=== PATIENT | female | born 1985 | race Caucasian/White ===

== ENCOUNTER 2017-05-29 02:26 | Emergency (ER) | payer SELFPAY ==
[~2017-05-29] VITALS: Ht 157.5 cm; Wt 56.7 kg
--- OUTSIDE RECORDS SUMMARY | 2017-05-29 02:34 | XMS REPORT | Continuity of Care Document ---
Author Author [facility] Organization [facility] Address Unknown Phone Unavailable Allergies Active Description Code Type Severity Reaction Onset Reported/Identified Relationship to Patient Clinical Status Yes ciprofloxacin ciprofloxacin Drug Allergy Unknown unknown 07/31/2016 Medications There is no data. Problems There is no data. Procedures There is no data. <section xmlns="urn:hl7-org:v3" xmlns:xsi="http:// www.[email or web address]/2001/XMLSchema-instance"> <templateId root= "[id number]" /> <templateId root= "[id number]" /> <code codeSystemName="LOINC" codeSystem= "[id number]" code="32369-0" displayName="Results" /> <title>Results< /title> <text> <table> <thead> <tr> <th>Test</th> <th>Result</th> <th>Range</th> </tr> </thead> < tbody> <tr> <th colspan="10">URINALYSIS, ROUTINE - 12/27/14 21: 55</th> </tr> <tr> <td>UA LEUKOCYTE ESTERASE DIPSTICK</td > <td>2+ </td> <td>NEGATIVE</td> </tr> <tr> <td>UA NITRITE DIPSTICK</td> <td>POSITIVE </td> <td> NEGATIVE</td> </tr> <tr> <td>UA PROTEIN DIPSTICK</td> <td>1+ </td> <td>NEGATIVE</td> </tr> <tr> <td>UA GLUCOSE DIPSTICK</td> <td>NEGATIVE </td> <td>NEGATIVE </td> </tr> <tr> <td>UA KETONE DIPSTICK</td> <td >NEGATIVE </td> <td>NEGATIVE</td> </tr> <tr> <td >UA UROBILINOGEN DIPSTICK</td> <td>NORMAL </td> <td>NORMAL</td > </tr> <tr> <td>UA BILIRUBIN DIPSTICK</td> <td> NEGATIVE </td> <td>NEGATIVE</td> </tr> <tr> <td> UA BLOOD DIPSTICK</td> <td>TRACE </td> <td>NEGATIVE</td> </tr> <tr> <td>UA SPECIFIC GRAVITY</td> <td>1.015 </ td> <td>1.015-1.025</td> </tr> <tr> <td>UR PH</ td> <td>6.0 </td> <td>5.0-7.0</td> </tr> <tr> <td>Microbiology</td> <td> </td> <td /> </tr> <tr> < colspan="10">UA MICROSCOPIC - 12/27/14 21:55</th> </tr> <tr> <td>UA EPITHELIAL CELLS</td> <td>2+ epi/ hpf</td> <td>0 - 1+</td> </tr> <tr> <td>UA RBC</ td> <td>0 rbc/hpf</td> <td>0 - 3</td> </tr> <tr > <td>UA VOLUME FOR EXAM</td> <td>12.0 mL</td> <td>( 12mL STD)</td> </tr> <tr> <td>UA WBC</td> <td>20 -50 wbc/hpf</td> <td>0 - 5</td> </tr> <tr> <td> WBC CLUMPS</td> <td>PRESENT </td> <td>NEGATIVE</td> </ tr> <tr> <th colspan="10">UR TEST - 12/27/14 21:55</th > </tr> <tr> <td>UR TEST</td> <td> NEGATIVE </td> <td>NEGATIVE</td> </tr> <tr> <td> Microbiology</td> <td> </td> <td /> </tr> <tr> <th colspan="10">UR TEST - 01/01/15 09:40</th> </tr> <tr> <td>UR TEST</td> <td>NEGATIVE </td> <td>NEGATIVE</td> </tr> <tr> <td>Microbiology</td> <td> </td> <td /> </tr> <tr> <th colspan="10">URINALYSIS, ROUTINE - 01/01/15 09:40</th> </tr> <tr> <td>UA LEUKOCYTE ESTERASE DIPSTICK</td> <td>TRACE </td> <td>NEGATIVE</td> </tr> <tr> <td>UA NITRITE DIPSTICK </td> <td>NEGATIVE </td> <td>NEGATIVE</td> </tr> <tr> <td>UA PROTEIN DIPSTICK</td> <td>2+ </td> <td> NEGATIVE</td> </tr> <tr> <td>UA GLUCOSE DIPSTICK</td> <td>NEGATIVE </td> <td>NEGATIVE</td> </tr> <tr> <td>UA KETONE DIPSTICK</td> <td>2+ </td> <td>NEGATIVE< /td> </tr> <tr> <td>UA UROBILINOGEN DIPSTICK</td> <td>2+ </td> <td>NORMAL</td> </tr> <tr> <td> UA BILIRUBIN DIPSTICK</td> <td>1+ </td> <td>NEGATIVE</td> </tr> <tr> <td>UA BLOOD DIPSTICK</td> <td>TRACE </ td> <td>NEGATIVE</td> </tr> <tr> <td>UA SPECIFIC GRAVITY</td> <td>1.015 </td> <td>1.015-1.025</td> </tr> <tr> <td>UR PH</td> <td>6.0 </td> < td>5.0-7.0</td> </tr> <tr> <td>Microbiology</td> <td> </td> <td /> </tr> <tr> <th colspan="10"> UA MICROSCOPIC - 01/01/15 09:40</th> </tr> <tr> <td>UA BACTERIA</td> <td>2+ </td> <td>NEGATIVE</td> </tr> <tr> <td>UA EPITHELIAL CELLS</td> <td>1+ epi/hpf</td> <td>0 - 1+</td> </tr> <tr> <td>UA MUCUS</td> <td>1+ </td> <td>NEG TO 1+</td> </tr> <tr> < td>UA RBC</td> <td>0-3 rbc/hpf</td> <td>0 - 3</td> </tr > <tr> <td>UA VOLUME FOR EXAM</td> <td>12.0 mL</td> <td>(12mL STD)</td> </tr> <tr> <td>UA WBC</td> <td>10-20 wbc/hpf</td> <td>0 - 5</td> </tr> <tr> <th colspan="10">CBC W/DIFF - 01/01/15 10:50</th> </tr> < tr> <td>COMMENT</td> <td>REVIEWED </td> <td /> </tr> <tr> <td>GRANULOCYTE #</td> <td>5.3 k/cumm</td > <td>2.0-9.0</td> </tr> <tr> <td>GRANULOCYTE &# 37;</td> <td>80 %</td> <td>50-75</td> </tr> <tr> <td>LYMPHOCYTE #</td> <td>0.9 k/cumm</td> <td> 1.0-4.0</td> </tr> <tr> <td>LYMPHOCYTE %</td> <td>14 %</td> <td>20-30</td> </tr> <tr> < td>MEAN CELL HGB</td> <td>21.0 pg</td> <td>27.0-33.0</td> </tr> <tr> <td>MEAN CELL HGB CONCENTRATION</td> <td >30.9 g/dL</td> <td>32.0-37.0</td> </tr> <tr> < td>MEAN CELL VOLUME</td> <td>67.8 fl</td> <td>80.0-100.0</td> </tr> <tr> <td>MONOCYTE #</td> <td>0.4 k/cumm</ td> <td>0.1-1.0</td> </tr> <tr> <td>MONOCYTE &# 37;</td> <td>6 %</td> <td>4-6</td> </tr> <tr > <td>OVALOCYTES</td> <td>NOTED </td> <td /> < /tr> <tr> <td>RED BLOOD CELL</td> <td>4.72 m/cumm</td> <td>4.00-6.00</td> </tr> <tr> <td>RED CELL DISTRIBUTION WIDTH</td> <td>22.4 %</td> <td>11.0-15.6</td > </tr> <tr> <td>WHITE BLOOD CELL</td> <td>6.6 k /cumm</td> <td>5.0-10.0</td> </tr> <tr> <td> HEMOGLOBIN</td> <td>9.9 gm/dL</td> <td>12.0-16.0</td> < /tr> <tr> <td>HEMATOCRIT</td> <td>32.0 %</td> <td>37.0-47.0</td> </tr> <tr> <td>PLATELET COUNT</td > <td>183 k/cumm</td> <td>150-450</td> </tr> <tr > <td>Microbiology</td> <td> </td> <td /> </tr > <tr> <th colspan="10">METABOLIC PANEL, BASIC - 01/01/15 10:50< /th> </tr> <tr> <td>POTASSIUM</td> <td>2.7 mmol/ L</td> <td>3.5-5.3</td> </tr> <tr> <td>EST GFR ( MDRD)</td> <td>> 60 mL/min</td> <td>> 59</td> </ tr> <tr> <td>ANION GAP</td> <td>12 mmol/L</td> <td>5-15</td> </tr> <tr> <td>EST CrCl (CG)</td> <td>> 60 mL/min</td> <td>> 59</td> </tr> <tr> <td>GLUCOSE</td> <td>78 mg/dL</td> <td>70-99</td> </tr> <tr> <td>CALCIUM</td> <td>9.5 mg/dL</td> <td>8.5-10.1</td> </tr> <tr> <td>BLOOD UREA NITROGEN</td> <td>14 mg/dL</td> <td>7-20</td> </tr> <tr> <td>CREATININE</td> <td>0.8 mg/dL</td> <td> 0.6-1.0</td> </tr> <tr> <td>SODIUM</td> <td>136 mmol/L</td> <td>135-148</td> </tr> <tr> <td> CHLORIDE</td> <td>97 mmol/L</td> <td>98-110</td> </tr> <tr> <td>CARBON DIOXIDE</td> <td>27 mmol/L</td> <td>21-32</td> </tr> <tr> <td>Microbiology</td> <td> </td> <td /> </tr> <tr> < colspan= "10">URINALYSIS, ROUTINE - 01/04/15 10:10</th> </tr> <tr> <td>UA LEUKOCYTE ESTERASE DIPSTICK</td> <td>NEGATIVE </td> < td>NEGATIVE</td> </tr> <tr> <td>UA NITRITE DIPSTICK</td> <td>NEGATIVE </td> <td>NEGATIVE</td> </tr> <tr > <td>UA PROTEIN DIPSTICK</td> <td>NEGATIVE </td> <td >NEGATIVE</td> </tr> <tr> <td>UA GLUCOSE DIPSTICK</td> <td>NEGATIVE </td> <td>NEGATIVE</td> </tr> <tr> <td>UA KETONE DIPSTICK</td> <td>2+ </td> <td>NEGATIVE </td> </tr> <tr> <td>UA UROBILINOGEN DIPSTICK</td> <td>NORMAL </td> <td>NORMAL</td> </tr> <tr> <td>UA BILIRUBIN DIPSTICK</td> <td>1+ </td> <td>NEGATIVE</td> </tr> <tr> <td>UA BLOOD DIPSTICK</td> <td> TRACE </td> <td>NEGATIVE</td> </tr> <tr> <td>UA SPECIFIC GRAVITY</td> <td>1.015 </td> <td>1.015-1.025</td> </tr> <tr> <td>UR PH</td> <td>6.0 </td> < td>5.0-7.0</td> </tr> <tr> <td>Microbiology</td> <td> </td> <td /> </tr> <tr> < colspan="10"> UA MICROSCOPIC - 01/04/15 10:10</th> </tr> <tr> <td>UA BACTERIA</td> <td>2+ </td> <td>NEGATIVE</td> </tr> <tr> <td>UA EPITHELIAL CELLS</td> <td>2+ epi/hpf</td> <td>0 - 1+</td> </tr> <tr> <td>UA MUCUS</td> <td>3+ </td> <td>NEG TO 1+</td> </tr> <tr> < td>UA RBC</td> <td>0-3 rbc/hpf</td> <td>0 - 3</td> </tr > <tr> <td>UA VOLUME FOR EXAM</td> <td>12.0 mL</td> <td>(12mL STD)</td> </tr> <tr> <td>UA WBC</td> <td>0-1 wbc/hpf</td> <td>0 - 5</td> </tr> <tr> < colspan="10">UR TEST - 01/04/15 10:11</th> </tr> <tr> <td>UR TEST</td> <td>NEGATIVE </td> <td>NEGATIVE</td> </tr> <tr> <td>Microbiology</td> <td> </td> <td /> </tr> <tr> < colspan ="10">CBC W/DIFF - 01/04/15 11:32</th> </tr> <tr> <td> BASOPHIL #</td> <td>0.0 k/cumm</td> <td>0.0-0.2</td> </ tr> <tr> <td>BASOPHIL %</td> <td>1 %</td> <td>0-1</td> </tr> <tr> <td>EOSINOPHIL #</td> <td>0.1 k/cumm</td> <td>0.1-0.5</td> </tr> <tr> <td>EOSINOPHIL %</td> <td>1 %</td> <td>2-4</td> </tr> <tr> <td>GRANULOCYTE #</td> <td>3.0 k/cumm </td> <td>2.0-9.0</td> </tr> <tr> <td> GRANULOCYTE %</td> <td>57 %</td> <td>50-75</td> </tr> <tr> <td>LYMPHOCYTE #</td> <td>1.8 k/cumm</td> <td>1.0-4.0</td> </tr> <tr> <td>LYMPHOCYTE &#37 ;</td> <td>34 %</td> <td>20-30</td> </tr> < tr> <td>MEAN CELL HGB</td> <td>20.4 pg</td> <td>27.0- 33.0</td> </tr> <tr> <td>MEAN CELL HGB CONCENTRATION</td > <td>30.3 g/dL</td> <td>32.0-37.0</td> </tr> < tr> <td>MEAN CELL VOLUME</td> <td>67.4 fl</td> <td> 80.0-100.0</td> </tr> <tr> <td>MONOCYTE #</td> < td>0.4 k/cumm</td> <td>0.1-1.0</td> </tr> <tr> < td>MONOCYTE %</td> <td>7 %</td> <td>4-6</td> </ tr> <tr> <td>OVALOCYTES</td> <td>NOTED </td> < td /> </tr> <tr> <td>RED BLOOD CELL</td> <td> 3.77 m/cumm</td> <td>4.00-6.00</td> </tr> <tr> < td>RED CELL DISTRIBUTION WIDTH</td> <td>22.0 %</td> <td> 11.0-15.6</td> </tr> <tr> <td>WHITE BLOOD CELL</td> <td>5.3 k/cumm</td> <td>5.0-10.0</td> </tr> <tr> <td>HEMOGLOBIN</td> <td>7.7 gm/dL</td> <td>12.0-16.0</ td> </tr> <tr> <td>HEMATOCRIT</td> <td>25.4 &#37 ;</td> <td>37.0-47.0</td> </tr> <tr> <td> PLATELET COUNT</td> <td>284 k/cumm</td> <td>150-400</td> </tr> <tr> <td>Microbiology</td> <td> </td> <td /> </tr> <tr> <th colspan="10"> TEST, SERUM - 01/04/15 11:32</th> </tr> <tr> <td> TEST , SERUM</td> <td>NEGATIVE </td> <td>NEGATIVE</td> </tr > <tr> <td>Microbiology</td> <td> </td> <td / > </tr> <tr> <th colspan="10">METABOLIC PANEL, COMPREHN - 01/04/15 11:32</th> </tr> <tr> <td>POTASSIUM</td> <td>3.5 mmol/L</td> <td>3.5-5.3</td> </tr> <tr> <td>EST GFR (MDRD)</td> <td>> 60 mL/min</td> <td>&gt ; 59</td> </tr> <tr> <td>ANION GAP</td> <td>8 mmol/L</td> <td>5-15</td> </tr> <tr> <td>EST CrCl (CG)</td> <td>> 60 mL/min</td> <td>> 59</td> </tr> <tr> <td>GLUCOSE</td> <td>79 mg/dL</td> <td>70-99</td> </tr> <tr> <td>CALCIUM</td> < td>8.6 mg/dL</td> <td>8.5-10.1</td> </tr> <tr> < td>BLOOD UREA NITROGEN</td> <td>9 mg/dL</td> <td>7-20</td> </tr> <tr> <td>CREATININE</td> <td>0.6 mg/dL</td> <td>0.6-1.0</td> </tr> <tr> <td>SODIUM</td> <td>139 mmol/L</td> <td>135-148</td> </tr> <tr> <td>CHLORIDE</td> <td>101 mmol/L</td> <td>98-110</td> </tr> <tr> <td>AST/SGOT</td> <td>38 Units/L</td > <td>10-37</td> </tr> <tr> <td>ALT/SGPT</td> <td>67 Units/L</td> <td>< 66</td> </tr> <tr> <td>CARBON DIOXIDE</td> <td>30 mmol/L</td> <td>21-32< /td> </tr> <tr> <td>TOTAL PROTEIN</td> <td>6.7 gm/dL</td> <td>6.4-8.2</td> </tr> <tr> <td> ALBUMIN</td> <td>2.9 gm/dL</td> <td>3.4-5.0</td> </tr> <tr> <td>BILI TOTAL</td> <td>0.3 mg/dL</td> < td>0.0-1.0</td> </tr> <tr> <td>ALKALINE PHOSPHATASE TOTAL </td> <td>149 IU/L</td> <td>45-117</td> </tr> < tr> <td>Microbiology</td> <td> </td> <td /> </ tr> <tr> < colspan="10">MAGNESIUM - 01/04/15 11:32</th> </tr> <tr> <td>MAGNESIUM</td> <td>1.8 mg/dL</td> <td>1.8-2.4</td> </tr> <tr> < colspan="10"> LIPASE - 01/04/15 11:32</th> </tr> <tr> <td>LIPASE</td> <td>123 Units/L</td> <td>73-393</td> </tr> <tr> < colspan="10">CHEM/HEM PROFILE-BEDSIDE - 01/04/15 12:02</th> </tr> <tr> <td>POTASSIUM</td> <td>3.4 mmol/L</td> <td>3.5-5.3</td> </tr> <tr> <td>METHOD</td> <td>Bedside </td> <td /> </tr> <tr> <td> ANION GAP</td> <td>17 mmol/L</td> <td>10-20</td> </tr> <tr> <td>METHOD</td> <td>Bedside </td> <td / > </tr> <tr> <td>GLUCOSE</td> <td>77 mg/dL</td> <td>70-99</td> </tr> <tr> <td>BLOOD UREA NITROGEN</td> <td>5 mg/dL</td> <td>7-20</td> </tr> <tr> <td>CREATININE</td> <td>0.6 mg/dL</td> <td> 0.6-1.0</td> </tr> <tr> <td>HEMOGLOBIN</td> <td> 8.5 gm/dL</td> <td>12.0-16.0</td> </tr> <tr> <td >HEMATOCRIT</td> <td>25.0 %</td> <td>37.0-47.0</td> </tr> <tr> <td>SODIUM</td> <td>138 mmol/L</td> <td>135-148</td> </tr> <tr> <td>CHLORIDE</td> <td>100 mmol/L</td> <td>98-110</td> </tr> <tr> <td>CARBON DIOXIDE</td> <td>25 mmol/L</td> <td>21-32</td> </tr> <tr> <td>CALCIUM IONIZED</td> <td>4.7 mg/ dL</td> <td>4.5-5.3</td> </tr> <tr> <td> Microbiology</td> <td> </td> <td /> </tr> <tr> <th colspan="10">URINALYSIS, NO REFLEX CULTURE - 12/28/15 19:43</th> </tr> <tr> <td>UA LEUKOCYTE ESTERASE DIPSTICK</td> <td>2+ </td> <td>NEGATIVE</td> </tr> <tr> <td >UA NITRITE DIPSTICK</td> <td>NEGATIVE </td> <td>NEGATIVE</td > </tr> <tr> <td>UA PROTEIN DIPSTICK</td> <td>1 + </td> <td>NEGATIVE</td> </tr> <tr> <td>UA GLUCOSE DIPSTICK</td> <td>NEGATIVE </td> <td>NEGATIVE</td> </tr> <tr> <td>UA KETONE DIPSTICK</td> <td> NEGATIVE </td> <td>NEGATIVE</td> </tr> <tr> <td> UA UROBILINOGEN DIPSTICK</td> <td>NORMAL </td> <td>NORMAL</td > </tr> <tr> <td>UA BILIRUBIN DIPSTICK</td> <td> NEGATIVE </td> <td>NEGATIVE</td> </tr> <tr> <td> UA BLOOD DIPSTICK</td> <td>1+ </td> <td>NEGATIVE</td> < /tr> <tr> <td>UA SPECIFIC GRAVITY</td> <td>1.010 </td> <td>1.015-1.025</td> </tr> <tr> <td>UR PH</td> <td>8.0 </td> <td>5.0-7.0</td> </tr> <tr> <th colspan="10">UA MICROSCOPIC - 12/28/15 19:43</th> </tr> < tr> <td>UA BACTERIA</td> <td>2+ </td> <td>NEGATIVE</ td> </tr> <tr> <td>UA EPITHELIAL CELLS</td> <td> 1+ epi/hpf</td> <td>0 - 1+</td> </tr> <tr> <td> UA MUCUS</td> <td>2+ </td> <td>NEG TO 1+</td> </tr> <tr> <td>UA RBC</td> <td>0-3 rbc/hpf</td> <td>0 - 3</td> </tr> <tr> <td>UA VOLUME FOR EXAM</td> <td>12.0 mL</td> <td>(12mL STD)</td> </tr> <tr> <td>UA WBC</td> <td>5-10 wbc/hpf</td> <td>0 - 5</td> </ tr> <tr> < colspan="10">CBC W/DIFF - 09/06/16 13:55</th> </tr> <tr> <td>BASOPHIL #</td> <td>0.0 k/cumm</td> <td>0.0-0.2</td> </tr> <tr> <td>BASOPHIL %</ td> <td>1 %</td> <td>0-1</td> </tr> <tr> <td>EOSINOPHIL #</td> <td>0.2 k/cumm</td> <td>0.1-0.5</ td> </tr> <tr> <td>EOSINOPHIL %</td> <td>4 & #37;</td> <td>2-4</td> </tr> <tr> <td> GRANULOCYTE #</td> <td>4.1 k/cumm</td> <td>2.0-9.0</td> </tr> <tr> <td>GRANULOCYTE %</td> <td>60 %</ td> <td>50-75</td> </tr> <tr> <td>LYMPHOCYTE #</ td> <td>1.9 k/cumm</td> <td>1.0-4.0</td> </tr> < tr> <td>LYMPHOCYTE %</td> <td>27 %</td> <td> 20-30</td> </tr> <tr> <td>MEAN CELL HGB</td> <td >30.0 pg</td> <td>27.0-33.0</td> </tr> <tr> <td> MEAN CELL HGB CONCENTRATION</td> <td>33.8 g/dL</td> <td>32.0- 37.0</td> </tr> <tr> <td>MEAN CELL VOLUME</td> < td>88.8 fl</td> <td>80.0-100.0</td> </tr> <tr> < td>MONOCYTE #</td> <td>0.6 k/cumm</td> <td>0.1-1.0</td> </tr> <tr> <td>MONOCYTE %</td> <td>9 %</td> <td>4-6</td> </tr> <tr> <td>RED BLOOD CELL</td> <td>3.57 m/cumm</td> <td>4.00-6.00</td> </tr> < tr> <td>RED CELL DISTRIBUTION WIDTH</td> <td>13.5 %</td> <td>11.0-15.6</td> </tr> <tr> <td>WHITE BLOOD CELL</td> <td>6.9 k/cumm</td> <td>5.0-10.0</td> </tr> <tr> <td>HEMOGLOBIN</td> <td>10.7 gm/dL</td> < td>12.0-16.0</td> </tr> <tr> <td>HEMATOCRIT</td> <td>31.7 %</td> <td>37.0-47.0</td> </tr> <tr> <td>PLATELET COUNT</td> <td>275 k/cumm</td> <td>150-450</ td> </tr> <tr> <th colspan="10"> TEST, SERUM - 09/06/16 13:55</th> </tr> <tr> <td> TEST, SERUM< /td> <td>NEGATIVE </td> <td>NEGATIVE</td> </tr> <tr> <th colspan="10">PROTHROMBIN TIME WITH INR - 09/06/16 13:55</th> </tr> <tr> <td>INTERNATIONAL NORMAL RATIO</td> < td>1.1 </td> <td>0.9-1.1</td> </tr> <tr> <td> PROTHROMBIN TIME</td> <td>12.3 sec</td> <td>10.0-12.9</td> </tr> <tr> <th colspan="10">PARTIAL THROMBOPLASTIN TIME - 09/06/16 13:55</th> </tr> <tr> <td>PARTIAL THROMBOPLASTIN TIME</td> <td>33 sec</td> <td>25-37</td> </tr> <tr> <th colspan="10">METABOLIC PANEL, COMPREHN - 13:55</th> </tr> <tr> <td>POTASSIUM</td> <td> 3.1 mmol/L</td> <td>3.5-5.3</td> </tr> <tr> <td> EST GFR (MDRD)</td> <td>> 60 mL/min</td> <td>> 59</td> </tr> <tr> <td>ANION GAP</td> <td>11 mmol/L</td > <td>5-15</td> </tr> <tr> <td>EST CrCl (CG)</td > <td>> 60 mL/min</td> <td>> 59</td> </tr> <tr> <td>GLUCOSE</td> <td>82 mg/dL</td> <td>70-99</ td> </tr> <tr> <td>CALCIUM</td> <td>9.0 mg/dL</ td> <td>8.5-10.1</td> </tr> <tr> <td>BLOOD UREA NITROGEN</td> <td>16 mg/dL</td> <td>7-20</td> </tr> <tr> <td>CREATININE</td> <td>0.9 mg/dL</td> <td> 0.6-1.0</td> </tr> <tr> <td>SODIUM</td> <td>144 mmol/L</td> <td>135-148</td> </tr> <tr> <td> CHLORIDE</td> <td>103 mmol/L</td> <td>98-110</td> </tr > <tr> <td>AST/SGOT</td> <td>14 Units/L</td> < td>10-37</td> </tr> <tr> <td>ALT/SGPT</td> <td> 9 Units/L</td> <td>< 66</td> </tr> <tr> <td> CARBON DIOXIDE</td> <td>30 mmol/L</td> <td>21-32</td> < /tr> <tr> <td>TOTAL PROTEIN</td> <td>6.8 gm/dL</td> <td>6.4-8.2</td> </tr> <tr> <td>ALBUMIN</td> <td>3.6 gm/dL</td> <td>3.4-5.0</td> </tr> <tr> <td>BILI TOTAL</td> <td>0.3 mg/dL</td> <td>0.0-1.0</td> </tr> <tr> <td>ALKALINE PHOSPHATASE TOTAL</td> < td>66 IU/L</td> <td>45-117</td> </tr> <tr> <th colspan="10">THYROID STIM HORMONE (TSH) - 09/06/16 13:55</th> </tr> <tr> <td>THYROID STIM HORMONE (TSH)</td> <td>2.48 uIU/mL</ td> <td>0.34-4.82</td> </tr> </tbody> </table> </text> <entry> <organizer moodCode="EVN" classCode="BATTERY"> <templateId root="[id number]" /> <id nullFlavor="NA" /> <code codeSystem="local" code="UA" displayName="URINALYSIS, ROUTINE" /> < statusCode code="completed" /> <component> <observation moodCode= "EVN" classCode="OBS"> <templateId root="06.27.840.1.567117.10..4.2 " /> <id nullFlavor="NA" /> <code codeSystem="local" code= "LEUESU" displayName="UA LEUKOCYTE ESTERASE DIPSTICK" /> <statusCode code="completed" /> <effectiveTime value="" /> < value unit="" xsi:type="PQ" value="2+" /> <interpretationCode codeSystem="local" code="*" /> <referenceRange> < observationRange> <text>NEGATIVE</text> </ observationRange> </referenceRange> </observation> </ component> <component> <observation moodCode="EVN" classCode="OBS"> <templateId root="[id number]" /> <id nullFlavor="NA" /> <code codeSystem="local" code="NITRIU" displayName= "UA NITRITE DIPSTICK" /> <statusCode code="completed" /> < effectiveTime value="" /> <value unit="" xsi:type="PQ" value="POSITIVE" /> <interpretationCode codeSystem="local" code="*" /> <referenceRange> <observationRange> <text> NEGATIVE</text> </observationRange> </referenceRange> </observation> </component> <component> <observation moodCode ="EVN" classCode="OBS"> <templateId root= "[id number]2.4.2" /> <id nullFlavor="NA" /> < code codeSystem="local" code="PROTEIU" displayName="UA PROTEIN DIPSTICK" /> <statusCode code="completed" /> <effectiveTime value= "[id number]" /> <value unit="" xsi:type="PQ" value="1+" /> < interpretationCode codeSystem="local" code="*" /> <referenceRange> <observationRange> <text>NEGATIVE</text> </ observationRange> </referenceRange> </observation> </ component> <component> <observation moodCode="EVN" classCode="OBS"> <templateId root="06.27.840.1.040808.02.28.22.4.2" /> <id nullFlavor="NA" /> <code codeSystem="local" code="DGLUU" displayName= "UA GLUCOSE DIPSTICK" /> <statusCode code="completed" /> < effectiveTime value="069980932293" /> <value unit="" xsi:type="PQ" value="NEGATIVE" /> <referenceRange> <observationRange> <text>NEGATIVE</text> </observationRange> </ referenceRange> </observation> </component> <component> <observation moodCode="EVN" classCode="OBS"> <templateId root= "06.27.840.1.069357.02.28.22.4.2" /> <id nullFlavor="NA" /> < code codeSystem="local" code="KETONU" displayName="UA KETONE DIPSTICK" /> <statusCode code="completed" /> <effectiveTime value="[id number] " /> <value unit="" xsi:type="PQ" value="NEGATIVE" /> < referenceRange> <observationRange> <text>NEGATIVE</text > </observationRange> </referenceRange> </observation > </component> <component> <observation moodCode="EVN" classCode="OBS"> <templateId root="06.27.840.1.104508.22.4.2" /> <id nullFlavor="NA" /> <code codeSystem="local" code="UROBILU " displayName="UA UROBILINOGEN DIPSTICK" /> <statusCode code="completed " /> <effectiveTime value="" /> <value unit="" xsi :type="PQ" value="NORMAL" /> <referenceRange> < observationRange> <text>NORMAL</text> </observationRange > </referenceRange> </observation> </component> < component> <observation moodCode="EVN" classCode="OBS"> < templateId root="2.16.840.1.620561.10..22.4.2" /> <id nullFlavor="NA " /> <code codeSystem="local" code="BILU" displayName="UA BILIRUBIN DIPSTICK" /> <statusCode code="completed" /> <effectiveTime value="" /> <value unit="" xsi:type="PQ" value="NEGATIVE" / > <referenceRange> <observationRange> <text> NEGATIVE</text> </observationRange> </referenceRange> </observation> </component> <component> <observation moodCode ="EVN" classCode="OBS"> <templateId root= "2.16.840.1.924323.10..22.4.2" /> <id nullFlavor="NA" /> < code codeSystem="local" code="NOLVIA" displayName="UA BLOOD DIPSTICK" /> < statusCode code="completed" /> <effectiveTime value="" /> <value unit="" xsi:type="PQ" value="TRACE" /> < interpretationCode codeSystem="local" code="*" /> <referenceRange> <observationRange> <text>NEGATIVE</text> </ observationRange> </referenceRange> </observation> </ component> <component> <observation moodCode="EVN" classCode="OBS"> <templateId root="16.840.1.146059.10.20.22.4.2" /> <id nullFlavor="NA" /> <code codeSystem="local" code="SPGRU" displayName= "UA SPECIFIC GRAVITY" /> <statusCode code="completed" /> < effectiveTime value="[id number]" /> <value unit="" xsi:type="PQ" value="1.015" /> <referenceRange> <observationRange> <text>1.015-1.025</text> </observationRange> </ referenceRange> </observation> </component> <component> <observation moodCode="EVN" classCode="OBS"> <templateId root= "06.27.840.1.286272.10.22.4.2" /> <id nullFlavor="NA" /> < code codeSystem="local" code="DIETER" displayName="UR PH" /> <statusCode code="completed" /> <effectiveTime value="136306586119" /> < value unit="" xsi:type="PQ" value="6.0" /> <referenceRange> <observationRange> <text>5.0-7.0</text> </ observationRange> </referenceRange> </observation> </ component> <component> <observation moodCode="EVN" classCode="OBS"> <templateId root="06.27.840.1.269482.10.20.22.4.2" /> <id nullFlavor="NA" /> <code codeSystem="local" code="MB" displayName= "Microbiology" /> <statusCode code="completed" /> < effectiveTime value="025964688014" /> <value unit="" xsi:type="PQ" value="" /> <referenceRange> <observationRange> <text /> </observationRange> </referenceRange> </ observation> </component> </organizer> </entry> <entry> <organizer moodCode="EVN" classCode="BATTERY"> <templateId root= "216.840.1.268363.10..22.4.1" /> <id nullFlavor="NA" /> <code codeSystem="local" code="UAMICRO" displayName="UA MICROSCOPIC" /> < statusCode code="completed" /> <component> <observation moodCode= "EVN" classCode="OBS"> <templateId root="216.840.1.423417.10..22.4.2 " /> <id nullFlavor="NA" /> <code codeSystem="local" code= "EPIU" displayName="UA EPITHELIAL CELLS" /> <statusCode code="completed " /> <effectiveTime value="[id number]" /> <value unit="epi/ hpf" xsi:type="PQ" value="2+" /> <interpretationCode codeSystem="local " code="*" /> <referenceRange> <observationRange> <text>0 - 1+</text> </observationRange> </referenceRange > </observation> </component> <component> <observation moodCode="EVN" classCode="OBS"> <templateId root= "216.840.1.342424.10...4.2" /> <id nullFlavor="NA" /> < code codeSystem="local" code="RBCU" displayName="UA RBC" /> < statusCode code="completed" /> <effectiveTime value="[id number]" /> <value unit="rbc/hpf" xsi:type="PQ" value="0" /> < referenceRange> <observationRange> <text>0 - 3</text> </observationRange> </referenceRange> </observation> </component> <component> <observation moodCode="EVN" classCode= "OBS"> <templateId root="16.840.1.644811.10..22.4.2" /> < id nullFlavor="NA" /> <code codeSystem="local" code="UAVOL" displayName ="UA VOLUME FOR EXAM" /> <statusCode code="completed" /> < effectiveTime value="" /> <value unit="mL" xsi:type="PQ" value="12.0" /> <referenceRange> <observationRange> <text>(12mL STD)</text> </observationRange> </ referenceRange> </observation> </component> <component> <observation moodCode="EVN" classCode="OBS"> <templateId root= "06.27.840.1.485280.10..4.2" /> <id nullFlavor="NA" /> < code codeSystem="local" code="WBCU" displayName="UA WBC" /> < statusCode code="completed" /> <effectiveTime value="" /> <value unit="wbc/hpf" xsi:type="PQ" value="20-50" /> < interpretationCode codeSystem="local" code="*" /> <referenceRange> <observationRange> <text>0 - 5</text> </ observationRange> </referenceRange> </observation> </ component> <component> <observation moodCode="EVN" classCode="OBS"> <templateId root="06.27.840.1.727341.10..22.4.2" /> <id nullFlavor="NA" /> <code codeSystem="local" code="WBCCLUMPS" displayName="WBC CLUMPS" /> <statusCode code="completed" /> < effectiveTime value="" /> <value unit="" xsi:type="PQ" value="PRESENT" /> <interpretationCode codeSystem="local" code="*" /> <referenceRange> <observationRange> <text> NEGATIVE</text> </observationRange> </referenceRange> </observation> </component> </organizer> </entry> <entry> < organizer moodCode="EVN" classCode="BATTERY"> <templateId root= "216.840.1.537050.10..22.4.1" /> <id nullFlavor="NA" /> <code codeSystem="local" code="PREGU" displayName="UR TEST" /> < statusCode code="completed" /> <component> <observation moodCode= "EVN" classCode="OBS"> <templateId root="216.840.1.658929.10..22.4.2 " /> <id nullFlavor="NA" /> <code codeSystem="local" code= "PREGU" displayName="UR TEST" /> <statusCode code="completed " /> <effectiveTime value="311980884393" /> <value unit="" xsi :type="PQ" value="NEGATIVE" /> <referenceRange> < observationRange> <text>NEGATIVE</text> </ observationRange> </referenceRange> </observation> </ component> <component> <observation moodCode="EVN" classCode="OBS"> <templateId root="216.840.1.785216.10..22.4.2" /> <id nullFlavor="NA" /> <code codeSystem="local" code="MB" displayName= "Microbiology" /> <statusCode code="completed" /> < effectiveTime value="136461592565" /> <value unit="" xsi:type="PQ" value="" /> <referenceRange> <observationRange> <text /> </observationRange> </referenceRange> </ observation> </component> </organizer> </entry> <entry> <organizer moodCode="EVN" classCode="BATTERY"> <templateId root= "216.840.1.922756.10.20.22.4.1" /> <id nullFlavor="NA" /> <code codeSystem="local" code="PREGU" displayName="UR TEST" /> < statusCode code="completed" /> <component> <observation moodCode= "EVN" classCode="OBS"> <templateId root="216.840.1.988916.10.20.22.4.2 " /> <id nullFlavor="NA" /> <code codeSystem="local" code= "PREGU" displayName="UR TEST" /> <statusCode code="completed " /> <effectiveTime value="196827216843" /> <value xsi:type= "ST" value="<pre><b>UR TEST</b> NEGATIVE</pre>" /> < referenceRange> <observationRange> <text>NEGATIVE</text > </observationRange> </referenceRange> </observation > </component> <component> <observation moodCode="EVN" classCode="OBS"> <templateId root="216.840.1.979320.10.20.22.4.2" /> <id nullFlavor="NA" /> <code codeSystem="local" code="MB" displayName="Microbiology" /> <statusCode code="completed" /> <effectiveTime value="933987523004" /> <value xsi:type="ST" value="<pre ><b>UR TEST</b> NEGATIVE</pre>" /> <referenceRange> <observationRange> <text /> </observationRange> </referenceRange> </observation> </component> </organizer> </entry> <entry> <organizer moodCode="EVN" classCode="BATTERY"> < templateId root="840.1.390350.10..22.4.1" /> <id nullFlavor="NA" /> <code codeSystem="local" code="UA" displayName="URINALYSIS, ROUTINE" /> <statusCode code="completed" /> <component> <observation moodCode="EVN" classCode="OBS"> <templateId root= "840.1.749524.02.28.22.4.2" /> <id nullFlavor="NA" /> < code codeSystem="local" code="LEUESU" displayName="UA LEUKOCYTE ESTERASE DIPSTICK" /> <statusCode code="completed" /> <effectiveTime value="473389045167" /> <value unit="" xsi:type="PQ" value="TRACE" /> <referenceRange> <observationRange> <text> NEGATIVE</text> </observationRange> </referenceRange> </observation> </component> <component> <observation moodCode ="EVN" classCode="OBS"> <templateId root= "840.1.120955.02.28.22.4.2" /> <id nullFlavor="NA" /> < code codeSystem="local" code="NITRIU" displayName="UA NITRITE DIPSTICK" /> <statusCode code="completed" /> <effectiveTime value="527423283075 " /> <value unit="" xsi:type="PQ" value="NEGATIVE" /> < referenceRange> <observationRange> <text>NEGATIVE</text > </observationRange> </referenceRange> </observation > </component> <component> <observation moodCode="EVN" classCode="OBS"> <templateId root="06.27.840.1.533080...4.2" /> <id nullFlavor="NA" /> <code codeSystem="local" code="PROTEIU " displayName="UA PROTEIN DIPSTICK" /> <statusCode code="completed" /> <effectiveTime value="732044508977" /> <value unit="" xsi: type="PQ" value="2+" /> <interpretationCode codeSystem="local" code="* " /> <referenceRange> <observationRange> <text> NEGATIVE</text> </observationRange> </referenceRange> </observation> </component> <component> <observation moodCode ="EVN" classCode="OBS"> <templateId root= "216.840.1.395314.10..22.4.2" /> <id nullFlavor="NA" /> < code codeSystem="local" code="DGLUU" displayName="UA GLUCOSE DIPSTICK" /> <statusCode code="completed" /> <effectiveTime value="160748789694 " /> <value unit="" xsi:type="PQ" value="NEGATIVE" /> < referenceRange> <observationRange> <text>NEGATIVE</text > </observationRange> </referenceRange> </observation > </component> <component> <observation moodCode="EVN" classCode="OBS"> <templateId root="216.840.1.863732.10..22.4.2" /> <id nullFlavor="NA" /> <code codeSystem="local" code="KETONU" displayName="UA KETONE DIPSTICK" /> <statusCode code="completed" /> <effectiveTime value="613055974357" /> <value unit="" xsi:type= "PQ" value="2+" /> <interpretationCode codeSystem="local" code="*" /> <referenceRange> <observationRange> <text> NEGATIVE</text> </observationRange> </referenceRange> </observation> </component> <component> <observation moodCode ="EVN" classCode="OBS"> <templateId root= "06.27.840.1.446083.10..22.4.2" /> <id nullFlavor="NA" /> < code codeSystem="local" code="UROBILU" displayName="UA UROBILINOGEN DIPSTICK" / > <statusCode code="completed" /> <effectiveTime value= "281591509408" /> <value unit="" xsi:type="PQ" value="2+" /> < referenceRange> <observationRange> <text>NORMAL</text> </observationRange> </referenceRange> </observation> </component> <component> <observation moodCode="EVN" classCode ="OBS"> <templateId root="06.27.840.1.557839...4.2" /> < id nullFlavor="NA" /> <code codeSystem="local" code="BILU" displayName= "UA BILIRUBIN DIPSTICK" /> <statusCode code="completed" /> < effectiveTime value="843078447653" /> <value unit="" xsi:type="PQ" value="1+" /> <interpretationCode codeSystem="local" code="*" /> <referenceRange> <observationRange> <text>NEGATIVE</ text> </observationRange> </referenceRange> </ observation> </component> <component> <observation moodCode= "EVN" classCode="OBS"> <templateId root="06.27.840.1.286133.10...4.2 " /> <id nullFlavor="NA" /> <code codeSystem="local" code="NOLVIA " displayName="UA BLOOD DIPSTICK" /> <statusCode code="completed" /> <effectiveTime value="289963366852" /> <value unit="" xsi:type= "PQ" value="TRACE" /> <interpretationCode codeSystem="local" code="*" / > <referenceRange> <observationRange> <text> NEGATIVE</text> </observationRange> </referenceRange> </observation> </component> <component> <observation moodCode ="EVN" classCode="OBS"> <templateId root= "06.27.840.1.357401.10..4.2" /> <id nullFlavor="NA" /> < code codeSystem="local" code="SPGRU" displayName="UA SPECIFIC GRAVITY" /> <statusCode code="completed" /> <effectiveTime value="719111302983 " /> <value unit="" xsi:type="PQ" value="1.015" /> < referenceRange> <observationRange> <text>1.015-1.025</ text> </observationRange> </referenceRange> </ observation> </component> <component> <observation moodCode= "EVN" classCode="OBS"> <templateId root="06.27.840.1.441332.02.28.22.4.2 " /> <id nullFlavor="NA" /> <code codeSystem="local" code="DIETER " displayName="UR PH" /> <statusCode code="completed" /> < effectiveTime value="816275885888" /> <value unit="" xsi:type="PQ" value="6.0" /> <referenceRange> <observationRange> <text>5.0-7.0</text> </observationRange> </ referenceRange> </observation> </component> <component> <observation moodCode="EVN" classCode="OBS"> <templateId root= "06.27.840.1.988509.10.4.2" /> <id nullFlavor="NA" /> < code codeSystem="local" code="MB" displayName="Microbiology" /> < statusCode code="completed" /> <effectiveTime value="763656363456" /> <value unit="" xsi:type="PQ" value="" /> <referenceRange> <observationRange> <text /> </observationRange> </referenceRange> </observation> </component> </ organizer> </entry> <entry> <organizer moodCode="EVN" classCode="BATTERY"> <templateId root="06.27.840.1.427761.10.4.1" /> <id nullFlavor= "NA" /> <code codeSystem="local" code="UAMICRO" displayName="UA MICROSCOPIC " /> <statusCode code="completed" /> <component> <observation moodCode="EVN" classCode="OBS"> <templateId root= "16.840.1.231294...4.2" /> <id nullFlavor="NA" /> < code codeSystem="local" code="BACU" displayName="UA BACTERIA" /> < statusCode code="completed" /> <effectiveTime value="126337472457" /> <value unit="" xsi:type="PQ" value="2+" /> < interpretationCode codeSystem="local" code="*" /> <referenceRange> <observationRange> <text>NEGATIVE</text> </ observationRange> </referenceRange> </observation> </ component> <component> <observation moodCode="EVN" classCode="OBS"> <templateId root="06.27.840.1.452867.02.28.22.4.2" /> <id nullFlavor="NA" /> <code codeSystem="local" code="EPIU" displayName=" UA EPITHELIAL CELLS" /> <statusCode code="completed" /> < effectiveTime value="341462198956" /> <value unit="epi/hpf" xsi:type= "PQ" value="1+" /> <referenceRange> <observationRange> <text>0 - 1+</text> </observationRange> </ referenceRange> </observation> </component> <component> <observation moodCode="EVN" classCode="OBS"> <templateId root= "216.840.1.697528.10..4.2" /> <id nullFlavor="NA" /> < code codeSystem="local" code="MUCUSU" displayName="UA MUCUS" /> < statusCode code="completed" /> <effectiveTime value="942382203831" /> <value unit="" xsi:type="PQ" value="1+" /> <referenceRange> <observationRange> <text>NEG TO 1+</text> </ observationRange> </referenceRange> </observation> </ component> <component> <observation moodCode="EVN" classCode="OBS"> <templateId root="06.27.840.1.514745.02.28.22.4.2" /> <id nullFlavor="NA" /> <code codeSystem="local" code="RBCU" displayName=" UA RBC" /> <statusCode code="completed" /> <effectiveTime value="101348056068" /> <value unit="rbc/hpf" xsi:type="PQ" value="0-3 " /> <referenceRange> <observationRange> <text> 0 - 3</text> </observationRange> </referenceRange> </ observation> </component> <component> <observation moodCode= "EVN" classCode="OBS"> <templateId root="06.27.840.1.917828.10.4.2 " /> <id nullFlavor="NA" /> <code codeSystem="local" code= "UAVOL" displayName="UA VOLUME FOR EXAM" /> <statusCode code="completed " /> <effectiveTime value="612058146996" /> <value unit="mL" xsi:type="PQ" value="12.0" /> <referenceRange> < observationRange> <text>(12mL STD)</text> </ observationRange> </referenceRange> </observation> </ component> <component> <observation moodCode="EVN" classCode="OBS"> <templateId root="06.27.840.1.315619.02.28.22.4.2" /> <id nullFlavor="NA" /> <code codeSystem="local" code="WBCU" displayName=" UA WBC" /> <statusCode code="completed" /> <effectiveTime value="517865370224" /> <value unit="wbc/hpf" xsi:type="PQ" value="10- 20" /> <interpretationCode codeSystem="local" code="*" /> < referenceRange> <observationRange> <text>0 - 5</text> </observationRange> </referenceRange> </observation> </component> </organizer> </entry> <entry> <organizer moodCode="EVN " classCode="BATTERY"> <templateId root="16.840.1.928401.02.28.22.4.1" / > <id nullFlavor="NA" /> <code codeSystem="local" code="CBCD" displayName="CBC W/DIFF" /> <statusCode code="completed" /> <component > <observation moodCode="EVN" classCode="OBS"> <templateId root= "06.27.840.1.505814.02.28.22.4.2" /> <id nullFlavor="NA" /> < code codeSystem="local" code="CBCCOM" displayName="COMMENT" /> < statusCode code="completed" /> <effectiveTime value="755235882069" /> <value xsi:type="ST" value="<pre><b>CBC W/DIFF</b> 6.72.932.067.821.030.922.1300153326..4NOTEDREVIEWED</pre>" /> <referenceRange> <observationRange> <text /> </observationRange> </referenceRange> </observation> </ component> <component> <observation moodCode="EVN" classCode="OBS"> <templateId root="2.16.840.1.534784.10..4.2" /> <id nullFlavor="NA" /> <code codeSystem="local" code="GR#" displayName= "GRANULOCYTE #" /> <statusCode code="completed" /> < effectiveTime value="524565736612" /> <value xsi:type="ST" value="<pre> <b>CBC W/DIFF</b> 72.932.067.821.030.922.2808334887.4NOTEDREVIEWED</ pre>" /> <referenceRange> <observationRange> < text>2.0-9.0</text> </observationRange> </referenceRange> </observation> </component> <component> <observation moodCode="EVN" classCode="OBS"> <templateId root= "2.16.840.1.880919...4.2" /> <id nullFlavor="NA" /> < code codeSystem="local" code="GR%" displayName="GRANULOCYTE %" /> <statusCode code="completed" /> <effectiveTime value="023366791954 " /> <value xsi:type="ST" value="<pre><b>CBC W/DIFF</b> 6.729.932.067.821.030.922.4287696515..4NOTEDREVIEWED</pre>" /> <interpretationCode codeSystem="local" code="*" /> <referenceRange> <observationRange> <text>50-75</text> </ observationRange> </referenceRange> </observation> </ component> <component> <observation moodCode="EVN" classCode="OBS"> <templateId root="2.16.840.1.556931.10...4.2" /> <id nullFlavor="NA" /> <code codeSystem="local" code="LY#" displayName= "LYMPHOCYTE #" /> <statusCode code="completed" /> < effectiveTime value="764978146257" /> <value xsi:type="ST" value="<pre> <b>CBC W/DIFF</b> 6729.932.067.821.030.922.7795747108.4NOTEDREVIEWED</ pre>" /> <interpretationCode codeSystem="local" code="*" /> < referenceRange> <observationRange> <text>1.0-4.0</text> </observationRange> </referenceRange> </observation > </component> <component> <observation moodCode="EVN" classCode="OBS"> <templateId root="2.16.840.1.547787.10...4.2" /> <id nullFlavor="NA" /> <code codeSystem="local" code="LY% " displayName="LYMPHOCYTE %" /> <statusCode code="completed" /> <effectiveTime value="135705791182" /> <value xsi:type="ST" value="<pre><b>CBC W/DIFF</b> 6729.932.067.821.030.922.7586727670.4NOTEDREVIEWED</pre>" /> <interpretationCode codeSystem="local" code="*" /> <referenceRange> <observationRange> <text>20-30</text> </ observationRange> </referenceRange> </observation> </ component> <component> <observation moodCode="EVN" classCode="OBS"> <templateId root="2.16.840.1.536832.10...4.2" /> <id nullFlavor="NA" /> <code codeSystem="local" code="MCH" displayName= "MEAN CELL HGB" /> <statusCode code="completed" /> < effectiveTime value="421229596444" /> <value xsi:type="ST" value="<pre> <b>CBC W/DIFF</b> 6.64729.932.067.821.030.922.8349071835..4NOTEDREVIEWED</ pre>" /> <interpretationCode codeSystem="local" code="*" /> < referenceRange> <observationRange> <text>27.0-33.0</text > </observationRange> </referenceRange> </observation > </component> <component> <observation moodCode="EVN" classCode="OBS"> <templateId root="2.16.840.1.798175.10...4.2" /> <id nullFlavor="NA" /> <code codeSystem="local" code="MCHC" displayName="MEAN CELL HGB CONCENTRATION" /> <statusCode code= "completed" /> <effectiveTime value="786002476164" /> <value xsi:type="ST" value="<pre><b>CBC W/DIFF</b> 6.64.729.932.067.821.030.922.8311379666.90.4NOTEDREVIEWED</pre>" /> <interpretationCode codeSystem="local" code="*" /> <referenceRange> <observationRange> <text>32.0-37.0</text> </ observationRange> </referenceRange> </observation> </ component> <component> <observation moodCode="EVN" classCode="OBS"> <templateId root="2.16.840.1.508438.10.20.22.4.2" /> <id nullFlavor="NA" /> <code codeSystem="local" code="MCV" displayName= "MEAN CELL VOLUME" /> <statusCode code="completed" /> < effectiveTime value="344771963567" /> <value xsi:type="ST" value="<pre> <b>CBC W/DIFF</b> 6729.932.067.821.030.922.7742129764..4NOTEDREVIEWED</ pre>" /> <interpretationCode codeSystem="local" code="*" /> < referenceRange> <observationRange> <text>80.0-100.0</ text> </observationRange> </referenceRange> </ observation> </component> <component> <observation moodCode= "EVN" classCode="OBS"> <templateId root="2.16.840.1.975355.10..22.4.2 " /> <id nullFlavor="NA" /> <code codeSystem="local" code="MO# " displayName="MONOCYTE #" /> <statusCode code="completed" /> <effectiveTime value="574669600324" /> <value xsi:type="ST" value="<pre ><b>CBC W/DIFF</b> 6.64.729.932.067.821.030.922.0003688041.90.4NOTEDREVIEWED< /pre>" /> <referenceRange> <observationRange> < text>0.1-1.0</text> </observationRange> </referenceRange> </observation> </component> <component> <observation moodCode="EVN" classCode="OBS"> <templateId root= "2.16.840.1.311209.10..22.4.2" /> <id nullFlavor="NA" /> < code codeSystem="local" code="MO%" displayName="MONOCYTE %" /> <statusCode code="completed" /> <effectiveTime value="431652377531" /> <value xsi:type="ST" value="<pre><b>CBC W/DIFF</b> 6.64.729.932.067.821.030.922.4650952304..4NOTEDREVIEWED</pre>" /> <referenceRange> <observationRange> <text>4-6</text> </observationRange> </referenceRange> </observation> </component> <component> <observation moodCode="EVN" classCode= "OBS"> <templateId root="2.16.840.1.150997.10..22.4.2" /> < id nullFlavor="NA" /> <code codeSystem="local" code="OVAL" displayName= "OVALOCYTES" /> <statusCode code="completed" /> < effectiveTime value="065097500578" /> <value xsi:type="ST" value="<pre> <b>CBC W/DIFF</b> 6.64.729.932.067.821.030.922.7593548377..4NOTEDREVIEWED</ pre>" /> <referenceRange> <observationRange> < text /> </observationRange> </referenceRange> </ observation> </component> <component> <observation moodCode= "EVN" classCode="OBS"> <templateId root="2.840.1.549965.10.20.22.4.2 " /> <id nullFlavor="NA" /> <code codeSystem="local" code="RBC " displayName="RED BLOOD CELL" /> <statusCode code="completed" /> <effectiveTime value="917502653071" /> <value xsi:type="ST" value= "<pre><b>CBC W/DIFF</b> 6.64.729.932.067.821.030.922.1960652593..4NOTEDREVIEWED</pre>" /> <referenceRange> <observationRange> <text>4.00-6.00</ text> </observationRange> </referenceRange> </ observation> </component> <component> <observation moodCode= "EVN" classCode="OBS"> <templateId root="2.16.840.1.130958.10..22.4.2 " /> <id nullFlavor="NA" /> <code codeSystem="local" code="RDW " displayName="RED CELL DISTRIBUTION WIDTH" /> <statusCode code= "completed" /> <effectiveTime value="628031368199" /> <value xsi:type="ST" value="<pre><b>CBC W/DIFF</b> 6.64.729.932.067.821.030.922.9985042989.4NOTEDREVIEWED</pre>" /> <interpretationCode codeSystem="local" code="*" /> <referenceRange> <observationRange> <text>11.0-15.6</text> </ observationRange> </referenceRange> </observation> </ component> <component> <observation moodCode="EVN" classCode="OBS"> <templateId root="2.16.840.1.564491.10.20.22.4.2" /> <id nullFlavor="NA" /> <code codeSystem="local" code="WBC" displayName= "WHITE BLOOD CELL" /> <statusCode code="completed" /> < effectiveTime value="579753473305" /> <value xsi:type="ST" value="<pre> <b>CBC W/DIFF</b> 6.64.729.932.067.821.030.922.8594873426..4NOTEDREVIEWED</ pre>" /> <referenceRange> <observationRange> < text>5.0-10.0</text> </observationRange> </referenceRange> </observation> </component> <component> <observation moodCode="EVN" classCode="OBS"> <templateId root= "216.840.1.887792.10.20.22.4.2" /> <id nullFlavor="NA" /> < code codeSystem="local" code="HGBT" displayName="HEMOGLOBIN" /> < statusCode code="completed" /> <effectiveTime value="574083286803" /> <value xsi:type="ST" value="<pre><b>CBC W/DIFF</b> 6.64.729.932.067.821.030.922.8402103165..4NOTEDREVIEWED</pre>" /> <interpretationCode codeSystem="local" code="*" /> <referenceRange> <observationRange> <text>12.0-16.0</text> </ observationRange> </referenceRange> </observation> </ component> <component> <observation moodCode="EVN" classCode="OBS"> <templateId root="16.840.1.578472.10.20.22.4.2" /> <id nullFlavor="NA" /> <code codeSystem="local" code="HCTT" displayName= "HEMATOCRIT" /> <statusCode code="completed" /> < effectiveTime value="850480248854" /> <value xsi:type="ST" value="<pre> <b>CBC W/DIFF</b> 6.64.729.932.067.821.030.922.4758050650...4NOTEDREVIEWED</ pre>" /> <interpretationCode codeSystem="local" code="*" /> < referenceRange> <observationRange> <text>37.0-47.0</text > </observationRange> </referenceRange> </observation > </component> <component> <observation moodCode="EVN" classCode="OBS"> <templateId root="2.16.840.1.857467.10..22.4.2" /> <id nullFlavor="NA" /> <code codeSystem="local" code="PLT" displayName="PLATELET COUNT" /> <statusCode code="completed" /> <effectiveTime value="456118215122" /> <value xsi:type="ST" value="< pre><b>CBC W/DIFF</b> 6.64729.932.067.821.030.922.2890213566..90.4NOTEDREVIEWED</pre>" /> <referenceRange> <observationRange> <text>150-450</text > </observationRange> </referenceRange> </observation > </component> <component> <observation moodCode="EVN" classCode="OBS"> <templateId root="216.840.1.088830.10..22.4.2" /> <id nullFlavor="NA" /> <code codeSystem="local" code="MB" displayName="Microbiology" /> <statusCode code="completed" /> <effectiveTime value="733266877556" /> <value xsi:type="ST" value="<pre ><b>CBC W/DIFF</b> 6.64.729.932.067.821.030.922.0069702908.30.90.4NOTEDREVIEWED< /pre>" /> <referenceRange> <observationRange> < text /> </observationRange> </referenceRange> </ observation> </component> </organizer> </entry> <entry> <organizer moodCode="EVN" classCode="BATTERY"> <templateId root= "16.840.1.062075.10.20.22.4.1" /> <id nullFlavor="NA" /> <code codeSystem="local" code="METAB" displayName="METABOLIC PANEL, BASIC" /> < statusCode code="completed" /> <component> <observation moodCode= "EVN" classCode="OBS"> <templateId root="06.27.840.1.999448.10..22.4.2 " /> <id nullFlavor="NA" /> <code codeSystem="local" code="K" displayName="POTASSIUM" /> <statusCode code="completed" /> < effectiveTime value="081811609069" /> <value xsi:type="ST" value="<pre> <b>METABOLIC PANEL, BASIC</b> 1362.235271417133.8> 60> 609.5</pre>" /> <interpretationCode codeSystem="local" code="*" /> <referenceRange> <observationRange> <text>3.5-5.3</text> </ observationRange> </referenceRange> </observation> </ component> <component> <observation moodCode="EVN" classCode="OBS"> <templateId root="06.27.840.1.352246.10.20.22.4.2" /> <id nullFlavor="NA" /> <code codeSystem="local" code="eGFR" displayName= "EST GFR (MDRD)" /> <statusCode code="completed" /> < effectiveTime value="310290866233" /> <value xsi:type="ST" value="<pre> <b>METABOLIC PANEL, BASIC</b> 1362.409143740666.8> 60> 609.5</pre>" /> <referenceRange> <observationRange> <text>> 59</text > </observationRange> </referenceRange> </observation > </component> <component> <observation moodCode="EVN" classCode="OBS"> <templateId root="2.16.840.1.012384.10..22.4.2" /> <id nullFlavor="NA" /> <code codeSystem="local" code="GAP" displayName="ANION GAP" /> <statusCode code="completed" /> < effectiveTime value="235717647826" /> <value xsi:type="ST" value="<pre> <b>METABOLIC PANEL, BASIC</b> 1362.249535496919.8> 60> 609.5</pre>" /> <referenceRange> <observationRange> <text>5-15</text> </observationRange> </referenceRange> </observation> </component> <component> <observation moodCode="EVN" classCode= "OBS"> <templateId root="216.840.1.176408.10..22.4.2" /> < id nullFlavor="NA" /> <code codeSystem="local" code="eCrCl" displayName ="EST CrCl (CG)" /> <statusCode code="completed" /> < effectiveTime value="398657166003" /> <value xsi:type="ST" value="<pre> <b>METABOLIC PANEL, BASIC</b> 1362.433946140852.8> 60> 609.5</pre>" /> <referenceRange> <observationRange> <text>> 59</text > </observationRange> </referenceRange> </observation > </component> <component> <observation moodCode="EVN" classCode="OBS"> <templateId root="[id number]..22.4.2" /> <id nullFlavor="NA" /> <code codeSystem="local" code="GLU" displayName="GLUCOSE" /> <statusCode code="completed" /> < effectiveTime value="[id number]" /> <value xsi:type="ST" value="<pre> <b>METABOLIC PANEL, BASIC</b> 1362.052874291484.8> 60> 609.5</pre>" /> <referenceRange> <observationRange> <text>70-99</text> </observationRange> </referenceRange> </observation> </component> <component> <observation moodCode="EVN" classCode ="OBS"> <templateId root="[id number]...4.2" /> < id nullFlavor="NA" /> <code codeSystem="local" code="CA" displayName= "CALCIUM" /> <statusCode code="completed" /> <effectiveTime value="[id number]" /> <value xsi:type="ST" value="<pre><b>METABOLIC PANEL, BASIC</b> 1362.301025391433.8> 60> 609.5</pre>" /> < referenceRange> <observationRange> <text>8.5-10.1</text > </observationRange> </referenceRange> </observation > </component> <component> <observation moodCode="EVN" classCode="OBS"> <templateId root="216.840.1.446659.10...4.2" /> <id nullFlavor="NA" /> <code codeSystem="local" code="BUN" displayName="BLOOD UREA NITROGEN" /> <statusCode code="completed" /> <effectiveTime value="743049771177" /> <value xsi:type="ST" value="<pre><b>METABOLIC PANEL, BASIC</b> 1362.742776420502.8> 60> 609.5</pre>" /> <referenceRange> <observationRange> <text>7- 20</text> </observationRange> </referenceRange> </ observation> </component> <component> <observation moodCode= "EVN" classCode="OBS"> <templateId root="216.840.1.120231.02.28.22.4.2 " /> <id nullFlavor="NA" /> <code codeSystem="local" code= "CREAT" displayName="CREATININE" /> <statusCode code="completed" /> <effectiveTime value="717214701156" /> <value xsi:type="ST" value="<pre><b>METABOLIC PANEL, BASIC</b> 1362.484239731863.8> 60> 609.5</pre>" /> <referenceRange> <observationRange> <text> 0.6-1.0</text> </observationRange> </referenceRange> </observation> </component> <component> <observation moodCode= "EVN" classCode="OBS"> <templateId root="16.840.1.671335.10..4.2 " /> <id nullFlavor="NA" /> <code codeSystem="local" code="NA " displayName="SODIUM" /> <statusCode code="completed" /> < effectiveTime value="199147486624" /> <value xsi:type="ST" value="<pre> <b>METABOLIC PANEL, BASIC</b> 1362.917781286772.8> 60> 609.5</pre>" /> <referenceRange> <observationRange> <text>135-148</text > </observationRange> </referenceRange> </observation > </component> <component> <observation moodCode="EVN" classCode="OBS"> <templateId root="2.16.840.1.202165.10.20.22.4.2" /> <id nullFlavor="NA" /> <code codeSystem="local" code="CL" displayName="CHLORIDE" /> <statusCode code="completed" /> < effectiveTime value="925055059343" /> <value xsi:type="ST" value="<pre> <b>METABOLIC PANEL, BASIC</b> 1362.774638970346.8> 60> 609.5</pre>" /> <interpretationCode codeSystem="local" code="*" /> <referenceRange> <observationRange> <text>98-110</text> </ observationRange> </referenceRange> </observation> </ component> <component> <observation moodCode="EVN" classCode="OBS"> <templateId root="2.16.840.1.310478.10.20.22.4.2" /> <id nullFlavor="NA" /> <code codeSystem="local" code="CO2" displayName= "CARBON DIOXIDE" /> <statusCode code="completed" /> < effectiveTime value="580431551096" /> <value xsi:type="ST" value="<pre> <b>METABOLIC PANEL, BASIC</b> 1362.689236048480.8> 60> 609.5</pre>" /> <referenceRange> <observationRange> <text>21-32</text> </observationRange> </referenceRange> </observation> </component> <component> <observation moodCode="EVN" classCode ="OBS"> <templateId root="06.27.840.1.196667.10..22.4.2" /> < id nullFlavor="NA" /> <code codeSystem="local" code="MB" displayName= "Microbiology" /> <statusCode code="completed" /> < effectiveTime value="333556477108" /> <value xsi:type="ST" value="<pre> <b>METABOLIC PANEL, BASIC</b> 1362.019576846999.8> 60> 609.5</pre>" /> <referenceRange> <observationRange> <text /> </observationRange> </referenceRange> </observation> </ component> </organizer> </entry> <entry> <organizer moodCode="EVN" classCode="BATTERY"> <templateId root="06.27.840.1.539921.10..22.4.1" /> <id nullFlavor="NA" /> <code codeSystem="local" code="UA" displayName= "URINALYSIS, ROUTINE" /> <statusCode code="completed" /> <component> <observation moodCode="EVN" classCode="OBS"> <templateId root= "16.840.1.903290.10..22.4.2" /> <id nullFlavor="NA" /> < code codeSystem="local" code="LEUESU" displayName="UA LEUKOCYTE ESTERASE DIPSTICK" /> <statusCode code="completed" /> <effectiveTime value="062810141144" /> <value unit="" xsi:type="PQ" value="NEGATIVE" / > <referenceRange> <observationRange> <text> NEGATIVE</text> </observationRange> </referenceRange> </observation> </component> <component> <observation moodCode ="EVN" classCode="OBS"> <templateId root= "06.27.840.1.109511.02.28.22.4.2" /> <id nullFlavor="NA" /> < code codeSystem="local" code="NITRIU" displayName="UA NITRITE DIPSTICK" /> <statusCode code="completed" /> <effectiveTime value="068453969683 " /> <value unit="" xsi:type="PQ" value="NEGATIVE" /> < referenceRange> <observationRange> <text>NEGATIVE</text > </observationRange> </referenceRange> </observation > </component> <component> <observation moodCode="EVN" classCode="OBS"> <templateId root="216.840.1.055889.02.28.22.4.2" /> <id nullFlavor="NA" /> <code codeSystem="local" code="PROTEIU " displayName="UA PROTEIN DIPSTICK" /> <statusCode code="completed" /> <effectiveTime value="329815937044" /> <value unit="" xsi: type="PQ" value="NEGATIVE" /> <referenceRange> < observationRange> <text>NEGATIVE</text> </ observationRange> </referenceRange> </observation> </ component> <component> <observation moodCode="EVN" classCode="OBS"> <templateId root="216.840.1.789422.02.28.22.4.2" /> <id nullFlavor="NA" /> <code codeSystem="local" code="DGLUU" displayName= "UA GLUCOSE DIPSTICK" /> <statusCode code="completed" /> < effectiveTime value="164802900442" /> <value unit="" xsi:type="PQ" value="NEGATIVE" /> <referenceRange> <observationRange> <text>NEGATIVE</text> </observationRange> </ referenceRange> </observation> </component> <component> <observation moodCode="EVN" classCode="OBS"> <templateId root= "16.840.1.105270.10..22.4.2" /> <id nullFlavor="NA" /> < code codeSystem="local" code="KETONU" displayName="UA KETONE DIPSTICK" /> <statusCode code="completed" /> <effectiveTime value="129522331198 " /> <value unit="" xsi:type="PQ" value="2+" /> < interpretationCode codeSystem="local" code="*" /> <referenceRange> <observationRange> <text>NEGATIVE</text> </ observationRange> </referenceRange> </observation> </ component> <component> <observation moodCode="EVN" classCode="OBS"> <templateId root="06.27.840.1.180063.02.28.22.4.2" /> <id nullFlavor="NA" /> <code codeSystem="local" code="UROBILU" displayName= "UA UROBILINOGEN DIPSTICK" /> <statusCode code="completed" /> <effectiveTime value="538761662763" /> <value unit="" xsi:type="PQ" value="NORMAL" /> <referenceRange> <observationRange> <text>NORMAL</text> </observationRange> </ referenceRange> </observation> </component> <component> <observation moodCode="EVN" classCode="OBS"> <templateId root= "06.27.840.1.105176.10.2022.4.2" /> <id nullFlavor="NA" /> < code codeSystem="local" code="BILU" displayName="UA BILIRUBIN DIPSTICK" /> <statusCode code="completed" /> <effectiveTime value="773038763624 " /> <value unit="" xsi:type="PQ" value="1+" /> < interpretationCode codeSystem="local" code="*" /> <referenceRange> <observationRange> <text>NEGATIVE</text> </ observationRange> </referenceRange> </observation> </ component> <component> <observation moodCode="EVN" classCode="OBS"> <templateId root="16.840.1.150284.10.20.22.4.2" /> <id nullFlavor="NA" /> <code codeSystem="local" code="NOLVIA" displayName="UA BLOOD DIPSTICK" /> <statusCode code="completed" /> < effectiveTime value="881765761817" /> <value unit="" xsi:type="PQ" value="TRACE" /> <interpretationCode codeSystem="local" code="*" /> <referenceRange> <observationRange> <text> NEGATIVE</text> </observationRange> </referenceRange> </observation> </component> <component> <observation moodCode ="EVN" classCode="OBS"> <templateId root= "06.27.840.1.101430.10.4.2" /> <id nullFlavor="NA" /> < code codeSystem="local" code="SPGRU" displayName="UA SPECIFIC GRAVITY" /> <statusCode code="completed" /> <effectiveTime value="603663485612 " /> <value unit="" xsi:type="PQ" value="1.015" /> < referenceRange> <observationRange> <text>1.015-1.025</ text> </observationRange> </referenceRange> </ observation> </component> <component> <observation moodCode= "EVN" classCode="OBS"> <templateId root="16.840.1.600783.10.20.22.4.2 " /> <id nullFlavor="NA" /> <code codeSystem="local" code="DIETER " displayName="UR PH" /> <statusCode code="completed" /> < effectiveTime value="571832517637" /> <value unit="" xsi:type="PQ" value="6.0" /> <referenceRange> <observationRange> <text>5.0-7.0</text> </observationRange> </ referenceRange> </observation> </component> <component> <observation moodCode="EVN" classCode="OBS"> <templateId root= "06.27.840.1.705164.02.28.22.4.2" /> <id nullFlavor="NA" /> < code codeSystem="local" code="MB" displayName="Microbiology" /> < statusCode code="completed" /> <effectiveTime value="462973339954" /> <value unit="" xsi:type="PQ" value="" /> <referenceRange> <observationRange> <text /> </observationRange> </referenceRange> </observation> </component> </ organizer> </entry> <entry> <organizer moodCode="EVN" classCode="BATTERY"> <templateId root="840.1.680838.02.28.22.4.1" /> <id nullFlavor= "NA" /> <code codeSystem="local" code="UAMICRO" displayName="UA MICROSCOPIC " /> <statusCode code="completed" /> <component> <observation moodCode="EVN" classCode="OBS"> <templateId root= "840.1.977665.22.4.2" /> <id nullFlavor="NA" /> < code codeSystem="local" code="BACU" displayName="UA BACTERIA" /> < statusCode code="completed" /> <effectiveTime value="703453919363" /> <value unit="" xsi:type="PQ" value="2+" /> < interpretationCode codeSystem="local" code="*" /> <referenceRange> <observationRange> <text>NEGATIVE</text> </ observationRange> </referenceRange> </observation> </ component> <component> <observation moodCode="EVN" classCode="OBS"> <templateId root="16.840.1.780687.10.22.4.2" /> <id nullFlavor="NA" /> <code codeSystem="local" code="EPIU" displayName=" UA EPITHELIAL CELLS" /> <statusCode code="completed" /> < effectiveTime value="369058812666" /> <value unit="epi/hpf" xsi:type= "PQ" value="2+" /> <interpretationCode codeSystem="local" code="*" /> <referenceRange> <observationRange> <text>0 - 1 +</text> </observationRange> </referenceRange> </ observation> </component> <component> <observation moodCode= "EVN" classCode="OBS"> <templateId root="06.27.840.1.164540.02.28.22.4.2 " /> <id nullFlavor="NA" /> <code codeSystem="local" code= "MUCUSU" displayName="UA MUCUS" /> <statusCode code="completed" /> <effectiveTime value="523279175325" /> <value unit="" xsi:type= "PQ" value="3+" /> <interpretationCode codeSystem="local" code="*" /> <referenceRange> <observationRange> <text>NEG TO 1+</text> </observationRange> </referenceRange> </ observation> </component> <component> <observation moodCode= "EVN" classCode="OBS"> <templateId root="06.27.840.1.851259.02.28.22.4.2 " /> <id nullFlavor="NA" /> <code codeSystem="local" code= "RBCU" displayName="UA RBC" /> <statusCode code="completed" /> <effectiveTime value="319438993111" /> <value unit="rbc/hpf" xsi:type ="PQ" value="0-3" /> <referenceRange> <observationRange> <text>0 - 3</text> </observationRange> </ referenceRange> </observation> </component> <component> <observation moodCode="EVN" classCode="OBS"> <templateId root= "2.16.840.1.345250.10...4.2" /> <id nullFlavor="NA" /> < code codeSystem="local" code="UAVOL" displayName="UA VOLUME FOR EXAM" /> <statusCode code="completed" /> <effectiveTime value="860117803289" /> <value unit="mL" xsi:type="PQ" value="12.0" /> < referenceRange> <observationRange> <text>(12mL STD)</ text> </observationRange> </referenceRange> </ observation> </component> <component> <observation moodCode= "EVN" classCode="OBS"> <templateId root="2.16.840.1.475766.10..22.4.2 " /> <id nullFlavor="NA" /> <code codeSystem="local" code= "WBCU" displayName="UA WBC" /> <statusCode code="completed" /> <effectiveTime value="539478012584" /> <value unit="wbc/hpf" xsi:type ="PQ" value="0-1" /> <referenceRange> <observationRange> <text>0 - 5</text> </observationRange> </ referenceRange> </observation> </component> </organizer> </entry > <entry> <organizer moodCode="EVN" classCode="BATTERY"> <templateId root="2.16.840.1.171362.10.20.22.4.1" /> <id nullFlavor="NA" /> <code codeSystem="local" code="PREGU" displayName="UR TEST" /> < statusCode code="completed" /> <component> <observation moodCode= "EVN" classCode="OBS"> <templateId root="216.840.1.390057.10.20.22.4.2 " /> <id nullFlavor="NA" /> <code codeSystem="local" code= "PREGU" displayName="UR TEST" /> <statusCode code="completed " /> <effectiveTime value="264865796786" /> <value xsi:type= "ST" value="<pre><b>UR TEST</b> NEGATIVE</pre>" /> < referenceRange> <observationRange> <text>NEGATIVE</text > </observationRange> </referenceRange> </observation > </component> <component> <observation moodCode="EVN" classCode="OBS"> <templateId root="216.840.1.194117.10.20.22.4.2" /> <id nullFlavor="NA" /> <code codeSystem="local" code="MB" displayName="Microbiology" /> <statusCode code="completed" /> <effectiveTime value="155074576576" /> <value xsi:type="ST" value="<pre ><b>UR TEST</b> NEGATIVE</pre>" /> <referenceRange> <observationRange> <text /> </observationRange> </referenceRange> </observation> </component> </organizer> </entry> <entry> <organizer moodCode="EVN" classCode="BATTERY"> < templateId root="06.27.840.1.085535.10...4.1" /> <id nullFlavor="NA" /> <code codeSystem="local" code="CBCD" displayName="CBC W/DIFF" /> < statusCode code="completed" /> <component> <observation moodCode= "EVN" classCode="OBS"> <templateId root="840.1.601569.02.28.22.4.2 " /> <id nullFlavor="NA" /> <code codeSystem="local" code="BA# " displayName="BASOPHIL #" /> <statusCode code="completed" /> <effectiveTime value="068220836122" /> <value unit="k/cumm" xsi:type= "PQ" value="0.0" /> <referenceRange> <observationRange> <text>0.0-0.2</text> </observationRange> </ referenceRange> </observation> </component> <component> <observation moodCode="EVN" classCode="OBS"> <templateId root= "840.1.498071.02.28.224.2" /> <id nullFlavor="NA" /> < code codeSystem="local" code="BA%" displayName="BASOPHIL %" /> <statusCode code="completed" /> <effectiveTime value="341576295367" /> <value unit="%" xsi:type="PQ" value="1" /> < referenceRange> <observationRange> <text>0-1</text> </observationRange> </referenceRange> </observation> </component> <component> <observation moodCode="EVN" classCode= "OBS"> <templateId root="06.27.840.1.744914.02.28.22.4.2" /> < id nullFlavor="NA" /> <code codeSystem="local" code="EO#" displayName= "EOSINOPHIL #" /> <statusCode code="completed" /> < effectiveTime value="909520003389" /> <value unit="k/cumm" xsi:type="PQ " value="0.1" /> <referenceRange> <observationRange> <text>0.1-0.5</text> </observationRange> </ referenceRange> </observation> </component> <component> <observation moodCode="EVN" classCode="OBS"> <templateId root= "216.840.1.567796.10..22.4.2" /> <id nullFlavor="NA" /> < code codeSystem="local" code="EO%" displayName="EOSINOPHIL %" /> <statusCode code="completed" /> <effectiveTime value="416630021320" /> <value unit="%" xsi:type="PQ" value="1" /> < interpretationCode codeSystem="local" code="*" /> <referenceRange> <observationRange> <text>2-4</text> </ observationRange> </referenceRange> </observation> </ component> <component> <observation moodCode="EVN" classCode="OBS"> <templateId root="216.840.1.367289.10..22.4.2" /> <id nullFlavor="NA" /> <code codeSystem="local" code="GR#" displayName= "GRANULOCYTE #" /> <statusCode code="completed" /> < effectiveTime value="227204280683" /> <value unit="k/cumm" xsi:type="PQ " value="3.0" /> <referenceRange> <observationRange> <text>2.0-9.0</text> </observationRange> </ referenceRange> </observation> </component> <component> <observation moodCode="EVN" classCode="OBS"> <templateId root= "216.840.1.148784.10..4.2" /> <id nullFlavor="NA" /> < code codeSystem="local" code="GR%" displayName="GRANULOCYTE %" /> <statusCode code="completed" /> <effectiveTime value="826070668692 " /> <value unit="%" xsi:type="PQ" value="57" /> < referenceRange> <observationRange> <text>50-75</text> </observationRange> </referenceRange> </observation> </component> <component> <observation moodCode="EVN" classCode= "OBS"> <templateId root="16.840.1.743441.02.28.22.4.2" /> < id nullFlavor="NA" /> <code codeSystem="local" code="LY#" displayName= "LYMPHOCYTE #" /> <statusCode code="completed" /> < effectiveTime value="920004746957" /> <value unit="k/cumm" xsi:type="PQ " value="1.8" /> <referenceRange> <observationRange> <text>1.0-4.0</text> </observationRange> </ referenceRange> </observation> </component> <component> <observation moodCode="EVN" classCode="OBS"> <templateId root= "06.27.840.1.981234.10.2022.4.2" /> <id nullFlavor="NA" /> < code codeSystem="local" code="LY%" displayName="LYMPHOCYTE %" /> <statusCode code="completed" /> <effectiveTime value="365359299854" /> <value unit="%" xsi:type="PQ" value="34" /> < interpretationCode codeSystem="local" code="*" /> <referenceRange> <observationRange> <text>20-30</text> </ observationRange> </referenceRange> </observation> </ component> <component> <observation moodCode="EVN" classCode="OBS"> <templateId root="216.840.1.962032.02.28.22.4.2" /> <id nullFlavor="NA" /> <code codeSystem="local" code="MCH" displayName= "MEAN CELL HGB" /> <statusCode code="completed" /> < effectiveTime value="045552358347" /> <value unit="pg" xsi:type="PQ" value="20.4" /> <interpretationCode codeSystem="local" code="*" /> <referenceRange> <observationRange> <text>27.0- 33.0</text> </observationRange> </referenceRange> </ observation> </component> <component> <observation moodCode= "EVN" classCode="OBS"> <templateId root="216.840.1.473641.02.28.22.4.2 " /> <id nullFlavor="NA" /> <code codeSystem="local" code= "MCHC" displayName="MEAN CELL HGB CONCENTRATION" /> <statusCode code= "completed" /> <effectiveTime value="689987140709" /> <value unit="g/dL" xsi:type="PQ" value="30.3" /> <interpretationCode codeSystem="local" code="*" /> <referenceRange> < observationRange> <text>32.0-37.0</text> </ observationRange> </referenceRange> </observation> </ component> <component> <observation moodCode="EVN" classCode="OBS"> <templateId root="216840.1.142461.22.4.2" /> <id nullFlavor="NA" /> <code codeSystem="local" code="MCV" displayName= "MEAN CELL VOLUME" /> <statusCode code="completed" /> < effectiveTime value="029548708477" /> <value unit="fl" xsi:type="PQ" value="67.4" /> <interpretationCode codeSystem="local" code="*" /> <referenceRange> <observationRange> <text>80.0- 100.0</text> </observationRange> </referenceRange> </ observation> </component> <component> <observation moodCode= "EVN" classCode="OBS"> <templateId root="840.1.912571.22.4.2 " /> <id nullFlavor="NA" /> <code codeSystem="local" code="MO# " displayName="MONOCYTE #" /> <statusCode code="completed" /> <effectiveTime value="" /> <value unit="k/cumm" xsi:type= "PQ" value="0.4" /> <referenceRange> <observationRange> <text>0.1-1.0</text> </observationRange> </ referenceRange> </observation> </component> <component> <observation moodCode="EVN" classCode="OBS"> <templateId root= "06.27.840.1.994735.10.22.4.2" /> <id nullFlavor="NA" /> < code codeSystem="local" code="MO%" displayName="MONOCYTE %" /> <statusCode code="completed" /> <effectiveTime value="" /> <value unit="%" xsi:type="PQ" value="7" /> < interpretationCode codeSystem="local" code="*" /> <referenceRange> <observationRange> <text>4-6</text> </ observationRange> </referenceRange> </observation> </ component> <component> <observation moodCode="EVN" classCode="OBS"> <templateId root="06.27.840.1.339921.10.20.22.4.2" /> <id nullFlavor="NA" /> <code codeSystem="local" code="OVAL" displayName= "OVALOCYTES" /> <statusCode code="completed" /> < effectiveTime value="055331160436" /> <value unit="" xsi:type="PQ" value="NOTED" /> <referenceRange> <observationRange> <text /> </observationRange> </referenceRange> </observation> </component> <component> <observation moodCode ="EVN" classCode="OBS"> <templateId root= "840.1.447741...4.2" /> <id nullFlavor="NA" /> < code codeSystem="local" code="RBC" displayName="RED BLOOD CELL" /> < statusCode code="completed" /> <effectiveTime value="843474777600" /> <value unit="m/cumm" xsi:type="PQ" value="3.77" /> < interpretationCode codeSystem="local" code="*" /> <referenceRange> <observationRange> <text>4.00-6.00</text> </ observationRange> </referenceRange> </observation> </ component> <component> <observation moodCode="EVN" classCode="OBS"> <templateId root="840.1.298738..2022.4.2" /> <id nullFlavor="NA" /> <code codeSystem="local" code="RDW" displayName=" RED CELL DISTRIBUTION WIDTH" /> <statusCode code="completed" /> <effectiveTime value="969335899372" /> <value unit="%" xsi:type= "PQ" value="22.0" /> <interpretationCode codeSystem="local" code="*" / > <referenceRange> <observationRange> <text> 11.0-15.6</text> </observationRange> </referenceRange> </observation> </component> <component> <observation moodCode="EVN" classCode="OBS"> <templateId root= "216.840.1.401053.10..22.4.2" /> <id nullFlavor="NA" /> < code codeSystem="local" code="WBC" displayName="WHITE BLOOD CELL" /> < statusCode code="completed" /> <effectiveTime value="186654627805" /> <value unit="k/cumm" xsi:type="PQ" value="5.3" /> < referenceRange> <observationRange> <text>5.0-10.0</text > </observationRange> </referenceRange> </observation > </component> <component> <observation moodCode="EVN" classCode="OBS"> <templateId root="2.16.840.1.528657.10.20.22.4.2" /> <id nullFlavor="NA" /> <code codeSystem="local" code="HGBT" displayName="HEMOGLOBIN" /> <statusCode code="completed" /> < effectiveTime value="447518065891" /> <value unit="gm/dL" xsi:type="PQ " value="7.7" /> <interpretationCode codeSystem="local" code="*" /> <referenceRange> <observationRange> <text>12.0- 16.0</text> </observationRange> </referenceRange> </ observation> </component> <component> <observation moodCode= "EVN" classCode="OBS"> <templateId root="216.840.1.501558.10...4.2 " /> <id nullFlavor="NA" /> <code codeSystem="local" code= "HCTT" displayName="HEMATOCRIT" /> <statusCode code="completed" /> <effectiveTime value="762916782988" /> <value unit="%" xsi: type="PQ" value="25.4" /> <interpretationCode codeSystem="local" code= "*" /> <referenceRange> <observationRange> < text>37.0-47.0</text> </observationRange> </referenceRange> </observation> </component> <component> <observation moodCode="EVN" classCode="OBS"> <templateId root= "16.840.1.176043.02.28.22.4.2" /> <id nullFlavor="NA" /> < code codeSystem="local" code="PLT" displayName="PLATELET COUNT" /> < statusCode code="completed" /> <effectiveTime value="705851559906" /> <value unit="k/cumm" xsi:type="PQ" value="284" /> < referenceRange> <observationRange> <text>150-400</text> </observationRange> </referenceRange> </observation > </component> <component> <observation moodCode="EVN" classCode="OBS"> <templateId root="216.840.1.045419.10.2022.4.2" /> <id nullFlavor="NA" /> <code codeSystem="local" code="MB" displayName="Microbiology" /> <statusCode code="completed" /> <effectiveTime value="147176121639" /> <value unit="" xsi:type="PQ" value="" /> <referenceRange> <observationRange> <text /> </observationRange> </referenceRange> </ observation> </component> </organizer> </entry> <entry> <organizer moodCode="EVN" classCode="BATTERY"> <templateId root= "2.16.840.1.354353.10..22.4.1" /> <id nullFlavor="NA" /> <code codeSystem="local" code="PREG" displayName=" TEST, SERUM" /> < statusCode code="completed" /> <component> <observation moodCode= "EVN" classCode="OBS"> <templateId root="2.16.840.1.901811.10..4.2 " /> <id nullFlavor="NA" /> <code codeSystem="local" code= "PREG" displayName=" TEST, SERUM" /> <statusCode code= "completed" /> <effectiveTime value="208917283646" /> <value xsi:type="ST" value="<pre><b> TEST, SERUM</b> NEGATIVE</pre>" /> <referenceRange> <observationRange> <text>NEGATIVE</ text> </observationRange> </referenceRange> </ observation> </component> <component> <observation moodCode= "EVN" classCode="OBS"> <templateId root="2.16.840.1.280082...4.2 " /> <id nullFlavor="NA" /> <code codeSystem="local" code="MB " displayName="Microbiology" /> <statusCode code="completed" /> <effectiveTime value="380058768903" /> <value xsi:type="ST" value="< pre><b> TEST, SERUM</b> NEGATIVE</pre>" /> <referenceRange> <observationRange> <text /> </observationRange > </referenceRange> </observation> </component> </ organizer> </entry> <entry> <organizer moodCode="EVN" classCode="BATTERY"> <templateId root="216.840.1.641543.10..22.4.1" /> <id nullFlavor= "NA" /> <code codeSystem="local" code="METABC" displayName="METABOLIC PANEL , COMPREHN" /> <statusCode code="completed" /> <component> < observation moodCode="EVN" classCode="OBS"> <templateId root= "2.16.840.1.366321.10...4.2" /> <id nullFlavor="NA" /> < code codeSystem="local" code="K" displayName="POTASSIUM" /> < statusCode code="completed" /> <effectiveTime value="803205077695" /> <value unit="mmol/L" xsi:type="PQ" value="3.5" /> < referenceRange> <observationRange> <text>3.5-5.3</text> </observationRange> </referenceRange> </observation > </component> <component> <observation moodCode="EVN" classCode="OBS"> <templateId root="2.16.840.1.111756.10..22.4.2" /> <id nullFlavor="NA" /> <code codeSystem="local" code="eGFR" displayName="EST GFR (MDRD)" /> <statusCode code="completed" /> <effectiveTime value="552932405633" /> <value unit="mL/min" xsi:type ="PQ" value="> 60" /> <referenceRange> <observationRange > <text>> 59</text> </observationRange> </ referenceRange> </observation> </component> <component> <observation moodCode="EVN" classCode="OBS"> <templateId root= "216.840.1.551447.10.20.22.4.2" /> <id nullFlavor="NA" /> < code codeSystem="local" code="GAP" displayName="ANION GAP" /> < statusCode code="completed" /> <effectiveTime value="030119271755" /> <value unit="mmol/L" xsi:type="PQ" value="8" /> < referenceRange> <observationRange> <text>5-15</text> </observationRange> </referenceRange> </observation> </component> <component> <observation moodCode="EVN" classCode= "OBS"> <templateId root="06.27.840.1.440297.10..22.4.2" /> < id nullFlavor="NA" /> <code codeSystem="local" code="eCrCl" displayName ="EST CrCl (CG)" /> <statusCode code="completed" /> < effectiveTime value="511985634083" /> <value unit="mL/min" xsi:type="PQ " value="> 60" /> <referenceRange> <observationRange> <text>> 59</text> </observationRange> </ referenceRange> </observation> </component> <component> <observation moodCode="EVN" classCode="OBS"> <templateId root= "06.27.840.1.783731.10..22.4.2" /> <id nullFlavor="NA" /> < code codeSystem="local" code="GLU" displayName="GLUCOSE" /> < statusCode code="completed" /> <effectiveTime value="490629849813" /> <value unit="mg/dL" xsi:type="PQ" value="79" /> < referenceRange> <observationRange> <text>70-99</text> </observationRange> </referenceRange> </observation> </component> <component> <observation moodCode="EVN" classCode= "OBS"> <templateId root="216.840.1.874758.02.28.22.4.2" /> < id nullFlavor="NA" /> <code codeSystem="local" code="CA" displayName= "CALCIUM" /> <statusCode code="completed" /> <effectiveTime value="258100357854" /> <value unit="mg/dL" xsi:type="PQ" value="8.6" / > <referenceRange> <observationRange> <text>8.5 -10.1</text> </observationRange> </referenceRange> </ observation> </component> <component> <observation moodCode= "EVN" classCode="OBS"> <templateId root="06.27.840.1.318075.02.28.22.4.2 " /> <id nullFlavor="NA" /> <code codeSystem="local" code="BUN " displayName="BLOOD UREA NITROGEN" /> <statusCode code="completed" /> <effectiveTime value="986382026923" /> <value unit="mg/dL" xsi:type="PQ" value="9" /> <referenceRange> < observationRange> <text>7-20</text> </observationRange> </referenceRange> </observation> </component> < component> <observation moodCode="EVN" classCode="OBS"> < templateId root="16.840.1.597344.1022.4.2" /> <id nullFlavor="NA " /> <code codeSystem="local" code="CREAT" displayName="CREATININE" /> <statusCode code="completed" /> <effectiveTime value= "833203001937" /> <value unit="mg/dL" xsi:type="PQ" value="0.6" /> <referenceRange> <observationRange> <text>0.6-1.0< /text> </observationRange> </referenceRange> </ observation> </component> <component> <observation moodCode= "EVN" classCode="OBS"> <templateId root="216.840.1.016242.10..22.4.2 " /> <id nullFlavor="NA" /> <code codeSystem="local" code="NA " displayName="SODIUM" /> <statusCode code="completed" /> < effectiveTime value="102863056189" /> <value unit="mmol/L" xsi:type="PQ " value="139" /> <referenceRange> <observationRange> <text>135-148</text> </observationRange> </ referenceRange> </observation> </component> <component> <observation moodCode="EVN" classCode="OBS"> <templateId root= "06.27.840.1.262371.10.22.4.2" /> <id nullFlavor="NA" /> < code codeSystem="local" code="CL" displayName="CHLORIDE" /> < statusCode code="completed" /> <effectiveTime value="697181546452" /> <value unit="mmol/L" xsi:type="PQ" value="101" /> < referenceRange> <observationRange> <text>98-110</text> </observationRange> </referenceRange> </observation> </component> <component> <observation moodCode="EVN" classCode ="OBS"> <templateId root="06.27.840.1.589840.10.2022.4.2" /> < id nullFlavor="NA" /> <code codeSystem="local" code="AST" displayName= "AST/SGOT" /> <statusCode code="completed" /> <effectiveTime value="410207582127" /> <value unit="Units/L" xsi:type="PQ" value="38" /> <interpretationCode codeSystem="local" code="*" /> < referenceRange> <observationRange> <text>10-37</text> </observationRange> </referenceRange> </observation> </component> <component> <observation moodCode="EVN" classCode= "OBS"> <templateId root="216.840.1.103739.10...4.2" /> < id nullFlavor="NA" /> <code codeSystem="local" code="ALT" displayName= "ALT/SGPT" /> <statusCode code="completed" /> <effectiveTime value="667425607495" /> <value unit="Units/L" xsi:type="PQ" value="67" /> <interpretationCode codeSystem="local" code="*" /> < referenceRange> <observationRange> <text>< 66</text> </observationRange> </referenceRange> </observation > </component> <component> <observation moodCode="EVN" classCode="OBS"> <templateId root="216.840.1.452900.10...4.2" /> <id nullFlavor="NA" /> <code codeSystem="local" code="CO2" displayName="CARBON DIOXIDE" /> <statusCode code="completed" /> <effectiveTime value="923912121720" /> <value unit="mmol/L" xsi:type ="PQ" value="30" /> <referenceRange> <observationRange> <text>21-32</text> </observationRange> </ referenceRange> </observation> </component> <component> <observation moodCode="EVN" classCode="OBS"> <templateId root= "216.840.1.699212.22.4.2" /> <id nullFlavor="NA" /> < code codeSystem="local" code="TP" displayName="TOTAL PROTEIN" /> < statusCode code="completed" /> <effectiveTime value="525543391933" /> <value unit="gm/dL" xsi:type="PQ" value="6.7" /> < referenceRange> <observationRange> <text>6.4-8.2</text> </observationRange> </referenceRange> </observation > </component> <component> <observation moodCode="EVN" classCode="OBS"> <templateId root="06.27.840.1.414568.02.28.22.4.2" /> <id nullFlavor="NA" /> <code codeSystem="local" code="ALB" displayName="ALBUMIN" /> <statusCode code="completed" /> < effectiveTime value="111510233951" /> <value unit="gm/dL" xsi:type="PQ " value="2.9" /> <interpretationCode codeSystem="local" code="*" /> <referenceRange> <observationRange> <text>3.4-5.0 </text> </observationRange> </referenceRange> </ observation> </component> <component> <observation moodCode= "EVN" classCode="OBS"> <templateId root="06.27.840.1.038290.22.4.2 " /> <id nullFlavor="NA" /> <code codeSystem="local" code= "BILTOT" displayName="BILI TOTAL" /> <statusCode code="completed" /> <effectiveTime value="966792321873" /> <value unit="mg/dL" xsi: type="PQ" value="0.3" /> <referenceRange> <observationRange > <text>0.0-1.0</text> </observationRange> </ referenceRange> </observation> </component> <component> <observation moodCode="EVN" classCode="OBS"> <templateId root= "216.840.1.056448.10..4.2" /> <id nullFlavor="NA" /> < code codeSystem="local" code="ALKP" displayName="ALKALINE PHOSPHATASE TOTAL" /> <statusCode code="completed" /> <effectiveTime value= "405595135978" /> <value unit="IU/L" xsi:type="PQ" value="149" /> <interpretationCode codeSystem="local" code="*" /> <referenceRange > <observationRange> <text>45-117</text> </ observationRange> </referenceRange> </observation> </ component> <component> <observation moodCode="EVN" classCode="OBS"> <templateId root="16.840.1.680470.02.28.22.4.2" /> <id nullFlavor="NA" /> <code codeSystem="local" code="MB" displayName= "Microbiology" /> <statusCode code="completed" /> < effectiveTime value="568805379889" /> <value unit="" xsi:type="PQ" value="" /> <referenceRange> <observationRange> <text /> </observationRange> </referenceRange> </ observation> </component> </organizer> </entry> <entry> <organizer moodCode="EVN" classCode="BATTERY"> <templateId root= "216.840.1.462790.02.28.22.4.1" /> <id nullFlavor="NA" /> <code codeSystem="local" code="MAG" displayName="MAGNESIUM" /> <statusCode code= "completed" /> <component> <observation moodCode="EVN" classCode= "OBS"> <templateId root="16.840.1.042322.10..22.4.2" /> < id nullFlavor="NA" /> <code codeSystem="local" code="MAG" displayName= "MAGNESIUM" /> <statusCode code="completed" /> <effectiveTime value="220858419817" /> <value unit="mg/dL" xsi:type="PQ" value="1.8" / > <referenceRange> <observationRange> <text>1.8 -2.4</text> </observationRange> </referenceRange> </ observation> </component> </organizer> </entry> <entry> <organizer moodCode="EVN" classCode="BATTERY"> <templateId root= "16.840.1.187780.10..22.4.1" /> <id nullFlavor="NA" /> <code codeSystem="local" code="LIP" displayName="LIPASE" /> <statusCode code= "completed" /> <component> <observation moodCode="EVN" classCode= "OBS"> <templateId root="216.840.1.586360.10..22.4.2" /> < id nullFlavor="NA" /> <code codeSystem="local" code="LIP" displayName= "LIPASE" /> <statusCode code="completed" /> <effectiveTime value="858385200401" /> <value unit="Units/L" xsi:type="PQ" value="123 " /> <referenceRange> <observationRange> <text> 73-393</text> </observationRange> </referenceRange> < /observation> </component> </organizer> </entry> <entry> < organizer moodCode="EVN" classCode="BATTERY"> <templateId root= "16.840.1.024877.20.22.4.1" /> <id nullFlavor="NA" /> <code codeSystem="local" code="iCHEM8" displayName="CHEM/HEM PROFILE-BEDSIDE" /> <statusCode code="completed" /> <component> <observation moodCode= "EVN" classCode="OBS"> <templateId root="216.840.1.069603...4.2 " /> <id nullFlavor="NA" /> <code codeSystem="local" code="K" displayName="POTASSIUM" /> <statusCode code="completed" /> < effectiveTime value="600402331454" /> <value unit="mmol/L" xsi:type="PQ " value="3.4" /> <interpretationCode codeSystem="local" code="*" /> <referenceRange> <observationRange> <text>3.5-5.3 </text> </observationRange> </referenceRange> </ observation> </component> <component> <observation moodCode= "EVN" classCode="OBS"> <templateId root="840.1.830192.02.28.22.4.2 " /> <id nullFlavor="NA" /> <code codeSystem="local" code= "CMETHOD" displayName="METHOD" /> <statusCode code="completed" /> <effectiveTime value="004635850832" /> <value unit="" xsi:type="PQ " value="Bedside" /> <referenceRange> <observationRange> <text /> </observationRange> </referenceRange> </observation> </component> <component> <observation moodCode="EVN" classCode="OBS"> <templateId root= "06.27.840.1.069638.02.28.22.4.2" /> <id nullFlavor="NA" /> < code codeSystem="local" code="GAP" displayName="ANION GAP" /> < statusCode code="completed" /> <effectiveTime value="354033583957" /> <value unit="mmol/L" xsi:type="PQ" value="17" /> < referenceRange> <observationRange> <text>10-20</text> </observationRange> </referenceRange> </observation> </component> <component> <observation moodCode="EVN" classCode= "OBS"> <templateId root="16.840.1.893171.10.22.4.2" /> < id nullFlavor="NA" /> <code codeSystem="local" code="HMETHOD" displayName="METHOD" /> <statusCode code="completed" /> < effectiveTime value="383099408345" /> <value unit="" xsi:type="PQ" value="Bedside" /> <referenceRange> <observationRange> <text /> </observationRange> </referenceRange> </observation> </component> <component> <observation moodCode="EVN" classCode="OBS"> <templateId root= "06.27.840.1.531500.02.28.22.4.2" /> <id nullFlavor="NA" /> < code codeSystem="local" code="GLU" displayName="GLUCOSE" /> < statusCode code="completed" /> <effectiveTime value="414029122069" /> <value unit="mg/dL" xsi:type="PQ" value="77" /> < referenceRange> <observationRange> <text>70-99</text> </observationRange> </referenceRange> </observation> </component> <component> <observation moodCode="EVN" classCode= "OBS"> <templateId root="06.27.840.1.062799.10.22.4.2" /> < id nullFlavor="NA" /> <code codeSystem="local" code="BUN" displayName= "BLOOD UREA NITROGEN" /> <statusCode code="completed" /> < effectiveTime value="750322562736" /> <value unit="mg/dL" xsi:type="PQ " value="5" /> <interpretationCode codeSystem="local" code="*" /> <referenceRange> <observationRange> <text>7-20</ text> </observationRange> </referenceRange> </ observation> </component> <component> <observation moodCode= "EVN" classCode="OBS"> <templateId root="2.16.840.1.402805.10..22.4.2 " /> <id nullFlavor="NA" /> <code codeSystem="local" code= "CREAT" displayName="CREATININE" /> <statusCode code="completed" /> <effectiveTime value="397493613959" /> <value unit="mg/dL" xsi: type="PQ" value="0.6" /> <referenceRange> <observationRange > <text>0.6-1.0</text> </observationRange> </ referenceRange> </observation> </component> <component> <observation moodCode="EVN" classCode="OBS"> <templateId root= "2.16.840.1.762004.10..22.4.2" /> <id nullFlavor="NA" /> < code codeSystem="local" code="HGBT" displayName="HEMOGLOBIN" /> < statusCode code="completed" /> <effectiveTime value="570615622883" /> <value unit="gm/dL" xsi:type="PQ" value="8.5" /> < interpretationCode codeSystem="local" code="*" /> <referenceRange> <observationRange> <text>12.0-16.0</text> </ observationRange> </referenceRange> </observation> </ component> <component> <observation moodCode="EVN" classCode="OBS"> <templateId root="2.16.840.1.562349.10..22.4.2" /> <id nullFlavor="NA" /> <code codeSystem="local" code="HCTT" displayName= "HEMATOCRIT" /> <statusCode code="completed" /> < effectiveTime value="751024887004" /> <value unit="%" xsi:type="PQ " value="25.0" /> <interpretationCode codeSystem="local" code="*" /> <referenceRange> <observationRange> <text>37.0- 47.0</text> </observationRange> </referenceRange> </ observation> </component> <component> <observation moodCode= "EVN" classCode="OBS"> <templateId root="216.840.1.137364.02.28.22.4.2 " /> <id nullFlavor="NA" /> <code codeSystem="local" code="NA " displayName="SODIUM" /> <statusCode code="completed" /> < effectiveTime value="788752877083" /> <value unit="mmol/L" xsi:type="PQ " value="138" /> <referenceRange> <observationRange> <text>135-148</text> </observationRange> </ referenceRange> </observation> </component> <component> <observation moodCode="EVN" classCode="OBS"> <templateId root= "2.16.840.1.391147.10.22.4.2" /> <id nullFlavor="NA" /> < code codeSystem="local" code="CL" displayName="CHLORIDE" /> < statusCode code="completed" /> <effectiveTime value="621927278253" /> <value unit="mmol/L" xsi:type="PQ" value="100" /> < referenceRange> <observationRange> <text>98-110</text> </observationRange> </referenceRange> </observation> </component> <component> <observation moodCode="EVN" classCode ="OBS"> <templateId root="16.840.1.388831.10.20.22.4.2" /> < id nullFlavor="NA" /> <code codeSystem="local" code="CO2" displayName= "CARBON DIOXIDE" /> <statusCode code="completed" /> < effectiveTime value="075213679174" /> <value unit="mmol/L" xsi:type="PQ " value="25" /> <referenceRange> <observationRange> <text>21-32</text> </observationRange> </ referenceRange> </observation> </component> <component> <observation moodCode="EVN" classCode="OBS"> <templateId root= "06.27.840.1.793930.1022.4.2" /> <id nullFlavor="NA" /> < code codeSystem="local" code="CAION" displayName="CALCIUM IONIZED" /> < statusCode code="completed" /> <effectiveTime value="669197157820" /> <value unit="mg/dL" xsi:type="PQ" value="4.7" /> < referenceRange> <observationRange> <text>4.5-5.3</text> </observationRange> </referenceRange> </observation > </component> <component> <observation moodCode="EVN" classCode="OBS"> <templateId root="06.27.840.1.363590.10.20.22.4.2" /> <id nullFlavor="NA" /> <code codeSystem="local" code="MB" displayName="Microbiology" /> <statusCode code="completed" /> <effectiveTime value="980867972449" /> <value unit="" xsi:type="PQ" value="" /> <referenceRange> <observationRange> <text /> </observationRange> </referenceRange> </ observation> </component> </organizer> </entry> <entry> <organizer moodCode="EVN" classCode="BATTERY"> <templateId root= "216.840.1.979666.10..4.1" /> <id nullFlavor="NA" /> <code codeSystem="local" code="UANRC" displayName="URINALYSIS, NO REFLEX CULTURE" /> <statusCode code="completed" /> <component> <observation moodCode="EVN" classCode="OBS"> <templateId root= "216.840.1.268949.10...4.2" /> <id nullFlavor="NA" /> < code codeSystem="local" code="LEUESU" displayName="UA LEUKOCYTE ESTERASE DIPSTICK" /> <statusCode code="completed" /> <effectiveTime value="005745479358" /> <value unit="" xsi:type="PQ" value="2+" /> <interpretationCode codeSystem="local" code="*" /> < referenceRange> <observationRange> <text>NEGATIVE</text > </observationRange> </referenceRange> </observation > </component> <component> <observation moodCode="EVN" classCode="OBS"> <templateId root="216.840.1.395696.10..4.2" /> <id nullFlavor="NA" /> <code codeSystem="local" code="NITRIU" displayName="UA NITRITE DIPSTICK" /> <statusCode code="completed" /> <effectiveTime value="855148404422" /> <value unit="" xsi:type= "PQ" value="NEGATIVE" /> <referenceRange> <observationRange > <text>NEGATIVE</text> </observationRange> </ referenceRange> </observation> </component> <component> <observation moodCode="EVN" classCode="OBS"> <templateId root= "06.27.840.1.350977.10..22.4.2" /> <id nullFlavor="NA" /> < code codeSystem="local" code="PROTEIU" displayName="UA PROTEIN DIPSTICK" /> <statusCode code="completed" /> <effectiveTime value= "254237079330" /> <value unit="" xsi:type="PQ" value="1+" /> < interpretationCode codeSystem="local" code="*" /> <referenceRange> <observationRange> <text>NEGATIVE</text> </ observationRange> </referenceRange> </observation> </ component> <component> <observation moodCode="EVN" classCode="OBS"> <templateId root="840.1.701862.02.28.224.2" /> <id nullFlavor="NA" /> <code codeSystem="local" code="DGLUU" displayName= "UA GLUCOSE DIPSTICK" /> <statusCode code="completed" /> < effectiveTime value="270602408456" /> <value unit="" xsi:type="PQ" value="NEGATIVE" /> <referenceRange> <observationRange> <text>NEGATIVE</text> </observationRange> </ referenceRange> </observation> </component> <component> <observation moodCode="EVN" classCode="OBS"> <templateId root= "06.27.840.1.757398.102022.4.2" /> <id nullFlavor="NA" /> < code codeSystem="local" code="KETONU" displayName="UA KETONE DIPSTICK" /> <statusCode code="completed" /> <effectiveTime value=" " /> <value unit="" xsi:type="PQ" value="NEGATIVE" /> < referenceRange> <observationRange> <text>NEGATIVE</text > </observationRange> </referenceRange> </observation > </component> <component> <observation moodCode="EVN" classCode="OBS"> <templateId root="06.27.840.1.405459.02.28.22.4.2" /> <id nullFlavor="NA" /> <code codeSystem="local" code="UROBILU " displayName="UA UROBILINOGEN DIPSTICK" /> <statusCode code="completed " /> <effectiveTime value="" /> <value unit="" xsi :type="PQ" value="NORMAL" /> <referenceRange> < observationRange> <text>NORMAL</text> </observationRange > </referenceRange> </observation> </component> < component> <observation moodCode="EVN" classCode="OBS"> < templateId root="06.27.840.1.042661.02.28.22.4.2" /> <id nullFlavor="NA " /> <code codeSystem="local" code="BILU" displayName="UA BILIRUBIN DIPSTICK" /> <statusCode code="completed" /> <effectiveTime value="" /> <value unit="" xsi:type="PQ" value="NEGATIVE" / > <referenceRange> <observationRange> <text> NEGATIVE</text> </observationRange> </referenceRange> </observation> </component> <component> <observation moodCode ="EVN" classCode="OBS"> <templateId root= "06.27.840.1.960388.02.28.22.4.2" /> <id nullFlavor="NA" /> < code codeSystem="local" code="NOLVIA" displayName="UA BLOOD DIPSTICK" /> < statusCode code="completed" /> <effectiveTime value="" /> <value unit="" xsi:type="PQ" value="1+" /> < interpretationCode codeSystem="local" code="*" /> <referenceRange> <observationRange> <text>NEGATIVE</text> </ observationRange> </referenceRange> </observation> </ component> <component> <observation moodCode="EVN" classCode="OBS"> <templateId root="216.840.1.743369.02.28.22.4.2" /> <id nullFlavor="NA" /> <code codeSystem="local" code="SPGRU" displayName= "UA SPECIFIC GRAVITY" /> <statusCode code="completed" /> < effectiveTime value="" /> <value unit="" xsi:type="PQ" value="1.010" /> <interpretationCode codeSystem="local" code="*" /> <referenceRange> <observationRange> <text>1.015- 1.025</text> </observationRange> </referenceRange> </ observation> </component> <component> <observation moodCode= "EVN" classCode="OBS"> <templateId root="216.840.1.214806.10.4.2 " /> <id nullFlavor="NA" /> <code codeSystem="local" code="DIETER " displayName="UR PH" /> <statusCode code="completed" /> < effectiveTime value="389841680701" /> <value unit="" xsi:type="PQ" value="8.0" /> <interpretationCode codeSystem="local" code="*" /> <referenceRange> <observationRange> <text>5.0-7.0</ text> </observationRange> </referenceRange> </ observation> </component> </organizer> </entry> <entry> <organizer moodCode="EVN" classCode="BATTERY"> <templateId root= "216.840.1.647858.10..4.1" /> <id nullFlavor="NA" /> <code codeSystem="local" code="UAMICRO" displayName="UA MICROSCOPIC" /> < statusCode code="completed" /> <component> <observation moodCode= "EVN" classCode="OBS"> <templateId root="216.840.1.543071.10..4.2 " /> <id nullFlavor="NA" /> <code codeSystem="local" code= "BACU" displayName="UA BACTERIA" /> <statusCode code="completed" /> <effectiveTime value="139481849909" /> <value unit="" xsi:type= "PQ" value="2+" /> <interpretationCode codeSystem="local" code="*" /> <referenceRange> <observationRange> <text> NEGATIVE</text> </observationRange> </referenceRange> </observation> </component> <component> <observation moodCode ="EVN" classCode="OBS"> <templateId root= "16.840.1.909312.02.28.22.4.2" /> <id nullFlavor="NA" /> < code codeSystem="local" code="EPIU" displayName="UA EPITHELIAL CELLS" /> <statusCode code="completed" /> <effectiveTime value="029999787161" /> <value unit="epi/hpf" xsi:type="PQ" value="1+" /> < referenceRange> <observationRange> <text>0 - 1+</text> </observationRange> </referenceRange> </observation> </component> <component> <observation moodCode="EVN" classCode ="OBS"> <templateId root="216.840.1.065746.10.4.2" /> < id nullFlavor="NA" /> <code codeSystem="local" code="MUCUSU" displayName="UA MUCUS" /> <statusCode code="completed" /> < effectiveTime value="" /> <value unit="" xsi:type="PQ" value="2+" /> <interpretationCode codeSystem="local" code="*" /> <referenceRange> <observationRange> <text>NEG TO 1+< /text> </observationRange> </referenceRange> </ observation> </component> <component> <observation moodCode= "EVN" classCode="OBS"> <templateId root="216.840.1.027186.02.28.22.4.2 " /> <id nullFlavor="NA" /> <code codeSystem="local" code= "RBCU" displayName="UA RBC" /> <statusCode code="completed" /> <effectiveTime value="" /> <value unit="rbc/hpf" xsi:type ="PQ" value="0-3" /> <referenceRange> <observationRange> <text>0 - 3</text> </observationRange> </ referenceRange> </observation> </component> <component> <observation moodCode="EVN" classCode="OBS"> <templateId root= "216.840.1.655685.02.28.22.4.2" /> <id nullFlavor="NA" /> < code codeSystem="local" code="UAVOL" displayName="UA VOLUME FOR EXAM" /> <statusCode code="completed" /> <effectiveTime value="" /> <value unit="mL" xsi:type="PQ" value="12.0" /> < referenceRange> <observationRange> <text>(12mL STD)</ text> </observationRange> </referenceRange> </ observation> </component> <component> <observation moodCode= "EVN" classCode="OBS"> <templateId root="16.840.1.785467.10.4.2 " /> <id nullFlavor="NA" /> <code codeSystem="local" code= "WBCU" displayName="UA WBC" /> <statusCode code="completed" /> <effectiveTime value="617731342752" /> <value unit="wbc/hpf" xsi:type ="PQ" value="5-10" /> <interpretationCode codeSystem="local" code="*" / > <referenceRange> <observationRange> <text>0 - 5</text> </observationRange> </referenceRange> </ observation> </component> </organizer> </entry> <entry> <organizer moodCode="EVN" classCode="BATTERY"> <templateId root= "840.1.415752.02.28.22.4.1" /> <id nullFlavor="NA" /> <code codeSystem="local" code="CBCD" displayName="CBC W/DIFF" /> <statusCode code ="completed" /> <component> <observation moodCode="EVN" classCode= "OBS"> <templateId root="840.1.417843.10.4.2" /> < id nullFlavor="NA" /> <code codeSystem="local" code="BA#" displayName= "BASOPHIL #" /> <statusCode code="completed" /> < effectiveTime value="968058699882" /> <value unit="k/cumm" xsi:type="PQ " value="0.0" /> <referenceRange> <observationRange> <text>0.0-0.2</text> </observationRange> </ referenceRange> </observation> </component> <component> <observation moodCode="EVN" classCode="OBS"> <templateId root= "06.27.840.1.442879.10...4.2" /> <id nullFlavor="NA" /> < code codeSystem="local" code="BA%" displayName="BASOPHIL %" /> <statusCode code="completed" /> <effectiveTime value="460392972952" /> <value unit="%" xsi:type="PQ" value="1" /> < referenceRange> <observationRange> <text>0-1</text> </observationRange> </referenceRange> </observation> </component> <component> <observation moodCode="EVN" classCode= "OBS"> <templateId root="840.1.974618.10.4.2" /> < id nullFlavor="NA" /> <code codeSystem="local" code="EO#" displayName= "EOSINOPHIL #" /> <statusCode code="completed" /> < effectiveTime value="281603326573" /> <value unit="k/cumm" xsi:type="PQ " value="0.2" /> <referenceRange> <observationRange> <text>0.1-0.5</text> </observationRange> </ referenceRange> </observation> </component> <component> <observation moodCode="EVN" classCode="OBS"> <templateId root= "06.27.840.1.847348.10.2022.4.2" /> <id nullFlavor="NA" /> < code codeSystem="local" code="EO%" displayName="EOSINOPHIL %" /> <statusCode code="completed" /> <effectiveTime value="813010496898" /> <value unit="%" xsi:type="PQ" value="4" /> < referenceRange> <observationRange> <text>2-4</text> </observationRange> </referenceRange> </observation> </component> <component> <observation moodCode="EVN" classCode= "OBS"> <templateId root="16.840.1.771211.10...4.2" /> < id nullFlavor="NA" /> <code codeSystem="local" code="GR#" displayName= "GRANULOCYTE #" /> <statusCode code="completed" /> < effectiveTime value="840415835483" /> <value unit="k/cumm" xsi:type="PQ " value="4.1" /> <referenceRange> <observationRange> <text>2.0-9.0</text> </observationRange> </ referenceRange> </observation> </component> <component> <observation moodCode="EVN" classCode="OBS"> <templateId root= "216.840.1.288280.10...4.2" /> <id nullFlavor="NA" /> < code codeSystem="local" code="GR%" displayName="GRANULOCYTE %" /> <statusCode code="completed" /> <effectiveTime value="970444664189 " /> <value unit="%" xsi:type="PQ" value="60" /> < referenceRange> <observationRange> <text>50-75</text> </observationRange> </referenceRange> </observation> </component> <component> <observation moodCode="EVN" classCode= "OBS"> <templateId root="216.840.1.026461.02.28.22.4.2" /> < id nullFlavor="NA" /> <code codeSystem="local" code="LY#" displayName= "LYMPHOCYTE #" /> <statusCode code="completed" /> < effectiveTime value="063909129035" /> <value unit="k/cumm" xsi:type="PQ " value="1.9" /> <referenceRange> <observationRange> <text>1.0-4.0</text> </observationRange> </ referenceRange> </observation> </component> <component> <observation moodCode="EVN" classCode="OBS"> <templateId root= "216.840.1.811992.02.28.224.2" /> <id nullFlavor="NA" /> < code codeSystem="local" code="LY%" displayName="LYMPHOCYTE %" /> <statusCode code="completed" /> <effectiveTime value="371337585499" /> <value unit="%" xsi:type="PQ" value="27" /> < referenceRange> <observationRange> <text>20-30</text> </observationRange> </referenceRange> </observation> </component> <component> <observation moodCode="EVN" classCode= "OBS"> <templateId root="16.840.1.058893.10.4.2" /> < id nullFlavor="NA" /> <code codeSystem="local" code="MCH" displayName= "MEAN CELL HGB" /> <statusCode code="completed" /> < effectiveTime value="524171247418" /> <value unit="pg" xsi:type="PQ" value="30.0" /> <referenceRange> <observationRange> <text>27.0-33.0</text> </observationRange> </ referenceRange> </observation> </component> <component> <observation moodCode="EVN" classCode="OBS"> <templateId root= "16.840.1.242199.10.22.4.2" /> <id nullFlavor="NA" /> < code codeSystem="local" code="MCHC" displayName="MEAN CELL HGB CONCENTRATION" / > <statusCode code="completed" /> <effectiveTime value= "" /> <value unit="g/dL" xsi:type="PQ" value="33.8" /> <referenceRange> <observationRange> <text>32.0- 37.0</text> </observationRange> </referenceRange> </ observation> </component> <component> <observation moodCode= "EVN" classCode="OBS"> <templateId root="06.27.840.1.838235.02.28.22.4.2 " /> <id nullFlavor="NA" /> <code codeSystem="local" code="MCV " displayName="MEAN CELL VOLUME" /> <statusCode code="completed" /> <effectiveTime value="" /> <value unit="fl" xsi:type ="PQ" value="88.8" /> <referenceRange> <observationRange> <text>80.0-100.0</text> </observationRange> </ referenceRange> </observation> </component> <component> <observation moodCode="EVN" classCode="OBS"> <templateId root= "06.27.840.1.903483.10.22.4.2" /> <id nullFlavor="NA" /> < code codeSystem="local" code="MO#" displayName="MONOCYTE #" /> < statusCode code="completed" /> <effectiveTime value="172523318861" /> <value unit="k/cumm" xsi:type="PQ" value="0.6" /> < referenceRange> <observationRange> <text>0.1-1.0</text> </observationRange> </referenceRange> </observation > </component> <component> <observation moodCode="EVN" classCode="OBS"> <templateId root="216.840.1.591723.02.28.22.4.2" /> <id nullFlavor="NA" /> <code codeSystem="local" code="MO% " displayName="MONOCYTE %" /> <statusCode code="completed" /> <effectiveTime value="569882807878" /> <value unit="%" xsi: type="PQ" value="9" /> <interpretationCode codeSystem="local" code="*" /> <referenceRange> <observationRange> <text>4- 6</text> </observationRange> </referenceRange> </ observation> </component> <component> <observation moodCode= "EVN" classCode="OBS"> <templateId root="216.840.1.279069.02.28.22.4.2 " /> <id nullFlavor="NA" /> <code codeSystem="local" code="RBC " displayName="RED BLOOD CELL" /> <statusCode code="completed" /> <effectiveTime value="372516148632" /> <value unit="m/cumm" xsi: type="PQ" value="3.57" /> <interpretationCode codeSystem="local" code= "*" /> <referenceRange> <observationRange> < text>4.00-6.00</text> </observationRange> </referenceRange> </observation> </component> <component> <observation moodCode="EVN" classCode="OBS"> <templateId root= "216.840.1.729552.02.28.22.4.2" /> <id nullFlavor="NA" /> < code codeSystem="local" code="RDW" displayName="RED CELL DISTRIBUTION WIDTH" /> <statusCode code="completed" /> <effectiveTime value= "279740753375" /> <value unit="%" xsi:type="PQ" value="13.5" /> <referenceRange> <observationRange> <text>11.0- 15.6</text> </observationRange> </referenceRange> </ observation> </component> <component> <observation moodCode= "EVN" classCode="OBS"> <templateId root="2.16.840.1.613618.02.28.224.2 " /> <id nullFlavor="NA" /> <code codeSystem="local" code="WBC " displayName="WHITE BLOOD CELL" /> <statusCode code="completed" /> <effectiveTime value="532163839016" /> <value unit="k/cumm" xsi: type="PQ" value="6.9" /> <referenceRange> <observationRange > <text>5.0-10.0</text> </observationRange> </ referenceRange> </observation> </component> <component> <observation moodCode="EVN" classCode="OBS"> <templateId root= "2.16.840.1.232282.02.28.22.4.2" /> <id nullFlavor="NA" /> < code codeSystem="local" code="HGBT" displayName="HEMOGLOBIN" /> < statusCode code="completed" /> <effectiveTime value="445792262700" /> <value unit="gm/dL" xsi:type="PQ" value="10.7" /> < interpretationCode codeSystem="local" code="*" /> <referenceRange> <observationRange> <text>12.0-16.0</text> </ observationRange> </referenceRange> </observation> </ component> <component> <observation moodCode="EVN" classCode="OBS"> <templateId root="216.840.1.833610.10..22.4.2" /> <id nullFlavor="NA" /> <code codeSystem="local" code="HCTT" displayName= "HEMATOCRIT" /> <statusCode code="completed" /> < effectiveTime value="409258443295" /> <value unit="%" xsi:type="PQ " value="31.7" /> <interpretationCode codeSystem="local" code="*" /> <referenceRange> <observationRange> <text>37.0- 47.0</text> </observationRange> </referenceRange> </ observation> </component> <component> <observation moodCode= "EVN" classCode="OBS"> <templateId root="16.840.1.434254.10..4.2 " /> <id nullFlavor="NA" /> <code codeSystem="local" code="PLT " displayName="PLATELET COUNT" /> <statusCode code="completed" /> <effectiveTime value="973537678382" /> <value unit="k/cumm" xsi: type="PQ" value="275" /> <referenceRange> <observationRange > <text>150-450</text> </observationRange> </ referenceRange> </observation> </component> </organizer> </entry > <entry> <organizer moodCode="EVN" classCode="BATTERY"> <templateId root="216.840.1.720268.10..22.4.1" /> <id nullFlavor="NA" /> <code codeSystem="local" code="PREG" displayName=" TEST, SERUM" /> < statusCode code="completed" /> <component> <observation moodCode= "EVN" classCode="OBS"> <templateId root="216.840.1.931309.10..22.4.2 " /> <id nullFlavor="NA" /> <code codeSystem="local" code= "PREG" displayName=" TEST, SERUM" /> <statusCode code= "completed" /> <effectiveTime value="743323745540" /> <value unit="" xsi:type="PQ" value="NEGATIVE" /> <referenceRange> < observationRange> <text>NEGATIVE</text> </ observationRange> </referenceRange> </observation> </ component> </organizer> </entry> <entry> <organizer moodCode="EVN" classCode="BATTERY"> <templateId root="216.840.1.568415.10..22.4.1" /> <id nullFlavor="NA" /> <code codeSystem="local" code="PT" displayName= "PROTHROMBIN TIME WITH INR" /> <statusCode code="completed" /> < component> <observation moodCode="EVN" classCode="OBS"> < templateId root="216.840.1.385640.10..22.4.2" /> <id nullFlavor="NA " /> <code codeSystem="local" code="INRX" displayName="INTERNATIONAL NORMAL RATIO" /> <statusCode code="completed" /> < effectiveTime value="464552213273" /> <value unit="" xsi:type="PQ" value="1.1" /> <referenceRange> <observationRange> <text>0.9-1.1</text> </observationRange> </ referenceRange> </observation> </component> <component> <observation moodCode="EVN" classCode="OBS"> <templateId root= "840.1.812642.10..22.4.2" /> <id nullFlavor="NA" /> < code codeSystem="local" code="PTPAT" displayName="PROTHROMBIN TIME" /> <statusCode code="completed" /> <effectiveTime value="623325387774" /> <value unit="sec" xsi:type="PQ" value="12.3" /> < referenceRange> <observationRange> <text>10.0-12.9</text > </observationRange> </referenceRange> </observation > </component> </organizer> </entry> <entry> <organizer moodCode= "EVN" classCode="BATTERY"> <templateId root="216.840.1.319227.10..22.4.1 " /> <id nullFlavor="NA" /> <code codeSystem="local" code="PTT" displayName="PARTIAL THROMBOPLASTIN TIME" /> <statusCode code="completed" / > <component> <observation moodCode="EVN" classCode="OBS"> <templateId root="216.840.1.730660.10..22.4.2" /> <id nullFlavor="NA " /> <code codeSystem="local" code="PTT" displayName="PARTIAL THROMBOPLASTIN TIME" /> <statusCode code="completed" /> < effectiveTime value="321255431668" /> <value unit="sec" xsi:type="PQ" value="33" /> <referenceRange> <observationRange> <text>25-37</text> </observationRange> </referenceRange > </observation> </component> </organizer> </entry> <entry> <organizer moodCode="EVN" classCode="BATTERY"> <templateId root= "216.840.1.451655.10..22.4.1" /> <id nullFlavor="NA" /> <code codeSystem="local" code="METABC" displayName="METABOLIC PANEL, COMPREHN" /> <statusCode code="completed" /> <component> <observation moodCode= "EVN" classCode="OBS"> <templateId root="06.27.840.1.311144.10..22.4.2 " /> <id nullFlavor="NA" /> <code codeSystem="local" code="K" displayName="POTASSIUM" /> <statusCode code="completed" /> < effectiveTime value="882779441092" /> <value unit="mmol/L" xsi:type="PQ " value="3.1" /> <interpretationCode codeSystem="local" code="*" /> <referenceRange> <observationRange> <text>3.5-5.3 </text> </observationRange> </referenceRange> </ observation> </component> <component> <observation moodCode= "EVN" classCode="OBS"> <templateId root="840.1.375837.02.28.22.4.2 " /> <id nullFlavor="NA" /> <code codeSystem="local" code= "eGFR" displayName="EST GFR (MDRD)" /> <statusCode code="completed" /> <effectiveTime value="905207270171" /> <value unit="mL/min" xsi:type="PQ" value="> 60" /> <referenceRange> < observationRange> <text>> 59</text> </ observationRange> </referenceRange> </observation> </ component> <component> <observation moodCode="EVN" classCode="OBS"> <templateId root="06.27.840.1.144045.10...4.2" /> <id nullFlavor="NA" /> <code codeSystem="local" code="GAP" displayName= "ANION GAP" /> <statusCode code="completed" /> <effectiveTime value="618130438715" /> <value unit="mmol/L" xsi:type="PQ" value="11" / > <referenceRange> <observationRange> <text>5- 15</text> </observationRange> </referenceRange> </ observation> </component> <component> <observation moodCode= "EVN" classCode="OBS"> <templateId root="2.16.840.1.942924.10..22.4.2 " /> <id nullFlavor="NA" /> <code codeSystem="local" code= "eCrCl" displayName="EST CrCl (CG)" /> <statusCode code="completed" /> <effectiveTime value="346494478565" /> <value unit="mL/min" xsi:type="PQ" value="> 60" /> <referenceRange> < observationRange> <text>> 59</text> </ observationRange> </referenceRange> </observation> </ component> <component> <observation moodCode="EVN" classCode="OBS"> <templateId root="216.840.1.151170.10..22.4.2" /> <id nullFlavor="NA" /> <code codeSystem="local" code="GLU" displayName= "GLUCOSE" /> <statusCode code="completed" /> <effectiveTime value="652779575344" /> <value unit="mg/dL" xsi:type="PQ" value="82" / > <referenceRange> <observationRange> <text>70- 99</text> </observationRange> </referenceRange> </ observation> </component> <component> <observation moodCode= "EVN" classCode="OBS"> <templateId root="216.840.1.783203...22.4.2 " /> <id nullFlavor="NA" /> <code codeSystem="local" code="CA " displayName="CALCIUM" /> <statusCode code="completed" /> < effectiveTime value="372811701052" /> <value unit="mg/dL" xsi:type="PQ " value="9.0" /> <referenceRange> <observationRange> <text>8.5-10.1</text> </observationRange> </ referenceRange> </observation> </component> <component> <observation moodCode="EVN" classCode="OBS"> <templateId root= "2.16.840.1.565883.10..22.4.2" /> <id nullFlavor="NA" /> < code codeSystem="local" code="BUN" displayName="BLOOD UREA NITROGEN" /> <statusCode code="completed" /> <effectiveTime value="441616799280" / > <value unit="mg/dL" xsi:type="PQ" value="16" /> < referenceRange> <observationRange> <text>7-20</text> </observationRange> </referenceRange> </observation> </component> <component> <observation moodCode="EVN" classCode= "OBS"> <templateId root="2.16.840.1.376042.10..22.4.2" /> < id nullFlavor="NA" /> <code codeSystem="local" code="CREAT" displayName ="CREATININE" /> <statusCode code="completed" /> < effectiveTime value="182756624154" /> <value unit="mg/dL" xsi:type="PQ " value="0.9" /> <referenceRange> <observationRange> <text>0.6-1.0</text> </observationRange> </ referenceRange> </observation> </component> <component> <observation moodCode="EVN" classCode="OBS"> <templateId root= "216.840.1.211725.10..22.4.2" /> <id nullFlavor="NA" /> < code codeSystem="local" code="NA" displayName="SODIUM" /> <statusCode code="completed" /> <effectiveTime value="257003835062" /> < value unit="mmol/L" xsi:type="PQ" value="144" /> <referenceRange> <observationRange> <text>135-148</text> </ observationRange> </referenceRange> </observation> </ component> <component> <observation moodCode="EVN" classCode="OBS"> <templateId root="216.840.1.251412.10..22.4.2" /> <id nullFlavor="NA" /> <code codeSystem="local" code="CL" displayName= "CHLORIDE" /> <statusCode code="completed" /> <effectiveTime value="072039558579" /> <value unit="mmol/L" xsi:type="PQ" value="103" /> <referenceRange> <observationRange> <text>98 -110</text> </observationRange> </referenceRange> </ observation> </component> <component> <observation moodCode= "EVN" classCode="OBS"> <templateId root="16.840.1.758616.10..22.4.2 " /> <id nullFlavor="NA" /> <code codeSystem="local" code="AST " displayName="AST/SGOT" /> <statusCode code="completed" /> < effectiveTime value="518203047813" /> <value unit="Units/L" xsi:type= "PQ" value="14" /> <referenceRange> <observationRange> <text>10-37</text> </observationRange> </ referenceRange> </observation> </component> <component> <observation moodCode="EVN" classCode="OBS"> <templateId root= "2.16.840.1.886637.10.4.2" /> <id nullFlavor="NA" /> < code codeSystem="local" code="ALT" displayName="ALT/SGPT" /> < statusCode code="completed" /> <effectiveTime value="945464002453" /> <value unit="Units/L" xsi:type="PQ" value="9" /> < referenceRange> <observationRange> <text>< 66</text> </observationRange> </referenceRange> </observation > </component> <component> <observation moodCode="EVN" classCode="OBS"> <templateId root="216.840.1.557379.02.28.22.4.2" /> <id nullFlavor="NA" /> <code codeSystem="local" code="CO2" displayName="CARBON DIOXIDE" /> <statusCode code="completed" /> <effectiveTime value="236529631541" /> <value unit="mmol/L" xsi:type ="PQ" value="30" /> <referenceRange> <observationRange> <text>21-32</text> </observationRange> </ referenceRange> </observation> </component> <component> <observation moodCode="EVN" classCode="OBS"> <templateId root= "216.840.1.331832.10..4.2" /> <id nullFlavor="NA" /> < code codeSystem="local" code="TP" displayName="TOTAL PROTEIN" /> < statusCode code="completed" /> <effectiveTime value="841703238060" /> <value unit="gm/dL" xsi:type="PQ" value="6.8" /> < referenceRange> <observationRange> <text>6.4-8.2</text> </observationRange> </referenceRange> </observation > </component> <component> <observation moodCode="EVN" classCode="OBS"> <templateId root="16.840.1.866073.10.20.22.4.2" /> <id nullFlavor="NA" /> <code codeSystem="local" code="ALB" displayName="ALBUMIN" /> <statusCode code="completed" /> < effectiveTime value="545692969475" /> <value unit="gm/dL" xsi:type="PQ " value="3.6" /> <referenceRange> <observationRange> <text>3.4-5.0</text> </observationRange> </ referenceRange> </observation> </component> <component> <observation moodCode="EVN" classCode="OBS"> <templateId root= "06.27.840.1.963317.10...4.2" /> <id nullFlavor="NA" /> < code codeSystem="local" code="BILTOT" displayName="BILI TOTAL" /> < statusCode code="completed" /> <effectiveTime value="724472563888" /> <value unit="mg/dL" xsi:type="PQ" value="0.3" /> < referenceRange> <observationRange> <text>0.0-1.0</text> </observationRange> </referenceRange> </observation > </component> <component> <observation moodCode="EVN" classCode="OBS"> <templateId root="16.840.1.649733.10.20.22.4.2" /> <id nullFlavor="NA" /> <code codeSystem="local" code="ALKP" displayName="ALKALINE PHOSPHATASE TOTAL" /> <statusCode code="completed " /> <effectiveTime value="679100171858" /> <value unit="IU/L " xsi:type="PQ" value="66" /> <referenceRange> < observationRange> <text>45-117</text> </observationRange > </referenceRange> </observation> </component> </ organizer> </entry> <entry> <organizer moodCode="EVN" classCode="BATTERY"> <templateId root="2.16.840.1.534940.10.20.22.4.1" /> <id nullFlavor= "NA" /> <code codeSystem="local" code="TSH" displayName="THYROID STIM HORMONE (TSH)" /> <statusCode code="completed" /> <component> < observation moodCode="EVN" classCode="OBS"> <templateId root= "2.16.840.1.840914.10.20.22.4.2" /> <id nullFlavor="NA" /> < code codeSystem="local" code="TSH" displayName="THYROID STIM HORMONE (TSH)" /> <statusCode code="completed" /> <effectiveTime value= "798116082536" /> <value unit="uIU/mL" xsi:type="PQ" value="2.48" /> <referenceRange> <observationRange> <text>0.34- 4.82</text> </observationRange> </referenceRange> </ observation> </component> </organizer> </entry></section> Encounters ACCT No. Visit Date/Time Discharge Status Pt. Type Provider Facility Loc./Unit Complaint [id number] 11/09/2016 16:32:00 11/09/2016 16:58:00 [id number] 09/06/2016 12:52:00 09/06/2016 16:30:00 DIS Emergency Secrist DO, [facility] W.EDW [id number] 07/31/2016 16:36:00 07/31/2016 16:56:00 DIS Emergency Stiven Moralez DO [facility] W.EDW [id number] 01/11/2016 08:16:00 01/11/2016 08:47:00 DIS Emergency Marc TA, [facility] W.EDW [id number] 12/28/2015 19:32:00 12/28/2015 20:25:00 DIS Emergency Marc TA, [facility] W.EDW [id number] 11/28/2015 08:04:00 11/28/2015 08:30:00 DIS Emergency Jesica TA, [facility].EDW [id number] 01/04/2015 09:52:00 01/04/2015 13:04:00 DIS Emergency [place] , [facility] W.[facility] [id number] 01/01/2015 09:22:00 01/01/2015 12:40:00 DIS Emergency Secrist , [facility].EDW [id number] 12/27/2014 21:37:00 12/27/2014 23:13:00 DIS Emergency Marc TA, [facility] W.EDW [id number] 09/17/2014 10:42:00 09/17/2014 11:10[facility]
[2017-05-29] MEDS ORDERED: NS IV 1000 ML 1,000 ML IV ONE (02:43)
[2017-05-29] MEDS ORDERED: fentaNYL INJECTION 100 MCG/2 ML AMP IVP ONE (02:45)
[2017-05-29 02:47] LABS: BILIRUBIN,URINE NEGATIVE (NEGATIVE); CLARITY,URINE SLIGHTLY CLOUDY; COLOR,URINE YELLOW; GLUCOSE, URINE (UA) NEGATIVE (NEGATIVE); KETONES,URINE NEGATIVE (NEGATIVE); LEUKOCYTE ESTERASE ,URINE NEGATIVE (NEGATIVE); NITRITE,URINE NEGATIVE (NEGATIVE); PH,URINE 6.5 (5-9); PROTEIN,URINE NEGATIVE (NEGATIVE); UROBILINOGEN,URINE NORMAL (NORMAL)
[2017-05-29 02:54] LABS: BACTERIA,URINE TRACE /HPF; RBC,URINE 0-2 /HPF
[2017-05-29 02:55] LABS: BASOPHILS % (AUTO) 1 % (0-10); EOSINOPHILS # (AUTO) 0.3 10^3/uL (0.0-0.3); EOSINOPHILS % (AUTO) 6 % (0-10); HEMATOCRIT 31 % (35-52); HEMOGLOBIN 9.7 G/DL (11.5-16.0); LYMPHOCYTES # (AUTO) 1.7 X 10^3 (1.0-4.0); LYMPHOCYTES % (AUTO) 31 % (12-44); MEAN CORPUSCULAR HEMOGLOBIN 23 PG (25-34); MEAN CORPUSCULAR HGB CONC 31 G/DL (32-36); MEAN CORPUSCULAR VOLUME 74 FL (80-99); MEAN PLATELET VOLUME 11.2 FL (7.4-10.4); MONOCYTES # (AUTO) 0.6 X 10^3 (0.0-1.0); MONOCYTES % (AUTO) 11 % (0-12); NEUTROPHILS # (AUTO) 2.8 X 10^3 (1.8-7.8); NEUTROPHILS % (AUTO) 51 % (42-75); PLATELET COUNT 181 10^3/uL (130-400); RED CELL DISTRIBUTION WIDTH 21.6 % (10.0-14.5); WHITE BLOOD COUNT 5.5 10^3/uL (4.3-11.0)
[2017-05-29 02:55] LABS: AMORPHOUS SEDIMENT,UR FEW AMOR URATES /LPF
[2017-05-29 03:15] LABS: AMPHETAMINE SCREEN, URINE NEGATIVE (NEGATIVE); BARBITURATE SCREEN URINE NEGATIVE (NEGATIVE); BENZODIAZEPINES SCREEN URINE NEGATIVE (NEGATIVE); CANNABINOID SCREEN, URINE NEGATIVE (NEGATIVE); COCAINE SCREEN URINE NEGATIVE (NEGATIVE); METHADONE STAT NEGATIVE (NEGATIVE); METHAMPHETAMINE SCREEN URINE S NEGATIVE (NEGATIVE); OPIATE SCREEN URINE NEGATIVE (NEGATIVE); OXYCODONE STAT NEGATIVE (NEGATIVE); PROPOXYPHENE STAT NEGATIVE (NEGATIVE); TRICYCLIC ANTIDEPRESSANTS SCRE NEGATIVE (NEGATIVE)
[2017-05-29 03:19] LABS: ALANINE AMINOTRANSFERASE 22 U/L (0-55); ALBUMIN 4.2 GM/DL (3.2-4.5); ALKALINE PHOSPHATASE 67 U/L (40-136); BILIRUBIN,TOTAL 0.3 MG/DL (0.1-1.0); BUN/CREATININE RATIO 24; CARBON DIOXIDE 23 MMOL/L (21-32); CHLORIDE 106 MMOL/L (98-107); CREATININE SERUM 0.75 MG/DL (0.60-1.30); GFR ESTIMATED > 60; GLUCOSE 90 MG/DL (70-105); LIPASE 42 U/L (8-78); POTASSIUM 3.5 MMOL/L (3.6-5.0); SODIUM 139 MMOL/L (135-145); TOTAL PROTEIN 7.2 GM/DL (6.4-8.2)
--- NOTE | 2017-05-29 03:33 | ED Abdominal Pain ---
General Chief Complaint: Abdominal/GI Problems Stated Complaint: LEFT SIDE ABD PAIN Nursing Triage Note: PT PRESENTS TO ED WITH COMPLAINT OF LEFT SIDED ABD PAIN. STATES IT STARTED AN HOUR AGO. Sepsis Screen: No Definite Risk Source of Information: Patient Exam Limitations: No Limitations History of Present Illness Time Seen By Provider: 02:31 Initial Comments This 31-year-old young lady presents to the emergency room with complaints of epigastric and left-sided abdominal pain that started roughly 1 hour prior to arrival. It woke her from sleep. She rates it as a 10. She is also had some nasal congestion without any significant cough or fever. She denies any diarrhea, nausea, vomiting, or constipation. Her last bowel movement was yesterday and she believes she has been regular. Last menstrual period started yesterday. She denies any drug or alcohol use. 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 She states a history of collagenous colitis. She has also had recurrent problems with anemia of unknown cause and has required transfusions. She has had remote problems with constipation as well and has required enemas in the past. She denies any vaginal symptoms. Allergies and Home Medications Allergies Coded Allergies: ciprofloxacin (Unverified Allergy, Unknown, 05/29/17) Home Medications Tramadol HCl 50 Mg Tablet, 50 MG PO Q6H PRN for PAIN-MODERATE TO SEVERE, #10 Prescribed by: SHIRLENE JUAN on 05/29/17 0553 Review of Systems Constitutional: no symptoms reported EENTM: No Symptoms Reported Respiratory: No Symptoms Reported Cardiovascular: No Symptoms Reported Gastrointestinal: See HPI Genitourinary: No Symptoms Reported Musculoskeletal: no symptoms reported Skin: no symptoms reported Psychiatric/Neurological: No Symptoms Reported Endocrine: No Symptoms Reported Hematologic/Lymphatic: See HPI Past Ceqowcb-Hccedb-Mggbss Hx Patient Social History Alcohol Use: Denies Use Smoking Status: Never a Smoker Recent Foreign Travel: No Contact w/Someone Who Travel: No Recent Infectious Disease Expo: No Recent Hopitalizations: No Physical Abuse: No Sexual Abuse: No Seasonal Allergies Seasonal Allergies: No Surgeries History of Surgeries: Yes Surgeries: Section, Tonsillectomy Respiratory History of Respiratory Disorde: No Cardiovascular History of Cardiac Disorders: No Neurological History of Neurological Disord: No Reproductive System : No Last Menstrual Period: May 28, 2017 Genitourinary History of Genitourinary Disor: No Gastrointestinal History of Gastrointestinal Di: Yes (COLLAGENOUS COLITIS) Gastrointestinal Disorders: Colitis Musculoskeletal History of Musculoskeletal Dis: Yes Musculoskeletal Disorders: Scoliosis Endocrine History of Endocrine Disorders: No HEENT History of HEENT Disorders: No Cancer History of Cancer: No Psychosocial History of Psychiatric Problem: No Suicide Risk Score: 0 Integumentary History of Skin or Integumenta: No Blood Transfusions History of Blood Disorders: No Physical Exam Vital Signs VS - Last 72 Hours, by Label 05/29/17 05/29/17 02:40 06:20 Temp 98.9 98.0 Pulse 97 91 Resp 20 16 B/P (MAP) 132/72 (92) Pulse Ox 98 98 O2 Delivery Room Air Room Air Capillary Refill : Less Than 3 Seconds General Appearance: WD/WN, no apparent distress HEENT: PERRL/EOMI, normal ENT inspection, pharynx normal Neck: normal inspection Respiratory: lungs clear, normal breath sounds, no respiratory distress, no accessory muscle use Cardiovascular: regular rate, rhythm, no edema, no murmur Gastrointestinal: normal bowel sounds, guarding (left side of the abdomen), tenderness (epigastrium and left abdomen) Extremities: normal inspection, no pedal edema Back: normal inspection Neurologic/Psychiatric: crew lead II-XII nml as tested, no motor/sensory deficits, alert, normal mood/affect, oriented x 3 Skin: normal color, warm/dry Progress/Results/Core Measures Results/Orders Lab Results Laboratory Tests Test 05/29/17 02:40 05/29/17 02:49 Range/Units Urine Color YELLOW Urine Clarity SLIGHTLY CLOUDY Urine pH 6.5 5-9 Urine Specific Brave 1.020 1.016-1.022 Urine Protein NEGATIVE NEGATIVE Urine Glucose (UA) NEGATIVE NEGATIVE Urine Ketones NEGATIVE NEGATIVE Urine Nitrite NEGATIVE NEGATIVE Urine Bilirubin NEGATIVE NEGATIVE Urine Urobilinogen NORMAL NORMAL MG/DL Urine Leukocyte Esterase NEGATIVE NEGATIVE Urine RBC (Auto) 1+ H NEGATIVE Urine RBC 0-2 /HPF Urine WBC NONE /HPF Urine Squamous Epithelial Cells 5-10 /HPF Urine Crystals PRESENT H /LPF Urine Amorphous Sediment FEW RAMIRO URATES H /LPF Urine Bacteria TRACE /HPF Urine Casts NONE /LPF Urine Mucus SMALL H /LPF Urine Culture Indicated NO Urine Opiates Screen NEGATIVE NEGATIVE Urine Oxycodone Screen NEGATIVE NEGATIVE Urine Methadone Screen NEGATIVE NEGATIVE Urine Propoxyphene Screen NEGATIVE NEGATIVE Urine Barbiturates Screen NEGATIVE NEGATIVE Ur Tricyclic Antidepressants Screen NEGATIVE NEGATIVE Urine Phencyclidine Screen NEGATIVE NEGATIVE Urine Amphetamines Screen NEGATIVE NEGATIVE Urine Methamphetamines Screen NEGATIVE NEGATIVE Urine Benzodiazepines Screen NEGATIVE NEGATIVE Urine Cocaine Screen NEGATIVE NEGATIVE Urine Cannabinoids Screen NEGATIVE NEGATIVE White Blood Count 5.5 4.3-11.0 10^3/uL Red Blood Count 4.20 L 4.35-5.85 10^6/uL Hemoglobin 9.7 L 11.5-16.0 G/DL Hematocrit 31 L 35-52 % Mean Corpuscular Volume 74 L 80-99 FL Mean Corpuscular Hemoglobin 23 L 25-34 PG Mean Corpuscular Hemoglobin Concent 31 L 32-36 G/DL Red Cell Distribution Width 21.6 H 10.0-14.5 % Platelet Count 181 130-400 10^3/uL Mean Platelet Volume 11.2 H 7.4-10.4 FL Neutrophils (%) (Auto) 51 42-75 % Lymphocytes (%) (Auto) 31 12-44 % Monocytes (%) (Auto) 11 0-12 % Eosinophils (%) (Auto) 6 0-10 % Basophils (%) (Auto) 1 0-10 % Neutrophils # (Auto) 2.8 1.8-7.8 X 10^3 Lymphocytes # (Auto) 1.7 1.0-4.0 X 10^3 Monocytes # (Auto) 0.6 0.0-1.0 X 10^3 Eosinophils # (Auto) 0.3 0.0-0.3 10^3/uL Basophils # (Auto) 0.0 0.0-0.1 10^3/uL Sodium Level 139 135-145 MMOL/L Potassium Level 3.5 L 3.6-5.0 MMOL/L Chloride Level 106 98-107 MMOL/L Carbon Dioxide Level 23 21-32 MMOL/L Anion Gap 10 5-14 MMOL/L Blood Urea Nitrogen 18 7-18 MG/DL Creatinine 0.75 0.60-1.30 MG/DL Estimat Glomerular Filtration Rate > 60 BUN/Creatinine Ratio 24 Glucose Level 90 70-105 MG/DL Calcium Level 9.0 8.5-10.1 MG/DL Total Bilirubin 0.3 0.1-1.0 MG/DL Aspartate Amino Transf (AST/SGOT) 22 5-34 U/L Alanine Aminotransferase (ALT/SGPT) 22 0-55 U/L Alkaline Phosphatase 67 40-136 U/L Total Protein 7.2 6.4-8.2 GM/DL Albumin 4.2 3.2-4.5 GM/DL Lipase 42 8-78 U/L Serum Test, Qualitative NEGATIVE NEGATIVE Serum Alcohol < 10 <10 MG/DL My Orders Orders - SHIRLENE GARDNER MD Ua Culture If Indicated (05/29/17 02:31) Cbc With Automated Diff (05/29/17 02:43) Comprehensive Metabolic Panel (05/29/17 02:43) Hcg,Qualitative Serum (05/29/17 02:43) Lipase (05/29/17 02:43) Saline Lock/Iv-Start (05/29/17 02:43) Ns Iv 1000 Ml (Sodium Chloride 0.9%) (05/29/17 02:43) Fentanyl Injection (Sublimaze Injection (05/29/17 02:45) Alcohol (05/29/17 03:00) Drug Screen Stat (Urine) (05/29/17 03:00) Abdomen, Flat & Upright/Decub (05/29/17 03:25) Ct Abdomen/Pelvis W (05/29/17 04:10) Ketorolac Injection (Toradol Injection) (05/29/17 05:15) Iv Push Middle Stitcher Ed (05/29/17 ) Medications Given in ED Vital Signs/I&O Vital Sign - Last 12Hours 05/29/17 05/29/17 02:40 06:20 Temp 98.9 98.0 Pulse 97 91 Resp 20 16 B/P (MAP) 132/72 (92) Pulse Ox 98 98 O2 Delivery Room Air Room Air Blood Pressure Mean: 92 Progress Note #1: Time: 04:14 Progress Note Patient's pain was initially treated with fentanyl. Labs revealed no significant abnormalities. Workup continued with abdominal x-rays. A significant amount of air was noted in the distal colon and in the small bowel. Given the amount of pain the patient has had, bowel obstruction is a consideration. X-rays being followed with CT scan. Progress Note #2: Progress Note Imaging didn't suggest some degree of constipation in the proximal colon. Patient received a liter of IV fluids and was further treated for pain with Toradol. Pelvic exam was not felt necessary at this time due to no vaginal symptoms. Patient was dismissed in improved condition. See discharge instructions. Patient does not yet have a primary care provider and was encouraged to establish with one as soon as possible. Diagnostic Imaging Diagonstic Imaging: Xray Plain Films/CT/US/NM/MRI: abdomen, pelvis Comments KUB and upright abdominal films viewed by me. Report not yet available. There is a large amount of stool in the proximal colon. Small bowel and transverse and distal colon are largely void of stool. However, there is gaseous distention of both the colon and small bowel. There is little gas noted in the pelvis or rectum. Diagonstic Imaging: CT Plain Films/CT/US/NM/MRI: abdomen, pelvis Comments CT abdomen and pelvis was viewed by me. [employer] report reviewed. There is some evidence of increased stool burden in the proximal colon. Otherwise there are no acute abnormalities to account for her pain. Departure Impression Impression: Primary Impression: Left sided abdominal pain of unknown cause Disposition: 01 HOME, SELF-CARE Condition: Improved Departure-Patient Inst. Decision time for Depature: 05:51 Referrals: NO,LOCAL PHYSICIAN (PCP/Family) Primary Care Physician Patient Instructions: Acute Abdomen (Belly Pain), Adult (DC) Add. Discharge Instructions: Consume primarily a clear liquid diet today. Gradually advance your diet with small quantities of bland food as tolerated. Use Tylenol (acetaminophen) and/ or tramadol (Ultram) for pain. If constipation is a concern, consider using stool softeners and laxatives such as MiraLAX (polyethylene glycol). Establish with a primary care provider soon as possible. Return to care if symptoms worsen. All discharge instructions reviewed with patient and/or family. Voiced understanding. Scripts Tramadol HCl (Ultram) 50 Mg Tablet 50 MG PO Q6H Y for PAIN-MODERATE TO SEVERE, #10 TAB Prov: SHIRLENE GARDNER MD 05/29/17 SHIRLENE GARDNER MD May 29, 2017 03:33
[2017-05-29] MEDS ORDERED: KETOROLAC 30 MG/ML VIAL IVP ONE (05:15)
[2017-05-29] MEDS ORDERED: TRAM-42 PO (05:53)
[2017-05-29 06:20] VITALS: BP 118/73
--- NOTE | 2017-05-29 07:12 | Diagnostic Imaging Report ---
PROCEDURE: CT abdomen and pelvis with contrast. TECHNIQUE: Multiple contiguous axial images were obtained through the abdomen and pelvis after administration of intravenous contrast. INDICATION: Left-sided pain. Exam compared 12/09/2013. The gallbladder contracted. The liver, bile ducts, spleen, adrenals and pancreas normal. The unobstructed kidneys appear nonacute with multiple bilateral cortical cysts best seen on the delayed images. The appendix is visualized posterior laterally and oriented cephalad and appeared unremarkable. The colonic fecal load is elevated, consistent with constipation. The uterus is heterogeneous and enlarged. No acute adnexal lesion is identified. No pneumatosis or free air. No ascites. The urinary bladder unremarkable. IMPRESSION: Normal appendix, unobstructed kidneys with bilateral cortical cyst. Uterine enlargement with no acute adnexal abnormality. No obstructive constipation without obstruction or perforation. Dictated by: Dictated on workstation # [id number]
--- NOTE | 2017-05-29 07:36 | Diagnostic Imaging Report ---
INDICATION: Left-sided abdominal pain, history of colitis. FINDINGS: AP view of the abdomen demonstrates increased fluid and gas seen throughout the colon. Small bowel gas pattern appears normal. The lung bases are clear. The osseous structures appear normal. There are no abnormal calcifications. IMPRESSION: There is gaseous colon. Dictated by: Dictated on workstation # [id number]
== END 2017-05-29 06:20 | disposition home or self-care (01) ==
LOC: EDUNIT# 02:26 → ER 02:30
DX: R10.13 Epigastric pain (principal); Z87.19 Personal history of other diseases of the digestive system; Z87.59 Personal history of other complications of pregnancy, childbirth and the puerperium; Z90.89 Acquired absence of other organs
CPT/HCPCS: 36415; 74019; 74177; 80053; 80306; 80320; 81000; 83690; 84703; 85025; 96361; 96374; 96375

== ENCOUNTER 2017-12-01 17:12 | Emergency (ER) | payer MEDICAID ==
[~2017-12-01] VITALS: Ht 160 cm; Wt 58.1 kg
[~2017-12-01 17:12] MED LIST: TRAM-42 PO
--- OUTSIDE RECORDS SUMMARY | 2017-12-01 17:41 | XMS REPORT ---
Author Author SHENA MARIE Organization [facility] Address [address] [place] [address] Care Team Providers Care Emergency Room Registered Nurse Name Role Phone SHENA MARIE Unavailable PROBLEMS Unknown Problems ALLERGIES No Information ENCOUNTERS Encounter Location Date Diagnosis [facility] [address] [address] September, Cellulitis of left knee L03.116 [facility] [address] [place] [id number] Jul, Dental examination Z01.20 and Dental caries K02.9 [facility] [address] [address] Jun, [facility] [address] [place] [phone] Jun, Dental examination Z01.20 and Dental abscess K04.7 [facility] [address] [address] May, IMMUNIZATIONS No Known Immunizations SOCIAL HISTORY Never Assessed REASON FOR VISIT medication RX PLAN OF CARE VITAL SIGNS MEDICATIONS Medication Instructions Dosage Frequency Start Date End Date Duration Status Amoxicillin 500 mg Orally 3 times a day 1 capsule 8h Jun, Jul, 10 day(s) Active RESULTS No Results PROCEDURES No Known procedures INSTRUCTIONS MEDICATIONS ADMINISTERED No Known Medications MEDICAL (GENERAL) HISTORY Type Description Date Medical History Narcotic Addiction Surgical History c section 2014 Surgical History wisdom teeth 2002 Surgical History tonsilectomy 1995 Hospitalization History Blood Transfusion 2016
--- OUTSIDE RECORDS SUMMARY | 2017-12-01 17:41 | XMS REPORT ---
Author Author QUIN MOSS Organization [facility] Address [address] [place] [address] Care Team Providers Care Dressing Room Porter Name Role Phone QUIN MOSS Unavailable PROBLEMS Unknown Problems ALLERGIES Substance Reaction Event Type Date Status Cipro Unknown Drug Allergy Jun, Active ENCOUNTERS Encounter Location Date Diagnosis [facility] [id number] [place] [phone] September, Cellulitis of left knee L03.116 [facility] [address] [place] [phone] Jul, Dental examination Z01.20 and Dental caries K02.9 [facility] [id number] [place] [phone] Jun, [facility] [id number] [place] [phone] Jun, Dental examination Z01.20 and Dental abscess K04.7 [facility] [address] [place] [phone] May, IMMUNIZATIONS No Known Immunizations SOCIAL HISTORY Never Assessed REASON FOR VISIT Tooth pain/swelling UL/LL PLAN OF CARE Activity Details Follow Up prn Reason:dental exam VITAL SIGNS MEDICATIONS Medication Instructions Dosage Frequency Start Date End Date Duration Status Ibuprofen 200 MG Orally Three times a day 1 tablet with food or milk as needed 8h Active RESULTS No Results PROCEDURES Procedure Date Ordered Result Body Site PANORAMIC FILM SEE ALSO CODE 80995 Jul 07, 2017 SCREENING OF A PATIENT Jul 07, 2017 Billing Notes on claim Jul 07, 2017 INSTRUCTIONS MEDICATIONS ADMINISTERED No Known Medications MEDICAL (GENERAL) HISTORY Type Description Date Medical History Narcotic Addiction Surgical History c section 2014 Surgical History wisdom teeth 2001 Surgical History tonsilectomy 1995 Hospitalization History Blood Transfusion 2016
--- OUTSIDE RECORDS SUMMARY | 2017-12-01 17:41 | XMS REPORT ---
Author Author RAYMON SHER Organization [facility] Address [address] [place] [address] Care Team Providers Care Partner Name Role Phone RAYMON SHER Unavailable PROBLEMS Unknown Problems ALLERGIES No Information ENCOUNTERS Encounter Location Date Diagnosis [facility] [address] [place] [phone] September, Cellulitis of left knee L03.116 [facility] [address], [place] [phone] Jul, Dental examination Z01.20 and Dental caries K02.9 [facility] [facility] [address] [place] [phone] Jun, [facility] [address] [address] Jun, Dental examination Z01.20 and Dental abscess K04.7 [facility] [address], [place] [address] May, IMMUNIZATIONS No Known Immunizations SOCIAL HISTORY Never Assessed REASON FOR VISIT appt today PLAN OF CARE VITAL SIGNS MEDICATIONS No Known Medications RESULTS No Results PROCEDURES No Known procedures INSTRUCTIONS MEDICATIONS ADMINISTERED No Known Medications MEDICAL (GENERAL) HISTORY Type Description Date Medical History Narcotic Addiction Surgical History c section 2014 Surgical History wisdom teeth 2002 Surgical History tonsilectomy 1995 Hospitalization History Blood Transfusion 2016
--- NOTE | 2017-12-01 17:50 | Diagnostic Imaging Report ---
INDICATION: Punched the door. Left hand pain. FINDINGS: Three views of the left hand show no fracture, dislocation, or other abnormality. IMPRESSION: Normal left hand. Dictated by: Dictated on workstation # [id number]
--- NOTE | 2017-12-01 17:52 | ED Upper Extremity ---
General Chief Complaint: Upper Extremity Stated Complaint: L HAND INJ Nursing Triage Note: PT CO OF L HAND HURTING FROM PUNCHING CABINET AND WALL, BRUISING NOTED ON 4TH KNUCKLE AND SL SWELLING NOTED Nursing Sepsis Screen: No Definite Risk Source: patient Exam Limitations: no limitations History of Present Illness Date Seen by Provider: Dec 01, 2017 Time Seen by Provider: 17:30 Initial Comments Patient is a 32-year-old female who presents to the emergency room with complaints of punching a cabinet with her left hand twice. She reports that she was angry at her current situation yesterday and she took her anger out on the cabinet and punched it twice. Onset: yesterday Pain/Injury Location: left hand Method of Injury: other (punched a cabinet) Modifying Factors: Improves With Movement Allergies and Home Medications Allergies Coded Allergies: ciprofloxacin (Unverified Allergy, Unknown, 05/29/17) Patient Home Medication List Home Medication List Reviewed: Yes Constitutional: see HPI; No chills, No diaphoresis, No dizziness EENTM: see HPI; No no symptoms reported, No ear discharge, No hearing loss Respiratory: see HPI; No cough, No dyspnea on exertion, No hemoptysis Cardiovascular: see HPI; No chest pain, No edema Gastrointestinal: see HPI; No abdominal pain, No constipation Genitourinary: see HPI; No decreased output, No discharge Musculoskeletal: see HPI; No back pain, No gout; other (ecchymosis and swelling to the left third and fourth knuckle.) Skin: see HPI; No change in color, No change in hair/nails Psychiatric/Neurological: See HPI; Denies Anxiety, Denies Depressed Past Epedheq-Qbokpi-Penuet Hx Past Med/Social Hx: Reviewed Nursing Past Med/Soc Hx Patient Social History Alcohol Use: Occasionally Uses Recreational Drug Use: Yes (15 DAYS SOBER) Drug of Choice: METH AND POT Smoking Status: Current Everyday Smoker Type Used: Cigarettes Recent Foreign Travel: No Contact w/Someone Who Travel: No Recent Infectious Disease Expo: No Recent Hopitalizations: No Physical Abuse: No Sexual Abuse: No Seasonal Allergies Seasonal Allergies: No Past Medical History Surgeries: Yes Section, Tonsillectomy Respiratory: No Cardiac: No Neurological: No Genitourinary: No Gastrointestinal: Yes (COLLAGENOUS COLITIS) Colitis Musculoskeletal: Yes Scoliosis Endocrine: No HEENT: No Cancer: No Psychosocial: No Nursing Suicide Risk Score: 0 Integumentary: No Blood Disorders: No Family Medical History Reviewed Nursing Family Hx Physical Exam Vital Signs Vital Signs - First Documented 12/01/17 17:25 Temp 97.1 Pulse 127 Resp 18 B/P (MAP) 128/99 (109) Pulse Ox 96 Capillary Refill : Less Than 3 Seconds Height, Weight, BMI Height: 5'3.00" Weight: 128lbs. oz. 58.725316ty; BMI Method:Stated General Appearance: WD/WN, no apparent distress HEENT: PERRL/EOMI, normal ENT inspection, TMs normal, pharynx normal Neck: non-tender, full range of motion, supple, normal inspection Cardiovascular: regular rate, rhythm, no edema, no gallop, no JVD, no murmur Respiratory: chest non-tender, lungs clear, normal breath sounds, no respiratory distress, no accessory muscle use Gastrointestinal: normal bowel sounds, non tender, soft, no organomegaly, no pulsatile mass Back: normal inspection, no CVA tenderness, no vertebral tenderness Shoulder: normal inspection, non-tender, no evidence of injury, normal ROM Elbow/Forearm: normal inspection, non-tender, no evidence of injury, normal ROM , Bilateral Wrist: Yes normal inspection, Yes non-tender, Yes no evidence of injury, Yes normal ROM Hand: Left, ecchymosis, swelling (to the third and fourth knuckle on the left hand.) Neurologic/Tendon: normal sensation, normal motor functions, normal tendon functions, responds to pain Neurologic/Psychiatric: alert, normal mood/affect, oriented x 3 Skin: normal color, warm/dry Lymphatic: no adenopathy Progress/Results/Core Measures Results/Orders My Orders Orders - IRISH ECKERT Hand, Left, 3 Views (12/01/17 17:34) Vital Signs/I&O 12/01/17 17:25 Temp 97.1 Pulse 127 Resp 18 B/P (MAP) 128/99 (109) Pulse Ox 96 Blood Pressure Mean: 109 Diagnostic Imaging Diagonstic Imaging: Xray Plain Films/CT/US/NM/MRI: hand Comments NAME: [facility] REC#: [id number] PT STATUS: REG ER : 1985 PHYSICIAN: IRISH ECKERT ADMIT DATE: 12/01/17/ER Draft Date of Exam:12/01/17 HAND, LEFT, 3 VIEWS INDICATION: Punched the door. Left hand pain. FINDINGS: Three views of the left hand show no fracture, dislocation, or other abnormality. IMPRESSION: Normal left hand. Dictated on workstation # [id number] Dict: 12/01/17 1747 Trans: 12/01/17 1749 [id number] Interpreted by: STACEY RED MD Electronically signed by: Reviewed: Reviewed by Me Departure Impression Primary Impression: Contusion of left hand Disposition: HOME, SELF-CARE Condition: Stable/Unchanged Departure-Patient Inst. Decision time for Depature: 17:52 Referrals: NO,LOCAL PHYSICIAN (PCP) Primary Care Physician Patient Instructions: Contusion (DC) Add. Discharge Instructions: You may use ice to the sore areas at 20 minute intervals. You may take ibuprofen and Tylenol as directed by the bottle. Return back to the emergency room for any worsening symptoms or concerns as needed. Follow-up with your doctor within 1 week for recheck. All discharge instructions reviewed with patient and/or family. Voiced understanding. IRISH ECKERT Dec 01, 2017 17:51
[2017-12-01 18:01] VITALS: BP 128/99
== END 2017-12-01 18:01 | disposition home or self-care (01) ==
LOC: EDUNIT# 17:12 → ER 17:13
DX: S60.222A Contusion of left hand, initial encounter (principal); F12.10 Cannabis abuse, uncomplicated; F15.10 Other stimulant abuse, uncomplicated; F17.210 Nicotine dependence, cigarettes, uncomplicated; Z87.59 Personal history of other complications of pregnancy, childbirth and the puerperium; Z90.89 Acquired absence of other organs; Z87.19 Personal history of other diseases of the digestive system; Z88.1 Allergy status to other antibiotic agents; W22.03XA Walked into furniture, initial encounter
CPT/HCPCS: 73130

== ENCOUNTER 2018-01-29 11:59 | Day surgery (SDC) | payer MEDICAID ==
[~2018-01-29] VITALS: Ht 160 cm; Wt 52.2 kg
--- OUTSIDE RECORDS SUMMARY | 2018-01-29 12:05 | XMS REPORT ---
Author Author RODERICK HEATH [facility] Address [address] [place] [address] Care Team Providers Care Tearer Name Role Phone IVANA RODERICK Unavailable PROBLEMS Unknown Problems ALLERGIES Substance Reaction Event Type Date Status Cipro Unknown Drug Allergy September, Active ENCOUNTERS Encounter Location Date Diagnosis [facility] [address] [address] Dec, Abscess of left buttock L02.31 [facility] [address] [id number] Nov, Dental examination Z01.20 and Dental caries K02.9 [facility] [address] [address] September, Cellulitis of left knee L03.116 [facility] [address] [place] [id number] Jul, Dental examination Z01.20 and Dental caries K02.9 [facility] [address] [address] Jun, [facility] [address] [address] Jun, Dental examination Z01.20 and Dental abscess K04.7 [place] [address] [address] May, IMMUNIZATIONS No Known Immunizations SOCIAL HISTORY Never Assessed REASON FOR VISIT sore that is below left patella for the past 2 days. area is red et hot to the touch. denies hx of staff infection. reports its painful. [email or web address] PLAN OF CARE Activity Details Follow Up prn Reason: VITAL SIGNS Height 62 in 2017-09-26 Weight 117.4 lbs 2017-09-26 Temperature 97.8 degrees Fahrenheit 2017-09-26 Heart Rate 76 bpm 2017-09-26 Respiratory Rate 20 2017-09-26 BMI 21.47 kg/m2 2017-09-26 Blood pressure systolic 118 mmHg 2017-09-26 Blood pressure diastolic 74 mmHg 2017-09-26 MEDICATIONS Medication Instructions Dosage Frequency Start Date End Date Duration Status Prazosin HCl Not-Taking Viibryd Not-Taking Ibuprofen 200 MG Orally Three times a day 1 tablet with food or milk as needed 8h Not-Taking Bactrim DS 800-160 MG Orally twice daily 1 tablet September, September, 10 day(s) Active RESULTS No Results PROCEDURES No Known procedures INSTRUCTIONS MEDICATIONS ADMINISTERED No Known Medications MEDICAL (GENERAL) HISTORY Type Description Date Medical History Narcotic Addiction Medical History Collagenous Colitis Medical History Anemia Surgical History c section 2014 Surgical History wisdom teeth 2001 Surgical History tonsilectomy 1995 Hospitalization History Blood Transfusion 2016 Hospitalization History Blood Transfusion 11/19/17
--- OUTSIDE RECORDS SUMMARY | 2018-01-29 12:05 | XMS REPORT ---
Author Author GO ISBELL Organization [facility] Address [address] [place] [address] Care Team Providers Care Grease Refiner Operator Name Role Phone GO ISBELL Unavailable PROBLEMS Unknown Problems ALLERGIES Substance Reaction Event Type Date Status Cipro Unknown Drug Allergy Jul, Active ENCOUNTERS Encounter Location Date Diagnosis [facility] [address] [phone] Nov, Dental examination Z01.20 and Dental caries K02.9 [facility] [address] [address] September, Cellulitis of left knee L03.116 [facility] [address] [id number] Jul, Dental examination Z01.20 and Dental caries K02.9 [facility] [address] [address] Jun, [facility] [address] [place] [id number] [place] [phone] Jun, Dental examination Z01.20 and Dental abscess K04.7 [facility] [address] [place] [id number] [place] [phone] May, IMMUNIZATIONS No Known Immunizations SOCIAL HISTORY Never Assessed REASON FOR VISIT starla PLAN OF CARE Activity Details Follow Up prn Reason:TE #14 VITAL SIGNS Blood pressure systolic 120 mmHg 2017-07-14 Blood pressure diastolic 77 mmHg 2017-07-14 MEDICATIONS Medication Instructions Dosage Frequency Start Date End Date Duration Status Ibuprofen 200 MG Orally Three times a day 1 tablet with food or milk as needed 8h Not-Taking Viibryd Active Prazosin HCl Active Amoxicillin 500 mg Orally 3 times a day 1 capsule 8h Jun, Jul, 10 day(s) Active RESULTS No Results PROCEDURES Procedure Date Ordered Result Body Site LTD ORAL EVALUATION - PROBLEM FOCUS July 14, 2017 EXTRAC ERUPTED TOOTH/EXPOSED ROOT July 14, 2017 INSTRUCTIONS MEDICATIONS ADMINISTERED No Known Medications MEDICAL (GENERAL) HISTORY Type Description Date Medical History Narcotic Addiction Medical History Collagenous Colitis Medical History Anemia Surgical History c section 2013 Surgical History wisdom teeth 2001 Surgical History tonsilectomy 1995 Hospitalization History Blood Transfusion 2017 Hospitalization History Blood Transfusion 11/19/17
--- OUTSIDE RECORDS SUMMARY | 2018-01-29 12:05 | XMS REPORT ---
Author Author SUSANA BARDALES [facility] Address Unknown Care Team Providers Care Press Shop Supervisor Name Role Phone SUSANA BARDALES Unavailable PROBLEMS Unknown Problems ALLERGIES Substance Reaction Event Type Date Status Cipro Unknown Drug Allergy Nov, Active ENCOUNTERS Encounter Location Date Diagnosis [facility] [address] [address] Dec, Abscess of left buttock L02.31 [facility] [address] [phone] Nov, Dental examination Z01.20 and Dental caries K02.9 [facility] [address] [address] September, Cellulitis of left knee L03.116 [facility] [address] [id number] Jul, Dental examination Z01.20 and Dental caries K02.9 [facility] [address] [id number] [place] [phone] Jun, [facility] [address] [place] [id number] [place] [phone] Jun, Dental examination Z01.20 and Dental abscess K04.7 [facility] [address] [place] [id number] [place] [phone] May, IMMUNIZATIONS No Known Immunizations SOCIAL HISTORY Never Assessed REASON FOR VISIT JUAQUIN PLAN OF CARE Activity Details Follow Up prn Reason: VITAL SIGNS Height 62 in 2017-11-26 Blood pressure systolic 118 mmHg 2017-11-26 Blood pressure diastolic 72 mmHg 2017-11-26 MEDICATIONS Medication Instructions Dosage Frequency Start Date End Date Duration Status Ibuprofen 200 MG Orally Three times a day 1 tablet with food or milk as needed 8h Active Tylenol Active Amoxicillin Active RESULTS No Results PROCEDURES Procedure Date Ordered Result Body Site LTD ORAL EVALUATION - PROBLEM FOCUS November 26, 2017 INTRAORL-PERIAPICAL 1 FILM [id number] November 26, 2017 SURG REMOVAL ERUPTED TOOTH November 26, 2017 INSTRUCTIONS MEDICATIONS ADMINISTERED No Known Medications MEDICAL (GENERAL) HISTORY Type Description Date Medical History Narcotic Addiction Medical History Collagenous Colitis Medical History Anemia Surgical History c section 2014 Surgical History wisdom teeth 2001 Surgical History tonsilectomy 1995 Hospitalization History Blood Transfusion 2017 Hospitalization History Blood Transfusion 11/19/17
--- OUTSIDE RECORDS SUMMARY | 2018-01-29 12:05 | XMS REPORT ---
Author Author RODERICK Potts Organization [facility] Address [address] [place] [address] Care Team Providers Care Human Resources Associate Name Role Phone RODERICK Potts Unavailable PROBLEMS Unknown Problems ALLERGIES Substance Reaction Event Type Date Status Cipro Unknown Drug Allergy Dec, Active ENCOUNTERS Encounter Location Date Diagnosis [facility] [address] [address] Dec, Abscess of left buttock L02.31 [facility] [address] [phone] Nov, Dental examination Z01.20 and Dental caries K02.9 [facility] [address] [address] September, Cellulitis of left knee L03.116 [facility] [address] [phone] Jul, Dental examination Z01.20 and Dental caries K02.9 [place] [address] [address] Jun, [facility] [address] [address] Jun, Dental examination Z01.20 and Dental abscess K04.7 [place] [address] [address] May, IMMUNIZATIONS No Known Immunizations SOCIAL HISTORY Never Assessed REASON FOR VISIT possible staph-The patient has a place on her buttocs/leg that she thinks is staph. It is warm to the touch and had drainage out of it this morning. She has had staph before.--WINNIE Suggs PLAN OF CARE Activity Details Follow Up prn Reason: VITAL SIGNS Height 62 in 2017-12-19 Weight 124.2 lbs 2017-12-19 Temperature 97.8 degrees Fahrenheit 2017-12-19 Heart Rate 88 bpm 2017-12-19 Respiratory Rate 20 2017-12-19 BMI 22.71 kg/m2 2017-12-19 Blood pressure systolic 118 mmHg 2017-12-19 Blood pressure diastolic 80 mmHg 2017-12-19 MEDICATIONS Medication Instructions Dosage Frequency Start Date End Date Duration Status Tylenol Active Ibuprofen 200 MG Orally Three times a day 1 tablet with food or milk as needed 8h Active Mupirocin 2 % Externally Three times a day 1 application to affected area 8h Dec, Dec, 7 days Active Bactrim DS 800-160 MG Orally twice daily 1 tablet Dec, Dec, 10 day(s) Active RESULTS No Results PROCEDURES [...]
[2018-01-29] MEDS ORDERED: HYDROcodone/APAP 5 MG/325 MG (LORTAB) TAB PO ONE (12:15)
--- NOTE | 2018-01-29 12:19 | ED Integumentary General ---
General Chief Complaint: Skin/Wound Problems Stated Complaint: LUMP ON LEFT BREAST Source: patient Exam Limitations: no limitations History of Present Illness Date Seen by Provider: Jan 29, 2018 Time Seen by Provider: 12:15 Initial Comments To ER with reports of a lump that is tender to the anterior aspect of the left breast present for about one week. The discomfort associated with this is what atul her attention to it. No history of this, no history of injury or known insect bite. No fevers or chills. No right breast tenderness. No discharge from the nipple. Timing/Duration: just prior to arrival Severity: moderate Possible Cause: no cause identified Allergies and Home Medications Allergies Coded Allergies: ciprofloxacin (Unverified Allergy, Unknown, 05/29/17) Home Medications No Active Prescriptions or Reported Meds Patient Home Medication List Home Medication List Reviewed: Yes Review of Systems Review of Systems Constitutional: see HPI; No chills, No fever EENTM: see HPI Respiratory: no symptoms reported Cardiovascular: no symptoms reported Genitourinary: no symptoms reported Musculoskeletal: no symptoms reported Skin: see HPI Psychiatric/Neurological: No Symptoms Reported Endocrine: No Symptoms Reported Hematologic/Lymphatic: No Symptoms Reported Past Ncubaxo-Gddtzt-Vssoaq Hx Patient Social History Alcohol Use: Denies Use Recreational Drug Use: Yes Drug of Choice: METH AND POT Smoking Status: Current Everyday Smoker Type Used: Cigarettes Recent Foreign Travel: No Contact w/Someone Who Travel: No Recent Hopitalizations: No Physical Abuse: No Sexual Abuse: No Seasonal Allergies Seasonal Allergies: No Past Medical History Surgeries: Yes Section, Tonsillectomy Respiratory: No Cardiac: No Neurological: No Genitourinary: No Gastrointestinal: Yes (COLLAGENOUS COLITIS) Colitis Musculoskeletal: Yes Scoliosis Endocrine: No HEENT: No Cancer: No Psychosocial: No Integumentary: No Blood Disorders: No Physical Exam Vital Signs Vital Signs - First Documented 01/29/18 12:05 Temp 97.3 Pulse 103 Resp 18 B/P (MAP) 119/84 (96) Pulse Ox 100 Capillary Refill : General Appearance: WD/WN, no apparent distress HEENT: PERRL/EOMI, normal ENT inspection Neck: non-tender, full range of motion Cardiovascular: regular rate, rhythm, no murmur Respiratory: no respiratory distress, no accessory muscle use Gastrointestinal: normal bowel sounds, non tender, soft Neurologic/Psychiatric: alert, normal mood/affect, oriented x 3 Skin: normal color, warm/dry Skin Problem Location: other (breast exam was done with Radha RN at the bedside. The left breast has some induration and erythema inferior to the nipple from about the 5:00 to 7:00 position. There is a punctum in the center of this without drainage.) Progress/Results/Core Measures Results/Orders My Orders Orders - LILLIAN DEVI APRN Hydrocodone/Apap 5/325 Tablet (Lortab 5 (01/29/18 12:15) Us Breast Complete Left (01/29/18 12:14) Iv Heplock-Insert (Order) (01/29/18 12:39) Blood Culture (01/29/18 12:39) Cbc With Automated Diff (01/29/18 12:39) Hcg,Qualitative Serum (01/29/18 12:39) Basic Metabolic Panel (01/29/18 12:39) Clindamycin 900 Mg/50 Ml Ivpb (Cleocin P (01/29/18 12:45) Lorazepam Injection (Ativan Injection) (01/29/18 12:45) Lactated Ringers (Lr 1000 Ml Iv Solution (01/29/18 12:45) Medications Given in ED Current Medications Medications Dose Ordered Sig/Nicole Route Start Time Stop Time Status Last Admin Dose Admin Acetaminophen/ Hydrocodone Bitart 1 tab ONCE ONCE PO 01/29/18 12:15 01/29/18 12:16 DC 01/29/18 12:27 1 TAB Vital Signs/I&O 01/29/18 01/29/18 12:05 12:18 Temp 97.3 97.3 Pulse 103 103 Resp 18 18 B/P (MAP) 119/84 (96) 119/84 (96) Pulse Ox 100 100 Departure Communication (Admissions) hydrological technical officer reports a 4 x 4 by 2 cm complex fluid collection in the area of concern to the left breast. I spoke with surgeon Dr. Pittman. Due to her pain I don't feel that local anesthesia with lidocaine would be sufficient for tolerated very well. She has been nothing by mouth since last night except for the hydrocodone with sip of of water that we just gave her here. We will send her to day surgery where she will have this done in the operating room. Patient is very anxious about this so we will start an IV, give her 0.5 mg of IV lorazepam Impression Primary Impression: Left breast abscess Disposition: HOME, SELF-CARE Condition: Stable Admissions Decision to Admit Reason: Admit from ER (General) Decision to Admit/Date: Jan 29, 2018 Time/Decision to Admit Time: 12:48 Departure-Patient Inst. Referrals: NO,LOCAL PHYSICIAN (PCP/Family) Primary Care Physician Scripts No Active Prescriptions or Reported Meds LILLIAN DEVI APRN Jan 29, 2018 12:19
[2018-01-29] MEDS ORDERED: LORazepam INJ 2 MG/ML (ATIVAN) VIAL IVP PRN (12:45)
[2018-01-29] MEDS ORDERED: CLINDAMYCIN 900 MG/50 ML IVPB 50 ML IV ONE (12:45)
[2018-01-29] MEDS ORDERED: LACTATED RINGERS 1,000 ML IV SCH (12:45)
[2018-01-29 13:30] VITALS: BP 111/78
[2018-01-29 13:30] LABS: BASOPHILS % (AUTO) 0 % (0-10); EOSINOPHILS # (AUTO) 0.1 10^3/uL (0.0-0.3); EOSINOPHILS % (AUTO) 1 % (0-10); HEMATOCRIT 32 % (35-52); HEMOGLOBIN 10.6 G/DL (11.5-16.0); LYMPHOCYTES # (AUTO) 1.6 X 10^3 (1.0-4.0); LYMPHOCYTES % (AUTO) 16 % (12-44); MEAN CORPUSCULAR HEMOGLOBIN 27 PG (25-34); MEAN CORPUSCULAR HGB CONC 33 G/DL (32-36); MEAN CORPUSCULAR VOLUME 80 FL (80-99); MEAN PLATELET VOLUME 10.7 FL (7.4-10.4); MONOCYTES # (AUTO) 0.6 X 10^3 (0.0-1.0); MONOCYTES % (AUTO) 6 % (0-12); NEUTROPHILS # (AUTO) 7.7 X 10^3 (1.8-7.8); NEUTROPHILS % (AUTO) 76 % (42-75); PLATELET COUNT 313 10^3/uL (130-400); RED BLOOD COUNT 3.96 10^6/uL (4.35-5.85); WHITE BLOOD COUNT 10.1 10^3/uL (4.3-11.0)
[2018-01-29 13:47] LABS: BUN/CREATININE RATIO 21; CALCIUM 9.6 MG/DL (8.5-10.1); CARBON DIOXIDE 25 MMOL/L (21-32); CHLORIDE 107 MMOL/L (98-107); CREATININE SERUM 0.72 MG/DL (0.60-1.30); GFR ESTIMATED > 60; GLUCOSE 82 MG/DL (70-105); POTASSIUM 3.8 MMOL/L (3.6-5.0); SODIUM 140 MMOL/L (135-145)
[2018-01-29] MEDS ORDERED: NS (IVPB) 50 ML ONE (14:12)
[2018-01-29] MEDS ORDERED: ceFAZolin 1,000 MG/10 ML (ANCEF) VIAL ONE (14:12)
--- NOTE | 2018-01-29 14:28 | Diagnostic Imaging Report ---
Indication: Left breast pain and swelling. Comparison: None available. Technique: Multi-projectional grayscale imaging of the left breast was performed. Findings: In the inferior and lateral left breast from the 3 to 6 o'clock position, there is a superficial heterogeneously hypoechoic fluid collection that measures approximately 4.1 x 2.0 x 4.2 cm. This is located just beneath the dermis and there is no internal vascularity present. The remainder of the breast demonstrates no focal abnormality. Impression: Heterogeneous fluid collection in the inferior lateral left breast concerning for abscess. Consider followup breast ultrasound in 6 weeks after appropriate management to ensure resolution. BI-RADS 3 ACR BI-RADS Category 3: Probably benign findings. Result letter will be mailed to the patient. Note: At least 10% of breast cancer is not imaged by mammography. Dictated by: Dictated on workstation # [id number]
[2018-01-29 14:35] LABS: AMPHETAMINE SCREEN, URINE POSITIVE (NEGATIVE); BARBITURATE SCREEN URINE NEGATIVE (NEGATIVE); BENZODIAZEPINES SCREEN URINE NEGATIVE (NEGATIVE); CANNABINOID SCREEN, URINE POSITIVE (NEGATIVE); COCAINE SCREEN URINE NEGATIVE (NEGATIVE); METHADONE STAT NEGATIVE (NEGATIVE); METHAMPHETAMINE SCREEN URINE S NEGATIVE (NEGATIVE); OPIATE SCREEN URINE NEGATIVE (NEGATIVE); OXYCODONE STAT NEGATIVE (NEGATIVE); PROPOXYPHENE STAT NEGATIVE (NEGATIVE); TRICYCLIC ANTIDEPRESSANTS SCRE NEGATIVE (NEGATIVE)
[2018-01-29] MEDS ORDERED: ceFAZolin 1 GM/NS 50 ML IVPB IV ONE ×2 (14:45)
[2018-01-29] MEDS ORDERED: fentaNYL INJECTION 100 MCG/2 ML AMP ONE (16:01)
[2018-01-29] MEDS ORDERED: LIDOCAINE PF 2% 2 ML (XYLOCAINE) VIAL ONE (16:01)
[2018-01-29] MEDS ORDERED: MIDAZOLAM 2 MG/2 ML (VERSED) VIAL ONE (16:01)
[2018-01-29] MEDS ORDERED: ONDANSETRON 4 MG/2 ML (SDV) Z0FRAN ONE (16:01)
[2018-01-29] MEDS ORDERED: DEXAMETHASONE 10 MG/ML (DECADRON) 1 ML VIAL ONE (16:01)
[2018-01-29] MEDS ORDERED: proPOfol 200 MG/20 ML (DIPRIVAN) VIAL IV ONE (16:01)
[2018-01-29] MEDS ORDERED: HYDROmorphone 2 MG/ML VIAL (DILAUDID) ONE (16:23)
[2018-01-29] MEDS ORDERED: SEVOFLURANE (ULTANE) 15 ML INHAL SOLN ONE (16:36)
--- NOTE | 2018-01-29 16:45 | Progress Note-Post Operative ---
Post-Operative Progess Note Surgeon (s)/Flexo Press Operator (s) Surgeon JAYY POPE DO Flexo Press Operator: NA Pre-Operative Diagnosis ABSCESS LEFT BREAST Post-Operative Diagnosis SAME Procedure & Operative Findings Date of Procedure 01/29/18 Procedure Performed/Findings INCISION AND DRAINAGE LEFT BREAST ABSCESS Anesthesia Type GEN Estimated Blood Loss Estimated blood loss (mL): MIN Specimens/Packing Specimens Removed CULTURE ABSCESS JAYY POPE DO Jan 29, 2018 16:45
[2018-01-29] MEDS ORDERED: ACHD5005 PO (16:46)
[2018-01-29] MEDS ORDERED: SULF1TAB35 PO (16:46)
--- NOTE | 2018-01-29 16:52 | Discharge Inst-Simple/Standard ---
Discharge Inst-Standard Discharge Medications New, Converted or Re-Newed RX: RX on Chart Patient Instructions/Follow Up Plan of Care/Instructions/FU: DR. POPE OFFICE TOMORROW AT 8 AM TO HAVE NURSE HELP WITH CHANGING DRESSING. DR. POPE WILL SEE YOU FRIDAY () CALL TO MAKE THIS APPOINTMENT OR MAKE WHEN YOU ARE THERE TOMORROW. WOUND NEEDS IRRIGATED WITH SALINE AND PACKED WITH IODOFORM PACKING 1 TIME A DAY AND MORE FREQUENTLY IF NEEDED. Activity as Tolerated: Yes Discharge Diet: Regular Diet Other Inst to Patient Instructions: May shower in 24 hours, no tub bath or soaking. Use incentive spirometer at home as directed. No Smoking Skin/Wound Care: REMOVE PACKING, IRRIGATE WITH SALINE AND PACK WITH IODOFORM PACKING DAILY AND MORE FREQUENTLY IF NEEDED. IF ANY WORSENING CONDITION BE SEEN AT THAT TIME. Symptoms to Report: Appetite Changes, Extremity Discoloration, Numbness/Tingling, Swelling Increased , Bleeding Excessive, Eyesight Changes, Pain Increased, Urine Color Change, Constipation(Persistent), Fever over 101 degree F, Pain/Pressure in chest, Urinating Difficulty, Cough Up/Vomit Blood, Heart Beat Irreg/Pounding, Pain/ Pressure in jaw, Vaginal Bleeding Increase, Cramps in feet or legs, Lightheadedness, Pain/Pressure in shoulder, Diarrhea(Persistent), Memory Changes Suddenly, Questions/Concerns, Weight gain consecutive days, Dizziness/ Fainting, Nausea/Vomiting, Shortness of Breath, Weight gain over 2 pounds If questions or concerns contact your physician Or seek help at emergency department. JAYY POPE DO Jan 29, 2018 16:52
[2018-01-29] MEDS ORDERED: HYDROmorphone 2 MG/ML VIAL (DILAUDID) IV ONE (17:00)
[2018-01-29] MEDS ORDERED: ONDANSETRON 4 MG/2 ML (SDV) Z0FRAN IVP PRN (17:00)
[2018-01-29] MEDS ORDERED: fentaNYL INJECTION 100 MCG/2 ML AMP IVP ONE (17:00)
[2018-01-29] MEDS ORDERED: MEPERIDINE (DEMEROL) INJ 50 MG/ML IVP ONE (17:00)
--- NOTE | 2018-01-29 22:10 | OPERATIVE REPORT ---
DATE OF SERVICE: 01/29/2018 PREOPERATIVE DIAGNOSIS: Left breast abscess. POSTOPERATIVE DIAGNOSIS: Left breast abscess. PROCEDURE: Incision and drainage of left breast abscess, 2.5 cm. SURGEON: Jayy Pittman DO ANESTHESIA: General. ESTIMATED BLOOD LOSS: Minimal. COMPLICATIONS: None. INDICATIONS: The patient is a 32-year-old female with left breast abscess that she has had for about a week that continue to increase in size and cause more pain and have erythema. Ultrasound was performed demonstrating abscess of the left breast. She understands risks and benefits of procedure and wished to proceed with procedure. Consent was signed in the chart. DESCRIPTION OF PROCEDURE: The patient was taken to the operating suite. She was prepped and draped in sterile fashion. Surgical pause was performed. Incision was made over the palpable fluctuant area of the left breast just inferior to the areola. Purulent material erupted. Culture was obtained. All loculations were broken up and the wound was then irrigated with copious amounts of irrigation. Total length of the incision was 2.5 cm. Hemostasis was achieved with cautery. Once irrigated with copious amounts of irrigation. The wound was then packed with quarter inch iodoform gauze. The area was washed and dried and sterile bandage was applied. The patient tolerated procedure well without complications. She was taken to recovery room in stable condition. RECOMMENDATIONS: The patient will need to irrigate and change the packing on a daily basis. The patient placed on Bactrim DS. The patient will have close followup. Job ID: [id number] DocumentID: [id number] Dictated Date: 01/29/2018 18:34:49 Cold Mill Supervisor Date: 01/29/2018 22:09:31 Dictated By: JAYY PITTMAN DO
== END 2018-01-29 19:55 | disposition home or self-care (01) ==
LOC: EDUNIT# 11:59 → ER 12:02 → SDC 12:54 → 4TH 18:01 → SDC 19:55
PROVIDERS: ATTEND Surgery
DX: N61.1 Abscess of the breast and nipple (principal); F17.210 Nicotine dependence, cigarettes, uncomplicated
CPT/HCPCS: 36415; 76641; 80048; 80306; 84703; 85025; 87040; 87070; 87075; 87077; 87081; 87186; 87205; 96374; 96375

== ENCOUNTER 2018-03-19 15:49 | Inpatient (IN) | payer MEDICAID ==
[~2018-03-19] VITALS: Ht 160 cm; Wt 51.3 kg
[~2018-03-19 15:49] MED LIST changes: +ACHD5005 PO; +SULF1TAB35 PO
--- OUTSIDE RECORDS SUMMARY | 2018-03-19 15:55 | XMS REPORT | Continuity of Care Document ---
Author Author [facility] Organization [facility] Address Unknown Phone Unavailable Allergies Active Description Code Type Severity Reaction Onset Reported/Identified Relationship to Patient Clinical Status Yes CIPRO MODERATE DERMATOLOGICAL - HIV Yes No Known Drug Allergies [id number] Drug Allergy Unknown N/A 09/22/2007 Yes ciprofloxacin ciprofloxacin Drug Allergy Unknown unknown 07/31/2016 Yes ciprofloxacin [id number] Drug Allergy Unknown N/A 05/29/2017 Medications Medication Packaging Start Date Stop Date Route Dosage Sig NORMAL SALINE 1000CC IV BAG INJ 0.9 % (NS 1000CC IV BAG) ml 03/27/2017 04/11/2017 CONTINUOUSEVERY 0 Hour POLYETHYLENE GLYCOL POWDER UD PWD (MIRALAX 17GM UNIT DOSE PAKS) gm 03/27/2017 03/27/2017 ONCE&2335 CITRATE OF MAGNESIA LIQ OUNCE 03/2703/27/2017 ONCE&2335 ENEMA (FLEET'S) PhosPho ADULT ml 03/27/2017 ONCE&2335 ONDANSETRON VIAL INJ 4 MG/2CC (ZOFRAN 2CC VIAL) MG 03/27/2017 04/03/2017 PRN Q6H ACETAMINOPHEN ORAL TABLET 325mg(Tylenol) MG 03/28/2017 04/04/2017 PRN Q4H LACTATED RINGERS 1000CC IV BAG INJ ml 03/28/2017 04/04/2017 CONTINUOUSEVERY 0 Hour POLYETHYLENE GLYCOL POWDER UD PWD (MIRALAX 17GM UNIT DOSE PAKS) gm 03/28/2017 04/03/2017 BID&0800,2000 ACETAMINOPHEN ORAL TABLET 325mg(Tylenol) MG 11/19/2017 12/19/2017 PRN EVERY 6 Hour NORMAL SALINE 1000CC IV BAG INJ 0.9 % (NS 1000CC IV BAG) ml 11/19/2017 12/04/2017 CONTINUOUSEVERY 0 Hour AMOXICILLIN CAP 500 MG (AMOXIL) MG 11/19/2017 11/19/2017 ONCE&2350 ONDANSETRON VIAL INJ 4 MG/2CC (ZOFRAN 2CC VIAL) MG 11/20/2017 11/27/2017 PRN Q4H AMOXICILLIN CAP 500 MG (AMOXIL) MG 11/20/2017 11/29/2017 TID&0800,1400,2000 PANTOPRAZOLE VIAL INJ 40 MG (PROTONIX IV) MG 11/20/2017 11/29/2017 Daily&0900 NICOTINE PATCH PAT 21 MG (NICODERM) MG 11/20/2017 11/26/2017 Daily&0900 Problems Date Dx Coded Attending Type Code Diagnosis Diagnosed By 03/28/2017 Daniel Joseph 285.9 ANEMIA, UNSPECIFIED 03/28/2017 Daniel Joseph 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, UNSPECIFIED USE 03/28/2017 Daniel Joseph 564.00 CONSTIPATION, UNSPECIFIED 03/28/2017 Daniel Joseph D64.9 ANEMIA, UNSPECIFIED 03/28/2017 Daniel Joseph 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 STIMULANT ABUSE, UNCOMPLICATED 03/28/2017 Daniel Joseph K59.00 CONSTIPATION, UNSPECIFIED 03/28/2017 Daniel Joseph 285.9 ANEMIA, UNSPECIFIED 03/28/2017 Daniel Joseph 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, UNSPECIFIED USE 03/28/2017 Daniel Joseph 564.00 CONSTIPATION, UNSPECIFIED 03/28/2017 Daniel Joseph D64.9 ANEMIA, UNSPECIFIED 03/28/2017 Daniel Joseph 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 STIMULANT ABUSE, UNCOMPLICATED 03/28/2017 Daniel Joseph K59.00 CONSTIPATION, UNSPECIFIED 03/28/2017 Daniel Joseph 280.9 03/28/2017 Daniel Joseph 285.9 ANEMIA, UNSPECIFIED 03/28/2017 Daniel Joseph 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, UNSPECIFIED USE 03/28/2017 Daniel Joseph 530.10 ESOPHAGITIS, UNSPECIFIED 03/28/2017 Daniel Joseph 564.00 CONSTIPATION, UNSPECIFIED 03/28/2017 Daniel Joseph 784.0 03/28/2017 Daniel Joseph 787.02 03/28/2017 Daniel Joseph 789.07 03/28/2017 Daniel Joseph D50.9 IRON DEFICIENCY ANEMIA, UNSPECIFIED 03/28/2017 JakeDaniel Erica D64.9 ANEMIA, UNSPECIFIED 03/28/2017 Daniel Joseph 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 STIMULANT ABUSE, UNCOMPLICATED 03/28/2017 Jake Daniel Erica K20.9 ESOPHAGITIS, UNSPECIFIED 03/28/2017 JakeDaniel Erica K59.00 CONSTIPATION, UNSPECIFIED 03/28/2017 JakeDaniel Erica R10.84 GENERALIZED ABDOMINAL PAIN 03/28/2017 Daniel Joseph R11.0 NAUSEA 03/28/2017 Daniel Joseph R51 HEADACHE 05/29/2017 KENDRA TA, SIHRLENE Jackson Ot R10.13 EPIGASTRIC PAIN 05/29/2017 SHIRLENE GARDNER MD Ot Z87.19 PERSONAL HISTORY OF OTHER DISEASES OF 05/29/2017 SHIRLENE GARDNER MD Ot Z87.59 PERSONAL HISTORY OF COMP OF PREG, CHLDBR 05/29/2017 SHIRLENE GARDNER MD Ot Z90.89 ACQUIRED ABSENCE OF OTHER ORGANS 06/02/2017 SHIRLENE GARDNER MD Ot R10.13 EPIGASTRIC PAIN 06/02/2017 SHIRLENE GARDNER MD Ot Z87.19 PERSONAL HISTORY OF OTHER DISEASES OF 06/02/2017 SHIRLENE GARDNER MD Ot Z87.59 PERSONAL HISTORY OF COMP OF PREG, CHLDBR 06/02/2017 SHIRLENE GARDNER MD T Ot Z90.89 ACQUIRED ABSENCE OF OTHER ORGANS 11/19/2017 BrownLeon W 285.9 ANEMIA, UNSPECIFIED 11/19/2017 BrownAmrikLeon W 382.4 UNSPECIFIED SUPPURATIVE OTITIS MEDIA 11/19/2017 Brown, Leon W D64.9 ANEMIA, UNSPECIFIED 11/19/2017 Brown, Leon W H66.42 SUPPURATIVE OTITIS MEDIA, UNSPECIFIED, LEFT EAR 11/20/2017 BrownLeon A 280.9 IRON DEFICIENCY ANEMIA, UNSPECIFIED 11/20/2017 Brown, Leon W 285.9 ANEMIA, UNSPECIFIED 11/20/2017 BrownAmrikLeon W 381.01 ACUTE SEROUS OTITIS MEDIA 11/20/2017 Brown, Leon W 382.4 UNSPECIFIED SUPPURATIVE OTITIS MEDIA 11/20/2017 Brown, Leon W 780.4 DIZZINESS AND GIDDINESS 11/20/2017 Leon Naik A D50.9 IRON DEFICIENCY ANEMIA, UNSPECIFIED 11/20/2017 Leon Naik W D64.9 ANEMIA, UNSPECIFIED 11/20/2017 Leon Naik W H65.02 ACUTE SEROUS OTITIS MEDIA, LEFT EAR 11/20/2017 Leon Naik W H66.42 SUPPURATIVE OTITIS MEDIA, UNSPECIFIED, LEFT EAR 11/20/2017 Leon Naik W R42 DIZZINESS AND GIDDINESS 12/03/2017 IRISH ECKERT Ot F12.10 CANNABIS ABUSE, UNCOMPLICATED 12/03/2017 IRISH ECKERT Ot 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 STIMULANT ABUSE, UNCOMPLICATED 12/03/2017 IRISH ECKERT Ot F17.210 NICOTINE DEPENDENCE, CIGARETTES, UNCOMPL 12/03/2017 IRISH ECKERT Ot S60.222A CONTUSION OF LEFT HAND, INITIAL ENCOUNTE 12/03/2017 IRISH ECKERT Ot S69.92XA UNSP INJURY OF LEFT WRIST, HAND AND FING 12/03/2017 IRISH ECKERT Ot W22.03XA WALKED INTO FURNITURE, INITIAL ENCOUNTER 12/03/2017 IRISH ECKERT Ot Z87.19 PERSONAL HISTORY OF OTHER DISEASES OF TH 12/03/2017 IRISH ECKERT Ot Z87.59 PERSONAL HISTORY OF COMP OF PREG, CHLDBR 12/03/2017 IRISH ECKERT Ot Z88.1 ALLERGY STATUS TO OTHER ANTIBIOTIC AGENT 12/03/2017 IRISH ECKERT Ot Z90.89 ACQUIRED ABSENCE OF OTHER ORGANS 01/29/2018 JAYY POPE DO Ot F17.210 NICOTINE DEPENDENCE, CIGARETTES, UNCOMPL 01/29/2018 JAYY POPE DO Ot N61.1 ABSCESS OF THE BREAST AND NIPPLE 02/02/2018 JAYY POPE DO Ot F17.210 NICOTINE DEPENDENCE, CIGARETTES, UNCOMPL 02/02/2018 JAYY POPE DO Ot N61.1 ABSCESS OF THE BREAST AND NIPPLE Procedures There is no data. <section xmlns="urn:hl7-org:v3" xmlns:xsi="http:// www.w3.org/2001/XMLSchema-instance"> <templateId root= "[email or web address]" /> <templateId root= "[email or web address]" /> <code codeSystemName="EVERT" codeSystem= "[id number]" code="45673-0" displayName="Results" /> <title>Results< /title> <text> <table> <thead> <tr> <th>Test</th> <th>Result</th> <th>Range</th> </tr> </thead> < tbody> <tr> < colspan="10">URINALYSIS, ROUTINE - 12/27/14 21: 55</th> </tr> [...] <td> </td> <td /> </tr> <tr> <th colspan="10">UA MICROSCOPIC - 12/27/14 21:55</th> </tr> <tr> <td>UA EPITHELIAL CELLS</td> <td>2+ epi/ hpf</td> <td>0 - 1+</td> </tr> <tr> <td>UA RBC</ td> <td>0 rbc/hpf</td> <td>0 - 3</td> </tr> <tr > <td>UA VOLUME FOR EXAM</td> <td>12.0 mL</td> <td>( 12mL STD)</td> </tr> <tr> <td>UA WBC</td> <td>20 -50 wbc/hpf</td> <td>0 - 5</td> </tr> <tr> <td> WBC CLUMPS</td> <td>PRESENT </td> <td>NEGATIVE</td> </ tr> <tr> < colspan="10">UR TEST - 12/27/14 21:55</th > </tr> <tr> <td>UR TEST</td> <td> NEGATIVE </td> <td>NEGATIVE</td> </tr> <tr> <td> Microbiology</td> <td> </td> <td /> </tr> <tr> <th colspan="10">UR TEST - 01/01/15 09:40</th> </tr> <tr> <td>UR TEST</td> <td>NEGATIVE </td> <td>NEGATIVE</td> </tr> <tr> <td>Microbiology</td> <td> </td> <td /> </tr> <tr> < colspan="10">URINALYSIS, ROUTINE - 01/01/15 09:40</th> </tr> <tr> [...] <td>10-20 wbc/hpf</td> <td>0 - 5</td> </tr> <tr> < colspan="10">CBC W/DIFF - 01/01/15 10:50</th> </tr> < [...] <td> </td> <td /> </tr> <tr> <th colspan= "10">URINALYSIS, ROUTINE - 01/04/15 10:10</th> </tr> [...] <td>0-1 wbc/hpf</td> <td>0 - 5</td> </tr> <tr> <th colspan="10">UR TEST - 01/04/15 10:11</th> </tr> <tr> <td>UR TEST</td> <td>NEGATIVE </td> <td>NEGATIVE</td> </tr> <tr> <td>Microbiology</td> <td> </td> <td /> </tr> <tr> <th colspan ="10">CBC W/DIFF - 01/04/15 11:32</th> </tr> [...] <td> </td> <td /> </ tr> <tr> <th colspan="10">MAGNESIUM - 01/04/15 11:32</th> </tr> <tr> <td>MAGNESIUM</td> <td>1.8 mg/dL</td> <td>1.8-2.4</td> </tr> <tr> <th colspan="10"> LIPASE - 01/04/15 11:32</th> </tr> <tr> <td>LIPASE</td> <td>123 Units/L</td> <td>73-393</td> </tr> <tr> <th colspan="10">CHEM/HEM PROFILE-BEDSIDE - 01/04/15 12:02</th> </tr> <tr> [...] Microbiology</td> <td> </td> <td /> </tr> <tr> < colspan="10">URINALYSIS, NO REFLEX CULTURE - 12/28/15 19:43</th> [...] <td>UR PH</td> <td>8.0 </td> <td>5.0-7.0</td> </tr> <tr> < colspan="10">UA MICROSCOPIC - 12/28/15 19:43</th> </tr> < [...] HORMONE (TSH)</td> <td>2.48 uIU/mL</ td> <td>0.34-4.82</td> </tr> <tr> <th colspan= "10">Urinalysis - 03/27/17 21:48</th> </tr> <tr> <td> Icotest</td> <td>N/A </td> <td>Negative</td> </tr> <tr> <td>Urine Crystals</td> <td>Amorphous material: abundant/HPF </td> <td /> </tr> <tr> <td>Urine Volume</td> <td>Urine Volume Sufficient (10mL) </td> <td /> </tr> <tr> <td>Urine-Appearance</td> <td>Cloudy < /td> <td>Clear</td> </tr> <tr> <td>Urine- Bacteria</td> <td>Trace </td> <td> </td> </tr> < tr> <td>Urine-Bilirubin</td> <td>Negative </td> <td> Negative</td> </tr> <tr> <td>Urine-Blood</td> < td>Negative </td> <td>Negative</td> </tr> <tr> < td>Urine-Color</td> <td>Yellow </td> <td>Colorless-Lt. Yellow< /td> </tr> <tr> <td>Urine-Epithelial Cells</td> <td>5-10/HPF </td> <td> </td> </tr> <tr> <td> Urine-Glucose</td> <td>Negative </td> <td>Negative</td> </tr> <tr> <td>Urine-Ketones</td> <td>Negative </td> <td>Negative</td> </tr> <tr> <td>Urine- Leukocytes</td> <td>1+ </td> <td>Negative</td> </tr> <tr> <td>Urine-Nitrite</td> <td>Negative </td> <td>Negative</td> </tr> <tr> <td>Urine-Other</td> <td> Urine Saved if Culture Needed (48hrs from time of collection) </td> <td> </td> </tr> <tr> <td>Urine-pH</td> < td>7.5 </td> <td>5-8.5</td> </tr> <tr> <td>Urine -Protein</td> <td>Negative </td> <td>Negative</td> </tr > <tr> <td>Urine-RBC</td> <td>0-2/HPF </td> < td> </td> </tr> <tr> <td>Urine-Specific [place]</td> <td>1.020 </td> <td>1.000-1.030</td> </tr> <tr> <td>Urine-WBC</td> <td>2-5/HPF </td> <td> </td> </tr> <tr> <td>Urobilinogen</td> <td>0.2 </td> <td>0.2-1.0</td> </tr> <tr> < colspan="10">XM (2) [facility] - 03/27/17 22:55</th> </tr> <tr> <td>CROSSMATCH</td > <td>COMPATIBLE X 2 </td> <td /> </tr> <tr> <td>Hct</td> <td>26.9 %</td> <td>36.0-46.0</td> </tr> <tr> <td>Hgb</td> <td>7.6 g/dL</td> <td>13.0-15.0</td> </tr> <tr> <th colspan="10"> Leukoreduced Packed RBC Unit Checkout - 03/28/17 01:25</th> </tr> <tr> <td>LRPRBC Checkout</td> <td>Checked Out. </td> <td /> </tr> <tr> <th colspan="10">Ferritin - 03/28/17 05 :20</th> </tr> <tr> <td>Ferritin</td> <td>3.90 ng/mL</td> <td>4.63-204.00</td> </tr> <tr> <th colspan="10">VIT B-12 - 03/28/17 05:20</th> </tr> <tr> < td>Vitamin B12</td> <td>221.00 pg/mL</td> <td>213.00-816.00</ td> </tr> <tr> <th colspan="10">Folate - 03/28/17 05:20</ th> </tr> <tr> <td>Folate</td> <td>15.40 ng/mL</ td> <td>7.00-31.40</td> </tr> <tr> <th colspan= "10">Leukoreduced Packed RBC Unit Checkout - 03/28/17 07:28</th> </tr> <tr> <td>LRPRBC Checkout</td> <td>Checked Out. </td> <td /> </tr> <tr> <th colspan="10">Rapid Drug Screen,Medical - 03/28/17 09:29</th> </tr> <tr> <td> Amphetamine</td> <td>NEGATIVE </td> <td>NEGATIVE</td> < /tr> <tr> <td>Barbiturates</td> <td>NEGATIVE </td> <td>NEGATIVE</td> </tr> <tr> <td>Benzodiazepines</ td> <td>NEGATIVE </td> <td>NEGATIVE</td> </tr> < tr> <td>Cocaine</td> <td>NEGATIVE </td> <td>NEGATIVE< /td> </tr> <tr> <td>Marijuana</td> <td>NEGATIVE </td> <td>NEGATIVE</td> </tr> <tr> <td> Methylenedioxymethamphetamine</td> <td>NEGATIVE </td> <td> NEGATIVE</td> </tr> <tr> <td>Opiates</td> <td> NEGATIVE </td> <td>NEGATIVE</td> </tr> <tr> <td> Oxycodone</td> <td>NEGATIVE </td> <td>NEGATIVE</td> </ tr> <tr> <td>Phencyclidine</td> <td>NEGATIVE </td> <td>NEGATIVE</td> </tr> <tr> <td>Propoxyphene</td> <td>NEGATIVE </td> <td>NEGATIVE</td> </tr> <tr > <td>Tricyclic Antidepressant</td> <td>NEGATIVE </td> <td>NEGATIVE</td> </tr> <tr> < colspan="10"> Surgical Pathology - 03/28/17 12:00</th> </tr> <tr> <td> Surg Path</td> <td>Sent to [facility] </td> <td /> </tr> <tr> < colspan="10">IFOBT Occult Blood - 03/28/17 13 :25</th> </tr> <tr> <td>IFOBT Occult Blood</td> <td>NEGATIVE </td> <td>Negative</td> </tr> <tr> < colspan="10">HH - 03/28/17 16:00</th> </tr> <tr> <td> Hct</td> <td>31.7 %</td> <td>36.0-46.0</td> </tr> <tr> <td>Hgb</td> <td>9.4 g/dL</td> <td>13.0- 15.0</td> </tr> <tr> <th colspan="10">IFOBT Occult Blood - 03/28/17 16:11</th> </tr> <tr> <td>IFOBT Occult Blood</ td> <td>NEGATIVE </td> <td>Negative</td> </tr> < tr> <th colspan="10">CBC with Auto Diff - 03/31/17 13:13</th> </ tr> <tr> <td>Baso%</td> <td>1.10 %</td> <td>0.00-2.50</td> </tr> <tr> <td>Eos</td> < td>0.3 K/uL</td> <td>0.0-0.7</td> </tr> <tr> <td >Eos%</td> <td>4.2 %</td> <td>0.0-7.0</td> </tr > <tr> <td>Hct</td> <td>34.3 %</td> <td> 36.0-46.0</td> </tr> <tr> <td>Hgb</td> <td>10.5 g/dL</td> <td>13.0-15.0</td> </tr> <tr> <td>Lym< /td> <td>1.98 K/uL</td> <td>0.60-3.40</td> </tr> <tr> <td>Lym%</td> <td>26.9 %</td> <td>10.0 -50.0</td> </tr> <tr> <td>MCH</td> <td>22.5 pg</ td> <td>27.0-31.0</td> </tr> <tr> <td>MCHC</td> <td>30.6 g/dL</td> <td>32.0-36.0</td> </tr> <tr > <td>MCV</td> <td>73.4 fL</td> <td>80.0-97.0</td> </tr> <tr> <td>[place]%</td> <td>7.6 %</td> <td>0.0-12.0</td> </tr> <tr> <td>MPV</td> <td>11.1 fL</td> <td>7.4-10.0</td> </tr> <tr> <td>Julianne%</td> <td>60.2 %</td> <td>37.0-80.0</td> </tr> <tr> <td>Plt</td> <td>222 K/uL</td> <td>150-400</td> </tr> <tr> <td>RBC</td> <td >4.67 M/uL</td> <td>3.60-5.00</td> </tr> <tr> < td>RDW</td> <td>22.7 %</td> <td>11.6-14.8</td> </tr > <tr> <td>WBC</td> <td>7.36 K/uL</td> <td> 5.00-10.00</td> </tr> <tr> <td>Julianne</td> <td> 4.43 K/uL</td> <td>2.00-6.90</td> </tr> <tr> <td >[place]</td> <td>0.6 K/uL</td> <td>0.0-0.9</td> </tr> <tr> <td>Baso</td> <td>0.1 K/uL</td> <td>0.0-0.2 </td> </tr> <tr> < colspan="10">Complete urinalysis with reflex to culture - 05/29/17 02:40</th> </tr> <tr> < td>Urine color determination</td> <td>YELLOW </td> <td>NRG</td > </tr> <tr> <td>Urine clarity determination</td> <td>SLIGHTLY CLOUDY </td> <td>NRG</td> </tr> <tr> <td>Urine pH measurement by test strip</td> <td>6.5 </td> <td>5-9</td> </tr> <tr> <td>Specific gravity of urine by test strip</td> <td>1.020 </td> <td>1.016-1.022</td> </tr> <tr> <td>Urine protein assay by test strip, semi- quantitative</td> <td>NEGATIVE </td> <td>NEGATIVE</td> </tr> <tr> <td>Urine glucose detection by automated test strip</ td> <td>NEGATIVE </td> <td>NEGATIVE</td> </tr> < tr> <td>Erythrocytes detection in urine sediment by light microscopy</ td> <td>1+ </td> <td>NEGATIVE</td> </tr> <tr> <td>Urine ketones detection by automated test strip</td> <td> NEGATIVE </td> <td>NEGATIVE</td> </tr> <tr> <td> Urine nitrite detection by test strip</td> <td>NEGATIVE </td> <td>NEGATIVE</td> </tr> <tr> <td>Urine total bilirubin detection by test strip</td> <td>NEGATIVE </td> <td>NEGATIVE</ td> </tr> <tr> <td>Urine urobilinogen measurement by automated test strip (mass/volume)</td> <td>NORMAL </td> <td> NORMAL</td> </tr> <tr> <td>Urine leukocyte esterase detection by dipstick</td> <td>NEGATIVE </td> <td>NEGATIVE</td > </tr> <tr> <td>Automated urine sediment erythrocyte count by microscopy (number/high power field)</td> <td> [HPF]</td> <td>NRG</td> </tr> <tr> <td>Automated urine sediment leukocyte count by microscopy (number/high power field)</td> < td>NONE </td> <td>NRG</td> </tr> <tr> <td> Bacteria detection in urine sediment by light microscopy</td> <td> TRACE </td> <td>NRG</td> </tr> <tr> <td> Squamous epithelial cells detection in urine sediment by light microscopy</td> <td>5-10 </td> <td>NRG</td> </tr> <tr> <td>Crystals detection in urine sediment by light microscopy</td> <td> PRESENT </td> <td>NRG</td> </tr> <tr> <td>Casts detection in urine sediment by light microscopy</td> <td>NONE </td> <td>NRG</td> </tr> <tr> <td>Mucus detection in urine sediment by light microscopy</td> <td>SMALL </td> <td> NRG</td> </tr> <tr> <td>Complete urinalysis with reflex to culture</td> <td>NO </td> <td>NRG</td> </tr> <tr> <td>Amorphous sediment detection in urine sediment by light microscopy</td> <td>FEW RAMIRO URATES </td> <td>NRG</td> </tr> <tr> <th colspan="10">Urine drug screening test - 02:40</th> </tr> <tr> <td>Urine phencyclidine detection by screening method</td> <td>NEGATIVE </td> <td> NEGATIVE</td> </tr> <tr> <td>Urine benzodiazepines detection by screening method</td> <td>NEGATIVE </td> <td> NEGATIVE</td> </tr> <tr> <td>Urine cocaine detection</td > <td>NEGATIVE </td> <td>NEGATIVE</td> </tr> <tr > <td>Urine amphetamines detection by screening method</td> < td>NEGATIVE </td> <td>NEGATIVE</td> </tr> <tr> < td>Urine methamphetamine detection by screening method</td> <td> NEGATIVE </td> <td>NEGATIVE</td> </tr> <tr> <td> Urine cannabinoids detection by screening method</td> <td>NEGATIVE </td > <td>NEGATIVE</td> </tr> <tr> <td>Urine opiates detection by screening method</td> <td>NEGATIVE </td> <td>NEGATIVE</td> </tr> <tr> <td>Urine barbiturates detection</td> <td>NEGATIVE </td> <td>NEGATIVE</td> </ tr> <tr> <td>Screening urine tricyclic antidepressants detection </td> <td>NEGATIVE </td> <td>NEGATIVE</td> </tr> <tr> <td>Urine methadone detection by screening method</td> <td>NEGATIVE </td> <td>NEGATIVE</td> </tr> <tr> <td>Urine oxycodone detection</td> <td>NEGATIVE </td> <td> NEGATIVE</td> </tr> <tr> <td>Urine propoxyphene detection </td> <td>NEGATIVE </td> <td>NEGATIVE</td> </tr> <tr> < colspan="10">Complete blood count (CBC) with automated white blood cell (WBC) differential - 05/29/17 02:49</th> </tr> < tr> <td>Blood leukocytes automated count (number/volume)</td> <td>5.5 10*3/uL</td> <td>4.3-11.0</td> </tr> <tr> <td>Blood erythrocytes automated count (number/volume)</td> <td> 4.20 10*6/uL</td> <td>4.35-5.85</td> </tr> <tr> <td>Venous blood hemoglobin measurement (mass/volume)</td> <td>9.7 g/dL </td> <td>11.5-16.0</td> </tr> <tr> <td>Blood hematocrit (volume fraction)</td> <td>31 %</td> <td>35-52< /td> </tr> <tr> <td>Automated erythrocyte mean corpuscular volume</td> <td>74 [foz_us]</td> <td>80-99</td> </tr> <tr> <td>Automated erythrocyte mean corpuscular hemoglobin (mass per erythrocyte)</td> <td>23 pg</td> <td>25- 34</td> </tr> <tr> <td>Automated erythrocyte mean corpuscular hemoglobin concentration measurement (mass/volume)</td> <td >31 g/dL</td> <td>32-36</td> </tr> <tr> <td> Automated erythrocyte distribution width ratio</td> <td>21.6 %</td > <td>10.0-14.5</td> </tr> <tr> <td>Automated blood platelet count (count/volume)</td> <td>181 10*3/uL</td> <td>130-400</td> </tr> <tr> <td>Automated blood platelet mean volume measurement</td> <td>11.2 [foz_us]</td> <td>7.4- 10.4</td> </tr> <tr> <td>Automated blood neutrophils/100 leukocytes</td> <td>51 %</td> <td>42-75</td> </tr> <tr> <td>Automated blood lymphocytes/100 leukocytes</td> <td>31 %</td> <td>12-44</td> </tr> <tr> <td>Blood monocytes/100 leukocytes</td> <td>11 %</td> <td> 0-12</td> </tr> <tr> <td>Automated blood eosinophils/100 leukocytes</td> <td>6 %</td> <td>0-10</td> </tr> <tr> <td>Automated blood basophils/100 leukocytes</td> < td>1 %</td> <td>0-10</td> </tr> <tr> <td> Blood neutrophils automated count (number/volume)</td> <td>2.8 10*3</td > <td>1.8-7.8</td> </tr> <tr> <td>Blood lymphocytes automated count (number/volume)</td> <td>1.7 10*3</td> <td>1.0-4.0</td> </tr> <tr> <td>Blood monocytes automated count (number/volume)</td> <td>0.6 10*3</td> <td>0.0 -1.0</td> </tr> <tr> <td>Automated eosinophil count</td> <td>0.3 10*3/uL</td> <td>0.0-0.3</td> </tr> <tr > <td>Automated blood basophil count (count/volume)</td> <td> 0.0 10*3/uL</td> <td>0.0-0.1</td> </tr> <tr> < th colspan="10">Serum or plasma choriogonadotropin ( test) detection - 05/29/17 02:49</th> </tr> <tr> <td>Serum or plasma choriogonadotropin ( test) detection</td> <td>NEGATIVE </td> <td>NEGATIVE</td> </tr> <tr> <th colspan="10"> Comprehensive metabolic panel - 05/29/17 02:49</th> </tr> <tr> <td>Serum or plasma sodium measurement (moles/volume)</td> <td> 139 mmol/L</td> <td>135-145</td> </tr> <tr> <td> Serum or plasma potassium measurement (moles/volume)</td> <td>3.5 mmol/ L</td> <td>3.6-5.0</td> </tr> <tr> <td>Serum or plasma chloride measurement (moles/volume)</td> <td>106 mmol/L</td> <td>98-107</td> </tr> <tr> <td>Carbon dioxide</td > <td>23 mmol/L</td> <td>21-32</td> </tr> <tr> <td>Serum or plasma anion gap determination (moles/volume)</td> <td>10 mmol/L</td> <td>5-14</td> </tr> <tr> < td>Serum or plasma urea nitrogen measurement (mass/volume)</td> <td>18 mg/dL</td> <td>7-18</td> </tr> <tr> <td>Serum or plasma creatinine measurement (mass/volume)</td> <td>0.75 mg/dL</td > <td>0.60-1.30</td> </tr> <tr> <td>Serum or plasma urea nitrogen/creatinine mass ratio</td> <td>24 </td> < td>NRG</td> </tr> <tr> <td>Serum or plasma creatinine measurement with calculation of estimated glomerular filtration rate</td> <td>> </td> <td>NRG</td> </tr> <tr> <td> Serum or plasma glucose measurement (mass/volume)</td> <td>90 mg/dL</td > <td>70-105</td> </tr> <tr> <td>Serum or plasma calcium measurement (mass/volume)</td> <td>9.0 mg/dL</td> <td>8.5-10.1</td> </tr> <tr> <td>Serum or plasma total bilirubin measurement (mass/volume)</td> <td>0.3 mg/dL</td> <td>0.1-1.0</td> </tr> <tr> <td>Serum or plasma alkaline phosphatase measurement (enzymatic activity/volume)</td> <td> 67 U/L</td> <td>40-136</td> </tr> <tr> <td> Serum or plasma aspartate aminotransferase measurement (enzymatic activity/ volume)</td> <td>22 U/L</td> <td>5-34</td> </tr> <tr> <td>Serum or plasma alanine aminotransferase measurement ( enzymatic activity/volume)</td> <td>22 U/L</td> <td>0-55</td> </tr> <tr> <td>Serum or plasma protein measurement (mass /volume)</td> <td>7.2 g/dL</td> <td>6.4-8.2</td> </tr> <tr> <td>Serum or plasma albumin measurement (mass/volume)</td > <td>4.2 g/dL</td> <td>3.2-4.5</td> </tr> <tr> <th colspan="10">Lipase - 05/29/17 02:49</th> </tr> <tr > <td>Lipase</td> <td>42 U/L</td> <td>8-78</td> </tr> <tr> <th colspan="10">Serum or plasma ethanol measurement (mass/volume) - 05/29/17 02:49</th> </tr> <tr> <td>Serum or plasma ethanol measurement (mass/volume)</td> <td>< mg/dL</td> <td><10</td> </tr> <tr> <th colspan="10">Comprehensive Metabolic Panel - 11/19/17 20:35</th> </tr> <tr> <td>Albumin</td> <td>3.7 g/dL</td> <td>3.6 -5.1</td> </tr> <tr> <td>ALP</td> <td>60 U/L</td > <td>35-130</td> </tr> <tr> <td>ALT</td> <td>11 U/L</td> <td>6-45</td> </tr> <tr> <td >Anion Gap</td> <td>15 </td> <td>6-14</td> </tr> <tr> <td>AST</td> <td>15 U/L</td> <td>2-40</td> </tr> <tr> <td>BUN</td> <td>22 mg/dL</td> <td>5-25</td> </tr> <tr> <td>Calcium</td> <td> 8.8 mg/dL</td> <td>8.3-10.4</td> </tr> <tr> <td> Chloride</td> <td>109 mmol/L</td> <td>95-114</td> </tr > <tr> <td>CO2</td> <td>20 mEq/L</td> <td>22- 33</td> </tr> <tr> <td>Creat</td> <td>0.74 mg/dL </td> <td>0.50-1.50</td> </tr> <tr> <td>eGFR</td > <td>90 mL/min/1.73m2</td> <td>>59</td> </tr> <tr> <td>Globulin</td> <td>2.1 g/dL</td> <td>2.3- 3.5</td> </tr> <tr> <td>Glucose</td> <td>101 mg/ dL</td> <td>70-110</td> </tr> <tr> <td>Osmo</td > <td>294 </td> <td>280-295</td> </tr> <tr> <td>Potassium</td> <td>3.4 mmol/L</td> <td>3.5-5.3</td> </tr> <tr> <td>Sodium</td> <td>141 mmol/L</td> <td>134-148</td> </tr> <tr> <td>TBil</td> <td>< 0.2 mg/dL</td> <td /> </tr> <tr> < td>TP</td> <td>5.8 g/dL</td> <td>6.0-8.3</td> </tr> <tr> <th colspan="10">Folate - 11/19/17 20:35</th> </tr> <tr> <td>Folate</td> <td>9.20 ng/mL</td> <td> 7.00-31.40</td> </tr> <tr> <th colspan="10">XM (2) [facility] - 11/19/17 21:50</th> </tr> <tr> <td>CROSSMATCH</td> <td>COMPATIBLE X 2 </td> <td /> </tr> <tr> <td>Hct</td> <td>25.8 %</td> <td>36.0-46.0</td> < /tr> <tr> <td>Hgb</td> <td>7.9 g/dL</td> <td> 13.0-15.0</td> </tr> <tr> <th colspan="10"> Test -Serum - 11/19/17 23:35</th> </tr> <tr> <td>Preg Test-S</ td> <td>Negative </td> <td>Negative</td> </tr> < tr> <th colspan="10">Leukoreduced Packed RBC Unit Checkout - 11/20/17 00:36</th> </tr> <tr> <td>LRPRBC Checkout</td> < td>Checked Out. </td> <td /> </tr> <tr> <th colspan="10">Leukoreduced Packed RBC Unit Checkout - 11/20/17 03:59</th> </tr> <tr> <td>LRPRBC Checkout</td> <td>Checked Out. </ td> <td /> </tr> <tr> <th colspan="10">BMP - 04/28 08:38</th> </tr> <tr> <td>Anion Gap</td> < td>15 </td> <td>6-14</td> </tr> <tr> <td>BUN</td > <td>18 mg/dL</td> <td>5-25</td> </tr> <tr> <td>Calcium</td> <td>8.8 mg/dL</td> <td>8.3-10.4</td> </tr> <tr> <td>Chloride</td> <td>110 mmol/L</td > <td>95-114</td> </tr> <tr> <td>CO2</td> <td>22 mEq/L</td> <td>22-33</td> </tr> <tr> <td>Creat</td> <td>0.74 mg/dL</td> <td>0.50-1.50</td> < /tr> <tr> <td>eGFR</td> <td>90 mL/min/1.73m2</td> <td>>59</td> </tr> <tr> <td>Glucose</td> <td>70 mg/dL</td> <td>70-110</td> </tr> <tr> < td>Osmo</td> <td>296 </td> <td>280-295</td> </tr> <tr> <td>Potassium</td> <td>3.6 mmol/L</td> <td> 3.5-5.3</td> </tr> <tr> <td>Sodium</td> <td>143 mmol/L</td> <td>134-148</td> </tr> <tr> <th colspan="10">Complete blood count (CBC) with automated white blood cell (WBC) differential - 01/29/18 12:49</th> </tr> <tr> <td>Blood leukocytes automated count (number/volume)</td> <td>10.1 10*3/uL</td> <td>4.3-11.0</td> </tr> <tr> <td>Blood erythrocytes automated count (number/volume)</td> <td>3.96 10*6/uL</td > <td>4.35-5.85</td> </tr> <tr> <td>Venous blood hemoglobin measurement (mass/volume)</td> <td>10.6 g/dL</td> <td>11.5-16.0</td> </tr> <tr> <td>Blood hematocrit (volume fraction)</td> <td>32 %</td> <td>35-52</td> </tr> <tr> <td>Automated erythrocyte mean corpuscular volume</ td> <td>80 [foz_us]</td> <td>80-99</td> </tr> < tr> <td>Automated erythrocyte mean corpuscular hemoglobin (mass per erythrocyte)</td> <td>27 pg</td> <td>25-34</td> </tr> <tr> <td>Automated erythrocyte mean corpuscular hemoglobin concentration measurement (mass/volume)</td> <td>33 g/dL</td> <td>32-36</td> </tr> <tr> <td>Automated erythrocyte distribution width ratio</td> <td>22.0 %</td> <td>10.0- 14.5</td> </tr> <tr> <td>Automated blood platelet count ( count/volume)</td> <td>313 10*3/uL</td> <td>130-400</td> </tr> <tr> <td>Automated blood platelet mean volume measurement</td> <td>10.7 [foz_us]</td> <td>7.4-10.4</td> </tr> <tr> <td>Automated blood neutrophils/100 leukocytes</ td> <td>76 %</td> <td>42-75</td> </tr> <tr> <td>Automated blood lymphocytes/100 leukocytes</td> <td>16 &# 37;</td> <td>12-44</td> </tr> <tr> <td>Blood monocytes/100 leukocytes</td> <td>6 %</td> <td>0-12</td> </tr> <tr> <td>Automated blood eosinophils/100 leukocytes </td> <td>1 %</td> <td>0-10</td> </tr> <tr> <td>Automated blood basophils/100 leukocytes</td> <td>0 % </td> <td>0-10</td> </tr> <tr> <td>Blood neutrophils automated count (number/volume)</td> <td>7.7 10*3</td> <td>1.8-7.8</td> </tr> <tr> <td>Blood lymphocytes automated count (number/volume)</td> <td>1.6 10*3</td> <td>1.0 -4.0</td> </tr> <tr> <td>Blood monocytes automated count (number/volume)</td> <td>0.6 10*3</td> <td>0.0-1.0</td> </tr> <tr> <td>Automated eosinophil count</td> <td> 0.1 10*3/uL</td> <td>0.0-0.3</td> </tr> <tr> <td >Automated blood basophil count (count/volume)</td> <td>0.0 10*3/uL</td > <td>0.0-0.1</td> </tr> <tr> < colspan="10"> Whole blood basic metabolic panel - 01/29/18 12:49</th> </tr> <tr > <td>Serum or plasma sodium measurement (moles/volume)</td> < td>140 mmol/L</td> <td>135-145</td> </tr> <tr> < td>Serum or plasma potassium measurement (moles/volume)</td> <td>3.8 mmol/L</td> <td>3.6-5.0</td> </tr> <tr> <td> Serum or plasma chloride measurement (moles/volume)</td> <td>107 mmol/L </td> <td>98-107</td> </tr> <tr> <td>Carbon dioxide</td> <td>25 mmol/L</td> <td>21-32</td> </tr> <tr> <td>Serum or plasma anion gap determination (moles/volume)</ td> <td>8 mmol/L</td> <td>5-14</td> </tr> <tr> <td>Serum or plasma urea nitrogen measurement (mass/volume)</td> <td>15 mg/dL</td> <td>7-18</td> </tr> <tr> < td>Serum or plasma creatinine measurement (mass/volume)</td> <td>0.72 mg/dL</td> <td>0.60-1.30</td> </tr> <tr> <td> Serum or plasma urea nitrogen/creatinine mass ratio</td> <td>21 </td> <td>NRG</td> </tr> <tr> <td>Serum or plasma creatinine measurement with calculation of estimated glomerular filtration rate< /td> <td>> </td> <td>NRG</td> </tr> <tr> <td>Serum or plasma glucose measurement (mass/volume)</td> <td> 82 mg/dL</td> <td>70-105</td> </tr> <tr> <td> Serum or plasma calcium measurement (mass/volume)</td> <td>9.6 mg/dL</ td> <td>8.5-10.1</td> </tr> <tr> <th colspan="10 ">Serum or plasma choriogonadotropin ( test) detection - 01/29/18 12:49 </th> </tr> <tr> <td>Serum or plasma choriogonadotropin ( test) detection</td> <td>NEGATIVE </td> <td>NEGATIVE </td> </tr> <tr> <th colspan="10">Bacterial blood culture - 01/29/18 12:49</th> </tr> <tr> <td>Bacterial blood culture</td> <td>NG </td> <td>NRG</td> </tr> <tr> <th colspan="10">Methicillin resistant Staphylococcus aureus ( MRSA) screening culture - 01/29/18 13:25</th> </tr> <tr> <td>MRSA SCREEN RESULT</td> <td>MRSA ISOLATED </td> <td>NRG</ td> </tr> <tr> <th colspan="10">Bacterial blood culture - 01/29/18 13:48</th> </tr> <tr> <td>Bacterial blood culture</td> <td>NG </td> <td>NRG</td> </tr> <tr > <th colspan="10">Urine drug screening test - 01/29/18 14:20</th> </tr> <tr> <td>Urine phencyclidine detection by screening method</td> <td>NEGATIVE </td> <td>NEGATIVE</td> </tr> <tr> <td>Urine benzodiazepines detection by screening method</ td> <td>NEGATIVE </td> <td>NEGATIVE</td> </tr> < tr> <td>Urine cocaine detection</td> <td>NEGATIVE </td> <td>NEGATIVE</td> </tr> <tr> <td>Urine amphetamines detection by screening method</td> <td>POSITIVE </td> <td> NEGATIVE</td> </tr> <tr> <td>Urine methamphetamine detection by screening method</td> <td>NEGATIVE </td> <td> NEGATIVE</td> </tr> <tr> <td>Urine cannabinoids detection by screening method</td> <td>POSITIVE </td> <td> NEGATIVE</td> </tr> <tr> <td>Urine opiates detection by screening method</td> <td>NEGATIVE </td> <td>NEGATIVE</td> </tr> <tr> <td>Urine barbiturates detection</td> < td>NEGATIVE </td> <td>NEGATIVE</td> </tr> <tr> < td>Screening urine tricyclic antidepressants detection</td> <td> NEGATIVE </td> <td>NEGATIVE</td> </tr> <tr> <td> Urine methadone detection by screening method</td> <td>NEGATIVE </td> <td>NEGATIVE</td> </tr> <tr> <td>Urine oxycodone detection</td> <td>NEGATIVE </td> <td>NEGATIVE</td> </tr> <tr> <td>Urine propoxyphene detection</td> <td>NEGATIVE </td> <td>NEGATIVE</td> </tr> <tr> <th colspan="10">Bacteria identification in isolate by anaerobe culture - 16:37</th> </tr> <tr> <td>Bacteria identification in isolate by anaerobe culture</td> <td>NOANA </td> <td>NRG</ td> </tr> <tr> <th colspan="10">Gram stain microscopy - 01/29/18 16:37</th> </tr> <tr> <td>Gram stain microscopy< /td> <td>REPORTED 01-30-2018,0605. </td> <td>NRG</td> </ tr> <tr> <th colspan="10">Bacteria identification in wound by culture - 01/29/18 16:37</th> </tr> <tr> <td>Bacteria identification in wound by culture</td> <td>SEE REPORT </td> < td>NRG</td> </tr> <tr> <td>FREE TEXT EXTERNAL</td> <td>METHICILLIN-RESISTANT STAPH AUREUS </td> <td>NRG</td> </ tr> <tr> <td>QUANTITY OF GROWTH</td> <td>. </td> <td>NRG</td> </tr> <tr> <th colspan="10">[facility] Sensitivity Panel - 01/29/18 16:37</th> </tr> <tr> <td> Oxacillin susceptibility test by minimum inhibitory concentration</td> <td>R </td> <td>NRG</td> </tr> <tr> <td> Clindamycin susceptibility test by minimum inhibitory concentration</td> <td><=</td> <td>NRG</td> </tr> <tr> <td> Erythromycin susceptibility test by minimum inhibitory concentration</td> <td>> </td> <td>NRG</td> </tr> <tr> <td> Trimethoprim/sulfamethoxazole susceptibility test by minimum inhibitoryconcentration</td> <td>S </td> <td>NRG</td> < /tr> <tr> <td>Vancomycin susceptibility test by minimum inhibitory concentration</td> <td>1 </td> <td>NRG</td> </tr> <tr> <td>Levofloxacin susceptibility test by minimum inhibitory concentration</td> <td>4 </td> <td>NRG</td> </tr> <tr> <td>Rifampin susceptibility test by minimum inhibitory concentration</td> <td><=</td> <td>NRG</td> </tr> <tr> <td>Cefazolin susceptibility test by minimum inhibitory concentration</td> <td>> </td> <td>NRG</td> </tr> <tr> <td>Linezolid susceptibility test by minimum inhibitory concentration</td> <td>2 </td> <td>NRG</td> </tr> <tr> <td>Penicillin G susceptibility test by minimum inhibitory concentration</td> <td>> </td> <td>NRG</td> </tr> <tr> <td>Moxifloxacin susceptibility test by minimum inhibitory concentration</td> <td>S </td> <td>NRG</td> </tr> <tr> <td>Minocycline susc SHAYNA</td> <td><=</td > <td>NRG</td> </tr> </tbody> </table> </text> <entry > <organizer moodCode="EVN" classCode="BATTERY"> <templateId root= "[id number]..22.4.1" /> <id nullFlavor="NA" /> <code codeSystem="local" code="UA" displayName="URINALYSIS, ROUTINE" /> < statusCode code="completed" /> <component> <observation moodCode= "EVN" classCode="OBS"> <templateId root="2.16.840.1.796835.10.20.22.4.2 " /> <id nullFlavor="NA" /> <code codeSystem="local" code= "LEUESU" displayName="UA LEUKOCYTE ESTERASE DIPSTICK" /> <statusCode code="completed" /> <effectiveTime value="896315186611" /> < value unit="" xsi:type="PQ" value="2+" /> <interpretationCode codeSystem="local" code="*" /> <referenceRange> < observationRange> <text>NEGATIVE</text> </ observationRange> </referenceRange> </observation> </ component> <component> <observation moodCode="EVN" classCode="OBS"> <templateId root="16.840.1.107808.10..22.4.2" /> <id nullFlavor="NA" /> <code codeSystem="local" code="NITRIU" displayName= "UA NITRITE DIPSTICK" /> <statusCode code="completed" /> < effectiveTime value="" /> <value unit="" xsi:type="PQ" value="POSITIVE" /> <interpretationCode codeSystem="local" code="*" /> <referenceRange> <observationRange> <text> NEGATIVE</text> </observationRange> </referenceRange> </observation> </component> <component> <observation moodCode ="EVN" classCode="OBS"> <templateId root= "[id number].2" /> <id nullFlavor="NA" /> < code codeSystem="local" code="PROTEIU" displayName="UA PROTEIN DIPSTICK" /> <statusCode code="completed" /> <effectiveTime value= "" /> <value unit="" xsi:type="PQ" value="1+" /> < interpretationCode codeSystem="local" code="*" /> <referenceRange> <observationRange> <text>NEGATIVE</text> </ observationRange> </referenceRange> </observation> </ component> <component> <observation moodCode="EVN" classCode="OBS"> <templateId root="16.840.1.490619...4.2" /> <id nullFlavor="NA" /> <code codeSystem="local" code="DGLUU" displayName= "UA GLUCOSE DIPSTICK" /> <statusCode code="completed" /> < effectiveTime value="" /> <value unit="" xsi:type="PQ" value="NEGATIVE" /> <referenceRange> <observationRange> <text>NEGATIVE</text> </observationRange> </ referenceRange> </observation> </component> <component> <observation moodCode="EVN" classCode="OBS"> <templateId root= "16.840.1.326698.10.22.4.2" /> <id nullFlavor="NA" /> < code codeSystem="local" code="KETONU" displayName="UA KETONE DIPSTICK" /> <statusCode code="completed" /> <effectiveTime value="825157785431 " /> <value unit="" xsi:type="PQ" value="NEGATIVE" /> < referenceRange> <observationRange> <text>NEGATIVE</text > </observationRange> </referenceRange> </observation > </component> <component> <observation moodCode="EVN" classCode="OBS"> <templateId root="06.27.840.1.454087.1022.4.2" /> <id nullFlavor="NA" /> <code codeSystem="local" code="UROBILU " displayName="UA UROBILINOGEN DIPSTICK" /> <statusCode code="completed " /> <effectiveTime value="496493054019" /> <value unit="" xsi :type="PQ" value="NORMAL" /> <referenceRange> < observationRange> <text>NORMAL</text> </observationRange > </referenceRange> </observation> </component> < component> <observation moodCode="EVN" classCode="OBS"> < templateId root="06.27.840.1.816972.102022.4.2" /> <id nullFlavor="NA " /> <code codeSystem="local" code="BILU" displayName="UA BILIRUBIN DIPSTICK" /> <statusCode code="completed" /> <effectiveTime value="919059398752" /> <value unit="" xsi:type="PQ" value="NEGATIVE" / > <referenceRange> <observationRange> <text> NEGATIVE</text> </observationRange> </referenceRange> </observation> </component> <component> <observation moodCode ="EVN" classCode="OBS"> <templateId root= "216.840.1.931550.02.28.22.4.2" /> <id nullFlavor="NA" /> < code codeSystem="local" code="NOLVIA" displayName="UA BLOOD DIPSTICK" /> < statusCode code="completed" /> <effectiveTime value="" /> <value unit="" xsi:type="PQ" value="TRACE" /> < interpretationCode codeSystem="local" code="*" /> <referenceRange> <observationRange> <text>NEGATIVE</text> </ observationRange> </referenceRange> </observation> </ component> <component> <observation moodCode="EVN" classCode="OBS"> <templateId root="216.840.1.234107.02.28.22.4.2" /> <id nullFlavor="NA" /> <code codeSystem="local" code="SPGRU" displayName= "UA SPECIFIC GRAVITY" /> <statusCode code="completed" /> < effectiveTime value="251369874498" /> <value unit="" xsi:type="PQ" value="1.015" /> <referenceRange> <observationRange> <text>1.015-1.025</text> </observationRange> </ referenceRange> </observation> </component> <component> <observation moodCode="EVN" classCode="OBS"> <templateId root= "216.840.1.638033...4.2" /> <id nullFlavor="NA" /> < code codeSystem="local" code="DIETER" displayName="UR PH" /> <statusCode code="completed" /> <effectiveTime value="517088390489" /> < value unit="" xsi:type="PQ" value="6.0" /> <referenceRange> <observationRange> <text>5.0-7.0</text> </ observationRange> </referenceRange> </observation> </ component> <component> <observation moodCode="EVN" classCode="OBS"> <templateId root="840.1.667100.02.28.22.4.2" /> <id nullFlavor="NA" /> <code codeSystem="local" code="MB" displayName= "Microbiology" /> <statusCode code="completed" /> < effectiveTime value="913623049780" /> <value unit="" xsi:type="PQ" value="" /> <referenceRange> <observationRange> <text /> </observationRange> </referenceRange> </ observation> </component> </organizer> </entry> <entry> <organizer moodCode="EVN" classCode="BATTERY"> <templateId root= "06.27.840.1.946100.02.28.22.4.1" /> <id nullFlavor="NA" /> <code codeSystem="local" code="UAMICRO" displayName="UA MICROSCOPIC" /> < statusCode code="completed" /> <component> <observation moodCode= "EVN" classCode="OBS"> <templateId root="06.27.840.1.247272.22.4.2 " /> <id nullFlavor="NA" /> <code codeSystem="local" code= "EPIU" displayName="UA EPITHELIAL CELLS" /> <statusCode code="completed " /> <effectiveTime value="" /> <value unit="epi/ hpf" xsi:type="PQ" value="2+" /> <interpretationCode codeSystem="local " code="*" /> <referenceRange> <observationRange> <text>0 - 1+</text> </observationRange> </referenceRange > </observation> </component> <component> <observation moodCode="EVN" classCode="OBS"> <templateId root= "16.840.1.822918.02.28.22.4.2" /> <id nullFlavor="NA" /> < code codeSystem="local" code="RBCU" displayName="UA RBC" /> < statusCode code="completed" /> <effectiveTime value="" /> <value unit="rbc/hpf" xsi:type="PQ" value="0" /> < referenceRange> <observationRange> <text>0 - 3</text> </observationRange> </referenceRange> </observation> </component> <component> <observation moodCode="EVN" classCode= "OBS"> <templateId root="06.27.840.1.970673.02.28.22.4.2" /> < id nullFlavor="NA" /> <code codeSystem="local" code="UAVOL" displayName ="UA VOLUME FOR EXAM" /> <statusCode code="completed" /> < effectiveTime value="" /> <value unit="mL" xsi:type="PQ" value="12.0" /> <referenceRange> <observationRange> <text>(12mL STD)</text> </observationRange> </ referenceRange> </observation> </component> <component> <observation moodCode="EVN" classCode="OBS"> <templateId root= "216.840.1.031398.22.4.2" /> <id nullFlavor="NA" /> < code codeSystem="local" code="WBCU" displayName="UA WBC" /> < statusCode code="completed" /> <effectiveTime value="734193022568" /> <value unit="wbc/hpf" xsi:type="PQ" value="20-50" /> < interpretationCode codeSystem="local" code="*" /> <referenceRange> <observationRange> <text>0 - 5</text> </ observationRange> </referenceRange> </observation> </ component> <component> <observation moodCode="EVN" classCode="OBS"> <templateId root="840.1.299124.02.28.22.4.2" /> <id nullFlavor="NA" /> <code codeSystem="local" code="WBCCLUMPS" displayName="WBC CLUMPS" /> <statusCode code="completed" /> < effectiveTime value="269670855234" /> <value unit="" xsi:type="PQ" value="PRESENT" /> <interpretationCode codeSystem="local" code="*" /> <referenceRange> <observationRange> <text> NEGATIVE</text> </observationRange> </referenceRange> </observation> </component> </organizer> </entry> <entry> < organizer moodCode="EVN" classCode="BATTERY"> <templateId root= "840.1.237441.22.4.1" /> <id nullFlavor="NA" /> <code codeSystem="local" code="PREGU" displayName="UR TEST" /> < statusCode code="completed" /> <component> <observation moodCode= "EVN" classCode="OBS"> <templateId root="840.1.999362.22.4.2 " /> <id nullFlavor="NA" /> <code codeSystem="local" code= "PREGU" displayName="UR TEST" /> <statusCode code="completed " /> <effectiveTime value="873329171988" /> <value unit="" xsi :type="PQ" value="NEGATIVE" /> <referenceRange> < observationRange> <text>NEGATIVE</text> </ observationRange> </referenceRange> </observation> </ component> <component> <observation moodCode="EVN" classCode="OBS"> <templateId root="06.27.840.1.167825.10..4.2" /> <id nullFlavor="NA" /> <code codeSystem="local" code="MB" displayName= "Microbiology" /> <statusCode code="completed" /> < effectiveTime value="791522990434" /> <value unit="" xsi:type="PQ" value="" /> <referenceRange> <observationRange> <text /> </observationRange> </referenceRange> </ observation> </component> </organizer> </entry> <entry> <organizer moodCode="EVN" classCode="BATTERY"> <templateId root= "06.27.840.1.880964.10.4.1" /> <id nullFlavor="NA" /> <code codeSystem="local" code="PREGU" displayName="UR TEST" /> < statusCode code="completed" /> <component> <observation moodCode= "EVN" classCode="OBS"> <templateId root="06.27.840.1.602592.02.28.22.4.2 " /> <id nullFlavor="NA" /> <code codeSystem="local" code= "PREGU" displayName="UR TEST" /> <statusCode code="completed " /> <effectiveTime value="224165387208" /> <value xsi:type= "ST" value="<pre><b>UR TEST</b> NEGATIVE</pre>" /> < referenceRange> <observationRange> <text>NEGATIVE</text > </observationRange> </referenceRange> </observation > </component> <component> <observation moodCode="EVN" classCode="OBS"> <templateId root="216.840.1.719892.02.28.22.4.2" /> <id nullFlavor="NA" /> <code codeSystem="local" code="MB" displayName="Microbiology" /> <statusCode code="completed" /> <effectiveTime value="461350432797" /> <value xsi:type="ST" value="<pre ><b>UR TEST</b> NEGATIVE</pre>" /> <referenceRange> <observationRange> <text /> </observationRange> </referenceRange> </observation> </component> </organizer> </entry> <entry> <organizer moodCode="EVN" classCode="BATTERY"> < templateId root="16.840.1.329173.02.28.22.4.1" /> <id nullFlavor="NA" /> <code codeSystem="local" code="UA" displayName="URINALYSIS, ROUTINE" /> <statusCode code="completed" /> <component> <observation moodCode="EVN" classCode="OBS"> <templateId root= "16.840.1.566258.10..4.2" /> <id nullFlavor="NA" /> < code codeSystem="local" code="LEUESU" displayName="UA LEUKOCYTE ESTERASE DIPSTICK" /> <statusCode code="completed" /> <effectiveTime value="399883689891" /> <value unit="" xsi:type="PQ" value="TRACE" /> <referenceRange> <observationRange> <text> NEGATIVE</text> </observationRange> </referenceRange> </observation> </component> <component> <observation moodCode ="EVN" classCode="OBS"> <templateId root= "216.840.1.125397.10.4.2" /> <id nullFlavor="NA" /> < code codeSystem="local" code="NITRIU" displayName="UA NITRITE DIPSTICK" /> <statusCode code="completed" /> <effectiveTime value="310184306656 " /> <value unit="" xsi:type="PQ" value="NEGATIVE" /> < referenceRange> <observationRange> <text>NEGATIVE</text > </observationRange> </referenceRange> </observation > </component> <component> <observation moodCode="EVN" classCode="OBS"> <templateId root="06.27.840.1.240162.02.28.22.4.2" /> <id nullFlavor="NA" /> <code codeSystem="local" code="PROTEIU " displayName="UA PROTEIN DIPSTICK" /> <statusCode code="completed" /> <effectiveTime value="690365221008" /> <value unit="" xsi: type="PQ" value="2+" /> <interpretationCode codeSystem="local" code="* " /> <referenceRange> <observationRange> <text> NEGATIVE</text> </observationRange> </referenceRange> </observation> </component> <component> <observation moodCode ="EVN" classCode="OBS"> <templateId root= "16.840.1.723675...4.2" /> <id nullFlavor="NA" /> < code codeSystem="local" code="DGLUU" displayName="UA GLUCOSE DIPSTICK" /> <statusCode code="completed" /> <effectiveTime value="897717137639 " /> <value unit="" xsi:type="PQ" value="NEGATIVE" /> < referenceRange> <observationRange> <text>NEGATIVE</text > </observationRange> </referenceRange> </observation > </component> <component> <observation moodCode="EVN" classCode="OBS"> <templateId root="216.840.1.473963.10.4.2" /> <id nullFlavor="NA" /> <code codeSystem="local" code="KETONU" displayName="UA KETONE DIPSTICK" /> <statusCode code="completed" /> <effectiveTime value="648089802300" /> <value unit="" xsi:type= "PQ" value="2+" /> <interpretationCode codeSystem="local" code="*" /> <referenceRange> <observationRange> <text> NEGATIVE</text> </observationRange> </referenceRange> </observation> </component> <component> <observation moodCode ="EVN" classCode="OBS"> <templateId root= "16.840.1.204213.02.28.22.4.2" /> <id nullFlavor="NA" /> < code codeSystem="local" code="UROBILU" displayName="UA UROBILINOGEN DIPSTICK" / > <statusCode code="completed" /> <effectiveTime value= "647702682229" /> <value unit="" xsi:type="PQ" value="2+" /> < referenceRange> <observationRange> <text>NORMAL</text> </observationRange> </referenceRange> </observation> </component> <component> <observation moodCode="EVN" classCode ="OBS"> <templateId root="216.840.1.509525...4.2" /> < id nullFlavor="NA" /> <code codeSystem="local" code="BILU" displayName= "UA BILIRUBIN DIPSTICK" /> <statusCode code="completed" /> < effectiveTime value="134281448597" /> <value unit="" xsi:type="PQ" value="1+" /> <interpretationCode codeSystem="local" code="*" /> <referenceRange> <observationRange> <text>NEGATIVE</ text> </observationRange> </referenceRange> </ observation> </component> <component> <observation moodCode= "EVN" classCode="OBS"> <templateId root="2.16.840.1.407039.10..4.2 " /> <id nullFlavor="NA" /> <code codeSystem="local" code="NOLVIA " displayName="UA BLOOD DIPSTICK" /> <statusCode code="completed" /> <effectiveTime value="886835301060" /> <value unit="" xsi:type= "PQ" value="TRACE" /> <interpretationCode codeSystem="local" code="*" / > <referenceRange> <observationRange> <text> NEGATIVE</text> </observationRange> </referenceRange> </observation> </component> <component> <observation moodCode ="EVN" classCode="OBS"> <templateId root= "[id number]..4.2" /> <id nullFlavor="NA" /> < code codeSystem="local" code="SPGRU" displayName="UA SPECIFIC GRAVITY" /> <statusCode code="completed" /> <effectiveTime value="[id number] " /> <value unit="" xsi:type="PQ" value="1.015" /> < referenceRange> <observationRange> <text>1.015-1.025</ text> </observationRange> </referenceRange> </ observation> </component> <component> <observation moodCode= "EVN" classCode="OBS"> <templateId root="[id number] " /> <id nullFlavor="NA" /> <code codeSystem="local" code="DIETER " displayName="UR PH" /> <statusCode code="completed" /> < effectiveTime value="[id number]" /> <value unit="" xsi:type="PQ" value="6.0" /> <referenceRange> <observationRange> <text>5.0-7.0</text> </observationRange> </ referenceRange> </observation> </component> <component> <observation moodCode="EVN" classCode="OBS"> <templateId root= "[id number]" /> <id nullFlavor="NA" /> < code codeSystem="local" code="MB" displayName="Microbiology" /> < statusCode code="completed" /> <effectiveTime value="[id number]" /> <value unit="" xsi:type="PQ" value="" /> <referenceRange> <observationRange> <text /> </observationRange> </referenceRange> </observation> </component> </ organizer> </entry> <entry> <organizer moodCode="EVN" classCode="BATTERY"> <templateId root="06.27.840.1.385547.02.28.22.4.1" /> <id nullFlavor= "NA" /> <code codeSystem="local" code="UAMICRO" displayName="UA MICROSCOPIC " /> <statusCode code="completed" /> <component> <observation moodCode="EVN" classCode="OBS"> <templateId root= "06.27.840.1.760148.02.28.22.4.2" /> <id nullFlavor="NA" /> < code codeSystem="local" code="BACU" displayName="UA BACTERIA" /> < statusCode code="completed" /> <effectiveTime value="195242945852" /> <value unit="" xsi:type="PQ" value="2+" /> < interpretationCode codeSystem="local" code="*" /> <referenceRange> <observationRange> <text>NEGATIVE</text> </ observationRange> </referenceRange> </observation> </ component> <component> <observation moodCode="EVN" classCode="OBS"> <templateId root="216.840.1.058749.02.28.22.4.2" /> <id nullFlavor="NA" /> <code codeSystem="local" code="EPIU" displayName=" UA EPITHELIAL CELLS" /> <statusCode code="completed" /> < effectiveTime value="028053110428" /> <value unit="epi/hpf" xsi:type= "PQ" value="1+" /> <referenceRange> <observationRange> <text>0 - 1+</text> </observationRange> </ referenceRange> </observation> </component> <component> <observation moodCode="EVN" classCode="OBS"> <templateId root= "216.840.1.047387.02.28.22.4.2" /> <id nullFlavor="NA" /> < code codeSystem="local" code="MUCUSU" displayName="UA MUCUS" /> < statusCode code="completed" /> <effectiveTime value="423435855110" /> <value unit="" xsi:type="PQ" value="1+" /> <referenceRange> <observationRange> <text>NEG TO 1+</text> </ observationRange> </referenceRange> </observation> </ component> <component> <observation moodCode="EVN" classCode="OBS"> <templateId root="216.840.1.926280.10..22.4.2" /> <id nullFlavor="NA" /> <code codeSystem="local" code="RBCU" displayName=" UA RBC" /> <statusCode code="completed" /> <effectiveTime value="480648381428" /> <value unit="rbc/hpf" xsi:type="PQ" value="0-3 " /> <referenceRange> <observationRange> <text> 0 - 3</text> </observationRange> </referenceRange> </ observation> </component> <component> <observation moodCode= "EVN" classCode="OBS"> <templateId root="216.840.1.792718.10..4.2 " /> <id nullFlavor="NA" /> <code codeSystem="local" code= "UAVOL" displayName="UA VOLUME FOR EXAM" /> <statusCode code="completed " /> <effectiveTime value="043273297537" /> <value unit="mL" xsi:type="PQ" value="12.0" /> <referenceRange> < observationRange> <text>(12mL STD)</text> </ observationRange> </referenceRange> </observation> </ component> <component> <observation moodCode="EVN" classCode="OBS"> <templateId root="16.840.1.554375.10..22.4.2" /> <id nullFlavor="NA" /> <code codeSystem="local" code="WBCU" displayName=" UA WBC" /> <statusCode code="completed" /> <effectiveTime value="047498278559" /> <value unit="wbc/hpf" xsi:type="PQ" value="10- 20" /> <interpretationCode codeSystem="local" code="*" /> < referenceRange> <observationRange> <text>0 - 5</text> </observationRange> </referenceRange> </observation> </component> </organizer> </entry> <entry> <organizer moodCode="EVN " classCode="BATTERY"> <templateId root="16.840.1.070156.10..22.4.1" / > <id nullFlavor="NA" /> <code codeSystem="local" code="CBCD" displayName="CBC W/DIFF" /> <statusCode code="completed" /> <component > <observation moodCode="EVN" classCode="OBS"> <templateId root= "06.27.840.1.152317.10...4.2" /> <id nullFlavor="NA" /> < code codeSystem="local" code="CBCCOM" displayName="COMMENT" /> < statusCode code="completed" /> <effectiveTime value="489794160726" /> <value xsi:type="ST" value="<pre><b>CBC W/DIFF</b> 6.64.729.932.067.821.030.922.8154373482.30.90.4NOTEDREVIEWED</pre>" /> <referenceRange> <observationRange> <text /> </observationRange> </referenceRange> </observation> </ component> <component> <observation moodCode="EVN" classCode="OBS"> <templateId root="06.27.840.1.922137.10...4.2" /> <id nullFlavor="NA" /> <code codeSystem="local" code="GR#" displayName= "GRANULOCYTE #" /> <statusCode code="completed" /> < effectiveTime value="120113773676" /> <value xsi:type="ST" value="<pre> <b>CBC W/DIFF</b> 6.64.729.932.067.821.030.922.9211201921.3090.4NOTEDREVIEWED</ pre>" /> <referenceRange> <observationRange> < text>2.0-9.0</text> </observationRange> </referenceRange> </observation> </component> <component> <observation moodCode="EVN" classCode="OBS"> <templateId root= "2.16.840.1.416524.10.20.22.4.2" /> <id nullFlavor="NA" /> < code codeSystem="local" code="GR%" displayName="GRANULOCYTE %" /> <statusCode code="completed" /> <effectiveTime value="888736316592 " /> <value xsi:type="ST" value="<pre><b>CBC W/DIFF</b> 6.729.932.067.821.030.922.7187044070.30.90.4NOTEDREVIEWED</pre>" /> <interpretationCode codeSystem="local" code="*" /> <referenceRange> <observationRange> <text>50-75</text> </ observationRange> </referenceRange> </observation> </ component> <component> <observation moodCode="EVN" classCode="OBS"> <templateId root="2.16.840.1.199716.10.20.22.4.2" /> <id nullFlavor="NA" /> <code codeSystem="local" code="LY#" displayName= "LYMPHOCYTE #" /> <statusCode code="completed" /> < effectiveTime value="900426927990" /> <value xsi:type="ST" value="<pre> <b>CBC W/DIFF</b> 6.64.729.932.067.821.030.922.4571839682.30.90.4NOTEDREVIEWED</ pre>" /> <interpretationCode codeSystem="local" code="*" /> < referenceRange> <observationRange> <text>1.0-4.0</text> </observationRange> </referenceRange> </observation > </component> <component> <observation moodCode="EVN" classCode="OBS"> <templateId root="2.16.840.1.367847.10.20.22.4.2" /> <id nullFlavor="NA" /> <code codeSystem="local" code="LY% " displayName="LYMPHOCYTE %" /> <statusCode code="completed" /> <effectiveTime value="495339479019" /> <value xsi:type="ST" value="<pre><b>CBC W/DIFF</b> 6.729.932.067.821.030.922.0860100102..4NOTEDREVIEWED</pre>" /> <interpretationCode codeSystem="local" code="*" /> <referenceRange> <observationRange> <text>20-30</text> </ observationRange> </referenceRange> </observation> </ component> <component> <observation moodCode="EVN" classCode="OBS"> <templateId root="2.16.840.1.210367.10.20.22.4.2" /> <id nullFlavor="NA" /> <code codeSystem="local" code="MCH" displayName= "MEAN CELL HGB" /> <statusCode code="completed" /> < effectiveTime value="901338120090" /> <value xsi:type="ST" value="<pre> <b>CBC W/DIFF</b> 6729.932.067.821.030.922.7653268462.90.4NOTEDREVIEWED</ pre>" /> <interpretationCode codeSystem="local" code="*" /> < referenceRange> <observationRange> <text>27.0-33.0</text > </observationRange> </referenceRange> </observation > </component> <component> <observation moodCode="EVN" classCode="OBS"> <templateId root="2.16.840.1.145678.10...4.2" /> <id nullFlavor="NA" /> <code codeSystem="local" code="MCHC" displayName="MEAN CELL HGB CONCENTRATION" /> <statusCode code= "completed" /> <effectiveTime value="172591072134" /> <value xsi:type="ST" value="<pre><b>CBC W/DIFF</b> 6.729.932.067.821.030.922.4287658016.90.4NOTEDREVIEWED</pre>" /> <interpretationCode codeSystem="local" code="*" /> <referenceRange> <observationRange> <text>32.0-37.0</text> </ observationRange> </referenceRange> </observation> </ component> <component> <observation moodCode="EVN" classCode="OBS"> <templateId root="2.16.840.1.993741.10..22.4.2" /> <id nullFlavor="NA" /> <code codeSystem="local" code="MCV" displayName= "MEAN CELL VOLUME" /> <statusCode code="completed" /> < effectiveTime value="814057860108" /> <value xsi:type="ST" value="<pre> <b>CBC W/DIFF</b> 6.729.932.067.821.030.922.7104405787..4NOTEDREVIEWED</ pre>" /> <interpretationCode codeSystem="local" code="*" /> < referenceRange> <observationRange> <text>80.0-100.0</ text> </observationRange> </referenceRange> </ observation> </component> <component> <observation moodCode= "EVN" classCode="OBS"> <templateId root="2.16.840.1.111242.10..4.2 " /> <id nullFlavor="NA" /> <code codeSystem="local" code="MO# " displayName="MONOCYTE #" /> <statusCode code="completed" /> <effectiveTime value="468905675340" /> <value xsi:type="ST" value="<pre ><b>CBC W/DIFF</b> 729.932.067.821.030.922.6258707777.4NOTEDREVIEWED< /pre>" /> <referenceRange> <observationRange> < text>0.1-1.0</text> </observationRange> </referenceRange> </observation> </component> <component> <observation moodCode="EVN" classCode="OBS"> <templateId root= "2.16.840.1.129661.10...4.2" /> <id nullFlavor="NA" /> < code codeSystem="local" code="MO%" displayName="MONOCYTE %" /> <statusCode code="completed" /> <effectiveTime value="582635630588" /> <value xsi:type="ST" value="<pre><b>CBC W/DIFF</b> 6729.932.067.821.030.922.1182920455.4NOTEDREVIEWED</pre>" /> <referenceRange> <observationRange> <text>4-6</text> </observationRange> </referenceRange> </observation> </component> <component> <observation moodCode="EVN" classCode= "OBS"> <templateId root="2.16.840.1.340634.10.20.22.4.2" /> < id nullFlavor="NA" /> <code codeSystem="local" code="OVAL" displayName= "OVALOCYTES" /> <statusCode code="completed" /> < effectiveTime value="961700225668" /> <value xsi:type="ST" value="<pre> <b>CBC W/DIFF</b> 6.64.729.932.067.821.030.922.4993847016...4NOTEDREVIEWED</ pre>" /> <referenceRange> <observationRange> < text /> </observationRange> </referenceRange> </ observation> </component> <component> <observation moodCode= "EVN" classCode="OBS"> <templateId root="2.16.840.1.234049.10.20.22.4.2 " /> <id nullFlavor="NA" /> <code codeSystem="local" code="RBC " displayName="RED BLOOD CELL" /> <statusCode code="completed" /> <effectiveTime value="425093056809" /> <value xsi:type="ST" value= "<pre><b>CBC W/DIFF</b> 6.64.729.932.067.821.030.922.1774110463..4NOTEDREVIEWED</pre>" /> <referenceRange> <observationRange> <text>4.00-6.00</ text> </observationRange> </referenceRange> </ observation> </component> <component> <observation moodCode= "EVN" classCode="OBS"> <templateId root="2.16.840.1.464943.10..22.4.2 " /> <id nullFlavor="NA" /> <code codeSystem="local" code="RDW " displayName="RED CELL DISTRIBUTION WIDTH" /> <statusCode code= "completed" /> <effectiveTime value="002644892710" /> <value xsi:type="ST" value="<pre><b>CBC W/DIFF</b> 6.64.729.932.067.821.030.922.1830160829..4NOTEDREVIEWED</pre>" /> <interpretationCode codeSystem="local" code="*" /> <referenceRange> <observationRange> <text>11.0-15.6</text> </ observationRange> </referenceRange> </observation> </ component> <component> <observation moodCode="EVN" classCode="OBS"> <templateId root="16.840.1.630633.10..22.4.2" /> <id nullFlavor="NA" /> <code codeSystem="local" code="WBC" displayName= "WHITE BLOOD CELL" /> <statusCode code="completed" /> < effectiveTime value="877661859009" /> <value xsi:type="ST" value="<pre> <b>CBC W/DIFF</b> 6.64729.932.067.821.030.922.2026555699..4NOTEDREVIEWED</ pre>" /> <referenceRange> <observationRange> < text>5.0-10.0</text> </observationRange> </referenceRange> </observation> </component> <component> <observation moodCode="EVN" classCode="OBS"> <templateId root= "216.840.1.242313.10..22.4.2" /> <id nullFlavor="NA" /> < code codeSystem="local" code="HGBT" displayName="HEMOGLOBIN" /> < statusCode code="completed" /> <effectiveTime value="349030331228" /> <value xsi:type="ST" value="<pre><b>CBC W/DIFF</b> 6.64.729.932.067.821.030.922.1775959338.90.4NOTEDREVIEWED</pre>" /> <interpretationCode codeSystem="local" code="*" /> <referenceRange> <observationRange> <text>12.0-16.0</text> </ observationRange> </referenceRange> </observation> </ component> <component> <observation moodCode="EVN" classCode="OBS"> <templateId root="216.840.1.166409.10...4.2" /> <id nullFlavor="NA" /> <code codeSystem="local" code="HCTT" displayName= "HEMATOCRIT" /> <statusCode code="completed" /> < effectiveTime value="130816759329" /> <value xsi:type="ST" value="<pre> <b>CBC W/DIFF</b> 6.64.729.932.067.821.030.922.3980997378..4NOTEDREVIEWED</ pre>" /> <interpretationCode codeSystem="local" code="*" /> < referenceRange> <observationRange> <text>37.0-47.0</text > </observationRange> </referenceRange> </observation > </component> <component> <observation moodCode="EVN" classCode="OBS"> <templateId root="216.840.1.513393.10..22.4.2" /> <id nullFlavor="NA" /> <code codeSystem="local" code="PLT" displayName="PLATELET COUNT" /> <statusCode code="completed" /> <effectiveTime value="195709726938" /> <value xsi:type="ST" value="< pre><b>CBC W/DIFF</b> 6.64.729.932.067.821.030.922.2487976852..4NOTEDREVIEWED</pre>" /> <referenceRange> <observationRange> <text>150-450</text > </observationRange> </referenceRange> </observation > </component> <component> <observation moodCode="EVN" classCode="OBS"> <templateId root="2.16.840.1.093909.10..22.4.2" /> <id nullFlavor="NA" /> <code codeSystem="local" code="MB" displayName="Microbiology" /> <statusCode code="completed" /> <effectiveTime value="020175151276" /> <value xsi:type="ST" value="<pre ><b>CBC W/DIFF</b> 6.64.729.932.067.821.030.922.9618186827...4NOTEDREVIEWED< /pre>" /> <referenceRange> <observationRange> < text /> </observationRange> </referenceRange> </ observation> </component> </organizer> </entry> <entry> <organizer moodCode="EVN" classCode="BATTERY"> <templateId root= "2.16.840.1.225981.10..22.4.1" /> <id nullFlavor="NA" /> <code codeSystem="local" code="METAB" displayName="METABOLIC PANEL, BASIC" /> < statusCode code="completed" /> <component> <observation moodCode= "EVN" classCode="OBS"> <templateId root="06.27.840.1.799258.10..22.4.2 " /> <id nullFlavor="NA" /> <code codeSystem="local" code="K" displayName="POTASSIUM" /> <statusCode code="completed" /> < effectiveTime value="918892280933" /> <value xsi:type="ST" value="<pre> <b>METABOLIC PANEL, BASIC</b> 1362.011386913157.8> 60> 609.5</pre>" /> <interpretationCode codeSystem="local" code="*" /> <referenceRange> <observationRange> <text>3.5-5.3</text> </ observationRange> </referenceRange> </observation> </ component> <component> <observation moodCode="EVN" classCode="OBS"> <templateId root="840.1.517939.02.28.22.4.2" /> <id nullFlavor="NA" /> <code codeSystem="local" code="eGFR" displayName= "EST GFR (MDRD)" /> <statusCode code="completed" /> < effectiveTime value="886233666064" /> <value xsi:type="ST" value="<pre> <b>METABOLIC PANEL, BASIC</b> 1362.707256752162.8> 60> 609.5</pre>" /> <referenceRange> <observationRange> <text>> 59</text > </observationRange> </referenceRange> </observation > </component> <component> <observation moodCode="EVN" classCode="OBS"> <templateId root="06.27.840.1.798790.10.20.22.4.2" /> <id nullFlavor="NA" /> <code codeSystem="local" code="GAP" displayName="ANION GAP" /> <statusCode code="completed" /> < effectiveTime value="885619478435" /> <value xsi:type="ST" value="<pre> <b>METABOLIC PANEL, BASIC</b> 1362.849982828992.8> 60> 609.5</pre>" /> <referenceRange> <observationRange> <text>5-15</text> </observationRange> </referenceRange> </observation> </component> <component> <observation moodCode="EVN" classCode= "OBS"> <templateId root="2.16.840.1.351976.10.20.22.4.2" /> < id nullFlavor="NA" /> <code codeSystem="local" code="eCrCl" displayName ="EST CrCl (CG)" /> <statusCode code="completed" /> < effectiveTime value="185004213869" /> <value xsi:type="ST" value="<pre> <b>METABOLIC PANEL, BASIC</b> 1362.359826074654.8> 60> 609.5</pre>" /> <referenceRange> <observationRange> <text>> 59</text > </observationRange> </referenceRange> </observation > </component> <component> <observation moodCode="EVN" classCode="OBS"> <templateId root="2.16.840.1.869322.10..22.4.2" /> <id nullFlavor="NA" /> <code codeSystem="local" code="GLU" displayName="GLUCOSE" /> <statusCode code="completed" /> < effectiveTime value="019252675352" /> <value xsi:type="ST" value="<pre> <b>METABOLIC PANEL, BASIC</b> 1362.521573493458.8> 60> 609.5</pre>" /> <referenceRange> <observationRange> <text>70-99</text> </observationRange> </referenceRange> </observation> </component> <component> <observation moodCode="EVN" classCode ="OBS"> <templateId root="16.840.1.666800.10..22.4.2" /> < id nullFlavor="NA" /> <code codeSystem="local" code="CA" displayName= "CALCIUM" /> <statusCode code="completed" /> <effectiveTime value="111074550472" /> <value xsi:type="ST" value="<pre><b>METABOLIC PANEL, BASIC</b> 1362.437228458011.8> 60> 609.5</pre>" /> < referenceRange> <observationRange> <text>8.5-10.1</text > </observationRange> </referenceRange> </observation > </component> <component> <observation moodCode="EVN" classCode="OBS"> <templateId root="06.27.840.1.710221.10..22.4.2" /> <id nullFlavor="NA" /> <code codeSystem="local" code="BUN" displayName="BLOOD UREA NITROGEN" /> <statusCode code="completed" /> <effectiveTime value="487022288370" /> <value xsi:type="ST" value="<pre><b>METABOLIC PANEL, BASIC</b> 1362.730914926191.8> 60> 609.5</pre>" /> <referenceRange> <observationRange> <text>7- 20</text> </observationRange> </referenceRange> </ observation> </component> <component> <observation moodCode= "EVN" classCode="OBS"> <templateId root="16.840.1.527292.10.20.22.4.2 " /> <id nullFlavor="NA" /> <code codeSystem="local" code= "CREAT" displayName="CREATININE" /> <statusCode code="completed" /> <effectiveTime value="834469733703" /> <value xsi:type="ST" value="<pre><b>METABOLIC PANEL, BASIC</b> 1362.233017174868.8> 60> 609.5</pre>" /> <referenceRange> <observationRange> <text> 0.6-1.0</text> </observationRange> </referenceRange> </observation> </component> <component> <observation moodCode= "EVN" classCode="OBS"> <templateId root="2.16.840.1.386783.10..22.4.2 " /> <id nullFlavor="NA" /> <code codeSystem="local" code="NA " displayName="SODIUM" /> <statusCode code="completed" /> < effectiveTime value="709490066308" /> <value xsi:type="ST" value="<pre> <b>METABOLIC PANEL, BASIC</b> 1362.227095627226.8> 60> 609.5</pre>" /> <referenceRange> <observationRange> <text>135-148</text > </observationRange> </referenceRange> </observation > </component> <component> <observation moodCode="EVN" classCode="OBS"> <templateId root="216.840.1.432383.10..22.4.2" /> <id nullFlavor="NA" /> <code codeSystem="local" code="CL" displayName="CHLORIDE" /> <statusCode code="completed" /> < effectiveTime value="415460673410" /> <value xsi:type="ST" value="<pre> <b>METABOLIC PANEL, BASIC</b> 1362.578030111548.8> 60> 609.5</pre>" /> <interpretationCode codeSystem="local" code="*" /> <referenceRange> <observationRange> <text>98-110</text> </ observationRange> </referenceRange> </observation> </ component> <component> <observation moodCode="EVN" classCode="OBS"> <templateId root="2.16.840.1.792712.10...4.2" /> <id nullFlavor="NA" /> <code codeSystem="local" code="CO2" displayName= "CARBON DIOXIDE" /> <statusCode code="completed" /> < effectiveTime value="159314770226" /> <value xsi:type="ST" value="<pre> <b>METABOLIC PANEL, BASIC</b> 1362.317061340825.8> 60> 609.5</pre>" /> <referenceRange> <observationRange> <text>21-32</text> </observationRange> </referenceRange> </observation> </component> <component> <observation moodCode="EVN" classCode ="OBS"> <templateId root="216.840.1.778077.10...4.2" /> < id nullFlavor="NA" /> <code codeSystem="local" code="MB" displayName= "Microbiology" /> <statusCode code="completed" /> < effectiveTime value="314207416546" /> <value xsi:type="ST" value="<pre> <b>METABOLIC PANEL, BASIC</b> 1362.575635729612.8> 60> 609.5</pre>" /> <referenceRange> <observationRange> <text /> </observationRange> </referenceRange> </observation> </ component> </organizer> </entry> <entry> <organizer moodCode="EVN" classCode="BATTERY"> <templateId root="216.840.1.904796..22.4.1" /> <id nullFlavor="NA" /> <code codeSystem="local" code="UA" displayName= "URINALYSIS, ROUTINE" /> <statusCode code="completed" /> <component> <observation moodCode="EVN" classCode="OBS"> <templateId root= "06.27.840.1.619333.02.28.22.4.2" /> <id nullFlavor="NA" /> < code codeSystem="local" code="LEUESU" displayName="UA LEUKOCYTE ESTERASE DIPSTICK" /> <statusCode code="completed" /> <effectiveTime value="952203475994" /> <value unit="" xsi:type="PQ" value="NEGATIVE" / > <referenceRange> <observationRange> <text> NEGATIVE</text> </observationRange> </referenceRange> </observation> </component> <component> <observation moodCode ="EVN" classCode="OBS"> <templateId root= "840.1.702581.02.28.224.2" /> <id nullFlavor="NA" /> < code codeSystem="local" code="NITRIU" displayName="UA NITRITE DIPSTICK" /> <statusCode code="completed" /> <effectiveTime value="740568829646 " /> <value unit="" xsi:type="PQ" value="NEGATIVE" /> < referenceRange> <observationRange> <text>NEGATIVE</text > </observationRange> </referenceRange> </observation > </component> <component> <observation moodCode="EVN" classCode="OBS"> <templateId root="06.27.840.1.977627.02.28.22.4.2" /> <id nullFlavor="NA" /> <code codeSystem="local" code="PROTEIU " displayName="UA PROTEIN DIPSTICK" /> <statusCode code="completed" /> <effectiveTime value="912460993873" /> <value unit="" xsi: type="PQ" value="NEGATIVE" /> <referenceRange> < observationRange> <text>NEGATIVE</text> </ observationRange> </referenceRange> </observation> </ component> <component> <observation moodCode="EVN" classCode="OBS"> <templateId root="216.840.1.495777.02.28.22.4.2" /> <id nullFlavor="NA" /> <code codeSystem="local" code="DGLUU" displayName= "UA GLUCOSE DIPSTICK" /> <statusCode code="completed" /> < effectiveTime value="076109034864" /> <value unit="" xsi:type="PQ" value="NEGATIVE" /> <referenceRange> <observationRange> <text>NEGATIVE</text> </observationRange> </ referenceRange> </observation> </component> <component> <observation moodCode="EVN" classCode="OBS"> <templateId root= "216.840.1.415004.02.28.22.4.2" /> <id nullFlavor="NA" /> < code codeSystem="local" code="KETONU" displayName="UA KETONE DIPSTICK" /> <statusCode code="completed" /> <effectiveTime value="153766945848 " /> <value unit="" xsi:type="PQ" value="2+" /> < interpretationCode codeSystem="local" code="*" /> <referenceRange> <observationRange> <text>NEGATIVE</text> </ observationRange> </referenceRange> </observation> </ component> <component> <observation moodCode="EVN" classCode="OBS"> <templateId root="216.840.1.893925.02.28.22.4.2" /> <id nullFlavor="NA" /> <code codeSystem="local" code="UROBILU" displayName= "UA UROBILINOGEN DIPSTICK" /> <statusCode code="completed" /> <effectiveTime value="003607545391" /> <value unit="" xsi:type="PQ" value="NORMAL" /> <referenceRange> <observationRange> <text>NORMAL</text> </observationRange> </ referenceRange> </observation> </component> <component> <observation moodCode="EVN" classCode="OBS"> <templateId root= "216.840.1.581081.10.4.2" /> <id nullFlavor="NA" /> < code codeSystem="local" code="BILU" displayName="UA BILIRUBIN DIPSTICK" /> <statusCode code="completed" /> <effectiveTime value="039080130612 " /> <value unit="" xsi:type="PQ" value="1+" /> < interpretationCode codeSystem="local" code="*" /> <referenceRange> <observationRange> <text>NEGATIVE</text> </ observationRange> </referenceRange> </observation> </ component> <component> <observation moodCode="EVN" classCode="OBS"> <templateId root="[id number]..4.2" /> <id nullFlavor="NA" /> <code codeSystem="local" code="NOLVIA" displayName="UA BLOOD DIPSTICK" /> <statusCode code="completed" /> < effectiveTime value="[id number]" /> <value unit="" xsi:type="PQ" value="TRACE" /> <interpretationCode codeSystem="local" code="*" /> <referenceRange> <observationRange> <text> NEGATIVE</text> </observationRange> </referenceRange> </observation> </component> <component> <observation moodCode ="EVN" classCode="OBS"> <templateId root= "[id number]" /> <id nullFlavor="NA" /> < code codeSystem="local" code="SPGRU" displayName="UA SPECIFIC GRAVITY" /> <statusCode code="completed" /> <effectiveTime value="[id number] " /> <value unit="" xsi:type="PQ" value="1.015" /> < referenceRange> <observationRange> <text>1.015-1.025</ text> </observationRange> </referenceRange> </ observation> </component> <component> <observation moodCode= "EVN" classCode="OBS"> <templateId root="[id number] " /> <id nullFlavor="NA" /> <code codeSystem="local" code="DIETER " displayName="UR PH" /> <statusCode code="completed" /> < effectiveTime value="982349843123" /> <value unit="" xsi:type="PQ" value="6.0" /> <referenceRange> <observationRange> <text>5.0-7.0</text> </observationRange> </ referenceRange> </observation> </component> <component> <observation moodCode="EVN" classCode="OBS"> <templateId root= "216.840.1.005381.02.28.22.4.2" /> <id nullFlavor="NA" /> < code codeSystem="local" code="MB" displayName="Microbiology" /> < statusCode code="completed" /> <effectiveTime value="584766601210" /> <value unit="" xsi:type="PQ" value="" /> <referenceRange> <observationRange> <text /> </observationRange> </referenceRange> </observation> </component> </ organizer> </entry> <entry> <organizer moodCode="EVN" classCode="BATTERY"> <templateId root="16.840.1.206194.10..22.4.1" /> <id nullFlavor= "NA" /> <code codeSystem="local" code="UAMICRO" displayName="UA MICROSCOPIC " /> <statusCode code="completed" /> <component> <observation moodCode="EVN" classCode="OBS"> <templateId root= "06.27.840.1.770222....4.2" /> <id nullFlavor="NA" /> < code codeSystem="local" code="BACU" displayName="UA BACTERIA" /> < statusCode code="completed" /> <effectiveTime value="096156351395" /> <value unit="" xsi:type="PQ" value="2+" /> < interpretationCode codeSystem="local" code="*" /> <referenceRange> <observationRange> <text>NEGATIVE</text> </ observationRange> </referenceRange> </observation> </ component> <component> <observation moodCode="EVN" classCode="OBS"> <templateId root="06.27.840.1.607381.02.28.22.4.2" /> <id nullFlavor="NA" /> <code codeSystem="local" code="EPIU" displayName=" UA EPITHELIAL CELLS" /> <statusCode code="completed" /> < effectiveTime value="038967311440" /> <value unit="epi/hpf" xsi:type= "PQ" value="2+" /> <interpretationCode codeSystem="local" code="*" /> <referenceRange> <observationRange> <text>0 - 1 +</text> </observationRange> </referenceRange> </ observation> </component> <component> <observation moodCode= "EVN" classCode="OBS"> <templateId root="06.27.840.1.158136.10.20.22.4.2 " /> <id nullFlavor="NA" /> <code codeSystem="local" code= "MUCUSU" displayName="UA MUCUS" /> <statusCode code="completed" /> <effectiveTime value="618045743380" /> <value unit="" xsi:type= "PQ" value="3+" /> <interpretationCode codeSystem="local" code="*" /> <referenceRange> <observationRange> <text>NEG TO 1+</text> </observationRange> </referenceRange> </ observation> </component> <component> <observation moodCode= "EVN" classCode="OBS"> <templateId root="840.1.801558...4.2 " /> <id nullFlavor="NA" /> <code codeSystem="local" code= "RBCU" displayName="UA RBC" /> <statusCode code="completed" /> <effectiveTime value="686085098454" /> <value unit="rbc/hpf" xsi:type ="PQ" value="0-3" /> <referenceRange> <observationRange> <text>0 - 3</text> </observationRange> </ referenceRange> </observation> </component> <component> <observation moodCode="EVN" classCode="OBS"> <templateId root= "06.27.840.1.247182.10.20.22.4.2" /> <id nullFlavor="NA" /> < code codeSystem="local" code="UAVOL" displayName="UA VOLUME FOR EXAM" /> <statusCode code="completed" /> <effectiveTime value="339725383490" /> <value unit="mL" xsi:type="PQ" value="12.0" /> < referenceRange> <observationRange> <text>(12mL STD)</ text> </observationRange> </referenceRange> </ observation> </component> <component> <observation moodCode= "EVN" classCode="OBS"> <templateId root="06.27.840.1.134810.02.28.22.4.2 " /> <id nullFlavor="NA" /> <code codeSystem="local" code= "WBCU" displayName="UA WBC" /> <statusCode code="completed" /> <effectiveTime value="762664927067" /> <value unit="wbc/hpf" xsi:type ="PQ" value="0-1" /> <referenceRange> <observationRange> <text>0 - 5</text> </observationRange> </ referenceRange> </observation> </component> </organizer> </entry > <entry> <organizer moodCode="EVN" classCode="BATTERY"> <templateId root="06.27.840.1.652889.02.28.22.4.1" /> <id nullFlavor="NA" /> <code codeSystem="local" code="PREGU" displayName="UR TEST" /> < statusCode code="completed" /> <component> <observation moodCode= "EVN" classCode="OBS"> <templateId root="06.27.840.1.812900.02.28.22.4.2 " /> <id nullFlavor="NA" /> <code codeSystem="local" code= "PREGU" displayName="UR TEST" /> <statusCode code="completed " /> <effectiveTime value="610213251301" /> <value xsi:type= "ST" value="<pre><b>UR TEST</b> NEGATIVE</pre>" /> < referenceRange> <observationRange> <text>NEGATIVE</text > </observationRange> </referenceRange> </observation > </component> <component> <observation moodCode="EVN" classCode="OBS"> <templateId root="16.840.1.486866.10..4.2" /> <id nullFlavor="NA" /> <code codeSystem="local" code="MB" displayName="Microbiology" /> <statusCode code="completed" /> <effectiveTime value="301649716532" /> <value xsi:type="ST" value="<pre ><b>UR TEST</b> NEGATIVE</pre>" /> <referenceRange> <observationRange> <text /> </observationRange> </referenceRange> </observation> </component> </organizer> </entry> <entry> <organizer moodCode="EVN" classCode="BATTERY"> < templateId root="06.27.840.1.393190...4.1" /> <id nullFlavor="NA" /> <code codeSystem="local" code="CBCD" displayName="CBC W/DIFF" /> < statusCode code="completed" /> <component> <observation moodCode= "EVN" classCode="OBS"> <templateId root="06.27.840.1.542928.10...4.2 " /> <id nullFlavor="NA" /> <code codeSystem="local" code="BA# " displayName="BASOPHIL #" /> <statusCode code="completed" /> <effectiveTime value="531301978598" /> <value unit="k/cumm" xsi:type= "PQ" value="0.0" /> <referenceRange> <observationRange> <text>0.0-0.2</text> </observationRange> </ referenceRange> </observation> </component> <component> <observation moodCode="EVN" classCode="OBS"> <templateId root= "216.840.1.451502.10..4.2" /> <id nullFlavor="NA" /> < code codeSystem="local" code="BA%" displayName="BASOPHIL %" /> <statusCode code="completed" /> <effectiveTime value="734549728418" /> <value unit="%" xsi:type="PQ" value="1" /> < referenceRange> <observationRange> <text>0-1</text> </observationRange> </referenceRange> </observation> </component> <component> <observation moodCode="EVN" classCode= "OBS"> <templateId root="06.27.840.1.995506.02.28.224.2" /> < id nullFlavor="NA" /> <code codeSystem="local" code="EO#" displayName= "EOSINOPHIL #" /> <statusCode code="completed" /> < effectiveTime value="873956391387" /> <value unit="k/cumm" xsi:type="PQ " value="0.1" /> <referenceRange> <observationRange> <text>0.1-0.5</text> </observationRange> </ referenceRange> </observation> </component> <component> <observation moodCode="EVN" classCode="OBS"> <templateId root= "16.840.1.306427.02.28.22.4.2" /> <id nullFlavor="NA" /> < code codeSystem="local" code="EO%" displayName="EOSINOPHIL %" /> <statusCode code="completed" /> <effectiveTime value="152408062969" /> <value unit="%" xsi:type="PQ" value="1" /> < interpretationCode codeSystem="local" code="*" /> <referenceRange> <observationRange> <text>2-4</text> </ observationRange> </referenceRange> </observation> </ component> <component> <observation moodCode="EVN" classCode="OBS"> <templateId root="16.840.1.019487.10..4.2" /> <id nullFlavor="NA" /> <code codeSystem="local" code="GR#" displayName= "GRANULOCYTE #" /> <statusCode code="completed" /> < effectiveTime value="757750109614" /> <value unit="k/cumm" xsi:type="PQ " value="3.0" /> <referenceRange> <observationRange> <text>2.0-9.0</text> </observationRange> </ referenceRange> </observation> </component> <component> <observation moodCode="EVN" classCode="OBS"> <templateId root= "16.840.1.576673.10...4.2" /> <id nullFlavor="NA" /> < code codeSystem="local" code="GR%" displayName="GRANULOCYTE %" /> <statusCode code="completed" /> <effectiveTime value="201498005358 " /> <value unit="%" xsi:type="PQ" value="57" /> < referenceRange> <observationRange> <text>50-75</text> </observationRange> </referenceRange> </observation> </component> <component> <observation moodCode="EVN" classCode= "OBS"> <templateId root="16.840.1.564178.10.4.2" /> < id nullFlavor="NA" /> <code codeSystem="local" code="LY#" displayName= "LYMPHOCYTE #" /> <statusCode code="completed" /> < effectiveTime value="564751126126" /> <value unit="k/cumm" xsi:type="PQ " value="1.8" /> <referenceRange> <observationRange> <text>1.0-4.0</text> </observationRange> </ referenceRange> </observation> </component> <component> <observation moodCode="EVN" classCode="OBS"> <templateId root= "06.27.840.1.624993.02.28.224.2" /> <id nullFlavor="NA" /> < code codeSystem="local" code="LY%" displayName="LYMPHOCYTE %" /> <statusCode code="completed" /> <effectiveTime value="549255317544" /> <value unit="%" xsi:type="PQ" value="34" /> < interpretationCode codeSystem="local" code="*" /> <referenceRange> <observationRange> <text>20-30</text> </ observationRange> </referenceRange> </observation> </ component> <component> <observation moodCode="EVN" classCode="OBS"> <templateId root="06.27.840.1.520000.10..4.2" /> <id nullFlavor="NA" /> <code codeSystem="local" code="MCH" displayName= "MEAN CELL HGB" /> <statusCode code="completed" /> < effectiveTime value="972825697344" /> <value unit="pg" xsi:type="PQ" value="20.4" /> <interpretationCode codeSystem="local" code="*" /> <referenceRange> <observationRange> <text>27.0- 33.0</text> </observationRange> </referenceRange> </ observation> </component> <component> <observation moodCode= "EVN" classCode="OBS"> <templateId root="06.27.840.1.779274.10.20.22.4.2 " /> <id nullFlavor="NA" /> <code codeSystem="local" code= "MCHC" displayName="MEAN CELL HGB CONCENTRATION" /> <statusCode code= "completed" /> <effectiveTime value="168192657776" /> <value unit="g/dL" xsi:type="PQ" value="30.3" /> <interpretationCode codeSystem="local" code="*" /> <referenceRange> < observationRange> <text>32.0-37.0</text> </ observationRange> </referenceRange> </observation> </ component> <component> <observation moodCode="EVN" classCode="OBS"> <templateId root="06.27.840.1.182299.10.4.2" /> <id nullFlavor="NA" /> <code codeSystem="local" code="MCV" displayName= "MEAN CELL VOLUME" /> <statusCode code="completed" /> < effectiveTime value="082229613160" /> <value unit="fl" xsi:type="PQ" value="67.4" /> <interpretationCode codeSystem="local" code="*" /> <referenceRange> <observationRange> <text>80.0- 100.0</text> </observationRange> </referenceRange> </ observation> </component> <component> <observation moodCode= "EVN" classCode="OBS"> <templateId root="06.27.840.1.053004.10.2022.4.2 " /> <id nullFlavor="NA" /> <code codeSystem="local" code="MO# " displayName="MONOCYTE #" /> <statusCode code="completed" /> <effectiveTime value="615745211099" /> <value unit="k/cumm" xsi:type= "PQ" value="0.4" /> <referenceRange> <observationRange> <text>0.1-1.0</text> </observationRange> </ referenceRange> </observation> </component> <component> <observation moodCode="EVN" classCode="OBS"> <templateId root= "2.16.840.1.809263.10..4.2" /> <id nullFlavor="NA" /> < code codeSystem="local" code="MO%" displayName="MONOCYTE %" /> <statusCode code="completed" /> <effectiveTime value="041757233693" /> <value unit="%" xsi:type="PQ" value="7" /> < interpretationCode codeSystem="local" code="*" /> <referenceRange> <observationRange> <text>4-6</text> </ observationRange> </referenceRange> </observation> </ component> <component> <observation moodCode="EVN" classCode="OBS"> <templateId root="216.840.1.605393.10..4.2" /> <id nullFlavor="NA" /> <code codeSystem="local" code="OVAL" displayName= "OVALOCYTES" /> <statusCode code="completed" /> < effectiveTime value="794299776337" /> <value unit="" xsi:type="PQ" value="NOTED" /> <referenceRange> <observationRange> <text /> </observationRange> </referenceRange> </observation> </component> <component> <observation moodCode ="EVN" classCode="OBS"> <templateId root= "216.840.1.451003.10...4.2" /> <id nullFlavor="NA" /> < code codeSystem="local" code="RBC" displayName="RED BLOOD CELL" /> < statusCode code="completed" /> <effectiveTime value="212285857778" /> <value unit="m/cumm" xsi:type="PQ" value="3.77" /> < interpretationCode codeSystem="local" code="*" /> <referenceRange> <observationRange> <text>4.00-6.00</text> </ observationRange> </referenceRange> </observation> </ component> <component> <observation moodCode="EVN" classCode="OBS"> <templateId root="16.840.1.073243.02.28.22.4.2" /> <id nullFlavor="NA" /> <code codeSystem="local" code="RDW" displayName=" RED CELL DISTRIBUTION WIDTH" /> <statusCode code="completed" /> <effectiveTime value="654480202540" /> <value unit="%" xsi:type= "PQ" value="22.0" /> <interpretationCode codeSystem="local" code="*" / > <referenceRange> <observationRange> <text> 11.0-15.6</text> </observationRange> </referenceRange> </observation> </component> <component> <observation moodCode="EVN" classCode="OBS"> <templateId root= "16.840.1.538598.10.4.2" /> <id nullFlavor="NA" /> < code codeSystem="local" code="WBC" displayName="WHITE BLOOD CELL" /> < statusCode code="completed" /> <effectiveTime value="722607992692" /> <value unit="k/cumm" xsi:type="PQ" value="5.3" /> < referenceRange> <observationRange> <text>5.0-10.0</text > </observationRange> </referenceRange> </observation > </component> <component> <observation moodCode="EVN" classCode="OBS"> <templateId root="216.840.1.301397.22.4.2" /> <id nullFlavor="NA" /> <code codeSystem="local" code="HGBT" displayName="HEMOGLOBIN" /> <statusCode code="completed" /> < effectiveTime value="668306941984" /> <value unit="gm/dL" xsi:type="PQ " value="7.7" /> <interpretationCode codeSystem="local" code="*" /> <referenceRange> <observationRange> <text>12.0- 16.0</text> </observationRange> </referenceRange> </ observation> </component> <component> <observation moodCode= "EVN" classCode="OBS"> <templateId root="16.840.1.862812.02.28.22.4.2 " /> <id nullFlavor="NA" /> <code codeSystem="local" code= "HCTT" displayName="HEMATOCRIT" /> <statusCode code="completed" /> <effectiveTime value="690655745605" /> <value unit="%" xsi: type="PQ" value="25.4" /> <interpretationCode codeSystem="local" code= "*" /> <referenceRange> <observationRange> < text>37.0-47.0</text> </observationRange> </referenceRange> </observation> </component> <component> <observation moodCode="EVN" classCode="OBS"> <templateId root= "06.27.840.1.954558.1022.4.2" /> <id nullFlavor="NA" /> < code codeSystem="local" code="PLT" displayName="PLATELET COUNT" /> < statusCode code="completed" /> <effectiveTime value="699879406443" /> <value unit="k/cumm" xsi:type="PQ" value="284" /> < referenceRange> <observationRange> <text>150-400</text> </observationRange> </referenceRange> </observation > </component> <component> <observation moodCode="EVN" classCode="OBS"> <templateId root="840.1.179907.02.28.22.4.2" /> <id nullFlavor="NA" /> <code codeSystem="local" code="MB" displayName="Microbiology" /> <statusCode code="completed" /> <effectiveTime value="378185603884" /> <value unit="" xsi:type="PQ" value="" /> <referenceRange> <observationRange> <text /> </observationRange> </referenceRange> </ observation> </component> </organizer> </entry> <entry> <organizer moodCode="EVN" classCode="BATTERY"> <templateId root= "840.1.567314.02.28.22.4.1" /> <id nullFlavor="NA" /> <code codeSystem="local" code="PREG" displayName=" TEST, SERUM" /> < statusCode code="completed" /> <component> <observation moodCode= "EVN" classCode="OBS"> <templateId root="06.27.840.1.629861.22.4.2 " /> <id nullFlavor="NA" /> <code codeSystem="local" code= "PREG" displayName=" TEST, SERUM" /> <statusCode code= "completed" /> <effectiveTime value="283438813805" /> <value xsi:type="ST" value="<pre><b> TEST, SERUM</b> NEGATIVE</pre>" /> <referenceRange> <observationRange> <text>NEGATIVE</ text> </observationRange> </referenceRange> </ observation> </component> <component> <observation moodCode= "EVN" classCode="OBS"> <templateId root="840.1.522208.10.4.2 " /> <id nullFlavor="NA" /> <code codeSystem="local" code="MB " displayName="Microbiology" /> <statusCode code="completed" /> <effectiveTime value="472984801459" /> <value xsi:type="ST" value="< pre><b> TEST, SERUM</b> NEGATIVE</pre>" /> <referenceRange> <observationRange> <text /> </observationRange > </referenceRange> </observation> </component> </ organizer> </entry> <entry> <organizer moodCode="EVN" classCode="BATTERY"> <templateId root="840.1.319797.02.28.22.4.1" /> <id nullFlavor= "NA" /> <code codeSystem="local" code="METABC" displayName="METABOLIC PANEL , COMPREHN" /> <statusCode code="completed" /> <component> < observation moodCode="EVN" classCode="OBS"> <templateId root= "840.1.011798.02.28.22.4.2" /> <id nullFlavor="NA" /> < code codeSystem="local" code="K" displayName="POTASSIUM" /> < statusCode code="completed" /> <effectiveTime value="285042141695" /> <value unit="mmol/L" xsi:type="PQ" value="3.5" /> < referenceRange> <observationRange> <text>3.5-5.3</text> </observationRange> </referenceRange> </observation > </component> <component> <observation moodCode="EVN" classCode="OBS"> <templateId root="16.840.1.487551.10.22.4.2" /> <id nullFlavor="NA" /> <code codeSystem="local" code="eGFR" displayName="EST GFR (MDRD)" /> <statusCode code="completed" /> <effectiveTime value="682687554384" /> <value unit="mL/min" xsi:type ="PQ" value="> 60" /> <referenceRange> <observationRange > <text>> 59</text> </observationRange> </ referenceRange> </observation> </component> <component> <observation moodCode="EVN" classCode="OBS"> <templateId root= "06.27.840.1.782296.10..4.2" /> <id nullFlavor="NA" /> < code codeSystem="local" code="GAP" displayName="ANION GAP" /> < statusCode code="completed" /> <effectiveTime value="502253042526" /> <value unit="mmol/L" xsi:type="PQ" value="8" /> < referenceRange> <observationRange> <text>5-15</text> </observationRange> </referenceRange> </observation> </component> <component> <observation moodCode="EVN" classCode= "OBS"> <templateId root="16.840.1.281835.10.20.22.4.2" /> < id nullFlavor="NA" /> <code codeSystem="local" code="eCrCl" displayName ="EST CrCl (CG)" /> <statusCode code="completed" /> < effectiveTime value="534643789329" /> <value unit="mL/min" xsi:type="PQ " value="> 60" /> <referenceRange> <observationRange> <text>> 59</text> </observationRange> </ referenceRange> </observation> </component> <component> <observation moodCode="EVN" classCode="OBS"> <templateId root= "216.840.1.245198.10.20.22.4.2" /> <id nullFlavor="NA" /> < code codeSystem="local" code="GLU" displayName="GLUCOSE" /> < statusCode code="completed" /> <effectiveTime value="314508637019" /> <value unit="mg/dL" xsi:type="PQ" value="79" /> < referenceRange> <observationRange> <text>70-99</text> </observationRange> </referenceRange> </observation> </component> <component> <observation moodCode="EVN" classCode= "OBS"> <templateId root="16.840.1.012106.10.20.22.4.2" /> < id nullFlavor="NA" /> <code codeSystem="local" code="CA" displayName= "CALCIUM" /> <statusCode code="completed" /> <effectiveTime value="411237928037" /> <value unit="mg/dL" xsi:type="PQ" value="8.6" / > <referenceRange> <observationRange> <text>8.5 -10.1</text> </observationRange> </referenceRange> </ observation> </component> <component> <observation moodCode= "EVN" classCode="OBS"> <templateId root="2.16.840.1.166247.10..22.4.2 " /> <id nullFlavor="NA" /> <code codeSystem="local" code="BUN " displayName="BLOOD UREA NITROGEN" /> <statusCode code="completed" /> <effectiveTime value="240858998245" /> <value unit="mg/dL" xsi:type="PQ" value="9" /> <referenceRange> < observationRange> <text>7-20</text> </observationRange> </referenceRange> </observation> </component> < component> <observation moodCode="EVN" classCode="OBS"> < templateId root="216.840.1.261232.10..22.4.2" /> <id nullFlavor="NA " /> <code codeSystem="local" code="CREAT" displayName="CREATININE" /> <statusCode code="completed" /> <effectiveTime value= "778977529322" /> <value unit="mg/dL" xsi:type="PQ" value="0.6" /> <referenceRange> <observationRange> <text>0.6-1.0< /text> </observationRange> </referenceRange> </ observation> </component> <component> <observation moodCode= "EVN" classCode="OBS"> <templateId root="216.840.1.427421.10..22.4.2 " /> <id nullFlavor="NA" /> <code codeSystem="local" code="NA " displayName="SODIUM" /> <statusCode code="completed" /> < effectiveTime value="530523944175" /> <value unit="mmol/L" xsi:type="PQ " value="139" /> <referenceRange> <observationRange> <text>135-148</text> </observationRange> </ referenceRange> </observation> </component> <component> <observation moodCode="EVN" classCode="OBS"> <templateId root= "216.840.1.687670.10..22.4.2" /> <id nullFlavor="NA" /> < code codeSystem="local" code="CL" displayName="CHLORIDE" /> < statusCode code="completed" /> <effectiveTime value="695765721565" /> <value unit="mmol/L" xsi:type="PQ" value="101" /> < referenceRange> <observationRange> <text>98-110</text> </observationRange> </referenceRange> </observation> </component> <component> <observation moodCode="EVN" classCode ="OBS"> <templateId root="216.840.1.109631.10...4.2" /> < id nullFlavor="NA" /> <code codeSystem="local" code="AST" displayName= "AST/SGOT" /> <statusCode code="completed" /> <effectiveTime value="029976067560" /> <value unit="Units/L" xsi:type="PQ" value="38" /> <interpretationCode codeSystem="local" code="*" /> < referenceRange> <observationRange> <text>10-37</text> </observationRange> </referenceRange> </observation> </component> <component> <observation moodCode="EVN" classCode= "OBS"> <templateId root="216.840.1.394524.10...4.2" /> < id nullFlavor="NA" /> <code codeSystem="local" code="ALT" displayName= "ALT/SGPT" /> <statusCode code="completed" /> <effectiveTime value="164480574563" /> <value unit="Units/L" xsi:type="PQ" value="67" /> <interpretationCode codeSystem="local" code="*" /> < referenceRange> <observationRange> <text>< 66</text> </observationRange> </referenceRange> </observation > </component> <component> <observation moodCode="EVN" classCode="OBS"> <templateId root="06.27.840.1.410264.10.22.4.2" /> <id nullFlavor="NA" /> <code codeSystem="local" code="CO2" displayName="CARBON DIOXIDE" /> <statusCode code="completed" /> <effectiveTime value="148652339921" /> <value unit="mmol/L" xsi:type ="PQ" value="30" /> <referenceRange> <observationRange> <text>21-32</text> </observationRange> </ referenceRange> </observation> </component> <component> <observation moodCode="EVN" classCode="OBS"> <templateId root= "840.1.451564.02.28.22.4.2" /> <id nullFlavor="NA" /> < code codeSystem="local" code="TP" displayName="TOTAL PROTEIN" /> < statusCode code="completed" /> <effectiveTime value="957381089586" /> <value unit="gm/dL" xsi:type="PQ" value="6.7" /> < referenceRange> <observationRange> <text>6.4-8.2</text> </observationRange> </referenceRange> </observation > </component> <component> <observation moodCode="EVN" classCode="OBS"> <templateId root="06.27.840.1.406330.10.2022.4.2" /> <id nullFlavor="NA" /> <code codeSystem="local" code="ALB" displayName="ALBUMIN" /> <statusCode code="completed" /> < effectiveTime value="487643060489" /> <value unit="gm/dL" xsi:type="PQ " value="2.9" /> <interpretationCode codeSystem="local" code="*" /> <referenceRange> <observationRange> <text>3.4-5.0 </text> </observationRange> </referenceRange> </ observation> </component> <component> <observation moodCode= "EVN" classCode="OBS"> <templateId root="2.16.840.1.799705.10..22.4.2 " /> <id nullFlavor="NA" /> <code codeSystem="local" code= "BILTOT" displayName="BILI TOTAL" /> <statusCode code="completed" /> <effectiveTime value="298994979971" /> <value unit="mg/dL" xsi: type="PQ" value="0.3" /> <referenceRange> <observationRange > <text>0.0-1.0</text> </observationRange> </ referenceRange> </observation> </component> <component> <observation moodCode="EVN" classCode="OBS"> <templateId root= "2.16.840.1.527777.10..22.4.2" /> <id nullFlavor="NA" /> < code codeSystem="local" code="ALKP" displayName="ALKALINE PHOSPHATASE TOTAL" /> <statusCode code="completed" /> <effectiveTime value= "757861754393" /> <value unit="IU/L" xsi:type="PQ" value="149" /> <interpretationCode codeSystem="local" code="*" /> <referenceRange > <observationRange> <text>45-117</text> </ observationRange> </referenceRange> </observation> </ component> <component> <observation moodCode="EVN" classCode="OBS"> <templateId root="16.840.1.249290.02.28..4.2" /> <id nullFlavor="NA" /> <code codeSystem="local" code="MB" displayName= "Microbiology" /> <statusCode code="completed" /> < effectiveTime value="960892588698" /> <value unit="" xsi:type="PQ" value="" /> <referenceRange> <observationRange> <text /> </observationRange> </referenceRange> </ observation> </component> </organizer> </entry> <entry> <organizer moodCode="EVN" classCode="BATTERY"> <templateId root= "216.840.1.929420...22.4.1" /> <id nullFlavor="NA" /> <code codeSystem="local" code="MAG" displayName="MAGNESIUM" /> <statusCode code= "completed" /> <component> <observation moodCode="EVN" classCode= "OBS"> <templateId root="216.840.1.728307.02.28.22.4.2" /> < id nullFlavor="NA" /> <code codeSystem="local" code="MAG" displayName= "MAGNESIUM" /> <statusCode code="completed" /> <effectiveTime value="322991094713" /> <value unit="mg/dL" xsi:type="PQ" value="1.8" / > <referenceRange> <observationRange> <text>1.8 -2.4</text> </observationRange> </referenceRange> </ observation> </component> </organizer> </entry> <entry> <organizer moodCode="EVN" classCode="BATTERY"> <templateId root= "16.840.1.253889.22.4.1" /> <id nullFlavor="NA" /> <code codeSystem="local" code="LIP" displayName="LIPASE" /> <statusCode code= "completed" /> <component> <observation moodCode="EVN" classCode= "OBS"> <templateId root="16.840.1.410411.10...4.2" /> < id nullFlavor="NA" /> <code codeSystem="local" code="LIP" displayName= "LIPASE" /> <statusCode code="completed" /> <effectiveTime value="613837712981" /> <value unit="Units/L" xsi:type="PQ" value="123 " /> <referenceRange> <observationRange> <text> 73-393</text> </observationRange> </referenceRange> < /observation> </component> </organizer> </entry> <entry> < organizer moodCode="EVN" classCode="BATTERY"> <templateId root= "06.27.840.1.929745.10...4.1" /> <id nullFlavor="NA" /> <code codeSystem="local" code="iCHEM8" displayName="CHEM/HEM PROFILE-BEDSIDE" /> <statusCode code="completed" /> <component> <observation moodCode= "EVN" classCode="OBS"> <templateId root="06.27.840.1.107927.10..22.4.2 " /> <id nullFlavor="NA" /> <code codeSystem="local" code="K" displayName="POTASSIUM" /> <statusCode code="completed" /> < effectiveTime value="387267393282" /> <value unit="mmol/L" xsi:type="PQ " value="3.4" /> <interpretationCode codeSystem="local" code="*" /> <referenceRange> <observationRange> <text>3.5-5.3 </text> </observationRange> </referenceRange> </ observation> </component> <component> <observation moodCode= "EVN" classCode="OBS"> <templateId root="16.840.1.892918.10.2022.4.2 " /> <id nullFlavor="NA" /> <code codeSystem="local" code= "CMETHOD" displayName="METHOD" /> <statusCode code="completed" /> <effectiveTime value="548128418595" /> <value unit="" xsi:type="PQ " value="Bedside" /> <referenceRange> <observationRange> <text /> </observationRange> </referenceRange> </observation> </component> <component> <observation moodCode="EVN" classCode="OBS"> <templateId root= "06.27.840.1.092068.22.4.2" /> <id nullFlavor="NA" /> < code codeSystem="local" code="GAP" displayName="ANION GAP" /> < statusCode code="completed" /> <effectiveTime value="792838323711" /> <value unit="mmol/L" xsi:type="PQ" value="17" /> < referenceRange> <observationRange> <text>10-20</text> </observationRange> </referenceRange> </observation> </component> <component> <observation moodCode="EVN" classCode= "OBS"> <templateId root="06.27.840.1.420934.1022.4.2" /> < id nullFlavor="NA" /> <code codeSystem="local" code="HMETHOD" displayName="METHOD" /> <statusCode code="completed" /> < effectiveTime value="378809666079" /> <value unit="" xsi:type="PQ" value="Bedside" /> <referenceRange> <observationRange> <text /> </observationRange> </referenceRange> </observation> </component> <component> <observation moodCode="EVN" classCode="OBS"> <templateId root= "16.840.1.790983.10.20.22.4.2" /> <id nullFlavor="NA" /> < code codeSystem="local" code="GLU" displayName="GLUCOSE" /> < statusCode code="completed" /> <effectiveTime value="337651901270" /> <value unit="mg/dL" xsi:type="PQ" value="77" /> < referenceRange> <observationRange> <text>70-99</text> </observationRange> </referenceRange> </observation> </component> <component> <observation moodCode="EVN" classCode= "OBS"> <templateId root="06.27.840.1.939874.10..22.4.2" /> < id nullFlavor="NA" /> <code codeSystem="local" code="BUN" displayName= "BLOOD UREA NITROGEN" /> <statusCode code="completed" /> < effectiveTime value="479797110484" /> <value unit="mg/dL" xsi:type="PQ " value="5" /> <interpretationCode codeSystem="local" code="*" /> <referenceRange> <observationRange> <text>7-20</ text> </observationRange> </referenceRange> </ observation> </component> <component> <observation moodCode= "EVN" classCode="OBS"> <templateId root="06.27.840.1.310208.10.20.22.4.2 " /> <id nullFlavor="NA" /> <code codeSystem="local" code= "CREAT" displayName="CREATININE" /> <statusCode code="completed" /> <effectiveTime value="783719573850" /> <value unit="mg/dL" xsi: type="PQ" value="0.6" /> <referenceRange> <observationRange > <text>0.6-1.0</text> </observationRange> </ referenceRange> </observation> </component> <component> <observation moodCode="EVN" classCode="OBS"> <templateId root= "216.840.1.268021.10.20.22.4.2" /> <id nullFlavor="NA" /> < code codeSystem="local" code="HGBT" displayName="HEMOGLOBIN" /> < statusCode code="completed" /> <effectiveTime value="528066510165" /> <value unit="gm/dL" xsi:type="PQ" value="8.5" /> < interpretationCode codeSystem="local" code="*" /> <referenceRange> <observationRange> <text>12.0-16.0</text> </ observationRange> </referenceRange> </observation> </ component> <component> <observation moodCode="EVN" classCode="OBS"> <templateId root="216.840.1.638952.10.20.22.4.2" /> <id nullFlavor="NA" /> <code codeSystem="local" code="HCTT" displayName= "HEMATOCRIT" /> <statusCode code="completed" /> < effectiveTime value="929052242785" /> <value unit="%" xsi:type="PQ " value="25.0" /> <interpretationCode codeSystem="local" code="*" /> <referenceRange> <observationRange> <text>37.0- 47.0</text> </observationRange> </referenceRange> </ observation> </component> <component> <observation moodCode= "EVN" classCode="OBS"> <templateId root="216.840.1.036057.10.20.22.4.2 " /> <id nullFlavor="NA" /> <code codeSystem="local" code="NA " displayName="SODIUM" /> <statusCode code="completed" /> < effectiveTime value="972801161968" /> <value unit="mmol/L" xsi:type="PQ " value="138" /> <referenceRange> <observationRange> <text>135-148</text> </observationRange> </ referenceRange> </observation> </component> <component> <observation moodCode="EVN" classCode="OBS"> <templateId root= "216.840.1.143408.10..22.4.2" /> <id nullFlavor="NA" /> < code codeSystem="local" code="CL" displayName="CHLORIDE" /> < statusCode code="completed" /> <effectiveTime value="316537950891" /> <value unit="mmol/L" xsi:type="PQ" value="100" /> < referenceRange> <observationRange> <text>98-110</text> </observationRange> </referenceRange> </observation> </component> <component> <observation moodCode="EVN" classCode ="OBS"> <templateId root="216.840.1.479253.10.20.22.4.2" /> < id nullFlavor="NA" /> <code codeSystem="local" code="CO2" displayName= "CARBON DIOXIDE" /> <statusCode code="completed" /> < effectiveTime value="817589544789" /> <value unit="mmol/L" xsi:type="PQ " value="25" /> <referenceRange> <observationRange> <text>21-32</text> </observationRange> </ referenceRange> </observation> </component> <component> <observation moodCode="EVN" classCode="OBS"> <templateId root= "16.840.1.863296.02.28.22.4.2" /> <id nullFlavor="NA" /> < code codeSystem="local" code="CAION" displayName="CALCIUM IONIZED" /> < statusCode code="completed" /> <effectiveTime value="372993883721" /> <value unit="mg/dL" xsi:type="PQ" value="4.7" /> < referenceRange> <observationRange> <text>4.5-5.3</text> </observationRange> </referenceRange> </observation > </component> <component> <observation moodCode="EVN" classCode="OBS"> <templateId root="06.27.840.1.132369.02.28.22.4.2" /> <id nullFlavor="NA" /> <code codeSystem="local" code="MB" displayName="Microbiology" /> <statusCode code="completed" /> <effectiveTime value="704109687732" /> <value unit="" xsi:type="PQ" value="" /> <referenceRange> <observationRange> <text /> </observationRange> </referenceRange> </ observation> </component> </organizer> </entry> <entry> <organizer moodCode="EVN" classCode="BATTERY"> <templateId root= "06.27.840.1.926646.02.28.22.4.1" /> <id nullFlavor="NA" /> <code codeSystem="local" code="UANRC" displayName="URINALYSIS, NO REFLEX CULTURE" /> <statusCode code="completed" /> <component> <observation moodCode="EVN" classCode="OBS"> <templateId root= "06.27.840.1.893647.02.28.22.4.2" /> <id nullFlavor="NA" /> < code codeSystem="local" code="LEUESU" displayName="UA LEUKOCYTE ESTERASE DIPSTICK" /> <statusCode code="completed" /> <effectiveTime value="" /> <value unit="" xsi:type="PQ" value="2+" /> <interpretationCode codeSystem="local" code="*" /> < referenceRange> <observationRange> <text>NEGATIVE</text > </observationRange> </referenceRange> </observation > </component> <component> <observation moodCode="EVN" classCode="OBS"> <templateId root="06.27.840.1.650060.02.28.22.4.2" /> <id nullFlavor="NA" /> <code codeSystem="local" code="NITRIU" displayName="UA NITRITE DIPSTICK" /> <statusCode code="completed" /> <effectiveTime value="" /> <value unit="" xsi:type= "PQ" value="NEGATIVE" /> <referenceRange> <observationRange > <text>NEGATIVE</text> </observationRange> </ referenceRange> </observation> </component> <component> <observation moodCode="EVN" classCode="OBS"> <templateId root= "06.27.840.1.843993.10.4.2" /> <id nullFlavor="NA" /> < code codeSystem="local" code="PROTEIU" displayName="UA PROTEIN DIPSTICK" /> <statusCode code="completed" /> <effectiveTime value= "" /> <value unit="" xsi:type="PQ" value="1+" /> < interpretationCode codeSystem="local" code="*" /> <referenceRange> <observationRange> <text>NEGATIVE</text> </ observationRange> </referenceRange> </observation> </ component> <component> <observation moodCode="EVN" classCode="OBS"> <templateId root="216.840.1.743285.02.28.22.4.2" /> <id nullFlavor="NA" /> <code codeSystem="local" code="DGLUU" displayName= "UA GLUCOSE DIPSTICK" /> <statusCode code="completed" /> < effectiveTime value="" /> <value unit="" xsi:type="PQ" value="NEGATIVE" /> <referenceRange> <observationRange> <text>NEGATIVE</text> </observationRange> </ referenceRange> </observation> </component> <component> <observation moodCode="EVN" classCode="OBS"> <templateId root= "06.27.840.1.705233.02.28.22.4.2" /> <id nullFlavor="NA" /> < code codeSystem="local" code="KETONU" displayName="UA KETONE DIPSTICK" /> <statusCode code="completed" /> <effectiveTime value=" " /> <value unit="" xsi:type="PQ" value="NEGATIVE" /> < referenceRange> <observationRange> <text>NEGATIVE</text > </observationRange> </referenceRange> </observation > </component> <component> <observation moodCode="EVN" classCode="OBS"> <templateId root="06.27.840.1.205356.02.28.22.4.2" /> <id nullFlavor="NA" /> <code codeSystem="local" code="UROBILU " displayName="UA UROBILINOGEN DIPSTICK" /> <statusCode code="completed " /> <effectiveTime value="" /> <value unit="" xsi :type="PQ" value="NORMAL" /> <referenceRange> < observationRange> <text>NORMAL</text> </observationRange > </referenceRange> </observation> </component> < component> <observation moodCode="EVN" classCode="OBS"> < templateId root="16.840.1.622504.10..22.4.2" /> <id nullFlavor="NA " /> <code codeSystem="local" code="BILU" displayName="UA BILIRUBIN DIPSTICK" /> <statusCode code="completed" /> <effectiveTime value="184698319190" /> <value unit="" xsi:type="PQ" value="NEGATIVE" / > <referenceRange> <observationRange> <text> NEGATIVE</text> </observationRange> </referenceRange> </observation> </component> <component> <observation moodCode ="EVN" classCode="OBS"> <templateId root= "06.27.840.1.174519.10...4.2" /> <id nullFlavor="NA" /> < code codeSystem="local" code="NOLVIA" displayName="UA BLOOD DIPSTICK" /> < statusCode code="completed" /> <effectiveTime value="679692532282" /> <value unit="" xsi:type="PQ" value="1+" /> < interpretationCode codeSystem="local" code="*" /> <referenceRange> <observationRange> <text>NEGATIVE</text> </ observationRange> </referenceRange> </observation> </ component> <component> <observation moodCode="EVN" classCode="OBS"> <templateId root="06.27.840.1.496976.10.20.22.4.2" /> <id nullFlavor="NA" /> <code codeSystem="local" code="SPGRU" displayName= "UA SPECIFIC GRAVITY" /> <statusCode code="completed" /> < effectiveTime value="148640555888" /> <value unit="" xsi:type="PQ" value="1.010" /> <interpretationCode codeSystem="local" code="*" /> <referenceRange> <observationRange> <text>1.015- 1.025</text> </observationRange> </referenceRange> </ observation> </component> <component> <observation moodCode= "EVN" classCode="OBS"> <templateId root="16.840.1.184614...4.2 " /> <id nullFlavor="NA" /> <code codeSystem="local" code="DIETER " displayName="UR PH" /> <statusCode code="completed" /> < effectiveTime value="823855374863" /> <value unit="" xsi:type="PQ" value="8.0" /> <interpretationCode codeSystem="local" code="*" /> <referenceRange> <observationRange> <text>5.0-7.0</ text> </observationRange> </referenceRange> </ observation> </component> </organizer> </entry> <entry> <organizer moodCode="EVN" classCode="BATTERY"> <templateId root= "840.1.633892.22.4.1" /> <id nullFlavor="NA" /> <code codeSystem="local" code="UAMICRO" displayName="UA MICROSCOPIC" /> < statusCode code="completed" /> <component> <observation moodCode= "EVN" classCode="OBS"> <templateId root="06.27.840.1.091026.102022.4.2 " /> <id nullFlavor="NA" /> <code codeSystem="local" code= "BACU" displayName="UA BACTERIA" /> <statusCode code="completed" /> <effectiveTime value="159206501317" /> <value unit="" xsi:type= "PQ" value="2+" /> <interpretationCode codeSystem="local" code="*" /> <referenceRange> <observationRange> <text> NEGATIVE</text> </observationRange> </referenceRange> </observation> </component> <component> <observation moodCode ="EVN" classCode="OBS"> <templateId root= "216.840.1.094903.10..22.4.2" /> <id nullFlavor="NA" /> < code codeSystem="local" code="EPIU" displayName="UA EPITHELIAL CELLS" /> <statusCode code="completed" /> <effectiveTime value="307596708703" /> <value unit="epi/hpf" xsi:type="PQ" value="1+" /> < referenceRange> <observationRange> <text>0 - 1+</text> </observationRange> </referenceRange> </observation> </component> <component> <observation moodCode="EVN" classCode ="OBS"> <templateId root="16.840.1.085908.10..22.4.2" /> < id nullFlavor="NA" /> <code codeSystem="local" code="MUCUSU" displayName="UA MUCUS" /> <statusCode code="completed" /> < effectiveTime value="768543831113" /> <value unit="" xsi:type="PQ" value="2+" /> <interpretationCode codeSystem="local" code="*" /> <referenceRange> <observationRange> <text>NEG TO 1+< /text> </observationRange> </referenceRange> </ observation> </component> <component> <observation moodCode= "EVN" classCode="OBS"> <templateId root="216.840.1.804462.10..22.4.2 " /> <id nullFlavor="NA" /> <code codeSystem="local" code= "RBCU" displayName="UA RBC" /> <statusCode code="completed" /> <effectiveTime value="" /> <value unit="rbc/hpf" xsi:type ="PQ" value="0-3" /> <referenceRange> <observationRange> <text>0 - 3</text> </observationRange> </ referenceRange> </observation> </component> <component> <observation moodCode="EVN" classCode="OBS"> <templateId root= "16.840.1.137867...4.2" /> <id nullFlavor="NA" /> < code codeSystem="local" code="UAVOL" displayName="UA VOLUME FOR EXAM" /> <statusCode code="completed" /> <effectiveTime value="" /> <value unit="mL" xsi:type="PQ" value="12.0" /> < referenceRange> <observationRange> <text>(12mL STD)</ text> </observationRange> </referenceRange> </ observation> </component> <component> <observation moodCode= "EVN" classCode="OBS"> <templateId root="16.840.1.869739.10..22.4.2 " /> <id nullFlavor="NA" /> <code codeSystem="local" code= "WBCU" displayName="UA WBC" /> <statusCode code="completed" /> <effectiveTime value="895675712673" /> <value unit="wbc/hpf" xsi:type ="PQ" value="5-10" /> <interpretationCode codeSystem="local" code="*" / > <referenceRange> <observationRange> <text>0 - 5</text> </observationRange> </referenceRange> </ observation> </component> </organizer> </entry> <entry> <organizer moodCode="EVN" classCode="BATTERY"> <templateId root= "216.840.1.503442.10..4.1" /> <id nullFlavor="NA" /> <code codeSystem="local" code="CBCD" displayName="CBC W/DIFF" /> <statusCode code ="completed" /> <component> <observation moodCode="EVN" classCode= "OBS"> <templateId root="216.840.1.118262.02.28.22.4.2" /> < id nullFlavor="NA" /> <code codeSystem="local" code="BA#" displayName= "BASOPHIL #" /> <statusCode code="completed" /> < effectiveTime value="408469067516" /> <value unit="k/cumm" xsi:type="PQ " value="0.0" /> <referenceRange> <observationRange> <text>0.0-0.2</text> </observationRange> </ referenceRange> </observation> </component> <component> <observation moodCode="EVN" classCode="OBS"> <templateId root= "216.840.1.485447.02.28.22.4.2" /> <id nullFlavor="NA" /> < code codeSystem="local" code="BA%" displayName="BASOPHIL %" /> <statusCode code="completed" /> <effectiveTime value="055754946129" /> <value unit="%" xsi:type="PQ" value="1" /> < referenceRange> <observationRange> <text>0-1</text> </observationRange> </referenceRange> </observation> </component> <component> <observation moodCode="EVN" classCode= "OBS"> <templateId root="06.27.840.1.409129.02.28.22.4.2" /> < id nullFlavor="NA" /> <code codeSystem="local" code="EO#" displayName= "EOSINOPHIL #" /> <statusCode code="completed" /> < effectiveTime value="" /> <value unit="k/cumm" xsi:type="PQ " value="0.2" /> <referenceRange> <observationRange> <text>0.1-0.5</text> </observationRange> </ referenceRange> </observation> </component> <component> <observation moodCode="EVN" classCode="OBS"> <templateId root= "06.27.840.1.606438.02.28.22.4.2" /> <id nullFlavor="NA" /> < code codeSystem="local" code="EO%" displayName="EOSINOPHIL %" /> <statusCode code="completed" /> <effectiveTime value="" /> <value unit="%" xsi:type="PQ" value="4" /> < referenceRange> <observationRange> <text>2-4</text> </observationRange> </referenceRange> </observation> </component> <component> <observation moodCode="EVN" classCode= "OBS"> <templateId root="06.27.840.1.779307.22.4.2" /> < id nullFlavor="NA" /> <code codeSystem="local" code="GR#" displayName= "GRANULOCYTE #" /> <statusCode code="completed" /> < effectiveTime value="138068423487" /> <value unit="k/cumm" xsi:type="PQ " value="4.1" /> <referenceRange> <observationRange> <text>2.0-9.0</text> </observationRange> </ referenceRange> </observation> </component> <component> <observation moodCode="EVN" classCode="OBS"> <templateId root= "216.840.1.527784.10...4.2" /> <id nullFlavor="NA" /> < code codeSystem="local" code="GR%" displayName="GRANULOCYTE %" /> <statusCode code="completed" /> <effectiveTime value="685696059787 " /> <value unit="%" xsi:type="PQ" value="60" /> < referenceRange> <observationRange> <text>50-75</text> </observationRange> </referenceRange> </observation> </component> <component> <observation moodCode="EVN" classCode= "OBS"> <templateId root="06.27.840.1.117919.10..4.2" /> < id nullFlavor="NA" /> <code codeSystem="local" code="LY#" displayName= "LYMPHOCYTE #" /> <statusCode code="completed" /> < effectiveTime value="933943775203" /> <value unit="k/cumm" xsi:type="PQ " value="1.9" /> <referenceRange> <observationRange> <text>1.0-4.0</text> </observationRange> </ referenceRange> </observation> </component> <component> <observation moodCode="EVN" classCode="OBS"> <templateId root= "16.840.1.884669.10.20.22.4.2" /> <id nullFlavor="NA" /> < code codeSystem="local" code="LY%" displayName="LYMPHOCYTE %" /> <statusCode code="completed" /> <effectiveTime value="951338840746" /> <value unit="%" xsi:type="PQ" value="27" /> < referenceRange> <observationRange> <text>20-30</text> </observationRange> </referenceRange> </observation> </component> <component> <observation moodCode="EVN" classCode= "OBS"> <templateId root="216.840.1.459353.10.20.22.4.2" /> < id nullFlavor="NA" /> <code codeSystem="local" code="MCH" displayName= "MEAN CELL HGB" /> <statusCode code="completed" /> < effectiveTime value="788025509656" /> <value unit="pg" xsi:type="PQ" value="30.0" /> <referenceRange> <observationRange> <text>27.0-33.0</text> </observationRange> </ referenceRange> </observation> </component> <component> <observation moodCode="EVN" classCode="OBS"> <templateId root= "16.840.1.000063.10.20.22.4.2" /> <id nullFlavor="NA" /> < code codeSystem="local" code="MCHC" displayName="MEAN CELL HGB CONCENTRATION" / > <statusCode code="completed" /> <effectiveTime value= "613826368654" /> <value unit="g/dL" xsi:type="PQ" value="33.8" /> <referenceRange> <observationRange> <text>32.0- 37.0</text> </observationRange> </referenceRange> </ observation> </component> <component> <observation moodCode= "EVN" classCode="OBS"> <templateId root="2.16.840.1.498308.10..4.2 " /> <id nullFlavor="NA" /> <code codeSystem="local" code="MCV " displayName="MEAN CELL VOLUME" /> <statusCode code="completed" /> <effectiveTime value="597584482440" /> <value unit="fl" xsi:type ="PQ" value="88.8" /> <referenceRange> <observationRange> <text>80.0-100.0</text> </observationRange> </ referenceRange> </observation> </component> <component> <observation moodCode="EVN" classCode="OBS"> <templateId root= "06.27.840.1.212898.02.28.22.4.2" /> <id nullFlavor="NA" /> < code codeSystem="local" code="MO#" displayName="MONOCYTE #" /> < statusCode code="completed" /> <effectiveTime value="" /> <value unit="k/cumm" xsi:type="PQ" value="0.6" /> < referenceRange> <observationRange> <text>0.1-1.0</text> </observationRange> </referenceRange> </observation > </component> <component> <observation moodCode="EVN" classCode="OBS"> <templateId root="06.27.840.1.460983...4.2" /> <id nullFlavor="NA" /> <code codeSystem="local" code="MO% " displayName="MONOCYTE %" /> <statusCode code="completed" /> <effectiveTime value="" /> <value unit="%" xsi: type="PQ" value="9" /> <interpretationCode codeSystem="local" code="*" /> <referenceRange> <observationRange> <text>4- 6</text> </observationRange> </referenceRange> </ observation> </component> <component> <observation moodCode= "EVN" classCode="OBS"> <templateId root="16.840.1.186513.10.20.22.4.2 " /> <id nullFlavor="NA" /> <code codeSystem="local" code="RBC " displayName="RED BLOOD CELL" /> <statusCode code="completed" /> <effectiveTime value="599230242928" /> <value unit="m/cumm" xsi: type="PQ" value="3.57" /> <interpretationCode codeSystem="local" code= "*" /> <referenceRange> <observationRange> < text>4.00-6.00</text> </observationRange> </referenceRange> </observation> </component> <component> <observation moodCode="EVN" classCode="OBS"> <templateId root= "840.1.801393.10..4.2" /> <id nullFlavor="NA" /> < code codeSystem="local" code="RDW" displayName="RED CELL DISTRIBUTION WIDTH" /> <statusCode code="completed" /> <effectiveTime value= "549606134951" /> <value unit="%" xsi:type="PQ" value="13.5" /> <referenceRange> <observationRange> <text>11.0- 15.6</text> </observationRange> </referenceRange> </ observation> </component> <component> <observation moodCode= "EVN" classCode="OBS"> <templateId root="16.840.1.533457.10.20.22.4.2 " /> <id nullFlavor="NA" /> <code codeSystem="local" code="WBC " displayName="WHITE BLOOD CELL" /> <statusCode code="completed" /> <effectiveTime value="626334363426" /> <value unit="k/cumm" xsi: type="PQ" value="6.9" /> <referenceRange> <observationRange > <text>5.0-10.0</text> </observationRange> </ referenceRange> </observation> </component> <component> <observation moodCode="EVN" classCode="OBS"> <templateId root= "216.840.1.907065.10.20.22.4.2" /> <id nullFlavor="NA" /> < code codeSystem="local" code="HGBT" displayName="HEMOGLOBIN" /> < statusCode code="completed" /> <effectiveTime value="069385460801" /> <value unit="gm/dL" xsi:type="PQ" value="10.7" /> < interpretationCode codeSystem="local" code="*" /> <referenceRange> <observationRange> <text>12.0-16.0</text> </ observationRange> </referenceRange> </observation> </ component> <component> <observation moodCode="EVN" classCode="OBS"> <templateId root="216.840.1.847273.10.20.22.4.2" /> <id nullFlavor="NA" /> <code codeSystem="local" code="HCTT" displayName= "HEMATOCRIT" /> <statusCode code="completed" /> < effectiveTime value="903922571449" /> <value unit="%" xsi:type="PQ " value="31.7" /> <interpretationCode codeSystem="local" code="*" /> <referenceRange> <observationRange> <text>37.0- 47.0</text> </observationRange> </referenceRange> </ observation> </component> <component> <observation moodCode= "EVN" classCode="OBS"> <templateId root="06.27.840.1.138041.10..22.4.2 " /> <id nullFlavor="NA" /> <code codeSystem="local" code="PLT " displayName="PLATELET COUNT" /> <statusCode code="completed" /> <effectiveTime value="565408910408" /> <value unit="k/cumm" xsi: type="PQ" value="275" /> <referenceRange> <observationRange > <text>150-450</text> </observationRange> </ referenceRange> </observation> </component> </organizer> </entry > <entry> <organizer moodCode="EVN" classCode="BATTERY"> <templateId root="06.27.840.1.169523.10..22.4.1" /> <id nullFlavor="NA" /> <code codeSystem="local" code="PREG" displayName=" TEST, SERUM" /> < statusCode code="completed" /> <component> <observation moodCode= "EVN" classCode="OBS"> <templateId root="06.27.840.1.872026.10..22.4.2 " /> <id nullFlavor="NA" /> <code codeSystem="local" code= "PREG" displayName=" TEST, SERUM" /> <statusCode code= "completed" /> <effectiveTime value="474923412199" /> <value unit="" xsi:type="PQ" value="NEGATIVE" /> <referenceRange> < observationRange> <text>NEGATIVE</text> </ observationRange> </referenceRange> </observation> </ component> </organizer> </entry> <entry> <organizer moodCode="EVN" classCode="BATTERY"> <templateId root="06.27.830.1.636501.10..22.4.1" /> <id nullFlavor="NA" /> <code codeSystem="local" code="PT" displayName= "PROTHROMBIN TIME WITH INR" /> <statusCode code="completed" /> < component> <observation moodCode="EVN" classCode="OBS"> < templateId root="06.27.840.1.455895...4.2" /> <id nullFlavor="NA " /> <code codeSystem="local" code="INRX" displayName="INTERNATIONAL NORMAL RATIO" /> <statusCode code="completed" /> < effectiveTime value="583259583337" /> <value unit="" xsi:type="PQ" value="1.1" /> <referenceRange> <observationRange> <text>0.9-1.1</text> </observationRange> </ referenceRange> </observation> </component> <component> <observation moodCode="EVN" classCode="OBS"> <templateId root= "06.27.840.1.244293.02.28.22.4.2" /> <id nullFlavor="NA" /> < code codeSystem="local" code="PTPAT" displayName="PROTHROMBIN TIME" /> <statusCode code="completed" /> <effectiveTime value="321889097066" /> <value unit="sec" xsi:type="PQ" value="12.3" /> < referenceRange> <observationRange> <text>10.0-12.9</text > </observationRange> </referenceRange> </observation > </component> </organizer> </entry> <entry> <organizer moodCode= "EVN" classCode="BATTERY"> <templateId root="16.840.1.755891....4.1 " /> <id nullFlavor="NA" /> <code codeSystem="local" code="PTT" displayName="PARTIAL THROMBOPLASTIN TIME" /> <statusCode code="completed" / > <component> <observation moodCode="EVN" classCode="OBS"> <templateId root="16.840.1.788605.10.22.4.2" /> <id nullFlavor="NA " /> <code codeSystem="local" code="PTT" displayName="PARTIAL THROMBOPLASTIN TIME" /> <statusCode code="completed" /> < effectiveTime value="490593634146" /> <value unit="sec" xsi:type="PQ" value="33" /> <referenceRange> <observationRange> <text>25-37</text> </observationRange> </referenceRange > </observation> </component> </organizer> </entry> <entry> <organizer moodCode="EVN" classCode="BATTERY"> <templateId root= "06.27.840.1.035668.10.22.4.1" /> <id nullFlavor="NA" /> <code codeSystem="local" code="METABC" displayName="METABOLIC PANEL, COMPREHN" /> <statusCode code="completed" /> <component> <observation moodCode= "EVN" classCode="OBS"> <templateId root="06.27.840.1.368520.10.22.4.2 " /> <id nullFlavor="NA" /> <code codeSystem="local" code="K" displayName="POTASSIUM" /> <statusCode code="completed" /> < effectiveTime value="715404443593" /> <value unit="mmol/L" xsi:type="PQ " value="3.1" /> <interpretationCode codeSystem="local" code="*" /> <referenceRange> <observationRange> <text>3.5-5.3 </text> </observationRange> </referenceRange> </ observation> </component> <component> <observation moodCode= "EVN" classCode="OBS"> <templateId root="216.840.1.639224.10.4.2 " /> <id nullFlavor="NA" /> <code codeSystem="local" code= "eGFR" displayName="EST GFR (MDRD)" /> <statusCode code="completed" /> <effectiveTime value="376429189367" /> <value unit="mL/min" xsi:type="PQ" value="> 60" /> <referenceRange> < observationRange> <text>> 59</text> </ observationRange> </referenceRange> </observation> </ component> <component> <observation moodCode="EVN" classCode="OBS"> <templateId root="06.27.840.1.871825.02.28.22.4.2" /> <id nullFlavor="NA" /> <code codeSystem="local" code="GAP" displayName= "ANION GAP" /> <statusCode code="completed" /> <effectiveTime value="097103608493" /> <value unit="mmol/L" xsi:type="PQ" value="11" / > <referenceRange> <observationRange> <text>5- 15</text> </observationRange> </referenceRange> </ observation> </component> <component> <observation moodCode= "EVN" classCode="OBS"> <templateId root="06.27.840.1.019625...4.2 " /> <id nullFlavor="NA" /> <code codeSystem="local" code= "eCrCl" displayName="EST CrCl (CG)" /> <statusCode code="completed" /> <effectiveTime value="631994539790" /> <value unit="mL/min" xsi:type="PQ" value="> 60" /> <referenceRange> < observationRange> <text>> 59</text> </ observationRange> </referenceRange> </observation> </ component> <component> <observation moodCode="EVN" classCode="OBS"> <templateId root="16.840.1.836448.10..22.4.2" /> <id nullFlavor="NA" /> <code codeSystem="local" code="GLU" displayName= "GLUCOSE" /> <statusCode code="completed" /> <effectiveTime value="832031351917" /> <value unit="mg/dL" xsi:type="PQ" value="82" / > <referenceRange> <observationRange> <text>70- 99</text> </observationRange> </referenceRange> </ observation> </component> <component> <observation moodCode= "EVN" classCode="OBS"> <templateId root="06.27.840.1.957812.10..4.2 " /> <id nullFlavor="NA" /> <code codeSystem="local" code="CA " displayName="CALCIUM" /> <statusCode code="completed" /> < effectiveTime value="213761953131" /> <value unit="mg/dL" xsi:type="PQ " value="9.0" /> <referenceRange> <observationRange> <text>8.5-10.1</text> </observationRange> </ referenceRange> </observation> </component> <component> <observation moodCode="EVN" classCode="OBS"> <templateId root= "06.27.840.1.994568.10.20.22.4.2" /> <id nullFlavor="NA" /> < code codeSystem="local" code="BUN" displayName="BLOOD UREA NITROGEN" /> <statusCode code="completed" /> <effectiveTime value="739076984884" / > <value unit="mg/dL" xsi:type="PQ" value="16" /> < referenceRange> <observationRange> <text>7-20</text> </observationRange> </referenceRange> </observation> </component> <component> <observation moodCode="EVN" classCode= "OBS"> <templateId root="216.840.1.492899.10..22.4.2" /> < id nullFlavor="NA" /> <code codeSystem="local" code="CREAT" displayName ="CREATININE" /> <statusCode code="completed" /> < effectiveTime value="418735422372" /> <value unit="mg/dL" xsi:type="PQ " value="0.9" /> <referenceRange> <observationRange> <text>0.6-1.0</text> </observationRange> </ referenceRange> </observation> </component> <component> <observation moodCode="EVN" classCode="OBS"> <templateId root= "16.840.1.692964.10..22.4.2" /> <id nullFlavor="NA" /> < code codeSystem="local" code="NA" displayName="SODIUM" /> <statusCode code="completed" /> <effectiveTime value="850493537630" /> < value unit="mmol/L" xsi:type="PQ" value="144" /> <referenceRange> <observationRange> <text>135-148</text> </ observationRange> </referenceRange> </observation> </ component> <component> <observation moodCode="EVN" classCode="OBS"> <templateId root="216.840.1.581128.10..22.4.2" /> <id nullFlavor="NA" /> <code codeSystem="local" code="CL" displayName= "CHLORIDE" /> <statusCode code="completed" /> <effectiveTime value="647285210499" /> <value unit="mmol/L" xsi:type="PQ" value="103" /> <referenceRange> <observationRange> <text>98 -110</text> </observationRange> </referenceRange> </ observation> </component> <component> <observation moodCode= "EVN" classCode="OBS"> <templateId root="2.16.840.1.712725.10..22.4.2 " /> <id nullFlavor="NA" /> <code codeSystem="local" code="AST " displayName="AST/SGOT" /> <statusCode code="completed" /> < effectiveTime value="979981042069" /> <value unit="Units/L" xsi:type= "PQ" value="14" /> <referenceRange> <observationRange> <text>10-37</text> </observationRange> </ referenceRange> </observation> </component> <component> <observation moodCode="EVN" classCode="OBS"> <templateId root= "2.16.840.1.015266.10..22.4.2" /> <id nullFlavor="NA" /> < code codeSystem="local" code="ALT" displayName="ALT/SGPT" /> < statusCode code="completed" /> <effectiveTime value="041862193103" /> <value unit="Units/L" xsi:type="PQ" value="9" /> < referenceRange> <observationRange> <text>< 66</text> </observationRange> </referenceRange> </observation > </component> <component> <observation moodCode="EVN" classCode="OBS"> <templateId root="16.840.1.835404.10..22.4.2" /> <id nullFlavor="NA" /> <code codeSystem="local" code="CO2" displayName="CARBON DIOXIDE" /> <statusCode code="completed" /> <effectiveTime value="680006946084" /> <value unit="mmol/L" xsi:type ="PQ" value="30" /> <referenceRange> <observationRange> <text>21-32</text> </observationRange> </ referenceRange> </observation> </component> <component> <observation moodCode="EVN" classCode="OBS"> <templateId root= "16.840.1.186315.10...4.2" /> <id nullFlavor="NA" /> < code codeSystem="local" code="TP" displayName="TOTAL PROTEIN" /> < statusCode code="completed" /> <effectiveTime value="311188796410" /> <value unit="gm/dL" xsi:type="PQ" value="6.8" /> < referenceRange> <observationRange> <text>6.4-8.2</text> </observationRange> </referenceRange> </observation > </component> <component> <observation moodCode="EVN" classCode="OBS"> <templateId root="06.27.840.1.413557.10..22.4.2" /> <id nullFlavor="NA" /> <code codeSystem="local" code="ALB" displayName="ALBUMIN" /> <statusCode code="completed" /> < effectiveTime value="161494875683" /> <value unit="gm/dL" xsi:type="PQ " value="3.6" /> <referenceRange> <observationRange> <text>3.4-5.0</text> </observationRange> </ referenceRange> </observation> </component> <component> <observation moodCode="EVN" classCode="OBS"> <templateId root= "2.16.840.1.684160.10..22.4.2" /> <id nullFlavor="NA" /> < code codeSystem="local" code="BILTOT" displayName="BILI TOTAL" /> < statusCode code="completed" /> <effectiveTime value="950065824633" /> <value unit="mg/dL" xsi:type="PQ" value="0.3" /> < referenceRange> <observationRange> <text>0.0-1.0</text> </observationRange> </referenceRange> </observation > </component> <component> <observation moodCode="EVN" classCode="OBS"> <templateId root="2.16.840.1.275913.10..4.2" /> <id nullFlavor="NA" /> <code codeSystem="local" code="ALKP" displayName="ALKALINE PHOSPHATASE TOTAL" /> <statusCode code="completed " /> <effectiveTime value="902542855457" /> <value unit="IU/L " xsi:type="PQ" value="66" /> <referenceRange> < observationRange> <text>45-117</text> </observationRange > </referenceRange> </observation> </component> </ organizer> </entry> <entry> <organizer moodCode="EVN" classCode="BATTERY"> <templateId root="2.16.840.1.842878.10..22.4.1" /> <id nullFlavor= "NA" /> <code codeSystem="local" code="TSH" displayName="THYROID STIM HORMONE (TSH)" /> <statusCode code="completed" /> <component> < observation moodCode="EVN" classCode="OBS"> <templateId root= "216.840.1.903256.10.20.22.4.2" /> <id nullFlavor="NA" /> < code codeSystem="local" code="TSH" displayName="THYROID STIM HORMONE (TSH)" /> <statusCode code="completed" /> <effectiveTime value= "372400824556" /> <value unit="uIU/mL" xsi:type="PQ" value="2.48" /> <referenceRange> <observationRange> <text>0.34- 4.82</text> </observationRange> </referenceRange> </ observation> </component> </organizer> </entry> <entry> <organizer moodCode="EVN" classCode="BATTERY"> <templateId root= "216.840.1.073450.10.20.22.4.1" /> <id nullFlavor="NA" /> <code codeSystem="local" code="ORD68" displayName="Urinalysis" /> <statusCode code="completed" /> <component> <observation moodCode="EVN" classCode="OBS"> <templateId root="216.840.1.768340.10.20.22.4.2" /> <id nullFlavor="NA" /> <code codeSystem="local" code="Pot8264 " displayName="Icotest" /> <statusCode code="completed" /> < effectiveTime value="093742886763" /> <value unit="" xsi:type="PQ" value="N/A" /> <interpretationCode codeSystem="local" code="A" /> <referenceRange> <observationRange> <text>Negative< /text> </observationRange> </referenceRange> </ observation> </component> <component> <observation moodCode= "EVN" classCode="OBS"> <templateId root="2.16.840.1.478974.10.22.4.2 " /> <id nullFlavor="NA" /> <code codeSystem="local" code= "Qqo662" displayName="Urine Crystals" /> <statusCode code="completed" / > <effectiveTime value="022407269956" /> <value unit="" xsi: type="PQ" value="Amorphous material: abundant/HPF" /> <referenceRange> <observationRange> <text /> </ observationRange> </referenceRange> </observation> </ component> <component> <observation moodCode="EVN" classCode="OBS"> <templateId root="216.840.1.949404.02.28.22.4.2" /> <id nullFlavor="NA" /> <code codeSystem="local" code="Jlk928" displayName= "Urine Volume" /> <statusCode code="completed" /> < effectiveTime value="153373413910" /> <value unit="" xsi:type="PQ" value="Urine Volume Sufficient (10mL)" /> <referenceRange> < observationRange> <text /> </observationRange> </referenceRange> </observation> </component> <component> <observation moodCode="EVN" classCode="OBS"> <templateId root= "216.840.1.226915.02.28.22.4.2" /> <id nullFlavor="NA" /> < code codeSystem="local" code="Fln752" displayName="Urine-Appearance" /> <statusCode code="completed" /> <effectiveTime value="749162583624" / > <value unit="" xsi:type="PQ" value="Cloudy" /> < interpretationCode codeSystem="local" code="A" /> <referenceRange> <observationRange> <text>Clear</text> </ observationRange> </referenceRange> </observation> </ component> <component> <observation moodCode="EVN" classCode="OBS"> <templateId root="216.840.1.058101.10..4.2" /> <id nullFlavor="NA" /> <code codeSystem="local" code="Wcm587" displayName= "Urine-Bacteria" /> <statusCode code="completed" /> < effectiveTime value="877370504599" /> <value unit="" xsi:type="PQ" value="Trace" /> <interpretationCode codeSystem="local" code="A" /> <referenceRange> <observationRange> <text> </text > </observationRange> </referenceRange> </observation > </component> <component> <observation moodCode="EVN" classCode="OBS"> <templateId root="216.840.1.565270.02.28.22.4.2" /> <id nullFlavor="NA" /> <code codeSystem="local" code="Les014" displayName="Urine-Bilirubin" /> <statusCode code="completed" /> <effectiveTime value="095524133159" /> <value unit="" xsi:type="PQ " value="Negative" /> <referenceRange> <observationRange> <text>Negative</text> </observationRange> </ referenceRange> </observation> </component> <component> <observation moodCode="EVN" classCode="OBS"> <templateId root= "216.840.1.033451.10.22.4.2" /> <id nullFlavor="NA" /> < code codeSystem="local" code="Rvt699" displayName="Urine-Blood" /> < statusCode code="completed" /> <effectiveTime value="455454191163" /> <value unit="" xsi:type="PQ" value="Negative" /> < referenceRange> <observationRange> <text>Negative</text > </observationRange> </referenceRange> </observation > </component> <component> <observation moodCode="EVN" classCode="OBS"> <templateId root="16.840.1.120753.10.20.22.4.2" /> <id nullFlavor="NA" /> <code codeSystem="local" code="Rjy200" displayName="Urine-Color" /> <statusCode code="completed" /> < effectiveTime value="676132147083" /> <value unit="" xsi:type="PQ" value="Yellow" /> <referenceRange> <observationRange> <text>Colorless-Lt. Yellow</text> </observationRange> </referenceRange> </observation> </component> <component> <observation moodCode="EVN" classCode="OBS"> <templateId root= "06.27.840.1.965139.10.22.4.2" /> <id nullFlavor="NA" /> < code codeSystem="local" code="Llp737" displayName="Urine-Epithelial Cells" /> <statusCode code="completed" /> <effectiveTime value= "435854877246" /> <value unit="" xsi:type="PQ" value="5-10/HPF" /> <interpretationCode codeSystem="local" code="A" /> < referenceRange> <observationRange> <text> </text> </observationRange> </referenceRange> </observation> </component> <component> <observation moodCode="EVN" classCode="OBS "> <templateId root="06.27.840.1.296114.10.20.22.4.2" /> <id nullFlavor="NA" /> <code codeSystem="local" code="Ggq069" displayName= "Urine-Glucose" /> <statusCode code="completed" /> < effectiveTime value="467082084626" /> <value unit="" xsi:type="PQ" value="Negative" /> <referenceRange> <observationRange> <text>Negative</text> </observationRange> </ referenceRange> </observation> </component> <component> <observation moodCode="EVN" classCode="OBS"> <templateId root= "216.840.1.794081.02.28.22.4.2" /> <id nullFlavor="NA" /> < code codeSystem="local" code="Ebg219" displayName="Urine-Ketones" /> < statusCode code="completed" /> <effectiveTime value="649261245089" /> <value unit="" xsi:type="PQ" value="Negative" /> < referenceRange> <observationRange> <text>Negative</text > </observationRange> </referenceRange> </observation > </component> <component> <observation moodCode="EVN" classCode="OBS"> <templateId root="06.27.840.1.263968.02.28.22.4.2" /> <id nullFlavor="NA" /> <code codeSystem="local" code="Vvm334" displayName="Urine-Leukocytes" /> <statusCode code="completed" /> <effectiveTime value="764245788029" /> <value unit="" xsi:type="PQ " value="1+" /> <interpretationCode codeSystem="local" code="A" /> <referenceRange> <observationRange> <text>Negative </text> </observationRange> </referenceRange> </ observation> </component> <component> <observation moodCode= "EVN" classCode="OBS"> <templateId root="216.840.1.113388...4.2 " /> <id nullFlavor="NA" /> <code codeSystem="local" code= "Bww919" displayName="Urine-Nitrite" /> <statusCode code="completed" / > <effectiveTime value="114074944755" /> <value unit="" xsi: type="PQ" value="Negative" /> <referenceRange> < observationRange> <text>Negative</text> </ observationRange> </referenceRange> </observation> </ component> <component> <observation moodCode="EVN" classCode="OBS"> <templateId root="2.16.840.1.580026.10.20.22.4.2" /> <id nullFlavor="NA" /> <code codeSystem="local" code="Jlx261" displayName= "Urine-Other" /> <statusCode code="completed" /> < effectiveTime value="857375682962" /> <value unit="" xsi:type="PQ" value=" Urine Saved if Culture Needed (48hrs from time of collection)" /> <interpretationCode codeSystem="local" code="A" /> <referenceRange > <observationRange> <text> </text> </ observationRange> </referenceRange> </observation> </ component> <component> <observation moodCode="EVN" classCode="OBS"> <templateId root="2.16.840.1.207320.10..22.4.2" /> <id nullFlavor="NA" /> <code codeSystem="local" code="Tsu303" displayName= "Urine-pH" /> <statusCode code="completed" /> <effectiveTime value="740398700024" /> <value unit="" xsi:type="PQ" value="7.5" /> <referenceRange> <observationRange> <text>5-8.5</ text> </observationRange> </referenceRange> </ observation> </component> <component> <observation moodCode= "EVN" classCode="OBS"> <templateId root="16.840.1.641647.10..22.4.2 " /> <id nullFlavor="NA" /> <code codeSystem="local" code= "Gil224" displayName="Urine-Protein" /> <statusCode code="completed" / > <effectiveTime value="475174688172" /> <value unit="" xsi: type="PQ" value="Negative" /> <referenceRange> < observationRange> <text>Negative</text> </ observationRange> </referenceRange> </observation> </ component> <component> <observation moodCode="EVN" classCode="OBS"> <templateId root="16.840.1.920828.10.22.4.2" /> <id nullFlavor="NA" /> <code codeSystem="local" code="Znw939" displayName= "Urine-RBC" /> <statusCode code="completed" /> <effectiveTime value="554762327441" /> <value unit="" xsi:type="PQ" value="0-2/HPF" / > <interpretationCode codeSystem="local" code="A" /> < referenceRange> <observationRange> <text> </text> </observationRange> </referenceRange> </observation> </component> <component> <observation moodCode="EVN" classCode="OBS "> <templateId root="06.27.840.1.061367.10.22.4.2" /> <id nullFlavor="NA" /> <code codeSystem="local" code="Kgb067" displayName= "Urine-Specific Melrose" /> <statusCode code="completed" /> < effectiveTime value="567091952223" /> <value unit="" xsi:type="PQ" value="1.020" /> <referenceRange> <observationRange> <text>1.000-1.030</text> </observationRange> </ referenceRange> </observation> </component> <component> <observation moodCode="EVN" classCode="OBS"> <templateId root= "216.840.1.748440.10.20.22.4.2" /> <id nullFlavor="NA" /> < code codeSystem="local" code="Gfz281" displayName="Urine-WBC" /> < statusCode code="completed" /> <effectiveTime value="853441760609" /> <value unit="" xsi:type="PQ" value="2-5/HPF" /> < interpretationCode codeSystem="local" code="A" /> <referenceRange> <observationRange> <text> </text> </ observationRange> </referenceRange> </observation> </ component> <component> <observation moodCode="EVN" classCode="OBS"> <templateId root="06.27.840.1.578163.22.4.2" /> <id nullFlavor="NA" /> <code codeSystem="local" code="Qch887" displayName= "Urobilinogen" /> <statusCode code="completed" /> < effectiveTime value="545151670599" /> <value unit="" xsi:type="PQ" value="0.2" /> <referenceRange> <observationRange> <text>0.2-1.0</text> </observationRange> </ referenceRange> </observation> </component> </organizer> </entry > <entry> <organizer moodCode="EVN" classCode="BATTERY"> <templateId root="216.840.1.875269.10.20.22.4.1" /> <id nullFlavor="NA" /> <code codeSystem="local" code="TTD722" displayName="XM 2) LRPC" /> <statusCode code="completed" /> <component> <observation moodCode="EVN" classCode="OBS"> <templateId root="216.840.1.845674.10.4.2" /> <id nullFlavor="NA" /> <code codeSystem="local" code="Kki559" displayName="CROSSMATCH" /> <statusCode code="completed" /> < effectiveTime value="119095768362" /> <value unit="" xsi:type="PQ" value="COMPATIBLE X 2" /> <referenceRange> <observationRange > <text /> </observationRange> </referenceRange > </observation> </component> <component> <observation moodCode="EVN" classCode="OBS"> <templateId root= "06.27.840.1.826459.02.28.224.2" /> <id nullFlavor="NA" /> < code codeSystem="local" code="Res87" displayName="Hct" /> <statusCode code="completed" /> <effectiveTime value="234000165607" /> < value unit="%" xsi:type="PQ" value="26.9" /> <interpretationCode codeSystem="local" code="L" /> <referenceRange> < observationRange> <text>36.0-46.0</text> </ observationRange> </referenceRange> </observation> </ component> <component> <observation moodCode="EVN" classCode="OBS"> <templateId root="06.27.840.1.900586.1022.4.2" /> <id nullFlavor="NA" /> <code codeSystem="local" code="Ocu915" displayName= "Hgb" /> <statusCode code="completed" /> <effectiveTime value= "795035884860" /> <value unit="g/dL" xsi:type="PQ" value="7.6" /> <interpretationCode codeSystem="local" code="L" /> <referenceRange > <observationRange> <text>13.0-15.0</text> < /observationRange> </referenceRange> </observation> </ component> </organizer> </entry> <entry> <organizer moodCode="EVN" classCode="BATTERY"> <templateId root="216.840.1.257725.10..22.4.1" /> <id nullFlavor="NA" /> <code codeSystem="local" code="YMD8921" displayName="Leukoreduced Packed RBC Unit Checkout" /> <statusCode code= "completed" /> <component> <observation moodCode="EVN" classCode= "OBS"> <templateId root="216.840.1.093479.10..22.4.2" /> < id nullFlavor="NA" /> <code codeSystem="local" code="Adk780" displayName="LRPRBC Checkout" /> <statusCode code="completed" /> <effectiveTime value="884233211579" /> <value unit="" xsi:type="PQ " value="Checked Out." /> <referenceRange> <observationRange > <text /> </observationRange> </referenceRange > </observation> </component> </organizer> </entry> <entry> <organizer moodCode="EVN" classCode="BATTERY"> <templateId root= "216.840.1.625319.10..22.4.1" /> <id nullFlavor="NA" /> <code codeSystem="local" code="FMX769" displayName="Ferritin" /> <statusCode code ="completed" /> <component> <observation moodCode="EVN" classCode= "OBS"> <templateId root="2.16.840.1.515324.10..22.4.2" /> < id nullFlavor="NA" /> <code codeSystem="local" code="Nka410" displayName="Ferritin" /> <statusCode code="completed" /> < effectiveTime value="403124087287" /> <value unit="ng/mL" xsi:type="PQ " value="3.90" /> <interpretationCode codeSystem="local" code="L" /> <referenceRange> <observationRange> <text>4.63- 204.00</text> </observationRange> </referenceRange> < /observation> </component> </organizer> </entry> <entry> < organizer moodCode="EVN" classCode="BATTERY"> <templateId root= "2.16.840.1.368304.10..22.4.1" /> <id nullFlavor="NA" /> <code codeSystem="local" code="IES088" displayName="VIT B-12" /> <statusCode code ="completed" /> <component> <observation moodCode="EVN" classCode= "OBS"> <templateId root="2.16.840.1.185958.10.20.22.4.2" /> < id nullFlavor="NA" /> <code codeSystem="local" code="Hdy943" displayName="Vitamin B12" /> <statusCode code="completed" /> < effectiveTime value="422629065707" /> <value unit="pg/mL" xsi:type="PQ " value="221.00" /> <referenceRange> <observationRange> <text>213.00-816.00</text> </observationRange> </ referenceRange> </observation> </component> </organizer> </entry > <entry> <organizer moodCode="EVN" classCode="BATTERY"> <templateId root="840.1.777410.10..4.1" /> <id nullFlavor="NA" /> <code codeSystem="local" code="YUF389" displayName="Folate" /> <statusCode code= "completed" /> <component> <observation moodCode="EVN" classCode= "OBS"> <templateId root="840.1.792268.02.28.22.4.2" /> < id nullFlavor="NA" /> <code codeSystem="local" code="Oup845" displayName="Folate" /> <statusCode code="completed" /> < effectiveTime value="346379516016" /> <value unit="ng/mL" xsi:type="PQ " value="15.40" /> <referenceRange> <observationRange> <text>7.00-31.40</text> </observationRange> </ referenceRange> </observation> </component> </organizer> </entry > <entry> <organizer moodCode="EVN" classCode="BATTERY"> <templateId root="840.1.022551.02.28.22.4.1" /> <id nullFlavor="NA" /> <code codeSystem="local" code="KSY1703" displayName="Leukoreduced Packed RBC Unit Checkout" /> <statusCode code="completed" /> <component> < observation moodCode="EVN" classCode="OBS"> <templateId root= "06.27.840.1.628322.02.28.22.4.2" /> <id nullFlavor="NA" /> < code codeSystem="local" code="Yxy979" displayName="LRPRBC Checkout" /> <statusCode code="completed" /> <effectiveTime value="946753239755" /> <value unit="" xsi:type="PQ" value="Checked Out." /> < referenceRange> <observationRange> <text /> < /observationRange> </referenceRange> </observation> </ component> </organizer> </entry> <entry> <organizer moodCode="EVN" classCode="BATTERY"> <templateId root="216.840.1.592195.10..22.4.1" /> <id nullFlavor="NA" /> <code codeSystem="local" code="KYY006" displayName="Rapid Drug Screen,Medical" /> <statusCode code="completed" /> <component> <observation moodCode="EVN" classCode="OBS"> < templateId root="216.840.1.411328.10..22.4.2" /> <id nullFlavor="NA " /> <code codeSystem="local" code="Squ631" displayName="Amphetamine" / > <statusCode code="completed" /> <effectiveTime value= "610465156401" /> <value unit="" xsi:type="PQ" value="NEGATIVE" /> <referenceRange> <observationRange> <text>NEGATIVE </text> </observationRange> </referenceRange> </ observation> </component> <component> <observation moodCode= "EVN" classCode="OBS"> <templateId root="216.840.1.872870.10..22.4.2 " /> <id nullFlavor="NA" /> <code codeSystem="local" code= "Uae015" displayName="Barbiturates" /> <statusCode code="completed" /> <effectiveTime value="855738985968" /> <value unit="" xsi: type="PQ" value="NEGATIVE" /> <referenceRange> < observationRange> <text>NEGATIVE</text> </ observationRange> </referenceRange> </observation> </ component> <component> <observation moodCode="EVN" classCode="OBS"> <templateId root="16.840.1.944607.10.4.2" /> <id nullFlavor="NA" /> <code codeSystem="local" code="Ltn229" displayName= "Benzodiazepines" /> <statusCode code="completed" /> < effectiveTime value="669605234482" /> <value unit="" xsi:type="PQ" value="NEGATIVE" /> <referenceRange> <observationRange> <text>NEGATIVE</text> </observationRange> </ referenceRange> </observation> </component> <component> <observation moodCode="EVN" classCode="OBS"> <templateId root= "216.840.1.928534.02.28.22.4.2" /> <id nullFlavor="NA" /> < code codeSystem="local" code="Guj540" displayName="Cocaine" /> < statusCode code="completed" /> <effectiveTime value="708098162634" /> <value unit="" xsi:type="PQ" value="NEGATIVE" /> < referenceRange> <observationRange> <text>NEGATIVE</text > </observationRange> </referenceRange> </observation > </component> <component> <observation moodCode="EVN" classCode="OBS"> <templateId root="16.840.1.114314.10.22.4.2" /> <id nullFlavor="NA" /> <code codeSystem="local" code="Ptt330" displayName="Marijuana" /> <statusCode code="completed" /> < effectiveTime value="084389711779" /> <value unit="" xsi:type="PQ" value="NEGATIVE" /> <referenceRange> <observationRange> <text>NEGATIVE</text> </observationRange> </ referenceRange> </observation> </component> <component> <observation moodCode="EVN" classCode="OBS"> <templateId root= "216.840.1.956173.10.4.2" /> <id nullFlavor="NA" /> < code codeSystem="local" code="Rdf810" displayName="Methylenedioxymethamphetamine " /> <statusCode code="completed" /> <effectiveTime value= "174231800537" /> <value unit="" xsi:type="PQ" value="NEGATIVE" /> <referenceRange> <observationRange> <text>NEGATIVE </text> </observationRange> </referenceRange> </ observation> </component> <component> <observation moodCode= "EVN" classCode="OBS"> <templateId root="216.840.1.060823.02.28.22.4.2 " /> <id nullFlavor="NA" /> <code codeSystem="local" code= "Eov878" displayName="Opiates" /> <statusCode code="completed" /> <effectiveTime value="058433837066" /> <value unit="" xsi:type="PQ " value="NEGATIVE" /> <referenceRange> <observationRange> <text>NEGATIVE</text> </observationRange> </ referenceRange> </observation> </component> <component> <observation moodCode="EVN" classCode="OBS"> <templateId root= "216.840.1.594629.10.4.2" /> <id nullFlavor="NA" /> < code codeSystem="local" code="Ivh438" displayName="Oxycodone" /> < statusCode code="completed" /> <effectiveTime value="019531405124" /> <value unit="" xsi:type="PQ" value="NEGATIVE" /> < referenceRange> <observationRange> <text>NEGATIVE</text > </observationRange> </referenceRange> </observation > </component> <component> <observation moodCode="EVN" classCode="OBS"> <templateId root="216.840.1.508803.10.22.4.2" /> <id nullFlavor="NA" /> <code codeSystem="local" code="Kdf965" displayName="Phencyclidine" /> <statusCode code="completed" /> <effectiveTime value="319339115239" /> <value unit="" xsi:type="PQ" value="NEGATIVE" /> <referenceRange> <observationRange> <text>NEGATIVE</text> </observationRange> </ referenceRange> </observation> </component> <component> <observation moodCode="EVN" classCode="OBS"> <templateId root= "06.27.840.1.824423.10.4.2" /> <id nullFlavor="NA" /> < code codeSystem="local" code="Vjq702" displayName="Propoxyphene" /> < statusCode code="completed" /> <effectiveTime value="249296690859" /> <value unit="" xsi:type="PQ" value="NEGATIVE" /> < referenceRange> <observationRange> <text>NEGATIVE</text > </observationRange> </referenceRange> </observation > </component> <component> <observation moodCode="EVN" classCode="OBS"> <templateId root="06.27.840.1.337586.102022.4.2" /> <id nullFlavor="NA" /> <code codeSystem="local" code="Jqa981" displayName="Tricyclic Antidepressant" /> <statusCode code="completed" /> <effectiveTime value="552129762484" /> <value unit="" xsi: type="PQ" value="NEGATIVE" /> <referenceRange> < observationRange> <text>NEGATIVE</text> </ observationRange> </referenceRange> </observation> </ component> </organizer> </entry> <entry> <organizer moodCode="EVN" classCode="BATTERY"> <templateId root="06.27.840.1.694610.10..4.1" /> <id nullFlavor="NA" /> <code codeSystem="local" code="ORD92" displayName="Surgical Pathology" /> <statusCode code="completed" /> < component> <observation moodCode="EVN" classCode="OBS"> < templateId root="06.27.840.1.354551.10..4.2" /> <id nullFlavor="NA " /> <code codeSystem="local" code="Jpi1242" displayName="Surg Path" / > <statusCode code="completed" /> <effectiveTime value= "734681219790" /> <value unit="" xsi:type="PQ" value="Sent to [facility]" /> <referenceRange> <observationRange> <text /> </observationRange> </referenceRange> </ observation> </component> </organizer> </entry> <entry> <organizer moodCode="EVN" classCode="BATTERY"> <templateId root= "216.840.1.454779.10..4.1" /> <id nullFlavor="NA" /> <code codeSystem="local" code="GGL676" displayName="IFOBT Occult Blood" /> < statusCode code="completed" /> <component> <observation moodCode= "EVN" classCode="OBS"> <templateId root="216.840.1.682665.4.2 " /> <id nullFlavor="NA" /> <code codeSystem="local" code= "Vpo253" displayName="IFOBT Occult Blood" /> <statusCode code= "completed" /> <effectiveTime value="288056134243" /> <value unit="" xsi:type="PQ" value="NEGATIVE" /> <referenceRange> < observationRange> <text>Negative</text> </ observationRange> </referenceRange> </observation> </ component> </organizer> </entry> <entry> <organizer moodCode="EVN" classCode="BATTERY"> <templateId root="16.840.1.435814.02.28.22.4.1" /> <id nullFlavor="NA" /> <code codeSystem="local" code="TNT056" displayName="HH" /> <statusCode code="completed" /> <component> <observation moodCode="EVN" classCode="OBS"> <templateId root= "216.840.1.023001.02.28.22.4.2" /> <id nullFlavor="NA" /> < code codeSystem="local" code="Res87" displayName="Hct" /> <statusCode code="completed" /> <effectiveTime value="565038388769" /> < value unit="%" xsi:type="PQ" value="31.7" /> <interpretationCode codeSystem="local" code="L" /> <referenceRange> < observationRange> <text>36.0-46.0</text> </ observationRange> </referenceRange> </observation> </ component> <component> <observation moodCode="EVN" classCode="OBS"> <templateId root="216.840.1.731874.02.28.22.4.2" /> <id nullFlavor="NA" /> <code codeSystem="local" code="Fbh472" displayName= "Hgb" /> <statusCode code="completed" /> <effectiveTime value= "599661659017" /> <value unit="g/dL" xsi:type="PQ" value="9.4" /> <interpretationCode codeSystem="local" code="L" /> <referenceRange > <observationRange> <text>13.0-15.0</text> < /observationRange> </referenceRange> </observation> </ component> </organizer> </entry> <entry> <organizer moodCode="EVN" classCode="BATTERY"> <templateId root="216.840.1.723878.10...4.1" /> <id nullFlavor="NA" /> <code codeSystem="local" code="BED109" displayName="IFOBT Occult Blood" /> <statusCode code="completed" /> < component> <observation moodCode="EVN" classCode="OBS"> < templateId root="2.16.840.1.544082.10...4.2" /> <id nullFlavor="NA " /> <code codeSystem="local" code="Sgm878" displayName="IFOBT Occult Blood" /> <statusCode code="completed" /> <effectiveTime value ="706354109056" /> <value unit="" xsi:type="PQ" value="NEGATIVE" /> <referenceRange> <observationRange> <text> Negative</text> </observationRange> </referenceRange> </observation> </component> </organizer> </entry> <entry> < organizer moodCode="EVN" classCode="BATTERY"> <templateId root= "216.840.1.749551.10..22.4.1" /> <id nullFlavor="NA" /> <code codeSystem="local" code="ORD2" displayName="CBC with Auto Diff" /> < statusCode code="completed" /> <component> <observation moodCode= "EVN" classCode="OBS"> <templateId root="216.840.1.013773.10.4.2 " /> <id nullFlavor="NA" /> <code codeSystem="local" code= "Jpe842" displayName="Baso%" /> <statusCode code="completed" /> <effectiveTime value="138320338461" /> <value unit="%" xsi: type="PQ" value="1.10" /> <referenceRange> <observationRange > <text>0.00-2.50</text> </observationRange> </ referenceRange> </observation> </component> <component> <observation moodCode="EVN" classCode="OBS"> <templateId root= "06.27.840.1.266179.02.28.22.4.2" /> <id nullFlavor="NA" /> < code codeSystem="local" code="Ldb125" displayName="Eos" /> <statusCode code="completed" /> <effectiveTime value="837593608478" /> < value unit="K/uL" xsi:type="PQ" value="0.3" /> <referenceRange> <observationRange> <text>0.0-0.7</text> </ observationRange> </referenceRange> </observation> </ component> <component> <observation moodCode="EVN" classCode="OBS"> <templateId root="16.840.1.751799.10.22.4.2" /> <id nullFlavor="NA" /> <code codeSystem="local" code="Xwj374" displayName= "Eos%" /> <statusCode code="completed" /> <effectiveTime value="367318594207" /> <value unit="%" xsi:type="PQ" value="4.2" / > <referenceRange> <observationRange> <text>0.0 -7.0</text> </observationRange> </referenceRange> </ observation> </component> <component> <observation moodCode= "EVN" classCode="OBS"> <templateId root="2.16.840.1.326045.10.2022.4.2 " /> <id nullFlavor="NA" /> <code codeSystem="local" code= "Res87" displayName="Hct" /> <statusCode code="completed" /> < effectiveTime value="768889364704" /> <value unit="%" xsi:type="PQ " value="34.3" /> <interpretationCode codeSystem="local" code="L" /> <referenceRange> <observationRange> <text>36.0- 46.0</text> </observationRange> </referenceRange> </ observation> </component> <component> <observation moodCode= "EVN" classCode="OBS"> <templateId root="2.16.840.1.042426.10..22.4.2 " /> <id nullFlavor="NA" /> <code codeSystem="local" code= "Zjq402" displayName="Hgb" /> <statusCode code="completed" /> <effectiveTime value="882790995311" /> <value unit="g/dL" xsi:type="PQ " value="10.5" /> <interpretationCode codeSystem="local" code="L" /> <referenceRange> <observationRange> <text>13.0- 15.0</text> </observationRange> </referenceRange> </ observation> </component> <component> <observation moodCode= "EVN" classCode="OBS"> <templateId root="216.840.1.676862.10.20.22.4.2 " /> <id nullFlavor="NA" /> <code codeSystem="local" code= "Yym039" displayName="Lym" /> <statusCode code="completed" /> <effectiveTime value="" /> <value unit="K/uL" xsi:type="PQ " value="1.98" /> <referenceRange> <observationRange> <text>0.60-3.40</text> </observationRange> </ referenceRange> </observation> </component> <component> <observation moodCode="EVN" classCode="OBS"> <templateId root= "16.840.1.002121.10.22.4.2" /> <id nullFlavor="NA" /> < code codeSystem="local" code="Ttq351" displayName="Lym%" /> < statusCode code="completed" /> <effectiveTime value="" /> <value unit="%" xsi:type="PQ" value="26.9" /> < referenceRange> <observationRange> <text>10.0-50.0</text > </observationRange> </referenceRange> </observation > </component> <component> <observation moodCode="EVN" classCode="OBS"> <templateId root="16.840.1.282162.10.20.22.4.2" /> <id nullFlavor="NA" /> <code codeSystem="local" code="Res89" displayName="MCH" /> <statusCode code="completed" /> < effectiveTime value="" /> <value unit="pg" xsi:type="PQ" value="22.5" /> <interpretationCode codeSystem="local" code="L" /> <referenceRange> <observationRange> <text>27.0- 31.0</text> </observationRange> </referenceRange> </ observation> </component> <component> <observation moodCode= "EVN" classCode="OBS"> <templateId root="216.840.1.916819.10.20.22.4.2 " /> <id nullFlavor="NA" /> <code codeSystem="local" code= "Res90" displayName="MCHC" /> <statusCode code="completed" /> <effectiveTime value="799790418229" /> <value unit="g/dL" xsi:type="PQ " value="30.6" /> <interpretationCode codeSystem="local" code="L" /> <referenceRange> <observationRange> <text>32.0- 36.0</text> </observationRange> </referenceRange> </ observation> </component> <component> <observation moodCode= "EVN" classCode="OBS"> <templateId root="06.27.840.1.119069.10...4.2 " /> <id nullFlavor="NA" /> <code codeSystem="local" code= "Res88" displayName="MCV" /> <statusCode code="completed" /> < effectiveTime value="195969382874" /> <value unit="fL" xsi:type="PQ" value="73.4" /> <interpretationCode codeSystem="local" code="L" /> <referenceRange> <observationRange> <text>80.0- 97.0</text> </observationRange> </referenceRange> </ observation> </component> <component> <observation moodCode= "EVN" classCode="OBS"> <templateId root="216.840.1.265509.10.20.22.4.2 " /> <id nullFlavor="NA" /> <code codeSystem="local" code= "Rhx491" displayName="[place]%" /> <statusCode code="completed" /> <effectiveTime value="800992519170" /> <value unit="%" xsi: type="PQ" value="7.6" /> <referenceRange> <observationRange > <text>0.0-12.0</text> </observationRange> </ referenceRange> </observation> </component> <component> <observation moodCode="EVN" classCode="OBS"> <templateId root= "2.16.840.1.325482.10.20.22.4.2" /> <id nullFlavor="NA" /> < code codeSystem="local" code="Rwf864" displayName="MPV" /> <statusCode code="completed" /> <effectiveTime value="136518843097" /> < value unit="fL" xsi:type="PQ" value="11.1" /> <interpretationCode codeSystem="local" code="H" /> <referenceRange> < observationRange> <text>7.4-10.0</text> </ observationRange> </referenceRange> </observation> </ component> <component> <observation moodCode="EVN" classCode="OBS"> <templateId root="2.16.840.1.986128.10.20.22.4.2" /> <id nullFlavor="NA" /> <code codeSystem="local" code="Uzn620" displayName= "Julianne%" /> <statusCode code="completed" /> <effectiveTime value="170452006978" /> <value unit="%" xsi:type="PQ" value="60.2" /> <referenceRange> <observationRange> <text> 37.0-80.0</text> </observationRange> </referenceRange> </observation> </component> <component> <observation moodCode="EVN" classCode="OBS"> <templateId root= "216.840.1.111469.10..22.4.2" /> <id nullFlavor="NA" /> < code codeSystem="local" code="Res97" displayName="Plt" /> <statusCode code="completed" /> <effectiveTime value="" /> < value unit="K/uL" xsi:type="PQ" value="222" /> <referenceRange> <observationRange> <text>150-400</text> </ observationRange> </referenceRange> </observation> </ component> <component> <observation moodCode="EVN" classCode="OBS"> <templateId root="216.840.1.002670.02.28.22.4.2" /> <id nullFlavor="NA" /> <code codeSystem="local" code="Wwu085" displayName= "RBC" /> <statusCode code="completed" /> <effectiveTime value= "" /> <value unit="M/uL" xsi:type="PQ" value="4.67" /> <referenceRange> <observationRange> <text>3.60- 5.00</text> </observationRange> </referenceRange> </ observation> </component> <component> <observation moodCode= "EVN" classCode="OBS"> <templateId root="06.27.840.1.315518.10.20.22.4.2 " /> <id nullFlavor="NA" /> <code codeSystem="local" code= "Res91" displayName="RDW" /> <statusCode code="completed" /> < effectiveTime value="" /> <value unit="%" xsi:type="PQ " value="22.7" /> <interpretationCode codeSystem="local" code="H" /> <referenceRange> <observationRange> <text>11.6- 14.8</text> </observationRange> </referenceRange> </ observation> </component> <component> <observation moodCode= "EVN" classCode="OBS"> <templateId root="216.840.1.541225.10.22.4.2 " /> <id nullFlavor="NA" /> <code codeSystem="local" code= "Res98" displayName="WBC" /> <statusCode code="completed" /> < effectiveTime value="" /> <value unit="K/uL" xsi:type="PQ" value="7.36" /> <referenceRange> <observationRange> <text>5.00-10.00</text> </observationRange> </ referenceRange> </observation> </component> <component> <observation moodCode="EVN" classCode="OBS"> <templateId root= "06.27.840.1.449293.02.28.22.4.2" /> <id nullFlavor="NA" /> < code codeSystem="local" code="Res99" displayName="Julianne" /> <statusCode code="completed" /> <effectiveTime value="410178225594" /> < value unit="K/uL" xsi:type="PQ" value="4.43" /> <referenceRange> <observationRange> <text>2.00-6.90</text> </ observationRange> </referenceRange> </observation> </ component> <component> <observation moodCode="EVN" classCode="OBS"> <templateId root="06.27.840.1.105348.10.2022.4.2" /> <id nullFlavor="NA" /> <code codeSystem="local" code="Lin555" displayName= "[place]" /> <statusCode code="completed" /> <effectiveTime value ="579436320537" /> <value unit="K/uL" xsi:type="PQ" value="0.6" /> <referenceRange> <observationRange> <text>0.0-0.9< /text> </observationRange> </referenceRange> </ observation> </component> <component> <observation moodCode= "EVN" classCode="OBS"> <templateId root="840.1.671587.10.22.4.2 " /> <id nullFlavor="NA" /> <code codeSystem="local" code= "Vrk485" displayName="Baso" /> <statusCode code="completed" /> <effectiveTime value="832432015977" /> <value unit="K/uL" xsi:type= "PQ" value="0.1" /> <referenceRange> <observationRange> <text>0.0-0.2</text> </observationRange> </ referenceRange> </observation> </component> </organizer> </entry > <entry> <organizer moodCode="EVN" classCode="BATTERY"> <templateId root="840.1.004733.10..22.4.1" /> <id nullFlavor="NA" /> <code codeSystem="local" code="09687-3" displayName="Complete urinalysis with reflex to culture" /> <statusCode code="completed" /> <component> < observation moodCode="EVN" classCode="OBS"> <templateId root= "840.1.255848.102022.4.2" /> <id nullFlavor="NA" /> < code codeSystem="local" code="5778-6" displayName="Urine color determination" / > <statusCode code="completed" /> <effectiveTime value= "440999852820" /> <value unit="" xsi:type="PQ" value="YELLOW" /> <referenceRange> <observationRange> <text>NRG</text > </observationRange> </referenceRange> </observation > </component> <component> <observation moodCode="EVN" classCode="OBS"> <templateId root="2.16.840.1.568982.10..22.4.2" /> <id nullFlavor="NA" /> <code codeSystem="local" code="03834-8 " displayName="Urine clarity determination" /> <statusCode code= "completed" /> <effectiveTime value="469810901905" /> <value unit="" xsi:type="PQ" value="SLIGHTLY CLOUDY" /> <referenceRange> <observationRange> <text>NRG</text> </ observationRange> </referenceRange> </observation> </ component> <component> <observation moodCode="EVN" classCode="OBS"> <templateId root="216.840.1.233144.10..22.4.2" /> <id nullFlavor="NA" /> <code codeSystem="local" code="5803-2" displayName= "Urine pH measurement by test strip" /> <statusCode code="completed" / > <effectiveTime value="645873563789" /> <value unit="" xsi: type="PQ" value="6.5" /> <referenceRange> <observationRange > <text>5-9</text> </observationRange> </ referenceRange> </observation> </component> <component> <observation moodCode="EVN" classCode="OBS"> <templateId root= "2.16.840.1.594133.10.20.22.4.2" /> <id nullFlavor="NA" /> < code codeSystem="local" code="5811-5" displayName="Specific gravity of urine by test strip" /> <statusCode code="completed" /> <effectiveTime value="284486249593" /> <value unit="" xsi:type="PQ" value="1.020" /> <referenceRange> <observationRange> <text>1.016 -1.022</text> </observationRange> </referenceRange> < /observation> </component> <component> <observation moodCode= "EVN" classCode="OBS"> <templateId root="2.16.840.1.877275.10..22.4.2 " /> <id nullFlavor="NA" /> <code codeSystem="local" code= "23437-5" displayName="Urine protein assay by test strip, semi-quantitative" /> <statusCode code="completed" /> <effectiveTime value= "459325393674" /> <value unit="" xsi:type="PQ" value="NEGATIVE" /> <referenceRange> <observationRange> <text>NEGATIVE </text> </observationRange> </referenceRange> </ observation> </component> <component> <observation moodCode= "EVN" classCode="OBS"> <templateId root="2.16.840.1.035527.10.20.22.4.2 " /> <id nullFlavor="NA" /> <code codeSystem="local" code= "18822-0" displayName="Urine glucose detection by automated test strip" /> <statusCode code="completed" /> <effectiveTime value="642163275809 " /> <value unit="" xsi:type="PQ" value="NEGATIVE" /> < referenceRange> <observationRange> <text>NEGATIVE</text > </observationRange> </referenceRange> </observation > </component> <component> <observation moodCode="EVN" classCode="OBS"> <templateId root="16.840.1.658460.10..22.4.2" /> <id nullFlavor="NA" /> <code codeSystem="local" code="81922-9 " displayName="Erythrocytes detection in urine sediment by light microscopy" /> <statusCode code="completed" /> <effectiveTime value= "397127311198" /> <value unit="" xsi:type="PQ" value="1+" /> < interpretationCode codeSystem="local" code="*" /> <referenceRange> <observationRange> <text>NEGATIVE</text> </ observationRange> </referenceRange> </observation> </ component> <component> <observation moodCode="EVN" classCode="OBS"> <templateId root="06.27.840.1.569333.02.28.22.4.2" /> <id nullFlavor="NA" /> <code codeSystem="local" code="21954-7" displayName= "Urine ketones detection by automated test strip" /> <statusCode code= "completed" /> <effectiveTime value="139591906297" /> <value unit="" xsi:type="PQ" value="NEGATIVE" /> <referenceRange> < observationRange> <text>NEGATIVE</text> </ observationRange> </referenceRange> </observation> </ component> <component> <observation moodCode="EVN" classCode="OBS"> <templateId root="06.27.840.1.885201.10.22.4.2" /> <id nullFlavor="NA" /> <code codeSystem="local" code="5802-4" displayName= "Urine nitrite detection by test strip" /> <statusCode code="completed " /> <effectiveTime value="077445052279" /> <value unit="" xsi :type="PQ" value="NEGATIVE" /> <referenceRange> < observationRange> <text>NEGATIVE</text> </ observationRange> </referenceRange> </observation> </ component> <component> <observation moodCode="EVN" classCode="OBS"> <templateId root="216.840.1.829802.10.20.22.4.2" /> <id nullFlavor="NA" /> <code codeSystem="local" code="5770-3" displayName= "Urine total bilirubin detection by test strip" /> <statusCode code= "completed" /> <effectiveTime value="936498302797" /> <value unit="" xsi:type="PQ" value="NEGATIVE" /> <referenceRange> < observationRange> <text>NEGATIVE</text> </ observationRange> </referenceRange> </observation> </ component> <component> <observation moodCode="EVN" classCode="OBS"> <templateId root="06.27.840.1.344537.10.22.4.2" /> <id nullFlavor="NA" /> <code codeSystem="local" code="93505-6" displayName= "Urine urobilinogen measurement by automated test strip (mass/volume)" /> <statusCode code="completed" /> <effectiveTime value="182189709494 " /> <value unit="" xsi:type="PQ" value="NORMAL" /> < referenceRange> <observationRange> <text>NORMAL</text> </observationRange> </referenceRange> </observation> </component> <component> <observation moodCode="EVN" classCode ="OBS"> <templateId root="16.840.1.993882.10.20.22.4.2" /> < id nullFlavor="NA" /> <code codeSystem="local" code="5799-2" displayName="Urine leukocyte esterase detection by dipstick" /> < statusCode code="completed" /> <effectiveTime value="402890363127" /> <value unit="" xsi:type="PQ" value="NEGATIVE" /> < referenceRange> <observationRange> <text>NEGATIVE</text > </observationRange> </referenceRange> </observation > </component> <component> <observation moodCode="EVN" classCode="OBS"> <templateId root="216.840.1.476036.10..4.2" /> <id nullFlavor="NA" /> <code codeSystem="local" code="22012-7 " displayName="Automated urine sediment erythrocyte count by microscopy (number/ high power field)" /> <statusCode code="completed" /> < effectiveTime value="307317403171" /> <value unit="[HPF]" xsi:type="PQ " value="" /> <referenceRange> <observationRange> <text>NRG</text> </observationRange> </referenceRange> </observation> </component> <component> <observation moodCode="EVN" classCode="OBS"> <templateId root= "16.840.1.004640.10..4.2" /> <id nullFlavor="NA" /> < code codeSystem="local" code="5821-4" displayName="Automated urine sediment leukocyte count by microscopy (number/high power field)" /> < statusCode code="completed" /> <effectiveTime value="645371355955" /> <value unit="" xsi:type="PQ" value="NONE" /> <referenceRange> <observationRange> <text>NRG</text> </ observationRange> </referenceRange> </observation> </ component> <component> <observation moodCode="EVN" classCode="OBS"> <templateId root="216.840.1.660066.02.28.22.4.2" /> <id nullFlavor="NA" /> <code codeSystem="local" code="65420-6" displayName= "Bacteria detection in urine sediment by light microscopy" /> < statusCode code="completed" /> <effectiveTime value="353016749307" /> <value unit="" xsi:type="PQ" value="TRACE" /> <referenceRange > <observationRange> <text>NRG</text> </ observationRange> </referenceRange> </observation> </ component> <component> <observation moodCode="EVN" classCode="OBS"> <templateId root="2.16.840.1.661148.02.28.22.4.2" /> <id nullFlavor="NA" /> <code codeSystem="local" code="72294-5" displayName= "Squamous epithelial cells detection in urine sediment by light microscopy" /> <statusCode code="completed" /> <effectiveTime value= "061401861887" /> <value unit="" xsi:type="PQ" value="5-10" /> <referenceRange> <observationRange> <text>NRG</text> </observationRange> </referenceRange> </observation> </component> <component> <observation moodCode="EVN" classCode ="OBS"> <templateId root="2.16.840.1.065937.02.28.22.4.2" /> < id nullFlavor="NA" /> <code codeSystem="local" code="68266-0" displayName="Crystals detection in urine sediment by light microscopy" /> <statusCode code="completed" /> <effectiveTime value="236737589916 " /> <value unit="" xsi:type="PQ" value="PRESENT" /> < interpretationCode codeSystem="local" code="*" /> <referenceRange> <observationRange> <text>NRG</text> </ observationRange> </referenceRange> </observation> </ component> <component> <observation moodCode="EVN" classCode="OBS"> <templateId root="216.840.1.053519.10.22.4.2" /> <id nullFlavor="NA" /> <code codeSystem="local" code="59085-2" displayName= "Casts detection in urine sediment by light microscopy" /> <statusCode code="completed" /> <effectiveTime value="739379562634" /> < value unit="" xsi:type="PQ" value="NONE" /> <referenceRange> <observationRange> <text>NRG</text> </observationRange > </referenceRange> </observation> </component> < component> <observation moodCode="EVN" classCode="OBS"> < templateId root="2.840.1.734899.10.4.2" /> <id nullFlavor="NA " /> <code codeSystem="local" code="8247-9" displayName="Mucus detection in urine sediment by light microscopy" /> <statusCode code= "completed" /> <effectiveTime value="611421748918" /> <value unit="" xsi:type="PQ" value="SMALL" /> <interpretationCode codeSystem= "local" code="*" /> <referenceRange> <observationRange> <text>NRG</text> </observationRange> </ referenceRange> </observation> </component> <component> <observation moodCode="EVN" classCode="OBS"> <templateId root= "216.840.1.590260.10..4.2" /> <id nullFlavor="NA" /> < code codeSystem="local" code="77153-3" displayName="Complete urinalysis with reflex to culture" /> <statusCode code="completed" /> < effectiveTime value="280273849073" /> <value unit="" xsi:type="PQ" value="NO" /> <referenceRange> <observationRange> <text>NRG</text> </observationRange> </referenceRange> </observation> </component> <component> <observation moodCode="EVN" classCode="OBS"> <templateId root= "06.27.840.1.772960.02.28.22.4.2" /> <id nullFlavor="NA" /> < code codeSystem="local" code="8246-1" displayName="Amorphous sediment detection in urine sediment by light microscopy" /> <statusCode code="completed" /> <effectiveTime value="623054155230" /> <value unit="" xsi: type="PQ" value="FEW RAMIRO URATES" /> <interpretationCode codeSystem= "local" code="*" /> <referenceRange> <observationRange> <text>NRG</text> </observationRange> </ referenceRange> </observation> </component> </organizer> </entry > <entry> <organizer moodCode="EVN" classCode="BATTERY"> <templateId root="16.840.1.993993.10..4.1" /> <id nullFlavor="NA" /> <code codeSystem="local" code="20641-2" displayName="Urine drug screening test" /> <statusCode code="completed" /> <component> <observation moodCode ="EVN" classCode="OBS"> <templateId root= "06.27.840.1.308461.10.4.2" /> <id nullFlavor="NA" /> < code codeSystem="local" code="04737-3" displayName="Urine phencyclidine detection by screening method" /> <statusCode code="completed" /> <effectiveTime value="682568289517" /> <value unit="" xsi:type="PQ " value="NEGATIVE" /> <referenceRange> <observationRange> <text>NEGATIVE</text> </observationRange> </ referenceRange> </observation> </component> <component> <observation moodCode="EVN" classCode="OBS"> <templateId root= "216.840.1.918723.10.22.4.2" /> <id nullFlavor="NA" /> < code codeSystem="local" code="44016-8" displayName="Urine benzodiazepines detection by screening method" /> <statusCode code="completed" /> <effectiveTime value="802323276645" /> <value unit="" xsi:type="PQ " value="NEGATIVE" /> <referenceRange> <observationRange> <text>NEGATIVE</text> </observationRange> </ referenceRange> </observation> </component> <component> <observation moodCode="EVN" classCode="OBS"> <templateId root= "16.840.1.601605.10..4.2" /> <id nullFlavor="NA" /> < code codeSystem="local" code="3397-7" displayName="Urine cocaine detection" /> <statusCode code="completed" /> <effectiveTime value= "983114151554" /> <value unit="" xsi:type="PQ" value="NEGATIVE" /> <referenceRange> <observationRange> <text>NEGATIVE </text> </observationRange> </referenceRange> </ observation> </component> <component> <observation moodCode= "EVN" classCode="OBS"> <templateId root="16.840.1.277556.10.20.22.4.2 " /> <id nullFlavor="NA" /> <code codeSystem="local" code= "52391-8" displayName="Urine amphetamines detection by screening method" /> <statusCode code="completed" /> <effectiveTime value= "068097483784" /> <value unit="" xsi:type="PQ" value="NEGATIVE" /> <referenceRange> <observationRange> <text>NEGATIVE </text> </observationRange> </referenceRange> </ observation> </component> <component> <observation moodCode= "EVN" classCode="OBS"> <templateId root="216.840.1.150004.10..22.4.2 " /> <id nullFlavor="NA" /> <code codeSystem="local" code= "59147-2" displayName="Urine methamphetamine detection by screening method" /> <statusCode code="completed" /> <effectiveTime value= "871764280907" /> <value unit="" xsi:type="PQ" value="NEGATIVE" /> <referenceRange> <observationRange> <text>NEGATIVE </text> </observationRange> </referenceRange> </ observation> </component> <component> <observation moodCode= "EVN" classCode="OBS"> <templateId root="16.840.1.831844.10..22.4.2 " /> <id nullFlavor="NA" /> <code codeSystem="local" code= "59974-4" displayName="Urine cannabinoids detection by screening method" /> <statusCode code="completed" /> <effectiveTime value= "232223128554" /> <value unit="" xsi:type="PQ" value="NEGATIVE" /> <referenceRange> <observationRange> <text>NEGATIVE </text> </observationRange> </referenceRange> </ observation> </component> <component> <observation moodCode= "EVN" classCode="OBS"> <templateId root="216.840.1.905500.10..22.4.2 " /> <id nullFlavor="NA" /> <code codeSystem="local" code= "10513-4" displayName="Urine opiates detection by screening method" /> <statusCode code="completed" /> <effectiveTime value="358811172101" /> <value unit="" xsi:type="PQ" value="NEGATIVE" /> < referenceRange> <observationRange> <text>NEGATIVE</text > </observationRange> </referenceRange> </observation > </component> <component> <observation moodCode="EVN" classCode="OBS"> <templateId root="2.16.840.1.517952.10..22.4.2" /> <id nullFlavor="NA" /> <code codeSystem="local" code="3377-9" displayName="Urine barbiturates detection" /> <statusCode code= "completed" /> <effectiveTime value="181865847852" /> <value unit="" xsi:type="PQ" value="NEGATIVE" /> <referenceRange> < observationRange> <text>NEGATIVE</text> </ observationRange> </referenceRange> </observation> </ component> <component> <observation moodCode="EVN" classCode="OBS"> <templateId root="2.16.840.1.043806.10..22.4.2" /> <id nullFlavor="NA" /> <code codeSystem="local" code="08638-4" displayName= "Screening urine tricyclic antidepressants detection" /> <statusCode code="completed" /> <effectiveTime value="494554989513" /> < value unit="" xsi:type="PQ" value="NEGATIVE" /> <referenceRange> <observationRange> <text>NEGATIVE</text> </ observationRange> </referenceRange> </observation> </ component> <component> <observation moodCode="EVN" classCode="OBS"> <templateId root="216.840.1.111140.10..22.4.2" /> <id nullFlavor="NA" /> <code codeSystem="local" code="01562-9" displayName= "Urine methadone detection by screening method" /> <statusCode code= "completed" /> <effectiveTime value="846373766069" /> <value unit="" xsi:type="PQ" value="NEGATIVE" /> <referenceRange> < observationRange> <text>NEGATIVE</text> </ observationRange> </referenceRange> </observation> </ component> <component> <observation moodCode="EVN" classCode="OBS"> <templateId root="16.840.1.531844.10..4.2" /> <id nullFlavor="NA" /> <code codeSystem="local" code="21819-9" displayName= "Urine oxycodone detection" /> <statusCode code="completed" /> <effectiveTime value="586148660068" /> <value unit="" xsi:type="PQ" value="NEGATIVE" /> <referenceRange> <observationRange> <text>NEGATIVE</text> </observationRange> </ referenceRange> </observation> </component> <component> <observation moodCode="EVN" classCode="OBS"> <templateId root= "06.27.840.1.094061.10.22.4.2" /> <id nullFlavor="NA" /> < code codeSystem="local" code="73112-0" displayName="Urine propoxyphene detection " /> <statusCode code="completed" /> <effectiveTime value= "105759726865" /> <value unit="" xsi:type="PQ" value="NEGATIVE" /> <referenceRange> <observationRange> <text>NEGATIVE </text> </observationRange> </referenceRange> </ observation> </component> </organizer> </entry> <entry> <organizer moodCode="EVN" classCode="BATTERY"> <templateId root= "2.16.840.1.807229.10..22.4.1" /> <id nullFlavor="NA" /> <code codeSystem="local" code="49769-8" displayName="Complete blood count (CBC) with automated white blood cell (WBC) differential" /> <statusCode code= "completed" /> <component> <observation moodCode="EVN" classCode= "OBS"> <templateId root="2.16.840.1.372056.10...4.2" /> < id nullFlavor="NA" /> <code codeSystem="local" code="6690-2" displayName="Blood leukocytes automated count (number/volume)" /> < statusCode code="completed" /> <effectiveTime value="620356344896" /> <value unit="10*3/uL" xsi:type="PQ" value="5.5" /> < referenceRange> <observationRange> <text>4.3-11.0</text > </observationRange> </referenceRange> </observation > </component> <component> <observation moodCode="EVN" classCode="OBS"> <templateId root="2.16.840.1.984472.10..4.2" /> <id nullFlavor="NA" /> <code codeSystem="local" code="789-8" displayName="Blood erythrocytes automated count (number/volume)" /> < statusCode code="completed" /> <effectiveTime value="657073514468" /> <value unit="10*6/uL" xsi:type="PQ" value="4.20" /> < interpretationCode codeSystem="local" code="" /> <referenceRange> <observationRange> <text>4.35-5.85</text> </ observationRange> </referenceRange> </observation> </ component> <component> <observation moodCode="EVN" classCode="OBS"> <templateId root="2.16.840.1.457955.10..22.4.2" /> <id nullFlavor="NA" /> <code codeSystem="local" code="36823-9" displayName= "Venous blood hemoglobin measurement (mass/volume)" /> <statusCode code ="completed" /> <effectiveTime value="978418422361" /> <value unit="g/dL" xsi:type="PQ" value="9.7" /> <interpretationCode codeSystem ="local" code="" /> <referenceRange> <observationRange> <text>11.5-16.0</text> </observationRange> </ referenceRange> </observation> </component> <component> <observation moodCode="EVN" classCode="OBS"> <templateId root= "2.16.840.1.545203.10...4.2" /> <id nullFlavor="NA" /> < code codeSystem="local" code="45390-2" displayName="Blood hematocrit (volume fraction)" /> <statusCode code="completed" /> <effectiveTime value="119933189376" /> <value unit="%" xsi:type="PQ" value="31" / > <interpretationCode codeSystem="local" code="" /> < referenceRange> <observationRange> <text>35-52</text> </observationRange> </referenceRange> </observation> </component> <component> <observation moodCode="EVN" classCode= "OBS"> <templateId root="2.16.840.1.600546.10.20..4.2" /> < id nullFlavor="NA" /> <code codeSystem="local" code="787-2" displayName ="Automated erythrocyte mean corpuscular volume" /> <statusCode code= "completed" /> <effectiveTime value="625012379171" /> <value unit="[foz_us]" xsi:type="PQ" value="74" /> <interpretationCode codeSystem="local" code="" /> <referenceRange> < observationRange> <text>80-99</text> </observationRange > </referenceRange> </observation> </component> < component> <observation moodCode="EVN" classCode="OBS"> < templateId root="2.16.840.1.217054.10...4.2" /> <id nullFlavor="NA " /> <code codeSystem="local" code="785-6" displayName="Automated erythrocyte mean corpuscular hemoglobin (mass per erythrocyte)" /> < statusCode code="completed" /> <effectiveTime value="994023387101" /> <value unit="pg" xsi:type="PQ" value="23" /> < interpretationCode codeSystem="local" code="" /> <referenceRange> <observationRange> <text>25-34</text> </ observationRange> </referenceRange> </observation> </ component> <component> <observation moodCode="EVN" classCode="OBS"> <templateId root="2.16.840.1.959814.10...4.2" /> <id nullFlavor="NA" /> <code codeSystem="local" code="786-4" displayName= "Automated erythrocyte mean corpuscular hemoglobin concentration measurement ( mass/volume)" /> <statusCode code="completed" /> < effectiveTime value="708547040762" /> <value unit="g/dL" xsi:type="PQ" value="31" /> <interpretationCode codeSystem="local" code="" /> <referenceRange> <observationRange> <text>32-36</ text> </observationRange> </referenceRange> </ observation> </component> <component> <observation moodCode= "EVN" classCode="OBS"> <templateId root="2.16.840.1.033213.10...4.2 " /> <id nullFlavor="NA" /> <code codeSystem="local" code="788 -0" displayName="Automated erythrocyte distribution width ratio" /> < statusCode code="completed" /> <effectiveTime value="408106744159" /> <value unit="%" xsi:type="PQ" value="21.6" /> < interpretationCode codeSystem="local" code="" /> <referenceRange> <observationRange> <text>10.0-14.5</text> </ observationRange> </referenceRange> </observation> </ component> <component> <observation moodCode="EVN" classCode="OBS"> <templateId root="216.840.1.391784.10...4.2" /> <id nullFlavor="NA" /> <code codeSystem="local" code="777-3" displayName= "Automated blood platelet count (count/volume)" /> <statusCode code= "completed" /> <effectiveTime value="812006165222" /> <value unit="10*3/uL" xsi:type="PQ" value="181" /> <referenceRange> <observationRange> <text>130-400</text> </ observationRange> </referenceRange> </observation> </ component> <component> <observation moodCode="EVN" classCode="OBS"> <templateId root="216.840.1.214280.20.22.4.2" /> <id nullFlavor="NA" /> <code codeSystem="local" code="67481-2" displayName= "Automated blood platelet mean volume measurement" /> <statusCode code= "completed" /> <effectiveTime value="271686641182" /> <value unit="[[facility]]" xsi:type="PQ" value="11.2" /> <interpretationCode codeSystem="local" code="" /> <referenceRange> < observationRange> <text>7.4-10.4</text> </ observationRange> </referenceRange> </observation> </ component> <component> <observation moodCode="EVN" classCode="OBS"> <templateId root="2.16.840.1.038668.10.20.22.4.2" /> <id nullFlavor="NA" /> <code codeSystem="local" code="770-8" displayName= "Automated blood neutrophils/100 leukocytes" /> <statusCode code= "completed" /> <effectiveTime value="460475803354" /> <value unit="%" xsi:type="PQ" value="51" /> <referenceRange> < observationRange> <text>42-75</text> </observationRange > </referenceRange> </observation> </component> < component> <observation moodCode="EVN" classCode="OBS"> < templateId root="2.16.840.1.597115.10.20.22.4.2" /> <id nullFlavor="NA " /> <code codeSystem="local" code="736-9" displayName="Automated blood lymphocytes/100 leukocytes" /> <statusCode code="completed" /> <effectiveTime value="762801099129" /> <value unit="%" xsi: type="PQ" value="31" /> <referenceRange> <observationRange> <text>12-44</text> </observationRange> </ referenceRange> </observation> </component> <component> <observation moodCode="EVN" classCode="OBS"> <templateId root= "2.16.840.1.867463.10.20.22.4.2" /> <id nullFlavor="NA" /> < code codeSystem="local" code="90802-2" displayName="Blood monocytes/100 leukocytes" /> <statusCode code="completed" /> <effectiveTime value="480627705085" /> <value unit="%" xsi:type="PQ" value="11" / > <referenceRange> <observationRange> <text>0- 12</text> </observationRange> </referenceRange> </ observation> </component> <component> <observation moodCode= "EVN" classCode="OBS"> <templateId root="216.840.1.099991.10..22.4.2 " /> <id nullFlavor="NA" /> <code codeSystem="local" code="713 -8" displayName="Automated blood eosinophils/100 leukocytes" /> < statusCode code="completed" /> <effectiveTime value="363088979622" /> <value unit="%" xsi:type="PQ" value="6" /> <referenceRange > <observationRange> <text>0-10</text> </ observationRange> </referenceRange> </observation> </ component> <component> <observation moodCode="EVN" classCode="OBS"> <templateId root="2.16.840.1.731617.10.20.22.4.2" /> <id nullFlavor="NA" /> <code codeSystem="local" code="706-2" displayName= "Automated blood basophils/100 leukocytes" /> <statusCode code= "completed" /> <effectiveTime value="892892792498" /> <value unit="%" xsi:type="PQ" value="1" /> <referenceRange> < observationRange> <text>0-10</text> </observationRange> </referenceRange> </observation> </component> < component> <observation moodCode="EVN" classCode="OBS"> < templateId root="2.16.840.1.023518.10.2022.4.2" /> <id nullFlavor="NA " /> <code codeSystem="local" code="751-8" displayName="Blood neutrophils automated count (number/volume)" /> <statusCode code= "completed" /> <effectiveTime value="950701049615" /> <value unit="10*3" xsi:type="PQ" value="2.8" /> <referenceRange> < observationRange> <text>1.8-7.8</text> </ observationRange> </referenceRange> </observation> </ component> <component> <observation moodCode="EVN" classCode="OBS"> <templateId root="2.16.840.1.952456.102022.4.2" /> <id nullFlavor="NA" /> <code codeSystem="local" code="731-0" displayName= "Blood lymphocytes automated count (number/volume)" /> <statusCode code ="completed" /> <effectiveTime value="499722988632" /> <value unit="10*3" xsi:type="PQ" value="1.7" /> <referenceRange> < observationRange> <text>1.0-4.0</text> </ observationRange> </referenceRange> </observation> </ component> <component> <observation moodCode="EVN" classCode="OBS"> <templateId root="2.16.840.1.259351..22.4.2" /> <id nullFlavor="NA" /> <code codeSystem="local" code="742-7" displayName= "Blood monocytes automated count (number/volume)" /> <statusCode code= "completed" /> <effectiveTime value="474546855344" /> <value unit="10*3" xsi:type="PQ" value="0.6" /> <referenceRange> < observationRange> <text>0.0-1.0</text> </ observationRange> </referenceRange> </observation> </ component> <component> <observation moodCode="EVN" classCode="OBS"> <templateId root="06.27.840.1.514717.22.4.2" /> <id nullFlavor="NA" /> <code codeSystem="local" code="711-2" displayName= "Automated eosinophil count" /> <statusCode code="completed" /> <effectiveTime value="993474565349" /> <value unit="10*3/uL" xsi: type="PQ" value="0.3" /> <referenceRange> <observationRange > <text>0.0-0.3</text> </observationRange> </ referenceRange> </observation> </component> <component> <observation moodCode="EVN" classCode="OBS"> <templateId root= "06.27.840.1.456610.2022.4.2" /> <id nullFlavor="NA" /> < code codeSystem="local" code="704-7" displayName="Automated blood basophil count (count/volume)" /> <statusCode code="completed" /> < effectiveTime value="154881883337" /> <value unit="10*3/uL" xsi:type= "PQ" value="0.0" /> <referenceRange> <observationRange> <text>0.0-0.1</text> </observationRange> </ referenceRange> </observation> </component> </organizer> </entry > <entry> <organizer moodCode="EVN" classCode="BATTERY"> <templateId root="216.840.1.855460.10.20.22.4.1" /> <id nullFlavor="NA" /> <code codeSystem="local" code="2117-12" displayName="Serum or plasma choriogonadotropin ( test) detection" /> <statusCode code= "completed" /> <component> <observation moodCode="EVN" classCode= "OBS"> <templateId root="06.27.840.1.779249.10..22.4.2" /> < id nullFlavor="NA" /> <code codeSystem="local" code="2117-12" displayName="Serum or plasma choriogonadotropin ( test) detection" /> <statusCode code="completed" /> <effectiveTime value= "200148931456" /> <value unit="" xsi:type="PQ" value="NEGATIVE" /> <referenceRange> <observationRange> <text>NEGATIVE </text> </observationRange> </referenceRange> </ observation> </component> </organizer> </entry> <entry> <organizer moodCode="EVN" classCode="BATTERY"> <templateId root= "06.27.840.1.390083.10..22.4.1" /> <id nullFlavor="NA" /> <code codeSystem="local" code="90195-2" displayName="Comprehensive metabolic panel" / > <statusCode code="completed" /> <component> <observation moodCode="EVN" classCode="OBS"> <templateId root= "06.27.840.1.047413.10..22.4.2" /> <id nullFlavor="NA" /> < code codeSystem="local" code="2951-2" displayName="Serum or plasma sodium measurement (moles/volume)" /> <statusCode code="completed" /> <effectiveTime value="143453445288" /> <value unit="mmol/L" xsi:type= "PQ" value="139" /> <referenceRange> <observationRange> <text>135-145</text> </observationRange> </ referenceRange> </observation> </component> <component> <observation moodCode="EVN" classCode="OBS"> <templateId root= "2.16.840.1.495887.10..22.4.2" /> <id nullFlavor="NA" /> < code codeSystem="local" code="2823-3" displayName="Serum or plasma potassium measurement (moles/volume)" /> <statusCode code="completed" /> <effectiveTime value="635642240668" /> <value unit="mmol/L" xsi:type= "PQ" value="3.5" /> <interpretationCode codeSystem="local" code="" / > <referenceRange> <observationRange> <text>3.6 -5.0</text> </observationRange> </referenceRange> </ observation> </component> <component> <observation moodCode= "EVN" classCode="OBS"> <templateId root="2.16.840.1.899683.10.20.22.4.2 " /> <id nullFlavor="NA" /> <code codeSystem="local" code= "2075-0" displayName="Serum or plasma chloride measurement (moles/volume)" /> <statusCode code="completed" /> <effectiveTime value= "461646942670" /> <value unit="mmol/L" xsi:type="PQ" value="106" /> <referenceRange> <observationRange> <text>98-107< /text> </observationRange> </referenceRange> </ observation> </component> <component> <observation moodCode= "EVN" classCode="OBS"> <templateId root="216.840.1.089036.10.20.22.4.2 " /> <id nullFlavor="NA" /> <code codeSystem="local" code= "2028-01" displayName="Carbon dioxide" /> <statusCode code="completed" / > <effectiveTime value="683210363497" /> <value unit="mmol/L" xsi:type="PQ" value="23" /> <referenceRange> < observationRange> <text>21-32</text> </observationRange > </referenceRange> </observation> </component> < component> <observation moodCode="EVN" classCode="OBS"> < templateId root="06.27.840.1.360396.10...4.2" /> <id nullFlavor="NA " /> <code codeSystem="local" code="23088-0" displayName="Serum or plasma anion gap determination (moles/volume)" /> <statusCode code= "completed" /> <effectiveTime value="803335112171" /> <value unit="mmol/L" xsi:type="PQ" value="10" /> <referenceRange> < observationRange> <text>5-14</text> </observationRange> </referenceRange> </observation> </component> < component> <observation moodCode="EVN" classCode="OBS"> < templateId root="16.840.1.793046.10..22.4.2" /> <id nullFlavor="NA " /> <code codeSystem="local" code="3094-0" displayName="Serum or plasma urea nitrogen measurement (mass/volume)" /> <statusCode code= "completed" /> <effectiveTime value="575364612389" /> <value unit="mg/dL" xsi:type="PQ" value="18" /> <referenceRange> < observationRange> <text>7-18</text> </observationRange> </referenceRange> </observation> </component> < component> <observation moodCode="EVN" classCode="OBS"> < templateId root="2.16.840.1.655860.10...4.2" /> <id nullFlavor="NA " /> <code codeSystem="local" code="2160-0" displayName="Serum or plasma creatinine measurement (mass/volume)" /> <statusCode code= "completed" /> <effectiveTime value="336418464402" /> <value unit="mg/dL" xsi:type="PQ" value="0.75" /> <referenceRange> <observationRange> <text>0.60-1.30</text> </ observationRange> </referenceRange> </observation> </ component> <component> <observation moodCode="EVN" classCode="OBS"> <templateId root="216.840.1.930206.10...4.2" /> <id nullFlavor="NA" /> <code codeSystem="local" code="3097-3" displayName= "Serum or plasma urea nitrogen/creatinine mass ratio" /> <statusCode code="completed" /> <effectiveTime value="156037688323" /> < value unit="" xsi:type="PQ" value="24" /> <referenceRange> < observationRange> <text>NRG</text> </observationRange> </referenceRange> </observation> </component> < component> <observation moodCode="EVN" classCode="OBS"> < templateId root="216.840.1.530511.10..4.2" /> <id nullFlavor="NA " /> <code codeSystem="local" code="22260-4" displayName="Serum or plasma creatinine measurement with calculation of estimated glomerular filtration rate" /> <statusCode code="completed" /> < effectiveTime value="658054179647" /> <value unit="" xsi:type="PQ" value=">" /> <referenceRange> <observationRange> <text>NRG</text> </observationRange> </referenceRange > </observation> </component> <component> <observation moodCode="EVN" classCode="OBS"> <templateId root= "2.16.840.1.033212.10...4.2" /> <id nullFlavor="NA" /> < code codeSystem="local" code="2345-7" displayName="Serum or plasma glucose measurement (mass/volume)" /> <statusCode code="completed" /> <effectiveTime value="251992198787" /> <value unit="mg/dL" xsi:type="PQ " value="90" /> <referenceRange> <observationRange> <text>70-105</text> </observationRange> </ referenceRange> </observation> </component> <component> <observation moodCode="EVN" classCode="OBS"> <templateId root= "2.16.840.1.852437.10..22.4.2" /> <id nullFlavor="NA" /> < code codeSystem="local" code="95896-4" displayName="Serum or plasma calcium measurement (mass/volume)" /> <statusCode code="completed" /> <effectiveTime value="550846353022" /> <value unit="mg/dL" xsi:type="PQ " value="9.0" /> <referenceRange> <observationRange> <text>8.5-10.1</text> </observationRange> </ referenceRange> </observation> </component> <component> <observation moodCode="EVN" classCode="OBS"> <templateId root= "2.16.840.1.315769.10.20.22.4.2" /> <id nullFlavor="NA" /> < code codeSystem="local" code="1974-06" displayName="Serum or plasma total bilirubin measurement (mass/volume)" /> <statusCode code="completed" / > <effectiveTime value="737300822399" /> <value unit="mg/dL" xsi:type="PQ" value="0.3" /> <referenceRange> < observationRange> <text>0.1-1.0</text> </ observationRange> </referenceRange> </observation> </ component> <component> <observation moodCode="EVN" classCode="OBS"> <templateId root="16.840.1.338342.10...4.2" /> <id nullFlavor="NA" /> <code codeSystem="local" code="6768-6" displayName= "Serum or plasma alkaline phosphatase measurement (enzymatic activity/volume)" / > <statusCode code="completed" /> <effectiveTime value= "113356993087" /> <value unit="U/L" xsi:type="PQ" value="67" /> <referenceRange> <observationRange> <text>40-136</ text> </observationRange> </referenceRange> </ observation> </component> <component> <observation moodCode= "EVN" classCode="OBS"> <templateId root="2.16.840.1.019052.10.20.22.4.2 " /> <id nullFlavor="NA" /> <code codeSystem="local" code= "192" displayName="Serum or plasma aspartate aminotransferase measurement ( enzymatic activity/volume)" /> <statusCode code="completed" /> <effectiveTime value="964360991342" /> <value unit="U/L" xsi:type="PQ " value="22" /> <referenceRange> <observationRange> <text>5-34</text> </observationRange> </referenceRange > </observation> </component> <component> <observation moodCode="EVN" classCode="OBS"> <templateId root= "216.840.1.973028.10..22.4.2" /> <id nullFlavor="NA" /> < code codeSystem="local" code="1742-6" displayName="Serum or plasma alanine aminotransferase measurement (enzymatic activity/volume)" /> < statusCode code="completed" /> <effectiveTime value="579267774307" /> <value unit="U/L" xsi:type="PQ" value="22" /> <referenceRange > <observationRange> <text>0-55</text> </ observationRange> </referenceRange> </observation> </ component> <component> <observation moodCode="EVN" classCode="OBS"> <templateId root="16.840.1.478493.10..22.4.2" /> <id nullFlavor="NA" /> <code codeSystem="local" code="2885-2" displayName= "Serum or plasma protein measurement (mass/volume)" /> <statusCode code ="completed" /> <effectiveTime value="183292761222" /> <value unit="g/dL" xsi:type="PQ" value="7.2" /> <referenceRange> < observationRange> <text>6.4-8.2</text> </ observationRange> </referenceRange> </observation> </ component> <component> <observation moodCode="EVN" classCode="OBS"> <templateId root="840.1.558295.10...4.2" /> <id nullFlavor="NA" /> <code codeSystem="local" code="1751-7" displayName= "Serum or plasma albumin measurement (mass/volume)" /> <statusCode code ="completed" /> <effectiveTime value="221223652504" /> <value unit="g/dL" xsi:type="PQ" value="4.2" /> <referenceRange> < observationRange> <text>3.2-4.5</text> </ observationRange> </referenceRange> </observation> </ component> </organizer> </entry> <entry> <organizer moodCode="EVN" classCode="BATTERY"> <templateId root="216.840.1.343249.10..22.4.1" /> <id nullFlavor="NA" /> <code codeSystem="local" code="3040-3" displayName="Lipase" /> <statusCode code="completed" /> <component> <observation moodCode="EVN" classCode="OBS"> <templateId root= "216.840.1.276549.10..22.4.2" /> <id nullFlavor="NA" /> < code codeSystem="local" code="3040-3" displayName="Lipase" /> < statusCode code="completed" /> <effectiveTime value="132265334768" /> <value unit="U/L" xsi:type="PQ" value="42" /> <referenceRange > <observationRange> <text>8-78</text> </ observationRange> </referenceRange> </observation> </ component> </organizer> </entry> <entry> <organizer moodCode="EVN" classCode="BATTERY"> <templateId root="216.840.1.526525.02.28.22.4.1" /> <id nullFlavor="NA" /> <code codeSystem="local" code="5643-2" displayName="Serum or plasma ethanol measurement (mass/volume)" /> < statusCode code="completed" /> <component> <observation moodCode= "EVN" classCode="OBS"> <templateId root="840.1.583335.02.28.22.4.2 " /> <id nullFlavor="NA" /> <code codeSystem="local" code= "5643-2" displayName="Serum or plasma ethanol measurement (mass/volume)" /> <statusCode code="completed" /> <effectiveTime value= "469408636699" /> <value unit="mg/dL" xsi:type="PQ" value="<" /> <referenceRange> <observationRange> <text><10< /text> </observationRange> </referenceRange> </ observation> </component> </organizer> </entry> <entry> <organizer moodCode="EVN" classCode="BATTERY"> <templateId root= "840.1.414680.02.28.22.4.1" /> <id nullFlavor="NA" /> <code codeSystem="local" code="ORD3" displayName="Comprehensive Metabolic Panel" /> <statusCode code="completed" /> <component> <observation moodCode="EVN" classCode="OBS"> <templateId root= "06.27.840.1.111092.10.4.2" /> <id nullFlavor="NA" /> < code codeSystem="local" code="Res44" displayName="Albumin" /> < statusCode code="completed" /> <effectiveTime value="457818694289" /> <value unit="g/dL" xsi:type="PQ" value="3.7" /> < referenceRange> <observationRange> <text>3.6-5.1</text> </observationRange> </referenceRange> </observation > </component> <component> <observation moodCode="EVN" classCode="OBS"> <templateId root="216.840.1.955285.10..22.4.2" /> <id nullFlavor="NA" /> <code codeSystem="local" code="Res45" displayName="ALP" /> <statusCode code="completed" /> < effectiveTime value="" /> <value unit="U/L" xsi:type="PQ" value="60" /> <referenceRange> <observationRange> <text>35-130</text> </observationRange> </referenceRange > </observation> </component> <component> <observation moodCode="EVN" classCode="OBS"> <templateId root= "16.840.1.413139.10.22.4.2" /> <id nullFlavor="NA" /> < code codeSystem="local" code="Res46" displayName="ALT" /> <statusCode code="completed" /> <effectiveTime value="" /> < value unit="U/L" xsi:type="PQ" value="11" /> <referenceRange> <observationRange> <text>6-45</text> </ observationRange> </referenceRange> </observation> </ component> <component> <observation moodCode="EVN" classCode="OBS"> <templateId root="16.840.1.438408.10.22.4.2" /> <id nullFlavor="NA" /> <code codeSystem="local" code="Res61" displayName= "Anion Gap" /> <statusCode code="completed" /> <effectiveTime value="" /> <value unit="" xsi:type="PQ" value="15" /> <interpretationCode codeSystem="local" code="H" /> < referenceRange> <observationRange> <text>6-14</text> </observationRange> </referenceRange> </observation> </component> <component> <observation moodCode="EVN" classCode= "OBS"> <templateId root="16.840.1.605811.1022.4.2" /> < id nullFlavor="NA" /> <code codeSystem="local" code="Res48" displayName ="AST" /> <statusCode code="completed" /> <effectiveTime value ="" /> <value unit="U/L" xsi:type="PQ" value="15" /> <referenceRange> <observationRange> <text>2-40</text > </observationRange> </referenceRange> </observation > </component> <component> <observation moodCode="EVN" classCode="OBS"> <templateId root="06.27.840.1.665075.02.28.22.4.2" /> <id nullFlavor="NA" /> <code codeSystem="local" code="Res26" displayName="BUN" /> <statusCode code="completed" /> < effectiveTime value="" /> <value unit="mg/dL" xsi:type="PQ " value="22" /> <referenceRange> <observationRange> <text>5-25</text> </observationRange> </referenceRange > </observation> </component> <component> <observation moodCode="EVN" classCode="OBS"> <templateId root= "06.27.840.1.257330.10.2022.4.2" /> <id nullFlavor="NA" /> < code codeSystem="local" code="Res5" displayName="Calcium" /> < statusCode code="completed" /> <effectiveTime value="590002273047" /> <value unit="mg/dL" xsi:type="PQ" value="8.8" /> < referenceRange> <observationRange> <text>8.3-10.4</text > </observationRange> </referenceRange> </observation > </component> <component> <observation moodCode="EVN" classCode="OBS"> <templateId root="216.840.1.696963.10.20.22.4.2" /> <id nullFlavor="NA" /> <code codeSystem="local" code="Res21" displayName="Chloride" /> <statusCode code="completed" /> < effectiveTime value="526630624759" /> <value unit="mmol/L" xsi:type="PQ " value="109" /> <referenceRange> <observationRange> <text>95-114</text> </observationRange> </ referenceRange> </observation> </component> <component> <observation moodCode="EVN" classCode="OBS"> <templateId root= "16.840.1.940133.10.20.22.4.2" /> <id nullFlavor="NA" /> < code codeSystem="local" code="Res49" displayName="CO2" /> <statusCode code="completed" /> <effectiveTime value="222710782495" /> < value unit="mEq/L" xsi:type="PQ" value="20" /> <interpretationCode codeSystem="local" code="L" /> <referenceRange> < observationRange> <text>22-33</text> </observationRange > </referenceRange> </observation> </component> < component> <observation moodCode="EVN" classCode="OBS"> < templateId root="2.16.840.1.467901.10.20.22.4.2" /> <id nullFlavor="NA " /> <code codeSystem="local" code="Kqx673" displayName="Creat" /> <statusCode code="completed" /> <effectiveTime value= "996393475482" /> <value unit="mg/dL" xsi:type="PQ" value="0.74" /> <referenceRange> <observationRange> <text>0.50- 1.50</text> </observationRange> </referenceRange> </ observation> </component> <component> <observation moodCode= "EVN" classCode="OBS"> <templateId root="06.27.840.1.880932.10..4.2 " /> <id nullFlavor="NA" /> <code codeSystem="local" code= "Kkm274" displayName="eGFR" /> <statusCode code="completed" /> <effectiveTime value="800204610747" /> <value unit="mL/min/1.73m2" xsi:type="PQ" value="90" /> <referenceRange> < observationRange> <text>>59</text> </observationRange > </referenceRange> </observation> </component> < component> <observation moodCode="EVN" classCode="OBS"> < templateId root="06.27.840.1.261690.1022.4.2" /> <id nullFlavor="NA " /> <code codeSystem="local" code="Res7" displayName="Globulin" /> <statusCode code="completed" /> <effectiveTime value= "479498715143" /> <value unit="g/dL" xsi:type="PQ" value="2.1" /> <interpretationCode codeSystem="local" code="L" /> <referenceRange > <observationRange> <text>2.3-3.5</text> </ observationRange> </referenceRange> </observation> </ component> <component> <observation moodCode="EVN" classCode="OBS"> <templateId root="06.27.840.1.721223.10.22.4.2" /> <id nullFlavor="NA" /> <code codeSystem="local" code="Res60" displayName= "Glucose" /> <statusCode code="completed" /> <effectiveTime value="255793190256" /> <value unit="mg/dL" xsi:type="PQ" value="101" / > <referenceRange> <observationRange> <text>70- 110</text> </observationRange> </referenceRange> </ observation> </component> <component> <observation moodCode= "EVN" classCode="OBS"> <templateId root="840.1.073204.02.28.22.4.2 " /> <id nullFlavor="NA" /> <code codeSystem="local" code= "Res52" displayName="Osmo" /> <statusCode code="completed" /> <effectiveTime value="633806144904" /> <value unit="" xsi:type="PQ" value="294" /> <referenceRange> <observationRange> <text>280-295</text> </observationRange> </ referenceRange> </observation> </component> <component> <observation moodCode="EVN" classCode="OBS"> <templateId root= "06.27.840.1.793066.10.22.4.2" /> <id nullFlavor="NA" /> < code codeSystem="local" code="Res20" displayName="Potassium" /> < statusCode code="completed" /> <effectiveTime value="436795004318" /> <value unit="mmol/L" xsi:type="PQ" value="3.4" /> < interpretationCode codeSystem="local" code="L" /> <referenceRange> <observationRange> <text>3.5-5.3</text> </ observationRange> </referenceRange> </observation> </ component> <component> <observation moodCode="EVN" classCode="OBS"> <templateId root="06.27.840.1.551447.1022.4.2" /> <id nullFlavor="NA" /> <code codeSystem="local" code="Res19" displayName= "Sodium" /> <statusCode code="completed" /> <effectiveTime value="" /> <value unit="mmol/L" xsi:type="PQ" value="141" /> <referenceRange> <observationRange> <text> 134-148</text> </observationRange> </referenceRange> </observation> </component> <component> <observation moodCode= "EVN" classCode="OBS"> <templateId root="06.27.840.1.195153.02.28.22.4.2 " /> <id nullFlavor="NA" /> <code codeSystem="local" code= "Res51" displayName="TBil" /> <statusCode code="completed" /> <effectiveTime value="" /> <value unit="mg/dL" xsi:type="PQ " value="< 0.2" /> <referenceRange> <observationRange> <text /> </observationRange> </referenceRange> </observation> </component> <component> <observation moodCode="EVN" classCode="OBS"> <templateId root= "06.27.840.1.991726.10.2022.4.2" /> <id nullFlavor="NA" /> < code codeSystem="local" code="Res24" displayName="TP" /> <statusCode code="completed" /> <effectiveTime value="636832862642" /> < value unit="g/dL" xsi:type="PQ" value="5.8" /> <interpretationCode codeSystem="local" code="L" /> <referenceRange> < observationRange> <text>6.0-8.3</text> </ observationRange> </referenceRange> </observation> </ component> </organizer> </entry> <entry> <organizer moodCode="EVN" classCode="BATTERY"> <templateId root="216.840.1.564018.10.20.22.4.1" /> <id nullFlavor="NA" /> <code codeSystem="local" code="EHF163" displayName="Folate" /> <statusCode code="completed" /> <component> <observation moodCode="EVN" classCode="OBS"> <templateId root= "216.840.1.185090.10.20.22.4.2" /> <id nullFlavor="NA" /> < code codeSystem="local" code="Jbo279" displayName="Folate" /> < statusCode code="completed" /> <effectiveTime value="379934203975" /> <value unit="ng/mL" xsi:type="PQ" value="9.20" /> < referenceRange> <observationRange> <text>7.00-31.40</ text> </observationRange> </referenceRange> </ observation> </component> </organizer> </entry> <entry> <organizer moodCode="EVN" classCode="BATTERY"> <templateId root= "216.840.1.209365.10.20.22.4.1" /> <id nullFlavor="NA" /> <code codeSystem="local" code="VMP343" displayName="XM 2 LRPC" /> <statusCode code="completed" /> <component> <observation moodCode="EVN" classCode="OBS"> <templateId root="216.840.1.164612.10..4.2" /> <id nullFlavor="NA" /> <code codeSystem="local" code="Qqj479" displayName="CROSSMATCH" /> <statusCode code="completed" /> < effectiveTime value="920682458220" /> <value unit="" xsi:type="PQ" value="COMPATIBLE X 2" /> <referenceRange> <observationRange > <text /> </observationRange> </referenceRange > </observation> </component> <component> <observation moodCode="EVN" classCode="OBS"> <templateId root= "2.840.1.984312.104.2" /> <id nullFlavor="NA" /> < code codeSystem="local" code="Res87" displayName="Hct" /> <statusCode code="completed" /> <effectiveTime value="485191351629" /> < value unit="%" xsi:type="PQ" value="25.8" /> <interpretationCode codeSystem="local" code="L" /> <referenceRange> < observationRange> <text>36.0-46.0</text> </ observationRange> </referenceRange> </observation> </ component> <component> <observation moodCode="EVN" classCode="OBS"> <templateId root="2.840.1.193555.10.22.4.2" /> <id nullFlavor="NA" /> <code codeSystem="local" code="Sav387" displayName= "Hgb" /> <statusCode code="completed" /> <effectiveTime value= "799280897060" /> <value unit="g/dL" xsi:type="PQ" value="7.9" /> <interpretationCode codeSystem="local" code="L" /> <referenceRange > <observationRange> <text>13.0-15.0</text> < /observationRange> </referenceRange> </observation> </ component> </organizer> </entry> <entry> <organizer moodCode="EVN" classCode="BATTERY"> <templateId root="2.16.840.1.909447.10.20.22.4.1" /> <id nullFlavor="NA" /> <code codeSystem="local" code="ORD80" displayName=" Test-Serum" /> <statusCode code="completed" /> <component> <observation moodCode="EVN" classCode="OBS"> < templateId root="2.16.840.1.625609.10..22.4.2" /> <id nullFlavor="NA " /> <code codeSystem="local" code="Res82" displayName="Preg Test-S" / > <statusCode code="completed" /> <effectiveTime value= "288416918205" /> <value unit="" xsi:type="PQ" value="Negative" /> <referenceRange> <observationRange> <text>Negative </text> </observationRange> </referenceRange> </ observation> </component> </organizer> </entry> <entry> <organizer moodCode="EVN" classCode="BATTERY"> <templateId root= "2.16.840.1.915900.10.20.22.4.1" /> <id nullFlavor="NA" /> <code codeSystem="local" code="[id number]" displayName="Leukoreduced Packed RBC Unit Checkout" /> <statusCode code="completed" /> <component> < observation moodCode="EVN" classCode="OBS"> <templateId root= "216.840.1.846263.10...4.2" /> <id nullFlavor="NA" /> < code codeSystem="local" code="Rvk331" displayName="LRPRBC Checkout" /> <statusCode code="completed" /> <effectiveTime value="523024055795" /> <value unit="" xsi:type="PQ" value="Checked Out." /> < referenceRange> <observationRange> <text /> < /observationRange> </referenceRange> </observation> </ component> </organizer> </entry> <entry> <organizer moodCode="EVN" classCode="BATTERY"> <templateId root="216.840.1.434829.10..4.1" /> <id nullFlavor="NA" /> <code codeSystem="local" code="[id number]" displayName="Leukoreduced Packed RBC Unit Checkout" /> <statusCode code= "completed" /> <component> <observation moodCode="EVN" classCode= "OBS"> <templateId root="216.840.1.067095.10..22.4.2" /> < id nullFlavor="NA" /> <code codeSystem="local" code="Wbo225" displayName="LRPRBC Checkout" /> <statusCode code="completed" /> <effectiveTime value="427463832613" /> <value unit="" xsi:type="PQ " value="Checked Out." /> <referenceRange> <observationRange > <text /> </observationRange> </referenceRange > </observation> </component> </organizer> </entry> <entry> <organizer moodCode="EVN" classCode="BATTERY"> <templateId root= "216.840.1.415979.02.28.22.4.1" /> <id nullFlavor="NA" /> <code codeSystem="local" code="ORD4" displayName="BMP" /> <statusCode code= "completed" /> <component> <observation moodCode="EVN" classCode= "OBS"> <templateId root="06.27.840.1.262199.10...4.2" /> < id nullFlavor="NA" /> <code codeSystem="local" code="Res61" displayName ="Anion Gap" /> <statusCode code="completed" /> < effectiveTime value="" /> <value unit="" xsi:type="PQ" value="15" /> <interpretationCode codeSystem="local" code="H" /> <referenceRange> <observationRange> <text>6-14</text > </observationRange> </referenceRange> </observation > </component> <component> <observation moodCode="EVN" classCode="OBS"> <templateId root="840.1.779332.02.28.22.4.2" /> <id nullFlavor="NA" /> <code codeSystem="local" code="Res26" displayName="BUN" /> <statusCode code="completed" /> < effectiveTime value="" /> <value unit="mg/dL" xsi:type="PQ " value="18" /> <referenceRange> <observationRange> <text>5-25</text> </observationRange> </referenceRange > </observation> </component> <component> <observation moodCode="EVN" classCode="OBS"> <templateId root= "06.27.840.1.158221.10..4.2" /> <id nullFlavor="NA" /> < code codeSystem="local" code="Res5" displayName="Calcium" /> < statusCode code="completed" /> <effectiveTime value="" /> <value unit="mg/dL" xsi:type="PQ" value="8.8" /> < referenceRange> <observationRange> <text>8.3-10.4</text > </observationRange> </referenceRange> </observation > </component> <component> <observation moodCode="EVN" classCode="OBS"> <templateId root="06.27.840.1.822407.02.28.22.4.2" /> <id nullFlavor="NA" /> <code codeSystem="local" code="Res21" displayName="Chloride" /> <statusCode code="completed" /> < effectiveTime value="" /> <value unit="mmol/L" xsi:type="PQ " value="110" /> <referenceRange> <observationRange> <text>95-114</text> </observationRange> </ referenceRange> </observation> </component> <component> <observation moodCode="EVN" classCode="OBS"> <templateId root= "840.1.883895.02.28.22.4.2" /> <id nullFlavor="NA" /> < code codeSystem="local" code="Res49" displayName="CO2" /> <statusCode code="completed" /> <effectiveTime value="" /> < value unit="mEq/L" xsi:type="PQ" value="22" /> <referenceRange> <observationRange> <text>22-33</text> </ observationRange> </referenceRange> </observation> </ component> <component> <observation moodCode="EVN" classCode="OBS"> <templateId root="06.27.840.1.519543.1022.4.2" /> <id nullFlavor="NA" /> <code codeSystem="local" code="Ndo876" displayName= "Creat" /> <statusCode code="completed" /> <effectiveTime value="" /> <value unit="mg/dL" xsi:type="PQ" value="0.74" /> <referenceRange> <observationRange> <text> 0.50-1.50</text> </observationRange> </referenceRange> </observation> </component> <component> <observation moodCode="EVN" classCode="OBS"> <templateId root= "2.16.840.1.550911.10..22.4.2" /> <id nullFlavor="NA" /> < code codeSystem="local" code="Kgu997" displayName="eGFR" /> < statusCode code="completed" /> <effectiveTime value="" /> <value unit="mL/min/1.73m2" xsi:type="PQ" value="90" /> < referenceRange> <observationRange> <text>>59</text> </observationRange> </referenceRange> </observation> </component> <component> <observation moodCode="EVN" classCode ="OBS"> <templateId root="2.16.840.1.327974.10..22.4.2" /> < id nullFlavor="NA" /> <code codeSystem="local" code="Res60" displayName ="Glucose" /> <statusCode code="completed" /> <effectiveTime value="" /> <value unit="mg/dL" xsi:type="PQ" value="70" / > <referenceRange> <observationRange> <text>70- 110</text> </observationRange> </referenceRange> </ observation> </component> <component> <observation moodCode= "EVN" classCode="OBS"> <templateId root="16.840.1.100242.10.20.22.4.2 " /> <id nullFlavor="NA" /> <code codeSystem="local" code= "Res52" displayName="Osmo" /> <statusCode code="completed" /> <effectiveTime value="466767300042" /> <value unit="" xsi:type="PQ" value="296" /> <interpretationCode codeSystem="local" code="H" /> <referenceRange> <observationRange> <text>280-295</ text> </observationRange> </referenceRange> </ observation> </component> <component> <observation moodCode= "EVN" classCode="OBS"> <templateId root="06.27.840.1.169294.10..22.4.2 " /> <id nullFlavor="NA" /> <code codeSystem="local" code= "Res20" displayName="Potassium" /> <statusCode code="completed" /> <effectiveTime value="092945202390" /> <value unit="mmol/L" xsi: type="PQ" value="3.6" /> <referenceRange> <observationRange > <text>3.5-5.3</text> </observationRange> </ referenceRange> </observation> </component> <component> <observation moodCode="EVN" classCode="OBS"> <templateId root= "16.840.1.088455.10.20.22.4.2" /> <id nullFlavor="NA" /> < code codeSystem="local" code="Res19" displayName="Sodium" /> < statusCode code="completed" /> <effectiveTime value="936232879137" /> <value unit="mmol/L" xsi:type="PQ" value="143" /> < referenceRange> <observationRange> <text>134-148</text> </observationRange> </referenceRange> </observation > </component> </organizer> </entry> <entry> <organizer moodCode= "EVN" classCode="BATTERY"> <templateId root="216.840.1.381921.10..22.4.1 " /> <id nullFlavor="NA" /> <code codeSystem="local" code="39788-9" displayName="Complete blood count (CBC) with automated white blood cell (WBC) differential" /> <statusCode code="completed" /> <component> < observation moodCode="EVN" classCode="OBS"> <templateId root= "2.16.840.1.954073.10..22.4.2" /> <id nullFlavor="NA" /> < code codeSystem="local" code="6690-2" displayName="Blood leukocytes automated count (number/volume)" /> <statusCode code="completed" /> < effectiveTime value="469426533336" /> <value unit="10*3/uL" xsi:type= "PQ" value="10.1" /> <referenceRange> <observationRange> <text>4.3-11.0</text> </observationRange> </ referenceRange> </observation> </component> <component> <observation moodCode="EVN" classCode="OBS"> <templateId root= "216.840.1.406151.10..22.4.2" /> <id nullFlavor="NA" /> < code codeSystem="local" code="789-8" displayName="Blood erythrocytes automated count (number/volume)" /> <statusCode code="completed" /> < effectiveTime value="507514872439" /> <value unit="10*6/uL" xsi:type= "PQ" value="3.96" /> <interpretationCode codeSystem="local" code="" / > <referenceRange> <observationRange> <text> 4.35-5.85</text> </observationRange> </referenceRange> </observation> </component> <component> <observation moodCode="EVN" classCode="OBS"> <templateId root= "2.16.840.1.194212.10.20.22.4.2" /> <id nullFlavor="NA" /> < code codeSystem="local" code="73484-5" displayName="Venous blood hemoglobin measurement (mass/volume)" /> <statusCode code="completed" /> <effectiveTime value="332030294598" /> <value unit="g/dL" xsi:type="PQ " value="10.6" /> <interpretationCode codeSystem="local" code="" /> <referenceRange> <observationRange> <text>11.5- 16.0</text> </observationRange> </referenceRange> </ observation> </component> <component> <observation moodCode= "EVN" classCode="OBS"> <templateId root="216.840.1.857399..20.22.4.2 " /> <id nullFlavor="NA" /> <code codeSystem="local" code= "62470-9" displayName="Blood hematocrit (volume fraction)" /> < statusCode code="completed" /> <effectiveTime value="862028791849" /> <value unit="%" xsi:type="PQ" value="32" /> < interpretationCode codeSystem="local" code="" /> <referenceRange> <observationRange> <text>35-52</text> </ observationRange> </referenceRange> </observation> </ component> <component> <observation moodCode="EVN" classCode="OBS"> <templateId root="216.840.1.435860.20.22.4.2" /> <id nullFlavor="NA" /> <code codeSystem="local" code="787-2" displayName= "Automated erythrocyte mean corpuscular volume" /> <statusCode code= "completed" /> <effectiveTime value="" /> <value unit="[foz_us]" xsi:type="PQ" value="80" /> <referenceRange> <observationRange> <text>80-99</text> </ observationRange> </referenceRange> </observation> </ component> <component> <observation moodCode="EVN" classCode="OBS"> <templateId root="2.16.840.1.702448.10...4.2" /> <id nullFlavor="NA" /> <code codeSystem="local" code="785-6" displayName= "Automated erythrocyte mean corpuscular hemoglobin (mass per erythrocyte)" /> <statusCode code="completed" /> <effectiveTime value= "888836354499" /> <value unit="pg" xsi:type="PQ" value="27" /> <referenceRange> <observationRange> <text>25-34</text > </observationRange> </referenceRange> </observation > </component> <component> <observation moodCode="EVN" classCode="OBS"> <templateId root="2.16.840.1.230415.10..22.4.2" /> <id nullFlavor="NA" /> <code codeSystem="local" code="786-4" displayName="Automated erythrocyte mean corpuscular hemoglobin concentration measurement (mass/volume)" /> <statusCode code="completed" /> <effectiveTime value="" /> <value unit="g/dL" xsi:type="PQ " value="33" /> <referenceRange> <observationRange> <text>32-36</text> </observationRange> </ referenceRange> </observation> </component> <component> <observation moodCode="EVN" classCode="OBS"> <templateId root= "16.840.1.878366.10.20.22.4.2" /> <id nullFlavor="NA" /> < code codeSystem="local" code="788-0" displayName="Automated erythrocyte distribution width ratio" /> <statusCode code="completed" /> < effectiveTime value="875168096007" /> <value unit="%" xsi:type="PQ " value="22.0" /> <interpretationCode codeSystem="local" code="" /> <referenceRange> <observationRange> <text>10.0- 14.5</text> </observationRange> </referenceRange> </ observation> </component> <component> <observation moodCode= "EVN" classCode="OBS"> <templateId root="06.27.840.1.014423.10.20.22.4.2 " /> <id nullFlavor="NA" /> <code codeSystem="local" code="777 -3" displayName="Automated blood platelet count (count/volume)" /> < statusCode code="completed" /> <effectiveTime value="236654963017" /> <value unit="10*3/uL" xsi:type="PQ" value="313" /> < referenceRange> <observationRange> <text>130-400</text> </observationRange> </referenceRange> </observation > </component> <component> <observation moodCode="EVN" classCode="OBS"> <templateId root="16.840.1.863687.10.20.22.4.2" /> <id nullFlavor="NA" /> <code codeSystem="local" code="36913-1 " displayName="Automated blood platelet mean volume measurement" /> < statusCode code="completed" /> <effectiveTime value="902427577433" /> <value unit="[[facility]]" xsi:type="PQ" value="10.7" /> < interpretationCode codeSystem="local" code="" /> <referenceRange> <observationRange> <text>7.4-10.4</text> </ observationRange> </referenceRange> </observation> </ component> <component> <observation moodCode="EVN" classCode="OBS"> <templateId root="2.16.840.1.864954.10.20.22.4.2" /> <id nullFlavor="NA" /> <code codeSystem="local" code="770-8" displayName= "Automated blood neutrophils/100 leukocytes" /> <statusCode code= "completed" /> <effectiveTime value="156411158454" /> <value unit="%" xsi:type="PQ" value="76" /> <interpretationCode codeSystem ="local" code="" /> <referenceRange> <observationRange> <text>42-75</text> </observationRange> </ referenceRange> </observation> </component> <component> <observation moodCode="EVN" classCode="OBS"> <templateId root= "2.16.840.1.180495.10.20.22.4.2" /> <id nullFlavor="NA" /> < code codeSystem="local" code="736-9" displayName="Automated blood lymphocytes/ 100 leukocytes" /> <statusCode code="completed" /> < effectiveTime value="898638360204" /> <value unit="%" xsi:type="PQ " value="16" /> <referenceRange> <observationRange> <text>12-44</text> </observationRange> </ referenceRange> </observation> </component> <component> <observation moodCode="EVN" classCode="OBS"> <templateId root= "2.16.840.1.982115.10..22.4.2" /> <id nullFlavor="NA" /> < code codeSystem="local" code="81788-8" displayName="Blood monocytes/100 leukocytes" /> <statusCode code="completed" /> <effectiveTime value="204479716870" /> <value unit="%" xsi:type="PQ" value="6" /> <referenceRange> <observationRange> <text>0-12 </text> </observationRange> </referenceRange> </ observation> </component> <component> <observation moodCode= "EVN" classCode="OBS"> <templateId root="2.16.840.1.981359.10..22.4.2 " /> <id nullFlavor="NA" /> <code codeSystem="local" code="713 -8" displayName="Automated blood eosinophils/100 leukocytes" /> < statusCode code="completed" /> <effectiveTime value="242594890195" /> <value unit="%" xsi:type="PQ" value="1" /> <referenceRange > <observationRange> <text>0-10</text> </ observationRange> </referenceRange> </observation> </ component> <component> <observation moodCode="EVN" classCode="OBS"> <templateId root="2.16.840.1.121740.10.20.22.4.2" /> <id nullFlavor="NA" /> <code codeSystem="local" code="706-2" displayName= "Automated blood basophils/100 leukocytes" /> <statusCode code= "completed" /> <effectiveTime value="074002428037" /> <value unit="%" xsi:type="PQ" value="0" /> <referenceRange> < observationRange> <text>0-10</text> </observationRange> </referenceRange> </observation> </component> < component> <observation moodCode="EVN" classCode="OBS"> < templateId root="2.16.840.1.806837.10.20.22.4.2" /> <id nullFlavor="NA " /> <code codeSystem="local" code="751-8" displayName="Blood neutrophils automated count (number/volume)" /> <statusCode code= "completed" /> <effectiveTime value="205240837156" /> <value unit="10*3" xsi:type="PQ" value="7.7" /> <referenceRange> < observationRange> <text>1.8-7.8</text> </ observationRange> </referenceRange> </observation> </ component> <component> <observation moodCode="EVN" classCode="OBS"> <templateId root="16.840.1.728507.10..4.2" /> <id nullFlavor="NA" /> <code codeSystem="local" code="731-0" displayName= "Blood lymphocytes automated count (number/volume)" /> <statusCode code ="completed" /> <effectiveTime value="467942983460" /> <value unit="10*3" xsi:type="PQ" value="1.6" /> <referenceRange> < observationRange> <text>1.0-4.0</text> </ observationRange> </referenceRange> </observation> </ component> <component> <observation moodCode="EVN" classCode="OBS"> <templateId root="216.840.1.930252.10.20.22.4.2" /> <id nullFlavor="NA" /> <code codeSystem="local" code="742-7" displayName= "Blood monocytes automated count (number/volume)" /> <statusCode code= "completed" /> <effectiveTime value="" /> <value unit="10*3" xsi:type="PQ" value="0.6" /> <referenceRange> < observationRange> <text>0.0-1.0</text> </ observationRange> </referenceRange> </observation> </ component> <component> <observation moodCode="EVN" classCode="OBS"> <templateId root="2.16.840.1.420741.10...4.2" /> <id nullFlavor="NA" /> <code codeSystem="local" code="711-2" displayName= "Automated eosinophil count" /> <statusCode code="completed" /> <effectiveTime value="" /> <value unit="10*3/uL" xsi: type="PQ" value="0.1" /> <referenceRange> <observationRange > <text>0.0-0.3</text> </observationRange> </ referenceRange> </observation> </component> <component> <observation moodCode="EVN" classCode="OBS"> <templateId root= "2.16.840.1.638403.10..22.4.2" /> <id nullFlavor="NA" /> < code codeSystem="local" code="704-7" displayName="Automated blood basophil count (count/volume)" /> <statusCode code="completed" /> < effectiveTime value="" /> <value unit="10*3/uL" xsi:type= "PQ" value="0.0" /> <referenceRange> <observationRange> <text>0.0-0.1</text> </observationRange> </ referenceRange> </observation> </component> </organizer> </entry > <entry> <organizer moodCode="EVN" classCode="BATTERY"> <templateId root="2.16.840.1.729494.10.20.22.4.1" /> <id nullFlavor="NA" /> <code codeSystem="local" code="96360-6" displayName="Whole blood basic metabolic panel " /> <statusCode code="completed" /> <component> <observation moodCode="EVN" classCode="OBS"> <templateId root= "2.16.840.1.763393.10.20.22.4.2" /> <id nullFlavor="NA" /> < code codeSystem="local" code="2951-2" displayName="Serum or plasma sodium measurement (moles/volume)" /> <statusCode code="completed" /> <effectiveTime value="292930240208" /> <value unit="mmol/L" xsi:type= "PQ" value="140" /> <referenceRange> <observationRange> <text>135-145</text> </observationRange> </ referenceRange> </observation> </component> <component> <observation moodCode="EVN" classCode="OBS"> <templateId root= "2.16.840.1.308409.10..22.4.2" /> <id nullFlavor="NA" /> < code codeSystem="local" code="2823-3" displayName="Serum or plasma potassium measurement (moles/volume)" /> <statusCode code="completed" /> <effectiveTime value="206886390231" /> <value unit="mmol/L" xsi:type= "PQ" value="3.8" /> <referenceRange> <observationRange> <text>3.6-5.0</text> </observationRange> </ referenceRange> </observation> </component> <component> <observation moodCode="EVN" classCode="OBS"> <templateId root= "2.16.840.1.942851.10..22.4.2" /> <id nullFlavor="NA" /> < code codeSystem="local" code="" displayName="Serum or plasma chloride measurement (moles/volume)" /> <statusCode code="completed" /> <effectiveTime value="029246365189" /> <value unit="mmol/L" xsi:type= "PQ" value="107" /> <referenceRange> <observationRange> <text>98-107</text> </observationRange> </ referenceRange> </observation> </component> <component> <observation moodCode="EVN" classCode="OBS"> <templateId root= "216.840.1.865786.10..22.4.2" /> <id nullFlavor="NA" /> < code codeSystem="local" code="2028-01" displayName="Carbon dioxide" /> < statusCode code="completed" /> <effectiveTime value="772104960630" /> <value unit="mmol/L" xsi:type="PQ" value="25" /> < referenceRange> <observationRange> <text>21-32</text> </observationRange> </referenceRange> </observation> </component> <component> <observation moodCode="EVN" classCode= "OBS"> <templateId root="2.16.840.1.230325.10..22.4.2" /> < id nullFlavor="NA" /> <code codeSystem="local" code="37015-6" displayName="Serum or plasma anion gap determination (moles/volume)" /> <statusCode code="completed" /> <effectiveTime value="472459976948" / > <value unit="mmol/L" xsi:type="PQ" value="8" /> < referenceRange> <observationRange> <text>5-14</text> </observationRange> </referenceRange> </observation> </component> <component> <observation moodCode="EVN" classCode= "OBS"> <templateId root="2.16.840.1.542587.10.20.22.4.2" /> < id nullFlavor="NA" /> <code codeSystem="local" code="3094-0" displayName="Serum or plasma urea nitrogen measurement (mass/volume)" /> <statusCode code="completed" /> <effectiveTime value="226962822569" /> <value unit="mg/dL" xsi:type="PQ" value="15" /> < referenceRange> <observationRange> <text>7-18</text> </observationRange> </referenceRange> </observation> </component> <component> <observation moodCode="EVN" classCode= "OBS"> <templateId root="2.16.840.1.344866.10..22.4.2" /> < id nullFlavor="NA" /> <code codeSystem="local" code="2160-0" displayName="Serum or plasma creatinine measurement (mass/volume)" /> < statusCode code="completed" /> <effectiveTime value="463532881845" /> <value unit="mg/dL" xsi:type="PQ" value="0.72" /> < referenceRange> <observationRange> <text>0.60-1.30</text > </observationRange> </referenceRange> </observation > </component> <component> <observation moodCode="EVN" classCode="OBS"> <templateId root="2.16.840.1.937181.10.20.22.4.2" /> <id nullFlavor="NA" /> <code codeSystem="local" code="3097-3" displayName="Serum or plasma urea nitrogen/creatinine mass ratio" /> < statusCode code="completed" /> <effectiveTime value="541537417937" /> <value unit="" xsi:type="PQ" value="21" /> <referenceRange> <observationRange> <text>NRG</text> </ observationRange> </referenceRange> </observation> </ component> <component> <observation moodCode="EVN" classCode="OBS"> <templateId root="2.16.840.1.029524.10.20.22.4.2" /> <id nullFlavor="NA" /> <code codeSystem="local" code="14574-1" displayName= "Serum or plasma creatinine measurement with calculation of estimated glomerular filtration rate" /> <statusCode code="completed" /> <effectiveTime value="243909890250" /> <value unit="" xsi:type="PQ" value=">" /> <referenceRange> <observationRange> <text>NRG</text> </observationRange> </referenceRange > </observation> </component> <component> <observation moodCode="EVN" classCode="OBS"> <templateId root= "2.16.840.1.460283.10.20.22.4.2" /> <id nullFlavor="NA" /> < code codeSystem="local" code="2345-7" displayName="Serum or plasma glucose measurement (mass/volume)" /> <statusCode code="completed" /> <effectiveTime value="553362639825" /> <value unit="mg/dL" xsi:type="PQ " value="82" /> <referenceRange> <observationRange> <text>70-105</text> </observationRange> </ referenceRange> </observation> </component> <component> <observation moodCode="EVN" classCode="OBS"> <templateId root= "2.16.840.1.534774.10.20.22.4.2" /> <id nullFlavor="NA" /> < code codeSystem="local" code="66389-0" displayName="Serum or plasma calcium measurement (mass/volume)" /> <statusCode code="completed" /> <effectiveTime value="105292624029" /> <value unit="mg/dL" xsi:type="PQ " value="9.6" /> <referenceRange> <observationRange> <text>8.5-10.1</text> </observationRange> </ referenceRange> </observation> </component> </organizer> </entry > <entry> <organizer moodCode="EVN" classCode="BATTERY"> <templateId root="2.16.840.1.695171.10.20.22.4.1" /> <id nullFlavor="NA" /> <code codeSystem="local" code="2117-12" displayName="Serum or plasma choriogonadotropin ( test) detection" /> <statusCode code= "completed" /> <component> <observation moodCode="EVN" classCode= "OBS"> <templateId root="2.16.840.1.014274.10.20.22.4.2" /> < id nullFlavor="NA" /> <code codeSystem="local" code="2117-12" displayName="Serum or plasma choriogonadotropin ( test) detection" /> <statusCode code="completed" /> <effectiveTime value= "731112740392" /> <value unit="" xsi:type="PQ" value="NEGATIVE" /> <referenceRange> <observationRange> <text>NEGATIVE </text> </observationRange> </referenceRange> </ observation> </component> </organizer> </entry> <entry> <organizer moodCode="EVN" classCode="BATTERY"> <templateId root= "16.840.1.014786.10..22.4.1" /> <id nullFlavor="NA" /> <code codeSystem="local" code="600-7" displayName="Bacterial blood culture" /> < statusCode code="completed" /> <component> <observation moodCode= "EVN" classCode="OBS"> <templateId root="840.1.942596.02.28.22.4.2 " /> <id nullFlavor="NA" /> <code codeSystem="local" code="600 -7" displayName="Bacterial blood culture" /> <statusCode code= "completed" /> <effectiveTime value="330859898081" /> <value unit="" xsi:type="PQ" value="NG" /> <referenceRange> < observationRange> <text>NRG</text> </observationRange> </referenceRange> </observation> </component> </ organizer> </entry> <entry> <organizer moodCode="EVN" classCode="BATTERY"> <templateId root="840.1.243339.02.28.22.4.1" /> <id nullFlavor= "NA" /> <code codeSystem="local" code="49004-5" displayName="Methicillin resistant Staphylococcus aureus (MRSA) screening culture" /> <statusCode code="completed" /> <component> <observation moodCode="EVN" classCode="OBS"> <templateId root="06.27.840.1.558754.10...4.2" /> <id nullFlavor="NA" /> <code codeSystem="local" code="MRSARES " displayName="MRSA SCREEN RESULT" /> <statusCode code="completed" /> <effectiveTime value="299862058477" /> <value unit="" xsi:type ="PQ" value="MRSA ISOLATED" /> <interpretationCode codeSystem="local" code="*" /> <referenceRange> <observationRange> <text>NRG</text> </observationRange> </referenceRange> </observation> </component> </organizer> </entry> <entry> < organizer moodCode="EVN" classCode="BATTERY"> <templateId root= "16.840.1.826253.10..22.4.1" /> <id nullFlavor="NA" /> <code codeSystem="local" code="600-7" displayName="Bacterial blood culture" /> < statusCode code="completed" /> <component> <observation moodCode= "EVN" classCode="OBS"> <templateId root="216.840.1.641833.10..22.4.2 " /> <id nullFlavor="NA" /> <code codeSystem="local" code="600 -7" displayName="Bacterial blood culture" /> <statusCode code= "completed" /> <effectiveTime value="198795838700" /> <value unit="" xsi:type="PQ" value="NG" /> <referenceRange> < observationRange> <text>NRG</text> </observationRange> </referenceRange> </observation> </component> </ organizer> </entry> <entry> <organizer moodCode="EVN" classCode="BATTERY"> <templateId root="16.840.1.017705.10..22.4.1" /> <id nullFlavor= "NA" /> <code codeSystem="local" code="03797-5" displayName="Urine drug screening test" /> <statusCode code="completed" /> <component> <observation moodCode="EVN" classCode="OBS"> <templateId root= "06.27.840.1.211954.10..22.4.2" /> <id nullFlavor="NA" /> < code codeSystem="local" code="66018-2" displayName="Urine phencyclidine detection by screening method" /> <statusCode code="completed" /> <effectiveTime value="" /> <value unit="" xsi:type="PQ " value="NEGATIVE" /> <referenceRange> <observationRange> <text>NEGATIVE</text> </observationRange> </ referenceRange> </observation> </component> <component> <observation moodCode="EVN" classCode="OBS"> <templateId root= "216.840.1.816539.10..22.4.2" /> <id nullFlavor="NA" /> < code codeSystem="local" code="72285-5" displayName="Urine benzodiazepines detection by screening method" /> <statusCode code="completed" /> <effectiveTime value="" /> <value unit="" xsi:type="PQ " value="NEGATIVE" /> <referenceRange> <observationRange> <text>NEGATIVE</text> </observationRange> </ referenceRange> </observation> </component> <component> <observation moodCode="EVN" classCode="OBS"> <templateId root= "216.840.1.265756.10..22.4.2" /> <id nullFlavor="NA" /> < code codeSystem="local" code="3397-7" displayName="Urine cocaine detection" /> <statusCode code="completed" /> <effectiveTime value= "" /> <value unit="" xsi:type="PQ" value="NEGATIVE" /> <referenceRange> <observationRange> <text>NEGATIVE </text> </observationRange> </referenceRange> </ observation> </component> <component> <observation moodCode= "EVN" classCode="OBS"> <templateId root="2.16.840.1.089112.10..22.4.2 " /> <id nullFlavor="NA" /> <code codeSystem="local" code= "88166-2" displayName="Urine amphetamines detection by screening method" /> <statusCode code="completed" /> <effectiveTime value= "" /> <value unit="" xsi:type="PQ" value="POSITIVE" /> <interpretationCode codeSystem="local" code="*" /> < referenceRange> <observationRange> <text>NEGATIVE</text > </observationRange> </referenceRange> </observation > </component> <component> <observation moodCode="EVN" classCode="OBS"> <templateId root="216.840.1.142486.10..4.2" /> <id nullFlavor="NA" /> <code codeSystem="local" code="83739-3 " displayName="Urine methamphetamine detection by screening method" /> <statusCode code="completed" /> <effectiveTime value="" /> <value unit="" xsi:type="PQ" value="NEGATIVE" /> < referenceRange> <observationRange> <text>NEGATIVE</text > </observationRange> </referenceRange> </observation > </component> <component> <observation moodCode="EVN" classCode="OBS"> <templateId root="2.16.840.1.234818.10..22.4.2" /> <id nullFlavor="NA" /> <code codeSystem="local" code="37098-0 " displayName="Urine cannabinoids detection by screening method" /> < statusCode code="completed" /> <effectiveTime value="" /> <value unit="" xsi:type="PQ" value="POSITIVE" /> < interpretationCode codeSystem="local" code="*" /> <referenceRange> <observationRange> <text>NEGATIVE</text> </ observationRange> </referenceRange> </observation> </ component> <component> <observation moodCode="EVN" classCode="OBS"> <templateId root="216.840.1.629816.10..22.4.2" /> <id nullFlavor="NA" /> <code codeSystem="local" code="66706-6" displayName= "Urine opiates detection by screening method" /> <statusCode code= "completed" /> <effectiveTime value="" /> <value unit="" xsi:type="PQ" value="NEGATIVE" /> <referenceRange> < observationRange> <text>NEGATIVE</text> </ observationRange> </referenceRange> </observation> </ component> <component> <observation moodCode="EVN" classCode="OBS"> <templateId root="06.27.840.1.415449.10.22.4.2" /> <id nullFlavor="NA" /> <code codeSystem="local" code="3377-9" displayName= "Urine barbiturates detection" /> <statusCode code="completed" /> <effectiveTime value="" /> <value unit="" xsi:type="PQ " value="NEGATIVE" /> <referenceRange> <observationRange> <text>NEGATIVE</text> </observationRange> </ referenceRange> </observation> </component> <component> <observation moodCode="EVN" classCode="OBS"> <templateId root= "216.840.1.750752.10.20.22.4.2" /> <id nullFlavor="NA" /> < code codeSystem="local" code="" displayName="Screening urine tricyclic antidepressants detection" /> <statusCode code="completed" /> <effectiveTime value="" /> <value unit="" xsi:type="PQ" value="NEGATIVE" /> <referenceRange> <observationRange> <text>NEGATIVE</text> </observationRange> </ referenceRange> </observation> </component> <component> <observation moodCode="EVN" classCode="OBS"> <templateId root= "216.840.1.006434.10..22.4.2" /> <id nullFlavor="NA" /> < code codeSystem="local" code="99157-0" displayName="Urine methadone detection by screening method" /> <statusCode code="completed" /> < effectiveTime value="" /> <value unit="" xsi:type="PQ" value="NEGATIVE" /> <referenceRange> <observationRange> <text>NEGATIVE</text> </observationRange> </ referenceRange> </observation> </component> <component> <observation moodCode="EVN" classCode="OBS"> <templateId root= "16.840.1.202963.10..22.4.2" /> <id nullFlavor="NA" /> < code codeSystem="local" code="52410-2" displayName="Urine oxycodone detection" / > <statusCode code="completed" /> <effectiveTime value= "" /> <value unit="" xsi:type="PQ" value="NEGATIVE" /> <referenceRange> <observationRange> <text>NEGATIVE </text> </observationRange> </referenceRange> </ observation> </component> <component> <observation moodCode= "EVN" classCode="OBS"> <templateId root="216.840.1.545033.10.4.2 " /> <id nullFlavor="NA" /> <code codeSystem="local" code= "89405-3" displayName="Urine propoxyphene detection" /> <statusCode code="completed" /> <effectiveTime value="912661492113" /> < value unit="" xsi:type="PQ" value="NEGATIVE" /> <referenceRange> <observationRange> <text>NEGATIVE</text> </ observationRange> </referenceRange> </observation> </ component> </organizer> </entry> <entry> <organizer moodCode="EVN" classCode="BATTERY"> <templateId root="2.16.840.1.069034.10..4.1" /> <id nullFlavor="NA" /> <code codeSystem="local" code="30505-5" displayName="Bacteria identification in isolate by anaerobe culture" /> < statusCode code="completed" /> <component> <observation moodCode= "EVN" classCode="OBS"> <templateId root="2.16.840.1.145338.10...4.2 " /> <id nullFlavor="NA" /> <code codeSystem="local" code= "87501-5" displayName="Bacteria identification in isolate by anaerobe culture" / > <statusCode code="completed" /> <effectiveTime value= "334127492976" /> <value unit="" xsi:type="PQ" value="NOANA" /> <referenceRange> <observationRange> <text>NRG</text> </observationRange> </referenceRange> </observation > </component> </organizer> </entry> <entry> <organizer moodCode= "EVN" classCode="BATTERY"> <templateId root="216.840.1.413650.10..22.4.1 " /> <id nullFlavor="NA" /> <code codeSystem="local" code="664-3" displayName="Gram stain microscopy" /> <statusCode code="completed" /> <component> <observation moodCode="EVN" classCode="OBS"> < templateId root="16.840.1.498949.10.20.22.4.2" /> <id nullFlavor="NA " /> <code codeSystem="local" code="664-3" displayName="Gram stain microscopy" /> <statusCode code="completed" /> <effectiveTime value="120837732789" /> <value unit="" xsi:type="PQ" value="REPORTED ,604." /> <referenceRange> <observationRange> <text>NRG</text> </observationRange> </ referenceRange> </observation> </component> </organizer> </entry > <entry> <organizer moodCode="EVN" classCode="BATTERY"> <templateId root="16.840.1.779665.10.20.22.4.1" /> <id nullFlavor="NA" /> <code codeSystem="local" code="6462-6" displayName="Bacteria identification in wound by culture" /> <statusCode code="completed" /> <component> < observation moodCode="EVN" classCode="OBS"> <templateId root= "16.840.1.866133.10..22.4.2" /> <id nullFlavor="NA" /> < code codeSystem="local" code="6462-6" displayName="Bacteria identification in wound by culture" /> <statusCode code="completed" /> < effectiveTime value="418938997245" /> <value unit="" xsi:type="PQ" value="SEE REPORT" /> <referenceRange> <observationRange> <text>NRG</text> </observationRange> </ referenceRange> </observation> </component> <component> <observation moodCode="EVN" classCode="OBS"> <templateId root= "06.27.840.1.802409.10.22.4.2" /> <id nullFlavor="NA" /> < code codeSystem="local" code="FTEXTERNAL" displayName="FREE TEXT EXTERNAL" /> <statusCode code="completed" /> <effectiveTime value= "071312234279" /> <value unit="" xsi:type="PQ" value="METHICILLIN- RESISTANT STAPH AUREUS" /> <referenceRange> < observationRange> <text>NRG</text> </observationRange> </referenceRange> </observation> </component> < component> <observation moodCode="EVN" classCode="OBS"> < templateId root="06.27.840.1.482040.02.28.22.4.2" /> <id nullFlavor="NA " /> <code codeSystem="local" code="G" displayName="QUANTITY OF GROWTH " /> <statusCode code="completed" /> <effectiveTime value= "269205013159" /> <value unit="" xsi:type="PQ" value="." /> < referenceRange> <observationRange> <text>NRG</text> </observationRange> </referenceRange> </observation> </component> </organizer> </entry> <entry> <organizer moodCode="EVN" classCode="BATTERY"> <templateId root="16.840.1.609361.10..22.4.1" /> <id nullFlavor="NA" /> <code codeSystem="local" code="RML-SENS" displayName="RML Sensitivity Panel" /> <statusCode code="completed" /> <component> <observation moodCode="EVN" classCode="OBS"> < templateId root="840.1.736470.10.20.22.4.2" /> <id nullFlavor="NA " /> <code codeSystem="local" code="383-0" displayName="Oxacillin susceptibility test by minimum inhibitory concentration" /> < statusCode code="completed" /> <effectiveTime value="360322253687" /> <value unit="" xsi:type="PQ" value="R" /> <interpretationCode codeSystem="local" code="*" /> <referenceRange> < observationRange> <text>NRG</text> </observationRange> </referenceRange> </observation> </component> < component> <observation moodCode="EVN" classCode="OBS"> < templateId root="840.1.261432.10.22.4.2" /> <id nullFlavor="NA " /> <code codeSystem="local" code="193-3" displayName="Clindamycin susceptibility test by minimum inhibitory concentration" /> < statusCode code="completed" /> <effectiveTime value="302749590420" /> <value unit="" xsi:type="PQ" value="<=" /> < interpretationCode codeSystem="local" code="*" /> <referenceRange> <observationRange> <text>NRG</text> </ observationRange> </referenceRange> </observation> </ component> <component> <observation moodCode="EVN" classCode="OBS"> <templateId root="06.27.840.1.165940.10.20.22.4.2" /> <id nullFlavor="NA" /> <code codeSystem="local" code="233-7" displayName= "Erythromycin susceptibility test by minimum inhibitory concentration" /> <statusCode code="completed" /> <effectiveTime value="005689210632 " /> <value unit="" xsi:type="PQ" value=">" /> < interpretationCode codeSystem="local" code="*" /> <referenceRange> <observationRange> <text>NRG</text> </ observationRange> </referenceRange> </observation> </ component> <component> <observation moodCode="EVN" classCode="OBS"> <templateId root="216.840.1.831217....4.2" /> <id nullFlavor="NA" /> <code codeSystem="local" code="516-5" displayName= "Trimethoprim/sulfamethoxazole susceptibility test by minimum inhibitoryconcentration" /> <statusCode code="completed" /> < effectiveTime value="794964217993" /> <value unit="" xsi:type="PQ" value="S" /> <interpretationCode codeSystem="local" code="*" /> <referenceRange> <observationRange> <text>NRG</text> </observationRange> </referenceRange> </observation > </component> <component> <observation moodCode="EVN" classCode="OBS"> <templateId root="16.840.1.099935.02.28.22.4.2" /> <id nullFlavor="NA" /> <code codeSystem="local" code="524-9" displayName="Vancomycin susceptibility test by minimum inhibitory concentration " /> <statusCode code="completed" /> <effectiveTime value= "409281653534" /> <value unit="" xsi:type="PQ" value="1" /> < interpretationCode codeSystem="local" code="*" /> <referenceRange> <observationRange> <text>NRG</text> </ observationRange> </referenceRange> </observation> </ component> <component> <observation moodCode="EVN" classCode="OBS"> <templateId root="16.840.1.401774.10.2022.4.2" /> <id nullFlavor="NA" /> <code codeSystem="local" code="65024-4" displayName= "Levofloxacin susceptibility test by minimum inhibitory concentration" /> <statusCode code="completed" /> <effectiveTime value="102355969490 " /> <value unit="" xsi:type="PQ" value="4" /> < interpretationCode codeSystem="local" code="*" /> <referenceRange> <observationRange> <text>NRG</text> </ observationRange> </referenceRange> </observation> </ component> <component> <observation moodCode="EVN" classCode="OBS"> <templateId root="06.27.840.1.377008.1022.4.2" /> <id nullFlavor="NA" /> <code codeSystem="local" code="428-3" displayName= "Rifampin susceptibility test by minimum inhibitory concentration" /> < statusCode code="completed" /> <effectiveTime value="352377642537" /> <value unit="" xsi:type="PQ" value="<=" /> < interpretationCode codeSystem="local" code="*" /> <referenceRange> <observationRange> <text>NRG</text> </ observationRange> </referenceRange> </observation> </ component> <component> <observation moodCode="EVN" classCode="OBS"> <templateId root="06.27.840.1.568282.10.2022.4.2" /> <id nullFlavor="NA" /> <code codeSystem="local" code="76-0" displayName= "Cefazolin susceptibility test by minimum inhibitory concentration" /> <statusCode code="completed" /> <effectiveTime value="306493112997" /> <value unit="" xsi:type="PQ" value=">" /> < interpretationCode codeSystem="local" code="*" /> <referenceRange> <observationRange> <text>NRG</text> </ observationRange> </referenceRange> </observation> </ component> <component> <observation moodCode="EVN" classCode="OBS"> <templateId root="06.27.840.1.316757.10.20.22.4.2" /> <id nullFlavor="NA" /> <code codeSystem="local" code="12439-0" displayName= "Linezolid susceptibility test by minimum inhibitory concentration" /> <statusCode code="completed" /> <effectiveTime value="781236809604" /> <value unit="" xsi:type="PQ" value="2" /> < interpretationCode codeSystem="local" code="*" /> <referenceRange> <observationRange> <text>NRG</text> </ observationRange> </referenceRange> </observation> </ component> <component> <observation moodCode="EVN" classCode="OBS"> <templateId root="06.27.840.1.122773.02.28.22.4.2" /> <id nullFlavor="NA" /> <code codeSystem="local" code="392-1" displayName= "Penicillin G susceptibility test by minimum inhibitory concentration" /> <statusCode code="completed" /> <effectiveTime value="866654403636 " /> <value unit="" xsi:type="PQ" value=">" /> < interpretationCode codeSystem="local" code="*" /> <referenceRange> <observationRange> <text>NRG</text> </ observationRange> </referenceRange> </observation> </ component> <component> <observation moodCode="EVN" classCode="OBS"> <templateId root="06.27.840.1.242161.10.22.4.2" /> <id nullFlavor="NA" /> <code codeSystem="local" code="37861-5" displayName= "Moxifloxacin susceptibility test by minimum inhibitory concentration" /> <statusCode code="completed" /> <effectiveTime value="051259317750 " /> <value unit="" xsi:type="PQ" value="S" /> < interpretationCode codeSystem="local" code="*" /> <referenceRange> <observationRange> <text>NRG</text> </ observationRange> </referenceRange> </observation> </ component> <component> <observation moodCode="EVN" classCode="OBS"> <templateId root="2.16.840.1.250912.10.20.22.4.2" /> <id nullFlavor="NA" /> <code codeSystem="local" code="335-0" displayName= "Minocycline susc SHAYNA" /> <statusCode code="completed" /> < effectiveTime value="791064044704" /> <value unit="" xsi:type="PQ" value="<=" /> <interpretationCode codeSystem="local" code="*" /> <referenceRange> <observationRange> <text>NRG</ text> </observationRange> </referenceRange> </ observation> </component> </organizer> </entry></section> Encounters ACCT No. Visit Date/Time Discharge Status Pt. Type Provider Facility Loc./Unit Complaint [id number] 11/09/2016 16:32:00 11/09/2016 16:58:00 DIS Emergency Secrist DO [facility] WRolandoED [id number] 09/06/2016 12:52:00 09/06/2016 16:30:00 DIS Emergency Secrist [facility] WFLOR [id number] 07/31/2016 16:36:00 07/31/2016 16:56:00 DIS Emergency Kirt DO, [facility] [id number] 01/11/2016 08:16:00 01/11/2016 08:47:00 DIS Emergency Marc TA, [facility].EDW [id number] 12/28/2015 19:32:00 12/28/2015 20:25:00 [id number] 11/28/2015 08:04:00 11/28/2015 08:30:00 DIS Emergency Jesica TA, Leon Shelley [facility].EDW [id number] 01/04/2015 09:52:00 01/04/2015 13:04:00 DIS Emergency Natanael SANTACRUZ [facility] W.HANNAH [id number] 01/01/2015 09:22:00 01/01/2015 12:40:00 DIS Emergency SecrisColt jackson DO [facility].EDW [id number] 12/27/2014 21:37:00 12/27/2014 23:13:00 DIS Emergency Marc TA, [facility] W.EDW [id number] 09/17/2014 10:42:00 09/17/2014 11:10:00 [id number]2017 08:00:00 11/26/2017 23:59:59 CLS Outpatient ISHA JAMES [facility] [id number] 11/19/2017 20:04:00 11/20/2017 13:40:00 DIS Outpatient Leon Naik [facility] MED-SURG [id number] 03/31/2017 12:56:00 03/31/2017 23:59:00 DIS Outpatient Roxy Moon [id number] 03/27/2017 21:26:00 03/28/2017 18:20:00 DIS Outpatient Daniel Joseph [facility] MED-SURG [id number] 03/27/2017 23:46:04 Document Registration [id number] 01/29/2018 12:54:00 01/29/2018 19:55:00 DIS [facility] [id number] 12/01/2017 17:13:00 12/01/2017 18:01:00 DIS Outpatient IRISH ECKERT [facility] L HAND INJ [id number] 05/29/2017 02:30:00 05/29/2017 06:20:00 DIS Emergency KENDRA TA, SHIRLENE Jackson [facility] ER LEFT SIDE ABD PAIN [id number] 11/19/2017 20:04:00 Document Registration
[2018-03-19] MEDS ORDERED: ACETAMINOPHEN 500 MG TAB (TYLENOL) PO PRN ×2 (16:15→18:00)
[2018-03-19] MEDS: NS IV 1000 ML 1,000 ML IV SCH ×3 (16:25→18:19)
--- NOTE | 2018-03-19 16:25 | ED General ---
General Stated Complaint: POSS KIDNEY AND EAR INFECTION/SOB Source of Information: Patient Exam Limitations: No Limitations History of Present Illness Date Seen by Provider: Mar 19, 2018 Time Seen by Provider: 15:59 Initial Comments Here with report of 3 days of feeling like she has a bladder infection in her kidney infection. Pain is moved from dysuria to left flank and to some extent on the right flank. Also feels short of breath and tight and had an earache on the left. Denies diarrhea and has had some nausea. Has had anything for fever or pain today. Reports that she has no primary care doctor. Timing/Duration: 2-3 Days Severity: Moderate Modifying Factors: improves with Rest Associated Systoms: No Chest Pain, No Cough; Fever/Chills, Loss of Appetite, Nausea/Vomiting; No Rash; Shortness of Air, Weakness Allergies and Home Medications Allergies Coded Allergies: ciprofloxacin (Unverified Allergy, Unknown, 05/29/17) Home Medications No Active Prescriptions or Reported Meds Patient Home Medication List Home Medication List Reviewed: Yes Review of Systems Review of Systems Constitutional: see HPI, chills, fever EENTM: ear pain; No ear discharge Respiratory: see HPI; No cough; short of breath Cardiovascular: No chest pain, No palpitations Gastrointestinal: abdominal pain, nausea; No vomiting Genitourinary: dysuria, pain : No LMP: Mar 19, 2018 Musculoskeletal: back pain, muscle pain Skin: no symptoms reported Psychiatric/Neurological: No Symptoms Reported All Other Systems Reviewed Negative Unless Noted: Yes Past Oqhsxsa-Byvkml-Tqtdwh Hx Past Med/Social Hx: Reviewed Nursing Past Med/Soc Hx Patient Social History Alcohol Use: Denies Use Recreational Drug Use: No Drug of Choice: METH AND POT Smoking Status: Current Everyday Smoker Type Used: Cigarettes Recent Foreign Travel: No Contact w/Someone Who Travel: No Recent Hopitalizations: No Seasonal Allergies Seasonal Allergies: No Past Medical History Surgeries: Yes Section, Tonsillectomy Respiratory: No Cardiac: No Neurological: No 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: No Genitourinary: No Gastrointestinal: Yes (COLLAGENOUS COLITIS) Colitis Musculoskeletal: Yes Scoliosis Endocrine: No HEENT: No Cancer: No Psychosocial: No Integumentary: No Blood Disorders: No Family Medical History Reviewed Nursing Family Hx Physical Exam-Suspected Sepsis Physical Exam Vital Signs Vital Signs - First Documented 03/19/18 15:50 Temp 100.1 Pulse 137 Resp 18 B/P (MAP) 114/81 (92) Pulse Ox 99 Capillary Refill : Height, Weight, BMI Height: 5'3.00" Weight: 115lbs. 0.0oz. 52.777524ao; 20.4 BMI Method:Stated General Appearance: Anxious, Thin HEENT: PERRL/EOMI, TMs Normal, Pharynx Normal Neck: Non Tender, Supple Respiratory: Lungs Clear, No Accessory Muscle Use, Other (take) Cardiovascular: No Murmur, Tachycardia Gastrointestinal: Soft, Tenderness (mild suprapubic) Back: No Vertebral Tenderness, CVA Tenderness (L) Extremity: Normal Capillary Refill, Normal Range of Motion, Non Tender Neurologic/Psychiatric: Alert, Oriented x3 Skin: normal color, warm/dry Focused Exam Lactate Level 03/19/18 16:10: Lactic Acid Level 2.13*H Lactic Acid Level Laboratory Tests Test 03/19/18 16:10 Lactic Acid Level 2.13 MMOL/L (0.50-2.00) *H Progress/Results/Core Measures Suspected Sepsis SIRS Temperature: Pulse: Respiratory Rate: Laboratory Tests 03/19/18 16:10: White Blood Count 18.7H Blood Pressure / Mean: 03/19/18 16:10: Lactic Acid Level 2.13*H Laboratory Tests 03/19/18 16:10: Platelet Count 348 Results/Orders Lab Results Laboratory Tests Test 03/19/18 15:50 03/19/18 16:10 Range/Units Urine Color YELLOW Urine Clarity VERY CLOUDY H Urine pH 6.5 5-9 Urine Specific Heidrick 1.010 L 1.016-1.022 Urine Protein 4+ NEGATIVE Urine Glucose (UA) NEGATIVE NEGATIVE Urine Ketones 1+ H NEGATIVE Urine Nitrite POSITIVE H NEGATIVE Urine Bilirubin NEGATIVE NEGATIVE Urine Urobilinogen 4 H NORMAL MG/DL Urine Leukocyte Esterase 3+ H NEGATIVE Urine RBC (Auto) 4+ H NEGATIVE Urine RBC 5-10 H /HPF Urine WBC TNTC H /HPF Urine Squamous Epithelial Cells 10-25 H /HPF Urine Crystals NONE /LPF Urine Bacteria LARGE H /HPF Urine Casts NONE /LPF Urine Mucus NEGATIVE /LPF Urine Culture Indicated YES White Blood Count 18.7 H 4.3-11.0 10^3/uL Red Blood Count 4.35 4.35-5.85 10^6/uL Hemoglobin 10.7 L 11.5-16.0 G/DL Hematocrit 33 L 35-52 % Mean Corpuscular Volume 75 L 80-99 FL Mean Corpuscular Hemoglobin 25 25-34 PG Mean Corpuscular Hemoglobin Concent 33 32-36 G/DL Red Cell Distribution Width 21.0 H 10.0-14.5 % Platelet Count 348 130-400 10^3/uL Mean Platelet Volume 11.0 H 7.4-10.4 FL Neutrophils (%) (Auto) 86 H 42-75 % Lymphocytes (%) (Auto) 6 L 12-44 % Monocytes (%) (Auto) 8 0-12 % Eosinophils (%) (Auto) 0 0-10 % Basophils (%) (Auto) 0 0-10 % Neutrophils # (Auto) 16.0 H 1.8-7.8 X 10^3 Lymphocytes # (Auto) 1.2 1.0-4.0 X 10^3 Monocytes # (Auto) 1.5 H 0.0-1.0 X 10^3 Eosinophils # (Auto) 0.0 0.0-0.3 10^3/uL Basophils # (Auto) 0.0 0.0-0.1 10^3/uL Neutrophils % (Manual) 93 % Lymphocytes % (Manual) 6 % Monocytes % (Manual) 0 % Eosinophils % (Manual) 0 % Basophils % (Manual) 0 % Band Neutrophils 1 % Hypochromasia MODERATE Poikilocytosis MODERATE Anisocytosis SLIGHT Microcytosis SLIGHT Spherocytes SLIGHT Elliptocytes SLIGHT Schistocytes SLIGHT Lactic Acid Level 2.13 *H 0.50-2.00 MMOL/L My Orders Orders - KIAN BORRERO MD Cbc With Automated Diff (03/19/18 16:03) Comprehensive Metabolic Panel (03/19/18 16:03) Blood Culture (03/19/18 16:03) Sputum Culture (03/19/18 16:03) Urinalysis (03/19/18 16:03) Protime With Inr (03/19/18 16:03) Partial Thromboplastin Time (03/19/18 16:03) Chest 1 View, Ap/Pa Only (03/19/18 16:03) Acetaminophen Tablet (Tylenol Tablet) (03/19/18 16:15) Saline Lock/Iv-Start (03/19/18 16:03) Vital Signs Adult Sepsis Patie Q15M (03/19/18 16:03) O2 (03/19/18 16:03) Remove Rings In Anticipation O (03/19/18 16:03) Lactic Acid Analyzer (03/19/18 16:03) Influenza A And B Antigens (03/19/18 16:03) Ns Iv 1000 Ml (Sodium Chloride 0.9%) (03/19/18 16:03) Manual Differential (03/19/18 16:10) Urine Culture (03/19/18 15:50) Medications Given in ED Current Medications Medications Dose Ordered Sig/Nicole Route Start Time Stop Time Status Last Admin Dose Admin Acetaminophen 1,000 mg ONCE PRN PO 03/19/18 16:15 03/19/18 16:35 DC 03/19/18 16:25 1,000 MG Vital Signs/I&O 03/19/18 15:50 Temp 100.1 Pulse 137 Resp 18 B/P (MAP) 114/81 (92) Pulse Ox 99 Capillary Refill : Progress Note : Progress Note Seen and evaluated. IV, labs, UA, chest x-ray, blood cultures and lactic acid ordered. Normal saline 2 L bolus. Acetaminophen 1 g by mouth. Monitor patient. 1700: Lactic acid 2.13. Heart rate improving with IV fluid and is currently 112. Blood pressure 111/72. Rocephin 1 g IV ordered. Patient has findings of sepsis but not septic shock. Admit, inpatient status. I did discuss the case with Dr. ruiz and she accepts patient for admission. Patient agrees with plan. Diagnostic Imaging Diagonstic Imaging: Xray Plain Films/CT/US/NM/MRI: chest Comments NAME: PRAVEENA PARK Severino [facility] REC#: [id number] PT STATUS: REG ER : 1985 PHYSICIAN: KIAN BORRERO MD ADMIT DATE: 03/19/18/ER Signed Date of Exam: 03/19/18 CHEST 1 VIEW, AP/PA ONLY INDICATION: Fever. Chest pain. COMPARISON: None FINDINGS: Single frontal view of the chest demonstrates normal heart size and pulmonary vascularity. The lungs are well aerated and clear. No large pleural effusion or pneumothorax is seen. The visualized osseous structures show no acute abnormalities. IMPRESSION: 1. No acute cardiopulmonary process. Dictated by: Dictated on workstation # [id number] Dict: 03/19/18 165 Trans: 03/19/181701 Interpreted by: BELINDA MASON MD Electronically signed by: BELINDA MASON MD 03/19/181701 Reviewed: Reviewed by Me Departure Communication (Admissions) Time/Spoke to Admitting Phy: 17:00 Impression Primary Impression: Urinary tract infection Qualified Codes: N30.00 - Acute cystitis without hematuria Additional Impression: Sepsis Qualified Codes: A41.9 - Sepsis, unspecified organism Disposition: ADMITTED INPATIENT Condition: Stable Admissions Decision to Admit Reason: Admit from ER (General) Decision to Admit/Date: Mar 19, 2018 Time/Decision to Admit Time: 17:00 Departure-Patient Inst. Referrals: NO,LOCAL PHYSICIAN (PCP/Family) Primary Care Physician Scripts No Active Prescriptions or Reported Meds KIAN BORRERO MD Mar 19, 2018 16:25
[2018-03-19 16:35] LABS: BASOPHILS % (AUTO) 0 % (0-10); EOSINOPHILS % (AUTO) 0 % (0-10); HEMATOCRIT 33 % (35-52); HEMOGLOBIN 10.7 G/DL (11.5-16.0); LYMPHOCYTES # (AUTO) 1.2 X 10^3 (1.0-4.0); LYMPHOCYTES % (AUTO) 6 % (12-44); MEAN CORPUSCULAR HEMOGLOBIN 25 PG (25-34); MEAN CORPUSCULAR HGB CONC 33 G/DL (32-36); MEAN CORPUSCULAR VOLUME 75 FL (80-99); MONOCYTES # (AUTO) 1.5 X 10^3 (0.0-1.0); MONOCYTES % (AUTO) 8 % (0-12); NEUTROPHILS % (AUTO) 86 % (42-75); PLATELET COUNT 348 10^3/uL (130-400); RED BLOOD COUNT 4.35 10^6/uL (4.35-5.85); WHITE BLOOD COUNT 18.7 10^3/uL (4.3-11.0)
[2018-03-19 16:35] LABS: BILIRUBIN,URINE NEGATIVE (NEGATIVE); CLARITY,URINE VERY CLOUDY; COLOR,URINE YELLOW; GLUCOSE, URINE (UA) NEGATIVE (NEGATIVE); KETONES,URINE 1+ (NEGATIVE); LEUKOCYTE ESTERASE ,URINE 3+ (NEGATIVE); NITRITE,URINE POSITIVE (NEGATIVE); PH,URINE 6.5 (5-9); PROTEIN,URINE 4+ (NEGATIVE); UROBILINOGEN,URINE 4 MG/DL (NORMAL)
[2018-03-19 16:50] LABS: BACTERIA,URINE LARGE /HPF; WBC,URINE TNTC /HPF
--- NOTE | 2018-03-19 16:56 | Diagnostic Imaging Report ---
INDICATION: Fever. Chest pain. COMPARISON: None FINDINGS: Single frontal view of the chest demonstrates normal heart size and pulmonary vascularity. The lungs are well aerated and clear. No large pleural effusion or pneumothorax is seen. The visualized osseous structures show no acute abnormalities. IMPRESSION: 1. No acute cardiopulmonary process. Dictated by: Dictated on workstation # [id number]
[2018-03-19 17:05] LABS: ANISOCYTOSIS SLIGHT; BAND NEUTROPHILS 1 %; BASOPHILS % (MANUAL) 0 %; ELLIPT/OVALOCYTES SLIGHT; EOSINOPHILS % (MANUAL) 0 %; HYPOCHROMASIA MODERATE; LYMPHOCYTES % (MANUAL) 6 %; MICROCYTOSIS SLIGHT; MONOCYTES % (MANUAL) 0 %; NEUTROPHILS % (MANUAL) 93 %; POIKILOCYTOSIS MODERATE; SCHISTOCYTES SLIGHT; SPHEROCYTES SLIGHT
[2018-03-19 17:06] LABS: INR 1.3 (0.8-1.4); PROTHROMBIN TIME PATIENT 15.8 SEC (12.2-14.7)
[2018-03-19 17:09] LABS: ALANINE AMINOTRANSFERASE 16 U/L (0-55); ALBUMIN 3.9 GM/DL (3.2-4.5); ALKALINE PHOSPHATASE 72 U/L (40-136); BILIRUBIN,TOTAL 1.1 MG/DL (0.1-1.0); BUN/CREATININE RATIO 15; CARBON DIOXIDE 19 MMOL/L (21-32); CHLORIDE 100 MMOL/L (98-107); CREATININE SERUM 0.96 MG/DL (0.60-1.30); GFR ESTIMATED > 60; GLUCOSE 88 MG/DL (70-105); POTASSIUM 3.1 MMOL/L (3.6-5.0); SODIUM 133 MMOL/L (135-145); TOTAL PROTEIN 6.8 GM/DL (6.4-8.2)
[2018-03-19] MEDS ORDERED: KETOROLAC 30 MG/ML VIAL IVP STA (17:13)
[2018-03-19] MEDS ORDERED: cefTRIAXone FOR IV USE 1,000 MG in NS (IVPB) 50 ML IV ONE (17:15)
--- OUTSIDE RECORDS SUMMARY | 2018-03-19 17:29 | XMS REPORT | Continuity of Care Document ---
Author Author [facility] Organization 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 <section xmlns="urn:hl7-org:v3" xmlns:xsi="http:// www.w3.org/2001/XMLSchema-instance"> <templateId root= "2.16.840.1.727344.10.20.22.2.3" /> <templateId root= "2.16.840.1.388315.10.20.22.2.3.1" /> <code codeSystemName="EVERT" codeSystem= "2.16.840.1.719591.6.1" code="44367-6" displayName="Results" /> <title>Results< /title> <text> <table> <thead> [...] </td> < td> </td> </tr> <tr> <td>Urine-Specific [place]</td> <td>1.020 </td> <td>1.000-1.030</td> </tr> <tr> <td>Urine-WBC</td> <td>2-5/HPF </td> <td> </td> </tr> <tr> <td>Urobilinogen</td> <td>0.2 </td> <td>0.2-1.0</td> </tr> <tr> < colspan="10">XM (2) [facility] - 03/27/17 22:55</th> </tr> <tr> <td>CROSSMATCH</td [...] </tr> <tr> <td> Surg Path</td> <td>Sent to [facility] </td> <td /> </tr> <tr> < [...] > <td>MCV</td> <td>73.4 fL</td> <td>80.0-97.0</td> </tr> <tr> <td>[place]%</td> <td>7.6 %</td> <td>0.0-12.0</td> </tr> <tr> <td>MPV</td> <td>11.1 fL</td> <td>7.4-10.0</td> </tr> <tr> <td>Julianne%</td> <td>60.2 %</td> <td>37.0-80.0</td> </tr> <tr> <td>Plt</td> <td>222 K/uL</td> <td>150-400</td> </tr> <tr> <td>RBC</td> <td >4.67 M/uL</td> <td>3.60-5.00</td> </tr> <tr> < td>RDW</td> <td>22.7 %</td> <td>11.6-14.8</td> </tr > <tr> <td>WBC</td> <td>7.36 K/uL</td> <td> 5.00-10.00</td> </tr> <tr> <td>Julianne</td> <td> 4.43 K/uL</td> <td>2.00-6.90</td> </tr> <tr> <td >[place]</td> <td>0.6 K/uL</td> <td>0.0-0.9</td> </tr> <tr> <td>Baso</td> <td>0.1 [...] <td> 7.00-31.40</td> </tr> <tr> <th colspan="10">XM (2) [facility] - 11/19/17 21:50</th> </tr> <tr> <td>CROSSMATCH</td> [...] <td>. </td> <td>NRG</td> </tr> <tr> <th colspan="10">[facility] Sensitivity Panel - 01/29/18 16:37</th> </tr> <tr> [...] <td>Minocycline susc SHAYNA</td> <td><=</td > <td>NRG</td> </tr> <tr> < colspan="10"> Complete urinalysis with reflex to culture - 03/19/18 15:50</th> </tr> <tr> <td>Urine color determination</td> <td>YELLOW </td > <td>NRG</td> </tr> <tr> <td>Urine clarity determination</td> <td>VERY CLOUDY </td> <td>NRG</td> < /tr> <tr> <td>Urine pH measurement by test strip</td> < td>6.5 </td> <td>5-9</td> </tr> <tr> <td> Specific gravity of urine by test strip</td> <td>1.010 </td> < td>1.016-1.022</td> </tr> <tr> <td>Urine protein assay by test strip, semi-quantitative</td> <td>4+ </td> <td> NEGATIVE</td> </tr> <tr> <td>Urine glucose detection by automated test strip</td> <td>NEGATIVE </td> <td>NEGATIVE</td > </tr> <tr> <td>Erythrocytes detection in urine sediment by light microscopy</td> <td>4+ </td> <td>NEGATIVE</ td> </tr> <tr> <td>Urine ketones detection by automated test strip</td> <td>1+ </td> <td>NEGATIVE</td> </tr> <tr> <td>Urine nitrite detection by test strip</td> <td> POSITIVE </td> <td>NEGATIVE</td> </tr> <tr> <td> Urine total bilirubin detection by test strip</td> <td>NEGATIVE </td> <td>NEGATIVE</td> </tr> <tr> <td>Urine urobilinogen measurement by automated test strip (mass/volume)</td> <td >4 mg/dL</td> <td>NORMAL</td> </tr> <tr> <td> Urine leukocyte esterase detection by dipstick</td> <td>3+ </td> <td>NEGATIVE</td> </tr> <tr> <td>Automated urine sediment erythrocyte count by microscopy (number/high power field)</td> <td> [HPF]</td> <td>NRG</td> </tr> <tr> <td> Automated urine sediment leukocyte count by microscopy (number/high power field) </td> <td>TNTC </td> <td>NRG</td> </tr> <tr> <td>Bacteria detection in urine sediment by light microscopy</td> <td>LARGE </td> <td>NRG</td> </tr> <tr> <td> Squamous epithelial cells detection in urine sediment by light microscopy</td> <td>10-25 </td> <td>NRG</td> </tr> <tr> <td>Crystals detection in urine sediment by light microscopy</td> <td >NONE </td> <td>NRG</td> </tr> <tr> <td>Casts detection in urine sediment by light microscopy</td> <td>NONE </td> <td>NRG</td> </tr> <tr> <td>Mucus detection in urine sediment by light microscopy</td> <td>NEGATIVE </td> <td >NRG</td> </tr> <tr> <td>Complete urinalysis with reflex to culture</td> <td>YES </td> <td>NRG</td> </tr> <tr> < colspan="10">Complete blood count (CBC) with automated white blood cell (WBC) differential - 03/19/18 16:10</th> </tr> < tr> <td>Blood leukocytes automated count (number/volume)</td> <td>18.7 10*3/uL</td> <td>4.3-11.0</td> </tr> <tr> <td>Blood erythrocytes automated count (number/volume)</td> <td> 4.35 10*6/uL</td> <td>4.35-5.85</td> </tr> <tr> <td>Venous blood hemoglobin measurement (mass/volume)</td> <td>10.7 g/ dL</td> <td>11.5-16.0</td> </tr> <tr> <td>Blood hematocrit (volume fraction)</td> <td>33 %</td> <td>35-52< /td> </tr> <tr> <td>Automated erythrocyte mean corpuscular volume</td> <td>75 [foz_us]</td> <td>80-99</td> </tr> <tr> <td>Automated erythrocyte mean corpuscular hemoglobin (mass per erythrocyte)</td> <td>25 pg</td> <td>25- 34</td> </tr> <tr> <td>Automated erythrocyte mean corpuscular hemoglobin concentration measurement (mass/volume)</td> <td >33 g/dL</td> <td>32-36</td> </tr> <tr> <td> Automated erythrocyte distribution width ratio</td> <td>21.0 %</td > <td>10.0-14.5</td> </tr> <tr> <td>Automated blood platelet count (count/volume)</td> <td>348 10*3/uL</td> <td>130-400</td> </tr> <tr> <td>Automated blood platelet mean volume measurement</td> <td>11.0 [foz_us]</td> <td>7.4- 10.4</td> </tr> <tr> <td>Automated blood neutrophils/100 leukocytes</td> <td>86 %</td> <td>42-75</td> </tr> <tr> <td>Automated blood lymphocytes/100 leukocytes</td> <td>6 %</td> <td>12-44</td> </tr> <tr> < td>Blood monocytes/100 leukocytes</td> <td>8 %</td> <td>0- 12</td> </tr> <tr> <td>Automated blood eosinophils/100 leukocytes</td> <td>0 %</td> <td>0-10</td> </tr> <tr> <td>Automated blood basophils/100 leukocytes</td> < td>0 %</td> <td>0-10</td> </tr> <tr> <td> Blood neutrophils automated count (number/volume)</td> <td>16.0 10*3</ td> <td>1.8-7.8</td> </tr> <tr> <td>Blood lymphocytes automated count (number/volume)</td> <td>1.2 10*3</td> <td>1.0-4.0</td> </tr> <tr> <td>Blood monocytes automated count (number/volume)</td> <td>1.5 10*3</td> <td>0.0 -1.0</td> </tr> <tr> <td>Automated eosinophil count</td> <td>0.0 10*3/uL</td> <td>0.0-0.3</td> </tr> <tr > <td>Automated blood basophil count (count/volume)</td> <td> 0.0 10*3/uL</td> <td>0.0-0.1</td> </tr> <tr> < th colspan="10">Blood lactic acid measurement (moles/volume) - 03/19/18 16:10</ th> </tr> <tr> <td>Blood lactic acid measurement (moles/ volume)</td> <td>2.13 mmol/L</td> <td>0.50-2.00</td> </ tr> </tbody> </table> </text> <entry> <organizer moodCode="EVN" classCode="BATTERY"> <templateId root="216.840.1.064465.10.20.22.4.1" /> <id nullFlavor="NA" /> <code codeSystem="local" code="UA" displayName= "URINALYSIS, ROUTINE" /> <statusCode code="completed" /> <component> <observation moodCode="EVN" classCode="OBS"> <templateId root= "16.840.1.582282.10.20.22.4.2" /> <id nullFlavor="NA" /> < code codeSystem="local" code="LEUESU" displayName="UA LEUKOCYTE ESTERASE DIPSTICK" /> <statusCode code="completed" /> <effectiveTime value="107164484365" /> <value unit="" xsi:type="PQ" value="2+" /> <interpretationCode codeSystem="local" code="*" /> < referenceRange> <observationRange> <text>NEGATIVE</text > </observationRange> </referenceRange> </observation > </component> <component> <observation moodCode="EVN" classCode="OBS"> <templateId root="16.840.1.160005.10.20.22.4.2" /> <id nullFlavor="NA" /> <code codeSystem="local" code="NITRIU" displayName="UA NITRITE DIPSTICK" /> <statusCode code="completed" /> <effectiveTime value="619428901930" /> <value unit="" xsi:type= "PQ" value="POSITIVE" /> <interpretationCode codeSystem="local" code="* " /> <referenceRange> <observationRange> <text> NEGATIVE</text> </observationRange> </referenceRange> </observation> </component> <component> <observation moodCode ="EVN" classCode="OBS"> <templateId root= "16.840.1.778376.10.20.22.4.2" /> <id nullFlavor="NA" /> < code codeSystem="local" code="PROTEIU" displayName="UA PROTEIN DIPSTICK" /> <statusCode code="completed" /> <effectiveTime value= "508364993016" /> <value unit="" xsi:type="PQ" value="1+" /> < interpretationCode codeSystem="local" code="*" /> <referenceRange> <observationRange> <text>NEGATIVE</text> </ observationRange> </referenceRange> </observation> </ component> <component> <observation moodCode="EVN" classCode="OBS"> <templateId root="16.840.1.219113.10.20.22.4.2" /> <id nullFlavor="NA" /> <code codeSystem="local" code="DGLUU" displayName= "UA GLUCOSE DIPSTICK" /> <statusCode code="completed" /> < effectiveTime value="739707293033" /> <value unit="" xsi:type="PQ" value="NEGATIVE" /> <referenceRange> <observationRange> <text>NEGATIVE</text> </observationRange> </ referenceRange> </observation> </component> <component> <observation moodCode="EVN" classCode="OBS"> <templateId root= "06.27.840.1.040667.02.28.22.4.2" /> <id nullFlavor="NA" /> < code codeSystem="local" code="KETONU" displayName="UA KETONE DIPSTICK" /> <statusCode code="completed" /> <effectiveTime value=" " /> <value unit="" xsi:type="PQ" value="NEGATIVE" /> < referenceRange> <observationRange> <text>NEGATIVE</text > </observationRange> </referenceRange> </observation > </component> <component> <observation moodCode="EVN" classCode="OBS"> <templateId root="216.840.1.666511.02.28.22.4.2" /> <id nullFlavor="NA" /> <code codeSystem="local" code="UROBILU " displayName="UA UROBILINOGEN DIPSTICK" /> <statusCode code="completed " /> <effectiveTime value="" /> <value unit="" xsi :type="PQ" value="NORMAL" /> <referenceRange> < observationRange> <text>NORMAL</text> </observationRange > </referenceRange> </observation> </component> < component> <observation moodCode="EVN" classCode="OBS"> < templateId root="216.840.1.488455.02.28.22.4.2" /> <id nullFlavor="NA " /> <code codeSystem="local" code="BILU" displayName="UA BILIRUBIN DIPSTICK" /> <statusCode code="completed" /> <effectiveTime value="" /> <value unit="" xsi:type="PQ" value="NEGATIVE" / > <referenceRange> <observationRange> <text> NEGATIVE</text> </observationRange> </referenceRange> </observation> </component> <component> <observation moodCode ="EVN" classCode="OBS"> <templateId root= "16.840.1.274688.10..22.4.2" /> <id nullFlavor="NA" /> < code codeSystem="local" code="NOLVIA" displayName="UA BLOOD DIPSTICK" /> < statusCode code="completed" /> <effectiveTime value="" /> <value unit="" xsi:type="PQ" value="TRACE" /> < interpretationCode codeSystem="local" code="*" /> <referenceRange> <observationRange> <text>NEGATIVE</text> </ observationRange> </referenceRange> </observation> </ component> <component> <observation moodCode="EVN" classCode="OBS"> <templateId root="16.840.1.079766.02.28.22.4.2" /> <id nullFlavor="NA" /> <code codeSystem="local" code="SPGRU" displayName= "UA SPECIFIC GRAVITY" /> <statusCode code="completed" /> < effectiveTime value="" /> <value unit="" xsi:type="PQ" value="1.015" /> <referenceRange> <observationRange> <text>1.015-1.025</text> </observationRange> </ referenceRange> </observation> </component> <component> <observation moodCode="EVN" classCode="OBS"> <templateId root= "16.840.1.111373.10.2022.4.2" /> <id nullFlavor="NA" /> < code codeSystem="local" code="DIETER" displayName="UR PH" /> <statusCode code="completed" /> <effectiveTime value="" /> < value unit="" xsi:type="PQ" value="6.0" /> <referenceRange> <observationRange> <text>5.0-7.0</text> </ observationRange> </referenceRange> </observation> </ component> <component> <observation moodCode="EVN" classCode="OBS"> <templateId root="16.840.1.107250.10..22.4.2" /> <id nullFlavor="NA" /> <code codeSystem="local" code="MB" displayName= "Microbiology" /> <statusCode code="completed" /> < effectiveTime value="077187348369" /> <value unit="" xsi:type="PQ" value="" /> <referenceRange> <observationRange> <text /> </observationRange> </referenceRange> </ observation> </component> </organizer> </entry> <entry> <organizer moodCode="EVN" classCode="BATTERY"> <templateId root= "06.27.840.1.317837.10..22.4.1" /> <id nullFlavor="NA" /> <code codeSystem="local" code="UAMICRO" displayName="UA MICROSCOPIC" /> < statusCode code="completed" /> <component> <observation moodCode= "EVN" classCode="OBS"> <templateId root="16.840.1.699484.10..22.4.2 " /> <id nullFlavor="NA" /> <code codeSystem="local" code= "EPIU" displayName="UA EPITHELIAL CELLS" /> <statusCode code="completed " /> <effectiveTime value="235202249951" /> <value unit="epi/ hpf" xsi:type="PQ" value="2+" /> <interpretationCode codeSystem="local " code="*" /> <referenceRange> <observationRange> <text>0 - 1+</text> </observationRange> </referenceRange > </observation> </component> <component> <observation moodCode="EVN" classCode="OBS"> <templateId root= "216.840.1.137484.10..22.4.2" /> <id nullFlavor="NA" /> < code codeSystem="local" code="RBCU" displayName="UA RBC" /> < statusCode code="completed" /> <effectiveTime value="" /> <value unit="rbc/hpf" xsi:type="PQ" value="0" /> < referenceRange> <observationRange> <text>0 - 3</text> </observationRange> </referenceRange> </observation> </component> <component> <observation moodCode="EVN" classCode= "OBS"> <templateId root="216.840.1.829244.10..4.2" /> < id nullFlavor="NA" /> <code codeSystem="local" code="UAVOL" displayName ="UA VOLUME FOR EXAM" /> <statusCode code="completed" /> < effectiveTime value="" /> <value unit="mL" xsi:type="PQ" value="12.0" /> <referenceRange> <observationRange> <text>(12mL STD)</text> </observationRange> </ referenceRange> </observation> </component> <component> <observation moodCode="EVN" classCode="OBS"> <templateId root= "16.840.1.143980.10..22.4.2" /> <id nullFlavor="NA" /> < code codeSystem="local" code="WBCU" displayName="UA WBC" /> < statusCode code="completed" /> <effectiveTime value="" /> <value unit="wbc/hpf" xsi:type="PQ" value="20-50" /> < interpretationCode codeSystem="local" code="*" /> <referenceRange> <observationRange> <text>0 - 5</text> </ observationRange> </referenceRange> </observation> </ component> <component> <observation moodCode="EVN" classCode="OBS"> <templateId root="216.840.1.237757.10...4.2" /> <id nullFlavor="NA" /> <code codeSystem="local" code="WBCCLUMPS" displayName="WBC CLUMPS" /> <statusCode code="completed" /> < effectiveTime value="540829750179" /> <value unit="" xsi:type="PQ" value="PRESENT" /> <interpretationCode codeSystem="local" code="*" /> <referenceRange> <observationRange> <text> NEGATIVE</text> </observationRange> </referenceRange> </observation> </component> </organizer> </entry> <entry> < organizer moodCode="EVN" classCode="BATTERY"> <templateId root= "16.840.1.223745.10..4.1" /> <id nullFlavor="NA" /> <code codeSystem="local" code="PREGU" displayName="UR TEST" /> < statusCode code="completed" /> <component> <observation moodCode= "EVN" classCode="OBS"> <templateId root="16.840.1.484058.10.22.4.2 " /> <id nullFlavor="NA" /> <code codeSystem="local" code= "PREGU" displayName="UR TEST" /> <statusCode code="completed " /> <effectiveTime value="312246716852" /> <value unit="" xsi :type="PQ" value="NEGATIVE" /> <referenceRange> < observationRange> <text>NEGATIVE</text> </ observationRange> </referenceRange> </observation> </ component> <component> <observation moodCode="EVN" classCode="OBS"> <templateId root="2.16.840.1.600185.10..22.4.2" /> <id nullFlavor="NA" /> <code codeSystem="local" code="MB" displayName= "Microbiology" /> <statusCode code="completed" /> < effectiveTime value="126367022139" /> <value unit="" xsi:type="PQ" value="" /> <referenceRange> <observationRange> <text /> </observationRange> </referenceRange> </ observation> </component> </organizer> </entry> <entry> <organizer moodCode="EVN" classCode="BATTERY"> <templateId root= "2.16.840.1.799365.10..22.4.1" /> <id nullFlavor="NA" /> <code codeSystem="local" code="PREGU" displayName="UR TEST" /> < statusCode code="completed" /> <component> <observation moodCode= "EVN" classCode="OBS"> <templateId root="2.16.840.1.302701.10..22.4.2 " /> <id nullFlavor="NA" /> <code codeSystem="local" code= "PREGU" displayName="UR TEST" /> <statusCode code="completed " /> <effectiveTime value="834391846540" /> <value xsi:type= "ST" value="<pre><b>UR TEST</b> NEGATIVE</pre>" /> < referenceRange> <observationRange> <text>NEGATIVE</text > </observationRange> </referenceRange> </observation > </component> <component> <observation moodCode="EVN" classCode="OBS"> <templateId root="16.840.1.530040.10..22.4.2" /> <id nullFlavor="NA" /> <code codeSystem="local" code="MB" displayName="Microbiology" /> <statusCode code="completed" /> <effectiveTime value="801770017573" /> <value xsi:type="ST" value="<pre ><b>UR TEST</b> NEGATIVE</pre>" /> <referenceRange> <observationRange> <text /> </observationRange> </referenceRange> </observation> </component> </organizer> </entry> <entry> <organizer moodCode="EVN" classCode="BATTERY"> < templateId root="06.27.840.1.493304.02.28.22.4.1" /> <id nullFlavor="NA" /> <code codeSystem="local" code="UA" displayName="URINALYSIS, ROUTINE" /> <statusCode code="completed" /> <component> <observation moodCode="EVN" classCode="OBS"> <templateId root= "16.840.1.495630.02.28.22.4.2" /> <id nullFlavor="NA" /> < code codeSystem="local" code="LEUESU" displayName="UA LEUKOCYTE ESTERASE DIPSTICK" /> <statusCode code="completed" /> <effectiveTime value="410449542510" /> <value unit="" xsi:type="PQ" value="TRACE" /> <referenceRange> <observationRange> <text> NEGATIVE</text> </observationRange> </referenceRange> </observation> </component> <component> <observation moodCode ="EVN" classCode="OBS"> <templateId root= "16.840.1.001899...4.2" /> <id nullFlavor="NA" /> < code codeSystem="local" code="NITRIU" displayName="UA NITRITE DIPSTICK" /> <statusCode code="completed" /> <effectiveTime value="772982581114 " /> <value unit="" xsi:type="PQ" value="NEGATIVE" /> < referenceRange> <observationRange> <text>NEGATIVE</text > </observationRange> </referenceRange> </observation > </component> <component> <observation moodCode="EVN" classCode="OBS"> <templateId root="2.16.840.1.593033.10.20.22.4.2" /> <id nullFlavor="NA" /> <code codeSystem="local" code="PROTEIU " displayName="UA PROTEIN DIPSTICK" /> <statusCode code="completed" /> <effectiveTime value="697632890706" /> <value unit="" xsi: type="PQ" value="2+" /> <interpretationCode codeSystem="local" code="* " /> <referenceRange> <observationRange> <text> NEGATIVE</text> </observationRange> </referenceRange> </observation> </component> <component> <observation moodCode ="EVN" classCode="OBS"> <templateId root= "2.16.840.1.660393.10..22.4.2" /> <id nullFlavor="NA" /> < code codeSystem="local" code="DGLUU" displayName="UA GLUCOSE DIPSTICK" /> <statusCode code="completed" /> <effectiveTime value="382200678454 " /> <value unit="" xsi:type="PQ" value="NEGATIVE" /> < referenceRange> <observationRange> <text>NEGATIVE</text > </observationRange> </referenceRange> </observation > </component> <component> <observation moodCode="EVN" classCode="OBS"> <templateId root="16.840.1.215007.10..22.4.2" /> <id nullFlavor="NA" /> <code codeSystem="local" code="KETONU" displayName="UA KETONE DIPSTICK" /> <statusCode code="completed" /> <effectiveTime value="267503371549" /> <value unit="" xsi:type= "PQ" value="2+" /> <interpretationCode codeSystem="local" code="*" /> <referenceRange> <observationRange> <text> NEGATIVE</text> </observationRange> </referenceRange> </observation> </component> <component> <observation moodCode ="EVN" classCode="OBS"> <templateId root= "06.27.840.1.568491.02.28.22.4.2" /> <id nullFlavor="NA" /> < code codeSystem="local" code="UROBILU" displayName="UA UROBILINOGEN DIPSTICK" / > <statusCode code="completed" /> <effectiveTime value= "789393552866" /> <value unit="" xsi:type="PQ" value="2+" /> < referenceRange> <observationRange> <text>NORMAL</text> </observationRange> </referenceRange> </observation> </component> <component> <observation moodCode="EVN" classCode ="OBS"> <templateId root="06.27.840.1.321589.10..4.2" /> < id nullFlavor="NA" /> <code codeSystem="local" code="BILU" displayName= "UA BILIRUBIN DIPSTICK" /> <statusCode code="completed" /> < effectiveTime value="213834958463" /> <value unit="" xsi:type="PQ" value="1+" /> <interpretationCode codeSystem="local" code="*" /> <referenceRange> <observationRange> <text>NEGATIVE</ text> </observationRange> </referenceRange> </ observation> </component> <component> <observation moodCode= "EVN" classCode="OBS"> <templateId root="216.840.1.968792.10.20.22.4.2 " /> <id nullFlavor="NA" /> <code codeSystem="local" code="NOLVIA " displayName="UA BLOOD DIPSTICK" /> <statusCode code="completed" /> <effectiveTime value="363121218570" /> <value unit="" xsi:type= "PQ" value="TRACE" /> <interpretationCode codeSystem="local" code="*" / > <referenceRange> <observationRange> <text> NEGATIVE</text> </observationRange> </referenceRange> </observation> </component> <component> <observation moodCode ="EVN" classCode="OBS"> <templateId root= "06.27.840.1.299565.10..4.2" /> <id nullFlavor="NA" /> < code codeSystem="local" code="SPGRU" displayName="UA SPECIFIC GRAVITY" /> <statusCode code="completed" /> <effectiveTime value="293043380495 " /> <value unit="" xsi:type="PQ" value="1.015" /> < referenceRange> <observationRange> <text>1.015-1.025</ text> </observationRange> </referenceRange> </ observation> </component> <component> <observation moodCode= "EVN" classCode="OBS"> <templateId root="16.840.1.674302.10.20.22.4.2 " /> <id nullFlavor="NA" /> <code codeSystem="local" code="DIETER " displayName="UR PH" /> <statusCode code="completed" /> < effectiveTime value="672416409568" /> <value unit="" xsi:type="PQ" value="6.0" /> <referenceRange> <observationRange> <text>5.0-7.0</text> </observationRange> </ referenceRange> </observation> </component> <component> <observation moodCode="EVN" classCode="OBS"> <templateId root= "06.27.840.1.023953.10..4.2" /> <id nullFlavor="NA" /> < code codeSystem="local" code="MB" displayName="Microbiology" /> < statusCode code="completed" /> <effectiveTime value="[id number]" /> <value unit="" xsi:type="PQ" value="" /> <referenceRange> <observationRange> <text /> </observationRange> </referenceRange> </observation> </component> </ organizer> </entry> <entry> <organizer moodCode="EVN" classCode="BATTERY"> <templateId root="[id number]" /> <id nullFlavor= "NA" /> <code codeSystem="local" code="UAMICRO" displayName="UA MICROSCOPIC " /> <statusCode code="completed" /> <component> <observation moodCode="EVN" classCode="OBS"> <templateId root= "[id number]" /> <id nullFlavor="NA" /> < code codeSystem="local" code="BACU" displayName="UA BACTERIA" /> < statusCode code="completed" /> <effectiveTime value="[id number]" /> <value unit="" xsi:type="PQ" value="2+" /> < interpretationCode codeSystem="local" code="*" /> <referenceRange> <observationRange> <text>NEGATIVE</text> </ observationRange> </referenceRange> </observation> </ component> <component> <observation moodCode="EVN" classCode="OBS"> <templateId root="[id number]" /> <id nullFlavor="NA" /> <code codeSystem="local" code="EPIU" displayName=" UA EPITHELIAL CELLS" /> <statusCode code="completed" /> < effectiveTime value="[id number]" /> <value unit="epi/hpf" xsi:type= "PQ" value="1+" /> <referenceRange> <observationRange> <text>0 - 1+</text> </observationRange> </ referenceRange> </observation> </component> <component> <observation moodCode="EVN" classCode="OBS"> <templateId root= "840.1.877772.02.28.224.2" /> <id nullFlavor="NA" /> < code codeSystem="local" code="MUCUSU" displayName="UA MUCUS" /> < statusCode code="completed" /> <effectiveTime value="828983195758" /> <value unit="" xsi:type="PQ" value="1+" /> <referenceRange> <observationRange> <text>NEG TO 1+</text> </ observationRange> </referenceRange> </observation> </ component> <component> <observation moodCode="EVN" classCode="OBS"> <templateId root="06.27.840.1.972959.22.4.2" /> <id nullFlavor="NA" /> <code codeSystem="local" code="RBCU" displayName=" UA RBC" /> <statusCode code="completed" /> <effectiveTime value="575031250479" /> <value unit="rbc/hpf" xsi:type="PQ" value="0-3 " /> <referenceRange> <observationRange> <text> 0 - 3</text> </observationRange> </referenceRange> </ observation> </component> <component> <observation moodCode= "EVN" classCode="OBS"> <templateId root="2.16.840.1.686541.10..22.4.2 " /> <id nullFlavor="NA" /> <code codeSystem="local" code= "UAVOL" displayName="UA VOLUME FOR EXAM" /> <statusCode code="completed " /> <effectiveTime value="667458240776" /> <value unit="mL" xsi:type="PQ" value="12.0" /> <referenceRange> < observationRange> <text>(12mL STD)</text> </ observationRange> </referenceRange> </observation> </ component> <component> <observation moodCode="EVN" classCode="OBS"> <templateId root="2.16.840.1.200324.10..22.4.2" /> <id nullFlavor="NA" /> <code codeSystem="local" code="WBCU" displayName=" UA WBC" /> <statusCode code="completed" /> <effectiveTime value="368653921504" /> <value unit="wbc/hpf" xsi:type="PQ" value="10- 20" /> <interpretationCode codeSystem="local" code="*" /> < referenceRange> <observationRange> <text>0 - 5</text> </observationRange> </referenceRange> </observation> </component> </organizer> </entry> <entry> <organizer moodCode="EVN " classCode="BATTERY"> <templateId root="216.840.1.509654.10..22.4.1" / > <id nullFlavor="NA" /> <code codeSystem="local" code="CBCD" displayName="CBC W/DIFF" /> <statusCode code="completed" /> <component > <observation moodCode="EVN" classCode="OBS"> <templateId root= "216.840.1.540029.10..4.2" /> <id nullFlavor="NA" /> < code codeSystem="local" code="CBCCOM" displayName="COMMENT" /> < statusCode code="completed" /> <effectiveTime value="477697484981" /> <value xsi:type="ST" value="<pre><b>CBC W/DIFF</b> 729.932.067.821.030.922.1363359751.90.4NOTEDREVIEWED</pre>" /> <referenceRange> <observationRange> <text /> </observationRange> </referenceRange> </observation> </ component> <component> <observation moodCode="EVN" classCode="OBS"> <templateId root="216.840.1.326867.10..22.4.2" /> <id nullFlavor="NA" /> <code codeSystem="local" code="GR#" displayName= "GRANULOCYTE #" /> <statusCode code="completed" /> < effectiveTime value="678331095553" /> <value xsi:type="ST" value="<pre> <b>CBC W/DIFF</b> 6729.932.067.821.030.922.1149018921.90.4NOTEDREVIEWED</ pre>" /> <referenceRange> <observationRange> < text>2.0-9.0</text> </observationRange> </referenceRange> </observation> </component> <component> <observation moodCode="EVN" classCode="OBS"> <templateId root= "2.16.840.1.292078.10...4.2" /> <id nullFlavor="NA" /> < code codeSystem="local" code="GR%" displayName="GRANULOCYTE %" /> <statusCode code="completed" /> <effectiveTime value="558267068103 " /> <value xsi:type="ST" value="<pre><b>CBC W/DIFF</b> 6.64.729.932.067.821.030.922.9042304462..4NOTEDREVIEWED</pre>" /> <interpretationCode codeSystem="local" code="*" /> <referenceRange> <observationRange> <text>50-75</text> </ observationRange> </referenceRange> </observation> </ component> <component> <observation moodCode="EVN" classCode="OBS"> <templateId root="2.16.840.1.314441.10...4.2" /> <id nullFlavor="NA" /> <code codeSystem="local" code="LY#" displayName= "LYMPHOCYTE #" /> <statusCode code="completed" /> < effectiveTime value="627400542441" /> <value xsi:type="ST" value="<pre> <b>CBC W/DIFF</b> 6.64.729.932.067.821.030.922.6264519919..4NOTEDREVIEWED</ pre>" /> <interpretationCode codeSystem="local" code="*" /> < referenceRange> <observationRange> <text>1.0-4.0</text> </observationRange> </referenceRange> </observation > </component> <component> <observation moodCode="EVN" classCode="OBS"> <templateId root="2.16.840.1.391420.10.20.22.4.2" /> <id nullFlavor="NA" /> <code codeSystem="local" code="LY% " displayName="LYMPHOCYTE %" /> <statusCode code="completed" /> <effectiveTime value="923610887722" /> <value xsi:type="ST" value="<pre><b>CBC W/DIFF</b> 6.64.729.932.067.821.030.922.0530947540..4NOTEDREVIEWED</pre>" /> <interpretationCode codeSystem="local" code="*" /> <referenceRange> <observationRange> <text>20-30</text> </ observationRange> </referenceRange> </observation> </ component> <component> <observation moodCode="EVN" classCode="OBS"> <templateId root="2.16.840.1.169997.10.20.22.4.2" /> <id nullFlavor="NA" /> <code codeSystem="local" code="MCH" displayName= "MEAN CELL HGB" /> <statusCode code="completed" /> < effectiveTime value="787155324229" /> <value xsi:type="ST" value="<pre> <b>CBC W/DIFF</b> 6.64.729.932.067.821.030.922.3284520845..4NOTEDREVIEWED</ pre>" /> <interpretationCode codeSystem="local" code="*" /> < referenceRange> <observationRange> <text>27.0-33.0</text > </observationRange> </referenceRange> </observation > </component> <component> <observation moodCode="EVN" classCode="OBS"> <templateId root="2.16.840.1.267948.10.20.22.4.2" /> <id nullFlavor="NA" /> <code codeSystem="local" code="MCHC" displayName="MEAN CELL HGB CONCENTRATION" /> <statusCode code= "completed" /> <effectiveTime value="110718028952" /> <value xsi:type="ST" value="<pre><b>CBC W/DIFF</b> 6.64.729.932.067.821.030.922.1125958806..4NOTEDREVIEWED</pre>" /> <interpretationCode codeSystem="local" code="*" /> <referenceRange> <observationRange> <text>32.0-37.0</text> </ observationRange> </referenceRange> </observation> </ component> <component> <observation moodCode="EVN" classCode="OBS"> <templateId root="2.16.840.1.993621.10.20.22.4.2" /> <id nullFlavor="NA" /> <code codeSystem="local" code="MCV" displayName= "MEAN CELL VOLUME" /> <statusCode code="completed" /> < effectiveTime value="233501499142" /> <value xsi:type="ST" value="<pre> <b>CBC W/DIFF</b> 6.64.729.932.067.821.030.922.6200864067..4NOTEDREVIEWED</ pre>" /> <interpretationCode codeSystem="local" code="*" /> < referenceRange> <observationRange> <text>80.0-100.0</ text> </observationRange> </referenceRange> </ observation> </component> <component> <observation moodCode= "EVN" classCode="OBS"> <templateId root="216.840.1.678786.10..22.4.2 " /> <id nullFlavor="NA" /> <code codeSystem="local" code="MO# " displayName="MONOCYTE #" /> <statusCode code="completed" /> <effectiveTime value="585305065944" /> <value xsi:type="ST" value="<pre ><b>CBC W/DIFF</b> 6.64.729.932.067.821.030.922.9438506658..4NOTEDREVIEWED< /pre>" /> <referenceRange> <observationRange> < text>0.1-1.0</text> </observationRange> </referenceRange> </observation> </component> <component> <observation moodCode="EVN" classCode="OBS"> <templateId root= "216.840.1.656411.10...4.2" /> <id nullFlavor="NA" /> < code codeSystem="local" code="MO%" displayName="MONOCYTE %" /> <statusCode code="completed" /> <effectiveTime value="021893782372" /> <value xsi:type="ST" value="<pre><b>CBC W/DIFF</b> 6.64.72.932.067.821.030.922.2679272415..4NOTEDREVIEWED</pre>" /> <referenceRange> <observationRange> <text>4-6</text> </observationRange> </referenceRange> </observation> </component> <component> <observation moodCode="EVN" classCode= "OBS"> <templateId root="216.840.1.621418.10..4.2" /> < id nullFlavor="NA" /> <code codeSystem="local" code="OVAL" displayName= "OVALOCYTES" /> <statusCode code="completed" /> < effectiveTime value="617449741629" /> <value xsi:type="ST" value="<pre> <b>CBC W/DIFF</b> 6.64.729.932.067.821.030.922.0556428676..4NOTEDREVIEWED</ pre>" /> <referenceRange> <observationRange> < text /> </observationRange> </referenceRange> </ observation> </component> <component> <observation moodCode= "EVN" classCode="OBS"> <templateId root="216.840.1.830997.10.4.2 " /> <id nullFlavor="NA" /> <code codeSystem="local" code="RBC " displayName="RED BLOOD CELL" /> <statusCode code="completed" /> <effectiveTime value="837499980282" /> <value xsi:type="ST" value= "<pre><b>CBC W/DIFF</b> 6.64.729.932.067.821.030.922.8650687894..4NOTEDREVIEWED</pre>" /> <referenceRange> <observationRange> <text>4.00-6.00</ text> </observationRange> </referenceRange> </ observation> </component> <component> <observation moodCode= "EVN" classCode="OBS"> <templateId root="16.840.1.524546.02.28.22.4.2 " /> <id nullFlavor="NA" /> <code codeSystem="local" code="RDW " displayName="RED CELL DISTRIBUTION WIDTH" /> <statusCode code= "completed" /> <effectiveTime value="280635015900" /> <value xsi:type="ST" value="<pre><b>CBC W/DIFF</b> 6.64.729.932.067.821.030.922.9261424864..4NOTEDREVIEWED</pre>" /> <interpretationCode codeSystem="local" code="*" /> <referenceRange> <observationRange> <text>11.0-15.6</text> </ observationRange> </referenceRange> </observation> </ component> <component> <observation moodCode="EVN" classCode="OBS"> <templateId root="2.16.840.1.961119.10...4.2" /> <id nullFlavor="NA" /> <code codeSystem="local" code="WBC" displayName= "WHITE BLOOD CELL" /> <statusCode code="completed" /> < effectiveTime value="066404779206" /> <value xsi:type="ST" value="<pre> <b>CBC W/DIFF</b> 6.64.729.932.067.821.030.922.7099180162.4NOTEDREVIEWED</ pre>" /> <referenceRange> <observationRange> < text>5.0-10.0</text> </observationRange> </referenceRange> </observation> </component> <component> <observation moodCode="EVN" classCode="OBS"> <templateId root= "2.16.840.1.489737.10...4.2" /> <id nullFlavor="NA" /> < code codeSystem="local" code="HGBT" displayName="HEMOGLOBIN" /> < statusCode code="completed" /> <effectiveTime value="712291236156" /> <value xsi:type="ST" value="<pre><b>CBC W/DIFF</b> 6.64.729.932.067.821.030.922.0061534959..90.4NOTEDREVIEWED</pre>" /> <interpretationCode codeSystem="local" code="*" /> <referenceRange> <observationRange> <text>12.0-16.0</text> </ observationRange> </referenceRange> </observation> </ component> <component> <observation moodCode="EVN" classCode="OBS"> <templateId root="2.16.840.1.326781.10.20.22.4.2" /> <id nullFlavor="NA" /> <code codeSystem="local" code="HCTT" displayName= "HEMATOCRIT" /> <statusCode code="completed" /> < effectiveTime value="033168833416" /> <value xsi:type="ST" value="<pre> <b>CBC W/DIFF</b> 6.729.932.067.821.030.922.7414730600..90.4NOTEDREVIEWED</ pre>" /> <interpretationCode codeSystem="local" code="*" /> < referenceRange> <observationRange> <text>37.0-47.0</text > </observationRange> </referenceRange> </observation > </component> <component> <observation moodCode="EVN" classCode="OBS"> <templateId root="2.16.840.1.368276.10.20.22.4.2" /> <id nullFlavor="NA" /> <code codeSystem="local" code="PLT" displayName="PLATELET COUNT" /> <statusCode code="completed" /> <effectiveTime value="212241090311" /> <value xsi:type="ST" value="< pre><b>CBC W/DIFF</b> 6.64.729.932.067.821.030.922.8017782357.30.90.4NOTEDREVIEWED</pre>" /> <referenceRange> <observationRange> <text>150-450</text > </observationRange> </referenceRange> </observation > </component> <component> <observation moodCode="EVN" classCode="OBS"> <templateId root="216.840.1.044600.10.4.2" /> <id nullFlavor="NA" /> <code codeSystem="local" code="MB" displayName="Microbiology" /> <statusCode code="completed" /> <effectiveTime value="808455969927" /> <value xsi:type="ST" value="<pre ><b>CBC W/DIFF</b> 6.64.729.932.067.821.030.922.2300781952.30.90.4NOTEDREVIEWED< /pre>" /> <referenceRange> <observationRange> < text /> </observationRange> </referenceRange> </ observation> </component> </organizer> </entry> <entry> <organizer moodCode="EVN" classCode="BATTERY"> <templateId root= "16.840.1.343794.10...4.1" /> <id nullFlavor="NA" /> <code codeSystem="local" code="METAB" displayName="METABOLIC PANEL, BASIC" /> < statusCode code="completed" /> <component> <observation moodCode= "EVN" classCode="OBS"> <templateId root="16.840.1.299256.10.4.2 " /> <id nullFlavor="NA" /> <code codeSystem="local" code="K" displayName="POTASSIUM" /> <statusCode code="completed" /> < effectiveTime value="143495450056" /> <value xsi:type="ST" value="<pre> <b>METABOLIC PANEL, BASIC</b> 1362.445189442668.8> 60> 609.5</pre>" /> <interpretationCode codeSystem="local" code="*" /> <referenceRange> <observationRange> <text>3.5-5.3</text> </ observationRange> </referenceRange> </observation> </ component> <component> <observation moodCode="EVN" classCode="OBS"> <templateId root="2.16.840.1.867929.10..22.4.2" /> <id nullFlavor="NA" /> <code codeSystem="local" code="eGFR" displayName= "EST GFR (MDRD)" /> <statusCode code="completed" /> < effectiveTime value="125931898940" /> <value xsi:type="ST" value="<pre> <b>METABOLIC PANEL, BASIC</b> 1362.011718161406.8> 60> 609.5</pre>" /> <referenceRange> <observationRange> <text>> 59</text > </observationRange> </referenceRange> </observation > </component> <component> <observation moodCode="EVN" classCode="OBS"> <templateId root="2.16.840.1.098995.10..22.4.2" /> <id nullFlavor="NA" /> <code codeSystem="local" code="GAP" displayName="ANION GAP" /> <statusCode code="completed" /> < effectiveTime value="936960768593" /> <value xsi:type="ST" value="<pre> <b>METABOLIC PANEL, BASIC</b> 1362.625680183028.8> 60> 609.5</pre>" /> <referenceRange> <observationRange> <text>5-15</text> </observationRange> </referenceRange> </observation> </component> <component> <observation moodCode="EVN" classCode= "OBS"> <templateId root="216.840.1.021393.10.20.22.4.2" /> < id nullFlavor="NA" /> <code codeSystem="local" code="eCrCl" displayName ="EST CrCl (CG)" /> <statusCode code="completed" /> < effectiveTime value="701396755456" /> <value xsi:type="ST" value="<pre> <b>METABOLIC PANEL, BASIC</b> 1362.791748240966.8> 60> 609.5</pre>" /> <referenceRange> <observationRange> <text>> 59</text > </observationRange> </referenceRange> </observation > </component> <component> <observation moodCode="EVN" classCode="OBS"> <templateId root="216.840.1.520613.10..22.4.2" /> <id nullFlavor="NA" /> <code codeSystem="local" code="GLU" displayName="GLUCOSE" /> <statusCode code="completed" /> < effectiveTime value="418671769198" /> <value xsi:type="ST" value="<pre> <b>METABOLIC PANEL, BASIC</b> 1362.999904618384.8> 60> 609.5</pre>" /> <referenceRange> <observationRange> <text>70-99</text> </observationRange> </referenceRange> </observation> </component> <component> <observation moodCode="EVN" classCode ="OBS"> <templateId root="2.16.840.1.075816.10.20.22.4.2" /> < id nullFlavor="NA" /> <code codeSystem="local" code="CA" displayName= "CALCIUM" /> <statusCode code="completed" /> <effectiveTime value="459982292098" /> <value xsi:type="ST" value="<pre><b>METABOLIC PANEL, BASIC</b> 1362.126905268336.8> 60> 609.5</pre>" /> < referenceRange> <observationRange> <text>8.5-10.1</text > </observationRange> </referenceRange> </observation > </component> <component> <observation moodCode="EVN" classCode="OBS"> <templateId root="2.16.840.1.227481.10..22.4.2" /> <id nullFlavor="NA" /> <code codeSystem="local" code="BUN" displayName="BLOOD UREA NITROGEN" /> <statusCode code="completed" /> <effectiveTime value="634366992767" /> <value xsi:type="ST" value="<pre><b>METABOLIC PANEL, BASIC</b> 1362.239717424018.8> 60> 609.5</pre>" /> <referenceRange> <observationRange> <text>7- 20</text> </observationRange> </referenceRange> </ observation> </component> <component> <observation moodCode= "EVN" classCode="OBS"> <templateId root="2.16.840.1.644387.10..22.4.2 " /> <id nullFlavor="NA" /> <code codeSystem="local" code= "CREAT" displayName="CREATININE" /> <statusCode code="completed" /> <effectiveTime value="456364277542" /> <value xsi:type="ST" value="<pre><b>METABOLIC PANEL, BASIC</b> 1362.074242483581.8> 60> 609.5</pre>" /> <referenceRange> <observationRange> <text> 0.6-1.0</text> </observationRange> </referenceRange> </observation> </component> <component> <observation moodCode= "EVN" classCode="OBS"> <templateId root="216.840.1.463882.10.20.22.4.2 " /> <id nullFlavor="NA" /> <code codeSystem="local" code="NA " displayName="SODIUM" /> <statusCode code="completed" /> < effectiveTime value="731535593568" /> <value xsi:type="ST" value="<pre> <b>METABOLIC PANEL, BASIC</b> 1362.195101770850.8> 60> 609.5</pre>" /> <referenceRange> <observationRange> <text>135-148</text > </observationRange> </referenceRange> </observation > </component> <component> <observation moodCode="EVN" classCode="OBS"> <templateId root="2.840.1.977576.10.20.22.4.2" /> <id nullFlavor="NA" /> <code codeSystem="local" code="CL" displayName="CHLORIDE" /> <statusCode code="completed" /> < effectiveTime value="651704521536" /> <value xsi:type="ST" value="<pre> <b>METABOLIC PANEL, BASIC</b> 1362.700781095433.8> 60> 609.5</pre>" /> <interpretationCode codeSystem="local" code="*" /> <referenceRange> <observationRange> <text>98-110</text> </ observationRange> </referenceRange> </observation> </ component> <component> <observation moodCode="EVN" classCode="OBS"> <templateId root="840.1.308484.10.20.22.4.2" /> <id nullFlavor="NA" /> <code codeSystem="local" code="CO2" displayName= "CARBON DIOXIDE" /> <statusCode code="completed" /> < effectiveTime value="340372231197" /> <value xsi:type="ST" value="<pre> <b>METABOLIC PANEL, BASIC</b> 1362.120511894708.8> 60> 609.5</pre>" /> <referenceRange> <observationRange> <text>21-32</text> </observationRange> </referenceRange> </observation> </component> <component> <observation moodCode="EVN" classCode ="OBS"> <templateId root="06.27.840.1.981343.10..22.4.2" /> < id nullFlavor="NA" /> <code codeSystem="local" code="MB" displayName= "Microbiology" /> <statusCode code="completed" /> < effectiveTime value="710185050517" /> <value xsi:type="ST" value="<pre> <b>METABOLIC PANEL, BASIC</b> 1362.821940553662.8> 60> 609.5</pre>" /> <referenceRange> <observationRange> <text /> </observationRange> </referenceRange> </observation> </ component> </organizer> </entry> <entry> <organizer moodCode="EVN" classCode="BATTERY"> <templateId root="216.840.1.730625.10.20.22.4.1" /> <id nullFlavor="NA" /> <code codeSystem="local" code="UA" displayName= "URINALYSIS, ROUTINE" /> <statusCode code="completed" /> <component> <observation moodCode="EVN" classCode="OBS"> <templateId root= "216.840.1.595985.10.22.4.2" /> <id nullFlavor="NA" /> < code codeSystem="local" code="LEUESU" displayName="UA LEUKOCYTE ESTERASE DIPSTICK" /> <statusCode code="completed" /> <effectiveTime value="403319957931" /> <value unit="" xsi:type="PQ" value="NEGATIVE" / > <referenceRange> <observationRange> <text> NEGATIVE</text> </observationRange> </referenceRange> </observation> </component> <component> <observation moodCode ="EVN" classCode="OBS"> <templateId root= "06.27.840.1.426748.02.28.22.4.2" /> <id nullFlavor="NA" /> < code codeSystem="local" code="NITRIU" displayName="UA NITRITE DIPSTICK" /> <statusCode code="completed" /> <effectiveTime value="319455150143 " /> <value unit="" xsi:type="PQ" value="NEGATIVE" /> < referenceRange> <observationRange> <text>NEGATIVE</text > </observationRange> </referenceRange> </observation > </component> <component> <observation moodCode="EVN" classCode="OBS"> <templateId root="06.27.840.1.018705.10.4.2" /> <id nullFlavor="NA" /> <code codeSystem="local" code="PROTEIU " displayName="UA PROTEIN DIPSTICK" /> <statusCode code="completed" /> <effectiveTime value="849317663177" /> <value unit="" xsi: type="PQ" value="NEGATIVE" /> <referenceRange> < observationRange> <text>NEGATIVE</text> </ observationRange> </referenceRange> </observation> </ component> <component> <observation moodCode="EVN" classCode="OBS"> <templateId root="216.840.1.221609.10...4.2" /> <id nullFlavor="NA" /> <code codeSystem="local" code="DGLUU" displayName= "UA GLUCOSE DIPSTICK" /> <statusCode code="completed" /> < effectiveTime value="012221752025" /> <value unit="" xsi:type="PQ" value="NEGATIVE" /> <referenceRange> <observationRange> <text>NEGATIVE</text> </observationRange> </ referenceRange> </observation> </component> <component> <observation moodCode="EVN" classCode="OBS"> <templateId root= "216.840.1.738320.10..4.2" /> <id nullFlavor="NA" /> < code codeSystem="local" code="KETONU" displayName="UA KETONE DIPSTICK" /> <statusCode code="completed" /> <effectiveTime value="993872724462 " /> <value unit="" xsi:type="PQ" value="2+" /> < interpretationCode codeSystem="local" code="*" /> <referenceRange> <observationRange> <text>NEGATIVE</text> </ observationRange> </referenceRange> </observation> </ component> <component> <observation moodCode="EVN" classCode="OBS"> <templateId root="216.840.1.087212.10...4.2" /> <id nullFlavor="NA" /> <code codeSystem="local" code="UROBILU" displayName= "UA UROBILINOGEN DIPSTICK" /> <statusCode code="completed" /> <effectiveTime value="032591424239" /> <value unit="" xsi:type="PQ" value="NORMAL" /> <referenceRange> <observationRange> <text>NORMAL</text> </observationRange> </ referenceRange> </observation> </component> <component> <observation moodCode="EVN" classCode="OBS"> <templateId root= "16.840.1.090481.10.20.22.4.2" /> <id nullFlavor="NA" /> < code codeSystem="local" code="BILU" displayName="UA BILIRUBIN DIPSTICK" /> <statusCode code="completed" /> <effectiveTime value="812317599586 " /> <value unit="" xsi:type="PQ" value="1+" /> < interpretationCode codeSystem="local" code="*" /> <referenceRange> <observationRange> <text>NEGATIVE</text> </ observationRange> </referenceRange> </observation> </ component> <component> <observation moodCode="EVN" classCode="OBS"> <templateId root="16.840.1.257813.10..4.2" /> <id nullFlavor="NA" /> <code codeSystem="local" code="NOLVIA" displayName="UA BLOOD DIPSTICK" /> <statusCode code="completed" /> < effectiveTime value="739230463916" /> <value unit="" xsi:type="PQ" value="TRACE" /> <interpretationCode codeSystem="local" code="*" /> <referenceRange> <observationRange> <text> NEGATIVE</text> </observationRange> </referenceRange> </observation> </component> <component> <observation moodCode ="EVN" classCode="OBS"> <templateId root= "16.840.1.915413.10.20.22.4.2" /> <id nullFlavor="NA" /> < code codeSystem="local" code="SPGRU" displayName="UA SPECIFIC GRAVITY" /> <statusCode code="completed" /> <effectiveTime value="642426798716 " /> <value unit="" xsi:type="PQ" value="1.015" /> < referenceRange> <observationRange> <text>1.015-1.025</ text> </observationRange> </referenceRange> </ observation> </component> <component> <observation moodCode= "EVN" classCode="OBS"> <templateId root="16.840.1.207111.10..22.4.2 " /> <id nullFlavor="NA" /> <code codeSystem="local" code="DIETER " displayName="UR PH" /> <statusCode code="completed" /> < effectiveTime value="[id number]" /> <value unit="" xsi:type="PQ" value="6.0" /> <referenceRange> <observationRange> <text>5.0-7.0</text> </observationRange> </ referenceRange> </observation> </component> <component> <observation moodCode="EVN" classCode="OBS"> <templateId root= "[id number]" /> <id nullFlavor="NA" /> < code codeSystem="local" code="MB" displayName="Microbiology" /> < statusCode code="completed" /> <effectiveTime value="[id number]" /> <value unit="" xsi:type="PQ" value="" /> <referenceRange> <observationRange> <text /> </observationRange> </referenceRange> </observation> </component> </ organizer> </entry> <entry> <organizer moodCode="EVN" classCode="BATTERY"> <templateId root="[id number]..22.4.1" /> <id nullFlavor= "NA" /> <code codeSystem="local" code="UAMICRO" displayName="UA MICROSCOPIC " /> <statusCode code="completed" /> <component> <observation moodCode="EVN" classCode="OBS"> <templateId root= "[id number]" /> <id nullFlavor="NA" /> < code codeSystem="local" code="BACU" displayName="UA BACTERIA" /> < statusCode code="completed" /> <effectiveTime value="698257355525" /> <value unit="" xsi:type="PQ" value="2+" /> < interpretationCode codeSystem="local" code="*" /> <referenceRange> <observationRange> <text>NEGATIVE</text> </ observationRange> </referenceRange> </observation> </ component> <component> <observation moodCode="EVN" classCode="OBS"> <templateId root="840.1.119625.02.28.22.4.2" /> <id nullFlavor="NA" /> <code codeSystem="local" code="EPIU" displayName=" UA EPITHELIAL CELLS" /> <statusCode code="completed" /> < effectiveTime value="885333025841" /> <value unit="epi/hpf" xsi:type= "PQ" value="2+" /> <interpretationCode codeSystem="local" code="*" /> <referenceRange> <observationRange> <text>0 - 1 +</text> </observationRange> </referenceRange> </ observation> </component> <component> <observation moodCode= "EVN" classCode="OBS"> <templateId root="06.27.840.1.680814.02.28.22.4.2 " /> <id nullFlavor="NA" /> <code codeSystem="local" code= "MUCUSU" displayName="UA MUCUS" /> <statusCode code="completed" /> <effectiveTime value="426414379799" /> <value unit="" xsi:type= "PQ" value="3+" /> <interpretationCode codeSystem="local" code="*" /> <referenceRange> <observationRange> <text>NEG TO 1+</text> </observationRange> </referenceRange> </ observation> </component> <component> <observation moodCode= "EVN" classCode="OBS"> <templateId root="2.16.840.1.148560.02.28.224.2 " /> <id nullFlavor="NA" /> <code codeSystem="local" code= "RBCU" displayName="UA RBC" /> <statusCode code="completed" /> <effectiveTime value="095923777546" /> <value unit="rbc/hpf" xsi:type ="PQ" value="0-3" /> <referenceRange> <observationRange> <text>0 - 3</text> </observationRange> </ referenceRange> </observation> </component> <component> <observation moodCode="EVN" classCode="OBS"> <templateId root= "2.16.840.1.356603.02.28.22.4.2" /> <id nullFlavor="NA" /> < code codeSystem="local" code="UAVOL" displayName="UA VOLUME FOR EXAM" /> <statusCode code="completed" /> <effectiveTime value="982324770551" /> <value unit="mL" xsi:type="PQ" value="12.0" /> < referenceRange> <observationRange> <text>(12mL STD)</ text> </observationRange> </referenceRange> </ observation> </component> <component> <observation moodCode= "EVN" classCode="OBS"> <templateId root="216.840.1.048334.10..22.4.2 " /> <id nullFlavor="NA" /> <code codeSystem="local" code= "WBCU" displayName="UA WBC" /> <statusCode code="completed" /> <effectiveTime value="114915226229" /> <value unit="wbc/hpf" xsi:type ="PQ" value="0-1" /> <referenceRange> <observationRange> <text>0 - 5</text> </observationRange> </ referenceRange> </observation> </component> </organizer> </entry > <entry> <organizer moodCode="EVN" classCode="BATTERY"> <templateId root="216.840.1.381588.10..22.4.1" /> <id nullFlavor="NA" /> <code codeSystem="local" code="PREGU" displayName="UR TEST" /> < statusCode code="completed" /> <component> <observation moodCode= "EVN" classCode="OBS"> <templateId root="216.840.1.595506.10..22.4.2 " /> <id nullFlavor="NA" /> <code codeSystem="local" code= "PREGU" displayName="UR TEST" /> <statusCode code="completed " /> <effectiveTime value="470945905308" /> <value xsi:type= "ST" value="<pre><b>UR TEST</b> NEGATIVE</pre>" /> < referenceRange> <observationRange> <text>NEGATIVE</text > </observationRange> </referenceRange> </observation > </component> <component> <observation moodCode="EVN" classCode="OBS"> <templateId root="2.16.840.1.666258.10..4.2" /> <id nullFlavor="NA" /> <code codeSystem="local" code="MB" displayName="Microbiology" /> <statusCode code="completed" /> <effectiveTime value="205722392721" /> <value xsi:type="ST" value="<pre ><b>UR TEST</b> NEGATIVE</pre>" /> <referenceRange> <observationRange> <text /> </observationRange> </referenceRange> </observation> </component> </organizer> </entry> <entry> <organizer moodCode="EVN" classCode="BATTERY"> < templateId root="06.27.840.1.469727.10..4.1" /> <id nullFlavor="NA" /> <code codeSystem="local" code="CBCD" displayName="CBC W/DIFF" /> < statusCode code="completed" /> <component> <observation moodCode= "EVN" classCode="OBS"> <templateId root="06.27.840.1.160634...4.2 " /> <id nullFlavor="NA" /> <code codeSystem="local" code="BA# " displayName="BASOPHIL #" /> <statusCode code="completed" /> <effectiveTime value="678503376939" /> <value unit="k/cumm" xsi:type= "PQ" value="0.0" /> <referenceRange> <observationRange> <text>0.0-0.2</text> </observationRange> </ referenceRange> </observation> </component> <component> <observation moodCode="EVN" classCode="OBS"> <templateId root= "06.27.840.1.686175.02.28.22.4.2" /> <id nullFlavor="NA" /> < code codeSystem="local" code="BA%" displayName="BASOPHIL %" /> <statusCode code="completed" /> <effectiveTime value="085934329909" /> <value unit="%" xsi:type="PQ" value="1" /> < referenceRange> <observationRange> <text>0-1</text> </observationRange> </referenceRange> </observation> </component> <component> <observation moodCode="EVN" classCode= "OBS"> <templateId root="2.16.840.1.663918.02.28.22.4.2" /> < id nullFlavor="NA" /> <code codeSystem="local" code="EO#" displayName= "EOSINOPHIL #" /> <statusCode code="completed" /> < effectiveTime value="676410653813" /> <value unit="k/cumm" xsi:type="PQ " value="0.1" /> <referenceRange> <observationRange> <text>0.1-0.5</text> </observationRange> </ referenceRange> </observation> </component> <component> <observation moodCode="EVN" classCode="OBS"> <templateId root= "2.16.840.1.761500.02.28.22.4.2" /> <id nullFlavor="NA" /> < code codeSystem="local" code="EO%" displayName="EOSINOPHIL %" /> <statusCode code="completed" /> <effectiveTime value="565004022021" /> <value unit="%" xsi:type="PQ" value="1" /> < interpretationCode codeSystem="local" code="*" /> <referenceRange> <observationRange> <text>2-4</text> </ observationRange> </referenceRange> </observation> </ component> <component> <observation moodCode="EVN" classCode="OBS"> <templateId root="06.27.840.1.776614.1022.4.2" /> <id nullFlavor="NA" /> <code codeSystem="local" code="GR#" displayName= "GRANULOCYTE #" /> <statusCode code="completed" /> < effectiveTime value="150778219406" /> <value unit="k/cumm" xsi:type="PQ " value="3.0" /> <referenceRange> <observationRange> <text>2.0-9.0</text> </observationRange> </ referenceRange> </observation> </component> <component> <observation moodCode="EVN" classCode="OBS"> <templateId root= "06.27.840.1.245453.02.28.22.4.2" /> <id nullFlavor="NA" /> < code codeSystem="local" code="GR%" displayName="GRANULOCYTE %" /> <statusCode code="completed" /> <effectiveTime value="424358222580 " /> <value unit="%" xsi:type="PQ" value="57" /> < referenceRange> <observationRange> <text>50-75</text> </observationRange> </referenceRange> </observation> </component> <component> <observation moodCode="EVN" classCode= "OBS"> <templateId root="16.840.1.018474.1022.4.2" /> < id nullFlavor="NA" /> <code codeSystem="local" code="LY#" displayName= "LYMPHOCYTE #" /> <statusCode code="completed" /> < effectiveTime value="273590507444" /> <value unit="k/cumm" xsi:type="PQ " value="1.8" /> <referenceRange> <observationRange> <text>1.0-4.0</text> </observationRange> </ referenceRange> </observation> </component> <component> <observation moodCode="EVN" classCode="OBS"> <templateId root= "216.840.1.694467.10.4.2" /> <id nullFlavor="NA" /> < code codeSystem="local" code="LY%" displayName="LYMPHOCYTE %" /> <statusCode code="completed" /> <effectiveTime value="412973289380" /> <value unit="%" xsi:type="PQ" value="34" /> < interpretationCode codeSystem="local" code="*" /> <referenceRange> <observationRange> <text>20-30</text> </ observationRange> </referenceRange> </observation> </ component> <component> <observation moodCode="EVN" classCode="OBS"> <templateId root="06.27.840.1.260469.02.28.22.4.2" /> <id nullFlavor="NA" /> <code codeSystem="local" code="MCH" displayName= "MEAN CELL HGB" /> <statusCode code="completed" /> < effectiveTime value="533468839202" /> <value unit="pg" xsi:type="PQ" value="20.4" /> <interpretationCode codeSystem="local" code="*" /> <referenceRange> <observationRange> <text>27.0- 33.0</text> </observationRange> </referenceRange> </ observation> </component> <component> <observation moodCode= "EVN" classCode="OBS"> <templateId root="06.27.840.1.406932.02.28.22.4.2 " /> <id nullFlavor="NA" /> <code codeSystem="local" code= "MCHC" displayName="MEAN CELL HGB CONCENTRATION" /> <statusCode code= "completed" /> <effectiveTime value="475457277961" /> <value unit="g/dL" xsi:type="PQ" value="30.3" /> <interpretationCode codeSystem="local" code="*" /> <referenceRange> < observationRange> <text>32.0-37.0</text> </ observationRange> </referenceRange> </observation> </ component> <component> <observation moodCode="EVN" classCode="OBS"> <templateId root="06.27.840.1.518864.22.4.2" /> <id nullFlavor="NA" /> <code codeSystem="local" code="MCV" displayName= "MEAN CELL VOLUME" /> <statusCode code="completed" /> < effectiveTime value="725222851550" /> <value unit="fl" xsi:type="PQ" value="67.4" /> <interpretationCode codeSystem="local" code="*" /> <referenceRange> <observationRange> <text>80.0- 100.0</text> </observationRange> </referenceRange> </ observation> </component> <component> <observation moodCode= "EVN" classCode="OBS"> <templateId root="06.27.840.1.292878.10.2022.4.2 " /> <id nullFlavor="NA" /> <code codeSystem="local" code="MO# " displayName="MONOCYTE #" /> <statusCode code="completed" /> <effectiveTime value="443691837865" /> <value unit="k/cumm" xsi:type= "PQ" value="0.4" /> <referenceRange> <observationRange> <text>0.1-1.0</text> </observationRange> </ referenceRange> </observation> </component> <component> <observation moodCode="EVN" classCode="OBS"> <templateId root= "216.840.1.056175.10..4.2" /> <id nullFlavor="NA" /> < code codeSystem="local" code="MO%" displayName="MONOCYTE %" /> <statusCode code="completed" /> <effectiveTime value="868220842322" /> <value unit="%" xsi:type="PQ" value="7" /> < interpretationCode codeSystem="local" code="*" /> <referenceRange> <observationRange> <text>4-6</text> </ observationRange> </referenceRange> </observation> </ component> <component> <observation moodCode="EVN" classCode="OBS"> <templateId root="06.27.840.1.909755.10.4.2" /> <id nullFlavor="NA" /> <code codeSystem="local" code="OVAL" displayName= "OVALOCYTES" /> <statusCode code="completed" /> < effectiveTime value="234596411292" /> <value unit="" xsi:type="PQ" value="NOTED" /> <referenceRange> <observationRange> <text /> </observationRange> </referenceRange> </observation> </component> <component> <observation moodCode ="EVN" classCode="OBS"> <templateId root= "06.27.840.1.985682.102022.4.2" /> <id nullFlavor="NA" /> < code codeSystem="local" code="RBC" displayName="RED BLOOD CELL" /> < statusCode code="completed" /> <effectiveTime value="432258822775" /> <value unit="m/cumm" xsi:type="PQ" value="3.77" /> < interpretationCode codeSystem="local" code="*" /> <referenceRange> <observationRange> <text>4.00-6.00</text> </ observationRange> </referenceRange> </observation> </ component> <component> <observation moodCode="EVN" classCode="OBS"> <templateId root="216.840.1.905550.10.20.22.4.2" /> <id nullFlavor="NA" /> <code codeSystem="local" code="RDW" displayName=" RED CELL DISTRIBUTION WIDTH" /> <statusCode code="completed" /> <effectiveTime value="191525956903" /> <value unit="%" xsi:type= "PQ" value="22.0" /> <interpretationCode codeSystem="local" code="*" / > <referenceRange> <observationRange> <text> 11.0-15.6</text> </observationRange> </referenceRange> </observation> </component> <component> <observation moodCode="EVN" classCode="OBS"> <templateId root= "216.840.1.784296.10.20.22.4.2" /> <id nullFlavor="NA" /> < code codeSystem="local" code="WBC" displayName="WHITE BLOOD CELL" /> < statusCode code="completed" /> <effectiveTime value="805678116051" /> <value unit="k/cumm" xsi:type="PQ" value="5.3" /> < referenceRange> <observationRange> <text>5.0-10.0</text > </observationRange> </referenceRange> </observation > </component> <component> <observation moodCode="EVN" classCode="OBS"> <templateId root="216.840.1.148284.10..22.4.2" /> <id nullFlavor="NA" /> <code codeSystem="local" code="HGBT" displayName="HEMOGLOBIN" /> <statusCode code="completed" /> < effectiveTime value="897060398979" /> <value unit="gm/dL" xsi:type="PQ " value="7.7" /> <interpretationCode codeSystem="local" code="*" /> <referenceRange> <observationRange> <text>12.0- 16.0</text> </observationRange> </referenceRange> </ observation> </component> <component> <observation moodCode= "EVN" classCode="OBS"> <templateId root="06.27.840.1.062888.02.28.224.2 " /> <id nullFlavor="NA" /> <code codeSystem="local" code= "HCTT" displayName="HEMATOCRIT" /> <statusCode code="completed" /> <effectiveTime value="629854257422" /> <value unit="%" xsi: type="PQ" value="25.4" /> <interpretationCode codeSystem="local" code= "*" /> <referenceRange> <observationRange> < text>37.0-47.0</text> </observationRange> </referenceRange> </observation> </component> <component> <observation moodCode="EVN" classCode="OBS"> <templateId root= "06.27.840.1.633224.10.20.22.4.2" /> <id nullFlavor="NA" /> < code codeSystem="local" code="PLT" displayName="PLATELET COUNT" /> < statusCode code="completed" /> <effectiveTime value="045129336589" /> <value unit="k/cumm" xsi:type="PQ" value="284" /> < referenceRange> <observationRange> <text>150-400</text> </observationRange> </referenceRange> </observation > </component> <component> <observation moodCode="EVN" classCode="OBS"> <templateId root="16.840.1.282812.10..22.4.2" /> <id nullFlavor="NA" /> <code codeSystem="local" code="MB" displayName="Microbiology" /> <statusCode code="completed" /> <effectiveTime value="368711309246" /> <value unit="" xsi:type="PQ" value="" /> <referenceRange> <observationRange> <text /> </observationRange> </referenceRange> </ observation> </component> </organizer> </entry> <entry> <organizer moodCode="EVN" classCode="BATTERY"> <templateId root= "06.27.840.1.170329.10..22.4.1" /> <id nullFlavor="NA" /> <code codeSystem="local" code="PREG" displayName=" TEST, SERUM" /> < statusCode code="completed" /> <component> <observation moodCode= "EVN" classCode="OBS"> <templateId root="06.27.840.1.694782.10..22.4.2 " /> <id nullFlavor="NA" /> <code codeSystem="local" code= "PREG" displayName=" TEST, SERUM" /> <statusCode code= "completed" /> <effectiveTime value="778531078219" /> <value xsi:type="ST" value="<pre><b> TEST, SERUM</b> NEGATIVE</pre>" /> <referenceRange> <observationRange> <text>NEGATIVE</ text> </observationRange> </referenceRange> </ observation> </component> <component> <observation moodCode= "EVN" classCode="OBS"> <templateId root="216.840.1.484998.10..4.2 " /> <id nullFlavor="NA" /> <code codeSystem="local" code="MB " displayName="Microbiology" /> <statusCode code="completed" /> <effectiveTime value="880636619982" /> <value xsi:type="ST" value="< pre><b> TEST, SERUM</b> NEGATIVE</pre>" /> <referenceRange> <observationRange> <text /> </observationRange > </referenceRange> </observation> </component> </ organizer> </entry> <entry> <organizer moodCode="EVN" classCode="BATTERY"> <templateId root="216.840.1.918705.10..22.4.1" /> <id nullFlavor= "NA" /> <code codeSystem="local" code="METABC" displayName="METABOLIC PANEL , COMPREHN" /> <statusCode code="completed" /> <component> < observation moodCode="EVN" classCode="OBS"> <templateId root= "216.840.1.864837.10..22.4.2" /> <id nullFlavor="NA" /> < code codeSystem="local" code="K" displayName="POTASSIUM" /> < statusCode code="completed" /> <effectiveTime value="958816708785" /> <value unit="mmol/L" xsi:type="PQ" value="3.5" /> < referenceRange> <observationRange> <text>3.5-5.3</text> </observationRange> </referenceRange> </observation > </component> <component> <observation moodCode="EVN" classCode="OBS"> <templateId root="216.840.1.767582.10..22.4.2" /> <id nullFlavor="NA" /> <code codeSystem="local" code="eGFR" displayName="EST GFR (MDRD)" /> <statusCode code="completed" /> <effectiveTime value="196720218813" /> <value unit="mL/min" xsi:type ="PQ" value="> 60" /> <referenceRange> <observationRange > <text>> 59</text> </observationRange> </ referenceRange> </observation> </component> <component> <observation moodCode="EVN" classCode="OBS"> <templateId root= "216.840.1.970355.10...4.2" /> <id nullFlavor="NA" /> < code codeSystem="local" code="GAP" displayName="ANION GAP" /> < statusCode code="completed" /> <effectiveTime value="609355000994" /> <value unit="mmol/L" xsi:type="PQ" value="8" /> < referenceRange> <observationRange> <text>5-15</text> </observationRange> </referenceRange> </observation> </component> <component> <observation moodCode="EVN" classCode= "OBS"> <templateId root="216.840.1.441075.10..22.4.2" /> < id nullFlavor="NA" /> <code codeSystem="local" code="eCrCl" displayName ="EST CrCl (CG)" /> <statusCode code="completed" /> < effectiveTime value="402325821149" /> <value unit="mL/min" xsi:type="PQ " value="> 60" /> <referenceRange> <observationRange> <text>> 59</text> </observationRange> </ referenceRange> </observation> </component> <component> <observation moodCode="EVN" classCode="OBS"> <templateId root= "16.840.1.054810.10.22.4.2" /> <id nullFlavor="NA" /> < code codeSystem="local" code="GLU" displayName="GLUCOSE" /> < statusCode code="completed" /> <effectiveTime value="639936019977" /> <value unit="mg/dL" xsi:type="PQ" value="79" /> < referenceRange> <observationRange> <text>70-99</text> </observationRange> </referenceRange> </observation> </component> <component> <observation moodCode="EVN" classCode= "OBS"> <templateId root="06.27.840.1.772085.02.28.22.4.2" /> < id nullFlavor="NA" /> <code codeSystem="local" code="CA" displayName= "CALCIUM" /> <statusCode code="completed" /> <effectiveTime value="168523786632" /> <value unit="mg/dL" xsi:type="PQ" value="8.6" / > <referenceRange> <observationRange> <text>8.5 -10.1</text> </observationRange> </referenceRange> </ observation> </component> <component> <observation moodCode= "EVN" classCode="OBS"> <templateId root="06.27.840.1.745110.10..22.4.2 " /> <id nullFlavor="NA" /> <code codeSystem="local" code="BUN " displayName="BLOOD UREA NITROGEN" /> <statusCode code="completed" /> <effectiveTime value="602566797936" /> <value unit="mg/dL" xsi:type="PQ" value="9" /> <referenceRange> < observationRange> <text>7-20</text> </observationRange> </referenceRange> </observation> </component> < component> <observation moodCode="EVN" classCode="OBS"> < templateId root="216.840.1.931850.10..22.4.2" /> <id nullFlavor="NA " /> <code codeSystem="local" code="CREAT" displayName="CREATININE" /> <statusCode code="completed" /> <effectiveTime value= "689714050227" /> <value unit="mg/dL" xsi:type="PQ" value="0.6" /> <referenceRange> <observationRange> <text>0.6-1.0< /text> </observationRange> </referenceRange> </ observation> </component> <component> <observation moodCode= "EVN" classCode="OBS"> <templateId root="06.27.840.1.773818...4.2 " /> <id nullFlavor="NA" /> <code codeSystem="local" code="NA " displayName="SODIUM" /> <statusCode code="completed" /> < effectiveTime value="160498713518" /> <value unit="mmol/L" xsi:type="PQ " value="139" /> <referenceRange> <observationRange> <text>135-148</text> </observationRange> </ referenceRange> </observation> </component> <component> <observation moodCode="EVN" classCode="OBS"> <templateId root= "16.840.1.113719.10..22.4.2" /> <id nullFlavor="NA" /> < code codeSystem="local" code="CL" displayName="CHLORIDE" /> < statusCode code="completed" /> <effectiveTime value="737004047342" /> <value unit="mmol/L" xsi:type="PQ" value="101" /> < referenceRange> <observationRange> <text>98-110</text> </observationRange> </referenceRange> </observation> </component> <component> <observation moodCode="EVN" classCode ="OBS"> <templateId root="216.840.1.474747.10.20.22.4.2" /> < id nullFlavor="NA" /> <code codeSystem="local" code="AST" displayName= "AST/SGOT" /> <statusCode code="completed" /> <effectiveTime value="776931336293" /> <value unit="Units/L" xsi:type="PQ" value="38" /> <interpretationCode codeSystem="local" code="*" /> < referenceRange> <observationRange> <text>10-37</text> </observationRange> </referenceRange> </observation> </component> <component> <observation moodCode="EVN" classCode= "OBS"> <templateId root="216.840.1.020662.10.20.22.4.2" /> < id nullFlavor="NA" /> <code codeSystem="local" code="ALT" displayName= "ALT/SGPT" /> <statusCode code="completed" /> <effectiveTime value="196462902041" /> <value unit="Units/L" xsi:type="PQ" value="67" /> <interpretationCode codeSystem="local" code="*" /> < referenceRange> <observationRange> <text>< 66</text> </observationRange> </referenceRange> </observation > </component> <component> <observation moodCode="EVN" classCode="OBS"> <templateId root="16.840.1.182282.10.20.22.4.2" /> <id nullFlavor="NA" /> <code codeSystem="local" code="CO2" displayName="CARBON DIOXIDE" /> <statusCode code="completed" /> <effectiveTime value="881964842158" /> <value unit="mmol/L" xsi:type ="PQ" value="30" /> <referenceRange> <observationRange> <text>21-32</text> </observationRange> </ referenceRange> </observation> </component> <component> <observation moodCode="EVN" classCode="OBS"> <templateId root= "06.27.840.1.993685.22.4.2" /> <id nullFlavor="NA" /> < code codeSystem="local" code="TP" displayName="TOTAL PROTEIN" /> < statusCode code="completed" /> <effectiveTime value="263555273235" /> <value unit="gm/dL" xsi:type="PQ" value="6.7" /> < referenceRange> <observationRange> <text>6.4-8.2</text> </observationRange> </referenceRange> </observation > </component> <component> <observation moodCode="EVN" classCode="OBS"> <templateId root="06.27.840.1.786782.10.2022.4.2" /> <id nullFlavor="NA" /> <code codeSystem="local" code="ALB" displayName="ALBUMIN" /> <statusCode code="completed" /> < effectiveTime value="521403588677" /> <value unit="gm/dL" xsi:type="PQ " value="2.9" /> <interpretationCode codeSystem="local" code="*" /> <referenceRange> <observationRange> <text>3.4-5.0 </text> </observationRange> </referenceRange> </ observation> </component> <component> <observation moodCode= "EVN" classCode="OBS"> <templateId root="06.27.840.1.196235.10.20.22.4.2 " /> <id nullFlavor="NA" /> <code codeSystem="local" code= "BILTOT" displayName="BILI TOTAL" /> <statusCode code="completed" /> <effectiveTime value="789188149013" /> <value unit="mg/dL" xsi: type="PQ" value="0.3" /> <referenceRange> <observationRange > <text>0.0-1.0</text> </observationRange> </ referenceRange> </observation> </component> <component> <observation moodCode="EVN" classCode="OBS"> <templateId root= "06.27.840.1.516673.10..22.4.2" /> <id nullFlavor="NA" /> < code codeSystem="local" code="ALKP" displayName="ALKALINE PHOSPHATASE TOTAL" /> <statusCode code="completed" /> <effectiveTime value= "326892661306" /> <value unit="IU/L" xsi:type="PQ" value="149" /> <interpretationCode codeSystem="local" code="*" /> <referenceRange > <observationRange> <text>45-117</text> </ observationRange> </referenceRange> </observation> </ component> <component> <observation moodCode="EVN" classCode="OBS"> <templateId root="06.27.840.1.956904.10.20.22.4.2" /> <id nullFlavor="NA" /> <code codeSystem="local" code="MB" displayName= "Microbiology" /> <statusCode code="completed" /> < effectiveTime value="791622165605" /> <value unit="" xsi:type="PQ" value="" /> <referenceRange> <observationRange> <text /> </observationRange> </referenceRange> </ observation> </component> </organizer> </entry> <entry> <organizer moodCode="EVN" classCode="BATTERY"> <templateId root= "06.27.840.1.715474.02.28.22.4.1" /> <id nullFlavor="NA" /> <code codeSystem="local" code="MAG" displayName="MAGNESIUM" /> <statusCode code= "completed" /> <component> <observation moodCode="EVN" classCode= "OBS"> <templateId root="06.27.840.1.256463...4.2" /> < id nullFlavor="NA" /> <code codeSystem="local" code="MAG" displayName= "MAGNESIUM" /> <statusCode code="completed" /> <effectiveTime value="121210046342" /> <value unit="mg/dL" xsi:type="PQ" value="1.8" / > <referenceRange> <observationRange> <text>1.8 -2.4</text> </observationRange> </referenceRange> </ observation> </component> </organizer> </entry> <entry> <organizer moodCode="EVN" classCode="BATTERY"> <templateId root= "06.27.840.1.392362...4.1" /> <id nullFlavor="NA" /> <code codeSystem="local" code="LIP" displayName="LIPASE" /> <statusCode code= "completed" /> <component> <observation moodCode="EVN" classCode= "OBS"> <templateId root=".1.588610.10..4.2" /> < id nullFlavor="NA" /> <code codeSystem="local" code="LIP" displayName= "LIPASE" /> <statusCode code="completed" /> <effectiveTime value="340717077600" /> <value unit="Units/L" xsi:type="PQ" value="123 " /> <referenceRange> <observationRange> <text> 73-393</text> </observationRange> </referenceRange> < /observation> </component> </organizer> </entry> <entry> < organizer moodCode="EVN" classCode="BATTERY"> <templateId root= "06.27.840.1.403402.10..4.1" /> <id nullFlavor="NA" /> <code codeSystem="local" code="iCHEM8" displayName="CHEM/HEM PROFILE-BEDSIDE" /> <statusCode code="completed" /> <component> <observation moodCode= "EVN" classCode="OBS"> <templateId root="16.840.1.709278.10..22.4.2 " /> <id nullFlavor="NA" /> <code codeSystem="local" code="K" displayName="POTASSIUM" /> <statusCode code="completed" /> < effectiveTime value="822566414494" /> <value unit="mmol/L" xsi:type="PQ " value="3.4" /> <interpretationCode codeSystem="local" code="*" /> <referenceRange> <observationRange> <text>3.5-5.3 </text> </observationRange> </referenceRange> </ observation> </component> <component> <observation moodCode= "EVN" classCode="OBS"> <templateId root="06.27.840.1.084633.02.28.22.4.2 " /> <id nullFlavor="NA" /> <code codeSystem="local" code= "CMETHOD" displayName="METHOD" /> <statusCode code="completed" /> <effectiveTime value="257983539269" /> <value unit="" xsi:type="PQ " value="Bedside" /> <referenceRange> <observationRange> <text /> </observationRange> </referenceRange> </observation> </component> <component> <observation moodCode="EVN" classCode="OBS"> <templateId root= "840.1.585469.02.28.224.2" /> <id nullFlavor="NA" /> < code codeSystem="local" code="GAP" displayName="ANION GAP" /> < statusCode code="completed" /> <effectiveTime value="829061403997" /> <value unit="mmol/L" xsi:type="PQ" value="17" /> < referenceRange> <observationRange> <text>10-20</text> </observationRange> </referenceRange> </observation> </component> <component> <observation moodCode="EVN" classCode= "OBS"> <templateId root="06.27.840.1.355729.02.28.22.4.2" /> < id nullFlavor="NA" /> <code codeSystem="local" code="HMETHOD" displayName="METHOD" /> <statusCode code="completed" /> < effectiveTime value="046229189018" /> <value unit="" xsi:type="PQ" value="Bedside" /> <referenceRange> <observationRange> <text /> </observationRange> </referenceRange> </observation> </component> <component> <observation moodCode="EVN" classCode="OBS"> <templateId root= "06.27.840.1.849671.20.22.4.2" /> <id nullFlavor="NA" /> < code codeSystem="local" code="GLU" displayName="GLUCOSE" /> < statusCode code="completed" /> <effectiveTime value="685979471822" /> <value unit="mg/dL" xsi:type="PQ" value="77" /> < referenceRange> <observationRange> <text>70-99</text> </observationRange> </referenceRange> </observation> </component> <component> <observation moodCode="EVN" classCode= "OBS"> <templateId root="2.16.840.1.138411.10..22.4.2" /> < id nullFlavor="NA" /> <code codeSystem="local" code="BUN" displayName= "BLOOD UREA NITROGEN" /> <statusCode code="completed" /> < effectiveTime value="641291871118" /> <value unit="mg/dL" xsi:type="PQ " value="5" /> <interpretationCode codeSystem="local" code="*" /> <referenceRange> <observationRange> <text>7-20</ text> </observationRange> </referenceRange> </ observation> </component> <component> <observation moodCode= "EVN" classCode="OBS"> <templateId root="216.840.1.655619.10..4.2 " /> <id nullFlavor="NA" /> <code codeSystem="local" code= "CREAT" displayName="CREATININE" /> <statusCode code="completed" /> <effectiveTime value="775946788995" /> <value unit="mg/dL" xsi: type="PQ" value="0.6" /> <referenceRange> <observationRange > <text>0.6-1.0</text> </observationRange> </ referenceRange> </observation> </component> <component> <observation moodCode="EVN" classCode="OBS"> <templateId root= "216.840.1.556150.10..4.2" /> <id nullFlavor="NA" /> < code codeSystem="local" code="HGBT" displayName="HEMOGLOBIN" /> < statusCode code="completed" /> <effectiveTime value="984962516016" /> <value unit="gm/dL" xsi:type="PQ" value="8.5" /> < interpretationCode codeSystem="local" code="*" /> <referenceRange> <observationRange> <text>12.0-16.0</text> </ observationRange> </referenceRange> </observation> </ component> <component> <observation moodCode="EVN" classCode="OBS"> <templateId root="06.27.840.1.893986.02.28.224.2" /> <id nullFlavor="NA" /> <code codeSystem="local" code="HCTT" displayName= "HEMATOCRIT" /> <statusCode code="completed" /> < effectiveTime value="073812796702" /> <value unit="%" xsi:type="PQ " value="25.0" /> <interpretationCode codeSystem="local" code="*" /> <referenceRange> <observationRange> <text>37.0- 47.0</text> </observationRange> </referenceRange> </ observation> </component> <component> <observation moodCode= "EVN" classCode="OBS"> <templateId root="16.840.1.109552.10.4.2 " /> <id nullFlavor="NA" /> <code codeSystem="local" code="NA " displayName="SODIUM" /> <statusCode code="completed" /> < effectiveTime value="316346942810" /> <value unit="mmol/L" xsi:type="PQ " value="138" /> <referenceRange> <observationRange> <text>135-148</text> </observationRange> </ referenceRange> </observation> </component> <component> <observation moodCode="EVN" classCode="OBS"> <templateId root= "216.840.1.725775.10..22.4.2" /> <id nullFlavor="NA" /> < code codeSystem="local" code="CL" displayName="CHLORIDE" /> < statusCode code="completed" /> <effectiveTime value="986182015215" /> <value unit="mmol/L" xsi:type="PQ" value="100" /> < referenceRange> <observationRange> <text>98-110</text> </observationRange> </referenceRange> </observation> </component> <component> <observation moodCode="EVN" classCode ="OBS"> <templateId root="16.840.1.850844.10...4.2" /> < id nullFlavor="NA" /> <code codeSystem="local" code="CO2" displayName= "CARBON DIOXIDE" /> <statusCode code="completed" /> < effectiveTime value="696739331970" /> <value unit="mmol/L" xsi:type="PQ " value="25" /> <referenceRange> <observationRange> <text>21-32</text> </observationRange> </ referenceRange> </observation> </component> <component> <observation moodCode="EVN" classCode="OBS"> <templateId root= "16.840.1.647286.10.20.22.4.2" /> <id nullFlavor="NA" /> < code codeSystem="local" code="CAION" displayName="CALCIUM IONIZED" /> < statusCode code="completed" /> <effectiveTime value="540618428131" /> <value unit="mg/dL" xsi:type="PQ" value="4.7" /> < referenceRange> <observationRange> <text>4.5-5.3</text> </observationRange> </referenceRange> </observation > </component> <component> <observation moodCode="EVN" classCode="OBS"> <templateId root="06.27.840.1.657717.10..4.2" /> <id nullFlavor="NA" /> <code codeSystem="local" code="MB" displayName="Microbiology" /> <statusCode code="completed" /> <effectiveTime value="791978985616" /> <value unit="" xsi:type="PQ" value="" /> <referenceRange> <observationRange> <text /> </observationRange> </referenceRange> </ observation> </component> </organizer> </entry> <entry> <organizer moodCode="EVN" classCode="BATTERY"> <templateId root= "06.27.840.1.777049.10...4.1" /> <id nullFlavor="NA" /> <code codeSystem="local" code="UANRC" displayName="URINALYSIS, NO REFLEX CULTURE" /> <statusCode code="completed" /> <component> <observation moodCode="EVN" classCode="OBS"> <templateId root= "06.27.840.1.848470.02.28.22.4.2" /> <id nullFlavor="NA" /> < code codeSystem="local" code="LEUESU" displayName="UA LEUKOCYTE ESTERASE DIPSTICK" /> <statusCode code="completed" /> <effectiveTime value="365578583788" /> <value unit="" xsi:type="PQ" value="2+" /> <interpretationCode codeSystem="local" code="*" /> < referenceRange> <observationRange> <text>NEGATIVE</text > </observationRange> </referenceRange> </observation > </component> <component> <observation moodCode="EVN" classCode="OBS"> <templateId root="06.27.840.1.781651.02.28.22.4.2" /> <id nullFlavor="NA" /> <code codeSystem="local" code="NITRIU" displayName="UA NITRITE DIPSTICK" /> <statusCode code="completed" /> <effectiveTime value="680333510574" /> <value unit="" xsi:type= "PQ" value="NEGATIVE" /> <referenceRange> <observationRange > <text>NEGATIVE</text> </observationRange> </ referenceRange> </observation> </component> <component> <observation moodCode="EVN" classCode="OBS"> <templateId root= "06.27.840.1.882923.02.28.22.4.2" /> <id nullFlavor="NA" /> < code codeSystem="local" code="PROTEIU" displayName="UA PROTEIN DIPSTICK" /> <statusCode code="completed" /> <effectiveTime value= "949176855979" /> <value unit="" xsi:type="PQ" value="1+" /> < interpretationCode codeSystem="local" code="*" /> <referenceRange> <observationRange> <text>NEGATIVE</text> </ observationRange> </referenceRange> </observation> </ component> <component> <observation moodCode="EVN" classCode="OBS"> <templateId root="06.27.840.1.451474...4.2" /> <id nullFlavor="NA" /> <code codeSystem="local" code="DGLUU" displayName= "UA GLUCOSE DIPSTICK" /> <statusCode code="completed" /> < effectiveTime value="153271743323" /> <value unit="" xsi:type="PQ" value="NEGATIVE" /> <referenceRange> <observationRange> <text>NEGATIVE</text> </observationRange> </ referenceRange> </observation> </component> <component> <observation moodCode="EVN" classCode="OBS"> <templateId root= "06.27.840.1.392884.10..22.4.2" /> <id nullFlavor="NA" /> < code codeSystem="local" code="KETONU" displayName="UA KETONE DIPSTICK" /> <statusCode code="completed" /> <effectiveTime value="681939566552 " /> <value unit="" xsi:type="PQ" value="NEGATIVE" /> < referenceRange> <observationRange> <text>NEGATIVE</text > </observationRange> </referenceRange> </observation > </component> <component> <observation moodCode="EVN" classCode="OBS"> <templateId root="16.840.1.817211.10..22.4.2" /> <id nullFlavor="NA" /> <code codeSystem="local" code="UROBILU " displayName="UA UROBILINOGEN DIPSTICK" /> <statusCode code="completed " /> <effectiveTime value="723818850148" /> <value unit="" xsi :type="PQ" value="NORMAL" /> <referenceRange> < observationRange> <text>NORMAL</text> </observationRange > </referenceRange> </observation> </component> < component> <observation moodCode="EVN" classCode="OBS"> < templateId root="840.1.758942.02.28.22.4.2" /> <id nullFlavor="NA " /> <code codeSystem="local" code="BILU" displayName="UA BILIRUBIN DIPSTICK" /> <statusCode code="completed" /> <effectiveTime value="" /> <value unit="" xsi:type="PQ" value="NEGATIVE" / > <referenceRange> <observationRange> <text> NEGATIVE</text> </observationRange> </referenceRange> </observation> </component> <component> <observation moodCode ="EVN" classCode="OBS"> <templateId root= "16.840.1.047116.02.28.224.2" /> <id nullFlavor="NA" /> < code codeSystem="local" code="NOLVIA" displayName="UA BLOOD DIPSTICK" /> < statusCode code="completed" /> <effectiveTime value="" /> <value unit="" xsi:type="PQ" value="1+" /> < interpretationCode codeSystem="local" code="*" /> <referenceRange> <observationRange> <text>NEGATIVE</text> </ observationRange> </referenceRange> </observation> </ component> <component> <observation moodCode="EVN" classCode="OBS"> <templateId root="16.840.1.944725.02.28.22.4.2" /> <id nullFlavor="NA" /> <code codeSystem="local" code="SPGRU" displayName= "UA SPECIFIC GRAVITY" /> <statusCode code="completed" /> < effectiveTime value="" /> <value unit="" xsi:type="PQ" value="1.010" /> <interpretationCode codeSystem="local" code="*" /> <referenceRange> <observationRange> <text>1.015- 1.025</text> </observationRange> </referenceRange> </ observation> </component> <component> <observation moodCode= "EVN" classCode="OBS"> <templateId root="06.27.840.1.117694.1022.4.2 " /> <id nullFlavor="NA" /> <code codeSystem="local" code="DIETER " displayName="UR PH" /> <statusCode code="completed" /> < effectiveTime value="" /> <value unit="" xsi:type="PQ" value="8.0" /> <interpretationCode codeSystem="local" code="*" /> <referenceRange> <observationRange> <text>5.0-7.0</ text> </observationRange> </referenceRange> </ observation> </component> </organizer> </entry> <entry> <organizer moodCode="EVN" classCode="BATTERY"> <templateId root= "06.27.840.1.510584.10..4.1" /> <id nullFlavor="NA" /> <code codeSystem="local" code="UAMICRO" displayName="UA MICROSCOPIC" /> < statusCode code="completed" /> <component> <observation moodCode= "EVN" classCode="OBS"> <templateId root="06.27.840.1.184516.10.4.2 " /> <id nullFlavor="NA" /> <code codeSystem="local" code= "BACU" displayName="UA BACTERIA" /> <statusCode code="completed" /> <effectiveTime value="393891985384" /> <value unit="" xsi:type= "PQ" value="2+" /> <interpretationCode codeSystem="local" code="*" /> <referenceRange> <observationRange> <text> NEGATIVE</text> </observationRange> </referenceRange> </observation> </component> <component> <observation moodCode ="EVN" classCode="OBS"> <templateId root= "16.840.1.065789.02.28.22.4.2" /> <id nullFlavor="NA" /> < code codeSystem="local" code="EPIU" displayName="UA EPITHELIAL CELLS" /> <statusCode code="completed" /> <effectiveTime value="662558794626" /> <value unit="epi/hpf" xsi:type="PQ" value="1+" /> < referenceRange> <observationRange> <text>0 - 1+</text> </observationRange> </referenceRange> </observation> </component> <component> <observation moodCode="EVN" classCode ="OBS"> <templateId root="06.27.840.1.643650.02.28.224.2" /> < id nullFlavor="NA" /> <code codeSystem="local" code="MUCUSU" displayName="UA MUCUS" /> <statusCode code="completed" /> < effectiveTime value="507605109495" /> <value unit="" xsi:type="PQ" value="2+" /> <interpretationCode codeSystem="local" code="*" /> <referenceRange> <observationRange> <text>NEG TO 1+< /text> </observationRange> </referenceRange> </ observation> </component> <component> <observation moodCode= "EVN" classCode="OBS"> <templateId root="16.840.1.827332.02.28.22.4.2 " /> <id nullFlavor="NA" /> <code codeSystem="local" code= "RBCU" displayName="UA RBC" /> <statusCode code="completed" /> <effectiveTime value="" /> <value unit="rbc/hpf" xsi:type ="PQ" value="0-3" /> <referenceRange> <observationRange> <text>0 - 3</text> </observationRange> </ referenceRange> </observation> </component> <component> <observation moodCode="EVN" classCode="OBS"> <templateId root= "2.16.840.1.809116...22.4.2" /> <id nullFlavor="NA" /> < code codeSystem="local" code="UAVOL" displayName="UA VOLUME FOR EXAM" /> <statusCode code="completed" /> <effectiveTime value="" /> <value unit="mL" xsi:type="PQ" value="12.0" /> < referenceRange> <observationRange> <text>(12mL STD)</ text> </observationRange> </referenceRange> </ observation> </component> <component> <observation moodCode= "EVN" classCode="OBS"> <templateId root="2.16.840.1.250504.10...4.2 " /> <id nullFlavor="NA" /> <code codeSystem="local" code= "WBCU" displayName="UA WBC" /> <statusCode code="completed" /> <effectiveTime value="" /> <value unit="wbc/hpf" xsi:type ="PQ" value="5-10" /> <interpretationCode codeSystem="local" code="*" / > <referenceRange> <observationRange> <text>0 - 5</text> </observationRange> </referenceRange> </ observation> </component> </organizer> </entry> <entry> <organizer moodCode="EVN" classCode="BATTERY"> <templateId root= "2.16.840.1.781186.02.28.22.4.1" /> <id nullFlavor="NA" /> <code codeSystem="local" code="CBCD" displayName="CBC W/DIFF" /> <statusCode code ="completed" /> <component> <observation moodCode="EVN" classCode= "OBS"> <templateId root="06.27.840.1.189381.02.28.22.4.2" /> < id nullFlavor="NA" /> <code codeSystem="local" code="BA#" displayName= "BASOPHIL #" /> <statusCode code="completed" /> < effectiveTime value="572474620221" /> <value unit="k/cumm" xsi:type="PQ " value="0.0" /> <referenceRange> <observationRange> <text>0.0-0.2</text> </observationRange> </ referenceRange> </observation> </component> <component> <observation moodCode="EVN" classCode="OBS"> <templateId root= "840.1.791124.02.28.224.2" /> <id nullFlavor="NA" /> < code codeSystem="local" code="BA%" displayName="BASOPHIL %" /> <statusCode code="completed" /> <effectiveTime value="045301508377" /> <value unit="%" xsi:type="PQ" value="1" /> < referenceRange> <observationRange> <text>0-1</text> </observationRange> </referenceRange> </observation> </component> <component> <observation moodCode="EVN" classCode= "OBS"> <templateId root="06.27.840.1.238419.02.28.22.4.2" /> < id nullFlavor="NA" /> <code codeSystem="local" code="EO#" displayName= "EOSINOPHIL #" /> <statusCode code="completed" /> < effectiveTime value="915080690201" /> <value unit="k/cumm" xsi:type="PQ " value="0.2" /> <referenceRange> <observationRange> <text>0.1-0.5</text> </observationRange> </ referenceRange> </observation> </component> <component> <observation moodCode="EVN" classCode="OBS"> <templateId root= "216.840.1.630679.10..22.4.2" /> <id nullFlavor="NA" /> < code codeSystem="local" code="EO%" displayName="EOSINOPHIL %" /> <statusCode code="completed" /> <effectiveTime value="974841239331" /> <value unit="%" xsi:type="PQ" value="4" /> < referenceRange> <observationRange> <text>2-4</text> </observationRange> </referenceRange> </observation> </component> <component> <observation moodCode="EVN" classCode= "OBS"> <templateId root="16.840.1.370715.10..22.4.2" /> < id nullFlavor="NA" /> <code codeSystem="local" code="GR#" displayName= "GRANULOCYTE #" /> <statusCode code="completed" /> < effectiveTime value="289320459799" /> <value unit="k/cumm" xsi:type="PQ " value="4.1" /> <referenceRange> <observationRange> <text>2.0-9.0</text> </observationRange> </ referenceRange> </observation> </component> <component> <observation moodCode="EVN" classCode="OBS"> <templateId root= "216.840.1.244672.10..4.2" /> <id nullFlavor="NA" /> < code codeSystem="local" code="GR%" displayName="GRANULOCYTE %" /> <statusCode code="completed" /> <effectiveTime value="605925823825 " /> <value unit="%" xsi:type="PQ" value="60" /> < referenceRange> <observationRange> <text>50-75</text> </observationRange> </referenceRange> </observation> </component> <component> <observation moodCode="EVN" classCode= "OBS"> <templateId root="16.840.1.664317.10.4.2" /> < id nullFlavor="NA" /> <code codeSystem="local" code="LY#" displayName= "LYMPHOCYTE #" /> <statusCode code="completed" /> < effectiveTime value="781138773145" /> <value unit="k/cumm" xsi:type="PQ " value="1.9" /> <referenceRange> <observationRange> <text>1.0-4.0</text> </observationRange> </ referenceRange> </observation> </component> <component> <observation moodCode="EVN" classCode="OBS"> <templateId root= "06.27.840.1.814640.10..4.2" /> <id nullFlavor="NA" /> < code codeSystem="local" code="LY%" displayName="LYMPHOCYTE %" /> <statusCode code="completed" /> <effectiveTime value="029756988958" /> <value unit="%" xsi:type="PQ" value="27" /> < referenceRange> <observationRange> <text>20-30</text> </observationRange> </referenceRange> </observation> </component> <component> <observation moodCode="EVN" classCode= "OBS"> <templateId root="216.840.1.090064.10.4.2" /> < id nullFlavor="NA" /> <code codeSystem="local" code="MCH" displayName= "MEAN CELL HGB" /> <statusCode code="completed" /> < effectiveTime value="411119315322" /> <value unit="pg" xsi:type="PQ" value="30.0" /> <referenceRange> <observationRange> <text>27.0-33.0</text> </observationRange> </ referenceRange> </observation> </component> <component> <observation moodCode="EVN" classCode="OBS"> <templateId root= "06.27.840.1.475414.02.28.22.4.2" /> <id nullFlavor="NA" /> < code codeSystem="local" code="MCHC" displayName="MEAN CELL HGB CONCENTRATION" / > <statusCode code="completed" /> <effectiveTime value= "627338523499" /> <value unit="g/dL" xsi:type="PQ" value="33.8" /> <referenceRange> <observationRange> <text>32.0- 37.0</text> </observationRange> </referenceRange> </ observation> </component> <component> <observation moodCode= "EVN" classCode="OBS"> <templateId root="216.840.1.626943.02.28.22.4.2 " /> <id nullFlavor="NA" /> <code codeSystem="local" code="MCV " displayName="MEAN CELL VOLUME" /> <statusCode code="completed" /> <effectiveTime value="585607477029" /> <value unit="fl" xsi:type ="PQ" value="88.8" /> <referenceRange> <observationRange> <text>80.0-100.0</text> </observationRange> </ referenceRange> </observation> </component> <component> <observation moodCode="EVN" classCode="OBS"> <templateId root= "216.840.1.598770.02.28.22.4.2" /> <id nullFlavor="NA" /> < code codeSystem="local" code="MO#" displayName="MONOCYTE #" /> < statusCode code="completed" /> <effectiveTime value="569047527456" /> <value unit="k/cumm" xsi:type="PQ" value="0.6" /> < referenceRange> <observationRange> <text>0.1-1.0</text> </observationRange> </referenceRange> </observation > </component> <component> <observation moodCode="EVN" classCode="OBS"> <templateId root="216.840.1.584627.02.28.22.4.2" /> <id nullFlavor="NA" /> <code codeSystem="local" code="MO% " displayName="MONOCYTE %" /> <statusCode code="completed" /> <effectiveTime value="143191156437" /> <value unit="%" xsi: type="PQ" value="9" /> <interpretationCode codeSystem="local" code="*" /> <referenceRange> <observationRange> <text>4- 6</text> </observationRange> </referenceRange> </ observation> </component> <component> <observation moodCode= "EVN" classCode="OBS"> <templateId root="216.840.1.700164.02.28.224.2 " /> <id nullFlavor="NA" /> <code codeSystem="local" code="RBC " displayName="RED BLOOD CELL" /> <statusCode code="completed" /> <effectiveTime value="327728078170" /> <value unit="m/cumm" xsi: type="PQ" value="3.57" /> <interpretationCode codeSystem="local" code= "*" /> <referenceRange> <observationRange> < text>4.00-6.00</text> </observationRange> </referenceRange> </observation> </component> <component> <observation moodCode="EVN" classCode="OBS"> <templateId root= "216.840.1.990063.02.28.224.2" /> <id nullFlavor="NA" /> < code codeSystem="local" code="RDW" displayName="RED CELL DISTRIBUTION WIDTH" /> <statusCode code="completed" /> <effectiveTime value= "337755223742" /> <value unit="%" xsi:type="PQ" value="13.5" /> <referenceRange> <observationRange> <text>11.0- 15.6</text> </observationRange> </referenceRange> </ observation> </component> <component> <observation moodCode= "EVN" classCode="OBS"> <templateId root="216.840.1.647394.02.28.22.4.2 " /> <id nullFlavor="NA" /> <code codeSystem="local" code="WBC " displayName="WHITE BLOOD CELL" /> <statusCode code="completed" /> <effectiveTime value="376877995928" /> <value unit="k/cumm" xsi: type="PQ" value="6.9" /> <referenceRange> <observationRange > <text>5.0-10.0</text> </observationRange> </ referenceRange> </observation> </component> <component> <observation moodCode="EVN" classCode="OBS"> <templateId root= "216.840.1.327888.10.2022.4.2" /> <id nullFlavor="NA" /> < code codeSystem="local" code="HGBT" displayName="HEMOGLOBIN" /> < statusCode code="completed" /> <effectiveTime value="521114443483" /> <value unit="gm/dL" xsi:type="PQ" value="10.7" /> < interpretationCode codeSystem="local" code="*" /> <referenceRange> <observationRange> <text>12.0-16.0</text> </ observationRange> </referenceRange> </observation> </ component> <component> <observation moodCode="EVN" classCode="OBS"> <templateId root="16.840.1.531305.10.22.4.2" /> <id nullFlavor="NA" /> <code codeSystem="local" code="HCTT" displayName= "HEMATOCRIT" /> <statusCode code="completed" /> < effectiveTime value="285843795928" /> <value unit="%" xsi:type="PQ " value="31.7" /> <interpretationCode codeSystem="local" code="*" /> <referenceRange> <observationRange> <text>37.0- 47.0</text> </observationRange> </referenceRange> </ observation> </component> <component> <observation moodCode= "EVN" classCode="OBS"> <templateId root="16.840.1.631921.10.20.22.4.2 " /> <id nullFlavor="NA" /> <code codeSystem="local" code="PLT " displayName="PLATELET COUNT" /> <statusCode code="completed" /> <effectiveTime value="326969165478" /> <value unit="k/cumm" xsi: type="PQ" value="275" /> <referenceRange> <observationRange > <text>150-450</text> </observationRange> </ referenceRange> </observation> </component> </organizer> </entry > <entry> <organizer moodCode="EVN" classCode="BATTERY"> <templateId root="216.840.1.837552.10..22.4.1" /> <id nullFlavor="NA" /> <code codeSystem="local" code="PREG" displayName=" TEST, SERUM" /> < statusCode code="completed" /> <component> <observation moodCode= "EVN" classCode="OBS"> <templateId root="2.16.840.1.084790.10..22.4.2 " /> <id nullFlavor="NA" /> <code codeSystem="local" code= "PREG" displayName=" TEST, SERUM" /> <statusCode code= "completed" /> <effectiveTime value="881050022488" /> <value unit="" xsi:type="PQ" value="NEGATIVE" /> <referenceRange> < observationRange> <text>NEGATIVE</text> </ observationRange> </referenceRange> </observation> </ component> </organizer> </entry> <entry> <organizer moodCode="EVN" classCode="BATTERY"> <templateId root="216.840.1.450747.10..22.4.1" /> <id nullFlavor="NA" /> <code codeSystem="local" code="PT" displayName= "PROTHROMBIN TIME WITH INR" /> <statusCode code="completed" /> < component> <observation moodCode="EVN" classCode="OBS"> < templateId root="06.27.840.1.739576.1022.4.2" /> <id nullFlavor="NA " /> <code codeSystem="local" code="INRX" displayName="INTERNATIONAL NORMAL RATIO" /> <statusCode code="completed" /> < effectiveTime value="957662127309" /> <value unit="" xsi:type="PQ" value="1.1" /> <referenceRange> <observationRange> <text>0.9-1.1</text> </observationRange> </ referenceRange> </observation> </component> <component> <observation moodCode="EVN" classCode="OBS"> <templateId root= "840.1.210092.02.28.22.4.2" /> <id nullFlavor="NA" /> < code codeSystem="local" code="PTPAT" displayName="PROTHROMBIN TIME" /> <statusCode code="completed" /> <effectiveTime value="858443093572" /> <value unit="sec" xsi:type="PQ" value="12.3" /> < referenceRange> <observationRange> <text>10.0-12.9</text > </observationRange> </referenceRange> </observation > </component> </organizer> </entry> <entry> <organizer moodCode= "EVN" classCode="BATTERY"> <templateId root="06.27.840.1.265733.1022.4.1 " /> <id nullFlavor="NA" /> <code codeSystem="local" code="PTT" displayName="PARTIAL THROMBOPLASTIN TIME" /> <statusCode code="completed" / > <component> <observation moodCode="EVN" classCode="OBS"> <templateId root="840.1.801267.02.28.22.4.2" /> <id nullFlavor="NA " /> <code codeSystem="local" code="PTT" displayName="PARTIAL THROMBOPLASTIN TIME" /> <statusCode code="completed" /> < effectiveTime value="930540116986" /> <value unit="sec" xsi:type="PQ" value="33" /> <referenceRange> <observationRange> <text>25-37</text> </observationRange> </referenceRange > </observation> </component> </organizer> </entry> <entry> <organizer moodCode="EVN" classCode="BATTERY"> <templateId root= "06.27.840.1.317655.02.28.22.4.1" /> <id nullFlavor="NA" /> <code codeSystem="local" code="METABC" displayName="METABOLIC PANEL, COMPREHN" /> <statusCode code="completed" /> <component> <observation moodCode= "EVN" classCode="OBS"> <templateId root="16.840.1.642881.02.28.22.4.2 " /> <id nullFlavor="NA" /> <code codeSystem="local" code="K" displayName="POTASSIUM" /> <statusCode code="completed" /> < effectiveTime value="986462287708" /> <value unit="mmol/L" xsi:type="PQ " value="3.1" /> <interpretationCode codeSystem="local" code="*" /> <referenceRange> <observationRange> <text>3.5-5.3 </text> </observationRange> </referenceRange> </ observation> </component> <component> <observation moodCode= "EVN" classCode="OBS"> <templateId root="06.27.840.1.467175.02.28.22.4.2 " /> <id nullFlavor="NA" /> <code codeSystem="local" code= "eGFR" displayName="EST GFR (MDRD)" /> <statusCode code="completed" /> <effectiveTime value="507620986291" /> <value unit="mL/min" xsi:type="PQ" value="> 60" /> <referenceRange> < observationRange> <text>> 59</text> </ observationRange> </referenceRange> </observation> </ component> <component> <observation moodCode="EVN" classCode="OBS"> <templateId root="2.16.840.1.290750.10.20.22.4.2" /> <id nullFlavor="NA" /> <code codeSystem="local" code="GAP" displayName= "ANION GAP" /> <statusCode code="completed" /> <effectiveTime value="" /> <value unit="mmol/L" xsi:type="PQ" value="11" / > <referenceRange> <observationRange> <text>5- 15</text> </observationRange> </referenceRange> </ observation> </component> <component> <observation moodCode= "EVN" classCode="OBS"> <templateId root="2.16.840.1.129256.10.20.22.4.2 " /> <id nullFlavor="NA" /> <code codeSystem="local" code= "eCrCl" displayName="EST CrCl (CG)" /> <statusCode code="completed" /> <effectiveTime value="065065181695" /> <value unit="mL/min" xsi:type="PQ" value="> 60" /> <referenceRange> < observationRange> <text>> 59</text> </ observationRange> </referenceRange> </observation> </ component> <component> <observation moodCode="EVN" classCode="OBS"> <templateId root="216.840.1.599462.10..22.4.2" /> <id nullFlavor="NA" /> <code codeSystem="local" code="GLU" displayName= "GLUCOSE" /> <statusCode code="completed" /> <effectiveTime value="654862340592" /> <value unit="mg/dL" xsi:type="PQ" value="82" / > <referenceRange> <observationRange> <text>70- 99</text> </observationRange> </referenceRange> </ observation> </component> <component> <observation moodCode= "EVN" classCode="OBS"> <templateId root="16.840.1.784649...4.2 " /> <id nullFlavor="NA" /> <code codeSystem="local" code="CA " displayName="CALCIUM" /> <statusCode code="completed" /> < effectiveTime value="446679065417" /> <value unit="mg/dL" xsi:type="PQ " value="9.0" /> <referenceRange> <observationRange> <text>8.5-10.1</text> </observationRange> </ referenceRange> </observation> </component> <component> <observation moodCode="EVN" classCode="OBS"> <templateId root= "06.27.840.1.110333..22.4.2" /> <id nullFlavor="NA" /> < code codeSystem="local" code="BUN" displayName="BLOOD UREA NITROGEN" /> <statusCode code="completed" /> <effectiveTime value="459095326590" / > <value unit="mg/dL" xsi:type="PQ" value="16" /> < referenceRange> <observationRange> <text>7-20</text> </observationRange> </referenceRange> </observation> </component> <component> <observation moodCode="EVN" classCode= "OBS"> <templateId root="216.840.1.397091.10.22.4.2" /> < id nullFlavor="NA" /> <code codeSystem="local" code="CREAT" displayName ="CREATININE" /> <statusCode code="completed" /> < effectiveTime value="253346410826" /> <value unit="mg/dL" xsi:type="PQ " value="0.9" /> <referenceRange> <observationRange> <text>0.6-1.0</text> </observationRange> </ referenceRange> </observation> </component> <component> <observation moodCode="EVN" classCode="OBS"> <templateId root= "216.840.1.226032.02.28.22.4.2" /> <id nullFlavor="NA" /> < code codeSystem="local" code="NA" displayName="SODIUM" /> <statusCode code="completed" /> <effectiveTime value="706049791638" /> < value unit="mmol/L" xsi:type="PQ" value="144" /> <referenceRange> <observationRange> <text>135-148</text> </ observationRange> </referenceRange> </observation> </ component> <component> <observation moodCode="EVN" classCode="OBS"> <templateId root="16.840.1.881336.10..22.4.2" /> <id nullFlavor="NA" /> <code codeSystem="local" code="CL" displayName= "CHLORIDE" /> <statusCode code="completed" /> <effectiveTime value="293961879053" /> <value unit="mmol/L" xsi:type="PQ" value="103" /> <referenceRange> <observationRange> <text>98 -110</text> </observationRange> </referenceRange> </ observation> </component> <component> <observation moodCode= "EVN" classCode="OBS"> <templateId root="216.840.1.210976.10..22.4.2 " /> <id nullFlavor="NA" /> <code codeSystem="local" code="AST " displayName="AST/SGOT" /> <statusCode code="completed" /> < effectiveTime value="816006224919" /> <value unit="Units/L" xsi:type= "PQ" value="14" /> <referenceRange> <observationRange> <text>10-37</text> </observationRange> </ referenceRange> </observation> </component> <component> <observation moodCode="EVN" classCode="OBS"> <templateId root= "16.840.1.686681...4.2" /> <id nullFlavor="NA" /> < code codeSystem="local" code="ALT" displayName="ALT/SGPT" /> < statusCode code="completed" /> <effectiveTime value="693001952924" /> <value unit="Units/L" xsi:type="PQ" value="9" /> < referenceRange> <observationRange> <text>< 66</text> </observationRange> </referenceRange> </observation > </component> <component> <observation moodCode="EVN" classCode="OBS"> <templateId root="16.840.1.282916.10..4.2" /> <id nullFlavor="NA" /> <code codeSystem="local" code="CO2" displayName="CARBON DIOXIDE" /> <statusCode code="completed" /> <effectiveTime value="765275847278" /> <value unit="mmol/L" xsi:type ="PQ" value="30" /> <referenceRange> <observationRange> <text>21-32</text> </observationRange> </ referenceRange> </observation> </component> <component> <observation moodCode="EVN" classCode="OBS"> <templateId root= "16.840.1.542512.10...4.2" /> <id nullFlavor="NA" /> < code codeSystem="local" code="TP" displayName="TOTAL PROTEIN" /> < statusCode code="completed" /> <effectiveTime value="012379660143" /> <value unit="gm/dL" xsi:type="PQ" value="6.8" /> < referenceRange> <observationRange> <text>6.4-8.2</text> </observationRange> </referenceRange> </observation > </component> <component> <observation moodCode="EVN" classCode="OBS"> <templateId root="06.27.840.1.095402.02.28.22.4.2" /> <id nullFlavor="NA" /> <code codeSystem="local" code="ALB" displayName="ALBUMIN" /> <statusCode code="completed" /> < effectiveTime value="646495049589" /> <value unit="gm/dL" xsi:type="PQ " value="3.6" /> <referenceRange> <observationRange> <text>3.4-5.0</text> </observationRange> </ referenceRange> </observation> </component> <component> <observation moodCode="EVN" classCode="OBS"> <templateId root= "06.27.840.1.348606.10...4.2" /> <id nullFlavor="NA" /> < code codeSystem="local" code="BILTOT" displayName="BILI TOTAL" /> < statusCode code="completed" /> <effectiveTime value="518204865903" /> <value unit="mg/dL" xsi:type="PQ" value="0.3" /> < referenceRange> <observationRange> <text>0.0-1.0</text> </observationRange> </referenceRange> </observation > </component> <component> <observation moodCode="EVN" classCode="OBS"> <templateId root="06.27.840.1.652671.10...4.2" /> <id nullFlavor="NA" /> <code codeSystem="local" code="ALKP" displayName="ALKALINE PHOSPHATASE TOTAL" /> <statusCode code="completed " /> <effectiveTime value="172724794691" /> <value unit="IU/L " xsi:type="PQ" value="66" /> <referenceRange> < observationRange> <text>45-117</text> </observationRange > </referenceRange> </observation> </component> </ organizer> </entry> <entry> <organizer moodCode="EVN" classCode="BATTERY"> <templateId root="06.27.840.1.849447.10...4.1" /> <id nullFlavor= "NA" /> <code codeSystem="local" code="TSH" displayName="THYROID STIM HORMONE (TSH)" /> <statusCode code="completed" /> <component> < observation moodCode="EVN" classCode="OBS"> <templateId root= "06.27.840.1.027172.22.4.2" /> <id nullFlavor="NA" /> < code codeSystem="local" code="TSH" displayName="THYROID STIM HORMONE (TSH)" /> <statusCode code="completed" /> <effectiveTime value= "060998968165" /> <value unit="uIU/mL" xsi:type="PQ" value="2.48" /> <referenceRange> <observationRange> <text>0.34- 4.82</text> </observationRange> </referenceRange> </ observation> </component> </organizer> </entry> <entry> <organizer moodCode="EVN" classCode="BATTERY"> <templateId root= "16.840.1.937882.10..22.4.1" /> <id nullFlavor="NA" /> <code codeSystem="local" code="ORD68" displayName="Urinalysis" /> <statusCode code="completed" /> <component> <observation moodCode="EVN" classCode="OBS"> <templateId root="16.840.1.887514...4.2" /> <id nullFlavor="NA" /> <code codeSystem="local" code="Pqd0149 " displayName="Icotest" /> <statusCode code="completed" /> < effectiveTime value="851878298196" /> <value unit="" xsi:type="PQ" value="N/A" /> <interpretationCode codeSystem="local" code="A" /> <referenceRange> <observationRange> <text>Negative< /text> </observationRange> </referenceRange> </ observation> </component> <component> <observation moodCode= "EVN" classCode="OBS"> <templateId root="06.27.840.1.223107.10..22.4.2 " /> <id nullFlavor="NA" /> <code codeSystem="local" code= "Rcr781" displayName="Urine Crystals" /> <statusCode code="completed" / > <effectiveTime value="594365358463" /> <value unit="" xsi: type="PQ" value="Amorphous material: abundant/HPF" /> <referenceRange> <observationRange> <text /> </ observationRange> </referenceRange> </observation> </ component> <component> <observation moodCode="EVN" classCode="OBS"> <templateId root="216.840.1.242122.10..22.4.2" /> <id nullFlavor="NA" /> <code codeSystem="local" code="Beb962" displayName= "Urine Volume" /> <statusCode code="completed" /> < effectiveTime value="615268901783" /> <value unit="" xsi:type="PQ" value="Urine Volume Sufficient (10mL)" /> <referenceRange> < observationRange> <text /> </observationRange> </referenceRange> </observation> </component> <component> <observation moodCode="EVN" classCode="OBS"> <templateId root= "840.1.927788.10..4.2" /> <id nullFlavor="NA" /> < code codeSystem="local" code="Fsa467" displayName="Urine-Appearance" /> <statusCode code="completed" /> <effectiveTime value="408139898564" / > <value unit="" xsi:type="PQ" value="Cloudy" /> < interpretationCode codeSystem="local" code="A" /> <referenceRange> <observationRange> <text>Clear</text> </ observationRange> </referenceRange> </observation> </ component> <component> <observation moodCode="EVN" classCode="OBS"> <templateId root="06.27.840.1.216760.10.2022.4.2" /> <id nullFlavor="NA" /> <code codeSystem="local" code="Fcv580" displayName= "Urine-Bacteria" /> <statusCode code="completed" /> < effectiveTime value="913641699603" /> <value unit="" xsi:type="PQ" value="Trace" /> <interpretationCode codeSystem="local" code="A" /> <referenceRange> <observationRange> <text> </text > </observationRange> </referenceRange> </observation > </component> <component> <observation moodCode="EVN" classCode="OBS"> <templateId root="216.840.1.385486.10..4.2" /> <id nullFlavor="NA" /> <code codeSystem="local" code="Gqw726" displayName="Urine-Bilirubin" /> <statusCode code="completed" /> <effectiveTime value="930769937211" /> <value unit="" xsi:type="PQ " value="Negative" /> <referenceRange> <observationRange> <text>Negative</text> </observationRange> </ referenceRange> </observation> </component> <component> <observation moodCode="EVN" classCode="OBS"> <templateId root= "16.840.1.233829..22.4.2" /> <id nullFlavor="NA" /> < code codeSystem="local" code="Dpe201" displayName="Urine-Blood" /> < statusCode code="completed" /> <effectiveTime value="724410145535" /> <value unit="" xsi:type="PQ" value="Negative" /> < referenceRange> <observationRange> <text>Negative</text > </observationRange> </referenceRange> </observation > </component> <component> <observation moodCode="EVN" classCode="OBS"> <templateId root="06.27.840.1.903526.1022.4.2" /> <id nullFlavor="NA" /> <code codeSystem="local" code="Acz302" displayName="Urine-Color" /> <statusCode code="completed" /> < effectiveTime value="687946475647" /> <value unit="" xsi:type="PQ" value="Yellow" /> <referenceRange> <observationRange> <text>Colorless-Lt. Yellow</text> </observationRange> </referenceRange> </observation> </component> <component> <observation moodCode="EVN" classCode="OBS"> <templateId root= "2.16.840.1.710798.10..4.2" /> <id nullFlavor="NA" /> < code codeSystem="local" code="Kvu376" displayName="Urine-Epithelial Cells" /> <statusCode code="completed" /> <effectiveTime value= "377316861989" /> <value unit="" xsi:type="PQ" value="5-10/HPF" /> <interpretationCode codeSystem="local" code="A" /> < referenceRange> <observationRange> <text> </text> </observationRange> </referenceRange> </observation> </component> <component> <observation moodCode="EVN" classCode="OBS "> <templateId root="2.16.840.1.541540.02.28.22.4.2" /> <id nullFlavor="NA" /> <code codeSystem="local" code="Tyo189" displayName= "Urine-Glucose" /> <statusCode code="completed" /> < effectiveTime value="965336218622" /> <value unit="" xsi:type="PQ" value="Negative" /> <referenceRange> <observationRange> <text>Negative</text> </observationRange> </ referenceRange> </observation> </component> <component> <observation moodCode="EVN" classCode="OBS"> <templateId root= "216.840.1.466720.10.22.4.2" /> <id nullFlavor="NA" /> < code codeSystem="local" code="Omr600" displayName="Urine-Ketones" /> < statusCode code="completed" /> <effectiveTime value="319643243304" /> <value unit="" xsi:type="PQ" value="Negative" /> < referenceRange> <observationRange> <text>Negative</text > </observationRange> </referenceRange> </observation > </component> <component> <observation moodCode="EVN" classCode="OBS"> <templateId root="216.840.1.266851.10..4.2" /> <id nullFlavor="NA" /> <code codeSystem="local" code="Agw348" displayName="Urine-Leukocytes" /> <statusCode code="completed" /> <effectiveTime value="034080299145" /> <value unit="" xsi:type="PQ " value="1+" /> <interpretationCode codeSystem="local" code="A" /> <referenceRange> <observationRange> <text>Negative </text> </observationRange> </referenceRange> </ observation> </component> <component> <observation moodCode= "EVN" classCode="OBS"> <templateId root="16.840.1.794259.10...4.2 " /> <id nullFlavor="NA" /> <code codeSystem="local" code= "Pib795" displayName="Urine-Nitrite" /> <statusCode code="completed" / > <effectiveTime value="591213838594" /> <value unit="" xsi: type="PQ" value="Negative" /> <referenceRange> < observationRange> <text>Negative</text> </ observationRange> </referenceRange> </observation> </ component> <component> <observation moodCode="EVN" classCode="OBS"> <templateId root="216.840.1.949635.10.2022.4.2" /> <id nullFlavor="NA" /> <code codeSystem="local" code="Cog145" displayName= "Urine-Other" /> <statusCode code="completed" /> < effectiveTime value="711178077407" /> <value unit="" xsi:type="PQ" value=" Urine Saved if Culture Needed (48hrs from time of collection)" /> <interpretationCode codeSystem="local" code="A" /> <referenceRange > <observationRange> <text> </text> </ observationRange> </referenceRange> </observation> </ component> <component> <observation moodCode="EVN" classCode="OBS"> <templateId root="216.840.1.721220.10.22.4.2" /> <id nullFlavor="NA" /> <code codeSystem="local" code="Utr339" displayName= "Urine-pH" /> <statusCode code="completed" /> <effectiveTime value="868462540362" /> <value unit="" xsi:type="PQ" value="7.5" /> <referenceRange> <observationRange> <text>5-8.5</ text> </observationRange> </referenceRange> </ observation> </component> <component> <observation moodCode= "EVN" classCode="OBS"> <templateId root="216.840.1.191521.10.20.22.4.2 " /> <id nullFlavor="NA" /> <code codeSystem="local" code= "Val712" displayName="Urine-Protein" /> <statusCode code="completed" / > <effectiveTime value="580403792810" /> <value unit="" xsi: type="PQ" value="Negative" /> <referenceRange> < observationRange> <text>Negative</text> </ observationRange> </referenceRange> </observation> </ component> <component> <observation moodCode="EVN" classCode="OBS"> <templateId root="216.840.1.627291.02.28.22.4.2" /> <id nullFlavor="NA" /> <code codeSystem="local" code="Twv576" displayName= "Urine-RBC" /> <statusCode code="completed" /> <effectiveTime value="773927191068" /> <value unit="" xsi:type="PQ" value="0-2/HPF" / > <interpretationCode codeSystem="local" code="A" /> < referenceRange> <observationRange> <text> </text> </observationRange> </referenceRange> </observation> </component> <component> <observation moodCode="EVN" classCode="OBS "> <templateId root="16.840.1.219393.02.28.22.4.2" /> <id nullFlavor="NA" /> <code codeSystem="local" code="Qpe120" displayName= "Urine-Specific [place]" /> <statusCode code="completed" /> < effectiveTime value="889987366380" /> <value unit="" xsi:type="PQ" value="1.020" /> <referenceRange> <observationRange> <text>1.000-1.030</text> </observationRange> </ referenceRange> </observation> </component> <component> <observation moodCode="EVN" classCode="OBS"> <templateId root= "216.840.1.014730.02.28.22.4.2" /> <id nullFlavor="NA" /> < code codeSystem="local" code="Xyi637" displayName="Urine-WBC" /> < statusCode code="completed" /> <effectiveTime value="494284746512" /> <value unit="" xsi:type="PQ" value="2-5/HPF" /> < interpretationCode codeSystem="local" code="A" /> <referenceRange> <observationRange> <text> </text> </ observationRange> </referenceRange> </observation> </ component> <component> <observation moodCode="EVN" classCode="OBS"> <templateId root="840.1.67056402.28.22.4.2" /> <id nullFlavor="NA" /> <code codeSystem="local" code="Mvc264" displayName= "Urobilinogen" /> <statusCode code="completed" /> < effectiveTime value="980006682794" /> <value unit="" xsi:type="PQ" value="0.2" /> <referenceRange> <observationRange> <text>0.2-1.0</text> </observationRange> </ referenceRange> </observation> </component> </organizer> </entry > <entry> <organizer moodCode="EVN" classCode="BATTERY"> <templateId root="840.1.384348.22.4.1" /> <id nullFlavor="NA" /> <code codeSystem="local" code="JZI111" displayName="XM (2) LRPC" /> <statusCode code="completed" /> <component> <observation moodCode="EVN" classCode="OBS"> <templateId root="840.1.232212.22.4.2" /> <id nullFlavor="NA" /> <code codeSystem="local" code="Ftm798" displayName="CROSSMATCH" /> <statusCode code="completed" /> < effectiveTime value="716709696199" /> <value unit="" xsi:type="PQ" value="COMPATIBLE X 2" /> <referenceRange> <observationRange > <text /> </observationRange> </referenceRange > </observation> </component> <component> <observation moodCode="EVN" classCode="OBS"> <templateId root= "216.840.1.186690.10..22.4.2" /> <id nullFlavor="NA" /> < code codeSystem="local" code="Res87" displayName="Hct" /> <statusCode code="completed" /> <effectiveTime value="709607967123" /> < value unit="%" xsi:type="PQ" value="26.9" /> <interpretationCode codeSystem="local" code="L" /> <referenceRange> < observationRange> <text>36.0-46.0</text> </ observationRange> </referenceRange> </observation> </ component> <component> <observation moodCode="EVN" classCode="OBS"> <templateId root="2.16.840.1.715608.10..22.4.2" /> <id nullFlavor="NA" /> <code codeSystem="local" code="Lsg101" displayName= "Hgb" /> <statusCode code="completed" /> <effectiveTime value= "982139879386" /> <value unit="g/dL" xsi:type="PQ" value="7.6" /> <interpretationCode codeSystem="local" code="L" /> <referenceRange > <observationRange> <text>13.0-15.0</text> < /observationRange> </referenceRange> </observation> </ component> </organizer> </entry> <entry> <organizer moodCode="EVN" classCode="BATTERY"> <templateId root="16.840.1.434316.02.28.22.4.1" /> <id nullFlavor="NA" /> <code codeSystem="local" code="VKX9617" displayName="Leukoreduced Packed RBC Unit Checkout" /> <statusCode code= "completed" /> <component> <observation moodCode="EVN" classCode= "OBS"> <templateId root="06.27.840.1.601730.02.28.22.4.2" /> < id nullFlavor="NA" /> <code codeSystem="local" code="Mda664" displayName="LRPRBC Checkout" /> <statusCode code="completed" /> <effectiveTime value="403361226181" /> <value unit="" xsi:type="PQ " value="Checked Out." /> <referenceRange> <observationRange > <text /> </observationRange> </referenceRange > </observation> </component> </organizer> </entry> <entry> <organizer moodCode="EVN" classCode="BATTERY"> <templateId root= "16.840.1.569201.02.28.22.4.1" /> <id nullFlavor="NA" /> <code codeSystem="local" code="QAS358" displayName="Ferritin" /> <statusCode code ="completed" /> <component> <observation moodCode="EVN" classCode= "OBS"> <templateId root="06.27.840.1.483513.02.28.22.4.2" /> < id nullFlavor="NA" /> <code codeSystem="local" code="Ylo590" displayName="Ferritin" /> <statusCode code="completed" /> < effectiveTime value="429121104510" /> <value unit="ng/mL" xsi:type="PQ " value="3.90" /> <interpretationCode codeSystem="local" code="L" /> <referenceRange> <observationRange> <text>4.63- 204.00</text> </observationRange> </referenceRange> < /observation> </component> </organizer> </entry> <entry> < organizer moodCode="EVN" classCode="BATTERY"> <templateId root= "216.840.1.346653.10..22.4.1" /> <id nullFlavor="NA" /> <code codeSystem="local" code="HCC082" displayName="VIT B-12" /> <statusCode code ="completed" /> <component> <observation moodCode="EVN" classCode= "OBS"> <templateId root="216.840.1.586595.10..22.4.2" /> < id nullFlavor="NA" /> <code codeSystem="local" code="Idu726" displayName="Vitamin B12" /> <statusCode code="completed" /> < effectiveTime value="940073871967" /> <value unit="pg/mL" xsi:type="PQ " value="221.00" /> <referenceRange> <observationRange> <text>213.00-816.00</text> </observationRange> </ referenceRange> </observation> </component> </organizer> </entry > <entry> <organizer moodCode="EVN" classCode="BATTERY"> <templateId root="216.840.1.580389.10..22.4.1" /> <id nullFlavor="NA" /> <code codeSystem="local" code="RKC338" displayName="Folate" /> <statusCode code= "completed" /> <component> <observation moodCode="EVN" classCode= "OBS"> <templateId root="2.16.840.1.365772.10..22.4.2" /> < id nullFlavor="NA" /> <code codeSystem="local" code="Xph810" displayName="Folate" /> <statusCode code="completed" /> < effectiveTime value="868620563491" /> <value unit="ng/mL" xsi:type="PQ " value="15.40" /> <referenceRange> <observationRange> <text>7.00-31.40</text> </observationRange> </ referenceRange> </observation> </component> </organizer> </entry > <entry> <organizer moodCode="EVN" classCode="BATTERY"> <templateId root="2.16.840.1.842774.10..22.4.1" /> <id nullFlavor="NA" /> <code codeSystem="local" code="DUQ1595" displayName="Leukoreduced Packed RBC Unit Checkout" /> <statusCode code="completed" /> <component> < observation moodCode="EVN" classCode="OBS"> <templateId root= "2.16.840.1.090546.10.20.22.4.2" /> <id nullFlavor="NA" /> < code codeSystem="local" code="Ivk539" displayName="LRPRBC Checkout" /> <statusCode code="completed" /> <effectiveTime value="090457968362" /> <value unit="" xsi:type="PQ" value="Checked Out." /> < referenceRange> <observationRange> <text /> < /observationRange> </referenceRange> </observation> </ component> </organizer> </entry> <entry> <organizer moodCode="EVN" classCode="BATTERY"> <templateId root="06.27.840.1.005534.10.4.1" /> <id nullFlavor="NA" /> <code codeSystem="local" code="VIL613" displayName="Rapid Drug Screen,Medical" /> <statusCode code="completed" /> <component> <observation moodCode="EVN" classCode="OBS"> < templateId root="06.27.840.1.581207.02.28.22.4.2" /> <id nullFlavor="NA " /> <code codeSystem="local" code="Jdf106" displayName="Amphetamine" / > <statusCode code="completed" /> <effectiveTime value= "145550780226" /> <value unit="" xsi:type="PQ" value="NEGATIVE" /> <referenceRange> <observationRange> <text>NEGATIVE </text> </observationRange> </referenceRange> </ observation> </component> <component> <observation moodCode= "EVN" classCode="OBS"> <templateId root="840.1.752746.02.28.22.4.2 " /> <id nullFlavor="NA" /> <code codeSystem="local" code= "Fwh890" displayName="Barbiturates" /> <statusCode code="completed" /> <effectiveTime value="161274291129" /> <value unit="" xsi: type="PQ" value="NEGATIVE" /> <referenceRange> < observationRange> <text>NEGATIVE</text> </ observationRange> </referenceRange> </observation> </ component> <component> <observation moodCode="EVN" classCode="OBS"> <templateId root="06.27.840.1.445339.02.28.22.4.2" /> <id nullFlavor="NA" /> <code codeSystem="local" code="Ogr773" displayName= "Benzodiazepines" /> <statusCode code="completed" /> < effectiveTime value="762653856299" /> <value unit="" xsi:type="PQ" value="NEGATIVE" /> <referenceRange> <observationRange> <text>NEGATIVE</text> </observationRange> </ referenceRange> </observation> </component> <component> <observation moodCode="EVN" classCode="OBS"> <templateId root= "06.27.840.1.668415.02.28.22.4.2" /> <id nullFlavor="NA" /> < code codeSystem="local" code="Hoj803" displayName="Cocaine" /> < statusCode code="completed" /> <effectiveTime value="892636039241" /> <value unit="" xsi:type="PQ" value="NEGATIVE" /> < referenceRange> <observationRange> <text>NEGATIVE</text > </observationRange> </referenceRange> </observation > </component> <component> <observation moodCode="EVN" classCode="OBS"> <templateId root="06.27.840.1.585566.02.28.22.4.2" /> <id nullFlavor="NA" /> <code codeSystem="local" code="Cpb696" displayName="Marijuana" /> <statusCode code="completed" /> < effectiveTime value="688035949975" /> <value unit="" xsi:type="PQ" value="NEGATIVE" /> <referenceRange> <observationRange> <text>NEGATIVE</text> </observationRange> </ referenceRange> </observation> </component> <component> <observation moodCode="EVN" classCode="OBS"> <templateId root= "06.27.840.1.966756.02.28.22.4.2" /> <id nullFlavor="NA" /> < code codeSystem="local" code="Ipk199" displayName="Methylenedioxymethamphetamine " /> <statusCode code="completed" /> <effectiveTime value= "360907276048" /> <value unit="" xsi:type="PQ" value="NEGATIVE" /> <referenceRange> <observationRange> <text>NEGATIVE </text> </observationRange> </referenceRange> </ observation> </component> <component> <observation moodCode= "EVN" classCode="OBS"> <templateId root="16.840.1.999058.10..4.2 " /> <id nullFlavor="NA" /> <code codeSystem="local" code= "Lgz179" displayName="Opiates" /> <statusCode code="completed" /> <effectiveTime value="002532959621" /> <value unit="" xsi:type="PQ " value="NEGATIVE" /> <referenceRange> <observationRange> <text>NEGATIVE</text> </observationRange> </ referenceRange> </observation> </component> <component> <observation moodCode="EVN" classCode="OBS"> <templateId root= "16.840.1.788735.02.28.22.4.2" /> <id nullFlavor="NA" /> < code codeSystem="local" code="Fne011" displayName="Oxycodone" /> < statusCode code="completed" /> <effectiveTime value="025389207114" /> <value unit="" xsi:type="PQ" value="NEGATIVE" /> < referenceRange> <observationRange> <text>NEGATIVE</text > </observationRange> </referenceRange> </observation > </component> <component> <observation moodCode="EVN" classCode="OBS"> <templateId root="06.27.840.1.219367.02.28.22.4.2" /> <id nullFlavor="NA" /> <code codeSystem="local" code="Xcv444" displayName="Phencyclidine" /> <statusCode code="completed" /> <effectiveTime value="033807060193" /> <value unit="" xsi:type="PQ" value="NEGATIVE" /> <referenceRange> <observationRange> <text>NEGATIVE</text> </observationRange> </ referenceRange> </observation> </component> <component> <observation moodCode="EVN" classCode="OBS"> <templateId root= "2.16.840.1.727491.10..22.4.2" /> <id nullFlavor="NA" /> < code codeSystem="local" code="Snk067" displayName="Propoxyphene" /> < statusCode code="completed" /> <effectiveTime value="128044213512" /> <value unit="" xsi:type="PQ" value="NEGATIVE" /> < referenceRange> <observationRange> <text>NEGATIVE</text > </observationRange> </referenceRange> </observation > </component> <component> <observation moodCode="EVN" classCode="OBS"> <templateId root="2.16.840.1.365656.10..22.4.2" /> <id nullFlavor="NA" /> <code codeSystem="local" code="Jkf885" displayName="Tricyclic Antidepressant" /> <statusCode code="completed" /> <effectiveTime value="296331298782" /> <value unit="" xsi: type="PQ" value="NEGATIVE" /> <referenceRange> < observationRange> <text>NEGATIVE</text> </ observationRange> </referenceRange> </observation> </ component> </organizer> </entry> <entry> <organizer moodCode="EVN" classCode="BATTERY"> <templateId root="16.840.1.792053.10.4.1" /> <id nullFlavor="NA" /> <code codeSystem="local" code="ORD92" displayName="Surgical Pathology" /> <statusCode code="completed" /> < component> <observation moodCode="EVN" classCode="OBS"> < templateId root="840.1.125733.02.28.224.2" /> <id nullFlavor="NA " /> <code codeSystem="local" code="Qtr8753" displayName="Surg Path" / > <statusCode code="completed" /> <effectiveTime value= "869301639427" /> <value unit="" xsi:type="PQ" value="Sent to [facility]" /> <referenceRange> <observationRange> <text /> </observationRange> </referenceRange> </ observation> </component> </organizer> </entry> <entry> <organizer moodCode="EVN" classCode="BATTERY"> <templateId root= "06.27.840.1.842182.02.28.224.1" /> <id nullFlavor="NA" /> <code codeSystem="local" code="ZBG681" displayName="IFOBT Occult Blood" /> < statusCode code="completed" /> <component> <observation moodCode= "EVN" classCode="OBS"> <templateId root="16.840.1.530709.02.28.22.4.2 " /> <id nullFlavor="NA" /> <code codeSystem="local" code= "Vtx323" displayName="IFOBT Occult Blood" /> <statusCode code= "completed" /> <effectiveTime value="449011512097" /> <value unit="" xsi:type="PQ" value="NEGATIVE" /> <referenceRange> < observationRange> <text>Negative</text> </ observationRange> </referenceRange> </observation> </ component> </organizer> </entry> <entry> <organizer moodCode="EVN" classCode="BATTERY"> <templateId root="06.27.840.1.327777.10..22.4.1" /> <id nullFlavor="NA" /> <code codeSystem="local" code="WNW482" displayName="HH" /> <statusCode code="completed" /> <component> <observation moodCode="EVN" classCode="OBS"> <templateId root= "06.27.840.1.013516.10..4.2" /> <id nullFlavor="NA" /> < code codeSystem="local" code="Res87" displayName="Hct" /> <statusCode code="completed" /> <effectiveTime value="" /> < value unit="%" xsi:type="PQ" value="31.7" /> <interpretationCode codeSystem="local" code="L" /> <referenceRange> < observationRange> <text>36.0-46.0</text> </ observationRange> </referenceRange> </observation> </ component> <component> <observation moodCode="EVN" classCode="OBS"> <templateId root="06.27.840.1.629220.10..4.2" /> <id nullFlavor="NA" /> <code codeSystem="local" code="Efw490" displayName= "Hgb" /> <statusCode code="completed" /> <effectiveTime value= "486188318697" /> <value unit="g/dL" xsi:type="PQ" value="9.4" /> <interpretationCode codeSystem="local" code="L" /> <referenceRange > <observationRange> <text>13.0-15.0</text> < /observationRange> </referenceRange> </observation> </ component> </organizer> </entry> <entry> <organizer moodCode="EVN" classCode="BATTERY"> <templateId root="16.840.1.539289.10..22.4.1" /> <id nullFlavor="NA" /> <code codeSystem="local" code="ASU572" displayName="IFOBT Occult Blood" /> <statusCode code="completed" /> < component> <observation moodCode="EVN" classCode="OBS"> < templateId root="06.27.840.1.014107.10..4.2" /> <id nullFlavor="NA " /> <code codeSystem="local" code="Ohy346" displayName="IFOBT Occult Blood" /> <statusCode code="completed" /> <effectiveTime value ="741207976499" /> <value unit="" xsi:type="PQ" value="NEGATIVE" /> <referenceRange> <observationRange> <text> Negative</text> </observationRange> </referenceRange> </observation> </component> </organizer> </entry> <entry> < organizer moodCode="EVN" classCode="BATTERY"> <templateId root= "06.27.840.1.902963.10..22.4.1" /> <id nullFlavor="NA" /> <code codeSystem="local" code="ORD2" displayName="CBC with Auto Diff" /> < statusCode code="completed" /> <component> <observation moodCode= "EVN" classCode="OBS"> <templateId root="16.840.1.137300.10..22.4.2 " /> <id nullFlavor="NA" /> <code codeSystem="local" code= "Fmo981" displayName="Baso%" /> <statusCode code="completed" /> <effectiveTime value="618563544696" /> <value unit="%" xsi: type="PQ" value="1.10" /> <referenceRange> <observationRange > <text>0.00-2.50</text> </observationRange> </ referenceRange> </observation> </component> <component> <observation moodCode="EVN" classCode="OBS"> <templateId root= "2.16.840.1.460477....4.2" /> <id nullFlavor="NA" /> < code codeSystem="local" code="Rjg078" displayName="Eos" /> <statusCode code="completed" /> <effectiveTime value="" /> < value unit="K/uL" xsi:type="PQ" value="0.3" /> <referenceRange> <observationRange> <text>0.0-0.7</text> </ observationRange> </referenceRange> </observation> </ component> <component> <observation moodCode="EVN" classCode="OBS"> <templateId root="2.16.840.1.069163....4.2" /> <id nullFlavor="NA" /> <code codeSystem="local" code="Zsn009" displayName= "Eos%" /> <statusCode code="completed" /> <effectiveTime value="" /> <value unit="%" xsi:type="PQ" value="4.2" / > <referenceRange> <observationRange> <text>0.0 -7.0</text> </observationRange> </referenceRange> </ observation> </component> <component> <observation moodCode= "EVN" classCode="OBS"> <templateId root="216.840.1.368602.10.22.4.2 " /> <id nullFlavor="NA" /> <code codeSystem="local" code= "Res87" displayName="Hct" /> <statusCode code="completed" /> < effectiveTime value="" /> <value unit="%" xsi:type="PQ " value="34.3" /> <interpretationCode codeSystem="local" code="L" /> <referenceRange> <observationRange> <text>36.0- 46.0</text> </observationRange> </referenceRange> </ observation> </component> <component> <observation moodCode= "EVN" classCode="OBS"> <templateId root="216.840.1.614596.02.28.22.4.2 " /> <id nullFlavor="NA" /> <code codeSystem="local" code= "Pth097" displayName="Hgb" /> <statusCode code="completed" /> <effectiveTime value="" /> <value unit="g/dL" xsi:type="PQ " value="10.5" /> <interpretationCode codeSystem="local" code="L" /> <referenceRange> <observationRange> <text>13.0- 15.0</text> </observationRange> </referenceRange> </ observation> </component> <component> <observation moodCode= "EVN" classCode="OBS"> <templateId root="216.840.1.682708.10.2022.4.2 " /> <id nullFlavor="NA" /> <code codeSystem="local" code= "Pdp297" displayName="Lym" /> <statusCode code="completed" /> <effectiveTime value="" /> <value unit="K/uL" xsi:type="PQ " value="1.98" /> <referenceRange> <observationRange> <text>0.60-3.40</text> </observationRange> </ referenceRange> </observation> </component> <component> <observation moodCode="EVN" classCode="OBS"> <templateId root= "216.840.1.303814.10.4.2" /> <id nullFlavor="NA" /> < code codeSystem="local" code="Oln913" displayName="Lym%" /> < statusCode code="completed" /> <effectiveTime value="" /> <value unit="%" xsi:type="PQ" value="26.9" /> < referenceRange> <observationRange> <text>10.0-50.0</text > </observationRange> </referenceRange> </observation > </component> <component> <observation moodCode="EVN" classCode="OBS"> <templateId root="216.840.1.062428.02.28.22.4.2" /> <id nullFlavor="NA" /> <code codeSystem="local" code="Res89" displayName="MCH" /> <statusCode code="completed" /> < effectiveTime value="" /> <value unit="pg" xsi:type="PQ" value="22.5" /> <interpretationCode codeSystem="local" code="L" /> <referenceRange> <observationRange> <text>27.0- 31.0</text> </observationRange> </referenceRange> </ observation> </component> <component> <observation moodCode= "EVN" classCode="OBS"> <templateId root="216.840.1.775011.02.28.22.4.2 " /> <id nullFlavor="NA" /> <code codeSystem="local" code= "Res90" displayName="MCHC" /> <statusCode code="completed" /> <effectiveTime value="" /> <value unit="g/dL" xsi:type="PQ " value="30.6" /> <interpretationCode codeSystem="local" code="L" /> <referenceRange> <observationRange> <text>32.0- 36.0</text> </observationRange> </referenceRange> </ observation> </component> <component> <observation moodCode= "EVN" classCode="OBS"> <templateId root="216.840.1.706306.02.28.224.2 " /> <id nullFlavor="NA" /> <code codeSystem="local" code= "Res88" displayName="MCV" /> <statusCode code="completed" /> < effectiveTime value="" /> <value unit="fL" xsi:type="PQ" value="73.4" /> <interpretationCode codeSystem="local" code="L" /> <referenceRange> <observationRange> <text>80.0- 97.0</text> </observationRange> </referenceRange> </ observation> </component> <component> <observation moodCode= "EVN" classCode="OBS"> <templateId root="16.840.1.012854.10.2022.4.2 " /> <id nullFlavor="NA" /> <code codeSystem="local" code= "Qwx600" displayName="[place]%" /> <statusCode code="completed" /> <effectiveTime value="" /> <value unit="%" xsi: type="PQ" value="7.6" /> <referenceRange> <observationRange > <text>0.0-12.0</text> </observationRange> </ referenceRange> </observation> </component> <component> <observation moodCode="EVN" classCode="OBS"> <templateId root= "216.840.1.574535.10.20.22.4.2" /> <id nullFlavor="NA" /> < code codeSystem="local" code="Qbd427" displayName="MPV" /> <statusCode code="completed" /> <effectiveTime value="488019067558" /> < value unit="fL" xsi:type="PQ" value="11.1" /> <interpretationCode codeSystem="local" code="H" /> <referenceRange> < observationRange> <text>7.4-10.0</text> </ observationRange> </referenceRange> </observation> </ component> <component> <observation moodCode="EVN" classCode="OBS"> <templateId root="216.840.1.764851.10.22.4.2" /> <id nullFlavor="NA" /> <code codeSystem="local" code="Mnr902" displayName= "Julianne%" /> <statusCode code="completed" /> <effectiveTime value="144935639020" /> <value unit="%" xsi:type="PQ" value="60.2" /> <referenceRange> <observationRange> <text> 37.0-80.0</text> </observationRange> </referenceRange> </observation> </component> <component> <observation moodCode="EVN" classCode="OBS"> <templateId root= "216.840.1.453180.10.20.22.4.2" /> <id nullFlavor="NA" /> < code codeSystem="local" code="Res97" displayName="Plt" /> <statusCode code="completed" /> <effectiveTime value="" /> < value unit="K/uL" xsi:type="PQ" value="222" /> <referenceRange> <observationRange> <text>150-400</text> </ observationRange> </referenceRange> </observation> </ component> <component> <observation moodCode="EVN" classCode="OBS"> <templateId root="216.840.1.829460.10.20.22.4.2" /> <id nullFlavor="NA" /> <code codeSystem="local" code="Fhy627" displayName= "RBC" /> <statusCode code="completed" /> <effectiveTime value= "" /> <value unit="M/uL" xsi:type="PQ" value="4.67" /> <referenceRange> <observationRange> <text>3.60- 5.00</text> </observationRange> </referenceRange> </ observation> </component> <component> <observation moodCode= "EVN" classCode="OBS"> <templateId root="16.840.1.654076.10.20.22.4.2 " /> <id nullFlavor="NA" /> <code codeSystem="local" code= "Res91" displayName="RDW" /> <statusCode code="completed" /> < effectiveTime value="" /> <value unit="%" xsi:type="PQ " value="22.7" /> <interpretationCode codeSystem="local" code="H" /> <referenceRange> <observationRange> <text>11.6- 14.8</text> </observationRange> </referenceRange> </ observation> </component> <component> <observation moodCode= "EVN" classCode="OBS"> <templateId root="16.840.1.910667.10.20.22.4.2 " /> <id nullFlavor="NA" /> <code codeSystem="local" code= "Res98" displayName="WBC" /> <statusCode code="completed" /> < effectiveTime value="" /> <value unit="K/uL" xsi:type="PQ" value="7.36" /> <referenceRange> <observationRange> <text>5.00-10.00</text> </observationRange> </ referenceRange> </observation> </component> <component> <observation moodCode="EVN" classCode="OBS"> <templateId root= "06.27.840.1.603703.22.4.2" /> <id nullFlavor="NA" /> < code codeSystem="local" code="Res99" displayName="Julianne" /> <statusCode code="completed" /> <effectiveTime value="" /> < value unit="K/uL" xsi:type="PQ" value="4.43" /> <referenceRange> <observationRange> <text>2.00-6.90</text> </ observationRange> </referenceRange> </observation> </ component> <component> <observation moodCode="EVN" classCode="OBS"> <templateId root="06.27.840.1.778072.10.2022.4.2" /> <id nullFlavor="NA" /> <code codeSystem="local" code="Owt316" displayName= "W[place]the" /> <statusCode code="completed" /> <effectiveTime value ="" /> <value unit="K/uL" xsi:type="PQ" value="0.6" /> <referenceRange> <observationRange> <text>0.0-0.9< /text> </observationRange> </referenceRange> </ observation> </component> <component> <observation moodCode= "EVN" classCode="OBS"> <templateId root="216.840.1.300770.10.22.4.2 " /> <id nullFlavor="NA" /> <code codeSystem="local" code= "Kqx247" displayName="Baso" /> <statusCode code="completed" /> <effectiveTime value="657092996603" /> <value unit="K/uL" xsi:type= "PQ" value="0.1" /> <referenceRange> <observationRange> <text>0.0-0.2</text> </observationRange> </ referenceRange> </observation> </component> </organizer> </entry > <entry> <organizer moodCode="EVN" classCode="BATTERY"> <templateId root="216.840.1.007970.10...4.1" /> <id nullFlavor="NA" /> <code codeSystem="local" code="17475-7" displayName="Complete urinalysis with reflex to culture" /> <statusCode code="completed" /> <component> < observation moodCode="EVN" classCode="OBS"> <templateId root= "216.840.1.958633.10..22.4.2" /> <id nullFlavor="NA" /> < code codeSystem="local" code="5778-6" displayName="Urine color determination" / > <statusCode code="completed" /> <effectiveTime value= "295656033011" /> <value unit="" xsi:type="PQ" value="YELLOW" /> <referenceRange> <observationRange> <text>NRG</text > </observationRange> </referenceRange> </observation > </component> <component> <observation moodCode="EVN" classCode="OBS"> <templateId root="2.16.840.1.414743.10..22.4.2" /> <id nullFlavor="NA" /> <code codeSystem="local" code="30257-4 " displayName="Urine clarity determination" /> <statusCode code= "completed" /> <effectiveTime value="439882381500" /> <value unit="" xsi:type="PQ" value="SLIGHTLY CLOUDY" /> <referenceRange> <observationRange> <text>NRG</text> </ observationRange> </referenceRange> </observation> </ component> <component> <observation moodCode="EVN" classCode="OBS"> <templateId root="216.840.1.266911.10...4.2" /> <id nullFlavor="NA" /> <code codeSystem="local" code="5803-2" displayName= "Urine pH measurement by test strip" /> <statusCode code="completed" / > <effectiveTime value="339000464014" /> <value unit="" xsi: type="PQ" value="6.5" /> <referenceRange> <observationRange > <text>5-9</text> </observationRange> </ referenceRange> </observation> </component> <component> <observation moodCode="EVN" classCode="OBS"> <templateId root= "2.16.840.1.970796.10.20.22.4.2" /> <id nullFlavor="NA" /> < code codeSystem="local" code="5811-5" displayName="Specific gravity of urine by test strip" /> <statusCode code="completed" /> <effectiveTime value="828806464459" /> <value unit="" xsi:type="PQ" value="1.020" /> <referenceRange> <observationRange> <text>1.016 -1.022</text> </observationRange> </referenceRange> < /observation> </component> <component> <observation moodCode= "EVN" classCode="OBS"> <templateId root="216.840.1.033837.10.2022.4.2 " /> <id nullFlavor="NA" /> <code codeSystem="local" code= "77773-8" displayName="Urine protein assay by test strip, semi-quantitative" /> <statusCode code="completed" /> <effectiveTime value= "524036266318" /> <value unit="" xsi:type="PQ" value="NEGATIVE" /> <referenceRange> <observationRange> <text>NEGATIVE </text> </observationRange> </referenceRange> </ observation> </component> <component> <observation moodCode= "EVN" classCode="OBS"> <templateId root="06.27.840.1.104227.10.22.4.2 " /> <id nullFlavor="NA" /> <code codeSystem="local" code= "80920-0" displayName="Urine glucose detection by automated test strip" /> <statusCode code="completed" /> <effectiveTime value="278893554323 " /> <value unit="" xsi:type="PQ" value="NEGATIVE" /> < referenceRange> <observationRange> <text>NEGATIVE</text > </observationRange> </referenceRange> </observation > </component> <component> <observation moodCode="EVN" classCode="OBS"> <templateId root="06.27.840.1.929315.10.2022.4.2" /> <id nullFlavor="NA" /> <code codeSystem="local" code="22162-9 " displayName="Erythrocytes detection in urine sediment by light microscopy" /> <statusCode code="completed" /> <effectiveTime value= "779623785074" /> <value unit="" xsi:type="PQ" value="1+" /> < interpretationCode codeSystem="local" code="*" /> <referenceRange> <observationRange> <text>NEGATIVE</text> </ observationRange> </referenceRange> </observation> </ component> <component> <observation moodCode="EVN" classCode="OBS"> <templateId root="216.840.1.335148.10..22.4.2" /> <id nullFlavor="NA" /> <code codeSystem="local" code="07871-4" displayName= "Urine ketones detection by automated test strip" /> <statusCode code= "completed" /> <effectiveTime value="349937862118" /> <value unit="" xsi:type="PQ" value="NEGATIVE" /> <referenceRange> < observationRange> <text>NEGATIVE</text> </ observationRange> </referenceRange> </observation> </ component> <component> <observation moodCode="EVN" classCode="OBS"> <templateId root="06.27.840.1.955179.10..22.4.2" /> <id nullFlavor="NA" /> <code codeSystem="local" code="5802-4" displayName= "Urine nitrite detection by test strip" /> <statusCode code="completed " /> <effectiveTime value="040701361523" /> <value unit="" xsi :type="PQ" value="NEGATIVE" /> <referenceRange> < observationRange> <text>NEGATIVE</text> </ observationRange> </referenceRange> </observation> </ component> <component> <observation moodCode="EVN" classCode="OBS"> <templateId root="16.840.1.522527.10..22.4.2" /> <id nullFlavor="NA" /> <code codeSystem="local" code="5770-3" displayName= "Urine total bilirubin detection by test strip" /> <statusCode code= "completed" /> <effectiveTime value="521185915871" /> <value unit="" xsi:type="PQ" value="NEGATIVE" /> <referenceRange> < observationRange> <text>NEGATIVE</text> </ observationRange> </referenceRange> </observation> </ component> <component> <observation moodCode="EVN" classCode="OBS"> <templateId root="2.16.840.1.939591.10...4.2" /> <id nullFlavor="NA" /> <code codeSystem="local" code="71918-4" displayName= "Urine urobilinogen measurement by automated test strip (mass/volume)" /> <statusCode code="completed" /> <effectiveTime value="388974864824 " /> <value unit="" xsi:type="PQ" value="NORMAL" /> < referenceRange> <observationRange> <text>NORMAL</text> </observationRange> </referenceRange> </observation> </component> <component> <observation moodCode="EVN" classCode ="OBS"> <templateId root="2.16.840.1.273186.10..22.4.2" /> < id nullFlavor="NA" /> <code codeSystem="local" code="5799-2" displayName="Urine leukocyte esterase detection by dipstick" /> < statusCode code="completed" /> <effectiveTime value="792281728776" /> <value unit="" xsi:type="PQ" value="NEGATIVE" /> < referenceRange> <observationRange> <text>NEGATIVE</text > </observationRange> </referenceRange> </observation > </component> <component> <observation moodCode="EVN" classCode="OBS"> <templateId root="2.16.840.1.398776.10.20.22.4.2" /> <id nullFlavor="NA" /> <code codeSystem="local" code="93994-3 " displayName="Automated urine sediment erythrocyte count by microscopy (number/ high power field)" /> <statusCode code="completed" /> < effectiveTime value="160399869832" /> <value unit="[HPF]" xsi:type="PQ " value="" /> <referenceRange> <observationRange> <text>NRG</text> </observationRange> </referenceRange> </observation> </component> <component> <observation moodCode="EVN" classCode="OBS"> <templateId root= "216.840.1.476090.10...4.2" /> <id nullFlavor="NA" /> < code codeSystem="local" code="5821-4" displayName="Automated urine sediment leukocyte count by microscopy (number/high power field)" /> < statusCode code="completed" /> <effectiveTime value="465029030504" /> <value unit="" xsi:type="PQ" value="NONE" /> <referenceRange> <observationRange> <text>NRG</text> </ observationRange> </referenceRange> </observation> </ component> <component> <observation moodCode="EVN" classCode="OBS"> <templateId root="216.840.1.419798.10..22.4.2" /> <id nullFlavor="NA" /> <code codeSystem="local" code="54876-0" displayName= "Bacteria detection in urine sediment by light microscopy" /> < statusCode code="completed" /> <effectiveTime value="816409277455" /> <value unit="" xsi:type="PQ" value="TRACE" /> <referenceRange > <observationRange> <text>NRG</text> </ observationRange> </referenceRange> </observation> </ component> <component> <observation moodCode="EVN" classCode="OBS"> <templateId root="2.840.1.532025.10.20.22.4.2" /> <id nullFlavor="NA" /> <code codeSystem="local" code="38941-7" displayName= "Squamous epithelial cells detection in urine sediment by light microscopy" /> <statusCode code="completed" /> <effectiveTime value= "191605895899" /> <value unit="" xsi:type="PQ" value="5-10" /> <referenceRange> <observationRange> <text>NRG</text> </observationRange> </referenceRange> </observation> </component> <component> <observation moodCode="EVN" classCode ="OBS"> <templateId root="06.27.840.1.090387.10..22.4.2" /> < id nullFlavor="NA" /> <code codeSystem="local" code="43493-4" displayName="Crystals detection in urine sediment by light microscopy" /> <statusCode code="completed" /> <effectiveTime value="063030008551 " /> <value unit="" xsi:type="PQ" value="PRESENT" /> < interpretationCode codeSystem="local" code="*" /> <referenceRange> <observationRange> <text>NRG</text> </ observationRange> </referenceRange> </observation> </ component> <component> <observation moodCode="EVN" classCode="OBS"> <templateId root="06.27.840.1.619277.10.20.22.4.2" /> <id nullFlavor="NA" /> <code codeSystem="local" code="90154-3" displayName= "Casts detection in urine sediment by light microscopy" /> <statusCode code="completed" /> <effectiveTime value="166599166593" /> < value unit="" xsi:type="PQ" value="NONE" /> <referenceRange> <observationRange> <text>NRG</text> </observationRange > </referenceRange> </observation> </component> < component> <observation moodCode="EVN" classCode="OBS"> < templateId root="2.16.840.1.089191.10.20.22.4.2" /> <id nullFlavor="NA " /> <code codeSystem="local" code="8247-9" displayName="Mucus detection in urine sediment by light microscopy" /> <statusCode code= "completed" /> <effectiveTime value="422866580343" /> <value unit="" xsi:type="PQ" value="SMALL" /> <interpretationCode codeSystem= "local" code="*" /> <referenceRange> <observationRange> <text>NRG</text> </observationRange> </ referenceRange> </observation> </component> <component> <observation moodCode="EVN" classCode="OBS"> <templateId root= "2.16.840.1.161244.10.20.22.4.2" /> <id nullFlavor="NA" /> < code codeSystem="local" code="20036-9" displayName="Complete urinalysis with reflex to culture" /> <statusCode code="completed" /> < effectiveTime value="901640491607" /> <value unit="" xsi:type="PQ" value="NO" /> <referenceRange> <observationRange> <text>NRG</text> </observationRange> </referenceRange> </observation> </component> <component> <observation moodCode="EVN" classCode="OBS"> <templateId root= "2.16.840.1.354203.10.20.22.4.2" /> <id nullFlavor="NA" /> < code codeSystem="local" code="8246-1" displayName="Amorphous sediment detection in urine sediment by light microscopy" /> <statusCode code="completed" /> <effectiveTime value="818792044857" /> <value unit="" xsi: type="PQ" value="FEW RAMIRO URATES" /> <interpretationCode codeSystem= "local" code="*" /> <referenceRange> <observationRange> <text>NRG</text> </observationRange> </ referenceRange> </observation> </component> </organizer> </entry > <entry> <organizer moodCode="EVN" classCode="BATTERY"> <templateId root="2.16.840.1.132510.10.20.22.4.1" /> <id nullFlavor="NA" /> <code codeSystem="local" code="29865-2" displayName="Urine drug screening test" /> <statusCode code="completed" /> <component> <observation moodCode ="EVN" classCode="OBS"> <templateId root= "2.16.840.1.601154.10.20.22.4.2" /> <id nullFlavor="NA" /> < code codeSystem="local" code="08642-5" displayName="Urine phencyclidine detection by screening method" /> <statusCode code="completed" /> <effectiveTime value="366919152609" /> <value unit="" xsi:type="PQ " value="NEGATIVE" /> <referenceRange> <observationRange> <text>NEGATIVE</text> </observationRange> </ referenceRange> </observation> </component> <component> <observation moodCode="EVN" classCode="OBS"> <templateId root= "216.840.1.186072.10..22.4.2" /> <id nullFlavor="NA" /> < code codeSystem="local" code="62722-5" displayName="Urine benzodiazepines detection by screening method" /> <statusCode code="completed" /> <effectiveTime value="093095393775" /> <value unit="" xsi:type="PQ " value="NEGATIVE" /> <referenceRange> <observationRange> <text>NEGATIVE</text> </observationRange> </ referenceRange> </observation> </component> <component> <observation moodCode="EVN" classCode="OBS"> <templateId root= "216.840.1.776427.10..4.2" /> <id nullFlavor="NA" /> < code codeSystem="local" code="3397-7" displayName="Urine cocaine detection" /> <statusCode code="completed" /> <effectiveTime value= "680522714371" /> <value unit="" xsi:type="PQ" value="NEGATIVE" /> <referenceRange> <observationRange> <text>NEGATIVE </text> </observationRange> </referenceRange> </ observation> </component> <component> <observation moodCode= "EVN" classCode="OBS"> <templateId root="216.840.1.839069.10.22.4.2 " /> <id nullFlavor="NA" /> <code codeSystem="local" code= "98819-5" displayName="Urine amphetamines detection by screening method" /> <statusCode code="completed" /> <effectiveTime value= "049904656690" /> <value unit="" xsi:type="PQ" value="NEGATIVE" /> <referenceRange> <observationRange> <text>NEGATIVE </text> </observationRange> </referenceRange> </ observation> </component> <component> <observation moodCode= "EVN" classCode="OBS"> <templateId root="216.840.1.370934.10..22.4.2 " /> <id nullFlavor="NA" /> <code codeSystem="local" code= "86892-4" displayName="Urine methamphetamine detection by screening method" /> <statusCode code="completed" /> <effectiveTime value= "951172585363" /> <value unit="" xsi:type="PQ" value="NEGATIVE" /> <referenceRange> <observationRange> <text>NEGATIVE </text> </observationRange> </referenceRange> </ observation> </component> <component> <observation moodCode= "EVN" classCode="OBS"> <templateId root="216.840.1.409381...4.2 " /> <id nullFlavor="NA" /> <code codeSystem="local" code= "34886-3" displayName="Urine cannabinoids detection by screening method" /> <statusCode code="completed" /> <effectiveTime value= "188053991902" /> <value unit="" xsi:type="PQ" value="NEGATIVE" /> <referenceRange> <observationRange> <text>NEGATIVE </text> </observationRange> </referenceRange> </ observation> </component> <component> <observation moodCode= "EVN" classCode="OBS"> <templateId root="216.840.1.053875.10..22.4.2 " /> <id nullFlavor="NA" /> <code codeSystem="local" code= "75792-3" displayName="Urine opiates detection by screening method" /> <statusCode code="completed" /> <effectiveTime value="634005782372" /> <value unit="" xsi:type="PQ" value="NEGATIVE" /> < referenceRange> <observationRange> <text>NEGATIVE</text > </observationRange> </referenceRange> </observation > </component> <component> <observation moodCode="EVN" classCode="OBS"> <templateId root="2.16.840.1.872172.10.20.22.4.2" /> <id nullFlavor="NA" /> <code codeSystem="local" code="3377-9" displayName="Urine barbiturates detection" /> <statusCode code= "completed" /> <effectiveTime value="175876541169" /> <value unit="" xsi:type="PQ" value="NEGATIVE" /> <referenceRange> < observationRange> <text>NEGATIVE</text> </ observationRange> </referenceRange> </observation> </ component> <component> <observation moodCode="EVN" classCode="OBS"> <templateId root="16.840.1.983645.10.20.22.4.2" /> <id nullFlavor="NA" /> <code codeSystem="local" code="68272-1" displayName= "Screening urine tricyclic antidepressants detection" /> <statusCode code="completed" /> <effectiveTime value="504632643530" /> < value unit="" xsi:type="PQ" value="NEGATIVE" /> <referenceRange> <observationRange> <text>NEGATIVE</text> </ observationRange> </referenceRange> </observation> </ component> <component> <observation moodCode="EVN" classCode="OBS"> <templateId root="216.840.1.741525.10.20.22.4.2" /> <id nullFlavor="NA" /> <code codeSystem="local" code="76939-6" displayName= "Urine methadone detection by screening method" /> <statusCode code= "completed" /> <effectiveTime value="612463057804" /> <value unit="" xsi:type="PQ" value="NEGATIVE" /> <referenceRange> < observationRange> <text>NEGATIVE</text> </ observationRange> </referenceRange> </observation> </ component> <component> <observation moodCode="EVN" classCode="OBS"> <templateId root="216.840.1.584381.10..22.4.2" /> <id nullFlavor="NA" /> <code codeSystem="local" code="69297-6" displayName= "Urine oxycodone detection" /> <statusCode code="completed" /> <effectiveTime value="133848338174" /> <value unit="" xsi:type="PQ" value="NEGATIVE" /> <referenceRange> <observationRange> <text>NEGATIVE</text> </observationRange> </ referenceRange> </observation> </component> <component> <observation moodCode="EVN" classCode="OBS"> <templateId root= "216.840.1.500834.10...4.2" /> <id nullFlavor="NA" /> < code codeSystem="local" code="71271-4" displayName="Urine propoxyphene detection " /> <statusCode code="completed" /> <effectiveTime value= "922505444106" /> <value unit="" xsi:type="PQ" value="NEGATIVE" /> <referenceRange> <observationRange> <text>NEGATIVE </text> </observationRange> </referenceRange> </ observation> </component> </organizer> </entry> <entry> <organizer moodCode="EVN" classCode="BATTERY"> <templateId root= "216.840.1.882499.10..22.4.1" /> <id nullFlavor="NA" /> <code codeSystem="local" code="41479-2" displayName="Complete blood count (CBC) with automated white blood cell (WBC) differential" /> <statusCode code= "completed" /> <component> <observation moodCode="EVN" classCode= "OBS"> <templateId root="2.16.840.1.712287.10.20.22.4.2" /> < id nullFlavor="NA" /> <code codeSystem="local" code="6690-2" displayName="Blood leukocytes automated count (number/volume)" /> < statusCode code="completed" /> <effectiveTime value="662911050528" /> <value unit="10*3/uL" xsi:type="PQ" value="5.5" /> < referenceRange> <observationRange> <text>4.3-11.0</text > </observationRange> </referenceRange> </observation > </component> <component> <observation moodCode="EVN" classCode="OBS"> <templateId root="16.840.1.716121.10..22.4.2" /> <id nullFlavor="NA" /> <code codeSystem="local" code="789-8" displayName="Blood erythrocytes automated count (number/volume)" /> < statusCode code="completed" /> <effectiveTime value="002121717322" /> <value unit="10*6/uL" xsi:type="PQ" value="4.20" /> < interpretationCode codeSystem="local" code="" /> <referenceRange> <observationRange> <text>4.35-5.85</text> </ observationRange> </referenceRange> </observation> </ component> <component> <observation moodCode="EVN" classCode="OBS"> <templateId root="216.840.1.455977.02.28.22.4.2" /> <id nullFlavor="NA" /> <code codeSystem="local" code="26285-6" displayName= "Venous blood hemoglobin measurement (mass/volume)" /> <statusCode code ="completed" /> <effectiveTime value="990843840356" /> <value unit="g/dL" xsi:type="PQ" value="9.7" /> <interpretationCode codeSystem ="local" code="" /> <referenceRange> <observationRange> <text>11.5-16.0</text> </observationRange> </ referenceRange> </observation> </component> <component> <observation moodCode="EVN" classCode="OBS"> <templateId root= "216.840.1.449098.10.4.2" /> <id nullFlavor="NA" /> < code codeSystem="local" code="76069-3" displayName="Blood hematocrit (volume fraction)" /> <statusCode code="completed" /> <effectiveTime value="082813759203" /> <value unit="%" xsi:type="PQ" value="31" / > <interpretationCode codeSystem="local" code="" /> < referenceRange> <observationRange> <text>35-52</text> </observationRange> </referenceRange> </observation> </component> <component> <observation moodCode="EVN" classCode= "OBS"> <templateId root="16.840.1.513260.10...4.2" /> < id nullFlavor="NA" /> <code codeSystem="local" code="787-2" displayName ="Automated erythrocyte mean corpuscular volume" /> <statusCode code= "completed" /> <effectiveTime value="389555139926" /> <value unit="[foz_us]" xsi:type="PQ" value="74" /> <interpretationCode codeSystem="local" code="" /> <referenceRange> < observationRange> <text>80-99</text> </observationRange > </referenceRange> </observation> </component> < component> <observation moodCode="EVN" classCode="OBS"> < templateId root="2.16.840.1.412693.10..22.4.2" /> <id nullFlavor="NA " /> <code codeSystem="local" code="785-6" displayName="Automated erythrocyte mean corpuscular hemoglobin (mass per erythrocyte)" /> < statusCode code="completed" /> <effectiveTime value="038004628259" /> <value unit="pg" xsi:type="PQ" value="23" /> < interpretationCode codeSystem="local" code="" /> <referenceRange> <observationRange> <text>25-34</text> </ observationRange> </referenceRange> </observation> </ component> <component> <observation moodCode="EVN" classCode="OBS"> <templateId root="2.16.840.1.158561.10..22.4.2" /> <id nullFlavor="NA" /> <code codeSystem="local" code="786-4" displayName= "Automated erythrocyte mean corpuscular hemoglobin concentration measurement ( mass/volume)" /> <statusCode code="completed" /> < effectiveTime value="373185525202" /> <value unit="g/dL" xsi:type="PQ" value="31" /> <interpretationCode codeSystem="local" code="" /> <referenceRange> <observationRange> <text>32-36</ text> </observationRange> </referenceRange> </ observation> </component> <component> <observation moodCode= "EVN" classCode="OBS"> <templateId root="216.840.1.944761.10..22.4.2 " /> <id nullFlavor="NA" /> <code codeSystem="local" code="788 -0" displayName="Automated erythrocyte distribution width ratio" /> < statusCode code="completed" /> <effectiveTime value="080141368348" /> <value unit="%" xsi:type="PQ" value="21.6" /> < interpretationCode codeSystem="local" code="" /> <referenceRange> <observationRange> <text>10.0-14.5</text> </ observationRange> </referenceRange> </observation> </ component> <component> <observation moodCode="EVN" classCode="OBS"> <templateId root="216.840.1.745504...4.2" /> <id nullFlavor="NA" /> <code codeSystem="local" code="777-3" displayName= "Automated blood platelet count (count/volume)" /> <statusCode code= "completed" /> <effectiveTime value="774533736940" /> <value unit="10*3/uL" xsi:type="PQ" value="181" /> <referenceRange> <observationRange> <text>130-400</text> </ observationRange> </referenceRange> </observation> </ component> <component> <observation moodCode="EVN" classCode="OBS"> <templateId root="2.16.840.1.285800.10..22.4.2" /> <id nullFlavor="NA" /> <code codeSystem="local" code="92472-1" displayName= "Automated blood platelet mean volume measurement" /> <statusCode code= "completed" /> <effectiveTime value="993656341215" /> <value unit="[foz_us]" xsi:type="PQ" value="11.2" /> <interpretationCode codeSystem="local" code="" /> <referenceRange> < observationRange> <text>7.4-10.4</text> </ observationRange> </referenceRange> </observation> </ component> <component> <observation moodCode="EVN" classCode="OBS"> <templateId root="2.16.840.1.703249.10.22.4.2" /> <id nullFlavor="NA" /> <code codeSystem="local" code="770-8" displayName= "Automated blood neutrophils/100 leukocytes" /> <statusCode code= "completed" /> <effectiveTime value="631059490434" /> <value unit="%" xsi:type="PQ" value="51" /> <referenceRange> < observationRange> <text>42-75</text> </observationRange > </referenceRange> </observation> </component> < component> <observation moodCode="EVN" classCode="OBS"> < templateId root="216.840.1.564584.10..4.2" /> <id nullFlavor="NA " /> <code codeSystem="local" code="736-9" displayName="Automated blood lymphocytes/100 leukocytes" /> <statusCode code="completed" /> <effectiveTime value="128313561721" /> <value unit="%" xsi: type="PQ" value="31" /> <referenceRange> <observationRange> <text>12-44</text> </observationRange> </ referenceRange> </observation> </component> <component> <observation moodCode="EVN" classCode="OBS"> <templateId root= "2.16.840.1.088488.10.20.22.4.2" /> <id nullFlavor="NA" /> < code codeSystem="local" code="66151-2" displayName="Blood monocytes/100 leukocytes" /> <statusCode code="completed" /> <effectiveTime value="471861915915" /> <value unit="%" xsi:type="PQ" value="11" / > <referenceRange> <observationRange> <text>0- 12</text> </observationRange> </referenceRange> </ observation> </component> <component> <observation moodCode= "EVN" classCode="OBS"> <templateId root="2.16.840.1.060829.10..22.4.2 " /> <id nullFlavor="NA" /> <code codeSystem="local" code="713 -8" displayName="Automated blood eosinophils/100 leukocytes" /> < statusCode code="completed" /> <effectiveTime value="680079812498" /> <value unit="%" xsi:type="PQ" value="6" /> <referenceRange > <observationRange> <text>0-10</text> </ observationRange> </referenceRange> </observation> </ component> <component> <observation moodCode="EVN" classCode="OBS"> <templateId root="2.16.840.1.656707.10...4.2" /> <id nullFlavor="NA" /> <code codeSystem="local" code="706-2" displayName= "Automated blood basophils/100 leukocytes" /> <statusCode code= "completed" /> <effectiveTime value="706511314965" /> <value unit="%" xsi:type="PQ" value="1" /> <referenceRange> < observationRange> <text>0-10</text> </observationRange> </referenceRange> </observation> </component> < component> <observation moodCode="EVN" classCode="OBS"> < templateId root="2.16.840.1.845815.10.20.22.4.2" /> <id nullFlavor="NA " /> <code codeSystem="local" code="751-8" displayName="Blood neutrophils automated count (number/volume)" /> <statusCode code= "completed" /> <effectiveTime value="849671867319" /> <value unit="10*3" xsi:type="PQ" value="2.8" /> <referenceRange> < observationRange> <text>1.8-7.8</text> </ observationRange> </referenceRange> </observation> </ component> <component> <observation moodCode="EVN" classCode="OBS"> <templateId root="2.16.840.1.169068.10.22.4.2" /> <id nullFlavor="NA" /> <code codeSystem="local" code="731-0" displayName= "Blood lymphocytes automated count (number/volume)" /> <statusCode code ="completed" /> <effectiveTime value="426464530334" /> <value unit="10*3" xsi:type="PQ" value="1.7" /> <referenceRange> < observationRange> <text>1.0-4.0</text> </ observationRange> </referenceRange> </observation> </ component> <component> <observation moodCode="EVN" classCode="OBS"> <templateId root="2.16.840.1.882948.10..22.4.2" /> <id nullFlavor="NA" /> <code codeSystem="local" code="742-7" displayName= "Blood monocytes automated count (number/volume)" /> <statusCode code= "completed" /> <effectiveTime value="473131866254" /> <value unit="10*3" xsi:type="PQ" value="0.6" /> <referenceRange> < observationRange> <text>0.0-1.0</text> </ observationRange> </referenceRange> </observation> </ component> <component> <observation moodCode="EVN" classCode="OBS"> <templateId root="2.16.840.1.375769...22.4.2" /> <id nullFlavor="NA" /> <code codeSystem="local" code="711-2" displayName= "Automated eosinophil count" /> <statusCode code="completed" /> <effectiveTime value="453018285733" /> <value unit="10*3/uL" xsi: type="PQ" value="0.3" /> <referenceRange> <observationRange > <text>0.0-0.3</text> </observationRange> </ referenceRange> </observation> </component> <component> <observation moodCode="EVN" classCode="OBS"> <templateId root= "2.16.840.1.561410...4.2" /> <id nullFlavor="NA" /> < code codeSystem="local" code="704-7" displayName="Automated blood basophil count (count/volume)" /> <statusCode code="completed" /> < effectiveTime value="317799957600" /> <value unit="10*3/uL" xsi:type= "PQ" value="0.0" /> <referenceRange> <observationRange> <text>0.0-0.1</text> </observationRange> </ referenceRange> </observation> </component> </organizer> </entry > <entry> <organizer moodCode="EVN" classCode="BATTERY"> <templateId root="2.16.840.1.313669.02.28.22.4.1" /> <id nullFlavor="NA" /> <code codeSystem="local" code="2117-12" displayName="Serum or plasma choriogonadotropin ( test) detection" /> <statusCode code= "completed" /> <component> <observation moodCode="EVN" classCode= "OBS"> <templateId root="216.840.1.252803.10...4.2" /> < id nullFlavor="NA" /> <code codeSystem="local" code="2117-12" displayName="Serum or plasma choriogonadotropin ( test) detection" /> <statusCode code="completed" /> <effectiveTime value= "118231942620" /> <value unit="" xsi:type="PQ" value="NEGATIVE" /> <referenceRange> <observationRange> <text>NEGATIVE </text> </observationRange> </referenceRange> </ observation> </component> </organizer> </entry> <entry> <organizer moodCode="EVN" classCode="BATTERY"> <templateId root= "216.840.1.427473.10..4.1" /> <id nullFlavor="NA" /> <code codeSystem="local" code="48385-7" displayName="Comprehensive metabolic panel" / > <statusCode code="completed" /> <component> <observation moodCode="EVN" classCode="OBS"> <templateId root= "216.840.1.156352.10..22.4.2" /> <id nullFlavor="NA" /> < code codeSystem="local" code="2951-2" displayName="Serum or plasma sodium measurement (moles/volume)" /> <statusCode code="completed" /> <effectiveTime value="014812033812" /> <value unit="mmol/L" xsi:type= "PQ" value="139" /> <referenceRange> <observationRange> <text>135-145</text> </observationRange> </ referenceRange> </observation> </component> <component> <observation moodCode="EVN" classCode="OBS"> <templateId root= "2.16.840.1.255441.10.20.22.4.2" /> <id nullFlavor="NA" /> < code codeSystem="local" code="2823-3" displayName="Serum or plasma potassium measurement (moles/volume)" /> <statusCode code="completed" /> <effectiveTime value="522728432939" /> <value unit="mmol/L" xsi:type= "PQ" value="3.5" /> <interpretationCode codeSystem="local" code="" / > <referenceRange> <observationRange> <text>3.6 -5.0</text> </observationRange> </referenceRange> </ observation> </component> <component> <observation moodCode= "EVN" classCode="OBS"> <templateId root="16.840.1.640531.10..22.4.2 " /> <id nullFlavor="NA" /> <code codeSystem="local" code= "2075-0" displayName="Serum or plasma chloride measurement (moles/volume)" /> <statusCode code="completed" /> <effectiveTime value= "325634444316" /> <value unit="mmol/L" xsi:type="PQ" value="106" /> <referenceRange> <observationRange> <text>98-107< /text> </observationRange> </referenceRange> </ observation> </component> <component> <observation moodCode= "EVN" classCode="OBS"> <templateId root="2.16.840.1.608377.10.20.22.4.2 " /> <id nullFlavor="NA" /> <code codeSystem="local" code= "2028-01" displayName="Carbon dioxide" /> <statusCode code="completed" / > <effectiveTime value="392636194665" /> <value unit="mmol/L" xsi:type="PQ" value="23" /> <referenceRange> < observationRange> <text>21-32</text> </observationRange > </referenceRange> </observation> </component> < component> <observation moodCode="EVN" classCode="OBS"> < templateId root="2.16.840.1.163597.10.20.22.4.2" /> <id nullFlavor="NA " /> <code codeSystem="local" code="01435-9" displayName="Serum or plasma anion gap determination (moles/volume)" /> <statusCode code= "completed" /> <effectiveTime value="031286836479" /> <value unit="mmol/L" xsi:type="PQ" value="10" /> <referenceRange> < observationRange> <text>5-14</text> </observationRange> </referenceRange> </observation> </component> < component> <observation moodCode="EVN" classCode="OBS"> < templateId root="2.16.840.1.886116.10.20.22.4.2" /> <id nullFlavor="NA " /> <code codeSystem="local" code="3094-0" displayName="Serum or plasma urea nitrogen measurement (mass/volume)" /> <statusCode code= "completed" /> <effectiveTime value="254535280718" /> <value unit="mg/dL" xsi:type="PQ" value="18" /> <referenceRange> < observationRange> <text>7-18</text> </observationRange> </referenceRange> </observation> </component> < component> <observation moodCode="EVN" classCode="OBS"> < templateId root="2.16.840.1.786039.10.20.22.4.2" /> <id nullFlavor="NA " /> <code codeSystem="local" code="2160-0" displayName="Serum or plasma creatinine measurement (mass/volume)" /> <statusCode code= "completed" /> <effectiveTime value="725623752420" /> <value unit="mg/dL" xsi:type="PQ" value="0.75" /> <referenceRange> <observationRange> <text>0.60-1.30</text> </ observationRange> </referenceRange> </observation> </ component> <component> <observation moodCode="EVN" classCode="OBS"> <templateId root="2.16.840.1.899689.10..22.4.2" /> <id nullFlavor="NA" /> <code codeSystem="local" code="3097-3" displayName= "Serum or plasma urea nitrogen/creatinine mass ratio" /> <statusCode code="completed" /> <effectiveTime value="106664589256" /> < value unit="" xsi:type="PQ" value="24" /> <referenceRange> < observationRange> <text>NRG</text> </observationRange> </referenceRange> </observation> </component> < component> <observation moodCode="EVN" classCode="OBS"> < templateId root="2.16.840.1.985526.10.20.22.4.2" /> <id nullFlavor="NA " /> <code codeSystem="local" code="65181-8" displayName="Serum or plasma creatinine measurement with calculation of estimated glomerular filtration rate" /> <statusCode code="completed" /> < effectiveTime value="383322686535" /> <value unit="" xsi:type="PQ" value=">" /> <referenceRange> <observationRange> <text>NRG</text> </observationRange> </referenceRange > </observation> </component> <component> <observation moodCode="EVN" classCode="OBS"> <templateId root= "2.16.840.1.709890.10.20.22.4.2" /> <id nullFlavor="NA" /> < code codeSystem="local" code="2345-7" displayName="Serum or plasma glucose measurement (mass/volume)" /> <statusCode code="completed" /> <effectiveTime value="517891497439" /> <value unit="mg/dL" xsi:type="PQ " value="90" /> <referenceRange> <observationRange> <text>70-105</text> </observationRange> </ referenceRange> </observation> </component> <component> <observation moodCode="EVN" classCode="OBS"> <templateId root= "216.840.1.556944.10..22.4.2" /> <id nullFlavor="NA" /> < code codeSystem="local" code="10395-4" displayName="Serum or plasma calcium measurement (mass/volume)" /> <statusCode code="completed" /> <effectiveTime value="379871501101" /> <value unit="mg/dL" xsi:type="PQ " value="9.0" /> <referenceRange> <observationRange> <text>8.5-10.1</text> </observationRange> </ referenceRange> </observation> </component> <component> <observation moodCode="EVN" classCode="OBS"> <templateId root= "2.16.840.1.570270.10.20.22.4.2" /> <id nullFlavor="NA" /> < code codeSystem="local" code="1974-06" displayName="Serum or plasma total bilirubin measurement (mass/volume)" /> <statusCode code="completed" / > <effectiveTime value="476303069192" /> <value unit="mg/dL" xsi:type="PQ" value="0.3" /> <referenceRange> < observationRange> <text>0.1-1.0</text> </ observationRange> </referenceRange> </observation> </ component> <component> <observation moodCode="EVN" classCode="OBS"> <templateId root="2.16.840.1.652741.10.20.22.4.2" /> <id nullFlavor="NA" /> <code codeSystem="local" code="6768" displayName= "Serum or plasma alkaline phosphatase measurement (enzymatic activity/volume)" / > <statusCode code="completed" /> <effectiveTime value= "121622503782" /> <value unit="U/L" xsi:type="PQ" value="67" /> <referenceRange> <observationRange> <text>40-136</ text> </observationRange> </referenceRange> </ observation> </component> <component> <observation moodCode= "EVN" classCode="OBS"> <templateId root="2.16.840.1.331838.10.20.22.4.2 " /> <id nullFlavor="NA" /> <code codeSystem="local" code= "1919-12" displayName="Serum or plasma aspartate aminotransferase measurement ( enzymatic activity/volume)" /> <statusCode code="completed" /> <effectiveTime value="596675737756" /> <value unit="U/L" xsi:type="PQ " value="22" /> <referenceRange> <observationRange> <text>5-34</text> </observationRange> </referenceRange > </observation> </component> <component> <observation moodCode="EVN" classCode="OBS"> <templateId root= "2.16.840.1.267109.10..22.4.2" /> <id nullFlavor="NA" /> < code codeSystem="local" code="1742-6" displayName="Serum or plasma alanine aminotransferase measurement (enzymatic activity/volume)" /> < statusCode code="completed" /> <effectiveTime value="441596346692" /> <value unit="U/L" xsi:type="PQ" value="22" /> <referenceRange > <observationRange> <text>0-55</text> </ observationRange> </referenceRange> </observation> </ component> <component> <observation moodCode="EVN" classCode="OBS"> <templateId root="2.16.840.1.315737.10..22.4.2" /> <id nullFlavor="NA" /> <code codeSystem="local" code="2885-2" displayName= "Serum or plasma protein measurement (mass/volume)" /> <statusCode code ="completed" /> <effectiveTime value="224474567496" /> <value unit="g/dL" xsi:type="PQ" value="7.2" /> <referenceRange> < observationRange> <text>6.4-8.2</text> </ observationRange> </referenceRange> </observation> </ component> <component> <observation moodCode="EVN" classCode="OBS"> <templateId root="2.16.840.1.930780.10..22.4.2" /> <id nullFlavor="NA" /> <code codeSystem="local" code="1751-7" displayName= "Serum or plasma albumin measurement (mass/volume)" /> <statusCode code ="completed" /> <effectiveTime value="481574740024" /> <value unit="g/dL" xsi:type="PQ" value="4.2" /> <referenceRange> < observationRange> <text>3.2-4.5</text> </ observationRange> </referenceRange> </observation> </ component> </organizer> </entry> <entry> <organizer moodCode="EVN" classCode="BATTERY"> <templateId root="16.840.1.113737.10..22.4.1" /> <id nullFlavor="NA" /> <code codeSystem="local" code="3040-3" displayName="Lipase" /> <statusCode code="completed" /> <component> <observation moodCode="EVN" classCode="OBS"> <templateId root= "216.840.1.435042.10..22.4.2" /> <id nullFlavor="NA" /> < code codeSystem="local" code="3040-3" displayName="Lipase" /> < statusCode code="completed" /> <effectiveTime value="286250976289" /> <value unit="U/L" xsi:type="PQ" value="42" /> <referenceRange > <observationRange> <text>8-78</text> </ observationRange> </referenceRange> </observation> </ component> </organizer> </entry> <entry> <organizer moodCode="EVN" classCode="BATTERY"> <templateId root="216.840.1.206511.10..22.4.1" /> <id nullFlavor="NA" /> <code codeSystem="local" code="5643-2" displayName="Serum or plasma ethanol measurement (mass/volume)" /> < statusCode code="completed" /> <component> <observation moodCode= "EVN" classCode="OBS"> <templateId root="16.840.1.458981.10..22.4.2 " /> <id nullFlavor="NA" /> <code codeSystem="local" code= "5643-2" displayName="Serum or plasma ethanol measurement (mass/volume)" /> <statusCode code="completed" /> <effectiveTime value= "498326334998" /> <value unit="mg/dL" xsi:type="PQ" value="<" /> <referenceRange> <observationRange> <text><10< /text> </observationRange> </referenceRange> </ observation> </component> </organizer> </entry> <entry> <organizer moodCode="EVN" classCode="BATTERY"> <templateId root= "216.840.1.939918.10..22.4.1" /> <id nullFlavor="NA" /> <code codeSystem="local" code="ORD3" displayName="Comprehensive Metabolic Panel" /> <statusCode code="completed" /> <component> <observation moodCode="EVN" classCode="OBS"> <templateId root= "16.840.1.743676.10..22.4.2" /> <id nullFlavor="NA" /> < code codeSystem="local" code="Res44" displayName="Albumin" /> < statusCode code="completed" /> <effectiveTime value="154067858782" /> <value unit="g/dL" xsi:type="PQ" value="3.7" /> < referenceRange> <observationRange> <text>3.6-5.1</text> </observationRange> </referenceRange> </observation > </component> <component> <observation moodCode="EVN" classCode="OBS"> <templateId root="06.27.840.1.458853.20.22.4.2" /> <id nullFlavor="NA" /> <code codeSystem="local" code="Res45" displayName="ALP" /> <statusCode code="completed" /> < effectiveTime value="110006639079" /> <value unit="U/L" xsi:type="PQ" value="60" /> <referenceRange> <observationRange> <text>35-130</text> </observationRange> </referenceRange > </observation> </component> <component> <observation moodCode="EVN" classCode="OBS"> <templateId root= "2.16.840.1.025411.10..22.4.2" /> <id nullFlavor="NA" /> < code codeSystem="local" code="Res46" displayName="ALT" /> <statusCode code="completed" /> <effectiveTime value="" /> < value unit="U/L" xsi:type="PQ" value="11" /> <referenceRange> <observationRange> <text>6-45</text> </ observationRange> </referenceRange> </observation> </ component> <component> <observation moodCode="EVN" classCode="OBS"> <templateId root="2.16.840.1.638313.10..22.4.2" /> <id nullFlavor="NA" /> <code codeSystem="local" code="Res61" displayName= "Anion Gap" /> <statusCode code="completed" /> <effectiveTime value="531779371143" /> <value unit="" xsi:type="PQ" value="15" /> <interpretationCode codeSystem="local" code="H" /> < referenceRange> <observationRange> <text>6-14</text> </observationRange> </referenceRange> </observation> </component> <component> <observation moodCode="EVN" classCode= "OBS"> <templateId root="16.840.1.516958.10.2022.4.2" /> < id nullFlavor="NA" /> <code codeSystem="local" code="Res48" displayName ="AST" /> <statusCode code="completed" /> <effectiveTime value ="212950583647" /> <value unit="U/L" xsi:type="PQ" value="15" /> <referenceRange> <observationRange> <text>2-40</text > </observationRange> </referenceRange> </observation > </component> <component> <observation moodCode="EVN" classCode="OBS"> <templateId root="16.840.1.002821.10.22.4.2" /> <id nullFlavor="NA" /> <code codeSystem="local" code="Res26" displayName="BUN" /> <statusCode code="completed" /> < effectiveTime value="400922692510" /> <value unit="mg/dL" xsi:type="PQ " value="22" /> <referenceRange> <observationRange> <text>5-25</text> </observationRange> </referenceRange > </observation> </component> <component> <observation moodCode="EVN" classCode="OBS"> <templateId root= "06.27.840.1.066029.10.2022.4.2" /> <id nullFlavor="NA" /> < code codeSystem="local" code="Res5" displayName="Calcium" /> < statusCode code="completed" /> <effectiveTime value="260900312542" /> <value unit="mg/dL" xsi:type="PQ" value="8.8" /> < referenceRange> <observationRange> <text>8.3-10.4</text > </observationRange> </referenceRange> </observation > </component> <component> <observation moodCode="EVN" classCode="OBS"> <templateId root="216.840.1.506910.10..4.2" /> <id nullFlavor="NA" /> <code codeSystem="local" code="Res21" displayName="Chloride" /> <statusCode code="completed" /> < effectiveTime value="138198005216" /> <value unit="mmol/L" xsi:type="PQ " value="109" /> <referenceRange> <observationRange> <text>95-114</text> </observationRange> </ referenceRange> </observation> </component> <component> <observation moodCode="EVN" classCode="OBS"> <templateId root= "216.840.1.457382.10.4.2" /> <id nullFlavor="NA" /> < code codeSystem="local" code="Res49" displayName="CO2" /> <statusCode code="completed" /> <effectiveTime value="392825691072" /> < value unit="mEq/L" xsi:type="PQ" value="20" /> <interpretationCode codeSystem="local" code="L" /> <referenceRange> < observationRange> <text>22-33</text> </observationRange > </referenceRange> </observation> </component> < component> <observation moodCode="EVN" classCode="OBS"> < templateId root="216.840.1.304956.10..22.4.2" /> <id nullFlavor="NA " /> <code codeSystem="local" code="Pwy527" displayName="Creat" /> <statusCode code="completed" /> <effectiveTime value= "367811437227" /> <value unit="mg/dL" xsi:type="PQ" value="0.74" /> <referenceRange> <observationRange> <text>0.50- 1.50</text> </observationRange> </referenceRange> </ observation> </component> <component> <observation moodCode= "EVN" classCode="OBS"> <templateId root="216.840.1.695549.10..4.2 " /> <id nullFlavor="NA" /> <code codeSystem="local" code= "Rji799" displayName="eGFR" /> <statusCode code="completed" /> <effectiveTime value="165652864864" /> <value unit="mL/min/1.73m2" xsi:type="PQ" value="90" /> <referenceRange> < observationRange> <text>>59</text> </observationRange > </referenceRange> </observation> </component> < component> <observation moodCode="EVN" classCode="OBS"> < templateId root="216.840.1.067470.02.28.22.4.2" /> <id nullFlavor="NA " /> <code codeSystem="local" code="Res7" displayName="Globulin" /> <statusCode code="completed" /> <effectiveTime value= "203535667559" /> <value unit="g/dL" xsi:type="PQ" value="2.1" /> <interpretationCode codeSystem="local" code="L" /> <referenceRange > <observationRange> <text>2.3-3.5</text> </ observationRange> </referenceRange> </observation> </ component> <component> <observation moodCode="EVN" classCode="OBS"> <templateId root="216.840.1.625761...4.2" /> <id nullFlavor="NA" /> <code codeSystem="local" code="Res60" displayName= "Glucose" /> <statusCode code="completed" /> <effectiveTime value="272475166440" /> <value unit="mg/dL" xsi:type="PQ" value="101" / > <referenceRange> <observationRange> <text>70- 110</text> </observationRange> </referenceRange> </ observation> </component> <component> <observation moodCode= "EVN" classCode="OBS"> <templateId root="2.16.840.1.013564.10..22.4.2 " /> <id nullFlavor="NA" /> <code codeSystem="local" code= "Res52" displayName="Osmo" /> <statusCode code="completed" /> <effectiveTime value="" /> <value unit="" xsi:type="PQ" value="294" /> <referenceRange> <observationRange> <text>280-295</text> </observationRange> </ referenceRange> </observation> </component> <component> <observation moodCode="EVN" classCode="OBS"> <templateId root= "2.16.840.1.710761.10.20.22.4.2" /> <id nullFlavor="NA" /> < code codeSystem="local" code="Res20" displayName="Potassium" /> < statusCode code="completed" /> <effectiveTime value="253917558565" /> <value unit="mmol/L" xsi:type="PQ" value="3.4" /> < interpretationCode codeSystem="local" code="L" /> <referenceRange> <observationRange> <text>3.5-5.3</text> </ observationRange> </referenceRange> </observation> </ component> <component> <observation moodCode="EVN" classCode="OBS"> <templateId root="16.840.1.040476.10.20.22.4.2" /> <id nullFlavor="NA" /> <code codeSystem="local" code="Res19" displayName= "Sodium" /> <statusCode code="completed" /> <effectiveTime value="237729083519" /> <value unit="mmol/L" xsi:type="PQ" value="141" /> <referenceRange> <observationRange> <text> 134-148</text> </observationRange> </referenceRange> </observation> </component> <component> <observation moodCode= "EVN" classCode="OBS"> <templateId root="06.27.840.1.240788.10.22.4.2 " /> <id nullFlavor="NA" /> <code codeSystem="local" code= "Res51" displayName="TBil" /> <statusCode code="completed" /> <effectiveTime value="283827144102" /> <value unit="mg/dL" xsi:type="PQ " value="< 0.2" /> <referenceRange> <observationRange> <text /> </observationRange> </referenceRange> </observation> </component> <component> <observation moodCode="EVN" classCode="OBS"> <templateId root= "06.27.840.1.893036.10.20.22.4.2" /> <id nullFlavor="NA" /> < code codeSystem="local" code="Res24" displayName="TP" /> <statusCode code="completed" /> <effectiveTime value="215324632132" /> < value unit="g/dL" xsi:type="PQ" value="5.8" /> <interpretationCode codeSystem="local" code="L" /> <referenceRange> < observationRange> <text>6.0-8.3</text> </ observationRange> </referenceRange> </observation> </ component> </organizer> </entry> <entry> <organizer moodCode="EVN" classCode="BATTERY"> <templateId root="06.27.840.1.924145.10..22.4.1" /> <id nullFlavor="NA" /> <code codeSystem="local" code="SXU556" displayName="Folate" /> <statusCode code="completed" /> <component> <observation moodCode="EVN" classCode="OBS"> <templateId root= "840.1.596618.02.28.22.4.2" /> <id nullFlavor="NA" /> < code codeSystem="local" code="Mdi339" displayName="Folate" /> < statusCode code="completed" /> <effectiveTime value="959925483555" /> <value unit="ng/mL" xsi:type="PQ" value="9.20" /> < referenceRange> <observationRange> <text>7.00-31.40</ text> </observationRange> </referenceRange> </ observation> </component> </organizer> </entry> <entry> <organizer moodCode="EVN" classCode="BATTERY"> <templateId root= "840.1.466526.22.4.1" /> <id nullFlavor="NA" /> <code codeSystem="local" code="VFB426" displayName="XM 2) LRPC" /> <statusCode code="completed" /> <component> <observation moodCode="EVN" classCode="OBS"> <templateId root="06.27.840.1.008444.10...4.2" /> <id nullFlavor="NA" /> <code codeSystem="local" code="Kif203" displayName="CROSSMATCH" /> <statusCode code="completed" /> < effectiveTime value="836484174757" /> <value unit="" xsi:type="PQ" value="COMPATIBLE X 2" /> <referenceRange> <observationRange > <text /> </observationRange> </referenceRange > </observation> </component> <component> <observation moodCode="EVN" classCode="OBS"> <templateId root= "216.840.1.694559.10.20.22.4.2" /> <id nullFlavor="NA" /> < code codeSystem="local" code="Res87" displayName="Hct" /> <statusCode code="completed" /> <effectiveTime value="" /> < value unit="%" xsi:type="PQ" value="25.8" /> <interpretationCode codeSystem="local" code="L" /> <referenceRange> < observationRange> <text>36.0-46.0</text> </ observationRange> </referenceRange> </observation> </ component> <component> <observation moodCode="EVN" classCode="OBS"> <templateId root="216.840.1.561425.10.20.22.4.2" /> <id nullFlavor="NA" /> <code codeSystem="local" code="Nio569" displayName= "Hgb" /> <statusCode code="completed" /> <effectiveTime value= "472543244951" /> <value unit="g/dL" xsi:type="PQ" value="7.9" /> <interpretationCode codeSystem="local" code="L" /> <referenceRange > <observationRange> <text>13.0-15.0</text> < /observationRange> </referenceRange> </observation> </ component> </organizer> </entry> <entry> <organizer moodCode="EVN" classCode="BATTERY"> <templateId root="16.840.1.363035.10..4.1" /> <id nullFlavor="NA" /> <code codeSystem="local" code="ORD80" displayName=" Test-Serum" /> <statusCode code="completed" /> <component> <observation moodCode="EVN" classCode="OBS"> < templateId root="06.27.840.1.379927.02.28.22.4.2" /> <id nullFlavor="NA " /> <code codeSystem="local" code="Res82" displayName="Preg Test-S" / > <statusCode code="completed" /> <effectiveTime value= "048969554153" /> <value unit="" xsi:type="PQ" value="Negative" /> <referenceRange> <observationRange> <text>Negative </text> </observationRange> </referenceRange> </ observation> </component> </organizer> </entry> <entry> <organizer moodCode="EVN" classCode="BATTERY"> <templateId root= "06.27.840.1.387501.02.28.22.4.1" /> <id nullFlavor="NA" /> <code codeSystem="local" code="VSA6244" displayName="Leukoreduced Packed RBC Unit Checkout" /> <statusCode code="completed" /> <component> < observation moodCode="EVN" classCode="OBS"> <templateId root= "16.840.1.802381.02.28.22.4.2" /> <id nullFlavor="NA" /> < code codeSystem="local" code="Nmg149" displayName="LRPRBC Checkout" /> <statusCode code="completed" /> <effectiveTime value="502579193962" /> <value unit="" xsi:type="PQ" value="Checked Out." /> < referenceRange> <observationRange> <text /> < /observationRange> </referenceRange> </observation> </ component> </organizer> </entry> <entry> <organizer moodCode="EVN" classCode="BATTERY"> <templateId root="216.840.1.490644.10..4.1" /> <id nullFlavor="NA" /> <code codeSystem="local" code="XND0836" displayName="Leukoreduced Packed RBC Unit Checkout" /> <statusCode code= "completed" /> <component> <observation moodCode="EVN" classCode= "OBS"> <templateId root="216.840.1.182282.10..4.2" /> < id nullFlavor="NA" /> <code codeSystem="local" code="Gup798" displayName="LRPRBC Checkout" /> <statusCode code="completed" /> <effectiveTime value="605934626305" /> <value unit="" xsi:type="PQ " value="Checked Out." /> <referenceRange> <observationRange > <text /> </observationRange> </referenceRange > </observation> </component> </organizer> </entry> <entry> <organizer moodCode="EVN" classCode="BATTERY"> <templateId root= "216.840.1.010883.10..22.4.1" /> <id nullFlavor="NA" /> <code codeSystem="local" code="ORD4" displayName="BMP" /> <statusCode code= "completed" /> <component> <observation moodCode="EVN" classCode= "OBS"> <templateId root="06.27.840.1.330153.10.22.4.2" /> < id nullFlavor="NA" /> <code codeSystem="local" code="Res61" displayName ="Anion Gap" /> <statusCode code="completed" /> < effectiveTime value="" /> <value unit="" xsi:type="PQ" value="15" /> <interpretationCode codeSystem="local" code="H" /> <referenceRange> <observationRange> <text>6-14</text > </observationRange> </referenceRange> </observation > </component> <component> <observation moodCode="EVN" classCode="OBS"> <templateId root="216.840.1.526925.10.4.2" /> <id nullFlavor="NA" /> <code codeSystem="local" code="Res26" displayName="BUN" /> <statusCode code="completed" /> < effectiveTime value="" /> <value unit="mg/dL" xsi:type="PQ " value="18" /> <referenceRange> <observationRange> <text>5-25</text> </observationRange> </referenceRange > </observation> </component> <component> <observation moodCode="EVN" classCode="OBS"> <templateId root= "16.840.1.565076.10.22.4.2" /> <id nullFlavor="NA" /> < code codeSystem="local" code="Res5" displayName="Calcium" /> < statusCode code="completed" /> <effectiveTime value="[id number]" /> <value unit="mg/dL" xsi:type="PQ" value="8.8" /> < referenceRange> <observationRange> <text>8.3-10.4</text > </observationRange> </referenceRange> </observation > </component> <component> <observation moodCode="EVN" classCode="OBS"> <templateId root="216.840.1.417005.10.22.4.2" /> <id nullFlavor="NA" /> <code codeSystem="local" code="Res21" displayName="Chloride" /> <statusCode code="completed" /> < effectiveTime value="" /> <value unit="mmol/L" xsi:type="PQ " value="110" /> <referenceRange> <observationRange> <text>95-114</text> </observationRange> </ referenceRange> </observation> </component> <component> <observation moodCode="EVN" classCode="OBS"> <templateId root= "216.840.1.323630.02.28.22.4.2" /> <id nullFlavor="NA" /> < code codeSystem="local" code="Res49" displayName="CO2" /> <statusCode code="completed" /> <effectiveTime value="" /> < value unit="mEq/L" xsi:type="PQ" value="22" /> <referenceRange> <observationRange> <text>22-33</text> </ observationRange> </referenceRange> </observation> </ component> <component> <observation moodCode="EVN" classCode="OBS"> <templateId root="16.840.1.485344.10.22.4.2" /> <id nullFlavor="NA" /> <code codeSystem="local" code="Fhs229" displayName= "Creat" /> <statusCode code="completed" /> <effectiveTime value="" /> <value unit="mg/dL" xsi:type="PQ" value="0.74" /> <referenceRange> <observationRange> <text> 0.50-1.50</text> </observationRange> </referenceRange> </observation> </component> <component> <observation moodCode="EVN" classCode="OBS"> <templateId root= "2.16.840.1.616564.10.20.4.2" /> <id nullFlavor="NA" /> < code codeSystem="local" code="Kuw178" displayName="eGFR" /> < statusCode code="completed" /> <effectiveTime value="" /> <value unit="mL/min/1.73m2" xsi:type="PQ" value="90" /> < referenceRange> <observationRange> <text>>59</text> </observationRange> </referenceRange> </observation> </component> <component> <observation moodCode="EVN" classCode ="OBS"> <templateId root="16.840.1.678276.10..4.2" /> < id nullFlavor="NA" /> <code codeSystem="local" code="Res60" displayName ="Glucose" /> <statusCode code="completed" /> <effectiveTime value="" /> <value unit="mg/dL" xsi:type="PQ" value="70" / > <referenceRange> <observationRange> <text>70- 110</text> </observationRange> </referenceRange> </ observation> </component> <component> <observation moodCode= "EVN" classCode="OBS"> <templateId root="16.840.1.402288.10.2022.4.2 " /> <id nullFlavor="NA" /> <code codeSystem="local" code= "Res52" displayName="Osmo" /> <statusCode code="completed" /> <effectiveTime value="" /> <value unit="" xsi:type="PQ" value="296" /> <interpretationCode codeSystem="local" code="H" /> <referenceRange> <observationRange> <text>280-295</ text> </observationRange> </referenceRange> </ observation> </component> <component> <observation moodCode= "EVN" classCode="OBS"> <templateId root="216.840.1.085423.10..4.2 " /> <id nullFlavor="NA" /> <code codeSystem="local" code= "Res20" displayName="Potassium" /> <statusCode code="completed" /> <effectiveTime value="034568603357" /> <value unit="mmol/L" xsi: type="PQ" value="3.6" /> <referenceRange> <observationRange > <text>3.5-5.3</text> </observationRange> </ referenceRange> </observation> </component> <component> <observation moodCode="EVN" classCode="OBS"> <templateId root= "16.840.1.669113.02.28.22.4.2" /> <id nullFlavor="NA" /> < code codeSystem="local" code="Res19" displayName="Sodium" /> < statusCode code="completed" /> <effectiveTime value="" /> <value unit="mmol/L" xsi:type="PQ" value="143" /> < referenceRange> <observationRange> <text>134-148</text> </observationRange> </referenceRange> </observation > </component> </organizer> </entry> <entry> <organizer moodCode= "EVN" classCode="BATTERY"> <templateId root="216.840.1.689231...4.1 " /> <id nullFlavor="NA" /> <code codeSystem="local" code="54858-3" displayName="Complete blood count (CBC) with automated white blood cell (WBC) differential" /> <statusCode code="completed" /> <component> < observation moodCode="EVN" classCode="OBS"> <templateId root= "2.16.840.1.173619.10..22.4.2" /> <id nullFlavor="NA" /> < code codeSystem="local" code="6690-2" displayName="Blood leukocytes automated count (number/volume)" /> <statusCode code="completed" /> < effectiveTime value="295844162278" /> <value unit="10*3/uL" xsi:type= "PQ" value="10.1" /> <referenceRange> <observationRange> <text>4.3-11.0</text> </observationRange> </ referenceRange> </observation> </component> <component> <observation moodCode="EVN" classCode="OBS"> <templateId root= "2.16.840.1.675257.10..22.4.2" /> <id nullFlavor="NA" /> < code codeSystem="local" code="789-8" displayName="Blood erythrocytes automated count (number/volume)" /> <statusCode code="completed" /> < effectiveTime value="483287346626" /> <value unit="10*6/uL" xsi:type= "PQ" value="3.96" /> <interpretationCode codeSystem="local" code="" / > <referenceRange> <observationRange> <text> 4.35-5.85</text> </observationRange> </referenceRange> </observation> </component> <component> <observation moodCode="EVN" classCode="OBS"> <templateId root= "2.16.840.1.908778.10..22.4.2" /> <id nullFlavor="NA" /> < code codeSystem="local" code="31038-5" displayName="Venous blood hemoglobin measurement (mass/volume)" /> <statusCode code="completed" /> <effectiveTime value="178284753017" /> <value unit="g/dL" xsi:type="PQ " value="10.6" /> <interpretationCode codeSystem="local" code="" /> <referenceRange> <observationRange> <text>11.5- 16.0</text> </observationRange> </referenceRange> </ observation> </component> <component> <observation moodCode= "EVN" classCode="OBS"> <templateId root="16.840.1.088406.10..22.4.2 " /> <id nullFlavor="NA" /> <code codeSystem="local" code= "62951-0" displayName="Blood hematocrit (volume fraction)" /> < statusCode code="completed" /> <effectiveTime value="" /> <value unit="%" xsi:type="PQ" value="32" /> < interpretationCode codeSystem="local" code="" /> <referenceRange> <observationRange> <text>35-52</text> </ observationRange> </referenceRange> </observation> </ component> <component> <observation moodCode="EVN" classCode="OBS"> <templateId root="216.840.1.972900.10..22.4.2" /> <id nullFlavor="NA" /> <code codeSystem="local" code="787-2" displayName= "Automated erythrocyte mean corpuscular volume" /> <statusCode code= "completed" /> <effectiveTime value="" /> <value unit="[foz_us]" xsi:type="PQ" value="80" /> <referenceRange> <observationRange> <text>80-99</text> </ observationRange> </referenceRange> </observation> </ component> <component> <observation moodCode="EVN" classCode="OBS"> <templateId root="2.16.840.1.742980.10.20.22.4.2" /> <id nullFlavor="NA" /> <code codeSystem="local" code="785-6" displayName= "Automated erythrocyte mean corpuscular hemoglobin (mass per erythrocyte)" /> <statusCode code="completed" /> <effectiveTime value= "152401745374" /> <value unit="pg" xsi:type="PQ" value="27" /> <referenceRange> <observationRange> <text>25-34</text > </observationRange> </referenceRange> </observation > </component> <component> <observation moodCode="EVN" classCode="OBS"> <templateId root="216.840.1.400073.10..22.4.2" /> <id nullFlavor="NA" /> <code codeSystem="local" code="786-4" displayName="Automated erythrocyte mean corpuscular hemoglobin concentration measurement (mass/volume)" /> <statusCode code="completed" /> <effectiveTime value="179778221495" /> <value unit="g/dL" xsi:type="PQ " value="33" /> <referenceRange> <observationRange> <text>32-36</text> </observationRange> </ referenceRange> </observation> </component> <component> <observation moodCode="EVN" classCode="OBS"> <templateId root= "2.16.840.1.043783.10.20.22.4.2" /> <id nullFlavor="NA" /> < code codeSystem="local" code="788-0" displayName="Automated erythrocyte distribution width ratio" /> <statusCode code="completed" /> < effectiveTime value="" /> <value unit="%" xsi:type="PQ " value="22.0" /> <interpretationCode codeSystem="local" code="" /> <referenceRange> <observationRange> <text>10.0- 14.5</text> </observationRange> </referenceRange> </ observation> </component> <component> <observation moodCode= "EVN" classCode="OBS"> <templateId root="2.16.840.1.039640...4.2 " /> <id nullFlavor="NA" /> <code codeSystem="local" code="777 -3" displayName="Automated blood platelet count (count/volume)" /> < statusCode code="completed" /> <effectiveTime value="" /> <value unit="10*3/uL" xsi:type="PQ" value="313" /> < referenceRange> <observationRange> <text>130-400</text> </observationRange> </referenceRange> </observation > </component> <component> <observation moodCode="EVN" classCode="OBS"> <templateId root="2.16.840.1.189107.02.28.22.4.2" /> <id nullFlavor="NA" /> <code codeSystem="local" code="35809-2 " displayName="Automated blood platelet mean volume measurement" /> < statusCode code="completed" /> <effectiveTime value="" /> <value unit="[foz_us]" xsi:type="PQ" value="10.7" /> < interpretationCode codeSystem="local" code="" /> <referenceRange> <observationRange> <text>7.4-10.4</text> </ observationRange> </referenceRange> </observation> </ component> <component> <observation moodCode="EVN" classCode="OBS"> <templateId root="2.16.840.1.861961.10.20.22.4.2" /> <id nullFlavor="NA" /> <code codeSystem="local" code="770-8" displayName= "Automated blood neutrophils/100 leukocytes" /> <statusCode code= "completed" /> <effectiveTime value="469323620985" /> <value unit="%" xsi:type="PQ" value="76" /> <interpretationCode codeSystem ="local" code="" /> <referenceRange> <observationRange> <text>42-75</text> </observationRange> </ referenceRange> </observation> </component> <component> <observation moodCode="EVN" classCode="OBS"> <templateId root= "216.840.1.481842.10..4.2" /> <id nullFlavor="NA" /> < code codeSystem="local" code="736-9" displayName="Automated blood lymphocytes/ 100 leukocytes" /> <statusCode code="completed" /> < effectiveTime value="119490915898" /> <value unit="%" xsi:type="PQ " value="16" /> <referenceRange> <observationRange> <text>12-44</text> </observationRange> </ referenceRange> </observation> </component> <component> <observation moodCode="EVN" classCode="OBS"> <templateId root= "2.16.840.1.170845.10.20.22.4.2" /> <id nullFlavor="NA" /> < code codeSystem="local" code="54245-3" displayName="Blood monocytes/100 leukocytes" /> <statusCode code="completed" /> <effectiveTime value="044459123514" /> <value unit="%" xsi:type="PQ" value="6" /> <referenceRange> <observationRange> <text>0-12 </text> </observationRange> </referenceRange> </ observation> </component> <component> <observation moodCode= "EVN" classCode="OBS"> <templateId root="2.16.840.1.197500.10.20.22.4.2 " /> <id nullFlavor="NA" /> <code codeSystem="local" code="713 -8" displayName="Automated blood eosinophils/100 leukocytes" /> < statusCode code="completed" /> <effectiveTime value="090337061072" /> <value unit="%" xsi:type="PQ" value="1" /> <referenceRange > <observationRange> <text>0-10</text> </ observationRange> </referenceRange> </observation> </ component> <component> <observation moodCode="EVN" classCode="OBS"> <templateId root="2.16.840.1.680063.10..22.4.2" /> <id nullFlavor="NA" /> <code codeSystem="local" code="706-2" displayName= "Automated blood basophils/100 leukocytes" /> <statusCode code= "completed" /> <effectiveTime value="944406505597" /> <value unit="%" xsi:type="PQ" value="0" /> <referenceRange> < observationRange> <text>0-10</text> </observationRange> </referenceRange> </observation> </component> < component> <observation moodCode="EVN" classCode="OBS"> < templateId root="840.1.719626.10.20.22.4.2" /> <id nullFlavor="NA " /> <code codeSystem="local" code="751-8" displayName="Blood neutrophils automated count (number/volume)" /> <statusCode code= "completed" /> <effectiveTime value="" /> <value unit="10*3" xsi:type="PQ" value="7.7" /> <referenceRange> < observationRange> <text>1.8-7.8</text> </ observationRange> </referenceRange> </observation> </ component> <component> <observation moodCode="EVN" classCode="OBS"> <templateId root="216.840.1.839248.10.20.22.4.2" /> <id nullFlavor="NA" /> <code codeSystem="local" code="731-0" displayName= "Blood lymphocytes automated count (number/volume)" /> <statusCode code ="completed" /> <effectiveTime value="" /> <value unit="10*3" xsi:type="PQ" value="1.6" /> <referenceRange> < observationRange> <text>1.0-4.0</text> </ observationRange> </referenceRange> </observation> </ component> <component> <observation moodCode="EVN" classCode="OBS"> <templateId root="216.840.1.628575.10.20.22.4.2" /> <id nullFlavor="NA" /> <code codeSystem="local" code="742-7" displayName= "Blood monocytes automated count (number/volume)" /> <statusCode code= "completed" /> <effectiveTime value="" /> <value unit="10*3" xsi:type="PQ" value="0.6" /> <referenceRange> < observationRange> <text>0.0-1.0</text> </ observationRange> </referenceRange> </observation> </ component> <component> <observation moodCode="EVN" classCode="OBS"> <templateId root="216.840.1.414026.10.20.22.4.2" /> <id nullFlavor="NA" /> <code codeSystem="local" code="711-2" displayName= "Automated eosinophil count" /> <statusCode code="completed" /> <effectiveTime value="" /> <value unit="10*3/uL" xsi: type="PQ" value="0.1" /> <referenceRange> <observationRange > <text>0.0-0.3</text> </observationRange> </ referenceRange> </observation> </component> <component> <observation moodCode="EVN" classCode="OBS"> <templateId root= "16.840.1.368649.10...4.2" /> <id nullFlavor="NA" /> < code codeSystem="local" code="704-7" displayName="Automated blood basophil count (count/volume)" /> <statusCode code="completed" /> < effectiveTime value="" /> <value unit="10*3/uL" xsi:type= "PQ" value="0.0" /> <referenceRange> <observationRange> <text>0.0-0.1</text> </observationRange> </ referenceRange> </observation> </component> </organizer> </entry > <entry> <organizer moodCode="EVN" classCode="BATTERY"> <templateId root="216.840.1.305634.10..22.4.1" /> <id nullFlavor="NA" /> <code codeSystem="local" code="12539-0" displayName="Whole blood basic metabolic panel " /> <statusCode code="completed" /> <component> <observation moodCode="EVN" classCode="OBS"> <templateId root= "216.840.1.066024.10.20.22.4.2" /> <id nullFlavor="NA" /> < code codeSystem="local" code="2951-2" displayName="Serum or plasma sodium measurement (moles/volume)" /> <statusCode code="completed" /> <effectiveTime value="594688190322" /> <value unit="mmol/L" xsi:type= "PQ" value="140" /> <referenceRange> <observationRange> <text>135-145</text> </observationRange> </ referenceRange> </observation> </component> <component> <observation moodCode="EVN" classCode="OBS"> <templateId root= "16.840.1.045403.10.20.22.4.2" /> <id nullFlavor="NA" /> < code codeSystem="local" code="2823-3" displayName="Serum or plasma potassium measurement (moles/volume)" /> <statusCode code="completed" /> <effectiveTime value="408890786915" /> <value unit="mmol/L" xsi:type= "PQ" value="3.8" /> <referenceRange> <observationRange> <text>3.6-5.0</text> </observationRange> </ referenceRange> </observation> </component> <component> <observation moodCode="EVN" classCode="OBS"> <templateId root= "16.840.1.597484.10.20.22.4.2" /> <id nullFlavor="NA" /> < code codeSystem="local" code="2075-0" displayName="Serum or plasma chloride measurement (moles/volume)" /> <statusCode code="completed" /> <effectiveTime value="958912428677" /> <value unit="mmol/L" xsi:type= "PQ" value="107" /> <referenceRange> <observationRange> <text>98-107</text> </observationRange> </ referenceRange> </observation> </component> <component> <observation moodCode="EVN" classCode="OBS"> <templateId root= "2.16.840.1.245530.10.20.22.4.2" /> <id nullFlavor="NA" /> < code codeSystem="local" code="2028-01" displayName="Carbon dioxide" /> < statusCode code="completed" /> <effectiveTime value="127224916850" /> <value unit="mmol/L" xsi:type="PQ" value="25" /> < referenceRange> <observationRange> <text>21-32</text> </observationRange> </referenceRange> </observation> </component> <component> <observation moodCode="EVN" classCode= "OBS"> <templateId root="16.840.1.609623.10.20.22.4.2" /> < id nullFlavor="NA" /> <code codeSystem="local" code="46932-2" displayName="Serum or plasma anion gap determination (moles/volume)" /> <statusCode code="completed" /> <effectiveTime value="342605159962" / > <value unit="mmol/L" xsi:type="PQ" value="8" /> < referenceRange> <observationRange> <text>5-14</text> </observationRange> </referenceRange> </observation> </component> <component> <observation moodCode="EVN" classCode= "OBS"> <templateId root="840.1.216233.10.20.22.4.2" /> < id nullFlavor="NA" /> <code codeSystem="local" code="3094-0" displayName="Serum or plasma urea nitrogen measurement (mass/volume)" /> <statusCode code="completed" /> <effectiveTime value="191074083379" /> <value unit="mg/dL" xsi:type="PQ" value="15" /> < referenceRange> <observationRange> <text>7-18</text> </observationRange> </referenceRange> </observation> </component> <component> <observation moodCode="EVN" classCode= "OBS"> <templateId root="216.840.1.139786.10..22.4.2" /> < id nullFlavor="NA" /> <code codeSystem="local" code="2160-0" displayName="Serum or plasma creatinine measurement (mass/volume)" /> < statusCode code="completed" /> <effectiveTime value="637618564175" /> <value unit="mg/dL" xsi:type="PQ" value="0.72" /> < referenceRange> <observationRange> <text>0.60-1.30</text > </observationRange> </referenceRange> </observation > </component> <component> <observation moodCode="EVN" classCode="OBS"> <templateId root="216.840.1.244341.10..22.4.2" /> <id nullFlavor="NA" /> <code codeSystem="local" code="3097-3" displayName="Serum or plasma urea nitrogen/creatinine mass ratio" /> < statusCode code="completed" /> <effectiveTime value="310611441795" /> <value unit="" xsi:type="PQ" value="21" /> <referenceRange> <observationRange> <text>NRG</text> </ observationRange> </referenceRange> </observation> </ component> <component> <observation moodCode="EVN" classCode="OBS"> <templateId root="216.840.1.013866.10.20.22.4.2" /> <id nullFlavor="NA" /> <code codeSystem="local" code="31159-7" displayName= "Serum or plasma creatinine measurement with calculation of estimated glomerular filtration rate" /> <statusCode code="completed" /> <effectiveTime value="883954155144" /> <value unit="" xsi:type="PQ" value=">" /> <referenceRange> <observationRange> <text>NRG</text> </observationRange> </referenceRange > </observation> </component> <component> <observation moodCode="EVN" classCode="OBS"> <templateId root= "216.840.1.539368.10..22.4.2" /> <id nullFlavor="NA" /> < code codeSystem="local" code="2345-7" displayName="Serum or plasma glucose measurement (mass/volume)" /> <statusCode code="completed" /> <effectiveTime value="545402357571" /> <value unit="mg/dL" xsi:type="PQ " value="82" /> <referenceRange> <observationRange> <text>70-105</text> </observationRange> </ referenceRange> </observation> </component> <component> <observation moodCode="EVN" classCode="OBS"> <templateId root= "216.840.1.214581.10..22.4.2" /> <id nullFlavor="NA" /> < code codeSystem="local" code="36647-0" displayName="Serum or plasma calcium measurement (mass/volume)" /> <statusCode code="completed" /> <effectiveTime value="090887672498" /> <value unit="mg/dL" xsi:type="PQ " value="9.6" /> <referenceRange> <observationRange> <text>8.5-10.1</text> </observationRange> </ referenceRange> </observation> </component> </organizer> </entry > <entry> <organizer moodCode="EVN" classCode="BATTERY"> <templateId root="2.16.840.1.482512.10.20.22.4.1" /> <id nullFlavor="NA" /> <code codeSystem="local" code="2117-12" displayName="Serum or plasma choriogonadotropin ( test) detection" /> <statusCode code= "completed" /> <component> <observation moodCode="EVN" classCode= "OBS"> <templateId root="216.840.1.680057.10.20.22.4.2" /> < id nullFlavor="NA" /> <code codeSystem="local" code="2117-12" displayName="Serum or plasma choriogonadotropin ( test) detection" /> <statusCode code="completed" /> <effectiveTime value= "479737521048" /> <value unit="" xsi:type="PQ" value="NEGATIVE" /> <referenceRange> <observationRange> <text>NEGATIVE </text> </observationRange> </referenceRange> </ observation> </component> </organizer> </entry> <entry> <organizer moodCode="EVN" classCode="BATTERY"> <templateId root= "2.16.840.1.532506.10.20.22.4.1" /> <id nullFlavor="NA" /> <code codeSystem="local" code="600-7" displayName="Bacterial blood culture" /> < statusCode code="completed" /> <component> <observation moodCode= "EVN" classCode="OBS"> <templateId root="2.16.840.1.542146.10.20.22.4.2 " /> <id nullFlavor="NA" /> <code codeSystem="local" code="600 -7" displayName="Bacterial blood culture" /> <statusCode code= "completed" /> <effectiveTime value="032127482461" /> <value unit="" xsi:type="PQ" value="NG" /> <referenceRange> < observationRange> <text>NRG</text> </observationRange> </referenceRange> </observation> </component> </ organizer> </entry> <entry> <organizer moodCode="EVN" classCode="BATTERY"> <templateId root="2.16.840.1.792416.10.20.22.4.1" /> <id nullFlavor= "NA" /> <code codeSystem="local" code="57338-3" displayName="Methicillin resistant Staphylococcus aureus (MRSA) screening culture" /> <statusCode code="completed" /> <component> <observation moodCode="EVN" classCode="OBS"> <templateId root="2.16.840.1.794362.10.20.22.4.2" /> <id nullFlavor="NA" /> <code codeSystem="local" code="MRSARES " displayName="MRSA SCREEN RESULT" /> <statusCode code="completed" /> <effectiveTime value="808321762847" /> <value unit="" xsi:type ="PQ" value="MRSA ISOLATED" /> <interpretationCode codeSystem="local" code="*" /> <referenceRange> <observationRange> <text>NRG</text> </observationRange> </referenceRange> </observation> </component> </organizer> </entry> <entry> < organizer moodCode="EVN" classCode="BATTERY"> <templateId root= "216.840.1.513877.10..22.4.1" /> <id nullFlavor="NA" /> <code codeSystem="local" code="600-7" displayName="Bacterial blood culture" /> < statusCode code="completed" /> <component> <observation moodCode= "EVN" classCode="OBS"> <templateId root="16.840.1.514606.10..4.2 " /> <id nullFlavor="NA" /> <code codeSystem="local" code="600 7" displayName="Bacterial blood culture" /> <statusCode code= "completed" /> <effectiveTime value="" /> <value unit="" xsi:type="PQ" value="NG" /> <referenceRange> < observationRange> <text>NRG</text> </observationRange> </referenceRange> </observation> </component> </ organizer> </entry> <entry> <organizer moodCode="EVN" classCode="BATTERY"> <templateId root="16.840.1.959982.10..4.1" /> <id nullFlavor= "NA" /> <code codeSystem="local" code="65566-9" displayName="Urine drug screening test" /> <statusCode code="completed" /> <component> <observation moodCode="EVN" classCode="OBS"> <templateId root= "216.840.1.813517.10..22.4.2" /> <id nullFlavor="NA" /> < code codeSystem="local" code="57805-5" displayName="Urine phencyclidine detection by screening method" /> <statusCode code="completed" /> <effectiveTime value="" /> <value unit="" xsi:type="PQ " value="NEGATIVE" /> <referenceRange> <observationRange> <text>NEGATIVE</text> </observationRange> </ referenceRange> </observation> </component> <component> <observation moodCode="EVN" classCode="OBS"> <templateId root= "2.16.840.1.793080.10..22.4.2" /> <id nullFlavor="NA" /> < code codeSystem="local" code="82398-9" displayName="Urine benzodiazepines detection by screening method" /> <statusCode code="completed" /> <effectiveTime value="" /> <value unit="" xsi:type="PQ " value="NEGATIVE" /> <referenceRange> <observationRange> <text>NEGATIVE</text> </observationRange> </ referenceRange> </observation> </component> <component> <observation moodCode="EVN" classCode="OBS"> <templateId root= "16.840.1.116347.10.22.4.2" /> <id nullFlavor="NA" /> < code codeSystem="local" code="3397-7" displayName="Urine cocaine detection" /> <statusCode code="completed" /> <effectiveTime value= "" /> <value unit="" xsi:type="PQ" value="NEGATIVE" /> <referenceRange> <observationRange> <text>NEGATIVE </text> </observationRange> </referenceRange> </ observation> </component> <component> <observation moodCode= "EVN" classCode="OBS"> <templateId root="16.840.1.109463.10.20.22.4.2 " /> <id nullFlavor="NA" /> <code codeSystem="local" code= "47208-2" displayName="Urine amphetamines detection by screening method" /> <statusCode code="completed" /> <effectiveTime value= "" /> <value unit="" xsi:type="PQ" value="POSITIVE" /> <interpretationCode codeSystem="local" code="*" /> < referenceRange> <observationRange> <text>NEGATIVE</text > </observationRange> </referenceRange> </observation > </component> <component> <observation moodCode="EVN" classCode="OBS"> <templateId root="2.16.840.1.326068.10.20.22.4.2" /> <id nullFlavor="NA" /> <code codeSystem="local" code="83949-0 " displayName="Urine methamphetamine detection by screening method" /> <statusCode code="completed" /> <effectiveTime value="" /> <value unit="" xsi:type="PQ" value="NEGATIVE" /> < referenceRange> <observationRange> <text>NEGATIVE</text > </observationRange> </referenceRange> </observation > </component> <component> <observation moodCode="EVN" classCode="OBS"> <templateId root="2.16.840.1.602058.10.20.22.4.2" /> <id nullFlavor="NA" /> <code codeSystem="local" code="01601-5 " displayName="Urine cannabinoids detection by screening method" /> < statusCode code="completed" /> <effectiveTime value="" /> <value unit="" xsi:type="PQ" value="POSITIVE" /> < interpretationCode codeSystem="local" code="*" /> <referenceRange> <observationRange> <text>NEGATIVE</text> </ observationRange> </referenceRange> </observation> </ component> <component> <observation moodCode="EVN" classCode="OBS"> <templateId root="2.16.840.1.816118.10..22.4.2" /> <id nullFlavor="NA" /> <code codeSystem="local" code="82433-4" displayName= "Urine opiates detection by screening method" /> <statusCode code= "completed" /> <effectiveTime value="" /> <value unit="" xsi:type="PQ" value="NEGATIVE" /> <referenceRange> < observationRange> <text>NEGATIVE</text> </ observationRange> </referenceRange> </observation> </ component> <component> <observation moodCode="EVN" classCode="OBS"> <templateId root="216.840.1.511444.10...4.2" /> <id nullFlavor="NA" /> <code codeSystem="local" code="3377-9" displayName= "Urine barbiturates detection" /> <statusCode code="completed" /> <effectiveTime value="" /> <value unit="" xsi:type="PQ " value="NEGATIVE" /> <referenceRange> <observationRange> <text>NEGATIVE</text> </observationRange> </ referenceRange> </observation> </component> <component> <observation moodCode="EVN" classCode="OBS"> <templateId root= "16.840.1.003281.10..22.4.2" /> <id nullFlavor="NA" /> < code codeSystem="local" code="39627-1" displayName="Screening urine tricyclic antidepressants detection" /> <statusCode code="completed" /> <effectiveTime value="" /> <value unit="" xsi:type="PQ" value="NEGATIVE" /> <referenceRange> <observationRange> <text>NEGATIVE</text> </observationRange> </ referenceRange> </observation> </component> <component> <observation moodCode="EVN" classCode="OBS"> <templateId root= "2.16.840.1.680463.10..22.4.2" /> <id nullFlavor="NA" /> < code codeSystem="local" code="07497-3" displayName="Urine methadone detection by screening method" /> <statusCode code="completed" /> < effectiveTime value="" /> <value unit="" xsi:type="PQ" value="NEGATIVE" /> <referenceRange> <observationRange> <text>NEGATIVE</text> </observationRange> </ referenceRange> </observation> </component> <component> <observation moodCode="EVN" classCode="OBS"> <templateId root= "2.16.840.1.233996.22.4.2" /> <id nullFlavor="NA" /> < code codeSystem="local" code="02873-7" displayName="Urine oxycodone detection" / > <statusCode code="completed" /> <effectiveTime value= "" /> <value unit="" xsi:type="PQ" value="NEGATIVE" /> <referenceRange> <observationRange> <text>NEGATIVE </text> </observationRange> </referenceRange> </ observation> </component> <component> <observation moodCode= "EVN" classCode="OBS"> <templateId root="216.840.1.747079.10.22.4.2 " /> <id nullFlavor="NA" /> <code codeSystem="local" code= "14474-7" displayName="Urine propoxyphene detection" /> <statusCode code="completed" /> <effectiveTime value="" /> < value unit="" xsi:type="PQ" value="NEGATIVE" /> <referenceRange> <observationRange> <text>NEGATIVE</text> </ observationRange> </referenceRange> </observation> </ component> </organizer> </entry> <entry> <organizer moodCode="EVN" classCode="BATTERY"> <templateId root="06.27.840.1.118617.10.20.22.4.1" /> <id nullFlavor="NA" /> <code codeSystem="local" code="04771-5" displayName="Bacteria identification in isolate by anaerobe culture" /> < statusCode code="completed" /> <component> <observation moodCode= "EVN" classCode="OBS"> <templateId root="06.27.840.1.202548.10..22.4.2 " /> <id nullFlavor="NA" /> <code codeSystem="local" code= "38155-9" displayName="Bacteria identification in isolate by anaerobe culture" / > <statusCode code="completed" /> <effectiveTime value= "632516385695" /> <value unit="" xsi:type="PQ" value="NOANA" /> <referenceRange> <observationRange> <text>NRG</text> </observationRange> </referenceRange> </observation > </component> </organizer> </entry> <entry> <organizer moodCode= "EVN" classCode="BATTERY"> <templateId root="06.27.840.1.220994.10..22.4.1 " /> <id nullFlavor="NA" /> <code codeSystem="local" code="664-3" displayName="Gram stain microscopy" /> <statusCode code="completed" /> <component> <observation moodCode="EVN" classCode="OBS"> < templateId root="06.27.840.1.480166.10..4.2" /> <id nullFlavor="NA " /> <code codeSystem="local" code="664-3" displayName="Gram stain microscopy" /> <statusCode code="completed" /> <effectiveTime value="131514363756" /> <value unit="" xsi:type="PQ" value="REPORTED ,0605." /> <referenceRange> <observationRange> <text>NRG</text> </observationRange> </ referenceRange> </observation> </component> </organizer> </entry > <entry> <organizer moodCode="EVN" classCode="BATTERY"> <templateId root="216.840.1.071866.02.28.22.4.1" /> <id nullFlavor="NA" /> <code codeSystem="local" code="6462-6" displayName="Bacteria identification in wound by culture" /> <statusCode code="completed" /> <component> < observation moodCode="EVN" classCode="OBS"> <templateId root= "216.840.1.893232.10.4.2" /> <id nullFlavor="NA" /> < code codeSystem="local" code="6462-6" displayName="Bacteria identification in wound by culture" /> <statusCode code="completed" /> < effectiveTime value="663036060069" /> <value unit="" xsi:type="PQ" value="SEE REPORT" /> <referenceRange> <observationRange> <text>NRG</text> </observationRange> </ referenceRange> </observation> </component> <component> <observation moodCode="EVN" classCode="OBS"> <templateId root= "216.840.1.047931.10.4.2" /> <id nullFlavor="NA" /> < code codeSystem="local" code="FTEXTERNAL" displayName="FREE TEXT EXTERNAL" /> <statusCode code="completed" /> <effectiveTime value= "899504181329" /> <value unit="" xsi:type="PQ" value="METHICILLIN- RESISTANT STAPH AUREUS" /> <referenceRange> < observationRange> <text>NRG</text> </observationRange> </referenceRange> </observation> </component> < component> <observation moodCode="EVN" classCode="OBS"> < templateId root="06.27.840.1.699872.10.22.4.2" /> <id nullFlavor="NA " /> <code codeSystem="local" code="G" displayName="QUANTITY OF GROWTH " /> <statusCode code="completed" /> <effectiveTime value= "" /> <value unit="" xsi:type="PQ" value="." /> < referenceRange> <observationRange> <text>NRG</text> </observationRange> </referenceRange> </observation> </component> </organizer> </entry> <entry> <organizer moodCode="EVN" classCode="BATTERY"> <templateId root="06.27.840.1.177527.10.22.4.1" /> <id nullFlavor="NA" /> <code codeSystem="local" code="RML-SENS" displayName="RML Sensitivity Panel" /> <statusCode code="completed" /> <component> <observation moodCode="EVN" classCode="OBS"> < templateId root="06.27.840.1.061237..22.4.2" /> <id nullFlavor="NA " /> <code codeSystem="local" code="383-0" displayName="Oxacillin susceptibility test by minimum inhibitory concentration" /> < statusCode code="completed" /> <effectiveTime value="872171268490" /> <value unit="" xsi:type="PQ" value="R" /> <interpretationCode codeSystem="local" code="*" /> <referenceRange> < observationRange> <text>NRG</text> </observationRange> </referenceRange> </observation> </component> < component> <observation moodCode="EVN" classCode="OBS"> < templateId root="216.840.1.414925.10.2022.4.2" /> <id nullFlavor="NA " /> <code codeSystem="local" code="193-3" displayName="Clindamycin susceptibility test by minimum inhibitory concentration" /> < statusCode code="completed" /> <effectiveTime value="532159934443" /> <value unit="" xsi:type="PQ" value="<=" /> < interpretationCode codeSystem="local" code="*" /> <referenceRange> <observationRange> <text>NRG</text> </ observationRange> </referenceRange> </observation> </ component> <component> <observation moodCode="EVN" classCode="OBS"> <templateId root="216.840.1.904971.10.20.22.4.2" /> <id nullFlavor="NA" /> <code codeSystem="local" code="233-7" displayName= "Erythromycin susceptibility test by minimum inhibitory concentration" /> <statusCode code="completed" /> <effectiveTime value="203282715494 " /> <value unit="" xsi:type="PQ" value=">" /> < interpretationCode codeSystem="local" code="*" /> <referenceRange> <observationRange> <text>NRG</text> </ observationRange> </referenceRange> </observation> </ component> <component> <observation moodCode="EVN" classCode="OBS"> <templateId root="216.840.1.042678.10.20.22.4.2" /> <id nullFlavor="NA" /> <code codeSystem="local" code="516-5" displayName= "Trimethoprim/sulfamethoxazole susceptibility test by minimum inhibitoryconcentration" /> <statusCode code="completed" /> < effectiveTime value="378173710780" /> <value unit="" xsi:type="PQ" value="S" /> <interpretationCode codeSystem="local" code="*" /> <referenceRange> <observationRange> <text>NRG</text> </observationRange> </referenceRange> </observation > </component> <component> <observation moodCode="EVN" classCode="OBS"> <templateId root="216.840.1.478318.10...4.2" /> <id nullFlavor="NA" /> <code codeSystem="local" code="524-9" displayName="Vancomycin susceptibility test by minimum inhibitory concentration " /> <statusCode code="completed" /> <effectiveTime value= "459642851524" /> <value unit="" xsi:type="PQ" value="1" /> < interpretationCode codeSystem="local" code="*" /> <referenceRange> <observationRange> <text>NRG</text> </ observationRange> </referenceRange> </observation> </ component> <component> <observation moodCode="EVN" classCode="OBS"> <templateId root="16.840.1.387722.10..22.4.2" /> <id nullFlavor="NA" /> <code codeSystem="local" code="81758-2" displayName= "Levofloxacin susceptibility test by minimum inhibitory concentration" /> <statusCode code="completed" /> <effectiveTime value="272962765367 " /> <value unit="" xsi:type="PQ" value="4" /> < interpretationCode codeSystem="local" code="*" /> <referenceRange> <observationRange> <text>NRG</text> </ observationRange> </referenceRange> </observation> </ component> <component> <observation moodCode="EVN" classCode="OBS"> <templateId root="16.840.1.578109.02.28.22.4.2" /> <id nullFlavor="NA" /> <code codeSystem="local" code="428-3" displayName= "Rifampin susceptibility test by minimum inhibitory concentration" /> < statusCode code="completed" /> <effectiveTime value="904840049083" /> <value unit="" xsi:type="PQ" value="<=" /> < interpretationCode codeSystem="local" code="*" /> <referenceRange> <observationRange> <text>NRG</text> </ observationRange> </referenceRange> </observation> </ component> <component> <observation moodCode="EVN" classCode="OBS"> <templateId root="16.840.1.874050.02.28.22.4.2" /> <id nullFlavor="NA" /> <code codeSystem="local" code="76-0" displayName= "Cefazolin susceptibility test by minimum inhibitory concentration" /> <statusCode code="completed" /> <effectiveTime value="757649552745" /> <value unit="" xsi:type="PQ" value=">" /> < interpretationCode codeSystem="local" code="*" /> <referenceRange> <observationRange> <text>NRG</text> </ observationRange> </referenceRange> </observation> </ component> <component> <observation moodCode="EVN" classCode="OBS"> <templateId root="06.27.840.1.494141.10.20.22.4.2" /> <id nullFlavor="NA" /> <code codeSystem="local" code="92842-8" displayName= "Linezolid susceptibility test by minimum inhibitory concentration" /> <statusCode code="completed" /> <effectiveTime value="965955221336" /> <value unit="" xsi:type="PQ" value="2" /> < interpretationCode codeSystem="local" code="*" /> <referenceRange> <observationRange> <text>NRG</text> </ observationRange> </referenceRange> </observation> </ component> <component> <observation moodCode="EVN" classCode="OBS"> <templateId root="840.1.862044.1022.4.2" /> <id nullFlavor="NA" /> <code codeSystem="local" code="392-1" displayName= "Penicillin G susceptibility test by minimum inhibitory concentration" /> <statusCode code="completed" /> <effectiveTime value="259646161932 " /> <value unit="" xsi:type="PQ" value=">" /> < interpretationCode codeSystem="local" code="*" /> <referenceRange> <observationRange> <text>NRG</text> </ observationRange> </referenceRange> </observation> </ component> <component> <observation moodCode="EVN" classCode="OBS"> <templateId root="06.27.840.1.625450.10.2022.4.2" /> <id nullFlavor="NA" /> <code codeSystem="local" code="95696-6" displayName= "Moxifloxacin susceptibility test by minimum inhibitory concentration" /> <statusCode code="completed" /> <effectiveTime value="920504649729 " /> <value unit="" xsi:type="PQ" value="S" /> < interpretationCode codeSystem="local" code="*" /> <referenceRange> <observationRange> <text>NRG</text> </ observationRange> </referenceRange> </observation> </ component> <component> <observation moodCode="EVN" classCode="OBS"> <templateId root="16.840.1.708424.10.4.2" /> <id nullFlavor="NA" /> <code codeSystem="local" code="335-0" displayName= "[facility] [place]" /> <statusCode code="completed" /> < effectiveTime value="356565838722" /> <value unit="" xsi:type="PQ" value="<=" /> <interpretationCode codeSystem="local" code="*" /> <referenceRange> <observationRange> <text>NRG</ text> </observationRange> </referenceRange> </ observation> </component> </organizer> </entry> <entry> <organizer moodCode="EVN" classCode="BATTERY"> <templateId root= "840.1.003689.10.4.1" /> <id nullFlavor="NA" /> <code codeSystem="local" code="44482-2" displayName="Complete urinalysis with reflex to culture" /> <statusCode code="completed" /> <component> < observation moodCode="EVN" classCode="OBS"> <templateId root= "16.840.1.080485.10.22.4.2" /> <id nullFlavor="NA" /> < code codeSystem="local" code="5778-6" displayName="Urine color determination" / > <statusCode code="completed" /> <effectiveTime value= "847973432195" /> <value unit="" xsi:type="PQ" value="YELLOW" /> <referenceRange> <observationRange> <text>NRG</text > </observationRange> </referenceRange> </observation > </component> <component> <observation moodCode="EVN" classCode="OBS"> <templateId root="06.27.840.1.626081.10.20.22.4.2" /> <id nullFlavor="NA" /> <code codeSystem="local" code="65609-4 " displayName="Urine clarity determination" /> <statusCode code= "completed" /> <effectiveTime value="868428479790" /> <value unit="" xsi:type="PQ" value="VERY CLOUDY" /> <interpretationCode codeSystem="local" code="*" /> <referenceRange> < observationRange> <text>NRG</text> </observationRange> </referenceRange> </observation> </component> < component> <observation moodCode="EVN" classCode="OBS"> < templateId root="840.1.922692.10.2022.4.2" /> <id nullFlavor="NA " /> <code codeSystem="local" code="5803-2" displayName="Urine pH measurement by test strip" /> <statusCode code="completed" /> <effectiveTime value="787899769787" /> <value unit="" xsi:type="PQ" value="6.5" /> <referenceRange> <observationRange> <text>5-9</text> </observationRange> </referenceRange> </observation> </component> <component> <observation moodCode="EVN" classCode="OBS"> <templateId root= "06.27.840.1.861178.10.20.22.4.2" /> <id nullFlavor="NA" /> < code codeSystem="local" code="5811-5" displayName="Specific gravity of urine by test strip" /> <statusCode code="completed" /> <effectiveTime value="963125908785" /> <value unit="" xsi:type="PQ" value="1.010" /> <interpretationCode codeSystem="local" code="" /> < referenceRange> <observationRange> <text>1.016-1.022</ text> </observationRange> </referenceRange> </ observation> </component> <component> <observation moodCode= "EVN" classCode="OBS"> <templateId root="2.16.840.1.547603.10.20.22.4.2 " /> <id nullFlavor="NA" /> <code codeSystem="local" code= "72359-1" displayName="Urine protein assay by test strip, semi-quantitative" /> <statusCode code="completed" /> <effectiveTime value= "777122549932" /> <value unit="" xsi:type="PQ" value="4+" /> < referenceRange> <observationRange> <text>NEGATIVE</text > </observationRange> </referenceRange> </observation > </component> <component> <observation moodCode="EVN" classCode="OBS"> <templateId root="2.16.840.1.675122.10.20.22.4.2" /> <id nullFlavor="NA" /> <code codeSystem="local" code="15738-2 " displayName="Urine glucose detection by automated test strip" /> < statusCode code="completed" /> <effectiveTime value="970301684832" /> <value unit="" xsi:type="PQ" value="NEGATIVE" /> < referenceRange> <observationRange> <text>NEGATIVE</text > </observationRange> </referenceRange> </observation > </component> <component> <observation moodCode="EVN" classCode="OBS"> <templateId root="16.840.1.747492.10.20.22.4.2" /> <id nullFlavor="NA" /> <code codeSystem="local" code="04703-9 " displayName="Erythrocytes detection in urine sediment by light microscopy" /> <statusCode code="completed" /> <effectiveTime value= "486038719133" /> <value unit="" xsi:type="PQ" value="4+" /> < interpretationCode codeSystem="local" code="*" /> <referenceRange> <observationRange> <text>NEGATIVE</text> </ observationRange> </referenceRange> </observation> </ component> <component> <observation moodCode="EVN" classCode="OBS"> <templateId root="06.27.840.1.458198.10.22.4.2" /> <id nullFlavor="NA" /> <code codeSystem="local" code="07309-4" displayName= "Urine ketones detection by automated test strip" /> <statusCode code= "completed" /> <effectiveTime value="123098052050" /> <value unit="" xsi:type="PQ" value="1+" /> <interpretationCode codeSystem= "local" code="*" /> <referenceRange> <observationRange> <text>NEGATIVE</text> </observationRange> </ referenceRange> </observation> </component> <component> <observation moodCode="EVN" classCode="OBS"> <templateId root= "16.840.1.183335.10.20.22.4.2" /> <id nullFlavor="NA" /> < code codeSystem="local" code="5802-4" displayName="Urine nitrite detection by test strip" /> <statusCode code="completed" /> <effectiveTime value="164310314773" /> <value unit="" xsi:type="PQ" value="POSITIVE" / > <interpretationCode codeSystem="local" code="*" /> < referenceRange> <observationRange> <text>NEGATIVE</text > </observationRange> </referenceRange> </observation > </component> <component> <observation moodCode="EVN" classCode="OBS"> <templateId root="216.840.1.027777.10.20.22.4.2" /> <id nullFlavor="NA" /> <code codeSystem="local" code="5770-3" displayName="Urine total bilirubin detection by test strip" /> < statusCode code="completed" /> <effectiveTime value="164338664461" /> <value unit="" xsi:type="PQ" value="NEGATIVE" /> < referenceRange> <observationRange> <text>NEGATIVE</text > </observationRange> </referenceRange> </observation > </component> <component> <observation moodCode="EVN" classCode="OBS"> <templateId root="06.27.840.1.273367.10..22.4.2" /> <id nullFlavor="NA" /> <code codeSystem="local" code="59178-1 " displayName="Urine urobilinogen measurement by automated test strip (mass/ volume)" /> <statusCode code="completed" /> <effectiveTime value="717380123730" /> <value unit="mg/dL" xsi:type="PQ" value="4" /> <interpretationCode codeSystem="local" code="*" /> < referenceRange> <observationRange> <text>NORMAL</text> </observationRange> </referenceRange> </observation> </component> <component> <observation moodCode="EVN" classCode ="OBS"> <templateId root="16.840.1.548260.10.20.22.4.2" /> < id nullFlavor="NA" /> <code codeSystem="local" code="5799-2" displayName="Urine leukocyte esterase detection by dipstick" /> < statusCode code="completed" /> <effectiveTime value="574450701099" /> <value unit="" xsi:type="PQ" value="3+" /> < interpretationCode codeSystem="local" code="*" /> <referenceRange> <observationRange> <text>NEGATIVE</text> </ observationRange> </referenceRange> </observation> </ component> <component> <observation moodCode="EVN" classCode="OBS"> <templateId root="2.16.840.1.800602.10..4.2" /> <id nullFlavor="NA" /> <code codeSystem="local" code="79385-0" displayName= "Automated urine sediment erythrocyte count by microscopy (number/high power field)" /> <statusCode code="completed" /> <effectiveTime value="081850578534" /> <value unit="[HPF]" xsi:type="PQ" value="" /> <interpretationCode codeSystem="local" code="*" /> < referenceRange> <observationRange> <text>NRG</text> </observationRange> </referenceRange> </observation> </component> <component> <observation moodCode="EVN" classCode= "OBS"> <templateId root="216.840.1.285650.10..4.2" /> < id nullFlavor="NA" /> <code codeSystem="local" code="5821-4" displayName="Automated urine sediment leukocyte count by microscopy (number/ high power field)" /> <statusCode code="completed" /> < effectiveTime value="540973743700" /> <value unit="" xsi:type="PQ" value="TNTC" /> <interpretationCode codeSystem="local" code="*" /> <referenceRange> <observationRange> <text>NRG</ text> </observationRange> </referenceRange> </ observation> </component> <component> <observation moodCode= "EVN" classCode="OBS"> <templateId root="16.840.1.112938.10..22.4.2 " /> <id nullFlavor="NA" /> <code codeSystem="local" code= "64885-2" displayName="Bacteria detection in urine sediment by light microscopy " /> <statusCode code="completed" /> <effectiveTime value= "386662631135" /> <value unit="" xsi:type="PQ" value="LARGE" /> <interpretationCode codeSystem="local" code="*" /> <referenceRange> <observationRange> <text>NRG</text> </ observationRange> </referenceRange> </observation> </ component> <component> <observation moodCode="EVN" classCode="OBS"> <templateId root="16.840.1.670630.10...4.2" /> <id nullFlavor="NA" /> <code codeSystem="local" code="40058-6" displayName= "Squamous epithelial cells detection in urine sediment by light microscopy" /> <statusCode code="completed" /> <effectiveTime value= "757950803845" /> <value unit="" xsi:type="PQ" value="10-25" /> <interpretationCode codeSystem="local" code="*" /> <referenceRange> <observationRange> <text>NRG</text> </ observationRange> </referenceRange> </observation> </ component> <component> <observation moodCode="EVN" classCode="OBS"> <templateId root="216.840.1.804263.10.20.22.4.2" /> <id nullFlavor="NA" /> <code codeSystem="local" code="61074-9" displayName= "Crystals detection in urine sediment by light microscopy" /> < statusCode code="completed" /> <effectiveTime value="371595978009" /> <value unit="" xsi:type="PQ" value="NONE" /> <referenceRange> <observationRange> <text>NRG</text> </ observationRange> </referenceRange> </observation> </ component> <component> <observation moodCode="EVN" classCode="OBS"> <templateId root="2.16.840.1.572741.10.20.22.4.2" /> <id nullFlavor="NA" /> <code codeSystem="local" code="66170-9" displayName= "Casts detection in urine sediment by light microscopy" /> <statusCode code="completed" /> <effectiveTime value="289750818832" /> < value unit="" xsi:type="PQ" value="NONE" /> <referenceRange> <observationRange> <text>NRG</text> </observationRange > </referenceRange> </observation> </component> < component> <observation moodCode="EVN" classCode="OBS"> < templateId root="2.16.840.1.099520.10.20.22.4.2" /> <id nullFlavor="NA " /> <code codeSystem="local" code="8247-9" displayName="Mucus detection in urine sediment by light microscopy" /> <statusCode code= "completed" /> <effectiveTime value="102879290380" /> <value unit="" xsi:type="PQ" value="NEGATIVE" /> <referenceRange> < observationRange> <text>NRG</text> </observationRange> </referenceRange> </observation> </component> < component> <observation moodCode="EVN" classCode="OBS"> < templateId root="2.16.840.1.162696.10.20.22.4.2" /> <id nullFlavor="NA " /> <code codeSystem="local" code="05721-6" displayName="Complete urinalysis with reflex to culture" /> <statusCode code="completed" /> <effectiveTime value="543000120961" /> <value unit="" xsi:type ="PQ" value="YES" /> <referenceRange> <observationRange> <text>NRG</text> </observationRange> </ referenceRange> </observation> </component> </organizer> </entry > <entry> <organizer moodCode="EVN" classCode="BATTERY"> <templateId root="2.16.840.1.734783.10.20.22.4.1" /> <id nullFlavor="NA" /> <code codeSystem="local" code="85543-9" displayName="Complete blood count (CBC) with automated white blood cell (WBC) differential" /> <statusCode code= "completed" /> <component> <observation moodCode="EVN" classCode= "OBS"> <templateId root="2.16.840.1.555253.10.20.22.4.2" /> < id nullFlavor="NA" /> <code codeSystem="local" code="6690-2" displayName="Blood leukocytes automated count (number/volume)" /> < statusCode code="completed" /> <effectiveTime value="767125809332" /> <value unit="10*3/uL" xsi:type="PQ" value="18.7" /> < interpretationCode codeSystem="local" code="" /> <referenceRange> <observationRange> <text>4.3-11.0</text> </ observationRange> </referenceRange> </observation> </ component> <component> <observation moodCode="EVN" classCode="OBS"> <templateId root="2.16.840.1.348652.10.20.22.4.2" /> <id nullFlavor="NA" /> <code codeSystem="local" code="789-8" displayName= "Blood erythrocytes automated count (number/volume)" /> <statusCode code="completed" /> <effectiveTime value="314365694641" /> < value unit="10*6/uL" xsi:type="PQ" value="4.35" /> <referenceRange> <observationRange> <text>4.35-5.85</text> </ observationRange> </referenceRange> </observation> </ component> <component> <observation moodCode="EVN" classCode="OBS"> <templateId root="2.16.840.1.225601.10..22.4.2" /> <id nullFlavor="NA" /> <code codeSystem="local" code="48300-8" displayName= "Venous blood hemoglobin measurement (mass/volume)" /> <statusCode code ="completed" /> <effectiveTime value="808693430200" /> <value unit="g/dL" xsi:type="PQ" value="10.7" /> <interpretationCode codeSystem="local" code="" /> <referenceRange> < observationRange> <text>11.5-16.0</text> </ observationRange> </referenceRange> </observation> </ component> <component> <observation moodCode="EVN" classCode="OBS"> <templateId root="2.16.840.1.551970.10.20.22.4.2" /> <id nullFlavor="NA" /> <code codeSystem="local" code="94046-8" displayName= "Blood hematocrit (volume fraction)" /> <statusCode code="completed" / > <effectiveTime value="631921614611" /> <value unit="%" xsi:type="PQ" value="33" /> <interpretationCode codeSystem="local" code ="" /> <referenceRange> <observationRange> < text>35-52</text> </observationRange> </referenceRange> </observation> </component> <component> <observation moodCode="EVN" classCode="OBS"> <templateId root= "2.16.840.1.342626.10.20.22.4.2" /> <id nullFlavor="NA" /> < code codeSystem="local" code="787-2" displayName="Automated erythrocyte mean corpuscular volume" /> <statusCode code="completed" /> < effectiveTime value="905680567028" /> <value unit="[foz_us]" xsi:type= "PQ" value="75" /> <interpretationCode codeSystem="local" code="" /> <referenceRange> <observationRange> <text>80- 99</text> </observationRange> </referenceRange> </ observation> </component> <component> <observation moodCode= "EVN" classCode="OBS"> <templateId root="2.16.840.1.331335.10.20.22.4.2 " /> <id nullFlavor="NA" /> <code codeSystem="local" code="785 -6" displayName="Automated erythrocyte mean corpuscular hemoglobin (mass per erythrocyte)" /> <statusCode code="completed" /> < effectiveTime value="269451334478" /> <value unit="pg" xsi:type="PQ" value="25" /> <referenceRange> <observationRange> <text>25-34</text> </observationRange> </referenceRange > </observation> </component> <component> <observation moodCode="EVN" classCode="OBS"> <templateId root= "216.840.1.426693.10.20.22.4.2" /> <id nullFlavor="NA" /> < code codeSystem="local" code="786-4" displayName="Automated erythrocyte mean corpuscular hemoglobin concentration measurement (mass/volume)" /> < statusCode code="completed" /> <effectiveTime value="752505035026" /> <value unit="g/dL" xsi:type="PQ" value="33" /> <referenceRange > <observationRange> <text>32-36</text> </ observationRange> </referenceRange> </observation> </ component> <component> <observation moodCode="EVN" classCode="OBS"> <templateId root="216.840.1.246267.10..4.2" /> <id nullFlavor="NA" /> <code codeSystem="local" code="788-0" displayName= "Automated erythrocyte distribution width ratio" /> <statusCode code= "completed" /> <effectiveTime value="692634369909" /> <value unit="%" xsi:type="PQ" value="21.0" /> <interpretationCode codeSystem="local" code="" /> <referenceRange> < observationRange> <text>10.0-14.5</text> </ observationRange> </referenceRange> </observation> </ component> <component> <observation moodCode="EVN" classCode="OBS"> <templateId root="216.840.1.830644.10.20.22.4.2" /> <id nullFlavor="NA" /> <code codeSystem="local" code="777-3" displayName= "Automated blood platelet count (count/volume)" /> <statusCode code= "completed" /> <effectiveTime value="845623062643" /> <value unit="10*3/uL" xsi:type="PQ" value="348" /> <referenceRange> <observationRange> <text>130-400</text> </ observationRange> </referenceRange> </observation> </ component> <component> <observation moodCode="EVN" classCode="OBS"> <templateId root="2.16.840.1.964080.10.20.22.4.2" /> <id nullFlavor="NA" /> <code codeSystem="local" code="83885-9" displayName= "Automated blood platelet mean volume measurement" /> <statusCode code= "completed" /> <effectiveTime value="621365998700" /> <value unit="[foz_us]" xsi:type="PQ" value="11.0" /> <interpretationCode codeSystem="local" code="" /> <referenceRange> < observationRange> <text>7.4-10.4</text> </ observationRange> </referenceRange> </observation> </ component> <component> <observation moodCode="EVN" classCode="OBS"> <templateId root="2.16.840.1.471319.10.20.22.4.2" /> <id nullFlavor="NA" /> <code codeSystem="local" code="770-8" displayName= "Automated blood neutrophils/100 leukocytes" /> <statusCode code= "completed" /> <effectiveTime value="259153393581" /> <value unit="%" xsi:type="PQ" value="86" /> <interpretationCode codeSystem ="local" code="" /> <referenceRange> <observationRange> <text>42-75</text> </observationRange> </ referenceRange> </observation> </component> <component> <observation moodCode="EVN" classCode="OBS"> <templateId root= "2.16.840.1.276323.10.20.22.4.2" /> <id nullFlavor="NA" /> < code codeSystem="local" code="736-9" displayName="Automated blood lymphocytes/ 100 leukocytes" /> <statusCode code="completed" /> < effectiveTime value="937709929358" /> <value unit="%" xsi:type="PQ " value="6" /> <interpretationCode codeSystem="local" code="" /> <referenceRange> <observationRange> <text>12-44</ text> </observationRange> </referenceRange> </ observation> </component> <component> <observation moodCode= "EVN" classCode="OBS"> <templateId root="2.16.840.1.655516.10..22.4.2 " /> <id nullFlavor="NA" /> <code codeSystem="local" code= "73362-2" displayName="Blood monocytes/100 leukocytes" /> <statusCode code="completed" /> <effectiveTime value="617201735217" /> < value unit="%" xsi:type="PQ" value="8" /> <referenceRange> <observationRange> <text>0-12</text> </ observationRange> </referenceRange> </observation> </ component> <component> <observation moodCode="EVN" classCode="OBS"> <templateId root="216.840.1.504878.10.20.22.4.2" /> <id nullFlavor="NA" /> <code codeSystem="local" code="713-8" displayName= "Automated blood eosinophils/100 leukocytes" /> <statusCode code= "completed" /> <effectiveTime value="157211857288" /> <value unit="%" xsi:type="PQ" value="0" /> <referenceRange> < observationRange> <text>0-10</text> </observationRange> </referenceRange> </observation> </component> < component> <observation moodCode="EVN" classCode="OBS"> < templateId root="216.840.1.249802.10.20.22.4.2" /> <id nullFlavor="NA " /> <code codeSystem="local" code="706-2" displayName="Automated blood basophils/100 leukocytes" /> <statusCode code="completed" /> <effectiveTime value="187250025062" /> <value unit="%" xsi: type="PQ" value="0" /> <referenceRange> <observationRange> <text>0-10</text> </observationRange> </ referenceRange> </observation> </component> <component> <observation moodCode="EVN" classCode="OBS"> <templateId root= "16.840.1.306363.10..22.4.2" /> <id nullFlavor="NA" /> < code codeSystem="local" code="751-8" displayName="Blood neutrophils automated count (number/volume)" /> <statusCode code="completed" /> < effectiveTime value="127158266519" /> <value unit="10*3" xsi:type="PQ" value="16.0" /> <interpretationCode codeSystem="local" code="" /> <referenceRange> <observationRange> <text>1.8-7.8 </text> </observationRange> </referenceRange> </ observation> </component> <component> <observation moodCode= "EVN" classCode="OBS"> <templateId root="216.840.1.392079.10.20.22.4.2 " /> <id nullFlavor="NA" /> <code codeSystem="local" code="731 -0" displayName="Blood lymphocytes automated count (number/volume)" /> <statusCode code="completed" /> <effectiveTime value="655088495113" /> <value unit="10*3" xsi:type="PQ" value="1.2" /> < referenceRange> <observationRange> <text>1.0-4.0</text> </observationRange> </referenceRange> </observation > </component> <component> <observation moodCode="EVN" classCode="OBS"> <templateId root="2.16.840.1.610612.10..4.2" /> <id nullFlavor="NA" /> <code codeSystem="local" code="742-7" displayName="Blood monocytes automated count (number/volume)" /> < statusCode code="completed" /> <effectiveTime value="534187668294" /> <value unit="10*3" xsi:type="PQ" value="1.5" /> < interpretationCode codeSystem="local" code="" /> <referenceRange> <observationRange> <text>0.0-1.0</text> </ observationRange> </referenceRange> </observation> </ component> <component> <observation moodCode="EVN" classCode="OBS"> <templateId root="2.16.840.1.497009.10.22.4.2" /> <id nullFlavor="NA" /> <code codeSystem="local" code="711-2" displayName= "Automated eosinophil count" /> <statusCode code="completed" /> <effectiveTime value="709639456219" /> <value unit="10*3/uL" xsi: type="PQ" value="0.0" /> <referenceRange> <observationRange > <text>0.0-0.3</text> </observationRange> </ referenceRange> </observation> </component> <component> <observation moodCode="EVN" classCode="OBS"> <templateId root= "16.840.1.400005.10..22.4.2" /> <id nullFlavor="NA" /> < code codeSystem="local" code="704-7" displayName="Automated blood basophil count (count/volume)" /> <statusCode code="completed" /> < effectiveTime value="743670603935" /> <value unit="10*3/uL" xsi:type= "PQ" value="0.0" /> <referenceRange> <observationRange> <text>0.0-0.1</text> </observationRange> </ referenceRange> </observation> </component> </organizer> </entry > <entry> <organizer moodCode="EVN" classCode="BATTERY"> <templateId root="16.840.1.000961.10..22.4.1" /> <id nullFlavor="NA" /> <code codeSystem="local" code="97253-5" displayName="Blood lactic acid measurement ( moles/volume)" /> <statusCode code="completed" /> <component> < observation moodCode="EVN" classCode="OBS"> <templateId root= "16.840.1.615529.10..22.4.2" /> <id nullFlavor="NA" /> < code codeSystem="local" code="02033-4" displayName="Blood lactic acid measurement (moles/volume)" /> <statusCode code="completed" /> <effectiveTime value="903950762817" /> <value unit="mmol/L" xsi:type= "PQ" value="2.13" /> <interpretationCode codeSystem="local" code="" / > <referenceRange> <observationRange> <text> 0.50-2.00</text> </observationRange> </referenceRange> </observation> </component> </organizer> </entry></section> Encounters ACCT No. Visit Date/Time Discharge Status Pt. Type Provider Facility Loc./Unit Complaint [id number] 11/09/2016 16:32:00 11/09/2016 16:58:00 DIS Emergency Secrist DO, [facility].EDW [id number] 09/06/2016 12:52:00 09/06/2016 16:30:00 DIS Emergency Secrist DO, [facility].EDW [id number] 07/31/2016 16:36:00 07/31/2016 16:56:00 DIS Emergency Stiven Moralez DO [facility].EDW [id number] 01/11/2016 08:16:00 01/11/2016 08:47:00 DIS Emergency Marc TA, [facility].EDW [id number] 12/28/2015 19:32:00 12/28/2015 20:25:00 DIS Emergency Marc TA, [facility].EDW [id number] 11/28/2015 08:04:00 11/28/2015 08:30:00 [id number] 01/04/2015 09:52:00 01/04/2015 13:04:00 DIS Emergency Santoyo DO [facility]ANNAH [id number] 01/01/2015 09:22:00 01/01/2015 12[facility]40:00 [id number]27[facility]2014 21:37:00 12/27/2014 23[facility]13:00 [id number] 09/17/2014 10:42:00 09/17/2014 11:10:00 DIS Emergency Stiven Moralez DO NAME [facility] [id number] 11/26/2017 08:00:00 11/26/2017 23:59:59 CLS Outpatient [facility] [id number] 11/19/2017 20:04:00 11/20/2017 13:40:00 DIS Outpatient Leon Naik [facility] MED-SURG [id number] 03/31/2017 12:56:00 03/31/2017 23:59:00 DIS Outpatient Sarai, Roxy [id number] 03/27/2017 21:26:00 03/28/2017 18:20:00 DIS Outpatient Daniel Joseph [facility] MED-SURG [id number] 03/27/2017 23:46:04 Document Registration [id number] 01/29/2018 12:54:00 01/29/2018 19:55:00 DIS Outpatient JAYY POPE DO [facility] SDC LEFT BREAST ABSCESS [id number] 12/01/2017 17:13:00 12/01/2017 18:01:00 DIS Outpatient IRISH ECKERT [facility] ER L HAND INJ [id number] 05/29/2017 02:30:00 05/29/2017 06:20:00 DIS Emergency KENDRA TA, SHIRLENE Jackson [facility] ER LEFT SIDE ABD PAIN [id number] 03/19/2018 16:36:00 Document Registration [id number] 11/19/2017 20:04:00 Document Registration
[2018-03-19] MEDS ORDERED: CATHETER FLUSH 10 ML SYR IV PRN (18:00)
[2018-03-19] MEDS ORDERED: ONDANSETRON 4 MG/2 ML (SDV) Z0FRAN IV PRN (18:00)
[2018-03-19] MEDS ORDERED: FLU QUADRIvalent (5+ YOA) 2018-2019 (AFLURIA) 0.5 ML IM ONE (18:15)
[2018-03-19] MEDS ORDERED: KCL 20 MEQ TAB (K-DUR) PO ONE ×2 (18:15→18:50)
[2018-03-19 20:03] VITALS: BP 92/64
[2018-03-19 20:50] VITALS: BP 98/62
[2018-03-19 22:00] VITALS: BP 90/54
[2018-03-19 22:01] VITALS: BP 90/64
[2018-03-19 22:51] VITALS: BP 90/51
[2018-03-19 22:52] VITALS: BP 94/62
[2018-03-20] VITALS (8 sets, daily range): BP systolic 94–122; BP diastolic 52–78
[2018-03-20] MEDS: NS IV 1000 ML 1,000 ML IV SCH ×2 (03:26→08:21)
[2018-03-20] MEDS: IBUPROFEN 600 MG (MOTRIN) TAB PO PRN ×2 (03:35→17:48)
[2018-03-20 07:03] LABS: BASOPHILS % (AUTO) 0 % (0-10); EOSINOPHILS % (AUTO) 0 % (0-10); HEMATOCRIT 26 % (35-52); HEMOGLOBIN 8.3 G/DL (11.5-16.0); LYMPHOCYTES # (AUTO) 0.7 X 10^3 (1.0-4.0); LYMPHOCYTES % (AUTO) 5 % (12-44); MEAN CORPUSCULAR HEMOGLOBIN 24 PG (25-34); MEAN CORPUSCULAR HGB CONC 31 G/DL (32-36); MEAN CORPUSCULAR VOLUME 77 FL (80-99); MONOCYTES # (AUTO) 0.9 X 10^3 (0.0-1.0); MONOCYTES % (AUTO) 7 % (0-12); NEUTROPHILS # (AUTO) 11.1 X 10^3 (1.8-7.8); NEUTROPHILS % (AUTO) 87 % (42-75); PLATELET COUNT 222 10^3/uL (130-400); RED BLOOD COUNT 3.41 10^6/uL (4.35-5.85); RED CELL DISTRIBUTION WIDTH 19.9 % (10.0-14.5); WHITE BLOOD COUNT 12.7 10^3/uL (4.3-11.0)
[2018-03-20 07:26] LABS: ALANINE AMINOTRANSFERASE 12 U/L (0-55); ALBUMIN 2.8 GM/DL (3.2-4.5); ALKALINE PHOSPHATASE 62 U/L (40-136); BILIRUBIN,TOTAL 0.5 MG/DL (0.1-1.0); BUN/CREATININE RATIO 18; CALCIUM 7.8 MG/DL (8.5-10.1); CARBON DIOXIDE 18 MMOL/L (21-32); CHLORIDE 113 MMOL/L (98-107); CREATININE SERUM 0.68 MG/DL (0.60-1.30); GFR ESTIMATED > 60; GLUCOSE 108 MG/DL (70-105); POTASSIUM 2.9 MMOL/L (3.6-5.0); SODIUM 137 MMOL/L (135-145); TOTAL PROTEIN 4.7 GM/DL (6.4-8.2)
[2018-03-20] MEDS ORDERED: POTASSIUM CL 10MEQ/50ML IVPB 50 ML IV SCH (09:30)
[2018-03-20] MEDS ORDERED: NS IV 500 ML 0 ML ONE (09:40)
[2018-03-20] MEDS ORDERED: NS IV 500 ML 500 ML IV SCH (09:45)
--- NOTE | 2018-03-20 11:08 | History & Physical-Hospitalist ---
History of Present Illness HPI/Chief Complaint Pt is a 32yoCF with a PMH of frequent UTIs who presented to the ER with CC of back pain. She states the back pain started 3 days ago. She then developed a fever and thought she was disoriented. She states her temperature got up to 104 prompting her to seek evaluation in the ER. She denies any dysuria, abd pain, nausea, or vomiting. She states she has had similar issues when she has had "kidney infections" in the past and believes it to be due to her colon issues. Source: patient Date Seen 03/20/18 Time Seen by a Provider: 11:08 Attending Physician Jose Pickering MD PCP No,Local Physician Referring Physician Date of Admission Mar 19, 2018 at 5:23 pm Home Medications & Allergies Home Medications Reviewed patient Home Medication Reconciliation performed by pharmacy medication reconciliations systems test technician and/or nursing. Patients Allergies have been reviewed. 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 Smoking Status: Current Everyday Smoker Type Used: Cigarettes Physical Abuse Screen: No Sexual Abuse: No Recent Foreign Travel: No Contact w/other who traveled: No Recent Hopitalizations: Yes (SURG ON BREAST) Recent Infectious Disease Expo: No Immunizations Up To Date Pediatric: Yes Seasonal Allergies Seasonal Allergies: No Past Medical History Surgeries: Adenoidectomy, Breast, Section, Tonsillectomy Reproductive: No Tubal Ligation Gastrointestinal: Colitis Musculoskeletal: Scoliosis History of Blood Disorders: No Family History Reviewed Nursing Family Hx Diabetes mellitus maternal grandfather paternal grandfather Gastroenteritis 19 FATHER paternal grandmother ( from sepsis at age 85) maternal grandfather Hypertension 19 MOTHER maternal grandmother maternal grandfather Neoplasm maternal aunt (breast cancer) Review of Systems Constitutional: fever EENTM: No blurred vision, No double vision, No nose congestion, No throat pain Respiratory: No cough, No dyspnea on exertion, No short of breath Cardiovascular: No chest pain, No edema, No palpitations Gastrointestinal: No abdominal pain, No constipation, No diarrhea, No nausea, No vomiting Genitourinary: No discharge, No dysuria, No frequency, No hematuria Musculoskeletal: back pain Skin: No lesions, No rash Psychiatric/Neurological: Anxiety Physical Exam Physical Exam Vital Signs Vital Signs - First Documented 03/19/18 03/19/18 15:50 18:00 Temp 100.1 Pulse 137 Resp 18 B/P (MAP) 114/81 (92) Pulse Ox 99 O2 Delivery Room Air Capillary Refill : Less Than 3 Seconds Height, Weight, BMI Height: 5'3.00" Weight: 113lbs. 0.0oz. 51.178490og; 20.0 BMI Method:Stated General Appearance: No Apparent Distress, WD/WN HEENT: PERRL/EOMI, Moist Mucous Membranes Neck: Non Tender, Supple Respiratory: Lungs Clear, No Respiratory Distress Cardiovascular: Regular Rate, Rhythm, No Murmur Gastrointestinal: Normal Bowel Sounds, Non Tender, Soft Extremity: Normal Capillary Refill, No Calf Tenderness Neurologic/Psychiatric: Alert, Oriented x3, Normal Mood/Affect Skin: Normal Color, Warm/Dry Results Results/Procedures Labs Laboratory Tests 03/19/18 16:10 03/20/18 06:10 Patient resulted labs reviewed. Imaging: Reviewed Imaging Report Assessment/Plan Admission Diagnosis Severe Sepsis Admission Status: Inpatient Order (span 2 midnights) Reason for Inpatient Admission: Needs IV abx, will take more than two midnight stabilize for DC Diagnosis/Problems Diagnosis/Problems (1) Sepsis Status: Acute Assessment & Plan: Severe sepsis met on admission- now resolved Continue antibiotics Await culture and sensitivity Qualifiers: Sepsis type: sepsis due to unspecified organism Qualified Codes: A41.9 - Sepsis, unspecified organism (2) Urinary tract infection Status: Acute Assessment & Plan: Abx as above Qualifiers: Urinary tract infection type: acute cystitis Hematuria presence: without hematuria Qualified Codes: N30.00 - Acute cystitis without hematuria (3) Hypokalemia Status: Chronic Assessment & Plan: Replaced Will check Mag Clinical Quality Measures DVT/VTE Risk/Contraindication: Risk Factor Score Per Nursin RFS Level Per Nursing on Admit: 1=Low/No VTE PPX JOSE PICKERING MD Mar 20, 2018 11:08 am
[2018-03-20] MEDS ORDERED: KCL 20 MEQ TAB (K-DUR) PO NR (11:15)
[2018-03-21] VITALS: BP 115/56
[2018-03-21 04:00] VITALS: BP 103/58
[2018-03-21 07:24] VITALS: BP 120/76
[2018-03-21] MEDS: IBUPROFEN 600 MG (MOTRIN) TAB PO PRN (08:49)
--- NOTE | 2018-03-21 10:07 | Discharge Summary-Hospitalist ---
Diagnosis/Chief Complaint Date of Admission Mar 19, 2018 at 5:23 pm Date of Discharge Discharge Date: Mar 21, 2018 Admission Diagnosis Severe Sepsis Discharge Diagnosis (1) Sepsis Status: Resolved Assessment & Plan: Severe Sepsis on arrival now resolved Will dc home on oral antibiotics per sensitivity (2) Urinary tract infection Status: Acute Assessment & Plan: Abx as above (3) Hypokalemia Status: Chronic Assessment & Plan: Replaced Will check Mag Discharge Summary Discharge Physical Exam Allergies: Coded Allergies: ciprofloxacin (Unverified Allergy, Unknown, 05/29/17) Vitals & I&Os Vital Signs Date Time Temp Pulse Resp B/P (MAP) Pulse Ox O2 Delivery O2 Flow Rate FiO2 03/21/18 11:35 88 18 120/76 99 Room Air 03/21/18 07:24 97.6 General Appearance: No Apparent Distress, WD/WN Cardiovascular: Regular Rate, Rhythm, No Murmur Gastrointestinal: Normal Bowel Sounds, Soft Neurologic/Psychiatric: Alert, Oriented x3 Hospital Course Pt was admitted for severe sepsis from UTI. She was started on Rocephin and responded well. Her urine culture grew e coli and blood cultures were negative. She was discharged home to complete oral antibiotics, Keflex, and to follow up with [facility] to follow up this hospital stay. Labs (last 24 hrs) Microbiology 03/19/18 Blood Culture - Preliminary, Resulted No growth 03/19/18 Influenza Types A,B Antigen (SHAYNA) - Final, Complete 03/19/18 Urine Culture - Final, Complete Escherichia coli Patient resulted labs reviewed. Imaging: Reviewed Imaging Report Discussion & Recommendations Discharge Planning: >30 minutes discharge planning Discharge Home Medications: Active Scripts Active Keflex (Cephalexin) 500 Mg Capsule 500 Mg PO BID Instructions to patient/family Please see electronic discharge instructions given to patient. Clinical Quality Measures DVT/VTE Risk/Contraindication: Risk Factor Score Per Nursin RFS Level Per Nursing on Admit: 1=Low/No VTE PPX Copy Copies To 1: [facility] Problem Qualifiers (1) Sepsis: Sepsis type: sepsis due to unspecified organism Qualified Codes: A41.9 - Sepsis, unspecified organism (2) Urinary tract infection: Urinary tract infection type: acute cystitis Hematuria presence: without hematuria Qualified Codes: N30.00 - Acute cystitis without hematuria JOSE RUIZ MD Mar 21, 2018 10:07
[2018-03-21] MEDS ORDERED: CEFD300C3 PO (10:08)
[2018-03-21] MEDS ORDERED: CEPH-507 PO (10:10)
--- NOTE | 2018-03-21 10:13 | Discharge Inst-Simple/Standard ---
Discharge Inst-Standard Discharge Medications New, Converted or Re-Newed RX: Transmitted to Pharmacy Patient Instructions/Follow Up Plan of Care/Instructions/FU: Please continue to take your medications as written. please finish your anitbiotic even if you feel better. You can take a probiotic with your antibiotic to help prevent diarrhea. [facility] with [facility] to [facility] care. Activity as Tolerated: Yes Discharge Diet: No Restrictions Return to The Hospital For: Fever, abd pain, nausea, vomiting, if you feel you are getting worse. JOSE RUIZ MD Mar 21, 2018 10:13 am
[2018-03-21] MEDS ORDERED: CEPHALEXIN 250 MG (KEFLEX) CAP PO NR (10:30)
[2018-03-21 11:35] VITALS: BP 120/76
== END 2018-03-21 11:50 | disposition home or self-care (01) | DRG 872 ==
LOC: EDUNIT# 15:49 → ER 15:50 → 4TH 17:23
PROVIDERS: ADMIT Family Medicine; ATTEND Family Medicine
DX: A41.9 Sepsis, unspecified organism (principal); N30.00 Acute cystitis without hematuria; R07.89 Other chest pain; H93.92 Unspecified disorder of left ear; E87.6 Hypokalemia; M79.10 Myalgia, unspecified site; F17.210 Nicotine dependence, cigarettes, uncomplicated; M41.9 Scoliosis, unspecified; Z87.19 Personal history of other diseases of the digestive system
CPT/HCPCS: 36415; 71045; 80053; 81000; 83605; 83735; 85007; 85025; 85027; 85610; 85730; 87040; 87077; 87088; 87186; 87804

== ENCOUNTER 2018-05-24 15:09 | Inpatient (IN) | payer MEDICAID ==
[~2018-05-24] VITALS: Ht 160 cm; Wt 53.2 kg
[~2018-05-24 15:09] MED LIST changes: +CEFD300C3 PO; +CEPH-507 PO
--- OUTSIDE RECORDS SUMMARY | 2018-05-24 15:15 | XMS REPORT | Continuity of Care Document ---
Author Author [facility] Organization [facility] Address Unknown Phone Unavailable Allergies Active Description Code Type Severity Reaction Onset Reported/Identified Relationship to Patient Clinical Status Yes CIPRO MODERATE DERMATOLOGICAL - HIV Yes No Known Drug Allergies [id number] Drug Allergy Unknown N/A 09/22/2007 Yes ciprofloxacin ciprofloxacin Drug Allergy Unknown unknown 07/31/2016 Yes ciprofloxacin [id number] Drug Allergy Unknown N/A 05/29/2017 Medications Medication [...] A D50.9 IRON DEFICIENCY ANEMIA, UNSPECIFIED 11/20/2017 BrownLeon W D64.9 ANEMIA, UNSPECIFIED 11/20/2017 Leon Naik W H65.02 ACUTE SEROUS OTITIS MEDIA, LEFT EAR 11/20/2017 Leon Naik W H66.42 SUPPURATIVE OTITIS MEDIA, UNSPECIFIED, LEFT EAR 11/20/2017 Leon Naik W R42 DIZZINESS AND GIDDINESS 12/01/2017 IRISH ECKERT Ot F12.10 CANNABIS ABUSE, UNCOMPLICATED 12/01/2017 IRISH ECKERT Ot 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 STIMULANT ABUSE, UNCOMPLICATED 12/01/2017 IRISH ECKERT Ot F17.210 NICOTINE DEPENDENCE, CIGARETTES, UNCOMPL 12/01/2017 IRISH ECKERT Ot S60.222A CONTUSION OF LEFT HAND, INITIAL ENCOUNTE 12/01/2017 IRISH ECKERT Ot S69.92XA UNSP INJURY OF LEFT WRIST, HAND AND FING 12/01/2017 IRISH ECKERT Ot W22.03XA WALKED INTO FURNITURE, INITIAL ENCOUNTER 12/01/2017 IRISH ECKERT Ot Z87.19 PERSONAL HISTORY OF OTHER DISEASES OF TH 12/01/2017 IRISH ECKERT Ot Z87.59 PERSONAL HISTORY OF COMP OF PREG, CHLDBR 12/01/2017 IRISH ECKERT Ot Z88.1 ALLERGY STATUS TO OTHER ANTIBIOTIC AGENT 12/01/2017 IRISH ECKERT Ot Z90.89 ACQUIRED ABSENCE OF OTHER ORGANS 12/03/2017 IRISH ECKERT Ot F12.10 CANNABIS ABUSE, [...] Z90.89 ACQUIRED ABSENCE OF OTHER ORGANS 01/29/2018 [facility] JAYY SANTACRUZ Ot F17.210 NICOTINE DEPENDENCE, CIGARETTES, UNCOMPL 01/29/2018 [facility], JAYY D Ot N61.1 ABSCESS OF THE BREAST AND NIPPLE 02/02[facility] NICOTINE DEPENDENCE, CIGARETTES, UNCOMPL 02/02/[facility] N61.1 ABSCESS OF THE BREAST AND NIPPLE 03/20/2018 JOSE RUIZ MD Ot A41.9 SEPSIS, UNSPECIFIED ORGANISM 03/20/2018 JOSE RUIZ MD, Ot F17.210 NICOTINE DEPENDENCE, CIGARETTES, UNCOMPL 03/20/2018 JOSE RUIZ MD Ot H93.92 UNSPECIFIED DISORDER OF LEFT EAR 03/20/2018 JOSE RUIZ MD Ot M41.9 SCOLIOSIS, UNSPECIFIED 03/20/2018 JOSE RUIZ MD Ot M54.9 DORSALGIA, UNSPECIFIED 03/20/2018 JOSE RUIZ MD Ot M79.10 MYALGIA, UNSPECIFIED SITE 03/20/2018 JOSE RUIZ MD Ot N30.00 ACUTE CYSTITIS WITHOUT HEMATURIA 03/20/2018 JOSE RUIZ MD Ot R07.89 OTHER CHEST PAIN 03/20/2018 JOSE RUIZ MD Ot R11.0 NAUSEA 03/20/2018 JOSE RUIZ MD Ot Z87.19 PERSONAL HISTORY OF OTHER DISEASES OF TH 03/20/2018 JOSE RUIZ MD, Ot A41.9 SEPSIS, UNSPECIFIED ORGANISM 03/20/2018 JOSE RUIZ MD Ot F17.210 NICOTINE DEPENDENCE, CIGARETTES, UNCOMPL 03/20/2018 JOSE RUIZ MD Ot H93.92 UNSPECIFIED DISORDER OF LEFT EAR 03/20/2018 JOSE RUIZ MD, Ot M41.9 SCOLIOSIS, UNSPECIFIED 03/20/2018 JOSE RUIZ MD Ot M54.9 DORSALGIA, UNSPECIFIED 03/20/2018 JOSEPH MD, JOSE M Ot M79.10 MYALGIA, UNSPECIFIED SITE 03/20/2018 JOSE RUIZ MD Ot N30.00 ACUTE CYSTITIS WITHOUT HEMATURIA 03/20/2018 JOSE RUIZ MD Ot R07.89 OTHER CHEST PAIN 03/20/2018 JOSE RUIZ MD Ot R11.0 NAUSEA 03/20/2018 JOSE RUIZ MD Ot Z87.19 PERSONAL HISTORY OF OTHER DISEASES OF TH 03/20/2018 JOSE RUIZ MD Ot A41.9 SEPSIS, UNSPECIFIED ORGANISM 03/20/2018 JOSE RUIZ MD Ot F17.210 NICOTINE DEPENDENCE, CIGARETTES, UNCOMPL 03/20/2018 JOSE RUIZ MD Ot H93.92 UNSPECIFIED DISORDER OF LEFT EAR 03/20/2018 JOSE RUIZ MD Ot M41.9 SCOLIOSIS, UNSPECIFIED 03/20/2018 JOSE RUIZ MD Ot M54.9 DORSALGIA, UNSPECIFIED 03/20/2018 JOSE RUIZ MD Ot M79.10 MYALGIA, UNSPECIFIED SITE 03/20/2018 JOSE RUIZ MD Ot N30.00 ACUTE CYSTITIS WITHOUT HEMATURIA 03/20/2018 JOSE RUIZ MD Ot R07.89 OTHER CHEST PAIN 03/20/2018 JOSE RUIZ MD Ot R11.0 NAUSEA 03/20/2018 JOSE RUIZ MD Ot Z87.19 PERSONAL HISTORY OF OTHER DISEASES OF TH 03/21/2018 JOSE RUIZ MD Ot A41.9 SEPSIS, UNSPECIFIED ORGANISM 03/21/2018 JOSE RUIZ MD Ot E87.6 HYPOKALEMIA 03/21/2018 JOSE RUIZ MD Ot F17.210 NICOTINE DEPENDENCE, CIGARETTES, UNCOMPL 03/21/2018 JOSE RUIZ MD Ot H93.92 UNSPECIFIED DISORDER OF LEFT EAR 03/21/2018 JOSE RUIZ MD Ot M41.9 SCOLIOSIS, UNSPECIFIED 03/21/2018 JOSE RUIZ MD Ot M54.9 DORSALGIA, UNSPECIFIED 03/21/2018 JOSE RUIZ MD Ot M79.10 MYALGIA, UNSPECIFIED SITE 03/21/2018 JOSE RUIZ MD Ot N30.00 ACUTE CYSTITIS WITHOUT HEMATURIA 03/21/2018 JOSE RUIZ MD Ot R07.89 OTHER CHEST PAIN 03/21/2018 JOSE RUIZ MD Ot R11.0 NAUSEA 03/21/2018 JOSE RUIZ MD Ot Z87.19 PERSONAL HISTORY OF OTHER DISEASES OF TH Procedures There is no data. <section xmlns="urn:hl7-org:v3" xmlns:xsi="http:// www.Stylr3.org/2001/XMLSchema-instance"> <templateId root= "[id number]" /> <templateId root= "[id number]" /> <code codeSystemName="LOINC" codeSystem= "[id number]" code="60406-1" displayName="Results" /> <title>Results< /title> <text> <table> <thead> [...] </tr> <tr> < colspan="10"> UA MICROSCOPIC - 01/01/15 09:40</th> </tr> [...] </tr> <tr> <th colspan="10"> UA MICROSCOPIC - 01/04/15 10:10</th> </tr> [...] wbc/hpf</td> <td>0 - 5</td> </ tr> <tr> <th colspan="10">CBC W/DIFF - 09/06/16 13:55</th> </tr> <tr> [...] </td> < td> </td> </tr> <tr> <td>Urine-Specific Mcclelland</td> <td>1.020 </td> <td>1.000-1.030</td> </tr> <tr> <td>Urine-WBC</td> <td>2-5/HPF </td> <td> </td> </tr> <tr> <td>Urobilinogen</td> <td>0.2 </td> <td>0.2-1.0</td> </tr> <tr> <th colspan="10">[facility] 22:55</th> </tr> <tr> <td>CROSSMATCH</td > <td>COMPATIBLE X 2 </td> <td /> </tr> <tr> <td>Hct</td> <td>26.9 %</td> <td>36.0-46.0</td> </tr> <tr> <td>Hgb</td> <td>7.6 g/dL</td> <td>13.0-15.0</td> </tr> <tr> <th colspan="10"> Leukoreduced Packed RBC Unit Checkout - 03/28/17 01:25</th> </tr> <tr> <td>[facility] Checkout</td> <td>Checked Out. </td> <td /> </tr> [...] </tr> <tr> <td> Surg Path</td> <td>Sent to [facility] </td> <td /> </tr> <tr> < colspan="10">IFOBT Occult Blood - 03/28/17 13 :25</th> </tr> <tr> <td>IFOBT Occult Blood</td> <td>NEGATIVE </td> <td>Negative</td> </tr> <tr> < colspan="10">HH - 03/28/17 16:00</th> </tr> <tr> <td> Hct</td> <td>31.7 %</td> <td>36.0-46.0</td> </tr> <tr> <td>Hgb</td> <td>9.4 g/dL</td> <td>13.0- 15.0</td> </tr> <tr> < colspan="10">[facility]OBT Occult Blood - 03/28/17 16:11</th> </tr> <tr> <td>IFOBT Occult Blood</ td> <td>NEGATIVE </td> <td>Negative</td> </tr> < tr> < colspan="10">CBC with Auto Diff - 03/31/17 13:13</th> [...] > <td>MCV</td> <td>73.4 fL</td> <td>80.0-97.0</td> </tr> <tr> <td>Rutherford%</td> <td>7.6 %</td> <td>0.0-12.0</td> </tr> <tr> <td>MPV</td> <td>11.1 fL</td> <td>7.4-10.0</td> </tr> <tr> <td>Julianne%</td> <td>60.2 %</td> <td>37.0-80.0</td> </tr> <tr> <td>Plt</td> <td>222 K/uL</td> <td>150-400</td> </tr> <tr> <td>RBC</td> <td >4.67 M/uL</td> <td>3.60-5.00</td> </tr> <tr> < td>RDW</td> <td>22.7 %</td> <td>11.6-14.8</td> </tr > <tr> <td>WBC</td> <td>7.36 K/uL</td> <td> 5.00-10.00</td> </tr> <tr> <td>Julianne</td> <td> 4.43 K/uL</td> <td>2.00-6.90</td> </tr> <tr> <td >Rutherford</td> <td>0.6 K/uL</td> <td>0.0-0.9</td> </tr> <tr> <td>Baso</td> <td>0.1 [...] <td>FEW RAMIRO URATES </td> <td>NRG</td> </tr> <tr> < colspan="10">Urine drug screening test - 02:40</th> </tr> [...] (mass/volume)</td > <td>4.2 g/dL</td> <td>3.2-4.5</td> </tr> <tr> < colspan="10">Lipase - 05/29/17 02:49</th> </tr> <tr > <td>Lipase</td> <td>42 U/L</td> <td>8-78</td> </tr> <tr> < colspan="10">Serum or plasma ethanol measurement (mass/volume) - 05/29/17 02:49</th> </tr> <tr> <td>Serum or plasma ethanol measurement (mass/volume)</td> <td>< mg/dL</td> <td><10</td> </tr> <tr> < colspan="10">Comprehensive Metabolic Panel - 11/19/17 20:35</th> </tr> [...] <td> 7.00-31.40</td> </tr> <tr> <th colspan="10">XM (2) [facility] - 11/19/17 21:50</th> </tr> <tr> <td>CROSSMATCH</td> <td>COMPATIBLE [...] (count/volume)</td> <td>0.0 10*3/uL</td > <td>0.0-0.1</td> </tr> <tr> <th colspan="10"> Whole blood basic metabolic panel - [...] culture</td> <td>NG </td> <td>NRG</td> </tr> <tr > < colspan="10">Urine drug screening test - 01/29/18 14:20</th> [...] </tr> <tr> <td>Gram stain microscopy< /td> <td>REPORTED 01-30-2018,06. </td> <td>NRG</td> </ tr> <tr> <th colspan="10">Bacteria identification in wound by culture - 01/29/18 16:37</th> </tr> <tr> <td>Bacteria identification in wound by culture</td> <td>SEE REPORT </td> < td>NRG</td> </tr> <tr> <td>FREE TEXT EXTERNAL</td> <td>METHICILLIN-RESISTANT STAPH AUREUS </td> <td>NRG</td> </ tr> <tr> <td>QUANTITY OF GROWTH</td> <td>. </td> <td>NRG</td> </tr> <tr> <th colspan="10">[facility] Sensitivity Panel - 01/29/18 16:37</th> </tr> <tr> [...] to culture</td> <td>YES </td> <td>NRG</td> </tr> <tr> <th colspan="10">Bacterial urine culture - 03/19/18 15:50</th> </tr> <tr> <td>Bacterial urine culture</td> <td> [id number] </td> <td>NRG</td> </tr> <tr> <td> COLONY COUNT</td> <td>>100,000/ML </td> <td>NRG</td> </tr> <tr> <td>FTX;REPORTABLE</td> <td> SUSCEPTIBILITY REPORTED 03-21-2018,1005 </td> <td>NRG</td> </tr > <tr> <th colspan="10">[facility] Sensitivity Panel - 03/19/18 15:50</ th> </tr> <tr> <td>Gentamicin susceptibility test by minimum inhibitory concentration</td> <td><=</td> <td>NRG</ td> </tr> <tr> <td>Trimethoprim/sulfamethoxazole susceptibility test by minimum inhibitoryconcentration</td> <td>> </ td> <td>NRG</td> </tr> <tr> <td>Levofloxacin susceptibility test by minimum inhibitory concentration</td> <td><=< /td> <td>NRG</td> </tr> <tr> <td>Ampicillin susceptibility test by minimum inhibitory concentration</td> <td>> < /td> <td>NRG</td> </tr> <tr> <td>Cefazolin susceptibility test by minimum inhibitory concentration</td> <td>2 </td > <td>NRG</td> </tr> <tr> <td>Ceftriaxone susceptibility test by minimum inhibitory concentration</td> <td><=< /td> <td>NRG</td> </tr> <tr> <td>Ciprofloxacin susceptibility test by minimum inhibitory concentration</td> <td><=< /td> <td>NRG</td> </tr> <tr> <td>Meropenem susceptibility test by minimum inhibitory concentration</td> <td><=< /td> <td>NRG</td> </tr> <tr> <td>Nitrofurantoin susceptibility test by minimum inhibitory concentration</td> <td><=< /td> <td>NRG</td> </tr> <tr> <td>Amoxicillin and clavulanate potassium susc SHAYNA</td> <td>=</td> <td>NRG</td > </tr> <tr> <th colspan="10">Complete blood count (CBC) with automated white blood cell (WBC) differential - 03/19/18 16:10</th> </tr> <tr> <td>Blood leukocytes automated count (number/volume)< /td> <td>18.7 10*3/uL</td> <td>4.3-11.0</td> </tr> <tr> <td>Blood erythrocytes automated count (number/volume)</td> <td>4.35 10*6/uL</td> <td>4.35-5.85</td> </tr> < tr> <td>Venous blood hemoglobin measurement (mass/volume)</td> <td>10.7 g/dL</td> <td>11.5-16.0</td> </tr> <tr> <td>Blood hematocrit (volume fraction)</td> <td>33 %</td> <td>35-52</td> </tr> <tr> <td>Automated erythrocyte mean corpuscular volume</td> <td>75 [foz_us]</td> <td>80-99</ td> </tr> <tr> <td>Automated erythrocyte mean corpuscular hemoglobin (mass per erythrocyte)</td> <td>25 pg</td> <td>25-34</td> </tr> <tr> <td>Automated erythrocyte mean corpuscular hemoglobin concentration measurement (mass/volume)</td> <td>33 g/dL</td> <td>32-36</td> </tr> <tr> < td>Automated erythrocyte distribution width ratio</td> <td>21.0 %</ td> <td>10.0-14.5</td> </tr> <tr> <td>Automated blood platelet count [...] (moles/ volume)</td> <td>2.13 mmol/L</td> <td>0.50-2.00</td> </ tr> <tr> <th colspan="10">Bacterial blood culture - 03/19/18 16: 10</th> </tr> <tr> <td>Bacterial blood culture</td> <td>NG </td> <td>NRG</td> </tr> <tr> <th colspan="10">Bacterial blood culture - 03/19/18 16:20</th> </tr> < tr> <td>Bacterial blood culture</td> <td>NG </td> <td >NRG</td> </tr> <tr> <th colspan="10">Influenza virus A and B antigen detection - 03/19/18 16:30</th> </tr> <tr> <td>FLU RESULT</td> <td>NEGATIVE FOR INFLUENZA A AND B ANTIGENS BY IA < /td> <td>NRG</td> </tr> <tr> <th colspan="10"> Serum or plasma lactate measurement (moles/volume) - 03/19/18 18:13</th> </tr> <tr> <td>Serum or plasma lactate measurement (moles/volume )</td> <td>0.83 mmol/L</td> <td>0.50-2.00</td> </tr> <tr> <th colspan="10">Complete blood count (CBC) with automated white blood cell (WBC) differential - 03/20/18 06:10</th> </tr> < tr> <td>Blood leukocytes automated count (number/volume)</td> <td>12.7 10*3/uL</td> <td>4.3-11.0</td> </tr> <tr> <td>Blood erythrocytes automated count (number/volume)</td> <td> 3.41 10*6/uL</td> <td>4.35-5.85</td> </tr> <tr> <td>Venous blood hemoglobin measurement (mass/volume)</td> <td>8.3 g/dL </td> <td>11.5-16.0</td> </tr> <tr> <td>Blood hematocrit (volume fraction)</td> <td>26 %</td> <td>35-52< /td> </tr> <tr> <td>Automated erythrocyte mean corpuscular volume</td> <td>77 [foz_us]</td> <td>80-99</td> </tr> <tr> <td>Automated erythrocyte mean corpuscular hemoglobin (mass per erythrocyte)</td> <td>24 pg</td> <td>25- 34</td> </tr> <tr> <td>Automated erythrocyte mean corpuscular hemoglobin concentration measurement (mass/volume)</td> <td >31 g/dL</td> <td>32-36</td> </tr> <tr> <td> Automated erythrocyte distribution width ratio</td> <td>19.9 %</td > <td>10.0-14.5</td> </tr> <tr> <td>Automated blood platelet count (count/volume)</td> <td>222 10*3/uL</td> <td>130-400</td> </tr> <tr> <td>Automated blood platelet mean volume measurement</td> <td>11.0 [foz_us]</td> <td>7.4- 10.4</td> </tr> <tr> <td>Automated blood neutrophils/100 leukocytes</td> <td>87 %</td> <td>42-75</td> </tr> <tr> <td>Automated blood lymphocytes/100 leukocytes</td> <td>5 %</td> <td>12-44</td> </tr> <tr> < td>Blood monocytes/100 leukocytes</td> <td>7 %</td> <td>0- 12</td> </tr> <tr> <td>Automated blood eosinophils/100 leukocytes</td> <td>0 %</td> <td>0-10</td> </tr> <tr> <td>Automated blood basophils/100 leukocytes</td> < td>0 %</td> <td>0-10</td> </tr> <tr> <td> Blood neutrophils automated count (number/volume)</td> <td>11.1 10*3</ td> <td>1.8-7.8</td> </tr> <tr> <td>Blood lymphocytes automated count (number/volume)</td> <td>0.7 10*3</td> <td>1.0-4.0</td> </tr> <tr> <td>Blood monocytes automated count (number/volume)</td> <td>0.9 10*3</td> <td>0.0 -1.0</td> </tr> <tr> <td>Automated eosinophil count</td> <td>0.0 10*3/uL</td> <td>0.0-0.3</td> </tr> <tr > <td>Automated blood basophil count (count/volume)</td> <td> 0.0 10*3/uL</td> <td>0.0-0.1</td> </tr> <tr> < colspan="10">Comprehensive metabolic panel - 03/20/18 06:10</th> </tr > <tr> <td>Serum or plasma sodium measurement (moles/volume)</td > <td>137 mmol/L</td> <td>135-145</td> </tr> <tr > <td>Serum or plasma potassium measurement (moles/volume)</td> <td>2.9 mmol/L</td> <td>3.6-5.0</td> </tr> <tr> <td>Serum or plasma chloride measurement (moles/volume)</td> <td> 113 mmol/L</td> <td>98-107</td> </tr> <tr> <td> Carbon dioxide</td> <td>18 mmol/L</td> <td>21-32</td> < /tr> <tr> <td>Serum or plasma anion gap determination (moles/ volume)</td> <td>6 mmol/L</td> <td>5-14</td> </tr> <tr> <td>Serum or plasma urea nitrogen measurement (mass/volume)</ td> <td>12 mg/dL</td> <td>7-18</td> </tr> <tr> <td>Serum or plasma creatinine measurement (mass/volume)</td> <td>0.68 mg/dL</td> <td>0.60-1.30</td> </tr> <tr> <td>Serum or plasma urea nitrogen/creatinine mass ratio</td> <td>18 </td> <td>NRG</td> </tr> <tr> <td>Serum or plasma creatinine measurement with calculation of estimated glomerular filtration rate</td> <td>> </td> <td>NRG</td> </tr> <tr> <td>Serum or plasma glucose measurement (mass/volume)</td > <td>108 mg/dL</td> <td>70-105</td> </tr> <tr> <td>Serum or plasma calcium measurement (mass/volume)</td> < td>7.8 mg/dL</td> <td>8.5-10.1</td> </tr> <tr> < td>Serum or plasma total bilirubin measurement (mass/volume)</td> <td> 0.5 mg/dL</td> <td>0.1-1.0</td> </tr> <tr> <td> Serum or plasma alkaline phosphatase measurement (enzymatic activity/volume)</td > <td>62 U/L</td> <td>40-136</td> </tr> <tr> <td>Serum or plasma aspartate aminotransferase measurement (enzymatic activity/volume)</td> <td>15 U/L</td> <td>5-34</td> </ tr> <tr> <td>Serum or plasma alanine aminotransferase measurement (enzymatic activity/volume)</td> <td>12 U/L</td> < td>0-55</td> </tr> <tr> <td>Serum or plasma protein measurement (mass/volume)</td> <td>4.7 g/dL</td> <td>6.4-8.2</ td> </tr> <tr> <td>Serum or plasma albumin measurement ( mass/volume)</td> <td>2.8 g/dL</td> <td>3.2-4.5</td> </ tr> <tr> <td>CALCIUM CORRECTED</td> <td>8.8 mg/dL</td> <td>8.5-10.1</td> </tr> <tr> <th colspan="10"> Magnesium - 03/20/18 06:10</th> </tr> <tr> <td>Magnesium< /td> <td>1.5 mg/dL</td> <td>1.8-2.4</td> </tr> </ tbody> </table> </text> <entry> <organizer moodCode="EVN" classCode= "BATTERY"> <templateId root="[id number]" /> <id nullFlavor="NA" /> <code codeSystem="local" code="UA" displayName= "URINALYSIS, ROUTINE" /> <statusCode code="completed" /> <component> <observation moodCode="EVN" classCode="OBS"> <templateId root= "[id number]" /> <id nullFlavor="NA" /> < code codeSystem="local" code="LEUESU" displayName="UA LEUKOCYTE ESTERASE DIPSTICK" /> <statusCode code="completed" /> <effectiveTime value="[id number]" /> <value unit="" xsi:type="PQ" value="2+" /> <interpretationCode codeSystem="local" code="*" /> < referenceRange> <observationRange> <text>NEGATIVE</text > </observationRange> </referenceRange> </observation > </component> <component> <observation moodCode="EVN" classCode="OBS"> <templateId root="[id number]" /> <id nullFlavor="NA" /> <code codeSystem="local" code="NITRIU" displayName="UA NITRITE DIPSTICK" /> <statusCode code="completed" /> <effectiveTime value="[id number]" /> <value unit="" xsi:type= "PQ" value="POSITIVE" /> <interpretationCode codeSystem="local" code="* " /> <referenceRange> <observationRange> <text> NEGATIVE</text> </observationRange> </referenceRange> </observation> </component> <component> <observation moodCode ="EVN" classCode="OBS"> <templateId root= "[id number]" /> <id nullFlavor="NA" /> < code codeSystem="local" code="PROTEIU" displayName="UA PROTEIN DIPSTICK" /> <statusCode code="completed" /> <effectiveTime value= "[id number]" /> <value unit="" xsi:type="PQ" value="1+" /> < interpretationCode codeSystem="local" code="*" /> <referenceRange> <observationRange> <text>NEGATIVE</text> </ observationRange> </referenceRange> </observation> </ component> <component> <observation moodCode="EVN" classCode="OBS"> <templateId root="[id number]" /> <id nullFlavor="NA" /> <code codeSystem="local" code="DGLUU" displayName= "UA GLUCOSE DIPSTICK" /> <statusCode code="completed" /> < effectiveTime value="[id number]" /> <value unit="" xsi:type="PQ" value="NEGATIVE" /> <referenceRange> <observationRange> <text>NEGATIVE</text> </observationRange> </ referenceRange> </observation> </component> <component> <observation moodCode="EVN" classCode="OBS"> <templateId root= "[id number]" /> <id nullFlavor="NA" /> < code codeSystem="local" code="KETONU" displayName="UA KETONE DIPSTICK" /> <statusCode code="completed" /> <effectiveTime value=" " /> <value unit="" xsi:type="PQ" value="NEGATIVE" /> < referenceRange> <observationRange> <text>NEGATIVE</text > </observationRange> </referenceRange> </observation > </component> <component> <observation moodCode="EVN" classCode="OBS"> <templateId root="[id number]" /> <id nullFlavor="NA" /> <code codeSystem="local" code="UROBILU " displayName="UA UROBILINOGEN DIPSTICK" /> <statusCode code="completed " /> <effectiveTime value="" /> <value unit="" xsi :type="PQ" value="NORMAL" /> <referenceRange> < observationRange> <text>NORMAL</text> </observationRange > </referenceRange> </observation> </component> < component> <observation moodCode="EVN" classCode="OBS"> < templateId root="[id number]" /> <id nullFlavor="NA " /> <code codeSystem="local" code="BILU" displayName="UA BILIRUBIN DIPSTICK" /> <statusCode code="completed" /> <effectiveTime value="" /> <value unit="" xsi:type="PQ" value="NEGATIVE" / > <referenceRange> <observationRange> <text> NEGATIVE</text> </observationRange> </referenceRange> </observation> </component> <component> <observation moodCode ="EVN" classCode="OBS"> <templateId root= "[id number]..4.2" /> <id nullFlavor="NA" /> < code codeSystem="local" code="NOLVIA" displayName="UA BLOOD DIPSTICK" /> < statusCode code="completed" /> <effectiveTime value="" /> <value unit="" xsi:type="PQ" value="TRACE" /> < interpretationCode codeSystem="local" code="*" /> <referenceRange> <observationRange> <text>NEGATIVE</text> </ observationRange> </referenceRange> </observation> </ component> <component> <observation moodCode="EVN" classCode="OBS"> <templateId root="[id number]" /> <id nullFlavor="NA" /> <code codeSystem="local" code="SPGRU" displayName= "UA SPECIFIC GRAVITY" /> <statusCode code="completed" /> < effectiveTime value="" /> <value unit="" xsi:type="PQ" value="1.015" /> <referenceRange> <observationRange> <text>1.015-1.025</text> </observationRange> </ referenceRange> </observation> </component> <component> <observation moodCode="EVN" classCode="OBS"> <templateId root= "[id number]..4.2" /> <id nullFlavor="NA" /> < code codeSystem="local" code="DIETER" displayName="UR PH" /> <statusCode code="completed" /> <effectiveTime value="" /> < value unit="" xsi:type="PQ" value="6.0" /> <referenceRange> <observationRange> <text>5.0-7.0</text> </ observationRange> </referenceRange> </observation> </ component> <component> <observation moodCode="EVN" classCode="OBS"> <templateId root="[id number]" /> <id nullFlavor="NA" /> <code codeSystem="local" code="MB" displayName= "Microbiology" /> <statusCode code="completed" /> < effectiveTime value="[id number]" /> <value unit="" xsi:type="PQ" value="" /> <referenceRange> <observationRange> <text /> </observationRange> </referenceRange> </ observation> </component> </organizer> </entry> <entry> <organizer moodCode="EVN" classCode="BATTERY"> <templateId root= "[id number].1" /> <id nullFlavor="NA" /> <code codeSystem="local" code="UAMICRO" displayName="UA MICROSCOPIC" /> < statusCode code="completed" /> <component> <observation moodCode= "EVN" classCode="OBS"> <templateId root="[id number] " /> <id nullFlavor="NA" /> <code codeSystem="local" code= "EPIU" displayName="UA EPITHELIAL CELLS" /> <statusCode code="completed " /> <effectiveTime value="[id number]" /> <value unit="epi/ hpf" xsi:type="PQ" value="2+" /> <interpretationCode codeSystem="local " code="*" /> <referenceRange> <observationRange> <text>0 - 1+</text> </observationRange> </referenceRange > </observation> </component> <component> <observation moodCode="EVN" classCode="OBS"> <templateId root= "[id number]..4.2" /> <id nullFlavor="NA" /> < code codeSystem="local" code="RBCU" displayName="UA RBC" /> < statusCode code="completed" /> <effectiveTime value="" /> <value unit="rbc/hpf" xsi:type="PQ" value="0" /> < referenceRange> <observationRange> <text>0 - 3</text> </observationRange> </referenceRange> </observation> </component> <component> <observation moodCode="EVN" classCode= "OBS"> <templateId root="[id number].2" /> < id nullFlavor="NA" /> <code codeSystem="local" code="UAVOL" displayName ="UA VOLUME FOR EXAM" /> <statusCode code="completed" /> < effectiveTime value="" /> <value unit="mL" xsi:type="PQ" value="12.0" /> <referenceRange> <observationRange> <text>(12mL STD)</text> </observationRange> </ referenceRange> </observation> </component> <component> <observation moodCode="EVN" classCode="OBS"> <templateId root= "[id number]" /> <id nullFlavor="NA" /> < code codeSystem="local" code="WBCU" displayName="UA WBC" /> < statusCode code="completed" /> <effectiveTime value="" /> <value unit="wbc/hpf" xsi:type="PQ" value="20-50" /> < interpretationCode codeSystem="local" code="*" /> <referenceRange> <observationRange> <text>0 - 5</text> </ observationRange> </referenceRange> </observation> </ component> <component> <observation moodCode="EVN" classCode="OBS"> <templateId root="16.840.1.137786.02.28.22.4.2" /> <id nullFlavor="NA" /> <code codeSystem="local" code="WBCCLUMPS" displayName="WBC CLUMPS" /> <statusCode code="completed" /> < effectiveTime value="683597607673" /> <value unit="" xsi:type="PQ" value="PRESENT" /> <interpretationCode codeSystem="local" code="*" /> <referenceRange> <observationRange> <text> NEGATIVE</text> </observationRange> </referenceRange> </observation> </component> </organizer> </entry> <entry> < organizer moodCode="EVN" classCode="BATTERY"> <templateId root= "06.27.840.1.772852.02.28.22.4.1" /> <id nullFlavor="NA" /> <code codeSystem="local" code="PREGU" displayName="UR TEST" /> < statusCode code="completed" /> <component> <observation moodCode= "EVN" classCode="OBS"> <templateId root="06.27.840.1.723493.02.28.22.4.2 " /> <id nullFlavor="NA" /> <code codeSystem="local" code= "PREGU" displayName="UR TEST" /> <statusCode code="completed " /> <effectiveTime value="062399746348" /> <value unit="" xsi :type="PQ" value="NEGATIVE" /> <referenceRange> < observationRange> <text>NEGATIVE</text> </ observationRange> </referenceRange> </observation> </ component> <component> <observation moodCode="EVN" classCode="OBS"> <templateId root="16.840.1.836144.10..22.4.2" /> <id nullFlavor="NA" /> <code codeSystem="local" code="MB" displayName= "Microbiology" /> <statusCode code="completed" /> < effectiveTime value="133609514693" /> <value unit="" xsi:type="PQ" value="" /> <referenceRange> <observationRange> <text /> </observationRange> </referenceRange> </ observation> </component> </organizer> </entry> <entry> <organizer moodCode="EVN" classCode="BATTERY"> <templateId root= "16.840.1.063046.10..22.4.1" /> <id nullFlavor="NA" /> <code codeSystem="local" code="PREGU" displayName="UR TEST" /> < statusCode code="completed" /> <component> <observation moodCode= "EVN" classCode="OBS"> <templateId root="16.840.1.637755.10..22.4.2 " /> <id nullFlavor="NA" /> <code codeSystem="local" code= "PREGU" displayName="UR TEST" /> <statusCode code="completed " /> <effectiveTime value="345430032885" /> <value xsi:type= "ST" value="<pre><b>UR TEST</b> NEGATIVE</pre>" /> < referenceRange> <observationRange> <text>NEGATIVE</text > </observationRange> </referenceRange> </observation > </component> <component> <observation moodCode="EVN" classCode="OBS"> <templateId root="06.27.840.1.773689.10...4.2" /> <id nullFlavor="NA" /> <code codeSystem="local" code="MB" displayName="Microbiology" /> <statusCode code="completed" /> <effectiveTime value="515129379049" /> <value xsi:type="ST" value="<pre ><b>UR TEST</b> NEGATIVE</pre>" /> <referenceRange> <observationRange> <text /> </observationRange> </referenceRange> </observation> </component> </organizer> </entry> <entry> <organizer moodCode="EVN" classCode="BATTERY"> < templateId root="06.27.840.1.739470.10..4.1" /> <id nullFlavor="NA" /> <code codeSystem="local" code="UA" displayName="URINALYSIS, ROUTINE" /> <statusCode code="completed" /> <component> <observation moodCode="EVN" classCode="OBS"> <templateId root= "06.27.840.1.666192.10..22.4.2" /> <id nullFlavor="NA" /> < code codeSystem="local" code="LEUESU" displayName="UA LEUKOCYTE ESTERASE DIPSTICK" /> <statusCode code="completed" /> <effectiveTime value="590394906353" /> <value unit="" xsi:type="PQ" value="TRACE" /> <referenceRange> <observationRange> <text> NEGATIVE</text> </observationRange> </referenceRange> </observation> </component> <component> <observation moodCode ="EVN" classCode="OBS"> <templateId root= "06.27.840.1.316757.02.28.22.4.2" /> <id nullFlavor="NA" /> < code codeSystem="local" code="NITRIU" displayName="UA NITRITE DIPSTICK" /> <statusCode code="completed" /> <effectiveTime value="916837123973 " /> <value unit="" xsi:type="PQ" value="NEGATIVE" /> < referenceRange> <observationRange> <text>NEGATIVE</text > </observationRange> </referenceRange> </observation > </component> <component> <observation moodCode="EVN" classCode="OBS"> <templateId root="2.16.840.1.312124.10.4.2" /> <id nullFlavor="NA" /> <code codeSystem="local" code="PROTEIU " displayName="UA PROTEIN DIPSTICK" /> <statusCode code="completed" /> <effectiveTime value="227873817850" /> <value unit="" xsi: type="PQ" value="2+" /> <interpretationCode codeSystem="local" code="* " /> <referenceRange> <observationRange> <text> NEGATIVE</text> </observationRange> </referenceRange> </observation> </component> <component> <observation moodCode ="EVN" classCode="OBS"> <templateId root= "216.840.1.602892.02.28.22.4.2" /> <id nullFlavor="NA" /> < code codeSystem="local" code="DGLUU" displayName="UA GLUCOSE DIPSTICK" /> <statusCode code="completed" /> <effectiveTime value="635704622397 " /> <value unit="" xsi:type="PQ" value="NEGATIVE" /> < referenceRange> <observationRange> <text>NEGATIVE</text > </observationRange> </referenceRange> </observation > </component> <component> <observation moodCode="EVN" classCode="OBS"> <templateId root="2.16.840.1.984803.10..22.4.2" /> <id nullFlavor="NA" /> <code codeSystem="local" code="KETONU" displayName="UA KETONE DIPSTICK" /> <statusCode code="completed" /> <effectiveTime value="160543545131" /> <value unit="" xsi:type= "PQ" value="2+" /> <interpretationCode codeSystem="local" code="*" /> <referenceRange> <observationRange> <text> NEGATIVE</text> </observationRange> </referenceRange> </observation> </component> <component> <observation moodCode ="EVN" classCode="OBS"> <templateId root= "216.840.1.731848.02.28.22.4.2" /> <id nullFlavor="NA" /> < code codeSystem="local" code="UROBILU" displayName="UA UROBILINOGEN DIPSTICK" / > <statusCode code="completed" /> <effectiveTime value= "780458370257" /> <value unit="" xsi:type="PQ" value="2+" /> < referenceRange> <observationRange> <text>NORMAL</text> </observationRange> </referenceRange> </observation> </component> <component> <observation moodCode="EVN" classCode ="OBS"> <templateId root="216.840.1.944735.10...4.2" /> < id nullFlavor="NA" /> <code codeSystem="local" code="BILU" displayName= "UA BILIRUBIN DIPSTICK" /> <statusCode code="completed" /> < effectiveTime value="198310826726" /> <value unit="" xsi:type="PQ" value="1+" /> <interpretationCode codeSystem="local" code="*" /> <referenceRange> <observationRange> <text>NEGATIVE</ text> </observationRange> </referenceRange> </ observation> </component> <component> <observation moodCode= "EVN" classCode="OBS"> <templateId root="216.840.1.292587.10..4.2 " /> <id nullFlavor="NA" /> <code codeSystem="local" code="NOLVIA " displayName="UA BLOOD DIPSTICK" /> <statusCode code="completed" /> <effectiveTime value="649098406317" /> <value unit="" xsi:type= "PQ" value="TRACE" /> <interpretationCode codeSystem="local" code="*" / > <referenceRange> <observationRange> <text> NEGATIVE</text> </observationRange> </referenceRange> </observation> </component> <component> <observation moodCode ="EVN" classCode="OBS"> <templateId root= "06.27.840.1.978200.02.28.22.4.2" /> <id nullFlavor="NA" /> < code codeSystem="local" code="SPGRU" displayName="UA SPECIFIC GRAVITY" /> <statusCode code="completed" /> <effectiveTime value="490101864705 " /> <value unit="" xsi:type="PQ" value="1.015" /> < referenceRange> <observationRange> <text>1.015-1.025</ text> </observationRange> </referenceRange> </ observation> </component> <component> <observation moodCode= "EVN" classCode="OBS"> <templateId root="16.840.1.760346.10..22.4.2 " /> <id nullFlavor="NA" /> <code codeSystem="local" code="DIETER " displayName="UR PH" /> <statusCode code="completed" /> < effectiveTime value="375621048063" /> <value unit="" xsi:type="PQ" value="6.0" /> <referenceRange> <observationRange> <text>5.0-7.0</text> </observationRange> </ referenceRange> </observation> </component> <component> <observation moodCode="EVN" classCode="OBS"> <templateId root= "840.1.932011.10..4.2" /> <id nullFlavor="NA" /> < code codeSystem="local" code="MB" displayName="Microbiology" /> < statusCode code="completed" /> <effectiveTime value="818989473540" /> <value unit="" xsi:type="PQ" value="" /> <referenceRange> <observationRange> <text /> </observationRange> </referenceRange> </observation> </component> </ organizer> </entry> <entry> <organizer moodCode="EVN" classCode="BATTERY"> <templateId root="06.27.840.1.962211.10..4.1" /> <id nullFlavor= "NA" /> <code codeSystem="local" code="UAMICRO" displayName="UA MICROSCOPIC " /> <statusCode code="completed" /> <component> <observation moodCode="EVN" classCode="OBS"> <templateId root= "06.27.840.1.349163.02.28.22.4.2" /> <id nullFlavor="NA" /> < code codeSystem="local" code="BACU" displayName="UA BACTERIA" /> < statusCode code="completed" /> <effectiveTime value="679831473020" /> <value unit="" xsi:type="PQ" value="2+" /> < interpretationCode codeSystem="local" code="*" /> <referenceRange> <observationRange> <text>NEGATIVE</text> </ observationRange> </referenceRange> </observation> </ component> <component> <observation moodCode="EVN" classCode="OBS"> <templateId root="16.840.1.735134.02.28.22.4.2" /> <id nullFlavor="NA" /> <code codeSystem="local" code="EPIU" displayName=" UA EPITHELIAL CELLS" /> <statusCode code="completed" /> < effectiveTime value="133040189287" /> <value unit="epi/hpf" xsi:type= "PQ" value="1+" /> <referenceRange> <observationRange> <text>0 - 1+</text> </observationRange> </ referenceRange> </observation> </component> <component> <observation moodCode="EVN" classCode="OBS"> <templateId root= "840.1.674090.02.28.22.4.2" /> <id nullFlavor="NA" /> < code codeSystem="local" code="MUCUSU" displayName="UA MUCUS" /> < statusCode code="completed" /> <effectiveTime value="925495142400" /> <value unit="" xsi:type="PQ" value="1+" /> <referenceRange> <observationRange> <text>NEG TO 1+</text> </ observationRange> </referenceRange> </observation> </ component> <component> <observation moodCode="EVN" classCode="OBS"> <templateId root="16.840.1.719707.22.4.2" /> <id nullFlavor="NA" /> <code codeSystem="local" code="RBCU" displayName=" UA RBC" /> <statusCode code="completed" /> <effectiveTime value="006635894976" /> <value unit="rbc/hpf" xsi:type="PQ" value="0-3 " /> <referenceRange> <observationRange> <text> 0 - 3</text> </observationRange> </referenceRange> </ observation> </component> <component> <observation moodCode= "EVN" classCode="OBS"> <templateId root="2.16.840.1.570747.10..22.4.2 " /> <id nullFlavor="NA" /> <code codeSystem="local" code= "UAVOL" displayName="UA VOLUME FOR EXAM" /> <statusCode code="completed " /> <effectiveTime value="635548904083" /> <value unit="mL" xsi:type="PQ" value="12.0" /> <referenceRange> < observationRange> <text>(12mL STD)</text> </ observationRange> </referenceRange> </observation> </ component> <component> <observation moodCode="EVN" classCode="OBS"> <templateId root="2.16.840.1.257821.10..22.4.2" /> <id nullFlavor="NA" /> <code codeSystem="local" code="WBCU" displayName=" UA WBC" /> <statusCode code="completed" /> <effectiveTime value="411835687706" /> <value unit="wbc/hpf" xsi:type="PQ" value="10- 20" /> <interpretationCode codeSystem="local" code="*" /> < referenceRange> <observationRange> <text>0 - 5</text> </observationRange> </referenceRange> </observation> </component> </organizer> </entry> <entry> <organizer moodCode="EVN " classCode="BATTERY"> <templateId root="216.840.1.525574.10..22.4.1" / > <id nullFlavor="NA" /> <code codeSystem="local" code="CBCD" displayName="CBC W/DIFF" /> <statusCode code="completed" /> <component > <observation moodCode="EVN" classCode="OBS"> <templateId root= "216.840.1.888957.10..22.4.2" /> <id nullFlavor="NA" /> < code codeSystem="local" code="CBCCOM" displayName="COMMENT" /> < statusCode code="completed" /> <effectiveTime value="063765765113" /> <value xsi:type="ST" value="<pre><b>CBC W/DIFF</b> 6..932.067.821.030.922.9947945535..4NOTEDREVIEWED</pre>" /> <referenceRange> <observationRange> <text /> </observationRange> </referenceRange> </observation> </ component> <component> <observation moodCode="EVN" classCode="OBS"> <templateId root="2.16.840.1.219060.10..22.4.2" /> <id nullFlavor="NA" /> <code codeSystem="local" code="GR#" displayName= "GRANULOCYTE #" /> <statusCode code="completed" /> < effectiveTime value="334215235915" /> <value xsi:type="ST" value="<pre> <b>CBC W/DIFF</b> 6.64729.932.067.821.030.922.4697615775.90.4NOTEDREVIEWED</ pre>" /> <referenceRange> <observationRange> < text>2.0-9.0</text> </observationRange> </referenceRange> </observation> </component> <component> <observation moodCode="EVN" classCode="OBS"> <templateId root= "2.16.840.1.618862.10.20.22.4.2" /> <id nullFlavor="NA" /> < code codeSystem="local" code="GR%" displayName="GRANULOCYTE %" /> <statusCode code="completed" /> <effectiveTime value="494017897939 " /> <value xsi:type="ST" value="<pre><b>CBC W/DIFF</b> 6.729.932.067.821.030.922.5100797912..4NOTEDREVIEWED</pre>" /> <interpretationCode codeSystem="local" code="*" /> <referenceRange> <observationRange> <text>50-75</text> </ observationRange> </referenceRange> </observation> </ component> <component> <observation moodCode="EVN" classCode="OBS"> <templateId root="2.16.840.1.945613.10.20.22.4.2" /> <id nullFlavor="NA" /> <code codeSystem="local" code="LY#" displayName= "LYMPHOCYTE #" /> <statusCode code="completed" /> < effectiveTime value="039208729650" /> <value xsi:type="ST" value="<pre> <b>CBC W/DIFF</b> 6.729.932.067.821.030.922.8399251659..4NOTEDREVIEWED</ pre>" /> <interpretationCode codeSystem="local" code="*" /> < referenceRange> <observationRange> <text>1.0-4.0</text> </observationRange> </referenceRange> </observation > </component> <component> <observation moodCode="EVN" classCode="OBS"> <templateId root="2.16.840.1.047010.10..22.4.2" /> <id nullFlavor="NA" /> <code codeSystem="local" code="LY% " displayName="LYMPHOCYTE %" /> <statusCode code="completed" /> <effectiveTime value="127985346318" /> <value xsi:type="ST" value="<pre><b>CBC W/DIFF</b> 664.729.932.067.821.030.922.3593336858..4NOTEDREVIEWED</pre>" /> <interpretationCode codeSystem="local" code="*" /> <referenceRange> <observationRange> <text>-30</text> </ observationRange> </referenceRange> </observation> </ component> <component> <observation moodCode="EVN" classCode="OBS"> <templateId root="2.16.840.1.294469.10...4.2" /> <id nullFlavor="NA" /> <code codeSystem="local" code="MCH" displayName= "MEAN CELL HGB" /> <statusCode code="completed" /> < effectiveTime value="913873554502" /> <value xsi:type="ST" value="<pre> <b>CBC W/DIFF</b> 6.729.932.067.821.030.922.5258450602..4NOTEDREVIEWED</ pre>" /> <interpretationCode codeSystem="local" code="*" /> < referenceRange> <observationRange> <text>27.0-33.0</text > </observationRange> </referenceRange> </observation > </component> <component> <observation moodCode="EVN" classCode="OBS"> <templateId root="2.16.840.1.187487.10...4.2" /> <id nullFlavor="NA" /> <code codeSystem="local" code="MCHC" displayName="MEAN CELL HGB CONCENTRATION" /> <statusCode code= "completed" /> <effectiveTime value="126019140319" /> <value xsi:type="ST" value="<pre><b>CBC W/DIFF</b> 6.64.729.932.067.821.030.922.5902104730..4NOTEDREVIEWED</pre>" /> <interpretationCode codeSystem="local" code="*" /> <referenceRange> <observationRange> <text>32.0-37.0</text> </ observationRange> </referenceRange> </observation> </ component> <component> <observation moodCode="EVN" classCode="OBS"> <templateId root="2.16.840.1.289226.10...4.2" /> <id nullFlavor="NA" /> <code codeSystem="local" code="MCV" displayName= "MEAN CELL VOLUME" /> <statusCode code="completed" /> < effectiveTime value="033321373351" /> <value xsi:type="ST" value="<pre> <b>CBC W/DIFF</b> 6.64.729.932.067.821.030.922.6010016792..4NOTEDREVIEWED</ pre>" /> <interpretationCode codeSystem="local" code="*" /> < referenceRange> <observationRange> <text>80.0-100.0</ text> </observationRange> </referenceRange> </ observation> </component> <component> <observation moodCode= "EVN" classCode="OBS"> <templateId root="2.16.840.1.078444.10..22.4.2 " /> <id nullFlavor="NA" /> <code codeSystem="local" code="MO# " displayName="MONOCYTE #" /> <statusCode code="completed" /> <effectiveTime value="279155978348" /> <value xsi:type="ST" value="<pre ><b>CBC W/DIFF</b> 6.64.729.932.067.821.030.922.8297372668..4NOTEDREVIEWED< /pre>" /> <referenceRange> <observationRange> < text>0.1-1.0</text> </observationRange> </referenceRange> </observation> </component> <component> <observation moodCode="EVN" classCode="OBS"> <templateId root= "2.16.840.1.390728.10..22.4.2" /> <id nullFlavor="NA" /> < code codeSystem="local" code="MO%" displayName="MONOCYTE %" /> <statusCode code="completed" /> <effectiveTime value="900726532783" /> <value xsi:type="ST" value="<pre><b>CBC W/DIFF</b> 6.64.729.932.067.821.030.922.3833590730..4NOTEDREVIEWED</pre>" /> <referenceRange> <observationRange> <text>4-6</text> </observationRange> </referenceRange> </observation> </component> <component> <observation moodCode="EVN" classCode= "OBS"> <templateId root="2.16.840.1.732308.10..22.4.2" /> < id nullFlavor="NA" /> <code codeSystem="local" code="OVAL" displayName= "OVALOCYTES" /> <statusCode code="completed" /> < effectiveTime value="596799545112" /> <value xsi:type="ST" value="<pre> <b>CBC W/DIFF</b> 6.64.729.932.067.821.030.922.5005881491..4NOTEDREVIEWED</ pre>" /> <referenceRange> <observationRange> < text /> </observationRange> </referenceRange> </ observation> </component> <component> <observation moodCode= "EVN" classCode="OBS"> <templateId root="16.840.1.130167...4.2 " /> <id nullFlavor="NA" /> <code codeSystem="local" code="RBC " displayName="RED BLOOD CELL" /> <statusCode code="completed" /> <effectiveTime value="561906982379" /> <value xsi:type="ST" value= "<pre><b>CBC W/DIFF</b> 6.64.729.932.067.821.030.922.8819575998..4NOTEDREVIEWED</pre>" /> <referenceRange> <observationRange> <text>4.00-6.00</ text> </observationRange> </referenceRange> </ observation> </component> <component> <observation moodCode= "EVN" classCode="OBS"> <templateId root="16.840.1.152068.10..22.4.2 " /> <id nullFlavor="NA" /> <code codeSystem="local" code="RDW " displayName="RED CELL DISTRIBUTION WIDTH" /> <statusCode code= "completed" /> <effectiveTime value="552514231579" /> <value xsi:type="ST" value="<pre><b>CBC W/DIFF</b> 6.64.729.932.067.821.030.922.5833140595.90.4NOTEDREVIEWED</pre>" /> <interpretationCode codeSystem="local" code="*" /> <referenceRange> <observationRange> <text>11.0-15.6</text> </ observationRange> </referenceRange> </observation> </ component> <component> <observation moodCode="EVN" classCode="OBS"> <templateId root="2.16.840.1.202154.10..22.4.2" /> <id nullFlavor="NA" /> <code codeSystem="local" code="WBC" displayName= "WHITE BLOOD CELL" /> <statusCode code="completed" /> < effectiveTime value="381008154101" /> <value xsi:type="ST" value="<pre> <b>CBC W/DIFF</b> 6.64.729.932.067.821.030.922.6611658521.90.4NOTEDREVIEWED</ pre>" /> <referenceRange> <observationRange> < text>5.0-10.0</text> </observationRange> </referenceRange> </observation> </component> <component> <observation moodCode="EVN" classCode="OBS"> <templateId root= "2.16.840.1.653066.10..22.4.2" /> <id nullFlavor="NA" /> < code codeSystem="local" code="HGBT" displayName="HEMOGLOBIN" /> < statusCode code="completed" /> <effectiveTime value="921287467184" /> <value xsi:type="ST" value="<pre><b>CBC W/DIFF</b> 6.64.729.932.067.821.030.922.7800879410.30.90.4NOTEDREVIEWED</pre>" /> <interpretationCode codeSystem="local" code="*" /> <referenceRange> <observationRange> <text>12.0-16.0</text> </ observationRange> </referenceRange> </observation> </ component> <component> <observation moodCode="EVN" classCode="OBS"> <templateId root="2.16.840.1.093263.10.20.22.4.2" /> <id nullFlavor="NA" /> <code codeSystem="local" code="HCTT" displayName= "HEMATOCRIT" /> <statusCode code="completed" /> < effectiveTime value="793704533292" /> <value xsi:type="ST" value="<pre> <b>CBC W/DIFF</b> 6.64.729.932.067.821.030.922.6462077920.30.90.4NOTEDREVIEWED</ pre>" /> <interpretationCode codeSystem="local" code="*" /> < referenceRange> <observationRange> <text>37.0-47.0</text > </observationRange> </referenceRange> </observation > </component> <component> <observation moodCode="EVN" classCode="OBS"> <templateId root="2.16.840.1.959535.10.20.22.4.2" /> <id nullFlavor="NA" /> <code codeSystem="local" code="PLT" displayName="PLATELET COUNT" /> <statusCode code="completed" /> <effectiveTime value="314237194727" /> <value xsi:type="ST" value="< pre><b>CBC W/DIFF</b> 6.64.729.932.067.821.030.922.4420347245.30.90.4NOTEDREVIEWED</pre>" /> <referenceRange> <observationRange> <text>150-450</text > </observationRange> </referenceRange> </observation > </component> <component> <observation moodCode="EVN" classCode="OBS"> <templateId root="06.27.840.1.639217.10..4.2" /> <id nullFlavor="NA" /> <code codeSystem="local" code="MB" displayName="Microbiology" /> <statusCode code="completed" /> <effectiveTime value="527391735413" /> <value xsi:type="ST" value="<pre ><b>CBC W/DIFF</b> 6.64.729.932.067.821.030.922.3802373388.30.90.4NOTEDREVIEWED< /pre>" /> <referenceRange> <observationRange> < text /> </observationRange> </referenceRange> </ observation> </component> </organizer> </entry> <entry> <organizer moodCode="EVN" classCode="BATTERY"> <templateId root= "06.27.840.1.096330....4.1" /> <id nullFlavor="NA" /> <code codeSystem="local" code="METAB" displayName="METABOLIC PANEL, BASIC" /> < statusCode code="completed" /> <component> <observation moodCode= "EVN" classCode="OBS"> <templateId root="06.27.840.1.086515.10..22.4.2 " /> <id nullFlavor="NA" /> <code codeSystem="local" code="K" displayName="POTASSIUM" /> <statusCode code="completed" /> < effectiveTime value="734990157215" /> <value xsi:type="ST" value="<pre> <b>METABOLIC PANEL, BASIC</b> 1362.815545707277.8> 60> 609.5</pre>" /> <interpretationCode codeSystem="local" code="*" /> <referenceRange> <observationRange> <text>3.5-5.3</text> </ observationRange> </referenceRange> </observation> </ component> <component> <observation moodCode="EVN" classCode="OBS"> <templateId root="216.840.1.026493.10..22.4.2" /> <id nullFlavor="NA" /> <code codeSystem="local" code="eGFR" displayName= "EST GFR (MDRD)" /> <statusCode code="completed" /> < effectiveTime value="386219797024" /> <value xsi:type="ST" value="<pre> <b>METABOLIC PANEL, BASIC</b> 1362.687183287363.8> 60> 609.5</pre>" /> <referenceRange> <observationRange> <text>> 59</text > </observationRange> </referenceRange> </observation > </component> <component> <observation moodCode="EVN" classCode="OBS"> <templateId root="16.840.1.803664.10..22.4.2" /> <id nullFlavor="NA" /> <code codeSystem="local" code="GAP" displayName="ANION GAP" /> <statusCode code="completed" /> < effectiveTime value="678951159839" /> <value xsi:type="ST" value="<pre> <b>METABOLIC PANEL, BASIC</b> 1362.116321131000.8> 60> 609.5</pre>" /> <referenceRange> <observationRange> <text>5-15</text> </observationRange> </referenceRange> </observation> </component> <component> <observation moodCode="EVN" classCode= "OBS"> <templateId root="216.840.1.529204.10..22.4.2" /> < id nullFlavor="NA" /> <code codeSystem="local" code="eCrCl" displayName ="EST CrCl (CG)" /> <statusCode code="completed" /> < effectiveTime value="[id number]" /> <value xsi:type="ST" value="<pre> <b>METABOLIC PANEL, BASIC</b> 1362.146847778069.8> 60> 609.5</pre>" /> <referenceRange> <observationRange> <text>> 59</text > </observationRange> </referenceRange> </observation > </component> <component> <observation moodCode="EVN" classCode="OBS"> <templateId root="[id number]...4.2" /> <id nullFlavor="NA" /> <code codeSystem="local" code="GLU" displayName="GLUCOSE" /> <statusCode code="completed" /> < effectiveTime value="[id number]" /> <value xsi:type="ST" value="<pre> <b>METABOLIC PANEL, BASIC</b> 1362.279342137044.8> 60> 609.5</pre>" /> <referenceRange> <observationRange> <text>70-99</text> </observationRange> </referenceRange> </observation> </component> <component> <observation moodCode="EVN" classCode ="OBS"> <templateId root="216.840.1.892008.10.4.2" /> < id nullFlavor="NA" /> <code codeSystem="local" code="CA" displayName= "CALCIUM" /> <statusCode code="completed" /> <effectiveTime value="982463047547" /> <value xsi:type="ST" value="<pre><b>METABOLIC PANEL, BASIC</b> 1362.304726743463.8> 60> 609.5</pre>" /> < referenceRange> <observationRange> <text>8.5-10.1</text > </observationRange> </referenceRange> </observation > </component> <component> <observation moodCode="EVN" classCode="OBS"> <templateId root="16.840.1.962008.02.28.224.2" /> <id nullFlavor="NA" /> <code codeSystem="local" code="BUN" displayName="BLOOD UREA NITROGEN" /> <statusCode code="completed" /> <effectiveTime value="479015881436" /> <value xsi:type="ST" value="<pre><b>METABOLIC PANEL, BASIC</b> 1362.387576233119.8> 60> 609.5</pre>" /> <referenceRange> <observationRange> <text>7- 20</text> </observationRange> </referenceRange> </ observation> </component> <component> <observation moodCode= "EVN" classCode="OBS"> <templateId root="16.840.1.926806.10.4.2 " /> <id nullFlavor="NA" /> <code codeSystem="local" code= "CREAT" displayName="CREATININE" /> <statusCode code="completed" /> <effectiveTime value="538407489026" /> <value xsi:type="ST" value="<pre><b>METABOLIC PANEL, BASIC</b> 1362.134608075542.8> 60> 609.5</pre>" /> <referenceRange> <observationRange> <text> 0.6-1.0</text> </observationRange> </referenceRange> </observation> </component> <component> <observation moodCode= "EVN" classCode="OBS"> <templateId root="2.16.840.1.171435.10..22.4.2 " /> <id nullFlavor="NA" /> <code codeSystem="local" code="NA " displayName="SODIUM" /> <statusCode code="completed" /> < effectiveTime value="389486808806" /> <value xsi:type="ST" value="<pre> <b>METABOLIC PANEL, BASIC</b> 136.935549084995.8> 60> 609.5</pre>" /> <referenceRange> <observationRange> <text>135-148</text > </observationRange> </referenceRange> </observation > </component> <component> <observation moodCode="EVN" classCode="OBS"> <templateId root="2.16.840.1.718327.10..22.4.2" /> <id nullFlavor="NA" /> <code codeSystem="local" code="CL" displayName="CHLORIDE" /> <statusCode code="completed" /> < effectiveTime value="811493479522" /> <value xsi:type="ST" value="<pre> <b>METABOLIC PANEL, BASIC</b> 1362.607951655491.8> 60> 609.5</pre>" /> <interpretationCode codeSystem="local" code="*" /> <referenceRange> <observationRange> <text>98-110</text> </ observationRange> </referenceRange> </observation> </ component> <component> <observation moodCode="EVN" classCode="OBS"> <templateId root="216.840.1.871331.10..22.4.2" /> <id nullFlavor="NA" /> <code codeSystem="local" code="CO2" displayName= "CARBON DIOXIDE" /> <statusCode code="completed" /> < effectiveTime value="124171988104" /> <value xsi:type="ST" value="<pre> <b>METABOLIC PANEL, BASIC</b> 1362.749947831485.8> 60> 609.5</pre>" /> <referenceRange> <observationRange> <text>21-32</text> </observationRange> </referenceRange> </observation> </component> <component> <observation moodCode="EVN" classCode ="OBS"> <templateId root="06.27.840.1.270716...4.2" /> < id nullFlavor="NA" /> <code codeSystem="local" code="MB" displayName= "Microbiology" /> <statusCode code="completed" /> < effectiveTime value="646109694827" /> <value xsi:type="ST" value="<pre> <b>METABOLIC PANEL, BASIC</b> 1362.138174476474.8> 60> 609.5</pre>" /> <referenceRange> <observationRange> <text /> </observationRange> </referenceRange> </observation> </ component> </organizer> </entry> <entry> <organizer moodCode="EVN" classCode="BATTERY"> <templateId root="216.840.1.710987.10..22.4.1" /> <id nullFlavor="NA" /> <code codeSystem="local" code="UA" displayName= "URINALYSIS, ROUTINE" /> <statusCode code="completed" /> <component> <observation moodCode="EVN" classCode="OBS"> <templateId root= "216.840.1.015193.10..22.4.2" /> <id nullFlavor="NA" /> < code codeSystem="local" code="LEUESU" displayName="UA LEUKOCYTE ESTERASE DIPSTICK" /> <statusCode code="completed" /> <effectiveTime value="138376429643" /> <value unit="" xsi:type="PQ" value="NEGATIVE" / > <referenceRange> <observationRange> <text> NEGATIVE</text> </observationRange> </referenceRange> </observation> </component> <component> <observation moodCode ="EVN" classCode="OBS"> <templateId root= "16.840.1.172116.10..4.2" /> <id nullFlavor="NA" /> < code codeSystem="local" code="NITRIU" displayName="UA NITRITE DIPSTICK" /> <statusCode code="completed" /> <effectiveTime value="457258742623 " /> <value unit="" xsi:type="PQ" value="NEGATIVE" /> < referenceRange> <observationRange> <text>NEGATIVE</text > </observationRange> </referenceRange> </observation > </component> <component> <observation moodCode="EVN" classCode="OBS"> <templateId root="06.27.840.1.653005.10.22.4.2" /> <id nullFlavor="NA" /> <code codeSystem="local" code="PROTEIU " displayName="UA PROTEIN DIPSTICK" /> <statusCode code="completed" /> <effectiveTime value="799549857207" /> <value unit="" xsi: type="PQ" value="NEGATIVE" /> <referenceRange> < observationRange> <text>NEGATIVE</text> </ observationRange> </referenceRange> </observation> </ component> <component> <observation moodCode="EVN" classCode="OBS"> <templateId root="216.840.1.992299.10.4.2" /> <id nullFlavor="NA" /> <code codeSystem="local" code="DGLUU" displayName= "UA GLUCOSE DIPSTICK" /> <statusCode code="completed" /> < effectiveTime value="943780073265" /> <value unit="" xsi:type="PQ" value="NEGATIVE" /> <referenceRange> <observationRange> <text>NEGATIVE</text> </observationRange> </ referenceRange> </observation> </component> <component> <observation moodCode="EVN" classCode="OBS"> <templateId root= "06.27.840.1.077073.02.28.22.4.2" /> <id nullFlavor="NA" /> < code codeSystem="local" code="KETONU" displayName="UA KETONE DIPSTICK" /> <statusCode code="completed" /> <effectiveTime value="333782106547 " /> <value unit="" xsi:type="PQ" value="2+" /> < interpretationCode codeSystem="local" code="*" /> <referenceRange> <observationRange> <text>NEGATIVE</text> </ observationRange> </referenceRange> </observation> </ component> <component> <observation moodCode="EVN" classCode="OBS"> <templateId root="16.840.1.065404.02.28.22.4.2" /> <id nullFlavor="NA" /> <code codeSystem="local" code="UROBILU" displayName= "UA UROBILINOGEN DIPSTICK" /> <statusCode code="completed" /> <effectiveTime value="038592742155" /> <value unit="" xsi:type="PQ" value="NORMAL" /> <referenceRange> <observationRange> <text>NORMAL</text> </observationRange> </ referenceRange> </observation> </component> <component> <observation moodCode="EVN" classCode="OBS"> <templateId root= "216.840.1.642263.10..4.2" /> <id nullFlavor="NA" /> < code codeSystem="local" code="BILU" displayName="UA BILIRUBIN DIPSTICK" /> <statusCode code="completed" /> <effectiveTime value="029063962215 " /> <value unit="" xsi:type="PQ" value="1+" /> < interpretationCode codeSystem="local" code="*" /> <referenceRange> <observationRange> <text>NEGATIVE</text> </ observationRange> </referenceRange> </observation> </ component> <component> <observation moodCode="EVN" classCode="OBS"> <templateId root="06.27.840.1.041125.02.28.22.4.2" /> <id nullFlavor="NA" /> <code codeSystem="local" code="NOLVIA" displayName="UA BLOOD DIPSTICK" /> <statusCode code="completed" /> < effectiveTime value="612077416285" /> <value unit="" xsi:type="PQ" value="TRACE" /> <interpretationCode codeSystem="local" code="*" /> <referenceRange> <observationRange> <text> NEGATIVE</text> </observationRange> </referenceRange> </observation> </component> <component> <observation moodCode ="EVN" classCode="OBS"> <templateId root= "16.840.1.049017.02.28.22.4.2" /> <id nullFlavor="NA" /> < code codeSystem="local" code="SPGRU" displayName="UA SPECIFIC GRAVITY" /> <statusCode code="completed" /> <effectiveTime value="310035170579 " /> <value unit="" xsi:type="PQ" value="1.015" /> < referenceRange> <observationRange> <text>1.015-1.025</ text> </observationRange> </referenceRange> </ observation> </component> <component> <observation moodCode= "EVN" classCode="OBS"> <templateId root="2.16.840.1.102132...22.4.2 " /> <id nullFlavor="NA" /> <code codeSystem="local" code="DIETER " displayName="UR PH" /> <statusCode code="completed" /> < effectiveTime value="893994773731" /> <value unit="" xsi:type="PQ" value="6.0" /> <referenceRange> <observationRange> <text>5.0-7.0</text> </observationRange> </ referenceRange> </observation> </component> <component> <observation moodCode="EVN" classCode="OBS"> <templateId root= "2.16.840.1.659660.10..22.4.2" /> <id nullFlavor="NA" /> < code codeSystem="local" code="MB" displayName="Microbiology" /> < statusCode code="completed" /> <effectiveTime value="608455011119" /> <value unit="" xsi:type="PQ" value="" /> <referenceRange> <observationRange> <text /> </observationRange> </referenceRange> </observation> </component> </ organizer> </entry> <entry> <organizer moodCode="EVN" classCode="BATTERY"> <templateId root="06.27.840.1.915833...4.1" /> <id nullFlavor= "NA" /> <code codeSystem="local" code="UAMICRO" displayName="UA MICROSCOPIC " /> <statusCode code="completed" /> <component> <observation moodCode="EVN" classCode="OBS"> <templateId root= "840.1.269173.02.28.22.4.2" /> <id nullFlavor="NA" /> < code codeSystem="local" code="BACU" displayName="UA BACTERIA" /> < statusCode code="completed" /> <effectiveTime value="867832984452" /> <value unit="" xsi:type="PQ" value="2+" /> < interpretationCode codeSystem="local" code="*" /> <referenceRange> <observationRange> <text>NEGATIVE</text> </ observationRange> </referenceRange> </observation> </ component> <component> <observation moodCode="EVN" classCode="OBS"> <templateId root="06.27.840.1.624889.02.28.22.4.2" /> <id nullFlavor="NA" /> <code codeSystem="local" code="EPIU" displayName=" UA EPITHELIAL CELLS" /> <statusCode code="completed" /> < effectiveTime value="682927502570" /> <value unit="epi/hpf" xsi:type= "PQ" value="2+" /> <interpretationCode codeSystem="local" code="*" /> <referenceRange> <observationRange> <text>0 - 1 +</text> </observationRange> </referenceRange> </ observation> </component> <component> <observation moodCode= "EVN" classCode="OBS"> <templateId root="06.27.840.1.925032.22.4.2 " /> <id nullFlavor="NA" /> <code codeSystem="local" code= "MUCUSU" displayName="UA MUCUS" /> <statusCode code="completed" /> <effectiveTime value="400511448365" /> <value unit="" xsi:type= "PQ" value="3+" /> <interpretationCode codeSystem="local" code="*" /> <referenceRange> <observationRange> <text>NEG TO 1+</text> </observationRange> </referenceRange> </ observation> </component> <component> <observation moodCode= "EVN" classCode="OBS"> <templateId root="06.27.840.1.347455.02.28.22.4.2 " /> <id nullFlavor="NA" /> <code codeSystem="local" code= "RBCU" displayName="UA RBC" /> <statusCode code="completed" /> <effectiveTime value="646112621973" /> <value unit="rbc/hpf" xsi:type ="PQ" value="0-3" /> <referenceRange> <observationRange> <text>0 - 3</text> </observationRange> </ referenceRange> </observation> </component> <component> <observation moodCode="EVN" classCode="OBS"> <templateId root= "06.27.840.1.873893.02.28.22.4.2" /> <id nullFlavor="NA" /> < code codeSystem="local" code="UAVOL" displayName="UA VOLUME FOR EXAM" /> <statusCode code="completed" /> <effectiveTime value="658333933270" /> <value unit="mL" xsi:type="PQ" value="12.0" /> < referenceRange> <observationRange> <text>(12mL STD)</ text> </observationRange> </referenceRange> </ observation> </component> <component> <observation moodCode= "EVN" classCode="OBS"> <templateId root="2.16.840.1.531099.10...4.2 " /> <id nullFlavor="NA" /> <code codeSystem="local" code= "WBCU" displayName="UA WBC" /> <statusCode code="completed" /> <effectiveTime value="641342528593" /> <value unit="wbc/hpf" xsi:type ="PQ" value="0-1" /> <referenceRange> <observationRange> <text>0 - 5</text> </observationRange> </ referenceRange> </observation> </component> </organizer> </entry > <entry> <organizer moodCode="EVN" classCode="BATTERY"> <templateId root="2.16.840.1.039040.10..22.4.1" /> <id nullFlavor="NA" /> <code codeSystem="local" code="PREGU" displayName="UR TEST" /> < statusCode code="completed" /> <component> <observation moodCode= "EVN" classCode="OBS"> <templateId root="2.16.840.1.917013.10..22.4.2 " /> <id nullFlavor="NA" /> <code codeSystem="local" code= "PREGU" displayName="UR TEST" /> <statusCode code="completed " /> <effectiveTime value="683708230136" /> <value xsi:type= "ST" value="<pre><b>UR TEST</b> NEGATIVE</pre>" /> < referenceRange> <observationRange> <text>NEGATIVE</text > </observationRange> </referenceRange> </observation > </component> <component> <observation moodCode="EVN" classCode="OBS"> <templateId root="06.27.840.1.837947.10..4.2" /> <id nullFlavor="NA" /> <code codeSystem="local" code="MB" displayName="Microbiology" /> <statusCode code="completed" /> <effectiveTime value="673654657967" /> <value xsi:type="ST" value="<pre ><b>UR TEST</b> NEGATIVE</pre>" /> <referenceRange> <observationRange> <text /> </observationRange> </referenceRange> </observation> </component> </organizer> </entry> <entry> <organizer moodCode="EVN" classCode="BATTERY"> < templateId root="06.27.840.1.360297.02.28.22.4.1" /> <id nullFlavor="NA" /> <code codeSystem="local" code="CBCD" displayName="CBC W/DIFF" /> < statusCode code="completed" /> <component> <observation moodCode= "EVN" classCode="OBS"> <templateId root="06.27.840.1.419700.02.28.22.4.2 " /> <id nullFlavor="NA" /> <code codeSystem="local" code="BA# " displayName="BASOPHIL #" /> <statusCode code="completed" /> <effectiveTime value="941912092820" /> <value unit="k/cumm" xsi:type= "PQ" value="0.0" /> <referenceRange> <observationRange> <text>0.0-0.2</text> </observationRange> </ referenceRange> </observation> </component> <component> <observation moodCode="EVN" classCode="OBS"> <templateId root= "06.27.840.1.269909.02.28.22.4.2" /> <id nullFlavor="NA" /> < code codeSystem="local" code="BA%" displayName="BASOPHIL %" /> <statusCode code="completed" /> <effectiveTime value="687360686048" /> <value unit="%" xsi:type="PQ" value="1" /> < referenceRange> <observationRange> <text>0-1</text> </observationRange> </referenceRange> </observation> </component> <component> <observation moodCode="EVN" classCode= "OBS"> <templateId root="2.16.840.1.497171.02.28.224.2" /> < id nullFlavor="NA" /> <code codeSystem="local" code="EO#" displayName= "EOSINOPHIL #" /> <statusCode code="completed" /> < effectiveTime value="909389146268" /> <value unit="k/cumm" xsi:type="PQ " value="0.1" /> <referenceRange> <observationRange> <text>0.1-0.5</text> </observationRange> </ referenceRange> </observation> </component> <component> <observation moodCode="EVN" classCode="OBS"> <templateId root= "2.16.840.1.917245.02.28.22.4.2" /> <id nullFlavor="NA" /> < code codeSystem="local" code="EO%" displayName="EOSINOPHIL %" /> <statusCode code="completed" /> <effectiveTime value="171899405738" /> <value unit="%" xsi:type="PQ" value="1" /> < interpretationCode codeSystem="local" code="*" /> <referenceRange> <observationRange> <text>2-4</text> </ observationRange> </referenceRange> </observation> </ component> <component> <observation moodCode="EVN" classCode="OBS"> <templateId root="16.840.1.730994.02.28.22.4.2" /> <id nullFlavor="NA" /> <code codeSystem="local" code="GR#" displayName= "GRANULOCYTE #" /> <statusCode code="completed" /> < effectiveTime value="064342564353" /> <value unit="k/cumm" xsi:type="PQ " value="3.0" /> <referenceRange> <observationRange> <text>2.0-9.0</text> </observationRange> </ referenceRange> </observation> </component> <component> <observation moodCode="EVN" classCode="OBS"> <templateId root= "06.27.840.1.750846.02.28.22.4.2" /> <id nullFlavor="NA" /> < code codeSystem="local" code="GR%" displayName="GRANULOCYTE %" /> <statusCode code="completed" /> <effectiveTime value="744819094719 " /> <value unit="%" xsi:type="PQ" value="57" /> < referenceRange> <observationRange> <text>50-75</text> </observationRange> </referenceRange> </observation> </component> <component> <observation moodCode="EVN" classCode= "OBS"> <templateId root="06.27.840.1.758720.02.28.22.4.2" /> < id nullFlavor="NA" /> <code codeSystem="local" code="LY#" displayName= "LYMPHOCYTE #" /> <statusCode code="completed" /> < effectiveTime value="155028105988" /> <value unit="k/cumm" xsi:type="PQ " value="1.8" /> <referenceRange> <observationRange> <text>1.0-4.0</text> </observationRange> </ referenceRange> </observation> </component> <component> <observation moodCode="EVN" classCode="OBS"> <templateId root= "840.1.357233.10.4.2" /> <id nullFlavor="NA" /> < code codeSystem="local" code="LY%" displayName="LYMPHOCYTE %" /> <statusCode code="completed" /> <effectiveTime value="804949273920" /> <value unit="%" xsi:type="PQ" value="34" /> < interpretationCode codeSystem="local" code="*" /> <referenceRange> <observationRange> <text>20-30</text> </ observationRange> </referenceRange> </observation> </ component> <component> <observation moodCode="EVN" classCode="OBS"> <templateId root="06.27.840.1.558179.02.28.22.4.2" /> <id nullFlavor="NA" /> <code codeSystem="local" code="MCH" displayName= "MEAN CELL HGB" /> <statusCode code="completed" /> < effectiveTime value="876604172515" /> <value unit="pg" xsi:type="PQ" value="20.4" /> <interpretationCode codeSystem="local" code="*" /> <referenceRange> <observationRange> <text>27.0- 33.0</text> </observationRange> </referenceRange> </ observation> </component> <component> <observation moodCode= "EVN" classCode="OBS"> <templateId root="06.27.830.1.691013.10.2022.4.2 " /> <id nullFlavor="NA" /> <code codeSystem="local" code= "MCHC" displayName="MEAN CELL HGB CONCENTRATION" /> <statusCode code= "completed" /> <effectiveTime value="035457219251" /> <value unit="g/dL" xsi:type="PQ" value="30.3" /> <interpretationCode codeSystem="local" code="*" /> <referenceRange> < observationRange> <text>32.0-37.0</text> </ observationRange> </referenceRange> </observation> </ component> <component> <observation moodCode="EVN" classCode="OBS"> <templateId root="840.1.960446.1022.4.2" /> <id nullFlavor="NA" /> <code codeSystem="local" code="MCV" displayName= "MEAN CELL VOLUME" /> <statusCode code="completed" /> < effectiveTime value="532577160738" /> <value unit="fl" xsi:type="PQ" value="67.4" /> <interpretationCode codeSystem="local" code="*" /> <referenceRange> <observationRange> <text>80.0- 100.0</text> </observationRange> </referenceRange> </ observation> </component> <component> <observation moodCode= "EVN" classCode="OBS"> <templateId root="06.27.840.1.014889.10.2022.4.2 " /> <id nullFlavor="NA" /> <code codeSystem="local" code="MO# " displayName="MONOCYTE #" /> <statusCode code="completed" /> <effectiveTime value="523893380251" /> <value unit="k/cumm" xsi:type= "PQ" value="0.4" /> <referenceRange> <observationRange> <text>0.1-1.0</text> </observationRange> </ referenceRange> </observation> </component> <component> <observation moodCode="EVN" classCode="OBS"> <templateId root= "16.840.1.233315.10.22.4.2" /> <id nullFlavor="NA" /> < code codeSystem="local" code="MO%" displayName="MONOCYTE %" /> <statusCode code="completed" /> <effectiveTime value="342824410365" /> <value unit="%" xsi:type="PQ" value="7" /> < interpretationCode codeSystem="local" code="*" /> <referenceRange> <observationRange> <text>4-6</text> </ observationRange> </referenceRange> </observation> </ component> <component> <observation moodCode="EVN" classCode="OBS"> <templateId root="840.1.157397.02.28.22.4.2" /> <id nullFlavor="NA" /> <code codeSystem="local" code="OVAL" displayName= "OVALOCYTES" /> <statusCode code="completed" /> < effectiveTime value="546885767460" /> <value unit="" xsi:type="PQ" value="NOTED" /> <referenceRange> <observationRange> <text /> </observationRange> </referenceRange> </observation> </component> <component> <observation moodCode ="EVN" classCode="OBS"> <templateId root= "06.27.840.1.276501.10.2022.4.2" /> <id nullFlavor="NA" /> < code codeSystem="local" code="RBC" displayName="RED BLOOD CELL" /> < statusCode code="completed" /> <effectiveTime value="611800979225" /> <value unit="m/cumm" xsi:type="PQ" value="3.77" /> < interpretationCode codeSystem="local" code="*" /> <referenceRange> <observationRange> <text>4.00-6.00</text> </ observationRange> </referenceRange> </observation> </ component> <component> <observation moodCode="EVN" classCode="OBS"> <templateId root="2.16.840.1.143690.10..22.4.2" /> <id nullFlavor="NA" /> <code codeSystem="local" code="RDW" displayName=" RED CELL DISTRIBUTION WIDTH" /> <statusCode code="completed" /> <effectiveTime value="067791679483" /> <value unit="%" xsi:type= "PQ" value="22.0" /> <interpretationCode codeSystem="local" code="*" / > <referenceRange> <observationRange> <text> 11.0-15.6</text> </observationRange> </referenceRange> </observation> </component> <component> <observation moodCode="EVN" classCode="OBS"> <templateId root= "216.840.1.925544.10.20.22.4.2" /> <id nullFlavor="NA" /> < code codeSystem="local" code="WBC" displayName="WHITE BLOOD CELL" /> < statusCode code="completed" /> <effectiveTime value="016711346360" /> <value unit="k/cumm" xsi:type="PQ" value="5.3" /> < referenceRange> <observationRange> <text>5.0-10.0</text > </observationRange> </referenceRange> </observation > </component> <component> <observation moodCode="EVN" classCode="OBS"> <templateId root="216.840.1.440404.10..4.2" /> <id nullFlavor="NA" /> <code codeSystem="local" code="HGBT" displayName="HEMOGLOBIN" /> <statusCode code="completed" /> < effectiveTime value="501504649492" /> <value unit="gm/dL" xsi:type="PQ " value="7.7" /> <interpretationCode codeSystem="local" code="*" /> <referenceRange> <observationRange> <text>12.0- 16.0</text> </observationRange> </referenceRange> </ observation> </component> <component> <observation moodCode= "EVN" classCode="OBS"> <templateId root="16.840.1.509736.02.28.224.2 " /> <id nullFlavor="NA" /> <code codeSystem="local" code= "HCTT" displayName="HEMATOCRIT" /> <statusCode code="completed" /> <effectiveTime value="952227709452" /> <value unit="%" xsi: type="PQ" value="25.4" /> <interpretationCode codeSystem="local" code= "*" /> <referenceRange> <observationRange> < text>37.0-47.0</text> </observationRange> </referenceRange> </observation> </component> <component> <observation moodCode="EVN" classCode="OBS"> <templateId root= "216.840.1.528982.10.4.2" /> <id nullFlavor="NA" /> < code codeSystem="local" code="PLT" displayName="PLATELET COUNT" /> < statusCode code="completed" /> <effectiveTime value="299048018086" /> <value unit="k/cumm" xsi:type="PQ" value="284" /> < referenceRange> <observationRange> <text>150-400</text> </observationRange> </referenceRange> </observation > </component> <component> <observation moodCode="EVN" classCode="OBS"> <templateId root="16.840.1.712299.10..22.4.2" /> <id nullFlavor="NA" /> <code codeSystem="local" code="MB" displayName="Microbiology" /> <statusCode code="completed" /> <effectiveTime value="277323736010" /> <value unit="" xsi:type="PQ" value="" /> <referenceRange> <observationRange> <text /> </observationRange> </referenceRange> </ observation> </component> </organizer> </entry> <entry> <organizer moodCode="EVN" classCode="BATTERY"> <templateId root= "216.840.1.792920.10..22.4.1" /> <id nullFlavor="NA" /> <code codeSystem="local" code="PREG" displayName=" TEST, SERUM" /> < statusCode code="completed" /> <component> <observation moodCode= "EVN" classCode="OBS"> <templateId root="16.840.1.820630.10..22.4.2 " /> <id nullFlavor="NA" /> <code codeSystem="local" code= "PREG" displayName=" TEST, SERUM" /> <statusCode code= "completed" /> <effectiveTime value="261157366353" /> <value xsi:type="ST" value="<pre><b> TEST, SERUM</b> NEGATIVE</pre>" /> <referenceRange> <observationRange> <text>NEGATIVE</ text> </observationRange> </referenceRange> </ observation> </component> <component> <observation moodCode= "EVN" classCode="OBS"> <templateId root="06.27.840.1.957124.10.20.22.4.2 " /> <id nullFlavor="NA" /> <code codeSystem="local" code="MB " displayName="Microbiology" /> <statusCode code="completed" /> <effectiveTime value="[id number]" /> <value xsi:type="ST" value="< pre><b> TEST, SERUM</b> NEGATIVE</pre>" /> <referenceRange> <observationRange> <text /> </observationRange > </referenceRange> </observation> </component> </ organizer> </entry> <entry> <organizer moodCode="EVN" classCode="BATTERY"> <templateId root="06.27.840.1.142592.10..22.4.1" /> <id nullFlavor= "NA" /> <code codeSystem="local" code="METABC" displayName="METABOLIC PANEL , COMPREHN" /> <statusCode code="completed" /> <component> < observation moodCode="EVN" classCode="OBS"> <templateId root= "06.27.840.1.115354.10..22.4.2" /> <id nullFlavor="NA" /> < code codeSystem="local" code="K" displayName="POTASSIUM" /> < statusCode code="completed" /> <effectiveTime value="160020557998" /> <value unit="mmol/L" xsi:type="PQ" value="3.5" /> < referenceRange> <observationRange> <text>3.5-5.3</text> </observationRange> </referenceRange> </observation > </component> <component> <observation moodCode="EVN" classCode="OBS"> <templateId root="216.840.1.005435.10..4.2" /> <id nullFlavor="NA" /> <code codeSystem="local" code="eGFR" displayName="EST GFR (MDRD)" /> <statusCode code="completed" /> <effectiveTime value="839895048628" /> <value unit="mL/min" xsi:type ="PQ" value="> 60" /> <referenceRange> <observationRange > <text>> 59</text> </observationRange> </ referenceRange> </observation> </component> <component> <observation moodCode="EVN" classCode="OBS"> <templateId root= "06.27.840.1.720817.02.28.22.4.2" /> <id nullFlavor="NA" /> < code codeSystem="local" code="GAP" displayName="ANION GAP" /> < statusCode code="completed" /> <effectiveTime value="294252583942" /> <value unit="mmol/L" xsi:type="PQ" value="8" /> < referenceRange> <observationRange> <text>5-15</text> </observationRange> </referenceRange> </observation> </component> <component> <observation moodCode="EVN" classCode= "OBS"> <templateId root="16.840.1.230497.10...4.2" /> < id nullFlavor="NA" /> <code codeSystem="local" code="eCrCl" displayName ="EST CrCl (CG)" /> <statusCode code="completed" /> < effectiveTime value="484875604601" /> <value unit="mL/min" xsi:type="PQ " value="> 60" /> <referenceRange> <observationRange> <text>> 59</text> </observationRange> </ referenceRange> </observation> </component> <component> <observation moodCode="EVN" classCode="OBS"> <templateId root= "16.840.1.003512.10.20.22.4.2" /> <id nullFlavor="NA" /> < code codeSystem="local" code="GLU" displayName="GLUCOSE" /> < statusCode code="completed" /> <effectiveTime value="704943281132" /> <value unit="mg/dL" xsi:type="PQ" value="79" /> < referenceRange> <observationRange> <text>70-99</text> </observationRange> </referenceRange> </observation> </component> <component> <observation moodCode="EVN" classCode= "OBS"> <templateId root="06.27.840.1.712287.1022.4.2" /> < id nullFlavor="NA" /> <code codeSystem="local" code="CA" displayName= "CALCIUM" /> <statusCode code="completed" /> <effectiveTime value="943229739477" /> <value unit="mg/dL" xsi:type="PQ" value="8.6" / > <referenceRange> <observationRange> <text>8.5 -10.1</text> </observationRange> </referenceRange> </ observation> </component> <component> <observation moodCode= "EVN" classCode="OBS"> <templateId root="06.27.840.1.411152.10.2022.4.2 " /> <id nullFlavor="NA" /> <code codeSystem="local" code="BUN " displayName="BLOOD UREA NITROGEN" /> <statusCode code="completed" /> <effectiveTime value="039483858819" /> <value unit="mg/dL" xsi:type="PQ" value="9" /> <referenceRange> < observationRange> <text>7-20</text> </observationRange> </referenceRange> </observation> </component> < component> <observation moodCode="EVN" classCode="OBS"> < templateId root="216.840.1.716810.10.20.22.4.2" /> <id nullFlavor="NA " /> <code codeSystem="local" code="CREAT" displayName="CREATININE" /> <statusCode code="completed" /> <effectiveTime value= "781367896080" /> <value unit="mg/dL" xsi:type="PQ" value="0.6" /> <referenceRange> <observationRange> <text>0.6-1.0< /text> </observationRange> </referenceRange> </ observation> </component> <component> <observation moodCode= "EVN" classCode="OBS"> <templateId root="06.27.840.1.870165.10..22.4.2 " /> <id nullFlavor="NA" /> <code codeSystem="local" code="NA " displayName="SODIUM" /> <statusCode code="completed" /> < effectiveTime value="683525823882" /> <value unit="mmol/L" xsi:type="PQ " value="139" /> <referenceRange> <observationRange> <text>135-148</text> </observationRange> </ referenceRange> </observation> </component> <component> <observation moodCode="EVN" classCode="OBS"> <templateId root= "216.840.1.297221.10.20.22.4.2" /> <id nullFlavor="NA" /> < code codeSystem="local" code="CL" displayName="CHLORIDE" /> < statusCode code="completed" /> <effectiveTime value="978163100361" /> <value unit="mmol/L" xsi:type="PQ" value="101" /> < referenceRange> <observationRange> <text>98-110</text> </observationRange> </referenceRange> </observation> </component> <component> <observation moodCode="EVN" classCode ="OBS"> <templateId root="216.840.1.478513.10.20.22.4.2" /> < id nullFlavor="NA" /> <code codeSystem="local" code="AST" displayName= "AST/SGOT" /> <statusCode code="completed" /> <effectiveTime value="221442925571" /> <value unit="Units/L" xsi:type="PQ" value="38" /> <interpretationCode codeSystem="local" code="*" /> < referenceRange> <observationRange> <text>10-37</text> </observationRange> </referenceRange> </observation> </component> <component> <observation moodCode="EVN" classCode= "OBS"> <templateId root="216.840.1.981137.10.20.22.4.2" /> < id nullFlavor="NA" /> <code codeSystem="local" code="ALT" displayName= "ALT/SGPT" /> <statusCode code="completed" /> <effectiveTime value="461552992958" /> <value unit="Units/L" xsi:type="PQ" value="67" /> <interpretationCode codeSystem="local" code="*" /> < referenceRange> <observationRange> <text>< 66</text> </observationRange> </referenceRange> </observation > </component> <component> <observation moodCode="EVN" classCode="OBS"> <templateId root="06.27.840.1.260405.10.2022.4.2" /> <id nullFlavor="NA" /> <code codeSystem="local" code="CO2" displayName="CARBON DIOXIDE" /> <statusCode code="completed" /> <effectiveTime value="057362129038" /> <value unit="mmol/L" xsi:type ="PQ" value="30" /> <referenceRange> <observationRange> <text>21-32</text> </observationRange> </ referenceRange> </observation> </component> <component> <observation moodCode="EVN" classCode="OBS"> <templateId root= "840.1.906753.1022.4.2" /> <id nullFlavor="NA" /> < code codeSystem="local" code="TP" displayName="TOTAL PROTEIN" /> < statusCode code="completed" /> <effectiveTime value="592658458659" /> <value unit="gm/dL" xsi:type="PQ" value="6.7" /> < referenceRange> <observationRange> <text>6.4-8.2</text> </observationRange> </referenceRange> </observation > </component> <component> <observation moodCode="EVN" classCode="OBS"> <templateId root="06.27.840.1.359062.10.2022.4.2" /> <id nullFlavor="NA" /> <code codeSystem="local" code="ALB" displayName="ALBUMIN" /> <statusCode code="completed" /> < effectiveTime value="820084373903" /> <value unit="gm/dL" xsi:type="PQ " value="2.9" /> <interpretationCode codeSystem="local" code="*" /> <referenceRange> <observationRange> <text>3.4-5.0 </text> </observationRange> </referenceRange> </ observation> </component> <component> <observation moodCode= "EVN" classCode="OBS"> <templateId root="06.27.840.1.249723.10.20.22.4.2 " /> <id nullFlavor="NA" /> <code codeSystem="local" code= "BILTOT" displayName="BILI TOTAL" /> <statusCode code="completed" /> <effectiveTime value="003596141577" /> <value unit="mg/dL" xsi: type="PQ" value="0.3" /> <referenceRange> <observationRange > <text>0.0-1.0</text> </observationRange> </ referenceRange> </observation> </component> <component> <observation moodCode="EVN" classCode="OBS"> <templateId root= "840.1.371156.10..22.4.2" /> <id nullFlavor="NA" /> < code codeSystem="local" code="ALKP" displayName="ALKALINE PHOSPHATASE TOTAL" /> <statusCode code="completed" /> <effectiveTime value= "561974768678" /> <value unit="IU/L" xsi:type="PQ" value="149" /> <interpretationCode codeSystem="local" code="*" /> <referenceRange > <observationRange> <text>45-117</text> </ observationRange> </referenceRange> </observation> </ component> <component> <observation moodCode="EVN" classCode="OBS"> <templateId root="06.27.840.1.338403.10.20.22.4.2" /> <id nullFlavor="NA" /> <code codeSystem="local" code="MB" displayName= "Microbiology" /> <statusCode code="completed" /> < effectiveTime value="305627631122" /> <value unit="" xsi:type="PQ" value="" /> <referenceRange> <observationRange> <text /> </observationRange> </referenceRange> </ observation> </component> </organizer> </entry> <entry> <organizer moodCode="EVN" classCode="BATTERY"> <templateId root= "216.840.1.098267.10..22.4.1" /> <id nullFlavor="NA" /> <code codeSystem="local" code="MAG" displayName="MAGNESIUM" /> <statusCode code= "completed" /> <component> <observation moodCode="EVN" classCode= "OBS"> <templateId root="216.840.1.930802...4.2" /> < id nullFlavor="NA" /> <code codeSystem="local" code="MAG" displayName= "MAGNESIUM" /> <statusCode code="completed" /> <effectiveTime value="048733017650" /> <value unit="mg/dL" xsi:type="PQ" value="1.8" / > <referenceRange> <observationRange> <text>1.8 -2.4</text> </observationRange> </referenceRange> </ observation> </component> </organizer> </entry> <entry> <organizer moodCode="EVN" classCode="BATTERY"> <templateId root= "216.840.1.691964.10..22.4.1" /> <id nullFlavor="NA" /> <code codeSystem="local" code="LIP" displayName="LIPASE" /> <statusCode code= "completed" /> <component> <observation moodCode="EVN" classCode= "OBS"> <templateId root="06.27.840.1.603236.10..22.4.2" /> < id nullFlavor="NA" /> <code codeSystem="local" code="LIP" displayName= "LIPASE" /> <statusCode code="completed" /> <effectiveTime value="487638524983" /> <value unit="Units/L" xsi:type="PQ" value="123 " /> <referenceRange> <observationRange> <text> 73-393</text> </observationRange> </referenceRange> < /observation> </component> </organizer> </entry> <entry> < organizer moodCode="EVN" classCode="BATTERY"> <templateId root= "16.840.1.727159.10..22.4.1" /> <id nullFlavor="NA" /> <code codeSystem="local" code="iCHEM8" displayName="CHEM/HEM PROFILE-BEDSIDE" /> <statusCode code="completed" /> <component> <observation moodCode= "EVN" classCode="OBS"> <templateId root="16.840.1.723266.10..22.4.2 " /> <id nullFlavor="NA" /> <code codeSystem="local" code="K" displayName="POTASSIUM" /> <statusCode code="completed" /> < effectiveTime value="880448645693" /> <value unit="mmol/L" xsi:type="PQ " value="3.4" /> <interpretationCode codeSystem="local" code="*" /> <referenceRange> <observationRange> <text>3.5-5.3 </text> </observationRange> </referenceRange> </ observation> </component> <component> <observation moodCode= "EVN" classCode="OBS"> <templateId root="06.27.840.1.522915.02.28.22.4.2 " /> <id nullFlavor="NA" /> <code codeSystem="local" code= "CMETHOD" displayName="METHOD" /> <statusCode code="completed" /> <effectiveTime value="513949402651" /> <value unit="" xsi:type="PQ " value="Bedside" /> <referenceRange> <observationRange> <text /> </observationRange> </referenceRange> </observation> </component> <component> <observation moodCode="EVN" classCode="OBS"> <templateId root= "06.27.840.1.557687.02.28.22.4.2" /> <id nullFlavor="NA" /> < code codeSystem="local" code="GAP" displayName="ANION GAP" /> < statusCode code="completed" /> <effectiveTime value="304447150280" /> <value unit="mmol/L" xsi:type="PQ" value="17" /> < referenceRange> <observationRange> <text>10-20</text> </observationRange> </referenceRange> </observation> </component> <component> <observation moodCode="EVN" classCode= "OBS"> <templateId root="06.27.840.1.761003...4.2" /> < id nullFlavor="NA" /> <code codeSystem="local" code="HMETHOD" displayName="METHOD" /> <statusCode code="completed" /> < effectiveTime value="255115774955" /> <value unit="" xsi:type="PQ" value="Bedside" /> <referenceRange> <observationRange> <text /> </observationRange> </referenceRange> </observation> </component> <component> <observation moodCode="EVN" classCode="OBS"> <templateId root= "840.1.628806.10..22.4.2" /> <id nullFlavor="NA" /> < code codeSystem="local" code="GLU" displayName="GLUCOSE" /> < statusCode code="completed" /> <effectiveTime value="220253501372" /> <value unit="mg/dL" xsi:type="PQ" value="77" /> < referenceRange> <observationRange> <text>70-99</text> </observationRange> </referenceRange> </observation> </component> <component> <observation moodCode="EVN" classCode= "OBS"> <templateId root="216.840.1.573964.10..4.2" /> < id nullFlavor="NA" /> <code codeSystem="local" code="BUN" displayName= "BLOOD UREA NITROGEN" /> <statusCode code="completed" /> < effectiveTime value="193141625699" /> <value unit="mg/dL" xsi:type="PQ " value="5" /> <interpretationCode codeSystem="local" code="*" /> <referenceRange> <observationRange> <text>7-20</ text> </observationRange> </referenceRange> </ observation> </component> <component> <observation moodCode= "EVN" classCode="OBS"> <templateId root="16.840.1.142045.10..22.4.2 " /> <id nullFlavor="NA" /> <code codeSystem="local" code= "CREAT" displayName="CREATININE" /> <statusCode code="completed" /> <effectiveTime value="540259053022" /> <value unit="mg/dL" xsi: type="PQ" value="0.6" /> <referenceRange> <observationRange > <text>0.6-1.0</text> </observationRange> </ referenceRange> </observation> </component> <component> <observation moodCode="EVN" classCode="OBS"> <templateId root= "06.27.840.1.779213.10.2022.4.2" /> <id nullFlavor="NA" /> < code codeSystem="local" code="HGBT" displayName="HEMOGLOBIN" /> < statusCode code="completed" /> <effectiveTime value="419785824227" /> <value unit="gm/dL" xsi:type="PQ" value="8.5" /> < interpretationCode codeSystem="local" code="*" /> <referenceRange> <observationRange> <text>12.0-16.0</text> </ observationRange> </referenceRange> </observation> </ component> <component> <observation moodCode="EVN" classCode="OBS"> <templateId root="06.27.840.1.728430.10.4.2" /> <id nullFlavor="NA" /> <code codeSystem="local" code="HCTT" displayName= "HEMATOCRIT" /> <statusCode code="completed" /> < effectiveTime value="436571885026" /> <value unit="%" xsi:type="PQ " value="25.0" /> <interpretationCode codeSystem="local" code="*" /> <referenceRange> <observationRange> <text>37.0- 47.0</text> </observationRange> </referenceRange> </ observation> </component> <component> <observation moodCode= "EVN" classCode="OBS"> <templateId root="06.27.840.1.664317.10.2022.4.2 " /> <id nullFlavor="NA" /> <code codeSystem="local" code="NA " displayName="SODIUM" /> <statusCode code="completed" /> < effectiveTime value="003125320845" /> <value unit="mmol/L" xsi:type="PQ " value="138" /> <referenceRange> <observationRange> <text>135-148</text> </observationRange> </ referenceRange> </observation> </component> <component> <observation moodCode="EVN" classCode="OBS"> <templateId root= "216.840.1.661683.10.22.4.2" /> <id nullFlavor="NA" /> < code codeSystem="local" code="CL" displayName="CHLORIDE" /> < statusCode code="completed" /> <effectiveTime value="054569235133" /> <value unit="mmol/L" xsi:type="PQ" value="100" /> < referenceRange> <observationRange> <text>98-110</text> </observationRange> </referenceRange> </observation> </component> <component> <observation moodCode="EVN" classCode ="OBS"> <templateId root="06.27.840.1.812917.10.22.4.2" /> < id nullFlavor="NA" /> <code codeSystem="local" code="CO2" displayName= "CARBON DIOXIDE" /> <statusCode code="completed" /> < effectiveTime value="413385967692" /> <value unit="mmol/L" xsi:type="PQ " value="25" /> <referenceRange> <observationRange> <text>21-32</text> </observationRange> </ referenceRange> </observation> </component> <component> <observation moodCode="EVN" classCode="OBS"> <templateId root= "16.840.1.580781.10.20.22.4.2" /> <id nullFlavor="NA" /> < code codeSystem="local" code="CAION" displayName="CALCIUM IONIZED" /> < statusCode code="completed" /> <effectiveTime value="116105188799" /> <value unit="mg/dL" xsi:type="PQ" value="4.7" /> < referenceRange> <observationRange> <text>4.5-5.3</text> </observationRange> </referenceRange> </observation > </component> <component> <observation moodCode="EVN" classCode="OBS"> <templateId root="840.1.995879.10.22.4.2" /> <id nullFlavor="NA" /> <code codeSystem="local" code="MB" displayName="Microbiology" /> <statusCode code="completed" /> <effectiveTime value="278989926641" /> <value unit="" xsi:type="PQ" value="" /> <referenceRange> <observationRange> <text /> </observationRange> </referenceRange> </ observation> </component> </organizer> </entry> <entry> <organizer moodCode="EVN" classCode="BATTERY"> <templateId root= "06.27.840.1.099105.10.22.4.1" /> <id nullFlavor="NA" /> <code codeSystem="local" code="UANRC" displayName="URINALYSIS, NO REFLEX CULTURE" /> <statusCode code="completed" /> <component> <observation moodCode="EVN" classCode="OBS"> <templateId root= "840.1.556499.1022.4.2" /> <id nullFlavor="NA" /> < code codeSystem="local" code="LEUESU" displayName="UA LEUKOCYTE ESTERASE DIPSTICK" /> <statusCode code="completed" /> <effectiveTime value="" /> <value unit="" xsi:type="PQ" value="2+" /> <interpretationCode codeSystem="local" code="*" /> < referenceRange> <observationRange> <text>NEGATIVE</text > </observationRange> </referenceRange> </observation > </component> <component> <observation moodCode="EVN" classCode="OBS"> <templateId root="06.27.840.1.290323.02.28.22.4.2" /> <id nullFlavor="NA" /> <code codeSystem="local" code="NITRIU" displayName="UA NITRITE DIPSTICK" /> <statusCode code="completed" /> <effectiveTime value="" /> <value unit="" xsi:type= "PQ" value="NEGATIVE" /> <referenceRange> <observationRange > <text>NEGATIVE</text> </observationRange> </ referenceRange> </observation> </component> <component> <observation moodCode="EVN" classCode="OBS"> <templateId root= "06.27.840.1.337235.02.28.22.4.2" /> <id nullFlavor="NA" /> < code codeSystem="local" code="PROTEIU" displayName="UA PROTEIN DIPSTICK" /> <statusCode code="completed" /> <effectiveTime value= "" /> <value unit="" xsi:type="PQ" value="1+" /> < interpretationCode codeSystem="local" code="*" /> <referenceRange> <observationRange> <text>NEGATIVE</text> </ observationRange> </referenceRange> </observation> </ component> <component> <observation moodCode="EVN" classCode="OBS"> <templateId root="06.27.840.1.861989.02.28.22.4.2" /> <id nullFlavor="NA" /> <code codeSystem="local" code="DGLUU" displayName= "UA GLUCOSE DIPSTICK" /> <statusCode code="completed" /> < effectiveTime value="" /> <value unit="" xsi:type="PQ" value="NEGATIVE" /> <referenceRange> <observationRange> <text>NEGATIVE</text> </observationRange> </ referenceRange> </observation> </component> <component> <observation moodCode="EVN" classCode="OBS"> <templateId root= "216.840.1.999009.02.28.22.4.2" /> <id nullFlavor="NA" /> < code codeSystem="local" code="KETONU" displayName="UA KETONE DIPSTICK" /> <statusCode code="completed" /> <effectiveTime value=" " /> <value unit="" xsi:type="PQ" value="NEGATIVE" /> < referenceRange> <observationRange> <text>NEGATIVE</text > </observationRange> </referenceRange> </observation > </component> <component> <observation moodCode="EVN" classCode="OBS"> <templateId root="216.840.1.091331.02.28.22.4.2" /> <id nullFlavor="NA" /> <code codeSystem="local" code="UROBILU " displayName="UA UROBILINOGEN DIPSTICK" /> <statusCode code="completed " /> <effectiveTime value="" /> <value unit="" xsi :type="PQ" value="NORMAL" /> <referenceRange> < observationRange> <text>NORMAL</text> </observationRange > </referenceRange> </observation> </component> < component> <observation moodCode="EVN" classCode="OBS"> < templateId root="16.840.1.920282.10..22.4.2" /> <id nullFlavor="NA " /> <code codeSystem="local" code="BILU" displayName="UA BILIRUBIN DIPSTICK" /> <statusCode code="completed" /> <effectiveTime value="" /> <value unit="" xsi:type="PQ" value="NEGATIVE" / > <referenceRange> <observationRange> <text> NEGATIVE</text> </observationRange> </referenceRange> </observation> </component> <component> <observation moodCode ="EVN" classCode="OBS"> <templateId root= "06.27.840.1.495977.10..4.2" /> <id nullFlavor="NA" /> < code codeSystem="local" code="NOLVIA" displayName="UA BLOOD DIPSTICK" /> < statusCode code="completed" /> <effectiveTime value="" /> <value unit="" xsi:type="PQ" value="1+" /> < interpretationCode codeSystem="local" code="*" /> <referenceRange> <observationRange> <text>NEGATIVE</text> </ observationRange> </referenceRange> </observation> </ component> <component> <observation moodCode="EVN" classCode="OBS"> <templateId root="06.27.840.1.991611.10..4.2" /> <id nullFlavor="NA" /> <code codeSystem="local" code="SPGRU" displayName= "UA SPECIFIC GRAVITY" /> <statusCode code="completed" /> < effectiveTime value="" /> <value unit="" xsi:type="PQ" value="1.010" /> <interpretationCode codeSystem="local" code="*" /> <referenceRange> <observationRange> <text>1.015- 1.025</text> </observationRange> </referenceRange> </ observation> </component> <component> <observation moodCode= "EVN" classCode="OBS"> <templateId root="16.840.1.854268.10.20.22.4.2 " /> <id nullFlavor="NA" /> <code codeSystem="local" code="DIETER " displayName="UR PH" /> <statusCode code="completed" /> < effectiveTime value="" /> <value unit="" xsi:type="PQ" value="8.0" /> <interpretationCode codeSystem="local" code="*" /> <referenceRange> <observationRange> <text>5.0-7.0</ text> </observationRange> </referenceRange> </ observation> </component> </organizer> </entry> <entry> <organizer moodCode="EVN" classCode="BATTERY"> <templateId root= "840.1.927138....4.1" /> <id nullFlavor="NA" /> <code codeSystem="local" code="UAMICRO" displayName="UA MICROSCOPIC" /> < statusCode code="completed" /> <component> <observation moodCode= "EVN" classCode="OBS"> <templateId root="06.27.840.1.174919.10..22.4.2 " /> <id nullFlavor="NA" /> <code codeSystem="local" code= "BACU" displayName="UA BACTERIA" /> <statusCode code="completed" /> <effectiveTime value="331097090807" /> <value unit="" xsi:type= "PQ" value="2+" /> <interpretationCode codeSystem="local" code="*" /> <referenceRange> <observationRange> <text> NEGATIVE</text> </observationRange> </referenceRange> </observation> </component> <component> <observation moodCode ="EVN" classCode="OBS"> <templateId root= "06.27.840.1.814423.10..4.2" /> <id nullFlavor="NA" /> < code codeSystem="local" code="EPIU" displayName="UA EPITHELIAL CELLS" /> <statusCode code="completed" /> <effectiveTime value="656335574996" /> <value unit="epi/hpf" xsi:type="PQ" value="1+" /> < referenceRange> <observationRange> <text>0 - 1+</text> </observationRange> </referenceRange> </observation> </component> <component> <observation moodCode="EVN" classCode ="OBS"> <templateId root="06.27.840.1.436781.02.28.22.4.2" /> < id nullFlavor="NA" /> <code codeSystem="local" code="MUCUSU" displayName="UA MUCUS" /> <statusCode code="completed" /> < effectiveTime value="467295183542" /> <value unit="" xsi:type="PQ" value="2+" /> <interpretationCode codeSystem="local" code="*" /> <referenceRange> <observationRange> <text>NEG TO 1+< /text> </observationRange> </referenceRange> </ observation> </component> <component> <observation moodCode= "EVN" classCode="OBS"> <templateId root="06.27.840.1.240660...4.2 " /> <id nullFlavor="NA" /> <code codeSystem="local" code= "RBCU" displayName="UA RBC" /> <statusCode code="completed" /> <effectiveTime value="" /> <value unit="rbc/hpf" xsi:type ="PQ" value="0-3" /> <referenceRange> <observationRange> <text>0 - 3</text> </observationRange> </ referenceRange> </observation> </component> <component> <observation moodCode="EVN" classCode="OBS"> <templateId root= "216.840.1.367641....4.2" /> <id nullFlavor="NA" /> < code codeSystem="local" code="UAVOL" displayName="UA VOLUME FOR EXAM" /> <statusCode code="completed" /> <effectiveTime value="612651388602" /> <value unit="mL" xsi:type="PQ" value="12.0" /> < referenceRange> <observationRange> <text>(12mL STD)</ text> </observationRange> </referenceRange> </ observation> </component> <component> <observation moodCode= "EVN" classCode="OBS"> <templateId root="216.840.1.199369...22.4.2 " /> <id nullFlavor="NA" /> <code codeSystem="local" code= "WBCU" displayName="UA WBC" /> <statusCode code="completed" /> <effectiveTime value="" /> <value unit="wbc/hpf" xsi:type ="PQ" value="5-10" /> <interpretationCode codeSystem="local" code="*" / > <referenceRange> <observationRange> <text>0 - 5</text> </observationRange> </referenceRange> </ observation> </component> </organizer> </entry> <entry> <organizer moodCode="EVN" classCode="BATTERY"> <templateId root= "06.27.840.1.491536.10..22.4.1" /> <id nullFlavor="NA" /> <code codeSystem="local" code="CBCD" displayName="CBC W/DIFF" /> <statusCode code ="completed" /> <component> <observation moodCode="EVN" classCode= "OBS"> <templateId root="840.1.278285.02.28.22.4.2" /> < id nullFlavor="NA" /> <code codeSystem="local" code="BA#" displayName= "BASOPHIL #" /> <statusCode code="completed" /> < effectiveTime value="990813737211" /> <value unit="k/cumm" xsi:type="PQ " value="0.0" /> <referenceRange> <observationRange> <text>0.0-0.2</text> </observationRange> </ referenceRange> </observation> </component> <component> <observation moodCode="EVN" classCode="OBS"> <templateId root= "840.1.177160.02.28.22.4.2" /> <id nullFlavor="NA" /> < code codeSystem="local" code="BA%" displayName="BASOPHIL %" /> <statusCode code="completed" /> <effectiveTime value="508313341648" /> <value unit="%" xsi:type="PQ" value="1" /> < referenceRange> <observationRange> <text>0-1</text> </observationRange> </referenceRange> </observation> </component> <component> <observation moodCode="EVN" classCode= "OBS"> <templateId root="06.27.840.1.244806.10..4.2" /> < id nullFlavor="NA" /> <code codeSystem="local" code="EO#" displayName= "EOSINOPHIL #" /> <statusCode code="completed" /> < effectiveTime value="450905562442" /> <value unit="k/cumm" xsi:type="PQ " value="0.2" /> <referenceRange> <observationRange> <text>0.1-0.5</text> </observationRange> </ referenceRange> </observation> </component> <component> <observation moodCode="EVN" classCode="OBS"> <templateId root= "2.16.840.1.623603.10..4.2" /> <id nullFlavor="NA" /> < code codeSystem="local" code="EO%" displayName="EOSINOPHIL %" /> <statusCode code="completed" /> <effectiveTime value="227643918695" /> <value unit="%" xsi:type="PQ" value="4" /> < referenceRange> <observationRange> <text>2-4</text> </observationRange> </referenceRange> </observation> </component> <component> <observation moodCode="EVN" classCode= "OBS"> <templateId root="2.16.840.1.118643.10..4.2" /> < id nullFlavor="NA" /> <code codeSystem="local" code="GR#" displayName= "GRANULOCYTE #" /> <statusCode code="completed" /> < effectiveTime value="388696430728" /> <value unit="k/cumm" xsi:type="PQ " value="4.1" /> <referenceRange> <observationRange> <text>2.0-9.0</text> </observationRange> </ referenceRange> </observation> </component> <component> <observation moodCode="EVN" classCode="OBS"> <templateId root= "16.840.1.000390.10.22.4.2" /> <id nullFlavor="NA" /> < code codeSystem="local" code="GR%" displayName="GRANULOCYTE %" /> <statusCode code="completed" /> <effectiveTime value="349044743702 " /> <value unit="%" xsi:type="PQ" value="60" /> < referenceRange> <observationRange> <text>50-75</text> </observationRange> </referenceRange> </observation> </component> <component> <observation moodCode="EVN" classCode= "OBS"> <templateId root="06.27.840.1.282412.10.4.2" /> < id nullFlavor="NA" /> <code codeSystem="local" code="LY#" displayName= "LYMPHOCYTE #" /> <statusCode code="completed" /> < effectiveTime value="589909211857" /> <value unit="k/cumm" xsi:type="PQ " value="1.9" /> <referenceRange> <observationRange> <text>1.0-4.0</text> </observationRange> </ referenceRange> </observation> </component> <component> <observation moodCode="EVN" classCode="OBS"> <templateId root= "06.27.840.1.875417.10.2022.4.2" /> <id nullFlavor="NA" /> < code codeSystem="local" code="LY%" displayName="LYMPHOCYTE %" /> <statusCode code="completed" /> <effectiveTime value="557088799568" /> <value unit="%" xsi:type="PQ" value="27" /> < referenceRange> <observationRange> <text>20-30</text> </observationRange> </referenceRange> </observation> </component> <component> <observation moodCode="EVN" classCode= "OBS"> <templateId root="216.840.1.740578.10.20..4.2" /> < id nullFlavor="NA" /> <code codeSystem="local" code="MCH" displayName= "MEAN CELL HGB" /> <statusCode code="completed" /> < effectiveTime value="689658970010" /> <value unit="pg" xsi:type="PQ" value="30.0" /> <referenceRange> <observationRange> <text>27.0-33.0</text> </observationRange> </ referenceRange> </observation> </component> <component> <observation moodCode="EVN" classCode="OBS"> <templateId root= "06.27.840.1.632019.10..4.2" /> <id nullFlavor="NA" /> < code codeSystem="local" code="MCHC" displayName="MEAN CELL HGB CONCENTRATION" / > <statusCode code="completed" /> <effectiveTime value= "395246479294" /> <value unit="g/dL" xsi:type="PQ" value="33.8" /> <referenceRange> <observationRange> <text>32.0- 37.0</text> </observationRange> </referenceRange> </ observation> </component> <component> <observation moodCode= "EVN" classCode="OBS"> <templateId root="06.27.840.1.262567.10.20.4.2 " /> <id nullFlavor="NA" /> <code codeSystem="local" code="MCV " displayName="MEAN CELL VOLUME" /> <statusCode code="completed" /> <effectiveTime value="087359936413" /> <value unit="fl" xsi:type ="PQ" value="88.8" /> <referenceRange> <observationRange> <text>80.0-100.0</text> </observationRange> </ referenceRange> </observation> </component> <component> <observation moodCode="EVN" classCode="OBS"> <templateId root= "2.16.840.1.533903.104.2" /> <id nullFlavor="NA" /> < code codeSystem="local" code="MO#" displayName="MONOCYTE #" /> < statusCode code="completed" /> <effectiveTime value="819231993240" /> <value unit="k/cumm" xsi:type="PQ" value="0.6" /> < referenceRange> <observationRange> <text>0.1-1.0</text> </observationRange> </referenceRange> </observation > </component> <component> <observation moodCode="EVN" classCode="OBS"> <templateId root="2.16.840.1.308442.10.4.2" /> <id nullFlavor="NA" /> <code codeSystem="local" code="MO% " displayName="MONOCYTE %" /> <statusCode code="completed" /> <effectiveTime value="777874677244" /> <value unit="%" xsi: type="PQ" value="9" /> <interpretationCode codeSystem="local" code="*" /> <referenceRange> <observationRange> <text>4- 6</text> </observationRange> </referenceRange> </ observation> </component> <component> <observation moodCode= "EVN" classCode="OBS"> <templateId root="2.16.840.1.310227...22.4.2 " /> <id nullFlavor="NA" /> <code codeSystem="local" code="RBC " displayName="RED BLOOD CELL" /> <statusCode code="completed" /> <effectiveTime value="624557422951" /> <value unit="m/cumm" xsi: type="PQ" value="3.57" /> <interpretationCode codeSystem="local" code= "*" /> <referenceRange> <observationRange> < text>4.00-6.00</text> </observationRange> </referenceRange> </observation> </component> <component> <observation moodCode="EVN" classCode="OBS"> <templateId root= "16.840.1.827948.02.28.22.4.2" /> <id nullFlavor="NA" /> < code codeSystem="local" code="RDW" displayName="RED CELL DISTRIBUTION WIDTH" /> <statusCode code="completed" /> <effectiveTime value= "949800624628" /> <value unit="%" xsi:type="PQ" value="13.5" /> <referenceRange> <observationRange> <text>11.0- 15.6</text> </observationRange> </referenceRange> </ observation> </component> <component> <observation moodCode= "EVN" classCode="OBS"> <templateId root="16.840.1.103478.10.22.4.2 " /> <id nullFlavor="NA" /> <code codeSystem="local" code="WBC " displayName="WHITE BLOOD CELL" /> <statusCode code="completed" /> <effectiveTime value="090200871083" /> <value unit="k/cumm" xsi: type="PQ" value="6.9" /> <referenceRange> <observationRange > <text>5.0-10.0</text> </observationRange> </ referenceRange> </observation> </component> <component> <observation moodCode="EVN" classCode="OBS"> <templateId root= "06.27.840.1.585440.10.20.22.4.2" /> <id nullFlavor="NA" /> < code codeSystem="local" code="HGBT" displayName="HEMOGLOBIN" /> < statusCode code="completed" /> <effectiveTime value="558825835872" /> <value unit="gm/dL" xsi:type="PQ" value="10.7" /> < interpretationCode codeSystem="local" code="*" /> <referenceRange> <observationRange> <text>12.0-16.0</text> </ observationRange> </referenceRange> </observation> </ component> <component> <observation moodCode="EVN" classCode="OBS"> <templateId root="06.27.840.1.207596.10..22.4.2" /> <id nullFlavor="NA" /> <code codeSystem="local" code="HCTT" displayName= "HEMATOCRIT" /> <statusCode code="completed" /> < effectiveTime value="874291508857" /> <value unit="%" xsi:type="PQ " value="31.7" /> <interpretationCode codeSystem="local" code="*" /> <referenceRange> <observationRange> <text>37.0- 47.0</text> </observationRange> </referenceRange> </ observation> </component> <component> <observation moodCode= "EVN" classCode="OBS"> <templateId root="06.27.840.1.768574.10.20.22.4.2 " /> <id nullFlavor="NA" /> <code codeSystem="local" code="PLT " displayName="PLATELET COUNT" /> <statusCode code="completed" /> <effectiveTime value="040507154626" /> <value unit="k/cumm" xsi: type="PQ" value="275" /> <referenceRange> <observationRange > <text>150-450</text> </observationRange> </ referenceRange> </observation> </component> </organizer> </entry > <entry> <organizer moodCode="EVN" classCode="BATTERY"> <templateId root="216.840.1.825780.10..22.4.1" /> <id nullFlavor="NA" /> <code codeSystem="local" code="PREG" displayName=" TEST, SERUM" /> < statusCode code="completed" /> <component> <observation moodCode= "EVN" classCode="OBS"> <templateId root="216.840.1.107959.10..22.4.2 " /> <id nullFlavor="NA" /> <code codeSystem="local" code= "PREG" displayName=" TEST, SERUM" /> <statusCode code= "completed" /> <effectiveTime value="724469667128" /> <value unit="" xsi:type="PQ" value="NEGATIVE" /> <referenceRange> < observationRange> <text>NEGATIVE</text> </ observationRange> </referenceRange> </observation> </ component> </organizer> </entry> <entry> <organizer moodCode="EVN" classCode="BATTERY"> <templateId root="216.840.1.352419.10..22.4.1" /> <id nullFlavor="NA" /> <code codeSystem="local" code="PT" displayName= "PROTHROMBIN TIME WITH INR" /> <statusCode code="completed" /> < component> <observation moodCode="EVN" classCode="OBS"> < templateId root="16.840.1.648644.10..4.2" /> <id nullFlavor="NA " /> <code codeSystem="local" code="INRX" displayName="INTERNATIONAL NORMAL RATIO" /> <statusCode code="completed" /> < effectiveTime value="154745687765" /> <value unit="" xsi:type="PQ" value="1.1" /> <referenceRange> <observationRange> <text>0.9-1.1</text> </observationRange> </ referenceRange> </observation> </component> <component> <observation moodCode="EVN" classCode="OBS"> <templateId root= "06.27.840.1.140767.02.28.22.4.2" /> <id nullFlavor="NA" /> < code codeSystem="local" code="PTPAT" displayName="PROTHROMBIN TIME" /> <statusCode code="completed" /> <effectiveTime value="016636675075" /> <value unit="sec" xsi:type="PQ" value="12.3" /> < referenceRange> <observationRange> <text>10.0-12.9</text > </observationRange> </referenceRange> </observation > </component> </organizer> </entry> <entry> <organizer moodCode= "EVN" classCode="BATTERY"> <templateId root="16.840.1.538777.10..22.4.1 " /> <id nullFlavor="NA" /> <code codeSystem="local" code="PTT" displayName="PARTIAL THROMBOPLASTIN TIME" /> <statusCode code="completed" / > <component> <observation moodCode="EVN" classCode="OBS"> <templateId root="06.27.840.1.237100.02.28.22.4.2" /> <id nullFlavor="NA " /> <code codeSystem="local" code="PTT" displayName="PARTIAL THROMBOPLASTIN TIME" /> <statusCode code="completed" /> < effectiveTime value="539961033247" /> <value unit="sec" xsi:type="PQ" value="33" /> <referenceRange> <observationRange> <text>25-37</text> </observationRange> </referenceRange > </observation> </component> </organizer> </entry> <entry> <organizer moodCode="EVN" classCode="BATTERY"> <templateId root= "06.27.840.1.668012.10.4.1" /> <id nullFlavor="NA" /> <code codeSystem="local" code="METABC" displayName="METABOLIC PANEL, COMPREHN" /> <statusCode code="completed" /> <component> <observation moodCode= "EVN" classCode="OBS"> <templateId root="06.27.840.1.991664.10...4.2 " /> <id nullFlavor="NA" /> <code codeSystem="local" code="K" displayName="POTASSIUM" /> <statusCode code="completed" /> < effectiveTime value="688089721783" /> <value unit="mmol/L" xsi:type="PQ " value="3.1" /> <interpretationCode codeSystem="local" code="*" /> <referenceRange> <observationRange> <text>3.5-5.3 </text> </observationRange> </referenceRange> </ observation> </component> <component> <observation moodCode= "EVN" classCode="OBS"> <templateId root="06.27.840.1.066505.02.28.22.4.2 " /> <id nullFlavor="NA" /> <code codeSystem="local" code= "eGFR" displayName="EST GFR (MDRD)" /> <statusCode code="completed" /> <effectiveTime value="253711722780" /> <value unit="mL/min" xsi:type="PQ" value="> 60" /> <referenceRange> < observationRange> <text>> 59</text> </ observationRange> </referenceRange> </observation> </ component> <component> <observation moodCode="EVN" classCode="OBS"> <templateId root="2.16.840.1.189742.10..4.2" /> <id nullFlavor="NA" /> <code codeSystem="local" code="GAP" displayName= "ANION GAP" /> <statusCode code="completed" /> <effectiveTime value="808649360653" /> <value unit="mmol/L" xsi:type="PQ" value="11" / > <referenceRange> <observationRange> <text>5- 15</text> </observationRange> </referenceRange> </ observation> </component> <component> <observation moodCode= "EVN" classCode="OBS"> <templateId root="2.16.840.1.146658.10...4.2 " /> <id nullFlavor="NA" /> <code codeSystem="local" code= "eCrCl" displayName="EST CrCl (CG)" /> <statusCode code="completed" /> <effectiveTime value="596214572958" /> <value unit="mL/min" xsi:type="PQ" value="> 60" /> <referenceRange> < observationRange> <text>> 59</text> </ observationRange> </referenceRange> </observation> </ component> <component> <observation moodCode="EVN" classCode="OBS"> <templateId root="16.840.1.920322.10..22.4.2" /> <id nullFlavor="NA" /> <code codeSystem="local" code="GLU" displayName= "GLUCOSE" /> <statusCode code="completed" /> <effectiveTime value="902908208495" /> <value unit="mg/dL" xsi:type="PQ" value="82" / > <referenceRange> <observationRange> <text>70- 99</text> </observationRange> </referenceRange> </ observation> </component> <component> <observation moodCode= "EVN" classCode="OBS"> <templateId root="16.840.1.267499.10...4.2 " /> <id nullFlavor="NA" /> <code codeSystem="local" code="CA " displayName="CALCIUM" /> <statusCode code="completed" /> < effectiveTime value="088819947445" /> <value unit="mg/dL" xsi:type="PQ " value="9.0" /> <referenceRange> <observationRange> <text>8.5-10.1</text> </observationRange> </ referenceRange> </observation> </component> <component> <observation moodCode="EVN" classCode="OBS"> <templateId root= "06.27.840.1.332352.10..22.4.2" /> <id nullFlavor="NA" /> < code codeSystem="local" code="BUN" displayName="BLOOD UREA NITROGEN" /> <statusCode code="completed" /> <effectiveTime value="099685762156" / > <value unit="mg/dL" xsi:type="PQ" value="16" /> < referenceRange> <observationRange> <text>7-20</text> </observationRange> </referenceRange> </observation> </component> <component> <observation moodCode="EVN" classCode= "OBS"> <templateId root="216.840.1.181452.10..4.2" /> < id nullFlavor="NA" /> <code codeSystem="local" code="CREAT" displayName ="CREATININE" /> <statusCode code="completed" /> < effectiveTime value="550577783762" /> <value unit="mg/dL" xsi:type="PQ " value="0.9" /> <referenceRange> <observationRange> <text>0.6-1.0</text> </observationRange> </ referenceRange> </observation> </component> <component> <observation moodCode="EVN" classCode="OBS"> <templateId root= "06.27.840.1.783548.02.28.22.4.2" /> <id nullFlavor="NA" /> < code codeSystem="local" code="NA" displayName="SODIUM" /> <statusCode code="completed" /> <effectiveTime value="847316628501" /> < value unit="mmol/L" xsi:type="PQ" value="144" /> <referenceRange> <observationRange> <text>135-148</text> </ observationRange> </referenceRange> </observation> </ component> <component> <observation moodCode="EVN" classCode="OBS"> <templateId root="16.840.1.959569...4.2" /> <id nullFlavor="NA" /> <code codeSystem="local" code="CL" displayName= "CHLORIDE" /> <statusCode code="completed" /> <effectiveTime value="831469554770" /> <value unit="mmol/L" xsi:type="PQ" value="103" /> <referenceRange> <observationRange> <text>98 -110</text> </observationRange> </referenceRange> </ observation> </component> <component> <observation moodCode= "EVN" classCode="OBS"> <templateId root="16.840.1.809214.10..22.4.2 " /> <id nullFlavor="NA" /> <code codeSystem="local" code="AST " displayName="AST/SGOT" /> <statusCode code="completed" /> < effectiveTime value="416681512917" /> <value unit="Units/L" xsi:type= "PQ" value="14" /> <referenceRange> <observationRange> <text>10-37</text> </observationRange> </ referenceRange> </observation> </component> <component> <observation moodCode="EVN" classCode="OBS"> <templateId root= "06.27.840.1.531646.10...4.2" /> <id nullFlavor="NA" /> < code codeSystem="local" code="ALT" displayName="ALT/SGPT" /> < statusCode code="completed" /> <effectiveTime value="503786319584" /> <value unit="Units/L" xsi:type="PQ" value="9" /> < referenceRange> <observationRange> <text>< 66</text> </observationRange> </referenceRange> </observation > </component> <component> <observation moodCode="EVN" classCode="OBS"> <templateId root="06.27.840.1.447895.10.20.22.4.2" /> <id nullFlavor="NA" /> <code codeSystem="local" code="CO2" displayName="CARBON DIOXIDE" /> <statusCode code="completed" /> <effectiveTime value="843882153195" /> <value unit="mmol/L" xsi:type ="PQ" value="30" /> <referenceRange> <observationRange> <text>21-32</text> </observationRange> </ referenceRange> </observation> </component> <component> <observation moodCode="EVN" classCode="OBS"> <templateId root= "216.840.1.416280.02.28.22.4.2" /> <id nullFlavor="NA" /> < code codeSystem="local" code="TP" displayName="TOTAL PROTEIN" /> < statusCode code="completed" /> <effectiveTime value="120946263078" /> <value unit="gm/dL" xsi:type="PQ" value="6.8" /> < referenceRange> <observationRange> <text>6.4-8.2</text> </observationRange> </referenceRange> </observation > </component> <component> <observation moodCode="EVN" classCode="OBS"> <templateId root="06.27.840.1.366424.02.28.22.4.2" /> <id nullFlavor="NA" /> <code codeSystem="local" code="ALB" displayName="ALBUMIN" /> <statusCode code="completed" /> < effectiveTime value="058496508813" /> <value unit="gm/dL" xsi:type="PQ " value="3.6" /> <referenceRange> <observationRange> <text>3.4-5.0</text> </observationRange> </ referenceRange> </observation> </component> <component> <observation moodCode="EVN" classCode="OBS"> <templateId root= "216.840.1.556634.22.4.2" /> <id nullFlavor="NA" /> < code codeSystem="local" code="BILTOT" displayName="BILI TOTAL" /> < statusCode code="completed" /> <effectiveTime value="254483647481" /> <value unit="mg/dL" xsi:type="PQ" value="0.3" /> < referenceRange> <observationRange> <text>0.0-1.0</text> </observationRange> </referenceRange> </observation > </component> <component> <observation moodCode="EVN" classCode="OBS"> <templateId root="16.840.1.504614.10..4.2" /> <id nullFlavor="NA" /> <code codeSystem="local" code="ALKP" displayName="ALKALINE PHOSPHATASE TOTAL" /> <statusCode code="completed " /> <effectiveTime value="232853123797" /> <value unit="IU/L " xsi:type="PQ" value="66" /> <referenceRange> < observationRange> <text>45-117</text> </observationRange > </referenceRange> </observation> </component> </ organizer> </entry> <entry> <organizer moodCode="EVN" classCode="BATTERY"> <templateId root="06.27.840.1.939017.02.28.22.4.1" /> <id nullFlavor= "NA" /> <code codeSystem="local" code="TSH" displayName="THYROID STIM HORMONE (TSH)" /> <statusCode code="completed" /> <component> < observation moodCode="EVN" classCode="OBS"> <templateId root= "06.27.840.1.333302.10...4.2" /> <id nullFlavor="NA" /> < code codeSystem="local" code="TSH" displayName="THYROID STIM HORMONE (TSH)" /> <statusCode code="completed" /> <effectiveTime value= "981786929628" /> <value unit="uIU/mL" xsi:type="PQ" value="2.48" /> <referenceRange> <observationRange> <text>0.34- 4.82</text> </observationRange> </referenceRange> </ observation> </component> </organizer> </entry> <entry> <organizer moodCode="EVN" classCode="BATTERY"> <templateId root= "16.840.1.750847.10..22.4.1" /> <id nullFlavor="NA" /> <code codeSystem="local" code="ORD68" displayName="Urinalysis" /> <statusCode code="completed" /> <component> <observation moodCode="EVN" classCode="OBS"> <templateId root="06.27.840.1.135555.10..22.4.2" /> <id nullFlavor="NA" /> <code codeSystem="local" code="[id number] " displayName="Icotest" /> <statusCode code="completed" /> < effectiveTime value="501679613575" /> <value unit="" xsi:type="PQ" value="N/A" /> <interpretationCode codeSystem="local" code="A" /> <referenceRange> <observationRange> <text>Negative< /text> </observationRange> </referenceRange> </ observation> </component> <component> <observation moodCode= "EVN" classCode="OBS"> <templateId root="16.840.1.698511.10..22.4.2 " /> <id nullFlavor="NA" /> <code codeSystem="local" code= "Kpy742" displayName="Urine Crystals" /> <statusCode code="completed" / > <effectiveTime value="293895312522" /> <value unit="" xsi: type="PQ" value="Amorphous material: abundant/HPF" /> <referenceRange> <observationRange> <text /> </ observationRange> </referenceRange> </observation> </ component> <component> <observation moodCode="EVN" classCode="OBS"> <templateId root="216.840.1.738069.10..22.4.2" /> <id nullFlavor="NA" /> <code codeSystem="local" code="Mfb532" displayName= "Urine Volume" /> <statusCode code="completed" /> < effectiveTime value="637794482068" /> <value unit="" xsi:type="PQ" value="Urine Volume Sufficient (10mL)" /> <referenceRange> < observationRange> <text /> </observationRange> </referenceRange> </observation> </component> <component> <observation moodCode="EVN" classCode="OBS"> <templateId root= "216.840.1.106027.10..4.2" /> <id nullFlavor="NA" /> < code codeSystem="local" code="Bax367" displayName="Urine-Appearance" /> <statusCode code="completed" /> <effectiveTime value="415889043188" / > <value unit="" xsi:type="PQ" value="Cloudy" /> < interpretationCode codeSystem="local" code="A" /> <referenceRange> <observationRange> <text>Clear</text> </ observationRange> </referenceRange> </observation> </ component> <component> <observation moodCode="EVN" classCode="OBS"> <templateId root="216.840.1.213796.10..22.4.2" /> <id nullFlavor="NA" /> <code codeSystem="local" code="[id number]" displayName= "Urine-Bacteria" /> <statusCode code="completed" /> < effectiveTime value="656392709055" /> <value unit="" xsi:type="PQ" value="Trace" /> <interpretationCode codeSystem="local" code="A" /> <referenceRange> <observationRange> <text> </text > </observationRange> </referenceRange> </observation > </component> <component> <observation moodCode="EVN" classCode="OBS"> <templateId root="16.840.1.635760.10..22.4.2" /> <id nullFlavor="NA" /> <code codeSystem="local" code="Ujy994" displayName="Urine-Bilirubin" /> <statusCode code="completed" /> <effectiveTime value="965621486054" /> <value unit="" xsi:type="PQ " value="Negative" /> <referenceRange> <observationRange> <text>Negative</text> </observationRange> </ referenceRange> </observation> </component> <component> <observation moodCode="EVN" classCode="OBS"> <templateId root= "06.27.840.1.809479.10..22.4.2" /> <id nullFlavor="NA" /> < code codeSystem="local" code="Ejn477" displayName="Urine-Blood" /> < statusCode code="completed" /> <effectiveTime value="781907316444" /> <value unit="" xsi:type="PQ" value="Negative" /> < referenceRange> <observationRange> <text>Negative</text > </observationRange> </referenceRange> </observation > </component> <component> <observation moodCode="EVN" classCode="OBS"> <templateId root="840.1.597519.10..22.4.2" /> <id nullFlavor="NA" /> <code codeSystem="local" code="Xge411" displayName="Urine-Color" /> <statusCode code="completed" /> < effectiveTime value="391169499430" /> <value unit="" xsi:type="PQ" value="Yellow" /> <referenceRange> <observationRange> <text>Colorless-Lt. Yellow</text> </observationRange> </referenceRange> </observation> </component> <component> <observation moodCode="EVN" classCode="OBS"> <templateId root= "2.16.840.1.928050.02.28.22.4.2" /> <id nullFlavor="NA" /> < code codeSystem="local" code="Vda811" displayName="Urine-Epithelial Cells" /> <statusCode code="completed" /> <effectiveTime value= "778821119566" /> <value unit="" xsi:type="PQ" value="5-10/HPF" /> <interpretationCode codeSystem="local" code="A" /> < referenceRange> <observationRange> <text> </text> </observationRange> </referenceRange> </observation> </component> <component> <observation moodCode="EVN" classCode="OBS "> <templateId root="216.840.1.025402.22.4.2" /> <id nullFlavor="NA" /> <code codeSystem="local" code="Ajq277" displayName= "Urine-Glucose" /> <statusCode code="completed" /> < effectiveTime value="609927115172" /> <value unit="" xsi:type="PQ" value="Negative" /> <referenceRange> <observationRange> <text>Negative</text> </observationRange> </ referenceRange> </observation> </component> <component> <observation moodCode="EVN" classCode="OBS"> <templateId root= "216.840.1.180269.10.4.2" /> <id nullFlavor="NA" /> < code codeSystem="local" code="Pok981" displayName="Urine-Ketones" /> < statusCode code="completed" /> <effectiveTime value="563784897813" /> <value unit="" xsi:type="PQ" value="Negative" /> < referenceRange> <observationRange> <text>Negative</text > </observationRange> </referenceRange> </observation > </component> <component> <observation moodCode="EVN" classCode="OBS"> <templateId root="216.840.1.668049.02.28.22.4.2" /> <id nullFlavor="NA" /> <code codeSystem="local" code="Kpx650" displayName="Urine-Leukocytes" /> <statusCode code="completed" /> <effectiveTime value="878758980713" /> <value unit="" xsi:type="PQ " value="1+" /> <interpretationCode codeSystem="local" code="A" /> <referenceRange> <observationRange> <text>Negative </text> </observationRange> </referenceRange> </ observation> </component> <component> <observation moodCode= "EVN" classCode="OBS"> <templateId root="16.840.1.759828.10..4.2 " /> <id nullFlavor="NA" /> <code codeSystem="local" code= "Hcd873" displayName="Urine-Nitrite" /> <statusCode code="completed" / > <effectiveTime value="215852193912" /> <value unit="" xsi: type="PQ" value="Negative" /> <referenceRange> < observationRange> <text>Negative</text> </ observationRange> </referenceRange> </observation> </ component> <component> <observation moodCode="EVN" classCode="OBS"> <templateId root="216.840.1.452451.10.20.22.4.2" /> <id nullFlavor="NA" /> <code codeSystem="local" code="Dbz504" displayName= "Urine-Other" /> <statusCode code="completed" /> < effectiveTime value="448231378103" /> <value unit="" xsi:type="PQ" value=" Urine Saved if Culture Needed (48hrs from time of collection)" /> <interpretationCode codeSystem="local" code="A" /> <referenceRange > <observationRange> <text> </text> </ observationRange> </referenceRange> </observation> </ component> <component> <observation moodCode="EVN" classCode="OBS"> <templateId root="06.27.840.1.074277.10..4.2" /> <id nullFlavor="NA" /> <code codeSystem="local" code="Gja012" displayName= "Urine-pH" /> <statusCode code="completed" /> <effectiveTime value="043715058763" /> <value unit="" xsi:type="PQ" value="7.5" /> <referenceRange> <observationRange> <text>5-8.5</ text> </observationRange> </referenceRange> </ observation> </component> <component> <observation moodCode= "EVN" classCode="OBS"> <templateId root="216.840.1.529104.10.20.22.4.2 " /> <id nullFlavor="NA" /> <code codeSystem="local" code= "Tyz177" displayName="Urine-Protein" /> <statusCode code="completed" / > <effectiveTime value="743896342778" /> <value unit="" xsi: type="PQ" value="Negative" /> <referenceRange> < observationRange> <text>Negative</text> </ observationRange> </referenceRange> </observation> </ component> <component> <observation moodCode="EVN" classCode="OBS"> <templateId root="16.840.1.221728.10.20.22.4.2" /> <id nullFlavor="NA" /> <code codeSystem="local" code="Cih371" displayName= "Urine-RBC" /> <statusCode code="completed" /> <effectiveTime value="374370535131" /> <value unit="" xsi:type="PQ" value="0-2/HPF" / > <interpretationCode codeSystem="local" code="A" /> < referenceRange> <observationRange> <text> </text> </observationRange> </referenceRange> </observation> </component> <component> <observation moodCode="EVN" classCode="OBS "> <templateId root="16.840.1.217071.10.20.22.4.2" /> <id nullFlavor="NA" /> <code codeSystem="local" code="Anq630" displayName= "Urine-Specific Mcclelland" /> <statusCode code="completed" /> < effectiveTime value="511894435113" /> <value unit="" xsi:type="PQ" value="1.020" /> <referenceRange> <observationRange> <text>1.000-1.030</text> </observationRange> </ referenceRange> </observation> </component> <component> <observation moodCode="EVN" classCode="OBS"> <templateId root= "06.27.840.1.887457.1022.4.2" /> <id nullFlavor="NA" /> < code codeSystem="local" code="Vyy443" displayName="Urine-WBC" /> < statusCode code="completed" /> <effectiveTime value="968856740114" /> <value unit="" xsi:type="PQ" value="2-5/HPF" /> < interpretationCode codeSystem="local" code="A" /> <referenceRange> <observationRange> <text> </text> </ observationRange> </referenceRange> </observation> </ component> <component> <observation moodCode="EVN" classCode="OBS"> <templateId root="840.1.996097.22.4.2" /> <id nullFlavor="NA" /> <code codeSystem="local" code="Cgb027" displayName= "Urobilinogen" /> <statusCode code="completed" /> < effectiveTime value="615118590597" /> <value unit="" xsi:type="PQ" value="0.2" /> <referenceRange> <observationRange> <text>0.2-1.0</text> </observationRange> </ referenceRange> </observation> </component> </organizer> </entry > <entry> <organizer moodCode="EVN" classCode="BATTERY"> <templateId root="06.27.840.1.560838.22.4.1" /> <id nullFlavor="NA" /> <code codeSystem="local" code="QSL487" displayName="XM (2) LRPC" /> <statusCode code="completed" /> <component> <observation moodCode="EVN" classCode="OBS"> <templateId root="840.1.799351.02.28.22.4.2" /> <id nullFlavor="NA" /> <code codeSystem="local" code="Pag515" displayName="CROSSMATCH" /> <statusCode code="completed" /> < effectiveTime value="900694545095" /> <value unit="" xsi:type="PQ" value="COMPATIBLE X 2" /> <referenceRange> <observationRange > <text /> </observationRange> </referenceRange > </observation> </component> <component> <observation moodCode="EVN" classCode="OBS"> <templateId root= "2.16.840.1.809392.02.28.22.4.2" /> <id nullFlavor="NA" /> < code codeSystem="local" code="Res87" displayName="Hct" /> <statusCode code="completed" /> <effectiveTime value="617760132712" /> < value unit="%" xsi:type="PQ" value="26.9" /> <interpretationCode codeSystem="local" code="L" /> <referenceRange> < observationRange> <text>36.0-46.0</text> </ observationRange> </referenceRange> </observation> </ component> <component> <observation moodCode="EVN" classCode="OBS"> <templateId root="216.840.1.382354.10.4.2" /> <id nullFlavor="NA" /> <code codeSystem="local" code="Dpo008" displayName= "Hgb" /> <statusCode code="completed" /> <effectiveTime value= "243143324145" /> <value unit="g/dL" xsi:type="PQ" value="7.6" /> <interpretationCode codeSystem="local" code="L" /> <referenceRange > <observationRange> <text>13.0-15.0</text> < /observationRange> </referenceRange> </observation> </ component> </organizer> </entry> <entry> <organizer moodCode="EVN" classCode="BATTERY"> <templateId root="06.27.840.1.356295.10..4.1" /> <id nullFlavor="NA" /> <code codeSystem="local" code="JAQ3034" displayName="Leukoreduced Packed RBC Unit Checkout" /> <statusCode code= "completed" /> <component> <observation moodCode="EVN" classCode= "OBS"> <templateId root="840.1.182601.02.28.22.4.2" /> < id nullFlavor="NA" /> <code codeSystem="local" code="Obl733" displayName="LRPRBC Checkout" /> <statusCode code="completed" /> <effectiveTime value="959128207849" /> <value unit="" xsi:type="PQ " value="Checked Out." /> <referenceRange> <observationRange > <text /> </observationRange> </referenceRange > </observation> </component> </organizer> </entry> <entry> <organizer moodCode="EVN" classCode="BATTERY"> <templateId root= "06.27.840.1.022493.02.28.22.4.1" /> <id nullFlavor="NA" /> <code codeSystem="local" code="NYQ984" displayName="Ferritin" /> <statusCode code ="completed" /> <component> <observation moodCode="EVN" classCode= "OBS"> <templateId root="16.840.1.640946.10..4.2" /> < id nullFlavor="NA" /> <code codeSystem="local" code="Klj744" displayName="Ferritin" /> <statusCode code="completed" /> < effectiveTime value="131771766682" /> <value unit="ng/mL" xsi:type="PQ " value="3.90" /> <interpretationCode codeSystem="local" code="L" /> <referenceRange> <observationRange> <text>4.63- 204.00</text> </observationRange> </referenceRange> < /observation> </component> </organizer> </entry> <entry> < organizer moodCode="EVN" classCode="BATTERY"> <templateId root= "2.16.840.1.557792.10..22.4.1" /> <id nullFlavor="NA" /> <code codeSystem="local" code="YSG258" displayName="VIT B-12" /> <statusCode code ="completed" /> <component> <observation moodCode="EVN" classCode= "OBS"> <templateId root="2.16.840.1.444060.10..22.4.2" /> < id nullFlavor="NA" /> <code codeSystem="local" code="Pwt407" displayName="Vitamin B12" /> <statusCode code="completed" /> < effectiveTime value="497762747997" /> <value unit="pg/mL" xsi:type="PQ " value="221.00" /> <referenceRange> <observationRange> <text>213.00-816.00</text> </observationRange> </ referenceRange> </observation> </component> </organizer> </entry > <entry> <organizer moodCode="EVN" classCode="BATTERY"> <templateId root="2.16.840.1.054612.10.20.22.4.1" /> <id nullFlavor="NA" /> <code codeSystem="local" code="TBF958" displayName="Folate" /> <statusCode code= "completed" /> <component> <observation moodCode="EVN" classCode= "OBS"> <templateId root="2.16.840.1.995677.10..22.4.2" /> < id nullFlavor="NA" /> <code codeSystem="local" code="Zaw277" displayName="Folate" /> <statusCode code="completed" /> < effectiveTime value="219084099324" /> <value unit="ng/mL" xsi:type="PQ " value="15.40" /> <referenceRange> <observationRange> <text>7.00-31.40</text> </observationRange> </ referenceRange> </observation> </component> </organizer> </entry > <entry> <organizer moodCode="EVN" classCode="BATTERY"> <templateId root="2.16.840.1.640434.10..22.4.1" /> <id nullFlavor="NA" /> <code codeSystem="local" code="EKA9340" displayName="Leukoreduced Packed RBC Unit Checkout" /> <statusCode code="completed" /> <component> < observation moodCode="EVN" classCode="OBS"> <templateId root= "2.16.840.1.193724.10..22.4.2" /> <id nullFlavor="NA" /> < code codeSystem="local" code="Uat954" displayName="LRPRBC Checkout" /> <statusCode code="completed" /> <effectiveTime value="407902104073" /> <value unit="" xsi:type="PQ" value="Checked Out." /> < referenceRange> <observationRange> <text /> < /observationRange> </referenceRange> </observation> </ component> </organizer> </entry> <entry> <organizer moodCode="EVN" classCode="BATTERY"> <templateId root="2.16.840.1.721245.10..22.4.1" /> <id nullFlavor="NA" /> <code codeSystem="local" code="ROB278" displayName="Rapid Drug Screen,Medical" /> <statusCode code="completed" /> <component> <observation moodCode="EVN" classCode="OBS"> < templateId root="216.840.1.418760.02.28.22.4.2" /> <id nullFlavor="NA " /> <code codeSystem="local" code="Emd545" displayName="Amphetamine" / > <statusCode code="completed" /> <effectiveTime value= "476436179459" /> <value unit="" xsi:type="PQ" value="NEGATIVE" /> <referenceRange> <observationRange> <text>NEGATIVE </text> </observationRange> </referenceRange> </ observation> </component> <component> <observation moodCode= "EVN" classCode="OBS"> <templateId root="216.840.1.681231.02.28.22.4.2 " /> <id nullFlavor="NA" /> <code codeSystem="local" code= "Nen257" displayName="Barbiturates" /> <statusCode code="completed" /> <effectiveTime value="585279933917" /> <value unit="" xsi: type="PQ" value="NEGATIVE" /> <referenceRange> < observationRange> <text>NEGATIVE</text> </ observationRange> </referenceRange> </observation> </ component> <component> <observation moodCode="EVN" classCode="OBS"> <templateId root="216.840.1.839306.10..4.2" /> <id nullFlavor="NA" /> <code codeSystem="local" code="Oac773" displayName= "Benzodiazepines" /> <statusCode code="completed" /> < effectiveTime value="876121639269" /> <value unit="" xsi:type="PQ" value="NEGATIVE" /> <referenceRange> <observationRange> <text>NEGATIVE</text> </observationRange> </ referenceRange> </observation> </component> <component> <observation moodCode="EVN" classCode="OBS"> <templateId root= "06.27.840.1.464761.10.22.4.2" /> <id nullFlavor="NA" /> < code codeSystem="local" code="Svt280" displayName="Cocaine" /> < statusCode code="completed" /> <effectiveTime value="887364922702" /> <value unit="" xsi:type="PQ" value="NEGATIVE" /> < referenceRange> <observationRange> <text>NEGATIVE</text > </observationRange> </referenceRange> </observation > </component> <component> <observation moodCode="EVN" classCode="OBS"> <templateId root="06.27.840.1.391256.1022.4.2" /> <id nullFlavor="NA" /> <code codeSystem="local" code="Mnp567" displayName="Marijuana" /> <statusCode code="completed" /> < effectiveTime value="672510855245" /> <value unit="" xsi:type="PQ" value="NEGATIVE" /> <referenceRange> <observationRange> <text>NEGATIVE</text> </observationRange> </ referenceRange> </observation> </component> <component> <observation moodCode="EVN" classCode="OBS"> <templateId root= "06.27.840.1.431328.10.20.22.4.2" /> <id nullFlavor="NA" /> < code codeSystem="local" code="Saf237" displayName="Methylenedioxymethamphetamine " /> <statusCode code="completed" /> <effectiveTime value= "570868564484" /> <value unit="" xsi:type="PQ" value="NEGATIVE" /> <referenceRange> <observationRange> <text>NEGATIVE </text> </observationRange> </referenceRange> </ observation> </component> <component> <observation moodCode= "EVN" classCode="OBS"> <templateId root="840.1.624853.02.28.224.2 " /> <id nullFlavor="NA" /> <code codeSystem="local" code= "Cvg651" displayName="Opiates" /> <statusCode code="completed" /> <effectiveTime value="386291888211" /> <value unit="" xsi:type="PQ " value="NEGATIVE" /> <referenceRange> <observationRange> <text>NEGATIVE</text> </observationRange> </ referenceRange> </observation> </component> <component> <observation moodCode="EVN" classCode="OBS"> <templateId root= "840.1.066728.02.28.22.4.2" /> <id nullFlavor="NA" /> < code codeSystem="local" code="Djf832" displayName="Oxycodone" /> < statusCode code="completed" /> <effectiveTime value="783721869409" /> <value unit="" xsi:type="PQ" value="NEGATIVE" /> < referenceRange> <observationRange> <text>NEGATIVE</text > </observationRange> </referenceRange> </observation > </component> <component> <observation moodCode="EVN" classCode="OBS"> <templateId root="06.27.830.1.237619.10.22.4.2" /> <id nullFlavor="NA" /> <code codeSystem="local" code="Xof101" displayName="Phencyclidine" /> <statusCode code="completed" /> <effectiveTime value="528847963064" /> <value unit="" xsi:type="PQ" value="NEGATIVE" /> <referenceRange> <observationRange> <text>NEGATIVE</text> </observationRange> </ referenceRange> </observation> </component> <component> <observation moodCode="EVN" classCode="OBS"> <templateId root= "2.16.840.1.404004.02.28.22.4.2" /> <id nullFlavor="NA" /> < code codeSystem="local" code="Wgi758" displayName="Propoxyphene" /> < statusCode code="completed" /> <effectiveTime value="579603228719" /> <value unit="" xsi:type="PQ" value="NEGATIVE" /> < referenceRange> <observationRange> <text>NEGATIVE</text > </observationRange> </referenceRange> </observation > </component> <component> <observation moodCode="EVN" classCode="OBS"> <templateId root="2.16.840.1.106551.02.28.22.4.2" /> <id nullFlavor="NA" /> <code codeSystem="local" code="Ioc036" displayName="Tricyclic Antidepressant" /> <statusCode code="completed" /> <effectiveTime value="200621600510" /> <value unit="" xsi: type="PQ" value="NEGATIVE" /> <referenceRange> < observationRange> <text>NEGATIVE</text> </ observationRange> </referenceRange> </observation> </ component> </organizer> </entry> <entry> <organizer moodCode="EVN" classCode="BATTERY"> <templateId root="216.840.1.014326.10..4.1" /> <id nullFlavor="NA" /> <code codeSystem="local" code="ORD92" displayName="Surgical Pathology" /> <statusCode code="completed" /> < component> <observation moodCode="EVN" classCode="OBS"> < templateId root="06.27.840.1.247766.02.28.22.4.2" /> <id nullFlavor="NA " /> <code codeSystem="local" code="Nom7283" displayName="Surg Path" / > <statusCode code="completed" /> <effectiveTime value= "450412065861" /> <value unit="" xsi:type="PQ" value="Sent to [facility]" /> <referenceRange> <observationRange> <text /> </observationRange> </referenceRange> </ observation> </component> </organizer> </entry> <entry> <organizer moodCode="EVN" classCode="BATTERY"> <templateId root= "06.27.840.1.566205.02.28.22.4.1" /> <id nullFlavor="NA" /> <code codeSystem="local" code="KPH709" displayName="IFOBT Occult Blood" /> < statusCode code="completed" /> <component> <observation moodCode= "EVN" classCode="OBS"> <templateId root="16.840.1.330564.10..4.2 " /> <id nullFlavor="NA" /> <code codeSystem="local" code= "Kdt988" displayName="IFOBT Occult Blood" /> <statusCode code= "completed" /> <effectiveTime value="114485482713" /> <value unit="" xsi:type="PQ" value="NEGATIVE" /> <referenceRange> < observationRange> <text>Negative</text> </ observationRange> </referenceRange> </observation> </ component> </organizer> </entry> <entry> <organizer moodCode="EVN" classCode="BATTERY"> <templateId root="06.27.840.1.507937.1022.4.1" /> <id nullFlavor="NA" /> <code codeSystem="local" code="UIX371" displayName="HH" /> <statusCode code="completed" /> <component> <observation moodCode="EVN" classCode="OBS"> <templateId root= "06.27.840.1.914724.10.22.4.2" /> <id nullFlavor="NA" /> < code codeSystem="local" code="Res87" displayName="Hct" /> <statusCode code="completed" /> <effectiveTime value="195228869397" /> < value unit="%" xsi:type="PQ" value="31.7" /> <interpretationCode codeSystem="local" code="L" /> <referenceRange> < observationRange> <text>36.0-46.0</text> </ observationRange> </referenceRange> </observation> </ component> <component> <observation moodCode="EVN" classCode="OBS"> <templateId root="840.1.856090.1022.4.2" /> <id nullFlavor="NA" /> <code codeSystem="local" code="Xay627" displayName= "Hgb" /> <statusCode code="completed" /> <effectiveTime value= "332527266538" /> <value unit="g/dL" xsi:type="PQ" value="9.4" /> <interpretationCode codeSystem="local" code="L" /> <referenceRange > <observationRange> <text>13.0-15.0</text> < /observationRange> </referenceRange> </observation> </ component> </organizer> </entry> <entry> <organizer moodCode="EVN" classCode="BATTERY"> <templateId root="216.840.1.774266.10...4.1" /> <id nullFlavor="NA" /> <code codeSystem="local" code="MYY515" displayName="IFOBT Occult Blood" /> <statusCode code="completed" /> < component> <observation moodCode="EVN" classCode="OBS"> < templateId root="216.840.1.731296.10...4.2" /> <id nullFlavor="NA " /> <code codeSystem="local" code="Gbd495" displayName="IFOBT Occult Blood" /> <statusCode code="completed" /> <effectiveTime value ="379560087260" /> <value unit="" xsi:type="PQ" value="NEGATIVE" /> <referenceRange> <observationRange> <text> Negative</text> </observationRange> </referenceRange> </observation> </component> </organizer> </entry> <entry> < organizer moodCode="EVN" classCode="BATTERY"> <templateId root= "216.840.1.230075.10...4.1" /> <id nullFlavor="NA" /> <code codeSystem="local" code="ORD2" displayName="CBC with Auto Diff" /> < statusCode code="completed" /> <component> <observation moodCode= "EVN" classCode="OBS"> <templateId root="2.840.1.304039.02.28.22.4.2 " /> <id nullFlavor="NA" /> <code codeSystem="local" code= "Lpt657" displayName="Baso%" /> <statusCode code="completed" /> <effectiveTime value="" /> <value unit="%" xsi: type="PQ" value="1.10" /> <referenceRange> <observationRange > <text>0.00-2.50</text> </observationRange> </ referenceRange> </observation> </component> <component> <observation moodCode="EVN" classCode="OBS"> <templateId root= "2.16.840.1.427713.02.28.22.4.2" /> <id nullFlavor="NA" /> < code codeSystem="local" code="Fwn110" displayName="Eos" /> <statusCode code="completed" /> <effectiveTime value="" /> < value unit="K/uL" xsi:type="PQ" value="0.3" /> <referenceRange> <observationRange> <text>0.0-0.7</text> </ observationRange> </referenceRange> </observation> </ component> <component> <observation moodCode="EVN" classCode="OBS"> <templateId root="2.16.840.1.861582.02.28.22.4.2" /> <id nullFlavor="NA" /> <code codeSystem="local" code="Swl385" displayName= "Eos%" /> <statusCode code="completed" /> <effectiveTime value="" /> <value unit="%" xsi:type="PQ" value="4.2" / > <referenceRange> <observationRange> <text>0.0 -7.0</text> </observationRange> </referenceRange> </ observation> </component> <component> <observation moodCode= "EVN" classCode="OBS"> <templateId root="06.27.840.1.456706.10..4.2 " /> <id nullFlavor="NA" /> <code codeSystem="local" code= "Res87" displayName="Hct" /> <statusCode code="completed" /> < effectiveTime value="" /> <value unit="%" xsi:type="PQ " value="34.3" /> <interpretationCode codeSystem="local" code="L" /> <referenceRange> <observationRange> <text>36.0- 46.0</text> </observationRange> </referenceRange> </ observation> </component> <component> <observation moodCode= "EVN" classCode="OBS"> <templateId root="06.27.840.1.169205.02.28.22.4.2 " /> <id nullFlavor="NA" /> <code codeSystem="local" code= "Vhz178" displayName="Hgb" /> <statusCode code="completed" /> <effectiveTime value="351222375177" /> <value unit="g/dL" xsi:type="PQ " value="10.5" /> <interpretationCode codeSystem="local" code="L" /> <referenceRange> <observationRange> <text>13.0- 15.0</text> </observationRange> </referenceRange> </ observation> </component> <component> <observation moodCode= "EVN" classCode="OBS"> <templateId root="06.27.840.1.495387.02.28.22.4.2 " /> <id nullFlavor="NA" /> <code codeSystem="local" code= "Uvf413" displayName="Lym" /> <statusCode code="completed" /> <effectiveTime value="613808504778" /> <value unit="K/uL" xsi:type="PQ " value="1.98" /> <referenceRange> <observationRange> <text>0.60-3.40</text> </observationRange> </ referenceRange> </observation> </component> <component> <observation moodCode="EVN" classCode="OBS"> <templateId root= "06.27.840.1.719686.10.4.2" /> <id nullFlavor="NA" /> < code codeSystem="local" code="Ctr252" displayName="Lym%" /> < statusCode code="completed" /> <effectiveTime value="" /> <value unit="%" xsi:type="PQ" value="26.9" /> < referenceRange> <observationRange> <text>10.0-50.0</text > </observationRange> </referenceRange> </observation > </component> <component> <observation moodCode="EVN" classCode="OBS"> <templateId root="06.27.840.1.061883.02.28.22.4.2" /> <id nullFlavor="NA" /> <code codeSystem="local" code="Res89" displayName="MCH" /> <statusCode code="completed" /> < effectiveTime value="" /> <value unit="pg" xsi:type="PQ" value="22.5" /> <interpretationCode codeSystem="local" code="L" /> <referenceRange> <observationRange> <text>27.0- 31.0</text> </observationRange> </referenceRange> </ observation> </component> <component> <observation moodCode= "EVN" classCode="OBS"> <templateId root="06.27.830.1.104238.10.20.22.4.2 " /> <id nullFlavor="NA" /> <code codeSystem="local" code= "Res90" displayName="[facility]" /> <statusCode code="completed" /> <effectiveTime value="" /> <value unit="g/dL" xsi:type="PQ " value="30.6" /> <interpretationCode codeSystem="local" code="L" /> <referenceRange> <observationRange> <text>32.0- 36.0</text> </observationRange> </referenceRange> </ observation> </component> <component> <observation moodCode= "EVN" classCode="OBS"> <templateId root="06.27.840.1.540765.10..4.2 " /> <id nullFlavor="NA" /> <code codeSystem="local" code= "Res88" displayName="MCV" /> <statusCode code="completed" /> < effectiveTime value="" /> <value unit="fL" xsi:type="PQ" value="73.4" /> <interpretationCode codeSystem="local" code="L" /> <referenceRange> <observationRange> <text>80.0- 97.0</text> </observationRange> </referenceRange> </ observation> </component> <component> <observation moodCode= "EVN" classCode="OBS"> <templateId root="06.27.840.1.311436.10.20.22.4.2 " /> <id nullFlavor="NA" /> <code codeSystem="local" code= "Xhi814" displayName="Rutherford%" /> <statusCode code="completed" /> <effectiveTime value="" /> <value unit="%" xsi: type="PQ" value="7.6" /> <referenceRange> <observationRange > <text>0.0-12.0</text> </observationRange> </ referenceRange> </observation> </component> <component> <observation moodCode="EVN" classCode="OBS"> <templateId root= "216.840.1.720133.10.20.22.4.2" /> <id nullFlavor="NA" /> < code codeSystem="local" code="Djh064" displayName="MPV" /> <statusCode code="completed" /> <effectiveTime value="982615762109" /> < value unit="fL" xsi:type="PQ" value="11.1" /> <interpretationCode codeSystem="local" code="H" /> <referenceRange> < observationRange> <text>7.4-10.0</text> </ observationRange> </referenceRange> </observation> </ component> <component> <observation moodCode="EVN" classCode="OBS"> <templateId root="216.840.1.737766.02.28.22.4.2" /> <id nullFlavor="NA" /> <code codeSystem="local" code="Nrl040" displayName= "Julianen%" /> <statusCode code="completed" /> <effectiveTime value="" /> <value unit="%" xsi:type="PQ" value="60.2" /> <referenceRange> <observationRange> <text> 37.0-80.0</text> </observationRange> </referenceRange> </observation> </component> <component> <observation moodCode="EVN" classCode="OBS"> <templateId root= "216.840.1.164126.10.20.22.4.2" /> <id nullFlavor="NA" /> < code codeSystem="local" code="Res97" displayName="Plt" /> <statusCode code="completed" /> <effectiveTime value="" /> < value unit="K/uL" xsi:type="PQ" value="222" /> <referenceRange> <observationRange> <text>150-400</text> </ observationRange> </referenceRange> </observation> </ component> <component> <observation moodCode="EVN" classCode="OBS"> <templateId root="216.840.1.510621.10.20.22.4.2" /> <id nullFlavor="NA" /> <code codeSystem="local" code="Cwm085" displayName= "RBC" /> <statusCode code="completed" /> <effectiveTime value= "" /> <value unit="M/uL" xsi:type="PQ" value="4.67" /> <referenceRange> <observationRange> <text>3.60- 5.00</text> </observationRange> </referenceRange> </ observation> </component> <component> <observation moodCode= "EVN" classCode="OBS"> <templateId root="216.840.1.816212.10..22.4.2 " /> <id nullFlavor="NA" /> <code codeSystem="local" code= "Res91" displayName="RDW" /> <statusCode code="completed" /> < effectiveTime value="" /> <value unit="%" xsi:type="PQ " value="22.7" /> <interpretationCode codeSystem="local" code="H" /> <referenceRange> <observationRange> <text>11.6- 14.8</text> </observationRange> </referenceRange> </ observation> </component> <component> <observation moodCode= "EVN" classCode="OBS"> <templateId root="16.840.1.696132.10.20.22.4.2 " /> <id nullFlavor="NA" /> <code codeSystem="local" code= "Res98" displayName="WBC" /> <statusCode code="completed" /> < effectiveTime value="" /> <value unit="K/uL" xsi:type="PQ" value="7.36" /> <referenceRange> <observationRange> <text>5.00-10.00</text> </observationRange> </ referenceRange> </observation> </component> <component> <observation moodCode="EVN" classCode="OBS"> <templateId root= "06.27.840.1.350712.1022.4.2" /> <id nullFlavor="NA" /> < code codeSystem="local" code="Res99" displayName="Julianne" /> <statusCode code="completed" /> <effectiveTime value="" /> < value unit="K/uL" xsi:type="PQ" value="4.43" /> <referenceRange> <observationRange> <text>2.00-6.90</text> </ observationRange> </referenceRange> </observation> </ component> <component> <observation moodCode="EVN" classCode="OBS"> <templateId root="06.27.840.1.416041.10.2022.4.2" /> <id nullFlavor="NA" /> <code codeSystem="local" code="Eyd951" displayName= "Rutherford" /> <statusCode code="completed" /> <effectiveTime value ="" /> <value unit="K/uL" xsi:type="PQ" value="0.6" /> <referenceRange> <observationRange> <text>0.0-0.9< /text> </observationRange> </referenceRange> </ observation> </component> <component> <observation moodCode= "EVN" classCode="OBS"> <templateId root="06.27.840.1.466248.10.2022.4.2 " /> <id nullFlavor="NA" /> <code codeSystem="local" code= "Ycv311" displayName="Baso" /> <statusCode code="completed" /> <effectiveTime value="580964379217" /> <value unit="K/uL" xsi:type= "PQ" value="0.1" /> <referenceRange> <observationRange> <text>0.0-0.2</text> </observationRange> </ referenceRange> </observation> </component> </organizer> </entry > <entry> <organizer moodCode="EVN" classCode="BATTERY"> <templateId root="06.27.840.1.083492.10..22.4.1" /> <id nullFlavor="NA" /> <code codeSystem="local" code="09362-5" displayName="Complete urinalysis with reflex to culture" /> <statusCode code="completed" /> <component> < observation moodCode="EVN" classCode="OBS"> <templateId root= "06.27.840.1.679185.102022.4.2" /> <id nullFlavor="NA" /> < code codeSystem="local" code="5778-6" displayName="Urine color determination" / > <statusCode code="completed" /> <effectiveTime value= "846078096184" /> <value unit="" xsi:type="PQ" value="YELLOW" /> <referenceRange> <observationRange> <text>NRG</text > </observationRange> </referenceRange> </observation > </component> <component> <observation moodCode="EVN" classCode="OBS"> <templateId root="216.840.1.426798.10..22.4.2" /> <id nullFlavor="NA" /> <code codeSystem="local" code="34923-2 " displayName="Urine clarity determination" /> <statusCode code= "completed" /> <effectiveTime value="836854075369" /> <value unit="" xsi:type="PQ" value="SLIGHTLY CLOUDY" /> <referenceRange> <observationRange> <text>NRG</text> </ observationRange> </referenceRange> </observation> </ component> <component> <observation moodCode="EVN" classCode="OBS"> <templateId root="216.840.1.813373.10.22.4.2" /> <id nullFlavor="NA" /> <code codeSystem="local" code="5803-2" displayName= "Urine pH measurement by test strip" /> <statusCode code="completed" / > <effectiveTime value="691804930609" /> <value unit="" xsi: type="PQ" value="6.5" /> <referenceRange> <observationRange > <text>5-9</text> </observationRange> </ referenceRange> </observation> </component> <component> <observation moodCode="EVN" classCode="OBS"> <templateId root= "216.840.1.518750.10..22.4.2" /> <id nullFlavor="NA" /> < code codeSystem="local" code="5811-5" displayName="Specific gravity of urine by test strip" /> <statusCode code="completed" /> <effectiveTime value="469000131235" /> <value unit="" xsi:type="PQ" value="1.020" /> <referenceRange> <observationRange> <text>1.016 -1.022</text> </observationRange> </referenceRange> < /observation> </component> <component> <observation moodCode= "EVN" classCode="OBS"> <templateId root="16.840.1.573265.10.20.22.4.2 " /> <id nullFlavor="NA" /> <code codeSystem="local" code= "21058-4" displayName="Urine protein assay by test strip, semi-quantitative" /> <statusCode code="completed" /> <effectiveTime value= "614472897822" /> <value unit="" xsi:type="PQ" value="NEGATIVE" /> <referenceRange> <observationRange> <text>NEGATIVE </text> </observationRange> </referenceRange> </ observation> </component> <component> <observation moodCode= "EVN" classCode="OBS"> <templateId root="06.27.840.1.287668.10.2022.4.2 " /> <id nullFlavor="NA" /> <code codeSystem="local" code= "65994-1" displayName="Urine glucose detection by automated test strip" /> <statusCode code="completed" /> <effectiveTime value="533063407551 " /> <value unit="" xsi:type="PQ" value="NEGATIVE" /> < referenceRange> <observationRange> <text>NEGATIVE</text > </observationRange> </referenceRange> </observation > </component> <component> <observation moodCode="EVN" classCode="OBS"> <templateId root="06.27.840.1.669759.102022.4.2" /> <id nullFlavor="NA" /> <code codeSystem="local" code="24112-9 " displayName="Erythrocytes detection in urine sediment by light microscopy" /> <statusCode code="completed" /> <effectiveTime value= "875011009220" /> <value unit="" xsi:type="PQ" value="1+" /> < interpretationCode codeSystem="local" code="*" /> <referenceRange> <observationRange> <text>NEGATIVE</text> </ observationRange> </referenceRange> </observation> </ component> <component> <observation moodCode="EVN" classCode="OBS"> <templateId root="216.840.1.954901.10..22.4.2" /> <id nullFlavor="NA" /> <code codeSystem="local" code="42345-9" displayName= "Urine ketones detection by automated test strip" /> <statusCode code= "completed" /> <effectiveTime value="929136507490" /> <value unit="" xsi:type="PQ" value="NEGATIVE" /> <referenceRange> < observationRange> <text>NEGATIVE</text> </ observationRange> </referenceRange> </observation> </ component> <component> <observation moodCode="EVN" classCode="OBS"> <templateId root="216.840.1.967583.10...4.2" /> <id nullFlavor="NA" /> <code codeSystem="local" code="5802-4" displayName= "Urine nitrite detection by test strip" /> <statusCode code="completed " /> <effectiveTime value="265709410428" /> <value unit="" xsi :type="PQ" value="NEGATIVE" /> <referenceRange> < observationRange> <text>NEGATIVE</text> </ observationRange> </referenceRange> </observation> </ component> <component> <observation moodCode="EVN" classCode="OBS"> <templateId root="216.840.1.005249.10..22.4.2" /> <id nullFlavor="NA" /> <code codeSystem="local" code="5770-3" displayName= "Urine total bilirubin detection by test strip" /> <statusCode code= "completed" /> <effectiveTime value="918137446910" /> <value unit="" xsi:type="PQ" value="NEGATIVE" /> <referenceRange> < observationRange> <text>NEGATIVE</text> </ observationRange> </referenceRange> </observation> </ component> <component> <observation moodCode="EVN" classCode="OBS"> <templateId root="2.16.840.1.398728.10..4.2" /> <id nullFlavor="NA" /> <code codeSystem="local" code="17850-0" displayName= "Urine urobilinogen measurement by automated test strip (mass/volume)" /> <statusCode code="completed" /> <effectiveTime value="593793113251 " /> <value unit="" xsi:type="PQ" value="NORMAL" /> < referenceRange> <observationRange> <text>NORMAL</text> </observationRange> </referenceRange> </observation> </component> <component> <observation moodCode="EVN" classCode ="OBS"> <templateId root="2.16.840.1.122631.10..4.2" /> < id nullFlavor="NA" /> <code codeSystem="local" code="5799-2" displayName="Urine leukocyte esterase detection by dipstick" /> < statusCode code="completed" /> <effectiveTime value="969275959419" /> <value unit="" xsi:type="PQ" value="NEGATIVE" /> < referenceRange> <observationRange> <text>NEGATIVE</text > </observationRange> </referenceRange> </observation > </component> <component> <observation moodCode="EVN" classCode="OBS"> <templateId root="2.16.840.1.843173.10..22.4.2" /> <id nullFlavor="NA" /> <code codeSystem="local" code="23033-0 " displayName="Automated urine sediment erythrocyte count by microscopy (number/ high power field)" /> <statusCode code="completed" /> < effectiveTime value="049933182782" /> <value unit="[HPF]" xsi:type="PQ " value="" /> <referenceRange> <observationRange> <text>NRG</text> </observationRange> </referenceRange> </observation> </component> <component> <observation moodCode="EVN" classCode="OBS"> <templateId root= "2.16.840.1.110405...4.2" /> <id nullFlavor="NA" /> < code codeSystem="local" code="5821-4" displayName="Automated urine sediment leukocyte count by microscopy (number/high power field)" /> < statusCode code="completed" /> <effectiveTime value="373740191562" /> <value unit="" xsi:type="PQ" value="NONE" /> <referenceRange> <observationRange> <text>NRG</text> </ observationRange> </referenceRange> </observation> </ component> <component> <observation moodCode="EVN" classCode="OBS"> <templateId root="2.16.840.1.300907.10..22.4.2" /> <id nullFlavor="NA" /> <code codeSystem="local" code="58899-1" displayName= "Bacteria detection in urine sediment by light microscopy" /> < statusCode code="completed" /> <effectiveTime value="584252051275" /> <value unit="" xsi:type="PQ" value="TRACE" /> <referenceRange > <observationRange> <text>NRG</text> </ observationRange> </referenceRange> </observation> </ component> <component> <observation moodCode="EVN" classCode="OBS"> <templateId root="216.840.1.848133.10.20.22.4.2" /> <id nullFlavor="NA" /> <code codeSystem="local" code="55939-0" displayName= "Squamous epithelial cells detection in urine sediment by light microscopy" /> <statusCode code="completed" /> <effectiveTime value= "103982729568" /> <value unit="" xsi:type="PQ" value="5-10" /> <referenceRange> <observationRange> <text>NRG</text> </observationRange> </referenceRange> </observation> </component> <component> <observation moodCode="EVN" classCode ="OBS"> <templateId root="16.840.1.627669.10..4.2" /> < id nullFlavor="NA" /> <code codeSystem="local" code="62063-6" displayName="Crystals detection in urine sediment by light microscopy" /> <statusCode code="completed" /> <effectiveTime value="183986531719 " /> <value unit="" xsi:type="PQ" value="PRESENT" /> < interpretationCode codeSystem="local" code="*" /> <referenceRange> <observationRange> <text>NRG</text> </ observationRange> </referenceRange> </observation> </ component> <component> <observation moodCode="EVN" classCode="OBS"> <templateId root="216.840.1.223327.10..22.4.2" /> <id nullFlavor="NA" /> <code codeSystem="local" code="69030-2" displayName= "Casts detection in urine sediment by light microscopy" /> <statusCode code="completed" /> <effectiveTime value="403283009245" /> < value unit="" xsi:type="PQ" value="NONE" /> <referenceRange> <observationRange> <text>NRG</text> </observationRange > </referenceRange> </observation> </component> < component> <observation moodCode="EVN" classCode="OBS"> < templateId root="2.16.840.1.552018.10..22.4.2" /> <id nullFlavor="NA " /> <code codeSystem="local" code="8247-9" displayName="Mucus detection in urine sediment by light microscopy" /> <statusCode code= "completed" /> <effectiveTime value="536516135022" /> <value unit="" xsi:type="PQ" value="SMALL" /> <interpretationCode codeSystem= "local" code="*" /> <referenceRange> <observationRange> <text>NRG</text> </observationRange> </ referenceRange> </observation> </component> <component> <observation moodCode="EVN" classCode="OBS"> <templateId root= "2.16.840.1.186507.10.20.22.4.2" /> <id nullFlavor="NA" /> < code codeSystem="local" code="02760-5" displayName="Complete urinalysis with reflex to culture" /> <statusCode code="completed" /> < effectiveTime value="735932501828" /> <value unit="" xsi:type="PQ" value="NO" /> <referenceRange> <observationRange> <text>NRG</text> </observationRange> </referenceRange> </observation> </component> <component> <observation moodCode="EVN" classCode="OBS"> <templateId root= "2.16.840.1.058435.10.20.22.4.2" /> <id nullFlavor="NA" /> < code codeSystem="local" code="8246-1" displayName="Amorphous sediment detection in urine sediment by light microscopy" /> <statusCode code="completed" /> <effectiveTime value="291183132692" /> <value unit="" xsi: type="PQ" value="FEW RAMIRO URATES" /> <interpretationCode codeSystem= "local" code="*" /> <referenceRange> <observationRange> <text>NRG</text> </observationRange> </ referenceRange> </observation> </component> </organizer> </entry > <entry> <organizer moodCode="EVN" classCode="BATTERY"> <templateId root="2.16.840.1.740969.10.20.22.4.1" /> <id nullFlavor="NA" /> <code codeSystem="local" code="71747-3" displayName="Urine drug screening test" /> <statusCode code="completed" /> <component> <observation moodCode ="EVN" classCode="OBS"> <templateId root= "2.16.840.1.136857.10.20.22.4.2" /> <id nullFlavor="NA" /> < code codeSystem="local" code="88087-8" displayName="Urine phencyclidine detection by screening method" /> <statusCode code="completed" /> <effectiveTime value="854753406394" /> <value unit="" xsi:type="PQ " value="NEGATIVE" /> <referenceRange> <observationRange> <text>NEGATIVE</text> </observationRange> </ referenceRange> </observation> </component> <component> <observation moodCode="EVN" classCode="OBS"> <templateId root= "216.840.1.818292.10.20.22.4.2" /> <id nullFlavor="NA" /> < code codeSystem="local" code="47567-8" displayName="Urine benzodiazepines detection by screening method" /> <statusCode code="completed" /> <effectiveTime value="843278149730" /> <value unit="" xsi:type="PQ " value="NEGATIVE" /> <referenceRange> <observationRange> <text>NEGATIVE</text> </observationRange> </ referenceRange> </observation> </component> <component> <observation moodCode="EVN" classCode="OBS"> <templateId root= "216.840.1.011090.10..22.4.2" /> <id nullFlavor="NA" /> < code codeSystem="local" code="3397-7" displayName="Urine cocaine detection" /> <statusCode code="completed" /> <effectiveTime value= "471644676610" /> <value unit="" xsi:type="PQ" value="NEGATIVE" /> <referenceRange> <observationRange> <text>NEGATIVE </text> </observationRange> </referenceRange> </ observation> </component> <component> <observation moodCode= "EVN" classCode="OBS"> <templateId root="216.840.1.586546.10.20.22.4.2 " /> <id nullFlavor="NA" /> <code codeSystem="local" code= "47063-6" displayName="Urine amphetamines detection by screening method" /> <statusCode code="completed" /> <effectiveTime value= "904766560227" /> <value unit="" xsi:type="PQ" value="NEGATIVE" /> <referenceRange> <observationRange> <text>NEGATIVE </text> </observationRange> </referenceRange> </ observation> </component> <component> <observation moodCode= "EVN" classCode="OBS"> <templateId root="2.16.840.1.970223.10..22.4.2 " /> <id nullFlavor="NA" /> <code codeSystem="local" code= "52332-2" displayName="Urine methamphetamine detection by screening method" /> <statusCode code="completed" /> <effectiveTime value= "520176099092" /> <value unit="" xsi:type="PQ" value="NEGATIVE" /> <referenceRange> <observationRange> <text>NEGATIVE </text> </observationRange> </referenceRange> </ observation> </component> <component> <observation moodCode= "EVN" classCode="OBS"> <templateId root="216.840.1.124569.02.28.22.4.2 " /> <id nullFlavor="NA" /> <code codeSystem="local" code= "03351-8" displayName="Urine cannabinoids detection by screening method" /> <statusCode code="completed" /> <effectiveTime value= "974794418842" /> <value unit="" xsi:type="PQ" value="NEGATIVE" /> <referenceRange> <observationRange> <text>NEGATIVE </text> </observationRange> </referenceRange> </ observation> </component> <component> <observation moodCode= "EVN" classCode="OBS"> <templateId root="2.16.840.1.321879.10.22.4.2 " /> <id nullFlavor="NA" /> <code codeSystem="local" code= "28323-1" displayName="Urine opiates detection by screening method" /> <statusCode code="completed" /> <effectiveTime value="228462197157" /> <value unit="" xsi:type="PQ" value="NEGATIVE" /> < referenceRange> <observationRange> <text>NEGATIVE</text > </observationRange> </referenceRange> </observation > </component> <component> <observation moodCode="EVN" classCode="OBS"> <templateId root="216.840.1.697850.10.20.22.4.2" /> <id nullFlavor="NA" /> <code codeSystem="local" code="3377-9" displayName="Urine barbiturates detection" /> <statusCode code= "completed" /> <effectiveTime value="645204439238" /> <value unit="" xsi:type="PQ" value="NEGATIVE" /> <referenceRange> < observationRange> <text>NEGATIVE</text> </ observationRange> </referenceRange> </observation> </ component> <component> <observation moodCode="EVN" classCode="OBS"> <templateId root="06.27.840.1.914941.102022.4.2" /> <id nullFlavor="NA" /> <code codeSystem="local" code="69821-5" displayName= "Screening urine tricyclic antidepressants detection" /> <statusCode code="completed" /> <effectiveTime value="619354257513" /> < value unit="" xsi:type="PQ" value="NEGATIVE" /> <referenceRange> <observationRange> <text>NEGATIVE</text> </ observationRange> </referenceRange> </observation> </ component> <component> <observation moodCode="EVN" classCode="OBS"> <templateId root="06.27.840.1.352688.10.2022.4.2" /> <id nullFlavor="NA" /> <code codeSystem="local" code="06328-3" displayName= "Urine methadone detection by screening method" /> <statusCode code= "completed" /> <effectiveTime value="948583563195" /> <value unit="" xsi:type="PQ" value="NEGATIVE" /> <referenceRange> < observationRange> <text>NEGATIVE</text> </ observationRange> </referenceRange> </observation> </ component> <component> <observation moodCode="EVN" classCode="OBS"> <templateId root="2.16.840.1.464389.10..22.4.2" /> <id nullFlavor="NA" /> <code codeSystem="local" code="60053-0" displayName= "Urine oxycodone detection" /> <statusCode code="completed" /> <effectiveTime value="811647087733" /> <value unit="" xsi:type="PQ" value="NEGATIVE" /> <referenceRange> <observationRange> <text>NEGATIVE</text> </observationRange> </ referenceRange> </observation> </component> <component> <observation moodCode="EVN" classCode="OBS"> <templateId root= "2.16.840.1.833519.10..4.2" /> <id nullFlavor="NA" /> < code codeSystem="local" code="30369-6" displayName="Urine propoxyphene detection " /> <statusCode code="completed" /> <effectiveTime value= "283584954325" /> <value unit="" xsi:type="PQ" value="NEGATIVE" /> <referenceRange> <observationRange> <text>NEGATIVE </text> </observationRange> </referenceRange> </ observation> </component> </organizer> </entry> <entry> <organizer moodCode="EVN" classCode="BATTERY"> <templateId root= "2.16.840.1.420974.10..22.4.1" /> <id nullFlavor="NA" /> <code codeSystem="local" code="58770-5" displayName="Complete blood count (CBC) with automated white blood cell (WBC) differential" /> <statusCode code= "completed" /> <component> <observation moodCode="EVN" classCode= "OBS"> <templateId root="2.16.840.1.747333.10..22.4.2" /> < id nullFlavor="NA" /> <code codeSystem="local" code="6690-2" displayName="Blood leukocytes automated count (number/volume)" /> < statusCode code="completed" /> <effectiveTime value="721471053080" /> <value unit="10*3/uL" xsi:type="PQ" value="5.5" /> < referenceRange> <observationRange> <text>4.3-11.0</text > </observationRange> </referenceRange> </observation > </component> <component> <observation moodCode="EVN" classCode="OBS"> <templateId root="2.16.840.1.305977....4.2" /> <id nullFlavor="NA" /> <code codeSystem="local" code="789-8" displayName="Blood erythrocytes automated count (number/volume)" /> < statusCode code="completed" /> <effectiveTime value="175600540666" /> <value unit="10*6/uL" xsi:type="PQ" value="4.20" /> < interpretationCode codeSystem="local" code="" /> <referenceRange> <observationRange> <text>4.35-5.85</text> </ observationRange> </referenceRange> </observation> </ component> <component> <observation moodCode="EVN" classCode="OBS"> <templateId root="216.840.1.021613.10..22.4.2" /> <id nullFlavor="NA" /> <code codeSystem="local" code="83444-3" displayName= "Venous blood hemoglobin measurement (mass/volume)" /> <statusCode code ="completed" /> <effectiveTime value="674783182212" /> <value unit="g/dL" xsi:type="PQ" value="9.7" /> <interpretationCode codeSystem ="local" code="" /> <referenceRange> <observationRange> <text>11.5-16.0</text> </observationRange> </ referenceRange> </observation> </component> <component> <observation moodCode="EVN" classCode="OBS"> <templateId root= "06.27.840.1.464255.10..22.4.2" /> <id nullFlavor="NA" /> < code codeSystem="local" code="14899-7" displayName="Blood hematocrit (volume fraction)" /> <statusCode code="completed" /> <effectiveTime value="271559055583" /> <value unit="%" xsi:type="PQ" value="31" / > <interpretationCode codeSystem="local" code="" /> < referenceRange> <observationRange> <text>35-52</text> </observationRange> </referenceRange> </observation> </component> <component> <observation moodCode="EVN" classCode= "OBS"> <templateId root="16.840.1.608412.10.20.22.4.2" /> < id nullFlavor="NA" /> <code codeSystem="local" code="787-2" displayName ="Automated erythrocyte mean corpuscular volume" /> <statusCode code= "completed" /> <effectiveTime value="093259300636" /> <value unit="[foz_us]" xsi:type="PQ" value="74" /> <interpretationCode codeSystem="local" code="" /> <referenceRange> < observationRange> <text>80-99</text> </observationRange > </referenceRange> </observation> </component> < component> <observation moodCode="EVN" classCode="OBS"> < templateId root="2.16.840.1.009953.10..22.4.2" /> <id nullFlavor="NA " /> <code codeSystem="local" code="785-6" displayName="Automated erythrocyte mean corpuscular hemoglobin (mass per erythrocyte)" /> < statusCode code="completed" /> <effectiveTime value="692039531815" /> <value unit="pg" xsi:type="PQ" value="23" /> < interpretationCode codeSystem="local" code="" /> <referenceRange> <observationRange> <text>25-34</text> </ observationRange> </referenceRange> </observation> </ component> <component> <observation moodCode="EVN" classCode="OBS"> <templateId root="2.16.840.1.025737.10..22.4.2" /> <id nullFlavor="NA" /> <code codeSystem="local" code="786-4" displayName= "Automated erythrocyte mean corpuscular hemoglobin concentration measurement ( mass/volume)" /> <statusCode code="completed" /> < effectiveTime value="065831810010" /> <value unit="g/dL" xsi:type="PQ" value="31" /> <interpretationCode codeSystem="local" code="" /> <referenceRange> <observationRange> <text>32-36</ text> </observationRange> </referenceRange> </ observation> </component> <component> <observation moodCode= "EVN" classCode="OBS"> <templateId root="2.16.840.1.830350.10..22.4.2 " /> <id nullFlavor="NA" /> <code codeSystem="local" code="788 -0" displayName="Automated erythrocyte distribution width ratio" /> < statusCode code="completed" /> <effectiveTime value="907989583197" /> <value unit="%" xsi:type="PQ" value="21.6" /> < interpretationCode codeSystem="local" code="" /> <referenceRange> <observationRange> <text>10.0-14.5</text> </ observationRange> </referenceRange> </observation> </ component> <component> <observation moodCode="EVN" classCode="OBS"> <templateId root="2.16.840.1.046627.02.28.22.4.2" /> <id nullFlavor="NA" /> <code codeSystem="local" code="777-3" displayName= "Automated blood platelet count (count/volume)" /> <statusCode code= "completed" /> <effectiveTime value="595517609586" /> <value unit="10*3/uL" xsi:type="PQ" value="181" /> <referenceRange> <observationRange> <text>130-400</text> </ observationRange> </referenceRange> </observation> </ component> <component> <observation moodCode="EVN" classCode="OBS"> <templateId root="2.16.840.1.647641.10.20.22.4.2" /> <id nullFlavor="NA" /> <code codeSystem="local" code="22929-7" displayName= "Automated blood platelet mean volume measurement" /> <statusCode code= "completed" /> <effectiveTime value="764296725986" /> <value unit="[foz_us]" xsi:type="PQ" value="11.2" /> <interpretationCode codeSystem="local" code="" /> <referenceRange> < observationRange> <text>7.4-10.4</text> </ observationRange> </referenceRange> </observation> </ component> <component> <observation moodCode="EVN" classCode="OBS"> <templateId root="216.840.1.386944.10.20.22.4.2" /> <id nullFlavor="NA" /> <code codeSystem="local" code="770-8" displayName= "Automated blood neutrophils/100 leukocytes" /> <statusCode code= "completed" /> <effectiveTime value="614238201717" /> <value unit="%" xsi:type="PQ" value="51" /> <referenceRange> < observationRange> <text>42-75</text> </observationRange > </referenceRange> </observation> </component> < component> <observation moodCode="EVN" classCode="OBS"> < templateId root="216.840.1.112079.10..22.4.2" /> <id nullFlavor="NA " /> <code codeSystem="local" code="736-9" displayName="Automated blood lymphocytes/100 leukocytes" /> <statusCode code="completed" /> <effectiveTime value="251989453121" /> <value unit="%" xsi: type="PQ" value="31" /> <referenceRange> <observationRange> <text>12-44</text> </observationRange> </ referenceRange> </observation> </component> <component> <observation moodCode="EVN" classCode="OBS"> <templateId root= "216.840.1.849974...22.4.2" /> <id nullFlavor="NA" /> < code codeSystem="local" code="71122-9" displayName="Blood monocytes/100 leukocytes" /> <statusCode code="completed" /> <effectiveTime value="308195339840" /> <value unit="%" xsi:type="PQ" value="11" / > <referenceRange> <observationRange> <text>0- 12</text> </observationRange> </referenceRange> </ observation> </component> <component> <observation moodCode= "EVN" classCode="OBS"> <templateId root="2.16.840.1.529294...4.2 " /> <id nullFlavor="NA" /> <code codeSystem="local" code="713 -8" displayName="Automated blood eosinophils/100 leukocytes" /> < statusCode code="completed" /> <effectiveTime value="457169523103" /> <value unit="%" xsi:type="PQ" value="6" /> <referenceRange > <observationRange> <text>0-10</text> </ observationRange> </referenceRange> </observation> </ component> <component> <observation moodCode="EVN" classCode="OBS"> <templateId root="2.16.840.1.138850...22.4.2" /> <id nullFlavor="NA" /> <code codeSystem="local" code="706-2" displayName= "Automated blood basophils/100 leukocytes" /> <statusCode code= "completed" /> <effectiveTime value="437485995759" /> <value unit="%" xsi:type="PQ" value="1" /> <referenceRange> < observationRange> <text>0-10</text> </observationRange> </referenceRange> </observation> </component> < component> <observation moodCode="EVN" classCode="OBS"> < templateId root="2.16.840.1.021980.10.20.22.4.2" /> <id nullFlavor="NA " /> <code codeSystem="local" code="751-8" displayName="Blood neutrophils automated count (number/volume)" /> <statusCode code= "completed" /> <effectiveTime value="705810966377" /> <value unit="10*3" xsi:type="PQ" value="2.8" /> <referenceRange> < observationRange> <text>1.8-7.8</text> </ observationRange> </referenceRange> </observation> </ component> <component> <observation moodCode="EVN" classCode="OBS"> <templateId root="2.16.840.1.279376.10.22.4.2" /> <id nullFlavor="NA" /> <code codeSystem="local" code="731-0" displayName= "Blood lymphocytes automated count (number/volume)" /> <statusCode code ="completed" /> <effectiveTime value="450019568539" /> <value unit="10*3" xsi:type="PQ" value="1.7" /> <referenceRange> < observationRange> <text>1.0-4.0</text> </ observationRange> </referenceRange> </observation> </ component> <component> <observation moodCode="EVN" classCode="OBS"> <templateId root="2.16.840.1.276092.10.20.22.4.2" /> <id nullFlavor="NA" /> <code codeSystem="local" code="742-7" displayName= "Blood monocytes automated count (number/volume)" /> <statusCode code= "completed" /> <effectiveTime value="671323471284" /> <value unit="10*3" xsi:type="PQ" value="0.6" /> <referenceRange> < observationRange> <text>0.0-1.0</text> </ observationRange> </referenceRange> </observation> </ component> <component> <observation moodCode="EVN" classCode="OBS"> <templateId root="216.840.1.882019.02.28.22.4.2" /> <id nullFlavor="NA" /> <code codeSystem="local" code="711-2" displayName= "Automated eosinophil count" /> <statusCode code="completed" /> <effectiveTime value="286826438733" /> <value unit="10*3/uL" xsi: type="PQ" value="0.3" /> <referenceRange> <observationRange > <text>0.0-0.3</text> </observationRange> </ referenceRange> </observation> </component> <component> <observation moodCode="EVN" classCode="OBS"> <templateId root= "06.27.840.1.745814.02.28.22.4.2" /> <id nullFlavor="NA" /> < code codeSystem="local" code="704-7" displayName="Automated blood basophil count (count/volume)" /> <statusCode code="completed" /> < effectiveTime value="831382813938" /> <value unit="10*3/uL" xsi:type= "PQ" value="0.0" /> <referenceRange> <observationRange> <text>0.0-0.1</text> </observationRange> </ referenceRange> </observation> </component> </organizer> </entry > <entry> <organizer moodCode="EVN" classCode="BATTERY"> <templateId root="06.27.840.1.346648.10..22.4.1" /> <id nullFlavor="NA" /> <code codeSystem="local" code="2117-12" displayName="Serum or plasma choriogonadotropin ( test) detection" /> <statusCode code= "completed" /> <component> <observation moodCode="EVN" classCode= "OBS"> <templateId root="16.840.1.285848.02.28.22.4.2" /> < id nullFlavor="NA" /> <code codeSystem="local" code="2117-12" displayName="Serum or plasma choriogonadotropin ( test) detection" /> <statusCode code="completed" /> <effectiveTime value= "556233696268" /> <value unit="" xsi:type="PQ" value="NEGATIVE" /> <referenceRange> <observationRange> <text>NEGATIVE </text> </observationRange> </referenceRange> </ observation> </component> </organizer> </entry> <entry> <organizer moodCode="EVN" classCode="BATTERY"> <templateId root= "16.840.1.903112.10...4.1" /> <id nullFlavor="NA" /> <code codeSystem="local" code="06871-3" displayName="Comprehensive metabolic panel" / > <statusCode code="completed" /> <component> <observation moodCode="EVN" classCode="OBS"> <templateId root= "16.840.1.526870.10..22.4.2" /> <id nullFlavor="NA" /> < code codeSystem="local" code="2951-2" displayName="Serum or plasma sodium measurement (moles/volume)" /> <statusCode code="completed" /> <effectiveTime value="088008690522" /> <value unit="mmol/L" xsi:type= "PQ" value="139" /> <referenceRange> <observationRange> <text>135-145</text> </observationRange> </ referenceRange> </observation> </component> <component> <observation moodCode="EVN" classCode="OBS"> <templateId root= "2.16.840.1.331849.10..22.4.2" /> <id nullFlavor="NA" /> < code codeSystem="local" code="2823-3" displayName="Serum or plasma potassium measurement (moles/volume)" /> <statusCode code="completed" /> <effectiveTime value="565292597742" /> <value unit="mmol/L" xsi:type= "PQ" value="3.5" /> <interpretationCode codeSystem="local" code="" / > <referenceRange> <observationRange> <text>3.6 -5.0</text> </observationRange> </referenceRange> </ observation> </component> <component> <observation moodCode= "EVN" classCode="OBS"> <templateId root="216.840.1.283924.10..22.4.2 " /> <id nullFlavor="NA" /> <code codeSystem="local" code= "2075-0" displayName="Serum or plasma chloride measurement (moles/volume)" /> <statusCode code="completed" /> <effectiveTime value= "788269433690" /> <value unit="mmol/L" xsi:type="PQ" value="106" /> <referenceRange> <observationRange> <text>98-107< /text> </observationRange> </referenceRange> </ observation> </component> <component> <observation moodCode= "EVN" classCode="OBS"> <templateId root="216.840.1.021799.20.22.4.2 " /> <id nullFlavor="NA" /> <code codeSystem="local" code= "2028-01" displayName="Carbon dioxide" /> <statusCode code="completed" / > <effectiveTime value="113054567889" /> <value unit="mmol/L" xsi:type="PQ" value="23" /> <referenceRange> < observationRange> <text>21-32</text> </observationRange > </referenceRange> </observation> </component> < component> <observation moodCode="EVN" classCode="OBS"> < templateId root="2.16.840.1.602453.10..22.4.2" /> <id nullFlavor="NA " /> <code codeSystem="local" code="24443-9" displayName="Serum or plasma anion gap determination (moles/volume)" /> <statusCode code= "completed" /> <effectiveTime value="687386834894" /> <value unit="mmol/L" xsi:type="PQ" value="10" /> <referenceRange> < observationRange> <text>5-14</text> </observationRange> </referenceRange> </observation> </component> < component> <observation moodCode="EVN" classCode="OBS"> < templateId root="2.16.840.1.367643.10..22.4.2" /> <id nullFlavor="NA " /> <code codeSystem="local" code="3094-0" displayName="Serum or plasma urea nitrogen measurement (mass/volume)" /> <statusCode code= "completed" /> <effectiveTime value="381713662158" /> <value unit="mg/dL" xsi:type="PQ" value="18" /> <referenceRange> < observationRange> <text>7-18</text> </observationRange> </referenceRange> </observation> </component> < component> <observation moodCode="EVN" classCode="OBS"> < templateId root="2.16.840.1.746551.10..22.4.2" /> <id nullFlavor="NA " /> <code codeSystem="local" code="2160-0" displayName="Serum or plasma creatinine measurement (mass/volume)" /> <statusCode code= "completed" /> <effectiveTime value="054235209085" /> <value unit="mg/dL" xsi:type="PQ" value="0.75" /> <referenceRange> <observationRange> <text>0.60-1.30</text> </ observationRange> </referenceRange> </observation> </ component> <component> <observation moodCode="EVN" classCode="OBS"> <templateId root="2.16.840.1.101236.10.4.2" /> <id nullFlavor="NA" /> <code codeSystem="local" code="3097-3" displayName= "Serum or plasma urea nitrogen/creatinine mass ratio" /> <statusCode code="completed" /> <effectiveTime value="954748479640" /> < value unit="" xsi:type="PQ" value="24" /> <referenceRange> < observationRange> <text>NRG</text> </observationRange> </referenceRange> </observation> </component> < component> <observation moodCode="EVN" classCode="OBS"> < templateId root="2.16.840.1.175864.10..22.4.2" /> <id nullFlavor="NA " /> <code codeSystem="local" code="72998-2" displayName="Serum or plasma creatinine measurement with calculation of estimated glomerular filtration rate" /> <statusCode code="completed" /> < effectiveTime value="633439254523" /> <value unit="" xsi:type="PQ" value=">" /> <referenceRange> <observationRange> <text>NRG</text> </observationRange> </referenceRange > </observation> </component> <component> <observation moodCode="EVN" classCode="OBS"> <templateId root= "2.16.840.1.973301.10.20.22.4.2" /> <id nullFlavor="NA" /> < code codeSystem="local" code="2345-7" displayName="Serum or plasma glucose measurement (mass/volume)" /> <statusCode code="completed" /> <effectiveTime value="045090370368" /> <value unit="mg/dL" xsi:type="PQ " value="90" /> <referenceRange> <observationRange> <text>70-105</text> </observationRange> </ referenceRange> </observation> </component> <component> <observation moodCode="EVN" classCode="OBS"> <templateId root= "2.16.840.1.099529.10..22.4.2" /> <id nullFlavor="NA" /> < code codeSystem="local" code="35455-7" displayName="Serum or plasma calcium measurement (mass/volume)" /> <statusCode code="completed" /> <effectiveTime value="746856953305" /> <value unit="mg/dL" xsi:type="PQ " value="9.0" /> <referenceRange> <observationRange> <text>8.5-10.1</text> </observationRange> </ referenceRange> </observation> </component> <component> <observation moodCode="EVN" classCode="OBS"> <templateId root= "2.16.840.1.010234.10.20.4.2" /> <id nullFlavor="NA" /> < code codeSystem="local" code="1974-06" displayName="Serum or plasma total bilirubin measurement (mass/volume)" /> <statusCode code="completed" / > <effectiveTime value="422448544216" /> <value unit="mg/dL" xsi:type="PQ" value="0.3" /> <referenceRange> < observationRange> <text>0.1-1.0</text> </ observationRange> </referenceRange> </observation> </ component> <component> <observation moodCode="EVN" classCode="OBS"> <templateId root="2.16.840.1.988090.10..4.2" /> <id nullFlavor="NA" /> <code codeSystem="local" code="6768" displayName= "Serum or plasma alkaline phosphatase measurement (enzymatic activity/volume)" / > <statusCode code="completed" /> <effectiveTime value= "970693942593" /> <value unit="U/L" xsi:type="PQ" value="67" /> <referenceRange> <observationRange> <text>40-136</ text> </observationRange> </referenceRange> </ observation> </component> <component> <observation moodCode= "EVN" classCode="OBS"> <templateId root="2.16.840.1.553423.10..4.2 " /> <id nullFlavor="NA" /> <code codeSystem="local" code= "1919-12" displayName="Serum or plasma aspartate aminotransferase measurement ( enzymatic activity/volume)" /> <statusCode code="completed" /> <effectiveTime value="903841540742" /> <value unit="U/L" xsi:type="PQ " value="22" /> <referenceRange> <observationRange> <text>5-34</text> </observationRange> </referenceRange > </observation> </component> <component> <observation moodCode="EVN" classCode="OBS"> <templateId root= "2.16.840.1.302714.10.20.22.4.2" /> <id nullFlavor="NA" /> < code codeSystem="local" code="1742-6" displayName="Serum or plasma alanine aminotransferase measurement (enzymatic activity/volume)" /> < statusCode code="completed" /> <effectiveTime value="945766395990" /> <value unit="U/L" xsi:type="PQ" value="22" /> <referenceRange > <observationRange> <text>0-55</text> </ observationRange> </referenceRange> </observation> </ component> <component> <observation moodCode="EVN" classCode="OBS"> <templateId root="2.16.840.1.265388.10.22.4.2" /> <id nullFlavor="NA" /> <code codeSystem="local" code="2885-2" displayName= "Serum or plasma protein measurement (mass/volume)" /> <statusCode code ="completed" /> <effectiveTime value="123643623612" /> <value unit="g/dL" xsi:type="PQ" value="7.2" /> <referenceRange> < observationRange> <text>6.4-8.2</text> </ observationRange> </referenceRange> </observation> </ component> <component> <observation moodCode="EVN" classCode="OBS"> <templateId root="2.16.840.1.641184.10.20.22.4.2" /> <id nullFlavor="NA" /> <code codeSystem="local" code="1751-7" displayName= "Serum or plasma albumin measurement (mass/volume)" /> <statusCode code ="completed" /> <effectiveTime value="533957496493" /> <value unit="g/dL" xsi:type="PQ" value="4.2" /> <referenceRange> < observationRange> <text>3.2-4.5</text> </ observationRange> </referenceRange> </observation> </ component> </organizer> </entry> <entry> <organizer moodCode="EVN" classCode="BATTERY"> <templateId root="2.16.840.1.233312.10.20.22.4.1" /> <id nullFlavor="NA" /> <code codeSystem="local" code="3040-3" displayName="Lipase" /> <statusCode code="completed" /> <component> <observation moodCode="EVN" classCode="OBS"> <templateId root= "2.16.840.1.026060.10..22.4.2" /> <id nullFlavor="NA" /> < code codeSystem="local" code="3040-3" displayName="Lipase" /> < statusCode code="completed" /> <effectiveTime value="278329047356" /> <value unit="U/L" xsi:type="PQ" value="42" /> <referenceRange > <observationRange> <text>8-78</text> </ observationRange> </referenceRange> </observation> </ component> </organizer> </entry> <entry> <organizer moodCode="EVN" classCode="BATTERY"> <templateId root="2.16.840.1.566192.10.20.22.4.1" /> <id nullFlavor="NA" /> <code codeSystem="local" code="5643-2" displayName="Serum or plasma ethanol measurement (mass/volume)" /> < statusCode code="completed" /> <component> <observation moodCode= "EVN" classCode="OBS"> <templateId root="216.840.1.098691.10..22.4.2 " /> <id nullFlavor="NA" /> <code codeSystem="local" code= "5643-2" displayName="Serum or plasma ethanol measurement (mass/volume)" /> <statusCode code="completed" /> <effectiveTime value= "701580652770" /> <value unit="mg/dL" xsi:type="PQ" value="<" /> <referenceRange> <observationRange> <text><10< /text> </observationRange> </referenceRange> </ observation> </component> </organizer> </entry> <entry> <organizer moodCode="EVN" classCode="BATTERY"> <templateId root= "216.840.1.003785.10..22.4.1" /> <id nullFlavor="NA" /> <code codeSystem="local" code="ORD3" displayName="Comprehensive Metabolic Panel" /> <statusCode code="completed" /> <component> <observation moodCode="EVN" classCode="OBS"> <templateId root= "216.840.1.676453.10.20.22.4.2" /> <id nullFlavor="NA" /> < code codeSystem="local" code="Res44" displayName="Albumin" /> < statusCode code="completed" /> <effectiveTime value="439127373685" /> <value unit="g/dL" xsi:type="PQ" value="3.7" /> < referenceRange> <observationRange> <text>3.6-5.1</text> </observationRange> </referenceRange> </observation > </component> <component> <observation moodCode="EVN" classCode="OBS"> <templateId root="840.1.926117.10..22.4.2" /> <id nullFlavor="NA" /> <code codeSystem="local" code="Res45" displayName="ALP" /> <statusCode code="completed" /> < effectiveTime value="920277347554" /> <value unit="U/L" xsi:type="PQ" value="60" /> <referenceRange> <observationRange> <text>35-130</text> </observationRange> </referenceRange > </observation> </component> <component> <observation moodCode="EVN" classCode="OBS"> <templateId root= "2.16.840.1.619635.10..4.2" /> <id nullFlavor="NA" /> < code codeSystem="local" code="Res46" displayName="ALT" /> <statusCode code="completed" /> <effectiveTime value="" /> < value unit="U/L" xsi:type="PQ" value="11" /> <referenceRange> <observationRange> <text>6-45</text> </ observationRange> </referenceRange> </observation> </ component> <component> <observation moodCode="EVN" classCode="OBS"> <templateId root="216.840.1.364311.10..22.4.2" /> <id nullFlavor="NA" /> <code codeSystem="local" code="Res61" displayName= "Anion Gap" /> <statusCode code="completed" /> <effectiveTime value="436506828529" /> <value unit="" xsi:type="PQ" value="15" /> <interpretationCode codeSystem="local" code="H" /> < referenceRange> <observationRange> <text>6-14</text> </observationRange> </referenceRange> </observation> </component> <component> <observation moodCode="EVN" classCode= "OBS"> <templateId root="216.840.1.932524.10.22.4.2" /> < id nullFlavor="NA" /> <code codeSystem="local" code="Res48" displayName ="AST" /> <statusCode code="completed" /> <effectiveTime value ="477609474917" /> <value unit="U/L" xsi:type="PQ" value="15" /> <referenceRange> <observationRange> <text>2-40</text > </observationRange> </referenceRange> </observation > </component> <component> <observation moodCode="EVN" classCode="OBS"> <templateId root="216.840.1.168430...4.2" /> <id nullFlavor="NA" /> <code codeSystem="local" code="Res26" displayName="BUN" /> <statusCode code="completed" /> < effectiveTime value="069601398117" /> <value unit="mg/dL" xsi:type="PQ " value="22" /> <referenceRange> <observationRange> <text>5-25</text> </observationRange> </referenceRange > </observation> </component> <component> <observation moodCode="EVN" classCode="OBS"> <templateId root= "06.27.840.1.970747.10.2022.4.2" /> <id nullFlavor="NA" /> < code codeSystem="local" code="Res5" displayName="Calcium" /> < statusCode code="completed" /> <effectiveTime value="998512369865" /> <value unit="mg/dL" xsi:type="PQ" value="8.8" /> < referenceRange> <observationRange> <text>8.3-10.4</text > </observationRange> </referenceRange> </observation > </component> <component> <observation moodCode="EVN" classCode="OBS"> <templateId root="16.840.1.908329.10...4.2" /> <id nullFlavor="NA" /> <code codeSystem="local" code="Res21" displayName="Chloride" /> <statusCode code="completed" /> < effectiveTime value="857478584870" /> <value unit="mmol/L" xsi:type="PQ " value="109" /> <referenceRange> <observationRange> <text>95-114</text> </observationRange> </ referenceRange> </observation> </component> <component> <observation moodCode="EVN" classCode="OBS"> <templateId root= "06.27.840.1.161077...4.2" /> <id nullFlavor="NA" /> < code codeSystem="local" code="Res49" displayName="CO2" /> <statusCode code="completed" /> <effectiveTime value="431158928167" /> < value unit="mEq/L" xsi:type="PQ" value="20" /> <interpretationCode codeSystem="local" code="L" /> <referenceRange> < observationRange> <text>22-33</text> </observationRange > </referenceRange> </observation> </component> < component> <observation moodCode="EVN" classCode="OBS"> < templateId root="06.27.840.1.338635.10.22.4.2" /> <id nullFlavor="NA " /> <code codeSystem="local" code="Kqw650" displayName="Creat" /> <statusCode code="completed" /> <effectiveTime value= "" /> <value unit="mg/dL" xsi:type="PQ" value="0.74" /> <referenceRange> <observationRange> <text>0.50- 1.50</text> </observationRange> </referenceRange> </ observation> </component> <component> <observation moodCode= "EVN" classCode="OBS"> <templateId root="216.840.1.561486.02.28.22.4.2 " /> <id nullFlavor="NA" /> <code codeSystem="local" code= "Vqz568" displayName="eGFR" /> <statusCode code="completed" /> <effectiveTime value="" /> <value unit="mL/min/1.73m2" xsi:type="PQ" value="90" /> <referenceRange> < observationRange> <text>>59</text> </observationRange > </referenceRange> </observation> </component> < component> <observation moodCode="EVN" classCode="OBS"> < templateId root="216.840.1.195250.104.2" /> <id nullFlavor="NA " /> <code codeSystem="local" code="Res7" displayName="Globulin" /> <statusCode code="completed" /> <effectiveTime value= "883307965877" /> <value unit="g/dL" xsi:type="PQ" value="2.1" /> <interpretationCode codeSystem="local" code="L" /> <referenceRange > <observationRange> <text>2.3-3.5</text> </ observationRange> </referenceRange> </observation> </ component> <component> <observation moodCode="EVN" classCode="OBS"> <templateId root="216.840.1.586248...22.4.2" /> <id nullFlavor="NA" /> <code codeSystem="local" code="Res60" displayName= "Glucose" /> <statusCode code="completed" /> <effectiveTime value="479731507990" /> <value unit="mg/dL" xsi:type="PQ" value="101" / > <referenceRange> <observationRange> <text>70- 110</text> </observationRange> </referenceRange> </ observation> </component> <component> <observation moodCode= "EVN" classCode="OBS"> <templateId root="2.16.840.1.458010.02.28.22.4.2 " /> <id nullFlavor="NA" /> <code codeSystem="local" code= "Res52" displayName="Osmo" /> <statusCode code="completed" /> <effectiveTime value="" /> <value unit="" xsi:type="PQ" value="294" /> <referenceRange> <observationRange> <text>280-295</text> </observationRange> </ referenceRange> </observation> </component> <component> <observation moodCode="EVN" classCode="OBS"> <templateId root= "2.16.840.1.329256.10..4.2" /> <id nullFlavor="NA" /> < code codeSystem="local" code="Res20" displayName="Potassium" /> < statusCode code="completed" /> <effectiveTime value="601092466333" /> <value unit="mmol/L" xsi:type="PQ" value="3.4" /> < interpretationCode codeSystem="local" code="L" /> <referenceRange> <observationRange> <text>3.5-5.3</text> </ observationRange> </referenceRange> </observation> </ component> <component> <observation moodCode="EVN" classCode="OBS"> <templateId root="16.840.1.548490.10.20.22.4.2" /> <id nullFlavor="NA" /> <code codeSystem="local" code="Res19" displayName= "Sodium" /> <statusCode code="completed" /> <effectiveTime value="116497062481" /> <value unit="mmol/L" xsi:type="PQ" value="141" /> <referenceRange> <observationRange> <text> 134-148</text> </observationRange> </referenceRange> </observation> </component> <component> <observation moodCode= "EVN" classCode="OBS"> <templateId root="16.840.1.305628.10.22.4.2 " /> <id nullFlavor="NA" /> <code codeSystem="local" code= "Res51" displayName="TBil" /> <statusCode code="completed" /> <effectiveTime value="789751595591" /> <value unit="mg/dL" xsi:type="PQ " value="< 0.2" /> <referenceRange> <observationRange> <text /> </observationRange> </referenceRange> </observation> </component> <component> <observation moodCode="EVN" classCode="OBS"> <templateId root= "16.840.1.942227.10.2022.4.2" /> <id nullFlavor="NA" /> < code codeSystem="local" code="Res24" displayName="TP" /> <statusCode code="completed" /> <effectiveTime value="255602802022" /> < value unit="g/dL" xsi:type="PQ" value="5.8" /> <interpretationCode codeSystem="local" code="L" /> <referenceRange> < observationRange> <text>6.0-8.3</text> </ observationRange> </referenceRange> </observation> </ component> </organizer> </entry> <entry> <organizer moodCode="EVN" classCode="BATTERY"> <templateId root="16.840.1.397361.10.20.22.4.1" /> <id nullFlavor="NA" /> <code codeSystem="local" code="TAZ363" displayName="Folate" /> <statusCode code="completed" /> <component> <observation moodCode="EVN" classCode="OBS"> <templateId root= "06.27.840.1.770704.10.22.4.2" /> <id nullFlavor="NA" /> < code codeSystem="local" code="Mii092" displayName="Folate" /> < statusCode code="completed" /> <effectiveTime value="690701661654" /> <value unit="ng/mL" xsi:type="PQ" value="9.20" /> < referenceRange> <observationRange> <text>7.00-31.40</ text> </observationRange> </referenceRange> </ observation> </component> </organizer> </entry> <entry> <organizer moodCode="EVN" classCode="BATTERY"> <templateId root= "06.27.840.1.613553.10.2022.4.1" /> <id nullFlavor="NA" /> <code codeSystem="local" code="YOY312" displayName="XM (2) LRPC" /> <statusCode code="completed" /> <component> <observation moodCode="EVN" classCode="OBS"> <templateId root="06.27.840.1.437914.10.4.2" /> <id nullFlavor="NA" /> <code codeSystem="local" code="Vbc877" displayName="CROSSMATCH" /> <statusCode code="completed" /> < effectiveTime value="493472728155" /> <value unit="" xsi:type="PQ" value="COMPATIBLE X 2" /> <referenceRange> <observationRange > <text /> </observationRange> </referenceRange > </observation> </component> <component> <observation moodCode="EVN" classCode="OBS"> <templateId root= "2.16.840.1.539494...4.2" /> <id nullFlavor="NA" /> < code codeSystem="local" code="Res87" displayName="Hct" /> <statusCode code="completed" /> <effectiveTime value="" /> < value unit="%" xsi:type="PQ" value="25.8" /> <interpretationCode codeSystem="local" code="L" /> <referenceRange> < observationRange> <text>36.0-46.0</text> </ observationRange> </referenceRange> </observation> </ component> <component> <observation moodCode="EVN" classCode="OBS"> <templateId root="216.840.1.129112.10.4.2" /> <id nullFlavor="NA" /> <code codeSystem="local" code="Iri299" displayName= "Hgb" /> <statusCode code="completed" /> <effectiveTime value= "459202935826" /> <value unit="g/dL" xsi:type="PQ" value="7.9" /> <interpretationCode codeSystem="local" code="L" /> <referenceRange > <observationRange> <text>13.0-15.0</text> < /observationRange> </referenceRange> </observation> </ component> </organizer> </entry> <entry> <organizer moodCode="EVN" classCode="BATTERY"> <templateId root="06.27.840.1.111738.10.4.1" /> <id nullFlavor="NA" /> <code codeSystem="local" code="ORD80" displayName=" Test-Serum" /> <statusCode code="completed" /> <component> <observation moodCode="EVN" classCode="OBS"> < templateId root="840.1.159128.02.28.22.4.2" /> <id nullFlavor="NA " /> <code codeSystem="local" code="Res82" displayName="Preg Test-S" / > <statusCode code="completed" /> <effectiveTime value= "969209322960" /> <value unit="" xsi:type="PQ" value="Negative" /> <referenceRange> <observationRange> <text>Negative </text> </observationRange> </referenceRange> </ observation> </component> </organizer> </entry> <entry> <organizer moodCode="EVN" classCode="BATTERY"> <templateId root= "06.27.840.1.911244.02.28.22.4.1" /> <id nullFlavor="NA" /> <code codeSystem="local" code="RWU0665" displayName="Leukoreduced Packed RBC Unit Checkout" /> <statusCode code="completed" /> <component> < observation moodCode="EVN" classCode="OBS"> <templateId root= "06.27.840.1.696516.10...4.2" /> <id nullFlavor="NA" /> < code codeSystem="local" code="Wfc295" displayName="LRPRBC Checkout" /> <statusCode code="completed" /> <effectiveTime value="046525620628" /> <value unit="" xsi:type="PQ" value="Checked Out." /> < referenceRange> <observationRange> <text /> < /observationRange> </referenceRange> </observation> </ component> </organizer> </entry> <entry> <organizer moodCode="EVN" classCode="BATTERY"> <templateId root="216.840.1.189919.10..22.4.1" /> <id nullFlavor="NA" /> <code codeSystem="local" code="VCK7243" displayName="Leukoreduced Packed RBC Unit Checkout" /> <statusCode code= "completed" /> <component> <observation moodCode="EVN" classCode= "OBS"> <templateId root="2.16.840.1.354451.10..22.4.2" /> < id nullFlavor="NA" /> <code codeSystem="local" code="Rvo228" displayName="LRPRBC Checkout" /> <statusCode code="completed" /> <effectiveTime value="888414050646" /> <value unit="" xsi:type="PQ " value="Checked Out." /> <referenceRange> <observationRange > <text /> </observationRange> </referenceRange > </observation> </component> </organizer> </entry> <entry> <organizer moodCode="EVN" classCode="BATTERY"> <templateId root= "2.16.840.1.679863.10..22.4.1" /> <id nullFlavor="NA" /> <code codeSystem="local" code="ORD4" displayName="BMP" /> <statusCode code= "completed" /> <component> <observation moodCode="EVN" classCode= "OBS"> <templateId root="16.840.1.233048.10.20.22.4.2" /> < id nullFlavor="NA" /> <code codeSystem="local" code="Res61" displayName ="Anion Gap" /> <statusCode code="completed" /> < effectiveTime value="" /> <value unit="" xsi:type="PQ" value="15" /> <interpretationCode codeSystem="local" code="H" /> <referenceRange> <observationRange> <text>6-14</text > </observationRange> </referenceRange> </observation > </component> <component> <observation moodCode="EVN" classCode="OBS"> <templateId root="06.27.840.1.196159.10.22.4.2" /> <id nullFlavor="NA" /> <code codeSystem="local" code="Res26" displayName="BUN" /> <statusCode code="completed" /> < effectiveTime value="" /> <value unit="mg/dL" xsi:type="PQ " value="18" /> <referenceRange> <observationRange> <text>5-25</text> </observationRange> </referenceRange > </observation> </component> <component> <observation moodCode="EVN" classCode="OBS"> <templateId root= "06.27.840.1.466422.10.20.22.4.2" /> <id nullFlavor="NA" /> < code codeSystem="local" code="Res5" displayName="Calcium" /> < statusCode code="completed" /> <effectiveTime value="685131598169" /> <value unit="mg/dL" xsi:type="PQ" value="8.8" /> < referenceRange> <observationRange> <text>8.3-10.4</text > </observationRange> </referenceRange> </observation > </component> <component> <observation moodCode="EVN" classCode="OBS"> <templateId root="216.840.1.954197.10..4.2" /> <id nullFlavor="NA" /> <code codeSystem="local" code="Res21" displayName="Chloride" /> <statusCode code="completed" /> < effectiveTime value="" /> <value unit="mmol/L" xsi:type="PQ " value="110" /> <referenceRange> <observationRange> <text>95-114</text> </observationRange> </ referenceRange> </observation> </component> <component> <observation moodCode="EVN" classCode="OBS"> <templateId root= "16.840.1.040078.10.4.2" /> <id nullFlavor="NA" /> < code codeSystem="local" code="Res49" displayName="CO2" /> <statusCode code="completed" /> <effectiveTime value="" /> < value unit="mEq/L" xsi:type="PQ" value="22" /> <referenceRange> <observationRange> <text>22-33</text> </ observationRange> </referenceRange> </observation> </ component> <component> <observation moodCode="EVN" classCode="OBS"> <templateId root="216.840.1.112467.10.22.4.2" /> <id nullFlavor="NA" /> <code codeSystem="local" code="Qvx276" displayName= "Creat" /> <statusCode code="completed" /> <effectiveTime value="" /> <value unit="mg/dL" xsi:type="PQ" value="0.74" /> <referenceRange> <observationRange> <text> 0.50-1.50</text> </observationRange> </referenceRange> </observation> </component> <component> <observation moodCode="EVN" classCode="OBS"> <templateId root= "216.840.1.926048.10.20..4.2" /> <id nullFlavor="NA" /> < code codeSystem="local" code="Mah351" displayName="eGFR" /> < statusCode code="completed" /> <effectiveTime value="551616874769" /> <value unit="mL/min/1.73m2" xsi:type="PQ" value="90" /> < referenceRange> <observationRange> <text>>59</text> </observationRange> </referenceRange> </observation> </component> <component> <observation moodCode="EVN" classCode ="OBS"> <templateId root="06.27.840.1.392555.10..4.2" /> < id nullFlavor="NA" /> <code codeSystem="local" code="Res60" displayName ="Glucose" /> <statusCode code="completed" /> <effectiveTime value="082300510459" /> <value unit="mg/dL" xsi:type="PQ" value="70" / > <referenceRange> <observationRange> <text>70- 110</text> </observationRange> </referenceRange> </ observation> </component> <component> <observation moodCode= "EVN" classCode="OBS"> <templateId root="06.27.840.1.723099.10.2022.4.2 " /> <id nullFlavor="NA" /> <code codeSystem="local" code= "Res52" displayName="Osmo" /> <statusCode code="completed" /> <effectiveTime value="" /> <value unit="" xsi:type="PQ" value="296" /> <interpretationCode codeSystem="local" code="H" /> <referenceRange> <observationRange> <text>280-295</ text> </observationRange> </referenceRange> </ observation> </component> <component> <observation moodCode= "EVN" classCode="OBS"> <templateId root="216.840.1.272462.10...4.2 " /> <id nullFlavor="NA" /> <code codeSystem="local" code= "Res20" displayName="Potassium" /> <statusCode code="completed" /> <effectiveTime value="" /> <value unit="mmol/L" xsi: type="PQ" value="3.6" /> <referenceRange> <observationRange > <text>3.5-5.3</text> </observationRange> </ referenceRange> </observation> </component> <component> <observation moodCode="EVN" classCode="OBS"> <templateId root= "16.840.1.412166.10...4.2" /> <id nullFlavor="NA" /> < code codeSystem="local" code="Res19" displayName="Sodium" /> < statusCode code="completed" /> <effectiveTime value="079651185576" /> <value unit="mmol/L" xsi:type="PQ" value="143" /> < referenceRange> <observationRange> <text>134-148</text> </observationRange> </referenceRange> </observation > </component> </organizer> </entry> <entry> <organizer moodCode= "EVN" classCode="BATTERY"> <templateId root="216.840.1.724148.10..22.4.1 " /> <id nullFlavor="NA" /> <code codeSystem="local" code="13611-3" displayName="Complete blood count (CBC) with automated white blood cell (WBC) differential" /> <statusCode code="completed" /> <component> < observation moodCode="EVN" classCode="OBS"> <templateId root= "2.16.840.1.638246.10..22.4.2" /> <id nullFlavor="NA" /> < code codeSystem="local" code="6690-2" displayName="Blood leukocytes automated count (number/volume)" /> <statusCode code="completed" /> < effectiveTime value="" /> <value unit="10*3/uL" xsi:type= "PQ" value="10.1" /> <referenceRange> <observationRange> <text>4.3-11.0</text> </observationRange> </ referenceRange> </observation> </component> <component> <observation moodCode="EVN" classCode="OBS"> <templateId root= "2.16.840.1.901922...22.4.2" /> <id nullFlavor="NA" /> < code codeSystem="local" code="789-8" displayName="Blood erythrocytes automated count (number/volume)" /> <statusCode code="completed" /> < effectiveTime value="691695552603" /> <value unit="10*6/uL" xsi:type= "PQ" value="3.96" /> <interpretationCode codeSystem="local" code="" / > <referenceRange> <observationRange> <text> 4.35-5.85</text> </observationRange> </referenceRange> </observation> </component> <component> <observation moodCode="EVN" classCode="OBS"> <templateId root= "2.16.840.1.678606.10..22.4.2" /> <id nullFlavor="NA" /> < code codeSystem="local" code="23843-2" displayName="Venous blood hemoglobin measurement (mass/volume)" /> <statusCode code="completed" /> <effectiveTime value="" /> <value unit="g/dL" xsi:type="PQ " value="10.6" /> <interpretationCode codeSystem="local" code="" /> <referenceRange> <observationRange> <text>11.5- 16.0</text> </observationRange> </referenceRange> </ observation> </component> <component> <observation moodCode= "EVN" classCode="OBS"> <templateId root="216.840.1.532680...4.2 " /> <id nullFlavor="NA" /> <code codeSystem="local" code= "46708-4" displayName="Blood hematocrit (volume fraction)" /> < statusCode code="completed" /> <effectiveTime value="" /> <value unit="%" xsi:type="PQ" value="32" /> < interpretationCode codeSystem="local" code="" /> <referenceRange> <observationRange> <text>35-52</text> </ observationRange> </referenceRange> </observation> </ component> <component> <observation moodCode="EVN" classCode="OBS"> <templateId root="216.840.1.015674.10..22.4.2" /> <id nullFlavor="NA" /> <code codeSystem="local" code="787-2" displayName= "Automated erythrocyte mean corpuscular volume" /> <statusCode code= "completed" /> <effectiveTime value="" /> <value unit="[foz_us]" xsi:type="PQ" value="80" /> <referenceRange> <observationRange> <text>80-99</text> </ observationRange> </referenceRange> </observation> </ component> <component> <observation moodCode="EVN" classCode="OBS"> <templateId root="2.16.840.1.184102.10.20.22.4.2" /> <id nullFlavor="NA" /> <code codeSystem="local" code="785-6" displayName= "Automated erythrocyte mean corpuscular hemoglobin (mass per erythrocyte)" /> <statusCode code="completed" /> <effectiveTime value= "902678275537" /> <value unit="pg" xsi:type="PQ" value="27" /> <referenceRange> <observationRange> <text>25-34</text > </observationRange> </referenceRange> </observation > </component> <component> <observation moodCode="EVN" classCode="OBS"> <templateId root="2.16.840.1.062860.10...4.2" /> <id nullFlavor="NA" /> <code codeSystem="local" code="786-4" displayName="Automated erythrocyte mean corpuscular hemoglobin concentration measurement (mass/volume)" /> <statusCode code="completed" /> <effectiveTime value="189056786532" /> <value unit="g/dL" xsi:type="PQ " value="33" /> <referenceRange> <observationRange> <text>32-36</text> </observationRange> </ referenceRange> </observation> </component> <component> <observation moodCode="EVN" classCode="OBS"> <templateId root= "2.16.840.1.315537.10..4.2" /> <id nullFlavor="NA" /> < code codeSystem="local" code="788-0" displayName="Automated erythrocyte distribution width ratio" /> <statusCode code="completed" /> < effectiveTime value="" /> <value unit="%" xsi:type="PQ " value="22.0" /> <interpretationCode codeSystem="local" code="" /> <referenceRange> <observationRange> <text>10.0- 14.5</text> </observationRange> </referenceRange> </ observation> </component> <component> <observation moodCode= "EVN" classCode="OBS"> <templateId root="2.16.840.1.561715.10..4.2 " /> <id nullFlavor="NA" /> <code codeSystem="local" code="777 -3" displayName="Automated blood platelet count (count/volume)" /> < statusCode code="completed" /> <effectiveTime value="" /> <value unit="10*3/uL" xsi:type="PQ" value="313" /> < referenceRange> <observationRange> <text>130-400</text> </observationRange> </referenceRange> </observation > </component> <component> <observation moodCode="EVN" classCode="OBS"> <templateId root="216.840.1.109781.10..4.2" /> <id nullFlavor="NA" /> <code codeSystem="local" code="86691-9 " displayName="Automated blood platelet mean volume measurement" /> < statusCode code="completed" /> <effectiveTime value="" /> <value unit="[foz_us]" xsi:type="PQ" value="10.7" /> < interpretationCode codeSystem="local" code="" /> <referenceRange> <observationRange> <text>7.4-10.4</text> </ observationRange> </referenceRange> </observation> </ component> <component> <observation moodCode="EVN" classCode="OBS"> <templateId root="2.16.840.1.060729.10.20.22.4.2" /> <id nullFlavor="NA" /> <code codeSystem="local" code="770-8" displayName= "Automated blood neutrophils/100 leukocytes" /> <statusCode code= "completed" /> <effectiveTime value="240943416699" /> <value unit="%" xsi:type="PQ" value="76" /> <interpretationCode codeSystem ="local" code="" /> <referenceRange> <observationRange> <text>42-75</text> </observationRange> </ referenceRange> </observation> </component> <component> <observation moodCode="EVN" classCode="OBS"> <templateId root= "216.840.1.657756.10..4.2" /> <id nullFlavor="NA" /> < code codeSystem="local" code="736-9" displayName="Automated blood lymphocytes/ 100 leukocytes" /> <statusCode code="completed" /> < effectiveTime value="986911696441" /> <value unit="%" xsi:type="PQ " value="16" /> <referenceRange> <observationRange> <text>12-44</text> </observationRange> </ referenceRange> </observation> </component> <component> <observation moodCode="EVN" classCode="OBS"> <templateId root= "2.16.840.1.687826.10.20.22.4.2" /> <id nullFlavor="NA" /> < code codeSystem="local" code="16779-1" displayName="Blood monocytes/100 leukocytes" /> <statusCode code="completed" /> <effectiveTime value="780678111118" /> <value unit="%" xsi:type="PQ" value="6" /> <referenceRange> <observationRange> <text>0-12 </text> </observationRange> </referenceRange> </ observation> </component> <component> <observation moodCode= "EVN" classCode="OBS"> <templateId root="2.16.840.1.670792.10.20.22.4.2 " /> <id nullFlavor="NA" /> <code codeSystem="local" code="713 -8" displayName="Automated blood eosinophils/100 leukocytes" /> < statusCode code="completed" /> <effectiveTime value="135071755337" /> <value unit="%" xsi:type="PQ" value="1" /> <referenceRange > <observationRange> <text>0-10</text> </ observationRange> </referenceRange> </observation> </ component> <component> <observation moodCode="EVN" classCode="OBS"> <templateId root="2.16.840.1.461289.10.20.22.4.2" /> <id nullFlavor="NA" /> <code codeSystem="local" code="706-2" displayName= "Automated blood basophils/100 leukocytes" /> <statusCode code= "completed" /> <effectiveTime value="076584465992" /> <value unit="%" xsi:type="PQ" value="0" /> <referenceRange> < observationRange> <text>0-10</text> </observationRange> </referenceRange> </observation> </component> < component> <observation moodCode="EVN" classCode="OBS"> < templateId root="216.840.1.108138.10.20.22.4.2" /> <id nullFlavor="NA " /> <code codeSystem="local" code="751-8" displayName="Blood neutrophils automated count (number/volume)" /> <statusCode code= "completed" /> <effectiveTime value="" /> <value unit="10*3" xsi:type="PQ" value="7.7" /> <referenceRange> < observationRange> <text>1.8-7.8</text> </ observationRange> </referenceRange> </observation> </ component> <component> <observation moodCode="EVN" classCode="OBS"> <templateId root="16.840.1.459365.10..22.4.2" /> <id nullFlavor="NA" /> <code codeSystem="local" code="731-0" displayName= "Blood lymphocytes automated count (number/volume)" /> <statusCode code ="completed" /> <effectiveTime value="" /> <value unit="10*3" xsi:type="PQ" value="1.6" /> <referenceRange> < observationRange> <text>1.0-4.0</text> </ observationRange> </referenceRange> </observation> </ component> <component> <observation moodCode="EVN" classCode="OBS"> <templateId root="16.840.1.398242.10.20.22.4.2" /> <id nullFlavor="NA" /> <code codeSystem="local" code="742-7" displayName= "Blood monocytes automated count (number/volume)" /> <statusCode code= "completed" /> <effectiveTime value="" /> <value unit="10*3" xsi:type="PQ" value="0.6" /> <referenceRange> < observationRange> <text>0.0-1.0</text> </ observationRange> </referenceRange> </observation> </ component> <component> <observation moodCode="EVN" classCode="OBS"> <templateId root="216.840.1.696364.10...4.2" /> <id nullFlavor="NA" /> <code codeSystem="local" code="711-2" displayName= "Automated eosinophil count" /> <statusCode code="completed" /> <effectiveTime value="" /> <value unit="10*3/uL" xsi: type="PQ" value="0.1" /> <referenceRange> <observationRange > <text>0.0-0.3</text> </observationRange> </ referenceRange> </observation> </component> <component> <observation moodCode="EVN" classCode="OBS"> <templateId root= "216.840.1.911240.10..4.2" /> <id nullFlavor="NA" /> < code codeSystem="local" code="704-7" displayName="Automated blood basophil count (count/volume)" /> <statusCode code="completed" /> < effectiveTime value="" /> <value unit="10*3/uL" xsi:type= "PQ" value="0.0" /> <referenceRange> <observationRange> <text>0.0-0.1</text> </observationRange> </ referenceRange> </observation> </component> </organizer> </entry > <entry> <organizer moodCode="EVN" classCode="BATTERY"> <templateId root="216.840.1.004858...4.1" /> <id nullFlavor="NA" /> <code codeSystem="local" code="21577-0" displayName="Whole blood basic metabolic panel " /> <statusCode code="completed" /> <component> <observation moodCode="EVN" classCode="OBS"> <templateId root= "2.16.840.1.209477.10.20.22.4.2" /> <id nullFlavor="NA" /> < code codeSystem="local" code="2951-2" displayName="Serum or plasma sodium measurement (moles/volume)" /> <statusCode code="completed" /> <effectiveTime value="853392986354" /> <value unit="mmol/L" xsi:type= "PQ" value="140" /> <referenceRange> <observationRange> <text>135-145</text> </observationRange> </ referenceRange> </observation> </component> <component> <observation moodCode="EVN" classCode="OBS"> <templateId root= "216.840.1.117246.10..22.4.2" /> <id nullFlavor="NA" /> < code codeSystem="local" code="2823-3" displayName="Serum or plasma potassium measurement (moles/volume)" /> <statusCode code="completed" /> <effectiveTime value="851484969012" /> <value unit="mmol/L" xsi:type= "PQ" value="3.8" /> <referenceRange> <observationRange> <text>3.6-5.0</text> </observationRange> </ referenceRange> </observation> </component> <component> <observation moodCode="EVN" classCode="OBS"> <templateId root= "2.16.840.1.877698.10.20.22.4.2" /> <id nullFlavor="NA" /> < code codeSystem="local" code="" displayName="Serum or plasma chloride measurement (moles/volume)" /> <statusCode code="completed" /> <effectiveTime value="840236806451" /> <value unit="mmol/L" xsi:type= "PQ" value="107" /> <referenceRange> <observationRange> <text>98-107</text> </observationRange> </ referenceRange> </observation> </component> <component> <observation moodCode="EVN" classCode="OBS"> <templateId root= "2.16.840.1.911279.10.20.22.4.2" /> <id nullFlavor="NA" /> < code codeSystem="local" code="2028-01" displayName="Carbon dioxide" /> < statusCode code="completed" /> <effectiveTime value="782069672899" /> <value unit="mmol/L" xsi:type="PQ" value="25" /> < referenceRange> <observationRange> <text>21-32</text> </observationRange> </referenceRange> </observation> </component> <component> <observation moodCode="EVN" classCode= "OBS"> <templateId root="2.16.840.1.121105.10.20.22.4.2" /> < id nullFlavor="NA" /> <code codeSystem="local" code="76058-9" displayName="Serum or plasma anion gap determination (moles/volume)" /> <statusCode code="completed" /> <effectiveTime value="034604495348" / > <value unit="mmol/L" xsi:type="PQ" value="8" /> < referenceRange> <observationRange> <text>5-14</text> </observationRange> </referenceRange> </observation> </component> <component> <observation moodCode="EVN" classCode= "OBS"> <templateId root="2.16.840.1.292125.10.20.22.4.2" /> < id nullFlavor="NA" /> <code codeSystem="local" code="3094-0" displayName="Serum or plasma urea nitrogen measurement (mass/volume)" /> <statusCode code="completed" /> <effectiveTime value="955293209080" /> <value unit="mg/dL" xsi:type="PQ" value="15" /> < referenceRange> <observationRange> <text>7-18</text> </observationRange> </referenceRange> </observation> </component> <component> <observation moodCode="EVN" classCode= "OBS"> <templateId root="216.840.1.079427.10..22.4.2" /> < id nullFlavor="NA" /> <code codeSystem="local" code="2160-0" displayName="Serum or plasma creatinine measurement (mass/volume)" /> < statusCode code="completed" /> <effectiveTime value="299235693959" /> <value unit="mg/dL" xsi:type="PQ" value="0.72" /> < referenceRange> <observationRange> <text>0.60-1.30</text > </observationRange> </referenceRange> </observation > </component> <component> <observation moodCode="EVN" classCode="OBS"> <templateId root="16.840.1.813727.10..22.4.2" /> <id nullFlavor="NA" /> <code codeSystem="local" code="3097-3" displayName="Serum or plasma urea nitrogen/creatinine mass ratio" /> < statusCode code="completed" /> <effectiveTime value="474581928217" /> <value unit="" xsi:type="PQ" value="21" /> <referenceRange> <observationRange> <text>NRG</text> </ observationRange> </referenceRange> </observation> </ component> <component> <observation moodCode="EVN" classCode="OBS"> <templateId root="216.840.1.874576.10.20.22.4.2" /> <id nullFlavor="NA" /> <code codeSystem="local" code="10554-7" displayName= "Serum or plasma creatinine measurement with calculation of estimated glomerular filtration rate" /> <statusCode code="completed" /> <effectiveTime value="278087761206" /> <value unit="" xsi:type="PQ" value=">" /> <referenceRange> <observationRange> <text>NRG</text> </observationRange> </referenceRange > </observation> </component> <component> <observation moodCode="EVN" classCode="OBS"> <templateId root= "06.27.840.1.112409.10..22.4.2" /> <id nullFlavor="NA" /> < code codeSystem="local" code="2345-7" displayName="Serum or plasma glucose measurement (mass/volume)" /> <statusCode code="completed" /> <effectiveTime value="209587272727" /> <value unit="mg/dL" xsi:type="PQ " value="82" /> <referenceRange> <observationRange> <text>70-105</text> </observationRange> </ referenceRange> </observation> </component> <component> <observation moodCode="EVN" classCode="OBS"> <templateId root= "16.840.1.907180.10.20.22.4.2" /> <id nullFlavor="NA" /> < code codeSystem="local" code="53549-7" displayName="Serum or plasma calcium measurement (mass/volume)" /> <statusCode code="completed" /> <effectiveTime value="853092152123" /> <value unit="mg/dL" xsi:type="PQ " value="9.6" /> <referenceRange> <observationRange> <text>8.5-10.1</text> </observationRange> </ referenceRange> </observation> </component> </organizer> </entry > <entry> <organizer moodCode="EVN" classCode="BATTERY"> <templateId root="2.16.840.1.247437.10.20.22.4.1" /> <id nullFlavor="NA" /> <code codeSystem="local" code="2117-12" displayName="Serum or plasma choriogonadotropin ( test) detection" /> <statusCode code= "completed" /> <component> <observation moodCode="EVN" classCode= "OBS"> <templateId root="2.16.840.1.237463.10.20.22.4.2" /> < id nullFlavor="NA" /> <code codeSystem="local" code="2117-12" displayName="Serum or plasma choriogonadotropin ( test) detection" /> <statusCode code="completed" /> <effectiveTime value= "589779417787" /> <value unit="" xsi:type="PQ" value="NEGATIVE" /> <referenceRange> <observationRange> <text>NEGATIVE </text> </observationRange> </referenceRange> </ observation> </component> </organizer> </entry> <entry> <organizer moodCode="EVN" classCode="BATTERY"> <templateId root= "2.16.840.1.524450.10.20.22.4.1" /> <id nullFlavor="NA" /> <code codeSystem="local" code="600-7" displayName="Bacterial blood culture" /> < statusCode code="completed" /> <component> <observation moodCode= "EVN" classCode="OBS"> <templateId root="2.16.840.1.425920.10..22.4.2 " /> <id nullFlavor="NA" /> <code codeSystem="local" code="600 -7" displayName="Bacterial blood culture" /> <statusCode code= "completed" /> <effectiveTime value="542667902713" /> <value unit="" xsi:type="PQ" value="NG" /> <referenceRange> < observationRange> <text>NRG</text> </observationRange> </referenceRange> </observation> </component> </ organizer> </entry> <entry> <organizer moodCode="EVN" classCode="BATTERY"> <templateId root="2.16.840.1.112076.10..22.4.1" /> <id nullFlavor= "NA" /> <code codeSystem="local" code="54187-6" displayName="Methicillin resistant Staphylococcus aureus (MRSA) screening culture" /> <statusCode code="completed" /> <component> <observation moodCode="EVN" classCode="OBS"> <templateId root="2.16.840.1.333400.10.20.22.4.2" /> <id nullFlavor="NA" /> <code codeSystem="local" code="MRSARES " displayName="MRSA SCREEN RESULT" /> <statusCode code="completed" /> <effectiveTime value="791782679820" /> <value unit="" xsi:type ="PQ" value="MRSA ISOLATED" /> <interpretationCode codeSystem="local" code="*" /> <referenceRange> <observationRange> <text>NRG</text> </observationRange> </referenceRange> </observation> </component> </organizer> </entry> <entry> < organizer moodCode="EVN" classCode="BATTERY"> <templateId root= "216.840.1.321400.10...4.1" /> <id nullFlavor="NA" /> <code codeSystem="local" code="600-7" displayName="Bacterial blood culture" /> < statusCode code="completed" /> <component> <observation moodCode= "EVN" classCode="OBS"> <templateId root="16.840.1.259629.10..4.2 " /> <id nullFlavor="NA" /> <code codeSystem="local" code="600 7" displayName="Bacterial blood culture" /> <statusCode code= "completed" /> <effectiveTime value="977661222600" /> <value unit="" xsi:type="PQ" value="NG" /> <referenceRange> < observationRange> <text>NRG</text> </observationRange> </referenceRange> </observation> </component> </ organizer> </entry> <entry> <organizer moodCode="EVN" classCode="BATTERY"> <templateId root="216.840.1.668083.10..4.1" /> <id nullFlavor= "NA" /> <code codeSystem="local" code="83230-5" displayName="Urine drug screening test" /> <statusCode code="completed" /> <component> <observation moodCode="EVN" classCode="OBS"> <templateId root= "216.840.1.695272.10...4.2" /> <id nullFlavor="NA" /> < code codeSystem="local" code="83088-4" displayName="Urine phencyclidine detection by screening method" /> <statusCode code="completed" /> <effectiveTime value="" /> <value unit="" xsi:type="PQ " value="NEGATIVE" /> <referenceRange> <observationRange> <text>NEGATIVE</text> </observationRange> </ referenceRange> </observation> </component> <component> <observation moodCode="EVN" classCode="OBS"> <templateId root= "216.840.1.258702.10.22.4.2" /> <id nullFlavor="NA" /> < code codeSystem="local" code="31465-6" displayName="Urine benzodiazepines detection by screening method" /> <statusCode code="completed" /> <effectiveTime value="" /> <value unit="" xsi:type="PQ " value="NEGATIVE" /> <referenceRange> <observationRange> <text>NEGATIVE</text> </observationRange> </ referenceRange> </observation> </component> <component> <observation moodCode="EVN" classCode="OBS"> <templateId root= "216.840.1.989912.10..4.2" /> <id nullFlavor="NA" /> < code codeSystem="local" code="3397-7" displayName="Urine cocaine detection" /> <statusCode code="completed" /> <effectiveTime value= "" /> <value unit="" xsi:type="PQ" value="NEGATIVE" /> <referenceRange> <observationRange> <text>NEGATIVE </text> </observationRange> </referenceRange> </ observation> </component> <component> <observation moodCode= "EVN" classCode="OBS"> <templateId root="216.840.1.312707.10.20.22.4.2 " /> <id nullFlavor="NA" /> <code codeSystem="local" code= "46508-0" displayName="Urine amphetamines detection by screening method" /> <statusCode code="completed" /> <effectiveTime value= "" /> <value unit="" xsi:type="PQ" value="POSITIVE" /> <interpretationCode codeSystem="local" code="*" /> < referenceRange> <observationRange> <text>NEGATIVE</text > </observationRange> </referenceRange> </observation > </component> <component> <observation moodCode="EVN" classCode="OBS"> <templateId root="2.16.840.1.131852.10.20.22.4.2" /> <id nullFlavor="NA" /> <code codeSystem="local" code="40990-5 " displayName="Urine methamphetamine detection by screening method" /> <statusCode code="completed" /> <effectiveTime value="" /> <value unit="" xsi:type="PQ" value="NEGATIVE" /> < referenceRange> <observationRange> <text>NEGATIVE</text > </observationRange> </referenceRange> </observation > </component> <component> <observation moodCode="EVN" classCode="OBS"> <templateId root="2.16.840.1.168496.10.20.22.4.2" /> <id nullFlavor="NA" /> <code codeSystem="local" code="65478-6 " displayName="Urine cannabinoids detection by screening method" /> < statusCode code="completed" /> <effectiveTime value="" /> <value unit="" xsi:type="PQ" value="POSITIVE" /> < interpretationCode codeSystem="local" code="*" /> <referenceRange> <observationRange> <text>NEGATIVE</text> </ observationRange> </referenceRange> </observation> </ component> <component> <observation moodCode="EVN" classCode="OBS"> <templateId root="2.16.840.1.697997.10.20.22.4.2" /> <id nullFlavor="NA" /> <code codeSystem="local" code="58304-2" displayName= "Urine opiates detection by screening method" /> <statusCode code= "completed" /> <effectiveTime value="" /> <value unit="" xsi:type="PQ" value="NEGATIVE" /> <referenceRange> < observationRange> <text>NEGATIVE</text> </ observationRange> </referenceRange> </observation> </ component> <component> <observation moodCode="EVN" classCode="OBS"> <templateId root="2.16.840.1.658288.10..22.4.2" /> <id nullFlavor="NA" /> <code codeSystem="local" code="3377-9" displayName= "Urine barbiturates detection" /> <statusCode code="completed" /> <effectiveTime value="" /> <value unit="" xsi:type="PQ " value="NEGATIVE" /> <referenceRange> <observationRange> <text>NEGATIVE</text> </observationRange> </ referenceRange> </observation> </component> <component> <observation moodCode="EVN" classCode="OBS"> <templateId root= "2.16.840.1.028009.10..22.4.2" /> <id nullFlavor="NA" /> < code codeSystem="local" code="43645-4" displayName="Screening urine tricyclic antidepressants detection" /> <statusCode code="completed" /> <effectiveTime value="" /> <value unit="" xsi:type="PQ" value="NEGATIVE" /> <referenceRange> <observationRange> <text>NEGATIVE</text> </observationRange> </ referenceRange> </observation> </component> <component> <observation moodCode="EVN" classCode="OBS"> <templateId root= "2.16.840.1.334752.10..22.4.2" /> <id nullFlavor="NA" /> < code codeSystem="local" code="98468-7" displayName="Urine methadone detection by screening method" /> <statusCode code="completed" /> < effectiveTime value="" /> <value unit="" xsi:type="PQ" value="NEGATIVE" /> <referenceRange> <observationRange> <text>NEGATIVE</text> </observationRange> </ referenceRange> </observation> </component> <component> <observation moodCode="EVN" classCode="OBS"> <templateId root= "216.840.1.207867.10..4.2" /> <id nullFlavor="NA" /> < code codeSystem="local" code="60320-8" displayName="Urine oxycodone detection" / > <statusCode code="completed" /> <effectiveTime value= "" /> <value unit="" xsi:type="PQ" value="NEGATIVE" /> <referenceRange> <observationRange> <text>NEGATIVE </text> </observationRange> </referenceRange> </ observation> </component> <component> <observation moodCode= "EVN" classCode="OBS"> <templateId root="216.840.1.334388.10...4.2 " /> <id nullFlavor="NA" /> <code codeSystem="local" code= "03361-3" displayName="Urine propoxyphene detection" /> <statusCode code="completed" /> <effectiveTime value="" /> < value unit="" xsi:type="PQ" value="NEGATIVE" /> <referenceRange> <observationRange> <text>NEGATIVE</text> </ observationRange> </referenceRange> </observation> </ component> </organizer> </entry> <entry> <organizer moodCode="EVN" classCode="BATTERY"> <templateId root="16.840.1.331069.10..22.4.1" /> <id nullFlavor="NA" /> <code codeSystem="local" code="56011-8" displayName="Bacteria identification in isolate by anaerobe culture" /> < statusCode code="completed" /> <component> <observation moodCode= "EVN" classCode="OBS"> <templateId root="216.840.1.355321.10..22.4.2 " /> <id nullFlavor="NA" /> <code codeSystem="local" code= "92492-5" displayName="Bacteria identification in isolate by anaerobe culture" / > <statusCode code="completed" /> <effectiveTime value= "243179573987" /> <value unit="" xsi:type="PQ" value="NOANA" /> <referenceRange> <observationRange> <text>NRG</text> </observationRange> </referenceRange> </observation > </component> </organizer> </entry> <entry> <organizer moodCode= "EVN" classCode="BATTERY"> <templateId root="216.840.1.094847.10..22.4.1 " /> <id nullFlavor="NA" /> <code codeSystem="local" code="664-3" displayName="Gram stain microscopy" /> <statusCode code="completed" /> <component> <observation moodCode="EVN" classCode="OBS"> < templateId root="06.27.840.1.116581.02.28.22.4.2" /> <id nullFlavor="NA " /> <code codeSystem="local" code="664-3" displayName="Gram stain microscopy" /> <statusCode code="completed" /> <effectiveTime value="454466577554" /> <value unit="" xsi:type="PQ" value="REPORTED ,0605." /> <referenceRange> <observationRange> <text>NRG</text> </observationRange> </ referenceRange> </observation> </component> </organizer> </entry > <entry> <organizer moodCode="EVN" classCode="BATTERY"> <templateId root="16.840.1.410303.10..4.1" /> <id nullFlavor="NA" /> <code codeSystem="local" code="6462-6" displayName="Bacteria identification in wound by culture" /> <statusCode code="completed" /> <component> < observation moodCode="EVN" classCode="OBS"> <templateId root= "16.840.1.997237.10...4.2" /> <id nullFlavor="NA" /> < code codeSystem="local" code="6462-6" displayName="Bacteria identification in wound by culture" /> <statusCode code="completed" /> < effectiveTime value="949996919060" /> <value unit="" xsi:type="PQ" value="SEE REPORT" /> <referenceRange> <observationRange> <text>NRG</text> </observationRange> </ referenceRange> </observation> </component> <component> <observation moodCode="EVN" classCode="OBS"> <templateId root= "16.840.1.343103.10..4.2" /> <id nullFlavor="NA" /> < code codeSystem="local" code="FTEXTERNAL" displayName="FREE TEXT EXTERNAL" /> <statusCode code="completed" /> <effectiveTime value= "615346350492" /> <value unit="" xsi:type="PQ" value="METHICILLIN- RESISTANT STAPH AUREUS" /> <referenceRange> < observationRange> <text>NRG</text> </observationRange> </referenceRange> </observation> </component> < component> <observation moodCode="EVN" classCode="OBS"> < templateId root="840.1.260463.10..4.2" /> <id nullFlavor="NA " /> <code codeSystem="local" code="G" displayName="QUANTITY OF GROWTH " /> <statusCode code="completed" /> <effectiveTime value= "524955230985" /> <value unit="" xsi:type="PQ" value="." /> < referenceRange> <observationRange> <text>NRG</text> </observationRange> </referenceRange> </observation> </component> </organizer> </entry> <entry> <organizer moodCode="EVN" classCode="BATTERY"> <templateId root="840.1.012034.10..4.1" /> <id nullFlavor="NA" /> <code codeSystem="local" code="RML-SENS" displayName="RML Sensitivity Panel" /> <statusCode code="completed" /> <component> <observation moodCode="EVN" classCode="OBS"> < templateId root="06.27.840.1.784765.10.4.2" /> <id nullFlavor="NA " /> <code codeSystem="local" code="383-0" displayName="Oxacillin susceptibility test by minimum inhibitory concentration" /> < statusCode code="completed" /> <effectiveTime value="123092468821" /> <value unit="" xsi:type="PQ" value="R" /> <interpretationCode codeSystem="local" code="*" /> <referenceRange> < observationRange> <text>NRG</text> </observationRange> </referenceRange> </observation> </component> < component> <observation moodCode="EVN" classCode="OBS"> < templateId root="216.840.1.928169.10.20.22.4.2" /> <id nullFlavor="NA " /> <code codeSystem="local" code="193-3" displayName="Clindamycin susceptibility test by minimum inhibitory concentration" /> < statusCode code="completed" /> <effectiveTime value="927168230063" /> <value unit="" xsi:type="PQ" value="<=" /> < interpretationCode codeSystem="local" code="*" /> <referenceRange> <observationRange> <text>NRG</text> </ observationRange> </referenceRange> </observation> </ component> <component> <observation moodCode="EVN" classCode="OBS"> <templateId root="216.840.1.315502.10.20.22.4.2" /> <id nullFlavor="NA" /> <code codeSystem="local" code="233-7" displayName= "Erythromycin susceptibility test by minimum inhibitory concentration" /> <statusCode code="completed" /> <effectiveTime value="956954742152 " /> <value unit="" xsi:type="PQ" value=">" /> < interpretationCode codeSystem="local" code="*" /> <referenceRange> <observationRange> <text>NRG</text> </ observationRange> </referenceRange> </observation> </ component> <component> <observation moodCode="EVN" classCode="OBS"> <templateId root="216.840.1.992590.10..22.4.2" /> <id nullFlavor="NA" /> <code codeSystem="local" code="516-5" displayName= "Trimethoprim/sulfamethoxazole susceptibility test by minimum inhibitoryconcentration" /> <statusCode code="completed" /> < effectiveTime value="763903967377" /> <value unit="" xsi:type="PQ" value="S" /> <interpretationCode codeSystem="local" code="*" /> <referenceRange> <observationRange> <text>NRG</text> </observationRange> </referenceRange> </observation > </component> <component> <observation moodCode="EVN" classCode="OBS"> <templateId root="216.840.1.049122.10...4.2" /> <id nullFlavor="NA" /> <code codeSystem="local" code="524-9" displayName="Vancomycin susceptibility test by minimum inhibitory concentration " /> <statusCode code="completed" /> <effectiveTime value= "181575719224" /> <value unit="" xsi:type="PQ" value="1" /> < interpretationCode codeSystem="local" code="*" /> <referenceRange> <observationRange> <text>NRG</text> </ observationRange> </referenceRange> </observation> </ component> <component> <observation moodCode="EVN" classCode="OBS"> <templateId root="216.840.1.913857.10..22.4.2" /> <id nullFlavor="NA" /> <code codeSystem="local" code="63955-7" displayName= "Levofloxacin susceptibility test by minimum inhibitory concentration" /> <statusCode code="completed" /> <effectiveTime value="857462934833 " /> <value unit="" xsi:type="PQ" value="4" /> < interpretationCode codeSystem="local" code="*" /> <referenceRange> <observationRange> <text>NRG</text> </ observationRange> </referenceRange> </observation> </ component> <component> <observation moodCode="EVN" classCode="OBS"> <templateId root="216.840.1.390852.10.22.4.2" /> <id nullFlavor="NA" /> <code codeSystem="local" code="428-3" displayName= "Rifampin susceptibility test by minimum inhibitory concentration" /> < statusCode code="completed" /> <effectiveTime value="802606284058" /> <value unit="" xsi:type="PQ" value="<=" /> < interpretationCode codeSystem="local" code="*" /> <referenceRange> <observationRange> <text>NRG</text> </ observationRange> </referenceRange> </observation> </ component> <component> <observation moodCode="EVN" classCode="OBS"> <templateId root="216.840.1.152879.10.20.22.4.2" /> <id nullFlavor="NA" /> <code codeSystem="local" code="76-0" displayName= "Cefazolin susceptibility test by minimum inhibitory concentration" /> <statusCode code="completed" /> <effectiveTime value="529534238994" /> <value unit="" xsi:type="PQ" value=">" /> < interpretationCode codeSystem="local" code="*" /> <referenceRange> <observationRange> <text>NRG</text> </ observationRange> </referenceRange> </observation> </ component> <component> <observation moodCode="EVN" classCode="OBS"> <templateId root="16.840.1.732856.10.20.22.4.2" /> <id nullFlavor="NA" /> <code codeSystem="local" code="00306-8" displayName= "Linezolid susceptibility test by minimum inhibitory concentration" /> <statusCode code="completed" /> <effectiveTime value="768569565111" /> <value unit="" xsi:type="PQ" value="2" /> < interpretationCode codeSystem="local" code="*" /> <referenceRange> <observationRange> <text>NRG</text> </ observationRange> </referenceRange> </observation> </ component> <component> <observation moodCode="EVN" classCode="OBS"> <templateId root="06.27.840.1.186668.10.22.4.2" /> <id nullFlavor="NA" /> <code codeSystem="local" code="392-1" displayName= "Penicillin G susceptibility test by minimum inhibitory concentration" /> <statusCode code="completed" /> <effectiveTime value="096966435119 " /> <value unit="" xsi:type="PQ" value=">" /> < interpretationCode codeSystem="local" code="*" /> <referenceRange> <observationRange> <text>NRG</text> </ observationRange> </referenceRange> </observation> </ component> <component> <observation moodCode="EVN" classCode="OBS"> <templateId root="06.27.840.1.446454.10.20.22.4.2" /> <id nullFlavor="NA" /> <code codeSystem="local" code="65737-7" displayName= "Moxifloxacin susceptibility test by minimum inhibitory concentration" /> <statusCode code="completed" /> <effectiveTime value="777853785817 " /> <value unit="" xsi:type="PQ" value="S" /> < interpretationCode codeSystem="local" code="*" /> <referenceRange> <observationRange> <text>NRG</text> </ observationRange> </referenceRange> </observation> </ component> <component> <observation moodCode="EVN" classCode="OBS"> <templateId root="840.1.887325.02.28.22.4.2" /> <id nullFlavor="NA" /> <code codeSystem="local" code="335-0" displayName= "Minocycline sus SHAYNA" /> <statusCode code="completed" /> < effectiveTime value="047810457259" /> <value unit="" xsi:type="PQ" value="<=" /> <interpretationCode codeSystem="local" code="*" /> <referenceRange> <observationRange> <text>NRG</ text> </observationRange> </referenceRange> </ observation> </component> </organizer> </entry> <entry> <organizer moodCode="EVN" classCode="BATTERY"> <templateId root= "840.1.491869.02.28.22.4.1" /> <id nullFlavor="NA" /> <code codeSystem="local" code="27207-3" displayName="Complete urinalysis with reflex to culture" /> <statusCode code="completed" /> <component> < observation moodCode="EVN" classCode="OBS"> <templateId root= "840.1.018729.02.28.22.4.2" /> <id nullFlavor="NA" /> < code codeSystem="local" code="5778-6" displayName="Urine color determination" / > <statusCode code="completed" /> <effectiveTime value= "645643431799" /> <value unit="" xsi:type="PQ" value="YELLOW" /> <referenceRange> <observationRange> <text>NRG</text > </observationRange> </referenceRange> </observation > </component> <component> <observation moodCode="EVN" classCode="OBS"> <templateId root="216.840.1.158145.10.20.22.4.2" /> <id nullFlavor="NA" /> <code codeSystem="local" code="34207-2 " displayName="Urine clarity determination" /> <statusCode code= "completed" /> <effectiveTime value="725761674394" /> <value unit="" xsi:type="PQ" value="VERY CLOUDY" /> <interpretationCode codeSystem="local" code="*" /> <referenceRange> < observationRange> <text>NRG</text> </observationRange> </referenceRange> </observation> </component> < component> <observation moodCode="EVN" classCode="OBS"> < templateId root="06.27.840.1.766921.10..4.2" /> <id nullFlavor="NA " /> <code codeSystem="local" code="5803-2" displayName="Urine pH measurement by test strip" /> <statusCode code="completed" /> <effectiveTime value="635085708050" /> <value unit="" xsi:type="PQ" value="6.5" /> <referenceRange> <observationRange> <text>5-9</text> </observationRange> </referenceRange> </observation> </component> <component> <observation moodCode="EVN" classCode="OBS"> <templateId root= "16.840.1.176712.10.20.22.4.2" /> <id nullFlavor="NA" /> < code codeSystem="local" code="5811-5" displayName="Specific gravity of urine by test strip" /> <statusCode code="completed" /> <effectiveTime value="786209166893" /> <value unit="" xsi:type="PQ" value="1.010" /> <interpretationCode codeSystem="local" code="" /> < referenceRange> <observationRange> <text>1.016-1.022</ text> </observationRange> </referenceRange> </ observation> </component> <component> <observation moodCode= "EVN" classCode="OBS"> <templateId root="2.16.840.1.352480.10...4.2 " /> <id nullFlavor="NA" /> <code codeSystem="local" code= "78757-2" displayName="Urine protein assay by test strip, semi-quantitative" /> <statusCode code="completed" /> <effectiveTime value= "828379680112" /> <value unit="" xsi:type="PQ" value="4+" /> < referenceRange> <observationRange> <text>NEGATIVE</text > </observationRange> </referenceRange> </observation > </component> <component> <observation moodCode="EVN" classCode="OBS"> <templateId root="2.16.840.1.045583.10..22.4.2" /> <id nullFlavor="NA" /> <code codeSystem="local" code="51228-1 " displayName="Urine glucose detection by automated test strip" /> < statusCode code="completed" /> <effectiveTime value="984472393685" /> <value unit="" xsi:type="PQ" value="NEGATIVE" /> < referenceRange> <observationRange> <text>NEGATIVE</text > </observationRange> </referenceRange> </observation > </component> <component> <observation moodCode="EVN" classCode="OBS"> <templateId root="16.840.1.200484.10..22.4.2" /> <id nullFlavor="NA" /> <code codeSystem="local" code="65929-3 " displayName="Erythrocytes detection in urine sediment by light microscopy" /> <statusCode code="completed" /> <effectiveTime value= "569923956378" /> <value unit="" xsi:type="PQ" value="4+" /> < interpretationCode codeSystem="local" code="*" /> <referenceRange> <observationRange> <text>NEGATIVE</text> </ observationRange> </referenceRange> </observation> </ component> <component> <observation moodCode="EVN" classCode="OBS"> <templateId root="06.27.840.1.937167...4.2" /> <id nullFlavor="NA" /> <code codeSystem="local" code="25488-1" displayName= "Urine ketones detection by automated test strip" /> <statusCode code= "completed" /> <effectiveTime value="818137256931" /> <value unit="" xsi:type="PQ" value="1+" /> <interpretationCode codeSystem= "local" code="*" /> <referenceRange> <observationRange> <text>NEGATIVE</text> </observationRange> </ referenceRange> </observation> </component> <component> <observation moodCode="EVN" classCode="OBS"> <templateId root= "06.27.840.1.101662.10..4.2" /> <id nullFlavor="NA" /> < code codeSystem="local" code="5802-4" displayName="Urine nitrite detection by test strip" /> <statusCode code="completed" /> <effectiveTime value="872953545330" /> <value unit="" xsi:type="PQ" value="POSITIVE" / > <interpretationCode codeSystem="local" code="*" /> < referenceRange> <observationRange> <text>NEGATIVE</text > </observationRange> </referenceRange> </observation > </component> <component> <observation moodCode="EVN" classCode="OBS"> <templateId root="216.840.1.679040.10..4.2" /> <id nullFlavor="NA" /> <code codeSystem="local" code="5770-3" displayName="Urine total bilirubin detection by test strip" /> < statusCode code="completed" /> <effectiveTime value="639163104163" /> <value unit="" xsi:type="PQ" value="NEGATIVE" /> < referenceRange> <observationRange> <text>NEGATIVE</text > </observationRange> </referenceRange> </observation > </component> <component> <observation moodCode="EVN" classCode="OBS"> <templateId root="216.840.1.714896.10..4.2" /> <id nullFlavor="NA" /> <code codeSystem="local" code="90574-9 " displayName="Urine urobilinogen measurement by automated test strip (mass/ volume)" /> <statusCode code="completed" /> <effectiveTime value="633288432260" /> <value unit="mg/dL" xsi:type="PQ" value="4" /> <interpretationCode codeSystem="local" code="*" /> < referenceRange> <observationRange> <text>NORMAL</text> </observationRange> </referenceRange> </observation> </component> <component> <observation moodCode="EVN" classCode ="OBS"> <templateId root="216.840.1.469018.02.28.22.4.2" /> < id nullFlavor="NA" /> <code codeSystem="local" code="5799-2" displayName="Urine leukocyte esterase detection by dipstick" /> < statusCode code="completed" /> <effectiveTime value="495768062487" /> <value unit="" xsi:type="PQ" value="3+" /> < interpretationCode codeSystem="local" code="*" /> <referenceRange> <observationRange> <text>NEGATIVE</text> </ observationRange> </referenceRange> </observation> </ component> <component> <observation moodCode="EVN" classCode="OBS"> <templateId root="16.840.1.649399.1022.4.2" /> <id nullFlavor="NA" /> <code codeSystem="local" code="93656-0" displayName= "Automated urine sediment erythrocyte count by microscopy (number/high power field)" /> <statusCode code="completed" /> <effectiveTime value="034589989114" /> <value unit="[HPF]" xsi:type="PQ" value="" /> <interpretationCode codeSystem="local" code="*" /> < referenceRange> <observationRange> <text>NRG</text> </observationRange> </referenceRange> </observation> </component> <component> <observation moodCode="EVN" classCode= "OBS"> <templateId root="16.840.1.546074.10.22.4.2" /> < id nullFlavor="NA" /> <code codeSystem="local" code="5821-4" displayName="Automated urine sediment leukocyte count by microscopy (number/ high power field)" /> <statusCode code="completed" /> < effectiveTime value="358807323523" /> <value unit="" xsi:type="PQ" value="TNTC" /> <interpretationCode codeSystem="local" code="*" /> <referenceRange> <observationRange> <text>NRG</ text> </observationRange> </referenceRange> </ observation> </component> <component> <observation moodCode= "EVN" classCode="OBS"> <templateId root="216.840.1.689374.10.20.22.4.2 " /> <id nullFlavor="NA" /> <code codeSystem="local" code= "77889-7" displayName="Bacteria detection in urine sediment by light microscopy " /> <statusCode code="completed" /> <effectiveTime value= "256036451477" /> <value unit="" xsi:type="PQ" value="LARGE" /> <interpretationCode codeSystem="local" code="*" /> <referenceRange> <observationRange> <text>NRG</text> </ observationRange> </referenceRange> </observation> </ component> <component> <observation moodCode="EVN" classCode="OBS"> <templateId root="16.840.1.345251.10.22.4.2" /> <id nullFlavor="NA" /> <code codeSystem="local" code="33603-0" displayName= "Squamous epithelial cells detection in urine sediment by light microscopy" /> <statusCode code="completed" /> <effectiveTime value= "894200854215" /> <value unit="" xsi:type="PQ" value="10-25" /> <interpretationCode codeSystem="local" code="*" /> <referenceRange> <observationRange> <text>NRG</text> </ observationRange> </referenceRange> </observation> </ component> <component> <observation moodCode="EVN" classCode="OBS"> <templateId root="216.840.1.616464.1020.4.2" /> <id nullFlavor="NA" /> <code codeSystem="local" code="26647-5" displayName= "Crystals detection in urine sediment by light microscopy" /> < statusCode code="completed" /> <effectiveTime value="202771715405" /> <value unit="" xsi:type="PQ" value="NONE" /> <referenceRange> <observationRange> <text>NRG</text> </ observationRange> </referenceRange> </observation> </ component> <component> <observation moodCode="EVN" classCode="OBS"> <templateId root="2.16.840.1.805422.10..22.4.2" /> <id nullFlavor="NA" /> <code codeSystem="local" code="19521-4" displayName= "Casts detection in urine sediment by light microscopy" /> <statusCode code="completed" /> <effectiveTime value="680382620258" /> < value unit="" xsi:type="PQ" value="NONE" /> <referenceRange> <observationRange> <text>NRG</text> </observationRange > </referenceRange> </observation> </component> < component> <observation moodCode="EVN" classCode="OBS"> < templateId root="2.16.840.1.830311.10..22.4.2" /> <id nullFlavor="NA " /> <code codeSystem="local" code="8247-9" displayName="Mucus detection in urine sediment by light microscopy" /> <statusCode code= "completed" /> <effectiveTime value="137926199808" /> <value unit="" xsi:type="PQ" value="NEGATIVE" /> <referenceRange> < observationRange> <text>NRG</text> </observationRange> </referenceRange> </observation> </component> < component> <observation moodCode="EVN" classCode="OBS"> < templateId root="216.840.1.339525.10..22.4.2" /> <id nullFlavor="NA " /> <code codeSystem="local" code="72071-0" displayName="Complete urinalysis with reflex to culture" /> <statusCode code="completed" /> <effectiveTime value="967763222517" /> <value unit="" xsi:type ="PQ" value="YES" /> <referenceRange> <observationRange> <text>NRG</text> </observationRange> </ referenceRange> </observation> </component> </organizer> </entry > <entry> <organizer moodCode="EVN" classCode="BATTERY"> <templateId root="216.840.1.817715.10..22.4.1" /> <id nullFlavor="NA" /> <code codeSystem="local" code="630-4" displayName="Bacterial urine culture" /> < statusCode code="completed" /> <component> <observation moodCode= "EVN" classCode="OBS"> <templateId root="2.16.840.1.474069.10..22.4.2 " /> <id nullFlavor="NA" /> <code codeSystem="local" code="630 -4" displayName="Bacterial urine culture" /> <statusCode code= "completed" /> <effectiveTime value="574710029188" /> <value unit="" xsi:type="PQ" value="687426056" /> <referenceRange> <observationRange> <text>NRG</text> </observationRange> </referenceRange> </observation> </component> < component> <observation moodCode="EVN" classCode="OBS"> < templateId root="216.840.1.134719.22.4.2" /> <id nullFlavor="NA " /> <code codeSystem="local" code="CC" displayName="COLONY COUNT" /> <statusCode code="completed" /> <effectiveTime value= "707188236948" /> <value unit="" xsi:type="PQ" value=">100,000/ML" / > <referenceRange> <observationRange> <text>NRG </text> </observationRange> </referenceRange> </ observation> </component> <component> <observation moodCode= "EVN" classCode="OBS"> <templateId root="840.1.156044.02.28.22.4.2 " /> <id nullFlavor="NA" /> <code codeSystem="local" code= "FTXENTRY" displayName="FTX;REPORTABLE" /> <statusCode code="completed " /> <effectiveTime value="664870766977" /> <value unit="" xsi :type="PQ" value="SUSCEPTIBILITY REPORTED 03-21-2018,1005" /> < referenceRange> <observationRange> <text>NRG</text> </observationRange> </referenceRange> </observation> </component> </organizer> </entry> <entry> <organizer moodCode="EVN" classCode="BATTERY"> <templateId root="840.1.394940.02.28.22.4.1" /> <id nullFlavor="NA" /> <code codeSystem="local" code="RML-SENS" displayName="RML Sensitivity Panel" /> <statusCode code="completed" /> <component> <observation moodCode="EVN" classCode="OBS"> < templateId root="840.1.067967.22.4.2" /> <id nullFlavor="NA " /> <code codeSystem="local" code="267-5" displayName="Gentamicin susceptibility test by minimum inhibitory concentration" /> < statusCode code="completed" /> <effectiveTime value="076774156271" /> <value unit="" xsi:type="PQ" value="<=" /> < interpretationCode codeSystem="local" code="*" /> <referenceRange> <observationRange> <text>NRG</text> </ observationRange> </referenceRange> </observation> </ component> <component> <observation moodCode="EVN" classCode="OBS"> <templateId root="2.16.840.1.267831.10..22.4.2" /> <id nullFlavor="NA" /> <code codeSystem="local" code="516-5" displayName= "Trimethoprim/sulfamethoxazole susceptibility test by minimum inhibitoryconcentration" /> <statusCode code="completed" /> < effectiveTime value="610785716931" /> <value unit="" xsi:type="PQ" value=">" /> <interpretationCode codeSystem="local" code="*" /> <referenceRange> <observationRange> <text>NRG</ text> </observationRange> </referenceRange> </ observation> </component> <component> <observation moodCode= "EVN" classCode="OBS"> <templateId root="216.840.1.332632.10..22.4.2 " /> <id nullFlavor="NA" /> <code codeSystem="local" code= "27533-0" displayName="Levofloxacin susceptibility test by minimum inhibitory concentration" /> <statusCode code="completed" /> < effectiveTime value="408343512990" /> <value unit="" xsi:type="PQ" value="<=" /> <interpretationCode codeSystem="local" code="*" /> <referenceRange> <observationRange> <text>NRG</ text> </observationRange> </referenceRange> </ observation> </component> <component> <observation moodCode= "EVN" classCode="OBS"> <templateId root="840.1.741407.10.20.22.4.2 " /> <id nullFlavor="NA" /> <code codeSystem="local" code="28- 1" displayName="Ampicillin susceptibility test by minimum inhibitory concentration" /> <statusCode code="completed" /> < effectiveTime value="350531890821" /> <value unit="" xsi:type="PQ" value=">" /> <interpretationCode codeSystem="local" code="*" /> <referenceRange> <observationRange> <text>NRG</ text> </observationRange> </referenceRange> </ observation> </component> <component> <observation moodCode= "EVN" classCode="OBS"> <templateId root="840.1.408749.10.2022.4.2 " /> <id nullFlavor="NA" /> <code codeSystem="local" code="76- 0" displayName="Cefazolin susceptibility test by minimum inhibitory concentration" /> <statusCode code="completed" /> < effectiveTime value="074406277565" /> <value unit="" xsi:type="PQ" value="2" /> <interpretationCode codeSystem="local" code="*" /> <referenceRange> <observationRange> <text>NRG</text> </observationRange> </referenceRange> </observation > </component> <component> <observation moodCode="EVN" classCode="OBS"> <templateId root="06.27.840.1.649403.10.20.22.4.2" /> <id nullFlavor="NA" /> <code codeSystem="local" code="141-2" displayName="Ceftriaxone susceptibility test by minimum inhibitory concentration " /> <statusCode code="completed" /> <effectiveTime value= "614024515371" /> <value unit="" xsi:type="PQ" value="<=" /> <interpretationCode codeSystem="local" code="*" /> <referenceRange> <observationRange> <text>NRG</text> </ observationRange> </referenceRange> </observation> </ component> <component> <observation moodCode="EVN" classCode="OBS"> <templateId root="2.16.840.1.663833.10..22.4.2" /> <id nullFlavor="NA" /> <code codeSystem="local" code="185-9" displayName= "Ciprofloxacin susceptibility test by minimum inhibitory concentration" /> <statusCode code="completed" /> <effectiveTime value="538522408956 " /> <value unit="" xsi:type="PQ" value="<=" /> < interpretationCode codeSystem="local" code="*" /> <referenceRange> <observationRange> <text>NRG</text> </ observationRange> </referenceRange> </observation> </ component> <component> <observation moodCode="EVN" classCode="OBS"> <templateId root="216.840.1.909906.10.20.22.4.2" /> <id nullFlavor="NA" /> <code codeSystem="local" code="6652-2" displayName= "Meropenem susceptibility test by minimum inhibitory concentration" /> <statusCode code="completed" /> <effectiveTime value="937331807976" /> <value unit="" xsi:type="PQ" value="<=" /> < interpretationCode codeSystem="local" code="*" /> <referenceRange> <observationRange> <text>NRG</text> </ observationRange> </referenceRange> </observation> </ component> <component> <observation moodCode="EVN" classCode="OBS"> <templateId root="06.27.840.1.711298.10.2022.4.2" /> <id nullFlavor="NA" /> <code codeSystem="local" code="363-2" displayName= "Nitrofurantoin susceptibility test by minimum inhibitory concentration" /> <statusCode code="completed" /> <effectiveTime value= "758846961332" /> <value unit="" xsi:type="PQ" value="<=" /> <interpretationCode codeSystem="local" code="*" /> <referenceRange> <observationRange> <text>NRG</text> </ observationRange> </referenceRange> </observation> </ component> <component> <observation moodCode="EVN" classCode="OBS"> <templateId root="06.27.840.1.494668.10..4.2" /> <id nullFlavor="NA" /> <code codeSystem="local" code="20-8" displayName= "Amoxicillin and clavulanate potassium susc SHAYNA" /> <statusCode code= "completed" /> <effectiveTime value="223571815242" /> <value unit="" xsi:type="PQ" value="=" /> <interpretationCode codeSystem= "local" code="*" /> <referenceRange> <observationRange> <text>NRG</text> </observationRange> </ referenceRange> </observation> </component> </organizer> </entry > <entry> <organizer moodCode="EVN" classCode="BATTERY"> <templateId root="06.27.840.1.601803.10.20.22.4.1" /> <id nullFlavor="NA" /> <code codeSystem="local" code="31730-3" displayName="Complete blood count (CBC) with automated white blood cell (WBC) differential" /> <statusCode code= "completed" /> <component> <observation moodCode="EVN" classCode= "OBS"> <templateId root="2.16.840.1.576005.10.20.22.4.2" /> < id nullFlavor="NA" /> <code codeSystem="local" code="6690-2" displayName="Blood leukocytes automated count (number/volume)" /> < statusCode code="completed" /> <effectiveTime value="539086890410" /> <value unit="10*3/uL" xsi:type="PQ" value="18.7" /> < interpretationCode codeSystem="local" code="" /> <referenceRange> <observationRange> <text>4.3-11.0</text> </ observationRange> </referenceRange> </observation> </ component> <component> <observation moodCode="EVN" classCode="OBS"> <templateId root="216.840.1.945819.10..22.4.2" /> <id nullFlavor="NA" /> <code codeSystem="local" code="789-8" displayName= "Blood erythrocytes automated count (number/volume)" /> <statusCode code="completed" /> <effectiveTime value="572634111221" /> < value unit="10*6/uL" xsi:type="PQ" value="4.35" /> <referenceRange> <observationRange> <text>4.35-5.85</text> </ observationRange> </referenceRange> </observation> </ component> <component> <observation moodCode="EVN" classCode="OBS"> <templateId root="2.16.840.1.242125.10.20.22.4.2" /> <id nullFlavor="NA" /> <code codeSystem="local" code="87733-9" displayName= "Venous blood hemoglobin measurement (mass/volume)" /> <statusCode code ="completed" /> <effectiveTime value="627541355008" /> <value unit="g/dL" xsi:type="PQ" value="10.7" /> <interpretationCode codeSystem="local" code="" /> <referenceRange> < observationRange> <text>11.5-16.0</text> </ observationRange> </referenceRange> </observation> </ component> <component> <observation moodCode="EVN" classCode="OBS"> <templateId root="2.16.840.1.757489.10.20.22.4.2" /> <id nullFlavor="NA" /> <code codeSystem="local" code="78040-3" displayName= "Blood hematocrit (volume fraction)" /> <statusCode code="completed" / > <effectiveTime value="593083458124" /> <value unit="%" xsi:type="PQ" value="33" /> <interpretationCode codeSystem="local" code ="" /> <referenceRange> <observationRange> < text>35-52</text> </observationRange> </referenceRange> </observation> </component> <component> <observation moodCode="EVN" classCode="OBS"> <templateId root= "2.16.840.1.727835.10.20.22.4.2" /> <id nullFlavor="NA" /> < code codeSystem="local" code="787-2" displayName="Automated erythrocyte mean corpuscular volume" /> <statusCode code="completed" /> < effectiveTime value="654055529793" /> <value unit="[foz_us]" xsi:type= "PQ" value="75" /> <interpretationCode codeSystem="local" code="" /> <referenceRange> <observationRange> <text>80- 99</text> </observationRange> </referenceRange> </ observation> </component> <component> <observation moodCode= "EVN" classCode="OBS"> <templateId root="2.16.840.1.166103.10.20.22.4.2 " /> <id nullFlavor="NA" /> <code codeSystem="local" code="785 -6" displayName="Automated erythrocyte mean corpuscular hemoglobin (mass per erythrocyte)" /> <statusCode code="completed" /> < effectiveTime value="999396454937" /> <value unit="pg" xsi:type="PQ" value="25" /> <referenceRange> <observationRange> <text>25-34</text> </observationRange> </referenceRange > </observation> </component> <component> <observation moodCode="EVN" classCode="OBS"> <templateId root= "216.840.1.981368.10..22.4.2" /> <id nullFlavor="NA" /> < code codeSystem="local" code="786-4" displayName="Automated erythrocyte mean corpuscular hemoglobin concentration measurement (mass/volume)" /> < statusCode code="completed" /> <effectiveTime value="090044630469" /> <value unit="g/dL" xsi:type="PQ" value="33" /> <referenceRange > <observationRange> <text>32-36</text> </ observationRange> </referenceRange> </observation> </ component> <component> <observation moodCode="EVN" classCode="OBS"> <templateId root="216.840.1.281544.10.20.22.4.2" /> <id nullFlavor="NA" /> <code codeSystem="local" code="788-0" displayName= "Automated erythrocyte distribution width ratio" /> <statusCode code= "completed" /> <effectiveTime value="133209203591" /> <value unit="%" xsi:type="PQ" value="21.0" /> <interpretationCode codeSystem="local" code="" /> <referenceRange> < observationRange> <text>10.0-14.5</text> </ observationRange> </referenceRange> </observation> </ component> <component> <observation moodCode="EVN" classCode="OBS"> <templateId root="2.16.840.1.505908.10..4.2" /> <id nullFlavor="NA" /> <code codeSystem="local" code="777-3" displayName= "Automated blood platelet count (count/volume)" /> <statusCode code= "completed" /> <effectiveTime value="438576979206" /> <value unit="10*3/uL" xsi:type="PQ" value="348" /> <referenceRange> <observationRange> <text>130-400</text> </ observationRange> </referenceRange> </observation> </ component> <component> <observation moodCode="EVN" classCode="OBS"> <templateId root="2.16.840.1.920327.10..4.2" /> <id nullFlavor="NA" /> <code codeSystem="local" code="81444-9" displayName= "Automated blood platelet mean volume measurement" /> <statusCode code= "completed" /> <effectiveTime value="272556126216" /> <value unit="[foz_us]" xsi:type="PQ" value="11.0" /> <interpretationCode codeSystem="local" code="" /> <referenceRange> < observationRange> <text>7.4-10.4</text> </ observationRange> </referenceRange> </observation> </ component> <component> <observation moodCode="EVN" classCode="OBS"> <templateId root="2.16.840.1.356898.10.20.22.4.2" /> <id nullFlavor="NA" /> <code codeSystem="local" code="770-8" displayName= "Automated blood neutrophils/100 leukocytes" /> <statusCode code= "completed" /> <effectiveTime value="291677610140" /> <value unit="%" xsi:type="PQ" value="86" /> <interpretationCode codeSystem ="local" code="" /> <referenceRange> <observationRange> <text>42-75</text> </observationRange> </ referenceRange> </observation> </component> <component> <observation moodCode="EVN" classCode="OBS"> <templateId root= "2.16.840.1.977205.10.20.22.4.2" /> <id nullFlavor="NA" /> < code codeSystem="local" code="736-9" displayName="Automated blood lymphocytes/ 100 leukocytes" /> <statusCode code="completed" /> < effectiveTime value="197480695611" /> <value unit="%" xsi:type="PQ " value="6" /> <interpretationCode codeSystem="local" code="" /> <referenceRange> <observationRange> <text>12-44</ text> </observationRange> </referenceRange> </ observation> </component> <component> <observation moodCode= "EVN" classCode="OBS"> <templateId root="2.16.840.1.719813.10.20.22.4.2 " /> <id nullFlavor="NA" /> <code codeSystem="local" code= "69912-0" displayName="Blood monocytes/100 leukocytes" /> <statusCode code="completed" /> <effectiveTime value="354376653215" /> < value unit="%" xsi:type="PQ" value="8" /> <referenceRange> <observationRange> <text>0-12</text> </ observationRange> </referenceRange> </observation> </ component> <component> <observation moodCode="EVN" classCode="OBS"> <templateId root="2.16.840.1.818781.10.20.22.4.2" /> <id nullFlavor="NA" /> <code codeSystem="local" code="713-8" displayName= "Automated blood eosinophils/100 leukocytes" /> <statusCode code= "completed" /> <effectiveTime value="688163202397" /> <value unit="%" xsi:type="PQ" value="0" /> <referenceRange> < observationRange> <text>0-10</text> </observationRange> </referenceRange> </observation> </component> < component> <observation moodCode="EVN" classCode="OBS"> < templateId root="2.16.840.1.528221.10.20.22.4.2" /> <id nullFlavor="NA " /> <code codeSystem="local" code="706-2" displayName="Automated blood basophils/100 leukocytes" /> <statusCode code="completed" /> <effectiveTime value="085361119318" /> <value unit="%" xsi: type="PQ" value="0" /> <referenceRange> <observationRange> <text>0-10</text> </observationRange> </ referenceRange> </observation> </component> <component> <observation moodCode="EVN" classCode="OBS"> <templateId root= "2.16.840.1.249619.10.20.22.4.2" /> <id nullFlavor="NA" /> < code codeSystem="local" code="751-8" displayName="Blood neutrophils automated count (number/volume)" /> <statusCode code="completed" /> < effectiveTime value="583385844916" /> <value unit="10*3" xsi:type="PQ" value="16.0" /> <interpretationCode codeSystem="local" code="" /> <referenceRange> <observationRange> <text>1.8-7.8 </text> </observationRange> </referenceRange> </ observation> </component> <component> <observation moodCode= "EVN" classCode="OBS"> <templateId root="216.840.1.050392.102022.4.2 " /> <id nullFlavor="NA" /> <code codeSystem="local" code="731 -0" displayName="Blood lymphocytes automated count (number/volume)" /> <statusCode code="completed" /> <effectiveTime value="114345734032" /> <value unit="10*3" xsi:type="PQ" value="1.2" /> < referenceRange> <observationRange> <text>1.0-4.0</text> </observationRange> </referenceRange> </observation > </component> <component> <observation moodCode="EVN" classCode="OBS"> <templateId root="2.16.840.1.445524.10.20.22.4.2" /> <id nullFlavor="NA" /> <code codeSystem="local" code="742-7" displayName="Blood monocytes automated count (number/volume)" /> < statusCode code="completed" /> <effectiveTime value="940745851118" /> <value unit="10*3" xsi:type="PQ" value="1.5" /> < interpretationCode codeSystem="local" code="" /> <referenceRange> <observationRange> <text>0.0-1.0</text> </ observationRange> </referenceRange> </observation> </ component> <component> <observation moodCode="EVN" classCode="OBS"> <templateId root="2.16.840.1.151418.10.20.22.4.2" /> <id nullFlavor="NA" /> <code codeSystem="local" code="711-2" displayName= "Automated eosinophil count" /> <statusCode code="completed" /> <effectiveTime value="253736316688" /> <value unit="10*3/uL" xsi: type="PQ" value="0.0" /> <referenceRange> <observationRange > <text>0.0-0.3</text> </observationRange> </ referenceRange> </observation> </component> <component> <observation moodCode="EVN" classCode="OBS"> <templateId root= "2.16.840.1.149806.10.20.22.4.2" /> <id nullFlavor="NA" /> < code codeSystem="local" code="704-7" displayName="Automated blood basophil count (count/volume)" /> <statusCode code="completed" /> < effectiveTime value="878531026227" /> <value unit="10*3/uL" xsi:type= "PQ" value="0.0" /> <referenceRange> <observationRange> <text>0.0-0.1</text> </observationRange> </ referenceRange> </observation> </component> </organizer> </entry > <entry> <organizer moodCode="EVN" classCode="BATTERY"> <templateId root="06.27.840.1.129726.10..22.4.1" /> <id nullFlavor="NA" /> <code codeSystem="local" code="57460-8" displayName="Blood lactic acid measurement ( moles/volume)" /> <statusCode code="completed" /> <component> < observation moodCode="EVN" classCode="OBS"> <templateId root= "840.1.351040.10..4.2" /> <id nullFlavor="NA" /> < code codeSystem="local" code="68819-0" displayName="Blood lactic acid measurement (moles/volume)" /> <statusCode code="completed" /> <effectiveTime value="676018235990" /> <value unit="mmol/L" xsi:type= "PQ" value="2.13" /> <interpretationCode codeSystem="local" code="" / > <referenceRange> <observationRange> <text> 0.50-2.00</text> </observationRange> </referenceRange> </observation> </component> </organizer> </entry> <entry> < organizer moodCode="EVN" classCode="BATTERY"> <templateId root= "840.1.762566...4.1" /> <id nullFlavor="NA" /> <code codeSystem="local" code="600-7" displayName="Bacterial blood culture" /> < statusCode code="completed" /> <component> <observation moodCode= "EVN" classCode="OBS"> <templateId root="06.27.840.1.450697.10..22.4.2 " /> <id nullFlavor="NA" /> <code codeSystem="local" code="600 -7" displayName="Bacterial blood culture" /> <statusCode code= "completed" /> <effectiveTime value="237256098106" /> <value unit="" xsi:type="PQ" value="NG" /> <referenceRange> < observationRange> <text>NRG</text> </observationRange> </referenceRange> </observation> </component> </ organizer> </entry> <entry> <organizer moodCode="EVN" classCode="BATTERY"> <templateId root="2.16.840.1.189273.10.20.22.4.1" /> <id nullFlavor= "NA" /> <code codeSystem="local" code="600-7" displayName="Bacterial blood culture" /> <statusCode code="completed" /> <component> < observation moodCode="EVN" classCode="OBS"> <templateId root= "2.16.840.1.005932.10.20.22.4.2" /> <id nullFlavor="NA" /> < code codeSystem="local" code="600-7" displayName="Bacterial blood culture" /> <statusCode code="completed" /> <effectiveTime value= "169471419101" /> <value unit="" xsi:type="PQ" value="NG" /> < referenceRange> <observationRange> <text>NRG</text> </observationRange> </referenceRange> </observation> </component> </organizer> </entry> <entry> <organizer moodCode="EVN" classCode="BATTERY"> <templateId root="2.16.840.1.771975.10.20.22.4.1" /> <id nullFlavor="NA" /> <code codeSystem="local" code="22033-7" displayName="Influenza virus A and B antigen detection" /> <statusCode code ="completed" /> <component> <observation moodCode="EVN" classCode= "OBS"> <templateId root="2.16.840.1.129774.10.20.22.4.2" /> < id nullFlavor="NA" /> <code codeSystem="local" code="FLURESULT" displayName="FLU RESULT" /> <statusCode code="completed" /> < effectiveTime value="497425435539" /> <value unit="" xsi:type="PQ" value="NEGATIVE FOR INFLUENZA A AND B ANTIGENS BY IA" /> < referenceRange> <observationRange> <text>NRG</text> </observationRange> </referenceRange> </observation> </component> </organizer> </entry> <entry> <organizer moodCode="EVN" classCode="BATTERY"> <templateId root="2.16.840.1.708998.10.20.22.4.1" /> <id nullFlavor="NA" /> <code codeSystem="local" code="2524-7" displayName="Serum or plasma lactate measurement (moles/volume)" /> < statusCode code="completed" /> <component> <observation moodCode= "EVN" classCode="OBS"> <templateId root="2.16.840.1.877040.10.20.22.4.2 " /> <id nullFlavor="NA" /> <code codeSystem="local" code= "2524-7" displayName="Serum or plasma lactate measurement (moles/volume)" /> <statusCode code="completed" /> <effectiveTime value= "194448853198" /> <value unit="mmol/L" xsi:type="PQ" value="0.83" /> <referenceRange> <observationRange> <text>0.50- 2.00</text> </observationRange> </referenceRange> </ observation> </component> </organizer> </entry> <entry> <organizer moodCode="EVN" classCode="BATTERY"> <templateId root= "2.16.840.1.984918.10.20.22.4.1" /> <id nullFlavor="NA" /> <code codeSystem="local" code="34459-3" displayName="Complete blood count (CBC) with automated white blood cell (WBC) differential" /> <statusCode code= "completed" /> <component> <observation moodCode="EVN" classCode= "OBS"> <templateId root="2.16.840.1.307016.10.20.22.4.2" /> < id nullFlavor="NA" /> <code codeSystem="local" code="6690-2" displayName="Blood leukocytes automated count (number/volume)" /> < statusCode code="completed" /> <effectiveTime value="923931843801" /> <value unit="10*3/uL" xsi:type="PQ" value="12.7" /> < interpretationCode codeSystem="local" code="" /> <referenceRange> <observationRange> <text>4.3-11.0</text> </ observationRange> </referenceRange> </observation> </ component> <component> <observation moodCode="EVN" classCode="OBS"> <templateId root="2.16.840.1.950063.10..22.4.2" /> <id nullFlavor="NA" /> <code codeSystem="local" code="789-8" displayName= "Blood erythrocytes automated count (number/volume)" /> <statusCode code="completed" /> <effectiveTime value="731845917139" /> < value unit="10*6/uL" xsi:type="PQ" value="3.41" /> <interpretationCode codeSystem="local" code="" /> <referenceRange> < observationRange> <text>4.35-5.85</text> </ observationRange> </referenceRange> </observation> </ component> <component> <observation moodCode="EVN" classCode="OBS"> <templateId root="216.840.1.196130.10.20.22.4.2" /> <id nullFlavor="NA" /> <code codeSystem="local" code="04717-3" displayName= "Venous blood hemoglobin measurement (mass/volume)" /> <statusCode code ="completed" /> <effectiveTime value="780137159191" /> <value unit="g/dL" xsi:type="PQ" value="8.3" /> <interpretationCode codeSystem ="local" code="" /> <referenceRange> <observationRange> <text>11.5-16.0</text> </observationRange> </ referenceRange> </observation> </component> <component> <observation moodCode="EVN" classCode="OBS"> <templateId root= "216.840.1.788639.10.20.22.4.2" /> <id nullFlavor="NA" /> < code codeSystem="local" code="92658-4" displayName="Blood hematocrit (volume fraction)" /> <statusCode code="completed" /> <effectiveTime value="750843363270" /> <value unit="%" xsi:type="PQ" value="26" / > <interpretationCode codeSystem="local" code="" /> < referenceRange> <observationRange> <text>35-52</text> </observationRange> </referenceRange> </observation> </component> <component> <observation moodCode="EVN" classCode= "OBS"> <templateId root="216.840.1.557171.10.20.22.4.2" /> < id nullFlavor="NA" /> <code codeSystem="local" code="787-2" displayName ="Automated erythrocyte mean corpuscular volume" /> <statusCode code= "completed" /> <effectiveTime value="561222191399" /> <value unit="[foz_us]" xsi:type="PQ" value="77" /> <interpretationCode codeSystem="local" code="" /> <referenceRange> < observationRange> <text>80-99</text> </observationRange > </referenceRange> </observation> </component> < component> <observation moodCode="EVN" classCode="OBS"> < templateId root="2.16.840.1.129898.10..22.4.2" /> <id nullFlavor="NA " /> <code codeSystem="local" code="785-6" displayName="Automated erythrocyte mean corpuscular hemoglobin (mass per erythrocyte)" /> < statusCode code="completed" /> <effectiveTime value="814211958882" /> <value unit="pg" xsi:type="PQ" value="24" /> < interpretationCode codeSystem="local" code="" /> <referenceRange> <observationRange> <text>25-34</text> </ observationRange> </referenceRange> </observation> </ component> <component> <observation moodCode="EVN" classCode="OBS"> <templateId root="2.16.840.1.497721.10..22.4.2" /> <id nullFlavor="NA" /> <code codeSystem="local" code="786-4" displayName= "Automated erythrocyte mean corpuscular hemoglobin concentration measurement ( mass/volume)" /> <statusCode code="completed" /> < effectiveTime value="008512821361" /> <value unit="g/dL" xsi:type="PQ" value="31" /> <interpretationCode codeSystem="local" code="" /> <referenceRange> <observationRange> <text>32-36</ text> </observationRange> </referenceRange> </ observation> </component> <component> <observation moodCode= "EVN" classCode="OBS"> <templateId root="2.16.840.1.595562.10.20.22.4.2 " /> <id nullFlavor="NA" /> <code codeSystem="local" code="788 -0" displayName="Automated erythrocyte distribution width ratio" /> < statusCode code="completed" /> <effectiveTime value="497371121895" /> <value unit="%" xsi:type="PQ" value="19.9" /> < interpretationCode codeSystem="local" code="" /> <referenceRange> <observationRange> <text>10.0-14.5</text> </ observationRange> </referenceRange> </observation> </ component> <component> <observation moodCode="EVN" classCode="OBS"> <templateId root="216.840.1.295769.10..22.4.2" /> <id nullFlavor="NA" /> <code codeSystem="local" code="777-3" displayName= "Automated blood platelet count (count/volume)" /> <statusCode code= "completed" /> <effectiveTime value="439306830388" /> <value unit="10*3/uL" xsi:type="PQ" value="222" /> <referenceRange> <observationRange> <text>130-400</text> </ observationRange> </referenceRange> </observation> </ component> <component> <observation moodCode="EVN" classCode="OBS"> <templateId root="2.16.840.1.520948.10.20.22.4.2" /> <id nullFlavor="NA" /> <code codeSystem="local" code="53217-6" displayName= "Automated blood platelet mean volume measurement" /> <statusCode code= "completed" /> <effectiveTime value="402746993351" /> <value unit="[foz_us]" xsi:type="PQ" value="11.0" /> <interpretationCode codeSystem="local" code="" /> <referenceRange> < observationRange> <text>7.4-10.4</text> </ observationRange> </referenceRange> </observation> </ component> <component> <observation moodCode="EVN" classCode="OBS"> <templateId root="2.16.840.1.722844.10.20.22.4.2" /> <id nullFlavor="NA" /> <code codeSystem="local" code="770-8" displayName= "Automated blood neutrophils/100 leukocytes" /> <statusCode code= "completed" /> <effectiveTime value="459803921382" /> <value unit="%" xsi:type="PQ" value="87" /> <interpretationCode codeSystem ="local" code="" /> <referenceRange> <observationRange> <text>42-75</text> </observationRange> </ referenceRange> </observation> </component> <component> <observation moodCode="EVN" classCode="OBS"> <templateId root= "2.16.840.1.697529.10.20.22.4.2" /> <id nullFlavor="NA" /> < code codeSystem="local" code="736-9" displayName="Automated blood lymphocytes/ 100 leukocytes" /> <statusCode code="completed" /> < effectiveTime value="297514448837" /> <value unit="%" xsi:type="PQ " value="5" /> <interpretationCode codeSystem="local" code="" /> <referenceRange> <observationRange> <text>12-44</ text> </observationRange> </referenceRange> </ observation> </component> <component> <observation moodCode= "EVN" classCode="OBS"> <templateId root="2.16.840.1.296659.10.20.22.4.2 " /> <id nullFlavor="NA" /> <code codeSystem="local" code= "78650-6" displayName="Blood monocytes/100 leukocytes" /> <statusCode code="completed" /> <effectiveTime value="296788498463" /> < value unit="%" xsi:type="PQ" value="7" /> <referenceRange> <observationRange> <text>0-12</text> </ observationRange> </referenceRange> </observation> </ component> <component> <observation moodCode="EVN" classCode="OBS"> <templateId root="216.840.1.037467.10..22.4.2" /> <id nullFlavor="NA" /> <code codeSystem="local" code="713-8" displayName= "Automated blood eosinophils/100 leukocytes" /> <statusCode code= "completed" /> <effectiveTime value="328029436540" /> <value unit="%" xsi:type="PQ" value="0" /> <referenceRange> < observationRange> <text>0-10</text> </observationRange> </referenceRange> </observation> </component> < component> <observation moodCode="EVN" classCode="OBS"> < templateId root="2.16.840.1.141752.10.20.22.4.2" /> <id nullFlavor="NA " /> <code codeSystem="local" code="706-2" displayName="Automated blood basophils/100 leukocytes" /> <statusCode code="completed" /> <effectiveTime value="" /> <value unit="%" xsi: type="PQ" value="0" /> <referenceRange> <observationRange> <text>0-10</text> </observationRange> </ referenceRange> </observation> </component> <component> <observation moodCode="EVN" classCode="OBS"> <templateId root= "2.16.840.1.170607.10..22.4.2" /> <id nullFlavor="NA" /> < code codeSystem="local" code="751-8" displayName="Blood neutrophils automated count (number/volume)" /> <statusCode code="completed" /> < effectiveTime value="" /> <value unit="10*3" xsi:type="PQ" value="11.1" /> <interpretationCode codeSystem="local" code="" /> <referenceRange> <observationRange> <text>1.8-7.8 </text> </observationRange> </referenceRange> </ observation> </component> <component> <observation moodCode= "EVN" classCode="OBS"> <templateId root="2.16.840.1.867257.10..22.4.2 " /> <id nullFlavor="NA" /> <code codeSystem="local" code="731 -0" displayName="Blood lymphocytes automated count (number/volume)" /> <statusCode code="completed" /> <effectiveTime value="784881771827" /> <value unit="10*3" xsi:type="PQ" value="0.7" /> < interpretationCode codeSystem="local" code="" /> <referenceRange> <observationRange> <text>1.0-4.0</text> </ observationRange> </referenceRange> </observation> </ component> <component> <observation moodCode="EVN" classCode="OBS"> <templateId root="2.16.840.1.264862.10.22.4.2" /> <id nullFlavor="NA" /> <code codeSystem="local" code="742-7" displayName= "Blood monocytes automated count (number/volume)" /> <statusCode code= "completed" /> <effectiveTime value="085052634657" /> <value unit="10*3" xsi:type="PQ" value="0.9" /> <referenceRange> < observationRange> <text>0.0-1.0</text> </ observationRange> </referenceRange> </observation> </ component> <component> <observation moodCode="EVN" classCode="OBS"> <templateId root="216.840.1.397950.02.28.22.4.2" /> <id nullFlavor="NA" /> <code codeSystem="local" code="711-2" displayName= "Automated eosinophil count" /> <statusCode code="completed" /> <effectiveTime value="607704984542" /> <value unit="10*3/uL" xsi: type="PQ" value="0.0" /> <referenceRange> <observationRange > <text>0.0-0.3</text> </observationRange> </ referenceRange> </observation> </component> <component> <observation moodCode="EVN" classCode="OBS"> <templateId root= "2.16.840.1.776754.10..4.2" /> <id nullFlavor="NA" /> < code codeSystem="local" code="704-7" displayName="Automated blood basophil count (count/volume)" /> <statusCode code="completed" /> < effectiveTime value="236756075126" /> <value unit="10*3/uL" xsi:type= "PQ" value="0.0" /> <referenceRange> <observationRange> <text>0.0-0.1</text> </observationRange> </ referenceRange> </observation> </component> </organizer> </entry > <entry> <organizer moodCode="EVN" classCode="BATTERY"> <templateId root="2.16.840.1.447672.10.20.22.4.1" /> <id nullFlavor="NA" /> <code codeSystem="local" code="50290-5" displayName="Comprehensive metabolic panel" / > <statusCode code="completed" /> <component> <observation moodCode="EVN" classCode="OBS"> <templateId root= "2.16.840.1.178837.10..22.4.2" /> <id nullFlavor="NA" /> < code codeSystem="local" code="2951-2" displayName="Serum or plasma sodium measurement (moles/volume)" /> <statusCode code="completed" /> <effectiveTime value="899298659967" /> <value unit="mmol/L" xsi:type= "PQ" value="137" /> <referenceRange> <observationRange> <text>135-145</text> </observationRange> </ referenceRange> </observation> </component> <component> <observation moodCode="EVN" classCode="OBS"> <templateId root= "2.16.840.1.320915.10..22.4.2" /> <id nullFlavor="NA" /> < code codeSystem="local" code="2823-3" displayName="Serum or plasma potassium measurement (moles/volume)" /> <statusCode code="completed" /> <effectiveTime value="065855199681" /> <value unit="mmol/L" xsi:type= "PQ" value="2.9" /> <interpretationCode codeSystem="local" code="" / > <referenceRange> <observationRange> <text>3.6 -5.0</text> </observationRange> </referenceRange> </ observation> </component> <component> <observation moodCode= "EVN" classCode="OBS"> <templateId root="2.16.840.1.809874.10.20.22.4.2 " /> <id nullFlavor="NA" /> <code codeSystem="local" code= "" displayName="Serum or plasma chloride measurement (moles/volume)" /> <statusCode code="completed" /> <effectiveTime value= "496605958774" /> <value unit="mmol/L" xsi:type="PQ" value="113" /> <interpretationCode codeSystem="local" code="" /> < referenceRange> <observationRange> <text>98-107</text> </observationRange> </referenceRange> </observation> </component> <component> <observation moodCode="EVN" classCode ="OBS"> <templateId root="2.16.840.1.131005.10.20.22.4.2" /> < id nullFlavor="NA" /> <code codeSystem="local" code="2028-01" displayName="Carbon dioxide" /> <statusCode code="completed" /> <effectiveTime value="154649855580" /> <value unit="mmol/L" xsi:type ="PQ" value="18" /> <interpretationCode codeSystem="local" code="" / > <referenceRange> <observationRange> <text>21- 32</text> </observationRange> </referenceRange> </ observation> </component> <component> <observation moodCode= "EVN" classCode="OBS"> <templateId root="2.16.840.1.516551.10.20.22.4.2 " /> <id nullFlavor="NA" /> <code codeSystem="local" code= "86300-9" displayName="Serum or plasma anion gap determination (moles/volume)" / > <statusCode code="completed" /> <effectiveTime value= "446796753532" /> <value unit="mmol/L" xsi:type="PQ" value="6" /> <referenceRange> <observationRange> <text>5-14</ text> </observationRange> </referenceRange> </ observation> </component> <component> <observation moodCode= "EVN" classCode="OBS"> <templateId root="2.16.840.1.213054.10..22.4.2 " /> <id nullFlavor="NA" /> <code codeSystem="local" code= "3094-0" displayName="Serum or plasma urea nitrogen measurement (mass/volume)" / > <statusCode code="completed" /> <effectiveTime value= "997200063100" /> <value unit="mg/dL" xsi:type="PQ" value="12" /> <referenceRange> <observationRange> <text>7-18</ text> </observationRange> </referenceRange> </ observation> </component> <component> <observation moodCode= "EVN" classCode="OBS"> <templateId root="2.16.840.1.639944.10..22.4.2 " /> <id nullFlavor="NA" /> <code codeSystem="local" code= "2160-0" displayName="Serum or plasma creatinine measurement (mass/volume)" /> <statusCode code="completed" /> <effectiveTime value= "488067122606" /> <value unit="mg/dL" xsi:type="PQ" value="0.68" /> <referenceRange> <observationRange> <text>0.60- 1.30</text> </observationRange> </referenceRange> </ observation> </component> <component> <observation moodCode= "EVN" classCode="OBS"> <templateId root="2.16.840.1.028476.10.20.22.4.2 " /> <id nullFlavor="NA" /> <code codeSystem="local" code= "3097-3" displayName="Serum or plasma urea nitrogen/creatinine mass ratio" /> <statusCode code="completed" /> <effectiveTime value= "770466993077" /> <value unit="" xsi:type="PQ" value="18" /> < referenceRange> <observationRange> <text>NRG</text> </observationRange> </referenceRange> </observation> </component> <component> <observation moodCode="EVN" classCode= "OBS"> <templateId root="216.840.1.001099.10..22.4.2" /> < id nullFlavor="NA" /> <code codeSystem="local" code="58814-2" displayName="Serum or plasma creatinine measurement with calculation of estimated glomerular filtration rate" /> <statusCode code="completed" / > <effectiveTime value="875573906732" /> <value unit="" xsi: type="PQ" value=">" /> <referenceRange> <observationRange > <text>NRG</text> </observationRange> </ referenceRange> </observation> </component> <component> <observation moodCode="EVN" classCode="OBS"> <templateId root= "2.16.840.1.297242.10.20.22.4.2" /> <id nullFlavor="NA" /> < code codeSystem="local" code="2345-7" displayName="Serum or plasma glucose measurement (mass/volume)" /> <statusCode code="completed" /> <effectiveTime value="648509553540" /> <value unit="mg/dL" xsi:type="PQ " value="108" /> <interpretationCode codeSystem="local" code="" /> <referenceRange> <observationRange> <text>70-105 </text> </observationRange> </referenceRange> </ observation> </component> <component> <observation moodCode= "EVN" classCode="OBS"> <templateId root="2.16.840.1.174668.10..22.4.2 " /> <id nullFlavor="NA" /> <code codeSystem="local" code= "03608-1" displayName="Serum or plasma calcium measurement (mass/volume)" /> <statusCode code="completed" /> <effectiveTime value= "208893606154" /> <value unit="mg/dL" xsi:type="PQ" value="7.8" /> <interpretationCode codeSystem="local" code="" /> < referenceRange> <observationRange> <text>8.5-10.1</text > </observationRange> </referenceRange> </observation > </component> <component> <observation moodCode="EVN" classCode="OBS"> <templateId root="[id number]" /> <id nullFlavor="NA" /> <code codeSystem="local" code="1974-06" displayName="Serum or plasma total bilirubin measurement (mass/volume)" /> <statusCode code="completed" /> <effectiveTime value="[id number] " /> <value unit="mg/dL" xsi:type="PQ" value="0.5" /> < referenceRange> <observationRange> <text>0.1-1.0</text> </observationRange> </referenceRange> </observation > </component> <component> <observation moodCode="EVN" classCode="OBS"> <templateId root="2.16.840.1.241232.10.20.22.4.2" /> <id nullFlavor="NA" /> <code codeSystem="local" code="6768-6" displayName="Serum or plasma alkaline phosphatase measurement (enzymatic activity/volume)" /> <statusCode code="completed" /> < effectiveTime value="318461648774" /> <value unit="U/L" xsi:type="PQ" value="62" /> <referenceRange> <observationRange> <text>40-136</text> </observationRange> </referenceRange > </observation> </component> <component> <observation moodCode="EVN" classCode="OBS"> <templateId root= "16.840.1.251574.10..22.4.2" /> <id nullFlavor="NA" /> < code codeSystem="local" code="192" displayName="Serum or plasma aspartate aminotransferase measurement (enzymatic activity/volume)" /> < statusCode code="completed" /> <effectiveTime value="627986971220" /> <value unit="U/L" xsi:type="PQ" value="15" /> <referenceRange > <observationRange> <text>5-34</text> </ observationRange> </referenceRange> </observation> </ component> <component> <observation moodCode="EVN" classCode="OBS"> <templateId root="216.840.1.379491.10.20.22.4.2" /> <id nullFlavor="NA" /> <code codeSystem="local" code="1742" displayName= "Serum or plasma alanine aminotransferase measurement (enzymatic activity/volume )" /> <statusCode code="completed" /> <effectiveTime value= "[id number]" /> <value unit="U/L" xsi:type="PQ" value="12" /> <referenceRange> <observationRange> <text>0-55</text > </observationRange> </referenceRange> </observation > </component> <component> <observation moodCode="EVN" classCode="OBS"> <templateId root="2.16.840.1.893170.10.20.22.4.2" /> <id nullFlavor="NA" /> <code codeSystem="local" code="2885-2" displayName="Serum or plasma protein measurement (mass/volume)" /> < statusCode code="completed" /> <effectiveTime value="230333287786" /> <value unit="g/dL" xsi:type="PQ" value="4.7" /> < interpretationCode codeSystem="local" code="" /> <referenceRange> <observationRange> <text>6.4-8.2</text> </ observationRange> </referenceRange> </observation> </ component> <component> <observation moodCode="EVN" classCode="OBS"> <templateId root="2.16.840.1.991521.10.20.22.4.2" /> <id nullFlavor="NA" /> <code codeSystem="local" code="1751-7" displayName= "Serum or plasma albumin measurement (mass/volume)" /> <statusCode code ="completed" /> <effectiveTime value="719865644465" /> <value unit="g/dL" xsi:type="PQ" value="2.8" /> <interpretationCode codeSystem ="local" code="" /> <referenceRange> <observationRange> <text>3.2-4.5</text> </observationRange> </ referenceRange> </observation> </component> <component> <observation moodCode="EVN" classCode="OBS"> <templateId root= "216.840.1.157323.10.22.4.2" /> <id nullFlavor="NA" /> < code codeSystem="local" code="CALCIUMCORR" displayName="CALCIUM CORRECTED" /> <statusCode code="completed" /> <effectiveTime value= "" /> <value unit="mg/dL" xsi:type="PQ" value="8.8" /> <referenceRange> <observationRange> <text>8.5-10.1 </text> </observationRange> </referenceRange> </ observation> </component> </organizer> </entry> <entry> <organizer moodCode="EVN" classCode="BATTERY"> <templateId root= "216.840.1.434569.10..22.4.1" /> <id nullFlavor="NA" /> <code codeSystem="local" code="" displayName="Magnesium" /> <statusCode code="completed" /> <component> <observation moodCode="EVN" classCode="OBS"> <templateId root="16.840.1.829070.10..22.4.2" /> <id nullFlavor="NA" /> <code codeSystem="local" code=" " displayName="Magnesium" /> <statusCode code="completed" /> < effectiveTime value="265095514499" /> <value unit="mg/dL" xsi:type="PQ " value="1.5" /> <interpretationCode codeSystem="local" code="" /> <referenceRange> <observationRange> <text>1.8- 2.4</text> </observationRange> </referenceRange> </ observation> </component> </organizer> </entry></section> Encounters ACCT No. Visit Date/Time Discharge Status Pt. Type Provider Facility Loc./Unit Complaint [id number] 11/09/2016 16:32:00 11/09/2016 16:58:00 DIS Emergency Secrist DO, [facility].EDW [id number] 09/06/2016 12:52:00 09/06/2016 16:30:00 DIS Emergency Secrist , [facility] W.EDW [id number] 07/31/2016 16:36:00 07/31/2016 16:56:00 DIS Emergency Stiven Moralez DO [facility].EDW [id number] 01/11/2016 08:16:00 01/11/2016 08:47:00 DIS Emergency Marc TA, [facility].EDW [id number] 12/28/2015 19:32:00 12/28/2015 20:25:00 [id number] 11/28/2015 08:04:00 11/28/2015 08[facility]30:[id number] 01/04/2015 09:52:00 01/04/2015 13:04:00 DIS Emergency Santoyo [facility] W.HANNAH [id number] 01/01/2015 09:22:00 01/01/2015 12:40:00 [id number] 12/27/2014 21:37:00 12/27/2014 23:13:00 DIS Emergency Marc TA, [facility].EDW [id number] 09/17/2014 10:42:00 09/17/2014 11:10:00 DIS Stiven Perez DO [facility] [id number] 11/26/2017 08:00:00 11/26/2017 23:59:59 CLS [facility] [id number] 11/19/2017 20:04:00 11/20/2017 13:40:00 DIS Outpatient Leon Naik [facility] MED[facility]G [id number] 03/31/2017 12:56:00 03/31/2017 23:59:00 DIS Outpatient Sarai, Roxy [id number] 03/27/2017 21:26:00 03/28/2017 18:20:00 DIS Outpatient Jake Daniel [facility] MED-SURG [id number] 03/27/2017 23:46:04 Document Registration [id number] 03/19/2018 17:23:00 03/21/2018 11:50:00 DIS Inpatient JOSEPH TA, JOSE Whipple [facility] 4TH SEPSIS, UTI [id number] 01/29/2018 12:54:00 01/29/2018 19:55:00 DIS Outpatient JAYY POPE DO [facility] SDC LEFT BREAST ABSCESS [id number] 12/01/2017 17:13:00 12/01/2017 18:01:00 DIS Emergency IRISH ECKERT [facility] ER L HAND INJ [id number] 05/29/2017 02:30:00 05/29/2017 06:20:00 DIS Emergency KENDRA TA, SHIRLENE Jackson [facility] ER LEFT SIDE ABD PAIN [id number] 11/19/2017 20:04:00 Document Registration
[2018-05-24 15:26] LABS: BILIRUBIN,URINE NEGATIVE (NEGATIVE); CLARITY,URINE SLIGHTLY CLOUDY; COLOR,URINE YELLOW; GLUCOSE, URINE (UA) NEGATIVE (NEGATIVE); KETONES,URINE NEGATIVE (NEGATIVE); LEUKOCYTE ESTERASE ,URINE 3+ (NEGATIVE); NITRITE,URINE NEGATIVE (NEGATIVE); PH,URINE 6 (5-9); PROTEIN,URINE 3+ (NEGATIVE); UROBILINOGEN,URINE NORMAL (NORMAL)
[2018-05-24 15:34] LABS: BASOPHILS % (AUTO) 0 % (0-10); EOSINOPHILS % (AUTO) 0 % (0-10); HEMATOCRIT 27 % (35-52); HEMOGLOBIN 8.2 G/DL (11.5-16.0); LYMPHOCYTES # (AUTO) 1.2 X 10^3 (1.0-4.0); LYMPHOCYTES % (AUTO) 8 % (12-44); MEAN CORPUSCULAR HEMOGLOBIN 22 PG (25-34); MEAN CORPUSCULAR HGB CONC 31 G/DL (32-36); MEAN CORPUSCULAR VOLUME 71 FL (80-99); MEAN PLATELET VOLUME 10.6 FL (7.4-10.4); MONOCYTES # (AUTO) 1.7 X 10^3 (0.0-1.0); MONOCYTES % (AUTO) 12 % (0-12); NEUTROPHILS # (AUTO) 12.2 X 10^3 (1.8-7.8); NEUTROPHILS % (AUTO) 80 % (42-75); PLATELET COUNT 219 10^3/uL (130-400); RED BLOOD COUNT 3.78 10^6/uL (4.35-5.85); RED CELL DISTRIBUTION WIDTH 20.3 % (10.0-14.5); WHITE BLOOD COUNT 15.1 10^3/uL (4.3-11.0)
[2018-05-24 15:36] LABS: BACTERIA,URINE NEGATIVE /HPF; RBC,URINE 50-100 /HPF; WBC,URINE 50-100 /HPF
[2018-05-24] MEDS ORDERED: NS IV 1000 ML 1,000 ML IV ONE (15:49)
[2018-05-24 15:56] LABS: ALANINE AMINOTRANSFERASE 24 U/L (0-55); ALBUMIN 4.2 GM/DL (3.2-4.5); ALKALINE PHOSPHATASE 69 U/L (40-136); BILIRUBIN,TOTAL 0.6 MG/DL (0.1-1.0); BUN/CREATININE RATIO 24; CALCIUM 9.1 MG/DL (8.5-10.1); CARBON DIOXIDE 18 MMOL/L (21-32); CHLORIDE 104 MMOL/L (98-107); CREATININE SERUM 0.85 MG/DL (0.60-1.30); GFR ESTIMATED > 60; GLUCOSE 93 MG/DL (70-105); POTASSIUM 3.5 MMOL/L (3.6-5.0); SODIUM 136 MMOL/L (135-145); TOTAL PROTEIN 7.2 GM/DL (6.4-8.2)
[2018-05-24] MEDS ORDERED: fentaNYL INJECTION 100 MCG/2 ML AMP IVP ONE (16:00)
[2018-05-24] MEDS ORDERED: ONDANSETRON 4 MG/2 ML (SDV) Z0FRAN IVP ONE (16:00)
[2018-05-24 16:01] LABS: BAND NEUTROPHILS 0 %; EOSINOPHILS % (MANUAL) 0 %; LYMPHOCYTES % (MANUAL) 9 %; MONOCYTES % (MANUAL) 6 %; NEUTROPHILS % (MANUAL) 85 %
[2018-05-24 16:02] LABS: ANISOCYTOSIS MODERATE; BASOPHILS % (MANUAL) 0 %; HYPOCHROMASIA MARKED; MICROCYTOSIS MODERATE
[2018-05-24] MEDS ORDERED: NS 100 ML (IVPB) BAG IV ONE (16:30)
[2018-05-24] MEDS ORDERED: IOHEXOL 350 MG/ML 100 ML (OMNIPAQUE 350) VIAL IV ONE (16:30)
[2018-05-24] MEDS ORDERED: RECEIVED CONTRAST (Hold Metformin) IV SCH (16:30)
--- NOTE | 2018-05-24 17:30 | ED Abdominal Pain ---
General Chief Complaint: Abdominal/GI Problems Stated Complaint: R SIDE PAIN/FEVER/NAUSEA Nursing Triage Note: pt presents to ed with complaints of r lower abdominal pain that radiates to her r flank and back starting yesterday. pt also reports running fever yesterday. Sepsis Screen: No Definite Risk Source of Information: Patient, Old Records Exam Limitations: No Limitations (SHIRLENE GARDNER MD) History of Present Illness Date Seen by Provider: May 24, 2018 Time Seen by Provider: 15:18 Initial Comments This 32-year-old woman presents to emergency room with complaints of right flank and right lower quadrant pain that radiates to her back. Patient states she has had a fever since yesterday as well. Temperature has been up to 102. She has been nauseated without vomiting. She has felt disoriented for about one week. She is currently on her menstrual period. She reports having sepsis from a urinary tract infection in March. Chart was reviewed and she was found to have a pansensitive Escherichia coli cultured out from that visit. (SHIRLENE GARDNER MD) Allergies and Home Medications Allergies Coded Allergies: ciprofloxacin (Unverified Allergy, Unknown, 05/29/17) Home Medications Cephalexin 500 Mg Capsule, 500 MG PO BID Prescribed by: JOSE RUIZ on 03/21/18 1010 Patient Home Medication List Home Medication List Reviewed: Yes (SHIRLENE GARDNER MD) Review of Systems Review of Systems Constitutional: see HPI EENTM: No Symptoms Reported Respiratory: No Symptoms Reported Cardiovascular: No Symptoms Reported Gastrointestinal: See HPI Genitourinary: See HPI Musculoskeletal: no symptoms reported Skin: no symptoms reported Psychiatric/Neurological: No Symptoms Reported Endocrine: No Symptoms Reported Hematologic/Lymphatic: No Symptoms Reported (SHIRLENE GARDNER MD) Past Raktqqg-Jbzsmg-Bmmfem Hx Past Med/Social Hx: Reviewed and Corrections made (SHIRLENE GARDNER MD) Patient Social History Alcohol Use: Denies Use Recreational Drug Use: No 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 Smoking Status: Current Everyday Smoker Type Used: Cigarettes Recent Foreign Travel: No Contact w/Someone Who Travel: No Recent Infectious Disease Expo: No Recent Hopitalizations: Yes (SURG ON BREAST) Physical Abuse: No Sexual Abuse: No Mistreated: No Fear: No (SHIRLENE GARDNER MD) Immunizations Up To Date Tetanus Booster (TDap): Unknown PED Vaccines UTD: Yes (SHIRLENE GARDNER MD) Seasonal Allergies Seasonal Allergies: No (SHIRLENE GARDNER MD) Past Medical History Surgeries: Yes Adenoidectomy, Breast, Section, Tonsillectomy Respiratory: No Cardiac: No Neurological: No : No Last Menstrual Period: May 23, 2018 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: No 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 Genitourinary: Yes (recurrent urinary tract infection) Kidney Infection Gastrointestinal: Yes (COLLAGENOUS COLITIS) Colitis Musculoskeletal: Yes Scoliosis Endocrine: No HEENT: No Cancer: No Psychosocial: No Integumentary: No Blood Disorders: No (SHIRLENE GARDNER MD) Family Medical History Reviewed Nursing Family Hx (SHIRLENE GARDNER MD) Diabetes mellitus maternal grandfather paternal grandfather Gastroenteritis 19 FATHER paternal grandmother ( from sepsis at age 85) maternal grandfather Hypertension 19 MOTHER maternal grandmother maternal grandfather Neoplasm maternal aunt (breast cancer) Physical Exam Vital Signs Vital Signs - First Documented 05/24/18 15:29 Temp 97.9 Pulse 115 Resp 20 B/P (MAP) 109/82 (91) Pulse Ox 100 (KIAN BORRERO MD) Vital Signs Capillary Refill : Less Than 3 Seconds (SHIRLENE GARDNER MD) Height/Weight/BMI Height: 5'3.00" Weight: 115lbs. 0.0oz. 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 nml as tested, no motor/sensory deficits, alert, normal mood/affect, oriented x 3 Skin: normal color, warm/dry (SHIRLENE GARDNER MD) Focused Exam Lactate Level 05/24/18 18:08: Lactic Acid Level 1.03 (KIAN BORRERO MD) Lactic Acid Level Laboratory Tests Test 05/24/18 18:08 Lactic Acid Level 1.03 MMOL/L (0.50-2.00) (KIAN BORRERO MD) Progress/Results/Core Measures Results/Orders Lab Results Laboratory Tests Test 05/24/18 15:18 05/24/18 15:25 05/24/18 18:08 05/24/18 19:53 Range/Units Urine Color YELLOW Urine Clarity SLIGHTLY CLOUDY Urine pH 6 5-9 Urine Specific Patriot 1.010 L 1.016-1.022 Urine Protein 3+ H NEGATIVE Urine Glucose (UA) NEGATIVE NEGATIVE Urine Ketones NEGATIVE NEGATIVE Urine Nitrite NEGATIVE NEGATIVE Urine Bilirubin NEGATIVE NEGATIVE Urine Urobilinogen NORMAL NORMAL MG/DL Urine Leukocyte Esterase 3+ H NEGATIVE Urine RBC (Auto) 5+ H NEGATIVE Urine RBC 50-100 H /HPF Urine WBC 50-100 H /HPF Urine Squamous Epithelial Cells 5-10 /HPF Urine Crystals NONE /LPF Urine Bacteria NEGATIVE /HPF Urine Casts NONE /LPF Urine Mucus NEGATIVE /LPF Urine Culture Indicated YES White Blood Count 15.1 H 4.3-11.0 10^3/uL Red Blood Count 3.78 L 4.35-5.85 10^6/uL Hemoglobin 8.2 L 11.5-16.0 G/DL Hematocrit 27 L 35-52 % Mean Corpuscular Volume 71 L 80-99 FL Mean Corpuscular Hemoglobin 22 L 25-34 PG Mean Corpuscular Hemoglobin Concent 31 L 32-36 G/DL Red Cell Distribution Width 20.3 H 10.0-14.5 % Platelet Count 219 130-400 10^3/uL Mean Platelet Volume 10.6 H 7.4-10.4 FL Neutrophils (%) (Auto) 80 H 42-75 % Lymphocytes (%) (Auto) 8 L 12-44 % Monocytes (%) (Auto) 12 0-12 % Eosinophils (%) (Auto) 0 0-10 % Basophils (%) (Auto) 0 0-10 % Neutrophils # (Auto) 12.2 H 1.8-7.8 X 10^3 Lymphocytes # (Auto) 1.2 1.0-4.0 X 10^3 Monocytes # (Auto) 1.7 H 0.0-1.0 X 10^3 Eosinophils # (Auto) 0.0 0.0-0.3 10^3/uL Basophils # (Auto) 0.0 0.0-0.1 10^3/uL Neutrophils % (Manual) 85 % Lymphocytes % (Manual) 9 % Monocytes % (Manual) 6 % Eosinophils % (Manual) 0 % Basophils % (Manual) 0 % Band Neutrophils 0 % Hypochromasia MARKED Anisocytosis MODERATE Microcytosis MODERATE Sodium Level 136 135-145 MMOL/L Potassium Level 3.5 L 3.6-5.0 MMOL/L Chloride Level 104 98-107 MMOL/L Carbon Dioxide Level 18 L 21-32 MMOL/L Anion Gap 14 5-14 MMOL/L Blood Urea Nitrogen 20 H 7-18 MG/DL Creatinine 0.85 0.60-1.30 MG/DL Estimat Glomerular Filtration Rate > 60 BUN/Creatinine Ratio 24 Glucose Level 93 70-105 MG/DL Calcium Level 9.1 8.5-10.1 MG/DL Corrected Calcium 8.9 8.5-10.1 MG/DL Total Bilirubin 0.6 0.1-1.0 MG/DL Aspartate Amino Transf (AST/SGOT) 21 5-34 U/L Alanine Aminotransferase (ALT/SGPT) 24 0-55 U/L Alkaline Phosphatase 69 40-136 U/L Total Protein 7.2 6.4-8.2 GM/DL Albumin 4.2 3.2-4.5 GM/DL Serum Test, Qualitative NEGATIVE NEGATIVE Lactic Acid Level 1.03 0.50-2.00 MMOL/L (KIAN BORRERO MD) My Orders Orders - KIAN BORRERO MD Wet Prep (05/24/18 19:54) Neisseria Gonorrhea Swab (05/24/18 19:54) Chlamydia Trachomatis Swab (05/24/18 19:54) (KIAN BORRERO MD) Medications Given in ED Current Medications Medications Dose Ordered Sig/Nicole Route Start Time Stop Time Status Last Admin Dose Admin Fentanyl Citrate 50 mcg ONCE ONCE IVP 05/24/18 16:00 05/24/18 16:01 DC 05/24/18 15:57 50 MCG Iohexol 100 ml ONCE ONCE IV 05/24/18 16:30 05/24/18 16:31 DC 05/24/18 16:33 100 ML Ondansetron HCl 4 mg ONCE ONCE IVP 05/24/18 16:00 05/24/18 16:01 DC 05/24/18 15:57 4 MG Piperacillin Sod/ Tazobactam Sod 4.5 gm/Sodium Chloride 100 ml @ 200 mls/hr ONCE ONCE IV 05/24/18 18:00 05/24/18 18:29 DC 05/24/18 19:37 200 MLS/HR Sodium Chloride 100 ml ONCE ONCE IV 05/24/18 16:30 05/24/18 16:31 DC 05/24/18 16:33 80 ML Sodium Chloride 1,000 ml @ 0 mls/hr Q0M ONCE IV 05/24/18 15:49 05/24/18 15:50 DC 05/24/18 15:58 0 MLS/HR (KIAN BORRERO MD) Vital Signs/I&O 05/24/18 15:29 Temp 97.9 Pulse 115 Resp 20 B/P (MAP) 109/82 (91) Pulse Ox 100 (KIAN BORRERO MD) Blood Pressure Mean: 91 Progress Progress Note : Time: 18:19 Progress Note Patient was initially treated with IV fluids, Zofran, and fentanyl. There was concern for possible appendicitis or sepsis. CT was obtained to help differentiate etiology. There was a cystic appearance to the kidneys that may suggest pyelonephritis. There were some cystic lesions in the adnexa that could represent tubo-ovarian abscess. Ultrasound was suggested and was ordered for further evaluation. In the meantime, blood cultures and lactic acid will be drawn and antibiotic therapy will be started with Zosyn empirically. Patient is feeling better after treatment. Care of this patient is being transferred to Dr. Borrero at this time. (SHIRLENE GARDNER MD) Progress Note : Progress Note 1900: Pending final read for ultrasound. Patient is feeling a little better. Zosyn has been ordered. Pending lactic acid. Repeat exam shows patient to have right CVA and right sided abdominal pain with very mild left suprapubic pain. Monitor patient. 1999: I did discuss the case with Dr. Raza after discussion with Dr. George. Pelvic exam has been completed and patient does have right adnexal tenderness. No significant cervical motion tenderness though. Pending wet prep. Patient does have findings consistent are concerning for urinary tract infection with pyelonephritis on exam and findings of sepsis without severe sepsis or septic shock. Patient does have history of UTI with sepsis a month and a half ago. At that time it was Escherichia coli infection. After discussion with Dr. George, Zosyn would cover both tubo- ovarian abscess if this were the problem as well as the urinary tract infection. At this point it looks like hydrosalpinx without obvious abscess but should remain consideration at this point. More likely to be pyelonephritis. I did discuss the case with Dr. Raza, on-call for medicine service who accepts patient for admission. We will continue Zosyn and fluids pending urine studies and cultures. This is discussed with the patient and family who agree. Admit, inpatient status. Patient agrees with plan. (KIAN BORRERO MD) Diagnostic Imaging Diagonstic Imaging: CT Plain Films/CT/US/NM/MRI: abdomen, pelvis Comments CT abdomen and pelvis viewed by me and report reviewed. See report below: \\ NAME: PRAVEENA [facility] REC#: [id number] PT STATUS: REG ER : 1985 PHYSICIAN: SHIRLENE GARDNER MD ADMIT DATE: 05/24/18/ER Draft Date of Exam:05/24/18 CT ABDOMEN/PELVIS W WO PROCEDURE: CT abdomen and pelvis with and without contrast. TECHNIQUE: Precontrast acquisitions were acquired through the abdomen and pelvis. Multiple contiguous axial images were obtained through the abdomen and pelvis after the administration of intravenous contrast. INDICATION: Low abdominal pain radiating into the right flank which started yesterday. Running fever since yesterday. EXAMINATION: CT abdomen and pelvis with and without contrast, 05/24/2018. COMPARISON: 05/29/2017. FINDINGS: The visualized lung bases are clear. The liver is prominent and there is diffuse fatty infiltration, however, no focal lesions appreciated. Spleen is unremarkable. Adrenal glands and pancreas are normal. Gallbladder is within normal. Kidneys demonstrate multiple cystic lesions, bilaterally, most of which are too small to characterize, others are consistent with cysts. No free fluid in the pelvis. Cystic changes seen, bilaterally, within the pelvis which appear to be ovarian in nature. However, on the right there is a more tubular appearing structure which could represent a dilated fluid-filled fallopian tube. This measures up to 15 mm in size. The appendix appears separate from this area and demonstrates no surrounding inflammation. There are cystic changes in the left adnexa as well, to a lesser degree, with a slightly tubular structure on the left, measuring 8 mm. Minimal free fluid in the pelvis, most likely physiologic. There is fluid in the endometrial canal. No free air is appreciated. The osseous structures are intact. No fracture is appreciated. Findings of constipation noted. Slightly prominent bowel loops throughout the abdomen are seen and consistent with diffuse constipation. No obstructive process is appreciated. IMPRESSION: 1. Cystic changes in bilateral adnexa, right worse than left, some of which are likely in the ovaries, others appear tubular. Sonographic evaluation of the pelvis is recommended to exclude tubo-ovarian abscesses versus hydrosalpinx/pyosalpinx. Minimal free fluid in the pelvis is likely reactive. 2. Appendix is seen and is unremarkable. 3. Other incidental findings as noted above. This includes findings of mild constipation and cystic lesions. The kidneys are too small to characterize. This could be followed as clinically warranted. 4. The bowel loops, as described above, are slightly prominent throughout the small bowel loops, described above, slightly prominent, perhaps due to a mild ileus. No obstruction seen at this time. If there is persistent concern, followup recommended to exclude an early obstructive process. Dictated on workstation # [id number] Dict: 05/24/18 1651 Trans: 05/24/18 1744 [facility] [id number] Interpreted by: ALEXANDRO ANN MD (SHIRLENE GARDNER MD) Diagonstic Imaging: Ultrasound Plain Films/CT/US/NM/MRI: pelvis Comments NAME: PRAVEENA [facility] REC#: [id number] PT STATUS: REG ER : 1985 PHYSICIAN: SHIRLENE GARDNER MD ADMIT DATE: 05/24/18/ER Draft Date of Exam:05/24/18 US NON OB TRANSVAGINAL [id number] EXAM: US NON OB TRANSVAGINAL [id number] INDICATION: Fever. Leukocytosis. Flank pain. COMPARISON: CT abdomen and pelvis without and with IV contrast from earlier today. FINDINGS: The uterus is normal in echogenicity and measures 11.1 x 7.8 x 6.1 cm. Right ovary measures 4.0 x 2.9 x 2.7 cm. Left ovary is not identified. Septated fluid collection in the right adnexa with a small amount of debris appears continuous with the right ovary and the uterus. There is no free fluid in the pelvis. IMPRESSION: Fluid collection in the right adnexa corresponding to the finding on CT. This most likely represents a hydrosalpinx. However, there is a small amount of debris within this and an abscess is not excluded, particularly given the clinical history. Dictated on workstation # [id number] Dict: 05/24/181919 Trans: 05/24/181925 MIRTHA [id number] Interpreted by: CHAD HENRY MD Electronically signed by: (KIAN BORRERO MD) Departure Communication (Admissions) Time/Spoke to Admitting Phy: 20:00 (KIAN BORRERO MD) Impression Primary Impression: Pyelonephritis Additional Impressions: Sepsis Qualified Codes: A41.9 - Sepsis, unspecified organism Hydrosalpinx Disposition: ADMITTED INPATIENT Condition: Improved Admissions Decision to Admit Reason: Admit from ER (General) Decision to Admit/Date: May 24, 2018 Time/Decision to Admit Time: 20:00 (KIAN BORRERO MD) Departure-Patient Inst. Referrals: NO,LOCAL PHYSICIAN (PCP/Family) Primary Care Physician SHIRLENE GARDNER MD May 24, 2018 17:30 KIAN BORRERO MD May 24, 2018 19:31
--- NOTE | 2018-05-24 17:45 | Diagnostic Imaging Report ---
PROCEDURE: CT abdomen and pelvis with and without contrast. TECHNIQUE: Precontrast acquisitions were acquired through the abdomen and pelvis. Multiple contiguous axial images were obtained through the abdomen and pelvis after the administration of intravenous contrast. INDICATION: Low abdominal pain radiating into the right flank which started yesterday. Running fever since yesterday. EXAMINATION: CT abdomen and pelvis with and without contrast, 05/24/2018. COMPARISON: 05/29/2017. FINDINGS: The visualized lung bases are clear. The liver is prominent and there is diffuse fatty infiltration, however, no focal lesions appreciated. Spleen is unremarkable. Adrenal glands and pancreas are normal. Gallbladder is within normal. Kidneys demonstrate multiple cystic lesions, bilaterally, most of which are too small to characterize, others are consistent with cysts. No free fluid in the pelvis. Cystic changes seen, bilaterally, within the pelvis which appear to be ovarian in nature. However, on the right there is a more tubular appearing structure which could represent a dilated fluid-filled fallopian tube. This measures up to 15 mm in size. The appendix appears separate from this area and demonstrates no surrounding inflammation. There are cystic changes in the left adnexa as well, to a lesser degree, with a slightly tubular structure on the left, measuring 8 mm. Minimal free fluid in the pelvis, most likely physiologic. There is fluid in the endometrial canal. No free air is appreciated. The osseous structures are intact. No fracture is appreciated. Findings of constipation noted. Slightly prominent bowel loops throughout the abdomen are seen and consistent with diffuse constipation. No obstructive process is appreciated. IMPRESSION: 1. Cystic changes in bilateral adnexa, right worse than left, some of which are likely in the ovaries, others appear tubular. Sonographic evaluation of the pelvis is recommended to exclude tubo-ovarian abscesses versus hydrosalpinx/pyosalpinx. Minimal free fluid in the pelvis is likely reactive. 2. Appendix is seen and is unremarkable. 3. Other incidental findings as noted above. This includes findings of mild constipation and cystic lesions. The kidneys are too small to characterize. This could be followed as clinically warranted. 4. The bowel loops, as described above, are slightly prominent throughout the small bowel loops, described above, slightly prominent, perhaps due to a mild ileus. No obstruction seen at this time. If there is persistent concern, followup recommended to exclude an early obstructive process. Dictated by: Dictated on workstation # [id number]
[2018-05-24] MEDS ORDERED: PIPERACILLIN SODIUM/TAZOBACTAM 4.5 GM in NS (IVPB) 100 ML IV ONE (18:00)
--- NOTE | 2018-05-24 19:27 | Diagnostic Imaging Report ---
EXAM: US NON OB TRANSVAGINAL [id number] INDICATION: Fever. Leukocytosis. Flank pain. COMPARISON: CT abdomen and pelvis without and with IV contrast from earlier today. FINDINGS: The uterus is normal in echogenicity and measures 11.1 x 7.8 x 6.1 cm. Right ovary measures 4.0 x 2.9 x 2.7 cm. Left ovary is not identified. Septated fluid collection in the right adnexa with a small amount of debris appears continuous with the right ovary and the uterus. There is no free fluid in the pelvis. IMPRESSION: Fluid collection in the right adnexa corresponding to the finding on CT. This most likely represents a hydrosalpinx. However, there is a small amount of debris within this and an abscess is not excluded, particularly given the clinical history. Dictated by: Dictated on workstation # [id number]
--- OUTSIDE RECORDS SUMMARY | 2018-05-24 20:39 | XMS REPORT | Continuity of Care Document ---
Author Author [facility] Organization [facility] Address Unknown Phone Unavailable Allergies Active Description Code Type Severity Reaction Onset Reported/Identified Relationship to Patient Clinical Status Yes CIPRO MODERATE DERMATOLOGICAL - HIV Yes No Known Drug Allergies [id number] Drug Allergy Unknown N/A 09/22/2007 Yes ciprofloxacin ciprofloxacin Drug Allergy Unknown unknown 07/31/2016 Yes ciprofloxacin [id number] Drug Allergy Unknown N/A 05/29/2017 Medications Medication [...] Z90.89 ACQUIRED ABSENCE OF OTHER ORGANS 01/29/2018 [facility] Ot F17.210 NICOTINE DEPENDENCE, CIGARETTES, UNCOMPL 01/29/2018 [facility], JAYY D Ot N61.1 ABSCESS OF THE BREAST AND NIPPLE [facility] NICOTINE DEPENDENCE, CIGARETTES, UNCOMPL [facility] N61.1 ABSCESS OF THE BREAST [...] There is no data. <section xmlns="urn:hl7-org:v3" xmlns:xsi="http:// www.Aircuity3.org/2001/XMLSchema-instance"> <templateId root= "[id number]" /> <templateId root= "[id number]2.2.3.1" /> <code codeSystemName="LOINC" codeSystem= "[id number]" code="35774-0" displayName="Results" /> <title>Results< /title> <text> <table> <thead> [...] </td> < td> </td> </tr> <tr> <td>Urine-Specific [place]</td> <td>1.020 </td> <td>1.000-1.030</td> </tr> <tr> <td>Urine-WBC</td> <td>2-5/HPF </td> <td> </td> </tr> <tr> <td>Urobilinogen</td> <td>0.2 </td> <td>0.2-1.0</td> </tr> <tr> <th colspan="10">[facility]</th> </tr> <tr> <td>CROSSMATCH</td > <td>COMPATIBLE X 2 </td> <td /> </tr> <tr> <td>Hct</td> <td>26.9 %</td> <td>36.0-46.0</td> </tr> <tr> <td>Hgb</td> <td>7.6 g/dL</td> <td>13.0-15.0</td> </tr> <tr> <th colspan="10"> Leukoreduced Packed RBC Unit Checkout - 03/28/17 01:25</th> </tr> <tr> <td>[facility] Checkout</td> <td>Checked Out. </td> <td /> [...] </tr> <tr> <td> Surg Path</td> <td>Sent to [facility] </td> <td /> </tr> <tr> < [...] > <td>MCV</td> <td>73.4 fL</td> <td>80.0-97.0</td> </tr> <tr> <td>[place]%</td> <td>7.6 %</td> <td>0.0-12.0</td> </tr> <tr> <td>MPV</td> <td>11.1 fL</td> <td>7.4-10.0</td> </tr> <tr> <td>Julian[place]%</td> <td>60.2 %</td> <td>37.0-80.0</td> </tr> <tr> <td>Plt</td> <td>222 K/uL</td> <td>150-400</td> </tr> <tr> <td>RBC</td> <td >4.67 M/uL</td> <td>3.60-5.00</td> </tr> <tr> < td>RDW</td> <td>22.7 %</td> <td>11.6-14.8</td> </tr > <tr> <td>WBC</td> <td>7.36 K/uL</td> <td> 5.00-10.00</td> </tr> <tr> <td>[place]ian[place]</td> <td> 4.43 K/uL</td> <td>2.00-6.90</td> </tr> <tr> <td >[place]</td> <td>0.6 K/uL</td> <td>0.0-0.9</td> </tr> <tr> <td>[place]</td> <td>0.1 [...] GROWTH</td> <td>. </td> <td>NRG</td> </tr> <tr> <th colspan="10">[facility] Sensitivity Panel - 01/29/18 16:37</th> </tr> [...] 15:50</th> </tr> <tr> <td>Bacterial urine culture</td> <td> [id number] </td> <td>NRG</td> </tr> <tr> <td> COLONY COUNT</td> <td>>100,000/ML </td> <td>NRG</td> </tr> <tr> <td>FTX;REPORTABLE</td> <td> SUSCEPTIBILITY REPORTED 03-21-2018,1005 </td> <td>NRG</td> </tr > <tr> <th colspan="10">[facility] Sensitivity Panel - 03/19/18 15:50</ th> </tr> [...] <td>CALCIUM CORRECTED</td> <td>8.8 mg/dL</td> <td>8.5-10.1</td> </tr> <tr> < colspan="10"> Magnesium - 03/20/18 06:10</th> </tr> <tr> <td>Magnesium< /td> <td>1.5 mg/dL</td> <td>1.8-2.4</td> </tr> < tr> < colspan="10">Complete urinalysis with reflex to culture - 05/24 15:18</th> </tr> <tr> <td>Urine color determination</ td> <td>YELLOW </td> <td>NRG</td> </tr> <tr> <td>Urine clarity determination</td> <td>SLIGHTLY CLOUDY </td> <td>NRG</td> </tr> <tr> <td>Urine pH measurement by test strip</td> <td>6 </td> <td>5-9</td> </tr> <tr> <td>Specific gravity of urine by test strip</td> <td>1.010 </td> <td>1.016-1.022</td> </tr> <tr> <td>Urine protein assay by test strip, semi-quantitative</td> <td>3+ </td> <td>NEGATIVE</td> </tr> <tr> <td> Urine glucose detection by automated test strip</td> <td>NEGATIVE </td > <td>NEGATIVE</td> </tr> <tr> <td>Erythrocytes detection in urine sediment by light microscopy</td> <td>5+ </td> <td>NEGATIVE</td> </tr> <tr> <td>Urine ketones detection by automated test strip</td> <td>NEGATIVE </td> <td> NEGATIVE</td> </tr> <tr> <td>Urine nitrite detection by test strip</td> <td>NEGATIVE </td> <td>NEGATIVE</td> </ tr> <tr> <td>Urine total bilirubin detection by test strip</td> <td>NEGATIVE </td> <td>NEGATIVE</td> </tr> <tr > <td>Urine urobilinogen measurement by automated test strip (mass/ volume)</td> <td>NORMAL </td> <td>NORMAL</td> </tr> <tr> <td>Urine leukocyte esterase detection by dipstick</td> <td>3+ </td> <td>NEGATIVE</td> </tr> <tr> < td>Automated urine sediment erythrocyte count by microscopy (number/high power field)</td> <td> [HPF]</td> <td>NRG</td> </tr> < tr> <td>Automated urine sediment leukocyte count by microscopy (number/ high power field)</td> <td> [HPF]</td> <td>NRG</td> </ tr> <tr> <td>Bacteria detection in urine sediment by light microscopy</td> <td>NEGATIVE </td> <td>NRG</td> </tr> <tr> <td>Squamous epithelial cells detection in urine sediment by light microscopy</td> <td>5-10 </td> <td>NRG</td> </ tr> <tr> <td>Crystals detection in urine sediment by light microscopy</td> <td>NONE </td> <td>NRG</td> </tr> <tr> <td>Casts detection in urine sediment by light microscopy</td> <td>NONE </td> <td>NRG</td> </tr> <tr> <td>Mucus detection in urine sediment by light microscopy</td> <td> NEGATIVE </td> <td>NRG</td> </tr> <tr> <td> Complete urinalysis with reflex to culture</td> <td>YES </td> <td>NRG</td> </tr> <tr> <th colspan="10">Complete blood count (CBC) with automated white blood cell (WBC) differential - 05/24/18 15:25< /th> </tr> <tr> <td>Blood leukocytes automated count ( number/volume)</td> <td>15.1 10*3/uL</td> <td>4.3-11.0</td> </tr> <tr> <td>Blood erythrocytes automated count (number/ volume)</td> <td>3.78 10*6/uL</td> <td>4.35-5.85</td> < /tr> <tr> <td>Venous blood hemoglobin measurement (mass/volume)< /td> <td>8.2 g/dL</td> <td>11.5-16.0</td> </tr> <tr> <td>Blood hematocrit (volume fraction)</td> <td>27 %< /td> <td>35-52</td> </tr> <tr> <td>Automated erythrocyte mean corpuscular volume</td> <td>71 [foz_us]</td> <td>80-99</td> </tr> <tr> <td>Automated erythrocyte mean corpuscular hemoglobin (mass per erythrocyte)</td> <td>22 pg</td> <td>25-34</td> </tr> <tr> <td>Automated erythrocyte mean corpuscular hemoglobin concentration measurement (mass/volume)</td> <td>31 g/dL</td> <td>32-36</td> </tr> <tr> < td>Automated erythrocyte distribution width ratio</td> <td>20.3 %</ td> <td>10.0-14.5</td> </tr> <tr> <td>Automated blood platelet count (count/volume)</td> <td>219 10*3/uL</td> <td>130-400</td> </tr> <tr> <td>Automated blood platelet mean volume measurement</td> <td>10.6 [foz_us]</td> <td>7.4- 10.4</td> </tr> <tr> <td>Automated blood neutrophils/100 leukocytes</td> <td>80 %</td> <td>42-75</td> </tr> <tr> <td>Automated blood lymphocytes/100 leukocytes</td> <td>8 %</td> <td>12-44</td> </tr> <tr> < td>Blood monocytes/100 leukocytes</td> <td>12 %</td> <td>0 -12</td> </tr> <tr> <td>Automated blood eosinophils/100 leukocytes</td> <td>0 %</td> <td>0-10</td> </tr> <tr> <td>Automated blood basophils/100 leukocytes</td> < td>0 %</td> <td>0-10</td> </tr> <tr> <td> Blood neutrophils automated count (number/volume)</td> <td>12.2 10*3</ td> <td>1.8-7.8</td> </tr> <tr> <td>Blood lymphocytes automated count (number/volume)</td> <td>1.2 10*3</td> <td>1.0-4.0</td> </tr> <tr> <td>Blood monocytes automated count (number/volume)</td> <td>1.7 10*3</td> <td>0.0 -1.0</td> </tr> <tr> <td>Automated eosinophil count</td> <td>0.0 10*3/uL</td> <td>0.0-0.3</td> </tr> <tr > <td>Automated blood basophil count (count/volume)</td> <td> 0.0 10*3/uL</td> <td>0.0-0.1</td> </tr> <tr> < th colspan="10">Comprehensive metabolic panel - 05/24/18 15:25</th> </tr > <tr> <td>Serum or plasma sodium measurement (moles/volume)</td > <td>136 mmol/L</td> <td>135-145</td> </tr> <tr > <td>Serum or plasma potassium measurement (moles/volume)</td> <td>3.5 mmol/L</td> <td>3.6-5.0</td> </tr> <tr> <td>Serum or plasma chloride measurement (moles/volume)</td> <td> 104 mmol/L</td> <td>98-107</td> </tr> <tr> <td> Carbon dioxide</td> <td>18 mmol/L</td> <td>21-32</td> < /tr> <tr> <td>Serum or plasma anion gap determination (moles/ volume)</td> <td>14 mmol/L</td> <td>5-14</td> </tr> <tr> <td>Serum or plasma urea nitrogen measurement (mass/volume)</ td> <td>20 mg/dL</td> <td>7-18</td> </tr> <tr> <td>Serum or plasma creatinine measurement (mass/volume)</td> <td>0.85 mg/dL</td> <td>0.60-1.30</td> </tr> <tr> <td>Serum or plasma urea nitrogen/creatinine mass ratio</td> <td>24 </td> <td>NRG</td> </tr> <tr> <td>Serum or plasma creatinine measurement with calculation of estimated glomerular filtration rate</td> <td>> </td> <td>NRG</td> </tr> <tr> <td>Serum or plasma glucose measurement (mass/volume)</td > <td>93 mg/dL</td> <td>70-105</td> </tr> <tr> <td>Serum or plasma calcium measurement (mass/volume)</td> <td >9.1 mg/dL</td> <td>8.5-10.1</td> </tr> <tr> <td >Serum or plasma total bilirubin measurement (mass/volume)</td> <td> 0.6 mg/dL</td> <td>0.1-1.0</td> </tr> <tr> <td> Serum or plasma alkaline phosphatase measurement (enzymatic activity/volume)</td > <td>69 U/L</td> <td>40-136</td> </tr> <tr> <td>Serum or plasma aspartate aminotransferase measurement (enzymatic activity/volume)</td> <td>21 U/L</td> <td>5-34</td> </ tr> <tr> <td>Serum or plasma alanine aminotransferase measurement (enzymatic activity/volume)</td> <td>24 U/L</td> < td>0-55</td> </tr> <tr> <td>Serum or plasma protein measurement (mass/volume)</td> <td>7.2 g/dL</td> <td>6.4-8.2</ td> </tr> <tr> <td>Serum or plasma albumin measurement ( mass/volume)</td> <td>4.2 g/dL</td> <td>3.2-4.5</td> </ tr> <tr> <td>CALCIUM CORRECTED</td> <td>8.9 mg/dL</td> <td>8.5-10.1</td> </tr> <tr> <th colspan="10"> Blood manual differential performed detection - 05/24/18 15:25</th> </tr > <tr> <td>Blood monocytes/100 leukocytes</td> <td>6 &# 37;</td> <td>NRG</td> </tr> <tr> <td>Manual blood segmented neutrophils/100 leukocytes</td> <td>85 %</td> <td>NRG</td> </tr> <tr> <td>Blood band neutrophils/ 100 leukocytes</td> <td>0 %</td> <td>NRG</td> </tr > <tr> <td>Manual blood lymphocytes/100 leukocytes</td> <td>9 %</td> <td>NRG</td> </tr> <tr> <td> Manual eosinophils/100 leukocytes in nose</td> <td>0 %</td> <td>NRG</td> </tr> <tr> <td>Manual blood basophils/ 100 leukocytes</td> <td>0 %</td> <td>NRG</td> </tr > <tr> <td>Blood anisocytosis detection by light microscopy</td > <td>MODERATE </td> <td>NRG</td> </tr> <tr> <td>Blood hypochromia detection by light microscopy</td> <td> MARKED </td> <td>NRG</td> </tr> <tr> <td>Blood microcytes detection by light microscopy</td> <td>MODERATE </td> <td>NRG</td> </tr> <tr> <th colspan="10">Serum or plasma choriogonadotropin ( test) detection - 05/24/18 15:25</th> </tr> <tr> <td>Serum or plasma choriogonadotropin ( test) detection</td> <td>NEGATIVE </td> <td>NEGATIVE</td> </tr> <tr> <th colspan="10">Blood lactic acid measurement ( moles/volume) - 05/24/18 18:08</th> </tr> <tr> <td>Blood lactic acid measurement (moles/volume)</td> <td>1.03 mmol/L</td> <td>0.50-2.00</td> </tr> </tbody> </table> </text> <entry> <organizer moodCode="EVN" classCode="BATTERY"> <templateId root= "[id number].1" /> <id nullFlavor="NA" /> <code codeSystem="local" code="UA" displayName="URINALYSIS, ROUTINE" /> < statusCode code="completed" /> <component> <observation moodCode= "EVN" classCode="OBS"> <templateId root="16.840.1.367855.10.22.4.2 " /> <id nullFlavor="NA" /> <code codeSystem="local" code= "LEUESU" displayName="UA LEUKOCYTE ESTERASE DIPSTICK" /> <statusCode code="completed" /> <effectiveTime value="" /> < value unit="" xsi:type="PQ" value="2+" /> <interpretationCode codeSystem="local" code="*" /> <referenceRange> < observationRange> <text>NEGATIVE</text> </ observationRange> </referenceRange> </observation> </ component> <component> <observation moodCode="EVN" classCode="OBS"> <templateId root="[id number]2.4.2" /> <id nullFlavor="NA" /> <code codeSystem="local" code="NITRIU" displayName= "UA NITRITE DIPSTICK" /> <statusCode code="completed" /> < effectiveTime value="" /> <value unit="" xsi:type="PQ" value="POSITIVE" /> <interpretationCode codeSystem="local" code="*" /> <referenceRange> <observationRange> <text> NEGATIVE</text> </observationRange> </referenceRange> </observation> </component> <component> <observation moodCode ="EVN" classCode="OBS"> <templateId root= "06.27.840.1.165178...4.2" /> <id nullFlavor="NA" /> < code codeSystem="local" code="PROTEIU" displayName="UA PROTEIN DIPSTICK" /> <statusCode code="completed" /> <effectiveTime value= "" /> <value unit="" xsi:type="PQ" value="1+" /> < interpretationCode codeSystem="local" code="*" /> <referenceRange> <observationRange> <text>NEGATIVE</text> </ observationRange> </referenceRange> </observation> </ component> <component> <observation moodCode="EVN" classCode="OBS"> <templateId root="06.27.840.1.078270.1022.4.2" /> <id nullFlavor="NA" /> <code codeSystem="local" code="DGLUU" displayName= "UA GLUCOSE DIPSTICK" /> <statusCode code="completed" /> < effectiveTime value="" /> <value unit="" xsi:type="PQ" value="NEGATIVE" /> <referenceRange> <observationRange> <text>NEGATIVE</text> </observationRange> </ referenceRange> </observation> </component> <component> <observation moodCode="EVN" classCode="OBS"> <templateId root= "840.1.616046.02.28.22.4.2" /> <id nullFlavor="NA" /> < code codeSystem="local" code="KETONU" displayName="UA KETONE DIPSTICK" /> <statusCode code="completed" /> <effectiveTime value=" " /> <value unit="" xsi:type="PQ" value="NEGATIVE" /> < referenceRange> <observationRange> <text>NEGATIVE</text > </observationRange> </referenceRange> </observation > </component> <component> <observation moodCode="EVN" classCode="OBS"> <templateId root="06.27.840.1.534208..2022.4.2" /> <id nullFlavor="NA" /> <code codeSystem="local" code="UROBILU " displayName="UA UROBILINOGEN DIPSTICK" /> <statusCode code="completed " /> <effectiveTime value="" /> <value unit="" xsi :type="PQ" value="NORMAL" /> <referenceRange> < observationRange> <text>NORMAL</text> </observationRange > </referenceRange> </observation> </component> < component> <observation moodCode="EVN" classCode="OBS"> < templateId root="16.840.1.975714.02.28.22.4.2" /> <id nullFlavor="NA " /> <code codeSystem="local" code="BILU" displayName="UA BILIRUBIN DIPSTICK" /> <statusCode code="completed" /> <effectiveTime value="" /> <value unit="" xsi:type="PQ" value="NEGATIVE" / > <referenceRange> <observationRange> <text> NEGATIVE</text> </observationRange> </referenceRange> </observation> </component> <component> <observation moodCode ="EVN" classCode="OBS"> <templateId root= "16.840.1.906349.02.28..4.2" /> <id nullFlavor="NA" /> < code codeSystem="local" code="NOLVIA" displayName="UA BLOOD DIPSTICK" /> < statusCode code="completed" /> <effectiveTime value="" /> <value unit="" xsi:type="PQ" value="TRACE" /> < interpretationCode codeSystem="local" code="*" /> <referenceRange> <observationRange> <text>NEGATIVE</text> </ observationRange> </referenceRange> </observation> </ component> <component> <observation moodCode="EVN" classCode="OBS"> <templateId root="06.27.840.1.706801.02.28.22.4.2" /> <id nullFlavor="NA" /> <code codeSystem="local" code="SPGRU" displayName= "UA SPECIFIC GRAVITY" /> <statusCode code="completed" /> < effectiveTime value="363880508765" /> <value unit="" xsi:type="PQ" value="1.015" /> <referenceRange> <observationRange> <text>1.015-1.025</text> </observationRange> </ referenceRange> </observation> </component> <component> <observation moodCode="EVN" classCode="OBS"> <templateId root= "2.16.840.1.923488.02.28.22.4.2" /> <id nullFlavor="NA" /> < code codeSystem="local" code="DIETER" displayName="UR PH" /> <statusCode code="completed" /> <effectiveTime value="771704131179" /> < value unit="" xsi:type="PQ" value="6.0" /> <referenceRange> <observationRange> <text>5.0-7.0</text> </ observationRange> </referenceRange> </observation> </ component> <component> <observation moodCode="EVN" classCode="OBS"> <templateId root="2.16.840.1.460849.02.28.22.4.2" /> <id nullFlavor="NA" /> <code codeSystem="local" code="MB" displayName= "Microbiology" /> <statusCode code="completed" /> < effectiveTime value="053638372207" /> <value unit="" xsi:type="PQ" value="" /> <referenceRange> <observationRange> <text /> </observationRange> </referenceRange> </ observation> </component> </organizer> </entry> <entry> <organizer moodCode="EVN" classCode="BATTERY"> <templateId root= "06.27.840.1.453344....4.1" /> <id nullFlavor="NA" /> <code codeSystem="local" code="UAMICRO" displayName="UA MICROSCOPIC" /> < statusCode code="completed" /> <component> <observation moodCode= "EVN" classCode="OBS"> <templateId root="840.1.532892.02.28.22.4.2 " /> <id nullFlavor="NA" /> <code codeSystem="local" code= "EPIU" displayName="UA EPITHELIAL CELLS" /> <statusCode code="completed " /> <effectiveTime value="136682767653" /> <value unit="epi/ hpf" xsi:type="PQ" value="2+" /> <interpretationCode codeSystem="local " code="*" /> <referenceRange> <observationRange> <text>0 - 1+</text> </observationRange> </referenceRange > </observation> </component> <component> <observation moodCode="EVN" classCode="OBS"> <templateId root= "06.27.840.1.321981.02.28.22.4.2" /> <id nullFlavor="NA" /> < code codeSystem="local" code="RBCU" displayName="UA RBC" /> < statusCode code="completed" /> <effectiveTime value="559761196577" /> <value unit="rbc/hpf" xsi:type="PQ" value="0" /> < referenceRange> <observationRange> <text>0 - 3</text> </observationRange> </referenceRange> </observation> </component> <component> <observation moodCode="EVN" classCode= "OBS"> <templateId root="06.27.840.1.543564.02.28.22.4.2" /> < id nullFlavor="NA" /> <code codeSystem="local" code="UAVOL" displayName ="UA VOLUME FOR EXAM" /> <statusCode code="completed" /> < effectiveTime value="" /> <value unit="mL" xsi:type="PQ" value="12.0" /> <referenceRange> <observationRange> <text>(12mL STD)</text> </observationRange> </ referenceRange> </observation> </component> <component> <observation moodCode="EVN" classCode="OBS"> <templateId root= "2.16.840.1.707049.02.28.22.4.2" /> <id nullFlavor="NA" /> < code codeSystem="local" code="WBCU" displayName="UA WBC" /> < statusCode code="completed" /> <effectiveTime value="380568482333" /> <value unit="wbc/hpf" xsi:type="PQ" value="20-50" /> < interpretationCode codeSystem="local" code="*" /> <referenceRange> <observationRange> <text>0 - 5</text> </ observationRange> </referenceRange> </observation> </ component> <component> <observation moodCode="EVN" classCode="OBS"> <templateId root="216.840.1.563120.10.4.2" /> <id nullFlavor="NA" /> <code codeSystem="local" code="WBCCLUMPS" displayName="WBC CLUMPS" /> <statusCode code="completed" /> < effectiveTime value="392876586881" /> <value unit="" xsi:type="PQ" value="PRESENT" /> <interpretationCode codeSystem="local" code="*" /> <referenceRange> <observationRange> <text> NEGATIVE</text> </observationRange> </referenceRange> </observation> </component> </organizer> </entry> <entry> < organizer moodCode="EVN" classCode="BATTERY"> <templateId root= "216.840.1.869928.10..22.4.1" /> <id nullFlavor="NA" /> <code codeSystem="local" code="PREGU" displayName="UR TEST" /> < statusCode code="completed" /> <component> <observation moodCode= "EVN" classCode="OBS"> <templateId root="216.840.1.603502.10...4.2 " /> <id nullFlavor="NA" /> <code codeSystem="local" code= "PREGU" displayName="UR TEST" /> <statusCode code="completed " /> <effectiveTime value="414481515554" /> <value unit="" xsi :type="PQ" value="NEGATIVE" /> <referenceRange> < observationRange> <text>NEGATIVE</text> </ observationRange> </referenceRange> </observation> </ component> <component> <observation moodCode="EVN" classCode="OBS"> <templateId root="216.840.1.618487.10..22.4.2" /> <id nullFlavor="NA" /> <code codeSystem="local" code="MB" displayName= "Microbiology" /> <statusCode code="completed" /> < effectiveTime value="632168640284" /> <value unit="" xsi:type="PQ" value="" /> <referenceRange> <observationRange> <text /> </observationRange> </referenceRange> </ observation> </component> </organizer> </entry> <entry> <organizer moodCode="EVN" classCode="BATTERY"> <templateId root= "2.16.840.1.257814.10..22.4.1" /> <id nullFlavor="NA" /> <code codeSystem="local" code="PREGU" displayName="UR TEST" /> < statusCode code="completed" /> <component> <observation moodCode= "EVN" classCode="OBS"> <templateId root="216.840.1.718936.02.28.22.4.2 " /> <id nullFlavor="NA" /> <code codeSystem="local" code= "PREGU" displayName="UR TEST" /> <statusCode code="completed " /> <effectiveTime value="459374968213" /> <value xsi:type= "ST" value="<pre><b>UR TEST</b> NEGATIVE</pre>" /> < referenceRange> <observationRange> <text>NEGATIVE</text > </observationRange> </referenceRange> </observation > </component> <component> <observation moodCode="EVN" classCode="OBS"> <templateId root="16.840.1.495980.02.28.22.4.2" /> <id nullFlavor="NA" /> <code codeSystem="local" code="MB" displayName="Microbiology" /> <statusCode code="completed" /> <effectiveTime value="201409698036" /> <value xsi:type="ST" value="<pre ><b>UR TEST</b> NEGATIVE</pre>" /> <referenceRange> <observationRange> <text /> </observationRange> </referenceRange> </observation> </component> </organizer> </entry> <entry> <organizer moodCode="EVN" classCode="BATTERY"> < templateId root="216.840.1.410800.10..4.1" /> <id nullFlavor="NA" /> <code codeSystem="local" code="UA" displayName="URINALYSIS, ROUTINE" /> <statusCode code="completed" /> <component> <observation moodCode="EVN" classCode="OBS"> <templateId root= "[id number]..4.2" /> <id nullFlavor="NA" /> < code codeSystem="local" code="LEUESU" displayName="UA LEUKOCYTE ESTERASE DIPSTICK" /> <statusCode code="completed" /> <effectiveTime value="[id number]" /> <value unit="" xsi:type="PQ" value="TRACE" /> <referenceRange> <observationRange> <text> NEGATIVE</text> </observationRange> </referenceRange> </observation> </component> <component> <observation moodCode ="EVN" classCode="OBS"> <templateId root= "[id number]" /> <id nullFlavor="NA" /> < code codeSystem="local" code="NITRIU" displayName="UA NITRITE DIPSTICK" /> <statusCode code="completed" /> <effectiveTime value="[id number] " /> <value unit="" xsi:type="PQ" value="NEGATIVE" /> < referenceRange> <observationRange> <text>NEGATIVE</text > </observationRange> </referenceRange> </observation > </component> <component> <observation moodCode="EVN" classCode="OBS"> <templateId root="[id number]" /> <id nullFlavor="NA" /> <code codeSystem="local" code="PROTEIU " displayName="UA PROTEIN DIPSTICK" /> <statusCode code="completed" /> <effectiveTime value="[id number]" /> <value unit="" xsi: type="PQ" value="2+" /> <interpretationCode codeSystem="local" code="* " /> <referenceRange> <observationRange> <text> NEGATIVE</text> </observationRange> </referenceRange> </observation> </component> <component> <observation moodCode ="EVN" classCode="OBS"> <templateId root= "[id number].2" /> <id nullFlavor="NA" /> < code codeSystem="local" code="DGLUU" displayName="UA GLUCOSE DIPSTICK" /> <statusCode code="completed" /> <effectiveTime value="[id number] " /> <value unit="" xsi:type="PQ" value="NEGATIVE" /> < referenceRange> <observationRange> <text>NEGATIVE</text > </observationRange> </referenceRange> </observation > </component> <component> <observation moodCode="EVN" classCode="OBS"> <templateId root="[id number].2" /> <id nullFlavor="NA" /> <code codeSystem="local" code="KETONU" displayName="UA KETONE DIPSTICK" /> <statusCode code="completed" /> <effectiveTime value="[id number]" /> <value unit="" xsi:type= "PQ" value="2+" /> <interpretationCode codeSystem="local" code="*" /> <referenceRange> <observationRange> <text> NEGATIVE</text> </observationRange> </referenceRange> </observation> </component> <component> <observation moodCode ="EVN" classCode="OBS"> <templateId root= "06.27.840.1.061353.22.4.2" /> <id nullFlavor="NA" /> < code codeSystem="local" code="UROBILU" displayName="UA UROBILINOGEN DIPSTICK" / > <statusCode code="completed" /> <effectiveTime value= "633070337409" /> <value unit="" xsi:type="PQ" value="2+" /> < referenceRange> <observationRange> <text>NORMAL</text> </observationRange> </referenceRange> </observation> </component> <component> <observation moodCode="EVN" classCode ="OBS"> <templateId root="216.840.1.326316.02.28.22.4.2" /> < id nullFlavor="NA" /> <code codeSystem="local" code="BILU" displayName= "UA BILIRUBIN DIPSTICK" /> <statusCode code="completed" /> < effectiveTime value="030117976643" /> <value unit="" xsi:type="PQ" value="1+" /> <interpretationCode codeSystem="local" code="*" /> <referenceRange> <observationRange> <text>NEGATIVE</ text> </observationRange> </referenceRange> </ observation> </component> <component> <observation moodCode= "EVN" classCode="OBS"> <templateId root="2.16.840.1.662182.10..4.2 " /> <id nullFlavor="NA" /> <code codeSystem="local" code="NOLVIA " displayName="UA BLOOD DIPSTICK" /> <statusCode code="completed" /> <effectiveTime value="587163565155" /> <value unit="" xsi:type= "PQ" value="TRACE" /> <interpretationCode codeSystem="local" code="*" / > <referenceRange> <observationRange> <text> NEGATIVE</text> </observationRange> </referenceRange> </observation> </component> <component> <observation moodCode ="EVN" classCode="OBS"> <templateId root= "2.16.840.1.294780.10.4.2" /> <id nullFlavor="NA" /> < code codeSystem="local" code="SPGRU" displayName="UA SPECIFIC GRAVITY" /> <statusCode code="completed" /> <effectiveTime value="367268698206 " /> <value unit="" xsi:type="PQ" value="1.015" /> < referenceRange> <observationRange> <text>1.015-1.025</ text> </observationRange> </referenceRange> </ observation> </component> <component> <observation moodCode= "EVN" classCode="OBS"> <templateId root="216.840.1.029772.02.28.22.4.2 " /> <id nullFlavor="NA" /> <code codeSystem="local" code="DIETER " displayName="UR PH" /> <statusCode code="completed" /> < effectiveTime value="267189569116" /> <value unit="" xsi:type="PQ" value="6.0" /> <referenceRange> <observationRange> <text>5.0-7.0</text> </observationRange> </ referenceRange> </observation> </component> <component> <observation moodCode="EVN" classCode="OBS"> <templateId root= "216.840.1.332083.02.28.22.4.2" /> <id nullFlavor="NA" /> < code codeSystem="local" code="MB" displayName="Microbiology" /> < statusCode code="completed" /> <effectiveTime value="908946469447" /> <value unit="" xsi:type="PQ" value="" /> <referenceRange> <observationRange> <text /> </observationRange> </referenceRange> </observation> </component> </ organizer> </entry> <entry> <organizer moodCode="EVN" classCode="BATTERY"> <templateId root="16.840.1.541617.10..22.4.1" /> <id nullFlavor= "NA" /> <code codeSystem="local" code="UAMICRO" displayName="UA MICROSCOPIC " /> <statusCode code="completed" /> <component> <observation moodCode="EVN" classCode="OBS"> <templateId root= "16.840.1.074492.10...4.2" /> <id nullFlavor="NA" /> < code codeSystem="local" code="BACU" displayName="UA BACTERIA" /> < statusCode code="completed" /> <effectiveTime value="996100963331" /> <value unit="" xsi:type="PQ" value="2+" /> < interpretationCode codeSystem="local" code="*" /> <referenceRange> <observationRange> <text>NEGATIVE</text> </ observationRange> </referenceRange> </observation> </ component> <component> <observation moodCode="EVN" classCode="OBS"> <templateId root="06.27.840.1.596089.1022.4.2" /> <id nullFlavor="NA" /> <code codeSystem="local" code="EPIU" displayName=" UA EPITHELIAL CELLS" /> <statusCode code="completed" /> < effectiveTime value="206579574662" /> <value unit="epi/hpf" xsi:type= "PQ" value="1+" /> <referenceRange> <observationRange> <text>0 - 1+</text> </observationRange> </ referenceRange> </observation> </component> <component> <observation moodCode="EVN" classCode="OBS"> <templateId root= "216.840.1.195408.10.4.2" /> <id nullFlavor="NA" /> < code codeSystem="local" code="MUCUSU" displayName="UA MUCUS" /> < statusCode code="completed" /> <effectiveTime value="479693587905" /> <value unit="" xsi:type="PQ" value="1+" /> <referenceRange> <observationRange> <text>NEG TO 1+</text> </ observationRange> </referenceRange> </observation> </ component> <component> <observation moodCode="EVN" classCode="OBS"> <templateId root="2.840.1.302570.02.28.22.4.2" /> <id nullFlavor="NA" /> <code codeSystem="local" code="RBCU" displayName=" UA RBC" /> <statusCode code="completed" /> <effectiveTime value="" /> <value unit="rbc/hpf" xsi:type="PQ" value="0-3 " /> <referenceRange> <observationRange> <text> 0 - 3</text> </observationRange> </referenceRange> </ observation> </component> <component> <observation moodCode= "EVN" classCode="OBS"> <templateId root="216.840.1.969404.10.4.2 " /> <id nullFlavor="NA" /> <code codeSystem="local" code= "UAVOL" displayName="UA VOLUME FOR EXAM" /> <statusCode code="completed " /> <effectiveTime value="" /> <value unit="mL" xsi:type="PQ" value="12.0" /> <referenceRange> < observationRange> <text>(12mL STD)</text> </ observationRange> </referenceRange> </observation> </ component> <component> <observation moodCode="EVN" classCode="OBS"> <templateId root="06.27.840.1.332356.1022.4.2" /> <id nullFlavor="NA" /> <code codeSystem="local" code="WBCU" displayName=" UA WBC" /> <statusCode code="completed" /> <effectiveTime value="481869252654" /> <value unit="wbc/hpf" xsi:type="PQ" value="10- 20" /> <interpretationCode codeSystem="local" code="*" /> < referenceRange> <observationRange> <text>0 - 5</text> </observationRange> </referenceRange> </observation> </component> </organizer> </entry> <entry> <organizer moodCode="EVN " classCode="BATTERY"> <templateId root="840.1.958793.10.4.1" / > <id nullFlavor="NA" /> <code codeSystem="local" code="CBCD" displayName="CBC W/DIFF" /> <statusCode code="completed" /> <component > <observation moodCode="EVN" classCode="OBS"> <templateId root= "06.27.840.1.321575.1022.4.2" /> <id nullFlavor="NA" /> < code codeSystem="local" code="CBCCOM" displayName="COMMENT" /> < statusCode code="completed" /> <effectiveTime value="023687872727" /> <value xsi:type="ST" value="<pre><b>CBC W/DIFF</b> 6.64.72.932.067.821.030.922.3751491758.4NOTEDREVIEWED</pre>" /> <referenceRange> <observationRange> <text /> </observationRange> </referenceRange> </observation> </ component> <component> <observation moodCode="EVN" classCode="OBS"> <templateId root="216.840.1.940836.10...4.2" /> <id nullFlavor="NA" /> <code codeSystem="local" code="GR#" displayName= "GRANULOCYTE #" /> <statusCode code="completed" /> < effectiveTime value="522705259828" /> <value xsi:type="ST" value="<pre> <b>CBC W/DIFF</b> 6.932.067.821.030.922.6764458275..4NOTEDREVIEWED</ pre>" /> <referenceRange> <observationRange> < text>2.0-9.0</text> </observationRange> </referenceRange> </observation> </component> <component> <observation moodCode="EVN" classCode="OBS"> <templateId root= "2.16.840.1.052051.10...4.2" /> <id nullFlavor="NA" /> < code codeSystem="local" code="GR%" displayName="GRANULOCYTE %" /> <statusCode code="completed" /> <effectiveTime value="687914338413 " /> <value xsi:type="ST" value="<pre><b>CBC W/DIFF</b> 6.64.72.932.067.821.030.922.2665197351..4NOTEDREVIEWED</pre>" /> <interpretationCode codeSystem="local" code="*" /> <referenceRange> <observationRange> <text>50-75</text> </ observationRange> </referenceRange> </observation> </ component> <component> <observation moodCode="EVN" classCode="OBS"> <templateId root="2.16.840.1.825514.10..22.4.2" /> <id nullFlavor="NA" /> <code codeSystem="local" code="LY#" displayName= "LYMPHOCYTE #" /> <statusCode code="completed" /> < effectiveTime value="163630706936" /> <value xsi:type="ST" value="<pre> <b>CBC W/DIFF</b> 6729.932.067.821.030.922.7332196639..4NOTEDREVIEWED</ pre>" /> <interpretationCode codeSystem="local" code="*" /> < referenceRange> <observationRange> <text>1.0-4.0</text> </observationRange> </referenceRange> </observation > </component> <component> <observation moodCode="EVN" classCode="OBS"> <templateId root="2.16.840.1.106597.10.20.22.4.2" /> <id nullFlavor="NA" /> <code codeSystem="local" code="LY% " displayName="LYMPHOCYTE %" /> <statusCode code="completed" /> <effectiveTime value="826322011054" /> <value xsi:type="ST" value="<pre><b>CBC W/DIFF</b> 664729.932.067.821.030.922.5146081254..4NOTEDREVIEWED</pre>" /> <interpretationCode codeSystem="local" code="*" /> <referenceRange> <observationRange> <text>20-30</text> </ observationRange> </referenceRange> </observation> </ component> <component> <observation moodCode="EVN" classCode="OBS"> <templateId root="2.16.840.1.647294.10..22.4.2" /> <id nullFlavor="NA" /> <code codeSystem="local" code="MCH" displayName= "MEAN CELL HGB" /> <statusCode code="completed" /> < effectiveTime value="338313070552" /> <value xsi:type="ST" value="<pre> <b>CBC W/DIFF</b> 6.64.729.932.067.821.030.922.4504265035..4NOTEDREVIEWED</ pre>" /> <interpretationCode codeSystem="local" code="*" /> < referenceRange> <observationRange> <text>27.0-33.0</text > </observationRange> </referenceRange> </observation > </component> <component> <observation moodCode="EVN" classCode="OBS"> <templateId root="2.16.840.1.262818.10...4.2" /> <id nullFlavor="NA" /> <code codeSystem="local" code="MCHC" displayName="MEAN CELL HGB CONCENTRATION" /> <statusCode code= "completed" /> <effectiveTime value="055538826281" /> <value xsi:type="ST" value="<pre><b>CBC W/DIFF</b> 6.64.729.932.067.821.030.922.9244943657.90.4NOTEDREVIEWED</pre>" /> <interpretationCode codeSystem="local" code="*" /> <referenceRange> <observationRange> <text>32.0-37.0</text> </ observationRange> </referenceRange> </observation> </ component> <component> <observation moodCode="EVN" classCode="OBS"> <templateId root="2.16.840.1.789386.10..22.4.2" /> <id nullFlavor="NA" /> <code codeSystem="local" code="MCV" displayName= "MEAN CELL VOLUME" /> <statusCode code="completed" /> < effectiveTime value="479428809124" /> <value xsi:type="ST" value="<pre> <b>CBC W/DIFF</b> 6.64.729.932.067.821.030.922.3854941246..4NOTEDREVIEWED</ pre>" /> <interpretationCode codeSystem="local" code="*" /> < referenceRange> <observationRange> <text>80.0-100.0</ text> </observationRange> </referenceRange> </ observation> </component> <component> <observation moodCode= "EVN" classCode="OBS"> <templateId root="2.16.840.1.914797.10..22.4.2 " /> <id nullFlavor="NA" /> <code codeSystem="local" code="MO# " displayName="MONOCYTE #" /> <statusCode code="completed" /> <effectiveTime value="993876337459" /> <value xsi:type="ST" value="<pre ><b>CBC W/DIFF</b> 6.64729.932.067.821.030.922.8756695470..4NOTEDREVIEWED< /pre>" /> <referenceRange> <observationRange> < text>0.1-1.0</text> </observationRange> </referenceRange> </observation> </component> <component> <observation moodCode="EVN" classCode="OBS"> <templateId root= "2.16.840.1.908261.10..22.4.2" /> <id nullFlavor="NA" /> < code codeSystem="local" code="MO%" displayName="MONOCYTE %" /> <statusCode code="completed" /> <effectiveTime value="761867423442" /> <value xsi:type="ST" value="<pre><b>CBC W/DIFF</b> 6.64.729.932.067.821.030.922.1102519577..4NOTEDREVIEWED</pre>" /> <referenceRange> <observationRange> <text>4-6</text> </observationRange> </referenceRange> </observation> </component> <component> <observation moodCode="EVN" classCode= "OBS"> <templateId root="2.16.840.1.397585.10...4.2" /> < id nullFlavor="NA" /> <code codeSystem="local" code="OVAL" displayName= "OVALOCYTES" /> <statusCode code="completed" /> < effectiveTime value="361909879529" /> <value xsi:type="ST" value="<pre> <b>CBC W/DIFF</b> 6.64.729.932.067.821.030.922.7083024437..4NOTEDREVIEWED</ pre>" /> <referenceRange> <observationRange> < text /> </observationRange> </referenceRange> </ observation> </component> <component> <observation moodCode= "EVN" classCode="OBS"> <templateId root="2.16.840.1.452147.10..22.4.2 " /> <id nullFlavor="NA" /> <code codeSystem="local" code="RBC " displayName="RED BLOOD CELL" /> <statusCode code="completed" /> <effectiveTime value="766434069031" /> <value xsi:type="ST" value= "<pre><b>CBC W/DIFF</b> 6.64.729.932.067.821.030.922.1319580726.90.4NOTEDREVIEWED</pre>" /> <referenceRange> <observationRange> <text>4.00-6.00</ text> </observationRange> </referenceRange> </ observation> </component> <component> <observation moodCode= "EVN" classCode="OBS"> <templateId root="216.840.1.390502.10.20.22.4.2 " /> <id nullFlavor="NA" /> <code codeSystem="local" code="RDW " displayName="RED CELL DISTRIBUTION WIDTH" /> <statusCode code= "completed" /> <effectiveTime value="721576938945" /> <value xsi:type="ST" value="<pre><b>CBC W/DIFF</b> 6.64.729.932.067.821.030.922.0011016697.90.4NOTEDREVIEWED</pre>" /> <interpretationCode codeSystem="local" code="*" /> <referenceRange> <observationRange> <text>11.0-15.6</text> </ observationRange> </referenceRange> </observation> </ component> <component> <observation moodCode="EVN" classCode="OBS"> <templateId root="216.840.1.461906.10.20.22.4.2" /> <id nullFlavor="NA" /> <code codeSystem="local" code="WBC" displayName= "WHITE BLOOD CELL" /> <statusCode code="completed" /> < effectiveTime value="914333127364" /> <value xsi:type="ST" value="<pre> <b>CBC W/DIFF</b> 6.64.729.932.067.821.030.922.2612832000..4NOTEDREVIEWED</ pre>" /> <referenceRange> <observationRange> < text>5.0-10.0</text> </observationRange> </referenceRange> </observation> </component> <component> <observation moodCode="EVN" classCode="OBS"> <templateId root= "2.16.840.1.511680.10...4.2" /> <id nullFlavor="NA" /> < code codeSystem="local" code="HGBT" displayName="HEMOGLOBIN" /> < statusCode code="completed" /> <effectiveTime value="886044877215" /> <value xsi:type="ST" value="<pre><b>CBC W/DIFF</b> 6.64.729.932.067.821.030.922.5897870827..4NOTEDREVIEWED</pre>" /> <interpretationCode codeSystem="local" code="*" /> <referenceRange> <observationRange> <text>12.0-16.0</text> </ observationRange> </referenceRange> </observation> </ component> <component> <observation moodCode="EVN" classCode="OBS"> <templateId root="2.16.840.1.909283.10..22.4.2" /> <id nullFlavor="NA" /> <code codeSystem="local" code="HCTT" displayName= "HEMATOCRIT" /> <statusCode code="completed" /> < effectiveTime value="978163364398" /> <value xsi:type="ST" value="<pre> <b>CBC W/DIFF</b> 6.64.729.932.067.821.030.922.8212644690..4NOTEDREVIEWED</ pre>" /> <interpretationCode codeSystem="local" code="*" /> < referenceRange> <observationRange> <text>37.0-47.0</text > </observationRange> </referenceRange> </observation > </component> <component> <observation moodCode="EVN" classCode="OBS"> <templateId root="2.16.840.1.069521.10..22.4.2" /> <id nullFlavor="NA" /> <code codeSystem="local" code="PLT" displayName="PLATELET COUNT" /> <statusCode code="completed" /> <effectiveTime value="544219729515" /> <value xsi:type="ST" value="< pre><b>CBC W/DIFF</b> 6..729.932.067.821.030.922.6588952182..4NOTEDREVIEWED</pre>" /> <referenceRange> <observationRange> <text>150-450</text > </observationRange> </referenceRange> </observation > </component> <component> <observation moodCode="EVN" classCode="OBS"> <templateId root="2.16.840.1.772226.10..22.4.2" /> <id nullFlavor="NA" /> <code codeSystem="local" code="MB" displayName="Microbiology" /> <statusCode code="completed" /> <effectiveTime value="106684609483" /> <value xsi:type="ST" value="<pre ><b>CBC W/DIFF</b> 6.64.729.932.067.821.030.922.7024725690.30.90.4NOTEDREVIEWED< /pre>" /> <referenceRange> <observationRange> < text /> </observationRange> </referenceRange> </ observation> </component> </organizer> </entry> <entry> <organizer moodCode="EVN" classCode="BATTERY"> <templateId root= "216.840.1.064429.10..22.4.1" /> <id nullFlavor="NA" /> <code codeSystem="local" code="METAB" displayName="METABOLIC PANEL, BASIC" /> < statusCode code="completed" /> <component> <observation moodCode= "EVN" classCode="OBS"> <templateId root="216.840.1.145884.10...4.2 " /> <id nullFlavor="NA" /> <code codeSystem="local" code="K" displayName="POTASSIUM" /> <statusCode code="completed" /> < effectiveTime value="520730637962" /> <value xsi:type="ST" value="<pre> <b>METABOLIC PANEL, BASIC</b> 1362.506632000655.8> 60> 609.5</pre>" /> <interpretationCode codeSystem="local" code="*" /> <referenceRange> <observationRange> <text>3.5-5.3</text> </ observationRange> </referenceRange> </observation> </ component> <component> <observation moodCode="EVN" classCode="OBS"> <templateId root="06.27.840.1.646255.10...4.2" /> <id nullFlavor="NA" /> <code codeSystem="local" code="eGFR" displayName= "EST GFR (MDRD)" /> <statusCode code="completed" /> < effectiveTime value="965988639984" /> <value xsi:type="ST" value="<pre> <b>METABOLIC PANEL, BASIC</b> 1362.146682699708.8> 60> 609.5</pre>" /> <referenceRange> <observationRange> <text>> 59</text > </observationRange> </referenceRange> </observation > </component> <component> <observation moodCode="EVN" classCode="OBS"> <templateId root="2.16.840.1.050547.10.20.22.4.2" /> <id nullFlavor="NA" /> <code codeSystem="local" code="GAP" displayName="ANION GAP" /> <statusCode code="completed" /> < effectiveTime value="856887831070" /> <value xsi:type="ST" value="<pre> <b>METABOLIC PANEL, BASIC</b> 1362.540550784465.8> 60> 609.5</pre>" /> <referenceRange> <observationRange> <text>5-15</text> </observationRange> </referenceRange> </observation> </component> <component> <observation moodCode="EVN" classCode= "OBS"> <templateId root="2.16.840.1.129312.10.20.22.4.2" /> < id nullFlavor="NA" /> <code codeSystem="local" code="eCrCl" displayName ="EST CrCl (CG)" /> <statusCode code="completed" /> < effectiveTime value="151391714709" /> <value xsi:type="ST" value="<pre> <b>METABOLIC PANEL, BASIC</b> 1362.792997909990.8> 60> 609.5</pre>" /> <referenceRange> <observationRange> <text>> 59</text > </observationRange> </referenceRange> </observation > </component> <component> <observation moodCode="EVN" classCode="OBS"> <templateId root="06.27.840.1.814691.10..4.2" /> <id nullFlavor="NA" /> <code codeSystem="local" code="GLU" displayName="GLUCOSE" /> <statusCode code="completed" /> < effectiveTime value="643255023724" /> <value xsi:type="ST" value="<pre> <b>METABOLIC PANEL, BASIC</b> 1362.602210434008.8> 60> 609.5</pre>" /> <referenceRange> <observationRange> <text>70-99</text> </observationRange> </referenceRange> </observation> </component> <component> <observation moodCode="EVN" classCode ="OBS"> <templateId root="840.1.789715.02.28.22.4.2" /> < id nullFlavor="NA" /> <code codeSystem="local" code="CA" displayName= "CALCIUM" /> <statusCode code="completed" /> <effectiveTime value="790134955019" /> <value xsi:type="ST" value="<pre><b>METABOLIC PANEL, BASIC</b> 1362.975601588088.8> 60> 609.5</pre>" /> < referenceRange> <observationRange> <text>8.5-10.1</text > </observationRange> </referenceRange> </observation > </component> <component> <observation moodCode="EVN" classCode="OBS"> <templateId root="06.27.840.1.156349.10.2022.4.2" /> <id nullFlavor="NA" /> <code codeSystem="local" code="BUN" displayName="BLOOD UREA NITROGEN" /> <statusCode code="completed" /> <effectiveTime value="079737312460" /> <value xsi:type="ST" value="<pre><b>METABOLIC PANEL, BASIC</b> 1362.190733265338.8> 60> 609.5</pre>" /> <referenceRange> <observationRange> <text>7- 20</text> </observationRange> </referenceRange> </ observation> </component> <component> <observation moodCode= "EVN" classCode="OBS"> <templateId root="2.16.840.1.275523.10...4.2 " /> <id nullFlavor="NA" /> <code codeSystem="local" code= "CREAT" displayName="CREATININE" /> <statusCode code="completed" /> <effectiveTime value="031173777966" /> <value xsi:type="ST" value="<pre><b>METABOLIC PANEL, BASIC</b> 1362.898646300160.8> 60> 609.5</pre>" /> <referenceRange> <observationRange> <text> 0.6-1.0</text> </observationRange> </referenceRange> </observation> </component> <component> <observation moodCode= "EVN" classCode="OBS"> <templateId root="216.840.1.399712.02.28.22.4.2 " /> <id nullFlavor="NA" /> <code codeSystem="local" code="NA " displayName="SODIUM" /> <statusCode code="completed" /> < effectiveTime value="322228737169" /> <value xsi:type="ST" value="<pre> <b>METABOLIC PANEL, BASIC</b> 1362.063397008271.8> 60> 609.5</pre>" /> <referenceRange> <observationRange> <text>135-148</text > </observationRange> </referenceRange> </observation > </component> <component> <observation moodCode="EVN" classCode="OBS"> <templateId root="216.840.1.788423.10..22.4.2" /> <id nullFlavor="NA" /> <code codeSystem="local" code="CL" displayName="CHLORIDE" /> <statusCode code="completed" /> < effectiveTime value="223548947908" /> <value xsi:type="ST" value="<pre> <b>METABOLIC PANEL, BASIC</b> 1362.609749120413.8> 60> 609.5</pre>" /> <interpretationCode codeSystem="local" code="*" /> <referenceRange> <observationRange> <text>98-110</text> </ observationRange> </referenceRange> </observation> </ component> <component> <observation moodCode="EVN" classCode="OBS"> <templateId root="216.840.1.264361.10...4.2" /> <id nullFlavor="NA" /> <code codeSystem="local" code="CO2" displayName= "CARBON DIOXIDE" /> <statusCode code="completed" /> < effectiveTime value="619305411552" /> <value xsi:type="ST" value="<pre> <b>METABOLIC PANEL, BASIC</b> 1362.983890252972.8> 60> 609.5</pre>" /> <referenceRange> <observationRange> <text>21-32</text> </observationRange> </referenceRange> </observation> </component> <component> <observation moodCode="EVN" classCode ="OBS"> <templateId root="2.840.1.819878.02.28.22.4.2" /> < id nullFlavor="NA" /> <code codeSystem="local" code="MB" displayName= "Microbiology" /> <statusCode code="completed" /> < effectiveTime value="046088837626" /> <value xsi:type="ST" value="<pre> <b>METABOLIC PANEL, BASIC</b> 1362.340684053274.8> 60> 609.5</pre>" /> <referenceRange> <observationRange> <text /> </observationRange> </referenceRange> </observation> </ component> </organizer> </entry> <entry> <organizer moodCode="EVN" classCode="BATTERY"> <templateId root="16.840.1.183002.02.28.22.4.1" /> <id nullFlavor="NA" /> <code codeSystem="local" code="UA" displayName= "URINALYSIS, ROUTINE" /> <statusCode code="completed" /> <component> <observation moodCode="EVN" classCode="OBS"> <templateId root= "16.840.1.479922.02.28.22.4.2" /> <id nullFlavor="NA" /> < code codeSystem="local" code="LEUESU" displayName="UA LEUKOCYTE ESTERASE DIPSTICK" /> <statusCode code="completed" /> <effectiveTime value="176864857206" /> <value unit="" xsi:type="PQ" value="NEGATIVE" / > <referenceRange> <observationRange> <text> NEGATIVE</text> </observationRange> </referenceRange> </observation> </component> <component> <observation moodCode ="EVN" classCode="OBS"> <templateId root= "[id number]...4.2" /> <id nullFlavor="NA" /> < code codeSystem="local" code="NITRIU" displayName="UA NITRITE DIPSTICK" /> <statusCode code="completed" /> <effectiveTime value="[id number] " /> <value unit="" xsi:type="PQ" value="NEGATIVE" /> < referenceRange> <observationRange> <text>NEGATIVE</text > </observationRange> </referenceRange> </observation > </component> <component> <observation moodCode="EVN" classCode="OBS"> <templateId root="[id number]..22.4.2" /> <id nullFlavor="NA" /> <code codeSystem="local" code="PROTEIU " displayName="UA PROTEIN DIPSTICK" /> <statusCode code="completed" /> <effectiveTime value="[id number]" /> <value unit="" xsi: type="PQ" value="NEGATIVE" /> <referenceRange> < observationRange> <text>NEGATIVE</text> </ observationRange> </referenceRange> </observation> </ component> <component> <observation moodCode="EVN" classCode="OBS"> <templateId root="[id number]..22.4.2" /> <id nullFlavor="NA" /> <code codeSystem="local" code="DGLUU" displayName= "UA GLUCOSE DIPSTICK" /> <statusCode code="completed" /> < effectiveTime value="[id number]" /> <value unit="" xsi:type="PQ" value="NEGATIVE" /> <referenceRange> <observationRange> <text>NEGATIVE</text> </observationRange> </ referenceRange> </observation> </component> <component> <observation moodCode="EVN" classCode="OBS"> <templateId root= "06.27.840.1.647983.02.28.22.4.2" /> <id nullFlavor="NA" /> < code codeSystem="local" code="KETONU" displayName="UA KETONE DIPSTICK" /> <statusCode code="completed" /> <effectiveTime value="765236580139 " /> <value unit="" xsi:type="PQ" value="2+" /> < interpretationCode codeSystem="local" code="*" /> <referenceRange> <observationRange> <text>NEGATIVE</text> </ observationRange> </referenceRange> </observation> </ component> <component> <observation moodCode="EVN" classCode="OBS"> <templateId root="216.840.1.651351.02.28.22.4.2" /> <id nullFlavor="NA" /> <code codeSystem="local" code="UROBILU" displayName= "UA UROBILINOGEN DIPSTICK" /> <statusCode code="completed" /> <effectiveTime value="534717732595" /> <value unit="" xsi:type="PQ" value="NORMAL" /> <referenceRange> <observationRange> <text>NORMAL</text> </observationRange> </ referenceRange> </observation> </component> <component> <observation moodCode="EVN" classCode="OBS"> <templateId root= "216.840.1.056984.10..4.2" /> <id nullFlavor="NA" /> < code codeSystem="local" code="BILU" displayName="UA BILIRUBIN DIPSTICK" /> <statusCode code="completed" /> <effectiveTime value="643501432619 " /> <value unit="" xsi:type="PQ" value="1+" /> < interpretationCode codeSystem="local" code="*" /> <referenceRange> <observationRange> <text>NEGATIVE</text> </ observationRange> </referenceRange> </observation> </ component> <component> <observation moodCode="EVN" classCode="OBS"> <templateId root="216.840.1.933582.10.4.2" /> <id nullFlavor="NA" /> <code codeSystem="local" code="NOLVIA" displayName="UA BLOOD DIPSTICK" /> <statusCode code="completed" /> < effectiveTime value="565949442826" /> <value unit="" xsi:type="PQ" value="TRACE" /> <interpretationCode codeSystem="local" code="*" /> <referenceRange> <observationRange> <text> NEGATIVE</text> </observationRange> </referenceRange> </observation> </component> <component> <observation moodCode ="EVN" classCode="OBS"> <templateId root= "06.27.840.1.809888.02.28.224.2" /> <id nullFlavor="NA" /> < code codeSystem="local" code="SPGRU" displayName="UA SPECIFIC GRAVITY" /> <statusCode code="completed" /> <effectiveTime value="984896879257 " /> <value unit="" xsi:type="PQ" value="1.015" /> < referenceRange> <observationRange> <text>1.015-1.025</ text> </observationRange> </referenceRange> </ observation> </component> <component> <observation moodCode= "EVN" classCode="OBS"> <templateId root="16.840.1.630539.02.28.22.4.2 " /> <id nullFlavor="NA" /> <code codeSystem="local" code="DIETER " displayName="UR PH" /> <statusCode code="completed" /> < effectiveTime value="453233758513" /> <value unit="" xsi:type="PQ" value="6.0" /> <referenceRange> <observationRange> <text>5.0-7.0</text> </observationRange> </ referenceRange> </observation> </component> <component> <observation moodCode="EVN" classCode="OBS"> <templateId root= "16.840.1.778202.02.28.22.4.2" /> <id nullFlavor="NA" /> < code codeSystem="local" code="MB" displayName="Microbiology" /> < statusCode code="completed" /> <effectiveTime value="157811250279" /> <value unit="" xsi:type="PQ" value="" /> <referenceRange> <observationRange> <text /> </observationRange> </referenceRange> </observation> </component> </ organizer> </entry> <entry> <organizer moodCode="EVN" classCode="BATTERY"> <templateId root="16.840.1.378798...4.1" /> <id nullFlavor= "NA" /> <code codeSystem="local" code="UAMICRO" displayName="UA MICROSCOPIC " /> <statusCode code="completed" /> <component> <observation moodCode="EVN" classCode="OBS"> <templateId root= "16.840.1.608313.10..22.4.2" /> <id nullFlavor="NA" /> < code codeSystem="local" code="BACU" displayName="UA BACTERIA" /> < statusCode code="completed" /> <effectiveTime value="820686514019" /> <value unit="" xsi:type="PQ" value="2+" /> < interpretationCode codeSystem="local" code="*" /> <referenceRange> <observationRange> <text>NEGATIVE</text> </ observationRange> </referenceRange> </observation> </ component> <component> <observation moodCode="EVN" classCode="OBS"> <templateId root="840.1.811932.10.20.22.4.2" /> <id nullFlavor="NA" /> <code codeSystem="local" code="EPIU" displayName=" UA EPITHELIAL CELLS" /> <statusCode code="completed" /> < effectiveTime value="380679823132" /> <value unit="epi/hpf" xsi:type= "PQ" value="2+" /> <interpretationCode codeSystem="local" code="*" /> <referenceRange> <observationRange> <text>0 - 1 +</text> </observationRange> </referenceRange> </ observation> </component> <component> <observation moodCode= "EVN" classCode="OBS"> <templateId root="840.1.020335...4.2 " /> <id nullFlavor="NA" /> <code codeSystem="local" code= "MUCUSU" displayName="UA MUCUS" /> <statusCode code="completed" /> <effectiveTime value="040072505906" /> <value unit="" xsi:type= "PQ" value="3+" /> <interpretationCode codeSystem="local" code="*" /> <referenceRange> <observationRange> <text>NEG TO 1+</text> </observationRange> </referenceRange> </ observation> </component> <component> <observation moodCode= "EVN" classCode="OBS"> <templateId root="06.27.840.1.396661.10.2022.4.2 " /> <id nullFlavor="NA" /> <code codeSystem="local" code= "RBCU" displayName="UA RBC" /> <statusCode code="completed" /> <effectiveTime value="822434441505" /> <value unit="rbc/hpf" xsi:type ="PQ" value="0-3" /> <referenceRange> <observationRange> <text>0 - 3</text> </observationRange> </ referenceRange> </observation> </component> <component> <observation moodCode="EVN" classCode="OBS"> <templateId root= "16.840.1.470204.10.20.22.4.2" /> <id nullFlavor="NA" /> < code codeSystem="local" code="UAVOL" displayName="UA VOLUME FOR EXAM" /> <statusCode code="completed" /> <effectiveTime value="319051730629" /> <value unit="mL" xsi:type="PQ" value="12.0" /> < referenceRange> <observationRange> <text>(12mL STD)</ text> </observationRange> </referenceRange> </ observation> </component> <component> <observation moodCode= "EVN" classCode="OBS"> <templateId root="16.840.1.732337.10.20.22.4.2 " /> <id nullFlavor="NA" /> <code codeSystem="local" code= "WBCU" displayName="UA WBC" /> <statusCode code="completed" /> <effectiveTime value="477688070330" /> <value unit="wbc/hpf" xsi:type ="PQ" value="0-1" /> <referenceRange> <observationRange> <text>0 - 5</text> </observationRange> </ referenceRange> </observation> </component> </organizer> </entry > <entry> <organizer moodCode="EVN" classCode="BATTERY"> <templateId root="840.1.159822.10..22.4.1" /> <id nullFlavor="NA" /> <code codeSystem="local" code="PREGU" displayName="UR TEST" /> < statusCode code="completed" /> <component> <observation moodCode= "EVN" classCode="OBS"> <templateId root="216.840.1.734336...4.2 " /> <id nullFlavor="NA" /> <code codeSystem="local" code= "PREGU" displayName="UR TEST" /> <statusCode code="completed " /> <effectiveTime value="322633477295" /> <value xsi:type= "ST" value="<pre><b>UR TEST</b> NEGATIVE</pre>" /> < referenceRange> <observationRange> <text>NEGATIVE</text > </observationRange> </referenceRange> </observation > </component> <component> <observation moodCode="EVN" classCode="OBS"> <templateId root="06.27.840.1.924885.02.28.22.4.2" /> <id nullFlavor="NA" /> <code codeSystem="local" code="MB" displayName="Microbiology" /> <statusCode code="completed" /> <effectiveTime value="478988009516" /> <value xsi:type="ST" value="<pre ><b>UR TEST</b> NEGATIVE</pre>" /> <referenceRange> <observationRange> <text /> </observationRange> </referenceRange> </observation> </component> </organizer> </entry> <entry> <organizer moodCode="EVN" classCode="BATTERY"> < templateId root="216.840.1.175362.10..22.4.1" /> <id nullFlavor="NA" /> <code codeSystem="local" code="CBCD" displayName="CBC W/DIFF" /> < statusCode code="completed" /> <component> <observation moodCode= "EVN" classCode="OBS"> <templateId root="06.27.840.1.761298.10..4.2 " /> <id nullFlavor="NA" /> <code codeSystem="local" code="BA# " displayName="BASOPHIL #" /> <statusCode code="completed" /> <effectiveTime value="691652910884" /> <value unit="k/cumm" xsi:type= "PQ" value="0.0" /> <referenceRange> <observationRange> <text>0.0-0.2</text> </observationRange> </ referenceRange> </observation> </component> <component> <observation moodCode="EVN" classCode="OBS"> <templateId root= "840.1.369029.02.28.22.4.2" /> <id nullFlavor="NA" /> < code codeSystem="local" code="BA%" displayName="BASOPHIL %" /> <statusCode code="completed" /> <effectiveTime value="254825431490" /> <value unit="%" xsi:type="PQ" value="1" /> < referenceRange> <observationRange> <text>0-1</text> </observationRange> </referenceRange> </observation> </component> <component> <observation moodCode="EVN" classCode= "OBS"> <templateId root="840.1.710957.10..4.2" /> < id nullFlavor="NA" /> <code codeSystem="local" code="EO#" displayName= "EOSINOPHIL #" /> <statusCode code="completed" /> < effectiveTime value="071276550119" /> <value unit="k/cumm" xsi:type="PQ " value="0.1" /> <referenceRange> <observationRange> <text>0.1-0.5</text> </observationRange> </ referenceRange> </observation> </component> <component> <observation moodCode="EVN" classCode="OBS"> <templateId root= "16.840.1.570386.10.22.4.2" /> <id nullFlavor="NA" /> < code codeSystem="local" code="EO%" displayName="EOSINOPHIL %" /> <statusCode code="completed" /> <effectiveTime value="999900213764" /> <value unit="%" xsi:type="PQ" value="1" /> < interpretationCode codeSystem="local" code="*" /> <referenceRange> <observationRange> <text>2-4</text> </ observationRange> </referenceRange> </observation> </ component> <component> <observation moodCode="EVN" classCode="OBS"> <templateId root="06.27.840.1.731822.10.20.22.4.2" /> <id nullFlavor="NA" /> <code codeSystem="local" code="GR#" displayName= "GRANULOCYTE #" /> <statusCode code="completed" /> < effectiveTime value="939677414839" /> <value unit="k/cumm" xsi:type="PQ " value="3.0" /> <referenceRange> <observationRange> <text>2.0-9.0</text> </observationRange> </ referenceRange> </observation> </component> <component> <observation moodCode="EVN" classCode="OBS"> <templateId root= "16.840.1.311044.10.22.4.2" /> <id nullFlavor="NA" /> < code codeSystem="local" code="GR%" displayName="GRANULOCYTE %" /> <statusCode code="completed" /> <effectiveTime value="104782456906 " /> <value unit="%" xsi:type="PQ" value="57" /> < referenceRange> <observationRange> <text>50-75</text> </observationRange> </referenceRange> </observation> </component> <component> <observation moodCode="EVN" classCode= "OBS"> <templateId root="06.27.840.1.584348.10..4.2" /> < id nullFlavor="NA" /> <code codeSystem="local" code="LY#" displayName= "LYMPHOCYTE #" /> <statusCode code="completed" /> < effectiveTime value="816714605146" /> <value unit="k/cumm" xsi:type="PQ " value="1.8" /> <referenceRange> <observationRange> <text>1.0-4.0</text> </observationRange> </ referenceRange> </observation> </component> <component> <observation moodCode="EVN" classCode="OBS"> <templateId root= "06.27.840.1.732386.10..4.2" /> <id nullFlavor="NA" /> < code codeSystem="local" code="LY%" displayName="LYMPHOCYTE %" /> <statusCode code="completed" /> <effectiveTime value="018112711319" /> <value unit="%" xsi:type="PQ" value="34" /> < interpretationCode codeSystem="local" code="*" /> <referenceRange> <observationRange> <text>20-30</text> </ observationRange> </referenceRange> </observation> </ component> <component> <observation moodCode="EVN" classCode="OBS"> <templateId root="216.840.1.516381.10.20.22.4.2" /> <id nullFlavor="NA" /> <code codeSystem="local" code="MCH" displayName= "MEAN CELL HGB" /> <statusCode code="completed" /> < effectiveTime value="393770604494" /> <value unit="pg" xsi:type="PQ" value="20.4" /> <interpretationCode codeSystem="local" code="*" /> <referenceRange> <observationRange> <text>27.0- 33.0</text> </observationRange> </referenceRange> </ observation> </component> <component> <observation moodCode= "EVN" classCode="OBS"> <templateId root="06.27.840.1.094346.10.22.4.2 " /> <id nullFlavor="NA" /> <code codeSystem="local" code= "MCHC" displayName="MEAN CELL HGB CONCENTRATION" /> <statusCode code= "completed" /> <effectiveTime value="424681251813" /> <value unit="g/dL" xsi:type="PQ" value="30.3" /> <interpretationCode codeSystem="local" code="*" /> <referenceRange> < observationRange> <text>32.0-37.0</text> </ observationRange> </referenceRange> </observation> </ component> <component> <observation moodCode="EVN" classCode="OBS"> <templateId root="216.840.1.820406.10.2022.4.2" /> <id nullFlavor="NA" /> <code codeSystem="local" code="MCV" displayName= "MEAN CELL VOLUME" /> <statusCode code="completed" /> < effectiveTime value="245785947064" /> <value unit="fl" xsi:type="PQ" value="67.4" /> <interpretationCode codeSystem="local" code="*" /> <referenceRange> <observationRange> <text>80.0- 100.0</text> </observationRange> </referenceRange> </ observation> </component> <component> <observation moodCode= "EVN" classCode="OBS"> <templateId root="2.16.840.1.330836.02.28.22.4.2 " /> <id nullFlavor="NA" /> <code codeSystem="local" code="MO# " displayName="MONOCYTE #" /> <statusCode code="completed" /> <effectiveTime value="296037907329" /> <value unit="k/cumm" xsi:type= "PQ" value="0.4" /> <referenceRange> <observationRange> <text>0.1-1.0</text> </observationRange> </ referenceRange> </observation> </component> <component> <observation moodCode="EVN" classCode="OBS"> <templateId root= "216.840.1.049948.10.22.4.2" /> <id nullFlavor="NA" /> < code codeSystem="local" code="MO%" displayName="MONOCYTE %" /> <statusCode code="completed" /> <effectiveTime value="564539790648" /> <value unit="%" xsi:type="PQ" value="7" /> < interpretationCode codeSystem="local" code="*" /> <referenceRange> <observationRange> <text>4-6</text> </ observationRange> </referenceRange> </observation> </ component> <component> <observation moodCode="EVN" classCode="OBS"> <templateId root="16.840.1.987279.02.28.22.4.2" /> <id nullFlavor="NA" /> <code codeSystem="local" code="OVAL" displayName= "OVALOCYTES" /> <statusCode code="completed" /> < effectiveTime value="015722379524" /> <value unit="" xsi:type="PQ" value="NOTED" /> <referenceRange> <observationRange> <text /> </observationRange> </referenceRange> </observation> </component> <component> <observation moodCode ="EVN" classCode="OBS"> <templateId root= "06.27.840.1.633061.02.28.224.2" /> <id nullFlavor="NA" /> < code codeSystem="local" code="RBC" displayName="RED BLOOD CELL" /> < statusCode code="completed" /> <effectiveTime value="747443520157" /> <value unit="m/cumm" xsi:type="PQ" value="3.77" /> < interpretationCode codeSystem="local" code="*" /> <referenceRange> <observationRange> <text>4.00-6.00</text> </ observationRange> </referenceRange> </observation> </ component> <component> <observation moodCode="EVN" classCode="OBS"> <templateId root="06.27.840.1.218999.02.28.22.4.2" /> <id nullFlavor="NA" /> <code codeSystem="local" code="RDW" displayName=" RED CELL DISTRIBUTION WIDTH" /> <statusCode code="completed" /> <effectiveTime value="511946943850" /> <value unit="%" xsi:type= "PQ" value="22.0" /> <interpretationCode codeSystem="local" code="*" / > <referenceRange> <observationRange> <text> 11.0-15.6</text> </observationRange> </referenceRange> </observation> </component> <component> <observation moodCode="EVN" classCode="OBS"> <templateId root= "06.27.840.1.234348.02.28.22.4.2" /> <id nullFlavor="NA" /> < code codeSystem="local" code="WBC" displayName="WHITE BLOOD CELL" /> < statusCode code="completed" /> <effectiveTime value="995502350095" /> <value unit="k/cumm" xsi:type="PQ" value="5.3" /> < referenceRange> <observationRange> <text>5.0-10.0</text > </observationRange> </referenceRange> </observation > </component> <component> <observation moodCode="EVN" classCode="OBS"> <templateId root="16.840.1.343576.02.28.22.4.2" /> <id nullFlavor="NA" /> <code codeSystem="local" code="HGBT" displayName="HEMOGLOBIN" /> <statusCode code="completed" /> < effectiveTime value="179685441276" /> <value unit="gm/dL" xsi:type="PQ " value="7.7" /> <interpretationCode codeSystem="local" code="*" /> <referenceRange> <observationRange> <text>12.0- 16.0</text> </observationRange> </referenceRange> </ observation> </component> <component> <observation moodCode= "EVN" classCode="OBS"> <templateId root="06.27.840.1.583051.10..22.4.2 " /> <id nullFlavor="NA" /> <code codeSystem="local" code= "HCTT" displayName="HEMATOCRIT" /> <statusCode code="completed" /> <effectiveTime value="158260795289" /> <value unit="%" xsi: type="PQ" value="25.4" /> <interpretationCode codeSystem="local" code= "*" /> <referenceRange> <observationRange> < text>37.0-47.0</text> </observationRange> </referenceRange> </observation> </component> <component> <observation moodCode="EVN" classCode="OBS"> <templateId root= "16.840.1.958359.10..4.2" /> <id nullFlavor="NA" /> < code codeSystem="local" code="PLT" displayName="PLATELET COUNT" /> < statusCode code="completed" /> <effectiveTime value="293803316396" /> <value unit="k/cumm" xsi:type="PQ" value="284" /> < referenceRange> <observationRange> <text>150-400</text> </observationRange> </referenceRange> </observation > </component> <component> <observation moodCode="EVN" classCode="OBS"> <templateId root="06.27.840.1.155321.10.20.22.4.2" /> <id nullFlavor="NA" /> <code codeSystem="local" code="MB" displayName="Microbiology" /> <statusCode code="completed" /> <effectiveTime value="333047802490" /> <value unit="" xsi:type="PQ" value="" /> <referenceRange> <observationRange> <text /> </observationRange> </referenceRange> </ observation> </component> </organizer> </entry> <entry> <organizer moodCode="EVN" classCode="BATTERY"> <templateId root= "2.16.840.1.924998.10..22.4.1" /> <id nullFlavor="NA" /> <code codeSystem="local" code="PREG" displayName=" TEST, SERUM" /> < statusCode code="completed" /> <component> <observation moodCode= "EVN" classCode="OBS"> <templateId root="2.16.840.1.421105.10..22.4.2 " /> <id nullFlavor="NA" /> <code codeSystem="local" code= "PREG" displayName=" TEST, SERUM" /> <statusCode code= "completed" /> <effectiveTime value="927581296545" /> <value xsi:type="ST" value="<pre><b> TEST, SERUM</b> NEGATIVE</pre>" /> <referenceRange> <observationRange> <text>NEGATIVE</ text> </observationRange> </referenceRange> </ observation> </component> <component> <observation moodCode= "EVN" classCode="OBS"> <templateId root="2.16.840.1.878918.10..22.4.2 " /> <id nullFlavor="NA" /> <code codeSystem="local" code="MB " displayName="Microbiology" /> <statusCode code="completed" /> <effectiveTime value="599835118994" /> <value xsi:type="ST" value="< pre><b> TEST, SERUM</b> NEGATIVE</pre>" /> <referenceRange> <observationRange> <text /> </observationRange > </referenceRange> </observation> </component> </ organizer> </entry> <entry> <organizer moodCode="EVN" classCode="BATTERY"> <templateId root="06.27.840.1.477122.10..4.1" /> <id nullFlavor= "NA" /> <code codeSystem="local" code="METABC" displayName="METABOLIC PANEL , COMPREHN" /> <statusCode code="completed" /> <component> < observation moodCode="EVN" classCode="OBS"> <templateId root= "840.1.774626.02.28.22.4.2" /> <id nullFlavor="NA" /> < code codeSystem="local" code="K" displayName="POTASSIUM" /> < statusCode code="completed" /> <effectiveTime value="530552957999" /> <value unit="mmol/L" xsi:type="PQ" value="3.5" /> < referenceRange> <observationRange> <text>3.5-5.3</text> </observationRange> </referenceRange> </observation > </component> <component> <observation moodCode="EVN" classCode="OBS"> <templateId root="840.1.505392.02.28.22.4.2" /> <id nullFlavor="NA" /> <code codeSystem="local" code="eGFR" displayName="EST GFR (MDRD)" /> <statusCode code="completed" /> <effectiveTime value="648804809446" /> <value unit="mL/min" xsi:type ="PQ" value="> 60" /> <referenceRange> <observationRange > <text>> 59</text> </observationRange> </ referenceRange> </observation> </component> <component> <observation moodCode="EVN" classCode="OBS"> <templateId root= "06.27.840.1.816384.02.28.22.4.2" /> <id nullFlavor="NA" /> < code codeSystem="local" code="GAP" displayName="ANION GAP" /> < statusCode code="completed" /> <effectiveTime value="635982986553" /> <value unit="mmol/L" xsi:type="PQ" value="8" /> < referenceRange> <observationRange> <text>5-15</text> </observationRange> </referenceRange> </observation> </component> <component> <observation moodCode="EVN" classCode= "OBS"> <templateId root="2.16.840.1.599863.10..22.4.2" /> < id nullFlavor="NA" /> <code codeSystem="local" code="eCrCl" displayName ="EST CrCl (CG)" /> <statusCode code="completed" /> < effectiveTime value="148415586728" /> <value unit="mL/min" xsi:type="PQ " value="> 60" /> <referenceRange> <observationRange> <text>> 59</text> </observationRange> </ referenceRange> </observation> </component> <component> <observation moodCode="EVN" classCode="OBS"> <templateId root= "2.16.840.1.271326.10..22.4.2" /> <id nullFlavor="NA" /> < code codeSystem="local" code="GLU" displayName="GLUCOSE" /> < statusCode code="completed" /> <effectiveTime value="998070354626" /> <value unit="mg/dL" xsi:type="PQ" value="79" /> < referenceRange> <observationRange> <text>70-99</text> </observationRange> </referenceRange> </observation> </component> <component> <observation moodCode="EVN" classCode= "OBS"> <templateId root="16.840.1.194190.10.20.22.4.2" /> < id nullFlavor="NA" /> <code codeSystem="local" code="CA" displayName= "CALCIUM" /> <statusCode code="completed" /> <effectiveTime value="053807612167" /> <value unit="mg/dL" xsi:type="PQ" value="8.6" / > <referenceRange> <observationRange> <text>8.5 -10.1</text> </observationRange> </referenceRange> </ observation> </component> <component> <observation moodCode= "EVN" classCode="OBS"> <templateId root="16.840.1.997941.10..22.4.2 " /> <id nullFlavor="NA" /> <code codeSystem="local" code="BUN " displayName="BLOOD UREA NITROGEN" /> <statusCode code="completed" /> <effectiveTime value="719371780006" /> <value unit="mg/dL" xsi:type="PQ" value="9" /> <referenceRange> < observationRange> <text>7-20</text> </observationRange> </referenceRange> </observation> </component> < component> <observation moodCode="EVN" classCode="OBS"> < templateId root="06.27.840.1.291417.10.20.22.4.2" /> <id nullFlavor="NA " /> <code codeSystem="local" code="CREAT" displayName="CREATININE" /> <statusCode code="completed" /> <effectiveTime value= "581938105170" /> <value unit="mg/dL" xsi:type="PQ" value="0.6" /> <referenceRange> <observationRange> <text>0.6-1.0< /text> </observationRange> </referenceRange> </ observation> </component> <component> <observation moodCode= "EVN" classCode="OBS"> <templateId root="216.840.1.651959.10.4.2 " /> <id nullFlavor="NA" /> <code codeSystem="local" code="NA " displayName="SODIUM" /> <statusCode code="completed" /> < effectiveTime value="104017396952" /> <value unit="mmol/L" xsi:type="PQ " value="139" /> <referenceRange> <observationRange> <text>135-148</text> </observationRange> </ referenceRange> </observation> </component> <component> <observation moodCode="EVN" classCode="OBS"> <templateId root= "06.27.840.1.727024.02.28.22.4.2" /> <id nullFlavor="NA" /> < code codeSystem="local" code="CL" displayName="CHLORIDE" /> < statusCode code="completed" /> <effectiveTime value="889343094700" /> <value unit="mmol/L" xsi:type="PQ" value="101" /> < referenceRange> <observationRange> <text>98-110</text> </observationRange> </referenceRange> </observation> </component> <component> <observation moodCode="EVN" classCode ="OBS"> <templateId root="16.840.1.781244.10.22.4.2" /> < id nullFlavor="NA" /> <code codeSystem="local" code="AST" displayName= "AST/SGOT" /> <statusCode code="completed" /> <effectiveTime value="854648748304" /> <value unit="Units/L" xsi:type="PQ" value="38" /> <interpretationCode codeSystem="local" code="*" /> < referenceRange> <observationRange> <text>10-37</text> </observationRange> </referenceRange> </observation> </component> <component> <observation moodCode="EVN" classCode= "OBS"> <templateId root="216.840.1.814513.10..4.2" /> < id nullFlavor="NA" /> <code codeSystem="local" code="ALT" displayName= "ALT/SGPT" /> <statusCode code="completed" /> <effectiveTime value="443579652458" /> <value unit="Units/L" xsi:type="PQ" value="67" /> <interpretationCode codeSystem="local" code="*" /> < referenceRange> <observationRange> <text>< 66</text> </observationRange> </referenceRange> </observation > </component> <component> <observation moodCode="EVN" classCode="OBS"> <templateId root="06.27.840.1.009478.02.28.22.4.2" /> <id nullFlavor="NA" /> <code codeSystem="local" code="CO2" displayName="CARBON DIOXIDE" /> <statusCode code="completed" /> <effectiveTime value="824949498995" /> <value unit="mmol/L" xsi:type ="PQ" value="30" /> <referenceRange> <observationRange> <text>21-32</text> </observationRange> </ referenceRange> </observation> </component> <component> <observation moodCode="EVN" classCode="OBS"> <templateId root= "216.840.1.237280...4.2" /> <id nullFlavor="NA" /> < code codeSystem="local" code="TP" displayName="TOTAL PROTEIN" /> < statusCode code="completed" /> <effectiveTime value="020257325194" /> <value unit="gm/dL" xsi:type="PQ" value="6.7" /> < referenceRange> <observationRange> <text>6.4-8.2</text> </observationRange> </referenceRange> </observation > </component> <component> <observation moodCode="EVN" classCode="OBS"> <templateId root="216.840.1.351388.10..22.4.2" /> <id nullFlavor="NA" /> <code codeSystem="local" code="ALB" displayName="ALBUMIN" /> <statusCode code="completed" /> < effectiveTime value="625921948523" /> <value unit="gm/dL" xsi:type="PQ " value="2.9" /> <interpretationCode codeSystem="local" code="*" /> <referenceRange> <observationRange> <text>3.4-5.0 </text> </observationRange> </referenceRange> </ observation> </component> <component> <observation moodCode= "EVN" classCode="OBS"> <templateId root="16.840.1.103416.10..22.4.2 " /> <id nullFlavor="NA" /> <code codeSystem="local" code= "BILTOT" displayName="BILI TOTAL" /> <statusCode code="completed" /> <effectiveTime value="038424812410" /> <value unit="mg/dL" xsi: type="PQ" value="0.3" /> <referenceRange> <observationRange > <text>0.0-1.0</text> </observationRange> </ referenceRange> </observation> </component> <component> <observation moodCode="EVN" classCode="OBS"> <templateId root= "16.840.1.142599.10.4.2" /> <id nullFlavor="NA" /> < code codeSystem="local" code="ALKP" displayName="ALKALINE PHOSPHATASE TOTAL" /> <statusCode code="completed" /> <effectiveTime value= "540961381123" /> <value unit="IU/L" xsi:type="PQ" value="149" /> <interpretationCode codeSystem="local" code="*" /> <referenceRange > <observationRange> <text>45-117</text> </ observationRange> </referenceRange> </observation> </ component> <component> <observation moodCode="EVN" classCode="OBS"> <templateId root="840.1.655079.02.28.22.4.2" /> <id nullFlavor="NA" /> <code codeSystem="local" code="MB" displayName= "Microbiology" /> <statusCode code="completed" /> < effectiveTime value="063612660664" /> <value unit="" xsi:type="PQ" value="" /> <referenceRange> <observationRange> <text /> </observationRange> </referenceRange> </ observation> </component> </organizer> </entry> <entry> <organizer moodCode="EVN" classCode="BATTERY"> <templateId root= "16.840.1.625339.10..4.1" /> <id nullFlavor="NA" /> <code codeSystem="local" code="MAG" displayName="MAGNESIUM" /> <statusCode code= "completed" /> <component> <observation moodCode="EVN" classCode= "OBS"> <templateId root="06.27.840.1.208921.22.4.2" /> < id nullFlavor="NA" /> <code codeSystem="local" code="MAG" displayName= "MAGNESIUM" /> <statusCode code="completed" /> <effectiveTime value="223842216873" /> <value unit="mg/dL" xsi:type="PQ" value="1.8" / > <referenceRange> <observationRange> <text>1.8 -2.4</text> </observationRange> </referenceRange> </ observation> </component> </organizer> </entry> <entry> <organizer moodCode="EVN" classCode="BATTERY"> <templateId root= "06.27.840.1.021109..22.4.1" /> <id nullFlavor="NA" /> <code codeSystem="local" code="LIP" displayName="LIPASE" /> <statusCode code= "completed" /> <component> <observation moodCode="EVN" classCode= "OBS"> <templateId root="16.840.1.822644....4.2" /> < id nullFlavor="NA" /> <code codeSystem="local" code="LIP" displayName= "LIPASE" /> <statusCode code="completed" /> <effectiveTime value="834362783897" /> <value unit="Units/L" xsi:type="PQ" value="123 " /> <referenceRange> <observationRange> <text> 73-393</text> </observationRange> </referenceRange> < /observation> </component> </organizer> </entry> <entry> < organizer moodCode="EVN" classCode="BATTERY"> <templateId root= "06.27.840.1.862818.10..22.4.1" /> <id nullFlavor="NA" /> <code codeSystem="local" code="iCHEM8" displayName="CHEM/HEM PROFILE-BEDSIDE" /> <statusCode code="completed" /> <component> <observation moodCode= "EVN" classCode="OBS"> <templateId root="06.27.840.1.586876.1022.4.2 " /> <id nullFlavor="NA" /> <code codeSystem="local" code="K" displayName="POTASSIUM" /> <statusCode code="completed" /> < effectiveTime value="469053553176" /> <value unit="mmol/L" xsi:type="PQ " value="3.4" /> <interpretationCode codeSystem="local" code="*" /> <referenceRange> <observationRange> <text>3.5-5.3 </text> </observationRange> </referenceRange> </ observation> </component> <component> <observation moodCode= "EVN" classCode="OBS"> <templateId root="840.1.866894.02.28.22.4.2 " /> <id nullFlavor="NA" /> <code codeSystem="local" code= "CMETHOD" displayName="METHOD" /> <statusCode code="completed" /> <effectiveTime value="589168820316" /> <value unit="" xsi:type="PQ " value="Bedside" /> <referenceRange> <observationRange> <text /> </observationRange> </referenceRange> </observation> </component> <component> <observation moodCode="EVN" classCode="OBS"> <templateId root= "06.27.840.1.099562.1022.4.2" /> <id nullFlavor="NA" /> < code codeSystem="local" code="GAP" displayName="ANION GAP" /> < statusCode code="completed" /> <effectiveTime value="551543992623" /> <value unit="mmol/L" xsi:type="PQ" value="17" /> < referenceRange> <observationRange> <text>10-20</text> </observationRange> </referenceRange> </observation> </component> <component> <observation moodCode="EVN" classCode= "OBS"> <templateId root="06.27.840.1.530534.22.4.2" /> < id nullFlavor="NA" /> <code codeSystem="local" code="HMETHOD" displayName="METHOD" /> <statusCode code="completed" /> < effectiveTime value="344536999223" /> <value unit="" xsi:type="PQ" value="Bedside" /> <referenceRange> <observationRange> <text /> </observationRange> </referenceRange> </observation> </component> <component> <observation moodCode="EVN" classCode="OBS"> <templateId root= "06.27.840.1.300927.02.28.22.4.2" /> <id nullFlavor="NA" /> < code codeSystem="local" code="GLU" displayName="GLUCOSE" /> < statusCode code="completed" /> <effectiveTime value="456013189684" /> <value unit="mg/dL" xsi:type="PQ" value="77" /> < referenceRange> <observationRange> <text>70-99</text> </observationRange> </referenceRange> </observation> </component> <component> <observation moodCode="EVN" classCode= "OBS"> <templateId root="06.27.840.1.780157..2022.4.2" /> < id nullFlavor="NA" /> <code codeSystem="local" code="BUN" displayName= "BLOOD UREA NITROGEN" /> <statusCode code="completed" /> < effectiveTime value="751372249358" /> <value unit="mg/dL" xsi:type="PQ " value="5" /> <interpretationCode codeSystem="local" code="*" /> <referenceRange> <observationRange> <text>7-20</ text> </observationRange> </referenceRange> </ observation> </component> <component> <observation moodCode= "EVN" classCode="OBS"> <templateId root="2.16.840.1.196928.10.20.22.4.2 " /> <id nullFlavor="NA" /> <code codeSystem="local" code= "CREAT" displayName="CREATININE" /> <statusCode code="completed" /> <effectiveTime value="614546194870" /> <value unit="mg/dL" xsi: type="PQ" value="0.6" /> <referenceRange> <observationRange > <text>0.6-1.0</text> </observationRange> </ referenceRange> </observation> </component> <component> <observation moodCode="EVN" classCode="OBS"> <templateId root= "2.16.840.1.933137.10.20.22.4.2" /> <id nullFlavor="NA" /> < code codeSystem="local" code="HGBT" displayName="HEMOGLOBIN" /> < statusCode code="completed" /> <effectiveTime value="383713155157" /> <value unit="gm/dL" xsi:type="PQ" value="8.5" /> < interpretationCode codeSystem="local" code="*" /> <referenceRange> <observationRange> <text>12.0-16.0</text> </ observationRange> </referenceRange> </observation> </ component> <component> <observation moodCode="EVN" classCode="OBS"> <templateId root="216.840.1.437155.10.20.22.4.2" /> <id nullFlavor="NA" /> <code codeSystem="local" code="HCTT" displayName= "HEMATOCRIT" /> <statusCode code="completed" /> < effectiveTime value="154318648264" /> <value unit="%" xsi:type="PQ " value="25.0" /> <interpretationCode codeSystem="local" code="*" /> <referenceRange> <observationRange> <text>37.0- 47.0</text> </observationRange> </referenceRange> </ observation> </component> <component> <observation moodCode= "EVN" classCode="OBS"> <templateId root="216.840.1.340908.10...4.2 " /> <id nullFlavor="NA" /> <code codeSystem="local" code="NA " displayName="SODIUM" /> <statusCode code="completed" /> < effectiveTime value="626138139781" /> <value unit="mmol/L" xsi:type="PQ " value="138" /> <referenceRange> <observationRange> <text>135-148</text> </observationRange> </ referenceRange> </observation> </component> <component> <observation moodCode="EVN" classCode="OBS"> <templateId root= "216.840.1.418332.10.20.22.4.2" /> <id nullFlavor="NA" /> < code codeSystem="local" code="CL" displayName="CHLORIDE" /> < statusCode code="completed" /> <effectiveTime value="907428048648" /> <value unit="mmol/L" xsi:type="PQ" value="100" /> < referenceRange> <observationRange> <text>98-110</text> </observationRange> </referenceRange> </observation> </component> <component> <observation moodCode="EVN" classCode ="OBS"> <templateId root="216.840.1.753996.10..4.2" /> < id nullFlavor="NA" /> <code codeSystem="local" code="CO2" displayName= "CARBON DIOXIDE" /> <statusCode code="completed" /> < effectiveTime value="326910442806" /> <value unit="mmol/L" xsi:type="PQ " value="25" /> <referenceRange> <observationRange> <text>21-32</text> </observationRange> </ referenceRange> </observation> </component> <component> <observation moodCode="EVN" classCode="OBS"> <templateId root= "06.27.840.1.369885.02.28.22.4.2" /> <id nullFlavor="NA" /> < code codeSystem="local" code="CAION" displayName="CALCIUM IONIZED" /> < statusCode code="completed" /> <effectiveTime value="498480013420" /> <value unit="mg/dL" xsi:type="PQ" value="4.7" /> < referenceRange> <observationRange> <text>4.5-5.3</text> </observationRange> </referenceRange> </observation > </component> <component> <observation moodCode="EVN" classCode="OBS"> <templateId root="06.27.840.1.969642...4.2" /> <id nullFlavor="NA" /> <code codeSystem="local" code="MB" displayName="Microbiology" /> <statusCode code="completed" /> <effectiveTime value="339119378228" /> <value unit="" xsi:type="PQ" value="" /> <referenceRange> <observationRange> <text /> </observationRange> </referenceRange> </ observation> </component> </organizer> </entry> <entry> <organizer moodCode="EVN" classCode="BATTERY"> <templateId root= "06.27.840.1.209068.10..22.4.1" /> <id nullFlavor="NA" /> <code codeSystem="local" code="UANRC" displayName="URINALYSIS, NO REFLEX CULTURE" /> <statusCode code="completed" /> <component> <observation moodCode="EVN" classCode="OBS"> <templateId root= "06.27.840.1.047054.10...4.2" /> <id nullFlavor="NA" /> < code codeSystem="local" code="LEUESU" displayName="UA LEUKOCYTE ESTERASE DIPSTICK" /> <statusCode code="completed" /> <effectiveTime value="369995053258" /> <value unit="" xsi:type="PQ" value="2+" /> <interpretationCode codeSystem="local" code="*" /> < referenceRange> <observationRange> <text>NEGATIVE</text > </observationRange> </referenceRange> </observation > </component> <component> <observation moodCode="EVN" classCode="OBS"> <templateId root="06.27.840.1.818817.10..4.2" /> <id nullFlavor="NA" /> <code codeSystem="local" code="NITRIU" displayName="UA NITRITE DIPSTICK" /> <statusCode code="completed" /> <effectiveTime value="857529499815" /> <value unit="" xsi:type= "PQ" value="NEGATIVE" /> <referenceRange> <observationRange > <text>NEGATIVE</text> </observationRange> </ referenceRange> </observation> </component> <component> <observation moodCode="EVN" classCode="OBS"> <templateId root= "216.840.1.506911.10.4.2" /> <id nullFlavor="NA" /> < code codeSystem="local" code="PROTEIU" displayName="UA PROTEIN DIPSTICK" /> <statusCode code="completed" /> <effectiveTime value= "" /> <value unit="" xsi:type="PQ" value="1+" /> < interpretationCode codeSystem="local" code="*" /> <referenceRange> <observationRange> <text>NEGATIVE</text> </ observationRange> </referenceRange> </observation> </ component> <component> <observation moodCode="EVN" classCode="OBS"> <templateId root="06.27.840.1.732807.02.28.22.4.2" /> <id nullFlavor="NA" /> <code codeSystem="local" code="DGLUU" displayName= "UA GLUCOSE DIPSTICK" /> <statusCode code="completed" /> < effectiveTime value="" /> <value unit="" xsi:type="PQ" value="NEGATIVE" /> <referenceRange> <observationRange> <text>NEGATIVE</text> </observationRange> </ referenceRange> </observation> </component> <component> <observation moodCode="EVN" classCode="OBS"> <templateId root= "06.27.840.1.292395.02.28.22.4.2" /> <id nullFlavor="NA" /> < code codeSystem="local" code="KETONU" displayName="UA KETONE DIPSTICK" /> <statusCode code="completed" /> <effectiveTime value=" " /> <value unit="" xsi:type="PQ" value="NEGATIVE" /> < referenceRange> <observationRange> <text>NEGATIVE</text > </observationRange> </referenceRange> </observation > </component> <component> <observation moodCode="EVN" classCode="OBS"> <templateId root="16.840.1.124615.02.28.22.4.2" /> <id nullFlavor="NA" /> <code codeSystem="local" code="UROBILU " displayName="UA UROBILINOGEN DIPSTICK" /> <statusCode code="completed " /> <effectiveTime value="" /> <value unit="" xsi :type="PQ" value="NORMAL" /> <referenceRange> < observationRange> <text>NORMAL</text> </observationRange > </referenceRange> </observation> </component> < component> <observation moodCode="EVN" classCode="OBS"> < templateId root="06.27.840.1.584194.02.28.22.4.2" /> <id nullFlavor="NA " /> <code codeSystem="local" code="BILU" displayName="UA BILIRUBIN DIPSTICK" /> <statusCode code="completed" /> <effectiveTime value="" /> <value unit="" xsi:type="PQ" value="NEGATIVE" / > <referenceRange> <observationRange> <text> NEGATIVE</text> </observationRange> </referenceRange> </observation> </component> <component> <observation moodCode ="EVN" classCode="OBS"> <templateId root= "16.840.1.317661...4.2" /> <id nullFlavor="NA" /> < code codeSystem="local" code="NOLVIA" displayName="UA BLOOD DIPSTICK" /> < statusCode code="completed" /> <effectiveTime value="143925677955" /> <value unit="" xsi:type="PQ" value="1+" /> < interpretationCode codeSystem="local" code="*" /> <referenceRange> <observationRange> <text>NEGATIVE</text> </ observationRange> </referenceRange> </observation> </ component> <component> <observation moodCode="EVN" classCode="OBS"> <templateId root="216.840.1.795614.10..22.4.2" /> <id nullFlavor="NA" /> <code codeSystem="local" code="SPGRU" displayName= "UA SPECIFIC GRAVITY" /> <statusCode code="completed" /> < effectiveTime value="034727317297" /> <value unit="" xsi:type="PQ" value="1.010" /> <interpretationCode codeSystem="local" code="*" /> <referenceRange> <observationRange> <text>1.015- 1.025</text> </observationRange> </referenceRange> </ observation> </component> <component> <observation moodCode= "EVN" classCode="OBS"> <templateId root="216.840.1.943546.10..22.4.2 " /> <id nullFlavor="NA" /> <code codeSystem="local" code="DIETER " displayName="UR PH" /> <statusCode code="completed" /> < effectiveTime value="394554481886" /> <value unit="" xsi:type="PQ" value="8.0" /> <interpretationCode codeSystem="local" code="*" /> <referenceRange> <observationRange> <text>5.0-7.0</ text> </observationRange> </referenceRange> </ observation> </component> </organizer> </entry> <entry> <organizer moodCode="EVN" classCode="BATTERY"> <templateId root= "216.840.1.285591.02.28.22.4.1" /> <id nullFlavor="NA" /> <code codeSystem="local" code="UAMICRO" displayName="UA MICROSCOPIC" /> < statusCode code="completed" /> <component> <observation moodCode= "EVN" classCode="OBS"> <templateId root="216.840.1.853232.10...4.2 " /> <id nullFlavor="NA" /> <code codeSystem="local" code= "BACU" displayName="UA BACTERIA" /> <statusCode code="completed" /> <effectiveTime value="462915359568" /> <value unit="" xsi:type= "PQ" value="2+" /> <interpretationCode codeSystem="local" code="*" /> <referenceRange> <observationRange> <text> NEGATIVE</text> </observationRange> </referenceRange> </observation> </component> <component> <observation moodCode ="EVN" classCode="OBS"> <templateId root= "216.840.1.828623.02.28.22.4.2" /> <id nullFlavor="NA" /> < code codeSystem="local" code="EPIU" displayName="UA EPITHELIAL CELLS" /> <statusCode code="completed" /> <effectiveTime value="363414848132" /> <value unit="epi/hpf" xsi:type="PQ" value="1+" /> < referenceRange> <observationRange> <text>0 - 1+</text> </observationRange> </referenceRange> </observation> </component> <component> <observation moodCode="EVN" classCode ="OBS"> <templateId root="16.840.1.501263.10..22.4.2" /> < id nullFlavor="NA" /> <code codeSystem="local" code="MUCUSU" displayName="UA MUCUS" /> <statusCode code="completed" /> < effectiveTime value="" /> <value unit="" xsi:type="PQ" value="2+" /> <interpretationCode codeSystem="local" code="*" /> <referenceRange> <observationRange> <text>NEG TO 1+< /text> </observationRange> </referenceRange> </ observation> </component> <component> <observation moodCode= "EVN" classCode="OBS"> <templateId root="06.27.840.1.102742.02.28.22.4.2 " /> <id nullFlavor="NA" /> <code codeSystem="local" code= "RBCU" displayName="UA RBC" /> <statusCode code="completed" /> <effectiveTime value="" /> <value unit="rbc/hpf" xsi:type ="PQ" value="0-3" /> <referenceRange> <observationRange> <text>0 - 3</text> </observationRange> </ referenceRange> </observation> </component> <component> <observation moodCode="EVN" classCode="OBS"> <templateId root= "06.27.840.1.339785.10.22.4.2" /> <id nullFlavor="NA" /> < code codeSystem="local" code="UAVOL" displayName="UA VOLUME FOR EXAM" /> <statusCode code="completed" /> <effectiveTime value="" /> <value unit="mL" xsi:type="PQ" value="12.0" /> < referenceRange> <observationRange> <text>(12mL STD)</ text> </observationRange> </referenceRange> </ observation> </component> <component> <observation moodCode= "EVN" classCode="OBS"> <templateId root="06.27.840.1.372217.10..22.4.2 " /> <id nullFlavor="NA" /> <code codeSystem="local" code= "WBCU" displayName="UA WBC" /> <statusCode code="completed" /> <effectiveTime value="854340442875" /> <value unit="wbc/hpf" xsi:type ="PQ" value="5-10" /> <interpretationCode codeSystem="local" code="*" / > <referenceRange> <observationRange> <text>0 - 5</text> </observationRange> </referenceRange> </ observation> </component> </organizer> </entry> <entry> <organizer moodCode="EVN" classCode="BATTERY"> <templateId root= "06.27.840.1.772475.10...4.1" /> <id nullFlavor="NA" /> <code codeSystem="local" code="CBCD" displayName="CBC W/DIFF" /> <statusCode code ="completed" /> <component> <observation moodCode="EVN" classCode= "OBS"> <templateId root="06.27.840.1.481295.10..22.4.2" /> < id nullFlavor="NA" /> <code codeSystem="local" code="BA#" displayName= "BASOPHIL #" /> <statusCode code="completed" /> < effectiveTime value="007768517085" /> <value unit="k/cumm" xsi:type="PQ " value="0.0" /> <referenceRange> <observationRange> <text>0.0-0.2</text> </observationRange> </ referenceRange> </observation> </component> <component> <observation moodCode="EVN" classCode="OBS"> <templateId root= "216.840.1.871468.10.4.2" /> <id nullFlavor="NA" /> < code codeSystem="local" code="BA%" displayName="BASOPHIL %" /> <statusCode code="completed" /> <effectiveTime value="421076727349" /> <value unit="%" xsi:type="PQ" value="1" /> < referenceRange> <observationRange> <text>0-1</text> </observationRange> </referenceRange> </observation> </component> <component> <observation moodCode="EVN" classCode= "OBS"> <templateId root="06.27.840.1.738773.02.28.224.2" /> < id nullFlavor="NA" /> <code codeSystem="local" code="EO#" displayName= "EOSINOPHIL #" /> <statusCode code="completed" /> < effectiveTime value="226900945520" /> <value unit="k/cumm" xsi:type="PQ " value="0.2" /> <referenceRange> <observationRange> <text>0.1-0.5</text> </observationRange> </ referenceRange> </observation> </component> <component> <observation moodCode="EVN" classCode="OBS"> <templateId root= "216.840.1.900185.02.28.22.4.2" /> <id nullFlavor="NA" /> < code codeSystem="local" code="EO%" displayName="EOSINOPHIL %" /> <statusCode code="completed" /> <effectiveTime value="340036173307" /> <value unit="%" xsi:type="PQ" value="4" /> < referenceRange> <observationRange> <text>2-4</text> </observationRange> </referenceRange> </observation> </component> <component> <observation moodCode="EVN" classCode= "OBS"> <templateId root="216.840.1.818689.10...4.2" /> < id nullFlavor="NA" /> <code codeSystem="local" code="GR#" displayName= "GRANULOCYTE #" /> <statusCode code="completed" /> < effectiveTime value="974613507085" /> <value unit="k/cumm" xsi:type="PQ " value="4.1" /> <referenceRange> <observationRange> <text>2.0-9.0</text> </observationRange> </ referenceRange> </observation> </component> <component> <observation moodCode="EVN" classCode="OBS"> <templateId root= "06.27.840.1.626519.10..4.2" /> <id nullFlavor="NA" /> < code codeSystem="local" code="GR%" displayName="GRANULOCYTE %" /> <statusCode code="completed" /> <effectiveTime value="129777484156 " /> <value unit="%" xsi:type="PQ" value="60" /> < referenceRange> <observationRange> <text>50-75</text> </observationRange> </referenceRange> </observation> </component> <component> <observation moodCode="EVN" classCode= "OBS"> <templateId root="216.840.1.600257.10...4.2" /> < id nullFlavor="NA" /> <code codeSystem="local" code="LY#" displayName= "LYMPHOCYTE #" /> <statusCode code="completed" /> < effectiveTime value="049911357714" /> <value unit="k/cumm" xsi:type="PQ " value="1.9" /> <referenceRange> <observationRange> <text>1.0-4.0</text> </observationRange> </ referenceRange> </observation> </component> <component> <observation moodCode="EVN" classCode="OBS"> <templateId root= "2.16.840.1.494377.10..4.2" /> <id nullFlavor="NA" /> < code codeSystem="local" code="LY%" displayName="LYMPHOCYTE %" /> <statusCode code="completed" /> <effectiveTime value="860801987172" /> <value unit="%" xsi:type="PQ" value="27" /> < referenceRange> <observationRange> <text>20-30</text> </observationRange> </referenceRange> </observation> </component> <component> <observation moodCode="EVN" classCode= "OBS"> <templateId root="2.16.840.1.196936.10..4.2" /> < id nullFlavor="NA" /> <code codeSystem="local" code="MCH" displayName= "MEAN CELL HGB" /> <statusCode code="completed" /> < effectiveTime value="863765105368" /> <value unit="pg" xsi:type="PQ" value="30.0" /> <referenceRange> <observationRange> <text>27.0-33.0</text> </observationRange> </ referenceRange> </observation> </component> <component> <observation moodCode="EVN" classCode="OBS"> <templateId root= "06.27.840.1.860597.10.20.22.4.2" /> <id nullFlavor="NA" /> < code codeSystem="local" code="MCHC" displayName="MEAN CELL HGB CONCENTRATION" / > <statusCode code="completed" /> <effectiveTime value= "" /> <value unit="g/dL" xsi:type="PQ" value="33.8" /> <referenceRange> <observationRange> <text>32.0- 37.0</text> </observationRange> </referenceRange> </ observation> </component> <component> <observation moodCode= "EVN" classCode="OBS"> <templateId root="840.1.916243.10.22.4.2 " /> <id nullFlavor="NA" /> <code codeSystem="local" code="MCV " displayName="MEAN CELL VOLUME" /> <statusCode code="completed" /> <effectiveTime value="" /> <value unit="fl" xsi:type ="PQ" value="88.8" /> <referenceRange> <observationRange> <text>80.0-100.0</text> </observationRange> </ referenceRange> </observation> </component> <component> <observation moodCode="EVN" classCode="OBS"> <templateId root= "06.27.840.1.976935.10.2022.4.2" /> <id nullFlavor="NA" /> < code codeSystem="local" code="MO#" displayName="MONOCYTE #" /> < statusCode code="completed" /> <effectiveTime value="893933114317" /> <value unit="k/cumm" xsi:type="PQ" value="0.6" /> < referenceRange> <observationRange> <text>0.1-1.0</text> </observationRange> </referenceRange> </observation > </component> <component> <observation moodCode="EVN" classCode="OBS"> <templateId root="06.27.840.1.643603.10.20.22.4.2" /> <id nullFlavor="NA" /> <code codeSystem="local" code="MO% " displayName="MONOCYTE %" /> <statusCode code="completed" /> <effectiveTime value="742317240063" /> <value unit="%" xsi: type="PQ" value="9" /> <interpretationCode codeSystem="local" code="*" /> <referenceRange> <observationRange> <text>4- 6</text> </observationRange> </referenceRange> </ observation> </component> <component> <observation moodCode= "EVN" classCode="OBS"> <templateId root="06.27.840.1.782370.10.20.22.4.2 " /> <id nullFlavor="NA" /> <code codeSystem="local" code="RBC " displayName="RED BLOOD CELL" /> <statusCode code="completed" /> <effectiveTime value="051956088116" /> <value unit="m/cumm" xsi: type="PQ" value="3.57" /> <interpretationCode codeSystem="local" code= "*" /> <referenceRange> <observationRange> < text>4.00-6.00</text> </observationRange> </referenceRange> </observation> </component> <component> <observation moodCode="EVN" classCode="OBS"> <templateId root= "06.27.840.1.161090.10.20.22.4.2" /> <id nullFlavor="NA" /> < code codeSystem="local" code="RDW" displayName="RED CELL DISTRIBUTION WIDTH" /> <statusCode code="completed" /> <effectiveTime value= "377989748759" /> <value unit="%" xsi:type="PQ" value="13.5" /> <referenceRange> <observationRange> <text>11.0- 15.6</text> </observationRange> </referenceRange> </ observation> </component> <component> <observation moodCode= "EVN" classCode="OBS"> <templateId root="216.840.1.453957.10..22.4.2 " /> <id nullFlavor="NA" /> <code codeSystem="local" code="WBC " displayName="WHITE BLOOD CELL" /> <statusCode code="completed" /> <effectiveTime value="477437270833" /> <value unit="k/cumm" xsi: type="PQ" value="6.9" /> <referenceRange> <observationRange > <text>5.0-10.0</text> </observationRange> </ referenceRange> </observation> </component> <component> <observation moodCode="EVN" classCode="OBS"> <templateId root= "216.840.1.050051.10.20.22.4.2" /> <id nullFlavor="NA" /> < code codeSystem="local" code="HGBT" displayName="HEMOGLOBIN" /> < statusCode code="completed" /> <effectiveTime value="915411120861" /> <value unit="gm/dL" xsi:type="PQ" value="10.7" /> < interpretationCode codeSystem="local" code="*" /> <referenceRange> <observationRange> <text>12.0-16.0</text> </ observationRange> </referenceRange> </observation> </ component> <component> <observation moodCode="EVN" classCode="OBS"> <templateId root="2.16.840.1.997071.10..22.4.2" /> <id nullFlavor="NA" /> <code codeSystem="local" code="HCTT" displayName= "HEMATOCRIT" /> <statusCode code="completed" /> < effectiveTime value="333457729451" /> <value unit="%" xsi:type="PQ " value="31.7" /> <interpretationCode codeSystem="local" code="*" /> <referenceRange> <observationRange> <text>37.0- 47.0</text> </observationRange> </referenceRange> </ observation> </component> <component> <observation moodCode= "EVN" classCode="OBS"> <templateId root="2.16.840.1.779721.02.28.22.4.2 " /> <id nullFlavor="NA" /> <code codeSystem="local" code="PLT " displayName="PLATELET COUNT" /> <statusCode code="completed" /> <effectiveTime value="356895776478" /> <value unit="k/cumm" xsi: type="PQ" value="275" /> <referenceRange> <observationRange > <text>150-450</text> </observationRange> </ referenceRange> </observation> </component> </organizer> </entry > <entry> <organizer moodCode="EVN" classCode="BATTERY"> <templateId root="2.16.840.1.448258.10..22.4.1" /> <id nullFlavor="NA" /> <code codeSystem="local" code="PREG" displayName=" TEST, SERUM" /> < statusCode code="completed" /> <component> <observation moodCode= "EVN" classCode="OBS"> <templateId root="16.840.1.440315.02.28.22.4.2 " /> <id nullFlavor="NA" /> <code codeSystem="local" code= "PREG" displayName=" TEST, SERUM" /> <statusCode code= "completed" /> <effectiveTime value="050134008289" /> <value unit="" xsi:type="PQ" value="NEGATIVE" /> <referenceRange> < observationRange> <text>NEGATIVE</text> </ observationRange> </referenceRange> </observation> </ component> </organizer> </entry> <entry> <organizer moodCode="EVN" classCode="BATTERY"> <templateId root="06.27.840.1.658556.02.28.22.4.1" /> <id nullFlavor="NA" /> <code codeSystem="local" code="PT" displayName= "PROTHROMBIN TIME WITH INR" /> <statusCode code="completed" /> < component> <observation moodCode="EVN" classCode="OBS"> < templateId root="06.27.840.1.486125.02.28.22.4.2" /> <id nullFlavor="NA " /> <code codeSystem="local" code="INRX" displayName="INTERNATIONAL NORMAL RATIO" /> <statusCode code="completed" /> < effectiveTime value="867947043457" /> <value unit="" xsi:type="PQ" value="1.1" /> <referenceRange> <observationRange> <text>0.9-1.1</text> </observationRange> </ referenceRange> </observation> </component> <component> <observation moodCode="EVN" classCode="OBS"> <templateId root= "16.840.1.006706.02.28.22.4.2" /> <id nullFlavor="NA" /> < code codeSystem="local" code="PTPAT" displayName="PROTHROMBIN TIME" /> <statusCode code="completed" /> <effectiveTime value="916725367074" /> <value unit="sec" xsi:type="PQ" value="12.3" /> < referenceRange> <observationRange> <text>10.0-12.9</text > </observationRange> </referenceRange> </observation > </component> </organizer> </entry> <entry> <organizer moodCode= "EVN" classCode="BATTERY"> <templateId root="216.840.1.864162.10..22.4.1 " /> <id nullFlavor="NA" /> <code codeSystem="local" code="PTT" displayName="PARTIAL THROMBOPLASTIN TIME" /> <statusCode code="completed" / > <component> <observation moodCode="EVN" classCode="OBS"> <templateId root="216.840.1.497459.10.20.22.4.2" /> <id nullFlavor="NA " /> <code codeSystem="local" code="PTT" displayName="PARTIAL THROMBOPLASTIN TIME" /> <statusCode code="completed" /> < effectiveTime value="140123084593" /> <value unit="sec" xsi:type="PQ" value="33" /> <referenceRange> <observationRange> <text>25-37</text> </observationRange> </referenceRange > </observation> </component> </organizer> </entry> <entry> <organizer moodCode="EVN" classCode="BATTERY"> <templateId root= "216.840.1.741191.10.20.22.4.1" /> <id nullFlavor="NA" /> <code codeSystem="local" code="METABC" displayName="METABOLIC PANEL, COMPREHN" /> <statusCode code="completed" /> <component> <observation moodCode= "EVN" classCode="OBS"> <templateId root="16.840.1.261426.10.4.2 " /> <id nullFlavor="NA" /> <code codeSystem="local" code="K" displayName="POTASSIUM" /> <statusCode code="completed" /> < effectiveTime value="575671232995" /> <value unit="mmol/L" xsi:type="PQ " value="3.1" /> <interpretationCode codeSystem="local" code="*" /> <referenceRange> <observationRange> <text>3.5-5.3 </text> </observationRange> </referenceRange> </ observation> </component> <component> <observation moodCode= "EVN" classCode="OBS"> <templateId root="06.27.840.1.160372.02.28.22.4.2 " /> <id nullFlavor="NA" /> <code codeSystem="local" code= "eGFR" displayName="EST GFR (MDRD)" /> <statusCode code="completed" /> <effectiveTime value="201564925294" /> <value unit="mL/min" xsi:type="PQ" value="> 60" /> <referenceRange> < observationRange> <text>> 59</text> </ observationRange> </referenceRange> </observation> </ component> <component> <observation moodCode="EVN" classCode="OBS"> <templateId root="06.27.840.1.268396.02.28.22.4.2" /> <id nullFlavor="NA" /> <code codeSystem="local" code="GAP" displayName= "ANION GAP" /> <statusCode code="completed" /> <effectiveTime value="224798334535" /> <value unit="mmol/L" xsi:type="PQ" value="11" / > <referenceRange> <observationRange> <text>5- 15</text> </observationRange> </referenceRange> </ observation> </component> <component> <observation moodCode= "EVN" classCode="OBS"> <templateId root="216.840.1.963218.10..22.4.2 " /> <id nullFlavor="NA" /> <code codeSystem="local" code= "eCrCl" displayName="EST CrCl (CG)" /> <statusCode code="completed" /> <effectiveTime value="260953969750" /> <value unit="mL/min" xsi:type="PQ" value="> 60" /> <referenceRange> < observationRange> <text>> 59</text> </ observationRange> </referenceRange> </observation> </ component> <component> <observation moodCode="EVN" classCode="OBS"> <templateId root="216.840.1.450428.10...4.2" /> <id nullFlavor="NA" /> <code codeSystem="local" code="GLU" displayName= "GLUCOSE" /> <statusCode code="completed" /> <effectiveTime value="709532571673" /> <value unit="mg/dL" xsi:type="PQ" value="82" / > <referenceRange> <observationRange> <text>70- 99</text> </observationRange> </referenceRange> </ observation> </component> <component> <observation moodCode= "EVN" classCode="OBS"> <templateId root="216.840.1.818806.10..22.4.2 " /> <id nullFlavor="NA" /> <code codeSystem="local" code="CA " displayName="CALCIUM" /> <statusCode code="completed" /> < effectiveTime value="466004497934" /> <value unit="mg/dL" xsi:type="PQ " value="9.0" /> <referenceRange> <observationRange> <text>8.5-10.1</text> </observationRange> </ referenceRange> </observation> </component> <component> <observation moodCode="EVN" classCode="OBS"> <templateId root= "06.27.840.1.828350.10.20.22.4.2" /> <id nullFlavor="NA" /> < code codeSystem="local" code="BUN" displayName="BLOOD UREA NITROGEN" /> <statusCode code="completed" /> <effectiveTime value="100475332748" / > <value unit="mg/dL" xsi:type="PQ" value="16" /> < referenceRange> <observationRange> <text>7-20</text> </observationRange> </referenceRange> </observation> </component> <component> <observation moodCode="EVN" classCode= "OBS"> <templateId root="06.27.840.1.387808.10..22.4.2" /> < id nullFlavor="NA" /> <code codeSystem="local" code="CREAT" displayName ="CREATININE" /> <statusCode code="completed" /> < effectiveTime value="185477624063" /> <value unit="mg/dL" xsi:type="PQ " value="0.9" /> <referenceRange> <observationRange> <text>0.6-1.0</text> </observationRange> </ referenceRange> </observation> </component> <component> <observation moodCode="EVN" classCode="OBS"> <templateId root= "06.27.830.1.711464.10..22.4.2" /> <id nullFlavor="NA" /> < code codeSystem="local" code="NA" displayName="SODIUM" /> <statusCode code="completed" /> <effectiveTime value="977965686075" /> < value unit="mmol/L" xsi:type="PQ" value="144" /> <referenceRange> <observationRange> <text>135-148</text> </ observationRange> </referenceRange> </observation> </ component> <component> <observation moodCode="EVN" classCode="OBS"> <templateId root="2.16.840.1.047323.10..22.4.2" /> <id nullFlavor="NA" /> <code codeSystem="local" code="CL" displayName= "CHLORIDE" /> <statusCode code="completed" /> <effectiveTime value="363445050656" /> <value unit="mmol/L" xsi:type="PQ" value="103" /> <referenceRange> <observationRange> <text>98 -110</text> </observationRange> </referenceRange> </ observation> </component> <component> <observation moodCode= "EVN" classCode="OBS"> <templateId root="216.840.1.771403.10..22.4.2 " /> <id nullFlavor="NA" /> <code codeSystem="local" code="AST " displayName="AST/SGOT" /> <statusCode code="completed" /> < effectiveTime value="639560410322" /> <value unit="Units/L" xsi:type= "PQ" value="14" /> <referenceRange> <observationRange> <text>10-37</text> </observationRange> </ referenceRange> </observation> </component> <component> <observation moodCode="EVN" classCode="OBS"> <templateId root= "216.840.1.217823.10..4.2" /> <id nullFlavor="NA" /> < code codeSystem="local" code="ALT" displayName="ALT/SGPT" /> < statusCode code="completed" /> <effectiveTime value="607059899099" /> <value unit="Units/L" xsi:type="PQ" value="9" /> < referenceRange> <observationRange> <text>< 66</text> </observationRange> </referenceRange> </observation > </component> <component> <observation moodCode="EVN" classCode="OBS"> <templateId root="16.840.1.819865.10..4.2" /> <id nullFlavor="NA" /> <code codeSystem="local" code="CO2" displayName="CARBON DIOXIDE" /> <statusCode code="completed" /> <effectiveTime value="116980716772" /> <value unit="mmol/L" xsi:type ="PQ" value="30" /> <referenceRange> <observationRange> <text>21-32</text> </observationRange> </ referenceRange> </observation> </component> <component> <observation moodCode="EVN" classCode="OBS"> <templateId root= "16.840.1.026735.10..22.4.2" /> <id nullFlavor="NA" /> < code codeSystem="local" code="TP" displayName="TOTAL PROTEIN" /> < statusCode code="completed" /> <effectiveTime value="070944914691" /> <value unit="gm/dL" xsi:type="PQ" value="6.8" /> < referenceRange> <observationRange> <text>6.4-8.2</text> </observationRange> </referenceRange> </observation > </component> <component> <observation moodCode="EVN" classCode="OBS"> <templateId root="16.840.1.791006.10..4.2" /> <id nullFlavor="NA" /> <code codeSystem="local" code="ALB" displayName="ALBUMIN" /> <statusCode code="completed" /> < effectiveTime value="407218656106" /> <value unit="gm/dL" xsi:type="PQ " value="3.6" /> <referenceRange> <observationRange> <text>3.4-5.0</text> </observationRange> </ referenceRange> </observation> </component> <component> <observation moodCode="EVN" classCode="OBS"> <templateId root= "06.27.840.1.925668.02.28.22.4.2" /> <id nullFlavor="NA" /> < code codeSystem="local" code="BILTOT" displayName="BILI TOTAL" /> < statusCode code="completed" /> <effectiveTime value="412000660261" /> <value unit="mg/dL" xsi:type="PQ" value="0.3" /> < referenceRange> <observationRange> <text>0.0-1.0</text> </observationRange> </referenceRange> </observation > </component> <component> <observation moodCode="EVN" classCode="OBS"> <templateId root="06.27.840.1.842950.02.28.22.4.2" /> <id nullFlavor="NA" /> <code codeSystem="local" code="ALKP" displayName="ALKALINE PHOSPHATASE TOTAL" /> <statusCode code="completed " /> <effectiveTime value="056689772897" /> <value unit="IU/L " xsi:type="PQ" value="66" /> <referenceRange> < observationRange> <text>45-117</text> </observationRange > </referenceRange> </observation> </component> </ organizer> </entry> <entry> <organizer moodCode="EVN" classCode="BATTERY"> <templateId root="216.840.1.207514.10..22.4.1" /> <id nullFlavor= "NA" /> <code codeSystem="local" code="TSH" displayName="THYROID STIM HORMONE (TSH)" /> <statusCode code="completed" /> <component> < observation moodCode="EVN" classCode="OBS"> <templateId root= "2.16.840.1.202864.10..22.4.2" /> <id nullFlavor="NA" /> < code codeSystem="local" code="TSH" displayName="THYROID STIM HORMONE (TSH)" /> <statusCode code="completed" /> <effectiveTime value= "123579338657" /> <value unit="uIU/mL" xsi:type="PQ" value="2.48" /> <referenceRange> <observationRange> <text>0.34- 4.82</text> </observationRange> </referenceRange> </ observation> </component> </organizer> </entry> <entry> <organizer moodCode="EVN" classCode="BATTERY"> <templateId root= "216.840.1.911185.10..22.4.1" /> <id nullFlavor="NA" /> <code codeSystem="local" code="ORD68" displayName="Urinalysis" /> <statusCode code="completed" /> <component> <observation moodCode="EVN" classCode="OBS"> <templateId root="216.840.1.662058.10..22.4.2" /> <id nullFlavor="NA" /> <code codeSystem="local" code="Hmg8859 " displayName="Icotest" /> <statusCode code="completed" /> < effectiveTime value="868002672634" /> <value unit="" xsi:type="PQ" value="N/A" /> <interpretationCode codeSystem="local" code="A" /> <referenceRange> <observationRange> <text>Negative< /text> </observationRange> </referenceRange> </ observation> </component> <component> <observation moodCode= "EVN" classCode="OBS"> <templateId root="06.27.840.1.572197.10..22.4.2 " /> <id nullFlavor="NA" /> <code codeSystem="local" code= "Bex935" displayName="Urine Crystals" /> <statusCode code="completed" / > <effectiveTime value="664754162014" /> <value unit="" xsi: type="PQ" value="Amorphous material: abundant/HPF" /> <referenceRange> <observationRange> <text /> </ observationRange> </referenceRange> </observation> </ component> <component> <observation moodCode="EVN" classCode="OBS"> <templateId root="06.27.840.1.880773.10..22.4.2" /> <id nullFlavor="NA" /> <code codeSystem="local" code="Amu017" displayName= "Urine Volume" /> <statusCode code="completed" /> < effectiveTime value="335729306693" /> <value unit="" xsi:type="PQ" value="Urine Volume Sufficient (10mL)" /> <referenceRange> < observationRange> <text /> </observationRange> </referenceRange> </observation> </component> <component> <observation moodCode="EVN" classCode="OBS"> <templateId root= "216.840.1.604044.10.4.2" /> <id nullFlavor="NA" /> < code codeSystem="local" code="Kka520" displayName="Urine-Appearance" /> <statusCode code="completed" /> <effectiveTime value="619386730031" / > <value unit="" xsi:type="PQ" value="Cloudy" /> < interpretationCode codeSystem="local" code="A" /> <referenceRange> <observationRange> <text>Clear</text> </ observationRange> </referenceRange> </observation> </ component> <component> <observation moodCode="EVN" classCode="OBS"> <templateId root="2.840.1.511333.02.28.224.2" /> <id nullFlavor="NA" /> <code codeSystem="local" code="Wfa443" displayName= "Urine-Bacteria" /> <statusCode code="completed" /> < effectiveTime value="641018663083" /> <value unit="" xsi:type="PQ" value="Trace" /> <interpretationCode codeSystem="local" code="A" /> <referenceRange> <observationRange> <text> </text > </observationRange> </referenceRange> </observation > </component> <component> <observation moodCode="EVN" classCode="OBS"> <templateId root="216.840.1.918844.02.28.22.4.2" /> <id nullFlavor="NA" /> <code codeSystem="local" code="Auv337" displayName="Urine-Bilirubin" /> <statusCode code="completed" /> <effectiveTime value="430928713457" /> <value unit="" xsi:type="PQ " value="Negative" /> <referenceRange> <observationRange> <text>Negative</text> </observationRange> </ referenceRange> </observation> </component> <component> <observation moodCode="EVN" classCode="OBS"> <templateId root= "16.840.1.428077.10.22.4.2" /> <id nullFlavor="NA" /> < code codeSystem="local" code="Ugc681" displayName="Urine-Blood" /> < statusCode code="completed" /> <effectiveTime value="805618607008" /> <value unit="" xsi:type="PQ" value="Negative" /> < referenceRange> <observationRange> <text>Negative</text > </observationRange> </referenceRange> </observation > </component> <component> <observation moodCode="EVN" classCode="OBS"> <templateId root="06.27.840.1.318983.02.28.22.4.2" /> <id nullFlavor="NA" /> <code codeSystem="local" code="Rmx338" displayName="Urine-Color" /> <statusCode code="completed" /> < effectiveTime value="280497037063" /> <value unit="" xsi:type="PQ" value="Yellow" /> <referenceRange> <observationRange> <text>Colorless-Lt. Yellow</text> </observationRange> </referenceRange> </observation> </component> <component> <observation moodCode="EVN" classCode="OBS"> <templateId root= "06.27.840.1.919935.2022.4.2" /> <id nullFlavor="NA" /> < code codeSystem="local" code="Blo135" displayName="Urine-Epithelial Cells" /> <statusCode code="completed" /> <effectiveTime value= "198747763552" /> <value unit="" xsi:type="PQ" value="5-10/HPF" /> <interpretationCode codeSystem="local" code="A" /> < referenceRange> <observationRange> <text> </text> </observationRange> </referenceRange> </observation> </component> <component> <observation moodCode="EVN" classCode="OBS "> <templateId root="06.27.840.1.532373.10.22.4.2" /> <id nullFlavor="NA" /> <code codeSystem="local" code="Bmi114" displayName= "Urine-Glucose" /> <statusCode code="completed" /> < effectiveTime value="456461534132" /> <value unit="" xsi:type="PQ" value="Negative" /> <referenceRange> <observationRange> <text>Negative</text> </observationRange> </ referenceRange> </observation> </component> <component> <observation moodCode="EVN" classCode="OBS"> <templateId root= "06.27.840.1.454031.10.22.4.2" /> <id nullFlavor="NA" /> < code codeSystem="local" code="Psa305" displayName="Urine-Ketones" /> < statusCode code="completed" /> <effectiveTime value="193944475439" /> <value unit="" xsi:type="PQ" value="Negative" /> < referenceRange> <observationRange> <text>Negative</text > </observationRange> </referenceRange> </observation > </component> <component> <observation moodCode="EVN" classCode="OBS"> <templateId root="06.27.840.1.922366.1020.4.2" /> <id nullFlavor="NA" /> <code codeSystem="local" code="Wgp486" displayName="Urine-Leukocytes" /> <statusCode code="completed" /> <effectiveTime value="129351403577" /> <value unit="" xsi:type="PQ " value="1+" /> <interpretationCode codeSystem="local" code="A" /> <referenceRange> <observationRange> <text>Negative </text> </observationRange> </referenceRange> </ observation> </component> <component> <observation moodCode= "EVN" classCode="OBS"> <templateId root="2.16.840.1.109414.10.4.2 " /> <id nullFlavor="NA" /> <code codeSystem="local" code= "Brq955" displayName="Urine-Nitrite" /> <statusCode code="completed" / > <effectiveTime value="041304132098" /> <value unit="" xsi: type="PQ" value="Negative" /> <referenceRange> < observationRange> <text>Negative</text> </ observationRange> </referenceRange> </observation> </ component> <component> <observation moodCode="EVN" classCode="OBS"> <templateId root="2.16.840.1.339375.10.4.2" /> <id nullFlavor="NA" /> <code codeSystem="local" code="Iqy027" displayName= "Urine-Other" /> <statusCode code="completed" /> < effectiveTime value="882461494278" /> <value unit="" xsi:type="PQ" value=" Urine Saved if Culture Needed (48hrs from time of collection)" /> <interpretationCode codeSystem="local" code="A" /> <referenceRange > <observationRange> <text> </text> </ observationRange> </referenceRange> </observation> </ component> <component> <observation moodCode="EVN" classCode="OBS"> <templateId root="216.840.1.507227.1022.4.2" /> <id nullFlavor="NA" /> <code codeSystem="local" code="Cza961" displayName= "Urine-pH" /> <statusCode code="completed" /> <effectiveTime value="922205990029" /> <value unit="" xsi:type="PQ" value="7.5" /> <referenceRange> <observationRange> <text>5-8.5</ text> </observationRange> </referenceRange> </ observation> </component> <component> <observation moodCode= "EVN" classCode="OBS"> <templateId root="216.840.1.825284.22.4.2 " /> <id nullFlavor="NA" /> <code codeSystem="local" code= "Lle994" displayName="Urine-Protein" /> <statusCode code="completed" / > <effectiveTime value="269965687005" /> <value unit="" xsi: type="PQ" value="Negative" /> <referenceRange> < observationRange> <text>Negative</text> </ observationRange> </referenceRange> </observation> </ component> <component> <observation moodCode="EVN" classCode="OBS"> <templateId root="216.840.1.885542.10.2022.4.2" /> <id nullFlavor="NA" /> <code codeSystem="local" code="Atn442" displayName= "Urine-RBC" /> <statusCode code="completed" /> <effectiveTime value="866407942383" /> <value unit="" xsi:type="PQ" value="0-2/HPF" / > <interpretationCode codeSystem="local" code="A" /> < referenceRange> <observationRange> <text> </text> </observationRange> </referenceRange> </observation> </component> <component> <observation moodCode="EVN" classCode="OBS "> <templateId root="06.27.840.1.944782.10.20.22.4.2" /> <id nullFlavor="NA" /> <code codeSystem="local" code="Ljy345" displayName= "Urine-Specific [place]" /> <statusCode code="completed" /> < effectiveTime value="124064437827" /> <value unit="" xsi:type="PQ" value="1.020" /> <referenceRange> <observationRange> <text>1.000-1.030</text> </observationRange> </ referenceRange> </observation> </component> <component> <observation moodCode="EVN" classCode="OBS"> <templateId root= "06.27.840.1.577810.10...4.2" /> <id nullFlavor="NA" /> < code codeSystem="local" code="Xjc019" displayName="Urine-WBC" /> < statusCode code="completed" /> <effectiveTime value="420840197362" /> <value unit="" xsi:type="PQ" value="2-5/HPF" /> < interpretationCode codeSystem="local" code="A" /> <referenceRange> <observationRange> <text> </text> </ observationRange> </referenceRange> </observation> </ component> <component> <observation moodCode="EVN" classCode="OBS"> <templateId root="06.27.840.1.151971.10.20.22.4.2" /> <id nullFlavor="NA" /> <code codeSystem="local" code="Cdv268" displayName= "Urobilinogen" /> <statusCode code="completed" /> < effectiveTime value="756422407819" /> <value unit="" xsi:type="PQ" value="0.2" /> <referenceRange> <observationRange> <text>0.2-1.0</text> </observationRange> </ referenceRange> </observation> </component> </organizer> </entry > <entry> <organizer moodCode="EVN" classCode="BATTERY"> <templateId root="216.840.1.003195.10...4.1" /> <id nullFlavor="NA" /> <code codeSystem="local" code="CNY900" displayName="XM 2 LRPC" /> <statusCode code="completed" /> <component> <observation moodCode="EVN" classCode="OBS"> <templateId root="216.840.1.497461.10..4.2" /> <id nullFlavor="NA" /> <code codeSystem="local" code="Bju723" displayName="CROSSMATCH" /> <statusCode code="completed" /> < effectiveTime value="449311436151" /> <value unit="" xsi:type="PQ" value="COMPATIBLE X 2" /> <referenceRange> <observationRange > <text /> </observationRange> </referenceRange > </observation> </component> <component> <observation moodCode="EVN" classCode="OBS"> <templateId root= "16.840.1.676630.10..4.2" /> <id nullFlavor="NA" /> < code codeSystem="local" code="Res87" displayName="Hct" /> <statusCode code="completed" /> <effectiveTime value="407929213555" /> < value unit="%" xsi:type="PQ" value="26.9" /> <interpretationCode codeSystem="local" code="L" /> <referenceRange> < observationRange> <text>36.0-46.0</text> </ observationRange> </referenceRange> </observation> </ component> <component> <observation moodCode="EVN" classCode="OBS"> <templateId root="840.1.687965.1022.4.2" /> <id nullFlavor="NA" /> <code codeSystem="local" code="Duq945" displayName= "Hgb" /> <statusCode code="completed" /> <effectiveTime value= "927796396394" /> <value unit="g/dL" xsi:type="PQ" value="7.6" /> <interpretationCode codeSystem="local" code="L" /> <referenceRange > <observationRange> <text>13.0-15.0</text> < /observationRange> </referenceRange> </observation> </ component> </organizer> </entry> <entry> <organizer moodCode="EVN" classCode="BATTERY"> <templateId root="840.1.163924.10..4.1" /> <id nullFlavor="NA" /> <code codeSystem="local" code="FYZ5440" displayName="Leukoreduced Packed RBC Unit Checkout" /> <statusCode code= "completed" /> <component> <observation moodCode="EVN" classCode= "OBS"> <templateId root="06.27.840.1.786169.2022.4.2" /> < id nullFlavor="NA" /> <code codeSystem="local" code="Ohy293" displayName="LRPRBC Checkout" /> <statusCode code="completed" /> <effectiveTime value="777830532162" /> <value unit="" xsi:type="PQ " value="Checked Out." /> <referenceRange> <observationRange > <text /> </observationRange> </referenceRange > </observation> </component> </organizer> </entry> <entry> <organizer moodCode="EVN" classCode="BATTERY"> <templateId root= "16.840.1.673764.10..4.1" /> <id nullFlavor="NA" /> <code codeSystem="local" code="EQU119" displayName="Ferritin" /> <statusCode code ="completed" /> <component> <observation moodCode="EVN" classCode= "OBS"> <templateId root="216.840.1.601925.10...4.2" /> < id nullFlavor="NA" /> <code codeSystem="local" code="Bgt539" displayName="Ferritin" /> <statusCode code="completed" /> < effectiveTime value="704011594400" /> <value unit="ng/mL" xsi:type="PQ " value="3.90" /> <interpretationCode codeSystem="local" code="L" /> <referenceRange> <observationRange> <text>4.63- 204.00</text> </observationRange> </referenceRange> < /observation> </component> </organizer> </entry> <entry> < organizer moodCode="EVN" classCode="BATTERY"> <templateId root= "06.27.840.1.905790.10..4.1" /> <id nullFlavor="NA" /> <code codeSystem="local" code="XCP440" displayName="VIT B-12" /> <statusCode code ="completed" /> <component> <observation moodCode="EVN" classCode= "OBS"> <templateId root="2.16.840.1.793296.10.20.22.4.2" /> < id nullFlavor="NA" /> <code codeSystem="local" code="Ysp223" displayName="Vitamin B12" /> <statusCode code="completed" /> < effectiveTime value="227344666874" /> <value unit="pg/mL" xsi:type="PQ " value="221.00" /> <referenceRange> <observationRange> <text>213.00-816.00</text> </observationRange> </ referenceRange> </observation> </component> </organizer> </entry > <entry> <organizer moodCode="EVN" classCode="BATTERY"> <templateId root="2.16.840.1.319200.10.20.22.4.1" /> <id nullFlavor="NA" /> <code codeSystem="local" code="VMD387" displayName="Folate" /> <statusCode code= "completed" /> <component> <observation moodCode="EVN" classCode= "OBS"> <templateId root="2.16.840.1.896553.10.20.22.4.2" /> < id nullFlavor="NA" /> <code codeSystem="local" code="Lut328" displayName="Folate" /> <statusCode code="completed" /> < effectiveTime value="598515039003" /> <value unit="ng/mL" xsi:type="PQ " value="15.40" /> <referenceRange> <observationRange> <text>7.00-31.40</text> </observationRange> </ referenceRange> </observation> </component> </organizer> </entry > <entry> <organizer moodCode="EVN" classCode="BATTERY"> <templateId root="2.16.840.1.049722.10...4.1" /> <id nullFlavor="NA" /> <code codeSystem="local" code="KQY8703" displayName="Leukoreduced Packed RBC Unit Checkout" /> <statusCode code="completed" /> <component> < observation moodCode="EVN" classCode="OBS"> <templateId root= "216.840.1.150427.02.28.22.4.2" /> <id nullFlavor="NA" /> < code codeSystem="local" code="Qyq081" displayName="LRPRBC Checkout" /> <statusCode code="completed" /> <effectiveTime value="807370489218" /> <value unit="" xsi:type="PQ" value="Checked Out." /> < referenceRange> <observationRange> <text /> < /observationRange> </referenceRange> </observation> </ component> </organizer> </entry> <entry> <organizer moodCode="EVN" classCode="BATTERY"> <templateId root="216.840.1.906486.10..4.1" /> <id nullFlavor="NA" /> <code codeSystem="local" code="JXR584" displayName="Rapid Drug Screen,Medical" /> <statusCode code="completed" /> <component> <observation moodCode="EVN" classCode="OBS"> < templateId root="216.840.1.859377.10..22.4.2" /> <id nullFlavor="NA " /> <code codeSystem="local" code="Hhb932" displayName="Amphetamine" / > <statusCode code="completed" /> <effectiveTime value= "759339146784" /> <value unit="" xsi:type="PQ" value="NEGATIVE" /> <referenceRange> <observationRange> <text>NEGATIVE </text> </observationRange> </referenceRange> </ observation> </component> <component> <observation moodCode= "EVN" classCode="OBS"> <templateId root="06.27.840.1.032024.1022.4.2 " /> <id nullFlavor="NA" /> <code codeSystem="local" code= "Xcs564" displayName="Barbiturates" /> <statusCode code="completed" /> <effectiveTime value="349444436342" /> <value unit="" xsi: type="PQ" value="NEGATIVE" /> <referenceRange> < observationRange> <text>NEGATIVE</text> </ observationRange> </referenceRange> </observation> </ component> <component> <observation moodCode="EVN" classCode="OBS"> <templateId root="06.27.840.1.543004.02.28.22.4.2" /> <id nullFlavor="NA" /> <code codeSystem="local" code="Ynj217" displayName= "Benzodiazepines" /> <statusCode code="completed" /> < effectiveTime value="994375788722" /> <value unit="" xsi:type="PQ" value="NEGATIVE" /> <referenceRange> <observationRange> <text>NEGATIVE</text> </observationRange> </ referenceRange> </observation> </component> <component> <observation moodCode="EVN" classCode="OBS"> <templateId root= "06.27.840.1.988486.02.28.22.4.2" /> <id nullFlavor="NA" /> < code codeSystem="local" code="Cps591" displayName="Cocaine" /> < statusCode code="completed" /> <effectiveTime value="548654275397" /> <value unit="" xsi:type="PQ" value="NEGATIVE" /> < referenceRange> <observationRange> <text>NEGATIVE</text > </observationRange> </referenceRange> </observation > </component> <component> <observation moodCode="EVN" classCode="OBS"> <templateId root="216.840.1.445067.10.22.4.2" /> <id nullFlavor="NA" /> <code codeSystem="local" code="Kda396" displayName="Marijuana" /> <statusCode code="completed" /> < effectiveTime value="832516893509" /> <value unit="" xsi:type="PQ" value="NEGATIVE" /> <referenceRange> <observationRange> <text>NEGATIVE</text> </observationRange> </ referenceRange> </observation> </component> <component> <observation moodCode="EVN" classCode="OBS"> <templateId root= "06.27.840.1.352319.1022.4.2" /> <id nullFlavor="NA" /> < code codeSystem="local" code="Bvv245" displayName="Methylenedioxymethamphetamine " /> <statusCode code="completed" /> <effectiveTime value= "257035426738" /> <value unit="" xsi:type="PQ" value="NEGATIVE" /> <referenceRange> <observationRange> <text>NEGATIVE </text> </observationRange> </referenceRange> </ observation> </component> <component> <observation moodCode= "EVN" classCode="OBS"> <templateId root="06.27.840.1.449599.10.2022.4.2 " /> <id nullFlavor="NA" /> <code codeSystem="local" code= "Dgq480" displayName="Opiates" /> <statusCode code="completed" /> <effectiveTime value="266346051366" /> <value unit="" xsi:type="PQ " value="NEGATIVE" /> <referenceRange> <observationRange> <text>NEGATIVE</text> </observationRange> </ referenceRange> </observation> </component> <component> <observation moodCode="EVN" classCode="OBS"> <templateId root= "16.840.1.319877.10.4.2" /> <id nullFlavor="NA" /> < code codeSystem="local" code="Sww108" displayName="Oxycodone" /> < statusCode code="completed" /> <effectiveTime value="207520705627" /> <value unit="" xsi:type="PQ" value="NEGATIVE" /> < referenceRange> <observationRange> <text>NEGATIVE</text > </observationRange> </referenceRange> </observation > </component> <component> <observation moodCode="EVN" classCode="OBS"> <templateId root="840.1.957709.02.28.22.4.2" /> <id nullFlavor="NA" /> <code codeSystem="local" code="Jpj359" displayName="Phencyclidine" /> <statusCode code="completed" /> <effectiveTime value="623934683826" /> <value unit="" xsi:type="PQ" value="NEGATIVE" /> <referenceRange> <observationRange> <text>NEGATIVE</text> </observationRange> </ referenceRange> </observation> </component> <component> <observation moodCode="EVN" classCode="OBS"> <templateId root= "06.27.840.1.086461.22.4.2" /> <id nullFlavor="NA" /> < code codeSystem="local" code="Osz318" displayName="Propoxyphene" /> < statusCode code="completed" /> <effectiveTime value="886813789988" /> <value unit="" xsi:type="PQ" value="NEGATIVE" /> < referenceRange> <observationRange> <text>NEGATIVE</text > </observationRange> </referenceRange> </observation > </component> <component> <observation moodCode="EVN" classCode="OBS"> <templateId root="16.840.1.421091.02.28.22.4.2" /> <id nullFlavor="NA" /> <code codeSystem="local" code="Wdk975" displayName="Tricyclic Antidepressant" /> <statusCode code="completed" /> <effectiveTime value="247184158791" /> <value unit="" xsi: type="PQ" value="NEGATIVE" /> <referenceRange> < observationRange> <text>NEGATIVE</text> </ observationRange> </referenceRange> </observation> </ component> </organizer> </entry> <entry> <organizer moodCode="EVN" classCode="BATTERY"> <templateId root="16.840.1.883880.02.28.22.4.1" /> <id nullFlavor="NA" /> <code codeSystem="local" code="ORD92" displayName="Surgical Pathology" /> <statusCode code="completed" /> < component> <observation moodCode="EVN" classCode="OBS"> < templateId root="16.840.1.071049.02.28.22.4.2" /> <id nullFlavor="NA " /> <code codeSystem="local" code="Pkd5414" displayName="Surg Path" / > <statusCode code="completed" /> <effectiveTime value= "044565942474" /> <value unit="" xsi:type="PQ" value="Sent to [facility]" /> <referenceRange> <observationRange> <text /> </observationRange> </referenceRange> </ observation> </component> </organizer> </entry> <entry> <organizer moodCode="EVN" classCode="BATTERY"> <templateId root= "16.840.1.671365.10...4.1" /> <id nullFlavor="NA" /> <code codeSystem="local" code="SMO492" displayName="IFOBT Occult Blood" /> < statusCode code="completed" /> <component> <observation moodCode= "EVN" classCode="OBS"> <templateId root="840.1.155763.02.28.22.4.2 " /> <id nullFlavor="NA" /> <code codeSystem="local" code= "Vxp824" displayName="IFOBT Occult Blood" /> <statusCode code= "completed" /> <effectiveTime value="860858000101" /> <value unit="" xsi:type="PQ" value="NEGATIVE" /> <referenceRange> < observationRange> <text>Negative</text> </ observationRange> </referenceRange> </observation> </ component> </organizer> </entry> <entry> <organizer moodCode="EVN" classCode="BATTERY"> <templateId root="06.27.840.1.070314.02.28.22.4.1" /> <id nullFlavor="NA" /> <code codeSystem="local" code="BMC074" displayName="HH" /> <statusCode code="completed" /> <component> <observation moodCode="EVN" classCode="OBS"> <templateId root= "06.27.840.1.983942.10..4.2" /> <id nullFlavor="NA" /> < code codeSystem="local" code="Res87" displayName="Hct" /> <statusCode code="completed" /> <effectiveTime value="191067216955" /> < value unit="%" xsi:type="PQ" value="31.7" /> <interpretationCode codeSystem="local" code="L" /> <referenceRange> < observationRange> <text>36.0-46.0</text> </ observationRange> </referenceRange> </observation> </ component> <component> <observation moodCode="EVN" classCode="OBS"> <templateId root="06.27.840.1.399946.02.28.22.4.2" /> <id nullFlavor="NA" /> <code codeSystem="local" code="Ihf931" displayName= "Hgb" /> <statusCode code="completed" /> <effectiveTime value= "" /> <value unit="g/dL" xsi:type="PQ" value="9.4" /> <interpretationCode codeSystem="local" code="L" /> <referenceRange > <observationRange> <text>13.0-15.0</text> < /observationRange> </referenceRange> </observation> </ component> </organizer> </entry> <entry> <organizer moodCode="EVN" classCode="BATTERY"> <templateId root="840.1.896785.22.4.1" /> <id nullFlavor="NA" /> <code codeSystem="local" code="UYX094" displayName="IFOBT Occult Blood" /> <statusCode code="completed" /> < component> <observation moodCode="EVN" classCode="OBS"> < templateId root="06.27.840.1.080795..2022.4.2" /> <id nullFlavor="NA " /> <code codeSystem="local" code="Qjz957" displayName="IFOBT Occult Blood" /> <statusCode code="completed" /> <effectiveTime value ="154605083812" /> <value unit="" xsi:type="PQ" value="NEGATIVE" /> <referenceRange> <observationRange> <text> Negative</text> </observationRange> </referenceRange> </observation> </component> </organizer> </entry> <entry> < organizer moodCode="EVN" classCode="BATTERY"> <templateId root= "216.840.1.627355.10..22.4.1" /> <id nullFlavor="NA" /> <code codeSystem="local" code="ORD2" displayName="CBC with Auto Diff" /> < statusCode code="completed" /> <component> <observation moodCode= "EVN" classCode="OBS"> <templateId root="216.840.1.154710.10..22.4.2 " /> <id nullFlavor="NA" /> <code codeSystem="local" code= "Qdz845" displayName="Baso%" /> <statusCode code="completed" /> <effectiveTime value="996093919153" /> <value unit="%" xsi: type="PQ" value="1.10" /> <referenceRange> <observationRange > <text>0.00-2.50</text> </observationRange> </ referenceRange> </observation> </component> <component> <observation moodCode="EVN" classCode="OBS"> <templateId root= "216.840.1.690575.10.20.22.4.2" /> <id nullFlavor="NA" /> < code codeSystem="local" code="Klj478" displayName="Eos" /> <statusCode code="completed" /> <effectiveTime value="000412831615" /> < value unit="K/uL" xsi:type="PQ" value="0.3" /> <referenceRange> <observationRange> <text>0.0-0.7</text> </ observationRange> </referenceRange> </observation> </ component> <component> <observation moodCode="EVN" classCode="OBS"> <templateId root="216.840.1.626118.10..22.4.2" /> <id nullFlavor="NA" /> <code codeSystem="local" code="Mpl839" displayName= "Eos%" /> <statusCode code="completed" /> <effectiveTime value="925229437473" /> <value unit="%" xsi:type="PQ" value="4.2" / > <referenceRange> <observationRange> <text>0.0 -7.0</text> </observationRange> </referenceRange> </ observation> </component> <component> <observation moodCode= "EVN" classCode="OBS"> <templateId root="216.840.1.341071.10..22.4.2 " /> <id nullFlavor="NA" /> <code codeSystem="local" code= "Res87" displayName="Hct" /> <statusCode code="completed" /> < effectiveTime value="870710016980" /> <value unit="%" xsi:type="PQ " value="34.3" /> <interpretationCode codeSystem="local" code="L" /> <referenceRange> <observationRange> <text>36.0- 46.0</text> </observationRange> </referenceRange> </ observation> </component> <component> <observation moodCode= "EVN" classCode="OBS"> <templateId root="216.840.1.207387.10.20.22.4.2 " /> <id nullFlavor="NA" /> <code codeSystem="local" code= "Yaz027" displayName="Hgb" /> <statusCode code="completed" /> <effectiveTime value="" /> <value unit="g/dL" xsi:type="PQ " value="10.5" /> <interpretationCode codeSystem="local" code="L" /> <referenceRange> <observationRange> <text>13.0- 15.0</text> </observationRange> </referenceRange> </ observation> </component> <component> <observation moodCode= "EVN" classCode="OBS"> <templateId root="16.840.1.503626.10.22.4.2 " /> <id nullFlavor="NA" /> <code codeSystem="local" code= "Dti815" displayName="Lym" /> <statusCode code="completed" /> <effectiveTime value="" /> <value unit="K/uL" xsi:type="PQ " value="1.98" /> <referenceRange> <observationRange> <text>0.60-3.40</text> </observationRange> </ referenceRange> </observation> </component> <component> <observation moodCode="EVN" classCode="OBS"> <templateId root= "06.27.840.1.103270.10.20.22.4.2" /> <id nullFlavor="NA" /> < code codeSystem="local" code="Oac737" displayName="Lym%" /> < statusCode code="completed" /> <effectiveTime value="" /> <value unit="%" xsi:type="PQ" value="26.9" /> < referenceRange> <observationRange> <text>10.0-50.0</text > </observationRange> </referenceRange> </observation > </component> <component> <observation moodCode="EVN" classCode="OBS"> <templateId root="216.840.1.361755.10.20.22.4.2" /> <id nullFlavor="NA" /> <code codeSystem="local" code="Res89" displayName="MCH" /> <statusCode code="completed" /> < effectiveTime value="503419914133" /> <value unit="pg" xsi:type="PQ" value="22.5" /> <interpretationCode codeSystem="local" code="L" /> <referenceRange> <observationRange> <text>27.0- 31.0</text> </observationRange> </referenceRange> </ observation> </component> <component> <observation moodCode= "EVN" classCode="OBS"> <templateId root="16.840.1.487233.10...4.2 " /> <id nullFlavor="NA" /> <code codeSystem="local" code= "Res90" displayName="MCHC" /> <statusCode code="completed" /> <effectiveTime value="639711807735" /> <value unit="g/dL" xsi:type="PQ " value="30.6" /> <interpretationCode codeSystem="local" code="L" /> <referenceRange> <observationRange> <text>32.0- 36.0</text> </observationRange> </referenceRange> </ observation> </component> <component> <observation moodCode= "EVN" classCode="OBS"> <templateId root="216.840.1.670228.10.20.22.4.2 " /> <id nullFlavor="NA" /> <code codeSystem="local" code= "Res88" displayName="MCV" /> <statusCode code="completed" /> < effectiveTime value="" /> <value unit="fL" xsi:type="PQ" value="73.4" /> <interpretationCode codeSystem="local" code="L" /> <referenceRange> <observationRange> <text>80.0- 97.0</text> </observationRange> </referenceRange> </ observation> </component> <component> <observation moodCode= "EVN" classCode="OBS"> <templateId root="2.16.840.1.778348.10..4.2 " /> <id nullFlavor="NA" /> <code codeSystem="local" code= "Cgj130" displayName="[place]%" /> <statusCode code="completed" /> <effectiveTime value="" /> <value unit="%" xsi: type="PQ" value="7.6" /> <referenceRange> <observationRange > <text>0.0-12.0</text> </observationRange> </ referenceRange> </observation> </component> <component> <observation moodCode="EVN" classCode="OBS"> <templateId root= "2.16.840.1.557337..22.4.2" /> <id nullFlavor="NA" /> < code codeSystem="local" code="Bao368" displayName="MPV" /> <statusCode code="completed" /> <effectiveTime value="" /> < value unit="fL" xsi:type="PQ" value="11.1" /> <interpretationCode codeSystem="local" code="H" /> <referenceRange> < observationRange> <text>7.4-10.0</text> </ observationRange> </referenceRange> </observation> </ component> <component> <observation moodCode="EVN" classCode="OBS"> <templateId root="216.840.1.075312.10.22.4.2" /> <id nullFlavor="NA" /> <code codeSystem="local" code="Vyz016" displayName= "Julianne%" /> <statusCode code="completed" /> <effectiveTime value="" /> <value unit="%" xsi:type="PQ" value="60.2" /> <referenceRange> <observationRange> <text> 37.0-80.0</text> </observationRange> </referenceRange> </observation> </component> <component> <observation moodCode="EVN" classCode="OBS"> <templateId root= "2.840.1.260420.10.4.2" /> <id nullFlavor="NA" /> < code codeSystem="local" code="Res97" displayName="Plt" /> <statusCode code="completed" /> <effectiveTime value="" /> < value unit="K/uL" xsi:type="PQ" value="222" /> <referenceRange> <observationRange> <text>150-400</text> </ observationRange> </referenceRange> </observation> </ component> <component> <observation moodCode="EVN" classCode="OBS"> <templateId root="216.840.1.558748.1022.4.2" /> <id nullFlavor="NA" /> <code codeSystem="local" code="Ibp501" displayName= "RBC" /> <statusCode code="completed" /> <effectiveTime value= "" /> <value unit="M/uL" xsi:type="PQ" value="4.67" /> <referenceRange> <observationRange> <text>3.60- 5.00</text> </observationRange> </referenceRange> </ observation> </component> <component> <observation moodCode= "EVN" classCode="OBS"> <templateId root="216.840.1.446386.10.20.22.4.2 " /> <id nullFlavor="NA" /> <code codeSystem="local" code= "Res91" displayName="RDW" /> <statusCode code="completed" /> < effectiveTime value="382758314827" /> <value unit="%" xsi:type="PQ " value="22.7" /> <interpretationCode codeSystem="local" code="H" /> <referenceRange> <observationRange> <text>11.6- 14.8</text> </observationRange> </referenceRange> </ observation> </component> <component> <observation moodCode= "EVN" classCode="OBS"> <templateId root="06.27.840.1.563583.22.4.2 " /> <id nullFlavor="NA" /> <code codeSystem="local" code= "Res98" displayName="WBC" /> <statusCode code="completed" /> < effectiveTime value="272356390932" /> <value unit="K/uL" xsi:type="PQ" value="7.36" /> <referenceRange> <observationRange> <text>5.00-10.00</text> </observationRange> </ referenceRange> </observation> </component> <component> <observation moodCode="EVN" classCode="OBS"> <templateId root= "216.840.1.382455.10.20.22.4.2" /> <id nullFlavor="NA" /> < code codeSystem="local" code="Res99" displayName="Julianne" /> <statusCode code="completed" /> <effectiveTime value="" /> < value unit="K/uL" xsi:type="PQ" value="4.43" /> <referenceRange> <observationRange> <text>2.00-6.90</text> </ observationRange> </referenceRange> </observation> </ component> <component> <observation moodCode="EVN" classCode="OBS"> <templateId root="216.840.1.071421.10...4.2" /> <id nullFlavor="NA" /> <code codeSystem="local" code="Tsx532" displayName= "[place]" /> <statusCode code="completed" /> <effectiveTime value ="" /> <value unit="K/uL" xsi:type="PQ" value="0.6" /> <referenceRange> <observationRange> <text>0.0-0.9< /text> </observationRange> </referenceRange> </ observation> </component> <component> <observation moodCode= "EVN" classCode="OBS"> <templateId root="216.840.1.879744.10..22.4.2 " /> <id nullFlavor="NA" /> <code codeSystem="local" code= "Mzv600" displayName="Baso" /> <statusCode code="completed" /> <effectiveTime value="" /> <value unit="K/uL" xsi:type= "PQ" value="0.1" /> <referenceRange> <observationRange> <text>0.0-0.2</text> </observationRange> </ referenceRange> </observation> </component> </organizer> </entry > <entry> <organizer moodCode="EVN" classCode="BATTERY"> <templateId root="216.840.1.620046.10..22.4.1" /> <id nullFlavor="NA" /> <code codeSystem="local" code="03490-7" displayName="Complete urinalysis with reflex to culture" /> <statusCode code="completed" /> <component> < observation moodCode="EVN" classCode="OBS"> <templateId root= "216.840.1.514685.10.22.4.2" /> <id nullFlavor="NA" /> < code codeSystem="local" code="5778-6" displayName="Urine color determination" / > <statusCode code="completed" /> <effectiveTime value= "453308911183" /> <value unit="" xsi:type="PQ" value="YELLOW" /> <referenceRange> <observationRange> <text>NRG</text > </observationRange> </referenceRange> </observation > </component> <component> <observation moodCode="EVN" classCode="OBS"> <templateId root="16.840.1.100216.10..4.2" /> <id nullFlavor="NA" /> <code codeSystem="local" code="16083-2 " displayName="Urine clarity determination" /> <statusCode code= "completed" /> <effectiveTime value="925699744225" /> <value unit="" xsi:type="PQ" value="SLIGHTLY CLOUDY" /> <referenceRange> <observationRange> <text>NRG</text> </ observationRange> </referenceRange> </observation> </ component> <component> <observation moodCode="EVN" classCode="OBS"> <templateId root="216.840.1.566049...4.2" /> <id nullFlavor="NA" /> <code codeSystem="local" code="5803-2" displayName= "Urine pH measurement by test strip" /> <statusCode code="completed" / > <effectiveTime value="557599143793" /> <value unit="" xsi: type="PQ" value="6.5" /> <referenceRange> <observationRange > <text>5-9</text> </observationRange> </ referenceRange> </observation> </component> <component> <observation moodCode="EVN" classCode="OBS"> <templateId root= "2.16.840.1.502493.10..4.2" /> <id nullFlavor="NA" /> < code codeSystem="local" code="5811-5" displayName="Specific gravity of urine by test strip" /> <statusCode code="completed" /> <effectiveTime value="489550377563" /> <value unit="" xsi:type="PQ" value="1.020" /> <referenceRange> <observationRange> <text>1.016 -1.022</text> </observationRange> </referenceRange> < /observation> </component> <component> <observation moodCode= "EVN" classCode="OBS"> <templateId root="2.16.840.1.272174....4.2 " /> <id nullFlavor="NA" /> <code codeSystem="local" code= "16104-9" displayName="Urine protein assay by test strip, semi-quantitative" /> <statusCode code="completed" /> <effectiveTime value= "921036620297" /> <value unit="" xsi:type="PQ" value="NEGATIVE" /> <referenceRange> <observationRange> <text>NEGATIVE </text> </observationRange> </referenceRange> </ observation> </component> <component> <observation moodCode= "EVN" classCode="OBS"> <templateId root="216.840.1.731719.10..22.4.2 " /> <id nullFlavor="NA" /> <code codeSystem="local" code= "49711-3" displayName="Urine glucose detection by automated test strip" /> <statusCode code="completed" /> <effectiveTime value="599249244018 " /> <value unit="" xsi:type="PQ" value="NEGATIVE" /> < referenceRange> <observationRange> <text>NEGATIVE</text > </observationRange> </referenceRange> </observation > </component> <component> <observation moodCode="EVN" classCode="OBS"> <templateId root="216.840.1.889921.10..4.2" /> <id nullFlavor="NA" /> <code codeSystem="local" code="27513-0 " displayName="Erythrocytes detection in urine sediment by light microscopy" /> <statusCode code="completed" /> <effectiveTime value= "298318482708" /> <value unit="" xsi:type="PQ" value="1+" /> < interpretationCode codeSystem="local" code="*" /> <referenceRange> <observationRange> <text>NEGATIVE</text> </ observationRange> </referenceRange> </observation> </ component> <component> <observation moodCode="EVN" classCode="OBS"> <templateId root="216.840.1.219136.10.2022.4.2" /> <id nullFlavor="NA" /> <code codeSystem="local" code="50963-2" displayName= "Urine ketones detection by automated test strip" /> <statusCode code= "completed" /> <effectiveTime value="282956148307" /> <value unit="" xsi:type="PQ" value="NEGATIVE" /> <referenceRange> < observationRange> <text>NEGATIVE</text> </ observationRange> </referenceRange> </observation> </ component> <component> <observation moodCode="EVN" classCode="OBS"> <templateId root="16.840.1.698649.10.20.22.4.2" /> <id nullFlavor="NA" /> <code codeSystem="local" code="5802-4" displayName= "Urine nitrite detection by test strip" /> <statusCode code="completed " /> <effectiveTime value="630515100250" /> <value unit="" xsi :type="PQ" value="NEGATIVE" /> <referenceRange> < observationRange> <text>NEGATIVE</text> </ observationRange> </referenceRange> </observation> </ component> <component> <observation moodCode="EVN" classCode="OBS"> <templateId root="06.27.840.1.874581.102022.4.2" /> <id nullFlavor="NA" /> <code codeSystem="local" code="5770-3" displayName= "Urine total bilirubin detection by test strip" /> <statusCode code= "completed" /> <effectiveTime value="559306988227" /> <value unit="" xsi:type="PQ" value="NEGATIVE" /> <referenceRange> < observationRange> <text>NEGATIVE</text> </ observationRange> </referenceRange> </observation> </ component> <component> <observation moodCode="EVN" classCode="OBS"> <templateId root="06.27.840.1.658159.10.2022.4.2" /> <id nullFlavor="NA" /> <code codeSystem="local" code="44540-4" displayName= "Urine urobilinogen measurement by automated test strip (mass/volume)" /> <statusCode code="completed" /> <effectiveTime value="806243623128 " /> <value unit="" xsi:type="PQ" value="NORMAL" /> < referenceRange> <observationRange> <text>NORMAL</text> </observationRange> </referenceRange> </observation> </component> <component> <observation moodCode="EVN" classCode ="OBS"> <templateId root="216.840.1.766187.10..22.4.2" /> < id nullFlavor="NA" /> <code codeSystem="local" code="5799-2" displayName="Urine leukocyte esterase detection by dipstick" /> < statusCode code="completed" /> <effectiveTime value="220425690073" /> <value unit="" xsi:type="PQ" value="NEGATIVE" /> < referenceRange> <observationRange> <text>NEGATIVE</text > </observationRange> </referenceRange> </observation > </component> <component> <observation moodCode="EVN" classCode="OBS"> <templateId root="216.840.1.773297.10..22.4.2" /> <id nullFlavor="NA" /> <code codeSystem="local" code="23198-4 " displayName="Automated urine sediment erythrocyte count by microscopy (number/ high power field)" /> <statusCode code="completed" /> < effectiveTime value="793858913048" /> <value unit="[HPF]" xsi:type="PQ " value="" /> <referenceRange> <observationRange> <text>NRG</text> </observationRange> </referenceRange> </observation> </component> <component> <observation moodCode="EVN" classCode="OBS"> <templateId root= "216.840.1.135571.02.28.22.4.2" /> <id nullFlavor="NA" /> < code codeSystem="local" code="5821-4" displayName="Automated urine sediment leukocyte count by microscopy (number/high power field)" /> < statusCode code="completed" /> <effectiveTime value="750041354615" /> <value unit="" xsi:type="PQ" value="NONE" /> <referenceRange> <observationRange> <text>NRG</text> </ observationRange> </referenceRange> </observation> </ component> <component> <observation moodCode="EVN" classCode="OBS"> <templateId root="2.16.840.1.001701.02.28.22.4.2" /> <id nullFlavor="NA" /> <code codeSystem="local" code="97876-9" displayName= "Bacteria detection in urine sediment by light microscopy" /> < statusCode code="completed" /> <effectiveTime value="273069926963" /> <value unit="" xsi:type="PQ" value="TRACE" /> <referenceRange > <observationRange> <text>NRG</text> </ observationRange> </referenceRange> </observation> </ component> <component> <observation moodCode="EVN" classCode="OBS"> <templateId root="216.840.1.550634...4.2" /> <id nullFlavor="NA" /> <code codeSystem="local" code="41572-9" displayName= "Squamous epithelial cells detection in urine sediment by light microscopy" /> <statusCode code="completed" /> <effectiveTime value= "133840672211" /> <value unit="" xsi:type="PQ" value="5-10" /> <referenceRange> <observationRange> <text>NRG</text> </observationRange> </referenceRange> </observation> </component> <component> <observation moodCode="EVN" classCode ="OBS"> <templateId root="216.840.1.308490.10.22.4.2" /> < id nullFlavor="NA" /> <code codeSystem="local" code="87022-3" displayName="Crystals detection in urine sediment by light microscopy" /> <statusCode code="completed" /> <effectiveTime value="686228160413 " /> <value unit="" xsi:type="PQ" value="PRESENT" /> < interpretationCode codeSystem="local" code="*" /> <referenceRange> <observationRange> <text>NRG</text> </ observationRange> </referenceRange> </observation> </ component> <component> <observation moodCode="EVN" classCode="OBS"> <templateId root="06.27.840.1.021250.02.28.22.4.2" /> <id nullFlavor="NA" /> <code codeSystem="local" code="58958-3" displayName= "Casts detection in urine sediment by light microscopy" /> <statusCode code="completed" /> <effectiveTime value="416460372761" /> < value unit="" xsi:type="PQ" value="NONE" /> <referenceRange> <observationRange> <text>NRG</text> </observationRange > </referenceRange> </observation> </component> < component> <observation moodCode="EVN" classCode="OBS"> < templateId root="216.840.1.634662.10.22.4.2" /> <id nullFlavor="NA " /> <code codeSystem="local" code="8247-9" displayName="Mucus detection in urine sediment by light microscopy" /> <statusCode code= "completed" /> <effectiveTime value="160604898065" /> <value unit="" xsi:type="PQ" value="SMALL" /> <interpretationCode codeSystem= "local" code="*" /> <referenceRange> <observationRange> <text>NRG</text> </observationRange> </ referenceRange> </observation> </component> <component> <observation moodCode="EVN" classCode="OBS"> <templateId root= "216.840.1.683947.10..4.2" /> <id nullFlavor="NA" /> < code codeSystem="local" code="46365-4" displayName="Complete urinalysis with reflex to culture" /> <statusCode code="completed" /> < effectiveTime value="418674758199" /> <value unit="" xsi:type="PQ" value="NO" /> <referenceRange> <observationRange> <text>NRG</text> </observationRange> </referenceRange> </observation> </component> <component> <observation moodCode="EVN" classCode="OBS"> <templateId root= "2.16.840.1.573841.10...4.2" /> <id nullFlavor="NA" /> < code codeSystem="local" code="8246-1" displayName="Amorphous sediment detection in urine sediment by light microscopy" /> <statusCode code="completed" /> <effectiveTime value="847728200576" /> <value unit="" xsi: type="PQ" value="FEW RAMIRO URATES" /> <interpretationCode codeSystem= "local" code="*" /> <referenceRange> <observationRange> <text>NRG</text> </observationRange> </ referenceRange> </observation> </component> </organizer> </entry > <entry> <organizer moodCode="EVN" classCode="BATTERY"> <templateId root="216.840.1.787474.10..22.4.1" /> <id nullFlavor="NA" /> <code codeSystem="local" code="75037-0" displayName="Urine drug screening test" /> <statusCode code="completed" /> <component> <observation moodCode ="EVN" classCode="OBS"> <templateId root= "06.27.840.1.391321.02.28.22.4.2" /> <id nullFlavor="NA" /> < code codeSystem="local" code="57654-1" displayName="Urine phencyclidine detection by screening method" /> <statusCode code="completed" /> <effectiveTime value="840907663282" /> <value unit="" xsi:type="PQ " value="NEGATIVE" /> <referenceRange> <observationRange> <text>NEGATIVE</text> </observationRange> </ referenceRange> </observation> </component> <component> <observation moodCode="EVN" classCode="OBS"> <templateId root= "06.27.840.1.269265.02.28.22.4.2" /> <id nullFlavor="NA" /> < code codeSystem="local" code="89899-9" displayName="Urine benzodiazepines detection by screening method" /> <statusCode code="completed" /> <effectiveTime value="774760447787" /> <value unit="" xsi:type="PQ " value="NEGATIVE" /> <referenceRange> <observationRange> <text>NEGATIVE</text> </observationRange> </ referenceRange> </observation> </component> <component> <observation moodCode="EVN" classCode="OBS"> <templateId root= "216.840.1.904187.10...4.2" /> <id nullFlavor="NA" /> < code codeSystem="local" code="3397-7" displayName="Urine cocaine detection" /> <statusCode code="completed" /> <effectiveTime value= "131975010209" /> <value unit="" xsi:type="PQ" value="NEGATIVE" /> <referenceRange> <observationRange> <text>NEGATIVE </text> </observationRange> </referenceRange> </ observation> </component> <component> <observation moodCode= "EVN" classCode="OBS"> <templateId root="216.840.1.182138.10.20.22.4.2 " /> <id nullFlavor="NA" /> <code codeSystem="local" code= "56938-4" displayName="Urine amphetamines detection by screening method" /> <statusCode code="completed" /> <effectiveTime value= "376918235142" /> <value unit="" xsi:type="PQ" value="NEGATIVE" /> <referenceRange> <observationRange> <text>NEGATIVE </text> </observationRange> </referenceRange> </ observation> </component> <component> <observation moodCode= "EVN" classCode="OBS"> <templateId root="216.840.1.868634.10.20.22.4.2 " /> <id nullFlavor="NA" /> <code codeSystem="local" code= "69107-9" displayName="Urine methamphetamine detection by screening method" /> <statusCode code="completed" /> <effectiveTime value= "540910922104" /> <value unit="" xsi:type="PQ" value="NEGATIVE" /> <referenceRange> <observationRange> <text>NEGATIVE </text> </observationRange> </referenceRange> </ observation> </component> <component> <observation moodCode= "EVN" classCode="OBS"> <templateId root="16.840.1.363813...22.4.2 " /> <id nullFlavor="NA" /> <code codeSystem="local" code= "97263-5" displayName="Urine cannabinoids detection by screening method" /> <statusCode code="completed" /> <effectiveTime value= "820432655549" /> <value unit="" xsi:type="PQ" value="NEGATIVE" /> <referenceRange> <observationRange> <text>NEGATIVE </text> </observationRange> </referenceRange> </ observation> </component> <component> <observation moodCode= "EVN" classCode="OBS"> <templateId root="2.16.840.1.159394.02.28.22.4.2 " /> <id nullFlavor="NA" /> <code codeSystem="local" code= "62096-2" displayName="Urine opiates detection by screening method" /> <statusCode code="completed" /> <effectiveTime value="663411714084" /> <value unit="" xsi:type="PQ" value="NEGATIVE" /> < referenceRange> <observationRange> <text>NEGATIVE</text > </observationRange> </referenceRange> </observation > </component> <component> <observation moodCode="EVN" classCode="OBS"> <templateId root="216.840.1.029066..22.4.2" /> <id nullFlavor="NA" /> <code codeSystem="local" code="3377-9" displayName="Urine barbiturates detection" /> <statusCode code= "completed" /> <effectiveTime value="227231821052" /> <value unit="" xsi:type="PQ" value="NEGATIVE" /> <referenceRange> < observationRange> <text>NEGATIVE</text> </ observationRange> </referenceRange> </observation> </ component> <component> <observation moodCode="EVN" classCode="OBS"> <templateId root="2.16.840.1.306730.10..22.4.2" /> <id nullFlavor="NA" /> <code codeSystem="local" code="93694-4" displayName= "Screening urine tricyclic antidepressants detection" /> <statusCode code="completed" /> <effectiveTime value="532208843831" /> < value unit="" xsi:type="PQ" value="NEGATIVE" /> <referenceRange> <observationRange> <text>NEGATIVE</text> </ observationRange> </referenceRange> </observation> </ component> <component> <observation moodCode="EVN" classCode="OBS"> <templateId root="2.16.840.1.441836.10...4.2" /> <id nullFlavor="NA" /> <code codeSystem="local" code="64688-3" displayName= "Urine methadone detection by screening method" /> <statusCode code= "completed" /> <effectiveTime value="940803797891" /> <value unit="" xsi:type="PQ" value="NEGATIVE" /> <referenceRange> < observationRange> <text>NEGATIVE</text> </ observationRange> </referenceRange> </observation> </ component> <component> <observation moodCode="EVN" classCode="OBS"> <templateId root="2.16.840.1.894193.10..22.4.2" /> <id nullFlavor="NA" /> <code codeSystem="local" code="69770-2" displayName= "Urine oxycodone detection" /> <statusCode code="completed" /> <effectiveTime value="204002528072" /> <value unit="" xsi:type="PQ" value="NEGATIVE" /> <referenceRange> <observationRange> <text>NEGATIVE</text> </observationRange> </ referenceRange> </observation> </component> <component> <observation moodCode="EVN" classCode="OBS"> <templateId root= "216.840.1.019373.10.20.22.4.2" /> <id nullFlavor="NA" /> < code codeSystem="local" code="95010-9" displayName="Urine propoxyphene detection " /> <statusCode code="completed" /> <effectiveTime value= "883951269758" /> <value unit="" xsi:type="PQ" value="NEGATIVE" /> <referenceRange> <observationRange> <text>NEGATIVE </text> </observationRange> </referenceRange> </ observation> </component> </organizer> </entry> <entry> <organizer moodCode="EVN" classCode="BATTERY"> <templateId root= "216.840.1.948122.10..22.4.1" /> <id nullFlavor="NA" /> <code codeSystem="local" code="27837-1" displayName="Complete blood count (CBC) with automated white blood cell (WBC) differential" /> <statusCode code= "completed" /> <component> <observation moodCode="EVN" classCode= "OBS"> <templateId root="2.16.840.1.597120.10.20.22.4.2" /> < id nullFlavor="NA" /> <code codeSystem="local" code="6690-2" displayName="Blood leukocytes automated count (number/volume)" /> < statusCode code="completed" /> <effectiveTime value="782571620111" /> <value unit="10*3/uL" xsi:type="PQ" value="5.5" /> < referenceRange> <observationRange> <text>4.3-11.0</text > </observationRange> </referenceRange> </observation > </component> <component> <observation moodCode="EVN" classCode="OBS"> <templateId root="216.840.1.167182.10.20.22.4.2" /> <id nullFlavor="NA" /> <code codeSystem="local" code="789-8" displayName="Blood erythrocytes automated count (number/volume)" /> < statusCode code="completed" /> <effectiveTime value="522535448597" /> <value unit="10*6/uL" xsi:type="PQ" value="4.20" /> < interpretationCode codeSystem="local" code="" /> <referenceRange> <observationRange> <text>4.35-5.85</text> </ observationRange> </referenceRange> </observation> </ component> <component> <observation moodCode="EVN" classCode="OBS"> <templateId root="16.840.1.877790.10..22.4.2" /> <id nullFlavor="NA" /> <code codeSystem="local" code="22603-0" displayName= "Venous blood hemoglobin measurement (mass/volume)" /> <statusCode code ="completed" /> <effectiveTime value="835834871109" /> <value unit="g/dL" xsi:type="PQ" value="9.7" /> <interpretationCode codeSystem ="local" code="" /> <referenceRange> <observationRange> <text>11.5-16.0</text> </observationRange> </ referenceRange> </observation> </component> <component> <observation moodCode="EVN" classCode="OBS"> <templateId root= "2.16.840.1.186036.10.20.22.4.2" /> <id nullFlavor="NA" /> < code codeSystem="local" code="92582-6" displayName="Blood hematocrit (volume fraction)" /> <statusCode code="completed" /> <effectiveTime value="729378951749" /> <value unit="%" xsi:type="PQ" value="31" / > <interpretationCode codeSystem="local" code="" /> < referenceRange> <observationRange> <text>35-52</text> </observationRange> </referenceRange> </observation> </component> <component> <observation moodCode="EVN" classCode= "OBS"> <templateId root="2.16.840.1.433991.10...4.2" /> < id nullFlavor="NA" /> <code codeSystem="local" code="787-2" displayName ="Automated erythrocyte mean corpuscular volume" /> <statusCode code= "completed" /> <effectiveTime value="006705088925" /> <value unit="[foz_us]" xsi:type="PQ" value="74" /> <interpretationCode codeSystem="local" code="" /> <referenceRange> < observationRange> <text>80-99</text> </observationRange > </referenceRange> </observation> </component> < component> <observation moodCode="EVN" classCode="OBS"> < templateId root="2.16.840.1.135947.10..22.4.2" /> <id nullFlavor="NA " /> <code codeSystem="local" code="785-6" displayName="Automated erythrocyte mean corpuscular hemoglobin (mass per erythrocyte)" /> < statusCode code="completed" /> <effectiveTime value="198265027055" /> <value unit="pg" xsi:type="PQ" value="23" /> < interpretationCode codeSystem="local" code="" /> <referenceRange> <observationRange> <text>25-34</text> </ observationRange> </referenceRange> </observation> </ component> <component> <observation moodCode="EVN" classCode="OBS"> <templateId root="216.840.1.820258.10.20..4.2" /> <id nullFlavor="NA" /> <code codeSystem="local" code="786-4" displayName= "Automated erythrocyte mean corpuscular hemoglobin concentration measurement ( mass/volume)" /> <statusCode code="completed" /> < effectiveTime value="779070090276" /> <value unit="g/dL" xsi:type="PQ" value="31" /> <interpretationCode codeSystem="local" code="" /> <referenceRange> <observationRange> <text>32-36</ text> </observationRange> </referenceRange> </ observation> </component> <component> <observation moodCode= "EVN" classCode="OBS"> <templateId root="216.840.1.684448.10...4.2 " /> <id nullFlavor="NA" /> <code codeSystem="local" code="788 -0" displayName="Automated erythrocyte distribution width ratio" /> < statusCode code="completed" /> <effectiveTime value="647730888247" /> <value unit="%" xsi:type="PQ" value="21.6" /> < interpretationCode codeSystem="local" code="" /> <referenceRange> <observationRange> <text>10.0-14.5</text> </ observationRange> </referenceRange> </observation> </ component> <component> <observation moodCode="EVN" classCode="OBS"> <templateId root="2.840.1.795540.10.20.22.4.2" /> <id nullFlavor="NA" /> <code codeSystem="local" code="777-3" displayName= "Automated blood platelet count (count/volume)" /> <statusCode code= "completed" /> <effectiveTime value="693030651210" /> <value unit="10*3/uL" xsi:type="PQ" value="181" /> <referenceRange> <observationRange> <text>130-400</text> </ observationRange> </referenceRange> </observation> </ component> <component> <observation moodCode="EVN" classCode="OBS"> <templateId root="06.27.840.1.126238.10.20.22.4.2" /> <id nullFlavor="NA" /> <code codeSystem="local" code="39826-3" displayName= "Automated blood platelet mean volume measurement" /> <statusCode code= "completed" /> <effectiveTime value="946408765523" /> <value unit="[foz_us]" xsi:type="PQ" value="11.2" /> <interpretationCode codeSystem="local" code="" /> <referenceRange> < observationRange> <text>7.4-10.4</text> </ observationRange> </referenceRange> </observation> </ component> <component> <observation moodCode="EVN" classCode="OBS"> <templateId root="06.27.840.1.708234.10.20.22.4.2" /> <id nullFlavor="NA" /> <code codeSystem="local" code="770-8" displayName= "Automated blood neutrophils/100 leukocytes" /> <statusCode code= "completed" /> <effectiveTime value="537115602489" /> <value unit="%" xsi:type="PQ" value="51" /> <referenceRange> < observationRange> <text>42-75</text> </observationRange > </referenceRange> </observation> </component> < component> <observation moodCode="EVN" classCode="OBS"> < templateId root="216.840.1.532105.10.20.22.4.2" /> <id nullFlavor="NA " /> <code codeSystem="local" code="736-9" displayName="Automated blood lymphocytes/100 leukocytes" /> <statusCode code="completed" /> <effectiveTime value="401016135975" /> <value unit="%" xsi: type="PQ" value="31" /> <referenceRange> <observationRange> <text>12-44</text> </observationRange> </ referenceRange> </observation> </component> <component> <observation moodCode="EVN" classCode="OBS"> <templateId root= "06.27.840.1.810058.10.20.22.4.2" /> <id nullFlavor="NA" /> < code codeSystem="local" code="02515-5" displayName="Blood monocytes/100 leukocytes" /> <statusCode code="completed" /> <effectiveTime value="758177474712" /> <value unit="%" xsi:type="PQ" value="11" / > <referenceRange> <observationRange> <text>0- 12</text> </observationRange> </referenceRange> </ observation> </component> <component> <observation moodCode= "EVN" classCode="OBS"> <templateId root="06.27.840.1.760916.10.20.22.4.2 " /> <id nullFlavor="NA" /> <code codeSystem="local" code="713 -8" displayName="Automated blood eosinophils/100 leukocytes" /> < statusCode code="completed" /> <effectiveTime value="904408251529" /> <value unit="%" xsi:type="PQ" value="6" /> <referenceRange > <observationRange> <text>0-10</text> </ observationRange> </referenceRange> </observation> </ component> <component> <observation moodCode="EVN" classCode="OBS"> <templateId root="2.16.840.1.208245.10.20.22.4.2" /> <id nullFlavor="NA" /> <code codeSystem="local" code="706-2" displayName= "Automated blood basophils/100 leukocytes" /> <statusCode code= "completed" /> <effectiveTime value="828402275127" /> <value unit="%" xsi:type="PQ" value="1" /> <referenceRange> < observationRange> <text>0-10</text> </observationRange> </referenceRange> </observation> </component> < component> <observation moodCode="EVN" classCode="OBS"> < templateId root="2.16.840.1.065744.10.20.22.4.2" /> <id nullFlavor="NA " /> <code codeSystem="local" code="751-8" displayName="Blood neutrophils automated count (number/volume)" /> <statusCode code= "completed" /> <effectiveTime value="363741964994" /> <value unit="10*3" xsi:type="PQ" value="2.8" /> <referenceRange> < observationRange> <text>1.8-7.8</text> </ observationRange> </referenceRange> </observation> </ component> <component> <observation moodCode="EVN" classCode="OBS"> <templateId root="16.840.1.076818.10.20.22.4.2" /> <id nullFlavor="NA" /> <code codeSystem="local" code="731-0" displayName= "Blood lymphocytes automated count (number/volume)" /> <statusCode code ="completed" /> <effectiveTime value="936637710971" /> <value unit="10*3" xsi:type="PQ" value="1.7" /> <referenceRange> < observationRange> <text>1.0-4.0</text> </ observationRange> </referenceRange> </observation> </ component> <component> <observation moodCode="EVN" classCode="OBS"> <templateId root="06.27.840.1.259545.10.2022.4.2" /> <id nullFlavor="NA" /> <code codeSystem="local" code="742-7" displayName= "Blood monocytes automated count (number/volume)" /> <statusCode code= "completed" /> <effectiveTime value="769306715931" /> <value unit="10*3" xsi:type="PQ" value="0.6" /> <referenceRange> < observationRange> <text>0.0-1.0</text> </ observationRange> </referenceRange> </observation> </ component> <component> <observation moodCode="EVN" classCode="OBS"> <templateId root="06.27.840.1.125032.10.2022.4.2" /> <id nullFlavor="NA" /> <code codeSystem="local" code="711-2" displayName= "Automated eosinophil count" /> <statusCode code="completed" /> <effectiveTime value="325740552419" /> <value unit="10*3/uL" xsi: type="PQ" value="0.3" /> <referenceRange> <observationRange > <text>0.0-0.3</text> </observationRange> </ referenceRange> </observation> </component> <component> <observation moodCode="EVN" classCode="OBS"> <templateId root= "2.16.840.1.324300.10.20.22.4.2" /> <id nullFlavor="NA" /> < code codeSystem="local" code="704-7" displayName="Automated blood basophil count (count/volume)" /> <statusCode code="completed" /> < effectiveTime value="602434764380" /> <value unit="10*3/uL" xsi:type= "PQ" value="0.0" /> <referenceRange> <observationRange> <text>0.0-0.1</text> </observationRange> </ referenceRange> </observation> </component> </organizer> </entry > <entry> <organizer moodCode="EVN" classCode="BATTERY"> <templateId root="2.16.840.1.038021.10.20.22.4.1" /> <id nullFlavor="NA" /> <code codeSystem="local" code="2117-12" displayName="Serum or plasma choriogonadotropin ( test) detection" /> <statusCode code= "completed" /> <component> <observation moodCode="EVN" classCode= "OBS"> <templateId root="2.16.840.1.523931.10.20.22.4.2" /> < id nullFlavor="NA" /> <code codeSystem="local" code="2117-12" displayName="Serum or plasma choriogonadotropin ( test) detection" /> <statusCode code="completed" /> <effectiveTime value= "611526960569" /> <value unit="" xsi:type="PQ" value="NEGATIVE" /> <referenceRange> <observationRange> <text>NEGATIVE </text> </observationRange> </referenceRange> </ observation> </component> </organizer> </entry> <entry> <organizer moodCode="EVN" classCode="BATTERY"> <templateId root= "2.16.840.1.251955.10..22.4.1" /> <id nullFlavor="NA" /> <code codeSystem="local" code="92026-4" displayName="Comprehensive metabolic panel" / > <statusCode code="completed" /> <component> <observation moodCode="EVN" classCode="OBS"> <templateId root= "2.16.840.1.805927.10..4.2" /> <id nullFlavor="NA" /> < code codeSystem="local" code="2951-2" displayName="Serum or plasma sodium measurement (moles/volume)" /> <statusCode code="completed" /> <effectiveTime value="227376050948" /> <value unit="mmol/L" xsi:type= "PQ" value="139" /> <referenceRange> <observationRange> <text>135-145</text> </observationRange> </ referenceRange> </observation> </component> <component> <observation moodCode="EVN" classCode="OBS"> <templateId root= "2.16.840.1.435853.10..4.2" /> <id nullFlavor="NA" /> < code codeSystem="local" code="2823-3" displayName="Serum or plasma potassium measurement (moles/volume)" /> <statusCode code="completed" /> <effectiveTime value="866504861109" /> <value unit="mmol/L" xsi:type= "PQ" value="3.5" /> <interpretationCode codeSystem="local" code="" / > <referenceRange> <observationRange> <text>3.6 -5.0</text> </observationRange> </referenceRange> </ observation> </component> <component> <observation moodCode= "EVN" classCode="OBS"> <templateId root="216.840.1.244655.10.20.22.4.2 " /> <id nullFlavor="NA" /> <code codeSystem="local" code= "" displayName="Serum or plasma chloride measurement (moles/volume)" /> <statusCode code="completed" /> <effectiveTime value= "912589677139" /> <value unit="mmol/L" xsi:type="PQ" value="106" /> <referenceRange> <observationRange> <text>98-107< /text> </observationRange> </referenceRange> </ observation> </component> <component> <observation moodCode= "EVN" classCode="OBS"> <templateId root="06.27.840.1.337021.10..22.4.2 " /> <id nullFlavor="NA" /> <code codeSystem="local" code= "2028-01" displayName="Carbon dioxide" /> <statusCode code="completed" / > <effectiveTime value="121410057581" /> <value unit="mmol/L" xsi:type="PQ" value="23" /> <referenceRange> < observationRange> <text>21-32</text> </observationRange > </referenceRange> </observation> </component> < component> <observation moodCode="EVN" classCode="OBS"> < templateId root="06.27.840.1.100720.10.20.22.4.2" /> <id nullFlavor="NA " /> <code codeSystem="local" code="70467-9" displayName="Serum or plasma anion gap determination (moles/volume)" /> <statusCode code= "completed" /> <effectiveTime value="186164008844" /> <value unit="mmol/L" xsi:type="PQ" value="10" /> <referenceRange> < observationRange> <text>5-14</text> </observationRange> </referenceRange> </observation> </component> < component> <observation moodCode="EVN" classCode="OBS"> < templateId root="216.840.1.002199.10.20.22.4.2" /> <id nullFlavor="NA " /> <code codeSystem="local" code="3094-0" displayName="Serum or plasma urea nitrogen measurement (mass/volume)" /> <statusCode code= "completed" /> <effectiveTime value="299411088406" /> <value unit="mg/dL" xsi:type="PQ" value="18" /> <referenceRange> < observationRange> <text>7-18</text> </observationRange> </referenceRange> </observation> </component> < component> <observation moodCode="EVN" classCode="OBS"> < templateId root="06.27.840.1.713879.10.20.22.4.2" /> <id nullFlavor="NA " /> <code codeSystem="local" code="2160-0" displayName="Serum or plasma creatinine measurement (mass/volume)" /> <statusCode code= "completed" /> <effectiveTime value="988776980980" /> <value unit="mg/dL" xsi:type="PQ" value="0.75" /> <referenceRange> <observationRange> <text>0.60-1.30</text> </ observationRange> </referenceRange> </observation> </ component> <component> <observation moodCode="EVN" classCode="OBS"> <templateId root="840.1.178180.10.20.22.4.2" /> <id nullFlavor="NA" /> <code codeSystem="local" code="3097-3" displayName= "Serum or plasma urea nitrogen/creatinine mass ratio" /> <statusCode code="completed" /> <effectiveTime value="666183197505" /> < value unit="" xsi:type="PQ" value="24" /> <referenceRange> < observationRange> <text>NRG</text> </observationRange> </referenceRange> </observation> </component> < component> <observation moodCode="EVN" classCode="OBS"> < templateId root="2.16.840.1.145173.10.20.22.4.2" /> <id nullFlavor="NA " /> <code codeSystem="local" code="98876-4" displayName="Serum or plasma creatinine measurement with calculation of estimated glomerular filtration rate" /> <statusCode code="completed" /> < effectiveTime value="423124399391" /> <value unit="" xsi:type="PQ" value=">" /> <referenceRange> <observationRange> <text>NRG</text> </observationRange> </referenceRange > </observation> </component> <component> <observation moodCode="EVN" classCode="OBS"> <templateId root= "2.16.840.1.859277.10.20.22.4.2" /> <id nullFlavor="NA" /> < code codeSystem="local" code="2345-7" displayName="Serum or plasma glucose measurement (mass/volume)" /> <statusCode code="completed" /> <effectiveTime value="003316119072" /> <value unit="mg/dL" xsi:type="PQ " value="90" /> <referenceRange> <observationRange> <text>70-105</text> </observationRange> </ referenceRange> </observation> </component> <component> <observation moodCode="EVN" classCode="OBS"> <templateId root= "216.840.1.443058.10.20.22.4.2" /> <id nullFlavor="NA" /> < code codeSystem="local" code="54055-3" displayName="Serum or plasma calcium measurement (mass/volume)" /> <statusCode code="completed" /> <effectiveTime value="824417160204" /> <value unit="mg/dL" xsi:type="PQ " value="9.0" /> <referenceRange> <observationRange> <text>8.5-10.1</text> </observationRange> </ referenceRange> </observation> </component> <component> <observation moodCode="EVN" classCode="OBS"> <templateId root= "06.27.840.1.323659.10...4.2" /> <id nullFlavor="NA" /> < code codeSystem="local" code="1975" displayName="Serum or plasma total bilirubin measurement (mass/volume)" /> <statusCode code="completed" / > <effectiveTime value="790483658674" /> <value unit="mg/dL" xsi:type="PQ" value="0.3" /> <referenceRange> < observationRange> <text>0.1-1.0</text> </ observationRange> </referenceRange> </observation> </ component> <component> <observation moodCode="EVN" classCode="OBS"> <templateId root="16.840.1.215514.10.20.22.4.2" /> <id nullFlavor="NA" /> <code codeSystem="local" code="6768-6" displayName= "Serum or plasma alkaline phosphatase measurement (enzymatic activity/volume)" / > <statusCode code="completed" /> <effectiveTime value= "724228699257" /> <value unit="U/L" xsi:type="PQ" value="67" /> <referenceRange> <observationRange> <text>40-136</ text> </observationRange> </referenceRange> </ observation> </component> <component> <observation moodCode= "EVN" classCode="OBS"> <templateId root="2.16.840.1.232208.10.20.22.4.2 " /> <id nullFlavor="NA" /> <code codeSystem="local" code= "1919-12" displayName="Serum or plasma aspartate aminotransferase measurement ( enzymatic activity/volume)" /> <statusCode code="completed" /> <effectiveTime value="422566926989" /> <value unit="U/L" xsi:type="PQ " value="22" /> <referenceRange> <observationRange> <text>5-34</text> </observationRange> </referenceRange > </observation> </component> <component> <observation moodCode="EVN" classCode="OBS"> <templateId root= "2.16.840.1.203991.10.20.22.4.2" /> <id nullFlavor="NA" /> < code codeSystem="local" code="1741-10" displayName="Serum or plasma alanine aminotransferase measurement (enzymatic activity/volume)" /> < statusCode code="completed" /> <effectiveTime value="751803802249" /> <value unit="U/L" xsi:type="PQ" value="22" /> <referenceRange > <observationRange> <text>0-55</text> </ observationRange> </referenceRange> </observation> </ component> <component> <observation moodCode="EVN" classCode="OBS"> <templateId root="06.27.840.1.362458.10.20.22.4.2" /> <id nullFlavor="NA" /> <code codeSystem="local" code="2885-2" displayName= "Serum or plasma protein measurement (mass/volume)" /> <statusCode code ="completed" /> <effectiveTime value="794937254846" /> <value unit="g/dL" xsi:type="PQ" value="7.2" /> <referenceRange> < observationRange> <text>6.4-8.2</text> </ observationRange> </referenceRange> </observation> </ component> <component> <observation moodCode="EVN" classCode="OBS"> <templateId root="06.27.840.1.332404.10.2022.4.2" /> <id nullFlavor="NA" /> <code codeSystem="local" code="1751-7" displayName= "Serum or plasma albumin measurement (mass/volume)" /> <statusCode code ="completed" /> <effectiveTime value="247885823843" /> <value unit="g/dL" xsi:type="PQ" value="4.2" /> <referenceRange> < observationRange> <text>3.2-4.5</text> </ observationRange> </referenceRange> </observation> </ component> </organizer> </entry> <entry> <organizer moodCode="EVN" classCode="BATTERY"> <templateId root="16.840.1.380738.10.20.22.4.1" /> <id nullFlavor="NA" /> <code codeSystem="local" code="3040-3" displayName="Lipase" /> <statusCode code="completed" /> <component> <observation moodCode="EVN" classCode="OBS"> <templateId root= "06.27.840.1.685938.10..22.4.2" /> <id nullFlavor="NA" /> < code codeSystem="local" code="3040-3" displayName="Lipase" /> < statusCode code="completed" /> <effectiveTime value="572400235040" /> <value unit="U/L" xsi:type="PQ" value="42" /> <referenceRange > <observationRange> <text>8-78</text> </ observationRange> </referenceRange> </observation> </ component> </organizer> </entry> <entry> <organizer moodCode="EVN" classCode="BATTERY"> <templateId root="2.16.840.1.844637.10..22.4.1" /> <id nullFlavor="NA" /> <code codeSystem="local" code="5643-2" displayName="Serum or plasma ethanol measurement (mass/volume)" /> < statusCode code="completed" /> <component> <observation moodCode= "EVN" classCode="OBS"> <templateId root="2.16.840.1.096872.10..22.4.2 " /> <id nullFlavor="NA" /> <code codeSystem="local" code= "5643-2" displayName="Serum or plasma ethanol measurement (mass/volume)" /> <statusCode code="completed" /> <effectiveTime value= "831091405961" /> <value unit="mg/dL" xsi:type="PQ" value="<" /> <referenceRange> <observationRange> <text><10< /text> </observationRange> </referenceRange> </ observation> </component> </organizer> </entry> <entry> <organizer moodCode="EVN" classCode="BATTERY"> <templateId root= "2.16.840.1.471065.02.28.22.4.1" /> <id nullFlavor="NA" /> <code codeSystem="local" code="ORD3" displayName="Comprehensive Metabolic Panel" /> <statusCode code="completed" /> <component> <observation moodCode="EVN" classCode="OBS"> <templateId root= "06.27.840.1.488449...4.2" /> <id nullFlavor="NA" /> < code codeSystem="local" code="Res44" displayName="Albumin" /> < statusCode code="completed" /> <effectiveTime value="" /> <value unit="g/dL" xsi:type="PQ" value="3.7" /> < referenceRange> <observationRange> <text>3.6-5.1</text> </observationRange> </referenceRange> </observation > </component> <component> <observation moodCode="EVN" classCode="OBS"> <templateId root="840.1.607539.02.28.224.2" /> <id nullFlavor="NA" /> <code codeSystem="local" code="Res45" displayName="ALP" /> <statusCode code="completed" /> < effectiveTime value="" /> <value unit="U/L" xsi:type="PQ" value="60" /> <referenceRange> <observationRange> <text>35-130</text> </observationRange> </referenceRange > </observation> </component> <component> <observation moodCode="EVN" classCode="OBS"> <templateId root= "06.27.840.1.697831.02.28.22.4.2" /> <id nullFlavor="NA" /> < code codeSystem="local" code="Res46" displayName="ALT" /> <statusCode code="completed" /> <effectiveTime value="" /> < value unit="U/L" xsi:type="PQ" value="11" /> <referenceRange> <observationRange> <text>6-45</text> </ observationRange> </referenceRange> </observation> </ component> <component> <observation moodCode="EVN" classCode="OBS"> <templateId root="16.840.1.108193.10..22.4.2" /> <id nullFlavor="NA" /> <code codeSystem="local" code="Res61" displayName= "Anion Gap" /> <statusCode code="completed" /> <effectiveTime value="841238120847" /> <value unit="" xsi:type="PQ" value="15" /> <interpretationCode codeSystem="local" code="H" /> < referenceRange> <observationRange> <text>6-14</text> </observationRange> </referenceRange> </observation> </component> <component> <observation moodCode="EVN" classCode= "OBS"> <templateId root="06.27.840.1.774340.10...4.2" /> < id nullFlavor="NA" /> <code codeSystem="local" code="Res48" displayName ="AST" /> <statusCode code="completed" /> <effectiveTime value ="617686860366" /> <value unit="U/L" xsi:type="PQ" value="15" /> <referenceRange> <observationRange> <text>2-40</text > </observationRange> </referenceRange> </observation > </component> <component> <observation moodCode="EVN" classCode="OBS"> <templateId root="16.840.1.917054.10..4.2" /> <id nullFlavor="NA" /> <code codeSystem="local" code="Res26" displayName="BUN" /> <statusCode code="completed" /> < effectiveTime value="" /> <value unit="mg/dL" xsi:type="PQ " value="22" /> <referenceRange> <observationRange> <text>5-25</text> </observationRange> </referenceRange > </observation> </component> <component> <observation moodCode="EVN" classCode="OBS"> <templateId root= "216.840.1.024009.10...4.2" /> <id nullFlavor="NA" /> < code codeSystem="local" code="Res5" displayName="Calcium" /> < statusCode code="completed" /> <effectiveTime value="" /> <value unit="mg/dL" xsi:type="PQ" value="8.8" /> < referenceRange> <observationRange> <text>8.3-10.4</text > </observationRange> </referenceRange> </observation > </component> <component> <observation moodCode="EVN" classCode="OBS"> <templateId root="216.840.1.615295.10...4.2" /> <id nullFlavor="NA" /> <code codeSystem="local" code="Res21" displayName="Chloride" /> <statusCode code="completed" /> < effectiveTime value="509674700557" /> <value unit="mmol/L" xsi:type="PQ " value="109" /> <referenceRange> <observationRange> <text>95-114</text> </observationRange> </ referenceRange> </observation> </component> <component> <observation moodCode="EVN" classCode="OBS"> <templateId root= "16.840.1.128728.10.20.22.4.2" /> <id nullFlavor="NA" /> < code codeSystem="local" code="Res49" displayName="CO2" /> <statusCode code="completed" /> <effectiveTime value="047510665373" /> < value unit="mEq/L" xsi:type="PQ" value="20" /> <interpretationCode codeSystem="local" code="L" /> <referenceRange> < observationRange> <text>22-33</text> </observationRange > </referenceRange> </observation> </component> < component> <observation moodCode="EVN" classCode="OBS"> < templateId root="06.27.840.1.442160..22.4.2" /> <id nullFlavor="NA " /> <code codeSystem="local" code="Kzg452" displayName="Creat" /> <statusCode code="completed" /> <effectiveTime value= "041786951768" /> <value unit="mg/dL" xsi:type="PQ" value="0.74" /> <referenceRange> <observationRange> <text>0.50- 1.50</text> </observationRange> </referenceRange> </ observation> </component> <component> <observation moodCode= "EVN" classCode="OBS"> <templateId root="06.27.840.1.262165.10.20.22.4.2 " /> <id nullFlavor="NA" /> <code codeSystem="local" code= "Kvj697" displayName="eGFR" /> <statusCode code="completed" /> <effectiveTime value="832388182987" /> <value unit="mL/min/1.73m2" xsi:type="PQ" value="90" /> <referenceRange> < observationRange> <text>>59</text> </observationRange > </referenceRange> </observation> </component> < component> <observation moodCode="EVN" classCode="OBS"> < templateId root="06.27.840.1.969208.10.2022.4.2" /> <id nullFlavor="NA " /> <code codeSystem="local" code="Res7" displayName="Globulin" /> <statusCode code="completed" /> <effectiveTime value= "664372924298" /> <value unit="g/dL" xsi:type="PQ" value="2.1" /> <interpretationCode codeSystem="local" code="L" /> <referenceRange > <observationRange> <text>2.3-3.5</text> </ observationRange> </referenceRange> </observation> </ component> <component> <observation moodCode="EVN" classCode="OBS"> <templateId root="06.27.840.1.389648.10.4.2" /> <id nullFlavor="NA" /> <code codeSystem="local" code="Res60" displayName= "Glucose" /> <statusCode code="completed" /> <effectiveTime value="077419672144" /> <value unit="mg/dL" xsi:type="PQ" value="101" / > <referenceRange> <observationRange> <text>70- 110</text> </observationRange> </referenceRange> </ observation> </component> <component> <observation moodCode= "EVN" classCode="OBS"> <templateId root="06.27.840.1.198087.10.22.4.2 " /> <id nullFlavor="NA" /> <code codeSystem="local" code= "Res52" displayName="Osmo" /> <statusCode code="completed" /> <effectiveTime value="760836245794" /> <value unit="" xsi:type="PQ" value="294" /> <referenceRange> <observationRange> <text>280-295</text> </observationRange> </ referenceRange> </observation> </component> <component> <observation moodCode="EVN" classCode="OBS"> <templateId root= "216.840.1.946968.10..22.4.2" /> <id nullFlavor="NA" /> < code codeSystem="local" code="Res20" displayName="Potassium" /> < statusCode code="completed" /> <effectiveTime value="616332596123" /> <value unit="mmol/L" xsi:type="PQ" value="3.4" /> < interpretationCode codeSystem="local" code="L" /> <referenceRange> <observationRange> <text>3.5-5.3</text> </ observationRange> </referenceRange> </observation> </ component> <component> <observation moodCode="EVN" classCode="OBS"> <templateId root="06.27.840.1.955732.10...4.2" /> <id nullFlavor="NA" /> <code codeSystem="local" code="Res19" displayName= "Sodium" /> <statusCode code="completed" /> <effectiveTime value="139901093301" /> <value unit="mmol/L" xsi:type="PQ" value="141" /> <referenceRange> <observationRange> <text> 134-148</text> </observationRange> </referenceRange> </observation> </component> <component> <observation moodCode= "EVN" classCode="OBS"> <templateId root="16.840.1.638098.10...4.2 " /> <id nullFlavor="NA" /> <code codeSystem="local" code= "Res51" displayName="TBil" /> <statusCode code="completed" /> <effectiveTime value="198547324118" /> <value unit="mg/dL" xsi:type="PQ " value="< 0.2" /> <referenceRange> <observationRange> <text /> </observationRange> </referenceRange> </observation> </component> <component> <observation moodCode="EVN" classCode="OBS"> <templateId root= "06.27.840.1.322375...4.2" /> <id nullFlavor="NA" /> < code codeSystem="local" code="Res24" displayName="TP" /> <statusCode code="completed" /> <effectiveTime value="" /> < value unit="g/dL" xsi:type="PQ" value="5.8" /> <interpretationCode codeSystem="local" code="L" /> <referenceRange> < observationRange> <text>6.0-8.3</text> </ observationRange> </referenceRange> </observation> </ component> </organizer> </entry> <entry> <organizer moodCode="EVN" classCode="BATTERY"> <templateId root="06.27.840.1.583865.22.4.1" /> <id nullFlavor="NA" /> <code codeSystem="local" code="RKH024" displayName="Folate" /> <statusCode code="completed" /> <component> <observation moodCode="EVN" classCode="OBS"> <templateId root= "16.840.1.435319.10.2022.4.2" /> <id nullFlavor="NA" /> < code codeSystem="local" code="Tys107" displayName="Folate" /> < statusCode code="completed" /> <effectiveTime value="026655023954" /> <value unit="ng/mL" xsi:type="PQ" value="9.20" /> < referenceRange> <observationRange> <text>7.00-31.40</ text> </observationRange> </referenceRange> </ observation> </component> </organizer> </entry> <entry> <organizer moodCode="EVN" classCode="BATTERY"> <templateId root= "216.840.1.530780.10.20.22.4.1" /> <id nullFlavor="NA" /> <code codeSystem="local" code="EHE795" displayName="XM 2 LRPC" /> <statusCode code="completed" /> <component> <observation moodCode="EVN" classCode="OBS"> <templateId root="216.840.1.825786.10..22.4.2" /> <id nullFlavor="NA" /> <code codeSystem="local" code="Fzg713" displayName="CROSSMATCH" /> <statusCode code="completed" /> < effectiveTime value="" /> <value unit="" xsi:type="PQ" value="COMPATIBLE X 2" /> <referenceRange> <observationRange > <text /> </observationRange> </referenceRange > </observation> </component> <component> <observation moodCode="EVN" classCode="OBS"> <templateId root= "216.840.1.995912.10..22.4.2" /> <id nullFlavor="NA" /> < code codeSystem="local" code="Res87" displayName="Hct" /> <statusCode code="completed" /> <effectiveTime value="395085332608" /> < value unit="%" xsi:type="PQ" value="25.8" /> <interpretationCode codeSystem="local" code="L" /> <referenceRange> < observationRange> <text>36.0-46.0</text> </ observationRange> </referenceRange> </observation> </ component> <component> <observation moodCode="EVN" classCode="OBS"> <templateId root="06.27.840.1.051824.22.4.2" /> <id nullFlavor="NA" /> <code codeSystem="local" code="Huy622" displayName= "Hgb" /> <statusCode code="completed" /> <effectiveTime value= "[id number]" /> <value unit="g/dL" xsi:type="PQ" value="7.9" /> <interpretationCode codeSystem="local" code="L" /> <referenceRange > <observationRange> <text>13.0-15.0</text> < /observationRange> </referenceRange> </observation> </ component> </organizer> </entry> <entry> <organizer moodCode="EVN" classCode="BATTERY"> <templateId root="06.27.840.1.055514.22.4.1" /> <id nullFlavor="NA" /> <code codeSystem="local" code="ORD80" displayName=" Test-Serum" /> <statusCode code="completed" /> <component> <observation moodCode="EVN" classCode="OBS"> < templateId root="06.27.840.1.228312.22.4.2" /> <id nullFlavor="NA " /> <code codeSystem="local" code="Res82" displayName="Preg Test-S" / > <statusCode code="completed" /> <effectiveTime value= "225881011120" /> <value unit="" xsi:type="PQ" value="Negative" /> <referenceRange> <observationRange> <text>Negative </text> </observationRange> </referenceRange> </ observation> </component> </organizer> </entry> <entry> <organizer moodCode="EVN" classCode="BATTERY"> <templateId root= "16.840.1.548787.10..22.4.1" /> <id nullFlavor="NA" /> <code codeSystem="local" code="[id number]" displayName="Leukoreduced Packed RBC Unit Checkout" /> <statusCode code="completed" /> <component> < observation moodCode="EVN" classCode="OBS"> <templateId root= "216.840.1.296929.10...4.2" /> <id nullFlavor="NA" /> < code codeSystem="local" code="Rvj925" displayName="LRPRBC Checkout" /> <statusCode code="completed" /> <effectiveTime value="754880368708" /> <value unit="" xsi:type="PQ" value="Checked Out." /> < referenceRange> <observationRange> <text /> < /observationRange> </referenceRange> </observation> </ component> </organizer> </entry> <entry> <organizer moodCode="EVN" classCode="BATTERY"> <templateId root="216.840.1.448590.10..22.4.1" /> <id nullFlavor="NA" /> <code codeSystem="local" code="ISE2512" displayName="Leukoreduced Packed RBC Unit Checkout" /> <statusCode code= "completed" /> <component> <observation moodCode="EVN" classCode= "OBS"> <templateId root="06.27.840.1.150828.10..22.4.2" /> < id nullFlavor="NA" /> <code codeSystem="local" code="Pdh040" displayName="LRPRBC Checkout" /> <statusCode code="completed" /> <effectiveTime value="946265077273" /> <value unit="" xsi:type="PQ " value="Checked Out." /> <referenceRange> <observationRange > <text /> </observationRange> </referenceRange > </observation> </component> </organizer> </entry> <entry> <organizer moodCode="EVN" classCode="BATTERY"> <templateId root= "216.840.1.316139.02.28.22.4.1" /> <id nullFlavor="NA" /> <code codeSystem="local" code="ORD4" displayName="BMP" /> <statusCode code= "completed" /> <component> <observation moodCode="EVN" classCode= "OBS"> <templateId root="216.840.1.627340....4.2" /> < id nullFlavor="NA" /> <code codeSystem="local" code="Res61" displayName ="Anion Gap" /> <statusCode code="completed" /> < effectiveTime value="767962361520" /> <value unit="" xsi:type="PQ" value="15" /> <interpretationCode codeSystem="local" code="H" /> <referenceRange> <observationRange> <text>6-14</text > </observationRange> </referenceRange> </observation > </component> <component> <observation moodCode="EVN" classCode="OBS"> <templateId root="216.840.1.282984.10..22.4.2" /> <id nullFlavor="NA" /> <code codeSystem="local" code="Res26" displayName="BUN" /> <statusCode code="completed" /> < effectiveTime value="" /> <value unit="mg/dL" xsi:type="PQ " value="18" /> <referenceRange> <observationRange> <text>5-25</text> </observationRange> </referenceRange > </observation> </component> <component> <observation moodCode="EVN" classCode="OBS"> <templateId root= "216.840.1.200612.10.20.22.4.2" /> <id nullFlavor="NA" /> < code codeSystem="local" code="Res5" displayName="Calcium" /> < statusCode code="completed" /> <effectiveTime value="" /> <value unit="mg/dL" xsi:type="PQ" value="8.8" /> < referenceRange> <observationRange> <text>8.3-10.4</text > </observationRange> </referenceRange> </observation > </component> <component> <observation moodCode="EVN" classCode="OBS"> <templateId root="16.840.1.326331.10..22.4.2" /> <id nullFlavor="NA" /> <code codeSystem="local" code="Res21" displayName="Chloride" /> <statusCode code="completed" /> < effectiveTime value="" /> <value unit="mmol/L" xsi:type="PQ " value="110" /> <referenceRange> <observationRange> <text>95-114</text> </observationRange> </ referenceRange> </observation> </component> <component> <observation moodCode="EVN" classCode="OBS"> <templateId root= "16.840.1.439744.02.28.22.4.2" /> <id nullFlavor="NA" /> < code codeSystem="local" code="Res49" displayName="CO2" /> <statusCode code="completed" /> <effectiveTime value="" /> < value unit="mEq/L" xsi:type="PQ" value="22" /> <referenceRange> <observationRange> <text>22-33</text> </ observationRange> </referenceRange> </observation> </ component> <component> <observation moodCode="EVN" classCode="OBS"> <templateId root="216.840.1.244329.02.28.22.4.2" /> <id nullFlavor="NA" /> <code codeSystem="local" code="Gyv320" displayName= "Creat" /> <statusCode code="completed" /> <effectiveTime value="" /> <value unit="mg/dL" xsi:type="PQ" value="0.74" /> <referenceRange> <observationRange> <text> 0.50-1.50</text> </observationRange> </referenceRange> </observation> </component> <component> <observation moodCode="EVN" classCode="OBS"> <templateId root= "216.840.1.588033.02.28.22.4.2" /> <id nullFlavor="NA" /> < code codeSystem="local" code="Bjb432" displayName="eGFR" /> < statusCode code="completed" /> <effectiveTime value="" /> <value unit="mL/min/1.73m2" xsi:type="PQ" value="90" /> < referenceRange> <observationRange> <text>>59</text> </observationRange> </referenceRange> </observation> </component> <component> <observation moodCode="EVN" classCode ="OBS"> <templateId root="216.840.1.050748.10..22.4.2" /> < id nullFlavor="NA" /> <code codeSystem="local" code="Res60" displayName ="Glucose" /> <statusCode code="completed" /> <effectiveTime value="887543576429" /> <value unit="mg/dL" xsi:type="PQ" value="70" / > <referenceRange> <observationRange> <text>70- 110</text> </observationRange> </referenceRange> </ observation> </component> <component> <observation moodCode= "EVN" classCode="OBS"> <templateId root="16.840.1.778181.10...4.2 " /> <id nullFlavor="NA" /> <code codeSystem="local" code= "Res52" displayName="Osmo" /> <statusCode code="completed" /> <effectiveTime value="" /> <value unit="" xsi:type="PQ" value="296" /> <interpretationCode codeSystem="local" code="H" /> <referenceRange> <observationRange> <text>280-295</ text> </observationRange> </referenceRange> </ observation> </component> <component> <observation moodCode= "EVN" classCode="OBS"> <templateId root="06.27.840.1.881323.10..22.4.2 " /> <id nullFlavor="NA" /> <code codeSystem="local" code= "Res20" displayName="Potassium" /> <statusCode code="completed" /> <effectiveTime value="179696149075" /> <value unit="mmol/L" xsi: type="PQ" value="3.6" /> <referenceRange> <observationRange > <text>3.5-5.3</text> </observationRange> </ referenceRange> </observation> </component> <component> <observation moodCode="EVN" classCode="OBS"> <templateId root= "16.840.1.023837.10.20.22.4.2" /> <id nullFlavor="NA" /> < code codeSystem="local" code="Res19" displayName="Sodium" /> < statusCode code="completed" /> <effectiveTime value="056128880987" /> <value unit="mmol/L" xsi:type="PQ" value="143" /> < referenceRange> <observationRange> <text>134-148</text> </observationRange> </referenceRange> </observation > </component> </organizer> </entry> <entry> <organizer moodCode= "EVN" classCode="BATTERY"> <templateId root="06.27.840.1.036233.10.20.22.4.1 " /> <id nullFlavor="NA" /> <code codeSystem="local" code="70039-7" displayName="Complete blood count (CBC) with automated white blood cell (WBC) differential" /> <statusCode code="completed" /> <component> < observation moodCode="EVN" classCode="OBS"> <templateId root= "16.840.1.212374.10.20.22.4.2" /> <id nullFlavor="NA" /> < code codeSystem="local" code="6690-2" displayName="Blood leukocytes automated count (number/volume)" /> <statusCode code="completed" /> < effectiveTime value="829998964062" /> <value unit="10*3/uL" xsi:type= "PQ" value="10.1" /> <referenceRange> <observationRange> <text>4.3-11.0</text> </observationRange> </ referenceRange> </observation> </component> <component> <observation moodCode="EVN" classCode="OBS"> <templateId root= "216.840.1.049171.10..22.4.2" /> <id nullFlavor="NA" /> < code codeSystem="local" code="789-8" displayName="Blood erythrocytes automated count (number/volume)" /> <statusCode code="completed" /> < effectiveTime value="517420453686" /> <value unit="10*6/uL" xsi:type= "PQ" value="3.96" /> <interpretationCode codeSystem="local" code="" / > <referenceRange> <observationRange> <text> 4.35-5.85</text> </observationRange> </referenceRange> </observation> </component> <component> <observation moodCode="EVN" classCode="OBS"> <templateId root= "216.840.1.750316.10...4.2" /> <id nullFlavor="NA" /> < code codeSystem="local" code="96971-8" displayName="Venous blood hemoglobin measurement (mass/volume)" /> <statusCode code="completed" /> <effectiveTime value="868994179903" /> <value unit="g/dL" xsi:type="PQ " value="10.6" /> <interpretationCode codeSystem="local" code="" /> <referenceRange> <observationRange> <text>11.5- 16.0</text> </observationRange> </referenceRange> </ observation> </component> <component> <observation moodCode= "EVN" classCode="OBS"> <templateId root="216.840.1.481321.02.28.22.4.2 " /> <id nullFlavor="NA" /> <code codeSystem="local" code= "53285-2" displayName="Blood hematocrit (volume fraction)" /> < statusCode code="completed" /> <effectiveTime value="" /> <value unit="%" xsi:type="PQ" value="32" /> < interpretationCode codeSystem="local" code="" /> <referenceRange> <observationRange> <text>35-52</text> </ observationRange> </referenceRange> </observation> </ component> <component> <observation moodCode="EVN" classCode="OBS"> <templateId root="2.16.840.1.596777.10..4.2" /> <id nullFlavor="NA" /> <code codeSystem="local" code="787-2" displayName= "Automated erythrocyte mean corpuscular volume" /> <statusCode code= "completed" /> <effectiveTime value="" /> <value unit="[foz_us]" xsi:type="PQ" value="80" /> <referenceRange> <observationRange> <text>80-99</text> </ observationRange> </referenceRange> </observation> </ component> <component> <observation moodCode="EVN" classCode="OBS"> <templateId root="216.840.1.145124.10..4.2" /> <id nullFlavor="NA" /> <code codeSystem="local" code="785-6" displayName= "Automated erythrocyte mean corpuscular hemoglobin (mass per erythrocyte)" /> <statusCode code="completed" /> <effectiveTime value= "" /> <value unit="pg" xsi:type="PQ" value="27" /> <referenceRange> <observationRange> <text>25-34</text > </observationRange> </referenceRange> </observation > </component> <component> <observation moodCode="EVN" classCode="OBS"> <templateId root="216.840.1.239519.10.20.22.4.2" /> <id nullFlavor="NA" /> <code codeSystem="local" code="786-4" displayName="Automated erythrocyte mean corpuscular hemoglobin concentration measurement (mass/volume)" /> <statusCode code="completed" /> <effectiveTime value="153393766198" /> <value unit="g/dL" xsi:type="PQ " value="33" /> <referenceRange> <observationRange> <text>32-36</text> </observationRange> </ referenceRange> </observation> </component> <component> <observation moodCode="EVN" classCode="OBS"> <templateId root= "06.27.840.1.233529.10.20.22.4.2" /> <id nullFlavor="NA" /> < code codeSystem="local" code="788-0" displayName="Automated erythrocyte distribution width ratio" /> <statusCode code="completed" /> < effectiveTime value="570834719383" /> <value unit="%" xsi:type="PQ " value="22.0" /> <interpretationCode codeSystem="local" code="" /> <referenceRange> <observationRange> <text>10.0- 14.5</text> </observationRange> </referenceRange> </ observation> </component> <component> <observation moodCode= "EVN" classCode="OBS"> <templateId root="16.840.1.733647.10.20.22.4.2 " /> <id nullFlavor="NA" /> <code codeSystem="local" code="777 -3" displayName="Automated blood platelet count (count/volume)" /> < statusCode code="completed" /> <effectiveTime value="009123471412" /> <value unit="10*3/uL" xsi:type="PQ" value="313" /> < referenceRange> <observationRange> <text>130-400</text> </observationRange> </referenceRange> </observation > </component> <component> <observation moodCode="EVN" classCode="OBS"> <templateId root="2.16.840.1.754941.10.20.22.4.2" /> <id nullFlavor="NA" /> <code codeSystem="local" code="58115-0 " displayName="Automated blood platelet mean volume measurement" /> < statusCode code="completed" /> <effectiveTime value="980485504998" /> <value unit="[foz_us]" xsi:type="PQ" value="10.7" /> < interpretationCode codeSystem="local" code="" /> <referenceRange> <observationRange> <text>7.4-10.4</text> </ observationRange> </referenceRange> </observation> </ component> <component> <observation moodCode="EVN" classCode="OBS"> <templateId root="2.16.840.1.742696.10.20.22.4.2" /> <id nullFlavor="NA" /> <code codeSystem="local" code="770-8" displayName= "Automated blood neutrophils/100 leukocytes" /> <statusCode code= "completed" /> <effectiveTime value="797665976998" /> <value unit="%" xsi:type="PQ" value="76" /> <interpretationCode codeSystem ="local" code="" /> <referenceRange> <observationRange> <text>42-75</text> </observationRange> </ referenceRange> </observation> </component> <component> <observation moodCode="EVN" classCode="OBS"> <templateId root= "2.16.840.1.442356.10..22.4.2" /> <id nullFlavor="NA" /> < code codeSystem="local" code="736-9" displayName="Automated blood lymphocytes/ 100 leukocytes" /> <statusCode code="completed" /> < effectiveTime value="499108447351" /> <value unit="%" xsi:type="PQ " value="16" /> <referenceRange> <observationRange> <text>12-44</text> </observationRange> </ referenceRange> </observation> </component> <component> <observation moodCode="EVN" classCode="OBS"> <templateId root= "2.16.840.1.179038.10..4.2" /> <id nullFlavor="NA" /> < code codeSystem="local" code="01275-0" displayName="Blood monocytes/100 leukocytes" /> <statusCode code="completed" /> <effectiveTime value="691770463317" /> <value unit="%" xsi:type="PQ" value="6" /> <referenceRange> <observationRange> <text>0-12 </text> </observationRange> </referenceRange> </ observation> </component> <component> <observation moodCode= "EVN" classCode="OBS"> <templateId root="2.16.840.1.896425.10..22.4.2 " /> <id nullFlavor="NA" /> <code codeSystem="local" code="713 -8" displayName="Automated blood eosinophils/100 leukocytes" /> < statusCode code="completed" /> <effectiveTime value="025531975430" /> <value unit="%" xsi:type="PQ" value="1" /> <referenceRange > <observationRange> <text>0-10</text> </ observationRange> </referenceRange> </observation> </ component> <component> <observation moodCode="EVN" classCode="OBS"> <templateId root="2.16.840.1.706003.10.20.22.4.2" /> <id nullFlavor="NA" /> <code codeSystem="local" code="706-2" displayName= "Automated blood basophils/100 leukocytes" /> <statusCode code= "completed" /> <effectiveTime value="294314834175" /> <value unit="%" xsi:type="PQ" value="0" /> <referenceRange> < observationRange> <text>0-10</text> </observationRange> </referenceRange> </observation> </component> < component> <observation moodCode="EVN" classCode="OBS"> < templateId root="2.16.840.1.597508.10.20.22.4.2" /> <id nullFlavor="NA " /> <code codeSystem="local" code="751-8" displayName="Blood neutrophils automated count (number/volume)" /> <statusCode code= "completed" /> <effectiveTime value="518778777192" /> <value unit="10*3" xsi:type="PQ" value="7.7" /> <referenceRange> < observationRange> <text>1.8-7.8</text> </ observationRange> </referenceRange> </observation> </ component> <component> <observation moodCode="EVN" classCode="OBS"> <templateId root="2.16.840.1.840452.10.20.22.4.2" /> <id nullFlavor="NA" /> <code codeSystem="local" code="731-0" displayName= "Blood lymphocytes automated count (number/volume)" /> <statusCode code ="completed" /> <effectiveTime value="" /> <value unit="10*3" xsi:type="PQ" value="1.6" /> <referenceRange> < observationRange> <text>1.0-4.0</text> </ observationRange> </referenceRange> </observation> </ component> <component> <observation moodCode="EVN" classCode="OBS"> <templateId root="2.16.840.1.605709.10..4.2" /> <id nullFlavor="NA" /> <code codeSystem="local" code="742-7" displayName= "Blood monocytes automated count (number/volume)" /> <statusCode code= "completed" /> <effectiveTime value="" /> <value unit="10*3" xsi:type="PQ" value="0.6" /> <referenceRange> < observationRange> <text>0.0-1.0</text> </ observationRange> </referenceRange> </observation> </ component> <component> <observation moodCode="EVN" classCode="OBS"> <templateId root="2.16.840.1.237196.10.22.4.2" /> <id nullFlavor="NA" /> <code codeSystem="local" code="711-2" displayName= "Automated eosinophil count" /> <statusCode code="completed" /> <effectiveTime value="" /> <value unit="10*3/uL" xsi: type="PQ" value="0.1" /> <referenceRange> <observationRange > <text>0.0-0.3</text> </observationRange> </ referenceRange> </observation> </component> <component> <observation moodCode="EVN" classCode="OBS"> <templateId root= "2.16.840.1.746491.10..22.4.2" /> <id nullFlavor="NA" /> < code codeSystem="local" code="704-7" displayName="Automated blood basophil count (count/volume)" /> <statusCode code="completed" /> < effectiveTime value="682959329089" /> <value unit="10*3/uL" xsi:type= "PQ" value="0.0" /> <referenceRange> <observationRange> <text>0.0-0.1</text> </observationRange> </ referenceRange> </observation> </component> </organizer> </entry > <entry> <organizer moodCode="EVN" classCode="BATTERY"> <templateId root="2.16.840.1.517024.10.20.22.4.1" /> <id nullFlavor="NA" /> <code codeSystem="local" code="22866-7" displayName="Whole blood basic metabolic panel " /> <statusCode code="completed" /> <component> <observation moodCode="EVN" classCode="OBS"> <templateId root= "2.16.840.1.324283.10.20.22.4.2" /> <id nullFlavor="NA" /> < code codeSystem="local" code="2951-2" displayName="Serum or plasma sodium measurement (moles/volume)" /> <statusCode code="completed" /> <effectiveTime value="822815684280" /> <value unit="mmol/L" xsi:type= "PQ" value="140" /> <referenceRange> <observationRange> <text>135-145</text> </observationRange> </ referenceRange> </observation> </component> <component> <observation moodCode="EVN" classCode="OBS"> <templateId root= "2.16.840.1.820008.10.20.22.4.2" /> <id nullFlavor="NA" /> < code codeSystem="local" code="2823-" displayName="Serum or plasma potassium measurement (moles/volume)" /> <statusCode code="completed" /> <effectiveTime value="" /> <value unit="mmol/L" xsi:type= "PQ" value="3.8" /> <referenceRange> <observationRange> <text>3.6-5.0</text> </observationRange> </ referenceRange> </observation> </component> <component> <observation moodCode="EVN" classCode="OBS"> <templateId root= "2.16.840.1.912792.10..22.4.2" /> <id nullFlavor="NA" /> < code codeSystem="local" code="" displayName="Serum or plasma chloride measurement (moles/volume)" /> <statusCode code="completed" /> <effectiveTime value="" /> <value unit="mmol/L" xsi:type= "PQ" value="107" /> <referenceRange> <observationRange> <text>98-107</text> </observationRange> </ referenceRange> </observation> </component> <component> <observation moodCode="EVN" classCode="OBS"> <templateId root= "2.16.840.1.435474.10.20.22.4.2" /> <id nullFlavor="NA" /> < code codeSystem="local" code="2028-01" displayName="Carbon dioxide" /> < statusCode code="completed" /> <effectiveTime value="" /> <value unit="mmol/L" xsi:type="PQ" value="25" /> < referenceRange> <observationRange> <text>21-32</text> </observationRange> </referenceRange> </observation> </component> <component> <observation moodCode="EVN" classCode= "OBS"> <templateId root="2.16.840.1.013810.10.20.22.4.2" /> < id nullFlavor="NA" /> <code codeSystem="local" code="05362-6" displayName="Serum or plasma anion gap determination (moles/volume)" /> <statusCode code="completed" /> <effectiveTime value="201863183473" / > <value unit="mmol/L" xsi:type="PQ" value="8" /> < referenceRange> <observationRange> <text>5-14</text> </observationRange> </referenceRange> </observation> </component> <component> <observation moodCode="EVN" classCode= "OBS"> <templateId root="216.840.1.754994.10..22.4.2" /> < id nullFlavor="NA" /> <code codeSystem="local" code="3094-0" displayName="Serum or plasma urea nitrogen measurement (mass/volume)" /> <statusCode code="completed" /> <effectiveTime value="807141295698" /> <value unit="mg/dL" xsi:type="PQ" value="15" /> < referenceRange> <observationRange> <text>7-18</text> </observationRange> </referenceRange> </observation> </component> <component> <observation moodCode="EVN" classCode= "OBS"> <templateId root="2.16.840.1.492695.10.20.22.4.2" /> < id nullFlavor="NA" /> <code codeSystem="local" code="2160-0" displayName="Serum or plasma creatinine measurement (mass/volume)" /> < statusCode code="completed" /> <effectiveTime value="601170273386" /> <value unit="mg/dL" xsi:type="PQ" value="0.72" /> < referenceRange> <observationRange> <text>0.60-1.30</text > </observationRange> </referenceRange> </observation > </component> <component> <observation moodCode="EVN" classCode="OBS"> <templateId root="2.16.840.1.584896.10.20.22.4.2" /> <id nullFlavor="NA" /> <code codeSystem="local" code="3097-3" displayName="Serum or plasma urea nitrogen/creatinine mass ratio" /> < statusCode code="completed" /> <effectiveTime value="444396695410" /> <value unit="" xsi:type="PQ" value="21" /> <referenceRange> <observationRange> <text>NRG</text> </ observationRange> </referenceRange> </observation> </ component> <component> <observation moodCode="EVN" classCode="OBS"> <templateId root="2.16.840.1.019292.10..22.4.2" /> <id nullFlavor="NA" /> <code codeSystem="local" code="93394-4" displayName= "Serum or plasma creatinine measurement with calculation of estimated glomerular filtration rate" /> <statusCode code="completed" /> <effectiveTime value="115173755970" /> <value unit="" xsi:type="PQ" value=">" /> <referenceRange> <observationRange> <text>NRG</text> </observationRange> </referenceRange > </observation> </component> <component> <observation moodCode="EVN" classCode="OBS"> <templateId root= "2.16.840.1.290149.10.20.22.4.2" /> <id nullFlavor="NA" /> < code codeSystem="local" code="2345-7" displayName="Serum or plasma glucose measurement (mass/volume)" /> <statusCode code="completed" /> <effectiveTime value="189240532107" /> <value unit="mg/dL" xsi:type="PQ " value="82" /> <referenceRange> <observationRange> <text>70-105</text> </observationRange> </ referenceRange> </observation> </component> <component> <observation moodCode="EVN" classCode="OBS"> <templateId root= "2.16.840.1.968509.10.20.22.4.2" /> <id nullFlavor="NA" /> < code codeSystem="local" code="83306-6" displayName="Serum or plasma calcium measurement (mass/volume)" /> <statusCode code="completed" /> <effectiveTime value="579147985756" /> <value unit="mg/dL" xsi:type="PQ " value="9.6" /> <referenceRange> <observationRange> <text>8.5-10.1</text> </observationRange> </ referenceRange> </observation> </component> </organizer> </entry > <entry> <organizer moodCode="EVN" classCode="BATTERY"> <templateId root="2.16.840.1.558341.10.20.22.4.1" /> <id nullFlavor="NA" /> <code codeSystem="local" code="2118-8" displayName="Serum or plasma choriogonadotropin ( test) detection" /> <statusCode code= "completed" /> <component> <observation moodCode="EVN" classCode= "OBS"> <templateId root="2.16.840.1.248689.10.20.22.4.2" /> < id nullFlavor="NA" /> <code codeSystem="local" code="2118-8" displayName="Serum or plasma choriogonadotropin ( test) detection" /> <statusCode code="completed" /> <effectiveTime value= "" /> <value unit="" xsi:type="PQ" value="NEGATIVE" /> <referenceRange> <observationRange> <text>NEGATIVE </text> </observationRange> </referenceRange> </ observation> </component> </organizer> </entry> <entry> <organizer moodCode="EVN" classCode="BATTERY"> <templateId root= "2.16.840.1.698602.10.20.22.4.1" /> <id nullFlavor="NA" /> <code codeSystem="local" code="600-7" displayName="Bacterial blood culture" /> < statusCode code="completed" /> <component> <observation moodCode= "EVN" classCode="OBS"> <templateId root="2.16.840.1.203875.10.20.22.4.2 " /> <id nullFlavor="NA" /> <code codeSystem="local" code="600 -7" displayName="Bacterial blood culture" /> <statusCode code= "completed" /> <effectiveTime value="871015261817" /> <value unit="" xsi:type="PQ" value="NG" /> <referenceRange> < observationRange> <text>NRG</text> </observationRange> </referenceRange> </observation> </component> </ organizer> </entry> <entry> <organizer moodCode="EVN" classCode="BATTERY"> <templateId root="840.1.965279.10..4.1" /> <id nullFlavor= "NA" /> <code codeSystem="local" code="47451-3" displayName="Methicillin resistant Staphylococcus aureus (MRSA) screening culture" /> <statusCode code="completed" /> <component> <observation moodCode="EVN" classCode="OBS"> <templateId root="06.27.840.1.888949.02.28.22.4.2" /> <id nullFlavor="NA" /> <code codeSystem="local" code="MRSARES " displayName="MRSA SCREEN RESULT" /> <statusCode code="completed" /> <effectiveTime value="" /> <value unit="" xsi:type ="PQ" value="MRSA ISOLATED" /> <interpretationCode codeSystem="local" code="*" /> <referenceRange> <observationRange> <text>NRG</text> </observationRange> </referenceRange> </observation> </component> </organizer> </entry> <entry> < organizer moodCode="EVN" classCode="BATTERY"> <templateId root= "06.27.840.1.479412.02.28.22.4.1" /> <id nullFlavor="NA" /> <code codeSystem="local" code="600-7" displayName="Bacterial blood culture" /> < statusCode code="completed" /> <component> <observation moodCode= "EVN" classCode="OBS"> <templateId root="06.27.840.1.097043.02.28.22.4.2 " /> <id nullFlavor="NA" /> <code codeSystem="local" code="600 -7" displayName="Bacterial blood culture" /> <statusCode code= "completed" /> <effectiveTime value="241745037174" /> <value unit="" xsi:type="PQ" value="NG" /> <referenceRange> < observationRange> <text>NRG</text> </observationRange> </referenceRange> </observation> </component> </ organizer> </entry> <entry> <organizer moodCode="EVN" classCode="BATTERY"> <templateId root="216.840.1.366415.10..22.4.1" /> <id nullFlavor= "NA" /> <code codeSystem="local" code="49803-8" displayName="Urine drug screening test" /> <statusCode code="completed" /> <component> <observation moodCode="EVN" classCode="OBS"> <templateId root= "216.840.1.644323.10...4.2" /> <id nullFlavor="NA" /> < code codeSystem="local" code="15819-9" displayName="Urine phencyclidine detection by screening method" /> <statusCode code="completed" /> <effectiveTime value="" /> <value unit="" xsi:type="PQ " value="NEGATIVE" /> <referenceRange> <observationRange> <text>NEGATIVE</text> </observationRange> </ referenceRange> </observation> </component> <component> <observation moodCode="EVN" classCode="OBS"> <templateId root= "16.840.1.711319.10..22.4.2" /> <id nullFlavor="NA" /> < code codeSystem="local" code="46484-2" displayName="Urine benzodiazepines detection by screening method" /> <statusCode code="completed" /> <effectiveTime value="" /> <value unit="" xsi:type="PQ " value="NEGATIVE" /> <referenceRange> <observationRange> <text>NEGATIVE</text> </observationRange> </ referenceRange> </observation> </component> <component> <observation moodCode="EVN" classCode="OBS"> <templateId root= "2.16.840.1.712268.10..22.4.2" /> <id nullFlavor="NA" /> < code codeSystem="local" code="3397-7" displayName="Urine cocaine detection" /> <statusCode code="completed" /> <effectiveTime value= "" /> <value unit="" xsi:type="PQ" value="NEGATIVE" /> <referenceRange> <observationRange> <text>NEGATIVE </text> </observationRange> </referenceRange> </ observation> </component> <component> <observation moodCode= "EVN" classCode="OBS"> <templateId root="2.16.840.1.089365.10.22.4.2 " /> <id nullFlavor="NA" /> <code codeSystem="local" code= "35638-9" displayName="Urine amphetamines detection by screening method" /> <statusCode code="completed" /> <effectiveTime value= "" /> <value unit="" xsi:type="PQ" value="POSITIVE" /> <interpretationCode codeSystem="local" code="*" /> < referenceRange> <observationRange> <text>NEGATIVE</text > </observationRange> </referenceRange> </observation > </component> <component> <observation moodCode="EVN" classCode="OBS"> <templateId root="2.16.840.1.116589.10..22.4.2" /> <id nullFlavor="NA" /> <code codeSystem="local" code="81418-0 " displayName="Urine methamphetamine detection by screening method" /> <statusCode code="completed" /> <effectiveTime value="" /> <value unit="" xsi:type="PQ" value="NEGATIVE" /> < referenceRange> <observationRange> <text>NEGATIVE</text > </observationRange> </referenceRange> </observation > </component> <component> <observation moodCode="EVN" classCode="OBS"> <templateId root="2.16.840.1.987889.10..4.2" /> <id nullFlavor="NA" /> <code codeSystem="local" code="19867-8 " displayName="Urine cannabinoids detection by screening method" /> < statusCode code="completed" /> <effectiveTime value="" /> <value unit="" xsi:type="PQ" value="POSITIVE" /> < interpretationCode codeSystem="local" code="*" /> <referenceRange> <observationRange> <text>NEGATIVE</text> </ observationRange> </referenceRange> </observation> </ component> <component> <observation moodCode="EVN" classCode="OBS"> <templateId root="16.840.1.098247.10..4.2" /> <id nullFlavor="NA" /> <code codeSystem="local" code="64771-9" displayName= "Urine opiates detection by screening method" /> <statusCode code= "completed" /> <effectiveTime value="" /> <value unit="" xsi:type="PQ" value="NEGATIVE" /> <referenceRange> < observationRange> <text>NEGATIVE</text> </ observationRange> </referenceRange> </observation> </ component> <component> <observation moodCode="EVN" classCode="OBS"> <templateId root="216.840.1.900013.10..22.4.2" /> <id nullFlavor="NA" /> <code codeSystem="local" code="3377-9" displayName= "Urine barbiturates detection" /> <statusCode code="completed" /> <effectiveTime value="" /> <value unit="" xsi:type="PQ " value="NEGATIVE" /> <referenceRange> <observationRange> <text>NEGATIVE</text> </observationRange> </ referenceRange> </observation> </component> <component> <observation moodCode="EVN" classCode="OBS"> <templateId root= "216.840.1.840117.10.20.22.4.2" /> <id nullFlavor="NA" /> < code codeSystem="local" code="27727-4" displayName="Screening urine tricyclic antidepressants detection" /> <statusCode code="completed" /> <effectiveTime value="" /> <value unit="" xsi:type="PQ" value="NEGATIVE" /> <referenceRange> <observationRange> <text>NEGATIVE</text> </observationRange> </ referenceRange> </observation> </component> <component> <observation moodCode="EVN" classCode="OBS"> <templateId root= "16.840.1.546964.10.20.22.4.2" /> <id nullFlavor="NA" /> < code codeSystem="local" code="53541-6" displayName="Urine methadone detection by screening method" /> <statusCode code="completed" /> < effectiveTime value="" /> <value unit="" xsi:type="PQ" value="NEGATIVE" /> <referenceRange> <observationRange> <text>NEGATIVE</text> </observationRange> </ referenceRange> </observation> </component> <component> <observation moodCode="EVN" classCode="OBS"> <templateId root= "840.1.597301.10..4.2" /> <id nullFlavor="NA" /> < code codeSystem="local" code="60322-4" displayName="Urine oxycodone detection" / > <statusCode code="completed" /> <effectiveTime value= "" /> <value unit="" xsi:type="PQ" value="NEGATIVE" /> <referenceRange> <observationRange> <text>NEGATIVE </text> </observationRange> </referenceRange> </ observation> </component> <component> <observation moodCode= "EVN" classCode="OBS"> <templateId root="06.27.840.1.486175.02.28.22.4.2 " /> <id nullFlavor="NA" /> <code codeSystem="local" code= "01456-0" displayName="Urine propoxyphene detection" /> <statusCode code="completed" /> <effectiveTime value="" /> < value unit="" xsi:type="PQ" value="NEGATIVE" /> <referenceRange> <observationRange> <text>NEGATIVE</text> </ observationRange> </referenceRange> </observation> </ component> </organizer> </entry> <entry> <organizer moodCode="EVN" classCode="BATTERY"> <templateId root="06.27.840.1.386885.02.28.22.4.1" /> <id nullFlavor="NA" /> <code codeSystem="local" code="30475-2" displayName="Bacteria identification in isolate by anaerobe culture" /> < statusCode code="completed" /> <component> <observation moodCode= "EVN" classCode="OBS"> <templateId root="06.27.840.1.835598.1022.4.2 " /> <id nullFlavor="NA" /> <code codeSystem="local" code= "52925-9" displayName="Bacteria identification in isolate by anaerobe culture" / > <statusCode code="completed" /> <effectiveTime value= "207138904477" /> <value unit="" xsi:type="PQ" value="NOANA" /> <referenceRange> <observationRange> <text>NRG</text> </observationRange> </referenceRange> </observation > </component> </organizer> </entry> <entry> <organizer moodCode= "EVN" classCode="BATTERY"> <templateId root="216.840.1.475363.10..22.4.1 " /> <id nullFlavor="NA" /> <code codeSystem="local" code="664-3" displayName="Gram stain microscopy" /> <statusCode code="completed" /> <component> <observation moodCode="EVN" classCode="OBS"> < templateId root="216.840.1.247977.10..22.4.2" /> <id nullFlavor="NA " /> <code codeSystem="local" code="664-3" displayName="Gram stain microscopy" /> <statusCode code="completed" /> <effectiveTime value="206299542306" /> <value unit="" xsi:type="PQ" value="REPORTED ,0605." /> <referenceRange> <observationRange> <text>NRG</text> </observationRange> </ referenceRange> </observation> </component> </organizer> </entry > <entry> <organizer moodCode="EVN" classCode="BATTERY"> <templateId root="216.840.1.603516.10..22.4.1" /> <id nullFlavor="NA" /> <code codeSystem="local" code="6462-6" displayName="Bacteria identification in wound by culture" /> <statusCode code="completed" /> <component> < observation moodCode="EVN" classCode="OBS"> <templateId root= "216.840.1.710350.10.22.4.2" /> <id nullFlavor="NA" /> < code codeSystem="local" code="6462-6" displayName="Bacteria identification in wound by culture" /> <statusCode code="completed" /> < effectiveTime value="440314419878" /> <value unit="" xsi:type="PQ" value="SEE REPORT" /> <referenceRange> <observationRange> <text>NRG</text> </observationRange> </ referenceRange> </observation> </component> <component> <observation moodCode="EVN" classCode="OBS"> <templateId root= "16.840.1.199896.02.28.22.4.2" /> <id nullFlavor="NA" /> < code codeSystem="local" code="FTEXTERNAL" displayName="FREE TEXT EXTERNAL" /> <statusCode code="completed" /> <effectiveTime value= "" /> <value unit="" xsi:type="PQ" value="METHICILLIN- RESISTANT STAPH AUREUS" /> <referenceRange> < observationRange> <text>NRG</text> </observationRange> </referenceRange> </observation> </component> < component> <observation moodCode="EVN" classCode="OBS"> < templateId root="216.840.1.001274.02.28.22.4.2" /> <id nullFlavor="NA " /> <code codeSystem="local" code="G" displayName="QUANTITY OF GROWTH " /> <statusCode code="completed" /> <effectiveTime value= "" /> <value unit="" xsi:type="PQ" value="." /> < referenceRange> <observationRange> <text>NRG</text> </observationRange> </referenceRange> </observation> </component> </organizer> </entry> <entry> <organizer moodCode="EVN" classCode="BATTERY"> <templateId root="840.1.058680.10..22.4.1" /> <id nullFlavor="NA" /> <code codeSystem="local" code="RML-SENS" displayName="RML Sensitivity Panel" /> <statusCode code="completed" /> <component> <observation moodCode="EVN" classCode="OBS"> < templateId root="840.1.916070.10..22.4.2" /> <id nullFlavor="NA " /> <code codeSystem="local" code="383-0" displayName="Oxacillin susceptibility test by minimum inhibitory concentration" /> < statusCode code="completed" /> <effectiveTime value="938672522226" /> <value unit="" xsi:type="PQ" value="R" /> <interpretationCode codeSystem="local" code="*" /> <referenceRange> < observationRange> <text>NRG</text> </observationRange> </referenceRange> </observation> </component> < component> <observation moodCode="EVN" classCode="OBS"> < templateId root="840.1.565555.10..22.4.2" /> <id nullFlavor="NA " /> <code codeSystem="local" code="193-3" displayName="Clindamycin susceptibility test by minimum inhibitory concentration" /> < statusCode code="completed" /> <effectiveTime value="083868277638" /> <value unit="" xsi:type="PQ" value="<=" /> < interpretationCode codeSystem="local" code="*" /> <referenceRange> <observationRange> <text>NRG</text> </ observationRange> </referenceRange> </observation> </ component> <component> <observation moodCode="EVN" classCode="OBS"> <templateId root="216.840.1.270891.10..22.4.2" /> <id nullFlavor="NA" /> <code codeSystem="local" code="233-7" displayName= "Erythromycin susceptibility test by minimum inhibitory concentration" /> <statusCode code="completed" /> <effectiveTime value="442874892376 " /> <value unit="" xsi:type="PQ" value=">" /> < interpretationCode codeSystem="local" code="*" /> <referenceRange> <observationRange> <text>NRG</text> </ observationRange> </referenceRange> </observation> </ component> <component> <observation moodCode="EVN" classCode="OBS"> <templateId root="16.840.1.380525.02.28.22.4.2" /> <id nullFlavor="NA" /> <code codeSystem="local" code="516-5" displayName= "Trimethoprim/sulfamethoxazole susceptibility test by minimum inhibitoryconcentration" /> <statusCode code="completed" /> < effectiveTime value="963172330645" /> <value unit="" xsi:type="PQ" value="S" /> <interpretationCode codeSystem="local" code="*" /> <referenceRange> <observationRange> <text>NRG</text> </observationRange> </referenceRange> </observation > </component> <component> <observation moodCode="EVN" classCode="OBS"> <templateId root="216.840.1.235671.20.22.4.2" /> <id nullFlavor="NA" /> <code codeSystem="local" code="524-9" displayName="Vancomycin susceptibility test by minimum inhibitory concentration " /> <statusCode code="completed" /> <effectiveTime value= "755796917117" /> <value unit="" xsi:type="PQ" value="1" /> < interpretationCode codeSystem="local" code="*" /> <referenceRange> <observationRange> <text>NRG</text> </ observationRange> </referenceRange> </observation> </ component> <component> <observation moodCode="EVN" classCode="OBS"> <templateId root="16.840.1.012247.10.22.4.2" /> <id nullFlavor="NA" /> <code codeSystem="local" code="12413-9" displayName= "Levofloxacin susceptibility test by minimum inhibitory concentration" /> <statusCode code="completed" /> <effectiveTime value="036216290832 " /> <value unit="" xsi:type="PQ" value="4" /> < interpretationCode codeSystem="local" code="*" /> <referenceRange> <observationRange> <text>NRG</text> </ observationRange> </referenceRange> </observation> </ component> <component> <observation moodCode="EVN" classCode="OBS"> <templateId root="16.840.1.728896.10.22.4.2" /> <id nullFlavor="NA" /> <code codeSystem="local" code="428-3" displayName= "Rifampin susceptibility test by minimum inhibitory concentration" /> < statusCode code="completed" /> <effectiveTime value="432885322248" /> <value unit="" xsi:type="PQ" value="<=" /> < interpretationCode codeSystem="local" code="*" /> <referenceRange> <observationRange> <text>NRG</text> </ observationRange> </referenceRange> </observation> </ component> <component> <observation moodCode="EVN" classCode="OBS"> <templateId root="06.27.840.1.675531.10..22.4.2" /> <id nullFlavor="NA" /> <code codeSystem="local" code="76-0" displayName= "Cefazolin susceptibility test by minimum inhibitory concentration" /> <statusCode code="completed" /> <effectiveTime value="718693248367" /> <value unit="" xsi:type="PQ" value=">" /> < interpretationCode codeSystem="local" code="*" /> <referenceRange> <observationRange> <text>NRG</text> </ observationRange> </referenceRange> </observation> </ component> <component> <observation moodCode="EVN" classCode="OBS"> <templateId root="06.27.840.1.765751...4.2" /> <id nullFlavor="NA" /> <code codeSystem="local" code="03802-2" displayName= "Linezolid susceptibility test by minimum inhibitory concentration" /> <statusCode code="completed" /> <effectiveTime value="662562296980" /> <value unit="" xsi:type="PQ" value="2" /> < interpretationCode codeSystem="local" code="*" /> <referenceRange> <observationRange> <text>NRG</text> </ observationRange> </referenceRange> </observation> </ component> <component> <observation moodCode="EVN" classCode="OBS"> <templateId root="06.27.840.1.460341.10.2022.4.2" /> <id nullFlavor="NA" /> <code codeSystem="local" code="392-1" displayName= "Penicillin G susceptibility test by minimum inhibitory concentration" /> <statusCode code="completed" /> <effectiveTime value="341830753762 " /> <value unit="" xsi:type="PQ" value=">" /> < interpretationCode codeSystem="local" code="*" /> <referenceRange> <observationRange> <text>NRG</text> </ observationRange> </referenceRange> </observation> </ component> <component> <observation moodCode="EVN" classCode="OBS"> <templateId root="2.16.840.1.133654.10..4.2" /> <id nullFlavor="NA" /> <code codeSystem="local" code="41637-3" displayName= "Moxifloxacin susceptibility test by minimum inhibitory concentration" /> <statusCode code="completed" /> <effectiveTime value="610811789291 " /> <value unit="" xsi:type="PQ" value="S" /> < interpretationCode codeSystem="local" code="*" /> <referenceRange> <observationRange> <text>NRG</text> </ observationRange> </referenceRange> </observation> </ component> <component> <observation moodCode="EVN" classCode="OBS"> <templateId root="216.840.1.840846.10...4.2" /> <id nullFlavor="NA" /> <code codeSystem="local" code="335-0" displayName= "Minocycline susc SHAYNA" /> <statusCode code="completed" /> < effectiveTime value="147819268809" /> <value unit="" xsi:type="PQ" value="<=" /> <interpretationCode codeSystem="local" code="*" /> <referenceRange> <observationRange> <text>NRG</ text> </observationRange> </referenceRange> </ observation> </component> </organizer> </entry> <entry> <organizer moodCode="EVN" classCode="BATTERY"> <templateId root= "16.840.1.974823.10..22.4.1" /> <id nullFlavor="NA" /> <code codeSystem="local" code="51128-9" displayName="Complete urinalysis with reflex to culture" /> <statusCode code="completed" /> <component> < observation moodCode="EVN" classCode="OBS"> <templateId root= "216.840.1.727859.10..4.2" /> <id nullFlavor="NA" /> < code codeSystem="local" code="5778-6" displayName="Urine color determination" / > <statusCode code="completed" /> <effectiveTime value= "885127063742" /> <value unit="" xsi:type="PQ" value="YELLOW" /> <referenceRange> <observationRange> <text>NRG</text > </observationRange> </referenceRange> </observation > </component> <component> <observation moodCode="EVN" classCode="OBS"> <templateId root="06.27.840.1.437341.10.20.4.2" /> <id nullFlavor="NA" /> <code codeSystem="local" code="87440-9 " displayName="Urine clarity determination" /> <statusCode code= "completed" /> <effectiveTime value="532324803223" /> <value unit="" xsi:type="PQ" value="VERY CLOUDY" /> <interpretationCode codeSystem="local" code="*" /> <referenceRange> < observationRange> <text>NRG</text> </observationRange> </referenceRange> </observation> </component> < component> <observation moodCode="EVN" classCode="OBS"> < templateId root="216.840.1.472332.10.20.22.4.2" /> <id nullFlavor="NA " /> <code codeSystem="local" code="5803-2" displayName="Urine pH measurement by test strip" /> <statusCode code="completed" /> <effectiveTime value="877401500006" /> <value unit="" xsi:type="PQ" value="6.5" /> <referenceRange> <observationRange> <text>5-9</text> </observationRange> </referenceRange> </observation> </component> <component> <observation moodCode="EVN" classCode="OBS"> <templateId root= "2.840.1.798179.1022.4.2" /> <id nullFlavor="NA" /> < code codeSystem="local" code="5811-5" displayName="Specific gravity of urine by test strip" /> <statusCode code="completed" /> <effectiveTime value="770921916411" /> <value unit="" xsi:type="PQ" value="1.010" /> <interpretationCode codeSystem="local" code="" /> < referenceRange> <observationRange> <text>1.016-1.022</ text> </observationRange> </referenceRange> </ observation> </component> <component> <observation moodCode= "EVN" classCode="OBS"> <templateId root="216.840.1.636910.10.2022.4.2 " /> <id nullFlavor="NA" /> <code codeSystem="local" code= "70180-8" displayName="Urine protein assay by test strip, semi-quantitative" /> <statusCode code="completed" /> <effectiveTime value= "263515495280" /> <value unit="" xsi:type="PQ" value="4+" /> < referenceRange> <observationRange> <text>NEGATIVE</text > </observationRange> </referenceRange> </observation > </component> <component> <observation moodCode="EVN" classCode="OBS"> <templateId root="216.840.1.471461.10.22.4.2" /> <id nullFlavor="NA" /> <code codeSystem="local" code="35561-2 " displayName="Urine glucose detection by automated test strip" /> < statusCode code="completed" /> <effectiveTime value="546217695288" /> <value unit="" xsi:type="PQ" value="NEGATIVE" /> < referenceRange> <observationRange> <text>NEGATIVE</text > </observationRange> </referenceRange> </observation > </component> <component> <observation moodCode="EVN" classCode="OBS"> <templateId root="06.27.840.1.231666.10..4.2" /> <id nullFlavor="NA" /> <code codeSystem="local" code="17830-0 " displayName="Erythrocytes detection in urine sediment by light microscopy" /> <statusCode code="completed" /> <effectiveTime value= "683444735838" /> <value unit="" xsi:type="PQ" value="4+" /> < interpretationCode codeSystem="local" code="*" /> <referenceRange> <observationRange> <text>NEGATIVE</text> </ observationRange> </referenceRange> </observation> </ component> <component> <observation moodCode="EVN" classCode="OBS"> <templateId root="2.840.1.564259.02.28.224.2" /> <id nullFlavor="NA" /> <code codeSystem="local" code="47021-8" displayName= "Urine ketones detection by automated test strip" /> <statusCode code= "completed" /> <effectiveTime value="093848619143" /> <value unit="" xsi:type="PQ" value="1+" /> <interpretationCode codeSystem= "local" code="*" /> <referenceRange> <observationRange> <text>NEGATIVE</text> </observationRange> </ referenceRange> </observation> </component> <component> <observation moodCode="EVN" classCode="OBS"> <templateId root= "216.840.1.376595.02.28.224.2" /> <id nullFlavor="NA" /> < code codeSystem="local" code="5802-4" displayName="Urine nitrite detection by test strip" /> <statusCode code="completed" /> <effectiveTime value="527094180842" /> <value unit="" xsi:type="PQ" value="POSITIVE" / > <interpretationCode codeSystem="local" code="*" /> < referenceRange> <observationRange> <text>NEGATIVE</text > </observationRange> </referenceRange> </observation > </component> <component> <observation moodCode="EVN" classCode="OBS"> <templateId root="216.840.1.465077.02.28.22.4.2" /> <id nullFlavor="NA" /> <code codeSystem="local" code="5770-3" displayName="Urine total bilirubin detection by test strip" /> < statusCode code="completed" /> <effectiveTime value="980390276641" /> <value unit="" xsi:type="PQ" value="NEGATIVE" /> < referenceRange> <observationRange> <text>NEGATIVE</text > </observationRange> </referenceRange> </observation > </component> <component> <observation moodCode="EVN" classCode="OBS"> <templateId root="06.27.840.1.434983.10.2022.4.2" /> <id nullFlavor="NA" /> <code codeSystem="local" code="01663-5 " displayName="Urine urobilinogen measurement by automated test strip (mass/ volume)" /> <statusCode code="completed" /> <effectiveTime value="164364459214" /> <value unit="mg/dL" xsi:type="PQ" value="4" /> <interpretationCode codeSystem="local" code="*" /> < referenceRange> <observationRange> <text>NORMAL</text> </observationRange> </referenceRange> </observation> </component> <component> <observation moodCode="EVN" classCode ="OBS"> <templateId root="06.27.840.1.265640.10.2022.4.2" /> < id nullFlavor="NA" /> <code codeSystem="local" code="5799-2" displayName="Urine leukocyte esterase detection by dipstick" /> < statusCode code="completed" /> <effectiveTime value="517075846175" /> <value unit="" xsi:type="PQ" value="3+" /> < interpretationCode codeSystem="local" code="*" /> <referenceRange> <observationRange> <text>NEGATIVE</text> </ observationRange> </referenceRange> </observation> </ component> <component> <observation moodCode="EVN" classCode="OBS"> <templateId root="06.27.840.1.636537.10.2022.4.2" /> <id nullFlavor="NA" /> <code codeSystem="local" code="70225-1" displayName= "Automated urine sediment erythrocyte count by microscopy (number/high power field)" /> <statusCode code="completed" /> <effectiveTime value="816846118328" /> <value unit="[HPF]" xsi:type="PQ" value="" /> <interpretationCode codeSystem="local" code="*" /> < referenceRange> <observationRange> <text>NRG</text> </observationRange> </referenceRange> </observation> </component> <component> <observation moodCode="EVN" classCode= "OBS"> <templateId root="2.16.840.1.320334.10..22.4.2" /> < id nullFlavor="NA" /> <code codeSystem="local" code="5821-4" displayName="Automated urine sediment leukocyte count by microscopy (number/ high power field)" /> <statusCode code="completed" /> < effectiveTime value="296690406725" /> <value unit="" xsi:type="PQ" value="TNTC" /> <interpretationCode codeSystem="local" code="*" /> <referenceRange> <observationRange> <text>NRG</ text> </observationRange> </referenceRange> </ observation> </component> <component> <observation moodCode= "EVN" classCode="OBS"> <templateId root="2.16.840.1.790696.10..22.4.2 " /> <id nullFlavor="NA" /> <code codeSystem="local" code= "37131-4" displayName="Bacteria detection in urine sediment by light microscopy " /> <statusCode code="completed" /> <effectiveTime value= "108483757832" /> <value unit="" xsi:type="PQ" value="LARGE" /> <interpretationCode codeSystem="local" code="*" /> <referenceRange> <observationRange> <text>NRG</text> </ observationRange> </referenceRange> </observation> </ component> <component> <observation moodCode="EVN" classCode="OBS"> <templateId root="216.840.1.039813.10.2022.4.2" /> <id nullFlavor="NA" /> <code codeSystem="local" code="22438-8" displayName= "Squamous epithelial cells detection in urine sediment by light microscopy" /> <statusCode code="completed" /> <effectiveTime value= "107311932170" /> <value unit="" xsi:type="PQ" value="03-05" /> <interpretationCode codeSystem="local" code="*" /> <referenceRange> <observationRange> <text>NRG</text> </ observationRange> </referenceRange> </observation> </ component> <component> <observation moodCode="EVN" classCode="OBS"> <templateId root="06.27.840.1.407108.10.4.2" /> <id nullFlavor="NA" /> <code codeSystem="local" code="35656-9" displayName= "Crystals detection in urine sediment by light microscopy" /> < statusCode code="completed" /> <effectiveTime value="068815402894" /> <value unit="" xsi:type="PQ" value="NONE" /> <referenceRange> <observationRange> <text>NRG</text> </ observationRange> </referenceRange> </observation> </ component> <component> <observation moodCode="EVN" classCode="OBS"> <templateId root="06.27.840.1.285462.102022.4.2" /> <id nullFlavor="NA" /> <code codeSystem="local" code="71702-0" displayName= "Casts detection in urine sediment by light microscopy" /> <statusCode code="completed" /> <effectiveTime value="768890373201" /> < value unit="" xsi:type="PQ" value="NONE" /> <referenceRange> <observationRange> <text>NRG</text> </observationRange > </referenceRange> </observation> </component> < component> <observation moodCode="EVN" classCode="OBS"> < templateId root="2.16.840.1.913720.10..4.2" /> <id nullFlavor="NA " /> <code codeSystem="local" code="8247-9" displayName="Mucus detection in urine sediment by light microscopy" /> <statusCode code= "completed" /> <effectiveTime value="889161969251" /> <value unit="" xsi:type="PQ" value="NEGATIVE" /> <referenceRange> < observationRange> <text>NRG</text> </observationRange> </referenceRange> </observation> </component> < component> <observation moodCode="EVN" classCode="OBS"> < templateId root="216.840.1.369309.10..4.2" /> <id nullFlavor="NA " /> <code codeSystem="local" code="47459-4" displayName="Complete urinalysis with reflex to culture" /> <statusCode code="completed" /> <effectiveTime value="124903475407" /> <value unit="" xsi:type ="PQ" value="YES" /> <referenceRange> <observationRange> <text>NRG</text> </observationRange> </ referenceRange> </observation> </component> </organizer> </entry > <entry> <organizer moodCode="EVN" classCode="BATTERY"> <templateId root="2.16.840.1.776397.10..4.1" /> <id nullFlavor="NA" /> <code codeSystem="local" code="630-4" displayName="Bacterial urine culture" /> < statusCode code="completed" /> <component> <observation moodCode= "EVN" classCode="OBS"> <templateId root="06.27.840.1.784309.10.4.2 " /> <id nullFlavor="NA" /> <code codeSystem="local" code="630 -4" displayName="Bacterial urine culture" /> <statusCode code= "completed" /> <effectiveTime value="528795505868" /> <value unit="" xsi:type="PQ" value="399473837" /> <referenceRange> <observationRange> <text>NRG</text> </observationRange> </referenceRange> </observation> </component> < component> <observation moodCode="EVN" classCode="OBS"> < templateId root="840.1.056701.02.28.22.4.2" /> <id nullFlavor="NA " /> <code codeSystem="local" code="CC" displayName="COLONY COUNT" /> <statusCode code="completed" /> <effectiveTime value= "224177251752" /> <value unit="" xsi:type="PQ" value=">100,000/ML" / > <referenceRange> <observationRange> <text>NRG </text> </observationRange> </referenceRange> </ observation> </component> <component> <observation moodCode= "EVN" classCode="OBS"> <templateId root="06.27.840.1.547137.02.28.22.4.2 " /> <id nullFlavor="NA" /> <code codeSystem="local" code= "FTXENTRY" displayName="FTX;REPORTABLE" /> <statusCode code="completed " /> <effectiveTime value="995744336486" /> <value unit="" xsi :type="PQ" value="SUSCEPTIBILITY REPORTED 03-21-2018,1005" /> < referenceRange> <observationRange> <text>NRG</text> </observationRange> </referenceRange> </observation> </component> </organizer> </entry> <entry> <organizer moodCode="EVN" classCode="BATTERY"> <templateId root="216.840.1.127895.10..22.4.1" /> <id nullFlavor="NA" /> <code codeSystem="local" code="RML-SENS" displayName="RML Sensitivity Panel" /> <statusCode code="completed" /> <component> <observation moodCode="EVN" classCode="OBS"> < templateId root="216.840.1.718111.10..22.4.2" /> <id nullFlavor="NA " /> <code codeSystem="local" code="267-5" displayName="Gentamicin susceptibility test by minimum inhibitory concentration" /> < statusCode code="completed" /> <effectiveTime value="753621959241" /> <value unit="" xsi:type="PQ" value="<=" /> < interpretationCode codeSystem="local" code="*" /> <referenceRange> <observationRange> <text>NRG</text> </ observationRange> </referenceRange> </observation> </ component> <component> <observation moodCode="EVN" classCode="OBS"> <templateId root="216.840.1.669436.10..22.4.2" /> <id nullFlavor="NA" /> <code codeSystem="local" code="516-5" displayName= "Trimethoprim/sulfamethoxazole susceptibility test by minimum inhibitoryconcentration" /> <statusCode code="completed" /> < effectiveTime value="389695465662" /> <value unit="" xsi:type="PQ" value=">" /> <interpretationCode codeSystem="local" code="*" /> <referenceRange> <observationRange> <text>NRG</ text> </observationRange> </referenceRange> </ observation> </component> <component> <observation moodCode= "EVN" classCode="OBS"> <templateId root="2.16.840.1.356174.10.20.22.4.2 " /> <id nullFlavor="NA" /> <code codeSystem="local" code= "95223-2" displayName="Levofloxacin susceptibility test by minimum inhibitory concentration" /> <statusCode code="completed" /> < effectiveTime value="930188809003" /> <value unit="" xsi:type="PQ" value="<=" /> <interpretationCode codeSystem="local" code="*" /> <referenceRange> <observationRange> <text>NRG</ text> </observationRange> </referenceRange> </ observation> </component> <component> <observation moodCode= "EVN" classCode="OBS"> <templateId root="2.16.840.1.301851.10.20.22.4.2 " /> <id nullFlavor="NA" /> <code codeSystem="local" code="28- 1" displayName="Ampicillin susceptibility test by minimum inhibitory concentration" /> <statusCode code="completed" /> < effectiveTime value="024572455657" /> <value unit="" xsi:type="PQ" value=">" /> <interpretationCode codeSystem="local" code="*" /> <referenceRange> <observationRange> <text>NRG</ text> </observationRange> </referenceRange> </ observation> </component> <component> <observation moodCode= "EVN" classCode="OBS"> <templateId root="216.840.1.381911.10..22.4.2 " /> <id nullFlavor="NA" /> <code codeSystem="local" code="76- 0" displayName="Cefazolin susceptibility test by minimum inhibitory concentration" /> <statusCode code="completed" /> < effectiveTime value="204686472360" /> <value unit="" xsi:type="PQ" value="2" /> <interpretationCode codeSystem="local" code="*" /> <referenceRange> <observationRange> <text>NRG</text> </observationRange> </referenceRange> </observation > </component> <component> <observation moodCode="EVN" classCode="OBS"> <templateId root="2.840.1.009124..22.4.2" /> <id nullFlavor="NA" /> <code codeSystem="local" code="141-2" displayName="Ceftriaxone susceptibility test by minimum inhibitory concentration " /> <statusCode code="completed" /> <effectiveTime value= "355504110064" /> <value unit="" xsi:type="PQ" value="<=" /> <interpretationCode codeSystem="local" code="*" /> <referenceRange> <observationRange> <text>NRG</text> </ observationRange> </referenceRange> </observation> </ component> <component> <observation moodCode="EVN" classCode="OBS"> <templateId root="216.840.1.205097.10.20.22.4.2" /> <id nullFlavor="NA" /> <code codeSystem="local" code="185-9" displayName= "Ciprofloxacin susceptibility test by minimum inhibitory concentration" /> <statusCode code="completed" /> <effectiveTime value="874340361962 " /> <value unit="" xsi:type="PQ" value="<=" /> < interpretationCode codeSystem="local" code="*" /> <referenceRange> <observationRange> <text>NRG</text> </ observationRange> </referenceRange> </observation> </ component> <component> <observation moodCode="EVN" classCode="OBS"> <templateId root="216.840.1.859799.10..22.4.2" /> <id nullFlavor="NA" /> <code codeSystem="local" code="6652-2" displayName= "Meropenem susceptibility test by minimum inhibitory concentration" /> <statusCode code="completed" /> <effectiveTime value="308823503991" /> <value unit="" xsi:type="PQ" value="<=" /> < interpretationCode codeSystem="local" code="*" /> <referenceRange> <observationRange> <text>NRG</text> </ observationRange> </referenceRange> </observation> </ component> <component> <observation moodCode="EVN" classCode="OBS"> <templateId root="216.840.1.443982.10..22.4.2" /> <id nullFlavor="NA" /> <code codeSystem="local" code="363-2" displayName= "Nitrofurantoin susceptibility test by minimum inhibitory concentration" /> <statusCode code="completed" /> <effectiveTime value= "091546100935" /> <value unit="" xsi:type="PQ" value="<=" /> <interpretationCode codeSystem="local" code="*" /> <referenceRange> <observationRange> <text>NRG</text> </ observationRange> </referenceRange> </observation> </ component> <component> <observation moodCode="EVN" classCode="OBS"> <templateId root="216.840.1.266244.10.20.22.4.2" /> <id nullFlavor="NA" /> <code codeSystem="local" code="20" displayName= "Amoxicillin and clavulanate potassium susc SHAYNA" /> <statusCode code= "completed" /> <effectiveTime value="686921868983" /> <value unit="" xsi:type="PQ" value="=" /> <interpretationCode codeSystem= "local" code="*" /> <referenceRange> <observationRange> <text>NRG</text> </observationRange> </ referenceRange> </observation> </component> </organizer> </entry > <entry> <organizer moodCode="EVN" classCode="BATTERY"> <templateId root="216.840.1.091416.10.20.22.4.1" /> <id nullFlavor="NA" /> <code codeSystem="local" code="69258-4" displayName="Complete blood count (CBC) with automated white blood cell (WBC) differential" /> <statusCode code= "completed" /> <component> <observation moodCode="EVN" classCode= "OBS"> <templateId root="2.16.840.1.854771.10.20.22.4.2" /> < id nullFlavor="NA" /> <code codeSystem="local" code="6690-2" displayName="Blood leukocytes automated count (number/volume)" /> < statusCode code="completed" /> <effectiveTime value="212334127504" /> <value unit="10*3/uL" xsi:type="PQ" value="18.7" /> < interpretationCode codeSystem="local" code="" /> <referenceRange> <observationRange> <text>4.3-11.0</text> </ observationRange> </referenceRange> </observation> </ component> <component> <observation moodCode="EVN" classCode="OBS"> <templateId root="216.840.1.971760.10.20.22.4.2" /> <id nullFlavor="NA" /> <code codeSystem="local" code="789-8" displayName= "Blood erythrocytes automated count (number/volume)" /> <statusCode code="completed" /> <effectiveTime value="864749563664" /> < value unit="10*6/uL" xsi:type="PQ" value="4.35" /> <referenceRange> <observationRange> <text>4.35-5.85</text> </ observationRange> </referenceRange> </observation> </ component> <component> <observation moodCode="EVN" classCode="OBS"> <templateId root="06.27.840.1.236306.10.20.22.4.2" /> <id nullFlavor="NA" /> <code codeSystem="local" code="31802-4" displayName= "Venous blood hemoglobin measurement (mass/volume)" /> <statusCode code ="completed" /> <effectiveTime value="581078147747" /> <value unit="g/dL" xsi:type="PQ" value="10.7" /> <interpretationCode codeSystem="local" code="" /> <referenceRange> < observationRange> <text>11.5-16.0</text> </ observationRange> </referenceRange> </observation> </ component> <component> <observation moodCode="EVN" classCode="OBS"> <templateId root="216.840.1.525990.10.20.22.4.2" /> <id nullFlavor="NA" /> <code codeSystem="local" code="59930-2" displayName= "Blood hematocrit (volume fraction)" /> <statusCode code="completed" / > <effectiveTime value="016221511132" /> <value unit="%" xsi:type="PQ" value="33" /> <interpretationCode codeSystem="local" code ="" /> <referenceRange> <observationRange> < text>35-52</text> </observationRange> </referenceRange> </observation> </component> <component> <observation moodCode="EVN" classCode="OBS"> <templateId root= "2.16.840.1.253191.10.20.22.4.2" /> <id nullFlavor="NA" /> < code codeSystem="local" code="787-2" displayName="Automated erythrocyte mean corpuscular volume" /> <statusCode code="completed" /> < effectiveTime value="717282193279" /> <value unit="[foz_us]" xsi:type= "PQ" value="75" /> <interpretationCode codeSystem="local" code="" /> <referenceRange> <observationRange> <text>80- 99</text> </observationRange> </referenceRange> </ observation> </component> <component> <observation moodCode= "EVN" classCode="OBS"> <templateId root="2.16.840.1.422727.10.20.22.4.2 " /> <id nullFlavor="NA" /> <code codeSystem="local" code="785 -6" displayName="Automated erythrocyte mean corpuscular hemoglobin (mass per erythrocyte)" /> <statusCode code="completed" /> < effectiveTime value="465808870158" /> <value unit="pg" xsi:type="PQ" value="25" /> <referenceRange> <observationRange> <text>25-34</text> </observationRange> </referenceRange > </observation> </component> <component> <observation moodCode="EVN" classCode="OBS"> <templateId root= "216.840.1.508154.10..22.4.2" /> <id nullFlavor="NA" /> < code codeSystem="local" code="786-4" displayName="Automated erythrocyte mean corpuscular hemoglobin concentration measurement (mass/volume)" /> < statusCode code="completed" /> <effectiveTime value="877502401464" /> <value unit="g/dL" xsi:type="PQ" value="33" /> <referenceRange > <observationRange> <text>32-36</text> </ observationRange> </referenceRange> </observation> </ component> <component> <observation moodCode="EVN" classCode="OBS"> <templateId root="216.840.1.937485.10..4.2" /> <id nullFlavor="NA" /> <code codeSystem="local" code="788-0" displayName= "Automated erythrocyte distribution width ratio" /> <statusCode code= "completed" /> <effectiveTime value="447126032949" /> <value unit="%" xsi:type="PQ" value="21.0" /> <interpretationCode codeSystem="local" code="" /> <referenceRange> < observationRange> <text>10.0-14.5</text> </ observationRange> </referenceRange> </observation> </ component> <component> <observation moodCode="EVN" classCode="OBS"> <templateId root="216.840.1.345214.10.20.22.4.2" /> <id nullFlavor="NA" /> <code codeSystem="local" code="777-3" displayName= "Automated blood platelet count (count/volume)" /> <statusCode code= "completed" /> <effectiveTime value="254208538451" /> <value unit="10*3/uL" xsi:type="PQ" value="348" /> <referenceRange> <observationRange> <text>130-400</text> </ observationRange> </referenceRange> </observation> </ component> <component> <observation moodCode="EVN" classCode="OBS"> <templateId root="2.16.840.1.656285.10.20.22.4.2" /> <id nullFlavor="NA" /> <code codeSystem="local" code="46884-2" displayName= "Automated blood platelet mean volume measurement" /> <statusCode code= "completed" /> <effectiveTime value="026650447403" /> <value unit="[chi [facility]]" xsi:type="PQ" value="11.0" /> <interpretationCode codeSystem="local" code="" /> <referenceRange> < observationRange> <text>7.4-10.4</text> </ observationRange> </referenceRange> </observation> </ component> <component> <observation moodCode="EVN" classCode="OBS"> <templateId root="2.16.840.1.935859.10.20.22.4.2" /> <id nullFlavor="NA" /> <code codeSystem="local" code="770-8" displayName= "Automated blood neutrophils/100 leukocytes" /> <statusCode code= "completed" /> <effectiveTime value="463957743941" /> <value unit="%" xsi:type="PQ" value="86" /> <interpretationCode codeSystem ="local" code="" /> <referenceRange> <observationRange> <text>42-75</text> </observationRange> </ referenceRange> </observation> </component> <component> <observation moodCode="EVN" classCode="OBS"> <templateId root= "2.16.840.1.457489.10.20.22.4.2" /> <id nullFlavor="NA" /> < code codeSystem="local" code="736-9" displayName="Automated blood lymphocytes/ 100 leukocytes" /> <statusCode code="completed" /> < effectiveTime value="716587964321" /> <value unit="%" xsi:type="PQ " value="6" /> <interpretationCode codeSystem="local" code="" /> <referenceRange> <observationRange> <text>12-44</ text> </observationRange> </referenceRange> </ observation> </component> <component> <observation moodCode= "EVN" classCode="OBS"> <templateId root="2.16.840.1.704873.02.28.22.4.2 " /> <id nullFlavor="NA" /> <code codeSystem="local" code= "63802-1" displayName="Blood monocytes/100 leukocytes" /> <statusCode code="completed" /> <effectiveTime value="725985704353" /> < value unit="%" xsi:type="PQ" value="8" /> <referenceRange> <observationRange> <text>0-12</text> </ observationRange> </referenceRange> </observation> </ component> <component> <observation moodCode="EVN" classCode="OBS"> <templateId root="2.16.840.1.962267.10.20.22.4.2" /> <id nullFlavor="NA" /> <code codeSystem="local" code="713-8" displayName= "Automated blood eosinophils/100 leukocytes" /> <statusCode code= "completed" /> <effectiveTime value="703320399666" /> <value unit="%" xsi:type="PQ" value="0" /> <referenceRange> < observationRange> <text>0-10</text> </observationRange> </referenceRange> </observation> </component> < component> <observation moodCode="EVN" classCode="OBS"> < templateId root="2.16.840.1.205418.10..22.4.2" /> <id nullFlavor="NA " /> <code codeSystem="local" code="706-2" displayName="Automated blood basophils/100 leukocytes" /> <statusCode code="completed" /> <effectiveTime value="590383027352" /> <value unit="%" xsi: type="PQ" value="0" /> <referenceRange> <observationRange> <text>0-10</text> </observationRange> </ referenceRange> </observation> </component> <component> <observation moodCode="EVN" classCode="OBS"> <templateId root= "2.16.840.1.516775.10..22.4.2" /> <id nullFlavor="NA" /> < code codeSystem="local" code="751-8" displayName="Blood neutrophils automated count (number/volume)" /> <statusCode code="completed" /> < effectiveTime value="339490632886" /> <value unit="10*3" xsi:type="PQ" value="16.0" /> <interpretationCode codeSystem="local" code="" /> <referenceRange> <observationRange> <text>1.8-7.8 </text> </observationRange> </referenceRange> </ observation> </component> <component> <observation moodCode= "EVN" classCode="OBS"> <templateId root="2.16.840.1.380212.102022.4.2 " /> <id nullFlavor="NA" /> <code codeSystem="local" code="731 -0" displayName="Blood lymphocytes automated count (number/volume)" /> <statusCode code="completed" /> <effectiveTime value="409913596557" /> <value unit="10*3" xsi:type="PQ" value="1.2" /> < referenceRange> <observationRange> <text>1.0-4.0</text> </observationRange> </referenceRange> </observation > </component> <component> <observation moodCode="EVN" classCode="OBS"> <templateId root="06.27.840.1.985821.1022.4.2" /> <id nullFlavor="NA" /> <code codeSystem="local" code="742-7" displayName="Blood monocytes automated count (number/volume)" /> < statusCode code="completed" /> <effectiveTime value="318350851779" /> <value unit="10*3" xsi:type="PQ" value="1.5" /> < interpretationCode codeSystem="local" code="" /> <referenceRange> <observationRange> <text>0.0-1.0</text> </ observationRange> </referenceRange> </observation> </ component> <component> <observation moodCode="EVN" classCode="OBS"> <templateId root="06.27.840.1.878114.10.2022.4.2" /> <id nullFlavor="NA" /> <code codeSystem="local" code="711-2" displayName= "Automated eosinophil count" /> <statusCode code="completed" /> <effectiveTime value="918686512287" /> <value unit="10*3/uL" xsi: type="PQ" value="0.0" /> <referenceRange> <observationRange > <text>0.0-0.3</text> </observationRange> </ referenceRange> </observation> </component> <component> <observation moodCode="EVN" classCode="OBS"> <templateId root= "216.840.1.827848.10..22.4.2" /> <id nullFlavor="NA" /> < code codeSystem="local" code="704-7" displayName="Automated blood basophil count (count/volume)" /> <statusCode code="completed" /> < effectiveTime value="891626631876" /> <value unit="10*3/uL" xsi:type= "PQ" value="0.0" /> <referenceRange> <observationRange> <text>0.0-0.1</text> </observationRange> </ referenceRange> </observation> </component> </organizer> </entry > <entry> <organizer moodCode="EVN" classCode="BATTERY"> <templateId root="216.840.1.809131.10...4.1" /> <id nullFlavor="NA" /> <code codeSystem="local" code="51242-0" displayName="Blood lactic acid measurement ( moles/volume)" /> <statusCode code="completed" /> <component> < observation moodCode="EVN" classCode="OBS"> <templateId root= "216.840.1.994630.10..22.4.2" /> <id nullFlavor="NA" /> < code codeSystem="local" code="85922-9" displayName="Blood lactic acid measurement (moles/volume)" /> <statusCode code="completed" /> <effectiveTime value="584180673391" /> <value unit="mmol/L" xsi:type= "PQ" value="2.13" /> <interpretationCode codeSystem="local" code="" / > <referenceRange> <observationRange> <text> 0.50-2.00</text> </observationRange> </referenceRange> </observation> </component> </organizer> </entry> <entry> < organizer moodCode="EVN" classCode="BATTERY"> <templateId root= "06.27.840.1.150801.10.4.1" /> <id nullFlavor="NA" /> <code codeSystem="local" code="600-7" displayName="Bacterial blood culture" /> < statusCode code="completed" /> <component> <observation moodCode= "EVN" classCode="OBS"> <templateId root="216.840.1.681918.10..4.2 " /> <id nullFlavor="NA" /> <code codeSystem="local" code="600 -7" displayName="Bacterial blood culture" /> <statusCode code= "completed" /> <effectiveTime value="961802540904" /> <value unit="" xsi:type="PQ" value="NG" /> <referenceRange> < observationRange> <text>NRG</text> </observationRange> </referenceRange> </observation> </component> </ organizer> </entry> <entry> <organizer moodCode="EVN" classCode="BATTERY"> <templateId root="06.27.840.1.958595.10..4.1" /> <id nullFlavor= "NA" /> <code codeSystem="local" code="600-7" displayName="Bacterial blood culture" /> <statusCode code="completed" /> <component> < observation moodCode="EVN" classCode="OBS"> <templateId root= "06.27.840.1.990399...22.4.2" /> <id nullFlavor="NA" /> < code codeSystem="local" code="600-7" displayName="Bacterial blood culture" /> <statusCode code="completed" /> <effectiveTime value= "694098281333" /> <value unit="" xsi:type="PQ" value="NG" /> < referenceRange> <observationRange> <text>NRG</text> </observationRange> </referenceRange> </observation> </component> </organizer> </entry> <entry> <organizer moodCode="EVN" classCode="BATTERY"> <templateId root="216.840.1.971613.10...4.1" /> <id nullFlavor="NA" /> <code codeSystem="local" code="12981-5" displayName="Influenza virus A and B antigen detection" /> <statusCode code ="completed" /> <component> <observation moodCode="EVN" classCode= "OBS"> <templateId root="16.840.1.439475.10..22.4.2" /> < id nullFlavor="NA" /> <code codeSystem="local" code="FLURESULT" displayName="FLU RESULT" /> <statusCode code="completed" /> < effectiveTime value="091550380827" /> <value unit="" xsi:type="PQ" value="NEGATIVE FOR INFLUENZA A AND B ANTIGENS BY IA" /> < referenceRange> <observationRange> <text>NRG</text> </observationRange> </referenceRange> </observation> </component> </organizer> </entry> <entry> <organizer moodCode="EVN" classCode="BATTERY"> <templateId root="216.840.1.910808.10...4.1" /> <id nullFlavor="NA" /> <code codeSystem="local" code="25247" displayName="Serum or plasma lactate measurement (moles/volume)" /> < statusCode code="completed" /> <component> <observation moodCode= "EVN" classCode="OBS"> <templateId root="2.16.840.1.242458.10..22.4.2 " /> <id nullFlavor="NA" /> <code codeSystem="local" code= "25208-16" displayName="Serum or plasma lactate measurement (moles/volume)" /> <statusCode code="completed" /> <effectiveTime value= "431657171286" /> <value unit="mmol/L" xsi:type="PQ" value="0.83" /> <referenceRange> <observationRange> <text>0.50- 2.00</text> </observationRange> </referenceRange> </ observation> </component> </organizer> </entry> <entry> <organizer moodCode="EVN" classCode="BATTERY"> <templateId root= "216.840.1.406381.10..22.4.1" /> <id nullFlavor="NA" /> <code codeSystem="local" code="47415-3" displayName="Complete blood count (CBC) with automated white blood cell (WBC) differential" /> <statusCode code= "completed" /> <component> <observation moodCode="EVN" classCode= "OBS"> <templateId root="2.16.840.1.479786.10.20.22.4.2" /> < id nullFlavor="NA" /> <code codeSystem="local" code="6690-2" displayName="Blood leukocytes automated count (number/volume)" /> < statusCode code="completed" /> <effectiveTime value="341341837010" /> <value unit="10*3/uL" xsi:type="PQ" value="12.7" /> < interpretationCode codeSystem="local" code="" /> <referenceRange> <observationRange> <text>4.3-11.0</text> </ observationRange> </referenceRange> </observation> </ component> <component> <observation moodCode="EVN" classCode="OBS"> <templateId root="2.16.840.1.771876.10.2022.4.2" /> <id nullFlavor="NA" /> <code codeSystem="local" code="789-8" displayName= "Blood erythrocytes automated count (number/volume)" /> <statusCode code="completed" /> <effectiveTime value="731685192455" /> < value unit="10*6/uL" xsi:type="PQ" value="3.41" /> <interpretationCode codeSystem="local" code="" /> <referenceRange> < observationRange> <text>4.35-5.85</text> </ observationRange> </referenceRange> </observation> </ component> <component> <observation moodCode="EVN" classCode="OBS"> <templateId root="2.16.840.1.317276.10.20.22.4.2" /> <id nullFlavor="NA" /> <code codeSystem="local" code="69946-8" displayName= "Venous blood hemoglobin measurement (mass/volume)" /> <statusCode code ="completed" /> <effectiveTime value="738224068002" /> <value unit="g/dL" xsi:type="PQ" value="8.3" /> <interpretationCode codeSystem ="local" code="" /> <referenceRange> <observationRange> <text>11.5-16.0</text> </observationRange> </ referenceRange> </observation> </component> <component> <observation moodCode="EVN" classCode="OBS"> <templateId root= "2.16.840.1.150757.10..4.2" /> <id nullFlavor="NA" /> < code codeSystem="local" code="96217-3" displayName="Blood hematocrit (volume fraction)" /> <statusCode code="completed" /> <effectiveTime value="688845961282" /> <value unit="%" xsi:type="PQ" value="26" / > <interpretationCode codeSystem="local" code="" /> < referenceRange> <observationRange> <text>35-52</text> </observationRange> </referenceRange> </observation> </component> <component> <observation moodCode="EVN" classCode= "OBS"> <templateId root="216.840.1.632014.02.28.22.4.2" /> < id nullFlavor="NA" /> <code codeSystem="local" code="787-2" displayName ="Automated erythrocyte mean corpuscular volume" /> <statusCode code= "completed" /> <effectiveTime value="537471811884" /> <value unit="[foz_us]" xsi:type="PQ" value="77" /> <interpretationCode codeSystem="local" code="" /> <referenceRange> < observationRange> <text>80-99</text> </observationRange > </referenceRange> </observation> </component> < component> <observation moodCode="EVN" classCode="OBS"> < templateId root="216.840.1.642122.10..4.2" /> <id nullFlavor="NA " /> <code codeSystem="local" code="785-6" displayName="Automated erythrocyte mean corpuscular hemoglobin (mass per erythrocyte)" /> < statusCode code="completed" /> <effectiveTime value="284227307763" /> <value unit="pg" xsi:type="PQ" value="24" /> < interpretationCode codeSystem="local" code="" /> <referenceRange> <observationRange> <text>25-34</text> </ observationRange> </referenceRange> </observation> </ component> <component> <observation moodCode="EVN" classCode="OBS"> <templateId root="2.16.840.1.865264.10.20.22.4.2" /> <id nullFlavor="NA" /> <code codeSystem="local" code="786-4" displayName= "Automated erythrocyte mean corpuscular hemoglobin concentration measurement ( mass/volume)" /> <statusCode code="completed" /> < effectiveTime value="543604368259" /> <value unit="g/dL" xsi:type="PQ" value="31" /> <interpretationCode codeSystem="local" code="" /> <referenceRange> <observationRange> <text>32-36</ text> </observationRange> </referenceRange> </ observation> </component> <component> <observation moodCode= "EVN" classCode="OBS"> <templateId root="2.16.840.1.047717.10.20.22.4.2 " /> <id nullFlavor="NA" /> <code codeSystem="local" code="788 -0" displayName="Automated erythrocyte distribution width ratio" /> < statusCode code="completed" /> <effectiveTime value="796884950273" /> <value unit="%" xsi:type="PQ" value="19.9" /> < interpretationCode codeSystem="local" code="" /> <referenceRange> <observationRange> <text>10.0-14.5</text> </ observationRange> </referenceRange> </observation> </ component> <component> <observation moodCode="EVN" classCode="OBS"> <templateId root="216.840.1.969645.10.20.22.4.2" /> <id nullFlavor="NA" /> <code codeSystem="local" code="777-3" displayName= "Automated blood platelet count (count/volume)" /> <statusCode code= "completed" /> <effectiveTime value="943623648900" /> <value unit="10*3/uL" xsi:type="PQ" value="222" /> <referenceRange> <observationRange> <text>130-400</text> </ observationRange> </referenceRange> </observation> </ component> <component> <observation moodCode="EVN" classCode="OBS"> <templateId root="06.27.840.1.331314.10..22.4.2" /> <id nullFlavor="NA" /> <code codeSystem="local" code="15382-5" displayName= "Automated blood platelet mean volume measurement" /> <statusCode code= "completed" /> <effectiveTime value="424280512824" /> <value unit="[foz_us]" xsi:type="PQ" value="11.0" /> <interpretationCode codeSystem="local" code="" /> <referenceRange> < observationRange> <text>7.4-10.4</text> </ observationRange> </referenceRange> </observation> </ component> <component> <observation moodCode="EVN" classCode="OBS"> <templateId root="216.840.1.094068.10.20.22.4.2" /> <id nullFlavor="NA" /> <code codeSystem="local" code="770-8" displayName= "Automated blood neutrophils/100 leukocytes" /> <statusCode code= "completed" /> <effectiveTime value="650179236795" /> <value unit="%" xsi:type="PQ" value="87" /> <interpretationCode codeSystem ="local" code="" /> <referenceRange> <observationRange> <text>42-75</text> </observationRange> </ referenceRange> </observation> </component> <component> <observation moodCode="EVN" classCode="OBS"> <templateId root= "2.16.840.1.664426.10.20.22.4.2" /> <id nullFlavor="NA" /> < code codeSystem="local" code="736-9" displayName="Automated blood lymphocytes/ 100 leukocytes" /> <statusCode code="completed" /> < effectiveTime value="716035933010" /> <value unit="%" xsi:type="PQ " value="5" /> <interpretationCode codeSystem="local" code="" /> <referenceRange> <observationRange> <text>12-44</ text> </observationRange> </referenceRange> </ observation> </component> <component> <observation moodCode= "EVN" classCode="OBS"> <templateId root="2.16.840.1.237795.10.20.22.4.2 " /> <id nullFlavor="NA" /> <code codeSystem="local" code= "17451-4" displayName="Blood monocytes/100 leukocytes" /> <statusCode code="completed" /> <effectiveTime value="803284397443" /> < value unit="%" xsi:type="PQ" value="7" /> <referenceRange> <observationRange> <text>0-12</text> </ observationRange> </referenceRange> </observation> </ component> <component> <observation moodCode="EVN" classCode="OBS"> <templateId root="2.16.840.1.357375.10..22.4.2" /> <id nullFlavor="NA" /> <code codeSystem="local" code="713-8" displayName= "Automated blood eosinophils/100 leukocytes" /> <statusCode code= "completed" /> <effectiveTime value="893196719623" /> <value unit="%" xsi:type="PQ" value="0" /> <referenceRange> < observationRange> <text>0-10</text> </observationRange> </referenceRange> </observation> </component> < component> <observation moodCode="EVN" classCode="OBS"> < templateId root="2.16.840.1.762303....4.2" /> <id nullFlavor="NA " /> <code codeSystem="local" code="706-2" displayName="Automated blood basophils/100 leukocytes" /> <statusCode code="completed" /> <effectiveTime value="018248295694" /> <value unit="%" xsi: type="PQ" value="0" /> <referenceRange> <observationRange> <text>0-10</text> </observationRange> </ referenceRange> </observation> </component> <component> <observation moodCode="EVN" classCode="OBS"> <templateId root= "2.16.840.1.122210.10..22.4.2" /> <id nullFlavor="NA" /> < code codeSystem="local" code="751-8" displayName="Blood neutrophils automated count (number/volume)" /> <statusCode code="completed" /> < effectiveTime value="" /> <value unit="10*3" xsi:type="PQ" value="11.1" /> <interpretationCode codeSystem="local" code="" /> <referenceRange> <observationRange> <text>1.8-7.8 </text> </observationRange> </referenceRange> </ observation> </component> <component> <observation moodCode= "EVN" classCode="OBS"> <templateId root="216.840.1.511965.102022.4.2 " /> <id nullFlavor="NA" /> <code codeSystem="local" code="731 -0" displayName="Blood lymphocytes automated count (number/volume)" /> <statusCode code="completed" /> <effectiveTime value="478085269438" /> <value unit="10*3" xsi:type="PQ" value="0.7" /> < interpretationCode codeSystem="local" code="" /> <referenceRange> <observationRange> <text>1.0-4.0</text> </ observationRange> </referenceRange> </observation> </ component> <component> <observation moodCode="EVN" classCode="OBS"> <templateId root="216.840.1.390009.10.2022.4.2" /> <id nullFlavor="NA" /> <code codeSystem="local" code="742-7" displayName= "Blood monocytes automated count (number/volume)" /> <statusCode code= "completed" /> <effectiveTime value="006530665393" /> <value unit="10*3" xsi:type="PQ" value="0.9" /> <referenceRange> < observationRange> <text>0.0-1.0</text> </ observationRange> </referenceRange> </observation> </ component> <component> <observation moodCode="EVN" classCode="OBS"> <templateId root="06.27.840.1.425001.10..22.4.2" /> <id nullFlavor="NA" /> <code codeSystem="local" code="711-2" displayName= "Automated eosinophil count" /> <statusCode code="completed" /> <effectiveTime value="103286269927" /> <value unit="10*3/uL" xsi: type="PQ" value="0.0" /> <referenceRange> <observationRange > <text>0.0-0.3</text> </observationRange> </ referenceRange> </observation> </component> <component> <observation moodCode="EVN" classCode="OBS"> <templateId root= "06.27.840.1.092442.10..22.4.2" /> <id nullFlavor="NA" /> < code codeSystem="local" code="704-7" displayName="Automated blood basophil count (count/volume)" /> <statusCode code="completed" /> < effectiveTime value="385758067266" /> <value unit="10*3/uL" xsi:type= "PQ" value="0.0" /> <referenceRange> <observationRange> <text>0.0-0.1</text> </observationRange> </ referenceRange> </observation> </component> </organizer> </entry > <entry> <organizer moodCode="EVN" classCode="BATTERY"> <templateId root="06.27.840.1.497933.10..22.4.1" /> <id nullFlavor="NA" /> <code codeSystem="local" code="26607-6" displayName="Comprehensive metabolic panel" / > <statusCode code="completed" /> <component> <observation moodCode="EVN" classCode="OBS"> <templateId root= "06.27.830.1.670543.10.20.22.4.2" /> <id nullFlavor="NA" /> < code codeSystem="local" code="2951-2" displayName="Serum or plasma sodium measurement (moles/volume)" /> <statusCode code="completed" /> <effectiveTime value="325932433183" /> <value unit="mmol/L" xsi:type= "PQ" value="137" /> <referenceRange> <observationRange> <text>135-145</text> </observationRange> </ referenceRange> </observation> </component> <component> <observation moodCode="EVN" classCode="OBS"> <templateId root= "216.840.1.637244.10.20.22.4.2" /> <id nullFlavor="NA" /> < code codeSystem="local" code="2823-3" displayName="Serum or plasma potassium measurement (moles/volume)" /> <statusCode code="completed" /> <effectiveTime value="992188663639" /> <value unit="mmol/L" xsi:type= "PQ" value="2.9" /> <interpretationCode codeSystem="local" code="" / > <referenceRange> <observationRange> <text>3.6 -5.0</text> </observationRange> </referenceRange> </ observation> </component> <component> <observation moodCode= "EVN" classCode="OBS"> <templateId root="216.840.1.189410.10.20.22.4.2 " /> <id nullFlavor="NA" /> <code codeSystem="local" code= "2075-0" displayName="Serum or plasma chloride measurement (moles/volume)" /> <statusCode code="completed" /> <effectiveTime value= "009718631384" /> <value unit="mmol/L" xsi:type="PQ" value="113" /> <interpretationCode codeSystem="local" code="" /> < referenceRange> <observationRange> <text>98-107</text> </observationRange> </referenceRange> </observation> </component> <component> <observation moodCode="EVN" classCode ="OBS"> <templateId root="216.840.1.377585.10..22.4.2" /> < id nullFlavor="NA" /> <code codeSystem="local" code="2028-01" displayName="Carbon dioxide" /> <statusCode code="completed" /> <effectiveTime value="468588816302" /> <value unit="mmol/L" xsi:type ="PQ" value="18" /> <interpretationCode codeSystem="local" code="" / > <referenceRange> <observationRange> <text>21- 32</text> </observationRange> </referenceRange> </ observation> </component> <component> <observation moodCode= "EVN" classCode="OBS"> <templateId root="216.840.1.501037.10..4.2 " /> <id nullFlavor="NA" /> <code codeSystem="local" code= "39917-8" displayName="Serum or plasma anion gap determination (moles/volume)" / > <statusCode code="completed" /> <effectiveTime value= "631365329125" /> <value unit="mmol/L" xsi:type="PQ" value="6" /> <referenceRange> <observationRange> <text>5-14</ text> </observationRange> </referenceRange> </ observation> </component> <component> <observation moodCode= "EVN" classCode="OBS"> <templateId root="216.840.1.991836.02.28.22.4.2 " /> <id nullFlavor="NA" /> <code codeSystem="local" code= "3094-0" displayName="Serum or plasma urea nitrogen measurement (mass/volume)" / > <statusCode code="completed" /> <effectiveTime value= "437082568787" /> <value unit="mg/dL" xsi:type="PQ" value="12" /> <referenceRange> <observationRange> <text>7-18</ text> </observationRange> </referenceRange> </ observation> </component> <component> <observation moodCode= "EVN" classCode="OBS"> <templateId root="2.16.840.1.491182.10..22.4.2 " /> <id nullFlavor="NA" /> <code codeSystem="local" code= "2160-0" displayName="Serum or plasma creatinine measurement (mass/volume)" /> <statusCode code="completed" /> <effectiveTime value= "375831534927" /> <value unit="mg/dL" xsi:type="PQ" value="0.68" /> <referenceRange> <observationRange> <text>0.60- 1.30</text> </observationRange> </referenceRange> </ observation> </component> <component> <observation moodCode= "EVN" classCode="OBS"> <templateId root="2.16.840.1.986241.10..22.4.2 " /> <id nullFlavor="NA" /> <code codeSystem="local" code= "3097-3" displayName="Serum or plasma urea nitrogen/creatinine mass ratio" /> <statusCode code="completed" /> <effectiveTime value= "094116717230" /> <value unit="" xsi:type="PQ" value="18" /> < referenceRange> <observationRange> <text>NRG</text> </observationRange> </referenceRange> </observation> </component> <component> <observation moodCode="EVN" classCode= "OBS"> <templateId root="2.16.840.1.654085.10..22.4.2" /> < id nullFlavor="NA" /> <code codeSystem="local" code="20745-7" displayName="Serum or plasma creatinine measurement with calculation of estimated glomerular filtration rate" /> <statusCode code="completed" / > <effectiveTime value="711826462355" /> <value unit="" xsi: type="PQ" value=">" /> <referenceRange> <observationRange > <text>NRG</text> </observationRange> </ referenceRange> </observation> </component> <component> <observation moodCode="EVN" classCode="OBS"> <templateId root= "216.840.1.254878.10..4.2" /> <id nullFlavor="NA" /> < code codeSystem="local" code="2345-7" displayName="Serum or plasma glucose measurement (mass/volume)" /> <statusCode code="completed" /> <effectiveTime value="712753682809" /> <value unit="mg/dL" xsi:type="PQ " value="108" /> <interpretationCode codeSystem="local" code="" /> <referenceRange> <observationRange> <text>70-105 </text> </observationRange> </referenceRange> </ observation> </component> <component> <observation moodCode= "EVN" classCode="OBS"> <templateId root="216.840.1.412272.10..22.4.2 " /> <id nullFlavor="NA" /> <code codeSystem="local" code= "56616-0" displayName="Serum or plasma calcium measurement (mass/volume)" /> <statusCode code="completed" /> <effectiveTime value= "930963632329" /> <value unit="mg/dL" xsi:type="PQ" value="7.8" /> <interpretationCode codeSystem="local" code="" /> < referenceRange> <observationRange> <text>8.5-10.1</text > </observationRange> </referenceRange> </observation > </component> <component> <observation moodCode="EVN" classCode="OBS"> <templateId root="2.16.840.1.169489.10.20.22.4.2" /> <id nullFlavor="NA" /> <code codeSystem="local" code="1974-06" displayName="Serum or plasma total bilirubin measurement (mass/volume)" /> <statusCode code="completed" /> <effectiveTime value="245830592544 " /> <value unit="mg/dL" xsi:type="PQ" value="0.5" /> < referenceRange> <observationRange> <text>0.1-1.0</text> </observationRange> </referenceRange> </observation > </component> <component> <observation moodCode="EVN" classCode="OBS"> <templateId root="2.16.840.1.784256.10.20.22.4.2" /> <id nullFlavor="NA" /> <code codeSystem="local" code="6768-6" displayName="Serum or plasma alkaline phosphatase measurement (enzymatic activity/volume)" /> <statusCode code="completed" /> < effectiveTime value="090597132906" /> <value unit="U/L" xsi:type="PQ" value="62" /> <referenceRange> <observationRange> <text>40-136</text> </observationRange> </referenceRange > </observation> </component> <component> <observation moodCode="EVN" classCode="OBS"> <templateId root= "2.16.840.1.992263.10.20.22.4.2" /> <id nullFlavor="NA" /> < code codeSystem="local" code="1919-12" displayName="Serum or plasma aspartate aminotransferase measurement (enzymatic activity/volume)" /> < statusCode code="completed" /> <effectiveTime value="612005147780" /> <value unit="U/L" xsi:type="PQ" value="15" /> <referenceRange > <observationRange> <text>5-34</text> </ observationRange> </referenceRange> </observation> </ component> <component> <observation moodCode="EVN" classCode="OBS"> <templateId root="2.16.840.1.111381.10..22.4.2" /> <id nullFlavor="NA" /> <code codeSystem="local" code="17406-17" displayName= "Serum or plasma alanine aminotransferase measurement (enzymatic activity/volume )" /> <statusCode code="completed" /> <effectiveTime value= "443892116990" /> <value unit="U/L" xsi:type="PQ" value="12" /> <referenceRange> <observationRange> <text>0-55</text > </observationRange> </referenceRange> </observation > </component> <component> <observation moodCode="EVN" classCode="OBS"> <templateId root="2.16.840.1.854859.10..22.4.2" /> <id nullFlavor="NA" /> <code codeSystem="local" code="2885-2" displayName="Serum or plasma protein measurement (mass/volume)" /> < statusCode code="completed" /> <effectiveTime value="" /> <value unit="g/dL" xsi:type="PQ" value="4.7" /> < interpretationCode codeSystem="local" code="" /> <referenceRange> <observationRange> <text>6.4-8.2</text> </ observationRange> </referenceRange> </observation> </ component> <component> <observation moodCode="EVN" classCode="OBS"> <templateId root="2.16.840.1.245777.10..22.4.2" /> <id nullFlavor="NA" /> <code codeSystem="local" code="1751-7" displayName= "Serum or plasma albumin measurement (mass/volume)" /> <statusCode code ="completed" /> <effectiveTime value="261616424655" /> <value unit="g/dL" xsi:type="PQ" value="2.8" /> <interpretationCode codeSystem ="local" code="" /> <referenceRange> <observationRange> <text>3.2-4.5</text> </observationRange> </ referenceRange> </observation> </component> <component> <observation moodCode="EVN" classCode="OBS"> <templateId root= "2.16.840.1.369538.10..22.4.2" /> <id nullFlavor="NA" /> < code codeSystem="local" code="CALCIUMCORR" displayName="CALCIUM CORRECTED" /> <statusCode code="completed" /> <effectiveTime value= "124498123468" /> <value unit="mg/dL" xsi:type="PQ" value="8.8" /> <referenceRange> <observationRange> <text>8.5-10.1 </text> </observationRange> </referenceRange> </ observation> </component> </organizer> </entry> <entry> <organizer moodCode="EVN" classCode="BATTERY"> <templateId root= "840.1.683459.22.4.1" /> <id nullFlavor="NA" /> <code codeSystem="local" code="" displayName="Magnesium" /> <statusCode code="completed" /> <component> <observation moodCode="EVN" classCode="OBS"> <templateId root="840.1.521747.22.4.2" /> <id nullFlavor="NA" /> <code codeSystem="local" code=" " displayName="Magnesium" /> <statusCode code="completed" /> < effectiveTime value="619476875961" /> <value unit="mg/dL" xsi:type="PQ " value="1.5" /> <interpretationCode codeSystem="local" code="" /> <referenceRange> <observationRange> <text>1.8- 2.4</text> </observationRange> </referenceRange> </ observation> </component> </organizer> </entry> <entry> <organizer moodCode="EVN" classCode="BATTERY"> <templateId root= "840.1.426424.02.28.22.4.1" /> <id nullFlavor="NA" /> <code codeSystem="local" code="01947-5" displayName="Complete urinalysis with reflex to culture" /> <statusCode code="completed" /> <component> < observation moodCode="EVN" classCode="OBS"> <templateId root= "840.1.115826.22.4.2" /> <id nullFlavor="NA" /> < code codeSystem="local" code="5778-6" displayName="Urine color determination" / > <statusCode code="completed" /> <effectiveTime value= "" /> <value unit="" xsi:type="PQ" value="YELLOW" /> <referenceRange> <observationRange> <text>NRG</text > </observationRange> </referenceRange> </observation > </component> <component> <observation moodCode="EVN" classCode="OBS"> <templateId root="216.840.1.279020.10.20.22.4.2" /> <id nullFlavor="NA" /> <code codeSystem="local" code="17723-0 " displayName="Urine clarity determination" /> <statusCode code= "completed" /> <effectiveTime value="" /> <value unit="" xsi:type="PQ" value="SLIGHTLY CLOUDY" /> <referenceRange> <observationRange> <text>NRG</text> </ observationRange> </referenceRange> </observation> </ component> <component> <observation moodCode="EVN" classCode="OBS"> <templateId root="216.840.1.463723.10..22.4.2" /> <id nullFlavor="NA" /> <code codeSystem="local" code="5803-2" displayName= "Urine pH measurement by test strip" /> <statusCode code="completed" / > <effectiveTime value="" /> <value unit="" xsi: type="PQ" value="6" /> <referenceRange> <observationRange> <text>5-9</text> </observationRange> </ referenceRange> </observation> </component> <component> <observation moodCode="EVN" classCode="OBS"> <templateId root= "216.840.1.690879.10.20.22.4.2" /> <id nullFlavor="NA" /> < code codeSystem="local" code="5811-5" displayName="Specific gravity of urine by test strip" /> <statusCode code="completed" /> <effectiveTime value="603017707222" /> <value unit="" xsi:type="PQ" value="1.010" /> <interpretationCode codeSystem="local" code="" /> < referenceRange> <observationRange> <text>1.016-1.022</ text> </observationRange> </referenceRange> </ observation> </component> <component> <observation moodCode= "EVN" classCode="OBS"> <templateId root="2.16.840.1.433262.10...4.2 " /> <id nullFlavor="NA" /> <code codeSystem="local" code= "44995-8" displayName="Urine protein assay by test strip, semi-quantitative" /> <statusCode code="completed" /> <effectiveTime value= "750447836780" /> <value unit="" xsi:type="PQ" value="3+" /> < interpretationCode codeSystem="local" code="*" /> <referenceRange> <observationRange> <text>NEGATIVE</text> </ observationRange> </referenceRange> </observation> </ component> <component> <observation moodCode="EVN" classCode="OBS"> <templateId root="2.16.840.1.203980.10.22.4.2" /> <id nullFlavor="NA" /> <code codeSystem="local" code="81951-7" displayName= "Urine glucose detection by automated test strip" /> <statusCode code= "completed" /> <effectiveTime value="549249242784" /> <value unit="" xsi:type="PQ" value="NEGATIVE" /> <referenceRange> < observationRange> <text>NEGATIVE</text> </ observationRange> </referenceRange> </observation> </ component> <component> <observation moodCode="EVN" classCode="OBS"> <templateId root="216.840.1.706626.10..22.4.2" /> <id nullFlavor="NA" /> <code codeSystem="local" code="56129-7" displayName= "Erythrocytes detection in urine sediment by light microscopy" /> < statusCode code="completed" /> <effectiveTime value="304902662638" /> <value unit="" xsi:type="PQ" value="5+" /> < interpretationCode codeSystem="local" code="*" /> <referenceRange> <observationRange> <text>NEGATIVE</text> </ observationRange> </referenceRange> </observation> </ component> <component> <observation moodCode="EVN" classCode="OBS"> <templateId root="216.840.1.395881.02.28.22.4.2" /> <id nullFlavor="NA" /> <code codeSystem="local" code="62854-0" displayName= "Urine ketones detection by automated test strip" /> <statusCode code= "completed" /> <effectiveTime value="906791324467" /> <value unit="" xsi:type="PQ" value="NEGATIVE" /> <referenceRange> < observationRange> <text>NEGATIVE</text> </ observationRange> </referenceRange> </observation> </ component> <component> <observation moodCode="EVN" classCode="OBS"> <templateId root="2.16.840.1.441103.10...4.2" /> <id nullFlavor="NA" /> <code codeSystem="local" code="5802-4" displayName= "Urine nitrite detection by test strip" /> <statusCode code="completed " /> <effectiveTime value="423081961791" /> <value unit="" xsi :type="PQ" value="NEGATIVE" /> <referenceRange> < observationRange> <text>NEGATIVE</text> </ observationRange> </referenceRange> </observation> </ component> <component> <observation moodCode="EVN" classCode="OBS"> <templateId root="216.840.1.014340.10.20.22.4.2" /> <id nullFlavor="NA" /> <code codeSystem="local" code="5770-3" displayName= "Urine total bilirubin detection by test strip" /> <statusCode code= "completed" /> <effectiveTime value="763118586817" /> <value unit="" xsi:type="PQ" value="NEGATIVE" /> <referenceRange> < observationRange> <text>NEGATIVE</text> </ observationRange> </referenceRange> </observation> </ component> <component> <observation moodCode="EVN" classCode="OBS"> <templateId root="06.27.840.1.540862.10.20.22.4.2" /> <id nullFlavor="NA" /> <code codeSystem="local" code="80428-6" displayName= "Urine urobilinogen measurement by automated test strip (mass/volume)" /> <statusCode code="completed" /> <effectiveTime value="707029364412 " /> <value unit="" xsi:type="PQ" value="NORMAL" /> < referenceRange> <observationRange> <text>NORMAL</text> </observationRange> </referenceRange> </observation> </component> <component> <observation moodCode="EVN" classCode ="OBS"> <templateId root="16.840.1.408264.10.20.22.4.2" /> < id nullFlavor="NA" /> <code codeSystem="local" code="5799-2" displayName="Urine leukocyte esterase detection by dipstick" /> < statusCode code="completed" /> <effectiveTime value="247447291012" /> <value unit="" xsi:type="PQ" value="3+" /> < interpretationCode codeSystem="local" code="*" /> <referenceRange> <observationRange> <text>NEGATIVE</text> </ observationRange> </referenceRange> </observation> </ component> <component> <observation moodCode="EVN" classCode="OBS"> <templateId root="2.16.840.1.742903.10..22.4.2" /> <id nullFlavor="NA" /> <code codeSystem="local" code="46814-5" displayName= "Automated urine sediment erythrocyte count by microscopy (number/high power field)" /> <statusCode code="completed" /> <effectiveTime value="395901157729" /> <value unit="[HPF]" xsi:type="PQ" value="" /> <interpretationCode codeSystem="local" code="*" /> < referenceRange> <observationRange> <text>NRG</text> </observationRange> </referenceRange> </observation> </component> <component> <observation moodCode="EVN" classCode= "OBS"> <templateId root="216.840.1.633121.10.20.22.4.2" /> < id nullFlavor="NA" /> <code codeSystem="local" code="5821-4" displayName="Automated urine sediment leukocyte count by microscopy (number/ high power field)" /> <statusCode code="completed" /> < effectiveTime value="689019521872" /> <value unit="[HPF]" xsi:type="PQ " value="" /> <interpretationCode codeSystem="local" code="*" /> <referenceRange> <observationRange> <text>NRG</text > </observationRange> </referenceRange> </observation > </component> <component> <observation moodCode="EVN" classCode="OBS"> <templateId root="16.840.1.758019.10..4.2" /> <id nullFlavor="NA" /> <code codeSystem="local" code="62034-5 " displayName="Bacteria detection in urine sediment by light microscopy" /> <statusCode code="completed" /> <effectiveTime value= "604046917652" /> <value unit="" xsi:type="PQ" value="NEGATIVE" /> <referenceRange> <observationRange> <text>NRG</ text> </observationRange> </referenceRange> </ observation> </component> <component> <observation moodCode= "EVN" classCode="OBS"> <templateId root="06.27.840.1.723661.10.4.2 " /> <id nullFlavor="NA" /> <code codeSystem="local" code= "44062-3" displayName="Squamous epithelial cells detection in urine sediment by light microscopy" /> <statusCode code="completed" /> < effectiveTime value="990813686320" /> <value unit="" xsi:type="PQ" value="5-10" /> <referenceRange> <observationRange> <text>NRG</text> </observationRange> </referenceRange > </observation> </component> <component> <observation moodCode="EVN" classCode="OBS"> <templateId root= "06.27.840.1.363900.10..22.4.2" /> <id nullFlavor="NA" /> < code codeSystem="local" code="49450-4" displayName="Crystals detection in urine sediment by light microscopy" /> <statusCode code="completed" /> <effectiveTime value="385543998219" /> <value unit="" xsi:type="PQ " value="NONE" /> <referenceRange> <observationRange> <text>NRG</text> </observationRange> </ referenceRange> </observation> </component> <component> <observation moodCode="EVN" classCode="OBS"> <templateId root= "16.840.1.863810.10..22.4.2" /> <id nullFlavor="NA" /> < code codeSystem="local" code="28446-5" displayName="Casts detection in urine sediment by light microscopy" /> <statusCode code="completed" /> <effectiveTime value="" /> <value unit="" xsi:type="PQ " value="NONE" /> <referenceRange> <observationRange> <text>NRG</text> </observationRange> </ referenceRange> </observation> </component> <component> <observation moodCode="EVN" classCode="OBS"> <templateId root= "06.27.840.1.960175.10.22.4.2" /> <id nullFlavor="NA" /> < code codeSystem="local" code="8247-9" displayName="Mucus detection in urine sediment by light microscopy" /> <statusCode code="completed" /> <effectiveTime value="197069759433" /> <value unit="" xsi:type="PQ " value="NEGATIVE" /> <referenceRange> <observationRange> <text>NRG</text> </observationRange> </ referenceRange> </observation> </component> <component> <observation moodCode="EVN" classCode="OBS"> <templateId root= "06.27.840.1.814174.10.20.22.4.2" /> <id nullFlavor="NA" /> < code codeSystem="local" code="42778-7" displayName="Complete urinalysis with reflex to culture" /> <statusCode code="completed" /> < effectiveTime value="347064783388" /> <value unit="" xsi:type="PQ" value="YES" /> <referenceRange> <observationRange> <text>NRG</text> </observationRange> </referenceRange> </observation> </component> </organizer> </entry> <entry> < organizer moodCode="EVN" classCode="BATTERY"> <templateId root= "06.27.840.1.669482.10.20.22.4.1" /> <id nullFlavor="NA" /> <code codeSystem="local" code="07219-9" displayName="Complete blood count (CBC) with automated white blood cell (WBC) differential" /> <statusCode code= "completed" /> <component> <observation moodCode="EVN" classCode= "OBS"> <templateId root="16.840.1.710385.10.20.22.4.2" /> < id nullFlavor="NA" /> <code codeSystem="local" code="6690-2" displayName="Blood leukocytes automated count (number/volume)" /> < statusCode code="completed" /> <effectiveTime value="949940894538" /> <value unit="10*3/uL" xsi:type="PQ" value="15.1" /> < interpretationCode codeSystem="local" code="" /> <referenceRange> <observationRange> <text>4.3-11.0</text> </ observationRange> </referenceRange> </observation> </ component> <component> <observation moodCode="EVN" classCode="OBS"> <templateId root="06.27.840.1.962482.10.20.22.4.2" /> <id nullFlavor="NA" /> <code codeSystem="local" code="789-8" displayName= "Blood erythrocytes automated count (number/volume)" /> <statusCode code="completed" /> <effectiveTime value="333425612577" /> < value unit="10*6/uL" xsi:type="PQ" value="3.78" /> <interpretationCode codeSystem="local" code="" /> <referenceRange> < observationRange> <text>4.35-5.85</text> </ observationRange> </referenceRange> </observation> </ component> <component> <observation moodCode="EVN" classCode="OBS"> <templateId root="2.16.840.1.120214.10.20.22.4.2" /> <id nullFlavor="NA" /> <code codeSystem="local" code="87750-7" displayName= "Venous blood hemoglobin measurement (mass/volume)" /> <statusCode code ="completed" /> <effectiveTime value="019859587701" /> <value unit="g/dL" xsi:type="PQ" value="8.2" /> <interpretationCode codeSystem ="local" code="" /> <referenceRange> <observationRange> <text>11.5-16.0</text> </observationRange> </ referenceRange> </observation> </component> <component> <observation moodCode="EVN" classCode="OBS"> <templateId root= "2.16.840.1.607293.10.20.22.4.2" /> <id nullFlavor="NA" /> < code codeSystem="local" code="15321-3" displayName="Blood hematocrit (volume fraction)" /> <statusCode code="completed" /> <effectiveTime value="330805096936" /> <value unit="%" xsi:type="PQ" value="27" / > <interpretationCode codeSystem="local" code="" /> < referenceRange> <observationRange> <text>35-52</text> </observationRange> </referenceRange> </observation> </component> <component> <observation moodCode="EVN" classCode= "OBS"> <templateId root="2.16.840.1.644047.10..4.2" /> < id nullFlavor="NA" /> <code codeSystem="local" code="787-2" displayName ="Automated erythrocyte mean corpuscular volume" /> <statusCode code= "completed" /> <effectiveTime value="718333564359" /> <value unit="[foz_us]" xsi:type="PQ" value="71" /> <interpretationCode codeSystem="local" code="" /> <referenceRange> < observationRange> <text>80-99</text> </observationRange > </referenceRange> </observation> </component> < component> <observation moodCode="EVN" classCode="OBS"> < templateId root="2.16.840.1.829328.10.4.2" /> <id nullFlavor="NA " /> <code codeSystem="local" code="785-6" displayName="Automated erythrocyte mean corpuscular hemoglobin (mass per erythrocyte)" /> < statusCode code="completed" /> <effectiveTime value="479142739194" /> <value unit="pg" xsi:type="PQ" value="22" /> < interpretationCode codeSystem="local" code="" /> <referenceRange> <observationRange> <text>25-34</text> </ observationRange> </referenceRange> </observation> </ component> <component> <observation moodCode="EVN" classCode="OBS"> <templateId root="216.840.1.516108.10.20.22.4.2" /> <id nullFlavor="NA" /> <code codeSystem="local" code="786-4" displayName= "Automated erythrocyte mean corpuscular hemoglobin concentration measurement ( mass/volume)" /> <statusCode code="completed" /> < effectiveTime value="469681520298" /> <value unit="g/dL" xsi:type="PQ" value="31" /> <interpretationCode codeSystem="local" code="" /> <referenceRange> <observationRange> <text>32-36</ text> </observationRange> </referenceRange> </ observation> </component> <component> <observation moodCode= "EVN" classCode="OBS"> <templateId root="06.27.840.1.732871.1022.4.2 " /> <id nullFlavor="NA" /> <code codeSystem="local" code="788 -0" displayName="Automated erythrocyte distribution width ratio" /> < statusCode code="completed" /> <effectiveTime value="999662850269" /> <value unit="%" xsi:type="PQ" value="20.3" /> < interpretationCode codeSystem="local" code="" /> <referenceRange> <observationRange> <text>10.0-14.5</text> </ observationRange> </referenceRange> </observation> </ component> <component> <observation moodCode="EVN" classCode="OBS"> <templateId root="06.27.840.1.129221.10.2022.4.2" /> <id nullFlavor="NA" /> <code codeSystem="local" code="777-3" displayName= "Automated blood platelet count (count/volume)" /> <statusCode code= "completed" /> <effectiveTime value="619977736996" /> <value unit="10*3/uL" xsi:type="PQ" value="219" /> <referenceRange> <observationRange> <text>130-400</text> </ observationRange> </referenceRange> </observation> </ component> <component> <observation moodCode="EVN" classCode="OBS"> <templateId root="216.840.1.231440.10.20.22.4.2" /> <id nullFlavor="NA" /> <code codeSystem="local" code="03160-0" displayName= "Automated blood platelet mean volume measurement" /> <statusCode code= "completed" /> <effectiveTime value="062409822883" /> <value unit="[chi [facility]_us]" xsi:type="PQ" value="10.6" /> <interpretationCode codeSystem="local" code="" /> <referenceRange> < observationRange> <text>7.4-10.4</text> </ observationRange> </referenceRange> </observation> </ component> <component> <observation moodCode="EVN" classCode="OBS"> <templateId root="16.840.1.376232.10..22.4.2" /> <id nullFlavor="NA" /> <code codeSystem="local" code="770-8" displayName= "Automated blood neutrophils/100 leukocytes" /> <statusCode code= "completed" /> <effectiveTime value="890389489909" /> <value unit="%" xsi:type="PQ" value="80" /> <interpretationCode codeSystem ="local" code="" /> <referenceRange> <observationRange> <text>42-75</text> </observationRange> </ referenceRange> </observation> </component> <component> <observation moodCode="EVN" classCode="OBS"> <templateId root= "840.1.631257.10.20.22.4.2" /> <id nullFlavor="NA" /> < code codeSystem="local" code="736-9" displayName="Automated blood lymphocytes/ 100 leukocytes" /> <statusCode code="completed" /> < effectiveTime value="755095207837" /> <value unit="%" xsi:type="PQ " value="8" /> <interpretationCode codeSystem="local" code="" /> <referenceRange> <observationRange> <text>12-44</ text> </observationRange> </referenceRange> </ observation> </component> <component> <observation moodCode= "EVN" classCode="OBS"> <templateId root="216.840.1.473614.10.20.22.4.2 " /> <id nullFlavor="NA" /> <code codeSystem="local" code= "98108-5" displayName="Blood monocytes/100 leukocytes" /> <statusCode code="completed" /> <effectiveTime value="293389823098" /> < value unit="%" xsi:type="PQ" value="12" /> <referenceRange> <observationRange> <text>0-12</text> </ observationRange> </referenceRange> </observation> </ component> <component> <observation moodCode="EVN" classCode="OBS"> <templateId root="2.16.840.1.248493.10.20.22.4.2" /> <id nullFlavor="NA" /> <code codeSystem="local" code="713-8" displayName= "Automated blood eosinophils/100 leukocytes" /> <statusCode code= "completed" /> <effectiveTime value="443464060537" /> <value unit="%" xsi:type="PQ" value="0" /> <referenceRange> < observationRange> <text>0-10</text> </observationRange> </referenceRange> </observation> </component> < component> <observation moodCode="EVN" classCode="OBS"> < templateId root="216.840.1.998068.10.20.22.4.2" /> <id nullFlavor="NA " /> <code codeSystem="local" code="706-2" displayName="Automated blood basophils/100 leukocytes" /> <statusCode code="completed" /> <effectiveTime value="130689590834" /> <value unit="%" xsi: type="PQ" value="0" /> <referenceRange> <observationRange> <text>0-10</text> </observationRange> </ referenceRange> </observation> </component> <component> <observation moodCode="EVN" classCode="OBS"> <templateId root= "06.27.840.1.789898.10.20.22.4.2" /> <id nullFlavor="NA" /> < code codeSystem="local" code="751-8" displayName="Blood neutrophils automated count (number/volume)" /> <statusCode code="completed" /> < effectiveTime value="982664987848" /> <value unit="10*3" xsi:type="PQ" value="12.2" /> <interpretationCode codeSystem="local" code="" /> <referenceRange> <observationRange> <text>1.8-7.8 </text> </observationRange> </referenceRange> </ observation> </component> <component> <observation moodCode= "EVN" classCode="OBS"> <templateId root="16.840.1.176375.10.20.22.4.2 " /> <id nullFlavor="NA" /> <code codeSystem="local" code="731 -0" displayName="Blood lymphocytes automated count (number/volume)" /> <statusCode code="completed" /> <effectiveTime value="746328200018" /> <value unit="10*3" xsi:type="PQ" value="1.2" /> < referenceRange> <observationRange> <text>1.0-4.0</text> </observationRange> </referenceRange> </observation > </component> <component> <observation moodCode="EVN" classCode="OBS"> <templateId root="2.16.840.1.864927.10.20.22.4.2" /> <id nullFlavor="NA" /> <code codeSystem="local" code="742-7" displayName="Blood monocytes automated count (number/volume)" /> < statusCode code="completed" /> <effectiveTime value="764938474767" /> <value unit="10*3" xsi:type="PQ" value="1.7" /> < interpretationCode codeSystem="local" code="" /> <referenceRange> <observationRange> <text>0.0-1.0</text> </ observationRange> </referenceRange> </observation> </ component> <component> <observation moodCode="EVN" classCode="OBS"> <templateId root="2.16.840.1.110288.10.2022.4.2" /> <id nullFlavor="NA" /> <code codeSystem="local" code="711-2" displayName= "Automated eosinophil count" /> <statusCode code="completed" /> <effectiveTime value="" /> <value unit="10*3/uL" xsi: type="PQ" value="0.0" /> <referenceRange> <observationRange > <text>0.0-0.3</text> </observationRange> </ referenceRange> </observation> </component> <component> <observation moodCode="EVN" classCode="OBS"> <templateId root= "2.16.840.1.385320.10.20.22.4.2" /> <id nullFlavor="NA" /> < code codeSystem="local" code="704-7" displayName="Automated blood basophil count (count/volume)" /> <statusCode code="completed" /> < effectiveTime value="194378835170" /> <value unit="10*3/uL" xsi:type= "PQ" value="0.0" /> <referenceRange> <observationRange> <text>0.0-0.1</text> </observationRange> </ referenceRange> </observation> </component> </organizer> </entry > <entry> <organizer moodCode="EVN" classCode="BATTERY"> <templateId root="2.16.840.1.494409.10.20.22.4.1" /> <id nullFlavor="NA" /> <code codeSystem="local" code="08933-6" displayName="Comprehensive metabolic panel" / > <statusCode code="completed" /> <component> <observation moodCode="EVN" classCode="OBS"> <templateId root= "2.16.840.1.911775.10.20.22.4.2" /> <id nullFlavor="NA" /> < code codeSystem="local" code="2951-2" displayName="Serum or plasma sodium measurement (moles/volume)" /> <statusCode code="completed" /> <effectiveTime value="175562638340" /> <value unit="mmol/L" xsi:type= "PQ" value="136" /> <referenceRange> <observationRange> <text>135-145</text> </observationRange> </ referenceRange> </observation> </component> <component> <observation moodCode="EVN" classCode="OBS"> <templateId root= "2.16.840.1.346378.10..22.4.2" /> <id nullFlavor="NA" /> < code codeSystem="local" code="2823-" displayName="Serum or plasma potassium measurement (moles/volume)" /> <statusCode code="completed" /> <effectiveTime value="641985850332" /> <value unit="mmol/L" xsi:type= "PQ" value="3.5" /> <interpretationCode codeSystem="local" code="" / > <referenceRange> <observationRange> <text>3.6 -5.0</text> </observationRange> </referenceRange> </ observation> </component> <component> <observation moodCode= "EVN" classCode="OBS"> <templateId root="16.840.1.720280.10.22.4.2 " /> <id nullFlavor="NA" /> <code codeSystem="local" code= "" displayName="Serum or plasma chloride measurement (moles/volume)" /> <statusCode code="completed" /> <effectiveTime value= "427022238472" /> <value unit="mmol/L" xsi:type="PQ" value="104" /> <referenceRange> <observationRange> <text>98-107< /text> </observationRange> </referenceRange> </ observation> </component> <component> <observation moodCode= "EVN" classCode="OBS"> <templateId root="2.16.840.1.389167.10.20.22.4.2 " /> <id nullFlavor="NA" /> <code codeSystem="local" code= "2028-01" displayName="Carbon dioxide" /> <statusCode code="completed" / > <effectiveTime value="577143551163" /> <value unit="mmol/L" xsi:type="PQ" value="18" /> <interpretationCode codeSystem="local" code ="" /> <referenceRange> <observationRange> < text>21-32</text> </observationRange> </referenceRange> </observation> </component> <component> <observation moodCode="EVN" classCode="OBS"> <templateId root= "2.16.840.1.783924.10..22.4.2" /> <id nullFlavor="NA" /> < code codeSystem="local" code="63145-7" displayName="Serum or plasma anion gap determination (moles/volume)" /> <statusCode code="completed" /> <effectiveTime value="089317815303" /> <value unit="mmol/L" xsi: type="PQ" value="14" /> <referenceRange> <observationRange> <text>5-14</text> </observationRange> </ referenceRange> </observation> </component> <component> <observation moodCode="EVN" classCode="OBS"> <templateId root= "2.16.840.1.572208.10..22.4.2" /> <id nullFlavor="NA" /> < code codeSystem="local" code="3094-0" displayName="Serum or plasma urea nitrogen measurement (mass/volume)" /> <statusCode code="completed" /> <effectiveTime value="079369708657" /> <value unit="mg/dL" xsi:type="PQ" value="20" /> <interpretationCode codeSystem="local" code ="" /> <referenceRange> <observationRange> < text>7-18</text> </observationRange> </referenceRange> </observation> </component> <component> <observation moodCode="EVN" classCode="OBS"> <templateId root= "2.16.840.1.913449.10.20.22.4.2" /> <id nullFlavor="NA" /> < code codeSystem="local" code="2160-0" displayName="Serum or plasma creatinine measurement (mass/volume)" /> <statusCode code="completed" /> <effectiveTime value="665681457452" /> <value unit="mg/dL" xsi:type="PQ " value="0.85" /> <referenceRange> <observationRange> <text>0.60-1.30</text> </observationRange> </ referenceRange> </observation> </component> <component> <observation moodCode="EVN" classCode="OBS"> <templateId root= "216.840.1.419061.10..22.4.2" /> <id nullFlavor="NA" /> < code codeSystem="local" code="3097-3" displayName="Serum or plasma urea nitrogen /creatinine mass ratio" /> <statusCode code="completed" /> < effectiveTime value="101170843220" /> <value unit="" xsi:type="PQ" value="24" /> <referenceRange> <observationRange> <text>NRG</text> </observationRange> </referenceRange> </observation> </component> <component> <observation moodCode="EVN" classCode="OBS"> <templateId root= "216.840.1.596364.10.20.22.4.2" /> <id nullFlavor="NA" /> < code codeSystem="local" code="87989-4" displayName="Serum or plasma creatinine measurement with calculation of estimated glomerular filtration rate" /> <statusCode code="completed" /> <effectiveTime value="934472409438" /> <value unit="" xsi:type="PQ" value=">" /> < referenceRange> <observationRange> <text>NRG</text> </observationRange> </referenceRange> </observation> </component> <component> <observation moodCode="EVN" classCode= "OBS"> <templateId root="216.840.1.095292.10.20.22.4.2" /> < id nullFlavor="NA" /> <code codeSystem="local" code="2345-7" displayName="Serum or plasma glucose measurement (mass/volume)" /> < statusCode code="completed" /> <effectiveTime value="641920438066" /> <value unit="mg/dL" xsi:type="PQ" value="93" /> < referenceRange> <observationRange> <text>70-105</text> </observationRange> </referenceRange> </observation> </component> <component> <observation moodCode="EVN" classCode ="OBS"> <templateId root="06.27.840.1.646603.10..22.4.2" /> < id nullFlavor="NA" /> <code codeSystem="local" code="23166-7" displayName="Serum or plasma calcium measurement (mass/volume)" /> < statusCode code="completed" /> <effectiveTime value="513087575936" /> <value unit="mg/dL" xsi:type="PQ" value="9.1" /> < referenceRange> <observationRange> <text>8.5-10.1</text > </observationRange> </referenceRange> </observation > </component> <component> <observation moodCode="EVN" classCode="OBS"> <templateId root="16.840.1.783284.10.20.22.4.2" /> <id nullFlavor="NA" /> <code codeSystem="local" code="1974-06" displayName="Serum or plasma total bilirubin measurement (mass/volume)" /> <statusCode code="completed" /> <effectiveTime value="500912689803 " /> <value unit="mg/dL" xsi:type="PQ" value="0.6" /> < referenceRange> <observationRange> <text>0.1-1.0</text> </observationRange> </referenceRange> </observation > </component> <component> <observation moodCode="EVN" classCode="OBS"> <templateId root="2.16.840.1.033959.10.20.22.4.2" /> <id nullFlavor="NA" /> <code codeSystem="local" code="6768-6" displayName="Serum or plasma alkaline phosphatase measurement (enzymatic activity/volume)" /> <statusCode code="completed" /> < effectiveTime value="264709610385" /> <value unit="U/L" xsi:type="PQ" value="69" /> <referenceRange> <observationRange> <text>40-136</text> </observationRange> </referenceRange > </observation> </component> <component> <observation moodCode="EVN" classCode="OBS"> <templateId root= "2.16.840.1.330317.10.20.22.4.2" /> <id nullFlavor="NA" /> < code codeSystem="local" code="192" displayName="Serum or plasma aspartate aminotransferase measurement (enzymatic activity/volume)" /> < statusCode code="completed" /> <effectiveTime value="092605628581" /> <value unit="U/L" xsi:type="PQ" value="21" /> <referenceRange > <observationRange> <text>5-34</text> </ observationRange> </referenceRange> </observation> </ component> <component> <observation moodCode="EVN" classCode="OBS"> <templateId root="16.840.1.119552.10.20.22.4.2" /> <id nullFlavor="NA" /> <code codeSystem="local" code="1742-6" displayName= "Serum or plasma alanine aminotransferase measurement (enzymatic activity/volume )" /> <statusCode code="completed" /> <effectiveTime value= "594386056500" /> <value unit="U/L" xsi:type="PQ" value="24" /> <referenceRange> <observationRange> <text>0-55</text > </observationRange> </referenceRange> </observation > </component> <component> <observation moodCode="EVN" classCode="OBS"> <templateId root="2.16.840.1.833267.10.20.22.4.2" /> <id nullFlavor="NA" /> <code codeSystem="local" code="2885-2" displayName="Serum or plasma protein measurement (mass/volume)" /> < statusCode code="completed" /> <effectiveTime value="908408400227" /> <value unit="g/dL" xsi:type="PQ" value="7.2" /> < referenceRange> <observationRange> <text>6.4-8.2</text> </observationRange> </referenceRange> </observation > </component> <component> <observation moodCode="EVN" classCode="OBS"> <templateId root="2.16.840.1.098528.10.20.22.4.2" /> <id nullFlavor="NA" /> <code codeSystem="local" code="1751-7" displayName="Serum or plasma albumin measurement (mass/volume)" /> < statusCode code="completed" /> <effectiveTime value="358032940493" /> <value unit="g/dL" xsi:type="PQ" value="4.2" /> < referenceRange> <observationRange> <text>3.2-4.5</text> </observationRange> </referenceRange> </observation > </component> <component> <observation moodCode="EVN" classCode="OBS"> <templateId root="16.840.1.300656.10.20.22.4.2" /> <id nullFlavor="NA" /> <code codeSystem="local" code= "CALCIUMCORR" displayName="CALCIUM CORRECTED" /> <statusCode code= "completed" /> <effectiveTime value="918571118540" /> <value unit="mg/dL" xsi:type="PQ" value="8.9" /> <referenceRange> < observationRange> <text>8.5-10.1</text> </ observationRange> </referenceRange> </observation> </ component> </organizer> </entry> <entry> <organizer moodCode="EVN" classCode="BATTERY"> <templateId root="06.27.840.1.762948.10.20.22.4.1" /> <id nullFlavor="NA" /> <code codeSystem="local" code="32935-1" displayName="Blood manual differential performed detection" /> <statusCode code="completed" /> <component> <observation moodCode="EVN" classCode="OBS"> <templateId root="06.27.840.1.672540.10.20.22.4.2" /> <id nullFlavor="NA" /> <code codeSystem="local" code="51598-0 " displayName="Blood monocytes/100 leukocytes" /> <statusCode code= "completed" /> <effectiveTime value="366893367256" /> <value unit="%" xsi:type="PQ" value="6" /> <referenceRange> < observationRange> <text>NRG</text> </observationRange> </referenceRange> </observation> </component> < component> <observation moodCode="EVN" classCode="OBS"> < templateId root="2.16.840.1.051522.10..4.2" /> <id nullFlavor="NA " /> <code codeSystem="local" code="769-0" displayName="Manual blood segmented neutrophils/100 leukocytes" /> <statusCode code="completed" / > <effectiveTime value="" /> <value unit="%" xsi:type="PQ" value="85" /> <referenceRange> < observationRange> <text>NRG</text> </observationRange> </referenceRange> </observation> </component> < component> <observation moodCode="EVN" classCode="OBS"> < templateId root="216.840.1.254359.10..4.2" /> <id nullFlavor="NA " /> <code codeSystem="local" code="22847-7" displayName="Blood band neutrophils/100 leukocytes" /> <statusCode code="completed" /> <effectiveTime value="" /> <value unit="%" xsi:type= "PQ" value="0" /> <referenceRange> <observationRange> <text>NRG</text> </observationRange> </ referenceRange> </observation> </component> <component> <observation moodCode="EVN" classCode="OBS"> <templateId root= "216.840.1.816898.10..22.4.2" /> <id nullFlavor="NA" /> < code codeSystem="local" code="737-7" displayName="Manual blood lymphocytes/100 leukocytes" /> <statusCode code="completed" /> <effectiveTime value="739122390560" /> <value unit="%" xsi:type="PQ" value="9" /> <referenceRange> <observationRange> <text>NRG< /text> </observationRange> </referenceRange> </ observation> </component> <component> <observation moodCode= "EVN" classCode="OBS"> <templateId root="2.16.840.1.549713.10.20.22.4.2 " /> <id nullFlavor="NA" /> <code codeSystem="local" code= "9727-9" displayName="Manual eosinophils/100 leukocytes in nose" /> < statusCode code="completed" /> <effectiveTime value="991932816149" /> <value unit="%" xsi:type="PQ" value="0" /> <referenceRange > <observationRange> <text>NRG</text> </ observationRange> </referenceRange> </observation> </ component> <component> <observation moodCode="EVN" classCode="OBS"> <templateId root="216.840.1.884015.10.20.22.4.2" /> <id nullFlavor="NA" /> <code codeSystem="local" code="707-0" displayName= "Manual blood basophils/100 leukocytes" /> <statusCode code="completed " /> <effectiveTime value="850845538929" /> <value unit="% " xsi:type="PQ" value="0" /> <referenceRange> < observationRange> <text>NRG</text> </observationRange> </referenceRange> </observation> </component> < component> <observation moodCode="EVN" classCode="OBS"> < templateId root="2.16.840.1.002425.10.20.22.4.2" /> <id nullFlavor="NA " /> <code codeSystem="local" code="702-1" displayName="Blood anisocytosis detection by light microscopy" /> <statusCode code= "completed" /> <effectiveTime value="820060937052" /> <value unit="" xsi:type="PQ" value="MODERATE" /> <referenceRange> < observationRange> <text>NRG</text> </observationRange> </referenceRange> </observation> </component> < component> <observation moodCode="EVN" classCode="OBS"> < templateId root="216.840.1.820893.10.20.22.4.2" /> <id nullFlavor="NA " /> <code codeSystem="local" code="728-6" displayName="Blood hypochromia detection by light microscopy" /> <statusCode code= "completed" /> <effectiveTime value="339727179810" /> <value unit="" xsi:type="PQ" value="MARKED" /> <referenceRange> < observationRange> <text>NRG</text> </observationRange> </referenceRange> </observation> </component> < component> <observation moodCode="EVN" classCode="OBS"> < templateId root="16.840.1.578533.10.20.22.4.2" /> <id nullFlavor="NA " /> <code codeSystem="local" code="741-9" displayName="Blood microcytes detection by light microscopy" /> <statusCode code= "completed" /> <effectiveTime value="263606534204" /> <value unit="" xsi:type="PQ" value="MODERATE" /> <referenceRange> < observationRange> <text>NRG</text> </observationRange> </referenceRange> </observation> </component> </ organizer> </entry> <entry> <organizer moodCode="EVN" classCode="BATTERY"> <templateId root="840.1.557493.10..22.4.1" /> <id nullFlavor= "NA" /> <code codeSystem="local" code="2117-12" displayName="Serum or plasma choriogonadotropin ( test) detection" /> <statusCode code= "completed" /> <component> <observation moodCode="EVN" classCode= "OBS"> <templateId root="16.840.1.052499.10..4.2" /> < id nullFlavor="NA" /> <code codeSystem="local" code="2117-12" displayName="Serum or plasma choriogonadotropin ( test) detection" /> <statusCode code="completed" /> <effectiveTime value= "887475517431" /> <value unit="" xsi:type="PQ" value="NEGATIVE" /> <referenceRange> <observationRange> <text>NEGATIVE </text> </observationRange> </referenceRange> </ observation> </component> </organizer> </entry> <entry> <organizer moodCode="EVN" classCode="BATTERY"> <templateId root= "216.840.1.309610.10..22.4.1" /> <id nullFlavor="NA" /> <code codeSystem="local" code="13978-8" displayName="Blood lactic acid measurement ( moles/volume)" /> <statusCode code="completed" /> <component> < observation moodCode="EVN" classCode="OBS"> <templateId root= "216.840.1.361710.10..22.4.2" /> <id nullFlavor="NA" /> < code codeSystem="local" code="75655-9" displayName="Blood lactic acid measurement (moles/volume)" /> <statusCode code="completed" /> <effectiveTime value="175676963681" /> <value unit="mmol/L" xsi:type= "PQ" value="1.03" /> <referenceRange> <observationRange> <text>0.50-2.00</text> </observationRange> </ referenceRange> </observation> </component> </organizer> </entry ></section> Encounters ACCT No. Visit Date/Time Discharge Status Pt. Type Provider Facility Loc./Unit Complaint [id number] 11/09/2016 16:32:00 11/09/2016 16:58:00 DIS Emergency Secrist DO, [facility].EDW [id number] 09/06/2016 12:52:00 09/06/2016 16:30:00 DIS Emergency Secrist DO, [facility].EDW [id number] 07/31/2016 16:36:00 07/31/2016 16:56:00 DIS Emergency Stiven Moralez DO [facility].EDW [id number] 01/11/2016 08:16:00 01/11/2016 08:47:00 DIS Emergency Marc TA, [facility].EDW [id number] 12/28/2015 19:32:00 12/28/2015 20:25:00 DIS Emergency Marc TA, [facility].EDW [id number] 11/28/2015 08:04:00 11/28/2015 08:30:00 [facility] [id number] 01/04/2015 09:52:00 01/04/2015 13:04:00 DIS Emergency Santoyo DO, [facility] [id number] 01/01/2015 09:22:00 01/01/2015 12:40:00 DIS Emergency Secrist DO, [facility].EDW [id number] 12/27/2014 21:37:00 12/27/2014 23:13:00 [id number] 09/17/2014 10:42:00 09/17/2014 11:10:00 DIS Emergency Stiven Moralez DO [facility] [place] [facility] [id number] 11/26/2017 08:00:00 11/26/2017 23:59:59 CLS Outpatient FAWN VIEIRA LAC[facility] [id number] 11/19/2017 20:04:00 11/20/2017 13:40:00 DIS Outpatient Leon Naik [facility] [id number] 03/31/2017 12:56:00 03/31/2017 23:59:00 DIS Outpatient Roxy Moon [id number] 03/27/2017 21:26:00 03/28/2017 18:20:00 DIS Outpatient Daniel Joseph [facility] [id number] 03/27/2017 23:46:04 Document Registration [id number] 03/19/2018 17:23:00 03/21/2018 11:50:00 DIS Inpatient JOSEPH TA, JOSE Whipple [facility] 4TH SEPSIS, UTI [id number] 01/29/2018 12:54:00 01/29/2018 19:55:00 DIS [facility] [id number] 12/01/2017 17:13:00 12/01/2017 18:01:00 DIS Emergency IRISH ECKERT [facility] ER L HAND INJ [id number] 05/29/2017 02:30:00 05/29/2017 06:20:00 DIS Emergency KENDRA TA, SHIRLENE Jackson [facility] ER LEFT SIDE ABD PAIN [id number] 05/24/2018 15:37:00 Document Registration [id number] 11/19/2017 20:04:00 Document Registration
[2018-05-24 21:05] VITALS: BP 108/53
--- NOTE | 2018-05-24 21:05 | NUR ---
PRAVEENA PARK Severino admitted to room 410-1, with an admitting diagnosis of pyelonephritis and hydrosalpynx, on 05/24/18 from ED via , accompanied by ED Staff.PRAVEENA PARK introduced to surroundings, call light, bed controls, phone, TV, temperature control, lights, meal times, smoking policy, visitor policy, side rail policy, bathrooms and showers. Patient Rights given to patient in the handbook. PRAVEENA PARK verbalizes understanding that [facility] is not responsible for the loss or damage to any personal effects or valuables that are kept in the patients posession during their hospitalization. Pt plan of care discussed with pt, no questions or concerns at this time.
[2018-05-24] MEDS ORDERED: ONDANSETRON 4 MG/2 ML (SDV) Z0FRAN IV PRN (21:45)
[2018-05-24] MEDS ORDERED: PIPERACILLIN/TAZO 4.5 GM/NS 100 ML IV ONE ×2 (21:45)
[2018-05-24] MEDS: NS IV 1000 ML 1,000 ML IV SCH (21:49)
[2018-05-24] MEDS: ACETAMINOPHEN 500 MG TAB (TYLENOL) PO PRN (21:50)
[2018-05-25 00:01] VITALS: BP 95/58
[2018-05-25] MEDS: PIPERACILLIN/TAZO 4.5 GM/NS 100 ML IV SCH ×6 (01:29→17:30)
[2018-05-25 04:03] VITALS: BP 96/54
[2018-05-25] MEDS: fentaNYL INJECTION 100 MCG/2 ML AMP IV PRN ×4 (05:47→20:00)
[2018-05-25] MEDS: NS IV 1000 ML 1,000 ML IV SCH ×3 (05:48→21:45)
[2018-05-25] MEDS: ACETAMINOPHEN 500 MG TAB (TYLENOL) PO PRN ×2 (05:53→16:38)
[2018-05-25 06:21] LABS: BASOPHILS % (AUTO) 0 % (0-10); EOSINOPHILS # (AUTO) 0.1 10^3/uL (0.0-0.3); EOSINOPHILS % (AUTO) 1 % (0-10); HEMATOCRIT 23 % (35-52); LYMPHOCYTES % (AUTO) 11 % (12-44); MEAN CORPUSCULAR HEMOGLOBIN 22 PG (25-34); MEAN CORPUSCULAR HGB CONC 30 G/DL (32-36); MEAN CORPUSCULAR VOLUME 73 FL (80-99); MEAN PLATELET VOLUME 11.1 FL (7.4-10.4); MONOCYTES % (AUTO) 11 % (0-12); NEUTROPHILS % (AUTO) 78 % (42-75); PLATELET COUNT 215 10^3/uL (130-400); RED CELL DISTRIBUTION WIDTH 20.6 % (10.0-14.5)
[2018-05-25 06:39] LABS: BUN/CREATININE RATIO 24; CALCIUM 8.3 MG/DL (8.5-10.1); CARBON DIOXIDE 21 MMOL/L (21-32); CHLORIDE 109 MMOL/L (98-107); CREATININE SERUM 0.75 MG/DL (0.60-1.30); GFR ESTIMATED > 60; GLUCOSE 92 MG/DL (70-105); POTASSIUM 3.6 MMOL/L (3.6-5.0); SODIUM 139 MMOL/L (135-145)
[2018-05-25] MEDS ORDERED: FLU QUADRIvalent (5+ YOA) 2018-2019 (AFLURIA) 0.5 ML IM ONE (07:30)
[2018-05-25 08:12] VITALS: BP 102/58
--- NOTE | 2018-05-25 10:43 | NUR ---
DR WASHINGTON NOTIFIED OF CONSULT.
--- NOTE | 2018-05-25 11:22 | History & Physical-Hospitalist ---
History of Present Illness HPI/Chief Complaint Pt is a 32yoCF with a PMH of collagenous colitis and recurrent UTIs who presented to the ER due to back and right lower quadrant pain that started 2 days ago. She developed a fever of 102 as well. She believed that she had a kidney infection again as that is how she presented in March. She is currently on her period as well and sates she normally has heavy periods but not this heavy. LMP 05/23/18. CT was done in the ER which revealed possible pyelonephritis and could not rule out a hydrosalpinx or TOA. Source: patient Date Seen 05/25/18 Time Seen by a Provider: 11:20 Attending Physician Evie Raza MD PCP No,Local Physician Referring Physician Date of Admission May 24, 2018 at 20:00 Home Medications & Allergies Home Medications Reviewed patient Home Medication Reconciliation performed by pharmacy medication reconciliations biological science technician and/or nursing. Patients Allergies have been reviewed. 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 Smoking Status: Current Everyday Smoker Type Used: Cigarettes Physical Abuse Screen: No Sexual Abuse: No Recent Foreign Travel: No Contact w/other who traveled: No Recent Hopitalizations: Yes (UTI 3 months ago) Recent Infectious Disease Expo: No Immunizations Up To Date Tetanus Booster (TDap): Unknown Pediatric: Yes Seasonal Allergies Seasonal Allergies: No Past Medical History Surgeries: Adenoidectomy, Breast (abscess drained), Section, Tonsillectomy Currently Using CPAP: No Currently Using BIPAP: No : No Reproductive: No Tubal Ligation Genitourinary: Kidney Infection, UTI-Chronic Gastrointestinal: Colitis (collagenous) Musculoskeletal: Scoliosis History of Blood Disorders: Yes (anemia) Adverse Reaction to Blood [place]: No (has received blood on mult occasions) Family History Reviewed Nursing Family Hx Diabetes mellitus maternal grandfather paternal grandfather Gastroenteritis 19 FATHER paternal grandmother ( from sepsis at age 85) maternal grandfather Hypertension 19 MOTHER maternal grandmother maternal grandfather Neoplasm maternal aunt (breast cancer) Review of Systems Constitutional: fever Gastrointestinal: abdominal pain Genitourinary: No discharge, No dysuria Musculoskeletal: back pain All Other Systems Reviewed Negative Unless Noted: Yes (Negative excepted noted.) Physical Exam Physical Exam Vital Signs Vital Signs - First Documented 05/24/18 05/24/18 15:29 20:24 Temp 97.9 Pulse 115 Resp 20 B/P (MAP) 109/82 (91) Pulse Ox 100 O2 Delivery Room Air Capillary Refill : Less Than 3 Seconds Height, Weight, BMI Height: 5'3.00" Weight: 117lbs. 3.0oz. 53.367947zy; 20.8 BMI Method:Stated General Appearance: No Apparent Distress, Thin HEENT: PERRL/EOMI, Moist Mucous Membranes Neck: Non Tender, Supple Respiratory: Lungs Clear, No Respiratory Distress Cardiovascular: Regular Rate, Rhythm, No Murmur Gastrointestinal: Normal Bowel Sounds, Non Tender, Soft Extremity: Normal Capillary Refill, No Calf Tenderness Neurologic/Psychiatric: Alert, Oriented x3, Normal Mood/Affect Skin: Normal Color, Warm/Dry, Pallor Results Results/Procedures Labs Laboratory Tests 05/24/18 15:25 05/25/18 05:33 05/25/18 05:53 Patient resulted labs reviewed. Imaging: Reviewed Imaging Report Assessment/Plan Admission Diagnosis Pyelonephritis Admission Status: Inpatient Order (span 2 midnights) Reason for Inpatient Admission: IV abx, await c/s Diagnosis/Problems Diagnosis/Problems (1) Sepsis Status: Resolved Assessment & Plan: Continue on Zosyn for pyelonephritis vs TBO as source Leukocytosis resolved Await c/s Met no severe criteria Negative wet prep Change Control Coordinator consulted, appreciate recs Qualifiers: Sepsis type: sepsis due to unspecified organism Qualified Codes: A41.9 - Sepsis, unspecified organism (2) Pyelonephritis Status: Acute Assessment & Plan: Continue on Zosyn as above (3) Microcytic anemia Status: Chronic Assessment & Plan: Hgb in March 8.3 Down to 7.0 today Change Control Coordinator consulted Will check iron studies h/o collagenous colitis so possibly due to malnutrition from malabsorption (4) Hydrosalpinx Status: Acute Assessment & Plan: As above Clinical Quality Measures DVT/VTE Risk/Contraindication: Risk Factor Score Per Nursin RFS Level Per Nursing on Admit: 1=Low/No VTE PPX JOSE RUIZ MD May 25, 2018 11:22
[2018-05-25 11:58] VITALS: BP 111/56
--- NOTE | 2018-05-25 12:26 | NUR ---
Spoke to patient she stated she does not take any medications.
--- NOTE | 2018-05-25 14:37 | History & Physical ---
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 This patient is a 32-year-old A3 white female who is currently on her menses. She reports having monthly menses. She has a history of severe onset of abdominal back and right sided pain for which she was seen in the emergency department yesterday. Evaluation was consistent with a pyelonephritis but also concerning for PID/TOA. She is admitted for IV antibiotics and IV fluids and supportive care. I was consult for SHREDDER/GRANULATOR OPERATOR evaluation secondary to the concern for TOA. Patient reports that her pain is slightly improved but still persists since admission. She denies vaginal discharge or dysuria or dyschezia. She denies breakthrough bleeding. She currently has no control and is trying to conceive. She states that she has some nausea but that has improved since admission. She reports that she has had frequent urinary tract infections and I will nephritis. She states that she's never had PID. Her last Pap smear was over 5 years ago. Allergies are to ciprofloxacin was causes a rash Medications on admission were none Medications currently are per the MAR Past medical history is significant for colitis and scoliosis Past surgical history is significant for T and A/was some teeth removal/C- section 1/drainage of left breast abscess Family history noncontributory Social history includes a significant drug abuse history Laboratory Tests Test 05/24/18 15:18 05/24/18 15:25 05/24/18 18:08 05/24/18 19:53 Range/Units Urine Color YELLOW Urine Clarity SLIGHTLY CLOUDY Urine pH 6 5-9 Urine Specific [place] 1.010 L 1.016-1.022 Urine Protein 3+ H NEGATIVE Urine Glucose (UA) NEGATIVE NEGATIVE Urine Ketones NEGATIVE NEGATIVE Urine Nitrite NEGATIVE NEGATIVE Urine Bilirubin NEGATIVE NEGATIVE Urine Urobilinogen NORMAL NORMAL MG/DL Urine Leukocyte Esterase 3+ H NEGATIVE Urine RBC (Auto) 5+ H NEGATIVE Urine RBC 50-100 H /HPF Urine WBC 50-100 H /HPF Urine Squamous Epithelial Cells 5-10 /HPF Urine Crystals NONE /LPF Urine Bacteria NEGATIVE /HPF Urine Casts NONE /LPF Urine Mucus NEGATIVE /LPF Urine Culture Indicated YES White Blood Count 15.1 H 4.3-11.0 10^3/uL Red Blood Count 3.78 L 4.35-5.85 10^6/uL Hemoglobin 8.2 L 11.5-16.0 G/DL Hematocrit 27 L 35-52 % Mean Corpuscular Volume 71 L 80-99 FL Mean Corpuscular Hemoglobin 22 L 25-34 PG Mean Corpuscular Hemoglobin Concent 31 L 32-36 G/DL Red Cell Distribution Width 20.3 H 10.0-14.5 % Platelet Count 219 130-400 10^3/uL Mean Platelet Volume 10.6 H 7.4-10.4 FL Neutrophils (%) (Auto) 80 H 42-75 % Lymphocytes (%) (Auto) 8 L 12-44 % Monocytes (%) (Auto) 12 0-12 % Eosinophils (%) (Auto) 0 0-10 % Basophils (%) (Auto) 0 0-10 % Neutrophils # (Auto) 12.2 H 1.8-7.8 X 10^3 Lymphocytes # (Auto) 1.2 1.0-4.0 X 10^3 Monocytes # (Auto) 1.7 H 0.0-1.0 X 10^3 Eosinophils # (Auto) 0.0 0.0-0.3 10^3/uL Basophils # (Auto) 0.0 0.0-0.1 10^3/uL Neutrophils % (Manual) 85 % Lymphocytes % (Manual) 9 % Monocytes % (Manual) 6 % Eosinophils % (Manual) 0 % Basophils % (Manual) 0 % Band Neutrophils 0 % Hypochromasia MARKED Anisocytosis MODERATE Microcytosis MODERATE Sodium Level 136 135-145 MMOL/L Potassium Level 3.5 L 3.6-5.0 MMOL/L Chloride Level 104 98-107 MMOL/L Carbon Dioxide Level 18 L 21-32 MMOL/L Anion Gap 14 5-14 MMOL/L Blood Urea Nitrogen 20 H 7-18 MG/DL Creatinine 0.85 0.60-1.30 MG/DL Estimat Glomerular Filtration Rate > 60 BUN/Creatinine Ratio 24 Glucose Level 93 70-105 MG/DL Calcium Level 9.1 8.5-10.1 MG/DL Corrected Calcium 8.9 8.5-10.1 MG/DL Total Bilirubin 0.6 0.1-1.0 MG/DL Aspartate Amino Transf (AST/SGOT) 21 5-34 U/L Alanine Aminotransferase (ALT/SGPT) 24 0-55 U/L Alkaline Phosphatase 69 40-136 U/L Total Protein 7.2 6.4-8.2 GM/DL Albumin 4.2 3.2-4.5 GM/DL Serum Test, Qualitative NEGATIVE NEGATIVE Lactic Acid Level 1.03 0.50-2.00 MMOL/L Test 05/25/18 05:33 05/25/18 05:53 Range/Units White Blood Count 9.0 4.3-11.0 10^3/uL Red Blood Count 3.20 L 4.35-5.85 10^6/uL Hemoglobin 7.0 L 11.5-16.0 G/DL Hematocrit 23 L 35-52 % Mean Corpuscular Volume 73 L 80-99 FL Mean Corpuscular Hemoglobin 22 L 25-34 PG Mean Corpuscular Hemoglobin Concent 30 L 32-36 G/DL Red Cell Distribution Width 20.6 H 10.0-14.5 % Platelet Count 215 130-400 10^3/uL Mean Platelet Volume 11.1 H 7.4-10.4 FL Neutrophils (%) (Auto) 78 H 42-75 % Lymphocytes (%) (Auto) 11 L 12-44 % Monocytes (%) (Auto) 11 0-12 % Eosinophils (%) (Auto) 1 0-10 % Basophils (%) (Auto) 0 0-10 % Neutrophils # (Auto) 7.0 1.8-7.8 X 10^3 Lymphocytes # (Auto) 1.0 1.0-4.0 X 10^3 Monocytes # (Auto) 1.0 0.0-1.0 X 10^3 Eosinophils # (Auto) 0.1 0.0-0.3 10^3/uL Basophils # (Auto) 0.0 0.0-0.1 10^3/uL Sodium Level 139 135-145 MMOL/L Potassium Level 3.6 3.6-5.0 MMOL/L Chloride Level 109 H 98-107 MMOL/L Carbon Dioxide Level 21 21-32 MMOL/L Anion Gap 9 5-14 MMOL/L Blood Urea Nitrogen 18 7-18 MG/DL Creatinine 0.75 0.60-1.30 MG/DL Estimat Glomerular Filtration Rate > 60 BUN/Creatinine Ratio 24 Glucose Level 92 70-105 MG/DL Calcium Level 8.3 L 8.5-10.1 MG/DL 05/24/18 15:25: Serum Test, Qualitative NEGATIVE CT scan was obtained that showed what appeared to be a an abnormal right fallopian tube. The uterus appeared normal. There was a small amount of fluid in the pelvis. The right fallopian tube contained fluid was some debris. GBS confirmed the CT findings. Patient does report having lower no pain with the TVS. HEENT exam is normal Neck is supple no lymphadenopathy no thyromegaly Heart has regular rhythm with no murmur Chest clear auscultation bilaterally Abdomen is flat diffusely mildly tender. There is no guarding rebound or rigidity. Bowel sounds are present. Extremities show no clubbing cyanosis. There is no Homans sign. Pelvic exam is deferred Assessment and plan 32-year-old grand multipara with abdominal flank and back pain consistent with pyelonephritis. The lab work supports the diagnosis as well. Cultures are pending. Wet prep of vaginal discharge showed few white blood cells which likely would have been significantly increased with PID. Patient is on appropriate antibiotics. CT finding and ultrasound are concerning for at least a hydrosalpinx if not more. I would plan on all of them my clinic for further evaluation of her abnormal pelvic findings. Have no specific recommendations for additional workup or treatment at this point. We will assess patient be scheduled for return to clinic with me in 2-3 weeks for follow-up in regard to her pelvic findings on CT and ultrasound Thank you for this consultation. I am available if I can be of further assistance Pyelonephritis/TOA Allergies and Home Medications Allergies Coded Allergies: ciprofloxacin (Unverified Allergy, Unknown, 05/29/17) Home Medications No Active Prescriptions or Reported Meds Patient Home Medication List Home Medication List Reviewed: Yes Clinical Quality Measures DVT/VTE Risk/Contraindication: Risk Factor Score Per Nursin RFS Level Per Nursing on Admit: 1=Low/No VTE PPX NEVAEH WASHINGTON MD May 25, 2018 14:37
--- NOTE | 2018-05-25 14:39 | Discharge Instructions ---
Discharge Instructions Orders-Post D/C & Referrals Call to make follow up appt. for patient in my clinic for MICROWAVE SUPERVISOR evaluation in 2 - 3 weeks. NEVAEH WASHINGTON MD May 25, 2018 14:39
--- NOTE | 2018-05-25 16:09 | NUR ---
Pastoral Care Visit.
[2018-05-25 16:30] VITALS: BP 122/59
[2018-05-25 19:20] VITALS: BP 104/56
[2018-05-26 00:34] VITALS: BP 111/67
[2018-05-26] MEDS: PIPERACILLIN/TAZO 4.5 GM/NS 100 ML IV SCH ×4 (01:04→09:08)
[2018-05-26 04:04] VITALS: BP 108/69
[2018-05-26] MEDS: fentaNYL INJECTION 100 MCG/2 ML AMP IV PRN ×2 (05:48→09:11)
[2018-05-26] MEDS: NS IV 1000 ML 1,000 ML IV SCH ×2 (06:00→14:42)
[2018-05-26 08:00] VITALS: BP 113/75
[2018-05-26 12:00] VITALS: BP 110/66
[2018-05-26] MEDS ORDERED: CEPH-507 PO (13:27)
--- NOTE | 2018-05-26 13:28 | Discharge Summary-Hospitalist ---
Diagnosis/Chief Complaint Date of Admission May 24, 2018 at 20:00 Date of Discharge Discharge Date: May 26, 2018 Admission Diagnosis Pyelonephritis Discharge Diagnosis (1) Sepsis Status: Resolved Assessment & Plan: Continue on Zosyn for pyelonephritis vs TBO as source Leukocytosis resolved Await c/s Met no severe criteria Negative wet prep (2) Pyelonephritis Status: Acute Assessment & Plan: Continue on Zosyn as above (3) Microcytic anemia Status: Chronic Assessment & Plan: Hgb in March 8.3 Down to 7.0 today Cartridge Filler consulted Will check iron studies h/o collagenous colitis so possibly due to malnutrition from malabsorption (4) Hydrosalpinx Status: Acute Assessment & Plan: As above Discharge Summary Discharge Physical Exam Allergies: Coded Allergies: ciprofloxacin (Unverified Allergy, Unknown, 05/29/17) Vitals & I&Os Vital Signs Date Time Temp Pulse Resp B/P (MAP) Pulse Ox O2 Delivery O2 Flow Rate FiO2 05/26/18 12:00 98.0 89 18 110/66 (81) 99 Room Air Hospital Course Labs (last 24 hrs) Microbiology 05/24/18 Blood Culture - Preliminary, Resulted No growth 05/24/18 Wet Prep - Final, Complete 05/24/18 Urine Culture - Final, Complete Escherichia coli Patient resulted labs reviewed. Imaging: Reviewed Imaging Report Discharge Home Medications: Active Scripts Active Keflex (Cephalexin) 500 Mg Capsule 500 Mg PO BID Instructions to patient/family Please see electronic discharge instructions given to patient. Clinical Quality Measures DVT/VTE Risk/Contraindication: Risk Factor Score Per Nursin RFS Level Per Nursing on Admit: 1=Low/No VTE PPX Problem Qualifiers (1) Sepsis: Sepsis type: sepsis due to unspecified organism Qualified Codes: A41.9 - Sepsis, unspecified organism JOSE RUIZ MD May 26, 2018 13:28
== END 2018-05-26 14:55 | disposition home or self-care (01) | DRG 872 ==
LOC: EDUNIT# 15:09 → ER 15:10 → 4TH 20:00
PROVIDERS: ADMIT Internal Medicine; ATTEND Internal Medicine
DX: A41.9 Sepsis, unspecified organism (principal); N10 Acute pyelonephritis; N70.01 Acute salpingitis; M41.9 Scoliosis, unspecified; D50.9 Iron deficiency anemia, unspecified; F17.210 Nicotine dependence, cigarettes, uncomplicated; Z87.440 Personal history of urinary (tract) infections; Z87.19 Personal history of other diseases of the digestive system; Z88.1 Allergy status to other antibiotic agents
CPT/HCPCS: 36415; 74178; 76830; 80048; 80053; 81000; 82728; 83540; 83605; 84703; 85007; 85025; 85027; 87040; 87088; 87186; 87210; 87491; 87591; 96361; 96365; 96375

== ENCOUNTER 2018-06-12 17:04 | Emergency (ER) | payer SELFPAY ==
--- OUTSIDE RECORDS SUMMARY | 2018-06-12 17:11 | XMS REPORT | Continuity of Care Document ---
Author Author [facility] Organization [facility] Address Unknown Phone Unavailable Allergies Active Description Code Type Severity Reaction Onset Reported/Identified Relationship to Patient Clinical Status Yes CIPRO MODERATE DERMATOLOGICAL - HIV Yes No Known Drug Allergies [id number] Drug Allergy Unknown N/A 09/22/2007 Yes ciprofloxacin ciprofloxacin Drug Allergy Unknown unknown 07/31/2016 Yes ciprofloxacin [id number] Drug Allergy Unknown N/A 05/29/2017 Medications Medication [...] 03/28/2017 Daniel Joseph 564.00 CONSTIPATION, UNSPECIFIED 03/28/2017 aDniel Joseph D64.9 ANEMIA, UNSPECIFIED 03/28/2017 Daniel Joseph [...] Z90.89 ACQUIRED ABSENCE OF OTHER ORGANS 01/29/2018 [facility] SANTACRUZ Ot F17.210 NICOTINE DEPENDENCE, CIGARETTES, UNCOMPL 01/29/2018 [facility], JAYY D Ot N61.1 ABSCESS OF THE BREAST AND NIPPLE [facility] NICOTINE DEPENDENCE, CIGARETTES, UNCOMPL 02[facility]02[facility] N61.1 ABSCESS OF THE [...] PERSONAL HISTORY OF OTHER DISEASES OF TH 05/26/2018 [facility] CISNEROS MD Ot A41.9 SEPSIS, UNSPECIFIED ORGANISM 05/26/2018 CHET CISNEROS MD Ot D50.9 IRON DEFICIENCY ANEMIA, UNSPECIFIED 05/26/2018 CHET CISNEROS MD Ot F17.210 NICOTINE DEPENDENCE, CIGARETTES, UNCOMPL 05/26/2018 CHET CISNEROS MD Ot M41.9 SCOLIOSIS, UNSPECIFIED 05/26/2018 CHET CISNEROS MD Ot N10 ACUTE PYELONEPHRITIS 05/26/2018 CHET CISNEROS MD Ot N70.01 ACUTE SALPINGITIS 05/26/2018 CHET CISNEROS MD Ot Z87.19 PERSONAL HISTORY OF OTHER DISEASES OF 05/26/2018 CHET CISNEROS MD Ot Z87.440 PERSONAL HISTORY OF URINARY (TRACT) INFE 05/26/2018 CHET CISNEROS MD Ot Z88.1 ALLERGY STATUS TO OTHER ANTIBIOTIC AGENT Procedures There is no data. <section xmlns="urn:hl7-org:v3" xmlns:xsi="http:// www.3.org/2001/XMLSchema-instance"> <templateId root= "[id number]" /> <templateId root= "[id number]" /> <code codeSystemName="LOINC" codeSystem= "[id number]" code="54193-4" displayName="Results" /> <title>Results< /title> <text> <table> <thead> [...] </td> < td> </td> </tr> <tr> <td>Urine-Specific [place]</td> <td>1.020 </td> <td>1.000-1.030</td> </tr> <tr> <td>Urine-WBC</td> <td>2-5/HPF </td> <td> </td> </tr> <tr> <td>Urobilinogen</td> <td>0.2 </td> <td>0.2-1.0</td> </tr> <tr> < colspan="10">XM (2) [facility] - 03/27/17 22:55</th> </tr> <tr> <td>CROSSMATCH</td > [...] <td>Tricyclic Antidepressant</td> <td>NEGATIVE </td> <td>NEGATIVE</td> </tr> <tr> <th colspan="10"> [facility] - 03/28/17 12:00</th> </tr> <tr> <td> Surg Path</td> <td>Sent to [facility] </td> <td /> </tr> <tr> < colspan="10">[facility]OBT Occult Blood - 03/28/17 13 :25</th> </tr> <tr> <td>IFOBT Occult Blood</td> <td>NEGATIVE </td> <td>Negative</td> </tr> <tr> <th colspan="10">HH - 03/28/17 16:00</th> </tr> <tr> <td> [...] > <td>MCV</td> <td>73.4 fL</td> <td>80.0-97.0</td> </tr> <tr> <td>[place]%</td> <td>7.6 %</td> <td>0.0-12.0</td> </tr> <tr> <td>MPV</td> <td>11.1 fL</td> <td>7.4-10.0</td> </tr> <tr> <td>Julianne%</td> <td>60.2 %</td> <td>37.0-80.0</td> </tr> <tr> <td>Plt</td> <td>222 K/uL</td> <td>150-400</td> </tr> <tr> <td>RBC</td> <td >4.67 M/uL</td> <td>3.60-5.00</td> </tr> <tr> < td>RDW</td> <td>22.7 %</td> <td>11.6-14.8</td> </tr > <tr> <td>WBC</td> <td>7.36 K/uL</td> <td> 5.00-10.00</td> </tr> <tr> <td>Julianne</td> <td> 4.43 K/uL</td> <td>2.00-6.90</td> </tr> <tr> <td >Caribou</td> <td>0.6 K/uL</td> <td>0.0-0.9</td> </tr> <tr> <td>Baso</td> <td>0.1 K/uL</td> <td>0.0-0.2 </td> </tr> <tr> <th colspan="10">Complete urinalysis with reflex to culture - [...] (mass/volume)</td> <td>9.6 mg/dL</ td> <td>8.5-10.1</td> </tr> <tr> < colspan="10 ">Serum or plasma choriogonadotropin ( test) [...] </tr> <tr> <td>Gram stain microscopy< /td> <td>REPORTED 01-30-2018,604. </td> <td>NRG</td> </ tr> <tr> <th colspan="10">Bacteria identification in wound by culture - 01/29/18 16:37</th> </tr> <tr> <td>Bacteria identification in wound by culture</td> <td>SEE REPORT </td> < td>NRG</td> </tr> <tr> <td>FREE TEXT EXTERNAL</td> <td>METHICILLIN-RESISTANT STAPH AUREUS </td> <td>NRG</td> </ tr> <tr> <td>QUANTITY OF GROWTH</td> <td>. </td> <td>NRG</td> </tr> <tr> < colspan="10">[facility] Sensitivity Panel - 01/29/18 16:37</th> </tr> [...] culture</td> <td>YES </td> <td>NRG</td> </tr> <tr> < colspan="10">Bacterial urine culture - 03/19/18 15:50</th> </tr> <tr> <td>Bacterial urine culture</td> <td> [id number] </td> <td>NRG</td> </tr> <tr> <td> COLONY COUNT</td> <td>>100,000/ML </td> <td>NRG</td> </tr> <tr> <td>FTX;REPORTABLE</td> <td> SUSCEPTIBILITY REPORTED 03-21-2018,1005 </td> <td>NRG</td> </tr > <tr> <th colspan="10">[facility] Sensitivity Panel - 03/19/18 15:50</ th> [...] <tr> < th colspan="10">Comprehensive metabolic panel - 03/20/18 06:10</th> </tr [...] /td> <td>1.5 mg/dL</td> <td>1.8-2.4</td> </tr> < tr> <th colspan="10">Complete urinalysis with reflex to culture - [...] </tr> <tr> <th colspan="10">Bacterial urine culture - 05/24/18 15:18</th> </tr> <tr> <td>Bacterial urine culture</td> <td>[id number] </td> <td>NRG</td> </ tr> <tr> <td>COLONY COUNT</td> <td>>100,000/ML </td > <td>NRG</td> </tr> <tr> <td>FREE TEXT ENTRY 2< /td> <td>RML SENT SENSITIVITY 05/26 08:05 </td> <td>NRG</td> </tr> <tr> <td>FREE TEXT ENTRY 3</td> <td>RML SENT ID REPORT 05/25 16:05 </td> <td>NRG</td> </tr> <tr> <th colspan="10">[facility] Sensitivity Panel - 05/24/18 15:18</th> </ tr> <tr> <td>Gentamicin susceptibility test by minimum inhibitory concentration</td> <td>< </td> <td>NRG</td> </tr> <tr> <td>Trimethoprim/sulfamethoxazole susceptibility test by minimum inhibitoryconcentration</td> <td>> </td> < td>NRG</td> </tr> <tr> <td>Levofloxacin susceptibility test by minimum inhibitory concentration</td> <td><=</td> < td>NRG</td> </tr> <tr> <td>Ampicillin susceptibility test by minimum inhibitory concentration</td> <td>> </td> < td>NRG</td> </tr> <tr> <td>Cefazolin susceptibility test by minimum inhibitory concentration</td> <td>2 </td> <td>NRG</ td> </tr> <tr> <td>Ceftriaxone susceptibility test by minimum inhibitory concentration</td> <td><=</td> <td>NRG</ td> </tr> <tr> <td>Ciprofloxacin susceptibility test by minimum inhibitory concentration</td> <td><=</td> <td>NRG</ td> </tr> <tr> <td>Meropenem susceptibility test by minimum inhibitory concentration</td> <td><=</td> <td>NRG</ td> </tr> <tr> <td>Nitrofurantoin susceptibility test by minimum inhibitory concentration</td> <td><=</td> <td>NRG</ td> </tr> <tr> <td>Amoxicillin and clavulanate potassium susc SHAYNA</td> <td>=</td> <td>NRG</td> </tr> <tr > <th colspan="10">Complete blood count (CBC) with automated white blood cell (WBC) differential - 05/24/18 15:25</th> </tr> <tr> <td>Blood leukocytes automated count (number/volume)</td> <td> 15.1 10*3/uL</td> <td>4.3-11.0</td> </tr> <tr> < td>Blood erythrocytes automated count (number/volume)</td> <td>3.78 10* 6/uL</td> <td>4.35-5.85</td> </tr> <tr> <td> Venous blood hemoglobin measurement (mass/volume)</td> <td>8.2 g/dL</td > <td>11.5-16.0</td> </tr> <tr> <td>Blood hematocrit (volume fraction)</td> <td>27 %</td> <td>35-52< /td> </tr> <tr> <td>Automated erythrocyte mean corpuscular volume</td> <td>71 [foz_us]</td> <td>80-99</td> </tr> <tr> <td>Automated erythrocyte mean corpuscular hemoglobin (mass per erythrocyte)</td> <td>22 pg</td> <td>25- 34</td> </tr> <tr> <td>Automated erythrocyte mean corpuscular hemoglobin concentration measurement (mass/volume)</td> <td >31 g/dL</td> <td>32-36</td> </tr> <tr> <td> Automated erythrocyte distribution width ratio</td> <td>20.3 %</td > <td>10.0-14.5</td> </tr> <tr> <td>Automated blood [...] acid measurement (moles/volume)</td> <td>1.03 mmol/L</td> <td>0.50-2.00</td> </tr> <tr> <th colspan="10"> Bacterial blood culture - 05/24/18 18:08</th> </tr> <tr> <td>Bacterial blood culture</td> <td>NG </td> <td>NRG</td> </tr> <tr> <th colspan="10">Bacterial blood culture - 05/24 19:00</th> </tr> <tr> <td>Bacterial blood culture</td > <td>NG </td> <td>NRG</td> </tr> <tr> <th colspan="10">Microscopic examination by wet preparation - 05/24/18 19:53</th > </tr> <tr> <td>WET PREP RESULTS</td> <td>05/24 20:14 BY Henrietta GALAN </td> <td>NRG</td> </tr> <tr> < th colspan="10">Neisseria gonorrhoeae DNA detection by probe and signal amplification method - 05/24/18 19:53</th> </tr> <tr> <td >Gonorrhea amp DNA-urine</td> <td>Not Detected </td> <td>Not Detected</td> </tr> <tr> < colspan="10">Chlamydia trachomatis DNA detection by probe and signal amplification method - 05/24/18 19 :53</th> </tr> <tr> <td>Chlamydia trachomatis DNA detection by probe and target amplification method</td> <td>Not Detected </td> <td>Not Detected</td> </tr> <tr> <th colspan="10">Complete blood count (CBC) with automated white blood cell (WBC ) differential - 05/25/18 05:33</th> </tr> <tr> <td> Blood leukocytes automated count (number/volume)</td> <td>9.0 10*3/uL</ td> <td>4.3-11.0</td> </tr> <tr> <td>Blood erythrocytes automated count (number/volume)</td> <td>3.20 10*6/uL</td > <td>4.35-5.85</td> </tr> <tr> <td>Venous blood hemoglobin measurement (mass/volume)</td> <td>7.0 g/dL</td> <td>11.5-16.0</td> </tr> <tr> <td>Blood hematocrit ( volume fraction)</td> <td>23 %</td> <td>35-52</td> </tr> <tr> <td>Automated erythrocyte mean corpuscular volume</td > <td>73 [foz_us]</td> <td>80-99</td> </tr> <tr > <td>Automated erythrocyte mean corpuscular hemoglobin (mass per erythrocyte)</td> <td>22 pg</td> <td>25-34</td> </tr> <tr> <td>Automated erythrocyte mean corpuscular hemoglobin concentration measurement (mass/volume)</td> <td>30 g/dL</td> <td>32-36</td> </tr> <tr> <td>Automated erythrocyte distribution width ratio</td> <td>20.6 %</td> <td>10.0- 14.5</td> </tr> <tr> <td>Automated blood platelet count ( count/volume)</td> <td>215 10*3/uL</td> <td>130-400</td> </tr> <tr> <td>Automated blood platelet mean volume measurement</td> <td>11.1 [foz_us]</td> <td>7.4-10.4</td> </tr> <tr> <td>Automated blood neutrophils/100 leukocytes</ td> <td>78 %</td> <td>42-75</td> </tr> <tr> <td>Automated blood lymphocytes/100 leukocytes</td> <td>11 &# 37;</td> <td>12-44</td> </tr> <tr> <td>Blood monocytes/100 leukocytes</td> <td>11 %</td> <td>0-12</td> </tr> <tr> <td>Automated blood eosinophils/100 leukocytes</td> <td>1 %</td> <td>0-10</td> </tr> <tr> <td>Automated blood basophils/100 leukocytes</td> < td>0 %</td> <td>0-10</td> </tr> <tr> <td> Blood neutrophils automated count (number/volume)</td> <td>7.0 10*3</td > <td>1.8-7.8</td> </tr> <tr> <td>Blood lymphocytes automated count (number/volume)</td> <td>1.0 10*3</td> <td>1.0-4.0</td> </tr> <tr> <td>Blood monocytes automated count (number/volume)</td> <td>1.0 10*3</td> <td>0.0 -1.0</td> </tr> <tr> <td>Automated eosinophil count</td> <td>0.1 10*3/uL</td> <td>0.0-0.3</td> </tr> <tr > <td>Automated blood basophil count (count/volume)</td> <td> 0.0 10*3/uL</td> <td>0.0-0.1</td> </tr> <tr> < th colspan="10">Serum iron and total iron binding capacity panel - 05/25/18 05: 33</th> </tr> <tr> <td>Serum or plasma iron measurement ( mass/volume)</td> <td>< %</td> <td>35-180</td> < /tr> <tr> <td>Total iron binding capacity and transferrin saturation measurement</td> <td>< %</td> <td>15-50</td > </tr> <tr> <td>Iron binding capacity [mass/volume] in serum or plasma</td> <td>< %</td> <td>280-380</td> </tr> <tr> <td>UIBC (unsaturated iron binding capacity)</td > <td>370 %</td> <td>55-450</td> </tr> <tr> <td>Serum or plasma ferritin measurement (mass/volume)</td> < td>63.2 %</td> <td>20.0-177.0</td> </tr> <tr> <th colspan="10">Whole blood basic metabolic panel - 05/25/18 05:53</th> </tr> <tr> <td>Serum or plasma sodium measurement (moles/ volume)</td> <td>139 mmol/L</td> <td>135-145</td> </tr > <tr> <td>Serum or plasma potassium measurement (moles/volume)< /td> <td>3.6 mmol/L</td> <td>3.6-5.0</td> </tr> <tr> <td>Serum or plasma chloride measurement (moles/volume)</td> <td>109 mmol/L</td> <td>98-107</td> </tr> <tr> <td>Carbon dioxide</td> <td>21 mmol/L</td> <td>21-32</td > </tr> <tr> <td>Serum or plasma anion gap determination (moles/volume)</td> <td>9 mmol/L</td> <td>5-14</td> </ tr> <tr> <td>Serum or plasma urea nitrogen measurement (mass/ volume)</td> <td>18 mg/dL</td> <td>7-18</td> </tr> <tr> <td>Serum or plasma creatinine measurement (mass/volume)</td> <td>0.75 mg/dL</td> <td>0.60-1.30</td> </tr> < tr> <td>Serum or plasma urea nitrogen/creatinine mass ratio</td> <td>24 </td> <td>NRG</td> </tr> <tr> <td> Serum or plasma creatinine measurement with calculation of estimated glomerular filtration rate</td> <td>> </td> <td>NRG</td> </tr> <tr> <td>Serum or plasma glucose measurement (mass/volume)</td > <td>92 mg/dL</td> <td>70-105</td> </tr> <tr> <td>Serum or plasma calcium measurement (mass/volume)</td> <td >8.3 mg/dL</td> <td>8.5-10.1</td> </tr> </tbody> </table > </text> <entry> <organizer moodCode="EVN" classCode="BATTERY"> < templateId root="[id number]" /> <id nullFlavor="NA" /> <code codeSystem="local" code="UA" displayName="URINALYSIS, ROUTINE" /> <statusCode code="completed" /> <component> <observation moodCode="EVN" classCode="OBS"> <templateId root= "06.27.840.1.484848.10.20.22.4.2" /> <id nullFlavor="NA" /> < code codeSystem="local" code="LEUESU" displayName="UA LEUKOCYTE ESTERASE DIPSTICK" /> <statusCode code="completed" /> <effectiveTime value="[id number]" /> <value unit="" xsi:type="PQ" value="2+" /> <interpretationCode codeSystem="local" code="*" /> < referenceRange> <observationRange> <text>NEGATIVE</text > </observationRange> </referenceRange> </observation > </component> <component> <observation moodCode="EVN" classCode="OBS"> <templateId root="[id number]..4.2" /> <id nullFlavor="NA" /> <code codeSystem="local" code="NITRIU" displayName="UA NITRITE DIPSTICK" /> <statusCode code="completed" /> <effectiveTime value="798040025343" /> <value unit="" xsi:type= "PQ" value="POSITIVE" /> <interpretationCode codeSystem="local" code="* " /> <referenceRange> <observationRange> <text> NEGATIVE</text> </observationRange> </referenceRange> </observation> </component> <component> <observation moodCode ="EVN" classCode="OBS"> <templateId root= "[id number]2.4.2" /> <id nullFlavor="NA" /> < code codeSystem="local" code="PROTEIU" displayName="UA PROTEIN DIPSTICK" /> <statusCode code="completed" /> <effectiveTime value= "" /> <value unit="" xsi:type="PQ" value="1+" /> < interpretationCode codeSystem="local" code="*" /> <referenceRange> <observationRange> <text>NEGATIVE</text> </ observationRange> </referenceRange> </observation> </ component> <component> <observation moodCode="EVN" classCode="OBS"> <templateId root="06.27.840.1.596031.10...4.2" /> <id nullFlavor="NA" /> <code codeSystem="local" code="DGLUU" displayName= "UA GLUCOSE DIPSTICK" /> <statusCode code="completed" /> < effectiveTime value="" /> <value unit="" xsi:type="PQ" value="NEGATIVE" /> <referenceRange> <observationRange> <text>NEGATIVE</text> </observationRange> </ referenceRange> </observation> </component> <component> <observation moodCode="EVN" classCode="OBS"> <templateId root= "16.840.1.493008.10.20.22.4.2" /> <id nullFlavor="NA" /> < code codeSystem="local" code="KETONU" displayName="UA KETONE DIPSTICK" /> <statusCode code="completed" /> <effectiveTime value="518268576221 " /> <value unit="" xsi:type="PQ" value="NEGATIVE" /> < referenceRange> <observationRange> <text>NEGATIVE</text > </observationRange> </referenceRange> </observation > </component> <component> <observation moodCode="EVN" classCode="OBS"> <templateId root="06.27.840.1.326173.02.28.22.4.2" /> <id nullFlavor="NA" /> <code codeSystem="local" code="UROBILU " displayName="UA UROBILINOGEN DIPSTICK" /> <statusCode code="completed " /> <effectiveTime value="" /> <value unit="" xsi :type="PQ" value="NORMAL" /> <referenceRange> < observationRange> <text>NORMAL</text> </observationRange > </referenceRange> </observation> </component> < component> <observation moodCode="EVN" classCode="OBS"> < templateId root="216.840.1.773030.02.28.22.4.2" /> <id nullFlavor="NA " /> <code codeSystem="local" code="BILU" displayName="UA BILIRUBIN DIPSTICK" /> <statusCode code="completed" /> <effectiveTime value="" /> <value unit="" xsi:type="PQ" value="NEGATIVE" / > <referenceRange> <observationRange> <text> NEGATIVE</text> </observationRange> </referenceRange> </observation> </component> <component> <observation moodCode ="EVN" classCode="OBS"> <templateId root= "216.840.1.166890.02.28.22.4.2" /> <id nullFlavor="NA" /> < code codeSystem="local" code="NOLVIA" displayName="UA BLOOD DIPSTICK" /> < statusCode code="completed" /> <effectiveTime value="" /> <value unit="" xsi:type="PQ" value="TRACE" /> < interpretationCode codeSystem="local" code="*" /> <referenceRange> <observationRange> <text>NEGATIVE</text> </ observationRange> </referenceRange> </observation> </ component> <component> <observation moodCode="EVN" classCode="OBS"> <templateId root="216.840.1.509163.10.22.4.2" /> <id nullFlavor="NA" /> <code codeSystem="local" code="SPGRU" displayName= "UA SPECIFIC GRAVITY" /> <statusCode code="completed" /> < effectiveTime value="530481143299" /> <value unit="" xsi:type="PQ" value="1.015" /> <referenceRange> <observationRange> <text>1.015-1.025</text> </observationRange> </ referenceRange> </observation> </component> <component> <observation moodCode="EVN" classCode="OBS"> <templateId root= "16.840.1.091410...4.2" /> <id nullFlavor="NA" /> < code codeSystem="local" code="DIETER" displayName="UR PH" /> <statusCode code="completed" /> <effectiveTime value="142508657417" /> < value unit="" xsi:type="PQ" value="6.0" /> <referenceRange> <observationRange> <text>5.0-7.0</text> </ observationRange> </referenceRange> </observation> </ component> <component> <observation moodCode="EVN" classCode="OBS"> <templateId root="16.840.1.209417.10..22.4.2" /> <id nullFlavor="NA" /> <code codeSystem="local" code="MB" displayName= "Microbiology" /> <statusCode code="completed" /> < effectiveTime value="254955712433" /> <value unit="" xsi:type="PQ" value="" /> <referenceRange> <observationRange> <text /> </observationRange> </referenceRange> </ observation> </component> </organizer> </entry> <entry> <organizer moodCode="EVN" classCode="BATTERY"> <templateId root= "216.840.1.364501.10..22.4.1" /> <id nullFlavor="NA" /> <code codeSystem="local" code="UAMICRO" displayName="UA MICROSCOPIC" /> < statusCode code="completed" /> <component> <observation moodCode= "EVN" classCode="OBS"> <templateId root="216.840.1.098311.10...4.2 " /> <id nullFlavor="NA" /> <code codeSystem="local" code= "EPIU" displayName="UA EPITHELIAL CELLS" /> <statusCode code="completed " /> <effectiveTime value="641366390833" /> <value unit="epi/ hpf" xsi:type="PQ" value="2+" /> <interpretationCode codeSystem="local " code="*" /> <referenceRange> <observationRange> <text>0 - 1+</text> </observationRange> </referenceRange > </observation> </component> <component> <observation moodCode="EVN" classCode="OBS"> <templateId root= "216.840.1.323393...4.2" /> <id nullFlavor="NA" /> < code codeSystem="local" code="RBCU" displayName="UA RBC" /> < statusCode code="completed" /> <effectiveTime value="327568414788" /> <value unit="rbc/hpf" xsi:type="PQ" value="0" /> < referenceRange> <observationRange> <text>0 - 3</text> </observationRange> </referenceRange> </observation> </component> <component> <observation moodCode="EVN" classCode= "OBS"> <templateId root="216.840.1.641299.10..22.4.2" /> < id nullFlavor="NA" /> <code codeSystem="local" code="UAVOL" displayName ="UA VOLUME FOR EXAM" /> <statusCode code="completed" /> < effectiveTime value="" /> <value unit="mL" xsi:type="PQ" value="12.0" /> <referenceRange> <observationRange> <text>(12mL STD)</text> </observationRange> </ referenceRange> </observation> </component> <component> <observation moodCode="EVN" classCode="OBS"> <templateId root= "216.840.1.171678.10..4.2" /> <id nullFlavor="NA" /> < code codeSystem="local" code="WBCU" displayName="UA WBC" /> < statusCode code="completed" /> <effectiveTime value="" /> <value unit="wbc/hpf" xsi:type="PQ" value="20-50" /> < interpretationCode codeSystem="local" code="*" /> <referenceRange> <observationRange> <text>0 - 5</text> </ observationRange> </referenceRange> </observation> </ component> <component> <observation moodCode="EVN" classCode="OBS"> <templateId root="16.840.1.558426.10..22.4.2" /> <id nullFlavor="NA" /> <code codeSystem="local" code="WBCCLUMPS" displayName="WBC CLUMPS" /> <statusCode code="completed" /> < effectiveTime value="" /> <value unit="" xsi:type="PQ" value="PRESENT" /> <interpretationCode codeSystem="local" code="*" /> <referenceRange> <observationRange> <text> NEGATIVE</text> </observationRange> </referenceRange> </observation> </component> </organizer> </entry> <entry> < organizer moodCode="EVN" classCode="BATTERY"> <templateId root= "16.840.1.187336.10..22.4.1" /> <id nullFlavor="NA" /> <code codeSystem="local" code="PREGU" displayName="UR TEST" /> < statusCode code="completed" /> <component> <observation moodCode= "EVN" classCode="OBS"> <templateId root="16.840.1.301001.10...4.2 " /> <id nullFlavor="NA" /> <code codeSystem="local" code= "PREGU" displayName="UR TEST" /> <statusCode code="completed " /> <effectiveTime value="068194726536" /> <value unit="" xsi :type="PQ" value="NEGATIVE" /> <referenceRange> < observationRange> <text>NEGATIVE</text> </ observationRange> </referenceRange> </observation> </ component> <component> <observation moodCode="EVN" classCode="OBS"> <templateId root="[id number]..22.4.2" /> <id nullFlavor="NA" /> <code codeSystem="local" code="MB" displayName= "Microbiology" /> <statusCode code="completed" /> < effectiveTime value="[id number]" /> <value unit="" xsi:type="PQ" value="" /> <referenceRange> <observationRange> <text /> </observationRange> </referenceRange> </ observation> </component> </organizer> </entry> <entry> <organizer moodCode="EVN" classCode="BATTERY"> <templateId root= "[id number]" /> <id nullFlavor="NA" /> <code codeSystem="local" code="PREGU" displayName="UR TEST" /> < statusCode code="completed" /> <component> <observation moodCode= "EVN" classCode="OBS"> <templateId root="[id number] " /> <id nullFlavor="NA" /> <code codeSystem="local" code= "PREGU" displayName="UR TEST" /> <statusCode code="completed " /> <effectiveTime value="[id number]" /> <value xsi:type= "ST" value="<pre><b>UR TEST</b> NEGATIVE</pre>" /> < referenceRange> <observationRange> <text>NEGATIVE</text > </observationRange> </referenceRange> </observation > </component> <component> <observation moodCode="EVN" classCode="OBS"> <templateId root="[id number]..22.4.2" /> <id nullFlavor="NA" /> <code codeSystem="local" code="MB" displayName="Microbiology" /> <statusCode code="completed" /> <effectiveTime value="[id number]" /> <value xsi:type="ST" value="<pre ><b>UR TEST</b> NEGATIVE</pre>" /> <referenceRange> <observationRange> <text /> </observationRange> </referenceRange> </observation> </component> </organizer> </entry> <entry> <organizer moodCode="EVN" classCode="BATTERY"> < templateId root="[id number]..4.1" /> <id nullFlavor="NA" /> <code codeSystem="local" code="UA" displayName="URINALYSIS, ROUTINE" /> <statusCode code="completed" /> <component> <observation moodCode="EVN" classCode="OBS"> <templateId root= "[id number]2.4.2" /> <id nullFlavor="NA" /> < code codeSystem="local" code="LEUESU" displayName="UA LEUKOCYTE ESTERASE DIPSTICK" /> <statusCode code="completed" /> <effectiveTime value="[id number]" /> <value unit="" xsi:type="PQ" value="TRACE" /> <referenceRange> <observationRange> <text> NEGATIVE</text> </observationRange> </referenceRange> </observation> </component> <component> <observation moodCode ="EVN" classCode="OBS"> <templateId root= "[id number]24.2" /> <id nullFlavor="NA" /> < code codeSystem="local" code="NITRIU" displayName="UA NITRITE DIPSTICK" /> <statusCode code="completed" /> <effectiveTime value="213307121244 " /> <value unit="" xsi:type="PQ" value="NEGATIVE" /> < referenceRange> <observationRange> <text>NEGATIVE</text > </observationRange> </referenceRange> </observation > </component> <component> <observation moodCode="EVN" classCode="OBS"> <templateId root="06.27.840.1.749565.02.28.22.4.2" /> <id nullFlavor="NA" /> <code codeSystem="local" code="PROTEIU " displayName="UA PROTEIN DIPSTICK" /> <statusCode code="completed" /> <effectiveTime value="633534711459" /> <value unit="" xsi: type="PQ" value="2+" /> <interpretationCode codeSystem="local" code="* " /> <referenceRange> <observationRange> <text> NEGATIVE</text> </observationRange> </referenceRange> </observation> </component> <component> <observation moodCode ="EVN" classCode="OBS"> <templateId root= "216.840.1.408320.10...4.2" /> <id nullFlavor="NA" /> < code codeSystem="local" code="DGLUU" displayName="UA GLUCOSE DIPSTICK" /> <statusCode code="completed" /> <effectiveTime value="622013506154 " /> <value unit="" xsi:type="PQ" value="NEGATIVE" /> < referenceRange> <observationRange> <text>NEGATIVE</text > </observationRange> </referenceRange> </observation > </component> <component> <observation moodCode="EVN" classCode="OBS"> <templateId root="2.16.840.1.959465.10...4.2" /> <id nullFlavor="NA" /> <code codeSystem="local" code="KETONU" displayName="UA KETONE DIPSTICK" /> <statusCode code="completed" /> <effectiveTime value="752742747388" /> <value unit="" xsi:type= "PQ" value="2+" /> <interpretationCode codeSystem="local" code="*" /> <referenceRange> <observationRange> <text> NEGATIVE</text> </observationRange> </referenceRange> </observation> </component> <component> <observation moodCode ="EVN" classCode="OBS"> <templateId root= "216.840.1.826689.10..4.2" /> <id nullFlavor="NA" /> < code codeSystem="local" code="UROBILU" displayName="UA UROBILINOGEN DIPSTICK" / > <statusCode code="completed" /> <effectiveTime value= "865071673556" /> <value unit="" xsi:type="PQ" value="2+" /> < referenceRange> <observationRange> <text>NORMAL</text> </observationRange> </referenceRange> </observation> </component> <component> <observation moodCode="EVN" classCode ="OBS"> <templateId root="16.840.1.333754...4.2" /> < id nullFlavor="NA" /> <code codeSystem="local" code="BILU" displayName= "UA BILIRUBIN DIPSTICK" /> <statusCode code="completed" /> < effectiveTime value="810801520091" /> <value unit="" xsi:type="PQ" value="1+" /> <interpretationCode codeSystem="local" code="*" /> <referenceRange> <observationRange> <text>NEGATIVE</ text> </observationRange> </referenceRange> </ observation> </component> <component> <observation moodCode= "EVN" classCode="OBS"> <templateId root="16.840.1.188879.10..22.4.2 " /> <id nullFlavor="NA" /> <code codeSystem="local" code="NOLVIA " displayName="UA BLOOD DIPSTICK" /> <statusCode code="completed" /> <effectiveTime value="954038649072" /> <value unit="" xsi:type= "PQ" value="TRACE" /> <interpretationCode codeSystem="local" code="*" / > <referenceRange> <observationRange> <text> NEGATIVE</text> </observationRange> </referenceRange> </observation> </component> <component> <observation moodCode ="EVN" classCode="OBS"> <templateId root= "16.840.1.084319.10.4.2" /> <id nullFlavor="NA" /> < code codeSystem="local" code="SPGRU" displayName="UA SPECIFIC GRAVITY" /> <statusCode code="completed" /> <effectiveTime value="528442888478 " /> <value unit="" xsi:type="PQ" value="1.015" /> < referenceRange> <observationRange> <text>1.015-1.025</ text> </observationRange> </referenceRange> </ observation> </component> <component> <observation moodCode= "EVN" classCode="OBS"> <templateId root="06.27.840.1.580323.02.28.22.4.2 " /> <id nullFlavor="NA" /> <code codeSystem="local" code="DIETER " displayName="UR PH" /> <statusCode code="completed" /> < effectiveTime value="676062422661" /> <value unit="" xsi:type="PQ" value="6.0" /> <referenceRange> <observationRange> <text>5.0-7.0</text> </observationRange> </ referenceRange> </observation> </component> <component> <observation moodCode="EVN" classCode="OBS"> <templateId root= "06.27.840.1.779809.1022.4.2" /> <id nullFlavor="NA" /> < code codeSystem="local" code="MB" displayName="Microbiology" /> < statusCode code="completed" /> <effectiveTime value="613909630537" /> <value unit="" xsi:type="PQ" value="" /> <referenceRange> <observationRange> <text /> </observationRange> </referenceRange> </observation> </component> </ organizer> </entry> <entry> <organizer moodCode="EVN" classCode="BATTERY"> <templateId root="216.840.1.767722.10..22.4.1" /> <id nullFlavor= "NA" /> <code codeSystem="local" code="UAMICRO" displayName="UA MICROSCOPIC " /> <statusCode code="completed" /> <component> <observation moodCode="EVN" classCode="OBS"> <templateId root= "216.840.1.187213...4.2" /> <id nullFlavor="NA" /> < code codeSystem="local" code="BACU" displayName="UA BACTERIA" /> < statusCode code="completed" /> <effectiveTime value="905556951939" /> <value unit="" xsi:type="PQ" value="2+" /> < interpretationCode codeSystem="local" code="*" /> <referenceRange> <observationRange> <text>NEGATIVE</text> </ observationRange> </referenceRange> </observation> </ component> <component> <observation moodCode="EVN" classCode="OBS"> <templateId root="216.840.1.032885.10..4.2" /> <id nullFlavor="NA" /> <code codeSystem="local" code="EPIU" displayName=" UA EPITHELIAL CELLS" /> <statusCode code="completed" /> < effectiveTime value="343961584210" /> <value unit="epi/hpf" xsi:type= "PQ" value="1+" /> <referenceRange> <observationRange> <text>0 - 1+</text> </observationRange> </ referenceRange> </observation> </component> <component> <observation moodCode="EVN" classCode="OBS"> <templateId root= "216.840.1.883137.10..4.2" /> <id nullFlavor="NA" /> < code codeSystem="local" code="MUCUSU" displayName="UA MUCUS" /> < statusCode code="completed" /> <effectiveTime value="640818692339" /> <value unit="" xsi:type="PQ" value="1+" /> <referenceRange> <observationRange> <text>NEG TO 1+</text> </ observationRange> </referenceRange> </observation> </ component> <component> <observation moodCode="EVN" classCode="OBS"> <templateId root="06.27.840.1.179182...4.2" /> <id nullFlavor="NA" /> <code codeSystem="local" code="RBCU" displayName=" UA RBC" /> <statusCode code="completed" /> <effectiveTime value="514364539820" /> <value unit="rbc/hpf" xsi:type="PQ" value="0-3 " /> <referenceRange> <observationRange> <text> 0 - 3</text> </observationRange> </referenceRange> </ observation> </component> <component> <observation moodCode= "EVN" classCode="OBS"> <templateId root="06.27.840.1.007777.10..4.2 " /> <id nullFlavor="NA" /> <code codeSystem="local" code= "UAVOL" displayName="UA VOLUME FOR EXAM" /> <statusCode code="completed " /> <effectiveTime value="170562406127" /> <value unit="mL" xsi:type="PQ" value="12.0" /> <referenceRange> < observationRange> <text>(12mL STD)</text> </ observationRange> </referenceRange> </observation> </ component> <component> <observation moodCode="EVN" classCode="OBS"> <templateId root="06.27.840.1.836251.02.28.22.4.2" /> <id nullFlavor="NA" /> <code codeSystem="local" code="WBCU" displayName=" UA WBC" /> <statusCode code="completed" /> <effectiveTime value="305947920718" /> <value unit="wbc/hpf" xsi:type="PQ" value="10- 20" /> <interpretationCode codeSystem="local" code="*" /> < referenceRange> <observationRange> <text>0 - 5</text> </observationRange> </referenceRange> </observation> </component> </organizer> </entry> <entry> <organizer moodCode="EVN " classCode="BATTERY"> <templateId root="06.27.840.1.269510.02.28.22.4.1" / > <id nullFlavor="NA" /> <code codeSystem="local" code="CBCD" displayName="CBC W/DIFF" /> <statusCode code="completed" /> <component > <observation moodCode="EVN" classCode="OBS"> <templateId root= "06.27.840.1.149244.02.28.22.4.2" /> <id nullFlavor="NA" /> < code codeSystem="local" code="CBCCOM" displayName="COMMENT" /> < statusCode code="completed" /> <effectiveTime value="986502331947" /> <value xsi:type="ST" value="<pre><b>CBC W/DIFF</b> 6.64.729.932.067.821.030.922.6046821824..4NOTEDREVIEWED</pre>" /> <referenceRange> <observationRange> <text /> </observationRange> </referenceRange> </observation> </ component> <component> <observation moodCode="EVN" classCode="OBS"> <templateId root="2.16.840.1.506071.10.20.22.4.2" /> <id nullFlavor="NA" /> <code codeSystem="local" code="GR#" displayName= "GRANULOCYTE #" /> <statusCode code="completed" /> < effectiveTime value="789172543632" /> <value xsi:type="ST" value="<pre> <b>CBC W/DIFF</b> 6729.932.067.821.030.922.5599897750..4NOTEDREVIEWED</ pre>" /> <referenceRange> <observationRange> < text>2.0-9.0</text> </observationRange> </referenceRange> </observation> </component> <component> <observation moodCode="EVN" classCode="OBS"> <templateId root= "16.840.1.961802.10..22.4.2" /> <id nullFlavor="NA" /> < code codeSystem="local" code="GR%" displayName="GRANULOCYTE %" /> <statusCode code="completed" /> <effectiveTime value="254928344980 " /> <value xsi:type="ST" value="<pre><b>CBC W/DIFF</b> 6.64.729.932.067.821.030.922.4204665637.30.90.4NOTEDREVIEWED</pre>" /> <interpretationCode codeSystem="local" code="*" /> <referenceRange> <observationRange> <text>50-75</text> </ observationRange> </referenceRange> </observation> </ component> <component> <observation moodCode="EVN" classCode="OBS"> <templateId root="2.16.840.1.286186.10...4.2" /> <id nullFlavor="NA" /> <code codeSystem="local" code="LY#" displayName= "LYMPHOCYTE #" /> <statusCode code="completed" /> < effectiveTime value="117975601634" /> <value xsi:type="ST" value="<pre> <b>CBC W/DIFF</b> 664.729.932.067.821.030.922.2429672618.90.4NOTEDREVIEWED</ pre>" /> <interpretationCode codeSystem="local" code="*" /> < referenceRange> <observationRange> <text>1.0-4.0</text> </observationRange> </referenceRange> </observation > </component> <component> <observation moodCode="EVN" classCode="OBS"> <templateId root="2.16.840.1.906175.10...4.2" /> <id nullFlavor="NA" /> <code codeSystem="local" code="LY% " displayName="LYMPHOCYTE %" /> <statusCode code="completed" /> <effectiveTime value="065348783534" /> <value xsi:type="ST" value="<pre><b>CBC W/DIFF</b> 6.729.932.067.821.030.922.2888390003.4NOTEDREVIEWED</pre>" /> <interpretationCode codeSystem="local" code="*" /> <referenceRange> <observationRange> <text>20-30</text> </ observationRange> </referenceRange> </observation> </ component> <component> <observation moodCode="EVN" classCode="OBS"> <templateId root="2.16.840.1.162875.10..4.2" /> <id nullFlavor="NA" /> <code codeSystem="local" code="MCH" displayName= "MEAN CELL HGB" /> <statusCode code="completed" /> < effectiveTime value="577680994915" /> <value xsi:type="ST" value="<pre> <b>CBC W/DIFF</b> 6.729.932.067.821.030.922.0009344512.4NOTEDREVIEWED</ pre>" /> <interpretationCode codeSystem="local" code="*" /> < referenceRange> <observationRange> <text>27.0-33.0</text > </observationRange> </referenceRange> </observation > </component> <component> <observation moodCode="EVN" classCode="OBS"> <templateId root="2.16.840.1.234228.10..4.2" /> <id nullFlavor="NA" /> <code codeSystem="local" code="MCHC" displayName="MEAN CELL HGB CONCENTRATION" /> <statusCode code= "completed" /> <effectiveTime value="734423870423" /> <value xsi:type="ST" value="<pre><b>CBC W/DIFF</b> 6..729.932.067.821.030.922.8294225697.4NOTEDREVIEWED</pre>" /> <interpretationCode codeSystem="local" code="*" /> <referenceRange> <observationRange> <text>32.0-37.0</text> </ observationRange> </referenceRange> </observation> </ component> <component> <observation moodCode="EVN" classCode="OBS"> <templateId root="2.16.840.1.077089.10..4.2" /> <id nullFlavor="NA" /> <code codeSystem="local" code="MCV" displayName= "MEAN CELL VOLUME" /> <statusCode code="completed" /> < effectiveTime value="557639544230" /> <value xsi:type="ST" value="<pre> <b>CBC W/DIFF</b> 6.729.932.067.821.030.922.7732970226.30.90.4NOTEDREVIEWED</ pre>" /> <interpretationCode codeSystem="local" code="*" /> < referenceRange> <observationRange> <text>80.0-100.0</ text> </observationRange> </referenceRange> </ observation> </component> <component> <observation moodCode= "EVN" classCode="OBS"> <templateId root="2.16.840.1.012235.10..4.2 " /> <id nullFlavor="NA" /> <code codeSystem="local" code="MO# " displayName="MONOCYTE #" /> <statusCode code="completed" /> <effectiveTime value="984895432185" /> <value xsi:type="ST" value="<pre ><b>CBC W/DIFF</b> 6.64729.932.067.821.030.922.2840783978.4NOTEDREVIEWED< /pre>" /> <referenceRange> <observationRange> < text>0.1-1.0</text> </observationRange> </referenceRange> </observation> </component> <component> <observation moodCode="EVN" classCode="OBS"> <templateId root= "2.16.840.1.474680.10..22.4.2" /> <id nullFlavor="NA" /> < code codeSystem="local" code="MO%" displayName="MONOCYTE %" /> <statusCode code="completed" /> <effectiveTime value="039140146104" /> <value xsi:type="ST" value="<pre><b>CBC W/DIFF</b> 6.64.729.932.067.821.030.922.3215812805..4NOTEDREVIEWED</pre>" /> <referenceRange> <observationRange> <text>4-6</text> </observationRange> </referenceRange> </observation> </component> <component> <observation moodCode="EVN" classCode= "OBS"> <templateId root="2.16.840.1.322210.10.20.22.4.2" /> < id nullFlavor="NA" /> <code codeSystem="local" code="OVAL" displayName= "OVALOCYTES" /> <statusCode code="completed" /> < effectiveTime value="510605094884" /> <value xsi:type="ST" value="<pre> <b>CBC W/DIFF</b> 6.64.729.932.067.821.030.922.6629622935.90.4NOTEDREVIEWED</ pre>" /> <referenceRange> <observationRange> < text /> </observationRange> </referenceRange> </ observation> </component> <component> <observation moodCode= "EVN" classCode="OBS"> <templateId root="2.16.840.1.597521.10..22.4.2 " /> <id nullFlavor="NA" /> <code codeSystem="local" code="RBC " displayName="RED BLOOD CELL" /> <statusCode code="completed" /> <effectiveTime value="424877366427" /> <value xsi:type="ST" value= "<pre><b>CBC W/DIFF</b> 6.64.729.932.067.821.030.922.4562487728..4NOTEDREVIEWED</pre>" /> <referenceRange> <observationRange> <text>4.00-6.00</ text> </observationRange> </referenceRange> </ observation> </component> <component> <observation moodCode= "EVN" classCode="OBS"> <templateId root="216.840.1.194260.10..22.4.2 " /> <id nullFlavor="NA" /> <code codeSystem="local" code="RDW " displayName="RED CELL DISTRIBUTION WIDTH" /> <statusCode code= "completed" /> <effectiveTime value="822641167798" /> <value xsi:type="ST" value="<pre><b>CBC W/DIFF</b> 6.64.729.932.067.821.030.922.0517202189..4NOTEDREVIEWED</pre>" /> <interpretationCode codeSystem="local" code="*" /> <referenceRange> <observationRange> <text>11.0-15.6</text> </ observationRange> </referenceRange> </observation> </ component> <component> <observation moodCode="EVN" classCode="OBS"> <templateId root="216.840.1.843529.10..22.4.2" /> <id nullFlavor="NA" /> <code codeSystem="local" code="WBC" displayName= "WHITE BLOOD CELL" /> <statusCode code="completed" /> < effectiveTime value="084703274383" /> <value xsi:type="ST" value="<pre> <b>CBC W/DIFF</b> 6.64.729.932.067.821.030.922.5277427653.4NOTEDREVIEWED</ pre>" /> <referenceRange> <observationRange> < text>5.0-10.0</text> </observationRange> </referenceRange> </observation> </component> <component> <observation moodCode="EVN" classCode="OBS"> <templateId root= "216.840.1.575974.10...4.2" /> <id nullFlavor="NA" /> < code codeSystem="local" code="HGBT" displayName="HEMOGLOBIN" /> < statusCode code="completed" /> <effectiveTime value="073229439278" /> <value xsi:type="ST" value="<pre><b>CBC W/DIFF</b> 6.64.729.932.067.821.030.922.1177623834.4NOTEDREVIEWED</pre>" /> <interpretationCode codeSystem="local" code="*" /> <referenceRange> <observationRange> <text>12.0-16.0</text> </ observationRange> </referenceRange> </observation> </ component> <component> <observation moodCode="EVN" classCode="OBS"> <templateId root="216.840.1.254058.10..22.4.2" /> <id nullFlavor="NA" /> <code codeSystem="local" code="HCTT" displayName= "HEMATOCRIT" /> <statusCode code="completed" /> < effectiveTime value="814621312655" /> <value xsi:type="ST" value="<pre> <b>CBC W/DIFF</b> 6.64.729.932.067.821.030.922.5952018268..4NOTEDREVIEWED</ pre>" /> <interpretationCode codeSystem="local" code="*" /> < referenceRange> <observationRange> <text>37.0-47.0</text > </observationRange> </referenceRange> </observation > </component> <component> <observation moodCode="EVN" classCode="OBS"> <templateId root="2.16.840.1.597919.10..22.4.2" /> <id nullFlavor="NA" /> <code codeSystem="local" code="PLT" displayName="PLATELET COUNT" /> <statusCode code="completed" /> <effectiveTime value="533995675880" /> <value xsi:type="ST" value="< pre><b>CBC W/DIFF</b> 6.64.729.932.067.821.030.922.8581272495..4NOTEDREVIEWED</pre>" /> <referenceRange> <observationRange> <text>150-450</text > </observationRange> </referenceRange> </observation > </component> <component> <observation moodCode="EVN" classCode="OBS"> <templateId root="216.840.1.043610.10..22.4.2" /> <id nullFlavor="NA" /> <code codeSystem="local" code="MB" displayName="Microbiology" /> <statusCode code="completed" /> <effectiveTime value="695437070822" /> <value xsi:type="ST" value="<pre ><b>CBC W/DIFF</b> 6.64.729.932.067.821.030.922.9978657989.30.90.4NOTEDREVIEWED< /pre>" /> <referenceRange> <observationRange> < text /> </observationRange> </referenceRange> </ observation> </component> </organizer> </entry> <entry> <organizer moodCode="EVN" classCode="BATTERY"> <templateId root= "216.840.1.512710.10.20.22.4.1" /> <id nullFlavor="NA" /> <code codeSystem="local" code="METAB" displayName="METABOLIC PANEL, BASIC" /> < statusCode code="completed" /> <component> <observation moodCode= "EVN" classCode="OBS"> <templateId root="16.840.1.115957.10.20.22.4.2 " /> <id nullFlavor="NA" /> <code codeSystem="local" code="K" displayName="POTASSIUM" /> <statusCode code="completed" /> < effectiveTime value="315122896407" /> <value xsi:type="ST" value="<pre> <b>METABOLIC PANEL, BASIC</b> 1362.364213958398.8> 60> 609.5</pre>" /> <interpretationCode codeSystem="local" code="*" /> <referenceRange> <observationRange> <text>3.5-5.3</text> </ observationRange> </referenceRange> </observation> </ component> <component> <observation moodCode="EVN" classCode="OBS"> <templateId root="16.840.1.321586.10.20.22.4.2" /> <id nullFlavor="NA" /> <code codeSystem="local" code="eGFR" displayName= "EST GFR (MDRD)" /> <statusCode code="completed" /> < effectiveTime value="439921421129" /> <value xsi:type="ST" value="<pre> <b>METABOLIC PANEL, BASIC</b> 1362.157071074281.8> 60> 609.5</pre>" /> <referenceRange> <observationRange> <text>> 59</text > </observationRange> </referenceRange> </observation > </component> <component> <observation moodCode="EVN" classCode="OBS"> <templateId root="2.16.840.1.312698.10..22.4.2" /> <id nullFlavor="NA" /> <code codeSystem="local" code="GAP" displayName="ANION GAP" /> <statusCode code="completed" /> < effectiveTime value="990616366896" /> <value xsi:type="ST" value="<pre> <b>METABOLIC PANEL, BASIC</b> 1362.606821829863.8> 60> 609.5</pre>" /> <referenceRange> <observationRange> <text>5-15</text> </observationRange> </referenceRange> </observation> </component> <component> <observation moodCode="EVN" classCode= "OBS"> <templateId root="2.16.840.1.834118.10..22.4.2" /> < id nullFlavor="NA" /> <code codeSystem="local" code="eCrCl" displayName ="EST CrCl (CG)" /> <statusCode code="completed" /> < effectiveTime value="981039099908" /> <value xsi:type="ST" value="<pre> <b>METABOLIC PANEL, BASIC</b> 1362.679298260853.8> 60> 609.5</pre>" /> <referenceRange> <observationRange> <text>> 59</text > </observationRange> </referenceRange> </observation > </component> <component> <observation moodCode="EVN" classCode="OBS"> <templateId root="2.16.840.1.271850.10..22.4.2" /> <id nullFlavor="NA" /> <code codeSystem="local" code="GLU" displayName="GLUCOSE" /> <statusCode code="completed" /> < effectiveTime value="438129579599" /> <value xsi:type="ST" value="<pre> <b>METABOLIC PANEL, BASIC</b> 1362.085219357990.8> 60> 609.5</pre>" /> <referenceRange> <observationRange> <text>70-99</text> </observationRange> </referenceRange> </observation> </component> <component> <observation moodCode="EVN" classCode ="OBS"> <templateId root="216.840.1.401010.10...4.2" /> < id nullFlavor="NA" /> <code codeSystem="local" code="CA" displayName= "CALCIUM" /> <statusCode code="completed" /> <effectiveTime value="682156772372" /> <value xsi:type="ST" value="<pre><b>METABOLIC PANEL, BASIC</b> 1362.343519120377.8> 60> 609.5</pre>" /> < referenceRange> <observationRange> <text>8.5-10.1</text > </observationRange> </referenceRange> </observation > </component> <component> <observation moodCode="EVN" classCode="OBS"> <templateId root="2.16.840.1.230022.10..22.4.2" /> <id nullFlavor="NA" /> <code codeSystem="local" code="BUN" displayName="BLOOD UREA NITROGEN" /> <statusCode code="completed" /> <effectiveTime value="188247489861" /> <value xsi:type="ST" value="<pre><b>METABOLIC PANEL, BASIC</b> 1362.071897765115.8> 60> 609.5</pre>" /> <referenceRange> <observationRange> <text>7- 20</text> </observationRange> </referenceRange> </ observation> </component> <component> <observation moodCode= "EVN" classCode="OBS"> <templateId root="16.840.1.327063...4.2 " /> <id nullFlavor="NA" /> <code codeSystem="local" code= "CREAT" displayName="CREATININE" /> <statusCode code="completed" /> <effectiveTime value="901552984121" /> <value xsi:type="ST" value="<pre><b>METABOLIC PANEL, BASIC</b> 1362.371984936564.8> 60> 609.5</pre>" /> <referenceRange> <observationRange> <text> 0.6-1.0</text> </observationRange> </referenceRange> </observation> </component> <component> <observation moodCode= "EVN" classCode="OBS"> <templateId root="16.840.1.594100.10..22.4.2 " /> <id nullFlavor="NA" /> <code codeSystem="local" code="NA " displayName="SODIUM" /> <statusCode code="completed" /> < effectiveTime value="101188189301" /> <value xsi:type="ST" value="<pre> <b>METABOLIC PANEL, BASIC</b> 1362.872457888751.8> 60> 609.5</pre>" /> <referenceRange> <observationRange> <text>135-148</text > </observationRange> </referenceRange> </observation > </component> <component> <observation moodCode="EVN" classCode="OBS"> <templateId root="2.16.840.1.271094.10.20.22.4.2" /> <id nullFlavor="NA" /> <code codeSystem="local" code="CL" displayName="CHLORIDE" /> <statusCode code="completed" /> < effectiveTime value="024870977360" /> <value xsi:type="ST" value="<pre> <b>METABOLIC PANEL, BASIC</b> 1362.754319854937.8> 60> 609.5</pre>" /> <interpretationCode codeSystem="local" code="*" /> <referenceRange> <observationRange> <text>98-110</text> </ observationRange> </referenceRange> </observation> </ component> <component> <observation moodCode="EVN" classCode="OBS"> <templateId root="2.16.840.1.308896.10.20.22.4.2" /> <id nullFlavor="NA" /> <code codeSystem="local" code="CO2" displayName= "CARBON DIOXIDE" /> <statusCode code="completed" /> < effectiveTime value="[id number]" /> <value xsi:type="ST" value="<pre> <b>METABOLIC PANEL, BASIC</b> [id number]> 60> 609.5</pre>" /> <referenceRange> <observationRange> <text>21-32</text> </observationRange> </referenceRange> </observation> </component> <component> <observation moodCode="EVN" classCode ="OBS"> <templateId root="[id number]..22.4.2" /> < id nullFlavor="NA" /> <code codeSystem="local" code="MB" displayName= "Microbiology" /> <statusCode code="completed" /> < effectiveTime value="[id number]" /> <value xsi:type="ST" value="<pre> <b>METABOLIC PANEL, BASIC</b> 1362.821495731738.8> 60> 609.5</pre>" /> <referenceRange> <observationRange> <text /> </observationRange> </referenceRange> </observation> </ component> </organizer> </entry> <entry> <organizer moodCode="EVN" classCode="BATTERY"> <templateId root="[id number]..22.4.1" /> <id nullFlavor="NA" /> <code codeSystem="local" code="UA" displayName= "URINALYSIS, ROUTINE" /> <statusCode code="completed" /> <component> <observation moodCode="EVN" classCode="OBS"> <templateId root= "2.16.840.1.171156.10.20.22.4.2" /> <id nullFlavor="NA" /> < code codeSystem="local" code="LEUESU" displayName="UA LEUKOCYTE ESTERASE DIPSTICK" /> <statusCode code="completed" /> <effectiveTime value="235324662706" /> <value unit="" xsi:type="PQ" value="NEGATIVE" / > <referenceRange> <observationRange> <text> NEGATIVE</text> </observationRange> </referenceRange> </observation> </component> <component> <observation moodCode ="EVN" classCode="OBS"> <templateId root= "216.840.1.225995.10.22.4.2" /> <id nullFlavor="NA" /> < code codeSystem="local" code="NITRIU" displayName="UA NITRITE DIPSTICK" /> <statusCode code="completed" /> <effectiveTime value="738588455371 " /> <value unit="" xsi:type="PQ" value="NEGATIVE" /> < referenceRange> <observationRange> <text>NEGATIVE</text > </observationRange> </referenceRange> </observation > </component> <component> <observation moodCode="EVN" classCode="OBS"> <templateId root="216.840.1.162999.10..4.2" /> <id nullFlavor="NA" /> <code codeSystem="local" code="PROTEIU " displayName="UA PROTEIN DIPSTICK" /> <statusCode code="completed" /> <effectiveTime value="168847303042" /> <value unit="" xsi: type="PQ" value="NEGATIVE" /> <referenceRange> < observationRange> <text>NEGATIVE</text> </ observationRange> </referenceRange> </observation> </ component> <component> <observation moodCode="EVN" classCode="OBS"> <templateId root="16.840.1.435413...4.2" /> <id nullFlavor="NA" /> <code codeSystem="local" code="DGLUU" displayName= "UA GLUCOSE DIPSTICK" /> <statusCode code="completed" /> < effectiveTime value="665074701105" /> <value unit="" xsi:type="PQ" value="NEGATIVE" /> <referenceRange> <observationRange> <text>NEGATIVE</text> </observationRange> </ referenceRange> </observation> </component> <component> <observation moodCode="EVN" classCode="OBS"> <templateId root= "216.840.1.075797.10.22.4.2" /> <id nullFlavor="NA" /> < code codeSystem="local" code="KETONU" displayName="UA KETONE DIPSTICK" /> <statusCode code="completed" /> <effectiveTime value="034541025428 " /> <value unit="" xsi:type="PQ" value="2+" /> < interpretationCode codeSystem="local" code="*" /> <referenceRange> <observationRange> <text>NEGATIVE</text> </ observationRange> </referenceRange> </observation> </ component> <component> <observation moodCode="EVN" classCode="OBS"> <templateId root="06.27.840.1.936707.02.28.22.4.2" /> <id nullFlavor="NA" /> <code codeSystem="local" code="UROBILU" displayName= "UA UROBILINOGEN DIPSTICK" /> <statusCode code="completed" /> <effectiveTime value="453523575212" /> <value unit="" xsi:type="PQ" value="NORMAL" /> <referenceRange> <observationRange> <text>NORMAL</text> </observationRange> </ referenceRange> </observation> </component> <component> <observation moodCode="EVN" classCode="OBS"> <templateId root= "216.840.1.998356.10..22.4.2" /> <id nullFlavor="NA" /> < code codeSystem="local" code="BILU" displayName="UA BILIRUBIN DIPSTICK" /> <statusCode code="completed" /> <effectiveTime value="418998931728 " /> <value unit="" xsi:type="PQ" value="1+" /> < interpretationCode codeSystem="local" code="*" /> <referenceRange> <observationRange> <text>NEGATIVE</text> </ observationRange> </referenceRange> </observation> </ component> <component> <observation moodCode="EVN" classCode="OBS"> <templateId root="216.840.1.315494.1022.4.2" /> <id nullFlavor="NA" /> <code codeSystem="local" code="NOLVIA" displayName="UA BLOOD DIPSTICK" /> <statusCode code="completed" /> < effectiveTime value="563926146531" /> <value unit="" xsi:type="PQ" value="TRACE" /> <interpretationCode codeSystem="local" code="*" /> <referenceRange> <observationRange> <text> NEGATIVE</text> </observationRange> </referenceRange> </observation> </component> <component> <observation moodCode ="EVN" classCode="OBS"> <templateId root= "06.27.840.1.006403.02.28.22.4.2" /> <id nullFlavor="NA" /> < code codeSystem="local" code="SPGRU" displayName="UA SPECIFIC GRAVITY" /> <statusCode code="completed" /> <effectiveTime value="778356062082 " /> <value unit="" xsi:type="PQ" value="1.015" /> < referenceRange> <observationRange> <text>1.015-1.025</ text> </observationRange> </referenceRange> </ observation> </component> <component> <observation moodCode= "EVN" classCode="OBS"> <templateId root="16.840.1.183653..2022.4.2 " /> <id nullFlavor="NA" /> <code codeSystem="local" code="DIETER " displayName="UR PH" /> <statusCode code="completed" /> < effectiveTime value="213691727569" /> <value unit="" xsi:type="PQ" value="6.0" /> <referenceRange> <observationRange> <text>5.0-7.0</text> </observationRange> </ referenceRange> </observation> </component> <component> <observation moodCode="EVN" classCode="OBS"> <templateId root= "840.1.139536.10..4.2" /> <id nullFlavor="NA" /> < code codeSystem="local" code="MB" displayName="Microbiology" /> < statusCode code="completed" /> <effectiveTime value="052376956304" /> <value unit="" xsi:type="PQ" value="" /> <referenceRange> <observationRange> <text /> </observationRange> </referenceRange> </observation> </component> </ organizer> </entry> <entry> <organizer moodCode="EVN" classCode="BATTERY"> <templateId root="06.27.840.1.023968.02.28.22.4.1" /> <id nullFlavor= "NA" /> <code codeSystem="local" code="UAMICRO" displayName="UA MICROSCOPIC " /> <statusCode code="completed" /> <component> <observation moodCode="EVN" classCode="OBS"> <templateId root= "06.27.840.1.093352.02.28.22.4.2" /> <id nullFlavor="NA" /> < code codeSystem="local" code="BACU" displayName="UA BACTERIA" /> < statusCode code="completed" /> <effectiveTime value="038494809269" /> <value unit="" xsi:type="PQ" value="2+" /> < interpretationCode codeSystem="local" code="*" /> <referenceRange> <observationRange> <text>NEGATIVE</text> </ observationRange> </referenceRange> </observation> </ component> <component> <observation moodCode="EVN" classCode="OBS"> <templateId root="16.840.1.860458.02.28.22.4.2" /> <id nullFlavor="NA" /> <code codeSystem="local" code="EPIU" displayName=" UA EPITHELIAL CELLS" /> <statusCode code="completed" /> < effectiveTime value="934480672527" /> <value unit="epi/hpf" xsi:type= "PQ" value="2+" /> <interpretationCode codeSystem="local" code="*" /> <referenceRange> <observationRange> <text>0 - 1 +</text> </observationRange> </referenceRange> </ observation> </component> <component> <observation moodCode= "EVN" classCode="OBS"> <templateId root="16.840.1.165845.02.28.22.4.2 " /> <id nullFlavor="NA" /> <code codeSystem="local" code= "MUCUSU" displayName="UA MUCUS" /> <statusCode code="completed" /> <effectiveTime value="505784970593" /> <value unit="" xsi:type= "PQ" value="3+" /> <interpretationCode codeSystem="local" code="*" /> <referenceRange> <observationRange> <text>NEG TO 1+</text> </observationRange> </referenceRange> </ observation> </component> <component> <observation moodCode= "EVN" classCode="OBS"> <templateId root="16.840.1.765010.22.4.2 " /> <id nullFlavor="NA" /> <code codeSystem="local" code= "RBCU" displayName="UA RBC" /> <statusCode code="completed" /> <effectiveTime value="679197511623" /> <value unit="rbc/hpf" xsi:type ="PQ" value="0-3" /> <referenceRange> <observationRange> <text>0 - 3</text> </observationRange> </ referenceRange> </observation> </component> <component> <observation moodCode="EVN" classCode="OBS"> <templateId root= "2.16.840.1.762583.02.28.22.4.2" /> <id nullFlavor="NA" /> < code codeSystem="local" code="UAVOL" displayName="UA VOLUME FOR EXAM" /> <statusCode code="completed" /> <effectiveTime value="423720154168" /> <value unit="mL" xsi:type="PQ" value="12.0" /> < referenceRange> <observationRange> <text>(12mL STD)</ text> </observationRange> </referenceRange> </ observation> </component> <component> <observation moodCode= "EVN" classCode="OBS"> <templateId root="2.16.840.1.714383.02.28.22.4.2 " /> <id nullFlavor="NA" /> <code codeSystem="local" code= "WBCU" displayName="UA WBC" /> <statusCode code="completed" /> <effectiveTime value="401931608784" /> <value unit="wbc/hpf" xsi:type ="PQ" value="0-1" /> <referenceRange> <observationRange> <text>0 - 5</text> </observationRange> </ referenceRange> </observation> </component> </organizer> </entry > <entry> <organizer moodCode="EVN" classCode="BATTERY"> <templateId root="2.16.840.1.553813.10.20.22.4.1" /> <id nullFlavor="NA" /> <code codeSystem="local" code="PREGU" displayName="UR TEST" /> < statusCode code="completed" /> <component> <observation moodCode= "EVN" classCode="OBS"> <templateId root="2.16.840.1.534514.10.20.22.4.2 " /> <id nullFlavor="NA" /> <code codeSystem="local" code= "PREGU" displayName="UR TEST" /> <statusCode code="completed " /> <effectiveTime value="875818009796" /> <value xsi:type= "ST" value="<pre><b>UR TEST</b> NEGATIVE</pre>" /> < referenceRange> <observationRange> <text>NEGATIVE</text > </observationRange> </referenceRange> </observation > </component> <component> <observation moodCode="EVN" classCode="OBS"> <templateId root="2.16.840.1.291744.10.20.22.4.2" /> <id nullFlavor="NA" /> <code codeSystem="local" code="MB" displayName="Microbiology" /> <statusCode code="completed" /> <effectiveTime value="280533066852" /> <value xsi:type="ST" value="<pre ><b>UR TEST</b> NEGATIVE</pre>" /> <referenceRange> <observationRange> <text /> </observationRange> </referenceRange> </observation> </component> </organizer> </entry> <entry> <organizer moodCode="EVN" classCode="BATTERY"> < templateId root="06.27.840.1.848945.10..4.1" /> <id nullFlavor="NA" /> <code codeSystem="local" code="CBCD" displayName="CBC W/DIFF" /> < statusCode code="completed" /> <component> <observation moodCode= "EVN" classCode="OBS"> <templateId root="840.1.514443.02.28.224.2 " /> <id nullFlavor="NA" /> <code codeSystem="local" code="BA# " displayName="BASOPHIL #" /> <statusCode code="completed" /> <effectiveTime value="656251601389" /> <value unit="k/cumm" xsi:type= "PQ" value="0.0" /> <referenceRange> <observationRange> <text>0.0-0.2</text> </observationRange> </ referenceRange> </observation> </component> <component> <observation moodCode="EVN" classCode="OBS"> <templateId root= "06.27.840.1.556142.02.28.22.4.2" /> <id nullFlavor="NA" /> < code codeSystem="local" code="BA%" displayName="BASOPHIL %" /> <statusCode code="completed" /> <effectiveTime value="958650196296" /> <value unit="%" xsi:type="PQ" value="1" /> < referenceRange> <observationRange> <text>0-1</text> </observationRange> </referenceRange> </observation> </component> <component> <observation moodCode="EVN" classCode= "OBS"> <templateId root="06.27.840.1.307090.02.28.22.4.2" /> < id nullFlavor="NA" /> <code codeSystem="local" code="EO#" displayName= "EOSINOPHIL #" /> <statusCode code="completed" /> < effectiveTime value="263015081062" /> <value unit="k/cumm" xsi:type="PQ " value="0.1" /> <referenceRange> <observationRange> <text>0.1-0.5</text> </observationRange> </ referenceRange> </observation> </component> <component> <observation moodCode="EVN" classCode="OBS"> <templateId root= "2.16.840.1.004230.02.28.224.2" /> <id nullFlavor="NA" /> < code codeSystem="local" code="EO%" displayName="EOSINOPHIL %" /> <statusCode code="completed" /> <effectiveTime value="835431181965" /> <value unit="%" xsi:type="PQ" value="1" /> < interpretationCode codeSystem="local" code="*" /> <referenceRange> <observationRange> <text>2-4</text> </ observationRange> </referenceRange> </observation> </ component> <component> <observation moodCode="EVN" classCode="OBS"> <templateId root="216.840.1.115831.104.2" /> <id nullFlavor="NA" /> <code codeSystem="local" code="GR#" displayName= "GRANULOCYTE #" /> <statusCode code="completed" /> < effectiveTime value="456505378398" /> <value unit="k/cumm" xsi:type="PQ " value="3.0" /> <referenceRange> <observationRange> <text>2.0-9.0</text> </observationRange> </ referenceRange> </observation> </component> <component> <observation moodCode="EVN" classCode="OBS"> <templateId root= "216.840.1.196778.1022.4.2" /> <id nullFlavor="NA" /> < code codeSystem="local" code="GR%" displayName="GRANULOCYTE %" /> <statusCode code="completed" /> <effectiveTime value="137099883003 " /> <value unit="%" xsi:type="PQ" value="57" /> < referenceRange> <observationRange> <text>50-75</text> </observationRange> </referenceRange> </observation> </component> <component> <observation moodCode="EVN" classCode= "OBS"> <templateId root="2.840.1.058907.02.28.22.4.2" /> < id nullFlavor="NA" /> <code codeSystem="local" code="LY#" displayName= "LYMPHOCYTE #" /> <statusCode code="completed" /> < effectiveTime value="574193498231" /> <value unit="k/cumm" xsi:type="PQ " value="1.8" /> <referenceRange> <observationRange> <text>1.0-4.0</text> </observationRange> </ referenceRange> </observation> </component> <component> <observation moodCode="EVN" classCode="OBS"> <templateId root= "216.840.1.178190.10.4.2" /> <id nullFlavor="NA" /> < code codeSystem="local" code="LY%" displayName="LYMPHOCYTE %" /> <statusCode code="completed" /> <effectiveTime value="911320747645" /> <value unit="%" xsi:type="PQ" value="34" /> < interpretationCode codeSystem="local" code="*" /> <referenceRange> <observationRange> <text>20-30</text> </ observationRange> </referenceRange> </observation> </ component> <component> <observation moodCode="EVN" classCode="OBS"> <templateId root="2.16.840.1.328653.10.22.4.2" /> <id nullFlavor="NA" /> <code codeSystem="local" code="MCH" displayName= "MEAN CELL HGB" /> <statusCode code="completed" /> < effectiveTime value="364901884261" /> <value unit="pg" xsi:type="PQ" value="20.4" /> <interpretationCode codeSystem="local" code="*" /> <referenceRange> <observationRange> <text>27.0- 33.0</text> </observationRange> </referenceRange> </ observation> </component> <component> <observation moodCode= "EVN" classCode="OBS"> <templateId root="2.16.840.1.864906.10..22.4.2 " /> <id nullFlavor="NA" /> <code codeSystem="local" code= "MCHC" displayName="MEAN CELL HGB CONCENTRATION" /> <statusCode code= "completed" /> <effectiveTime value="552375314815" /> <value unit="g/dL" xsi:type="PQ" value="30.3" /> <interpretationCode codeSystem="local" code="*" /> <referenceRange> < observationRange> <text>32.0-37.0</text> </ observationRange> </referenceRange> </observation> </ component> <component> <observation moodCode="EVN" classCode="OBS"> <templateId root="06.27.840.1.414963.10.2022.4.2" /> <id nullFlavor="NA" /> <code codeSystem="local" code="MCV" displayName= "MEAN CELL VOLUME" /> <statusCode code="completed" /> < effectiveTime value="532802082827" /> <value unit="fl" xsi:type="PQ" value="67.4" /> <interpretationCode codeSystem="local" code="*" /> <referenceRange> <observationRange> <text>80.0- 100.0</text> </observationRange> </referenceRange> </ observation> </component> <component> <observation moodCode= "EVN" classCode="OBS"> <templateId root="840.1.524903.10.4.2 " /> <id nullFlavor="NA" /> <code codeSystem="local" code="MO# " displayName="MONOCYTE #" /> <statusCode code="completed" /> <effectiveTime value="" /> <value unit="k/cumm" xsi:type= "PQ" value="0.4" /> <referenceRange> <observationRange> <text>0.1-1.0</text> </observationRange> </ referenceRange> </observation> </component> <component> <observation moodCode="EVN" classCode="OBS"> <templateId root= "06.27.840.1.311710.10.2022.4.2" /> <id nullFlavor="NA" /> < code codeSystem="local" code="MO%" displayName="MONOCYTE %" /> <statusCode code="completed" /> <effectiveTime value="" /> <value unit="%" xsi:type="PQ" value="7" /> < interpretationCode codeSystem="local" code="*" /> <referenceRange> <observationRange> <text>4-6</text> </ observationRange> </referenceRange> </observation> </ component> <component> <observation moodCode="EVN" classCode="OBS"> <templateId root="16.840.1.685967.10..22.4.2" /> <id nullFlavor="NA" /> <code codeSystem="local" code="OVAL" displayName= "OVALOCYTES" /> <statusCode code="completed" /> < effectiveTime value="901070148600" /> <value unit="" xsi:type="PQ" value="NOTED" /> <referenceRange> <observationRange> <text /> </observationRange> </referenceRange> </observation> </component> <component> <observation moodCode ="EVN" classCode="OBS"> <templateId root= "840.1.214739.10..22.4.2" /> <id nullFlavor="NA" /> < code codeSystem="local" code="RBC" displayName="RED BLOOD CELL" /> < statusCode code="completed" /> <effectiveTime value="717950335374" /> <value unit="m/cumm" xsi:type="PQ" value="3.77" /> < interpretationCode codeSystem="local" code="*" /> <referenceRange> <observationRange> <text>4.00-6.00</text> </ observationRange> </referenceRange> </observation> </ component> <component> <observation moodCode="EVN" classCode="OBS"> <templateId root="06.27.840.1.971240.10.20.22.4.2" /> <id nullFlavor="NA" /> <code codeSystem="local" code="RDW" displayName=" RED CELL DISTRIBUTION WIDTH" /> <statusCode code="completed" /> <effectiveTime value="450424057166" /> <value unit="%" xsi:type= "PQ" value="22.0" /> <interpretationCode codeSystem="local" code="*" / > <referenceRange> <observationRange> <text> 11.0-15.6</text> </observationRange> </referenceRange> </observation> </component> <component> <observation moodCode="EVN" classCode="OBS"> <templateId root= "216.840.1.637731.02.28.22.4.2" /> <id nullFlavor="NA" /> < code codeSystem="local" code="WBC" displayName="WHITE BLOOD CELL" /> < statusCode code="completed" /> <effectiveTime value="068239709747" /> <value unit="k/cumm" xsi:type="PQ" value="5.3" /> < referenceRange> <observationRange> <text>5.0-10.0</text > </observationRange> </referenceRange> </observation > </component> <component> <observation moodCode="EVN" classCode="OBS"> <templateId root="216.840.1.327833....4.2" /> <id nullFlavor="NA" /> <code codeSystem="local" code="HGBT" displayName="HEMOGLOBIN" /> <statusCode code="completed" /> < effectiveTime value="450216893598" /> <value unit="gm/dL" xsi:type="PQ " value="7.7" /> <interpretationCode codeSystem="local" code="*" /> <referenceRange> <observationRange> <text>12.0- 16.0</text> </observationRange> </referenceRange> </ observation> </component> <component> <observation moodCode= "EVN" classCode="OBS"> <templateId root="216.840.1.444182.10...4.2 " /> <id nullFlavor="NA" /> <code codeSystem="local" code= "HCTT" displayName="HEMATOCRIT" /> <statusCode code="completed" /> <effectiveTime value="909226220931" /> <value unit="%" xsi: type="PQ" value="25.4" /> <interpretationCode codeSystem="local" code= "*" /> <referenceRange> <observationRange> < text>37.0-47.0</text> </observationRange> </referenceRange> </observation> </component> <component> <observation moodCode="EVN" classCode="OBS"> <templateId root= "16.840.1.998272.02.28.22.4.2" /> <id nullFlavor="NA" /> < code codeSystem="local" code="PLT" displayName="PLATELET COUNT" /> < statusCode code="completed" /> <effectiveTime value="751123987027" /> <value unit="k/cumm" xsi:type="PQ" value="284" /> < referenceRange> <observationRange> <text>150-400</text> </observationRange> </referenceRange> </observation > </component> <component> <observation moodCode="EVN" classCode="OBS"> <templateId root="216.840.1.813036.10..4.2" /> <id nullFlavor="NA" /> <code codeSystem="local" code="MB" displayName="Microbiology" /> <statusCode code="completed" /> <effectiveTime value="196474667027" /> <value unit="" xsi:type="PQ" value="" /> <referenceRange> <observationRange> <text /> </observationRange> </referenceRange> </ observation> </component> </organizer> </entry> <entry> <organizer moodCode="EVN" classCode="BATTERY"> <templateId root= "216.840.1.867272.10..22.4.1" /> <id nullFlavor="NA" /> <code codeSystem="local" code="PREG" displayName=" TEST, SERUM" /> < statusCode code="completed" /> <component> <observation moodCode= "EVN" classCode="OBS"> <templateId root="216.840.1.514957.10...4.2 " /> <id nullFlavor="NA" /> <code codeSystem="local" code= "PREG" displayName=" TEST, SERUM" /> <statusCode code= "completed" /> <effectiveTime value="938470908014" /> <value xsi:type="ST" value="<pre><b> TEST, SERUM</b> NEGATIVE</pre>" /> <referenceRange> <observationRange> <text>NEGATIVE</ text> </observationRange> </referenceRange> </ observation> </component> <component> <observation moodCode= "EVN" classCode="OBS"> <templateId root="06.27.840.1.612583.10..22.4.2 " /> <id nullFlavor="NA" /> <code codeSystem="local" code="MB " displayName="Microbiology" /> <statusCode code="completed" /> <effectiveTime value="639104315458" /> <value xsi:type="ST" value="< pre><b> TEST, SERUM</b> NEGATIVE</pre>" /> <referenceRange> <observationRange> <text /> </observationRange > </referenceRange> </observation> </component> </ organizer> </entry> <entry> <organizer moodCode="EVN" classCode="BATTERY"> <templateId root="216.840.1.179855.10..22.4.1" /> <id nullFlavor= "NA" /> <code codeSystem="local" code="METABC" displayName="METABOLIC PANEL , COMPREHN" /> <statusCode code="completed" /> <component> < observation moodCode="EVN" classCode="OBS"> <templateId root= "2.840.1.059968...4.2" /> <id nullFlavor="NA" /> < code codeSystem="local" code="K" displayName="POTASSIUM" /> < statusCode code="completed" /> <effectiveTime value="906158211134" /> <value unit="mmol/L" xsi:type="PQ" value="3.5" /> < referenceRange> <observationRange> <text>3.5-5.3</text> </observationRange> </referenceRange> </observation > </component> <component> <observation moodCode="EVN" classCode="OBS"> <templateId root="16.840.1.796761....4.2" /> <id nullFlavor="NA" /> <code codeSystem="local" code="eGFR" displayName="EST GFR (MDRD)" /> <statusCode code="completed" /> <effectiveTime value="358062901827" /> <value unit="mL/min" xsi:type ="PQ" value="> 60" /> <referenceRange> <observationRange > <text>> 59</text> </observationRange> </ referenceRange> </observation> </component> <component> <observation moodCode="EVN" classCode="OBS"> <templateId root= "216.840.1.129328.10..22.4.2" /> <id nullFlavor="NA" /> < code codeSystem="local" code="GAP" displayName="ANION GAP" /> < statusCode code="completed" /> <effectiveTime value="846244341365" /> <value unit="mmol/L" xsi:type="PQ" value="8" /> < referenceRange> <observationRange> <text>5-15</text> </observationRange> </referenceRange> </observation> </component> <component> <observation moodCode="EVN" classCode= "OBS"> <templateId root="06.27.840.1.991833.10...4.2" /> < id nullFlavor="NA" /> <code codeSystem="local" code="eCrCl" displayName ="EST CrCl (CG)" /> <statusCode code="completed" /> < effectiveTime value="761007213785" /> <value unit="mL/min" xsi:type="PQ " value="> 60" /> <referenceRange> <observationRange> <text>> 59</text> </observationRange> </ referenceRange> </observation> </component> <component> <observation moodCode="EVN" classCode="OBS"> <templateId root= "06.27.840.1.729065.10...4.2" /> <id nullFlavor="NA" /> < code codeSystem="local" code="GLU" displayName="GLUCOSE" /> < statusCode code="completed" /> <effectiveTime value="220200696851" /> <value unit="mg/dL" xsi:type="PQ" value="79" /> < referenceRange> <observationRange> <text>70-99</text> </observationRange> </referenceRange> </observation> </component> <component> <observation moodCode="EVN" classCode= "OBS"> <templateId root="216.840.1.017766.10..22.4.2" /> < id nullFlavor="NA" /> <code codeSystem="local" code="CA" displayName= "CALCIUM" /> <statusCode code="completed" /> <effectiveTime value="962589868545" /> <value unit="mg/dL" xsi:type="PQ" value="8.6" / > <referenceRange> <observationRange> <text>8.5 -10.1</text> </observationRange> </referenceRange> </ observation> </component> <component> <observation moodCode= "EVN" classCode="OBS"> <templateId root="06.27.840.1.491365.02.28.22.4.2 " /> <id nullFlavor="NA" /> <code codeSystem="local" code="BUN " displayName="BLOOD UREA NITROGEN" /> <statusCode code="completed" /> <effectiveTime value="059667264523" /> <value unit="mg/dL" xsi:type="PQ" value="9" /> <referenceRange> < observationRange> <text>7-20</text> </observationRange> </referenceRange> </observation> </component> < component> <observation moodCode="EVN" classCode="OBS"> < templateId root="06.27.840.1.334032.10..22.4.2" /> <id nullFlavor="NA " /> <code codeSystem="local" code="CREAT" displayName="CREATININE" /> <statusCode code="completed" /> <effectiveTime value= "900964153022" /> <value unit="mg/dL" xsi:type="PQ" value="0.6" /> <referenceRange> <observationRange> <text>0.6-1.0< /text> </observationRange> </referenceRange> </ observation> </component> <component> <observation moodCode= "EVN" classCode="OBS"> <templateId root="216.840.1.062062.10..22.4.2 " /> <id nullFlavor="NA" /> <code codeSystem="local" code="NA " displayName="SODIUM" /> <statusCode code="completed" /> < effectiveTime value="620155328704" /> <value unit="mmol/L" xsi:type="PQ " value="139" /> <referenceRange> <observationRange> <text>135-148</text> </observationRange> </ referenceRange> </observation> </component> <component> <observation moodCode="EVN" classCode="OBS"> <templateId root= "06.27.840.1.652777.10..4.2" /> <id nullFlavor="NA" /> < code codeSystem="local" code="CL" displayName="CHLORIDE" /> < statusCode code="completed" /> <effectiveTime value="311744397231" /> <value unit="mmol/L" xsi:type="PQ" value="101" /> < referenceRange> <observationRange> <text>98-110</text> </observationRange> </referenceRange> </observation> </component> <component> <observation moodCode="EVN" classCode ="OBS"> <templateId root="06.27.840.1.349704.10.20.22.4.2" /> < id nullFlavor="NA" /> <code codeSystem="local" code="AST" displayName= "AST/SGOT" /> <statusCode code="completed" /> <effectiveTime value="888596909920" /> <value unit="Units/L" xsi:type="PQ" value="38" /> <interpretationCode codeSystem="local" code="*" /> < referenceRange> <observationRange> <text>10-37</text> </observationRange> </referenceRange> </observation> </component> <component> <observation moodCode="EVN" classCode= "OBS"> <templateId root="216.840.1.552646.10.20.22.4.2" /> < id nullFlavor="NA" /> <code codeSystem="local" code="ALT" displayName= "ALT/SGPT" /> <statusCode code="completed" /> <effectiveTime value="279375883585" /> <value unit="Units/L" xsi:type="PQ" value="67" /> <interpretationCode codeSystem="local" code="*" /> < referenceRange> <observationRange> <text>< 66</text> </observationRange> </referenceRange> </observation > </component> <component> <observation moodCode="EVN" classCode="OBS"> <templateId root="216.840.1.803828.10.20.22.4.2" /> <id nullFlavor="NA" /> <code codeSystem="local" code="CO2" displayName="CARBON DIOXIDE" /> <statusCode code="completed" /> <effectiveTime value="827804276094" /> <value unit="mmol/L" xsi:type ="PQ" value="30" /> <referenceRange> <observationRange> <text>21-32</text> </observationRange> </ referenceRange> </observation> </component> <component> <observation moodCode="EVN" classCode="OBS"> <templateId root= "06.27.840.1.207790.10.2022.4.2" /> <id nullFlavor="NA" /> < code codeSystem="local" code="TP" displayName="TOTAL PROTEIN" /> < statusCode code="completed" /> <effectiveTime value="249764566909" /> <value unit="gm/dL" xsi:type="PQ" value="6.7" /> < referenceRange> <observationRange> <text>6.4-8.2</text> </observationRange> </referenceRange> </observation > </component> <component> <observation moodCode="EVN" classCode="OBS"> <templateId root="06.27.840.1.186578.1022.4.2" /> <id nullFlavor="NA" /> <code codeSystem="local" code="ALB" displayName="ALBUMIN" /> <statusCode code="completed" /> < effectiveTime value="673398143804" /> <value unit="gm/dL" xsi:type="PQ " value="2.9" /> <interpretationCode codeSystem="local" code="*" /> <referenceRange> <observationRange> <text>3.4-5.0 </text> </observationRange> </referenceRange> </ observation> </component> <component> <observation moodCode= "EVN" classCode="OBS"> <templateId root="06.27.840.1.002034.10.2022.4.2 " /> <id nullFlavor="NA" /> <code codeSystem="local" code= "BILTOT" displayName="BILI TOTAL" /> <statusCode code="completed" /> <effectiveTime value="074755204863" /> <value unit="mg/dL" xsi: type="PQ" value="0.3" /> <referenceRange> <observationRange > <text>0.0-1.0</text> </observationRange> </ referenceRange> </observation> </component> <component> <observation moodCode="EVN" classCode="OBS"> <templateId root= "16.840.1.805297.10..22.4.2" /> <id nullFlavor="NA" /> < code codeSystem="local" code="ALKP" displayName="ALKALINE PHOSPHATASE TOTAL" /> <statusCode code="completed" /> <effectiveTime value= "176887721735" /> <value unit="IU/L" xsi:type="PQ" value="149" /> <interpretationCode codeSystem="local" code="*" /> <referenceRange > <observationRange> <text>45-117</text> </ observationRange> </referenceRange> </observation> </ component> <component> <observation moodCode="EVN" classCode="OBS"> <templateId root="06.27.840.1.586891.10..4.2" /> <id nullFlavor="NA" /> <code codeSystem="local" code="MB" displayName= "Microbiology" /> <statusCode code="completed" /> < effectiveTime value="013272859254" /> <value unit="" xsi:type="PQ" value="" /> <referenceRange> <observationRange> <text /> </observationRange> </referenceRange> </ observation> </component> </organizer> </entry> <entry> <organizer moodCode="EVN" classCode="BATTERY"> <templateId root= "06.27.840.1.654204.10..22.4.1" /> <id nullFlavor="NA" /> <code codeSystem="local" code="MAG" displayName="MAGNESIUM" /> <statusCode code= "completed" /> <component> <observation moodCode="EVN" classCode= "OBS"> <templateId root="2.16.840.1.733704.10..22.4.2" /> < id nullFlavor="NA" /> <code codeSystem="local" code="MAG" displayName= "MAGNESIUM" /> <statusCode code="completed" /> <effectiveTime value="644460711859" /> <value unit="mg/dL" xsi:type="PQ" value="1.8" / > <referenceRange> <observationRange> <text>1.8 -2.4</text> </observationRange> </referenceRange> </ observation> </component> </organizer> </entry> <entry> <organizer moodCode="EVN" classCode="BATTERY"> <templateId root= "2.16.840.1.325913.10..22.4.1" /> <id nullFlavor="NA" /> <code codeSystem="local" code="LIP" displayName="LIPASE" /> <statusCode code= "completed" /> <component> <observation moodCode="EVN" classCode= "OBS"> <templateId root="2.16.840.1.282060.10.20.22.4.2" /> < id nullFlavor="NA" /> <code codeSystem="local" code="LIP" displayName= "LIPASE" /> <statusCode code="completed" /> <effectiveTime value="577566730791" /> <value unit="Units/L" xsi:type="PQ" value="123 " /> <referenceRange> <observationRange> <text> 73-393</text> </observationRange> </referenceRange> < /observation> </component> </organizer> </entry> <entry> < organizer moodCode="EVN" classCode="BATTERY"> <templateId root= "2.16.840.1.025069.10.22.4.1" /> <id nullFlavor="NA" /> <code codeSystem="local" code="iCHEM8" displayName="CHEM/HEM PROFILE-BEDSIDE" /> <statusCode code="completed" /> <component> <observation moodCode= "EVN" classCode="OBS"> <templateId root="840.1.350367.22.4.2 " /> <id nullFlavor="NA" /> <code codeSystem="local" code="K" displayName="POTASSIUM" /> <statusCode code="completed" /> < effectiveTime value="502831876804" /> <value unit="mmol/L" xsi:type="PQ " value="3.4" /> <interpretationCode codeSystem="local" code="*" /> <referenceRange> <observationRange> <text>3.5-5.3 </text> </observationRange> </referenceRange> </ observation> </component> <component> <observation moodCode= "EVN" classCode="OBS"> <templateId root="06.27.840.1.060563.02.28.22.4.2 " /> <id nullFlavor="NA" /> <code codeSystem="local" code= "CMETHOD" displayName="METHOD" /> <statusCode code="completed" /> <effectiveTime value="662357676596" /> <value unit="" xsi:type="PQ " value="Bedside" /> <referenceRange> <observationRange> <text /> </observationRange> </referenceRange> </observation> </component> <component> <observation moodCode="EVN" classCode="OBS"> <templateId root= "06.27.840.1.818023.22.4.2" /> <id nullFlavor="NA" /> < code codeSystem="local" code="GAP" displayName="ANION GAP" /> < statusCode code="completed" /> <effectiveTime value="723758080622" /> <value unit="mmol/L" xsi:type="PQ" value="17" /> < referenceRange> <observationRange> <text>10-20</text> </observationRange> </referenceRange> </observation> </component> <component> <observation moodCode="EVN" classCode= "OBS"> <templateId root="06.27.840.1.482723.10.2022.4.2" /> < id nullFlavor="NA" /> <code codeSystem="local" code="HMETHOD" displayName="METHOD" /> <statusCode code="completed" /> < effectiveTime value="468213966872" /> <value unit="" xsi:type="PQ" value="Bedside" /> <referenceRange> <observationRange> <text /> </observationRange> </referenceRange> </observation> </component> <component> <observation moodCode="EVN" classCode="OBS"> <templateId root= "06.27.840.1.969841..22.4.2" /> <id nullFlavor="NA" /> < code codeSystem="local" code="GLU" displayName="GLUCOSE" /> < statusCode code="completed" /> <effectiveTime value="669844773081" /> <value unit="mg/dL" xsi:type="PQ" value="77" /> < referenceRange> <observationRange> <text>70-99</text> </observationRange> </referenceRange> </observation> </component> <component> <observation moodCode="EVN" classCode= "OBS"> <templateId root="06.27.840.1.059336.02.28.224.2" /> < id nullFlavor="NA" /> <code codeSystem="local" code="BUN" displayName= "BLOOD UREA NITROGEN" /> <statusCode code="completed" /> < effectiveTime value="851942235710" /> <value unit="mg/dL" xsi:type="PQ " value="5" /> <interpretationCode codeSystem="local" code="*" /> <referenceRange> <observationRange> <text>7-20</ text> </observationRange> </referenceRange> </ observation> </component> <component> <observation moodCode= "EVN" classCode="OBS"> <templateId root="2.16.840.1.476270.02.28.224.2 " /> <id nullFlavor="NA" /> <code codeSystem="local" code= "CREAT" displayName="CREATININE" /> <statusCode code="completed" /> <effectiveTime value="325842134068" /> <value unit="mg/dL" xsi: type="PQ" value="0.6" /> <referenceRange> <observationRange > <text>0.6-1.0</text> </observationRange> </ referenceRange> </observation> </component> <component> <observation moodCode="EVN" classCode="OBS"> <templateId root= "2.16.840.1.266986.02.28.22.4.2" /> <id nullFlavor="NA" /> < code codeSystem="local" code="HGBT" displayName="HEMOGLOBIN" /> < statusCode code="completed" /> <effectiveTime value="424957752458" /> <value unit="gm/dL" xsi:type="PQ" value="8.5" /> < interpretationCode codeSystem="local" code="*" /> <referenceRange> <observationRange> <text>12.0-16.0</text> </ observationRange> </referenceRange> </observation> </ component> <component> <observation moodCode="EVN" classCode="OBS"> <templateId root="2.16.840.1.243789.10.2022.4.2" /> <id nullFlavor="NA" /> <code codeSystem="local" code="HCTT" displayName= "HEMATOCRIT" /> <statusCode code="completed" /> < effectiveTime value="769432498539" /> <value unit="%" xsi:type="PQ " value="25.0" /> <interpretationCode codeSystem="local" code="*" /> <referenceRange> <observationRange> <text>37.0- 47.0</text> </observationRange> </referenceRange> </ observation> </component> <component> <observation moodCode= "EVN" classCode="OBS"> <templateId root="216.840.1.514818.10..4.2 " /> <id nullFlavor="NA" /> <code codeSystem="local" code="NA " displayName="SODIUM" /> <statusCode code="completed" /> < effectiveTime value="090328269237" /> <value unit="mmol/L" xsi:type="PQ " value="138" /> <referenceRange> <observationRange> <text>135-148</text> </observationRange> </ referenceRange> </observation> </component> <component> <observation moodCode="EVN" classCode="OBS"> <templateId root= "216.840.1.232232.10.2022.4.2" /> <id nullFlavor="NA" /> < code codeSystem="local" code="CL" displayName="CHLORIDE" /> < statusCode code="completed" /> <effectiveTime value="796501310860" /> <value unit="mmol/L" xsi:type="PQ" value="100" /> < referenceRange> <observationRange> <text>98-110</text> </observationRange> </referenceRange> </observation> </component> <component> <observation moodCode="EVN" classCode ="OBS"> <templateId root="16.840.1.470196.10..22.4.2" /> < id nullFlavor="NA" /> <code codeSystem="local" code="CO2" displayName= "CARBON DIOXIDE" /> <statusCode code="completed" /> < effectiveTime value="565028211216" /> <value unit="mmol/L" xsi:type="PQ " value="25" /> <referenceRange> <observationRange> <text>21-32</text> </observationRange> </ referenceRange> </observation> </component> <component> <observation moodCode="EVN" classCode="OBS"> <templateId root= "840.1.303056.10.22.4.2" /> <id nullFlavor="NA" /> < code codeSystem="local" code="CAION" displayName="CALCIUM IONIZED" /> < statusCode code="completed" /> <effectiveTime value="613062681933" /> <value unit="mg/dL" xsi:type="PQ" value="4.7" /> < referenceRange> <observationRange> <text>4.5-5.3</text> </observationRange> </referenceRange> </observation > </component> <component> <observation moodCode="EVN" classCode="OBS"> <templateId root="16.840.1.212967.10.20.22.4.2" /> <id nullFlavor="NA" /> <code codeSystem="local" code="MB" displayName="Microbiology" /> <statusCode code="completed" /> <effectiveTime value="925349546070" /> <value unit="" xsi:type="PQ" value="" /> <referenceRange> <observationRange> <text /> </observationRange> </referenceRange> </ observation> </component> </organizer> </entry> <entry> <organizer moodCode="EVN" classCode="BATTERY"> <templateId root= "216.840.1.698426.10..22.4.1" /> <id nullFlavor="NA" /> <code codeSystem="local" code="UANRC" displayName="URINALYSIS, NO REFLEX CULTURE" /> <statusCode code="completed" /> <component> <observation moodCode="EVN" classCode="OBS"> <templateId root= "216.840.1.664771.10...4.2" /> <id nullFlavor="NA" /> < code codeSystem="local" code="LEUESU" displayName="UA LEUKOCYTE ESTERASE DIPSTICK" /> <statusCode code="completed" /> <effectiveTime value="721403473453" /> <value unit="" xsi:type="PQ" value="2+" /> <interpretationCode codeSystem="local" code="*" /> < referenceRange> <observationRange> <text>NEGATIVE</text > </observationRange> </referenceRange> </observation > </component> <component> <observation moodCode="EVN" classCode="OBS"> <templateId root="216.840.1.279575.10..4.2" /> <id nullFlavor="NA" /> <code codeSystem="local" code="NITRIU" displayName="UA NITRITE DIPSTICK" /> <statusCode code="completed" /> <effectiveTime value="610618199976" /> <value unit="" xsi:type= "PQ" value="NEGATIVE" /> <referenceRange> <observationRange > <text>NEGATIVE</text> </observationRange> </ referenceRange> </observation> </component> <component> <observation moodCode="EVN" classCode="OBS"> <templateId root= "216.840.1.013470.02.28.22.4.2" /> <id nullFlavor="NA" /> < code codeSystem="local" code="PROTEIU" displayName="UA PROTEIN DIPSTICK" /> <statusCode code="completed" /> <effectiveTime value= "958753597727" /> <value unit="" xsi:type="PQ" value="1+" /> < interpretationCode codeSystem="local" code="*" /> <referenceRange> <observationRange> <text>NEGATIVE</text> </ observationRange> </referenceRange> </observation> </ component> <component> <observation moodCode="EVN" classCode="OBS"> <templateId root="06.27.840.1.519135.02.28.22.4.2" /> <id nullFlavor="NA" /> <code codeSystem="local" code="DGLUU" displayName= "UA GLUCOSE DIPSTICK" /> <statusCode code="completed" /> < effectiveTime value="601132941003" /> <value unit="" xsi:type="PQ" value="NEGATIVE" /> <referenceRange> <observationRange> <text>NEGATIVE</text> </observationRange> </ referenceRange> </observation> </component> <component> <observation moodCode="EVN" classCode="OBS"> <templateId root= "06.27.840.1.960262.02.28.22.4.2" /> <id nullFlavor="NA" /> < code codeSystem="local" code="KETONU" displayName="UA KETONE DIPSTICK" /> <statusCode code="completed" /> <effectiveTime value="741197956264 " /> <value unit="" xsi:type="PQ" value="NEGATIVE" /> < referenceRange> <observationRange> <text>NEGATIVE</text > </observationRange> </referenceRange> </observation > </component> <component> <observation moodCode="EVN" classCode="OBS"> <templateId root="16.840.1.522462.10...4.2" /> <id nullFlavor="NA" /> <code codeSystem="local" code="UROBILU " displayName="UA UROBILINOGEN DIPSTICK" /> <statusCode code="completed " /> <effectiveTime value="235201595883" /> <value unit="" xsi :type="PQ" value="NORMAL" /> <referenceRange> < observationRange> <text>NORMAL</text> </observationRange > </referenceRange> </observation> </component> < component> <observation moodCode="EVN" classCode="OBS"> < templateId root="16.840.1.888696.10...4.2" /> <id nullFlavor="NA " /> <code codeSystem="local" code="BILU" displayName="UA BILIRUBIN DIPSTICK" /> <statusCode code="completed" /> <effectiveTime value="503127086745" /> <value unit="" xsi:type="PQ" value="NEGATIVE" / > <referenceRange> <observationRange> <text> NEGATIVE</text> </observationRange> </referenceRange> </observation> </component> <component> <observation moodCode ="EVN" classCode="OBS"> <templateId root= "16.840.1.598829.02.28.22.4.2" /> <id nullFlavor="NA" /> < code codeSystem="local" code="NOLVIA" displayName="UA BLOOD DIPSTICK" /> < statusCode code="completed" /> <effectiveTime value="" /> <value unit="" xsi:type="PQ" value="1+" /> < interpretationCode codeSystem="local" code="*" /> <referenceRange> <observationRange> <text>NEGATIVE</text> </ observationRange> </referenceRange> </observation> </ component> <component> <observation moodCode="EVN" classCode="OBS"> <templateId root="06.27.840.1.635988.02.28.224.2" /> <id nullFlavor="NA" /> <code codeSystem="local" code="SPGRU" displayName= "UA SPECIFIC GRAVITY" /> <statusCode code="completed" /> < effectiveTime value="" /> <value unit="" xsi:type="PQ" value="1.010" /> <interpretationCode codeSystem="local" code="*" /> <referenceRange> <observationRange> <text>1.015- 1.025</text> </observationRange> </referenceRange> </ observation> </component> <component> <observation moodCode= "EVN" classCode="OBS"> <templateId root="06.27.840.1.270205.10.4.2 " /> <id nullFlavor="NA" /> <code codeSystem="local" code="DIETER " displayName="UR PH" /> <statusCode code="completed" /> < effectiveTime value="" /> <value unit="" xsi:type="PQ" value="8.0" /> <interpretationCode codeSystem="local" code="*" /> <referenceRange> <observationRange> <text>5.0-7.0</ text> </observationRange> </referenceRange> </ observation> </component> </organizer> </entry> <entry> <organizer moodCode="EVN" classCode="BATTERY"> <templateId root= "216.840.1.152990.10..22.4.1" /> <id nullFlavor="NA" /> <code codeSystem="local" code="UAMICRO" displayName="UA MICROSCOPIC" /> < statusCode code="completed" /> <component> <observation moodCode= "EVN" classCode="OBS"> <templateId root="216.840.1.305693.10...4.2 " /> <id nullFlavor="NA" /> <code codeSystem="local" code= "BACU" displayName="UA BACTERIA" /> <statusCode code="completed" /> <effectiveTime value="" /> <value unit="" xsi:type= "PQ" value="2+" /> <interpretationCode codeSystem="local" code="*" /> <referenceRange> <observationRange> <text> NEGATIVE</text> </observationRange> </referenceRange> </observation> </component> <component> <observation moodCode ="EVN" classCode="OBS"> <templateId root= "16.840.1.768022.10..4.2" /> <id nullFlavor="NA" /> < code codeSystem="local" code="EPIU" displayName="UA EPITHELIAL CELLS" /> <statusCode code="completed" /> <effectiveTime value="677110627187" /> <value unit="epi/hpf" xsi:type="PQ" value="1+" /> < referenceRange> <observationRange> <text>0 - 1+</text> </observationRange> </referenceRange> </observation> </component> <component> <observation moodCode="EVN" classCode ="OBS"> <templateId root="216.840.1.509822.02.28.22.4.2" /> < id nullFlavor="NA" /> <code codeSystem="local" code="MUCUSU" displayName="UA MUCUS" /> <statusCode code="completed" /> < effectiveTime value="450398724249" /> <value unit="" xsi:type="PQ" value="2+" /> <interpretationCode codeSystem="local" code="*" /> <referenceRange> <observationRange> <text>NEG TO 1+< /text> </observationRange> </referenceRange> </ observation> </component> <component> <observation moodCode= "EVN" classCode="OBS"> <templateId root="06.27.840.1.740241.02.28.22.4.2 " /> <id nullFlavor="NA" /> <code codeSystem="local" code= "RBCU" displayName="UA RBC" /> <statusCode code="completed" /> <effectiveTime value="069880779539" /> <value unit="rbc/hpf" xsi:type ="PQ" value="0-3" /> <referenceRange> <observationRange> <text>0 - 3</text> </observationRange> </ referenceRange> </observation> </component> <component> <observation moodCode="EVN" classCode="OBS"> <templateId root= "16.840.1.838350.02.28.22.4.2" /> <id nullFlavor="NA" /> < code codeSystem="local" code="UAVOL" displayName="UA VOLUME FOR EXAM" /> <statusCode code="completed" /> <effectiveTime value="818250665815" /> <value unit="mL" xsi:type="PQ" value="12.0" /> < referenceRange> <observationRange> <text>(12mL STD)</ text> </observationRange> </referenceRange> </ observation> </component> <component> <observation moodCode= "EVN" classCode="OBS"> <templateId root="840.1.699334.02.28.22.4.2 " /> <id nullFlavor="NA" /> <code codeSystem="local" code= "WBCU" displayName="UA WBC" /> <statusCode code="completed" /> <effectiveTime value="477973070583" /> <value unit="wbc/hpf" xsi:type ="PQ" value="5-10" /> <interpretationCode codeSystem="local" code="*" / > <referenceRange> <observationRange> <text>0 - 5</text> </observationRange> </referenceRange> </ observation> </component> </organizer> </entry> <entry> <organizer moodCode="EVN" classCode="BATTERY"> <templateId root= "06.27.840.1.319139.02.28.22.4.1" /> <id nullFlavor="NA" /> <code codeSystem="local" code="CBCD" displayName="CBC W/DIFF" /> <statusCode code ="completed" /> <component> <observation moodCode="EVN" classCode= "OBS"> <templateId root="06.27.840.1.791299.02.28.22.4.2" /> < id nullFlavor="NA" /> <code codeSystem="local" code="BA#" displayName= "BASOPHIL #" /> <statusCode code="completed" /> < effectiveTime value="450383768709" /> <value unit="k/cumm" xsi:type="PQ " value="0.0" /> <referenceRange> <observationRange> <text>0.0-0.2</text> </observationRange> </ referenceRange> </observation> </component> <component> <observation moodCode="EVN" classCode="OBS"> <templateId root= "216.840.1.914629.10..4.2" /> <id nullFlavor="NA" /> < code codeSystem="local" code="BA%" displayName="BASOPHIL %" /> <statusCode code="completed" /> <effectiveTime value="888216553533" /> <value unit="%" xsi:type="PQ" value="1" /> < referenceRange> <observationRange> <text>0-1</text> </observationRange> </referenceRange> </observation> </component> <component> <observation moodCode="EVN" classCode= "OBS"> <templateId root="16.840.1.538094.10.4.2" /> < id nullFlavor="NA" /> <code codeSystem="local" code="EO#" displayName= "EOSINOPHIL #" /> <statusCode code="completed" /> < effectiveTime value="150336308189" /> <value unit="k/cumm" xsi:type="PQ " value="0.2" /> <referenceRange> <observationRange> <text>0.1-0.5</text> </observationRange> </ referenceRange> </observation> </component> <component> <observation moodCode="EVN" classCode="OBS"> <templateId root= "16.840.1.909692.10...4.2" /> <id nullFlavor="NA" /> < code codeSystem="local" code="EO%" displayName="EOSINOPHIL %" /> <statusCode code="completed" /> <effectiveTime value="611769091650" /> <value unit="%" xsi:type="PQ" value="4" /> < referenceRange> <observationRange> <text>2-4</text> </observationRange> </referenceRange> </observation> </component> <component> <observation moodCode="EVN" classCode= "OBS"> <templateId root="2.16.840.1.643564.10..22.4.2" /> < id nullFlavor="NA" /> <code codeSystem="local" code="GR#" displayName= "GRANULOCYTE #" /> <statusCode code="completed" /> < effectiveTime value="448984076186" /> <value unit="k/cumm" xsi:type="PQ " value="4.1" /> <referenceRange> <observationRange> <text>2.0-9.0</text> </observationRange> </ referenceRange> </observation> </component> <component> <observation moodCode="EVN" classCode="OBS"> <templateId root= "2.16.840.1.369914.10.20.22.4.2" /> <id nullFlavor="NA" /> < code codeSystem="local" code="GR%" displayName="GRANULOCYTE %" /> <statusCode code="completed" /> <effectiveTime value="799026876609 " /> <value unit="%" xsi:type="PQ" value="60" /> < referenceRange> <observationRange> <text>50-75</text> </observationRange> </referenceRange> </observation> </component> <component> <observation moodCode="EVN" classCode= "OBS"> <templateId root="06.27.840.1.907997.10..4.2" /> < id nullFlavor="NA" /> <code codeSystem="local" code="LY#" displayName= "LYMPHOCYTE #" /> <statusCode code="completed" /> < effectiveTime value="053208199476" /> <value unit="k/cumm" xsi:type="PQ " value="1.9" /> <referenceRange> <observationRange> <text>1.0-4.0</text> </observationRange> </ referenceRange> </observation> </component> <component> <observation moodCode="EVN" classCode="OBS"> <templateId root= "06.27.840.1.884530.10.4.2" /> <id nullFlavor="NA" /> < code codeSystem="local" code="LY%" displayName="LYMPHOCYTE %" /> <statusCode code="completed" /> <effectiveTime value="049437723946" /> <value unit="%" xsi:type="PQ" value="27" /> < referenceRange> <observationRange> <text>20-30</text> </observationRange> </referenceRange> </observation> </component> <component> <observation moodCode="EVN" classCode= "OBS"> <templateId root="06.27.840.1.315435.10.22.4.2" /> < id nullFlavor="NA" /> <code codeSystem="local" code="MCH" displayName= "MEAN CELL HGB" /> <statusCode code="completed" /> < effectiveTime value="779022287243" /> <value unit="pg" xsi:type="PQ" value="30.0" /> <referenceRange> <observationRange> <text>27.0-33.0</text> </observationRange> </ referenceRange> </observation> </component> <component> <observation moodCode="EVN" classCode="OBS"> <templateId root= "06.27.840.1.607222.10.4.2" /> <id nullFlavor="NA" /> < code codeSystem="local" code="MCHC" displayName="MEAN CELL HGB CONCENTRATION" / > <statusCode code="completed" /> <effectiveTime value= "376643244195" /> <value unit="g/dL" xsi:type="PQ" value="33.8" /> <referenceRange> <observationRange> <text>32.0- 37.0</text> </observationRange> </referenceRange> </ observation> </component> <component> <observation moodCode= "EVN" classCode="OBS"> <templateId root="06.27.840.1.305294.02.28.22.4.2 " /> <id nullFlavor="NA" /> <code codeSystem="local" code="MCV " displayName="MEAN CELL VOLUME" /> <statusCode code="completed" /> <effectiveTime value="712329897877" /> <value unit="fl" xsi:type ="PQ" value="88.8" /> <referenceRange> <observationRange> <text>80.0-100.0</text> </observationRange> </ referenceRange> </observation> </component> <component> <observation moodCode="EVN" classCode="OBS"> <templateId root= "06.27.840.1.110859.02.28.22.4.2" /> <id nullFlavor="NA" /> < code codeSystem="local" code="MO#" displayName="MONOCYTE #" /> < statusCode code="completed" /> <effectiveTime value="865416249830" /> <value unit="k/cumm" xsi:type="PQ" value="0.6" /> < referenceRange> <observationRange> <text>0.1-1.0</text> </observationRange> </referenceRange> </observation > </component> <component> <observation moodCode="EVN" classCode="OBS"> <templateId root="216.840.1.090925.02.28.22.4.2" /> <id nullFlavor="NA" /> <code codeSystem="local" code="MO% " displayName="MONOCYTE %" /> <statusCode code="completed" /> <effectiveTime value="418637128939" /> <value unit="%" xsi: type="PQ" value="9" /> <interpretationCode codeSystem="local" code="*" /> <referenceRange> <observationRange> <text>4- 6</text> </observationRange> </referenceRange> </ observation> </component> <component> <observation moodCode= "EVN" classCode="OBS"> <templateId root="216.840.1.054679.10...4.2 " /> <id nullFlavor="NA" /> <code codeSystem="local" code="RBC " displayName="RED BLOOD CELL" /> <statusCode code="completed" /> <effectiveTime value="296794069353" /> <value unit="m/cumm" xsi: type="PQ" value="3.57" /> <interpretationCode codeSystem="local" code= "*" /> <referenceRange> <observationRange> < text>4.00-6.00</text> </observationRange> </referenceRange> </observation> </component> <component> <observation moodCode="EVN" classCode="OBS"> <templateId root= "2.16.840.1.492673.102022.4.2" /> <id nullFlavor="NA" /> < code codeSystem="local" code="RDW" displayName="RED CELL DISTRIBUTION WIDTH" /> <statusCode code="completed" /> <effectiveTime value= "002322175027" /> <value unit="%" xsi:type="PQ" value="13.5" /> <referenceRange> <observationRange> <text>11.0- 15.6</text> </observationRange> </referenceRange> </ observation> </component> <component> <observation moodCode= "EVN" classCode="OBS"> <templateId root="06.27.840.1.863144.02.28.22.4.2 " /> <id nullFlavor="NA" /> <code codeSystem="local" code="WBC " displayName="WHITE BLOOD CELL" /> <statusCode code="completed" /> <effectiveTime value="144180784061" /> <value unit="k/cumm" xsi: type="PQ" value="6.9" /> <referenceRange> <observationRange > <text>5.0-10.0</text> </observationRange> </ referenceRange> </observation> </component> <component> <observation moodCode="EVN" classCode="OBS"> <templateId root= "06.27.840.1.603603.22.4.2" /> <id nullFlavor="NA" /> < code codeSystem="local" code="HGBT" displayName="HEMOGLOBIN" /> < statusCode code="completed" /> <effectiveTime value="595742566466" /> <value unit="gm/dL" xsi:type="PQ" value="10.7" /> < interpretationCode codeSystem="local" code="*" /> <referenceRange> <observationRange> <text>12.0-16.0</text> </ observationRange> </referenceRange> </observation> </ component> <component> <observation moodCode="EVN" classCode="OBS"> <templateId root="216.840.1.861145.10.20.22.4.2" /> <id nullFlavor="NA" /> <code codeSystem="local" code="HCTT" displayName= "HEMATOCRIT" /> <statusCode code="completed" /> < effectiveTime value="839591194355" /> <value unit="%" xsi:type="PQ " value="31.7" /> <interpretationCode codeSystem="local" code="*" /> <referenceRange> <observationRange> <text>37.0- 47.0</text> </observationRange> </referenceRange> </ observation> </component> <component> <observation moodCode= "EVN" classCode="OBS"> <templateId root="06.27.840.1.098495.10..4.2 " /> <id nullFlavor="NA" /> <code codeSystem="local" code="PLT " displayName="PLATELET COUNT" /> <statusCode code="completed" /> <effectiveTime value="026950635804" /> <value unit="k/cumm" xsi: type="PQ" value="275" /> <referenceRange> <observationRange > <text>150-450</text> </observationRange> </ referenceRange> </observation> </component> </organizer> </entry > <entry> <organizer moodCode="EVN" classCode="BATTERY"> <templateId root="16.840.1.223243.10..22.4.1" /> <id nullFlavor="NA" /> <code codeSystem="local" code="PREG" displayName=" TEST, SERUM" /> < statusCode code="completed" /> <component> <observation moodCode= "EVN" classCode="OBS"> <templateId root="216.840.1.840419.1022.4.2 " /> <id nullFlavor="NA" /> <code codeSystem="local" code= "PREG" displayName=" TEST, SERUM" /> <statusCode code= "completed" /> <effectiveTime value="870157040687" /> <value unit="" xsi:type="PQ" value="NEGATIVE" /> <referenceRange> < observationRange> <text>NEGATIVE</text> </ observationRange> </referenceRange> </observation> </ component> </organizer> </entry> <entry> <organizer moodCode="EVN" classCode="BATTERY"> <templateId root="216.840.1.661945.22.4.1" /> <id nullFlavor="NA" /> <code codeSystem="local" code="PT" displayName= "PROTHROMBIN TIME WITH INR" /> <statusCode code="completed" /> < component> <observation moodCode="EVN" classCode="OBS"> < templateId root="216.840.1.863662.10..22.4.2" /> <id nullFlavor="NA " /> <code codeSystem="local" code="INRX" displayName="INTERNATIONAL NORMAL RATIO" /> <statusCode code="completed" /> < effectiveTime value="755565863190" /> <value unit="" xsi:type="PQ" value="1.1" /> <referenceRange> <observationRange> <text>0.9-1.1</text> </observationRange> </ referenceRange> </observation> </component> <component> <observation moodCode="EVN" classCode="OBS"> <templateId root= "16.840.1.885610.10..22.4.2" /> <id nullFlavor="NA" /> < code codeSystem="local" code="PTPAT" displayName="PROTHROMBIN TIME" /> <statusCode code="completed" /> <effectiveTime value="050825719877" /> <value unit="sec" xsi:type="PQ" value="12.3" /> < referenceRange> <observationRange> <text>10.0-12.9</text > </observationRange> </referenceRange> </observation > </component> </organizer> </entry> <entry> <organizer moodCode= "EVN" classCode="BATTERY"> <templateId root="216.840.1.016539.10..22.4.1 " /> <id nullFlavor="NA" /> <code codeSystem="local" code="PTT" displayName="PARTIAL THROMBOPLASTIN TIME" /> <statusCode code="completed" / > <component> <observation moodCode="EVN" classCode="OBS"> <templateId root="216.840.1.682628.10.20.22.4.2" /> <id nullFlavor="NA " /> <code codeSystem="local" code="PTT" displayName="PARTIAL THROMBOPLASTIN TIME" /> <statusCode code="completed" /> < effectiveTime value="709436834208" /> <value unit="sec" xsi:type="PQ" value="33" /> <referenceRange> <observationRange> <text>25-37</text> </observationRange> </referenceRange > </observation> </component> </organizer> </entry> <entry> <organizer moodCode="EVN" classCode="BATTERY"> <templateId root= "216.840.1.818570.22.4.1" /> <id nullFlavor="NA" /> <code codeSystem="local" code="METABC" displayName="METABOLIC PANEL, COMPREHN" /> <statusCode code="completed" /> <component> <observation moodCode= "EVN" classCode="OBS"> <templateId root="16.840.1.839584.02.28.22.4.2 " /> <id nullFlavor="NA" /> <code codeSystem="local" code="K" displayName="POTASSIUM" /> <statusCode code="completed" /> < effectiveTime value="342827142115" /> <value unit="mmol/L" xsi:type="PQ " value="3.1" /> <interpretationCode codeSystem="local" code="*" /> <referenceRange> <observationRange> <text>3.5-5.3 </text> </observationRange> </referenceRange> </ observation> </component> <component> <observation moodCode= "EVN" classCode="OBS"> <templateId root="840.1.098248.02.28.22.4.2 " /> <id nullFlavor="NA" /> <code codeSystem="local" code= "eGFR" displayName="EST GFR (MDRD)" /> <statusCode code="completed" /> <effectiveTime value="690361272902" /> <value unit="mL/min" xsi:type="PQ" value="> 60" /> <referenceRange> < observationRange> <text>> 59</text> </ observationRange> </referenceRange> </observation> </ component> <component> <observation moodCode="EVN" classCode="OBS"> <templateId root="06.27.840.1.257731.02.28.22.4.2" /> <id nullFlavor="NA" /> <code codeSystem="local" code="GAP" displayName= "ANION GAP" /> <statusCode code="completed" /> <effectiveTime value="877177549894" /> <value unit="mmol/L" xsi:type="PQ" value="11" / > <referenceRange> <observationRange> <text>5- 15</text> </observationRange> </referenceRange> </ observation> </component> <component> <observation moodCode= "EVN" classCode="OBS"> <templateId root="2.16.840.1.215911.10.20.22.4.2 " /> <id nullFlavor="NA" /> <code codeSystem="local" code= "eCrCl" displayName="EST CrCl (CG)" /> <statusCode code="completed" /> <effectiveTime value="" /> <value unit="mL/min" xsi:type="PQ" value="> 60" /> <referenceRange> < observationRange> <text>> 59</text> </ observationRange> </referenceRange> </observation> </ component> <component> <observation moodCode="EVN" classCode="OBS"> <templateId root="2.16.840.1.509097.10.20.22.4.2" /> <id nullFlavor="NA" /> <code codeSystem="local" code="GLU" displayName= "GLUCOSE" /> <statusCode code="completed" /> <effectiveTime value="967523539392" /> <value unit="mg/dL" xsi:type="PQ" value="82" / > <referenceRange> <observationRange> <text>70- 99</text> </observationRange> </referenceRange> </ observation> </component> <component> <observation moodCode= "EVN" classCode="OBS"> <templateId root="216.840.1.887520.10..22.4.2 " /> <id nullFlavor="NA" /> <code codeSystem="local" code="CA " displayName="CALCIUM" /> <statusCode code="completed" /> < effectiveTime value="421488868741" /> <value unit="mg/dL" xsi:type="PQ " value="9.0" /> <referenceRange> <observationRange> <text>8.5-10.1</text> </observationRange> </ referenceRange> </observation> </component> <component> <observation moodCode="EVN" classCode="OBS"> <templateId root= "216.840.1.307485.10..4.2" /> <id nullFlavor="NA" /> < code codeSystem="local" code="BUN" displayName="BLOOD UREA NITROGEN" /> <statusCode code="completed" /> <effectiveTime value="216872438415" / > <value unit="mg/dL" xsi:type="PQ" value="16" /> < referenceRange> <observationRange> <text>7-20</text> </observationRange> </referenceRange> </observation> </component> <component> <observation moodCode="EVN" classCode= "OBS"> <templateId root="216.840.1.941833.10..4.2" /> < id nullFlavor="NA" /> <code codeSystem="local" code="CREAT" displayName ="CREATININE" /> <statusCode code="completed" /> < effectiveTime value="928626724522" /> <value unit="mg/dL" xsi:type="PQ " value="0.9" /> <referenceRange> <observationRange> <text>0.6-1.0</text> </observationRange> </ referenceRange> </observation> </component> <component> <observation moodCode="EVN" classCode="OBS"> <templateId root= "216.840.1.521367.10..22.4.2" /> <id nullFlavor="NA" /> < code codeSystem="local" code="NA" displayName="SODIUM" /> <statusCode code="completed" /> <effectiveTime value="797540107193" /> < value unit="mmol/L" xsi:type="PQ" value="144" /> <referenceRange> <observationRange> <text>135-148</text> </ observationRange> </referenceRange> </observation> </ component> <component> <observation moodCode="EVN" classCode="OBS"> <templateId root="216.840.1.752848...4.2" /> <id nullFlavor="NA" /> <code codeSystem="local" code="CL" displayName= "CHLORIDE" /> <statusCode code="completed" /> <effectiveTime value="407426492376" /> <value unit="mmol/L" xsi:type="PQ" value="103" /> <referenceRange> <observationRange> <text>98 -110</text> </observationRange> </referenceRange> </ observation> </component> <component> <observation moodCode= "EVN" classCode="OBS"> <templateId root="16.840.1.901765.10..22.4.2 " /> <id nullFlavor="NA" /> <code codeSystem="local" code="AST " displayName="AST/SGOT" /> <statusCode code="completed" /> < effectiveTime value="137081306722" /> <value unit="Units/L" xsi:type= "PQ" value="14" /> <referenceRange> <observationRange> <text>10-37</text> </observationRange> </ referenceRange> </observation> </component> <component> <observation moodCode="EVN" classCode="OBS"> <templateId root= "216.840.1.804491.10..22.4.2" /> <id nullFlavor="NA" /> < code codeSystem="local" code="ALT" displayName="ALT/SGPT" /> < statusCode code="completed" /> <effectiveTime value="707244489323" /> <value unit="Units/L" xsi:type="PQ" value="9" /> < referenceRange> <observationRange> <text>< 66</text> </observationRange> </referenceRange> </observation > </component> <component> <observation moodCode="EVN" classCode="OBS"> <templateId root="06.27.840.1.764279.10.4.2" /> <id nullFlavor="NA" /> <code codeSystem="local" code="CO2" displayName="CARBON DIOXIDE" /> <statusCode code="completed" /> <effectiveTime value="554269398067" /> <value unit="mmol/L" xsi:type ="PQ" value="30" /> <referenceRange> <observationRange> <text>21-32</text> </observationRange> </ referenceRange> </observation> </component> <component> <observation moodCode="EVN" classCode="OBS"> <templateId root= "06.27.840.1.397018.10..4.2" /> <id nullFlavor="NA" /> < code codeSystem="local" code="TP" displayName="TOTAL PROTEIN" /> < statusCode code="completed" /> <effectiveTime value="948758273212" /> <value unit="gm/dL" xsi:type="PQ" value="6.8" /> < referenceRange> <observationRange> <text>6.4-8.2</text> </observationRange> </referenceRange> </observation > </component> <component> <observation moodCode="EVN" classCode="OBS"> <templateId root="216.840.1.327613.10..22.4.2" /> <id nullFlavor="NA" /> <code codeSystem="local" code="ALB" displayName="ALBUMIN" /> <statusCode code="completed" /> < effectiveTime value="167653748513" /> <value unit="gm/dL" xsi:type="PQ " value="3.6" /> <referenceRange> <observationRange> <text>3.4-5.0</text> </observationRange> </ referenceRange> </observation> </component> <component> <observation moodCode="EVN" classCode="OBS"> <templateId root= "16.840.1.818505.10...4.2" /> <id nullFlavor="NA" /> < code codeSystem="local" code="BILTOT" displayName="BILI TOTAL" /> < statusCode code="completed" /> <effectiveTime value="134994404100" /> <value unit="mg/dL" xsi:type="PQ" value="0.3" /> < referenceRange> <observationRange> <text>0.0-1.0</text> </observationRange> </referenceRange> </observation > </component> <component> <observation moodCode="EVN" classCode="OBS"> <templateId root="216.840.1.766468.10..22.4.2" /> <id nullFlavor="NA" /> <code codeSystem="local" code="ALKP" displayName="ALKALINE PHOSPHATASE TOTAL" /> <statusCode code="completed " /> <effectiveTime value="159541059915" /> <value unit="IU/L " xsi:type="PQ" value="66" /> <referenceRange> < observationRange> <text>45-117</text> </observationRange > </referenceRange> </observation> </component> </ organizer> </entry> <entry> <organizer moodCode="EVN" classCode="BATTERY"> <templateId root="216.840.1.948228.10.20.22.4.1" /> <id nullFlavor= "NA" /> <code codeSystem="local" code="TSH" displayName="THYROID STIM HORMONE (TSH)" /> <statusCode code="completed" /> <component> < observation moodCode="EVN" classCode="OBS"> <templateId root= "216.840.1.401380.10.20.22.4.2" /> <id nullFlavor="NA" /> < code codeSystem="local" code="TSH" displayName="THYROID STIM HORMONE (TSH)" /> <statusCode code="completed" /> <effectiveTime value= "075840977143" /> <value unit="uIU/mL" xsi:type="PQ" value="2.48" /> <referenceRange> <observationRange> <text>0.34- 4.82</text> </observationRange> </referenceRange> </ observation> </component> </organizer> </entry> <entry> <organizer moodCode="EVN" classCode="BATTERY"> <templateId root= "216.840.1.249938.10.20.22.4.1" /> <id nullFlavor="NA" /> <code codeSystem="local" code="ORD68" displayName="Urinalysis" /> <statusCode code="completed" /> <component> <observation moodCode="EVN" classCode="OBS"> <templateId root="216.840.1.269703.02.28.22.4.2" /> <id nullFlavor="NA" /> <code codeSystem="local" code="Djw6825 " displayName="Icotest" /> <statusCode code="completed" /> < effectiveTime value="668313023033" /> <value unit="" xsi:type="PQ" value="N/A" /> <interpretationCode codeSystem="local" code="A" /> <referenceRange> <observationRange> <text>Negative< /text> </observationRange> </referenceRange> </ observation> </component> <component> <observation moodCode= "EVN" classCode="OBS"> <templateId root="06.27.840.1.862490.02.28.224.2 " /> <id nullFlavor="NA" /> <code codeSystem="local" code= "Bfw750" displayName="Urine Crystals" /> <statusCode code="completed" / > <effectiveTime value="681121559087" /> <value unit="" xsi: type="PQ" value="Amorphous material: abundant/HPF" /> <referenceRange> <observationRange> <text /> </ observationRange> </referenceRange> </observation> </ component> <component> <observation moodCode="EVN" classCode="OBS"> <templateId root="216.840.1.178768.02.28.22.4.2" /> <id nullFlavor="NA" /> <code codeSystem="local" code="Zfh903" displayName= "Urine Volume" /> <statusCode code="completed" /> < effectiveTime value="562384649878" /> <value unit="" xsi:type="PQ" value="Urine Volume Sufficient (10mL)" /> <referenceRange> < observationRange> <text /> </observationRange> </referenceRange> </observation> </component> <component> <observation moodCode="EVN" classCode="OBS"> <templateId root= "16.840.1.829485.10..22.4.2" /> <id nullFlavor="NA" /> < code codeSystem="local" code="Oym961" displayName="Urine-Appearance" /> <statusCode code="completed" /> <effectiveTime value="234495224194" / > <value unit="" xsi:type="PQ" value="Cloudy" /> < interpretationCode codeSystem="local" code="A" /> <referenceRange> <observationRange> <text>Clear</text> </ observationRange> </referenceRange> </observation> </ component> <component> <observation moodCode="EVN" classCode="OBS"> <templateId root="06.27.840.1.447191.10..4.2" /> <id nullFlavor="NA" /> <code codeSystem="local" code="Gib781" displayName= "Urine-Bacteria" /> <statusCode code="completed" /> < effectiveTime value="097857720009" /> <value unit="" xsi:type="PQ" value="Trace" /> <interpretationCode codeSystem="local" code="A" /> <referenceRange> <observationRange> <text> </text > </observationRange> </referenceRange> </observation > </component> <component> <observation moodCode="EVN" classCode="OBS"> <templateId root="16.840.1.246853.10..22.4.2" /> <id nullFlavor="NA" /> <code codeSystem="local" code="Roe826" displayName="Urine-Bilirubin" /> <statusCode code="completed" /> <effectiveTime value="588095409699" /> <value unit="" xsi:type="PQ " value="Negative" /> <referenceRange> <observationRange> <text>Negative</text> </observationRange> </ referenceRange> </observation> </component> <component> <observation moodCode="EVN" classCode="OBS"> <templateId root= "216.840.1.693984.10.22.4.2" /> <id nullFlavor="NA" /> < code codeSystem="local" code="Xxp668" displayName="Urine-Blood" /> < statusCode code="completed" /> <effectiveTime value="865144894729" /> <value unit="" xsi:type="PQ" value="Negative" /> < referenceRange> <observationRange> <text>Negative</text > </observationRange> </referenceRange> </observation > </component> <component> <observation moodCode="EVN" classCode="OBS"> <templateId root="06.27.840.1.659705.22.4.2" /> <id nullFlavor="NA" /> <code codeSystem="local" code="Ykn541" displayName="Urine-Color" /> <statusCode code="completed" /> < effectiveTime value="146422204929" /> <value unit="" xsi:type="PQ" value="Yellow" /> <referenceRange> <observationRange> <text>Colorless-Lt. Yellow</text> </observationRange> </referenceRange> </observation> </component> <component> <observation moodCode="EVN" classCode="OBS"> <templateId root= "06.27.840.1.550417.02.28.224.2" /> <id nullFlavor="NA" /> < code codeSystem="local" code="Kkt639" displayName="Urine-Epithelial Cells" /> <statusCode code="completed" /> <effectiveTime value= "786214617884" /> <value unit="" xsi:type="PQ" value="5-10/HPF" /> <interpretationCode codeSystem="local" code="A" /> < referenceRange> <observationRange> <text> </text> </observationRange> </referenceRange> </observation> </component> <component> <observation moodCode="EVN" classCode="OBS "> <templateId root="2.16.840.1.714905.02.28.224.2" /> <id nullFlavor="NA" /> <code codeSystem="local" code="Ttt370" displayName= "Urine-Glucose" /> <statusCode code="completed" /> < effectiveTime value="632741275038" /> <value unit="" xsi:type="PQ" value="Negative" /> <referenceRange> <observationRange> <text>Negative</text> </observationRange> </ referenceRange> </observation> </component> <component> <observation moodCode="EVN" classCode="OBS"> <templateId root= "2.16.840.1.055143.02.28.22.4.2" /> <id nullFlavor="NA" /> < code codeSystem="local" code="Hts484" displayName="Urine-Ketones" /> < statusCode code="completed" /> <effectiveTime value="282491877533" /> <value unit="" xsi:type="PQ" value="Negative" /> < referenceRange> <observationRange> <text>Negative</text > </observationRange> </referenceRange> </observation > </component> <component> <observation moodCode="EVN" classCode="OBS"> <templateId root="216.840.1.918443.10..22.4.2" /> <id nullFlavor="NA" /> <code codeSystem="local" code="Ivl143" displayName="Urine-Leukocytes" /> <statusCode code="completed" /> <effectiveTime value="733439254515" /> <value unit="" xsi:type="PQ " value="1+" /> <interpretationCode codeSystem="local" code="A" /> <referenceRange> <observationRange> <text>Negative </text> </observationRange> </referenceRange> </ observation> </component> <component> <observation moodCode= "EVN" classCode="OBS"> <templateId root="216.840.1.857018...4.2 " /> <id nullFlavor="NA" /> <code codeSystem="local" code= "Dvd670" displayName="Urine-Nitrite" /> <statusCode code="completed" / > <effectiveTime value="178111006545" /> <value unit="" xsi: type="PQ" value="Negative" /> <referenceRange> < observationRange> <text>Negative</text> </ observationRange> </referenceRange> </observation> </ component> <component> <observation moodCode="EVN" classCode="OBS"> <templateId root="216.840.1.483958.10..22.4.2" /> <id nullFlavor="NA" /> <code codeSystem="local" code="Oib181" displayName= "Urine-Other" /> <statusCode code="completed" /> < effectiveTime value="303721992617" /> <value unit="" xsi:type="PQ" value=" Urine Saved if Culture Needed (48hrs from time of collection)" /> <interpretationCode codeSystem="local" code="A" /> <referenceRange > <observationRange> <text> </text> </ observationRange> </referenceRange> </observation> </ component> <component> <observation moodCode="EVN" classCode="OBS"> <templateId root="16.840.1.105780.10.22.4.2" /> <id nullFlavor="NA" /> <code codeSystem="local" code="Xap803" displayName= "Urine-pH" /> <statusCode code="completed" /> <effectiveTime value="938870232280" /> <value unit="" xsi:type="PQ" value="7.5" /> <referenceRange> <observationRange> <text>5-8.5</ text> </observationRange> </referenceRange> </ observation> </component> <component> <observation moodCode= "EVN" classCode="OBS"> <templateId root="06.27.840.1.037096.02.28.22.4.2 " /> <id nullFlavor="NA" /> <code codeSystem="local" code= "Zfj464" displayName="Urine-Protein" /> <statusCode code="completed" / > <effectiveTime value="892577537984" /> <value unit="" xsi: type="PQ" value="Negative" /> <referenceRange> < observationRange> <text>Negative</text> </ observationRange> </referenceRange> </observation> </ component> <component> <observation moodCode="EVN" classCode="OBS"> <templateId root="06.27.840.1.973431.1022.4.2" /> <id nullFlavor="NA" /> <code codeSystem="local" code="Jis575" displayName= "Urine-RBC" /> <statusCode code="completed" /> <effectiveTime value="808199879328" /> <value unit="" xsi:type="PQ" value="0-2/HPF" / > <interpretationCode codeSystem="local" code="A" /> < referenceRange> <observationRange> <text> </text> </observationRange> </referenceRange> </observation> </component> <component> <observation moodCode="EVN" classCode="OBS "> <templateId root="06.27.840.1.413588.10..22.4.2" /> <id nullFlavor="NA" /> <code codeSystem="local" code="Vzv821" displayName= "Urine-Specific [place]" /> <statusCode code="completed" /> < effectiveTime value="031623913349" /> <value unit="" xsi:type="PQ" value="1.020" /> <referenceRange> <observationRange> <text>1.000-1.030</text> </observationRange> </ referenceRange> </observation> </component> <component> <observation moodCode="EVN" classCode="OBS"> <templateId root= "06.27.840.1.461950.10..22.4.2" /> <id nullFlavor="NA" /> < code codeSystem="local" code="Rel347" displayName="Urine-WBC" /> < statusCode code="completed" /> <effectiveTime value="208303424333" /> <value unit="" xsi:type="PQ" value="2-5/HPF" /> < interpretationCode codeSystem="local" code="A" /> <referenceRange> <observationRange> <text> </text> </ observationRange> </referenceRange> </observation> </ component> <component> <observation moodCode="EVN" classCode="OBS"> <templateId root="06.27.840.1.178149.02.28.22.4.2" /> <id nullFlavor="NA" /> <code codeSystem="local" code="Xzj560" displayName= "Urobilinogen" /> <statusCode code="completed" /> < effectiveTime value="404922616479" /> <value unit="" xsi:type="PQ" value="0.2" /> <referenceRange> <observationRange> <text>0.2-1.0</text> </observationRange> </ referenceRange> </observation> </component> </organizer> </entry > <entry> <organizer moodCode="EVN" classCode="BATTERY"> <templateId root="840.1.873155.02.28.22.4.1" /> <id nullFlavor="NA" /> <code codeSystem="local" code="QIF960" displayName="XM (2) LRPC" /> <statusCode code="completed" /> <component> <observation moodCode="EVN" classCode="OBS"> <templateId root="06.27.840.1.871570.02.28.22.4.2" /> <id nullFlavor="NA" /> <code codeSystem="local" code="Ueq662" displayName="CROSSMATCH" /> <statusCode code="completed" /> < effectiveTime value="594299896185" /> <value unit="" xsi:type="PQ" value="COMPATIBLE X 2" /> <referenceRange> <observationRange > <text /> </observationRange> </referenceRange > </observation> </component> <component> <observation moodCode="EVN" classCode="OBS"> <templateId root= "06.27.840.1.276573.02.28.22.4.2" /> <id nullFlavor="NA" /> < code codeSystem="local" code="Res87" displayName="Hct" /> <statusCode code="completed" /> <effectiveTime value="538866000003" /> < value unit="%" xsi:type="PQ" value="26.9" /> <interpretationCode codeSystem="local" code="L" /> <referenceRange> < observationRange> <text>36.0-46.0</text> </ observationRange> </referenceRange> </observation> </ component> <component> <observation moodCode="EVN" classCode="OBS"> <templateId root="2.840.1.015146.10...4.2" /> <id nullFlavor="NA" /> <code codeSystem="local" code="Qob735" displayName= "Hgb" /> <statusCode code="completed" /> <effectiveTime value= "788399611503" /> <value unit="g/dL" xsi:type="PQ" value="7.6" /> <interpretationCode codeSystem="local" code="L" /> <referenceRange > <observationRange> <text>13.0-15.0</text> < /observationRange> </referenceRange> </observation> </ component> </organizer> </entry> <entry> <organizer moodCode="EVN" classCode="BATTERY"> <templateId root="06.27.840.1.265129.10..22.4.1" /> <id nullFlavor="NA" /> <code codeSystem="local" code="YOA8080" displayName="Leukoreduced Packed RBC Unit Checkout" /> <statusCode code= "completed" /> <component> <observation moodCode="EVN" classCode= "OBS"> <templateId root="06.27.840.1.983162.10.20.22.4.2" /> < id nullFlavor="NA" /> <code codeSystem="local" code="Czs450" displayName="LRPRBC Checkout" /> <statusCode code="completed" /> <effectiveTime value="065923318851" /> <value unit="" xsi:type="PQ " value="Checked Out." /> <referenceRange> <observationRange > <text /> </observationRange> </referenceRange > </observation> </component> </organizer> </entry> <entry> <organizer moodCode="EVN" classCode="BATTERY"> <templateId root= "216.840.1.608110.10..22.4.1" /> <id nullFlavor="NA" /> <code codeSystem="local" code="YAM420" displayName="Ferritin" /> <statusCode code ="completed" /> <component> <observation moodCode="EVN" classCode= "OBS"> <templateId root="216.840.1.091885.10..22.4.2" /> < id nullFlavor="NA" /> <code codeSystem="local" code="Zjz345" displayName="Ferritin" /> <statusCode code="completed" /> < effectiveTime value="998152665303" /> <value unit="ng/mL" xsi:type="PQ " value="3.90" /> <interpretationCode codeSystem="local" code="L" /> <referenceRange> <observationRange> <text>4.63- 204.00</text> </observationRange> </referenceRange> < /observation> </component> </organizer> </entry> <entry> < organizer moodCode="EVN" classCode="BATTERY"> <templateId root= "16.840.1.832699.10..22.4.1" /> <id nullFlavor="NA" /> <code codeSystem="local" code="TVW025" displayName="VIT B-12" /> <statusCode code ="completed" /> <component> <observation moodCode="EVN" classCode= "OBS"> <templateId root="216.840.1.925490.10..22.4.2" /> < id nullFlavor="NA" /> <code codeSystem="local" code="Aly875" displayName="Vitamin B12" /> <statusCode code="completed" /> < effectiveTime value="465774427474" /> <value unit="pg/mL" xsi:type="PQ " value="221.00" /> <referenceRange> <observationRange> <text>213.00-816.00</text> </observationRange> </ referenceRange> </observation> </component> </organizer> </entry > <entry> <organizer moodCode="EVN" classCode="BATTERY"> <templateId root="216.840.1.397886.10..22.4.1" /> <id nullFlavor="NA" /> <code codeSystem="local" code="KJZ396" displayName="Folate" /> <statusCode code= "completed" /> <component> <observation moodCode="EVN" classCode= "OBS"> <templateId root="216.840.1.432903.10..22.4.2" /> < id nullFlavor="NA" /> <code codeSystem="local" code="Fgw738" displayName="Folate" /> <statusCode code="completed" /> < effectiveTime value="826635520302" /> <value unit="ng/mL" xsi:type="PQ " value="15.40" /> <referenceRange> <observationRange> <text>7.00-31.40</text> </observationRange> </ referenceRange> </observation> </component> </organizer> </entry > <entry> <organizer moodCode="EVN" classCode="BATTERY"> <templateId root="216.840.1.251157.10..4.1" /> <id nullFlavor="NA" /> <code codeSystem="local" code="NLV6982" displayName="Leukoreduced Packed RBC Unit Checkout" /> <statusCode code="completed" /> <component> < observation moodCode="EVN" classCode="OBS"> <templateId root= "216.840.1.347188...4.2" /> <id nullFlavor="NA" /> < code codeSystem="local" code="Bmr993" displayName="LRPRBC Checkout" /> <statusCode code="completed" /> <effectiveTime value="498979783677" /> <value unit="" xsi:type="PQ" value="Checked Out." /> < referenceRange> <observationRange> <text /> < /observationRange> </referenceRange> </observation> </ component> </organizer> </entry> <entry> <organizer moodCode="EVN" classCode="BATTERY"> <templateId root="216.840.1.039164.10..4.1" /> <id nullFlavor="NA" /> <code codeSystem="local" code="UQL947" displayName="Rapid Drug Screen,Medical" /> <statusCode code="completed" /> <component> <observation moodCode="EVN" classCode="OBS"> < templateId root="216.840.1.958479.10..4.2" /> <id nullFlavor="NA " /> <code codeSystem="local" code="Xiq223" displayName="Amphetamine" / > <statusCode code="completed" /> <effectiveTime value= "601366090735" /> <value unit="" xsi:type="PQ" value="NEGATIVE" /> <referenceRange> <observationRange> <text>NEGATIVE </text> </observationRange> </referenceRange> </ observation> </component> <component> <observation moodCode= "EVN" classCode="OBS"> <templateId root="16.840.1.198995.02.28.22.4.2 " /> <id nullFlavor="NA" /> <code codeSystem="local" code= "Gou564" displayName="Barbiturates" /> <statusCode code="completed" /> <effectiveTime value="075303820549" /> <value unit="" xsi: type="PQ" value="NEGATIVE" /> <referenceRange> < observationRange> <text>NEGATIVE</text> </ observationRange> </referenceRange> </observation> </ component> <component> <observation moodCode="EVN" classCode="OBS"> <templateId root="06.27.840.1.596450.02.28.22.4.2" /> <id nullFlavor="NA" /> <code codeSystem="local" code="Uvf524" displayName= "Benzodiazepines" /> <statusCode code="completed" /> < effectiveTime value="927819147161" /> <value unit="" xsi:type="PQ" value="NEGATIVE" /> <referenceRange> <observationRange> <text>NEGATIVE</text> </observationRange> </ referenceRange> </observation> </component> <component> <observation moodCode="EVN" classCode="OBS"> <templateId root= "16.840.1.096676.22.4.2" /> <id nullFlavor="NA" /> < code codeSystem="local" code="Tyq481" displayName="Cocaine" /> < statusCode code="completed" /> <effectiveTime value="452727495753" /> <value unit="" xsi:type="PQ" value="NEGATIVE" /> < referenceRange> <observationRange> <text>NEGATIVE</text > </observationRange> </referenceRange> </observation > </component> <component> <observation moodCode="EVN" classCode="OBS"> <templateId root="16.840.1.412786.02.28.22.4.2" /> <id nullFlavor="NA" /> <code codeSystem="local" code="Tlw941" displayName="Marijuana" /> <statusCode code="completed" /> < effectiveTime value="153263108792" /> <value unit="" xsi:type="PQ" value="NEGATIVE" /> <referenceRange> <observationRange> <text>NEGATIVE</text> </observationRange> </ referenceRange> </observation> </component> <component> <observation moodCode="EVN" classCode="OBS"> <templateId root= "06.27.840.1.175843.02.28.22.4.2" /> <id nullFlavor="NA" /> < code codeSystem="local" code="Bzy868" displayName="Methylenedioxymethamphetamine " /> <statusCode code="completed" /> <effectiveTime value= "422161105964" /> <value unit="" xsi:type="PQ" value="NEGATIVE" /> <referenceRange> <observationRange> <text>NEGATIVE </text> </observationRange> </referenceRange> </ observation> </component> <component> <observation moodCode= "EVN" classCode="OBS"> <templateId root="16.840.1.764900.02.28.22.4.2 " /> <id nullFlavor="NA" /> <code codeSystem="local" code= "Nyl074" displayName="Opiates" /> <statusCode code="completed" /> <effectiveTime value="394287664034" /> <value unit="" xsi:type="PQ " value="NEGATIVE" /> <referenceRange> <observationRange> <text>NEGATIVE</text> </observationRange> </ referenceRange> </observation> </component> <component> <observation moodCode="EVN" classCode="OBS"> <templateId root= "06.27.840.1.841011.10.22.4.2" /> <id nullFlavor="NA" /> < code codeSystem="local" code="Sql354" displayName="Oxycodone" /> < statusCode code="completed" /> <effectiveTime value="807029638669" /> <value unit="" xsi:type="PQ" value="NEGATIVE" /> < referenceRange> <observationRange> <text>NEGATIVE</text > </observationRange> </referenceRange> </observation > </component> <component> <observation moodCode="EVN" classCode="OBS"> <templateId root="06.27.840.1.643185.10..4.2" /> <id nullFlavor="NA" /> <code codeSystem="local" code="Nhl801" displayName="Phencyclidine" /> <statusCode code="completed" /> <effectiveTime value="522639470928" /> <value unit="" xsi:type="PQ" value="NEGATIVE" /> <referenceRange> <observationRange> <text>NEGATIVE</text> </observationRange> </ referenceRange> </observation> </component> <component> <observation moodCode="EVN" classCode="OBS"> <templateId root= "06.27.840.1.156113.4.2" /> <id nullFlavor="NA" /> < code codeSystem="local" code="Xwl796" displayName="Propoxyphene" /> < statusCode code="completed" /> <effectiveTime value="958309931984" /> <value unit="" xsi:type="PQ" value="NEGATIVE" /> < referenceRange> <observationRange> <text>NEGATIVE</text > </observationRange> </referenceRange> </observation > </component> <component> <observation moodCode="EVN" classCode="OBS"> <templateId root="16.840.1.433005.02.28.224.2" /> <id nullFlavor="NA" /> <code codeSystem="local" code="Fgd394" displayName="Tricyclic Antidepressant" /> <statusCode code="completed" /> <effectiveTime value="180864526470" /> <value unit="" xsi: type="PQ" value="NEGATIVE" /> <referenceRange> < observationRange> <text>NEGATIVE</text> </ observationRange> </referenceRange> </observation> </ component> </organizer> </entry> <entry> <organizer moodCode="EVN" classCode="BATTERY"> <templateId root="16.840.1.240679.02.28.22.4.1" /> <id nullFlavor="NA" /> <code codeSystem="local" code="ORD92" displayName="Surgical Pathology" /> <statusCode code="completed" /> < component> <observation moodCode="EVN" classCode="OBS"> < templateId root="16.840.1.867494.02.28.22.4.2" /> <id nullFlavor="NA " /> <code codeSystem="local" code="Jca0358" displayName="Surg Path" / > <statusCode code="completed" /> <effectiveTime value= "349694461885" /> <value unit="" xsi:type="PQ" value="Sent to [facility]" /> <referenceRange> <observationRange> <text /> </observationRange> </referenceRange> </ observation> </component> </organizer> </entry> <entry> <organizer moodCode="EVN" classCode="BATTERY"> <templateId root= "06.27.840.1.098059.10.22.4.1" /> <id nullFlavor="NA" /> <code codeSystem="local" code="APF752" displayName="IFOBT Occult Blood" /> < statusCode code="completed" /> <component> <observation moodCode= "EVN" classCode="OBS"> <templateId root="06.27.840.1.902995.10..4.2 " /> <id nullFlavor="NA" /> <code codeSystem="local" code= "Aot858" displayName="IFOBT Occult Blood" /> <statusCode code= "completed" /> <effectiveTime value="191014179044" /> <value unit="" xsi:type="PQ" value="NEGATIVE" /> <referenceRange> < observationRange> <text>Negative</text> </ observationRange> </referenceRange> </observation> </ component> </organizer> </entry> <entry> <organizer moodCode="EVN" classCode="BATTERY"> <templateId root="06.27.840.1.268873.10...4.1" /> <id nullFlavor="NA" /> <code codeSystem="local" code="OWY652" displayName="HH" /> <statusCode code="completed" /> <component> <observation moodCode="EVN" classCode="OBS"> <templateId root= "06.27.830.1.158261.10..22.4.2" /> <id nullFlavor="NA" /> < code codeSystem="local" code="Res87" displayName="Hct" /> <statusCode code="completed" /> <effectiveTime value="989532626071" /> < value unit="%" xsi:type="PQ" value="31.7" /> <interpretationCode codeSystem="local" code="L" /> <referenceRange> < observationRange> <text>36.0-46.0</text> </ observationRange> </referenceRange> </observation> </ component> <component> <observation moodCode="EVN" classCode="OBS"> <templateId root="06.27.840.1.227015.02.28.22.4.2" /> <id nullFlavor="NA" /> <code codeSystem="local" code="Wes920" displayName= "Hgb" /> <statusCode code="completed" /> <effectiveTime value= "817894449513" /> <value unit="g/dL" xsi:type="PQ" value="9.4" /> <interpretationCode codeSystem="local" code="L" /> <referenceRange > <observationRange> <text>13.0-15.0</text> < /observationRange> </referenceRange> </observation> </ component> </organizer> </entry> <entry> <organizer moodCode="EVN" classCode="BATTERY"> <templateId root="216.840.1.440198.10.20.22.4.1" /> <id nullFlavor="NA" /> <code codeSystem="local" code="WHB875" displayName="IFOBT Occult Blood" /> <statusCode code="completed" /> < component> <observation moodCode="EVN" classCode="OBS"> < templateId root="216.840.1.870560.10..4.2" /> <id nullFlavor="NA " /> <code codeSystem="local" code="Ixo751" displayName="IFOBT Occult Blood" /> <statusCode code="completed" /> <effectiveTime value ="272396504268" /> <value unit="" xsi:type="PQ" value="NEGATIVE" /> <referenceRange> <observationRange> <text> Negative</text> </observationRange> </referenceRange> </observation> </component> </organizer> </entry> <entry> < organizer moodCode="EVN" classCode="BATTERY"> <templateId root= "16.840.1.436363.02.28.22.4.1" /> <id nullFlavor="NA" /> <code codeSystem="local" code="ORD2" displayName="CBC with Auto Diff" /> < statusCode code="completed" /> <component> <observation moodCode= "EVN" classCode="OBS"> <templateId root="216.840.1.938422.10..4.2 " /> <id nullFlavor="NA" /> <code codeSystem="local" code= "Jud216" displayName="Baso%" /> <statusCode code="completed" /> <effectiveTime value="824074566522" /> <value unit="%" xsi: type="PQ" value="1.10" /> <referenceRange> <observationRange > <text>0.00-2.50</text> </observationRange> </ referenceRange> </observation> </component> <component> <observation moodCode="EVN" classCode="OBS"> <templateId root= "216.840.1.704478.10.4.2" /> <id nullFlavor="NA" /> < code codeSystem="local" code="Pxd509" displayName="Eos" /> <statusCode code="completed" /> <effectiveTime value="023353087665" /> < value unit="K/uL" xsi:type="PQ" value="0.3" /> <referenceRange> <observationRange> <text>0.0-0.7</text> </ observationRange> </referenceRange> </observation> </ component> <component> <observation moodCode="EVN" classCode="OBS"> <templateId root="2.16.840.1.967464.02.28.22.4.2" /> <id nullFlavor="NA" /> <code codeSystem="local" code="Jxx367" displayName= "Eos%" /> <statusCode code="completed" /> <effectiveTime value="" /> <value unit="%" xsi:type="PQ" value="4.2" / > <referenceRange> <observationRange> <text>0.0 -7.0</text> </observationRange> </referenceRange> </ observation> </component> <component> <observation moodCode= "EVN" classCode="OBS"> <templateId root="2.16.840.1.417112.02.28.22.4.2 " /> <id nullFlavor="NA" /> <code codeSystem="local" code= "Res87" displayName="Hct" /> <statusCode code="completed" /> < effectiveTime value="039515371436" /> <value unit="%" xsi:type="PQ " value="34.3" /> <interpretationCode codeSystem="local" code="L" /> <referenceRange> <observationRange> <text>36.0- 46.0</text> </observationRange> </referenceRange> </ observation> </component> <component> <observation moodCode= "EVN" classCode="OBS"> <templateId root="216.840.1.913430.10.22.4.2 " /> <id nullFlavor="NA" /> <code codeSystem="local" code= "Nok300" displayName="Hgb" /> <statusCode code="completed" /> <effectiveTime value="" /> <value unit="g/dL" xsi:type="PQ " value="10.5" /> <interpretationCode codeSystem="local" code="L" /> <referenceRange> <observationRange> <text>13.0- 15.0</text> </observationRange> </referenceRange> </ observation> </component> <component> <observation moodCode= "EVN" classCode="OBS"> <templateId root="216.840.1.083212.02.28.22.4.2 " /> <id nullFlavor="NA" /> <code codeSystem="local" code= "Oxy071" displayName="Lym" /> <statusCode code="completed" /> <effectiveTime value="831679892282" /> <value unit="K/uL" xsi:type="PQ " value="1.98" /> <referenceRange> <observationRange> <text>0.60-3.40</text> </observationRange> </ referenceRange> </observation> </component> <component> <observation moodCode="EVN" classCode="OBS"> <templateId root= "216.840.1.290097.10.2022.4.2" /> <id nullFlavor="NA" /> < code codeSystem="local" code="Kuh812" displayName="Lym%" /> < statusCode code="completed" /> <effectiveTime value="103703643667" /> <value unit="%" xsi:type="PQ" value="26.9" /> < referenceRange> <observationRange> <text>10.0-50.0</text > </observationRange> </referenceRange> </observation > </component> <component> <observation moodCode="EVN" classCode="OBS"> <templateId root="2.16.840.1.971411.10..22.4.2" /> <id nullFlavor="NA" /> <code codeSystem="local" code="Res89" displayName="MCH" /> <statusCode code="completed" /> < effectiveTime value="223331709682" /> <value unit="pg" xsi:type="PQ" value="22.5" /> <interpretationCode codeSystem="local" code="L" /> <referenceRange> <observationRange> <text>27.0- 31.0</text> </observationRange> </referenceRange> </ observation> </component> <component> <observation moodCode= "EVN" classCode="OBS"> <templateId root="216.840.1.625625.10.20.22.4.2 " /> <id nullFlavor="NA" /> <code codeSystem="local" code= "Res90" displayName="MCHC" /> <statusCode code="completed" /> <effectiveTime value="077424239860" /> <value unit="g/dL" xsi:type="PQ " value="30.6" /> <interpretationCode codeSystem="local" code="L" /> <referenceRange> <observationRange> <text>32.0- 36.0</text> </observationRange> </referenceRange> </ observation> </component> <component> <observation moodCode= "EVN" classCode="OBS"> <templateId root="16.840.1.973999.10.20.22.4.2 " /> <id nullFlavor="NA" /> <code codeSystem="local" code= "Res88" displayName="MCV" /> <statusCode code="completed" /> < effectiveTime value="" /> <value unit="fL" xsi:type="PQ" value="73.4" /> <interpretationCode codeSystem="local" code="L" /> <referenceRange> <observationRange> <text>80.0- 97.0</text> </observationRange> </referenceRange> </ observation> </component> <component> <observation moodCode= "EVN" classCode="OBS"> <templateId root="06.27.840.1.903191.10.22.4.2 " /> <id nullFlavor="NA" /> <code codeSystem="local" code= "Pol134" displayName="Car[place]ou%" /> <statusCode code="completed" /> <effectiveTime value="" /> <value unit="%" xsi: type="PQ" value="7.6" /> <referenceRange> <observationRange > <text>0.0-12.0</text> </observationRange> </ referenceRange> </observation> </component> <component> <observation moodCode="EVN" classCode="OBS"> <templateId root= "06.27.840.1.621912.10..22.4.2" /> <id nullFlavor="NA" /> < code codeSystem="local" code="Ehi950" displayName="MPV" /> <statusCode code="completed" /> <effectiveTime value="" /> < value unit="fL" xsi:type="PQ" value="11.1" /> <interpretationCode codeSystem="local" code="H" /> <referenceRange> < observationRange> <text>7.4-10.0</text> </ observationRange> </referenceRange> </observation> </ component> <component> <observation moodCode="EVN" classCode="OBS"> <templateId root="216.840.1.179976.10.20.22.4.2" /> <id nullFlavor="NA" /> <code codeSystem="local" code="Uya613" displayName= "Julianne%" /> <statusCode code="completed" /> <effectiveTime value="081213917129" /> <value unit="%" xsi:type="PQ" value="60.2" /> <referenceRange> <observationRange> <text> 37.0-80.0</text> </observationRange> </referenceRange> </observation> </component> <component> <observation moodCode="EVN" classCode="OBS"> <templateId root= "06.27.840.1.069855.1022.4.2" /> <id nullFlavor="NA" /> < code codeSystem="local" code="Res97" displayName="Plt" /> <statusCode code="completed" /> <effectiveTime value="611462468898" /> < value unit="K/uL" xsi:type="PQ" value="222" /> <referenceRange> <observationRange> <text>150-400</text> </ observationRange> </referenceRange> </observation> </ component> <component> <observation moodCode="EVN" classCode="OBS"> <templateId root="16.840.1.407015.10.20.22.4.2" /> <id nullFlavor="NA" /> <code codeSystem="local" code="Umm510" displayName= "RBC" /> <statusCode code="completed" /> <effectiveTime value= "053268003655" /> <value unit="M/uL" xsi:type="PQ" value="4.67" /> <referenceRange> <observationRange> <text>3.60- 5.00</text> </observationRange> </referenceRange> </ observation> </component> <component> <observation moodCode= "EVN" classCode="OBS"> <templateId root="2.16.840.1.039275.10.20.22.4.2 " /> <id nullFlavor="NA" /> <code codeSystem="local" code= "Res91" displayName="RDW" /> <statusCode code="completed" /> < effectiveTime value="144432629686" /> <value unit="%" xsi:type="PQ " value="22.7" /> <interpretationCode codeSystem="local" code="H" /> <referenceRange> <observationRange> <text>11.6- 14.8</text> </observationRange> </referenceRange> </ observation> </component> <component> <observation moodCode= "EVN" classCode="OBS"> <templateId root="2.16.840.1.392653.10.20.22.4.2 " /> <id nullFlavor="NA" /> <code codeSystem="local" code= "Res98" displayName="WBC" /> <statusCode code="completed" /> < effectiveTime value="377044567006" /> <value unit="K/uL" xsi:type="PQ" value="7.36" /> <referenceRange> <observationRange> <text>5.00-10.00</text> </observationRange> </ referenceRange> </observation> </component> <component> <observation moodCode="EVN" classCode="OBS"> <templateId root= "16.840.1.936297.10.2022.4.2" /> <id nullFlavor="NA" /> < code codeSystem="local" code="Res99" displayName="Julianne" /> <statusCode code="completed" /> <effectiveTime value="" /> < value unit="K/uL" xsi:type="PQ" value="4.43" /> <referenceRange> <observationRange> <text>2.00-6.90</text> </ observationRange> </referenceRange> </observation> </ component> <component> <observation moodCode="EVN" classCode="OBS"> <templateId root="06.27.840.1.270340.22.4.2" /> <id nullFlavor="NA" /> <code codeSystem="local" code="Fxy183" displayName= "Caribou" /> <statusCode code="completed" /> <effectiveTime value ="" /> <value unit="K/uL" xsi:type="PQ" value="0.6" /> <referenceRange> <observationRange> <text>0.0-0.9< /text> </observationRange> </referenceRange> </ observation> </component> <component> <observation moodCode= "EVN" classCode="OBS"> <templateId root="06.27.840.1.714044.102022.4.2 " /> <id nullFlavor="NA" /> <code codeSystem="local" code= "Qvf628" displayName="Baso" /> <statusCode code="completed" /> <effectiveTime value="" /> <value unit="K/uL" xsi:type= "PQ" value="0.1" /> <referenceRange> <observationRange> <text>0.0-0.2</text> </observationRange> </ referenceRange> </observation> </component> </organizer> </entry > <entry> <organizer moodCode="EVN" classCode="BATTERY"> <templateId root="216.840.1.069261.10..22.4.1" /> <id nullFlavor="NA" /> <code codeSystem="local" code="60219-2" displayName="Complete urinalysis with reflex to culture" /> <statusCode code="completed" /> <component> < observation moodCode="EVN" classCode="OBS"> <templateId root= "216.840.1.709865.10...4.2" /> <id nullFlavor="NA" /> < code codeSystem="local" code="5778-6" displayName="Urine color determination" / > <statusCode code="completed" /> <effectiveTime value= "164765206121" /> <value unit="" xsi:type="PQ" value="YELLOW" /> <referenceRange> <observationRange> <text>NRG</text > </observationRange> </referenceRange> </observation > </component> <component> <observation moodCode="EVN" classCode="OBS"> <templateId root="216.840.1.675229.10..22.4.2" /> <id nullFlavor="NA" /> <code codeSystem="local" code="46026-7 " displayName="Urine clarity determination" /> <statusCode code= "completed" /> <effectiveTime value="568990987039" /> <value unit="" xsi:type="PQ" value="SLIGHTLY CLOUDY" /> <referenceRange> <observationRange> <text>NRG</text> </ observationRange> </referenceRange> </observation> </ component> <component> <observation moodCode="EVN" classCode="OBS"> <templateId root="216.840.1.790856.10.20.22.4.2" /> <id nullFlavor="NA" /> <code codeSystem="local" code="5803-2" displayName= "Urine pH measurement by test strip" /> <statusCode code="completed" / > <effectiveTime value="257137928915" /> <value unit="" xsi: type="PQ" value="6.5" /> <referenceRange> <observationRange > <text>5-9</text> </observationRange> </ referenceRange> </observation> </component> <component> <observation moodCode="EVN" classCode="OBS"> <templateId root= "216.840.1.677448.10..22.4.2" /> <id nullFlavor="NA" /> < code codeSystem="local" code="5811-5" displayName="Specific gravity of urine by test strip" /> <statusCode code="completed" /> <effectiveTime value="253557391947" /> <value unit="" xsi:type="PQ" value="1.020" /> <referenceRange> <observationRange> <text>1.016 -1.022</text> </observationRange> </referenceRange> < /observation> </component> <component> <observation moodCode= "EVN" classCode="OBS"> <templateId root="16.840.1.262245.10.20.22.4.2 " /> <id nullFlavor="NA" /> <code codeSystem="local" code= "81595-9" displayName="Urine protein assay by test strip, semi-quantitative" /> <statusCode code="completed" /> <effectiveTime value= "733702252447" /> <value unit="" xsi:type="PQ" value="NEGATIVE" /> <referenceRange> <observationRange> <text>NEGATIVE </text> </observationRange> </referenceRange> </ observation> </component> <component> <observation moodCode= "EVN" classCode="OBS"> <templateId root="06.27.840.1.138741.10.20.22.4.2 " /> <id nullFlavor="NA" /> <code codeSystem="local" code= "92766-1" displayName="Urine glucose detection by automated test strip" /> <statusCode code="completed" /> <effectiveTime value="921540559576 " /> <value unit="" xsi:type="PQ" value="NEGATIVE" /> < referenceRange> <observationRange> <text>NEGATIVE</text > </observationRange> </referenceRange> </observation > </component> <component> <observation moodCode="EVN" classCode="OBS"> <templateId root="06.27.840.1.463228.10.22.4.2" /> <id nullFlavor="NA" /> <code codeSystem="local" code="22842-4 " displayName="Erythrocytes detection in urine sediment by light microscopy" /> <statusCode code="completed" /> <effectiveTime value= "265272992379" /> <value unit="" xsi:type="PQ" value="1+" /> < interpretationCode codeSystem="local" code="*" /> <referenceRange> <observationRange> <text>NEGATIVE</text> </ observationRange> </referenceRange> </observation> </ component> <component> <observation moodCode="EVN" classCode="OBS"> <templateId root="06.27.840.1.992107.10.20.22.4.2" /> <id nullFlavor="NA" /> <code codeSystem="local" code="63138-0" displayName= "Urine ketones detection by automated test strip" /> <statusCode code= "completed" /> <effectiveTime value="492824643023" /> <value unit="" xsi:type="PQ" value="NEGATIVE" /> <referenceRange> < observationRange> <text>NEGATIVE</text> </ observationRange> </referenceRange> </observation> </ component> <component> <observation moodCode="EVN" classCode="OBS"> <templateId root="216.840.1.052013.10..22.4.2" /> <id nullFlavor="NA" /> <code codeSystem="local" code="5802-4" displayName= "Urine nitrite detection by test strip" /> <statusCode code="completed " /> <effectiveTime value="128749395331" /> <value unit="" xsi :type="PQ" value="NEGATIVE" /> <referenceRange> < observationRange> <text>NEGATIVE</text> </ observationRange> </referenceRange> </observation> </ component> <component> <observation moodCode="EVN" classCode="OBS"> <templateId root="16.840.1.431716.10..22.4.2" /> <id nullFlavor="NA" /> <code codeSystem="local" code="5770-3" displayName= "Urine total bilirubin detection by test strip" /> <statusCode code= "completed" /> <effectiveTime value="404551625080" /> <value unit="" xsi:type="PQ" value="NEGATIVE" /> <referenceRange> < observationRange> <text>NEGATIVE</text> </ observationRange> </referenceRange> </observation> </ component> <component> <observation moodCode="EVN" classCode="OBS"> <templateId root="216.840.1.442643.10..4.2" /> <id nullFlavor="NA" /> <code codeSystem="local" code="27414-2" displayName= "Urine urobilinogen measurement by automated test strip (mass/volume)" /> <statusCode code="completed" /> <effectiveTime value="360060496460 " /> <value unit="" xsi:type="PQ" value="NORMAL" /> < referenceRange> <observationRange> <text>NORMAL</text> </observationRange> </referenceRange> </observation> </component> <component> <observation moodCode="EVN" classCode ="OBS"> <templateId root="2.16.840.1.183777.10.4.2" /> < id nullFlavor="NA" /> <code codeSystem="local" code="5799-2" displayName="Urine leukocyte esterase detection by dipstick" /> < statusCode code="completed" /> <effectiveTime value="113068352572" /> <value unit="" xsi:type="PQ" value="NEGATIVE" /> < referenceRange> <observationRange> <text>NEGATIVE</text > </observationRange> </referenceRange> </observation > </component> <component> <observation moodCode="EVN" classCode="OBS"> <templateId root="2.16.840.1.536733.10.4.2" /> <id nullFlavor="NA" /> <code codeSystem="local" code="61639-7 " displayName="Automated urine sediment erythrocyte count by microscopy (number/ high power field)" /> <statusCode code="completed" /> < effectiveTime value="546390382684" /> <value unit="[HPF]" xsi:type="PQ " value="" /> <referenceRange> <observationRange> <text>NRG</text> </observationRange> </referenceRange> </observation> </component> <component> <observation moodCode="EVN" classCode="OBS"> <templateId root= "216.840.1.627643.10..22.4.2" /> <id nullFlavor="NA" /> < code codeSystem="local" code="5821-4" displayName="Automated urine sediment leukocyte count by microscopy (number/high power field)" /> < statusCode code="completed" /> <effectiveTime value="061621466385" /> <value unit="" xsi:type="PQ" value="NONE" /> <referenceRange> <observationRange> <text>NRG</text> </ observationRange> </referenceRange> </observation> </ component> <component> <observation moodCode="EVN" classCode="OBS"> <templateId root="216.840.1.085753.10..4.2" /> <id nullFlavor="NA" /> <code codeSystem="local" code="44963-0" displayName= "Bacteria detection in urine sediment by light microscopy" /> < statusCode code="completed" /> <effectiveTime value="949215376887" /> <value unit="" xsi:type="PQ" value="TRACE" /> <referenceRange > <observationRange> <text>NRG</text> </ observationRange> </referenceRange> </observation> </ component> <component> <observation moodCode="EVN" classCode="OBS"> <templateId root="216.840.1.605576.10..22.4.2" /> <id nullFlavor="NA" /> <code codeSystem="local" code="54914-2" displayName= "Squamous epithelial cells detection in urine sediment by light microscopy" /> <statusCode code="completed" /> <effectiveTime value= "095892826622" /> <value unit="" xsi:type="PQ" value="5-10" /> <referenceRange> <observationRange> <text>NRG</text> </observationRange> </referenceRange> </observation> </component> <component> <observation moodCode="EVN" classCode ="OBS"> <templateId root="216.840.1.119564.10.20.22.4.2" /> < id nullFlavor="NA" /> <code codeSystem="local" code="03739-7" displayName="Crystals detection in urine sediment by light microscopy" /> <statusCode code="completed" /> <effectiveTime value="339730815088 " /> <value unit="" xsi:type="PQ" value="PRESENT" /> < interpretationCode codeSystem="local" code="*" /> <referenceRange> <observationRange> <text>NRG</text> </ observationRange> </referenceRange> </observation> </ component> <component> <observation moodCode="EVN" classCode="OBS"> <templateId root="06.27.840.1.039120.02.28.22.4.2" /> <id nullFlavor="NA" /> <code codeSystem="local" code="15399-9" displayName= "Casts detection in urine sediment by light microscopy" /> <statusCode code="completed" /> <effectiveTime value="905193865969" /> < value unit="" xsi:type="PQ" value="NONE" /> <referenceRange> <observationRange> <text>NRG</text> </observationRange > </referenceRange> </observation> </component> < component> <observation moodCode="EVN" classCode="OBS"> < templateId root="16.840.1.829215.10.20.22.4.2" /> <id nullFlavor="NA " /> <code codeSystem="local" code="8247-9" displayName="Mucus detection in urine sediment by light microscopy" /> <statusCode code= "completed" /> <effectiveTime value="956737451961" /> <value unit="" xsi:type="PQ" value="SMALL" /> <interpretationCode codeSystem= "local" code="*" /> <referenceRange> <observationRange> <text>NRG</text> </observationRange> </ referenceRange> </observation> </component> <component> <observation moodCode="EVN" classCode="OBS"> <templateId root= "2.16.840.1.347923.10..22.4.2" /> <id nullFlavor="NA" /> < code codeSystem="local" code="14938-5" displayName="Complete urinalysis with reflex to culture" /> <statusCode code="completed" /> < effectiveTime value="337206189100" /> <value unit="" xsi:type="PQ" value="NO" /> <referenceRange> <observationRange> <text>NRG</text> </observationRange> </referenceRange> </observation> </component> <component> <observation moodCode="EVN" classCode="OBS"> <templateId root= "2.16.840.1.471772.10..22.4.2" /> <id nullFlavor="NA" /> < code codeSystem="local" code="8246-1" displayName="Amorphous sediment detection in urine sediment by light microscopy" /> <statusCode code="completed" /> <effectiveTime value="847611436647" /> <value unit="" xsi: type="PQ" value="FEW RAMIRO URATES" /> <interpretationCode codeSystem= "local" code="*" /> <referenceRange> <observationRange> <text>NRG</text> </observationRange> </ referenceRange> </observation> </component> </organizer> </entry > <entry> <organizer moodCode="EVN" classCode="BATTERY"> <templateId root="2.16.840.1.166798.10..22.4.1" /> <id nullFlavor="NA" /> <code codeSystem="local" code="48524-3" displayName="Urine drug screening test" /> <statusCode code="completed" /> <component> <observation moodCode ="EVN" classCode="OBS"> <templateId root= "2.16.840.1.644059.10..22.4.2" /> <id nullFlavor="NA" /> < code codeSystem="local" code="46304-9" displayName="Urine phencyclidine detection by screening method" /> <statusCode code="completed" /> <effectiveTime value="081720638221" /> <value unit="" xsi:type="PQ " value="NEGATIVE" /> <referenceRange> <observationRange> <text>NEGATIVE</text> </observationRange> </ referenceRange> </observation> </component> <component> <observation moodCode="EVN" classCode="OBS"> <templateId root= "2.16.840.1.349504.10..22.4.2" /> <id nullFlavor="NA" /> < code codeSystem="local" code="39589-5" displayName="Urine benzodiazepines detection by screening method" /> <statusCode code="completed" /> <effectiveTime value="448457729278" /> <value unit="" xsi:type="PQ " value="NEGATIVE" /> <referenceRange> <observationRange> <text>NEGATIVE</text> </observationRange> </ referenceRange> </observation> </component> <component> <observation moodCode="EVN" classCode="OBS"> <templateId root= "2.16.840.1.117533.10..22.4.2" /> <id nullFlavor="NA" /> < code codeSystem="local" code="3397-7" displayName="Urine cocaine detection" /> <statusCode code="completed" /> <effectiveTime value= "135400408861" /> <value unit="" xsi:type="PQ" value="NEGATIVE" /> <referenceRange> <observationRange> <text>NEGATIVE </text> </observationRange> </referenceRange> </ observation> </component> <component> <observation moodCode= "EVN" classCode="OBS"> <templateId root="2.16.840.1.042544.10..4.2 " /> <id nullFlavor="NA" /> <code codeSystem="local" code= "19928-1" displayName="Urine amphetamines detection by screening method" /> <statusCode code="completed" /> <effectiveTime value= "560224540050" /> <value unit="" xsi:type="PQ" value="NEGATIVE" /> <referenceRange> <observationRange> <text>NEGATIVE </text> </observationRange> </referenceRange> </ observation> </component> <component> <observation moodCode= "EVN" classCode="OBS"> <templateId root="216.840.1.059318.10.22.4.2 " /> <id nullFlavor="NA" /> <code codeSystem="local" code= "53683-4" displayName="Urine methamphetamine detection by screening method" /> <statusCode code="completed" /> <effectiveTime value= "000685719070" /> <value unit="" xsi:type="PQ" value="NEGATIVE" /> <referenceRange> <observationRange> <text>NEGATIVE </text> </observationRange> </referenceRange> </ observation> </component> <component> <observation moodCode= "EVN" classCode="OBS"> <templateId root="2.16.840.1.826989.10..22.4.2 " /> <id nullFlavor="NA" /> <code codeSystem="local" code= "97891-7" displayName="Urine cannabinoids detection by screening method" /> <statusCode code="completed" /> <effectiveTime value= "222950258533" /> <value unit="" xsi:type="PQ" value="NEGATIVE" /> <referenceRange> <observationRange> <text>NEGATIVE </text> </observationRange> </referenceRange> </ observation> </component> <component> <observation moodCode= "EVN" classCode="OBS"> <templateId root="216.840.1.087515.10..4.2 " /> <id nullFlavor="NA" /> <code codeSystem="local" code= "53464-3" displayName="Urine opiates detection by screening method" /> <statusCode code="completed" /> <effectiveTime value="732826355194" /> <value unit="" xsi:type="PQ" value="NEGATIVE" /> < referenceRange> <observationRange> <text>NEGATIVE</text > </observationRange> </referenceRange> </observation > </component> <component> <observation moodCode="EVN" classCode="OBS"> <templateId root="216.840.1.244852.10..22.4.2" /> <id nullFlavor="NA" /> <code codeSystem="local" code="3377-9" displayName="Urine barbiturates detection" /> <statusCode code= "completed" /> <effectiveTime value="789327851943" /> <value unit="" xsi:type="PQ" value="NEGATIVE" /> <referenceRange> < observationRange> <text>NEGATIVE</text> </ observationRange> </referenceRange> </observation> </ component> <component> <observation moodCode="EVN" classCode="OBS"> <templateId root="216.840.1.513134.10.20.22.4.2" /> <id nullFlavor="NA" /> <code codeSystem="local" code="54178-9" displayName= "Screening urine tricyclic antidepressants detection" /> <statusCode code="completed" /> <effectiveTime value="440812514353" /> < value unit="" xsi:type="PQ" value="NEGATIVE" /> <referenceRange> <observationRange> <text>NEGATIVE</text> </ observationRange> </referenceRange> </observation> </ component> <component> <observation moodCode="EVN" classCode="OBS"> <templateId root="06.27.840.1.696194.10.22.4.2" /> <id nullFlavor="NA" /> <code codeSystem="local" code="44266-4" displayName= "Urine methadone detection by screening method" /> <statusCode code= "completed" /> <effectiveTime value="087920949867" /> <value unit="" xsi:type="PQ" value="NEGATIVE" /> <referenceRange> < observationRange> <text>NEGATIVE</text> </ observationRange> </referenceRange> </observation> </ component> <component> <observation moodCode="EVN" classCode="OBS"> <templateId root="06.27.840.1.344424.10.2022.4.2" /> <id nullFlavor="NA" /> <code codeSystem="local" code="54812-4" displayName= "Urine oxycodone detection" /> <statusCode code="completed" /> <effectiveTime value="372991335685" /> <value unit="" xsi:type="PQ" value="NEGATIVE" /> <referenceRange> <observationRange> <text>NEGATIVE</text> </observationRange> </ referenceRange> </observation> </component> <component> <observation moodCode="EVN" classCode="OBS"> <templateId root= "216.840.1.101854.10..4.2" /> <id nullFlavor="NA" /> < code codeSystem="local" code="41408-6" displayName="Urine propoxyphene detection " /> <statusCode code="completed" /> <effectiveTime value= "599871262422" /> <value unit="" xsi:type="PQ" value="NEGATIVE" /> <referenceRange> <observationRange> <text>NEGATIVE </text> </observationRange> </referenceRange> </ observation> </component> </organizer> </entry> <entry> <organizer moodCode="EVN" classCode="BATTERY"> <templateId root= "216.840.1.330009.10..4.1" /> <id nullFlavor="NA" /> <code codeSystem="local" code="40474-9" displayName="Complete blood count (CBC) with automated white blood cell (WBC) differential" /> <statusCode code= "completed" /> <component> <observation moodCode="EVN" classCode= "OBS"> <templateId root="2.16.840.1.534810.10..22.4.2" /> < id nullFlavor="NA" /> <code codeSystem="local" code="6690-2" displayName="Blood leukocytes automated count (number/volume)" /> < statusCode code="completed" /> <effectiveTime value="511848333073" /> <value unit="10*3/uL" xsi:type="PQ" value="5.5" /> < referenceRange> <observationRange> <text>4.3-11.0</text > </observationRange> </referenceRange> </observation > </component> <component> <observation moodCode="EVN" classCode="OBS"> <templateId root="2.16.840.1.432096.10..22.4.2" /> <id nullFlavor="NA" /> <code codeSystem="local" code="789-8" displayName="Blood erythrocytes automated count (number/volume)" /> < statusCode code="completed" /> <effectiveTime value="857407053092" /> <value unit="10*6/uL" xsi:type="PQ" value="4.20" /> < interpretationCode codeSystem="local" code="" /> <referenceRange> <observationRange> <text>4.35-5.85</text> </ observationRange> </referenceRange> </observation> </ component> <component> <observation moodCode="EVN" classCode="OBS"> <templateId root="2.16.840.1.539180.10..22.4.2" /> <id nullFlavor="NA" /> <code codeSystem="local" code="80066-4" displayName= "Venous blood hemoglobin measurement (mass/volume)" /> <statusCode code ="completed" /> <effectiveTime value="770035288536" /> <value unit="g/dL" xsi:type="PQ" value="9.7" /> <interpretationCode codeSystem ="local" code="" /> <referenceRange> <observationRange> <text>11.5-16.0</text> </observationRange> </ referenceRange> </observation> </component> <component> <observation moodCode="EVN" classCode="OBS"> <templateId root= "216.840.1.812145.10..22.4.2" /> <id nullFlavor="NA" /> < code codeSystem="local" code="53797-2" displayName="Blood hematocrit (volume fraction)" /> <statusCode code="completed" /> <effectiveTime value="571268308834" /> <value unit="%" xsi:type="PQ" value="31" / > <interpretationCode codeSystem="local" code="" /> < referenceRange> <observationRange> <text>35-52</text> </observationRange> </referenceRange> </observation> </component> <component> <observation moodCode="EVN" classCode= "OBS"> <templateId root="06.27.840.1.924768.02.28.22.4.2" /> < id nullFlavor="NA" /> <code codeSystem="local" code="787-2" displayName ="Automated erythrocyte mean corpuscular volume" /> <statusCode code= "completed" /> <effectiveTime value="761231273830" /> <value unit="[foz_us]" xsi:type="PQ" value="74" /> <interpretationCode codeSystem="local" code="" /> <referenceRange> < observationRange> <text>80-99</text> </observationRange > </referenceRange> </observation> </component> < component> <observation moodCode="EVN" classCode="OBS"> < templateId root="06.27.840.1.225929.10.20.22.4.2" /> <id nullFlavor="NA " /> <code codeSystem="local" code="785-6" displayName="Automated erythrocyte mean corpuscular hemoglobin (mass per erythrocyte)" /> < statusCode code="completed" /> <effectiveTime value="198709958760" /> <value unit="pg" xsi:type="PQ" value="23" /> < interpretationCode codeSystem="local" code="" /> <referenceRange> <observationRange> <text>25-34</text> </ observationRange> </referenceRange> </observation> </ component> <component> <observation moodCode="EVN" classCode="OBS"> <templateId root="216.840.1.998649.10.20.22.4.2" /> <id nullFlavor="NA" /> <code codeSystem="local" code="786-4" displayName= "Automated erythrocyte mean corpuscular hemoglobin concentration measurement ( mass/volume)" /> <statusCode code="completed" /> < effectiveTime value="120556641883" /> <value unit="g/dL" xsi:type="PQ" value="31" /> <interpretationCode codeSystem="local" code="" /> <referenceRange> <observationRange> <text>32-36</ text> </observationRange> </referenceRange> </ observation> </component> <component> <observation moodCode= "EVN" classCode="OBS"> <templateId root="216.840.1.130270.10.20.22.4.2 " /> <id nullFlavor="NA" /> <code codeSystem="local" code="788 -0" displayName="Automated erythrocyte distribution width ratio" /> < statusCode code="completed" /> <effectiveTime value="384202450113" /> <value unit="%" xsi:type="PQ" value="21.6" /> < interpretationCode codeSystem="local" code="" /> <referenceRange> <observationRange> <text>10.0-14.5</text> </ observationRange> </referenceRange> </observation> </ component> <component> <observation moodCode="EVN" classCode="OBS"> <templateId root="216.840.1.389964.10.20.22.4.2" /> <id nullFlavor="NA" /> <code codeSystem="local" code="777-3" displayName= "Automated blood platelet count (count/volume)" /> <statusCode code= "completed" /> <effectiveTime value="289277684021" /> <value unit="10*3/uL" xsi:type="PQ" value="181" /> <referenceRange> <observationRange> <text>130-400</text> </ observationRange> </referenceRange> </observation> </ component> <component> <observation moodCode="EVN" classCode="OBS"> <templateId root="216.840.1.492406.10.22.4.2" /> <id nullFlavor="NA" /> <code codeSystem="local" code="45264-2" displayName= "Automated blood platelet mean volume measurement" /> <statusCode code= "completed" /> <effectiveTime value="873592465894" /> <value unit="[foz_us]" xsi:type="PQ" value="11.2" /> <interpretationCode codeSystem="local" code="" /> <referenceRange> < observationRange> <text>7.4-10.4</text> </ observationRange> </referenceRange> </observation> </ component> <component> <observation moodCode="EVN" classCode="OBS"> <templateId root="2.16.840.1.865306.10.20.22.4.2" /> <id nullFlavor="NA" /> <code codeSystem="local" code="770-8" displayName= "Automated blood neutrophils/100 leukocytes" /> <statusCode code= "completed" /> <effectiveTime value="936874827675" /> <value unit="%" xsi:type="PQ" value="51" /> <referenceRange> < observationRange> <text>42-75</text> </observationRange > </referenceRange> </observation> </component> < component> <observation moodCode="EVN" classCode="OBS"> < templateId root="2.16.840.1.066209.10..22.4.2" /> <id nullFlavor="NA " /> <code codeSystem="local" code="736-9" displayName="Automated blood lymphocytes/100 leukocytes" /> <statusCode code="completed" /> <effectiveTime value="987672664693" /> <value unit="%" xsi: type="PQ" value="31" /> <referenceRange> <observationRange> <text>12-44</text> </observationRange> </ referenceRange> </observation> </component> <component> <observation moodCode="EVN" classCode="OBS"> <templateId root= "216.840.1.416361.10...4.2" /> <id nullFlavor="NA" /> < code codeSystem="local" code="89964-5" displayName="Blood monocytes/100 leukocytes" /> <statusCode code="completed" /> <effectiveTime value="555641963148" /> <value unit="%" xsi:type="PQ" value="11" / > <referenceRange> <observationRange> <text>0- 12</text> </observationRange> </referenceRange> </ observation> </component> <component> <observation moodCode= "EVN" classCode="OBS"> <templateId root="2.16.840.1.672246.10.4.2 " /> <id nullFlavor="NA" /> <code codeSystem="local" code="713 -8" displayName="Automated blood eosinophils/100 leukocytes" /> < statusCode code="completed" /> <effectiveTime value="743293073683" /> <value unit="%" xsi:type="PQ" value="6" /> <referenceRange > <observationRange> <text>0-10</text> </ observationRange> </referenceRange> </observation> </ component> <component> <observation moodCode="EVN" classCode="OBS"> <templateId root="2.16.840.1.116651.02.28.22.4.2" /> <id nullFlavor="NA" /> <code codeSystem="local" code="706-2" displayName= "Automated blood basophils/100 leukocytes" /> <statusCode code= "completed" /> <effectiveTime value="308178162981" /> <value unit="%" xsi:type="PQ" value="1" /> <referenceRange> < observationRange> <text>0-10</text> </observationRange> </referenceRange> </observation> </component> < component> <observation moodCode="EVN" classCode="OBS"> < templateId root="2.16.840.1.501296.02.28.22.4.2" /> <id nullFlavor="NA " /> <code codeSystem="local" code="751-8" displayName="Blood neutrophils automated count (number/volume)" /> <statusCode code= "completed" /> <effectiveTime value="274169198042" /> <value unit="10*3" xsi:type="PQ" value="2.8" /> <referenceRange> < observationRange> <text>1.8-7.8</text> </ observationRange> </referenceRange> </observation> </ component> <component> <observation moodCode="EVN" classCode="OBS"> <templateId root="2.16.840.1.772931.10.20.22.4.2" /> <id nullFlavor="NA" /> <code codeSystem="local" code="731-0" displayName= "Blood lymphocytes automated count (number/volume)" /> <statusCode code ="completed" /> <effectiveTime value="871344252055" /> <value unit="10*3" xsi:type="PQ" value="1.7" /> <referenceRange> < observationRange> <text>1.0-4.0</text> </ observationRange> </referenceRange> </observation> </ component> <component> <observation moodCode="EVN" classCode="OBS"> <templateId root="216.840.1.641137.22.4.2" /> <id nullFlavor="NA" /> <code codeSystem="local" code="742-7" displayName= "Blood monocytes automated count (number/volume)" /> <statusCode code= "completed" /> <effectiveTime value="337571453623" /> <value unit="10*3" xsi:type="PQ" value="0.6" /> <referenceRange> < observationRange> <text>0.0-1.0</text> </ observationRange> </referenceRange> </observation> </ component> <component> <observation moodCode="EVN" classCode="OBS"> <templateId root="216.840.1.546696.10.2022.4.2" /> <id nullFlavor="NA" /> <code codeSystem="local" code="711-2" displayName= "Automated eosinophil count" /> <statusCode code="completed" /> <effectiveTime value="639741105944" /> <value unit="10*3/uL" xsi: type="PQ" value="0.3" /> <referenceRange> <observationRange > <text>0.0-0.3</text> </observationRange> </ referenceRange> </observation> </component> <component> <observation moodCode="EVN" classCode="OBS"> <templateId root= "216.840.1.894725.10..22.4.2" /> <id nullFlavor="NA" /> < code codeSystem="local" code="704-7" displayName="Automated blood basophil count (count/volume)" /> <statusCode code="completed" /> < effectiveTime value="060008113570" /> <value unit="10*3/uL" xsi:type= "PQ" value="0.0" /> <referenceRange> <observationRange> <text>0.0-0.1</text> </observationRange> </ referenceRange> </observation> </component> </organizer> </entry > <entry> <organizer moodCode="EVN" classCode="BATTERY"> <templateId root="216.840.1.159121.10..22.4.1" /> <id nullFlavor="NA" /> <code codeSystem="local" code="2117-12" displayName="Serum or plasma choriogonadotropin ( test) detection" /> <statusCode code= "completed" /> <component> <observation moodCode="EVN" classCode= "OBS"> <templateId root="216.840.1.401093.10..22.4.2" /> < id nullFlavor="NA" /> <code codeSystem="local" code="2117-12" displayName="Serum or plasma choriogonadotropin ( test) detection" /> <statusCode code="completed" /> <effectiveTime value= "681232482133" /> <value unit="" xsi:type="PQ" value="NEGATIVE" /> <referenceRange> <observationRange> <text>NEGATIVE </text> </observationRange> </referenceRange> </ observation> </component> </organizer> </entry> <entry> <organizer moodCode="EVN" classCode="BATTERY"> <templateId root= "216.840.1.951685.10..22.4.1" /> <id nullFlavor="NA" /> <code codeSystem="local" code="42761-9" displayName="Comprehensive metabolic panel" / > <statusCode code="completed" /> <component> <observation moodCode="EVN" classCode="OBS"> <templateId root= "2.16.840.1.826911.10..22.4.2" /> <id nullFlavor="NA" /> < code codeSystem="local" code="2951-2" displayName="Serum or plasma sodium measurement (moles/volume)" /> <statusCode code="completed" /> <effectiveTime value="730047336809" /> <value unit="mmol/L" xsi:type= "PQ" value="139" /> <referenceRange> <observationRange> <text>135-145</text> </observationRange> </ referenceRange> </observation> </component> <component> <observation moodCode="EVN" classCode="OBS"> <templateId root= "2.16.840.1.974105.10..22.4.2" /> <id nullFlavor="NA" /> < code codeSystem="local" code="2823-3" displayName="Serum or plasma potassium measurement (moles/volume)" /> <statusCode code="completed" /> <effectiveTime value="375678891358" /> <value unit="mmol/L" xsi:type= "PQ" value="3.5" /> <interpretationCode codeSystem="local" code="" / > <referenceRange> <observationRange> <text>3.6 -5.0</text> </observationRange> </referenceRange> </ observation> </component> <component> <observation moodCode= "EVN" classCode="OBS"> <templateId root="16.840.1.101952.10..4.2 " /> <id nullFlavor="NA" /> <code codeSystem="local" code= "" displayName="Serum or plasma chloride measurement (moles/volume)" /> <statusCode code="completed" /> <effectiveTime value= "268650162457" /> <value unit="mmol/L" xsi:type="PQ" value="106" /> <referenceRange> <observationRange> <text>98-107< /text> </observationRange> </referenceRange> </ observation> </component> <component> <observation moodCode= "EVN" classCode="OBS"> <templateId root="06.27.840.1.094947.10..4.2 " /> <id nullFlavor="NA" /> <code codeSystem="local" code= "2028-01" displayName="Carbon dioxide" /> <statusCode code="completed" / > <effectiveTime value="132762987024" /> <value unit="mmol/L" xsi:type="PQ" value="23" /> <referenceRange> < observationRange> <text>21-32</text> </observationRange > </referenceRange> </observation> </component> < component> <observation moodCode="EVN" classCode="OBS"> < templateId root="16.840.1.883799.10...4.2" /> <id nullFlavor="NA " /> <code codeSystem="local" code="16324-5" displayName="Serum or plasma anion gap determination (moles/volume)" /> <statusCode code= "completed" /> <effectiveTime value="225134876453" /> <value unit="mmol/L" xsi:type="PQ" value="10" /> <referenceRange> < observationRange> <text>5-14</text> </observationRange> </referenceRange> </observation> </component> < component> <observation moodCode="EVN" classCode="OBS"> < templateId root="2.16.840.1.129938.10..22.4.2" /> <id nullFlavor="NA " /> <code codeSystem="local" code="3094-0" displayName="Serum or plasma urea nitrogen measurement (mass/volume)" /> <statusCode code= "completed" /> <effectiveTime value="695061990529" /> <value unit="mg/dL" xsi:type="PQ" value="18" /> <referenceRange> < observationRange> <text>7-18</text> </observationRange> </referenceRange> </observation> </component> < component> <observation moodCode="EVN" classCode="OBS"> < templateId root="2.16.840.1.465786.10..22.4.2" /> <id nullFlavor="NA " /> <code codeSystem="local" code="2160-0" displayName="Serum or plasma creatinine measurement (mass/volume)" /> <statusCode code= "completed" /> <effectiveTime value="950916889718" /> <value unit="mg/dL" xsi:type="PQ" value="0.75" /> <referenceRange> <observationRange> <text>0.60-1.30</text> </ observationRange> </referenceRange> </observation> </ component> <component> <observation moodCode="EVN" classCode="OBS"> <templateId root="2.16.840.1.987545.10..22.4.2" /> <id nullFlavor="NA" /> <code codeSystem="local" code="3097-3" displayName= "Serum or plasma urea nitrogen/creatinine mass ratio" /> <statusCode code="completed" /> <effectiveTime value="426594517581" /> < value unit="" xsi:type="PQ" value="24" /> <referenceRange> < observationRange> <text>NRG</text> </observationRange> </referenceRange> </observation> </component> < component> <observation moodCode="EVN" classCode="OBS"> < templateId root="216.840.1.345487.10..4.2" /> <id nullFlavor="NA " /> <code codeSystem="local" code="87959-8" displayName="Serum or plasma creatinine measurement with calculation of estimated glomerular filtration rate" /> <statusCode code="completed" /> < effectiveTime value="256417255109" /> <value unit="" xsi:type="PQ" value=">" /> <referenceRange> <observationRange> <text>NRG</text> </observationRange> </referenceRange > </observation> </component> <component> <observation moodCode="EVN" classCode="OBS"> <templateId root= "2.16.840.1.508348.10..22.4.2" /> <id nullFlavor="NA" /> < code codeSystem="local" code="2345-7" displayName="Serum or plasma glucose measurement (mass/volume)" /> <statusCode code="completed" /> <effectiveTime value="960450827193" /> <value unit="mg/dL" xsi:type="PQ " value="90" /> <referenceRange> <observationRange> <text>70-105</text> </observationRange> </ referenceRange> </observation> </component> <component> <observation moodCode="EVN" classCode="OBS"> <templateId root= "2.16.840.1.358346.10..22.4.2" /> <id nullFlavor="NA" /> < code codeSystem="local" code="99078-9" displayName="Serum or plasma calcium measurement (mass/volume)" /> <statusCode code="completed" /> <effectiveTime value="931067320974" /> <value unit="mg/dL" xsi:type="PQ " value="9.0" /> <referenceRange> <observationRange> <text>8.5-10.1</text> </observationRange> </ referenceRange> </observation> </component> <component> <observation moodCode="EVN" classCode="OBS"> <templateId root= "2.16.840.1.561323.10..22.4.2" /> <id nullFlavor="NA" /> < code codeSystem="local" code="1974-06" displayName="Serum or plasma total bilirubin measurement (mass/volume)" /> <statusCode code="completed" / > <effectiveTime value="324157646348" /> <value unit="mg/dL" xsi:type="PQ" value="0.3" /> <referenceRange> < observationRange> <text>0.1-1.0</text> </ observationRange> </referenceRange> </observation> </ component> <component> <observation moodCode="EVN" classCode="OBS"> <templateId root="2.16.840.1.260061.10.20.22.4.2" /> <id nullFlavor="NA" /> <code codeSystem="local" code="6768-" displayName= "Serum or plasma alkaline phosphatase measurement (enzymatic activity/volume)" / > <statusCode code="completed" /> <effectiveTime value= "170751180405" /> <value unit="U/L" xsi:type="PQ" value="67" /> <referenceRange> <observationRange> <text>40-136</ text> </observationRange> </referenceRange> </ observation> </component> <component> <observation moodCode= "EVN" classCode="OBS"> <templateId root="2.16.840.1.806324.10..22.4.2 " /> <id nullFlavor="NA" /> <code codeSystem="local" code= "1919-12" displayName="Serum or plasma aspartate aminotransferase measurement ( enzymatic activity/volume)" /> <statusCode code="completed" /> <effectiveTime value="342828429112" /> <value unit="U/L" xsi:type="PQ " value="22" /> <referenceRange> <observationRange> <text>5-34</text> </observationRange> </referenceRange > </observation> </component> <component> <observation moodCode="EVN" classCode="OBS"> <templateId root= "2.16.840.1.242744.10..22.4.2" /> <id nullFlavor="NA" /> < code codeSystem="local" code="1741-10" displayName="Serum or plasma alanine aminotransferase measurement (enzymatic activity/volume)" /> < statusCode code="completed" /> <effectiveTime value="942435576329" /> <value unit="U/L" xsi:type="PQ" value="22" /> <referenceRange > <observationRange> <text>0-55</text> </ observationRange> </referenceRange> </observation> </ component> <component> <observation moodCode="EVN" classCode="OBS"> <templateId root="2.16.840.1.687853.10..22.4.2" /> <id nullFlavor="NA" /> <code codeSystem="local" code="2885-2" displayName= "Serum or plasma protein measurement (mass/volume)" /> <statusCode code ="completed" /> <effectiveTime value="298968597417" /> <value unit="g/dL" xsi:type="PQ" value="7.2" /> <referenceRange> < observationRange> <text>6.4-8.2</text> </ observationRange> </referenceRange> </observation> </ component> <component> <observation moodCode="EVN" classCode="OBS"> <templateId root="216.840.1.790148.10..4.2" /> <id nullFlavor="NA" /> <code codeSystem="local" code="1751-7" displayName= "Serum or plasma albumin measurement (mass/volume)" /> <statusCode code ="completed" /> <effectiveTime value="421804246616" /> <value unit="g/dL" xsi:type="PQ" value="4.2" /> <referenceRange> < observationRange> <text>3.2-4.5</text> </ observationRange> </referenceRange> </observation> </ component> </organizer> </entry> <entry> <organizer moodCode="EVN" classCode="BATTERY"> <templateId root="2.16.840.1.393150.10..22.4.1" /> <id nullFlavor="NA" /> <code codeSystem="local" code="3040-3" displayName="Lipase" /> <statusCode code="completed" /> <component> <observation moodCode="EVN" classCode="OBS"> <templateId root= "2.16.840.1.659693.10.20.22.4.2" /> <id nullFlavor="NA" /> < code codeSystem="local" code="3040-3" displayName="Lipase" /> < statusCode code="completed" /> <effectiveTime value="768977251215" /> <value unit="U/L" xsi:type="PQ" value="42" /> <referenceRange > <observationRange> <text>8-78</text> </ observationRange> </referenceRange> </observation> </ component> </organizer> </entry> <entry> <organizer moodCode="EVN" classCode="BATTERY"> <templateId root="2.16.840.1.124910.10.20.22.4.1" /> <id nullFlavor="NA" /> <code codeSystem="local" code="5643-2" displayName="Serum or plasma ethanol measurement (mass/volume)" /> < statusCode code="completed" /> <component> <observation moodCode= "EVN" classCode="OBS"> <templateId root="2.16.840.1.800203.10.20.22.4.2 " /> <id nullFlavor="NA" /> <code codeSystem="local" code= "5643-2" displayName="Serum or plasma ethanol measurement (mass/volume)" /> <statusCode code="completed" /> <effectiveTime value= "399499443381" /> <value unit="mg/dL" xsi:type="PQ" value="<" /> <referenceRange> <observationRange> <text><10< /text> </observationRange> </referenceRange> </ observation> </component> </organizer> </entry> <entry> <organizer moodCode="EVN" classCode="BATTERY"> <templateId root= "216.840.1.235602.10..4.1" /> <id nullFlavor="NA" /> <code codeSystem="local" code="ORD3" displayName="Comprehensive Metabolic Panel" /> <statusCode code="completed" /> <component> <observation moodCode="EVN" classCode="OBS"> <templateId root= "06.27.840.1.573920...4.2" /> <id nullFlavor="NA" /> < code codeSystem="local" code="Res44" displayName="Albumin" /> < statusCode code="completed" /> <effectiveTime value="336839767860" /> <value unit="g/dL" xsi:type="PQ" value="3.7" /> < referenceRange> <observationRange> <text>3.6-5.1</text> </observationRange> </referenceRange> </observation > </component> <component> <observation moodCode="EVN" classCode="OBS"> <templateId root="06.27.840.1.417084.02.28.22.4.2" /> <id nullFlavor="NA" /> <code codeSystem="local" code="Res45" displayName="ALP" /> <statusCode code="completed" /> < effectiveTime value="287820477019" /> <value unit="U/L" xsi:type="PQ" value="60" /> <referenceRange> <observationRange> <text>35-130</text> </observationRange> </referenceRange > </observation> </component> <component> <observation moodCode="EVN" classCode="OBS"> <templateId root= "06.27.840.1.393878.02.28.22.4.2" /> <id nullFlavor="NA" /> < code codeSystem="local" code="Res46" displayName="ALT" /> <statusCode code="completed" /> <effectiveTime value="686285483928" /> < value unit="U/L" xsi:type="PQ" value="11" /> <referenceRange> <observationRange> <text>6-45</text> </ observationRange> </referenceRange> </observation> </ component> <component> <observation moodCode="EVN" classCode="OBS"> <templateId root="2.16.840.1.363932.02.28.22.4.2" /> <id nullFlavor="NA" /> <code codeSystem="local" code="Res61" displayName= "Anion Gap" /> <statusCode code="completed" /> <effectiveTime value="" /> <value unit="" xsi:type="PQ" value="15" /> <interpretationCode codeSystem="local" code="H" /> < referenceRange> <observationRange> <text>6-14</text> </observationRange> </referenceRange> </observation> </component> <component> <observation moodCode="EVN" classCode= "OBS"> <templateId root="2.16.840.1.318973.02.28.22.4.2" /> < id nullFlavor="NA" /> <code codeSystem="local" code="Res48" displayName ="AST" /> <statusCode code="completed" /> <effectiveTime value ="675991799019" /> <value unit="U/L" xsi:type="PQ" value="15" /> <referenceRange> <observationRange> <text>2-40</text > </observationRange> </referenceRange> </observation > </component> <component> <observation moodCode="EVN" classCode="OBS"> <templateId root="216.840.1.383745.10.20.22.4.2" /> <id nullFlavor="NA" /> <code codeSystem="local" code="Res26" displayName="BUN" /> <statusCode code="completed" /> < effectiveTime value="524505129506" /> <value unit="mg/dL" xsi:type="PQ " value="22" /> <referenceRange> <observationRange> <text>5-25</text> </observationRange> </referenceRange > </observation> </component> <component> <observation moodCode="EVN" classCode="OBS"> <templateId root= "16.840.1.553029.10.2022.4.2" /> <id nullFlavor="NA" /> < code codeSystem="local" code="Res5" displayName="Calcium" /> < statusCode code="completed" /> <effectiveTime value="721920660473" /> <value unit="mg/dL" xsi:type="PQ" value="8.8" /> < referenceRange> <observationRange> <text>8.3-10.4</text > </observationRange> </referenceRange> </observation > </component> <component> <observation moodCode="EVN" classCode="OBS"> <templateId root="06.27.840.1.516685.10.20.22.4.2" /> <id nullFlavor="NA" /> <code codeSystem="local" code="Res21" displayName="Chloride" /> <statusCode code="completed" /> < effectiveTime value="323374822986" /> <value unit="mmol/L" xsi:type="PQ " value="109" /> <referenceRange> <observationRange> <text>95-114</text> </observationRange> </ referenceRange> </observation> </component> <component> <observation moodCode="EVN" classCode="OBS"> <templateId root= "216.840.1.196740.10.22.4.2" /> <id nullFlavor="NA" /> < code codeSystem="local" code="Res49" displayName="CO2" /> <statusCode code="completed" /> <effectiveTime value="497448357542" /> < value unit="mEq/L" xsi:type="PQ" value="20" /> <interpretationCode codeSystem="local" code="L" /> <referenceRange> < observationRange> <text>22-33</text> </observationRange > </referenceRange> </observation> </component> < component> <observation moodCode="EVN" classCode="OBS"> < templateId root="06.27.840.1.225357.02.28.22.4.2" /> <id nullFlavor="NA " /> <code codeSystem="local" code="Pfz998" displayName="Creat" /> <statusCode code="completed" /> <effectiveTime value= "901063581810" /> <value unit="mg/dL" xsi:type="PQ" value="0.74" /> <referenceRange> <observationRange> <text>0.50- 1.50</text> </observationRange> </referenceRange> </ observation> </component> <component> <observation moodCode= "EVN" classCode="OBS"> <templateId root="216.840.1.685192.10.22.4.2 " /> <id nullFlavor="NA" /> <code codeSystem="local" code= "Kfd666" displayName="eGFR" /> <statusCode code="completed" /> <effectiveTime value="507613716995" /> <value unit="mL/min/1.73m2" xsi:type="PQ" value="90" /> <referenceRange> < observationRange> <text>>59</text> </observationRange > </referenceRange> </observation> </component> < component> <observation moodCode="EVN" classCode="OBS"> < templateId root="06.27.840.1.979916.10.4.2" /> <id nullFlavor="NA " /> <code codeSystem="local" code="Res7" displayName="Globulin" /> <statusCode code="completed" /> <effectiveTime value= "087196701812" /> <value unit="g/dL" xsi:type="PQ" value="2.1" /> <interpretationCode codeSystem="local" code="L" /> <referenceRange > <observationRange> <text>2.3-3.5</text> </ observationRange> </referenceRange> </observation> </ component> <component> <observation moodCode="EVN" classCode="OBS"> <templateId root="06.27.840.1.109690.02.28.22.4.2" /> <id nullFlavor="NA" /> <code codeSystem="local" code="Res60" displayName= "Glucose" /> <statusCode code="completed" /> <effectiveTime value="433559149315" /> <value unit="mg/dL" xsi:type="PQ" value="101" / > <referenceRange> <observationRange> <text>70- 110</text> </observationRange> </referenceRange> </ observation> </component> <component> <observation moodCode= "EVN" classCode="OBS"> <templateId root="216.840.1.589341.10.22.4.2 " /> <id nullFlavor="NA" /> <code codeSystem="local" code= "Res52" displayName="Osmo" /> <statusCode code="completed" /> <effectiveTime value="343928967048" /> <value unit="" xsi:type="PQ" value="294" /> <referenceRange> <observationRange> <text>280-295</text> </observationRange> </ referenceRange> </observation> </component> <component> <observation moodCode="EVN" classCode="OBS"> <templateId root= "2.16.840.1.269983.10.20.22.4.2" /> <id nullFlavor="NA" /> < code codeSystem="local" code="Res20" displayName="Potassium" /> < statusCode code="completed" /> <effectiveTime value="" /> <value unit="mmol/L" xsi:type="PQ" value="3.4" /> < interpretationCode codeSystem="local" code="L" /> <referenceRange> <observationRange> <text>3.5-5.3</text> </ observationRange> </referenceRange> </observation> </ component> <component> <observation moodCode="EVN" classCode="OBS"> <templateId root="2.16.840.1.879858.10.20.22.4.2" /> <id nullFlavor="NA" /> <code codeSystem="local" code="Res19" displayName= "Sodium" /> <statusCode code="completed" /> <effectiveTime value="565339029129" /> <value unit="mmol/L" xsi:type="PQ" value="141" /> <referenceRange> <observationRange> <text> 134-148</text> </observationRange> </referenceRange> </observation> </component> <component> <observation moodCode= "EVN" classCode="OBS"> <templateId root="06.27.840.1.922081.10.22.4.2 " /> <id nullFlavor="NA" /> <code codeSystem="local" code= "Res51" displayName="TBil" /> <statusCode code="completed" /> <effectiveTime value="322343502095" /> <value unit="mg/dL" xsi:type="PQ " value="< 0.2" /> <referenceRange> <observationRange> <text /> </observationRange> </referenceRange> </observation> </component> <component> <observation moodCode="EVN" classCode="OBS"> <templateId root= "06.27.840.1.978024.22.4.2" /> <id nullFlavor="NA" /> < code codeSystem="local" code="Res24" displayName="TP" /> <statusCode code="completed" /> <effectiveTime value="559619905163" /> < value unit="g/dL" xsi:type="PQ" value="5.8" /> <interpretationCode codeSystem="local" code="L" /> <referenceRange> < observationRange> <text>6.0-8.3</text> </ observationRange> </referenceRange> </observation> </ component> </organizer> </entry> <entry> <organizer moodCode="EVN" classCode="BATTERY"> <templateId root="06.27.840.1.514188.10.2022.4.1" /> <id nullFlavor="NA" /> <code codeSystem="local" code="FPN598" displayName="Folate" /> <statusCode code="completed" /> <component> <observation moodCode="EVN" classCode="OBS"> <templateId root= "06.27.840.1.517275.22.4.2" /> <id nullFlavor="NA" /> < code codeSystem="local" code="Xsy177" displayName="Folate" /> < statusCode code="completed" /> <effectiveTime value="" /> <value unit="ng/mL" xsi:type="PQ" value="9.20" /> < referenceRange> <observationRange> <text>7.00-31.40</ text> </observationRange> </referenceRange> </ observation> </component> </organizer> </entry> <entry> <organizer moodCode="EVN" classCode="BATTERY"> <templateId root= "840.1.676283.22.4.1" /> <id nullFlavor="NA" /> <code codeSystem="local" code="OKZ179" displayName="XM (2) LRPC" /> <statusCode code="completed" /> <component> <observation moodCode="EVN" classCode="OBS"> <templateId root="06.27.840.1.576683...4.2" /> <id nullFlavor="NA" /> <code codeSystem="local" code="Nvp516" displayName="CROSSMATCH" /> <statusCode code="completed" /> < effectiveTime value="[id number]" /> <value unit="" xsi:type="PQ" value="COMPATIBLE X 2" /> <referenceRange> <observationRange > <text /> </observationRange> </referenceRange > </observation> </component> <component> <observation moodCode="EVN" classCode="OBS"> <templateId root= "06.27.840.1.840812.10.22.4.2" /> <id nullFlavor="NA" /> < code codeSystem="local" code="Res87" displayName="Hct" /> <statusCode code="completed" /> <effectiveTime value="" /> < value unit="%" xsi:type="PQ" value="25.8" /> <interpretationCode codeSystem="local" code="L" /> <referenceRange> < observationRange> <text>36.0-46.0</text> </ observationRange> </referenceRange> </observation> </ component> <component> <observation moodCode="EVN" classCode="OBS"> <templateId root="06.27.840.1.479168.22.4.2" /> <id nullFlavor="NA" /> <code codeSystem="local" code="Wqo187" displayName= "Hgb" /> <statusCode code="completed" /> <effectiveTime value= "512268038632" /> <value unit="g/dL" xsi:type="PQ" value="7.9" /> <interpretationCode codeSystem="local" code="L" /> <referenceRange > <observationRange> <text>13.0-15.0</text> < /observationRange> </referenceRange> </observation> </ component> </organizer> </entry> <entry> <organizer moodCode="EVN" classCode="BATTERY"> <templateId root="840.1.800195.22.4.1" /> <id nullFlavor="NA" /> <code codeSystem="local" code="ORD80" displayName=" Test-Serum" /> <statusCode code="completed" /> <component> <observation moodCode="EVN" classCode="OBS"> < templateId root="840.1.177289.102022.4.2" /> <id nullFlavor="NA " /> <code codeSystem="local" code="Res82" displayName="Preg Test-S" / > <statusCode code="completed" /> <effectiveTime value= "950027577192" /> <value unit="" xsi:type="PQ" value="Negative" /> <referenceRange> <observationRange> <text>Negative </text> </observationRange> </referenceRange> </ observation> </component> </organizer> </entry> <entry> <organizer moodCode="EVN" classCode="BATTERY"> <templateId root= "216.840.1.383203.10..22.4.1" /> <id nullFlavor="NA" /> <code codeSystem="local" code="FLU1662" displayName="Leukoreduced Packed RBC Unit Checkout" /> <statusCode code="completed" /> <component> < observation moodCode="EVN" classCode="OBS"> <templateId root= "2.16.840.1.302040.10..22.4.2" /> <id nullFlavor="NA" /> < code codeSystem="local" code="Vlr262" displayName="LRPRBC Checkout" /> <statusCode code="completed" /> <effectiveTime value="731667103784" /> <value unit="" xsi:type="PQ" value="Checked Out." /> < referenceRange> <observationRange> <text /> < /observationRange> </referenceRange> </observation> </ component> </organizer> </entry> <entry> <organizer moodCode="EVN" classCode="BATTERY"> <templateId root="216.840.1.875600.10..22.4.1" /> <id nullFlavor="NA" /> <code codeSystem="local" code="SCW8024" displayName="Leukoreduced Packed RBC Unit Checkout" /> <statusCode code= "completed" /> <component> <observation moodCode="EVN" classCode= "OBS"> <templateId root="2.16.840.1.407092.10..22.4.2" /> < id nullFlavor="NA" /> <code codeSystem="local" code="Kdz493" displayName="[facility] Checkout" /> <statusCode code="completed" /> <effectiveTime value="705485315394" /> <value unit="" xsi:type="PQ " value="Checked Out." /> <referenceRange> <observationRange > <text /> </observationRange> </referenceRange > </observation> </component> </organizer> </entry> <entry> <organizer moodCode="EVN" classCode="BATTERY"> <templateId root= "2.16.840.1.037492.10..22.4.1" /> <id nullFlavor="NA" /> <code codeSystem="local" code="ORD4" displayName="BMP" /> <statusCode code= "completed" /> <component> <observation moodCode="EVN" classCode= "OBS"> <templateId root="2.16.840.1.405554.10..22.4.2" /> < id nullFlavor="NA" /> <code codeSystem="local" code="Res61" displayName ="Anion Gap" /> <statusCode code="completed" /> < effectiveTime value="766275416956" /> <value unit="" xsi:type="PQ" value="15" /> <interpretationCode codeSystem="local" code="H" /> <referenceRange> <observationRange> <text>6-14</text > </observationRange> </referenceRange> </observation > </component> <component> <observation moodCode="EVN" classCode="OBS"> <templateId root="216.840.1.268622.10..22.4.2" /> <id nullFlavor="NA" /> <code codeSystem="local" code="Res26" displayName="BUN" /> <statusCode code="completed" /> < effectiveTime value="" /> <value unit="mg/dL" xsi:type="PQ " value="18" /> <referenceRange> <observationRange> <text>5-25</text> </observationRange> </referenceRange > </observation> </component> <component> <observation moodCode="EVN" classCode="OBS"> <templateId root= "16.840.1.199869.02.28.22.4.2" /> <id nullFlavor="NA" /> < code codeSystem="local" code="Res5" displayName="Calcium" /> < statusCode code="completed" /> <effectiveTime value="" /> <value unit="mg/dL" xsi:type="PQ" value="8.8" /> < referenceRange> <observationRange> <text>8.3-10.4</text > </observationRange> </referenceRange> </observation > </component> <component> <observation moodCode="EVN" classCode="OBS"> <templateId root="16.840.1.564965.10.2022.4.2" /> <id nullFlavor="NA" /> <code codeSystem="local" code="Res21" displayName="Chloride" /> <statusCode code="completed" /> < effectiveTime value="563079170282" /> <value unit="mmol/L" xsi:type="PQ " value="110" /> <referenceRange> <observationRange> <text>95-114</text> </observationRange> </ referenceRange> </observation> </component> <component> <observation moodCode="EVN" classCode="OBS"> <templateId root= "216.840.1.103259.10.22.4.2" /> <id nullFlavor="NA" /> < code codeSystem="local" code="Res49" displayName="CO2" /> <statusCode code="completed" /> <effectiveTime value="" /> < value unit="mEq/L" xsi:type="PQ" value="22" /> <referenceRange> <observationRange> <text>22-33</text> </ observationRange> </referenceRange> </observation> </ component> <component> <observation moodCode="EVN" classCode="OBS"> <templateId root="216.840.1.887249.02.28.224.2" /> <id nullFlavor="NA" /> <code codeSystem="local" code="Onh837" displayName= "Creat" /> <statusCode code="completed" /> <effectiveTime value="" /> <value unit="mg/dL" xsi:type="PQ" value="0.74" /> <referenceRange> <observationRange> <text> 0.50-1.50</text> </observationRange> </referenceRange> </observation> </component> <component> <observation moodCode="EVN" classCode="OBS"> <templateId root= "16.840.1.551741.10.2022.4.2" /> <id nullFlavor="NA" /> < code codeSystem="local" code="Iws477" displayName="eGFR" /> < statusCode code="completed" /> <effectiveTime value="" /> <value unit="mL/min/1.73m2" xsi:type="PQ" value="90" /> < referenceRange> <observationRange> <text>>59</text> </observationRange> </referenceRange> </observation> </component> <component> <observation moodCode="EVN" classCode ="OBS"> <templateId root="06.27.840.1.006930.10..4.2" /> < id nullFlavor="NA" /> <code codeSystem="local" code="Res60" displayName ="Glucose" /> <statusCode code="completed" /> <effectiveTime value="329653725354" /> <value unit="mg/dL" xsi:type="PQ" value="70" / > <referenceRange> <observationRange> <text>70- 110</text> </observationRange> </referenceRange> </ observation> </component> <component> <observation moodCode= "EVN" classCode="OBS"> <templateId root="840.1.717850.10.4.2 " /> <id nullFlavor="NA" /> <code codeSystem="local" code= "Res52" displayName="Osmo" /> <statusCode code="completed" /> <effectiveTime value="832034706689" /> <value unit="" xsi:type="PQ" value="296" /> <interpretationCode codeSystem="local" code="H" /> <referenceRange> <observationRange> <text>280-295</ text> </observationRange> </referenceRange> </ observation> </component> <component> <observation moodCode= "EVN" classCode="OBS"> <templateId root="06.27.840.1.088131.10..4.2 " /> <id nullFlavor="NA" /> <code codeSystem="local" code= "Res20" displayName="Potassium" /> <statusCode code="completed" /> <effectiveTime value="309556188027" /> <value unit="mmol/L" xsi: type="PQ" value="3.6" /> <referenceRange> <observationRange > <text>3.5-5.3</text> </observationRange> </ referenceRange> </observation> </component> <component> <observation moodCode="EVN" classCode="OBS"> <templateId root= "216.840.1.945815.10..22.4.2" /> <id nullFlavor="NA" /> < code codeSystem="local" code="Res19" displayName="Sodium" /> < statusCode code="completed" /> <effectiveTime value="443998438359" /> <value unit="mmol/L" xsi:type="PQ" value="143" /> < referenceRange> <observationRange> <text>134-148</text> </observationRange> </referenceRange> </observation > </component> </organizer> </entry> <entry> <organizer moodCode= "EVN" classCode="BATTERY"> <templateId root="216.840.1.250531.10..22.4.1 " /> <id nullFlavor="NA" /> <code codeSystem="local" code="67515-8" displayName="Complete blood count (CBC) with automated white blood cell (WBC) differential" /> <statusCode code="completed" /> <component> < observation moodCode="EVN" classCode="OBS"> <templateId root= "216.840.1.794533.10.20.22.4.2" /> <id nullFlavor="NA" /> < code codeSystem="local" code="6690-2" displayName="Blood leukocytes automated count (number/volume)" /> <statusCode code="completed" /> < effectiveTime value="939980424816" /> <value unit="10*3/uL" xsi:type= "PQ" value="10.1" /> <referenceRange> <observationRange> <text>4.3-11.0</text> </observationRange> </ referenceRange> </observation> </component> <component> <observation moodCode="EVN" classCode="OBS"> <templateId root= "2.16.840.1.563916.10.20.22.4.2" /> <id nullFlavor="NA" /> < code codeSystem="local" code="789-8" displayName="Blood erythrocytes automated count (number/volume)" /> <statusCode code="completed" /> < effectiveTime value="972650161540" /> <value unit="10*6/uL" xsi:type= "PQ" value="3.96" /> <interpretationCode codeSystem="local" code="" / > <referenceRange> <observationRange> <text> 4.35-5.85</text> </observationRange> </referenceRange> </observation> </component> <component> <observation moodCode="EVN" classCode="OBS"> <templateId root= "2.16.840.1.055501.10.20.22.4.2" /> <id nullFlavor="NA" /> < code codeSystem="local" code="95313-8" displayName="Venous blood hemoglobin measurement (mass/volume)" /> <statusCode code="completed" /> <effectiveTime value="019348382727" /> <value unit="g/dL" xsi:type="PQ " value="10.6" /> <interpretationCode codeSystem="local" code="" /> <referenceRange> <observationRange> <text>11.5- 16.0</text> </observationRange> </referenceRange> </ observation> </component> <component> <observation moodCode= "EVN" classCode="OBS"> <templateId root="2.16.840.1.527327.10..22.4.2 " /> <id nullFlavor="NA" /> <code codeSystem="local" code= "48060-3" displayName="Blood hematocrit (volume fraction)" /> < statusCode code="completed" /> <effectiveTime value="" /> <value unit="%" xsi:type="PQ" value="32" /> < interpretationCode codeSystem="local" code="" /> <referenceRange> <observationRange> <text>35-52</text> </ observationRange> </referenceRange> </observation> </ component> <component> <observation moodCode="EVN" classCode="OBS"> <templateId root="2.16.840.1.298514.10..4.2" /> <id nullFlavor="NA" /> <code codeSystem="local" code="787-2" displayName= "Automated erythrocyte mean corpuscular volume" /> <statusCode code= "completed" /> <effectiveTime value="" /> <value unit="[foz_us]" xsi:type="PQ" value="80" /> <referenceRange> <observationRange> <text>80-99</text> </ observationRange> </referenceRange> </observation> </ component> <component> <observation moodCode="EVN" classCode="OBS"> <templateId root="2.16.840.1.350882.10..22.4.2" /> <id nullFlavor="NA" /> <code codeSystem="local" code="785-6" displayName= "Automated erythrocyte mean corpuscular hemoglobin (mass per erythrocyte)" /> <statusCode code="completed" /> <effectiveTime value= "090162465649" /> <value unit="pg" xsi:type="PQ" value="27" /> <referenceRange> <observationRange> <text>25-34</text > </observationRange> </referenceRange> </observation > </component> <component> <observation moodCode="EVN" classCode="OBS"> <templateId root="2.16.840.1.614627.10..22.4.2" /> <id nullFlavor="NA" /> <code codeSystem="local" code="786-4" displayName="Automated erythrocyte mean corpuscular hemoglobin concentration measurement (mass/volume)" /> <statusCode code="completed" /> <effectiveTime value="308366305862" /> <value unit="g/dL" xsi:type="PQ " value="33" /> <referenceRange> <observationRange> <text>32-36</text> </observationRange> </ referenceRange> </observation> </component> <component> <observation moodCode="EVN" classCode="OBS"> <templateId root= "2.16.840.1.701933.10..22.4.2" /> <id nullFlavor="NA" /> < code codeSystem="local" code="788-0" displayName="Automated erythrocyte distribution width ratio" /> <statusCode code="completed" /> < effectiveTime value="301071155442" /> <value unit="%" xsi:type="PQ " value="22.0" /> <interpretationCode codeSystem="local" code="" /> <referenceRange> <observationRange> <text>10.0- 14.5</text> </observationRange> </referenceRange> </ observation> </component> <component> <observation moodCode= "EVN" classCode="OBS"> <templateId root="2.16.840.1.346125.10.20.22.4.2 " /> <id nullFlavor="NA" /> <code codeSystem="local" code="777 -3" displayName="Automated blood platelet count (count/volume)" /> < statusCode code="completed" /> <effectiveTime value="" /> <value unit="10*3/uL" xsi:type="PQ" value="313" /> < referenceRange> <observationRange> <text>130-400</text> </observationRange> </referenceRange> </observation > </component> <component> <observation moodCode="EVN" classCode="OBS"> <templateId root="16.840.1.113032.10.2022.4.2" /> <id nullFlavor="NA" /> <code codeSystem="local" code="72910-1 " displayName="Automated blood platelet mean volume measurement" /> < statusCode code="completed" /> <effectiveTime value="113426570454" /> <value unit="[foz_us]" xsi:type="PQ" value="10.7" /> < interpretationCode codeSystem="local" code="" /> <referenceRange> <observationRange> <text>7.4-10.4</text> </ observationRange> </referenceRange> </observation> </ component> <component> <observation moodCode="EVN" classCode="OBS"> <templateId root="16.840.1.294309.10.20.22.4.2" /> <id nullFlavor="NA" /> <code codeSystem="local" code="770-8" displayName= "Automated blood neutrophils/100 leukocytes" /> <statusCode code= "completed" /> <effectiveTime value="" /> <value unit="%" xsi:type="PQ" value="76" /> <interpretationCode codeSystem ="local" code="" /> <referenceRange> <observationRange> <text>42-75</text> </observationRange> </ referenceRange> </observation> </component> <component> <observation moodCode="EVN" classCode="OBS"> <templateId root= "2.16.840.1.028095.10..22.4.2" /> <id nullFlavor="NA" /> < code codeSystem="local" code="736-9" displayName="Automated blood lymphocytes/ 100 leukocytes" /> <statusCode code="completed" /> < effectiveTime value="044443596005" /> <value unit="%" xsi:type="PQ " value="16" /> <referenceRange> <observationRange> <text>12-44</text> </observationRange> </ referenceRange> </observation> </component> <component> <observation moodCode="EVN" classCode="OBS"> <templateId root= "2.16.840.1.950395.10...4.2" /> <id nullFlavor="NA" /> < code codeSystem="local" code="88618-1" displayName="Blood monocytes/100 leukocytes" /> <statusCode code="completed" /> <effectiveTime value="156465329714" /> <value unit="%" xsi:type="PQ" value="6" /> <referenceRange> <observationRange> <text>0-12 </text> </observationRange> </referenceRange> </ observation> </component> <component> <observation moodCode= "EVN" classCode="OBS"> <templateId root="2.16.840.1.638679.10.20.22.4.2 " /> <id nullFlavor="NA" /> <code codeSystem="local" code="713 -8" displayName="Automated blood eosinophils/100 leukocytes" /> < statusCode code="completed" /> <effectiveTime value="732347702636" /> <value unit="%" xsi:type="PQ" value="1" /> <referenceRange > <observationRange> <text>0-10</text> </ observationRange> </referenceRange> </observation> </ component> <component> <observation moodCode="EVN" classCode="OBS"> <templateId root="2.16.840.1.631414.10.20.22.4.2" /> <id nullFlavor="NA" /> <code codeSystem="local" code="706-2" displayName= "Automated blood basophils/100 leukocytes" /> <statusCode code= "completed" /> <effectiveTime value="705784871523" /> <value unit="%" xsi:type="PQ" value="0" /> <referenceRange> < observationRange> <text>0-10</text> </observationRange> </referenceRange> </observation> </component> < component> <observation moodCode="EVN" classCode="OBS"> < templateId root="2.16.840.1.756958.10.20.22.4.2" /> <id nullFlavor="NA " /> <code codeSystem="local" code="751-8" displayName="Blood neutrophils automated count (number/volume)" /> <statusCode code= "completed" /> <effectiveTime value="223816822222" /> <value unit="10*3" xsi:type="PQ" value="7.7" /> <referenceRange> < observationRange> <text>1.8-7.8</text> </ observationRange> </referenceRange> </observation> </ component> <component> <observation moodCode="EVN" classCode="OBS"> <templateId root="216.840.1.719210.10.20.22.4.2" /> <id nullFlavor="NA" /> <code codeSystem="local" code="731-0" displayName= "Blood lymphocytes automated count (number/volume)" /> <statusCode code ="completed" /> <effectiveTime value="" /> <value unit="10*3" xsi:type="PQ" value="1.6" /> <referenceRange> < observationRange> <text>1.0-4.0</text> </ observationRange> </referenceRange> </observation> </ component> <component> <observation moodCode="EVN" classCode="OBS"> <templateId root="16.840.1.176532.10.22.4.2" /> <id nullFlavor="NA" /> <code codeSystem="local" code="742-7" displayName= "Blood monocytes automated count (number/volume)" /> <statusCode code= "completed" /> <effectiveTime value="" /> <value unit="10*3" xsi:type="PQ" value="0.6" /> <referenceRange> < observationRange> <text>0.0-1.0</text> </ observationRange> </referenceRange> </observation> </ component> <component> <observation moodCode="EVN" classCode="OBS"> <templateId root="16.840.1.241563.10.20.22.4.2" /> <id nullFlavor="NA" /> <code codeSystem="local" code="711-2" displayName= "Automated eosinophil count" /> <statusCode code="completed" /> <effectiveTime value="" /> <value unit="10*3/uL" xsi: type="PQ" value="0.1" /> <referenceRange> <observationRange > <text>0.0-0.3</text> </observationRange> </ referenceRange> </observation> </component> <component> <observation moodCode="EVN" classCode="OBS"> <templateId root= "216.840.1.148611.10.2022.4.2" /> <id nullFlavor="NA" /> < code codeSystem="local" code="704-7" displayName="Automated blood basophil count (count/volume)" /> <statusCode code="completed" /> < effectiveTime value="" /> <value unit="10*3/uL" xsi:type= "PQ" value="0.0" /> <referenceRange> <observationRange> <text>0.0-0.1</text> </observationRange> </ referenceRange> </observation> </component> </organizer> </entry > <entry> <organizer moodCode="EVN" classCode="BATTERY"> <templateId root="06.27.840.1.316802.1022.4.1" /> <id nullFlavor="NA" /> <code codeSystem="local" code="73997-3" displayName="Whole blood basic metabolic panel " /> <statusCode code="completed" /> <component> <observation moodCode="EVN" classCode="OBS"> <templateId root= "16.840.1.356928.102022.4.2" /> <id nullFlavor="NA" /> < code codeSystem="local" code="2951-2" displayName="Serum or plasma sodium measurement (moles/volume)" /> <statusCode code="completed" /> <effectiveTime value="252084554665" /> <value unit="mmol/L" xsi:type= "PQ" value="140" /> <referenceRange> <observationRange> <text>135-145</text> </observationRange> </ referenceRange> </observation> </component> <component> <observation moodCode="EVN" classCode="OBS"> <templateId root= "2.16.840.1.869379.10.20.22.4.2" /> <id nullFlavor="NA" /> < code codeSystem="local" code="2823-3" displayName="Serum or plasma potassium measurement (moles/volume)" /> <statusCode code="completed" /> <effectiveTime value="802411412601" /> <value unit="mmol/L" xsi:type= "PQ" value="3.8" /> <referenceRange> <observationRange> <text>3.6-5.0</text> </observationRange> </ referenceRange> </observation> </component> <component> <observation moodCode="EVN" classCode="OBS"> <templateId root= "16.840.1.749587.10..22.4.2" /> <id nullFlavor="NA" /> < code codeSystem="local" code="2070" displayName="Serum or plasma chloride measurement (moles/volume)" /> <statusCode code="completed" /> <effectiveTime value="139724198138" /> <value unit="mmol/L" xsi:type= "PQ" value="107" /> <referenceRange> <observationRange> <text>98-107</text> </observationRange> </ referenceRange> </observation> </component> <component> <observation moodCode="EVN" classCode="OBS"> <templateId root= "216.840.1.121760.10.20.22.4.2" /> <id nullFlavor="NA" /> < code codeSystem="local" code="2028-01" displayName="Carbon dioxide" /> < statusCode code="completed" /> <effectiveTime value="508887788016" /> <value unit="mmol/L" xsi:type="PQ" value="25" /> < referenceRange> <observationRange> <text>21-32</text> </observationRange> </referenceRange> </observation> </component> <component> <observation moodCode="EVN" classCode= "OBS"> <templateId root="2.16.840.1.736826.10.20.22.4.2" /> < id nullFlavor="NA" /> <code codeSystem="local" code="49481-3" displayName="Serum or plasma anion gap determination (moles/volume)" /> <statusCode code="completed" /> <effectiveTime value="184329160540" / > <value unit="mmol/L" xsi:type="PQ" value="8" /> < referenceRange> <observationRange> <text>5-14</text> </observationRange> </referenceRange> </observation> </component> <component> <observation moodCode="EVN" classCode= "OBS"> <templateId root="2.16.840.1.912689.10.20.22.4.2" /> < id nullFlavor="NA" /> <code codeSystem="local" code="3094-0" displayName="Serum or plasma urea nitrogen measurement (mass/volume)" /> <statusCode code="completed" /> <effectiveTime value="883008023367" /> <value unit="mg/dL" xsi:type="PQ" value="15" /> < referenceRange> <observationRange> <text>7-18</text> </observationRange> </referenceRange> </observation> </component> <component> <observation moodCode="EVN" classCode= "OBS"> <templateId root="2.16.840.1.066861.10.20.22.4.2" /> < id nullFlavor="NA" /> <code codeSystem="local" code="2160-0" displayName="Serum or plasma creatinine measurement (mass/volume)" /> < statusCode code="completed" /> <effectiveTime value="014042659219" /> <value unit="mg/dL" xsi:type="PQ" value="0.72" /> < referenceRange> <observationRange> <text>0.60-1.30</text > </observationRange> </referenceRange> </observation > </component> <component> <observation moodCode="EVN" classCode="OBS"> <templateId root="216.840.1.084173.10...4.2" /> <id nullFlavor="NA" /> <code codeSystem="local" code="3097-3" displayName="Serum or plasma urea nitrogen/creatinine mass ratio" /> < statusCode code="completed" /> <effectiveTime value="948382674074" /> <value unit="" xsi:type="PQ" value="21" /> <referenceRange> <observationRange> <text>NRG</text> </ observationRange> </referenceRange> </observation> </ component> <component> <observation moodCode="EVN" classCode="OBS"> <templateId root="2.16.840.1.569125.10.20.22.4.2" /> <id nullFlavor="NA" /> <code codeSystem="local" code="66107-2" displayName= "Serum or plasma creatinine measurement with calculation of estimated glomerular filtration rate" /> <statusCode code="completed" /> <effectiveTime value="077485376624" /> <value unit="" xsi:type="PQ" value=">" /> <referenceRange> <observationRange> <text>NRG</text> </observationRange> </referenceRange > </observation> </component> <component> <observation moodCode="EVN" classCode="OBS"> <templateId root= "2.16.840.1.756356.10.20.22.4.2" /> <id nullFlavor="NA" /> < code codeSystem="local" code="2345-7" displayName="Serum or plasma glucose measurement (mass/volume)" /> <statusCode code="completed" /> <effectiveTime value="507819512729" /> <value unit="mg/dL" xsi:type="PQ " value="82" /> <referenceRange> <observationRange> <text>70-105</text> </observationRange> </ referenceRange> </observation> </component> <component> <observation moodCode="EVN" classCode="OBS"> <templateId root= "216.840.1.826867.10.20.22.4.2" /> <id nullFlavor="NA" /> < code codeSystem="local" code="92489-2" displayName="Serum or plasma calcium measurement (mass/volume)" /> <statusCode code="completed" /> <effectiveTime value="941543222587" /> <value unit="mg/dL" xsi:type="PQ " value="9.6" /> <referenceRange> <observationRange> <text>8.5-10.1</text> </observationRange> </ referenceRange> </observation> </component> </organizer> </entry > <entry> <organizer moodCode="EVN" classCode="BATTERY"> <templateId root="2.16.840.1.038232.10.20.22.4.1" /> <id nullFlavor="NA" /> <code codeSystem="local" code="2117-12" displayName="Serum or plasma choriogonadotropin ( test) detection" /> <statusCode code= "completed" /> <component> <observation moodCode="EVN" classCode= "OBS"> <templateId root="216.840.1.982676.10.20.22.4.2" /> < id nullFlavor="NA" /> <code codeSystem="local" code="2117-12" displayName="Serum or plasma choriogonadotropin ( test) detection" /> <statusCode code="completed" /> <effectiveTime value= "028815572438" /> <value unit="" xsi:type="PQ" value="NEGATIVE" /> <referenceRange> <observationRange> <text>NEGATIVE </text> </observationRange> </referenceRange> </ observation> </component> </organizer> </entry> <entry> <organizer moodCode="EVN" classCode="BATTERY"> <templateId root= "216.840.1.111025.10.20.22.4.1" /> <id nullFlavor="NA" /> <code codeSystem="local" code="600-7" displayName="Bacterial blood culture" /> < statusCode code="completed" /> <component> <observation moodCode= "EVN" classCode="OBS"> <templateId root="216.840.1.376453.10.20.22.4.2 " /> <id nullFlavor="NA" /> <code codeSystem="local" code="600 -7" displayName="Bacterial blood culture" /> <statusCode code= "completed" /> <effectiveTime value="494112105219" /> <value unit="" xsi:type="PQ" value="NG" /> <referenceRange> < observationRange> <text>NRG</text> </observationRange> </referenceRange> </observation> </component> </ organizer> </entry> <entry> <organizer moodCode="EVN" classCode="BATTERY"> <templateId root="06.27.840.1.898507.10...4.1" /> <id nullFlavor= "NA" /> <code codeSystem="local" code="20573-3" displayName="Methicillin resistant Staphylococcus aureus (MRSA) screening culture" /> <statusCode code="completed" /> <component> <observation moodCode="EVN" classCode="OBS"> <templateId root="06.27.840.1.644378.10..4.2" /> <id nullFlavor="NA" /> <code codeSystem="local" code="MRSARES " displayName="MRSA SCREEN RESULT" /> <statusCode code="completed" /> <effectiveTime value="013397022309" /> <value unit="" xsi:type ="PQ" value="MRSA ISOLATED" /> <interpretationCode codeSystem="local" code="*" /> <referenceRange> <observationRange> <text>NRG</text> </observationRange> </referenceRange> </observation> </component> </organizer> </entry> <entry> < organizer moodCode="EVN" classCode="BATTERY"> <templateId root= "06.27.840.1.888381.02.28.22.4.1" /> <id nullFlavor="NA" /> <code codeSystem="local" code="600-7" displayName="Bacterial blood culture" /> < statusCode code="completed" /> <component> <observation moodCode= "EVN" classCode="OBS"> <templateId root="16.840.1.766900.10..22.4.2 " /> <id nullFlavor="NA" /> <code codeSystem="local" code="600 -7" displayName="Bacterial blood culture" /> <statusCode code= "completed" /> <effectiveTime value="678215609820" /> <value unit="" xsi:type="PQ" value="NG" /> <referenceRange> < observationRange> <text>NRG</text> </observationRange> </referenceRange> </observation> </component> </ organizer> </entry> <entry> <organizer moodCode="EVN" classCode="BATTERY"> <templateId root="2.16.840.1.188606.10..22.4.1" /> <id nullFlavor= "NA" /> <code codeSystem="local" code="13085-4" displayName="Urine drug screening test" /> <statusCode code="completed" /> <component> <observation moodCode="EVN" classCode="OBS"> <templateId root= "2.16.840.1.325093.10..22.4.2" /> <id nullFlavor="NA" /> < code codeSystem="local" code="94574-6" displayName="Urine phencyclidine detection by screening method" /> <statusCode code="completed" /> <effectiveTime value="" /> <value unit="" xsi:type="PQ " value="NEGATIVE" /> <referenceRange> <observationRange> <text>NEGATIVE</text> </observationRange> </ referenceRange> </observation> </component> <component> <observation moodCode="EVN" classCode="OBS"> <templateId root= "2.16.840.1.222500.10..22.4.2" /> <id nullFlavor="NA" /> < code codeSystem="local" code="76633-8" displayName="Urine benzodiazepines detection by screening method" /> <statusCode code="completed" /> <effectiveTime value="" /> <value unit="" xsi:type="PQ " value="NEGATIVE" /> <referenceRange> <observationRange> <text>NEGATIVE</text> </observationRange> </ referenceRange> </observation> </component> <component> <observation moodCode="EVN" classCode="OBS"> <templateId root= "2.16.840.1.924302.10..22.4.2" /> <id nullFlavor="NA" /> < code codeSystem="local" code="3397-7" displayName="Urine cocaine detection" /> <statusCode code="completed" /> <effectiveTime value= "" /> <value unit="" xsi:type="PQ" value="NEGATIVE" /> <referenceRange> <observationRange> <text>NEGATIVE </text> </observationRange> </referenceRange> </ observation> </component> <component> <observation moodCode= "EVN" classCode="OBS"> <templateId root="216.840.1.865159.10..22.4.2 " /> <id nullFlavor="NA" /> <code codeSystem="local" code= "51044-0" displayName="Urine amphetamines detection by screening method" /> <statusCode code="completed" /> <effectiveTime value= "" /> <value unit="" xsi:type="PQ" value="POSITIVE" /> <interpretationCode codeSystem="local" code="*" /> < referenceRange> <observationRange> <text>NEGATIVE</text > </observationRange> </referenceRange> </observation > </component> <component> <observation moodCode="EVN" classCode="OBS"> <templateId root="216.840.1.177078.10.20.22.4.2" /> <id nullFlavor="NA" /> <code codeSystem="local" code="18779-7 " displayName="Urine methamphetamine detection by screening method" /> <statusCode code="completed" /> <effectiveTime value="" /> <value unit="" xsi:type="PQ" value="NEGATIVE" /> < referenceRange> <observationRange> <text>NEGATIVE</text > </observationRange> </referenceRange> </observation > </component> <component> <observation moodCode="EVN" classCode="OBS"> <templateId root="2.16.840.1.890453.10.20.22.4.2" /> <id nullFlavor="NA" /> <code codeSystem="local" code="99146-7 " displayName="Urine cannabinoids detection by screening method" /> < statusCode code="completed" /> <effectiveTime value="" /> <value unit="" xsi:type="PQ" value="POSITIVE" /> < interpretationCode codeSystem="local" code="*" /> <referenceRange> <observationRange> <text>NEGATIVE</text> </ observationRange> </referenceRange> </observation> </ component> <component> <observation moodCode="EVN" classCode="OBS"> <templateId root="2.16.840.1.372090.10.20.22.4.2" /> <id nullFlavor="NA" /> <code codeSystem="local" code="84304-7" displayName= "Urine opiates detection by screening method" /> <statusCode code= "completed" /> <effectiveTime value="" /> <value unit="" xsi:type="PQ" value="NEGATIVE" /> <referenceRange> < observationRange> <text>NEGATIVE</text> </ observationRange> </referenceRange> </observation> </ component> <component> <observation moodCode="EVN" classCode="OBS"> <templateId root="2.16.840.1.935528.10..22.4.2" /> <id nullFlavor="NA" /> <code codeSystem="local" code="3377-9" displayName= "Urine barbiturates detection" /> <statusCode code="completed" /> <effectiveTime value="" /> <value unit="" xsi:type="PQ " value="NEGATIVE" /> <referenceRange> <observationRange> <text>NEGATIVE</text> </observationRange> </ referenceRange> </observation> </component> <component> <observation moodCode="EVN" classCode="OBS"> <templateId root= "216.840.1.034210.10...4.2" /> <id nullFlavor="NA" /> < code codeSystem="local" code="35365-4" displayName="Screening urine tricyclic antidepressants detection" /> <statusCode code="completed" /> <effectiveTime value="" /> <value unit="" xsi:type="PQ" value="NEGATIVE" /> <referenceRange> <observationRange> <text>NEGATIVE</text> </observationRange> </ referenceRange> </observation> </component> <component> <observation moodCode="EVN" classCode="OBS"> <templateId root= "16.840.1.975911.10.22.4.2" /> <id nullFlavor="NA" /> < code codeSystem="local" code="79322-8" displayName="Urine methadone detection by screening method" /> <statusCode code="completed" /> < effectiveTime value="" /> <value unit="" xsi:type="PQ" value="NEGATIVE" /> <referenceRange> <observationRange> <text>NEGATIVE</text> </observationRange> </ referenceRange> </observation> </component> <component> <observation moodCode="EVN" classCode="OBS"> <templateId root= "2.16.840.1.154394.10..22.4.2" /> <id nullFlavor="NA" /> < code codeSystem="local" code="18488-3" displayName="Urine oxycodone detection" / > <statusCode code="completed" /> <effectiveTime value= "" /> <value unit="" xsi:type="PQ" value="NEGATIVE" /> <referenceRange> <observationRange> <text>NEGATIVE </text> </observationRange> </referenceRange> </ observation> </component> <component> <observation moodCode= "EVN" classCode="OBS"> <templateId root="2.16.840.1.300660.10...4.2 " /> <id nullFlavor="NA" /> <code codeSystem="local" code= "52725-6" displayName="Urine propoxyphene detection" /> <statusCode code="completed" /> <effectiveTime value="" /> < value unit="" xsi:type="PQ" value="NEGATIVE" /> <referenceRange> <observationRange> <text>NEGATIVE</text> </ observationRange> </referenceRange> </observation> </ component> </organizer> </entry> <entry> <organizer moodCode="EVN" classCode="BATTERY"> <templateId root="2.16.840.1.021526.10..22.4.1" /> <id nullFlavor="NA" /> <code codeSystem="local" code="68641-7" displayName="Bacteria identification in isolate by anaerobe culture" /> < statusCode code="completed" /> <component> <observation moodCode= "EVN" classCode="OBS"> <templateId root="216.840.1.846039.10..22.4.2 " /> <id nullFlavor="NA" /> <code codeSystem="local" code= "17986-3" displayName="Bacteria identification in isolate by anaerobe culture" / > <statusCode code="completed" /> <effectiveTime value= "325025670415" /> <value unit="" xsi:type="PQ" value="NOANA" /> <referenceRange> <observationRange> <text>NRG</text> </observationRange> </referenceRange> </observation > </component> </organizer> </entry> <entry> <organizer moodCode= "EVN" classCode="BATTERY"> <templateId root="2.16.840.1.464579.10.20.22.4.1 " /> <id nullFlavor="NA" /> <code codeSystem="local" code="664-3" displayName="Gram stain microscopy" /> <statusCode code="completed" /> <component> <observation moodCode="EVN" classCode="OBS"> < templateId root="2.16.840.1.956069.10.20.22.4.2" /> <id nullFlavor="NA " /> <code codeSystem="local" code="664-3" displayName="Gram stain microscopy" /> <statusCode code="completed" /> <effectiveTime value="443218306582" /> <value unit="" xsi:type="PQ" value="REPORTED ,0605." /> <referenceRange> <observationRange> <text>NRG</text> </observationRange> </ referenceRange> </observation> </component> </organizer> </entry > <entry> <organizer moodCode="EVN" classCode="BATTERY"> <templateId root="216.840.1.855217.10..22.4.1" /> <id nullFlavor="NA" /> <code codeSystem="local" code="6462-6" displayName="Bacteria identification in wound by culture" /> <statusCode code="completed" /> <component> < observation moodCode="EVN" classCode="OBS"> <templateId root= "06.27.840.1.503723.02.28.22.4.2" /> <id nullFlavor="NA" /> < code codeSystem="local" code="6462-6" displayName="Bacteria identification in wound by culture" /> <statusCode code="completed" /> < effectiveTime value="248216300199" /> <value unit="" xsi:type="PQ" value="SEE REPORT" /> <referenceRange> <observationRange> <text>NRG</text> </observationRange> </ referenceRange> </observation> </component> <component> <observation moodCode="EVN" classCode="OBS"> <templateId root= "06.27.840.1.652156.02.28.22.4.2" /> <id nullFlavor="NA" /> < code codeSystem="local" code="FTEXTERNAL" displayName="FREE TEXT EXTERNAL" /> <statusCode code="completed" /> <effectiveTime value= "362869724673" /> <value unit="" xsi:type="PQ" value="METHICILLIN- RESISTANT STAPH AUREUS" /> <referenceRange> < observationRange> <text>NRG</text> </observationRange> </referenceRange> </observation> </component> < component> <observation moodCode="EVN" classCode="OBS"> < templateId root="16.840.1.172157.10..4.2" /> <id nullFlavor="NA " /> <code codeSystem="local" code="G" displayName="QUANTITY OF GROWTH " /> <statusCode code="completed" /> <effectiveTime value= "" /> <value unit="" xsi:type="PQ" value="." /> < referenceRange> <observationRange> <text>NRG</text> </observationRange> </referenceRange> </observation> </component> </organizer> </entry> <entry> <organizer moodCode="EVN" classCode="BATTERY"> <templateId root="06.27.840.1.045737.10..22.4.1" /> <id nullFlavor="NA" /> <code codeSystem="local" code="RML-SENS" displayName="RML Sensitivity Panel" /> <statusCode code="completed" /> <component> <observation moodCode="EVN" classCode="OBS"> < templateId root="06.27.840.1.944570.10..22.4.2" /> <id nullFlavor="NA " /> <code codeSystem="local" code="383-0" displayName="Oxacillin susceptibility test by minimum inhibitory concentration" /> < statusCode code="completed" /> <effectiveTime value="443211399169" /> <value unit="" xsi:type="PQ" value="R" /> <interpretationCode codeSystem="local" code="*" /> <referenceRange> < observationRange> <text>NRG</text> </observationRange> </referenceRange> </observation> </component> < component> <observation moodCode="EVN" classCode="OBS"> < templateId root="06.27.840.1.239317...22.4.2" /> <id nullFlavor="NA " /> <code codeSystem="local" code="193-3" displayName="Clindamycin susceptibility test by minimum inhibitory concentration" /> < statusCode code="completed" /> <effectiveTime value="672339467803" /> <value unit="" xsi:type="PQ" value="<=" /> < interpretationCode codeSystem="local" code="*" /> <referenceRange> <observationRange> <text>NRG</text> </ observationRange> </referenceRange> </observation> </ component> <component> <observation moodCode="EVN" classCode="OBS"> <templateId root="2.16.840.1.287761.10.20.22.4.2" /> <id nullFlavor="NA" /> <code codeSystem="local" code="233-7" displayName= "Erythromycin susceptibility test by minimum inhibitory concentration" /> <statusCode code="completed" /> <effectiveTime value="833077531821 " /> <value unit="" xsi:type="PQ" value=">" /> < interpretationCode codeSystem="local" code="*" /> <referenceRange> <observationRange> <text>NRG</text> </ observationRange> </referenceRange> </observation> </ component> <component> <observation moodCode="EVN" classCode="OBS"> <templateId root="2.16.840.1.676204.10.20.22.4.2" /> <id nullFlavor="NA" /> <code codeSystem="local" code="516-5" displayName= "Trimethoprim/sulfamethoxazole susceptibility test by minimum inhibitoryconcentration" /> <statusCode code="completed" /> < effectiveTime value="843833370062" /> <value unit="" xsi:type="PQ" value="S" /> <interpretationCode codeSystem="local" code="*" /> <referenceRange> <observationRange> <text>NRG</text> </observationRange> </referenceRange> </observation > </component> <component> <observation moodCode="EVN" classCode="OBS"> <templateId root="216.840.1.062578.10..22.4.2" /> <id nullFlavor="NA" /> <code codeSystem="local" code="524-9" displayName="Vancomycin susceptibility test by minimum inhibitory concentration " /> <statusCode code="completed" /> <effectiveTime value= "180730818676" /> <value unit="" xsi:type="PQ" value="1" /> < interpretationCode codeSystem="local" code="*" /> <referenceRange> <observationRange> <text>NRG</text> </ observationRange> </referenceRange> </observation> </ component> <component> <observation moodCode="EVN" classCode="OBS"> <templateId root="2.840.1.110367.10..4.2" /> <id nullFlavor="NA" /> <code codeSystem="local" code="60341-0" displayName= "Levofloxacin susceptibility test by minimum inhibitory concentration" /> <statusCode code="completed" /> <effectiveTime value="541120491772 " /> <value unit="" xsi:type="PQ" value="4" /> < interpretationCode codeSystem="local" code="*" /> <referenceRange> <observationRange> <text>NRG</text> </ observationRange> </referenceRange> </observation> </ component> <component> <observation moodCode="EVN" classCode="OBS"> <templateId root="216.840.1.597506.10..22.4.2" /> <id nullFlavor="NA" /> <code codeSystem="local" code="428-3" displayName= "Rifampin susceptibility test by minimum inhibitory concentration" /> < statusCode code="completed" /> <effectiveTime value="817224763726" /> <value unit="" xsi:type="PQ" value="<=" /> < interpretationCode codeSystem="local" code="*" /> <referenceRange> <observationRange> <text>NRG</text> </ observationRange> </referenceRange> </observation> </ component> <component> <observation moodCode="EVN" classCode="OBS"> <templateId root="16.840.1.104400.10..22.4.2" /> <id nullFlavor="NA" /> <code codeSystem="local" code="76-0" displayName= "Cefazolin susceptibility test by minimum inhibitory concentration" /> <statusCode code="completed" /> <effectiveTime value="653805490653" /> <value unit="" xsi:type="PQ" value=">" /> < interpretationCode codeSystem="local" code="*" /> <referenceRange> <observationRange> <text>NRG</text> </ observationRange> </referenceRange> </observation> </ component> <component> <observation moodCode="EVN" classCode="OBS"> <templateId root="16.840.1.438519.10.20.22.4.2" /> <id nullFlavor="NA" /> <code codeSystem="local" code="71892-5" displayName= "Linezolid susceptibility test by minimum inhibitory concentration" /> <statusCode code="completed" /> <effectiveTime value="811782098675" /> <value unit="" xsi:type="PQ" value="2" /> < interpretationCode codeSystem="local" code="*" /> <referenceRange> <observationRange> <text>NRG</text> </ observationRange> </referenceRange> </observation> </ component> <component> <observation moodCode="EVN" classCode="OBS"> <templateId root="16.840.1.936014.10..22.4.2" /> <id nullFlavor="NA" /> <code codeSystem="local" code="392-1" displayName= "Penicillin G susceptibility test by minimum inhibitory concentration" /> <statusCode code="completed" /> <effectiveTime value=" " /> <value unit="" xsi:type="PQ" value=">" /> < interpretationCode codeSystem="local" code="*" /> <referenceRange> <observationRange> <text>NRG</text> </ observationRange> </referenceRange> </observation> </ component> <component> <observation moodCode="EVN" classCode="OBS"> <templateId root="16.840.1.961509.10..4.2" /> <id nullFlavor="NA" /> <code codeSystem="local" code="71638-7" displayName= "Moxifloxacin susceptibility test by minimum inhibitory concentration" /> <statusCode code="completed" /> <effectiveTime value=" " /> <value unit="" xsi:type="PQ" value="S" /> < interpretationCode codeSystem="local" code="*" /> <referenceRange> <observationRange> <text>NRG</text> </ observationRange> </referenceRange> </observation> </ component> <component> <observation moodCode="EVN" classCode="OBS"> <templateId root="216.840.1.788647.10..22.4.2" /> <id nullFlavor="NA" /> <code codeSystem="local" code="335-0" displayName= "Minocycline sus SHAYNA" /> <statusCode code="completed" /> < effectiveTime value="" /> <value unit="" xsi:type="PQ" value="<=" /> <interpretationCode codeSystem="local" code="*" /> <referenceRange> <observationRange> <text>NRG</ text> </observationRange> </referenceRange> </ observation> </component> </organizer> </entry> <entry> <organizer moodCode="EVN" classCode="BATTERY"> <templateId root= "216.840.1.487289.1022.4.1" /> <id nullFlavor="NA" /> <code codeSystem="local" code="09982-1" displayName="Complete urinalysis with reflex to culture" /> <statusCode code="completed" /> <component> < observation moodCode="EVN" classCode="OBS"> <templateId root= "216.840.1.547699...4.2" /> <id nullFlavor="NA" /> < code codeSystem="local" code="5778-6" displayName="Urine color determination" / > <statusCode code="completed" /> <effectiveTime value= "340042429283" /> <value unit="" xsi:type="PQ" value="YELLOW" /> <referenceRange> <observationRange> <text>NRG</text > </observationRange> </referenceRange> </observation > </component> <component> <observation moodCode="EVN" classCode="OBS"> <templateId root="06.27.840.1.424443.10.22.4.2" /> <id nullFlavor="NA" /> <code codeSystem="local" code="43574-9 " displayName="Urine clarity determination" /> <statusCode code= "completed" /> <effectiveTime value="215427933489" /> <value unit="" xsi:type="PQ" value="VERY CLOUDY" /> <interpretationCode codeSystem="local" code="*" /> <referenceRange> < observationRange> <text>NRG</text> </observationRange> </referenceRange> </observation> </component> < component> <observation moodCode="EVN" classCode="OBS"> < templateId root="216.840.1.041738.10.20.22.4.2" /> <id nullFlavor="NA " /> <code codeSystem="local" code="5803-2" displayName="Urine pH measurement by test strip" /> <statusCode code="completed" /> <effectiveTime value="516973962195" /> <value unit="" xsi:type="PQ" value="6.5" /> <referenceRange> <observationRange> <text>5-9</text> </observationRange> </referenceRange> </observation> </component> <component> <observation moodCode="EVN" classCode="OBS"> <templateId root= "06.27.840.1.399562.10.22.4.2" /> <id nullFlavor="NA" /> < code codeSystem="local" code="5811-5" displayName="Specific gravity of urine by test strip" /> <statusCode code="completed" /> <effectiveTime value="152631493245" /> <value unit="" xsi:type="PQ" value="1.010" /> <interpretationCode codeSystem="local" code="" /> < referenceRange> <observationRange> <text>1.016-1.022</ text> </observationRange> </referenceRange> </ observation> </component> <component> <observation moodCode= "EVN" classCode="OBS"> <templateId root="06.27.840.1.167119.10.20.22.4.2 " /> <id nullFlavor="NA" /> <code codeSystem="local" code= "92615-2" displayName="Urine protein assay by test strip, semi-quantitative" /> <statusCode code="completed" /> <effectiveTime value= "733887966582" /> <value unit="" xsi:type="PQ" value="4+" /> < referenceRange> <observationRange> <text>NEGATIVE</text > </observationRange> </referenceRange> </observation > </component> <component> <observation moodCode="EVN" classCode="OBS"> <templateId root="2.16.840.1.120771.10..22.4.2" /> <id nullFlavor="NA" /> <code codeSystem="local" code="88936-5 " displayName="Urine glucose detection by automated test strip" /> < statusCode code="completed" /> <effectiveTime value="181439480222" /> <value unit="" xsi:type="PQ" value="NEGATIVE" /> < referenceRange> <observationRange> <text>NEGATIVE</text > </observationRange> </referenceRange> </observation > </component> <component> <observation moodCode="EVN" classCode="OBS"> <templateId root="2.16.840.1.007923.10.20.22.4.2" /> <id nullFlavor="NA" /> <code codeSystem="local" code="91885-5 " displayName="Erythrocytes detection in urine sediment by light microscopy" /> <statusCode code="completed" /> <effectiveTime value= "781411109832" /> <value unit="" xsi:type="PQ" value="4+" /> < interpretationCode codeSystem="local" code="*" /> <referenceRange> <observationRange> <text>NEGATIVE</text> </ observationRange> </referenceRange> </observation> </ component> <component> <observation moodCode="EVN" classCode="OBS"> <templateId root="216.840.1.563159.10..22.4.2" /> <id nullFlavor="NA" /> <code codeSystem="local" code="25184-4" displayName= "Urine ketones detection by automated test strip" /> <statusCode code= "completed" /> <effectiveTime value="721358024289" /> <value unit="" xsi:type="PQ" value="1+" /> <interpretationCode codeSystem= "local" code="*" /> <referenceRange> <observationRange> <text>NEGATIVE</text> </observationRange> </ referenceRange> </observation> </component> <component> <observation moodCode="EVN" classCode="OBS"> <templateId root= "216.840.1.074164...4.2" /> <id nullFlavor="NA" /> < code codeSystem="local" code="5802-4" displayName="Urine nitrite detection by test strip" /> <statusCode code="completed" /> <effectiveTime value="241465012067" /> <value unit="" xsi:type="PQ" value="POSITIVE" / > <interpretationCode codeSystem="local" code="*" /> < referenceRange> <observationRange> <text>NEGATIVE</text > </observationRange> </referenceRange> </observation > </component> <component> <observation moodCode="EVN" classCode="OBS"> <templateId root="2.16.840.1.671863.10..22.4.2" /> <id nullFlavor="NA" /> <code codeSystem="local" code="5770-3" displayName="Urine total bilirubin detection by test strip" /> < statusCode code="completed" /> <effectiveTime value="399811049649" /> <value unit="" xsi:type="PQ" value="NEGATIVE" /> < referenceRange> <observationRange> <text>NEGATIVE</text > </observationRange> </referenceRange> </observation > </component> <component> <observation moodCode="EVN" classCode="OBS"> <templateId root="216.840.1.147654.10..4.2" /> <id nullFlavor="NA" /> <code codeSystem="local" code="63297-7 " displayName="Urine urobilinogen measurement by automated test strip (mass/ volume)" /> <statusCode code="completed" /> <effectiveTime value="062241721879" /> <value unit="mg/dL" xsi:type="PQ" value="4" /> <interpretationCode codeSystem="local" code="*" /> < referenceRange> <observationRange> <text>NORMAL</text> </observationRange> </referenceRange> </observation> </component> <component> <observation moodCode="EVN" classCode ="OBS"> <templateId root="16.840.1.203271.02.28.22.4.2" /> < id nullFlavor="NA" /> <code codeSystem="local" code="5799-2" displayName="Urine leukocyte esterase detection by dipstick" /> < statusCode code="completed" /> <effectiveTime value="785181836449" /> <value unit="" xsi:type="PQ" value="3+" /> < interpretationCode codeSystem="local" code="*" /> <referenceRange> <observationRange> <text>NEGATIVE</text> </ observationRange> </referenceRange> </observation> </ component> <component> <observation moodCode="EVN" classCode="OBS"> <templateId root="16.840.1.511908.10..22.4.2" /> <id nullFlavor="NA" /> <code codeSystem="local" code="37122-0" displayName= "Automated urine sediment erythrocyte count by microscopy (number/high power field)" /> <statusCode code="completed" /> <effectiveTime value="891112669701" /> <value unit="[HPF]" xsi:type="PQ" value="" /> <interpretationCode codeSystem="local" code="*" /> < referenceRange> <observationRange> <text>NRG</text> </observationRange> </referenceRange> </observation> </component> <component> <observation moodCode="EVN" classCode= "OBS"> <templateId root="06.27.840.1.488628.1022.4.2" /> < id nullFlavor="NA" /> <code codeSystem="local" code="5821-4" displayName="Automated urine sediment leukocyte count by microscopy (number/ high power field)" /> <statusCode code="completed" /> < effectiveTime value="257740462673" /> <value unit="" xsi:type="PQ" value="TNTC" /> <interpretationCode codeSystem="local" code="*" /> <referenceRange> <observationRange> <text>NRG</ text> </observationRange> </referenceRange> </ observation> </component> <component> <observation moodCode= "EVN" classCode="OBS"> <templateId root="06.27.840.1.549933.10.20.22.4.2 " /> <id nullFlavor="NA" /> <code codeSystem="local" code= "47259-7" displayName="Bacteria detection in urine sediment by light microscopy " /> <statusCode code="completed" /> <effectiveTime value= "649581321547" /> <value unit="" xsi:type="PQ" value="LARGE" /> <interpretationCode codeSystem="local" code="*" /> <referenceRange> <observationRange> <text>NRG</text> </ observationRange> </referenceRange> </observation> </ component> <component> <observation moodCode="EVN" classCode="OBS"> <templateId root="216.840.1.627514.10.22.4.2" /> <id nullFlavor="NA" /> <code codeSystem="local" code="27624-8" displayName= "Squamous epithelial cells detection in urine sediment by light microscopy" /> <statusCode code="completed" /> <effectiveTime value= "359735306503" /> <value unit="" xsi:type="PQ" value="10-25" /> <interpretationCode codeSystem="local" code="*" /> <referenceRange> <observationRange> <text>NRG</text> </ observationRange> </referenceRange> </observation> </ component> <component> <observation moodCode="EVN" classCode="OBS"> <templateId root="06.27.840.1.567385.10.4.2" /> <id nullFlavor="NA" /> <code codeSystem="local" code="89787-8" displayName= "Crystals detection in urine sediment by light microscopy" /> < statusCode code="completed" /> <effectiveTime value="602007976847" /> <value unit="" xsi:type="PQ" value="NONE" /> <referenceRange> <observationRange> <text>NRG</text> </ observationRange> </referenceRange> </observation> </ component> <component> <observation moodCode="EVN" classCode="OBS"> <templateId root="16.840.1.967599.10.2022.4.2" /> <id nullFlavor="NA" /> <code codeSystem="local" code="05346-9" displayName= "Casts detection in urine sediment by light microscopy" /> <statusCode code="completed" /> <effectiveTime value="479576701438" /> < value unit="" xsi:type="PQ" value="NONE" /> <referenceRange> <observationRange> <text>NRG</text> </observationRange > </referenceRange> </observation> </component> < component> <observation moodCode="EVN" classCode="OBS"> < templateId root="2.16.840.1.014699.10.20.22.4.2" /> <id nullFlavor="NA " /> <code codeSystem="local" code="8247-9" displayName="Mucus detection in urine sediment by light microscopy" /> <statusCode code= "completed" /> <effectiveTime value="340570965171" /> <value unit="" xsi:type="PQ" value="NEGATIVE" /> <referenceRange> < observationRange> <text>NRG</text> </observationRange> </referenceRange> </observation> </component> < component> <observation moodCode="EVN" classCode="OBS"> < templateId root="2.16.840.1.095214.10.20.22.4.2" /> <id nullFlavor="NA " /> <code codeSystem="local" code="79734-2" displayName="Complete urinalysis with reflex to culture" /> <statusCode code="completed" /> <effectiveTime value="224005611840" /> <value unit="" xsi:type ="PQ" value="YES" /> <referenceRange> <observationRange> <text>NRG</text> </observationRange> </ referenceRange> </observation> </component> </organizer> </entry > <entry> <organizer moodCode="EVN" classCode="BATTERY"> <templateId root="16.840.1.770913.10...4.1" /> <id nullFlavor="NA" /> <code codeSystem="local" code="630-4" displayName="Bacterial urine culture" /> < statusCode code="completed" /> <component> <observation moodCode= "EVN" classCode="OBS"> <templateId root="06.27.840.1.340054.02.28.22.4.2 " /> <id nullFlavor="NA" /> <code codeSystem="local" code="630 -4" displayName="Bacterial urine culture" /> <statusCode code= "completed" /> <effectiveTime value="812338449640" /> <value unit="" xsi:type="PQ" value="323178423" /> <referenceRange> <observationRange> <text>NRG</text> </observationRange> </referenceRange> </observation> </component> < component> <observation moodCode="EVN" classCode="OBS"> < templateId root="840.1.329712.02.28.22.4.2" /> <id nullFlavor="NA " /> <code codeSystem="local" code="CC" displayName="COLONY COUNT" /> <statusCode code="completed" /> <effectiveTime value= "110208547066" /> <value unit="" xsi:type="PQ" value=">100,000/ML" / > <referenceRange> <observationRange> <text>NRG </text> </observationRange> </referenceRange> </ observation> </component> <component> <observation moodCode= "EVN" classCode="OBS"> <templateId root="06.27.840.1.157041.02.28.22.4.2 " /> <id nullFlavor="NA" /> <code codeSystem="local" code= "FTXENTRY" displayName="FTX;REPORTABLE" /> <statusCode code="completed " /> <effectiveTime value="815253561287" /> <value unit="" xsi :type="PQ" value="SUSCEPTIBILITY REPORTED 03-21-2018,1005" /> < referenceRange> <observationRange> <text>NRG</text> </observationRange> </referenceRange> </observation> </component> </organizer> </entry> <entry> <organizer moodCode="EVN" classCode="BATTERY"> <templateId root="216.840.1.772859.10..22.4.1" /> <id nullFlavor="NA" /> <code codeSystem="local" code="RML-SENS" displayName="RML Sensitivity Panel" /> <statusCode code="completed" /> <component> <observation moodCode="EVN" classCode="OBS"> < templateId root="216.840.1.934077.10..22.4.2" /> <id nullFlavor="NA " /> <code codeSystem="local" code="267-5" displayName="Gentamicin susceptibility test by minimum inhibitory concentration" /> < statusCode code="completed" /> <effectiveTime value="855319581164" /> <value unit="" xsi:type="PQ" value="<=" /> < interpretationCode codeSystem="local" code="*" /> <referenceRange> <observationRange> <text>NRG</text> </ observationRange> </referenceRange> </observation> </ component> <component> <observation moodCode="EVN" classCode="OBS"> <templateId root="216.840.1.390054.10..22.4.2" /> <id nullFlavor="NA" /> <code codeSystem="local" code="516-5" displayName= "Trimethoprim/sulfamethoxazole susceptibility test by minimum inhibitoryconcentration" /> <statusCode code="completed" /> < effectiveTime value="246828989447" /> <value unit="" xsi:type="PQ" value=">" /> <interpretationCode codeSystem="local" code="*" /> <referenceRange> <observationRange> <text>NRG</ text> </observationRange> </referenceRange> </ observation> </component> <component> <observation moodCode= "EVN" classCode="OBS"> <templateId root="2.16.840.1.113651.10..4.2 " /> <id nullFlavor="NA" /> <code codeSystem="local" code= "49934-8" displayName="Levofloxacin susceptibility test by minimum inhibitory concentration" /> <statusCode code="completed" /> < effectiveTime value="182842835140" /> <value unit="" xsi:type="PQ" value="<=" /> <interpretationCode codeSystem="local" code="*" /> <referenceRange> <observationRange> <text>NRG</ text> </observationRange> </referenceRange> </ observation> </component> <component> <observation moodCode= "EVN" classCode="OBS"> <templateId root="216.840.1.966123.10.22.4.2 " /> <id nullFlavor="NA" /> <code codeSystem="local" code="28- 1" displayName="Ampicillin susceptibility test by minimum inhibitory concentration" /> <statusCode code="completed" /> < effectiveTime value="093968960436" /> <value unit="" xsi:type="PQ" value=">" /> <interpretationCode codeSystem="local" code="*" /> <referenceRange> <observationRange> <text>NRG</ text> </observationRange> </referenceRange> </ observation> </component> <component> <observation moodCode= "EVN" classCode="OBS"> <templateId root="06.27.840.1.497407.10.20.22.4.2 " /> <id nullFlavor="NA" /> <code codeSystem="local" code="76- 0" displayName="Cefazolin susceptibility test by minimum inhibitory concentration" /> <statusCode code="completed" /> < effectiveTime value="279818776791" /> <value unit="" xsi:type="PQ" value="2" /> <interpretationCode codeSystem="local" code="*" /> <referenceRange> <observationRange> <text>NRG</text> </observationRange> </referenceRange> </observation > </component> <component> <observation moodCode="EVN" classCode="OBS"> <templateId root="840.1.667009.10..22.4.2" /> <id nullFlavor="NA" /> <code codeSystem="local" code="141-2" displayName="Ceftriaxone susceptibility test by minimum inhibitory concentration " /> <statusCode code="completed" /> <effectiveTime value= "490335120704" /> <value unit="" xsi:type="PQ" value="<=" /> <interpretationCode codeSystem="local" code="*" /> <referenceRange> <observationRange> <text>NRG</text> </ observationRange> </referenceRange> </observation> </ component> <component> <observation moodCode="EVN" classCode="OBS"> <templateId root="06.27.840.1.275925.10.20.22.4.2" /> <id nullFlavor="NA" /> <code codeSystem="local" code="185-9" displayName= "Ciprofloxacin susceptibility test by minimum inhibitory concentration" /> <statusCode code="completed" /> <effectiveTime value="935972425485 " /> <value unit="" xsi:type="PQ" value="<=" /> < interpretationCode codeSystem="local" code="*" /> <referenceRange> <observationRange> <text>NRG</text> </ observationRange> </referenceRange> </observation> </ component> <component> <observation moodCode="EVN" classCode="OBS"> <templateId root="2.16.840.1.138214.10..22.4.2" /> <id nullFlavor="NA" /> <code codeSystem="local" code="6652-2" displayName= "Meropenem susceptibility test by minimum inhibitory concentration" /> <statusCode code="completed" /> <effectiveTime value="936466002510" /> <value unit="" xsi:type="PQ" value="<=" /> < interpretationCode codeSystem="local" code="*" /> <referenceRange> <observationRange> <text>NRG</text> </ observationRange> </referenceRange> </observation> </ component> <component> <observation moodCode="EVN" classCode="OBS"> <templateId root="2.16.840.1.178125.10.20.22.4.2" /> <id nullFlavor="NA" /> <code codeSystem="local" code="363-2" displayName= "Nitrofurantoin susceptibility test by minimum inhibitory concentration" /> <statusCode code="completed" /> <effectiveTime value= "190644923266" /> <value unit="" xsi:type="PQ" value="<=" /> <interpretationCode codeSystem="local" code="*" /> <referenceRange> <observationRange> <text>NRG</text> </ observationRange> </referenceRange> </observation> </ component> <component> <observation moodCode="EVN" classCode="OBS"> <templateId root="216.840.1.182393.10.20.22.4.2" /> <id nullFlavor="NA" /> <code codeSystem="local" code="20" displayName= "Amoxicillin and clavulanate potassium susc SHAYNA" /> <statusCode code= "completed" /> <effectiveTime value="035127380692" /> <value unit="" xsi:type="PQ" value="=" /> <interpretationCode codeSystem= "local" code="*" /> <referenceRange> <observationRange> <text>NRG</text> </observationRange> </ referenceRange> </observation> </component> </organizer> </entry > <entry> <organizer moodCode="EVN" classCode="BATTERY"> <templateId root="216.840.1.634023.10.20.22.4.1" /> <id nullFlavor="NA" /> <code codeSystem="local" code="66351-0" displayName="Complete blood count (CBC) with automated white blood cell (WBC) differential" /> <statusCode code= "completed" /> <component> <observation moodCode="EVN" classCode= "OBS"> <templateId root="216.840.1.576470.10.20.22.4.2" /> < id nullFlavor="NA" /> <code codeSystem="local" code="6690-2" displayName="Blood leukocytes automated count (number/volume)" /> < statusCode code="completed" /> <effectiveTime value="722200396287" /> <value unit="10*3/uL" xsi:type="PQ" value="18.7" /> < interpretationCode codeSystem="local" code="" /> <referenceRange> <observationRange> <text>4.3-11.0</text> </ observationRange> </referenceRange> </observation> </ component> <component> <observation moodCode="EVN" classCode="OBS"> <templateId root="2.16.840.1.891399.10..22.4.2" /> <id nullFlavor="NA" /> <code codeSystem="local" code="789-8" displayName= "Blood erythrocytes automated count (number/volume)" /> <statusCode code="completed" /> <effectiveTime value="269654021931" /> < value unit="10*6/uL" xsi:type="PQ" value="4.35" /> <referenceRange> <observationRange> <text>4.35-5.85</text> </ observationRange> </referenceRange> </observation> </ component> <component> <observation moodCode="EVN" classCode="OBS"> <templateId root="2.16.840.1.814828.10...4.2" /> <id nullFlavor="NA" /> <code codeSystem="local" code="61539-7" displayName= "Venous blood hemoglobin measurement (mass/volume)" /> <statusCode code ="completed" /> <effectiveTime value="987045897093" /> <value unit="g/dL" xsi:type="PQ" value="10.7" /> <interpretationCode codeSystem="local" code="" /> <referenceRange> < observationRange> <text>11.5-16.0</text> </ observationRange> </referenceRange> </observation> </ component> <component> <observation moodCode="EVN" classCode="OBS"> <templateId root="2.16.840.1.382248.10.20.22.4.2" /> <id nullFlavor="NA" /> <code codeSystem="local" code="60564-3" displayName= "Blood hematocrit (volume fraction)" /> <statusCode code="completed" / > <effectiveTime value="749948777759" /> <value unit="%" xsi:type="PQ" value="33" /> <interpretationCode codeSystem="local" code ="" /> <referenceRange> <observationRange> < text>35-52</text> </observationRange> </referenceRange> </observation> </component> <component> <observation moodCode="EVN" classCode="OBS"> <templateId root= "216.840.1.049371.10.22.4.2" /> <id nullFlavor="NA" /> < code codeSystem="local" code="787-2" displayName="Automated erythrocyte mean corpuscular volume" /> <statusCode code="completed" /> < effectiveTime value="331399955764" /> <value unit="[foz_us]" xsi:type= "PQ" value="75" /> <interpretationCode codeSystem="local" code="" /> <referenceRange> <observationRange> <text>80- 99</text> </observationRange> </referenceRange> </ observation> </component> <component> <observation moodCode= "EVN" classCode="OBS"> <templateId root="16.840.1.277312.10.20.22.4.2 " /> <id nullFlavor="NA" /> <code codeSystem="local" code="785 -6" displayName="Automated erythrocyte mean corpuscular hemoglobin (mass per erythrocyte)" /> <statusCode code="completed" /> < effectiveTime value="713673979189" /> <value unit="pg" xsi:type="PQ" value="25" /> <referenceRange> <observationRange> <text>25-34</text> </observationRange> </referenceRange > </observation> </component> <component> <observation moodCode="EVN" classCode="OBS"> <templateId root= "2.16.840.1.932182.10.20.22.4.2" /> <id nullFlavor="NA" /> < code codeSystem="local" code="786-4" displayName="Automated erythrocyte mean corpuscular hemoglobin concentration measurement (mass/volume)" /> < statusCode code="completed" /> <effectiveTime value="353785490287" /> <value unit="g/dL" xsi:type="PQ" value="33" /> <referenceRange > <observationRange> <text>32-36</text> </ observationRange> </referenceRange> </observation> </ component> <component> <observation moodCode="EVN" classCode="OBS"> <templateId root="2.16.840.1.057214.10..22.4.2" /> <id nullFlavor="NA" /> <code codeSystem="local" code="788-0" displayName= "Automated erythrocyte distribution width ratio" /> <statusCode code= "completed" /> <effectiveTime value="881644898531" /> <value unit="%" xsi:type="PQ" value="21.0" /> <interpretationCode codeSystem="local" code="" /> <referenceRange> < observationRange> <text>10.0-14.5</text> </ observationRange> </referenceRange> </observation> </ component> <component> <observation moodCode="EVN" classCode="OBS"> <templateId root="2.16.840.1.902289.10.20.4.2" /> <id nullFlavor="NA" /> <code codeSystem="local" code="777-3" displayName= "Automated blood platelet count (count/volume)" /> <statusCode code= "completed" /> <effectiveTime value="251025206326" /> <value unit="10*3/uL" xsi:type="PQ" value="348" /> <referenceRange> <observationRange> <text>130-400</text> </ observationRange> </referenceRange> </observation> </ component> <component> <observation moodCode="EVN" classCode="OBS"> <templateId root="216.840.1.216553.1022.4.2" /> <id nullFlavor="NA" /> <code codeSystem="local" code="47527-4" displayName= "Automated blood platelet mean volume measurement" /> <statusCode code= "completed" /> <effectiveTime value="688400030792" /> <value unit="[foz_us]" xsi:type="PQ" value="11.0" /> <interpretationCode codeSystem="local" code="" /> <referenceRange> < observationRange> <text>7.4-10.4</text> </ observationRange> </referenceRange> </observation> </ component> <component> <observation moodCode="EVN" classCode="OBS"> <templateId root="216.840.1.550891.10.22.4.2" /> <id nullFlavor="NA" /> <code codeSystem="local" code="770-8" displayName= "Automated blood neutrophils/100 leukocytes" /> <statusCode code= "completed" /> <effectiveTime value="981738389764" /> <value unit="%" xsi:type="PQ" value="86" /> <interpretationCode codeSystem ="local" code="" /> <referenceRange> <observationRange> <text>42-75</text> </observationRange> </ referenceRange> </observation> </component> <component> <observation moodCode="EVN" classCode="OBS"> <templateId root= "2.16.840.1.388592.10.20.22.4.2" /> <id nullFlavor="NA" /> < code codeSystem="local" code="736-9" displayName="Automated blood lymphocytes/ 100 leukocytes" /> <statusCode code="completed" /> < effectiveTime value="466892433647" /> <value unit="%" xsi:type="PQ " value="6" /> <interpretationCode codeSystem="local" code="" /> <referenceRange> <observationRange> <text>12-44</ text> </observationRange> </referenceRange> </ observation> </component> <component> <observation moodCode= "EVN" classCode="OBS"> <templateId root="216.840.1.575147.10..4.2 " /> <id nullFlavor="NA" /> <code codeSystem="local" code= "63274-0" displayName="Blood monocytes/100 leukocytes" /> <statusCode code="completed" /> <effectiveTime value="856727783654" /> < value unit="%" xsi:type="PQ" value="8" /> <referenceRange> <observationRange> <text>0-12</text> </ observationRange> </referenceRange> </observation> </ component> <component> <observation moodCode="EVN" classCode="OBS"> <templateId root="2.16.840.1.468255.10.20.22.4.2" /> <id nullFlavor="NA" /> <code codeSystem="local" code="713-8" displayName= "Automated blood eosinophils/100 leukocytes" /> <statusCode code= "completed" /> <effectiveTime value="818115317239" /> <value unit="%" xsi:type="PQ" value="0" /> <referenceRange> < observationRange> <text>0-10</text> </observationRange> </referenceRange> </observation> </component> < component> <observation moodCode="EVN" classCode="OBS"> < templateId root="2.16.840.1.785735.10.20.22.4.2" /> <id nullFlavor="NA " /> <code codeSystem="local" code="706-2" displayName="Automated blood basophils/100 leukocytes" /> <statusCode code="completed" /> <effectiveTime value="905873020518" /> <value unit="%" xsi: type="PQ" value="0" /> <referenceRange> <observationRange> <text>0-10</text> </observationRange> </ referenceRange> </observation> </component> <component> <observation moodCode="EVN" classCode="OBS"> <templateId root= "2.16.840.1.053285.10.20.22.4.2" /> <id nullFlavor="NA" /> < code codeSystem="local" code="751-8" displayName="Blood neutrophils automated count (number/volume)" /> <statusCode code="completed" /> < effectiveTime value="937542660010" /> <value unit="10*3" xsi:type="PQ" value="16.0" /> <interpretationCode codeSystem="local" code="" /> <referenceRange> <observationRange> <text>1.8-7.8 </text> </observationRange> </referenceRange> </ observation> </component> <component> <observation moodCode= "EVN" classCode="OBS"> <templateId root="2.16.840.1.437634.10..22.4.2 " /> <id nullFlavor="NA" /> <code codeSystem="local" code="731 -0" displayName="Blood lymphocytes automated count (number/volume)" /> <statusCode code="completed" /> <effectiveTime value="064173446251" /> <value unit="10*3" xsi:type="PQ" value="1.2" /> < referenceRange> <observationRange> <text>1.0-4.0</text> </observationRange> </referenceRange> </observation > </component> <component> <observation moodCode="EVN" classCode="OBS"> <templateId root="216.840.1.974318.02.28.22.4.2" /> <id nullFlavor="NA" /> <code codeSystem="local" code="742-7" displayName="Blood monocytes automated count (number/volume)" /> < statusCode code="completed" /> <effectiveTime value="533599178370" /> <value unit="10*3" xsi:type="PQ" value="1.5" /> < interpretationCode codeSystem="local" code="" /> <referenceRange> <observationRange> <text>0.0-1.0</text> </ observationRange> </referenceRange> </observation> </ component> <component> <observation moodCode="EVN" classCode="OBS"> <templateId root="2.16.840.1.848327.10.20.22.4.2" /> <id nullFlavor="NA" /> <code codeSystem="local" code="711-2" displayName= "Automated eosinophil count" /> <statusCode code="completed" /> <effectiveTime value="666158715500" /> <value unit="10*3/uL" xsi: type="PQ" value="0.0" /> <referenceRange> <observationRange > <text>0.0-0.3</text> </observationRange> </ referenceRange> </observation> </component> <component> <observation moodCode="EVN" classCode="OBS"> <templateId root= "06.27.840.1.119405.10..4.2" /> <id nullFlavor="NA" /> < code codeSystem="local" code="704-7" displayName="Automated blood basophil count (count/volume)" /> <statusCode code="completed" /> < effectiveTime value="790955265306" /> <value unit="10*3/uL" xsi:type= "PQ" value="0.0" /> <referenceRange> <observationRange> <text>0.0-0.1</text> </observationRange> </ referenceRange> </observation> </component> </organizer> </entry > <entry> <organizer moodCode="EVN" classCode="BATTERY"> <templateId root="06.27.840.1.831093.10...4.1" /> <id nullFlavor="NA" /> <code codeSystem="local" code="79163-4" displayName="Blood lactic acid measurement ( moles/volume)" /> <statusCode code="completed" /> <component> < observation moodCode="EVN" classCode="OBS"> <templateId root= "06.27.840.1.300131.10.22.4.2" /> <id nullFlavor="NA" /> < code codeSystem="local" code="55077-0" displayName="Blood lactic acid measurement (moles/volume)" /> <statusCode code="completed" /> <effectiveTime value="819964398816" /> <value unit="mmol/L" xsi:type= "PQ" value="2.13" /> <interpretationCode codeSystem="local" code="" / > <referenceRange> <observationRange> <text> 0.50-2.00</text> </observationRange> </referenceRange> </observation> </component> </organizer> </entry> <entry> < organizer moodCode="EVN" classCode="BATTERY"> <templateId root= "2.16.840.1.488086.10.20.22.4.1" /> <id nullFlavor="NA" /> <code codeSystem="local" code="600-7" displayName="Bacterial blood culture" /> < statusCode code="completed" /> <component> <observation moodCode= "EVN" classCode="OBS"> <templateId root="2.16.840.1.023870.10.20.22.4.2 " /> <id nullFlavor="NA" /> <code codeSystem="local" code="600 -7" displayName="Bacterial blood culture" /> <statusCode code= "completed" /> <effectiveTime value="081712951615" /> <value unit="" xsi:type="PQ" value="NG" /> <referenceRange> < observationRange> <text>NRG</text> </observationRange> </referenceRange> </observation> </component> </ organizer> </entry> <entry> <organizer moodCode="EVN" classCode="BATTERY"> <templateId root="2.16.840.1.940065.10.20.22.4.1" /> <id nullFlavor= "NA" /> <code codeSystem="local" code="600-7" displayName="Bacterial blood culture" /> <statusCode code="completed" /> <component> < observation moodCode="EVN" classCode="OBS"> <templateId root= "2.16.840.1.576905.10.20.22.4.2" /> <id nullFlavor="NA" /> < code codeSystem="local" code="600-7" displayName="Bacterial blood culture" /> <statusCode code="completed" /> <effectiveTime value= "420812183996" /> <value unit="" xsi:type="PQ" value="NG" /> < referenceRange> <observationRange> <text>NRG</text> </observationRange> </referenceRange> </observation> </component> </organizer> </entry> <entry> <organizer moodCode="EVN" classCode="BATTERY"> <templateId root="2.16.840.1.084873.10.20.22.4.1" /> <id nullFlavor="NA" /> <code codeSystem="local" code="22045-0" displayName="Influenza virus A and B antigen detection" /> <statusCode code ="completed" /> <component> <observation moodCode="EVN" classCode= "OBS"> <templateId root="2.16.840.1.422019.10.20.22.4.2" /> < id nullFlavor="NA" /> <code codeSystem="local" code="FLURESULT" displayName="FLU RESULT" /> <statusCode code="completed" /> < effectiveTime value="669442446507" /> <value unit="" xsi:type="PQ" value="NEGATIVE FOR INFLUENZA A AND B ANTIGENS BY IA" /> < referenceRange> <observationRange> <text>NRG</text> </observationRange> </referenceRange> </observation> </component> </organizer> </entry> <entry> <organizer moodCode="EVN" classCode="BATTERY"> <templateId root="06.27.840.1.910601.10..22.4.1" /> <id nullFlavor="NA" /> <code codeSystem="local" code="2524" displayName="Serum or plasma lactate measurement (moles/volume)" /> < statusCode code="completed" /> <component> <observation moodCode= "EVN" classCode="OBS"> <templateId root="06.27.840.1.870241.10.22.4.2 " /> <id nullFlavor="NA" /> <code codeSystem="local" code= "2524" displayName="Serum or plasma lactate measurement (moles/volume)" /> <statusCode code="completed" /> <effectiveTime value= "595390327202" /> <value unit="mmol/L" xsi:type="PQ" value="0.83" /> <referenceRange> <observationRange> <text>0.50- 2.00</text> </observationRange> </referenceRange> </ observation> </component> </organizer> </entry> <entry> <organizer moodCode="EVN" classCode="BATTERY"> <templateId root= "06.27.840.1.369637.10..22.4.1" /> <id nullFlavor="NA" /> <code codeSystem="local" code="51622-7" displayName="Complete blood count (CBC) with automated white blood cell (WBC) differential" /> <statusCode code= "completed" /> <component> <observation moodCode="EVN" classCode= "OBS"> <templateId root="06.27.840.1.055172.10.20.22.4.2" /> < id nullFlavor="NA" /> <code codeSystem="local" code="6690-2" displayName="Blood leukocytes automated count (number/volume)" /> < statusCode code="completed" /> <effectiveTime value="973749933608" /> <value unit="10*3/uL" xsi:type="PQ" value="12.7" /> < interpretationCode codeSystem="local" code="" /> <referenceRange> <observationRange> <text>4.3-11.0</text> </ observationRange> </referenceRange> </observation> </ component> <component> <observation moodCode="EVN" classCode="OBS"> <templateId root="2.16.840.1.516593.10..22.4.2" /> <id nullFlavor="NA" /> <code codeSystem="local" code="789-8" displayName= "Blood erythrocytes automated count (number/volume)" /> <statusCode code="completed" /> <effectiveTime value="795100051534" /> < value unit="10*6/uL" xsi:type="PQ" value="3.41" /> <interpretationCode codeSystem="local" code="" /> <referenceRange> < observationRange> <text>4.35-5.85</text> </ observationRange> </referenceRange> </observation> </ component> <component> <observation moodCode="EVN" classCode="OBS"> <templateId root="2.16.840.1.641107.10.22.4.2" /> <id nullFlavor="NA" /> <code codeSystem="local" code="35305-8" displayName= "Venous blood hemoglobin measurement (mass/volume)" /> <statusCode code ="completed" /> <effectiveTime value="694507862410" /> <value unit="g/dL" xsi:type="PQ" value="8.3" /> <interpretationCode codeSystem ="local" code="" /> <referenceRange> <observationRange> <text>11.5-16.0</text> </observationRange> </ referenceRange> </observation> </component> <component> <observation moodCode="EVN" classCode="OBS"> <templateId root= "216.840.1.899299.10.20.22.4.2" /> <id nullFlavor="NA" /> < code codeSystem="local" code="18397-2" displayName="Blood hematocrit (volume fraction)" /> <statusCode code="completed" /> <effectiveTime value="881663028103" /> <value unit="%" xsi:type="PQ" value="26" / > <interpretationCode codeSystem="local" code="" /> < referenceRange> <observationRange> <text>35-52</text> </observationRange> </referenceRange> </observation> </component> <component> <observation moodCode="EVN" classCode= "OBS"> <templateId root="16.840.1.823215.10..4.2" /> < id nullFlavor="NA" /> <code codeSystem="local" code="787-2" displayName ="Automated erythrocyte mean corpuscular volume" /> <statusCode code= "completed" /> <effectiveTime value="587246529269" /> <value unit="[foz_us]" xsi:type="PQ" value="77" /> <interpretationCode codeSystem="local" code="" /> <referenceRange> < observationRange> <text>80-99</text> </observationRange > </referenceRange> </observation> </component> < component> <observation moodCode="EVN" classCode="OBS"> < templateId root="216.840.1.589211.10.20.22.4.2" /> <id nullFlavor="NA " /> <code codeSystem="local" code="785-6" displayName="Automated erythrocyte mean corpuscular hemoglobin (mass per erythrocyte)" /> < statusCode code="completed" /> <effectiveTime value="663526703766" /> <value unit="pg" xsi:type="PQ" value="24" /> < interpretationCode codeSystem="local" code="" /> <referenceRange> <observationRange> <text>25-34</text> </ observationRange> </referenceRange> </observation> </ component> <component> <observation moodCode="EVN" classCode="OBS"> <templateId root="2.16.840.1.956837.10.20.22.4.2" /> <id nullFlavor="NA" /> <code codeSystem="local" code="786-4" displayName= "Automated erythrocyte mean corpuscular hemoglobin concentration measurement ( mass/volume)" /> <statusCode code="completed" /> < effectiveTime value="908549262991" /> <value unit="g/dL" xsi:type="PQ" value="31" /> <interpretationCode codeSystem="local" code="" /> <referenceRange> <observationRange> <text>32-36</ text> </observationRange> </referenceRange> </ observation> </component> <component> <observation moodCode= "EVN" classCode="OBS"> <templateId root="2.16.840.1.853418.10.20.22.4.2 " /> <id nullFlavor="NA" /> <code codeSystem="local" code="788 -0" displayName="Automated erythrocyte distribution width ratio" /> < statusCode code="completed" /> <effectiveTime value="388625533900" /> <value unit="%" xsi:type="PQ" value="19.9" /> < interpretationCode codeSystem="local" code="" /> <referenceRange> <observationRange> <text>10.0-14.5</text> </ observationRange> </referenceRange> </observation> </ component> <component> <observation moodCode="EVN" classCode="OBS"> <templateId root="2.16.840.1.884153.10..22.4.2" /> <id nullFlavor="NA" /> <code codeSystem="local" code="777-3" displayName= "Automated blood platelet count (count/volume)" /> <statusCode code= "completed" /> <effectiveTime value="181407709255" /> <value unit="10*3/uL" xsi:type="PQ" value="222" /> <referenceRange> <observationRange> <text>130-400</text> </ observationRange> </referenceRange> </observation> </ component> <component> <observation moodCode="EVN" classCode="OBS"> <templateId root="2.16.840.1.803650.10...4.2" /> <id nullFlavor="NA" /> <code codeSystem="local" code="35533-9" displayName= "Automated blood platelet mean volume measurement" /> <statusCode code= "completed" /> <effectiveTime value="214972720546" /> <value unit="[foz_us]" xsi:type="PQ" value="11.0" /> <interpretationCode codeSystem="local" code="" /> <referenceRange> < observationRange> <text>7.4-10.4</text> </ observationRange> </referenceRange> </observation> </ component> <component> <observation moodCode="EVN" classCode="OBS"> <templateId root="2.16.840.1.772928.10.20.22.4.2" /> <id nullFlavor="NA" /> <code codeSystem="local" code="770-8" displayName= "Automated blood neutrophils/100 leukocytes" /> <statusCode code= "completed" /> <effectiveTime value="174656974145" /> <value unit="%" xsi:type="PQ" value="87" /> <interpretationCode codeSystem ="local" code="" /> <referenceRange> <observationRange> <text>42-75</text> </observationRange> </ referenceRange> </observation> </component> <component> <observation moodCode="EVN" classCode="OBS"> <templateId root= "16.840.1.795407.10.2022.4.2" /> <id nullFlavor="NA" /> < code codeSystem="local" code="736-9" displayName="Automated blood lymphocytes/ 100 leukocytes" /> <statusCode code="completed" /> < effectiveTime value="693616024382" /> <value unit="%" xsi:type="PQ " value="5" /> <interpretationCode codeSystem="local" code="" /> <referenceRange> <observationRange> <text>12-44</ text> </observationRange> </referenceRange> </ observation> </component> <component> <observation moodCode= "EVN" classCode="OBS"> <templateId root="06.27.840.1.940063.10.20.22.4.2 " /> <id nullFlavor="NA" /> <code codeSystem="local" code= "52744-3" displayName="Blood monocytes/100 leukocytes" /> <statusCode code="completed" /> <effectiveTime value="423055870229" /> < value unit="%" xsi:type="PQ" value="7" /> <referenceRange> <observationRange> <text>0-12</text> </ observationRange> </referenceRange> </observation> </ component> <component> <observation moodCode="EVN" classCode="OBS"> <templateId root="216.840.1.866460.10.20.22.4.2" /> <id nullFlavor="NA" /> <code codeSystem="local" code="713-8" displayName= "Automated blood eosinophils/100 leukocytes" /> <statusCode code= "completed" /> <effectiveTime value="513761435723" /> <value unit="%" xsi:type="PQ" value="0" /> <referenceRange> < observationRange> <text>0-10</text> </observationRange> </referenceRange> </observation> </component> < component> <observation moodCode="EVN" classCode="OBS"> < templateId root="06.27.840.1.146201.10.20.22.4.2" /> <id nullFlavor="NA " /> <code codeSystem="local" code="706-2" displayName="Automated blood basophils/100 leukocytes" /> <statusCode code="completed" /> <effectiveTime value="494466265202" /> <value unit="%" xsi: type="PQ" value="0" /> <referenceRange> <observationRange> <text>0-10</text> </observationRange> </ referenceRange> </observation> </component> <component> <observation moodCode="EVN" classCode="OBS"> <templateId root= "16.840.1.890151.10.20.22.4.2" /> <id nullFlavor="NA" /> < code codeSystem="local" code="751-8" displayName="Blood neutrophils automated count (number/volume)" /> <statusCode code="completed" /> < effectiveTime value="505684934221" /> <value unit="10*3" xsi:type="PQ" value="11.1" /> <interpretationCode codeSystem="local" code="" /> <referenceRange> <observationRange> <text>1.8-7.8 </text> </observationRange> </referenceRange> </ observation> </component> <component> <observation moodCode= "EVN" classCode="OBS"> <templateId root="2.16.840.1.293741.10..22.4.2 " /> <id nullFlavor="NA" /> <code codeSystem="local" code="731 -0" displayName="Blood lymphocytes automated count (number/volume)" /> <statusCode code="completed" /> <effectiveTime value="" /> <value unit="10*3" xsi:type="PQ" value="0.7" /> < interpretationCode codeSystem="local" code="" /> <referenceRange> <observationRange> <text>1.0-4.0</text> </ observationRange> </referenceRange> </observation> </ component> <component> <observation moodCode="EVN" classCode="OBS"> <templateId root="2.16.840.1.036000.10.2022.4.2" /> <id nullFlavor="NA" /> <code codeSystem="local" code="742-7" displayName= "Blood monocytes automated count (number/volume)" /> <statusCode code= "completed" /> <effectiveTime value="083741097014" /> <value unit="10*3" xsi:type="PQ" value="0.9" /> <referenceRange> < observationRange> <text>0.0-1.0</text> </ observationRange> </referenceRange> </observation> </ component> <component> <observation moodCode="EVN" classCode="OBS"> <templateId root="216.840.1.706387.10..22.4.2" /> <id nullFlavor="NA" /> <code codeSystem="local" code="711-2" displayName= "Automated eosinophil count" /> <statusCode code="completed" /> <effectiveTime value="" /> <value unit="10*3/uL" xsi: type="PQ" value="0.0" /> <referenceRange> <observationRange > <text>0.0-0.3</text> </observationRange> </ referenceRange> </observation> </component> <component> <observation moodCode="EVN" classCode="OBS"> <templateId root= "06.27.840.1.256306.02.28.22.4.2" /> <id nullFlavor="NA" /> < code codeSystem="local" code="704-7" displayName="Automated blood basophil count (count/volume)" /> <statusCode code="completed" /> < effectiveTime value="" /> <value unit="10*3/uL" xsi:type= "PQ" value="0.0" /> <referenceRange> <observationRange> <text>0.0-0.1</text> </observationRange> </ referenceRange> </observation> </component> </organizer> </entry > <entry> <organizer moodCode="EVN" classCode="BATTERY"> <templateId root="216.840.1.164004.10..22.4.1" /> <id nullFlavor="NA" /> <code codeSystem="local" code="15750-2" displayName="Comprehensive metabolic panel" / > <statusCode code="completed" /> <component> <observation moodCode="EVN" classCode="OBS"> <templateId root= "216.840.1.556201.10.20.22.4.2" /> <id nullFlavor="NA" /> < code codeSystem="local" code="2951-2" displayName="Serum or plasma sodium measurement (moles/volume)" /> <statusCode code="completed" /> <effectiveTime value="652764844442" /> <value unit="mmol/L" xsi:type= "PQ" value="137" /> <referenceRange> <observationRange> <text>135-145</text> </observationRange> </ referenceRange> </observation> </component> <component> <observation moodCode="EVN" classCode="OBS"> <templateId root= "06.27.840.1.184353.10.22.4.2" /> <id nullFlavor="NA" /> < code codeSystem="local" code="2823-3" displayName="Serum or plasma potassium measurement (moles/volume)" /> <statusCode code="completed" /> <effectiveTime value="942521304127" /> <value unit="mmol/L" xsi:type= "PQ" value="2.9" /> <interpretationCode codeSystem="local" code="" / > <referenceRange> <observationRange> <text>3.6 -5.0</text> </observationRange> </referenceRange> </ observation> </component> <component> <observation moodCode= "EVN" classCode="OBS"> <templateId root="216.840.1.552657.10.20.22.4.2 " /> <id nullFlavor="NA" /> <code codeSystem="local" code= "2075-0" displayName="Serum or plasma chloride measurement (moles/volume)" /> <statusCode code="completed" /> <effectiveTime value= "060141819843" /> <value unit="mmol/L" xsi:type="PQ" value="113" /> <interpretationCode codeSystem="local" code="" /> < referenceRange> <observationRange> <text>98-107</text> </observationRange> </referenceRange> </observation> </component> <component> <observation moodCode="EVN" classCode ="OBS"> <templateId root="2.16.840.1.857786.10.20.22.4.2" /> < id nullFlavor="NA" /> <code codeSystem="local" code="2028-01" displayName="Carbon dioxide" /> <statusCode code="completed" /> <effectiveTime value="315259757995" /> <value unit="mmol/L" xsi:type ="PQ" value="18" /> <interpretationCode codeSystem="local" code="" / > <referenceRange> <observationRange> <text>21- 32</text> </observationRange> </referenceRange> </ observation> </component> <component> <observation moodCode= "EVN" classCode="OBS"> <templateId root="2.16.840.1.407712.10.20.22.4.2 " /> <id nullFlavor="NA" /> <code codeSystem="local" code= "34778-5" displayName="Serum or plasma anion gap determination (moles/volume)" / > <statusCode code="completed" /> <effectiveTime value= "068900204976" /> <value unit="mmol/L" xsi:type="PQ" value="6" /> <referenceRange> <observationRange> <text>5-14</ text> </observationRange> </referenceRange> </ observation> </component> <component> <observation moodCode= "EVN" classCode="OBS"> <templateId root="2.16.840.1.250477.10..22.4.2 " /> <id nullFlavor="NA" /> <code codeSystem="local" code= "3094-0" displayName="Serum or plasma urea nitrogen measurement (mass/volume)" / > <statusCode code="completed" /> <effectiveTime value= "272547426948" /> <value unit="mg/dL" xsi:type="PQ" value="12" /> <referenceRange> <observationRange> <text>7-18</ text> </observationRange> </referenceRange> </ observation> </component> <component> <observation moodCode= "EVN" classCode="OBS"> <templateId root="2.16.840.1.787204.10..22.4.2 " /> <id nullFlavor="NA" /> <code codeSystem="local" code= "2160-0" displayName="Serum or plasma creatinine measurement (mass/volume)" /> <statusCode code="completed" /> <effectiveTime value= "343745387958" /> <value unit="mg/dL" xsi:type="PQ" value="0.68" /> <referenceRange> <observationRange> <text>0.60- 1.30</text> </observationRange> </referenceRange> </ observation> </component> <component> <observation moodCode= "EVN" classCode="OBS"> <templateId root="2.16.840.1.574231.10..22.4.2 " /> <id nullFlavor="NA" /> <code codeSystem="local" code= "3097-3" displayName="Serum or plasma urea nitrogen/creatinine mass ratio" /> <statusCode code="completed" /> <effectiveTime value= "351490640680" /> <value unit="" xsi:type="PQ" value="18" /> < referenceRange> <observationRange> <text>NRG</text> </observationRange> </referenceRange> </observation> </component> <component> <observation moodCode="EVN" classCode= "OBS"> <templateId root="2.16.840.1.774292.10.20.22.4.2" /> < id nullFlavor="NA" /> <code codeSystem="local" code="56614-5" displayName="Serum or plasma creatinine measurement with calculation of estimated glomerular filtration rate" /> <statusCode code="completed" / > <effectiveTime value="009714827841" /> <value unit="" xsi: type="PQ" value=">" /> <referenceRange> <observationRange > <text>NRG</text> </observationRange> </ referenceRange> </observation> </component> <component> <observation moodCode="EVN" classCode="OBS"> <templateId root= "2.16.840.1.512013.10..22.4.2" /> <id nullFlavor="NA" /> < code codeSystem="local" code="2345-7" displayName="Serum or plasma glucose measurement (mass/volume)" /> <statusCode code="completed" /> <effectiveTime value="132522241103" /> <value unit="mg/dL" xsi:type="PQ " value="108" /> <interpretationCode codeSystem="local" code="" /> <referenceRange> <observationRange> <text>70-105 </text> </observationRange> </referenceRange> </ observation> </component> <component> <observation moodCode= "EVN" classCode="OBS"> <templateId root="2.16.840.1.880322.10.20.22.4.2 " /> <id nullFlavor="NA" /> <code codeSystem="local" code= "75066-4" displayName="Serum or plasma calcium measurement (mass/volume)" /> <statusCode code="completed" /> <effectiveTime value= "296277224788" /> <value unit="mg/dL" xsi:type="PQ" value="7.8" /> <interpretationCode codeSystem="local" code="" /> < referenceRange> <observationRange> <text>8.5-10.1</text > </observationRange> </referenceRange> </observation > </component> <component> <observation moodCode="EVN" classCode="OBS"> <templateId root="2.16.840.1.706059.10..22.4.2" /> <id nullFlavor="NA" /> <code codeSystem="local" code="1974-06" displayName="Serum or plasma total bilirubin measurement (mass/volume)" /> <statusCode code="completed" /> <effectiveTime value="007873002638 " /> <value unit="mg/dL" xsi:type="PQ" value="0.5" /> < referenceRange> <observationRange> <text>0.1-1.0</text> </observationRange> </referenceRange> </observation > </component> <component> <observation moodCode="EVN" classCode="OBS"> <templateId root="2.16.840.1.516252.10..22.4.2" /> <id nullFlavor="NA" /> <code codeSystem="local" code="6768-6" displayName="Serum or plasma alkaline phosphatase measurement (enzymatic activity/volume)" /> <statusCode code="completed" /> < effectiveTime value="735955435717" /> <value unit="U/L" xsi:type="PQ" value="62" /> <referenceRange> <observationRange> <text>40-136</text> </observationRange> </referenceRange > </observation> </component> <component> <observation moodCode="EVN" classCode="OBS"> <templateId root= "2.16.840.1.103547.10.20.22.4.2" /> <id nullFlavor="NA" /> < code codeSystem="local" code="192" displayName="Serum or plasma aspartate aminotransferase measurement (enzymatic activity/volume)" /> < statusCode code="completed" /> <effectiveTime value="005113501094" /> <value unit="U/L" xsi:type="PQ" value="15" /> <referenceRange > <observationRange> <text>5-34</text> </ observationRange> </referenceRange> </observation> </ component> <component> <observation moodCode="EVN" classCode="OBS"> <templateId root="06.27.840.1.775444.10..22.4.2" /> <id nullFlavor="NA" /> <code codeSystem="local" code="1742-6" displayName= "Serum or plasma alanine aminotransferase measurement (enzymatic activity/volume )" /> <statusCode code="completed" /> <effectiveTime value= "763729010636" /> <value unit="U/L" xsi:type="PQ" value="12" /> <referenceRange> <observationRange> <text>0-55</text > </observationRange> </referenceRange> </observation > </component> <component> <observation moodCode="EVN" classCode="OBS"> <templateId root="216.840.1.544039.10.20.22.4.2" /> <id nullFlavor="NA" /> <code codeSystem="local" code="2885-2" displayName="Serum or plasma protein measurement (mass/volume)" /> < statusCode code="completed" /> <effectiveTime value="370017028080" /> <value unit="g/dL" xsi:type="PQ" value="4.7" /> < interpretationCode codeSystem="local" code="" /> <referenceRange> <observationRange> <text>6.4-8.2</text> </ observationRange> </referenceRange> </observation> </ component> <component> <observation moodCode="EVN" classCode="OBS"> <templateId root="2.16.840.1.449284.10..22.4.2" /> <id nullFlavor="NA" /> <code codeSystem="local" code="1751" displayName= "Serum or plasma albumin measurement (mass/volume)" /> <statusCode code ="completed" /> <effectiveTime value="979828008831" /> <value unit="g/dL" xsi:type="PQ" value="2.8" /> <interpretationCode codeSystem ="local" code="" /> <referenceRange> <observationRange> <text>3.2-4.5</text> </observationRange> </ referenceRange> </observation> </component> <component> <observation moodCode="EVN" classCode="OBS"> <templateId root= "16.840.1.412110.10..22.4.2" /> <id nullFlavor="NA" /> < code codeSystem="local" code="CALCIUMCORR" displayName="CALCIUM CORRECTED" /> <statusCode code="completed" /> <effectiveTime value= "811269547838" /> <value unit="mg/dL" xsi:type="PQ" value="8.8" /> <referenceRange> <observationRange> <text>8.5-10.1 </text> </observationRange> </referenceRange> </ observation> </component> </organizer> </entry> <entry> <organizer moodCode="EVN" classCode="BATTERY"> <templateId root= "06.27.840.1.349006.10.22.4.1" /> <id nullFlavor="NA" /> <code codeSystem="local" code="" displayName="Magnesium" /> <statusCode code="completed" /> <component> <observation moodCode="EVN" classCode="OBS"> <templateId root="840.1.403142.02.28.22.4.2" /> <id nullFlavor="NA" /> <code codeSystem="local" code="52828-9 " displayName="Magnesium" /> <statusCode code="completed" /> < effectiveTime value="822943109543" /> <value unit="mg/dL" xsi:type="PQ " value="1.5" /> <interpretationCode codeSystem="local" code="" /> <referenceRange> <observationRange> <text>1.8- 2.4</text> </observationRange> </referenceRange> </ observation> </component> </organizer> </entry> <entry> <organizer moodCode="EVN" classCode="BATTERY"> <templateId root= "840.1.543499.02.28.22.4.1" /> <id nullFlavor="NA" /> <code codeSystem="local" code="47564-5" displayName="Complete urinalysis with reflex to culture" /> <statusCode code="completed" /> <component> < observation moodCode="EVN" classCode="OBS"> <templateId root= "06.27.840.1.764234.02.28.22.4.2" /> <id nullFlavor="NA" /> < code codeSystem="local" code="5778-6" displayName="Urine color determination" / > <statusCode code="completed" /> <effectiveTime value= "670390346194" /> <value unit="" xsi:type="PQ" value="YELLOW" /> <referenceRange> <observationRange> <text>NRG</text > </observationRange> </referenceRange> </observation > </component> <component> <observation moodCode="EVN" classCode="OBS"> <templateId root="216.840.1.041539.10.20.22.4.2" /> <id nullFlavor="NA" /> <code codeSystem="local" code="47567-6 " displayName="Urine clarity determination" /> <statusCode code= "completed" /> <effectiveTime value="" /> <value unit="" xsi:type="PQ" value="SLIGHTLY CLOUDY" /> <referenceRange> <observationRange> <text>NRG</text> </ observationRange> </referenceRange> </observation> </ component> <component> <observation moodCode="EVN" classCode="OBS"> <templateId root="16.840.1.261257.10.20.22.4.2" /> <id nullFlavor="NA" /> <code codeSystem="local" code="5803-2" displayName= "Urine pH measurement by test strip" /> <statusCode code="completed" / > <effectiveTime value="859137852474" /> <value unit="" xsi: type="PQ" value="6" /> <referenceRange> <observationRange> <text>5-9</text> </observationRange> </ referenceRange> </observation> </component> <component> <observation moodCode="EVN" classCode="OBS"> <templateId root= "840.1.574653.10..22.4.2" /> <id nullFlavor="NA" /> < code codeSystem="local" code="5811-5" displayName="Specific gravity of urine by test strip" /> <statusCode code="completed" /> <effectiveTime value="741718787225" /> <value unit="" xsi:type="PQ" value="1.010" /> <interpretationCode codeSystem="local" code="" /> < referenceRange> <observationRange> <text>1.016-1.022</ text> </observationRange> </referenceRange> </ observation> </component> <component> <observation moodCode= "EVN" classCode="OBS"> <templateId root="06.27.840.1.582546.10.22.4.2 " /> <id nullFlavor="NA" /> <code codeSystem="local" code= "26511-7" displayName="Urine protein assay by test strip, semi-quantitative" /> <statusCode code="completed" /> <effectiveTime value= "553212964053" /> <value unit="" xsi:type="PQ" value="3+" /> < interpretationCode codeSystem="local" code="*" /> <referenceRange> <observationRange> <text>NEGATIVE</text> </ observationRange> </referenceRange> </observation> </ component> <component> <observation moodCode="EVN" classCode="OBS"> <templateId root="16.840.1.756762.10.20.22.4.2" /> <id nullFlavor="NA" /> <code codeSystem="local" code="41012-1" displayName= "Urine glucose detection by automated test strip" /> <statusCode code= "completed" /> <effectiveTime value="228842920230" /> <value unit="" xsi:type="PQ" value="NEGATIVE" /> <referenceRange> < observationRange> <text>NEGATIVE</text> </ observationRange> </referenceRange> </observation> </ component> <component> <observation moodCode="EVN" classCode="OBS"> <templateId root="840.1.701461.10.20.22.4.2" /> <id nullFlavor="NA" /> <code codeSystem="local" code="03509-2" displayName= "Erythrocytes detection in urine sediment by light microscopy" /> < statusCode code="completed" /> <effectiveTime value="445558861856" /> <value unit="" xsi:type="PQ" value="5+" /> < interpretationCode codeSystem="local" code="*" /> <referenceRange> <observationRange> <text>NEGATIVE</text> </ observationRange> </referenceRange> </observation> </ component> <component> <observation moodCode="EVN" classCode="OBS"> <templateId root="840.1.413079.1022.4.2" /> <id nullFlavor="NA" /> <code codeSystem="local" code="95265-8" displayName= "Urine ketones detection by automated test strip" /> <statusCode code= "completed" /> <effectiveTime value="120359567564" /> <value unit="" xsi:type="PQ" value="NEGATIVE" /> <referenceRange> < observationRange> <text>NEGATIVE</text> </ observationRange> </referenceRange> </observation> </ component> <component> <observation moodCode="EVN" classCode="OBS"> <templateId root="06.27.840.1.830537.10.2022.4.2" /> <id nullFlavor="NA" /> <code codeSystem="local" code="5802-4" displayName= "Urine nitrite detection by test strip" /> <statusCode code="completed " /> <effectiveTime value="362434009073" /> <value unit="" xsi :type="PQ" value="NEGATIVE" /> <referenceRange> < observationRange> <text>NEGATIVE</text> </ observationRange> </referenceRange> </observation> </ component> <component> <observation moodCode="EVN" classCode="OBS"> <templateId root="216.840.1.313143.10..22.4.2" /> <id nullFlavor="NA" /> <code codeSystem="local" code="5770-3" displayName= "Urine total bilirubin detection by test strip" /> <statusCode code= "completed" /> <effectiveTime value="668896906732" /> <value unit="" xsi:type="PQ" value="NEGATIVE" /> <referenceRange> < observationRange> <text>NEGATIVE</text> </ observationRange> </referenceRange> </observation> </ component> <component> <observation moodCode="EVN" classCode="OBS"> <templateId root="216.840.1.715509.10..22.4.2" /> <id nullFlavor="NA" /> <code codeSystem="local" code="45189-4" displayName= "Urine urobilinogen measurement by automated test strip (mass/volume)" /> <statusCode code="completed" /> <effectiveTime value="114067114404 " /> <value unit="" xsi:type="PQ" value="NORMAL" /> < referenceRange> <observationRange> <text>NORMAL</text> </observationRange> </referenceRange> </observation> </component> <component> <observation moodCode="EVN" classCode ="OBS"> <templateId root="216.840.1.771912.10.4.2" /> < id nullFlavor="NA" /> <code codeSystem="local" code="5799-2" displayName="Urine leukocyte esterase detection by dipstick" /> < statusCode code="completed" /> <effectiveTime value="346241674097" /> <value unit="" xsi:type="PQ" value="3+" /> < interpretationCode codeSystem="local" code="*" /> <referenceRange> <observationRange> <text>NEGATIVE</text> </ observationRange> </referenceRange> </observation> </ component> <component> <observation moodCode="EVN" classCode="OBS"> <templateId root="06.27.840.1.674482.22.4.2" /> <id nullFlavor="NA" /> <code codeSystem="local" code="64264-2" displayName= "Automated urine sediment erythrocyte count by microscopy (number/high power field)" /> <statusCode code="completed" /> <effectiveTime value="613163878960" /> <value unit="[HPF]" xsi:type="PQ" value="" /> <interpretationCode codeSystem="local" code="*" /> < referenceRange> <observationRange> <text>NRG</text> </observationRange> </referenceRange> </observation> </component> <component> <observation moodCode="EVN" classCode= "OBS"> <templateId root="06.27.840.1.764109.10.2022.4.2" /> < id nullFlavor="NA" /> <code codeSystem="local" code="5821-4" displayName="Automated urine sediment leukocyte count by microscopy (number/ high power field)" /> <statusCode code="completed" /> < effectiveTime value="503037193117" /> <value unit="[HPF]" xsi:type="PQ " value="" /> <interpretationCode codeSystem="local" code="*" /> <referenceRange> <observationRange> <text>NRG</text > </observationRange> </referenceRange> </observation > </component> <component> <observation moodCode="EVN" classCode="OBS"> <templateId root="16.840.1.784739.10.20.22.4.2" /> <id nullFlavor="NA" /> <code codeSystem="local" code="91182-8 " displayName="Bacteria detection in urine sediment by light microscopy" /> <statusCode code="completed" /> <effectiveTime value= "532676217874" /> <value unit="" xsi:type="PQ" value="NEGATIVE" /> <referenceRange> <observationRange> <text>NRG</ text> </observationRange> </referenceRange> </ observation> </component> <component> <observation moodCode= "EVN" classCode="OBS"> <templateId root="840.1.154119.10.22.4.2 " /> <id nullFlavor="NA" /> <code codeSystem="local" code= "09404-8" displayName="Squamous epithelial cells detection in urine sediment by light microscopy" /> <statusCode code="completed" /> < effectiveTime value="563367554491" /> <value unit="" xsi:type="PQ" value="5-10" /> <referenceRange> <observationRange> <text>NRG</text> </observationRange> </referenceRange > </observation> </component> <component> <observation moodCode="EVN" classCode="OBS"> <templateId root= "06.27.840.1.332729.10.20.22.4.2" /> <id nullFlavor="NA" /> < code codeSystem="local" code="70913-8" displayName="Crystals detection in urine sediment by light microscopy" /> <statusCode code="completed" /> <effectiveTime value="" /> <value unit="" xsi:type="PQ " value="NONE" /> <referenceRange> <observationRange> <text>NRG</text> </observationRange> </ referenceRange> </observation> </component> <component> <observation moodCode="EVN" classCode="OBS"> <templateId root= "16.840.1.143268.10.20.22.4.2" /> <id nullFlavor="NA" /> < code codeSystem="local" code="26163-0" displayName="Casts detection in urine sediment by light microscopy" /> <statusCode code="completed" /> <effectiveTime value="" /> <value unit="" xsi:type="PQ " value="NONE" /> <referenceRange> <observationRange> <text>NRG</text> </observationRange> </ referenceRange> </observation> </component> <component> <observation moodCode="EVN" classCode="OBS"> <templateId root= "16.840.1.231669.10.20.22.4.2" /> <id nullFlavor="NA" /> < code codeSystem="local" code="8247-9" displayName="Mucus detection in urine sediment by light microscopy" /> <statusCode code="completed" /> <effectiveTime value="380677335491" /> <value unit="" xsi:type="PQ " value="NEGATIVE" /> <referenceRange> <observationRange> <text>NRG</text> </observationRange> </ referenceRange> </observation> </component> <component> <observation moodCode="EVN" classCode="OBS"> <templateId root= "06.27.840.1.732737.10..22.4.2" /> <id nullFlavor="NA" /> < code codeSystem="local" code="62692-5" displayName="Complete urinalysis with reflex to culture" /> <statusCode code="completed" /> < effectiveTime value="925188206670" /> <value unit="" xsi:type="PQ" value="YES" /> <referenceRange> <observationRange> <text>NRG</text> </observationRange> </referenceRange> </observation> </component> </organizer> </entry> <entry> < organizer moodCode="EVN" classCode="BATTERY"> <templateId root= "16.840.1.300102.10.22.4.1" /> <id nullFlavor="NA" /> <code codeSystem="local" code="630-4" displayName="Bacterial urine culture" /> < statusCode code="completed" /> <component> <observation moodCode= "EVN" classCode="OBS"> <templateId root="216.840.1.358504.10..22.4.2 " /> <id nullFlavor="NA" /> <code codeSystem="local" code="630 -4" displayName="Bacterial urine culture" /> <statusCode code= "completed" /> <effectiveTime value="204763810225" /> <value unit="" xsi:type="PQ" value="446146542" /> <referenceRange> <observationRange> <text>NRG</text> </observationRange> </referenceRange> </observation> </component> < component> <observation moodCode="EVN" classCode="OBS"> < templateId root="16.840.1.904991.10..22.4.2" /> <id nullFlavor="NA " /> <code codeSystem="local" code="CC" displayName="COLONY COUNT" /> <statusCode code="completed" /> <effectiveTime value= "609641351659" /> <value unit="" xsi:type="PQ" value=">100,000/ML" / > <referenceRange> <observationRange> <text>NRG </text> </observationRange> </referenceRange> </ observation> </component> <component> <observation moodCode= "EVN" classCode="OBS"> <templateId root="2.16.840.1.589269.10..22.4.2 " /> <id nullFlavor="NA" /> <code codeSystem="local" code= "FTX2" displayName="FREE TEXT ENTRY 2" /> <statusCode code="completed" /> <effectiveTime value="127321799922" /> <value unit="" xsi: type="PQ" value="RML SENT SENSITIVITY 05/26 08:05" /> <referenceRange> <observationRange> <text>NRG</text> </ observationRange> </referenceRange> </observation> </ component> <component> <observation moodCode="EVN" classCode="OBS"> <templateId root="2.16.840.1.363071.10..22.4.2" /> <id nullFlavor="NA" /> <code codeSystem="local" code="FTX3" displayName= "FREE TEXT ENTRY 3" /> <statusCode code="completed" /> < effectiveTime value="175155540822" /> <value unit="" xsi:type="PQ" value="RML SENT ID REPORT 05/25 16:05" /> <referenceRange> < observationRange> <text>NRG</text> </observationRange> </referenceRange> </observation> </component> </ organizer> </entry> <entry> <organizer moodCode="EVN" classCode="BATTERY"> <templateId root="216.840.1.360720.10..22.4.1" /> <id nullFlavor= "NA" /> <code codeSystem="local" code="RML-SENS" displayName="RML Sensitivity Panel" /> <statusCode code="completed" /> <component> <observation moodCode="EVN" classCode="OBS"> <templateId root= "16.840.1.894464.10..22.4.2" /> <id nullFlavor="NA" /> < code codeSystem="local" code="267-5" displayName="Gentamicin susceptibility test by minimum inhibitory concentration" /> <statusCode code= "completed" /> <effectiveTime value="251541720035" /> <value unit="" xsi:type="PQ" value="<" /> <interpretationCode codeSystem= "local" code="*" /> <referenceRange> <observationRange> <text>NRG</text> </observationRange> </ referenceRange> </observation> </component> <component> <observation moodCode="EVN" classCode="OBS"> <templateId root= "16.840.1.703165.10..22.4.2" /> <id nullFlavor="NA" /> < code codeSystem="local" code="516-5" displayName="Trimethoprim/sulfamethoxazole susceptibility test by minimum inhibitoryconcentration" /> <statusCode code="completed" /> <effectiveTime value="645214879492" /> < value unit="" xsi:type="PQ" value=">" /> <interpretationCode codeSystem="local" code="*" /> <referenceRange> < observationRange> <text>NRG</text> </observationRange> </referenceRange> </observation> </component> < component> <observation moodCode="EVN" classCode="OBS"> < templateId root="216.840.1.996548.10..22.4.2" /> <id nullFlavor="NA " /> <code codeSystem="local" code="74442-6" displayName="Levofloxacin susceptibility test by minimum inhibitory concentration" /> < statusCode code="completed" /> <effectiveTime value="786498548026" /> <value unit="" xsi:type="PQ" value="<=" /> < interpretationCode codeSystem="local" code="*" /> <referenceRange> <observationRange> <text>NRG</text> </ observationRange> </referenceRange> </observation> </ component> <component> <observation moodCode="EVN" classCode="OBS"> <templateId root="216.840.1.349996.10...4.2" /> <id nullFlavor="NA" /> <code codeSystem="local" code="28-1" displayName= "Ampicillin susceptibility test by minimum inhibitory concentration" /> <statusCode code="completed" /> <effectiveTime value="673147220495" / > <value unit="" xsi:type="PQ" value=">" /> < interpretationCode codeSystem="local" code="*" /> <referenceRange> <observationRange> <text>NRG</text> </ observationRange> </referenceRange> </observation> </ component> <component> <observation moodCode="EVN" classCode="OBS"> <templateId root="216.840.1.612157.10..22.4.2" /> <id nullFlavor="NA" /> <code codeSystem="local" code="76-0" displayName= "Cefazolin susceptibility test by minimum inhibitory concentration" /> <statusCode code="completed" /> <effectiveTime value="077882025443" /> <value unit="" xsi:type="PQ" value="2" /> < interpretationCode codeSystem="local" code="*" /> <referenceRange> <observationRange> <text>NRG</text> </ observationRange> </referenceRange> </observation> </ component> <component> <observation moodCode="EVN" classCode="OBS"> <templateId root="06.27.840.1.305194.10.20.22.4.2" /> <id nullFlavor="NA" /> <code codeSystem="local" code="141-2" displayName= "Ceftriaxone susceptibility test by minimum inhibitory concentration" /> <statusCode code="completed" /> <effectiveTime value="350713356529" /> <value unit="" xsi:type="PQ" value="<=" /> < interpretationCode codeSystem="local" code="*" /> <referenceRange> <observationRange> <text>NRG</text> </ observationRange> </referenceRange> </observation> </ component> <component> <observation moodCode="EVN" classCode="OBS"> <templateId root="06.27.840.1.722913.10..22.4.2" /> <id nullFlavor="NA" /> <code codeSystem="local" code="185-9" displayName= "Ciprofloxacin susceptibility test by minimum inhibitory concentration" /> <statusCode code="completed" /> <effectiveTime value="931905540755 " /> <value unit="" xsi:type="PQ" value="<=" /> < interpretationCode codeSystem="local" code="*" /> <referenceRange> <observationRange> <text>NRG</text> </ observationRange> </referenceRange> </observation> </ component> <component> <observation moodCode="EVN" classCode="OBS"> <templateId root="06.27.830.1.828066.10.20.22.4.2" /> <id nullFlavor="NA" /> <code codeSystem="local" code="6652-2" displayName= "Meropenem susceptibility test by minimum inhibitory concentration" /> <statusCode code="completed" /> <effectiveTime value="346606620699" /> <value unit="" xsi:type="PQ" value="<=" /> < interpretationCode codeSystem="local" code="*" /> <referenceRange> <observationRange> <text>NRG</text> </ observationRange> </referenceRange> </observation> </ component> <component> <observation moodCode="EVN" classCode="OBS"> <templateId root="16.840.1.914202.10..22.4.2" /> <id nullFlavor="NA" /> <code codeSystem="local" code="363-2" displayName= "Nitrofurantoin susceptibility test by minimum inhibitory concentration" /> <statusCode code="completed" /> <effectiveTime value= "528486018998" /> <value unit="" xsi:type="PQ" value="<=" /> <interpretationCode codeSystem="local" code="*" /> <referenceRange> <observationRange> <text>NRG</text> </ observationRange> </referenceRange> </observation> </ component> <component> <observation moodCode="EVN" classCode="OBS"> <templateId root="16.840.1.603611.10.20.22.4.2" /> <id nullFlavor="NA" /> <code codeSystem="local" code="20-8" displayName= "Amoxicillin and clavulanate potassium susc SHAYNA" /> <statusCode code= "completed" /> <effectiveTime value="913034402592" /> <value unit="" xsi:type="PQ" value="=" /> <interpretationCode codeSystem= "local" code="*" /> <referenceRange> <observationRange> <text>NRG</text> </observationRange> </ referenceRange> </observation> </component> </organizer> </entry > <entry> <organizer moodCode="EVN" classCode="BATTERY"> <templateId root="216.840.1.208838.10..22.4.1" /> <id nullFlavor="NA" /> <code codeSystem="local" code="04964-5" displayName="Complete blood count (CBC) with automated white blood cell (WBC) differential" /> <statusCode code= "completed" /> <component> <observation moodCode="EVN" classCode= "OBS"> <templateId root="216.840.1.767192.10..22.4.2" /> < id nullFlavor="NA" /> <code codeSystem="local" code="6690-2" displayName="Blood leukocytes automated count (number/volume)" /> < statusCode code="completed" /> <effectiveTime value="930007573996" /> <value unit="10*3/uL" xsi:type="PQ" value="15.1" /> < interpretationCode codeSystem="local" code="" /> <referenceRange> <observationRange> <text>4.3-11.0</text> </ observationRange> </referenceRange> </observation> </ component> <component> <observation moodCode="EVN" classCode="OBS"> <templateId root="216.840.1.823484.10..22.4.2" /> <id nullFlavor="NA" /> <code codeSystem="local" code="789-8" displayName= "Blood erythrocytes automated count (number/volume)" /> <statusCode code="completed" /> <effectiveTime value="132284200638" /> < value unit="10*6/uL" xsi:type="PQ" value="3.78" /> <interpretationCode codeSystem="local" code="" /> <referenceRange> < observationRange> <text>4.35-5.85</text> </ observationRange> </referenceRange> </observation> </ component> <component> <observation moodCode="EVN" classCode="OBS"> <templateId root="2.16.840.1.913586.10.20.22.4.2" /> <id nullFlavor="NA" /> <code codeSystem="local" code="27112-3" displayName= "Venous blood hemoglobin measurement (mass/volume)" /> <statusCode code ="completed" /> <effectiveTime value="721227779516" /> <value unit="g/dL" xsi:type="PQ" value="8.2" /> <interpretationCode codeSystem ="local" code="" /> <referenceRange> <observationRange> <text>11.5-16.0</text> </observationRange> </ referenceRange> </observation> </component> <component> <observation moodCode="EVN" classCode="OBS"> <templateId root= "2.16.840.1.239718.10.20.22.4.2" /> <id nullFlavor="NA" /> < code codeSystem="local" code="41637-3" displayName="Blood hematocrit (volume fraction)" /> <statusCode code="completed" /> <effectiveTime value="278444604636" /> <value unit="%" xsi:type="PQ" value="27" / > <interpretationCode codeSystem="local" code="" /> < referenceRange> <observationRange> <text>35-52</text> </observationRange> </referenceRange> </observation> </component> <component> <observation moodCode="EVN" classCode= "OBS"> <templateId root="16.840.1.589100.10.2022.4.2" /> < id nullFlavor="NA" /> <code codeSystem="local" code="787-2" displayName ="Automated erythrocyte mean corpuscular volume" /> <statusCode code= "completed" /> <effectiveTime value="615487707206" /> <value unit="[foz_us]" xsi:type="PQ" value="71" /> <interpretationCode codeSystem="local" code="" /> <referenceRange> < observationRange> <text>80-99</text> </observationRange > </referenceRange> </observation> </component> < component> <observation moodCode="EVN" classCode="OBS"> < templateId root="06.27.840.1.571281.10.2022.4.2" /> <id nullFlavor="NA " /> <code codeSystem="local" code="785-6" displayName="Automated erythrocyte mean corpuscular hemoglobin (mass per erythrocyte)" /> < statusCode code="completed" /> <effectiveTime value="134790909872" /> <value unit="pg" xsi:type="PQ" value="22" /> < interpretationCode codeSystem="local" code="" /> <referenceRange> <observationRange> <text>25-34</text> </ observationRange> </referenceRange> </observation> </ component> <component> <observation moodCode="EVN" classCode="OBS"> <templateId root="06.27.840.1.095726.10.20.22.4.2" /> <id nullFlavor="NA" /> <code codeSystem="local" code="786-4" displayName= "Automated erythrocyte mean corpuscular hemoglobin concentration measurement ( mass/volume)" /> <statusCode code="completed" /> < effectiveTime value="464980832160" /> <value unit="g/dL" xsi:type="PQ" value="31" /> <interpretationCode codeSystem="local" code="" /> <referenceRange> <observationRange> <text>32-36</ text> </observationRange> </referenceRange> </ observation> </component> <component> <observation moodCode= "EVN" classCode="OBS"> <templateId root="2.16.840.1.418178.10.20.22.4.2 " /> <id nullFlavor="NA" /> <code codeSystem="local" code="788 -0" displayName="Automated erythrocyte distribution width ratio" /> < statusCode code="completed" /> <effectiveTime value="931123668092" /> <value unit="%" xsi:type="PQ" value="20.3" /> < interpretationCode codeSystem="local" code="" /> <referenceRange> <observationRange> <text>10.0-14.5</text> </ observationRange> </referenceRange> </observation> </ component> <component> <observation moodCode="EVN" classCode="OBS"> <templateId root="2.16.840.1.275801.10.20.22.4.2" /> <id nullFlavor="NA" /> <code codeSystem="local" code="777-3" displayName= "Automated blood platelet count (count/volume)" /> <statusCode code= "completed" /> <effectiveTime value="479968294599" /> <value unit="10*3/uL" xsi:type="PQ" value="219" /> <referenceRange> <observationRange> <text>130-400</text> </ observationRange> </referenceRange> </observation> </ component> <component> <observation moodCode="EVN" classCode="OBS"> <templateId root="06.27.840.1.661960.10.20.22.4.2" /> <id nullFlavor="NA" /> <code codeSystem="local" code="61342-4" displayName= "Automated blood platelet mean volume measurement" /> <statusCode code= "completed" /> <effectiveTime value="641142193149" /> <value unit="[foz_us]" xsi:type="PQ" value="10.6" /> <interpretationCode codeSystem="local" code="" /> <referenceRange> < observationRange> <text>7.4-10.4</text> </ observationRange> </referenceRange> </observation> </ component> <component> <observation moodCode="EVN" classCode="OBS"> <templateId root="06.27.840.1.009260.10.2022.4.2" /> <id nullFlavor="NA" /> <code codeSystem="local" code="770-8" displayName= "Automated blood neutrophils/100 leukocytes" /> <statusCode code= "completed" /> <effectiveTime value="955350183497" /> <value unit="%" xsi:type="PQ" value="80" /> <interpretationCode codeSystem ="local" code="" /> <referenceRange> <observationRange> <text>42-75</text> </observationRange> </ referenceRange> </observation> </component> <component> <observation moodCode="EVN" classCode="OBS"> <templateId root= "06.27.840.1.163440.10.20.22.4.2" /> <id nullFlavor="NA" /> < code codeSystem="local" code="736-9" displayName="Automated blood lymphocytes/ 100 leukocytes" /> <statusCode code="completed" /> < effectiveTime value="423961864179" /> <value unit="%" xsi:type="PQ " value="8" /> <interpretationCode codeSystem="local" code="" /> <referenceRange> <observationRange> <text>12-44</ text> </observationRange> </referenceRange> </ observation> </component> <component> <observation moodCode= "EVN" classCode="OBS"> <templateId root="2.16.840.1.587504.10..22.4.2 " /> <id nullFlavor="NA" /> <code codeSystem="local" code= "42024-0" displayName="Blood monocytes/100 leukocytes" /> <statusCode code="completed" /> <effectiveTime value="912522230807" /> < value unit="%" xsi:type="PQ" value="12" /> <referenceRange> <observationRange> <text>0-12</text> </ observationRange> </referenceRange> </observation> </ component> <component> <observation moodCode="EVN" classCode="OBS"> <templateId root="2.16.840.1.398615.10..22.4.2" /> <id nullFlavor="NA" /> <code codeSystem="local" code="713-8" displayName= "Automated blood eosinophils/100 leukocytes" /> <statusCode code= "completed" /> <effectiveTime value="089711620735" /> <value unit="%" xsi:type="PQ" value="0" /> <referenceRange> < observationRange> <text>0-10</text> </observationRange> </referenceRange> </observation> </component> < component> <observation moodCode="EVN" classCode="OBS"> < templateId root="216.840.1.595889.10.20.22.4.2" /> <id nullFlavor="NA " /> <code codeSystem="local" code="706-2" displayName="Automated blood basophils/100 leukocytes" /> <statusCode code="completed" /> <effectiveTime value="" /> <value unit="%" xsi: type="PQ" value="0" /> <referenceRange> <observationRange> <text>0-10</text> </observationRange> </ referenceRange> </observation> </component> <component> <observation moodCode="EVN" classCode="OBS"> <templateId root= "16.840.1.189346.10.22.4.2" /> <id nullFlavor="NA" /> < code codeSystem="local" code="751-8" displayName="Blood neutrophils automated count (number/volume)" /> <statusCode code="completed" /> < effectiveTime value="" /> <value unit="10*3" xsi:type="PQ" value="12.2" /> <interpretationCode codeSystem="local" code="" /> <referenceRange> <observationRange> <text>1.8-7.8 </text> </observationRange> </referenceRange> </ observation> </component> <component> <observation moodCode= "EVN" classCode="OBS"> <templateId root="216.840.1.638535.10.20.22.4.2 " /> <id nullFlavor="NA" /> <code codeSystem="local" code="731 -0" displayName="Blood lymphocytes automated count (number/volume)" /> <statusCode code="completed" /> <effectiveTime value="857418432821" /> <value unit="10*3" xsi:type="PQ" value="1.2" /> < referenceRange> <observationRange> <text>1.0-4.0</text> </observationRange> </referenceRange> </observation > </component> <component> <observation moodCode="EVN" classCode="OBS"> <templateId root="06.27.840.1.604176.102022.4.2" /> <id nullFlavor="NA" /> <code codeSystem="local" code="742-7" displayName="Blood monocytes automated count (number/volume)" /> < statusCode code="completed" /> <effectiveTime value="501912637688" /> <value unit="10*3" xsi:type="PQ" value="1.7" /> < interpretationCode codeSystem="local" code="" /> <referenceRange> <observationRange> <text>0.0-1.0</text> </ observationRange> </referenceRange> </observation> </ component> <component> <observation moodCode="EVN" classCode="OBS"> <templateId root="16.840.1.998470.102022.4.2" /> <id nullFlavor="NA" /> <code codeSystem="local" code="711-2" displayName= "Automated eosinophil count" /> <statusCode code="completed" /> <effectiveTime value="772631766524" /> <value unit="10*3/uL" xsi: type="PQ" value="0.0" /> <referenceRange> <observationRange > <text>0.0-0.3</text> </observationRange> </ referenceRange> </observation> </component> <component> <observation moodCode="EVN" classCode="OBS"> <templateId root= "06.27.840.1.829251.10..22.4.2" /> <id nullFlavor="NA" /> < code codeSystem="local" code="704-7" displayName="Automated blood basophil count (count/volume)" /> <statusCode code="completed" /> < effectiveTime value="155801328852" /> <value unit="10*3/uL" xsi:type= "PQ" value="0.0" /> <referenceRange> <observationRange> <text>0.0-0.1</text> </observationRange> </ referenceRange> </observation> </component> </organizer> </entry > <entry> <organizer moodCode="EVN" classCode="BATTERY"> <templateId root="216.840.1.617328.10..22.4.1" /> <id nullFlavor="NA" /> <code codeSystem="local" code="02530-7" displayName="Comprehensive metabolic panel" / > <statusCode code="completed" /> <component> <observation moodCode="EVN" classCode="OBS"> <templateId root= "2.16.840.1.988362.10..22.4.2" /> <id nullFlavor="NA" /> < code codeSystem="local" code="2951-2" displayName="Serum or plasma sodium measurement (moles/volume)" /> <statusCode code="completed" /> <effectiveTime value="920603617851" /> <value unit="mmol/L" xsi:type= "PQ" value="136" /> <referenceRange> <observationRange> <text>135-145</text> </observationRange> </ referenceRange> </observation> </component> <component> <observation moodCode="EVN" classCode="OBS"> <templateId root= "216.840.1.524637.10..4.2" /> <id nullFlavor="NA" /> < code codeSystem="local" code="2823-3" displayName="Serum or plasma potassium measurement (moles/volume)" /> <statusCode code="completed" /> <effectiveTime value="205843253227" /> <value unit="mmol/L" xsi:type= "PQ" value="3.5" /> <interpretationCode codeSystem="local" code="" / > <referenceRange> <observationRange> <text>3.6 -5.0</text> </observationRange> </referenceRange> </ observation> </component> <component> <observation moodCode= "EVN" classCode="OBS"> <templateId root="2.16.840.1.381479.10..22.4.2 " /> <id nullFlavor="NA" /> <code codeSystem="local" code= "" displayName="Serum or plasma chloride measurement (moles/volume)" /> <statusCode code="completed" /> <effectiveTime value= "030528740041" /> <value unit="mmol/L" xsi:type="PQ" value="104" /> <referenceRange> <observationRange> <text>98-107< /text> </observationRange> </referenceRange> </ observation> </component> <component> <observation moodCode= "EVN" classCode="OBS"> <templateId root="16.840.1.244087.10.20.22.4.2 " /> <id nullFlavor="NA" /> <code codeSystem="local" code= "2028-01" displayName="Carbon dioxide" /> <statusCode code="completed" / > <effectiveTime value="812922238268" /> <value unit="mmol/L" xsi:type="PQ" value="18" /> <interpretationCode codeSystem="local" code ="" /> <referenceRange> <observationRange> < text>21-32</text> </observationRange> </referenceRange> </observation> </component> <component> <observation moodCode="EVN" classCode="OBS"> <templateId root= "216.840.1.411223.10.20.22.4.2" /> <id nullFlavor="NA" /> < code codeSystem="local" code="06449-1" displayName="Serum or plasma anion gap determination (moles/volume)" /> <statusCode code="completed" /> <effectiveTime value="453430305169" /> <value unit="mmol/L" xsi: type="PQ" value="14" /> <referenceRange> <observationRange> <text>5-14</text> </observationRange> </ referenceRange> </observation> </component> <component> <observation moodCode="EVN" classCode="OBS"> <templateId root= "16.840.1.361222.10..22.4.2" /> <id nullFlavor="NA" /> < code codeSystem="local" code="3094-0" displayName="Serum or plasma urea nitrogen measurement (mass/volume)" /> <statusCode code="completed" /> <effectiveTime value="206855289812" /> <value unit="mg/dL" xsi:type="PQ" value="20" /> <interpretationCode codeSystem="local" code ="" /> <referenceRange> <observationRange> < text>7-18</text> </observationRange> </referenceRange> </observation> </component> <component> <observation moodCode="EVN" classCode="OBS"> <templateId root= "216.840.1.890865.10.20.22.4.2" /> <id nullFlavor="NA" /> < code codeSystem="local" code="2160-0" displayName="Serum or plasma creatinine measurement (mass/volume)" /> <statusCode code="completed" /> <effectiveTime value="818257357864" /> <value unit="mg/dL" xsi:type="PQ " value="0.85" /> <referenceRange> <observationRange> <text>0.60-1.30</text> </observationRange> </ referenceRange> </observation> </component> <component> <observation moodCode="EVN" classCode="OBS"> <templateId root= "2.16.840.1.800578.10.20.22.4.2" /> <id nullFlavor="NA" /> < code codeSystem="local" code="3097-3" displayName="Serum or plasma urea nitrogen /creatinine mass ratio" /> <statusCode code="completed" /> < effectiveTime value="020833699079" /> <value unit="" xsi:type="PQ" value="24" /> <referenceRange> <observationRange> <text>NRG</text> </observationRange> </referenceRange> </observation> </component> <component> <observation moodCode="EVN" classCode="OBS"> <templateId root= "2.16.840.1.717984.10..22.4.2" /> <id nullFlavor="NA" /> < code codeSystem="local" code="92787-6" displayName="Serum or plasma creatinine measurement with calculation of estimated glomerular filtration rate" /> <statusCode code="completed" /> <effectiveTime value="071236655316" /> <value unit="" xsi:type="PQ" value=">" /> < referenceRange> <observationRange> <text>NRG</text> </observationRange> </referenceRange> </observation> </component> <component> <observation moodCode="EVN" classCode= "OBS"> <templateId root="2.16.840.1.287392.10.20.22.4.2" /> < id nullFlavor="NA" /> <code codeSystem="local" code="2345-7" displayName="Serum or plasma glucose measurement (mass/volume)" /> < statusCode code="completed" /> <effectiveTime value="513387516959" /> <value unit="mg/dL" xsi:type="PQ" value="93" /> < referenceRange> <observationRange> <text>70-105</text> </observationRange> </referenceRange> </observation> </component> <component> <observation moodCode="EVN" classCode ="OBS"> <templateId root="2.16.840.1.096097.10..22.4.2" /> < id nullFlavor="NA" /> <code codeSystem="local" code="67434-0" displayName="Serum or plasma calcium measurement (mass/volume)" /> < statusCode code="completed" /> <effectiveTime value="146343457576" /> <value unit="mg/dL" xsi:type="PQ" value="9.1" /> < referenceRange> <observationRange> <text>8.5-10.1</text > </observationRange> </referenceRange> </observation > </component> <component> <observation moodCode="EVN" classCode="OBS"> <templateId root="2.16.840.1.150477.10.20.22.4.2" /> <id nullFlavor="NA" /> <code codeSystem="local" code="1974-06" displayName="Serum or plasma total bilirubin measurement (mass/volume)" /> <statusCode code="completed" /> <effectiveTime value="545898780010 " /> <value unit="mg/dL" xsi:type="PQ" value="0.6" /> < referenceRange> <observationRange> <text>0.1-1.0</text> </observationRange> </referenceRange> </observation > </component> <component> <observation moodCode="EVN" classCode="OBS"> <templateId root="2.16.840.1.328249.10.20.22.4.2" /> <id nullFlavor="NA" /> <code codeSystem="local" code="6768-6" displayName="Serum or plasma alkaline phosphatase measurement (enzymatic activity/volume)" /> <statusCode code="completed" /> < effectiveTime value="664443144511" /> <value unit="U/L" xsi:type="PQ" value="69" /> <referenceRange> <observationRange> <text>40-136</text> </observationRange> </referenceRange > </observation> </component> <component> <observation moodCode="EVN" classCode="OBS"> <templateId root= "216.840.1.963932.10..22.4.2" /> <id nullFlavor="NA" /> < code codeSystem="local" code="19208" displayName="Serum or plasma aspartate aminotransferase measurement (enzymatic activity/volume)" /> < statusCode code="completed" /> <effectiveTime value="802781760167" /> <value unit="U/L" xsi:type="PQ" value="21" /> <referenceRange > <observationRange> <text>5-34</text> </ observationRange> </referenceRange> </observation> </ component> <component> <observation moodCode="EVN" classCode="OBS"> <templateId root="216.840.1.517555.10.20.22.4.2" /> <id nullFlavor="NA" /> <code codeSystem="local" code="1742-6" displayName= "Serum or plasma alanine aminotransferase measurement (enzymatic activity/volume )" /> <statusCode code="completed" /> <effectiveTime value= "833762297370" /> <value unit="U/L" xsi:type="PQ" value="24" /> <referenceRange> <observationRange> <text>0-55</text > </observationRange> </referenceRange> </observation > </component> <component> <observation moodCode="EVN" classCode="OBS"> <templateId root="2.16.840.1.375907.10.20.22.4.2" /> <id nullFlavor="NA" /> <code codeSystem="local" code="2885-2" displayName="Serum or plasma protein measurement (mass/volume)" /> < statusCode code="completed" /> <effectiveTime value="477914532224" /> <value unit="g/dL" xsi:type="PQ" value="7.2" /> < referenceRange> <observationRange> <text>6.4-8.2</text> </observationRange> </referenceRange> </observation > </component> <component> <observation moodCode="EVN" classCode="OBS"> <templateId root="2.16.840.1.824994.10.20.22.4.2" /> <id nullFlavor="NA" /> <code codeSystem="local" code="1751-7" displayName="Serum or plasma albumin measurement (mass/volume)" /> < statusCode code="completed" /> <effectiveTime value="123272648503" /> <value unit="g/dL" xsi:type="PQ" value="4.2" /> < referenceRange> <observationRange> <text>3.2-4.5</text> </observationRange> </referenceRange> </observation > </component> <component> <observation moodCode="EVN" classCode="OBS"> <templateId root="2.16.840.1.811741.10..22.4.2" /> <id nullFlavor="NA" /> <code codeSystem="local" code= "CALCIUMCORR" displayName="CALCIUM CORRECTED" /> <statusCode code= "completed" /> <effectiveTime value="655375747630" /> <value unit="mg/dL" xsi:type="PQ" value="8.9" /> <referenceRange> < observationRange> <text>8.5-10.1</text> </ observationRange> </referenceRange> </observation> </ component> </organizer> </entry> <entry> <organizer moodCode="EVN" classCode="BATTERY"> <templateId root="2.16.840.1.785388.10..22.4.1" /> <id nullFlavor="NA" /> <code codeSystem="local" code="85399-5" displayName="Blood manual differential performed detection" /> <statusCode code="completed" /> <component> <observation moodCode="EVN" classCode="OBS"> <templateId root="2.16.840.1.454668.10.20.22.4.2" /> <id nullFlavor="NA" /> <code codeSystem="local" code="71371-6 " displayName="Blood monocytes/100 leukocytes" /> <statusCode code= "completed" /> <effectiveTime value="243363335362" /> <value unit="%" xsi:type="PQ" value="6" /> <referenceRange> < observationRange> <text>NRG</text> </observationRange> </referenceRange> </observation> </component> < component> <observation moodCode="EVN" classCode="OBS"> < templateId root="216.840.1.362331.10.20.22.4.2" /> <id nullFlavor="NA " /> <code codeSystem="local" code="769-0" displayName="Manual blood segmented neutrophils/100 leukocytes" /> <statusCode code="completed" / > <effectiveTime value="925586333136" /> <value unit="%" xsi:type="PQ" value="85" /> <referenceRange> < observationRange> <text>NRG</text> </observationRange> </referenceRange> </observation> </component> < component> <observation moodCode="EVN" classCode="OBS"> < templateId root="16.840.1.471973.10.20.22.4.2" /> <id nullFlavor="NA " /> <code codeSystem="local" code="36996-2" displayName="Blood band neutrophils/100 leukocytes" /> <statusCode code="completed" /> <effectiveTime value="667793067355" /> <value unit="%" xsi:type= "PQ" value="0" /> <referenceRange> <observationRange> <text>NRG</text> </observationRange> </ referenceRange> </observation> </component> <component> <observation moodCode="EVN" classCode="OBS"> <templateId root= "16.840.1.802646.10.20.22.4.2" /> <id nullFlavor="NA" /> < code codeSystem="local" code="737-7" displayName="Manual blood lymphocytes/100 leukocytes" /> <statusCode code="completed" /> <effectiveTime value="122351226335" /> <value unit="%" xsi:type="PQ" value="9" /> <referenceRange> <observationRange> <text>NRG< /text> </observationRange> </referenceRange> </ observation> </component> <component> <observation moodCode= "EVN" classCode="OBS"> <templateId root="216.840.1.435214.10..4.2 " /> <id nullFlavor="NA" /> <code codeSystem="local" code= "9727-9" displayName="Manual eosinophils/100 leukocytes in nose" /> < statusCode code="completed" /> <effectiveTime value="674086874256" /> <value unit="%" xsi:type="PQ" value="0" /> <referenceRange > <observationRange> <text>NRG</text> </ observationRange> </referenceRange> </observation> </ component> <component> <observation moodCode="EVN" classCode="OBS"> <templateId root="216.840.1.065148.02.28.22.4.2" /> <id nullFlavor="NA" /> <code codeSystem="local" code="707-0" displayName= "Manual blood basophils/100 leukocytes" /> <statusCode code="completed " /> <effectiveTime value="740738397011" /> <value unit="% " xsi:type="PQ" value="0" /> <referenceRange> < observationRange> <text>NRG</text> </observationRange> </referenceRange> </observation> </component> < component> <observation moodCode="EVN" classCode="OBS"> < templateId root="216.840.1.304403.10..22.4.2" /> <id nullFlavor="NA " /> <code codeSystem="local" code="702-1" displayName="Blood anisocytosis detection by light microscopy" /> <statusCode code= "completed" /> <effectiveTime value="517793395908" /> <value unit="" xsi:type="PQ" value="MODERATE" /> <referenceRange> < observationRange> <text>NRG</text> </observationRange> </referenceRange> </observation> </component> < component> <observation moodCode="EVN" classCode="OBS"> < templateId root="216.840.1.602353.10..22.4.2" /> <id nullFlavor="NA " /> <code codeSystem="local" code="728-6" displayName="Blood hypochromia detection by light microscopy" /> <statusCode code= "completed" /> <effectiveTime value="535385156970" /> <value unit="" xsi:type="PQ" value="MARKED" /> <referenceRange> < observationRange> <text>NRG</text> </observationRange> </referenceRange> </observation> </component> < component> <observation moodCode="EVN" classCode="OBS"> < templateId root="16.840.1.123078.10...4.2" /> <id nullFlavor="NA " /> <code codeSystem="local" code="741-9" displayName="Blood microcytes detection by light microscopy" /> <statusCode code= "completed" /> <effectiveTime value="231306650366" /> <value unit="" xsi:type="PQ" value="MODERATE" /> <referenceRange> < observationRange> <text>NRG</text> </observationRange> </referenceRange> </observation> </component> </ organizer> </entry> <entry> <organizer moodCode="EVN" classCode="BATTERY"> <templateId root="16.840.1.911189.10..22.4.1" /> <id nullFlavor= "NA" /> <code codeSystem="local" code="2117-12" displayName="Serum or plasma choriogonadotropin ( test) detection" /> <statusCode code= "completed" /> <component> <observation moodCode="EVN" classCode= "OBS"> <templateId root="216.840.1.745016.10.20.22.4.2" /> < id nullFlavor="NA" /> <code codeSystem="local" code="2117-12" displayName="Serum or plasma choriogonadotropin ( test) detection" /> <statusCode code="completed" /> <effectiveTime value= "186128338969" /> <value unit="" xsi:type="PQ" value="NEGATIVE" /> <referenceRange> <observationRange> <text>NEGATIVE </text> </observationRange> </referenceRange> </ observation> </component> </organizer> </entry> <entry> <organizer moodCode="EVN" classCode="BATTERY"> <templateId root= "216.840.1.313858.10.20.22.4.1" /> <id nullFlavor="NA" /> <code codeSystem="local" code="42508-7" displayName="Blood lactic acid measurement ( moles/volume)" /> <statusCode code="completed" /> <component> < observation moodCode="EVN" classCode="OBS"> <templateId root= "216.840.1.941936.10.20.22.4.2" /> <id nullFlavor="NA" /> < code codeSystem="local" code="65787-6" displayName="Blood lactic acid measurement (moles/volume)" /> <statusCode code="completed" /> <effectiveTime value="858595452509" /> <value unit="mmol/L" xsi:type= "PQ" value="1.03" /> <referenceRange> <observationRange> <text>0.50-2.00</text> </observationRange> </ referenceRange> </observation> </component> </organizer> </entry > <entry> <organizer moodCode="EVN" classCode="BATTERY"> <templateId root="16.840.1.931631.10..22.4.1" /> <id nullFlavor="NA" /> <code codeSystem="local" code="600-7" displayName="Bacterial blood culture" /> < statusCode code="completed" /> <component> <observation moodCode= "EVN" classCode="OBS"> <templateId root="840.1.095376...4.2 " /> <id nullFlavor="NA" /> <code codeSystem="local" code="600 -7" displayName="Bacterial blood culture" /> <statusCode code= "completed" /> <effectiveTime value="107135171482" /> <value unit="" xsi:type="PQ" value="NG" /> <referenceRange> < observationRange> <text>NRG</text> </observationRange> </referenceRange> </observation> </component> </ organizer> </entry> <entry> <organizer moodCode="EVN" classCode="BATTERY"> <templateId root="06.27.840.1.757266...4.1" /> <id nullFlavor= "NA" /> <code codeSystem="local" code="600-7" displayName="Bacterial blood culture" /> <statusCode code="completed" /> <component> < observation moodCode="EVN" classCode="OBS"> <templateId root= "06.27.840.1.663672.10..22.4.2" /> <id nullFlavor="NA" /> < code codeSystem="local" code="600-7" displayName="Bacterial blood culture" /> <statusCode code="completed" /> <effectiveTime value= "270489968918" /> <value unit="" xsi:type="PQ" value="NG" /> < referenceRange> <observationRange> <text>NRG</text> </observationRange> </referenceRange> </observation> </component> </organizer> </entry> <entry> <organizer moodCode="EVN" classCode="BATTERY"> <templateId root="216.840.1.094909.10.20.22.4.1" /> <id nullFlavor="NA" /> <code codeSystem="local" code="680-9" displayName="Microscopic examination by wet preparation" /> <statusCode code="completed" /> <component> <observation moodCode="EVN" classCode="OBS"> <templateId root="216.840.1.776088.10.20.22.4.2" /> <id nullFlavor="NA" /> <code codeSystem="local" code= "WETRESULT" displayName="WET PREP RESULTS" /> <statusCode code= "completed" /> <effectiveTime value="585776882245" /> <value unit="" xsi:type="PQ" value="05/24 20:14 BY P ADAMA" /> <referenceRange > <observationRange> <text>NRG</text> </ observationRange> </referenceRange> </observation> </ component> </organizer> </entry> <entry> <organizer moodCode="EVN" classCode="BATTERY"> <templateId root="16.840.1.196573.10.20.22.4.1" /> <id nullFlavor="NA" /> <code codeSystem="local" code="40444-3" displayName="Neisseria gonorrhoeae DNA detection by probe and signal amplification method" /> <statusCode code="completed" /> <component> <observation moodCode="EVN" classCode="OBS"> <templateId root= "2.16.840.1.832704.10..22.4.2" /> <id nullFlavor="NA" /> < code codeSystem="local" code="59497-0" displayName="Gonorrhea amp DNA-urine" /> <statusCode code="completed" /> <effectiveTime value= "125517091868" /> <value unit="" xsi:type="PQ" value="Not Detected" /> <referenceRange> <observationRange> <text>Not Detected</text> </observationRange> </referenceRange> </observation> </component> </organizer> </entry> <entry> < organizer moodCode="EVN" classCode="BATTERY"> <templateId root= "2.16.840.1.439036.10..22.4.1" /> <id nullFlavor="NA" /> <code codeSystem="local" code="30851-8" displayName="Chlamydia trachomatis DNA detection by probe and signal amplification method" /> <statusCode code= "completed" /> <component> <observation moodCode="EVN" classCode= "OBS"> <templateId root="2.16.840.1.104869.10.20.22.4.2" /> < id nullFlavor="NA" /> <code codeSystem="local" code="93839-8" displayName="Chlamydia trachomatis DNA detection by probe and target amplification method" /> <statusCode code="completed" /> < effectiveTime value="206705014947" /> <value unit="" xsi:type="PQ" value="Not Detected" /> <referenceRange> <observationRange> <text>Not Detected</text> </observationRange> </referenceRange> </observation> </component> </organizer> </ entry> <entry> <organizer moodCode="EVN" classCode="BATTERY"> < templateId root="2.16.840.1.387108.10.20.22.4.1" /> <id nullFlavor="NA" /> <code codeSystem="local" code="39847-6" displayName="Complete blood count (CBC) with automated white blood cell (WBC) differential" /> <statusCode code="completed" /> <component> <observation moodCode="EVN" classCode="OBS"> <templateId root="2.16.840.1.816200.10.20.22.4.2" /> <id nullFlavor="NA" /> <code codeSystem="local" code="6690-2" displayName="Blood leukocytes automated count (number/volume)" /> < statusCode code="completed" /> <effectiveTime value="" /> <value unit="10*3/uL" xsi:type="PQ" value="9.0" /> < referenceRange> <observationRange> <text>4.3-11.0</text > </observationRange> </referenceRange> </observation > </component> <component> <observation moodCode="EVN" classCode="OBS"> <templateId root="2.16.840.1.312577.10..22.4.2" /> <id nullFlavor="NA" /> <code codeSystem="local" code="789-8" displayName="Blood erythrocytes automated count (number/volume)" /> < statusCode code="completed" /> <effectiveTime value="497885759041" /> <value unit="10*6/uL" xsi:type="PQ" value="3.20" /> < interpretationCode codeSystem="local" code="" /> <referenceRange> <observationRange> <text>4.35-5.85</text> </ observationRange> </referenceRange> </observation> </ component> <component> <observation moodCode="EVN" classCode="OBS"> <templateId root="16.840.1.408635.10.2022.4.2" /> <id nullFlavor="NA" /> <code codeSystem="local" code="21007-9" displayName= "Venous blood hemoglobin measurement (mass/volume)" /> <statusCode code ="completed" /> <effectiveTime value="782429845737" /> <value unit="g/dL" xsi:type="PQ" value="7.0" /> <interpretationCode codeSystem ="local" code="" /> <referenceRange> <observationRange> <text>11.5-16.0</text> </observationRange> </ referenceRange> </observation> </component> <component> <observation moodCode="EVN" classCode="OBS"> <templateId root= "06.27.840.1.770020.10.22.4.2" /> <id nullFlavor="NA" /> < code codeSystem="local" code="32037-5" displayName="Blood hematocrit (volume fraction)" /> <statusCode code="completed" /> <effectiveTime value="292014028689" /> <value unit="%" xsi:type="PQ" value="23" / > <interpretationCode codeSystem="local" code="" /> < referenceRange> <observationRange> <text>35-52</text> </observationRange> </referenceRange> </observation> </component> <component> <observation moodCode="EVN" classCode= "OBS"> <templateId root="16.840.1.612603.10.20.22.4.2" /> < id nullFlavor="NA" /> <code codeSystem="local" code="787-2" displayName ="Automated erythrocyte mean corpuscular volume" /> <statusCode code= "completed" /> <effectiveTime value="098293233306" /> <value unit="[foz_us]" xsi:type="PQ" value="73" /> <interpretationCode codeSystem="local" code="" /> <referenceRange> < observationRange> <text>80-99</text> </observationRange > </referenceRange> </observation> </component> < component> <observation moodCode="EVN" classCode="OBS"> < templateId root="2.16.840.1.501536.10..22.4.2" /> <id nullFlavor="NA " /> <code codeSystem="local" code="785-6" displayName="Automated erythrocyte mean corpuscular hemoglobin (mass per erythrocyte)" /> < statusCode code="completed" /> <effectiveTime value="177979823333" /> <value unit="pg" xsi:type="PQ" value="22" /> < interpretationCode codeSystem="local" code="" /> <referenceRange> <observationRange> <text>25-34</text> </ observationRange> </referenceRange> </observation> </ component> <component> <observation moodCode="EVN" classCode="OBS"> <templateId root="2.16.840.1.695922.10..22.4.2" /> <id nullFlavor="NA" /> <code codeSystem="local" code="786-4" displayName= "Automated erythrocyte mean corpuscular hemoglobin concentration measurement ( mass/volume)" /> <statusCode code="completed" /> < effectiveTime value="268360153856" /> <value unit="g/dL" xsi:type="PQ" value="30" /> <interpretationCode codeSystem="local" code="" /> <referenceRange> <observationRange> <text>32-36</ text> </observationRange> </referenceRange> </ observation> </component> <component> <observation moodCode= "EVN" classCode="OBS"> <templateId root="2.16.840.1.747132.10.20.22.4.2 " /> <id nullFlavor="NA" /> <code codeSystem="local" code="788 -0" displayName="Automated erythrocyte distribution width ratio" /> < statusCode code="completed" /> <effectiveTime value="803306446843" /> <value unit="%" xsi:type="PQ" value="20.6" /> < interpretationCode codeSystem="local" code="" /> <referenceRange> <observationRange> <text>10.0-14.5</text> </ observationRange> </referenceRange> </observation> </ component> <component> <observation moodCode="EVN" classCode="OBS"> <templateId root="216.840.1.732622.10..4.2" /> <id nullFlavor="NA" /> <code codeSystem="local" code="777-3" displayName= "Automated blood platelet count (count/volume)" /> <statusCode code= "completed" /> <effectiveTime value="" /> <value unit="10*3/uL" xsi:type="PQ" value="215" /> <referenceRange> <observationRange> <text>130-400</text> </ observationRange> </referenceRange> </observation> </ component> <component> <observation moodCode="EVN" classCode="OBS"> <templateId root="216.840.1.421391.10.20.22.4.2" /> <id nullFlavor="NA" /> <code codeSystem="local" code="17506-1" displayName= "Automated blood platelet mean volume measurement" /> <statusCode code= "completed" /> <effectiveTime value="610759353824" /> <value unit="[foz_us]" xsi:type="PQ" value="11.1" /> <interpretationCode codeSystem="local" code="" /> <referenceRange> < observationRange> <text>7.4-10.4</text> </ observationRange> </referenceRange> </observation> </ component> <component> <observation moodCode="EVN" classCode="OBS"> <templateId root="2.16.840.1.384534.10.2022.4.2" /> <id nullFlavor="NA" /> <code codeSystem="local" code="770-8" displayName= "Automated blood neutrophils/100 leukocytes" /> <statusCode code= "completed" /> <effectiveTime value="687702260923" /> <value unit="%" xsi:type="PQ" value="78" /> <interpretationCode codeSystem ="local" code="" /> <referenceRange> <observationRange> <text>42-75</text> </observationRange> </ referenceRange> </observation> </component> <component> <observation moodCode="EVN" classCode="OBS"> <templateId root= "2.16.840.1.503265.10.2022.4.2" /> <id nullFlavor="NA" /> < code codeSystem="local" code="736-9" displayName="Automated blood lymphocytes/ 100 leukocytes" /> <statusCode code="completed" /> < effectiveTime value="479427410262" /> <value unit="%" xsi:type="PQ " value="11" /> <interpretationCode codeSystem="local" code="" /> <referenceRange> <observationRange> <text>12-44</ text> </observationRange> </referenceRange> </ observation> </component> <component> <observation moodCode= "EVN" classCode="OBS"> <templateId root="2.16.840.1.888054.10.20.22.4.2 " /> <id nullFlavor="NA" /> <code codeSystem="local" code= "13772-7" displayName="Blood monocytes/100 leukocytes" /> <statusCode code="completed" /> <effectiveTime value="399902929720" /> < value unit="%" xsi:type="PQ" value="11" /> <referenceRange> <observationRange> <text>0-12</text> </ observationRange> </referenceRange> </observation> </ component> <component> <observation moodCode="EVN" classCode="OBS"> <templateId root="216.840.1.971442.10..22.4.2" /> <id nullFlavor="NA" /> <code codeSystem="local" code="713-8" displayName= "Automated blood eosinophils/100 leukocytes" /> <statusCode code= "completed" /> <effectiveTime value="478014231038" /> <value unit="%" xsi:type="PQ" value="1" /> <referenceRange> < observationRange> <text>0-10</text> </observationRange> </referenceRange> </observation> </component> < component> <observation moodCode="EVN" classCode="OBS"> < templateId root="216.840.1.315500.10.20.22.4.2" /> <id nullFlavor="NA " /> <code codeSystem="local" code="706-2" displayName="Automated blood basophils/100 leukocytes" /> <statusCode code="completed" /> <effectiveTime value="593426269643" /> <value unit="%" xsi: type="PQ" value="0" /> <referenceRange> <observationRange> <text>0-10</text> </observationRange> </ referenceRange> </observation> </component> <component> <observation moodCode="EVN" classCode="OBS"> <templateId root= "2.16.840.1.875551.10.2022.4.2" /> <id nullFlavor="NA" /> < code codeSystem="local" code="751-8" displayName="Blood neutrophils automated count (number/volume)" /> <statusCode code="completed" /> < effectiveTime value="526596620198" /> <value unit="10*3" xsi:type="PQ" value="7.0" /> <referenceRange> <observationRange> <text>1.8-7.8</text> </observationRange> </ referenceRange> </observation> </component> <component> <observation moodCode="EVN" classCode="OBS"> <templateId root= "2.16.840.1.637371.10.2022.4.2" /> <id nullFlavor="NA" /> < code codeSystem="local" code="731-0" displayName="Blood lymphocytes automated count (number/volume)" /> <statusCode code="completed" /> < effectiveTime value="335047192757" /> <value unit="10*3" xsi:type="PQ" value="1.0" /> <referenceRange> <observationRange> <text>1.0-4.0</text> </observationRange> </ referenceRange> </observation> </component> <component> <observation moodCode="EVN" classCode="OBS"> <templateId root= "216.840.1.072025.22.4.2" /> <id nullFlavor="NA" /> < code codeSystem="local" code="742-7" displayName="Blood monocytes automated count (number/volume)" /> <statusCode code="completed" /> < effectiveTime value="369514432593" /> <value unit="10*3" xsi:type="PQ" value="1.0" /> <referenceRange> <observationRange> <text>0.0-1.0</text> </observationRange> </ referenceRange> </observation> </component> <component> <observation moodCode="EVN" classCode="OBS"> <templateId root= "06.27.840.1.609551.02.28.22.4.2" /> <id nullFlavor="NA" /> < code codeSystem="local" code="711-2" displayName="Automated eosinophil count" / > <statusCode code="completed" /> <effectiveTime value= "438949538960" /> <value unit="10*3/uL" xsi:type="PQ" value="0.1" /> <referenceRange> <observationRange> <text>0.0- 0.3</text> </observationRange> </referenceRange> </ observation> </component> <component> <observation moodCode= "EVN" classCode="OBS"> <templateId root="06.27.840.1.674665.22.4.2 " /> <id nullFlavor="NA" /> <code codeSystem="local" code="704 -7" displayName="Automated blood basophil count (count/volume)" /> < statusCode code="completed" /> <effectiveTime value="854708002492" /> <value unit="10*3/uL" xsi:type="PQ" value="0.0" /> < referenceRange> <observationRange> <text>0.0-0.1</text> </observationRange> </referenceRange> </observation > </component> </organizer> </entry> <entry> <organizer moodCode= "EVN" classCode="BATTERY"> <templateId root="2.16.840.1.914296.10.20.22.4.1 " /> <id nullFlavor="NA" /> <code codeSystem="local" code="38653-4" displayName="Serum iron and total iron binding capacity panel" /> < statusCode code="completed" /> <component> <observation moodCode= "EVN" classCode="OBS"> <templateId root="2.16.840.1.090447.10.20.22.4.2 " /> <id nullFlavor="NA" /> <code codeSystem="local" code= "2498-4" displayName="Serum or plasma iron measurement (mass/volume)" /> <statusCode code="completed" /> <effectiveTime value="199617431519" /> <value unit="%" xsi:type="PQ" value="<" /> < interpretationCode codeSystem="local" code="" /> <referenceRange> <observationRange> <text>35-180</text> </ observationRange> </referenceRange> </observation> </ component> <component> <observation moodCode="EVN" classCode="OBS"> <templateId root="216.840.1.828023.10.20.22.4.2" /> <id nullFlavor="NA" /> <code codeSystem="local" code="35464-8" displayName= "Total iron binding capacity and transferrin saturation measurement" /> <statusCode code="completed" /> <effectiveTime value="584286340568" / > <value unit="%" xsi:type="PQ" value="<" /> < referenceRange> <observationRange> <text>15-50</text> </observationRange> </referenceRange> </observation> </component> <component> <observation moodCode="EVN" classCode= "OBS"> <templateId root="216.840.1.808537.10.20.22.4.2" /> < id nullFlavor="NA" /> <code codeSystem="local" code="2500" displayName="Iron binding capacity [mass/volume] in serum or plasma" /> <statusCode code="completed" /> <effectiveTime value="652547614963" / > <value unit="%" xsi:type="PQ" value="<" /> < referenceRange> <observationRange> <text>280-380</text> </observationRange> </referenceRange> </observation > </component> <component> <observation moodCode="EVN" classCode="OBS"> <templateId root="06.27.840.1.509548.10.20.22.4.2" /> <id nullFlavor="NA" /> <code codeSystem="local" code="25005-16" displayName="UIBC (unsaturated iron binding capacity)" /> <statusCode code="completed" /> <effectiveTime value="584625660965" /> < value unit="%" xsi:type="PQ" value="370" /> <referenceRange> <observationRange> <text>55-450</text> </ observationRange> </referenceRange> </observation> </ component> <component> <observation moodCode="EVN" classCode="OBS"> <templateId root="06.27.840.1.049938.10.20.22.4.2" /> <id nullFlavor="NA" /> <code codeSystem="local" code="2276-4" displayName= "Serum or plasma ferritin measurement (mass/volume)" /> <statusCode code="completed" /> <effectiveTime value="468297641060" /> < value unit="%" xsi:type="PQ" value="63.2" /> <referenceRange> <observationRange> <text>20.0-177.0</text> </ observationRange> </referenceRange> </observation> </ component> </organizer> </entry> <entry> <organizer moodCode="EVN" classCode="BATTERY"> <templateId root="216.840.1.951670.10.20.22.4.1" /> <id nullFlavor="NA" /> <code codeSystem="local" code="36760-3" displayName="Whole blood basic metabolic panel" /> <statusCode code= "completed" /> <component> <observation moodCode="EVN" classCode= "OBS"> <templateId root="216.840.1.770113.10.20.22.4.2" /> < id nullFlavor="NA" /> <code codeSystem="local" code="2951-2" displayName="Serum or plasma sodium measurement (moles/volume)" /> < statusCode code="completed" /> <effectiveTime value="876429327387" /> <value unit="mmol/L" xsi:type="PQ" value="139" /> < referenceRange> <observationRange> <text>135-145</text> </observationRange> </referenceRange> </observation > </component> <component> <observation moodCode="EVN" classCode="OBS"> <templateId root="216.840.1.955114.10.20.22.4.2" /> <id nullFlavor="NA" /> <code codeSystem="local" code="2823-3" displayName="Serum or plasma potassium measurement (moles/volume)" /> < statusCode code="completed" /> <effectiveTime value="386570935554" /> <value unit="mmol/L" xsi:type="PQ" value="3.6" /> < referenceRange> <observationRange> <text>3.6-5.0</text> </observationRange> </referenceRange> </observation > </component> <component> <observation moodCode="EVN" classCode="OBS"> <templateId root="2.16.840.1.564618.10.20.22.4.2" /> <id nullFlavor="NA" /> <code codeSystem="local" code="" displayName="Serum or plasma chloride measurement (moles/volume)" /> < statusCode code="completed" /> <effectiveTime value="738397823384" /> <value unit="mmol/L" xsi:type="PQ" value="109" /> < interpretationCode codeSystem="local" code="" /> <referenceRange> <observationRange> <text>98-107</text> </ observationRange> </referenceRange> </observation> </ component> <component> <observation moodCode="EVN" classCode="OBS"> <templateId root="2.16.840.1.642467.10.20.22.4.2" /> <id nullFlavor="NA" /> <code codeSystem="local" code="2028-01" displayName= "Carbon dioxide" /> <statusCode code="completed" /> < effectiveTime value="019500868146" /> <value unit="mmol/L" xsi:type="PQ " value="21" /> <referenceRange> <observationRange> <text>21-32</text> </observationRange> </ referenceRange> </observation> </component> <component> <observation moodCode="EVN" classCode="OBS"> <templateId root= "2.16.840.1.568923.10.20.22.4.2" /> <id nullFlavor="NA" /> < code codeSystem="local" code="73498-2" displayName="Serum or plasma anion gap determination (moles/volume)" /> <statusCode code="completed" /> <effectiveTime value="" /> <value unit="mmol/L" xsi: type="PQ" value="9" /> <referenceRange> <observationRange> <text>5-14</text> </observationRange> </ referenceRange> </observation> </component> <component> <observation moodCode="EVN" classCode="OBS"> <templateId root= "216.840.1.986164.10..22.4.2" /> <id nullFlavor="NA" /> < code codeSystem="local" code="3094-0" displayName="Serum or plasma urea nitrogen measurement (mass/volume)" /> <statusCode code="completed" /> <effectiveTime value="" /> <value unit="mg/dL" xsi:type="PQ" value="18" /> <referenceRange> < observationRange> <text>7-18</text> </observationRange> </referenceRange> </observation> </component> < component> <observation moodCode="EVN" classCode="OBS"> < templateId root="16.840.1.694977.10..22.4.2" /> <id nullFlavor="NA " /> <code codeSystem="local" code="2160-0" displayName="Serum or plasma creatinine measurement (mass/volume)" /> <statusCode code= "completed" /> <effectiveTime value="243821253121" /> <value unit="mg/dL" xsi:type="PQ" value="0.75" /> <referenceRange> <observationRange> <text>0.60-1.30</text> </ observationRange> </referenceRange> </observation> </ component> <component> <observation moodCode="EVN" classCode="OBS"> <templateId root="216.840.1.371066.10.20.22.4.2" /> <id nullFlavor="NA" /> <code codeSystem="local" code="3097-3" displayName= "Serum or plasma urea nitrogen/creatinine mass ratio" /> <statusCode code="completed" /> <effectiveTime value="157831212283" /> < value unit="" xsi:type="PQ" value="24" /> <referenceRange> < observationRange> <text>NRG</text> </observationRange> </referenceRange> </observation> </component> < component> <observation moodCode="EVN" classCode="OBS"> < templateId root="06.27.840.1.257407.10..22.4.2" /> <id nullFlavor="NA " /> <code codeSystem="local" code="94561-6" displayName="Serum or plasma creatinine measurement with calculation of estimated glomerular filtration rate" /> <statusCode code="completed" /> < effectiveTime value="486099251790" /> <value unit="" xsi:type="PQ" value=">" /> <referenceRange> <observationRange> <text>NRG</text> </observationRange> </referenceRange > </observation> </component> <component> <observation moodCode="EVN" classCode="OBS"> <templateId root= "16.840.1.400185.10.20.22.4.2" /> <id nullFlavor="NA" /> < code codeSystem="local" code="2345-7" displayName="Serum or plasma glucose measurement (mass/volume)" /> <statusCode code="completed" /> <effectiveTime value="800857532659" /> <value unit="mg/dL" xsi:type="PQ " value="92" /> <referenceRange> <observationRange> <text>70-105</text> </observationRange> </ referenceRange> </observation> </component> <component> <observation moodCode="EVN" classCode="OBS"> <templateId root= "2.16.840.1.622017.10.20.22.4.2" /> <id nullFlavor="NA" /> < code codeSystem="local" code="29075-9" displayName="Serum or plasma calcium measurement (mass/volume)" /> <statusCode code="completed" /> <effectiveTime value="895389852113" /> <value unit="mg/dL" xsi:type="PQ " value="8.3" /> <interpretationCode codeSystem="local" code="" /> <referenceRange> <observationRange> <text>8.5- 10.1</text> </observationRange> </referenceRange> </ observation> </component> </organizer> </entry></section> Encounters ACCT No. Visit Date/Time Discharge Status Pt. Type Provider Facility Loc./Unit Complaint [id number] 11/09/2016 16:32:00 11/09/2016 16:58:00 DIS Emergency [facility] W.ED [id number] 09/06/2016 12:52:00 09/06/2016 16:30:00 DIS Emergency [facility] W.ED [id number] 07/31/2016 16:36:00 07/31/2016 16:56:00 DIS Emergency Kirt DOStiven [facility] W.ED [id number] 01/11/2016 08:16:00 01/11/2016 08:47:00 DIS Emergency Marc TA, [facility] W.EDW [id number] 12/28/2015 19:32:00 12/28/2015 20:25:00 DIS Emergency Marc TA, [facility].EDW [id number] 11/28/2015 08:04:00 11/28/2015 08:30:00 DIS Emergency Jesica TA, Leon Shelley [facility].EDW [id number] 01/04/2015 09:52:00 01/04/2015 13:04:00 DIS Emergency Santoyo DO, [facility] W.HANNAH [id number] 01/01/2015 09:22:00 01/01/2015 12:40:00 DIS Emergency Secrisantoinette SANTACRUZ, Colt Lal [facility] W.EDW [id number] 12/27/2014 21:37:00 12/27/2014 23:13:00 DIS Emergency Marc TA, [facility].EDW [id number] 09/17/2014 10:42:00 09/17/2014 11:10:00 [id number]2017 08:00:00 11/26/2017 23:59:59 CLS Outpatient FAWN VIEIRA [facility] [id number] 11/19/2017 20:04:00 11/20/2017 13:40:00 DIS Outpatient Leon Naik [facility] MED-SURG [id number] 03/31/2017 12:56:00 03/31/2017 23:59:00 DIS Outpatient Roxy Moon [id number] 03/27/2017 21:26:00 03/28/2017 18:20:00 DIS Outpatient Daniel Joseph [facility] MED-SURG [id number] 03/27/2017 23:46:04 Document Registration [id number] 05/24/2018 20:00:00 05/26/2018 14:55:00 DIS Outpatient BLAYNE TA, CHET Whipple [facility] 4TH PYELONEPHRITIS, HYDROSALPYRX [id number] 03/19/2018 17:23:00 03/21/2018 11:50:00 DIS Inpatient JOSEPH TA, JOSE [facility] 4TH SEPSIS, UTI [id number] 01/29/2018 12:54:00 01/29/2018 19:55:00 DIS Outpatient JAYY POPE DO [facility] SDC LEFT BREAST ABSCESS [id number] 12/01/2017 17:13:00 12/01/2017 18:01:00 DIS Emergency IRISH ECKERT [facility] ER L HAND INJ [id number] 05/29/2017 02:30:00 05/29/2017 06:20:00 DIS Emergency KENDRA TA, SHIRLENE Jackson [facility] ER LEFT SIDE ABD PAIN [id number] 06/12/2018 17:05:00 ACT Emergency IRISH ECKERT [facility] ER L LEG POSS STAPH INFECTION/WOUND [id number] 11/19/2017 20:04:00 Document Registration
== END 2018-06-12 17:16 | disposition left against medical advice (07) ==
LOC: EDUNIT# 17:04 → ER 17:05
DX: S81.802A Unspecified open wound, left lower leg, initial encounter (principal); X58.XXXA Exposure to other specified factors, initial encounter

== ENCOUNTER 2018-06-12 20:38 | Emergency (ER) | payer SELFPAY ==
--- OUTSIDE RECORDS SUMMARY | 2018-06-12 20:45 | XMS REPORT | Continuity of Care Document ---
Author Author [facility] Organization [facility] Address Unknown Phone Unavailable Allergies Active Description Code Type Severity Reaction Onset Reported/Identified Relationship to Patient Clinical Status Yes CIPRO MODERATE DERMATOLOGICAL - HIV Yes No Known Drug Allergies [id number] Drug Allergy Unknown N/A 09/22/2007 Yes ciprofloxacin ciprofloxacin Drug Allergy Unknown unknown 07/31/2016 Yes ciprofloxacin [id number] Drug Allergy Unknown N/A 05/29/2017 Medications Medication [...] A D50.9 IRON DEFICIENCY ANEMIA, UNSPECIFIED 11/20/2017 [facility] D64.9 ANEMIA, UNSPECIFIED 11/20/2017 Leon Naik [...] Z90.89 ACQUIRED ABSENCE OF OTHER ORGANS 01/29/2018 [place] JAYY SANTACRUZ Ot F17.210 NICOTINE DEPENDENCE, CIGARETTES, UNCOMPL 01/29/2018 [facility], JAYY D Ot N61.1 ABSCESS OF THE BREAST AND NIPPLE [facility] F17.210 NICOTINE DEPENDENCE, CIGARETTES, UNCOMPL 02/02[facility] N61.1 ABSCESS OF THE [...] F17.210 NICOTINE DEPENDENCE, CIGARETTES, UNCOMPL 03/21/2018 JOSE RIUZ MD Ot H93.92 UNSPECIFIED DISORDER OF LEFT [...] data. <section xmlns="urn:hl7-org:v3" xmlns:xsi="http:// www.3.org/2001/XMLSchema-instance"> <templateId root= "2.16.840.1.240833.10.20.22.2.3" /> <templateId root= "2.16.840.1.129589.10.20.22.2.3.1" /> <code codeSystemName="LOINC" codeSystem= "2.16.840.1.058319.6.1" code="02994-1" displayName="Results" /> <title>Results< /title> <text> <table> <thead> [...] </td> < td> </td> </tr> <tr> <td>Urine-Specific [place]</td> <td>1.020 </td> <td>1.000-1.030</td> </tr> <tr> <td>Urine-WBC</td> <td>2-5/HPF </td> <td> </td> </tr> <tr> <td>Urobilinogen</td> <td>0.2 </td> <td>0.2-1.0</td> </tr> <tr> < colspan="10">XM (2) [facility] - 03/27/17 22:55</th> </tr> <tr> [...] </tr> <tr> <td> Surg Path</td> <td>Sent to [facility] </td> <td /> </tr> <tr> < [...] > <td>MCV</td> <td>73.4 fL</td> <td>80.0-97.0</td> </tr> <tr> <td>[place]%</td> <td>7.6 %</td> <td>0.0-12.0</td> </tr> <tr> <td>MPV</td> <td>11.1 fL</td> <td>7.4-10.0</td> </tr> <tr> <td>[place]%</td> <td>60.2 %</td> <td>37.0-80.0</td> </tr> <tr> <td>Plt</td> <td>222 K/uL</td> <td>150-400</td> </tr> <tr> <td>RBC</td> <td >4.67 M/uL</td> <td>3.60-5.00</td> </tr> <tr> < td>RDW</td> <td>22.7 %</td> <td>11.6-14.8</td> </tr > <tr> <td>WBC</td> <td>7.36 K/uL</td> <td> 5.00-10.00</td> </tr> <tr> <td>[place]</td> <td> 4.43 K/uL</td> <td>2.00-6.90</td> </tr> <tr> <td >[place]</td> <td>0.6 K/uL</td> <td>0.0-0.9</td> </tr> <tr> <td>[place]</td> <td>0.1 [...] GROWTH</td> <td>. </td> <td>NRG</td> </tr> <tr> < colspan="10">[facility] Sensitivity Panel - 01/29/18 16:37</th> </tr> [...] 15:50</th> </tr> <tr> <td>Bacterial urine culture</td> <td> [id number] </td> <td>NRG</td> </tr> <tr> <td> COLONY COUNT</td> <td>>100,000/ML </td> <td>NRG</td> </tr> <tr> <td>FTX;REPORTABLE</td> <td> SUSCEPTIBILITY REPORTED 03-21-2018,1005 </td> <td>NRG</td> </tr > <tr> <th colspan="10">[facility] Sensitivity Panel - 03/19/18 15:50</ th> [...] 05/24/18 15:18</th> </tr> <tr> <td>Bacterial urine culture</td> <td>[id number] </td> <td>NRG</td> </ tr> <tr> <td>COLONY COUNT</td> [...] </text> <entry> <organizer moodCode="EVN" classCode="BATTERY"> < templateId root="2.16.840.1.890708.10.20.22.4.1" /> <id nullFlavor="NA" /> <code codeSystem="local" code="UA" displayName="URINALYSIS, ROUTINE" /> <statusCode code="completed" /> <component> <observation moodCode="EVN" classCode="OBS"> <templateId root= "06.27.840.1.537249.10.20.22.4.2" /> <id nullFlavor="NA" /> < code codeSystem="local" code="LEUESU" displayName="UA LEUKOCYTE ESTERASE DIPSTICK" /> <statusCode code="completed" /> <effectiveTime value="461049306076" /> <value unit="" xsi:type="PQ" value="2+" /> <interpretationCode codeSystem="local" code="*" /> < referenceRange> <observationRange> <text>NEGATIVE</text > </observationRange> </referenceRange> </observation > </component> <component> <observation moodCode="EVN" classCode="OBS"> <templateId root="840.1.825333.10..4.2" /> <id nullFlavor="NA" /> <code codeSystem="local" code="NITRIU" displayName="UA NITRITE DIPSTICK" /> <statusCode code="completed" /> <effectiveTime value="277559087410" /> <value unit="" xsi:type= "PQ" value="POSITIVE" /> <interpretationCode codeSystem="local" code="* " /> <referenceRange> <observationRange> <text> NEGATIVE</text> </observationRange> </referenceRange> </observation> </component> <component> <observation moodCode ="EVN" classCode="OBS"> <templateId root= "06.27.840.1.863277.10.20.22.4.2" /> <id nullFlavor="NA" /> < code codeSystem="local" code="PROTEIU" displayName="UA PROTEIN DIPSTICK" /> <statusCode code="completed" /> <effectiveTime value= "" /> <value unit="" xsi:type="PQ" value="1+" /> < interpretationCode codeSystem="local" code="*" /> <referenceRange> <observationRange> <text>NEGATIVE</text> </ observationRange> </referenceRange> </observation> </ component> <component> <observation moodCode="EVN" classCode="OBS"> <templateId root="06.27.840.1.758407.10...4.2" /> <id nullFlavor="NA" /> <code codeSystem="local" code="DGLUU" displayName= "UA GLUCOSE DIPSTICK" /> <statusCode code="completed" /> < effectiveTime value="" /> <value unit="" xsi:type="PQ" value="NEGATIVE" /> <referenceRange> <observationRange> <text>NEGATIVE</text> </observationRange> </ referenceRange> </observation> </component> <component> <observation moodCode="EVN" classCode="OBS"> <templateId root= "16.840.1.393454.10.20.22.4.2" /> <id nullFlavor="NA" /> < code codeSystem="local" code="KETONU" displayName="UA KETONE DIPSTICK" /> <statusCode code="completed" /> <effectiveTime value="677090373310 " /> <value unit="" xsi:type="PQ" value="NEGATIVE" /> < referenceRange> <observationRange> <text>NEGATIVE</text > </observationRange> </referenceRange> </observation > </component> <component> <observation moodCode="EVN" classCode="OBS"> <templateId root="06.27.840.1.580279.02.28.22.4.2" /> <id nullFlavor="NA" /> <code codeSystem="local" code="UROBILU " displayName="UA UROBILINOGEN DIPSTICK" /> <statusCode code="completed " /> <effectiveTime value="" /> <value unit="" xsi :type="PQ" value="NORMAL" /> <referenceRange> < observationRange> <text>NORMAL</text> </observationRange > </referenceRange> </observation> </component> < component> <observation moodCode="EVN" classCode="OBS"> < templateId root="216.840.1.513559.02.28.22.4.2" /> <id nullFlavor="NA " /> <code codeSystem="local" code="BILU" displayName="UA BILIRUBIN DIPSTICK" /> <statusCode code="completed" /> <effectiveTime value="" /> <value unit="" xsi:type="PQ" value="NEGATIVE" / > <referenceRange> <observationRange> <text> NEGATIVE</text> </observationRange> </referenceRange> </observation> </component> <component> <observation moodCode ="EVN" classCode="OBS"> <templateId root= "216.840.1.885460.02.28.22.4.2" /> <id nullFlavor="NA" /> < code codeSystem="local" code="NOLVIA" displayName="UA BLOOD DIPSTICK" /> < statusCode code="completed" /> <effectiveTime value="" /> <value unit="" xsi:type="PQ" value="TRACE" /> < interpretationCode codeSystem="local" code="*" /> <referenceRange> <observationRange> <text>NEGATIVE</text> </ observationRange> </referenceRange> </observation> </ component> <component> <observation moodCode="EVN" classCode="OBS"> <templateId root="216.840.1.145810.10.22.4.2" /> <id nullFlavor="NA" /> <code codeSystem="local" code="SPGRU" displayName= "UA SPECIFIC GRAVITY" /> <statusCode code="completed" /> < effectiveTime value="937735715832" /> <value unit="" xsi:type="PQ" value="1.015" /> <referenceRange> <observationRange> <text>1.015-1.025</text> </observationRange> </ referenceRange> </observation> </component> <component> <observation moodCode="EVN" classCode="OBS"> <templateId root= "16.840.1.439134...4.2" /> <id nullFlavor="NA" /> < code codeSystem="local" code="DIETER" displayName="UR PH" /> <statusCode code="completed" /> <effectiveTime value="832850275774" /> < value unit="" xsi:type="PQ" value="6.0" /> <referenceRange> <observationRange> <text>5.0-7.0</text> </ observationRange> </referenceRange> </observation> </ component> <component> <observation moodCode="EVN" classCode="OBS"> <templateId root="16.840.1.822681.10..22.4.2" /> <id nullFlavor="NA" /> <code codeSystem="local" code="MB" displayName= "Microbiology" /> <statusCode code="completed" /> < effectiveTime value="703926637736" /> <value unit="" xsi:type="PQ" value="" /> <referenceRange> <observationRange> <text /> </observationRange> </referenceRange> </ observation> </component> </organizer> </entry> <entry> <organizer moodCode="EVN" classCode="BATTERY"> <templateId root= "216.840.1.540419.10..22.4.1" /> <id nullFlavor="NA" /> <code codeSystem="local" code="UAMICRO" displayName="UA MICROSCOPIC" /> < statusCode code="completed" /> <component> <observation moodCode= "EVN" classCode="OBS"> <templateId root="216.840.1.470760.10...4.2 " /> <id nullFlavor="NA" /> <code codeSystem="local" code= "EPIU" displayName="UA EPITHELIAL CELLS" /> <statusCode code="completed " /> <effectiveTime value="231088523700" /> <value unit="epi/ hpf" xsi:type="PQ" value="2+" /> <interpretationCode codeSystem="local " code="*" /> <referenceRange> <observationRange> <text>0 - 1+</text> </observationRange> </referenceRange > </observation> </component> <component> <observation moodCode="EVN" classCode="OBS"> <templateId root= "216.840.1.977891...4.2" /> <id nullFlavor="NA" /> < code codeSystem="local" code="RBCU" displayName="UA RBC" /> < statusCode code="completed" /> <effectiveTime value="057829726435" /> <value unit="rbc/hpf" xsi:type="PQ" value="0" /> < referenceRange> <observationRange> <text>0 - 3</text> </observationRange> </referenceRange> </observation> </component> <component> <observation moodCode="EVN" classCode= "OBS"> <templateId root="216.840.1.804468.10..22.4.2" /> < id nullFlavor="NA" /> <code codeSystem="local" code="UAVOL" displayName ="UA VOLUME FOR EXAM" /> <statusCode code="completed" /> < effectiveTime value="" /> <value unit="mL" xsi:type="PQ" value="12.0" /> <referenceRange> <observationRange> <text>(12mL STD)</text> </observationRange> </ referenceRange> </observation> </component> <component> <observation moodCode="EVN" classCode="OBS"> <templateId root= "216.840.1.946852.10..4.2" /> <id nullFlavor="NA" /> < code codeSystem="local" code="WBCU" displayName="UA WBC" /> < statusCode code="completed" /> <effectiveTime value="" /> <value unit="wbc/hpf" xsi:type="PQ" value="20-50" /> < interpretationCode codeSystem="local" code="*" /> <referenceRange> <observationRange> <text>0 - 5</text> </ observationRange> </referenceRange> </observation> </ component> <component> <observation moodCode="EVN" classCode="OBS"> <templateId root="16.840.1.729832.10..22.4.2" /> <id nullFlavor="NA" /> <code codeSystem="local" code="WBCCLUMPS" displayName="WBC CLUMPS" /> <statusCode code="completed" /> < effectiveTime value="" /> <value unit="" xsi:type="PQ" value="PRESENT" /> <interpretationCode codeSystem="local" code="*" /> <referenceRange> <observationRange> <text> NEGATIVE</text> </observationRange> </referenceRange> </observation> </component> </organizer> </entry> <entry> < organizer moodCode="EVN" classCode="BATTERY"> <templateId root= "16.840.1.101084.10..22.4.1" /> <id nullFlavor="NA" /> <code codeSystem="local" code="PREGU" displayName="UR TEST" /> < statusCode code="completed" /> <component> <observation moodCode= "EVN" classCode="OBS"> <templateId root="16.840.1.930609.10...4.2 " /> <id nullFlavor="NA" /> <code codeSystem="local" code= "PREGU" displayName="UR TEST" /> <statusCode code="completed " /> <effectiveTime value="376938306974" /> <value unit="" xsi :type="PQ" value="NEGATIVE" /> <referenceRange> < observationRange> <text>NEGATIVE</text> </ observationRange> </referenceRange> </observation> </ component> <component> <observation moodCode="EVN" classCode="OBS"> <templateId root="06.27.840.1.956572.10..22.4.2" /> <id nullFlavor="NA" /> <code codeSystem="local" code="MB" displayName= "Microbiology" /> <statusCode code="completed" /> < effectiveTime value="913062765026" /> <value unit="" xsi:type="PQ" value="" /> <referenceRange> <observationRange> <text /> </observationRange> </referenceRange> </ observation> </component> </organizer> </entry> <entry> <organizer moodCode="EVN" classCode="BATTERY"> <templateId root= "2.16.840.1.679306.10.20.22.4.1" /> <id nullFlavor="NA" /> <code codeSystem="local" code="PREGU" displayName="UR TEST" /> < statusCode code="completed" /> <component> <observation moodCode= "EVN" classCode="OBS"> <templateId root="2.16.840.1.202646.10.20.22.4.2 " /> <id nullFlavor="NA" /> <code codeSystem="local" code= "PREGU" displayName="UR TEST" /> <statusCode code="completed " /> <effectiveTime value="834140869874" /> <value xsi:type= "ST" value="<pre><b>UR TEST</b> NEGATIVE</pre>" /> < referenceRange> <observationRange> <text>NEGATIVE</text > </observationRange> </referenceRange> </observation > </component> <component> <observation moodCode="EVN" classCode="OBS"> <templateId root="2.16.840.1.435775.10..22.4.2" /> <id nullFlavor="NA" /> <code codeSystem="local" code="MB" displayName="Microbiology" /> <statusCode code="completed" /> <effectiveTime value="328256601422" /> <value xsi:type="ST" value="<pre ><b>UR TEST</b> NEGATIVE</pre>" /> <referenceRange> <observationRange> <text /> </observationRange> </referenceRange> </observation> </component> </organizer> </entry> <entry> <organizer moodCode="EVN" classCode="BATTERY"> < templateId root="06.27.840.1.153319.10..4.1" /> <id nullFlavor="NA" /> <code codeSystem="local" code="UA" displayName="URINALYSIS, ROUTINE" /> <statusCode code="completed" /> <component> <observation moodCode="EVN" classCode="OBS"> <templateId root= "06.27.840.1.267976.02.28.22.4.2" /> <id nullFlavor="NA" /> < code codeSystem="local" code="LEUESU" displayName="UA LEUKOCYTE ESTERASE DIPSTICK" /> <statusCode code="completed" /> <effectiveTime value="889555418768" /> <value unit="" xsi:type="PQ" value="TRACE" /> <referenceRange> <observationRange> <text> NEGATIVE</text> </observationRange> </referenceRange> </observation> </component> <component> <observation moodCode ="EVN" classCode="OBS"> <templateId root= "06.27.840.1.976906.02.28.224.2" /> <id nullFlavor="NA" /> < code codeSystem="local" code="NITRIU" displayName="UA NITRITE DIPSTICK" /> <statusCode code="completed" /> <effectiveTime value="645211640381 " /> <value unit="" xsi:type="PQ" value="NEGATIVE" /> < referenceRange> <observationRange> <text>NEGATIVE</text > </observationRange> </referenceRange> </observation > </component> <component> <observation moodCode="EVN" classCode="OBS"> <templateId root="06.27.840.1.776834.02.28.22.4.2" /> <id nullFlavor="NA" /> <code codeSystem="local" code="PROTEIU " displayName="UA PROTEIN DIPSTICK" /> <statusCode code="completed" /> <effectiveTime value="858110429606" /> <value unit="" xsi: type="PQ" value="2+" /> <interpretationCode codeSystem="local" code="* " /> <referenceRange> <observationRange> <text> NEGATIVE</text> </observationRange> </referenceRange> </observation> </component> <component> <observation moodCode ="EVN" classCode="OBS"> <templateId root= "216.840.1.751277.10...4.2" /> <id nullFlavor="NA" /> < code codeSystem="local" code="DGLUU" displayName="UA GLUCOSE DIPSTICK" /> <statusCode code="completed" /> <effectiveTime value="434228877870 " /> <value unit="" xsi:type="PQ" value="NEGATIVE" /> < referenceRange> <observationRange> <text>NEGATIVE</text > </observationRange> </referenceRange> </observation > </component> <component> <observation moodCode="EVN" classCode="OBS"> <templateId root="2.16.840.1.218186.10...4.2" /> <id nullFlavor="NA" /> <code codeSystem="local" code="KETONU" displayName="UA KETONE DIPSTICK" /> <statusCode code="completed" /> <effectiveTime value="305215632380" /> <value unit="" xsi:type= "PQ" value="2+" /> <interpretationCode codeSystem="local" code="*" /> <referenceRange> <observationRange> <text> NEGATIVE</text> </observationRange> </referenceRange> </observation> </component> <component> <observation moodCode ="EVN" classCode="OBS"> <templateId root= "216.840.1.615025.10..4.2" /> <id nullFlavor="NA" /> < code codeSystem="local" code="UROBILU" displayName="UA UROBILINOGEN DIPSTICK" / > <statusCode code="completed" /> <effectiveTime value= "352311330656" /> <value unit="" xsi:type="PQ" value="2+" /> < referenceRange> <observationRange> <text>NORMAL</text> </observationRange> </referenceRange> </observation> </component> <component> <observation moodCode="EVN" classCode ="OBS"> <templateId root="16.840.1.895874...4.2" /> < id nullFlavor="NA" /> <code codeSystem="local" code="BILU" displayName= "UA BILIRUBIN DIPSTICK" /> <statusCode code="completed" /> < effectiveTime value="887833866576" /> <value unit="" xsi:type="PQ" value="1+" /> <interpretationCode codeSystem="local" code="*" /> <referenceRange> <observationRange> <text>NEGATIVE</ text> </observationRange> </referenceRange> </ observation> </component> <component> <observation moodCode= "EVN" classCode="OBS"> <templateId root="16.840.1.682580.10..22.4.2 " /> <id nullFlavor="NA" /> <code codeSystem="local" code="NOLVIA " displayName="UA BLOOD DIPSTICK" /> <statusCode code="completed" /> <effectiveTime value="299242731386" /> <value unit="" xsi:type= "PQ" value="TRACE" /> <interpretationCode codeSystem="local" code="*" / > <referenceRange> <observationRange> <text> NEGATIVE</text> </observationRange> </referenceRange> </observation> </component> <component> <observation moodCode ="EVN" classCode="OBS"> <templateId root= "16.840.1.236321.10.4.2" /> <id nullFlavor="NA" /> < code codeSystem="local" code="SPGRU" displayName="UA SPECIFIC GRAVITY" /> <statusCode code="completed" /> <effectiveTime value="610707660022 " /> <value unit="" xsi:type="PQ" value="1.015" /> < referenceRange> <observationRange> <text>1.015-1.025</ text> </observationRange> </referenceRange> </ observation> </component> <component> <observation moodCode= "EVN" classCode="OBS"> <templateId root="06.27.840.1.086086.02.28.22.4.2 " /> <id nullFlavor="NA" /> <code codeSystem="local" code="DIETER " displayName="UR PH" /> <statusCode code="completed" /> < effectiveTime value="017765473071" /> <value unit="" xsi:type="PQ" value="6.0" /> <referenceRange> <observationRange> <text>5.0-7.0</text> </observationRange> </ referenceRange> </observation> </component> <component> <observation moodCode="EVN" classCode="OBS"> <templateId root= "06.27.840.1.362051.1022.4.2" /> <id nullFlavor="NA" /> < code codeSystem="local" code="MB" displayName="Microbiology" /> < statusCode code="completed" /> <effectiveTime value="311557568930" /> <value unit="" xsi:type="PQ" value="" /> <referenceRange> <observationRange> <text /> </observationRange> </referenceRange> </observation> </component> </ organizer> </entry> <entry> <organizer moodCode="EVN" classCode="BATTERY"> <templateId root="216.840.1.083956.10..22.4.1" /> <id nullFlavor= "NA" /> <code codeSystem="local" code="UAMICRO" displayName="UA MICROSCOPIC " /> <statusCode code="completed" /> <component> <observation moodCode="EVN" classCode="OBS"> <templateId root= "216.840.1.751457...4.2" /> <id nullFlavor="NA" /> < code codeSystem="local" code="BACU" displayName="UA BACTERIA" /> < statusCode code="completed" /> <effectiveTime value="468112036338" /> <value unit="" xsi:type="PQ" value="2+" /> < interpretationCode codeSystem="local" code="*" /> <referenceRange> <observationRange> <text>NEGATIVE</text> </ observationRange> </referenceRange> </observation> </ component> <component> <observation moodCode="EVN" classCode="OBS"> <templateId root="216.840.1.094457.10..4.2" /> <id nullFlavor="NA" /> <code codeSystem="local" code="EPIU" displayName=" UA EPITHELIAL CELLS" /> <statusCode code="completed" /> < effectiveTime value="774189840037" /> <value unit="epi/hpf" xsi:type= "PQ" value="1+" /> <referenceRange> <observationRange> <text>0 - 1+</text> </observationRange> </ referenceRange> </observation> </component> <component> <observation moodCode="EVN" classCode="OBS"> <templateId root= "216.840.1.593409.10..4.2" /> <id nullFlavor="NA" /> < code codeSystem="local" code="MUCUSU" displayName="UA MUCUS" /> < statusCode code="completed" /> <effectiveTime value="963166865537" /> <value unit="" xsi:type="PQ" value="1+" /> <referenceRange> <observationRange> <text>NEG TO 1+</text> </ observationRange> </referenceRange> </observation> </ component> <component> <observation moodCode="EVN" classCode="OBS"> <templateId root="06.27.840.1.611169...4.2" /> <id nullFlavor="NA" /> <code codeSystem="local" code="RBCU" displayName=" UA RBC" /> <statusCode code="completed" /> <effectiveTime value="782653840433" /> <value unit="rbc/hpf" xsi:type="PQ" value="0-3 " /> <referenceRange> <observationRange> <text> 0 - 3</text> </observationRange> </referenceRange> </ observation> </component> <component> <observation moodCode= "EVN" classCode="OBS"> <templateId root="06.27.840.1.015881.10..4.2 " /> <id nullFlavor="NA" /> <code codeSystem="local" code= "UAVOL" displayName="UA VOLUME FOR EXAM" /> <statusCode code="completed " /> <effectiveTime value="978795636650" /> <value unit="mL" xsi:type="PQ" value="12.0" /> <referenceRange> < observationRange> <text>(12mL STD)</text> </ observationRange> </referenceRange> </observation> </ component> <component> <observation moodCode="EVN" classCode="OBS"> <templateId root="06.27.840.1.258674.02.28.22.4.2" /> <id nullFlavor="NA" /> <code codeSystem="local" code="WBCU" displayName=" UA WBC" /> <statusCode code="completed" /> <effectiveTime value="868090160234" /> <value unit="wbc/hpf" xsi:type="PQ" value="10- 20" /> <interpretationCode codeSystem="local" code="*" /> < referenceRange> <observationRange> <text>0 - 5</text> </observationRange> </referenceRange> </observation> </component> </organizer> </entry> <entry> <organizer moodCode="EVN " classCode="BATTERY"> <templateId root="06.27.840.1.884202.02.28.22.4.1" / > <id nullFlavor="NA" /> <code codeSystem="local" code="CBCD" displayName="CBC W/DIFF" /> <statusCode code="completed" /> <component > <observation moodCode="EVN" classCode="OBS"> <templateId root= "06.27.840.1.381685.02.28.22.4.2" /> <id nullFlavor="NA" /> < code codeSystem="local" code="CBCCOM" displayName="COMMENT" /> < statusCode code="completed" /> <effectiveTime value="913469297731" /> <value xsi:type="ST" value="<pre><b>CBC W/DIFF</b> 6.6[id number]..4NOTEDREVIEWED</pre>" /> <referenceRange> <observationRange> <text /> </observationRange> </referenceRange> </observation> </ component> <component> <observation moodCode="EVN" classCode="OBS"> <templateId root="2.16.840.1.705529.10.20.22.4.2" /> <id nullFlavor="NA" /> <code codeSystem="local" code="GR#" displayName= "GRANULOCYTE #" /> <statusCode code="completed" /> < effectiveTime value="796521254187" /> <value xsi:type="ST" value="<pre> <b>CBC W/DIFF</b> [id number]..4NOTEDREVIEWED</ pre>" /> <referenceRange> <observationRange> < text>2.0-9.0</text> </observationRange> </referenceRange> </observation> </component> <component> <observation moodCode="EVN" classCode="OBS"> <templateId root= "[id number]..22.4.2" /> <id nullFlavor="NA" /> < code codeSystem="local" code="GR%" displayName="GRANULOCYTE %" /> <statusCode code="completed" /> <effectiveTime value="[id number] " /> <value xsi:type="ST" value="<pre><b>CBC W/DIFF</b> [id number]</pre>" /> <interpretationCode codeSystem="local" code="*" /> <referenceRange> <observationRange> <text>50-75</text> </ observationRange> </referenceRange> </observation> </ component> <component> <observation moodCode="EVN" classCode="OBS"> <templateId root="[id number]...4.2" /> <id nullFlavor="NA" /> <code codeSystem="local" code="LY#" displayName= "LYMPHOCYTE #" /> <statusCode code="completed" /> < effectiveTime value="[id number]" /> <value xsi:type="ST" value="<pre> <b>CBC W/DIFF</b> 664.729.932.067.821.030.922.7975019517.90.4NOTEDREVIEWED</ pre>" /> <interpretationCode codeSystem="local" code="*" /> < referenceRange> <observationRange> <text>1.0-4.0</text> </observationRange> </referenceRange> </observation > </component> <component> <observation moodCode="EVN" classCode="OBS"> <templateId root="2.16.840.1.753903.10...4.2" /> <id nullFlavor="NA" /> <code codeSystem="local" code="LY% " displayName="LYMPHOCYTE %" /> <statusCode code="completed" /> <effectiveTime value="124964795687" /> <value xsi:type="ST" value="<pre><b>CBC W/DIFF</b> 6.729.932.067.821.030.922.4077359766.4NOTEDREVIEWED</pre>" /> <interpretationCode codeSystem="local" code="*" /> <referenceRange> <observationRange> <text>20-30</text> </ observationRange> </referenceRange> </observation> </ component> <component> <observation moodCode="EVN" classCode="OBS"> <templateId root="2.16.840.1.508660.10..4.2" /> <id nullFlavor="NA" /> <code codeSystem="local" code="MCH" displayName= "MEAN CELL HGB" /> <statusCode code="completed" /> < effectiveTime value="203943224851" /> <value xsi:type="ST" value="<pre> <b>CBC W/DIFF</b> 6.729.932.067.821.030.922.1763674158.4NOTEDREVIEWED</ pre>" /> <interpretationCode codeSystem="local" code="*" /> < referenceRange> <observationRange> <text>27.0-33.0</text > </observationRange> </referenceRange> </observation > </component> <component> <observation moodCode="EVN" classCode="OBS"> <templateId root="2.16.840.1.598843.10..4.2" /> <id nullFlavor="NA" /> <code codeSystem="local" code="MCHC" displayName="MEAN CELL HGB CONCENTRATION" /> <statusCode code= "completed" /> <effectiveTime value="794436348731" /> <value xsi:type="ST" value="<pre><b>CBC W/DIFF</b> 6..729.932.067.821.030.922.3167211693.4NOTEDREVIEWED</pre>" /> <interpretationCode codeSystem="local" code="*" /> <referenceRange> <observationRange> <text>32.0-37.0</text> </ observationRange> </referenceRange> </observation> </ component> <component> <observation moodCode="EVN" classCode="OBS"> <templateId root="2.16.840.1.070208.10..4.2" /> <id nullFlavor="NA" /> <code codeSystem="local" code="MCV" displayName= "MEAN CELL VOLUME" /> <statusCode code="completed" /> < effectiveTime value="997985103226" /> <value xsi:type="ST" value="<pre> <b>CBC W/DIFF</b> 6.729.932.067.821.030.922.3115136479.30.90.4NOTEDREVIEWED</ pre>" /> <interpretationCode codeSystem="local" code="*" /> < referenceRange> <observationRange> <text>80.0-100.0</ text> </observationRange> </referenceRange> </ observation> </component> <component> <observation moodCode= "EVN" classCode="OBS"> <templateId root="2.16.840.1.361386.10..4.2 " /> <id nullFlavor="NA" /> <code codeSystem="local" code="MO# " displayName="MONOCYTE #" /> <statusCode code="completed" /> <effectiveTime value="298009840221" /> <value xsi:type="ST" value="<pre ><b>CBC W/DIFF</b> 6.64729.932.067.821.030.922.0176556955.4NOTEDREVIEWED< /pre>" /> <referenceRange> <observationRange> < text>0.1-1.0</text> </observationRange> </referenceRange> </observation> </component> <component> <observation moodCode="EVN" classCode="OBS"> <templateId root= "2.16.840.1.291198.10..22.4.2" /> <id nullFlavor="NA" /> < code codeSystem="local" code="MO%" displayName="MONOCYTE %" /> <statusCode code="completed" /> <effectiveTime value="227123400929" /> <value xsi:type="ST" value="<pre><b>CBC W/DIFF</b> 6.64.729.932.067.821.030.922.8546958912..4NOTEDREVIEWED</pre>" /> <referenceRange> <observationRange> <text>4-6</text> </observationRange> </referenceRange> </observation> </component> <component> <observation moodCode="EVN" classCode= "OBS"> <templateId root="2.16.840.1.882392.10.20.22.4.2" /> < id nullFlavor="NA" /> <code codeSystem="local" code="OVAL" displayName= "OVALOCYTES" /> <statusCode code="completed" /> < effectiveTime value="864030976233" /> <value xsi:type="ST" value="<pre> <b>CBC W/DIFF</b> 6.64.729.932.067.821.030.922.6461031161.90.4NOTEDREVIEWED</ pre>" /> <referenceRange> <observationRange> < text /> </observationRange> </referenceRange> </ observation> </component> <component> <observation moodCode= "EVN" classCode="OBS"> <templateId root="2.16.840.1.272933.10..22.4.2 " /> <id nullFlavor="NA" /> <code codeSystem="local" code="RBC " displayName="RED BLOOD CELL" /> <statusCode code="completed" /> <effectiveTime value="716437549665" /> <value xsi:type="ST" value= "<pre><b>CBC W/DIFF</b> 6.64.729.932.067.821.030.922.1057686496..4NOTEDREVIEWED</pre>" /> <referenceRange> <observationRange> <text>4.00-6.00</ text> </observationRange> </referenceRange> </ observation> </component> <component> <observation moodCode= "EVN" classCode="OBS"> <templateId root="216.840.1.097124.10..22.4.2 " /> <id nullFlavor="NA" /> <code codeSystem="local" code="RDW " displayName="RED CELL DISTRIBUTION WIDTH" /> <statusCode code= "completed" /> <effectiveTime value="380785952936" /> <value xsi:type="ST" value="<pre><b>CBC W/DIFF</b> 6.64.729.932.067.821.030.922.8885258913..4NOTEDREVIEWED</pre>" /> <interpretationCode codeSystem="local" code="*" /> <referenceRange> <observationRange> <text>11.0-15.6</text> </ observationRange> </referenceRange> </observation> </ component> <component> <observation moodCode="EVN" classCode="OBS"> <templateId root="216.840.1.627269.10..22.4.2" /> <id nullFlavor="NA" /> <code codeSystem="local" code="WBC" displayName= "WHITE BLOOD CELL" /> <statusCode code="completed" /> < effectiveTime value="796054067182" /> <value xsi:type="ST" value="<pre> <b>CBC W/DIFF</b> 6.64.729.932.067.821.030.922.2184228912.4NOTEDREVIEWED</ pre>" /> <referenceRange> <observationRange> < text>5.0-10.0</text> </observationRange> </referenceRange> </observation> </component> <component> <observation moodCode="EVN" classCode="OBS"> <templateId root= "216.840.1.669909.10...4.2" /> <id nullFlavor="NA" /> < code codeSystem="local" code="HGBT" displayName="HEMOGLOBIN" /> < statusCode code="completed" /> <effectiveTime value="404554953259" /> <value xsi:type="ST" value="<pre><b>CBC W/DIFF</b> 6.64.729.932.067.821.030.922.2433083415.4NOTEDREVIEWED</pre>" /> <interpretationCode codeSystem="local" code="*" /> <referenceRange> <observationRange> <text>12.0-16.0</text> </ observationRange> </referenceRange> </observation> </ component> <component> <observation moodCode="EVN" classCode="OBS"> <templateId root="216.840.1.859680.10..22.4.2" /> <id nullFlavor="NA" /> <code codeSystem="local" code="HCTT" displayName= "HEMATOCRIT" /> <statusCode code="completed" /> < effectiveTime value="726661010131" /> <value xsi:type="ST" value="<pre> <b>CBC W/DIFF</b> 6.64.729.932.067.821.030.922.4732157932..4NOTEDREVIEWED</ pre>" /> <interpretationCode codeSystem="local" code="*" /> < referenceRange> <observationRange> <text>37.0-47.0</text > </observationRange> </referenceRange> </observation > </component> <component> <observation moodCode="EVN" classCode="OBS"> <templateId root="2.16.840.1.053185.10..22.4.2" /> <id nullFlavor="NA" /> <code codeSystem="local" code="PLT" displayName="PLATELET COUNT" /> <statusCode code="completed" /> <effectiveTime value="889422634436" /> <value xsi:type="ST" value="< pre><b>CBC W/DIFF</b> 6.64.729.932.067.821.030.922.4224931034..4NOTEDREVIEWED</pre>" /> <referenceRange> <observationRange> <text>150-450</text > </observationRange> </referenceRange> </observation > </component> <component> <observation moodCode="EVN" classCode="OBS"> <templateId root="216.840.1.180721.10..22.4.2" /> <id nullFlavor="NA" /> <code codeSystem="local" code="MB" displayName="Microbiology" /> <statusCode code="completed" /> <effectiveTime value="613518769014" /> <value xsi:type="ST" value="<pre ><b>CBC W/DIFF</b> 6.64.729.932.067.821.030.922.6241252608.30.90.4NOTEDREVIEWED< /pre>" /> <referenceRange> <observationRange> < text /> </observationRange> </referenceRange> </ observation> </component> </organizer> </entry> <entry> <organizer moodCode="EVN" classCode="BATTERY"> <templateId root= "216.840.1.093462.10.20.22.4.1" /> <id nullFlavor="NA" /> <code codeSystem="local" code="METAB" displayName="METABOLIC PANEL, BASIC" /> < statusCode code="completed" /> <component> <observation moodCode= "EVN" classCode="OBS"> <templateId root="16.840.1.725696.10.20.22.4.2 " /> <id nullFlavor="NA" /> <code codeSystem="local" code="K" displayName="POTASSIUM" /> <statusCode code="completed" /> < effectiveTime value="182249254809" /> <value xsi:type="ST" value="<pre> <b>METABOLIC PANEL, BASIC</b> 1362.802055629523.8> 60> 609.5</pre>" /> <interpretationCode codeSystem="local" code="*" /> <referenceRange> <observationRange> <text>3.5-5.3</text> </ observationRange> </referenceRange> </observation> </ component> <component> <observation moodCode="EVN" classCode="OBS"> <templateId root="16.840.1.633141.10.20.22.4.2" /> <id nullFlavor="NA" /> <code codeSystem="local" code="eGFR" displayName= "EST GFR (MDRD)" /> <statusCode code="completed" /> < effectiveTime value="642776893105" /> <value xsi:type="ST" value="<pre> <b>METABOLIC PANEL, BASIC</b> 1362.612917412213.8> 60> 609.5</pre>" /> <referenceRange> <observationRange> <text>> 59</text > </observationRange> </referenceRange> </observation > </component> <component> <observation moodCode="EVN" classCode="OBS"> <templateId root="2.16.840.1.928194.10..22.4.2" /> <id nullFlavor="NA" /> <code codeSystem="local" code="GAP" displayName="ANION GAP" /> <statusCode code="completed" /> < effectiveTime value="926447200997" /> <value xsi:type="ST" value="<pre> <b>METABOLIC PANEL, BASIC</b> 1362.897023369412.8> 60> 609.5</pre>" /> <referenceRange> <observationRange> <text>5-15</text> </observationRange> </referenceRange> </observation> </component> <component> <observation moodCode="EVN" classCode= "OBS"> <templateId root="2.16.840.1.490228.10..22.4.2" /> < id nullFlavor="NA" /> <code codeSystem="local" code="eCrCl" displayName ="EST CrCl (CG)" /> <statusCode code="completed" /> < effectiveTime value="773041927560" /> <value xsi:type="ST" value="<pre> <b>METABOLIC PANEL, BASIC</b> 1362.998845099544.8> 60> 609.5</pre>" /> <referenceRange> <observationRange> <text>> 59</text > </observationRange> </referenceRange> </observation > </component> <component> <observation moodCode="EVN" classCode="OBS"> <templateId root="2.16.840.1.885738.10..22.4.2" /> <id nullFlavor="NA" /> <code codeSystem="local" code="GLU" displayName="GLUCOSE" /> <statusCode code="completed" /> < effectiveTime value="766262945918" /> <value xsi:type="ST" value="<pre> <b>METABOLIC PANEL, BASIC</b> 1362.627238783789.8> 60> 609.5</pre>" /> <referenceRange> <observationRange> <text>70-99</text> </observationRange> </referenceRange> </observation> </component> <component> <observation moodCode="EVN" classCode ="OBS"> <templateId root="216.840.1.858716.10...4.2" /> < id nullFlavor="NA" /> <code codeSystem="local" code="CA" displayName= "CALCIUM" /> <statusCode code="completed" /> <effectiveTime value="063559373123" /> <value xsi:type="ST" value="<pre><b>METABOLIC PANEL, BASIC</b> 1362.128140417453.8> 60> 609.5</pre>" /> < referenceRange> <observationRange> <text>8.5-10.1</text > </observationRange> </referenceRange> </observation > </component> <component> <observation moodCode="EVN" classCode="OBS"> <templateId root="2.16.840.1.598385.10..22.4.2" /> <id nullFlavor="NA" /> <code codeSystem="local" code="BUN" displayName="BLOOD UREA NITROGEN" /> <statusCode code="completed" /> <effectiveTime value="220511678168" /> <value xsi:type="ST" value="<pre><b>METABOLIC PANEL, BASIC</b> 1362.431025140829.8> 60> 609.5</pre>" /> <referenceRange> <observationRange> <text>7- 20</text> </observationRange> </referenceRange> </ observation> </component> <component> <observation moodCode= "EVN" classCode="OBS"> <templateId root="16.840.1.723575...4.2 " /> <id nullFlavor="NA" /> <code codeSystem="local" code= "CREAT" displayName="CREATININE" /> <statusCode code="completed" /> <effectiveTime value="324278970526" /> <value xsi:type="ST" value="<pre><b>METABOLIC PANEL, BASIC</b> 1362.302602874817.8> 60> 609.5</pre>" /> <referenceRange> <observationRange> <text> 0.6-1.0</text> </observationRange> </referenceRange> </observation> </component> <component> <observation moodCode= "EVN" classCode="OBS"> <templateId root="16.840.1.027682.10..22.4.2 " /> <id nullFlavor="NA" /> <code codeSystem="local" code="NA " displayName="SODIUM" /> <statusCode code="completed" /> < effectiveTime value="305672313742" /> <value xsi:type="ST" value="<pre> <b>METABOLIC PANEL, BASIC</b> 1362.968497057419.8> 60> 609.5</pre>" /> <referenceRange> <observationRange> <text>135-148</text > </observationRange> </referenceRange> </observation > </component> <component> <observation moodCode="EVN" classCode="OBS"> <templateId root="2.16.840.1.599665.10.20.22.4.2" /> <id nullFlavor="NA" /> <code codeSystem="local" code="CL" displayName="CHLORIDE" /> <statusCode code="completed" /> < effectiveTime value="164385573796" /> <value xsi:type="ST" value="<pre> <b>METABOLIC PANEL, BASIC</b> 1362.325346755232.8> 60> 609.5</pre>" /> <interpretationCode codeSystem="local" code="*" /> <referenceRange> <observationRange> <text>98-110</text> </ observationRange> </referenceRange> </observation> </ component> <component> <observation moodCode="EVN" classCode="OBS"> <templateId root="2.16.840.1.735026.10.20.22.4.2" /> <id nullFlavor="NA" /> <code codeSystem="local" code="CO2" displayName= "CARBON DIOXIDE" /> <statusCode code="completed" /> < effectiveTime value="299520381770" /> <value xsi:type="ST" value="<pre> <b>METABOLIC PANEL, BASIC</b> 1362.624218107390.8> 60> 609.5</pre>" /> <referenceRange> <observationRange> <text>21-32</text> </observationRange> </referenceRange> </observation> </component> <component> <observation moodCode="EVN" classCode ="OBS"> <templateId root="216.840.1.025847.10..22.4.2" /> < id nullFlavor="NA" /> <code codeSystem="local" code="MB" displayName= "Microbiology" /> <statusCode code="completed" /> < effectiveTime value="259511388471" /> <value xsi:type="ST" value="<pre> <b>METABOLIC PANEL, BASIC</b> 1362.105106188420.8> 60> 609.5</pre>" /> <referenceRange> <observationRange> <text /> </observationRange> </referenceRange> </observation> </ component> </organizer> </entry> <entry> <organizer moodCode="EVN" classCode="BATTERY"> <templateId root="216.840.1.625816.10..22.4.1" /> <id nullFlavor="NA" /> <code codeSystem="local" code="UA" displayName= "URINALYSIS, ROUTINE" /> <statusCode code="completed" /> <component> <observation moodCode="EVN" classCode="OBS"> <templateId root= "2.16.840.1.553924.10.20.22.4.2" /> <id nullFlavor="NA" /> < code codeSystem="local" code="LEUESU" displayName="UA LEUKOCYTE ESTERASE DIPSTICK" /> <statusCode code="completed" /> <effectiveTime value="515760430808" /> <value unit="" xsi:type="PQ" value="NEGATIVE" / > <referenceRange> <observationRange> <text> NEGATIVE</text> </observationRange> </referenceRange> </observation> </component> <component> <observation moodCode ="EVN" classCode="OBS"> <templateId root= "216.840.1.241738.10.22.4.2" /> <id nullFlavor="NA" /> < code codeSystem="local" code="NITRIU" displayName="UA NITRITE DIPSTICK" /> <statusCode code="completed" /> <effectiveTime value="663298002534 " /> <value unit="" xsi:type="PQ" value="NEGATIVE" /> < referenceRange> <observationRange> <text>NEGATIVE</text > </observationRange> </referenceRange> </observation > </component> <component> <observation moodCode="EVN" classCode="OBS"> <templateId root="216.840.1.407300.10..4.2" /> <id nullFlavor="NA" /> <code codeSystem="local" code="PROTEIU " displayName="UA PROTEIN DIPSTICK" /> <statusCode code="completed" /> <effectiveTime value="485743587891" /> <value unit="" xsi: type="PQ" value="NEGATIVE" /> <referenceRange> < observationRange> <text>NEGATIVE</text> </ observationRange> </referenceRange> </observation> </ component> <component> <observation moodCode="EVN" classCode="OBS"> <templateId root="16.840.1.944761...4.2" /> <id nullFlavor="NA" /> <code codeSystem="local" code="DGLUU" displayName= "UA GLUCOSE DIPSTICK" /> <statusCode code="completed" /> < effectiveTime value="302357107590" /> <value unit="" xsi:type="PQ" value="NEGATIVE" /> <referenceRange> <observationRange> <text>NEGATIVE</text> </observationRange> </ referenceRange> </observation> </component> <component> <observation moodCode="EVN" classCode="OBS"> <templateId root= "216.840.1.693266.10.22.4.2" /> <id nullFlavor="NA" /> < code codeSystem="local" code="KETONU" displayName="UA KETONE DIPSTICK" /> <statusCode code="completed" /> <effectiveTime value="776843891528 " /> <value unit="" xsi:type="PQ" value="2+" /> < interpretationCode codeSystem="local" code="*" /> <referenceRange> <observationRange> <text>NEGATIVE</text> </ observationRange> </referenceRange> </observation> </ component> <component> <observation moodCode="EVN" classCode="OBS"> <templateId root="06.27.840.1.553036.02.28.22.4.2" /> <id nullFlavor="NA" /> <code codeSystem="local" code="UROBILU" displayName= "UA UROBILINOGEN DIPSTICK" /> <statusCode code="completed" /> <effectiveTime value="877211276844" /> <value unit="" xsi:type="PQ" value="NORMAL" /> <referenceRange> <observationRange> <text>NORMAL</text> </observationRange> </ referenceRange> </observation> </component> <component> <observation moodCode="EVN" classCode="OBS"> <templateId root= "216.840.1.734218.10..22.4.2" /> <id nullFlavor="NA" /> < code codeSystem="local" code="BILU" displayName="UA BILIRUBIN DIPSTICK" /> <statusCode code="completed" /> <effectiveTime value="536205938882 " /> <value unit="" xsi:type="PQ" value="1+" /> < interpretationCode codeSystem="local" code="*" /> <referenceRange> <observationRange> <text>NEGATIVE</text> </ observationRange> </referenceRange> </observation> </ component> <component> <observation moodCode="EVN" classCode="OBS"> <templateId root="216.840.1.461370.1022.4.2" /> <id nullFlavor="NA" /> <code codeSystem="local" code="NOLVIA" displayName="UA BLOOD DIPSTICK" /> <statusCode code="completed" /> < effectiveTime value="202042255906" /> <value unit="" xsi:type="PQ" value="TRACE" /> <interpretationCode codeSystem="local" code="*" /> <referenceRange> <observationRange> <text> NEGATIVE</text> </observationRange> </referenceRange> </observation> </component> <component> <observation moodCode ="EVN" classCode="OBS"> <templateId root= "06.27.840.1.743073.02.28.22.4.2" /> <id nullFlavor="NA" /> < code codeSystem="local" code="SPGRU" displayName="UA SPECIFIC GRAVITY" /> <statusCode code="completed" /> <effectiveTime value="333956199985 " /> <value unit="" xsi:type="PQ" value="1.015" /> < referenceRange> <observationRange> <text>1.015-1.025</ text> </observationRange> </referenceRange> </ observation> </component> <component> <observation moodCode= "EVN" classCode="OBS"> <templateId root="16.840.1.933557..2022.4.2 " /> <id nullFlavor="NA" /> <code codeSystem="local" code="DIETER " displayName="UR PH" /> <statusCode code="completed" /> < effectiveTime value="179907752896" /> <value unit="" xsi:type="PQ" value="6.0" /> <referenceRange> <observationRange> <text>5.0-7.0</text> </observationRange> </ referenceRange> </observation> </component> <component> <observation moodCode="EVN" classCode="OBS"> <templateId root= "840.1.418772.10..4.2" /> <id nullFlavor="NA" /> < code codeSystem="local" code="MB" displayName="Microbiology" /> < statusCode code="completed" /> <effectiveTime value="065864810403" /> <value unit="" xsi:type="PQ" value="" /> <referenceRange> <observationRange> <text /> </observationRange> </referenceRange> </observation> </component> </ organizer> </entry> <entry> <organizer moodCode="EVN" classCode="BATTERY"> <templateId root="06.27.840.1.002117.02.28.22.4.1" /> <id nullFlavor= "NA" /> <code codeSystem="local" code="UAMICRO" displayName="UA MICROSCOPIC " /> <statusCode code="completed" /> <component> <observation moodCode="EVN" classCode="OBS"> <templateId root= "06.27.840.1.265109.02.28.22.4.2" /> <id nullFlavor="NA" /> < code codeSystem="local" code="BACU" displayName="UA BACTERIA" /> < statusCode code="completed" /> <effectiveTime value="219395742473" /> <value unit="" xsi:type="PQ" value="2+" /> < interpretationCode codeSystem="local" code="*" /> <referenceRange> <observationRange> <text>NEGATIVE</text> </ observationRange> </referenceRange> </observation> </ component> <component> <observation moodCode="EVN" classCode="OBS"> <templateId root="16.840.1.363067.02.28.22.4.2" /> <id nullFlavor="NA" /> <code codeSystem="local" code="EPIU" displayName=" UA EPITHELIAL CELLS" /> <statusCode code="completed" /> < effectiveTime value="463632033754" /> <value unit="epi/hpf" xsi:type= "PQ" value="2+" /> <interpretationCode codeSystem="local" code="*" /> <referenceRange> <observationRange> <text>0 - 1 +</text> </observationRange> </referenceRange> </ observation> </component> <component> <observation moodCode= "EVN" classCode="OBS"> <templateId root="16.840.1.938054.02.28.22.4.2 " /> <id nullFlavor="NA" /> <code codeSystem="local" code= "MUCUSU" displayName="UA MUCUS" /> <statusCode code="completed" /> <effectiveTime value="981317893069" /> <value unit="" xsi:type= "PQ" value="3+" /> <interpretationCode codeSystem="local" code="*" /> <referenceRange> <observationRange> <text>NEG TO 1+</text> </observationRange> </referenceRange> </ observation> </component> <component> <observation moodCode= "EVN" classCode="OBS"> <templateId root="16.840.1.391727.22.4.2 " /> <id nullFlavor="NA" /> <code codeSystem="local" code= "RBCU" displayName="UA RBC" /> <statusCode code="completed" /> <effectiveTime value="079912573000" /> <value unit="rbc/hpf" xsi:type ="PQ" value="0-3" /> <referenceRange> <observationRange> <text>0 - 3</text> </observationRange> </ referenceRange> </observation> </component> <component> <observation moodCode="EVN" classCode="OBS"> <templateId root= "2.16.840.1.570377.02.28.22.4.2" /> <id nullFlavor="NA" /> < code codeSystem="local" code="UAVOL" displayName="UA VOLUME FOR EXAM" /> <statusCode code="completed" /> <effectiveTime value="084966487797" /> <value unit="mL" xsi:type="PQ" value="12.0" /> < referenceRange> <observationRange> <text>(12mL STD)</ text> </observationRange> </referenceRange> </ observation> </component> <component> <observation moodCode= "EVN" classCode="OBS"> <templateId root="2.16.840.1.617489.02.28.22.4.2 " /> <id nullFlavor="NA" /> <code codeSystem="local" code= "WBCU" displayName="UA WBC" /> <statusCode code="completed" /> <effectiveTime value="601547054916" /> <value unit="wbc/hpf" xsi:type ="PQ" value="0-1" /> <referenceRange> <observationRange> <text>0 - 5</text> </observationRange> </ referenceRange> </observation> </component> </organizer> </entry > <entry> <organizer moodCode="EVN" classCode="BATTERY"> <templateId root="2.16.840.1.942735.10.20.22.4.1" /> <id nullFlavor="NA" /> <code codeSystem="local" code="PREGU" displayName="UR TEST" /> < statusCode code="completed" /> <component> <observation moodCode= "EVN" classCode="OBS"> <templateId root="2.16.840.1.783976.10.20.22.4.2 " /> <id nullFlavor="NA" /> <code codeSystem="local" code= "PREGU" displayName="UR TEST" /> <statusCode code="completed " /> <effectiveTime value="[id number]" /> <value xsi:type= "ST" value="<pre><b>UR TEST</b> NEGATIVE</pre>" /> < referenceRange> <observationRange> <text>NEGATIVE</text > </observationRange> </referenceRange> </observation > </component> <component> <observation moodCode="EVN" classCode="OBS"> <templateId root="[id number]" /> <id nullFlavor="NA" /> <code codeSystem="local" code="MB" displayName="Microbiology" /> <statusCode code="completed" /> <effectiveTime value="[id number]" /> <value xsi:type="ST" value="<pre ><b>UR TEST</b> NEGATIVE</pre>" /> <referenceRange> <observationRange> <text /> </observationRange> </referenceRange> </observation> </component> </organizer> </entry> <entry> <organizer moodCode="EVN" classCode="BATTERY"> < templateId root="[id number]..[id number]" /> <id nullFlavor="NA" /> <code codeSystem="local" code="CBCD" displayName="CBC W/DIFF" /> < statusCode code="completed" /> <component> <observation moodCode= "EVN" classCode="OBS"> <templateId root="840.1.837750.02.28.224.2 " /> <id nullFlavor="NA" /> <code codeSystem="local" code="BA# " displayName="BASOPHIL #" /> <statusCode code="completed" /> <effectiveTime value="086615423295" /> <value unit="k/cumm" xsi:type= "PQ" value="0.0" /> <referenceRange> <observationRange> <text>0.0-0.2</text> </observationRange> </ referenceRange> </observation> </component> <component> <observation moodCode="EVN" classCode="OBS"> <templateId root= "06.27.840.1.223840.02.28.22.4.2" /> <id nullFlavor="NA" /> < code codeSystem="local" code="BA%" displayName="BASOPHIL %" /> <statusCode code="completed" /> <effectiveTime value="112250032936" /> <value unit="%" xsi:type="PQ" value="1" /> < referenceRange> <observationRange> <text>0-1</text> </observationRange> </referenceRange> </observation> </component> <component> <observation moodCode="EVN" classCode= "OBS"> <templateId root="06.27.840.1.156012.02.28.22.4.2" /> < id nullFlavor="NA" /> <code codeSystem="local" code="EO#" displayName= "EOSINOPHIL #" /> <statusCode code="completed" /> < effectiveTime value="374856835292" /> <value unit="k/cumm" xsi:type="PQ " value="0.1" /> <referenceRange> <observationRange> <text>0.1-0.5</text> </observationRange> </ referenceRange> </observation> </component> <component> <observation moodCode="EVN" classCode="OBS"> <templateId root= "2.16.840.1.737517.02.28.224.2" /> <id nullFlavor="NA" /> < code codeSystem="local" code="EO%" displayName="EOSINOPHIL %" /> <statusCode code="completed" /> <effectiveTime value="695205548522" /> <value unit="%" xsi:type="PQ" value="1" /> < interpretationCode codeSystem="local" code="*" /> <referenceRange> <observationRange> <text>2-4</text> </ observationRange> </referenceRange> </observation> </ component> <component> <observation moodCode="EVN" classCode="OBS"> <templateId root="216.840.1.178044.104.2" /> <id nullFlavor="NA" /> <code codeSystem="local" code="GR#" displayName= "GRANULOCYTE #" /> <statusCode code="completed" /> < effectiveTime value="157716380718" /> <value unit="k/cumm" xsi:type="PQ " value="3.0" /> <referenceRange> <observationRange> <text>2.0-9.0</text> </observationRange> </ referenceRange> </observation> </component> <component> <observation moodCode="EVN" classCode="OBS"> <templateId root= "216.840.1.570049.1022.4.2" /> <id nullFlavor="NA" /> < code codeSystem="local" code="GR%" displayName="GRANULOCYTE %" /> <statusCode code="completed" /> <effectiveTime value="433852052904 " /> <value unit="%" xsi:type="PQ" value="57" /> < referenceRange> <observationRange> <text>50-75</text> </observationRange> </referenceRange> </observation> </component> <component> <observation moodCode="EVN" classCode= "OBS"> <templateId root="2.840.1.115235.02.28.22.4.2" /> < id nullFlavor="NA" /> <code codeSystem="local" code="LY#" displayName= "LYMPHOCYTE #" /> <statusCode code="completed" /> < effectiveTime value="594363751959" /> <value unit="k/cumm" xsi:type="PQ " value="1.8" /> <referenceRange> <observationRange> <text>1.0-4.0</text> </observationRange> </ referenceRange> </observation> </component> <component> <observation moodCode="EVN" classCode="OBS"> <templateId root= "216.840.1.520061.10.4.2" /> <id nullFlavor="NA" /> < code codeSystem="local" code="LY%" displayName="LYMPHOCYTE %" /> <statusCode code="completed" /> <effectiveTime value="926409795866" /> <value unit="%" xsi:type="PQ" value="34" /> < interpretationCode codeSystem="local" code="*" /> <referenceRange> <observationRange> <text>20-30</text> </ observationRange> </referenceRange> </observation> </ component> <component> <observation moodCode="EVN" classCode="OBS"> <templateId root="2.16.840.1.216869.10.22.4.2" /> <id nullFlavor="NA" /> <code codeSystem="local" code="MCH" displayName= "MEAN CELL HGB" /> <statusCode code="completed" /> < effectiveTime value="551384764724" /> <value unit="pg" xsi:type="PQ" value="20.4" /> <interpretationCode codeSystem="local" code="*" /> <referenceRange> <observationRange> <text>27.0- 33.0</text> </observationRange> </referenceRange> </ observation> </component> <component> <observation moodCode= "EVN" classCode="OBS"> <templateId root="2.16.840.1.671938.10..22.4.2 " /> <id nullFlavor="NA" /> <code codeSystem="local" code= "MCHC" displayName="MEAN CELL HGB CONCENTRATION" /> <statusCode code= "completed" /> <effectiveTime value="125328494665" /> <value unit="g/dL" xsi:type="PQ" value="30.3" /> <interpretationCode codeSystem="local" code="*" /> <referenceRange> < observationRange> <text>32.0-37.0</text> </ observationRange> </referenceRange> </observation> </ component> <component> <observation moodCode="EVN" classCode="OBS"> <templateId root="06.27.840.1.579324.10.2022.4.2" /> <id nullFlavor="NA" /> <code codeSystem="local" code="MCV" displayName= "MEAN CELL VOLUME" /> <statusCode code="completed" /> < effectiveTime value="981471192658" /> <value unit="fl" xsi:type="PQ" value="67.4" /> <interpretationCode codeSystem="local" code="*" /> <referenceRange> <observationRange> <text>80.0- 100.0</text> </observationRange> </referenceRange> </ observation> </component> <component> <observation moodCode= "EVN" classCode="OBS"> <templateId root="840.1.196237.10.4.2 " /> <id nullFlavor="NA" /> <code codeSystem="local" code="MO# " displayName="MONOCYTE #" /> <statusCode code="completed" /> <effectiveTime value="" /> <value unit="k/cumm" xsi:type= "PQ" value="0.4" /> <referenceRange> <observationRange> <text>0.1-1.0</text> </observationRange> </ referenceRange> </observation> </component> <component> <observation moodCode="EVN" classCode="OBS"> <templateId root= "06.27.840.1.192769.10.2022.4.2" /> <id nullFlavor="NA" /> < code codeSystem="local" code="MO%" displayName="MONOCYTE %" /> <statusCode code="completed" /> <effectiveTime value="" /> <value unit="%" xsi:type="PQ" value="7" /> < interpretationCode codeSystem="local" code="*" /> <referenceRange> <observationRange> <text>4-6</text> </ observationRange> </referenceRange> </observation> </ component> <component> <observation moodCode="EVN" classCode="OBS"> <templateId root="16.840.1.757735.10..22.4.2" /> <id nullFlavor="NA" /> <code codeSystem="local" code="OVAL" displayName= "OVALOCYTES" /> <statusCode code="completed" /> < effectiveTime value="589848123157" /> <value unit="" xsi:type="PQ" value="NOTED" /> <referenceRange> <observationRange> <text /> </observationRange> </referenceRange> </observation> </component> <component> <observation moodCode ="EVN" classCode="OBS"> <templateId root= "840.1.871294.10..22.4.2" /> <id nullFlavor="NA" /> < code codeSystem="local" code="RBC" displayName="RED BLOOD CELL" /> < statusCode code="completed" /> <effectiveTime value="963223826060" /> <value unit="m/cumm" xsi:type="PQ" value="3.77" /> < interpretationCode codeSystem="local" code="*" /> <referenceRange> <observationRange> <text>4.00-6.00</text> </ observationRange> </referenceRange> </observation> </ component> <component> <observation moodCode="EVN" classCode="OBS"> <templateId root="06.27.840.1.351251.10.20.22.4.2" /> <id nullFlavor="NA" /> <code codeSystem="local" code="RDW" displayName=" RED CELL DISTRIBUTION WIDTH" /> <statusCode code="completed" /> <effectiveTime value="550583865947" /> <value unit="%" xsi:type= "PQ" value="22.0" /> <interpretationCode codeSystem="local" code="*" / > <referenceRange> <observationRange> <text> 11.0-15.6</text> </observationRange> </referenceRange> </observation> </component> <component> <observation moodCode="EVN" classCode="OBS"> <templateId root= "216.840.1.238861.02.28.22.4.2" /> <id nullFlavor="NA" /> < code codeSystem="local" code="WBC" displayName="WHITE BLOOD CELL" /> < statusCode code="completed" /> <effectiveTime value="943231698820" /> <value unit="k/cumm" xsi:type="PQ" value="5.3" /> < referenceRange> <observationRange> <text>5.0-10.0</text > </observationRange> </referenceRange> </observation > </component> <component> <observation moodCode="EVN" classCode="OBS"> <templateId root="216.840.1.336373....4.2" /> <id nullFlavor="NA" /> <code codeSystem="local" code="HGBT" displayName="HEMOGLOBIN" /> <statusCode code="completed" /> < effectiveTime value="922292353747" /> <value unit="gm/dL" xsi:type="PQ " value="7.7" /> <interpretationCode codeSystem="local" code="*" /> <referenceRange> <observationRange> <text>12.0- 16.0</text> </observationRange> </referenceRange> </ observation> </component> <component> <observation moodCode= "EVN" classCode="OBS"> <templateId root="216.840.1.675633.10...4.2 " /> <id nullFlavor="NA" /> <code codeSystem="local" code= "HCTT" displayName="HEMATOCRIT" /> <statusCode code="completed" /> <effectiveTime value="813474342125" /> <value unit="%" xsi: type="PQ" value="25.4" /> <interpretationCode codeSystem="local" code= "*" /> <referenceRange> <observationRange> < text>37.0-47.0</text> </observationRange> </referenceRange> </observation> </component> <component> <observation moodCode="EVN" classCode="OBS"> <templateId root= "16.840.1.439137.02.28.22.4.2" /> <id nullFlavor="NA" /> < code codeSystem="local" code="PLT" displayName="PLATELET COUNT" /> < statusCode code="completed" /> <effectiveTime value="567244685290" /> <value unit="k/cumm" xsi:type="PQ" value="284" /> < referenceRange> <observationRange> <text>150-400</text> </observationRange> </referenceRange> </observation > </component> <component> <observation moodCode="EVN" classCode="OBS"> <templateId root="216.840.1.144001.10..4.2" /> <id nullFlavor="NA" /> <code codeSystem="local" code="MB" displayName="Microbiology" /> <statusCode code="completed" /> <effectiveTime value="481620448754" /> <value unit="" xsi:type="PQ" value="" /> <referenceRange> <observationRange> <text /> </observationRange> </referenceRange> </ observation> </component> </organizer> </entry> <entry> <organizer moodCode="EVN" classCode="BATTERY"> <templateId root= "216.840.1.994671.10..22.4.1" /> <id nullFlavor="NA" /> <code codeSystem="local" code="PREG" displayName=" TEST, SERUM" /> < statusCode code="completed" /> <component> <observation moodCode= "EVN" classCode="OBS"> <templateId root="216.840.1.786813.10...4.2 " /> <id nullFlavor="NA" /> <code codeSystem="local" code= "PREG" displayName=" TEST, SERUM" /> <statusCode code= "completed" /> <effectiveTime value="278096764496" /> <value xsi:type="ST" value="<pre><b> TEST, SERUM</b> NEGATIVE</pre>" /> <referenceRange> <observationRange> <text>NEGATIVE</ text> </observationRange> </referenceRange> </ observation> </component> <component> <observation moodCode= "EVN" classCode="OBS"> <templateId root="06.27.840.1.299454.10..22.4.2 " /> <id nullFlavor="NA" /> <code codeSystem="local" code="MB " displayName="Microbiology" /> <statusCode code="completed" /> <effectiveTime value="454066813472" /> <value xsi:type="ST" value="< pre><b> TEST, SERUM</b> NEGATIVE</pre>" /> <referenceRange> <observationRange> <text /> </observationRange > </referenceRange> </observation> </component> </ organizer> </entry> <entry> <organizer moodCode="EVN" classCode="BATTERY"> <templateId root="216.840.1.400147.10..22.4.1" /> <id nullFlavor= "NA" /> <code codeSystem="local" code="METABC" displayName="METABOLIC PANEL , COMPREHN" /> <statusCode code="completed" /> <component> < observation moodCode="EVN" classCode="OBS"> <templateId root= "2.840.1.076946...4.2" /> <id nullFlavor="NA" /> < code codeSystem="local" code="K" displayName="POTASSIUM" /> < statusCode code="completed" /> <effectiveTime value="549665606133" /> <value unit="mmol/L" xsi:type="PQ" value="3.5" /> < referenceRange> <observationRange> <text>3.5-5.3</text> </observationRange> </referenceRange> </observation > </component> <component> <observation moodCode="EVN" classCode="OBS"> <templateId root="16.840.1.524863....4.2" /> <id nullFlavor="NA" /> <code codeSystem="local" code="eGFR" displayName="EST GFR (MDRD)" /> <statusCode code="completed" /> <effectiveTime value="581056266949" /> <value unit="mL/min" xsi:type ="PQ" value="> 60" /> <referenceRange> <observationRange > <text>> 59</text> </observationRange> </ referenceRange> </observation> </component> <component> <observation moodCode="EVN" classCode="OBS"> <templateId root= "216.840.1.471867.10..22.4.2" /> <id nullFlavor="NA" /> < code codeSystem="local" code="GAP" displayName="ANION GAP" /> < statusCode code="completed" /> <effectiveTime value="857753982195" /> <value unit="mmol/L" xsi:type="PQ" value="8" /> < referenceRange> <observationRange> <text>5-15</text> </observationRange> </referenceRange> </observation> </component> <component> <observation moodCode="EVN" classCode= "OBS"> <templateId root="06.27.840.1.641268.10...4.2" /> < id nullFlavor="NA" /> <code codeSystem="local" code="eCrCl" displayName ="EST CrCl (CG)" /> <statusCode code="completed" /> < effectiveTime value="276399768637" /> <value unit="mL/min" xsi:type="PQ " value="> 60" /> <referenceRange> <observationRange> <text>> 59</text> </observationRange> </ referenceRange> </observation> </component> <component> <observation moodCode="EVN" classCode="OBS"> <templateId root= "06.27.840.1.547200.10...4.2" /> <id nullFlavor="NA" /> < code codeSystem="local" code="GLU" displayName="GLUCOSE" /> < statusCode code="completed" /> <effectiveTime value="792177160654" /> <value unit="mg/dL" xsi:type="PQ" value="79" /> < referenceRange> <observationRange> <text>70-99</text> </observationRange> </referenceRange> </observation> </component> <component> <observation moodCode="EVN" classCode= "OBS"> <templateId root="216.840.1.691290.10..22.4.2" /> < id nullFlavor="NA" /> <code codeSystem="local" code="CA" displayName= "CALCIUM" /> <statusCode code="completed" /> <effectiveTime value="297325784048" /> <value unit="mg/dL" xsi:type="PQ" value="8.6" / > <referenceRange> <observationRange> <text>8.5 -10.1</text> </observationRange> </referenceRange> </ observation> </component> <component> <observation moodCode= "EVN" classCode="OBS"> <templateId root="06.27.840.1.205381.02.28.22.4.2 " /> <id nullFlavor="NA" /> <code codeSystem="local" code="BUN " displayName="BLOOD UREA NITROGEN" /> <statusCode code="completed" /> <effectiveTime value="426012761766" /> <value unit="mg/dL" xsi:type="PQ" value="9" /> <referenceRange> < observationRange> <text>7-20</text> </observationRange> </referenceRange> </observation> </component> < component> <observation moodCode="EVN" classCode="OBS"> < templateId root="06.27.840.1.753901.10..22.4.2" /> <id nullFlavor="NA " /> <code codeSystem="local" code="CREAT" displayName="CREATININE" /> <statusCode code="completed" /> <effectiveTime value= "220437324627" /> <value unit="mg/dL" xsi:type="PQ" value="0.6" /> <referenceRange> <observationRange> <text>0.6-1.0< /text> </observationRange> </referenceRange> </ observation> </component> <component> <observation moodCode= "EVN" classCode="OBS"> <templateId root="216.840.1.067244.10..22.4.2 " /> <id nullFlavor="NA" /> <code codeSystem="local" code="NA " displayName="SODIUM" /> <statusCode code="completed" /> < effectiveTime value="147263755031" /> <value unit="mmol/L" xsi:type="PQ " value="139" /> <referenceRange> <observationRange> <text>135-148</text> </observationRange> </ referenceRange> </observation> </component> <component> <observation moodCode="EVN" classCode="OBS"> <templateId root= "06.27.840.1.176368.10..4.2" /> <id nullFlavor="NA" /> < code codeSystem="local" code="CL" displayName="CHLORIDE" /> < statusCode code="completed" /> <effectiveTime value="464437253425" /> <value unit="mmol/L" xsi:type="PQ" value="101" /> < referenceRange> <observationRange> <text>98-110</text> </observationRange> </referenceRange> </observation> </component> <component> <observation moodCode="EVN" classCode ="OBS"> <templateId root="06.27.840.1.048467.10.20.22.4.2" /> < id nullFlavor="NA" /> <code codeSystem="local" code="AST" displayName= "AST/SGOT" /> <statusCode code="completed" /> <effectiveTime value="034374289531" /> <value unit="Units/L" xsi:type="PQ" value="38" /> <interpretationCode codeSystem="local" code="*" /> < referenceRange> <observationRange> <text>10-37</text> </observationRange> </referenceRange> </observation> </component> <component> <observation moodCode="EVN" classCode= "OBS"> <templateId root="216.840.1.451083.10.20.22.4.2" /> < id nullFlavor="NA" /> <code codeSystem="local" code="ALT" displayName= "ALT/SGPT" /> <statusCode code="completed" /> <effectiveTime value="507817286353" /> <value unit="Units/L" xsi:type="PQ" value="67" /> <interpretationCode codeSystem="local" code="*" /> < referenceRange> <observationRange> <text>< 66</text> </observationRange> </referenceRange> </observation > </component> <component> <observation moodCode="EVN" classCode="OBS"> <templateId root="216.840.1.871635.10.20.22.4.2" /> <id nullFlavor="NA" /> <code codeSystem="local" code="CO2" displayName="CARBON DIOXIDE" /> <statusCode code="completed" /> <effectiveTime value="600734630671" /> <value unit="mmol/L" xsi:type ="PQ" value="30" /> <referenceRange> <observationRange> <text>21-32</text> </observationRange> </ referenceRange> </observation> </component> <component> <observation moodCode="EVN" classCode="OBS"> <templateId root= "06.27.840.1.711431.10.2022.4.2" /> <id nullFlavor="NA" /> < code codeSystem="local" code="TP" displayName="TOTAL PROTEIN" /> < statusCode code="completed" /> <effectiveTime value="445165544862" /> <value unit="gm/dL" xsi:type="PQ" value="6.7" /> < referenceRange> <observationRange> <text>6.4-8.2</text> </observationRange> </referenceRange> </observation > </component> <component> <observation moodCode="EVN" classCode="OBS"> <templateId root="06.27.840.1.428586.1022.4.2" /> <id nullFlavor="NA" /> <code codeSystem="local" code="ALB" displayName="ALBUMIN" /> <statusCode code="completed" /> < effectiveTime value="887635902539" /> <value unit="gm/dL" xsi:type="PQ " value="2.9" /> <interpretationCode codeSystem="local" code="*" /> <referenceRange> <observationRange> <text>3.4-5.0 </text> </observationRange> </referenceRange> </ observation> </component> <component> <observation moodCode= "EVN" classCode="OBS"> <templateId root="06.27.840.1.384146.10.2022.4.2 " /> <id nullFlavor="NA" /> <code codeSystem="local" code= "BILTOT" displayName="BILI TOTAL" /> <statusCode code="completed" /> <effectiveTime value="122847099289" /> <value unit="mg/dL" xsi: type="PQ" value="0.3" /> <referenceRange> <observationRange > <text>0.0-1.0</text> </observationRange> </ referenceRange> </observation> </component> <component> <observation moodCode="EVN" classCode="OBS"> <templateId root= "16.840.1.540126.10..22.4.2" /> <id nullFlavor="NA" /> < code codeSystem="local" code="ALKP" displayName="ALKALINE PHOSPHATASE TOTAL" /> <statusCode code="completed" /> <effectiveTime value= "734882268270" /> <value unit="IU/L" xsi:type="PQ" value="149" /> <interpretationCode codeSystem="local" code="*" /> <referenceRange > <observationRange> <text>45-117</text> </ observationRange> </referenceRange> </observation> </ component> <component> <observation moodCode="EVN" classCode="OBS"> <templateId root="06.27.840.1.128965.10..4.2" /> <id nullFlavor="NA" /> <code codeSystem="local" code="MB" displayName= "Microbiology" /> <statusCode code="completed" /> < effectiveTime value="810940416925" /> <value unit="" xsi:type="PQ" value="" /> <referenceRange> <observationRange> <text /> </observationRange> </referenceRange> </ observation> </component> </organizer> </entry> <entry> <organizer moodCode="EVN" classCode="BATTERY"> <templateId root= "06.27.840.1.618299.10..22.4.1" /> <id nullFlavor="NA" /> <code codeSystem="local" code="MAG" displayName="MAGNESIUM" /> <statusCode code= "completed" /> <component> <observation moodCode="EVN" classCode= "OBS"> <templateId root="2.16.840.1.997070.10..22.4.2" /> < id nullFlavor="NA" /> <code codeSystem="local" code="MAG" displayName= "MAGNESIUM" /> <statusCode code="completed" /> <effectiveTime value="378660292596" /> <value unit="mg/dL" xsi:type="PQ" value="1.8" / > <referenceRange> <observationRange> <text>1.8 -2.4</text> </observationRange> </referenceRange> </ observation> </component> </organizer> </entry> <entry> <organizer moodCode="EVN" classCode="BATTERY"> <templateId root= "2.16.840.1.192434.10..22.4.1" /> <id nullFlavor="NA" /> <code codeSystem="local" code="LIP" displayName="LIPASE" /> <statusCode code= "completed" /> <component> <observation moodCode="EVN" classCode= "OBS"> <templateId root="2.16.840.1.872591.10.20.22.4.2" /> < id nullFlavor="NA" /> <code codeSystem="local" code="LIP" displayName= "LIPASE" /> <statusCode code="completed" /> <effectiveTime value="583921168174" /> <value unit="Units/L" xsi:type="PQ" value="123 " /> <referenceRange> <observationRange> <text> 73-393</text> </observationRange> </referenceRange> < /observation> </component> </organizer> </entry> <entry> < organizer moodCode="EVN" classCode="BATTERY"> <templateId root= "2.16.840.1.769960.10.22.4.1" /> <id nullFlavor="NA" /> <code codeSystem="local" code="iCHEM8" displayName="CHEM/HEM PROFILE-BEDSIDE" /> <statusCode code="completed" /> <component> <observation moodCode= "EVN" classCode="OBS"> <templateId root="840.1.485819.22.4.2 " /> <id nullFlavor="NA" /> <code codeSystem="local" code="K" displayName="POTASSIUM" /> <statusCode code="completed" /> < effectiveTime value="181700886610" /> <value unit="mmol/L" xsi:type="PQ " value="3.4" /> <interpretationCode codeSystem="local" code="*" /> <referenceRange> <observationRange> <text>3.5-5.3 </text> </observationRange> </referenceRange> </ observation> </component> <component> <observation moodCode= "EVN" classCode="OBS"> <templateId root="06.27.840.1.432187.02.28.22.4.2 " /> <id nullFlavor="NA" /> <code codeSystem="local" code= "CMETHOD" displayName="METHOD" /> <statusCode code="completed" /> <effectiveTime value="613817337355" /> <value unit="" xsi:type="PQ " value="Bedside" /> <referenceRange> <observationRange> <text /> </observationRange> </referenceRange> </observation> </component> <component> <observation moodCode="EVN" classCode="OBS"> <templateId root= "06.27.840.1.414465.22.4.2" /> <id nullFlavor="NA" /> < code codeSystem="local" code="GAP" displayName="ANION GAP" /> < statusCode code="completed" /> <effectiveTime value="300044154992" /> <value unit="mmol/L" xsi:type="PQ" value="17" /> < referenceRange> <observationRange> <text>10-20</text> </observationRange> </referenceRange> </observation> </component> <component> <observation moodCode="EVN" classCode= "OBS"> <templateId root="06.27.840.1.279242.10.2022.4.2" /> < id nullFlavor="NA" /> <code codeSystem="local" code="HMETHOD" displayName="METHOD" /> <statusCode code="completed" /> < effectiveTime value="866442493688" /> <value unit="" xsi:type="PQ" value="Bedside" /> <referenceRange> <observationRange> <text /> </observationRange> </referenceRange> </observation> </component> <component> <observation moodCode="EVN" classCode="OBS"> <templateId root= "06.27.840.1.229949..22.4.2" /> <id nullFlavor="NA" /> < code codeSystem="local" code="GLU" displayName="GLUCOSE" /> < statusCode code="completed" /> <effectiveTime value="773045992663" /> <value unit="mg/dL" xsi:type="PQ" value="77" /> < referenceRange> <observationRange> <text>70-99</text> </observationRange> </referenceRange> </observation> </component> <component> <observation moodCode="EVN" classCode= "OBS"> <templateId root="06.27.840.1.484204.02.28.224.2" /> < id nullFlavor="NA" /> <code codeSystem="local" code="BUN" displayName= "BLOOD UREA NITROGEN" /> <statusCode code="completed" /> < effectiveTime value="676567963708" /> <value unit="mg/dL" xsi:type="PQ " value="5" /> <interpretationCode codeSystem="local" code="*" /> <referenceRange> <observationRange> <text>7-20</ text> </observationRange> </referenceRange> </ observation> </component> <component> <observation moodCode= "EVN" classCode="OBS"> <templateId root="2.16.840.1.197337.02.28.224.2 " /> <id nullFlavor="NA" /> <code codeSystem="local" code= "CREAT" displayName="CREATININE" /> <statusCode code="completed" /> <effectiveTime value="037369399575" /> <value unit="mg/dL" xsi: type="PQ" value="0.6" /> <referenceRange> <observationRange > <text>0.6-1.0</text> </observationRange> </ referenceRange> </observation> </component> <component> <observation moodCode="EVN" classCode="OBS"> <templateId root= "2.16.840.1.745382.02.28.22.4.2" /> <id nullFlavor="NA" /> < code codeSystem="local" code="HGBT" displayName="HEMOGLOBIN" /> < statusCode code="completed" /> <effectiveTime value="985066684613" /> <value unit="gm/dL" xsi:type="PQ" value="8.5" /> < interpretationCode codeSystem="local" code="*" /> <referenceRange> <observationRange> <text>12.0-16.0</text> </ observationRange> </referenceRange> </observation> </ component> <component> <observation moodCode="EVN" classCode="OBS"> <templateId root="2.16.840.1.949459.10.2022.4.2" /> <id nullFlavor="NA" /> <code codeSystem="local" code="HCTT" displayName= "HEMATOCRIT" /> <statusCode code="completed" /> < effectiveTime value="501560176125" /> <value unit="%" xsi:type="PQ " value="25.0" /> <interpretationCode codeSystem="local" code="*" /> <referenceRange> <observationRange> <text>37.0- 47.0</text> </observationRange> </referenceRange> </ observation> </component> <component> <observation moodCode= "EVN" classCode="OBS"> <templateId root="216.840.1.812677.10..4.2 " /> <id nullFlavor="NA" /> <code codeSystem="local" code="NA " displayName="SODIUM" /> <statusCode code="completed" /> < effectiveTime value="074398966261" /> <value unit="mmol/L" xsi:type="PQ " value="138" /> <referenceRange> <observationRange> <text>135-148</text> </observationRange> </ referenceRange> </observation> </component> <component> <observation moodCode="EVN" classCode="OBS"> <templateId root= "216.840.1.483230.10.2022.4.2" /> <id nullFlavor="NA" /> < code codeSystem="local" code="CL" displayName="CHLORIDE" /> < statusCode code="completed" /> <effectiveTime value="710336934218" /> <value unit="mmol/L" xsi:type="PQ" value="100" /> < referenceRange> <observationRange> <text>98-110</text> </observationRange> </referenceRange> </observation> </component> <component> <observation moodCode="EVN" classCode ="OBS"> <templateId root="16.840.1.361627.10..22.4.2" /> < id nullFlavor="NA" /> <code codeSystem="local" code="CO2" displayName= "CARBON DIOXIDE" /> <statusCode code="completed" /> < effectiveTime value="467121492508" /> <value unit="mmol/L" xsi:type="PQ " value="25" /> <referenceRange> <observationRange> <text>21-32</text> </observationRange> </ referenceRange> </observation> </component> <component> <observation moodCode="EVN" classCode="OBS"> <templateId root= "840.1.548187.10.22.4.2" /> <id nullFlavor="NA" /> < code codeSystem="local" code="CAION" displayName="CALCIUM IONIZED" /> < statusCode code="completed" /> <effectiveTime value="520215843375" /> <value unit="mg/dL" xsi:type="PQ" value="4.7" /> < referenceRange> <observationRange> <text>4.5-5.3</text> </observationRange> </referenceRange> </observation > </component> <component> <observation moodCode="EVN" classCode="OBS"> <templateId root="16.840.1.282569.10.20.22.4.2" /> <id nullFlavor="NA" /> <code codeSystem="local" code="MB" displayName="Microbiology" /> <statusCode code="completed" /> <effectiveTime value="492779448003" /> <value unit="" xsi:type="PQ" value="" /> <referenceRange> <observationRange> <text /> </observationRange> </referenceRange> </ observation> </component> </organizer> </entry> <entry> <organizer moodCode="EVN" classCode="BATTERY"> <templateId root= "216.840.1.836270.10..22.4.1" /> <id nullFlavor="NA" /> <code codeSystem="local" code="UANRC" displayName="URINALYSIS, NO REFLEX CULTURE" /> <statusCode code="completed" /> <component> <observation moodCode="EVN" classCode="OBS"> <templateId root= "216.840.1.480410.10...4.2" /> <id nullFlavor="NA" /> < code codeSystem="local" code="LEUESU" displayName="UA LEUKOCYTE ESTERASE DIPSTICK" /> <statusCode code="completed" /> <effectiveTime value="128493026772" /> <value unit="" xsi:type="PQ" value="2+" /> <interpretationCode codeSystem="local" code="*" /> < referenceRange> <observationRange> <text>NEGATIVE</text > </observationRange> </referenceRange> </observation > </component> <component> <observation moodCode="EVN" classCode="OBS"> <templateId root="216.840.1.308823.10..4.2" /> <id nullFlavor="NA" /> <code codeSystem="local" code="NITRIU" displayName="UA NITRITE DIPSTICK" /> <statusCode code="completed" /> <effectiveTime value="823707470046" /> <value unit="" xsi:type= "PQ" value="NEGATIVE" /> <referenceRange> <observationRange > <text>NEGATIVE</text> </observationRange> </ referenceRange> </observation> </component> <component> <observation moodCode="EVN" classCode="OBS"> <templateId root= "216.840.1.247008.02.28.22.4.2" /> <id nullFlavor="NA" /> < code codeSystem="local" code="PROTEIU" displayName="UA PROTEIN DIPSTICK" /> <statusCode code="completed" /> <effectiveTime value= "599152683395" /> <value unit="" xsi:type="PQ" value="1+" /> < interpretationCode codeSystem="local" code="*" /> <referenceRange> <observationRange> <text>NEGATIVE</text> </ observationRange> </referenceRange> </observation> </ component> <component> <observation moodCode="EVN" classCode="OBS"> <templateId root="06.27.840.1.415288.02.28.22.4.2" /> <id nullFlavor="NA" /> <code codeSystem="local" code="DGLUU" displayName= "UA GLUCOSE DIPSTICK" /> <statusCode code="completed" /> < effectiveTime value="641440524491" /> <value unit="" xsi:type="PQ" value="NEGATIVE" /> <referenceRange> <observationRange> <text>NEGATIVE</text> </observationRange> </ referenceRange> </observation> </component> <component> <observation moodCode="EVN" classCode="OBS"> <templateId root= "06.27.840.1.971757.02.28.22.4.2" /> <id nullFlavor="NA" /> < code codeSystem="local" code="KETONU" displayName="UA KETONE DIPSTICK" /> <statusCode code="completed" /> <effectiveTime value="758856503327 " /> <value unit="" xsi:type="PQ" value="NEGATIVE" /> < referenceRange> <observationRange> <text>NEGATIVE</text > </observationRange> </referenceRange> </observation > </component> <component> <observation moodCode="EVN" classCode="OBS"> <templateId root="16.840.1.022088.10...4.2" /> <id nullFlavor="NA" /> <code codeSystem="local" code="UROBILU " displayName="UA UROBILINOGEN DIPSTICK" /> <statusCode code="completed " /> <effectiveTime value="763905288311" /> <value unit="" xsi :type="PQ" value="NORMAL" /> <referenceRange> < observationRange> <text>NORMAL</text> </observationRange > </referenceRange> </observation> </component> < component> <observation moodCode="EVN" classCode="OBS"> < templateId root="16.840.1.175633.10...4.2" /> <id nullFlavor="NA " /> <code codeSystem="local" code="BILU" displayName="UA BILIRUBIN DIPSTICK" /> <statusCode code="completed" /> <effectiveTime value="380390658338" /> <value unit="" xsi:type="PQ" value="NEGATIVE" / > <referenceRange> <observationRange> <text> NEGATIVE</text> </observationRange> </referenceRange> </observation> </component> <component> <observation moodCode ="EVN" classCode="OBS"> <templateId root= "16.840.1.799110.02.28.22.4.2" /> <id nullFlavor="NA" /> < code codeSystem="local" code="NOLVIA" displayName="UA BLOOD DIPSTICK" /> < statusCode code="completed" /> <effectiveTime value="" /> <value unit="" xsi:type="PQ" value="1+" /> < interpretationCode codeSystem="local" code="*" /> <referenceRange> <observationRange> <text>NEGATIVE</text> </ observationRange> </referenceRange> </observation> </ component> <component> <observation moodCode="EVN" classCode="OBS"> <templateId root="06.27.840.1.617042.02.28.224.2" /> <id nullFlavor="NA" /> <code codeSystem="local" code="SPGRU" displayName= "UA SPECIFIC GRAVITY" /> <statusCode code="completed" /> < effectiveTime value="" /> <value unit="" xsi:type="PQ" value="1.010" /> <interpretationCode codeSystem="local" code="*" /> <referenceRange> <observationRange> <text>1.015- 1.025</text> </observationRange> </referenceRange> </ observation> </component> <component> <observation moodCode= "EVN" classCode="OBS"> <templateId root="06.27.840.1.543049.10.4.2 " /> <id nullFlavor="NA" /> <code codeSystem="local" code="DIETER " displayName="UR PH" /> <statusCode code="completed" /> < effectiveTime value="" /> <value unit="" xsi:type="PQ" value="8.0" /> <interpretationCode codeSystem="local" code="*" /> <referenceRange> <observationRange> <text>5.0-7.0</ text> </observationRange> </referenceRange> </ observation> </component> </organizer> </entry> <entry> <organizer moodCode="EVN" classCode="BATTERY"> <templateId root= "216.840.1.674874.10..22.4.1" /> <id nullFlavor="NA" /> <code codeSystem="local" code="UAMICRO" displayName="UA MICROSCOPIC" /> < statusCode code="completed" /> <component> <observation moodCode= "EVN" classCode="OBS"> <templateId root="216.840.1.129879.10...4.2 " /> <id nullFlavor="NA" /> <code codeSystem="local" code= "BACU" displayName="UA BACTERIA" /> <statusCode code="completed" /> <effectiveTime value="" /> <value unit="" xsi:type= "PQ" value="2+" /> <interpretationCode codeSystem="local" code="*" /> <referenceRange> <observationRange> <text> NEGATIVE</text> </observationRange> </referenceRange> </observation> </component> <component> <observation moodCode ="EVN" classCode="OBS"> <templateId root= "16.840.1.665273.10..4.2" /> <id nullFlavor="NA" /> < code codeSystem="local" code="EPIU" displayName="UA EPITHELIAL CELLS" /> <statusCode code="completed" /> <effectiveTime value="806201947883" /> <value unit="epi/hpf" xsi:type="PQ" value="1+" /> < referenceRange> <observationRange> <text>0 - 1+</text> </observationRange> </referenceRange> </observation> </component> <component> <observation moodCode="EVN" classCode ="OBS"> <templateId root="216.840.1.051908.02.28.22.4.2" /> < id nullFlavor="NA" /> <code codeSystem="local" code="MUCUSU" displayName="UA MUCUS" /> <statusCode code="completed" /> < effectiveTime value="400225786042" /> <value unit="" xsi:type="PQ" value="2+" /> <interpretationCode codeSystem="local" code="*" /> <referenceRange> <observationRange> <text>NEG TO 1+< /text> </observationRange> </referenceRange> </ observation> </component> <component> <observation moodCode= "EVN" classCode="OBS"> <templateId root="06.27.840.1.010518.02.28.22.4.2 " /> <id nullFlavor="NA" /> <code codeSystem="local" code= "RBCU" displayName="UA RBC" /> <statusCode code="completed" /> <effectiveTime value="229991633405" /> <value unit="rbc/hpf" xsi:type ="PQ" value="0-3" /> <referenceRange> <observationRange> <text>0 - 3</text> </observationRange> </ referenceRange> </observation> </component> <component> <observation moodCode="EVN" classCode="OBS"> <templateId root= "16.840.1.947806.02.28.22.4.2" /> <id nullFlavor="NA" /> < code codeSystem="local" code="UAVOL" displayName="UA VOLUME FOR EXAM" /> <statusCode code="completed" /> <effectiveTime value="670383684958" /> <value unit="mL" xsi:type="PQ" value="12.0" /> < referenceRange> <observationRange> <text>(12mL STD)</ text> </observationRange> </referenceRange> </ observation> </component> <component> <observation moodCode= "EVN" classCode="OBS"> <templateId root="840.1.052633.02.28.22.4.2 " /> <id nullFlavor="NA" /> <code codeSystem="local" code= "WBCU" displayName="UA WBC" /> <statusCode code="completed" /> <effectiveTime value="071954176974" /> <value unit="wbc/hpf" xsi:type ="PQ" value="5-10" /> <interpretationCode codeSystem="local" code="*" / > <referenceRange> <observationRange> <text>0 - 5</text> </observationRange> </referenceRange> </ observation> </component> </organizer> </entry> <entry> <organizer moodCode="EVN" classCode="BATTERY"> <templateId root= "06.27.840.1.574208.02.28.22.4.1" /> <id nullFlavor="NA" /> <code codeSystem="local" code="CBCD" displayName="CBC W/DIFF" /> <statusCode code ="completed" /> <component> <observation moodCode="EVN" classCode= "OBS"> <templateId root="06.27.840.1.456142.02.28.22.4.2" /> < id nullFlavor="NA" /> <code codeSystem="local" code="BA#" displayName= "BASOPHIL #" /> <statusCode code="completed" /> < effectiveTime value="911057717250" /> <value unit="k/cumm" xsi:type="PQ " value="0.0" /> <referenceRange> <observationRange> <text>0.0-0.2</text> </observationRange> </ referenceRange> </observation> </component> <component> <observation moodCode="EVN" classCode="OBS"> <templateId root= "216.840.1.492331.10..4.2" /> <id nullFlavor="NA" /> < code codeSystem="local" code="BA%" displayName="BASOPHIL %" /> <statusCode code="completed" /> <effectiveTime value="936518245262" /> <value unit="%" xsi:type="PQ" value="1" /> < referenceRange> <observationRange> <text>0-1</text> </observationRange> </referenceRange> </observation> </component> <component> <observation moodCode="EVN" classCode= "OBS"> <templateId root="16.840.1.971058.10.4.2" /> < id nullFlavor="NA" /> <code codeSystem="local" code="EO#" displayName= "EOSINOPHIL #" /> <statusCode code="completed" /> < effectiveTime value="551201979363" /> <value unit="k/cumm" xsi:type="PQ " value="0.2" /> <referenceRange> <observationRange> <text>0.1-0.5</text> </observationRange> </ referenceRange> </observation> </component> <component> <observation moodCode="EVN" classCode="OBS"> <templateId root= "16.840.1.153790.10...4.2" /> <id nullFlavor="NA" /> < code codeSystem="local" code="EO%" displayName="EOSINOPHIL %" /> <statusCode code="completed" /> <effectiveTime value="172731978881" /> <value unit="%" xsi:type="PQ" value="4" /> < referenceRange> <observationRange> <text>2-4</text> </observationRange> </referenceRange> </observation> </component> <component> <observation moodCode="EVN" classCode= "OBS"> <templateId root="2.16.840.1.602047.10..22.4.2" /> < id nullFlavor="NA" /> <code codeSystem="local" code="GR#" displayName= "GRANULOCYTE #" /> <statusCode code="completed" /> < effectiveTime value="938490670758" /> <value unit="k/cumm" xsi:type="PQ " value="4.1" /> <referenceRange> <observationRange> <text>2.0-9.0</text> </observationRange> </ referenceRange> </observation> </component> <component> <observation moodCode="EVN" classCode="OBS"> <templateId root= "2.16.840.1.888739.10.20.22.4.2" /> <id nullFlavor="NA" /> < code codeSystem="local" code="GR%" displayName="GRANULOCYTE %" /> <statusCode code="completed" /> <effectiveTime value="077727247316 " /> <value unit="%" xsi:type="PQ" value="60" /> < referenceRange> <observationRange> <text>50-75</text> </observationRange> </referenceRange> </observation> </component> <component> <observation moodCode="EVN" classCode= "OBS"> <templateId root="06.27.840.1.139002.10..4.2" /> < id nullFlavor="NA" /> <code codeSystem="local" code="LY#" displayName= "LYMPHOCYTE #" /> <statusCode code="completed" /> < effectiveTime value="082008693730" /> <value unit="k/cumm" xsi:type="PQ " value="1.9" /> <referenceRange> <observationRange> <text>1.0-4.0</text> </observationRange> </ referenceRange> </observation> </component> <component> <observation moodCode="EVN" classCode="OBS"> <templateId root= "06.27.840.1.119858.10.4.2" /> <id nullFlavor="NA" /> < code codeSystem="local" code="LY%" displayName="LYMPHOCYTE %" /> <statusCode code="completed" /> <effectiveTime value="430754257152" /> <value unit="%" xsi:type="PQ" value="27" /> < referenceRange> <observationRange> <text>20-30</text> </observationRange> </referenceRange> </observation> </component> <component> <observation moodCode="EVN" classCode= "OBS"> <templateId root="06.27.840.1.103217.10.22.4.2" /> < id nullFlavor="NA" /> <code codeSystem="local" code="MCH" displayName= "MEAN CELL HGB" /> <statusCode code="completed" /> < effectiveTime value="389114163390" /> <value unit="pg" xsi:type="PQ" value="30.0" /> <referenceRange> <observationRange> <text>27.0-33.0</text> </observationRange> </ referenceRange> </observation> </component> <component> <observation moodCode="EVN" classCode="OBS"> <templateId root= "06.27.840.1.080306.10.4.2" /> <id nullFlavor="NA" /> < code codeSystem="local" code="MCHC" displayName="MEAN CELL HGB CONCENTRATION" / > <statusCode code="completed" /> <effectiveTime value= "590003224340" /> <value unit="g/dL" xsi:type="PQ" value="33.8" /> <referenceRange> <observationRange> <text>32.0- 37.0</text> </observationRange> </referenceRange> </ observation> </component> <component> <observation moodCode= "EVN" classCode="OBS"> <templateId root="06.27.840.1.660865.02.28.22.4.2 " /> <id nullFlavor="NA" /> <code codeSystem="local" code="MCV " displayName="MEAN CELL VOLUME" /> <statusCode code="completed" /> <effectiveTime value="275870255818" /> <value unit="fl" xsi:type ="PQ" value="88.8" /> <referenceRange> <observationRange> <text>80.0-100.0</text> </observationRange> </ referenceRange> </observation> </component> <component> <observation moodCode="EVN" classCode="OBS"> <templateId root= "06.27.840.1.088613.02.28.22.4.2" /> <id nullFlavor="NA" /> < code codeSystem="local" code="MO#" displayName="MONOCYTE #" /> < statusCode code="completed" /> <effectiveTime value="297741775873" /> <value unit="k/cumm" xsi:type="PQ" value="0.6" /> < referenceRange> <observationRange> <text>0.1-1.0</text> </observationRange> </referenceRange> </observation > </component> <component> <observation moodCode="EVN" classCode="OBS"> <templateId root="216.840.1.026014.02.28.22.4.2" /> <id nullFlavor="NA" /> <code codeSystem="local" code="MO% " displayName="MONOCYTE %" /> <statusCode code="completed" /> <effectiveTime value="733817596798" /> <value unit="%" xsi: type="PQ" value="9" /> <interpretationCode codeSystem="local" code="*" /> <referenceRange> <observationRange> <text>4- 6</text> </observationRange> </referenceRange> </ observation> </component> <component> <observation moodCode= "EVN" classCode="OBS"> <templateId root="216.840.1.867471.10...4.2 " /> <id nullFlavor="NA" /> <code codeSystem="local" code="RBC " displayName="RED BLOOD CELL" /> <statusCode code="completed" /> <effectiveTime value="210113130332" /> <value unit="m/cumm" xsi: type="PQ" value="3.57" /> <interpretationCode codeSystem="local" code= "*" /> <referenceRange> <observationRange> < text>4.00-6.00</text> </observationRange> </referenceRange> </observation> </component> <component> <observation moodCode="EVN" classCode="OBS"> <templateId root= "2.16.840.1.020000.102022.4.2" /> <id nullFlavor="NA" /> < code codeSystem="local" code="RDW" displayName="RED CELL DISTRIBUTION WIDTH" /> <statusCode code="completed" /> <effectiveTime value= "798730013226" /> <value unit="%" xsi:type="PQ" value="13.5" /> <referenceRange> <observationRange> <text>11.0- 15.6</text> </observationRange> </referenceRange> </ observation> </component> <component> <observation moodCode= "EVN" classCode="OBS"> <templateId root="06.27.840.1.844399.02.28.22.4.2 " /> <id nullFlavor="NA" /> <code codeSystem="local" code="WBC " displayName="WHITE BLOOD CELL" /> <statusCode code="completed" /> <effectiveTime value="390259538228" /> <value unit="k/cumm" xsi: type="PQ" value="6.9" /> <referenceRange> <observationRange > <text>5.0-10.0</text> </observationRange> </ referenceRange> </observation> </component> <component> <observation moodCode="EVN" classCode="OBS"> <templateId root= "06.27.840.1.776188.22.4.2" /> <id nullFlavor="NA" /> < code codeSystem="local" code="HGBT" displayName="HEMOGLOBIN" /> < statusCode code="completed" /> <effectiveTime value="307876192936" /> <value unit="gm/dL" xsi:type="PQ" value="10.7" /> < interpretationCode codeSystem="local" code="*" /> <referenceRange> <observationRange> <text>12.0-16.0</text> </ observationRange> </referenceRange> </observation> </ component> <component> <observation moodCode="EVN" classCode="OBS"> <templateId root="216.840.1.091399.10.20.22.4.2" /> <id nullFlavor="NA" /> <code codeSystem="local" code="HCTT" displayName= "HEMATOCRIT" /> <statusCode code="completed" /> < effectiveTime value="978600857073" /> <value unit="%" xsi:type="PQ " value="31.7" /> <interpretationCode codeSystem="local" code="*" /> <referenceRange> <observationRange> <text>37.0- 47.0</text> </observationRange> </referenceRange> </ observation> </component> <component> <observation moodCode= "EVN" classCode="OBS"> <templateId root="06.27.840.1.888119.10..4.2 " /> <id nullFlavor="NA" /> <code codeSystem="local" code="PLT " displayName="PLATELET COUNT" /> <statusCode code="completed" /> <effectiveTime value="053349456997" /> <value unit="k/cumm" xsi: type="PQ" value="275" /> <referenceRange> <observationRange > <text>150-450</text> </observationRange> </ referenceRange> </observation> </component> </organizer> </entry > <entry> <organizer moodCode="EVN" classCode="BATTERY"> <templateId root="16.840.1.538411.10..22.4.1" /> <id nullFlavor="NA" /> <code codeSystem="local" code="PREG" displayName=" TEST, SERUM" /> < statusCode code="completed" /> <component> <observation moodCode= "EVN" classCode="OBS"> <templateId root="216.840.1.763581.1022.4.2 " /> <id nullFlavor="NA" /> <code codeSystem="local" code= "PREG" displayName=" TEST, SERUM" /> <statusCode code= "completed" /> <effectiveTime value="915095599353" /> <value unit="" xsi:type="PQ" value="NEGATIVE" /> <referenceRange> < observationRange> <text>NEGATIVE</text> </ observationRange> </referenceRange> </observation> </ component> </organizer> </entry> <entry> <organizer moodCode="EVN" classCode="BATTERY"> <templateId root="216.840.1.287755.22.4.1" /> <id nullFlavor="NA" /> <code codeSystem="local" code="PT" displayName= "PROTHROMBIN TIME WITH INR" /> <statusCode code="completed" /> < component> <observation moodCode="EVN" classCode="OBS"> < templateId root="216.840.1.245391.10..22.4.2" /> <id nullFlavor="NA " /> <code codeSystem="local" code="INRX" displayName="INTERNATIONAL NORMAL RATIO" /> <statusCode code="completed" /> < effectiveTime value="029575220938" /> <value unit="" xsi:type="PQ" value="1.1" /> <referenceRange> <observationRange> <text>0.9-1.1</text> </observationRange> </ referenceRange> </observation> </component> <component> <observation moodCode="EVN" classCode="OBS"> <templateId root= "16.840.1.414942.10..22.4.2" /> <id nullFlavor="NA" /> < code codeSystem="local" code="PTPAT" displayName="PROTHROMBIN TIME" /> <statusCode code="completed" /> <effectiveTime value="654557467166" /> <value unit="sec" xsi:type="PQ" value="12.3" /> < referenceRange> <observationRange> <text>10.0-12.9</text > </observationRange> </referenceRange> </observation > </component> </organizer> </entry> <entry> <organizer moodCode= "EVN" classCode="BATTERY"> <templateId root="216.840.1.612773.10..22.4.1 " /> <id nullFlavor="NA" /> <code codeSystem="local" code="PTT" displayName="PARTIAL THROMBOPLASTIN TIME" /> <statusCode code="completed" / > <component> <observation moodCode="EVN" classCode="OBS"> <templateId root="216.840.1.792914.10.20.22.4.2" /> <id nullFlavor="NA " /> <code codeSystem="local" code="PTT" displayName="PARTIAL THROMBOPLASTIN TIME" /> <statusCode code="completed" /> < effectiveTime value="411835287764" /> <value unit="sec" xsi:type="PQ" value="33" /> <referenceRange> <observationRange> <text>25-37</text> </observationRange> </referenceRange > </observation> </component> </organizer> </entry> <entry> <organizer moodCode="EVN" classCode="BATTERY"> <templateId root= "216.840.1.070302.22.4.1" /> <id nullFlavor="NA" /> <code codeSystem="local" code="METABC" displayName="METABOLIC PANEL, COMPREHN" /> <statusCode code="completed" /> <component> <observation moodCode= "EVN" classCode="OBS"> <templateId root="16.840.1.525973.02.28.22.4.2 " /> <id nullFlavor="NA" /> <code codeSystem="local" code="K" displayName="POTASSIUM" /> <statusCode code="completed" /> < effectiveTime value="349000016805" /> <value unit="mmol/L" xsi:type="PQ " value="3.1" /> <interpretationCode codeSystem="local" code="*" /> <referenceRange> <observationRange> <text>3.5-5.3 </text> </observationRange> </referenceRange> </ observation> </component> <component> <observation moodCode= "EVN" classCode="OBS"> <templateId root="840.1.903805.02.28.22.4.2 " /> <id nullFlavor="NA" /> <code codeSystem="local" code= "eGFR" displayName="EST GFR (MDRD)" /> <statusCode code="completed" /> <effectiveTime value="014007025723" /> <value unit="mL/min" xsi:type="PQ" value="> 60" /> <referenceRange> < observationRange> <text>> 59</text> </ observationRange> </referenceRange> </observation> </ component> <component> <observation moodCode="EVN" classCode="OBS"> <templateId root="06.27.840.1.207013.02.28.22.4.2" /> <id nullFlavor="NA" /> <code codeSystem="local" code="GAP" displayName= "ANION GAP" /> <statusCode code="completed" /> <effectiveTime value="702502543034" /> <value unit="mmol/L" xsi:type="PQ" value="11" / > <referenceRange> <observationRange> <text>5- 15</text> </observationRange> </referenceRange> </ observation> </component> <component> <observation moodCode= "EVN" classCode="OBS"> <templateId root="2.16.840.1.314713.10.20.22.4.2 " /> <id nullFlavor="NA" /> <code codeSystem="local" code= "eCrCl" displayName="EST CrCl (CG)" /> <statusCode code="completed" /> <effectiveTime value="" /> <value unit="mL/min" xsi:type="PQ" value="> 60" /> <referenceRange> < observationRange> <text>> 59</text> </ observationRange> </referenceRange> </observation> </ component> <component> <observation moodCode="EVN" classCode="OBS"> <templateId root="2.16.840.1.424484.10.20.22.4.2" /> <id nullFlavor="NA" /> <code codeSystem="local" code="GLU" displayName= "GLUCOSE" /> <statusCode code="completed" /> <effectiveTime value="951215518821" /> <value unit="mg/dL" xsi:type="PQ" value="82" / > <referenceRange> <observationRange> <text>70- 99</text> </observationRange> </referenceRange> </ observation> </component> <component> <observation moodCode= "EVN" classCode="OBS"> <templateId root="216.840.1.883016.10..22.4.2 " /> <id nullFlavor="NA" /> <code codeSystem="local" code="CA " displayName="CALCIUM" /> <statusCode code="completed" /> < effectiveTime value="248234885736" /> <value unit="mg/dL" xsi:type="PQ " value="9.0" /> <referenceRange> <observationRange> <text>8.5-10.1</text> </observationRange> </ referenceRange> </observation> </component> <component> <observation moodCode="EVN" classCode="OBS"> <templateId root= "216.840.1.351921.10..4.2" /> <id nullFlavor="NA" /> < code codeSystem="local" code="BUN" displayName="BLOOD UREA NITROGEN" /> <statusCode code="completed" /> <effectiveTime value="719519248316" / > <value unit="mg/dL" xsi:type="PQ" value="16" /> < referenceRange> <observationRange> <text>7-20</text> </observationRange> </referenceRange> </observation> </component> <component> <observation moodCode="EVN" classCode= "OBS"> <templateId root="216.840.1.233310.10..4.2" /> < id nullFlavor="NA" /> <code codeSystem="local" code="CREAT" displayName ="CREATININE" /> <statusCode code="completed" /> < effectiveTime value="940785063675" /> <value unit="mg/dL" xsi:type="PQ " value="0.9" /> <referenceRange> <observationRange> <text>0.6-1.0</text> </observationRange> </ referenceRange> </observation> </component> <component> <observation moodCode="EVN" classCode="OBS"> <templateId root= "216.840.1.380324.10..22.4.2" /> <id nullFlavor="NA" /> < code codeSystem="local" code="NA" displayName="SODIUM" /> <statusCode code="completed" /> <effectiveTime value="413189441775" /> < value unit="mmol/L" xsi:type="PQ" value="144" /> <referenceRange> <observationRange> <text>135-148</text> </ observationRange> </referenceRange> </observation> </ component> <component> <observation moodCode="EVN" classCode="OBS"> <templateId root="216.840.1.331825...4.2" /> <id nullFlavor="NA" /> <code codeSystem="local" code="CL" displayName= "CHLORIDE" /> <statusCode code="completed" /> <effectiveTime value="414871823607" /> <value unit="mmol/L" xsi:type="PQ" value="103" /> <referenceRange> <observationRange> <text>98 -110</text> </observationRange> </referenceRange> </ observation> </component> <component> <observation moodCode= "EVN" classCode="OBS"> <templateId root="16.840.1.345962.10..22.4.2 " /> <id nullFlavor="NA" /> <code codeSystem="local" code="AST " displayName="AST/SGOT" /> <statusCode code="completed" /> < effectiveTime value="900904868317" /> <value unit="Units/L" xsi:type= "PQ" value="14" /> <referenceRange> <observationRange> <text>10-37</text> </observationRange> </ referenceRange> </observation> </component> <component> <observation moodCode="EVN" classCode="OBS"> <templateId root= "216.840.1.343400.10..22.4.2" /> <id nullFlavor="NA" /> < code codeSystem="local" code="ALT" displayName="ALT/SGPT" /> < statusCode code="completed" /> <effectiveTime value="842027228922" /> <value unit="Units/L" xsi:type="PQ" value="9" /> < referenceRange> <observationRange> <text>< 66</text> </observationRange> </referenceRange> </observation > </component> <component> <observation moodCode="EVN" classCode="OBS"> <templateId root="06.27.840.1.900641.10.4.2" /> <id nullFlavor="NA" /> <code codeSystem="local" code="CO2" displayName="CARBON DIOXIDE" /> <statusCode code="completed" /> <effectiveTime value="985920636590" /> <value unit="mmol/L" xsi:type ="PQ" value="30" /> <referenceRange> <observationRange> <text>21-32</text> </observationRange> </ referenceRange> </observation> </component> <component> <observation moodCode="EVN" classCode="OBS"> <templateId root= "06.27.840.1.648224.10..4.2" /> <id nullFlavor="NA" /> < code codeSystem="local" code="TP" displayName="TOTAL PROTEIN" /> < statusCode code="completed" /> <effectiveTime value="497246636627" /> <value unit="gm/dL" xsi:type="PQ" value="6.8" /> < referenceRange> <observationRange> <text>6.4-8.2</text> </observationRange> </referenceRange> </observation > </component> <component> <observation moodCode="EVN" classCode="OBS"> <templateId root="216.840.1.482349.10..22.4.2" /> <id nullFlavor="NA" /> <code codeSystem="local" code="ALB" displayName="ALBUMIN" /> <statusCode code="completed" /> < effectiveTime value="304001096395" /> <value unit="gm/dL" xsi:type="PQ " value="3.6" /> <referenceRange> <observationRange> <text>3.4-5.0</text> </observationRange> </ referenceRange> </observation> </component> <component> <observation moodCode="EVN" classCode="OBS"> <templateId root= "16.840.1.033373.10...4.2" /> <id nullFlavor="NA" /> < code codeSystem="local" code="BILTOT" displayName="BILI TOTAL" /> < statusCode code="completed" /> <effectiveTime value="573354357519" /> <value unit="mg/dL" xsi:type="PQ" value="0.3" /> < referenceRange> <observationRange> <text>0.0-1.0</text> </observationRange> </referenceRange> </observation > </component> <component> <observation moodCode="EVN" classCode="OBS"> <templateId root="216.840.1.944796.10..22.4.2" /> <id nullFlavor="NA" /> <code codeSystem="local" code="ALKP" displayName="ALKALINE PHOSPHATASE TOTAL" /> <statusCode code="completed " /> <effectiveTime value="571077875941" /> <value unit="IU/L " xsi:type="PQ" value="66" /> <referenceRange> < observationRange> <text>45-117</text> </observationRange > </referenceRange> </observation> </component> </ organizer> </entry> <entry> <organizer moodCode="EVN" classCode="BATTERY"> <templateId root="216.840.1.872751.10.20.22.4.1" /> <id nullFlavor= "NA" /> <code codeSystem="local" code="TSH" displayName="THYROID STIM HORMONE (TSH)" /> <statusCode code="completed" /> <component> < observation moodCode="EVN" classCode="OBS"> <templateId root= "216.840.1.841579.10.20.22.4.2" /> <id nullFlavor="NA" /> < code codeSystem="local" code="TSH" displayName="THYROID STIM HORMONE (TSH)" /> <statusCode code="completed" /> <effectiveTime value= "431620580315" /> <value unit="uIU/mL" xsi:type="PQ" value="2.48" /> <referenceRange> <observationRange> <text>0.34- 4.82</text> </observationRange> </referenceRange> </ observation> </component> </organizer> </entry> <entry> <organizer moodCode="EVN" classCode="BATTERY"> <templateId root= "216.840.1.961341.10.20.22.4.1" /> <id nullFlavor="NA" /> <code codeSystem="local" code="ORD68" displayName="Urinalysis" /> <statusCode code="completed" /> <component> <observation moodCode="EVN" classCode="OBS"> <templateId root="216.840.1.565328.02.28.22.4.2" /> <id nullFlavor="NA" /> <code codeSystem="local" code="Nls6143 " displayName="Icotest" /> <statusCode code="completed" /> < effectiveTime value="638936679160" /> <value unit="" xsi:type="PQ" value="N/A" /> <interpretationCode codeSystem="local" code="A" /> <referenceRange> <observationRange> <text>Negative< /text> </observationRange> </referenceRange> </ observation> </component> <component> <observation moodCode= "EVN" classCode="OBS"> <templateId root="06.27.840.1.020729.02.28.224.2 " /> <id nullFlavor="NA" /> <code codeSystem="local" code= "Rib968" displayName="Urine Crystals" /> <statusCode code="completed" / > <effectiveTime value="366987412888" /> <value unit="" xsi: type="PQ" value="Amorphous material: abundant/HPF" /> <referenceRange> <observationRange> <text /> </ observationRange> </referenceRange> </observation> </ component> <component> <observation moodCode="EVN" classCode="OBS"> <templateId root="216.840.1.747702.02.28.22.4.2" /> <id nullFlavor="NA" /> <code codeSystem="local" code="Bbl145" displayName= "Urine Volume" /> <statusCode code="completed" /> < effectiveTime value="578588118791" /> <value unit="" xsi:type="PQ" value="Urine Volume Sufficient (10mL)" /> <referenceRange> < observationRange> <text /> </observationRange> </referenceRange> </observation> </component> <component> <observation moodCode="EVN" classCode="OBS"> <templateId root= "16.840.1.555144.10..22.4.2" /> <id nullFlavor="NA" /> < code codeSystem="local" code="Cqi412" displayName="Urine-Appearance" /> <statusCode code="completed" /> <effectiveTime value="560692499150" / > <value unit="" xsi:type="PQ" value="Cloudy" /> < interpretationCode codeSystem="local" code="A" /> <referenceRange> <observationRange> <text>Clear</text> </ observationRange> </referenceRange> </observation> </ component> <component> <observation moodCode="EVN" classCode="OBS"> <templateId root="06.27.840.1.828829.10..4.2" /> <id nullFlavor="NA" /> <code codeSystem="local" code="Ybv642" displayName= "Urine-Bacteria" /> <statusCode code="completed" /> < effectiveTime value="304390154891" /> <value unit="" xsi:type="PQ" value="Trace" /> <interpretationCode codeSystem="local" code="A" /> <referenceRange> <observationRange> <text> </text > </observationRange> </referenceRange> </observation > </component> <component> <observation moodCode="EVN" classCode="OBS"> <templateId root="16.840.1.697652.10..22.4.2" /> <id nullFlavor="NA" /> <code codeSystem="local" code="Akh345" displayName="Urine-Bilirubin" /> <statusCode code="completed" /> <effectiveTime value="943705776521" /> <value unit="" xsi:type="PQ " value="Negative" /> <referenceRange> <observationRange> <text>Negative</text> </observationRange> </ referenceRange> </observation> </component> <component> <observation moodCode="EVN" classCode="OBS"> <templateId root= "216.840.1.747991.10.22.4.2" /> <id nullFlavor="NA" /> < code codeSystem="local" code="Ubd726" displayName="Urine-Blood" /> < statusCode code="completed" /> <effectiveTime value="955004416679" /> <value unit="" xsi:type="PQ" value="Negative" /> < referenceRange> <observationRange> <text>Negative</text > </observationRange> </referenceRange> </observation > </component> <component> <observation moodCode="EVN" classCode="OBS"> <templateId root="06.27.840.1.775072.22.4.2" /> <id nullFlavor="NA" /> <code codeSystem="local" code="Arw259" displayName="Urine-Color" /> <statusCode code="completed" /> < effectiveTime value="612906277864" /> <value unit="" xsi:type="PQ" value="Yellow" /> <referenceRange> <observationRange> <text>Colorless-Lt. Yellow</text> </observationRange> </referenceRange> </observation> </component> <component> <observation moodCode="EVN" classCode="OBS"> <templateId root= "06.27.840.1.890462.02.28.224.2" /> <id nullFlavor="NA" /> < code codeSystem="local" code="Ijg954" displayName="Urine-Epithelial Cells" /> <statusCode code="completed" /> <effectiveTime value= "106265626276" /> <value unit="" xsi:type="PQ" value="5-10/HPF" /> <interpretationCode codeSystem="local" code="A" /> < referenceRange> <observationRange> <text> </text> </observationRange> </referenceRange> </observation> </component> <component> <observation moodCode="EVN" classCode="OBS "> <templateId root="2.16.840.1.490047.02.28.224.2" /> <id nullFlavor="NA" /> <code codeSystem="local" code="Oit487" displayName= "Urine-Glucose" /> <statusCode code="completed" /> < effectiveTime value="235156719887" /> <value unit="" xsi:type="PQ" value="Negative" /> <referenceRange> <observationRange> <text>Negative</text> </observationRange> </ referenceRange> </observation> </component> <component> <observation moodCode="EVN" classCode="OBS"> <templateId root= "2.16.840.1.400219.02.28.22.4.2" /> <id nullFlavor="NA" /> < code codeSystem="local" code="Hya257" displayName="Urine-Ketones" /> < statusCode code="completed" /> <effectiveTime value="858066499767" /> <value unit="" xsi:type="PQ" value="Negative" /> < referenceRange> <observationRange> <text>Negative</text > </observationRange> </referenceRange> </observation > </component> <component> <observation moodCode="EVN" classCode="OBS"> <templateId root="216.840.1.270809.10..22.4.2" /> <id nullFlavor="NA" /> <code codeSystem="local" code="Zuw192" displayName="Urine-Leukocytes" /> <statusCode code="completed" /> <effectiveTime value="257682752662" /> <value unit="" xsi:type="PQ " value="1+" /> <interpretationCode codeSystem="local" code="A" /> <referenceRange> <observationRange> <text>Negative </text> </observationRange> </referenceRange> </ observation> </component> <component> <observation moodCode= "EVN" classCode="OBS"> <templateId root="216.840.1.689588...4.2 " /> <id nullFlavor="NA" /> <code codeSystem="local" code= "Mmd566" displayName="Urine-Nitrite" /> <statusCode code="completed" / > <effectiveTime value="214012756955" /> <value unit="" xsi: type="PQ" value="Negative" /> <referenceRange> < observationRange> <text>Negative</text> </ observationRange> </referenceRange> </observation> </ component> <component> <observation moodCode="EVN" classCode="OBS"> <templateId root="216.840.1.349974.10..22.4.2" /> <id nullFlavor="NA" /> <code codeSystem="local" code="Lav540" displayName= "Urine-Other" /> <statusCode code="completed" /> < effectiveTime value="986935185885" /> <value unit="" xsi:type="PQ" value=" Urine Saved if Culture Needed (48hrs from time of collection)" /> <interpretationCode codeSystem="local" code="A" /> <referenceRange > <observationRange> <text> </text> </ observationRange> </referenceRange> </observation> </ component> <component> <observation moodCode="EVN" classCode="OBS"> <templateId root="16.840.1.188987.10.22.4.2" /> <id nullFlavor="NA" /> <code codeSystem="local" code="Wqg846" displayName= "Urine-pH" /> <statusCode code="completed" /> <effectiveTime value="284695570255" /> <value unit="" xsi:type="PQ" value="7.5" /> <referenceRange> <observationRange> <text>5-8.5</ text> </observationRange> </referenceRange> </ observation> </component> <component> <observation moodCode= "EVN" classCode="OBS"> <templateId root="06.27.840.1.837416.02.28.22.4.2 " /> <id nullFlavor="NA" /> <code codeSystem="local" code= "Tib079" displayName="Urine-Protein" /> <statusCode code="completed" / > <effectiveTime value="068797153518" /> <value unit="" xsi: type="PQ" value="Negative" /> <referenceRange> < observationRange> <text>Negative</text> </ observationRange> </referenceRange> </observation> </ component> <component> <observation moodCode="EVN" classCode="OBS"> <templateId root="06.27.840.1.647407.1022.4.2" /> <id nullFlavor="NA" /> <code codeSystem="local" code="Fog510" displayName= "Urine-RBC" /> <statusCode code="completed" /> <effectiveTime value="494019540538" /> <value unit="" xsi:type="PQ" value="0-2/HPF" / > <interpretationCode codeSystem="local" code="A" /> < referenceRange> <observationRange> <text> </text> </observationRange> </referenceRange> </observation> </component> <component> <observation moodCode="EVN" classCode="OBS "> <templateId root="06.27.840.1.786039.10..22.4.2" /> <id nullFlavor="NA" /> <code codeSystem="local" code="Auv022" displayName= "Urine-Specific [place]" /> <statusCode code="completed" /> < effectiveTime value="385181049251" /> <value unit="" xsi:type="PQ" value="1.020" /> <referenceRange> <observationRange> <text>1.000-1.030</text> </observationRange> </ referenceRange> </observation> </component> <component> <observation moodCode="EVN" classCode="OBS"> <templateId root= "06.27.840.1.485930.10..22.4.2" /> <id nullFlavor="NA" /> < code codeSystem="local" code="Was091" displayName="Urine-WBC" /> < statusCode code="completed" /> <effectiveTime value="024926984406" /> <value unit="" xsi:type="PQ" value="2-5/HPF" /> < interpretationCode codeSystem="local" code="A" /> <referenceRange> <observationRange> <text> </text> </ observationRange> </referenceRange> </observation> </ component> <component> <observation moodCode="EVN" classCode="OBS"> <templateId root="06.27.840.1.739348.02.28.22.4.2" /> <id nullFlavor="NA" /> <code codeSystem="local" code="Upb191" displayName= "Urobilinogen" /> <statusCode code="completed" /> < effectiveTime value="223432085327" /> <value unit="" xsi:type="PQ" value="0.2" /> <referenceRange> <observationRange> <text>0.2-1.0</text> </observationRange> </ referenceRange> </observation> </component> </organizer> </entry > <entry> <organizer moodCode="EVN" classCode="BATTERY"> <templateId root="840.1.645822.02.28.22.4.1" /> <id nullFlavor="NA" /> <code codeSystem="local" code="EDO642" displayName="XM (2) LRPC" /> <statusCode code="completed" /> <component> <observation moodCode="EVN" classCode="OBS"> <templateId root="06.27.840.1.322205.02.28.22.4.2" /> <id nullFlavor="NA" /> <code codeSystem="local" code="Goz932" displayName="CROSSMATCH" /> <statusCode code="completed" /> < effectiveTime value="531259020867" /> <value unit="" xsi:type="PQ" value="COMPATIBLE X 2" /> <referenceRange> <observationRange > <text /> </observationRange> </referenceRange > </observation> </component> <component> <observation moodCode="EVN" classCode="OBS"> <templateId root= "06.27.840.1.715338.02.28.22.4.2" /> <id nullFlavor="NA" /> < code codeSystem="local" code="Res87" displayName="Hct" /> <statusCode code="completed" /> <effectiveTime value="332772142963" /> < value unit="%" xsi:type="PQ" value="26.9" /> <interpretationCode codeSystem="local" code="L" /> <referenceRange> < observationRange> <text>36.0-46.0</text> </ observationRange> </referenceRange> </observation> </ component> <component> <observation moodCode="EVN" classCode="OBS"> <templateId root="2.840.1.961404.10...4.2" /> <id nullFlavor="NA" /> <code codeSystem="local" code="Sac583" displayName= "Hgb" /> <statusCode code="completed" /> <effectiveTime value= "919871027473" /> <value unit="g/dL" xsi:type="PQ" value="7.6" /> <interpretationCode codeSystem="local" code="L" /> <referenceRange > <observationRange> <text>13.0-15.0</text> < /observationRange> </referenceRange> </observation> </ component> </organizer> </entry> <entry> <organizer moodCode="EVN" classCode="BATTERY"> <templateId root="06.27.840.1.419051.10..22.4.1" /> <id nullFlavor="NA" /> <code codeSystem="local" code="OXX1288" displayName="Leukoreduced Packed RBC Unit Checkout" /> <statusCode code= "completed" /> <component> <observation moodCode="EVN" classCode= "OBS"> <templateId root="06.27.840.1.854519.10.20.22.4.2" /> < id nullFlavor="NA" /> <code codeSystem="local" code="Flg669" displayName="LRPRBC Checkout" /> <statusCode code="completed" /> <effectiveTime value="955958484358" /> <value unit="" xsi:type="PQ " value="Checked Out." /> <referenceRange> <observationRange > <text /> </observationRange> </referenceRange > </observation> </component> </organizer> </entry> <entry> <organizer moodCode="EVN" classCode="BATTERY"> <templateId root= "216.840.1.509000.10..22.4.1" /> <id nullFlavor="NA" /> <code codeSystem="local" code="OSF952" displayName="Ferritin" /> <statusCode code ="completed" /> <component> <observation moodCode="EVN" classCode= "OBS"> <templateId root="216.840.1.998735.10..22.4.2" /> < id nullFlavor="NA" /> <code codeSystem="local" code="Gdy500" displayName="Ferritin" /> <statusCode code="completed" /> < effectiveTime value="255313139586" /> <value unit="ng/mL" xsi:type="PQ " value="3.90" /> <interpretationCode codeSystem="local" code="L" /> <referenceRange> <observationRange> <text>4.63- 204.00</text> </observationRange> </referenceRange> < /observation> </component> </organizer> </entry> <entry> < organizer moodCode="EVN" classCode="BATTERY"> <templateId root= "16.840.1.832888.10..22.4.1" /> <id nullFlavor="NA" /> <code codeSystem="local" code="AQU385" displayName="VIT B-12" /> <statusCode code ="completed" /> <component> <observation moodCode="EVN" classCode= "OBS"> <templateId root="216.840.1.877527.10..22.4.2" /> < id nullFlavor="NA" /> <code codeSystem="local" code="Tad081" displayName="Vitamin B12" /> <statusCode code="completed" /> < effectiveTime value="301661440389" /> <value unit="pg/mL" xsi:type="PQ " value="221.00" /> <referenceRange> <observationRange> <text>213.00-816.00</text> </observationRange> </ referenceRange> </observation> </component> </organizer> </entry > <entry> <organizer moodCode="EVN" classCode="BATTERY"> <templateId root="216.840.1.529171.10..22.4.1" /> <id nullFlavor="NA" /> <code codeSystem="local" code="XOQ582" displayName="Folate" /> <statusCode code= "completed" /> <component> <observation moodCode="EVN" classCode= "OBS"> <templateId root="216.840.1.288327.10..22.4.2" /> < id nullFlavor="NA" /> <code codeSystem="local" code="Vbf884" displayName="Folate" /> <statusCode code="completed" /> < effectiveTime value="583857379672" /> <value unit="ng/mL" xsi:type="PQ " value="15.40" /> <referenceRange> <observationRange> <text>7.00-31.40</text> </observationRange> </ referenceRange> </observation> </component> </organizer> </entry > <entry> <organizer moodCode="EVN" classCode="BATTERY"> <templateId root="216.840.1.939085.10..4.1" /> <id nullFlavor="NA" /> <code codeSystem="local" code="CVR5083" displayName="Leukoreduced Packed RBC Unit Checkout" /> <statusCode code="completed" /> <component> < observation moodCode="EVN" classCode="OBS"> <templateId root= "216.840.1.661629...4.2" /> <id nullFlavor="NA" /> < code codeSystem="local" code="Sja312" displayName="LRPRBC Checkout" /> <statusCode code="completed" /> <effectiveTime value="244547346327" /> <value unit="" xsi:type="PQ" value="Checked Out." /> < referenceRange> <observationRange> <text /> < /observationRange> </referenceRange> </observation> </ component> </organizer> </entry> <entry> <organizer moodCode="EVN" classCode="BATTERY"> <templateId root="216.840.1.998780.10..4.1" /> <id nullFlavor="NA" /> <code codeSystem="local" code="ECW214" displayName="Rapid Drug Screen,Medical" /> <statusCode code="completed" /> <component> <observation moodCode="EVN" classCode="OBS"> < templateId root="216.840.1.018758.10..4.2" /> <id nullFlavor="NA " /> <code codeSystem="local" code="Vcm044" displayName="Amphetamine" / > <statusCode code="completed" /> <effectiveTime value= "737581010281" /> <value unit="" xsi:type="PQ" value="NEGATIVE" /> <referenceRange> <observationRange> <text>NEGATIVE </text> </observationRange> </referenceRange> </ observation> </component> <component> <observation moodCode= "EVN" classCode="OBS"> <templateId root="16.840.1.631158.02.28.22.4.2 " /> <id nullFlavor="NA" /> <code codeSystem="local" code= "Ova794" displayName="Barbiturates" /> <statusCode code="completed" /> <effectiveTime value="473784059740" /> <value unit="" xsi: type="PQ" value="NEGATIVE" /> <referenceRange> < observationRange> <text>NEGATIVE</text> </ observationRange> </referenceRange> </observation> </ component> <component> <observation moodCode="EVN" classCode="OBS"> <templateId root="06.27.840.1.755007.02.28.22.4.2" /> <id nullFlavor="NA" /> <code codeSystem="local" code="Kqu577" displayName= "Benzodiazepines" /> <statusCode code="completed" /> < effectiveTime value="393247483656" /> <value unit="" xsi:type="PQ" value="NEGATIVE" /> <referenceRange> <observationRange> <text>NEGATIVE</text> </observationRange> </ referenceRange> </observation> </component> <component> <observation moodCode="EVN" classCode="OBS"> <templateId root= "16.840.1.363422.22.4.2" /> <id nullFlavor="NA" /> < code codeSystem="local" code="Rhd310" displayName="Cocaine" /> < statusCode code="completed" /> <effectiveTime value="515900654552" /> <value unit="" xsi:type="PQ" value="NEGATIVE" /> < referenceRange> <observationRange> <text>NEGATIVE</text > </observationRange> </referenceRange> </observation > </component> <component> <observation moodCode="EVN" classCode="OBS"> <templateId root="16.840.1.181725.02.28.22.4.2" /> <id nullFlavor="NA" /> <code codeSystem="local" code="Rsm782" displayName="Marijuana" /> <statusCode code="completed" /> < effectiveTime value="003942288490" /> <value unit="" xsi:type="PQ" value="NEGATIVE" /> <referenceRange> <observationRange> <text>NEGATIVE</text> </observationRange> </ referenceRange> </observation> </component> <component> <observation moodCode="EVN" classCode="OBS"> <templateId root= "06.27.840.1.409765.02.28.22.4.2" /> <id nullFlavor="NA" /> < code codeSystem="local" code="Jfw180" displayName="Methylenedioxymethamphetamine " /> <statusCode code="completed" /> <effectiveTime value= "120771656816" /> <value unit="" xsi:type="PQ" value="NEGATIVE" /> <referenceRange> <observationRange> <text>NEGATIVE </text> </observationRange> </referenceRange> </ observation> </component> <component> <observation moodCode= "EVN" classCode="OBS"> <templateId root="16.840.1.746305.02.28.22.4.2 " /> <id nullFlavor="NA" /> <code codeSystem="local" code= "Lgo857" displayName="Opiates" /> <statusCode code="completed" /> <effectiveTime value="139546080105" /> <value unit="" xsi:type="PQ " value="NEGATIVE" /> <referenceRange> <observationRange> <text>NEGATIVE</text> </observationRange> </ referenceRange> </observation> </component> <component> <observation moodCode="EVN" classCode="OBS"> <templateId root= "06.27.840.1.592671.10.22.4.2" /> <id nullFlavor="NA" /> < code codeSystem="local" code="Kev857" displayName="Oxycodone" /> < statusCode code="completed" /> <effectiveTime value="780726800310" /> <value unit="" xsi:type="PQ" value="NEGATIVE" /> < referenceRange> <observationRange> <text>NEGATIVE</text > </observationRange> </referenceRange> </observation > </component> <component> <observation moodCode="EVN" classCode="OBS"> <templateId root="06.27.840.1.681008.10..4.2" /> <id nullFlavor="NA" /> <code codeSystem="local" code="Rgo476" displayName="Phencyclidine" /> <statusCode code="completed" /> <effectiveTime value="138838441086" /> <value unit="" xsi:type="PQ" value="NEGATIVE" /> <referenceRange> <observationRange> <text>NEGATIVE</text> </observationRange> </ referenceRange> </observation> </component> <component> <observation moodCode="EVN" classCode="OBS"> <templateId root= "06.27.840.1.446286.4.2" /> <id nullFlavor="NA" /> < code codeSystem="local" code="Wez993" displayName="Propoxyphene" /> < statusCode code="completed" /> <effectiveTime value="204232124750" /> <value unit="" xsi:type="PQ" value="NEGATIVE" /> < referenceRange> <observationRange> <text>NEGATIVE</text > </observationRange> </referenceRange> </observation > </component> <component> <observation moodCode="EVN" classCode="OBS"> <templateId root="16.840.1.296970.02.28.224.2" /> <id nullFlavor="NA" /> <code codeSystem="local" code="Nin791" displayName="Tricyclic Antidepressant" /> <statusCode code="completed" /> <effectiveTime value="309235301231" /> <value unit="" xsi: type="PQ" value="NEGATIVE" /> <referenceRange> < observationRange> <text>NEGATIVE</text> </ observationRange> </referenceRange> </observation> </ component> </organizer> </entry> <entry> <organizer moodCode="EVN" classCode="BATTERY"> <templateId root="16.840.1.086320.02.28.22.4.1" /> <id nullFlavor="NA" /> <code codeSystem="local" code="ORD92" displayName="Surgical Pathology" /> <statusCode code="completed" /> < component> <observation moodCode="EVN" classCode="OBS"> < templateId root="16.840.1.866061.02.28.22.4.2" /> <id nullFlavor="NA " /> <code codeSystem="local" code="Rcy4176" displayName="Surg Path" / > <statusCode code="completed" /> <effectiveTime value= "297472016533" /> <value unit="" xsi:type="PQ" value="Sent to [facility]" /> <referenceRange> <observationRange> <text /> </observationRange> </referenceRange> </ observation> </component> </organizer> </entry> <entry> <organizer moodCode="EVN" classCode="BATTERY"> <templateId root= "06.27.840.1.445707.10.22.4.1" /> <id nullFlavor="NA" /> <code codeSystem="local" code="WUC061" displayName="IFOBT Occult Blood" /> < statusCode code="completed" /> <component> <observation moodCode= "EVN" classCode="OBS"> <templateId root="06.27.840.1.817387.10..4.2 " /> <id nullFlavor="NA" /> <code codeSystem="local" code= "Pnr192" displayName="IFOBT Occult Blood" /> <statusCode code= "completed" /> <effectiveTime value="301470901371" /> <value unit="" xsi:type="PQ" value="NEGATIVE" /> <referenceRange> < observationRange> <text>Negative</text> </ observationRange> </referenceRange> </observation> </ component> </organizer> </entry> <entry> <organizer moodCode="EVN" classCode="BATTERY"> <templateId root="06.27.840.1.403916.10...4.1" /> <id nullFlavor="NA" /> <code codeSystem="local" code="ARP629" displayName="HH" /> <statusCode code="completed" /> <component> <observation moodCode="EVN" classCode="OBS"> <templateId root= "06.27.830.1.158651.10..22.4.2" /> <id nullFlavor="NA" /> < code codeSystem="local" code="Res87" displayName="Hct" /> <statusCode code="completed" /> <effectiveTime value="772767321695" /> < value unit="%" xsi:type="PQ" value="31.7" /> <interpretationCode codeSystem="local" code="L" /> <referenceRange> < observationRange> <text>36.0-46.0</text> </ observationRange> </referenceRange> </observation> </ component> <component> <observation moodCode="EVN" classCode="OBS"> <templateId root="06.27.840.1.174785.02.28.22.4.2" /> <id nullFlavor="NA" /> <code codeSystem="local" code="Lre749" displayName= "Hgb" /> <statusCode code="completed" /> <effectiveTime value= "152736355316" /> <value unit="g/dL" xsi:type="PQ" value="9.4" /> <interpretationCode codeSystem="local" code="L" /> <referenceRange > <observationRange> <text>13.0-15.0</text> < /observationRange> </referenceRange> </observation> </ component> </organizer> </entry> <entry> <organizer moodCode="EVN" classCode="BATTERY"> <templateId root="216.840.1.764086.10.20.22.4.1" /> <id nullFlavor="NA" /> <code codeSystem="local" code="ORI989" displayName="IFOBT Occult Blood" /> <statusCode code="completed" /> < component> <observation moodCode="EVN" classCode="OBS"> < templateId root="216.840.1.693879.10..4.2" /> <id nullFlavor="NA " /> <code codeSystem="local" code="Fpx455" displayName="IFOBT Occult Blood" /> <statusCode code="completed" /> <effectiveTime value ="079806547761" /> <value unit="" xsi:type="PQ" value="NEGATIVE" /> <referenceRange> <observationRange> <text> Negative</text> </observationRange> </referenceRange> </observation> </component> </organizer> </entry> <entry> < organizer moodCode="EVN" classCode="BATTERY"> <templateId root= "16.840.1.069634.02.28.22.4.1" /> <id nullFlavor="NA" /> <code codeSystem="local" code="ORD2" displayName="CBC with Auto Diff" /> < statusCode code="completed" /> <component> <observation moodCode= "EVN" classCode="OBS"> <templateId root="216.840.1.451563.10..4.2 " /> <id nullFlavor="NA" /> <code codeSystem="local" code= "Dyf360" displayName="Baso%" /> <statusCode code="completed" /> <effectiveTime value="414300390437" /> <value unit="%" xsi: type="PQ" value="1.10" /> <referenceRange> <observationRange > <text>0.00-2.50</text> </observationRange> </ referenceRange> </observation> </component> <component> <observation moodCode="EVN" classCode="OBS"> <templateId root= "216.840.1.934262.10.4.2" /> <id nullFlavor="NA" /> < code codeSystem="local" code="Css278" displayName="Eos" /> <statusCode code="completed" /> <effectiveTime value="018725939670" /> < value unit="K/uL" xsi:type="PQ" value="0.3" /> <referenceRange> <observationRange> <text>0.0-0.7</text> </ observationRange> </referenceRange> </observation> </ component> <component> <observation moodCode="EVN" classCode="OBS"> <templateId root="2.16.840.1.828204.02.28.22.4.2" /> <id nullFlavor="NA" /> <code codeSystem="local" code="Ytj658" displayName= "Eos%" /> <statusCode code="completed" /> <effectiveTime value="" /> <value unit="%" xsi:type="PQ" value="4.2" / > <referenceRange> <observationRange> <text>0.0 -7.0</text> </observationRange> </referenceRange> </ observation> </component> <component> <observation moodCode= "EVN" classCode="OBS"> <templateId root="2.16.840.1.810973.02.28.22.4.2 " /> <id nullFlavor="NA" /> <code codeSystem="local" code= "Res87" displayName="Hct" /> <statusCode code="completed" /> < effectiveTime value="306112533773" /> <value unit="%" xsi:type="PQ " value="34.3" /> <interpretationCode codeSystem="local" code="L" /> <referenceRange> <observationRange> <text>36.0- 46.0</text> </observationRange> </referenceRange> </ observation> </component> <component> <observation moodCode= "EVN" classCode="OBS"> <templateId root="216.840.1.028303.10.22.4.2 " /> <id nullFlavor="NA" /> <code codeSystem="local" code= "Fgn930" displayName="Hgb" /> <statusCode code="completed" /> <effectiveTime value="" /> <value unit="g/dL" xsi:type="PQ " value="10.5" /> <interpretationCode codeSystem="local" code="L" /> <referenceRange> <observationRange> <text>13.0- 15.0</text> </observationRange> </referenceRange> </ observation> </component> <component> <observation moodCode= "EVN" classCode="OBS"> <templateId root="216.840.1.221147.02.28.22.4.2 " /> <id nullFlavor="NA" /> <code codeSystem="local" code= "Imk959" displayName="Lym" /> <statusCode code="completed" /> <effectiveTime value="882947622944" /> <value unit="K/uL" xsi:type="PQ " value="1.98" /> <referenceRange> <observationRange> <text>0.60-3.40</text> </observationRange> </ referenceRange> </observation> </component> <component> <observation moodCode="EVN" classCode="OBS"> <templateId root= "216.840.1.380552.10.2022.4.2" /> <id nullFlavor="NA" /> < code codeSystem="local" code="Brc983" displayName="Lym%" /> < statusCode code="completed" /> <effectiveTime value="165017042107" /> <value unit="%" xsi:type="PQ" value="26.9" /> < referenceRange> <observationRange> <text>10.0-50.0</text > </observationRange> </referenceRange> </observation > </component> <component> <observation moodCode="EVN" classCode="OBS"> <templateId root="2.16.840.1.303165.10..22.4.2" /> <id nullFlavor="NA" /> <code codeSystem="local" code="Res89" displayName="MCH" /> <statusCode code="completed" /> < effectiveTime value="851410369451" /> <value unit="pg" xsi:type="PQ" value="22.5" /> <interpretationCode codeSystem="local" code="L" /> <referenceRange> <observationRange> <text>27.0- 31.0</text> </observationRange> </referenceRange> </ observation> </component> <component> <observation moodCode= "EVN" classCode="OBS"> <templateId root="216.840.1.511424.10.20.22.4.2 " /> <id nullFlavor="NA" /> <code codeSystem="local" code= "Res90" displayName="MCHC" /> <statusCode code="completed" /> <effectiveTime value="078079345759" /> <value unit="g/dL" xsi:type="PQ " value="30.6" /> <interpretationCode codeSystem="local" code="L" /> <referenceRange> <observationRange> <text>32.0- 36.0</text> </observationRange> </referenceRange> </ observation> </component> <component> <observation moodCode= "EVN" classCode="OBS"> <templateId root="16.840.1.457824.10.20.22.4.2 " /> <id nullFlavor="NA" /> <code codeSystem="local" code= "Res88" displayName="MCV" /> <statusCode code="completed" /> < effectiveTime value="" /> <value unit="fL" xsi:type="PQ" value="73.4" /> <interpretationCode codeSystem="local" code="L" /> <referenceRange> <observationRange> <text>80.0- 97.0</text> </observationRange> </referenceRange> </ observation> </component> <component> <observation moodCode= "EVN" classCode="OBS"> <templateId root="06.27.840.1.556698.10.22.4.2 " /> <id nullFlavor="NA" /> <code codeSystem="local" code= "Bnn011" displayName="[place]%" /> <statusCode code="completed" /> <effectiveTime value="" /> <value unit="%" xsi: type="PQ" value="7.6" /> <referenceRange> <observationRange > <text>0.0-12.0</text> </observationRange> </ referenceRange> </observation> </component> <component> <observation moodCode="EVN" classCode="OBS"> <templateId root= "06.27.840.1.917936.10..22.4.2" /> <id nullFlavor="NA" /> < code codeSystem="local" code="Met388" displayName="MPV" /> <statusCode code="completed" /> <effectiveTime value="" /> < value unit="fL" xsi:type="PQ" value="11.1" /> <interpretationCode codeSystem="local" code="H" /> <referenceRange> < observationRange> <text>7.4-10.0</text> </ observationRange> </referenceRange> </observation> </ component> <component> <observation moodCode="EVN" classCode="OBS"> <templateId root="216.840.1.635421.10.20.22.4.2" /> <id nullFlavor="NA" /> <code codeSystem="local" code="Xpx981" displayName= "Julianne%" /> <statusCode code="completed" /> <effectiveTime value="287609039942" /> <value unit="%" xsi:type="PQ" value="60.2" /> <referenceRange> <observationRange> <text> 37.0-80.0</text> </observationRange> </referenceRange> </observation> </component> <component> <observation moodCode="EVN" classCode="OBS"> <templateId root= "06.27.840.1.047862.1022.4.2" /> <id nullFlavor="NA" /> < code codeSystem="local" code="Res97" displayName="Plt" /> <statusCode code="completed" /> <effectiveTime value="476540023407" /> < value unit="K/uL" xsi:type="PQ" value="222" /> <referenceRange> <observationRange> <text>150-400</text> </ observationRange> </referenceRange> </observation> </ component> <component> <observation moodCode="EVN" classCode="OBS"> <templateId root="16.840.1.176171.10.20.22.4.2" /> <id nullFlavor="NA" /> <code codeSystem="local" code="Zsf023" displayName= "RBC" /> <statusCode code="completed" /> <effectiveTime value= "322257736203" /> <value unit="M/uL" xsi:type="PQ" value="4.67" /> <referenceRange> <observationRange> <text>3.60- 5.00</text> </observationRange> </referenceRange> </ observation> </component> <component> <observation moodCode= "EVN" classCode="OBS"> <templateId root="2.16.840.1.385942.10.20.22.4.2 " /> <id nullFlavor="NA" /> <code codeSystem="local" code= "Res91" displayName="RDW" /> <statusCode code="completed" /> < effectiveTime value="914187259172" /> <value unit="%" xsi:type="PQ " value="22.7" /> <interpretationCode codeSystem="local" code="H" /> <referenceRange> <observationRange> <text>11.6- 14.8</text> </observationRange> </referenceRange> </ observation> </component> <component> <observation moodCode= "EVN" classCode="OBS"> <templateId root="2.16.840.1.016976.10.20.22.4.2 " /> <id nullFlavor="NA" /> <code codeSystem="local" code= "Res98" displayName="WBC" /> <statusCode code="completed" /> < effectiveTime value="695866376960" /> <value unit="K/uL" xsi:type="PQ" value="7.36" /> <referenceRange> <observationRange> <text>5.00-10.00</text> </observationRange> </ referenceRange> </observation> </component> <component> <observation moodCode="EVN" classCode="OBS"> <templateId root= "16.840.1.666107.10.2022.4.2" /> <id nullFlavor="NA" /> < code codeSystem="local" code="Res99" displayName="Julianne" /> <statusCode code="completed" /> <effectiveTime value="" /> < value unit="K/uL" xsi:type="PQ" value="4.43" /> <referenceRange> <observationRange> <text>2.00-6.90</text> </ observationRange> </referenceRange> </observation> </ component> <component> <observation moodCode="EVN" classCode="OBS"> <templateId root="06.27.840.1.686033.22.4.2" /> <id nullFlavor="NA" /> <code codeSystem="local" code="Dgc923" displayName= "[place]" /> <statusCode code="completed" /> <effectiveTime value ="" /> <value unit="K/uL" xsi:type="PQ" value="0.6" /> <referenceRange> <observationRange> <text>0.0-0.9< /text> </observationRange> </referenceRange> </ observation> </component> <component> <observation moodCode= "EVN" classCode="OBS"> <templateId root="06.27.840.1.916067.102022.4.2 " /> <id nullFlavor="NA" /> <code codeSystem="local" code= "Fvq609" displayName="Baso" /> <statusCode code="completed" /> <effectiveTime value="" /> <value unit="K/uL" xsi:type= "PQ" value="0.1" /> <referenceRange> <observationRange> <text>0.0-0.2</text> </observationRange> </ referenceRange> </observation> </component> </organizer> </entry > <entry> <organizer moodCode="EVN" classCode="BATTERY"> <templateId root="216.840.1.742285.10..22.4.1" /> <id nullFlavor="NA" /> <code codeSystem="local" code="79129-9" displayName="Complete urinalysis with reflex to culture" /> <statusCode code="completed" /> <component> < observation moodCode="EVN" classCode="OBS"> <templateId root= "216.840.1.441320.10...4.2" /> <id nullFlavor="NA" /> < code codeSystem="local" code="5778-6" displayName="Urine color determination" / > <statusCode code="completed" /> <effectiveTime value= "466485642153" /> <value unit="" xsi:type="PQ" value="YELLOW" /> <referenceRange> <observationRange> <text>NRG</text > </observationRange> </referenceRange> </observation > </component> <component> <observation moodCode="EVN" classCode="OBS"> <templateId root="216.840.1.693610.10..22.4.2" /> <id nullFlavor="NA" /> <code codeSystem="local" code="47792-1 " displayName="Urine clarity determination" /> <statusCode code= "completed" /> <effectiveTime value="788545032896" /> <value unit="" xsi:type="PQ" value="SLIGHTLY CLOUDY" /> <referenceRange> <observationRange> <text>NRG</text> </ observationRange> </referenceRange> </observation> </ component> <component> <observation moodCode="EVN" classCode="OBS"> <templateId root="216.840.1.776187.10.20.22.4.2" /> <id nullFlavor="NA" /> <code codeSystem="local" code="5803-2" displayName= "Urine pH measurement by test strip" /> <statusCode code="completed" / > <effectiveTime value="141806302732" /> <value unit="" xsi: type="PQ" value="6.5" /> <referenceRange> <observationRange > <text>5-9</text> </observationRange> </ referenceRange> </observation> </component> <component> <observation moodCode="EVN" classCode="OBS"> <templateId root= "216.840.1.246954.10..22.4.2" /> <id nullFlavor="NA" /> < code codeSystem="local" code="5811-5" displayName="Specific gravity of urine by test strip" /> <statusCode code="completed" /> <effectiveTime value="995144533533" /> <value unit="" xsi:type="PQ" value="1.020" /> <referenceRange> <observationRange> <text>1.016 -1.022</text> </observationRange> </referenceRange> < /observation> </component> <component> <observation moodCode= "EVN" classCode="OBS"> <templateId root="16.840.1.148744.10.20.22.4.2 " /> <id nullFlavor="NA" /> <code codeSystem="local" code= "29795-6" displayName="Urine protein assay by test strip, semi-quantitative" /> <statusCode code="completed" /> <effectiveTime value= "542700402808" /> <value unit="" xsi:type="PQ" value="NEGATIVE" /> <referenceRange> <observationRange> <text>NEGATIVE </text> </observationRange> </referenceRange> </ observation> </component> <component> <observation moodCode= "EVN" classCode="OBS"> <templateId root="06.27.840.1.569101.10.20.22.4.2 " /> <id nullFlavor="NA" /> <code codeSystem="local" code= "38933-6" displayName="Urine glucose detection by automated test strip" /> <statusCode code="completed" /> <effectiveTime value="260361415493 " /> <value unit="" xsi:type="PQ" value="NEGATIVE" /> < referenceRange> <observationRange> <text>NEGATIVE</text > </observationRange> </referenceRange> </observation > </component> <component> <observation moodCode="EVN" classCode="OBS"> <templateId root="06.27.840.1.188332.10.22.4.2" /> <id nullFlavor="NA" /> <code codeSystem="local" code="57223-4 " displayName="Erythrocytes detection in urine sediment by light microscopy" /> <statusCode code="completed" /> <effectiveTime value= "980297030884" /> <value unit="" xsi:type="PQ" value="1+" /> < interpretationCode codeSystem="local" code="*" /> <referenceRange> <observationRange> <text>NEGATIVE</text> </ observationRange> </referenceRange> </observation> </ component> <component> <observation moodCode="EVN" classCode="OBS"> <templateId root="06.27.840.1.235553.10.20.22.4.2" /> <id nullFlavor="NA" /> <code codeSystem="local" code="31230-3" displayName= "Urine ketones detection by automated test strip" /> <statusCode code= "completed" /> <effectiveTime value="118653098995" /> <value unit="" xsi:type="PQ" value="NEGATIVE" /> <referenceRange> < observationRange> <text>NEGATIVE</text> </ observationRange> </referenceRange> </observation> </ component> <component> <observation moodCode="EVN" classCode="OBS"> <templateId root="216.840.1.960181.10..22.4.2" /> <id nullFlavor="NA" /> <code codeSystem="local" code="5802-4" displayName= "Urine nitrite detection by test strip" /> <statusCode code="completed " /> <effectiveTime value="082860003610" /> <value unit="" xsi :type="PQ" value="NEGATIVE" /> <referenceRange> < observationRange> <text>NEGATIVE</text> </ observationRange> </referenceRange> </observation> </ component> <component> <observation moodCode="EVN" classCode="OBS"> <templateId root="16.840.1.219566.10..22.4.2" /> <id nullFlavor="NA" /> <code codeSystem="local" code="5770-3" displayName= "Urine total bilirubin detection by test strip" /> <statusCode code= "completed" /> <effectiveTime value="527429786295" /> <value unit="" xsi:type="PQ" value="NEGATIVE" /> <referenceRange> < observationRange> <text>NEGATIVE</text> </ observationRange> </referenceRange> </observation> </ component> <component> <observation moodCode="EVN" classCode="OBS"> <templateId root="216.840.1.035235.10..4.2" /> <id nullFlavor="NA" /> <code codeSystem="local" code="10624-3" displayName= "Urine urobilinogen measurement by automated test strip (mass/volume)" /> <statusCode code="completed" /> <effectiveTime value="936037380817 " /> <value unit="" xsi:type="PQ" value="NORMAL" /> < referenceRange> <observationRange> <text>NORMAL</text> </observationRange> </referenceRange> </observation> </component> <component> <observation moodCode="EVN" classCode ="OBS"> <templateId root="2.16.840.1.499781.10.4.2" /> < id nullFlavor="NA" /> <code codeSystem="local" code="5799-2" displayName="Urine leukocyte esterase detection by dipstick" /> < statusCode code="completed" /> <effectiveTime value="242726348258" /> <value unit="" xsi:type="PQ" value="NEGATIVE" /> < referenceRange> <observationRange> <text>NEGATIVE</text > </observationRange> </referenceRange> </observation > </component> <component> <observation moodCode="EVN" classCode="OBS"> <templateId root="2.16.840.1.939128.10.4.2" /> <id nullFlavor="NA" /> <code codeSystem="local" code="03296-0 " displayName="Automated urine sediment erythrocyte count by microscopy (number/ high power field)" /> <statusCode code="completed" /> < effectiveTime value="671094829963" /> <value unit="[HPF]" xsi:type="PQ " value="" /> <referenceRange> <observationRange> <text>NRG</text> </observationRange> </referenceRange> </observation> </component> <component> <observation moodCode="EVN" classCode="OBS"> <templateId root= "216.840.1.770529.10..22.4.2" /> <id nullFlavor="NA" /> < code codeSystem="local" code="5821-4" displayName="Automated urine sediment leukocyte count by microscopy (number/high power field)" /> < statusCode code="completed" /> <effectiveTime value="047305426834" /> <value unit="" xsi:type="PQ" value="NONE" /> <referenceRange> <observationRange> <text>NRG</text> </ observationRange> </referenceRange> </observation> </ component> <component> <observation moodCode="EVN" classCode="OBS"> <templateId root="216.840.1.754593.10..4.2" /> <id nullFlavor="NA" /> <code codeSystem="local" code="92922-7" displayName= "Bacteria detection in urine sediment by light microscopy" /> < statusCode code="completed" /> <effectiveTime value="002438497432" /> <value unit="" xsi:type="PQ" value="TRACE" /> <referenceRange > <observationRange> <text>NRG</text> </ observationRange> </referenceRange> </observation> </ component> <component> <observation moodCode="EVN" classCode="OBS"> <templateId root="216.840.1.703921.10..22.4.2" /> <id nullFlavor="NA" /> <code codeSystem="local" code="50469-8" displayName= "Squamous epithelial cells detection in urine sediment by light microscopy" /> <statusCode code="completed" /> <effectiveTime value= "085804259706" /> <value unit="" xsi:type="PQ" value="5-10" /> <referenceRange> <observationRange> <text>NRG</text> </observationRange> </referenceRange> </observation> </component> <component> <observation moodCode="EVN" classCode ="OBS"> <templateId root="216.840.1.163602.10.20.22.4.2" /> < id nullFlavor="NA" /> <code codeSystem="local" code="04465-7" displayName="Crystals detection in urine sediment by light microscopy" /> <statusCode code="completed" /> <effectiveTime value="318944566080 " /> <value unit="" xsi:type="PQ" value="PRESENT" /> < interpretationCode codeSystem="local" code="*" /> <referenceRange> <observationRange> <text>NRG</text> </ observationRange> </referenceRange> </observation> </ component> <component> <observation moodCode="EVN" classCode="OBS"> <templateId root="06.27.840.1.822589.02.28.22.4.2" /> <id nullFlavor="NA" /> <code codeSystem="local" code="94016-2" displayName= "Casts detection in urine sediment by light microscopy" /> <statusCode code="completed" /> <effectiveTime value="891724524037" /> < value unit="" xsi:type="PQ" value="NONE" /> <referenceRange> <observationRange> <text>NRG</text> </observationRange > </referenceRange> </observation> </component> < component> <observation moodCode="EVN" classCode="OBS"> < templateId root="16.840.1.183010.10.20.22.4.2" /> <id nullFlavor="NA " /> <code codeSystem="local" code="8247-9" displayName="Mucus detection in urine sediment by light microscopy" /> <statusCode code= "completed" /> <effectiveTime value="506920383507" /> <value unit="" xsi:type="PQ" value="SMALL" /> <interpretationCode codeSystem= "local" code="*" /> <referenceRange> <observationRange> <text>NRG</text> </observationRange> </ referenceRange> </observation> </component> <component> <observation moodCode="EVN" classCode="OBS"> <templateId root= "2.16.840.1.663533.10..22.4.2" /> <id nullFlavor="NA" /> < code codeSystem="local" code="00110-5" displayName="Complete urinalysis with reflex to culture" /> <statusCode code="completed" /> < effectiveTime value="729643109511" /> <value unit="" xsi:type="PQ" value="NO" /> <referenceRange> <observationRange> <text>NRG</text> </observationRange> </referenceRange> </observation> </component> <component> <observation moodCode="EVN" classCode="OBS"> <templateId root= "2.16.840.1.075367.10..22.4.2" /> <id nullFlavor="NA" /> < code codeSystem="local" code="8246-1" displayName="Amorphous sediment detection in urine sediment by light microscopy" /> <statusCode code="completed" /> <effectiveTime value="083134261837" /> <value unit="" xsi: type="PQ" value="FEW RAMIRO URATES" /> <interpretationCode codeSystem= "local" code="*" /> <referenceRange> <observationRange> <text>NRG</text> </observationRange> </ referenceRange> </observation> </component> </organizer> </entry > <entry> <organizer moodCode="EVN" classCode="BATTERY"> <templateId root="2.16.840.1.690539.10..22.4.1" /> <id nullFlavor="NA" /> <code codeSystem="local" code="50349-0" displayName="Urine drug screening test" /> <statusCode code="completed" /> <component> <observation moodCode ="EVN" classCode="OBS"> <templateId root= "2.16.840.1.243109.10..22.4.2" /> <id nullFlavor="NA" /> < code codeSystem="local" code="76546-0" displayName="Urine phencyclidine detection by screening method" /> <statusCode code="completed" /> <effectiveTime value="846578150390" /> <value unit="" xsi:type="PQ " value="NEGATIVE" /> <referenceRange> <observationRange> <text>NEGATIVE</text> </observationRange> </ referenceRange> </observation> </component> <component> <observation moodCode="EVN" classCode="OBS"> <templateId root= "2.16.840.1.975803.10..22.4.2" /> <id nullFlavor="NA" /> < code codeSystem="local" code="67785-9" displayName="Urine benzodiazepines detection by screening method" /> <statusCode code="completed" /> <effectiveTime value="976778234689" /> <value unit="" xsi:type="PQ " value="NEGATIVE" /> <referenceRange> <observationRange> <text>NEGATIVE</text> </observationRange> </ referenceRange> </observation> </component> <component> <observation moodCode="EVN" classCode="OBS"> <templateId root= "2.16.840.1.699176.10..22.4.2" /> <id nullFlavor="NA" /> < code codeSystem="local" code="3397-7" displayName="Urine cocaine detection" /> <statusCode code="completed" /> <effectiveTime value= "703577106639" /> <value unit="" xsi:type="PQ" value="NEGATIVE" /> <referenceRange> <observationRange> <text>NEGATIVE </text> </observationRange> </referenceRange> </ observation> </component> <component> <observation moodCode= "EVN" classCode="OBS"> <templateId root="2.16.840.1.783410.10..4.2 " /> <id nullFlavor="NA" /> <code codeSystem="local" code= "60707-5" displayName="Urine amphetamines detection by screening method" /> <statusCode code="completed" /> <effectiveTime value= "635688492402" /> <value unit="" xsi:type="PQ" value="NEGATIVE" /> <referenceRange> <observationRange> <text>NEGATIVE </text> </observationRange> </referenceRange> </ observation> </component> <component> <observation moodCode= "EVN" classCode="OBS"> <templateId root="216.840.1.961771.10.22.4.2 " /> <id nullFlavor="NA" /> <code codeSystem="local" code= "24953-1" displayName="Urine methamphetamine detection by screening method" /> <statusCode code="completed" /> <effectiveTime value= "093977519156" /> <value unit="" xsi:type="PQ" value="NEGATIVE" /> <referenceRange> <observationRange> <text>NEGATIVE </text> </observationRange> </referenceRange> </ observation> </component> <component> <observation moodCode= "EVN" classCode="OBS"> <templateId root="2.16.840.1.011176.10..22.4.2 " /> <id nullFlavor="NA" /> <code codeSystem="local" code= "37790-9" displayName="Urine cannabinoids detection by screening method" /> <statusCode code="completed" /> <effectiveTime value= "556206491090" /> <value unit="" xsi:type="PQ" value="NEGATIVE" /> <referenceRange> <observationRange> <text>NEGATIVE </text> </observationRange> </referenceRange> </ observation> </component> <component> <observation moodCode= "EVN" classCode="OBS"> <templateId root="216.840.1.143469.10..4.2 " /> <id nullFlavor="NA" /> <code codeSystem="local" code= "98564-6" displayName="Urine opiates detection by screening method" /> <statusCode code="completed" /> <effectiveTime value="429132425317" /> <value unit="" xsi:type="PQ" value="NEGATIVE" /> < referenceRange> <observationRange> <text>NEGATIVE</text > </observationRange> </referenceRange> </observation > </component> <component> <observation moodCode="EVN" classCode="OBS"> <templateId root="216.840.1.693927.10..22.4.2" /> <id nullFlavor="NA" /> <code codeSystem="local" code="3377-9" displayName="Urine barbiturates detection" /> <statusCode code= "completed" /> <effectiveTime value="289584861761" /> <value unit="" xsi:type="PQ" value="NEGATIVE" /> <referenceRange> < observationRange> <text>NEGATIVE</text> </ observationRange> </referenceRange> </observation> </ component> <component> <observation moodCode="EVN" classCode="OBS"> <templateId root="216.840.1.852292.10.20.22.4.2" /> <id nullFlavor="NA" /> <code codeSystem="local" code="05012-8" displayName= "Screening urine tricyclic antidepressants detection" /> <statusCode code="completed" /> <effectiveTime value="118575576016" /> < value unit="" xsi:type="PQ" value="NEGATIVE" /> <referenceRange> <observationRange> <text>NEGATIVE</text> </ observationRange> </referenceRange> </observation> </ component> <component> <observation moodCode="EVN" classCode="OBS"> <templateId root="06.27.840.1.954095.10.22.4.2" /> <id nullFlavor="NA" /> <code codeSystem="local" code="21788-4" displayName= "Urine methadone detection by screening method" /> <statusCode code= "completed" /> <effectiveTime value="685078118173" /> <value unit="" xsi:type="PQ" value="NEGATIVE" /> <referenceRange> < observationRange> <text>NEGATIVE</text> </ observationRange> </referenceRange> </observation> </ component> <component> <observation moodCode="EVN" classCode="OBS"> <templateId root="06.27.840.1.507507.10.2022.4.2" /> <id nullFlavor="NA" /> <code codeSystem="local" code="05271-6" displayName= "Urine oxycodone detection" /> <statusCode code="completed" /> <effectiveTime value="814049579170" /> <value unit="" xsi:type="PQ" value="NEGATIVE" /> <referenceRange> <observationRange> <text>NEGATIVE</text> </observationRange> </ referenceRange> </observation> </component> <component> <observation moodCode="EVN" classCode="OBS"> <templateId root= "216.840.1.397402.10..4.2" /> <id nullFlavor="NA" /> < code codeSystem="local" code="77440-8" displayName="Urine propoxyphene detection " /> <statusCode code="completed" /> <effectiveTime value= "691330036269" /> <value unit="" xsi:type="PQ" value="NEGATIVE" /> <referenceRange> <observationRange> <text>NEGATIVE </text> </observationRange> </referenceRange> </ observation> </component> </organizer> </entry> <entry> <organizer moodCode="EVN" classCode="BATTERY"> <templateId root= "216.840.1.140318.10..4.1" /> <id nullFlavor="NA" /> <code codeSystem="local" code="40869-0" displayName="Complete blood count (CBC) with automated white blood cell (WBC) differential" /> <statusCode code= "completed" /> <component> <observation moodCode="EVN" classCode= "OBS"> <templateId root="2.16.840.1.478702.10..22.4.2" /> < id nullFlavor="NA" /> <code codeSystem="local" code="6690-2" displayName="Blood leukocytes automated count (number/volume)" /> < statusCode code="completed" /> <effectiveTime value="057366952544" /> <value unit="10*3/uL" xsi:type="PQ" value="5.5" /> < referenceRange> <observationRange> <text>4.3-11.0</text > </observationRange> </referenceRange> </observation > </component> <component> <observation moodCode="EVN" classCode="OBS"> <templateId root="2.16.840.1.106887.10..22.4.2" /> <id nullFlavor="NA" /> <code codeSystem="local" code="789-8" displayName="Blood erythrocytes automated count (number/volume)" /> < statusCode code="completed" /> <effectiveTime value="996068796363" /> <value unit="10*6/uL" xsi:type="PQ" value="4.20" /> < interpretationCode codeSystem="local" code="" /> <referenceRange> <observationRange> <text>4.35-5.85</text> </ observationRange> </referenceRange> </observation> </ component> <component> <observation moodCode="EVN" classCode="OBS"> <templateId root="2.16.840.1.841704.10..22.4.2" /> <id nullFlavor="NA" /> <code codeSystem="local" code="49802-1" displayName= "Venous blood hemoglobin measurement (mass/volume)" /> <statusCode code ="completed" /> <effectiveTime value="587285528142" /> <value unit="g/dL" xsi:type="PQ" value="9.7" /> <interpretationCode codeSystem ="local" code="" /> <referenceRange> <observationRange> <text>11.5-16.0</text> </observationRange> </ referenceRange> </observation> </component> <component> <observation moodCode="EVN" classCode="OBS"> <templateId root= "216.840.1.545045.10..22.4.2" /> <id nullFlavor="NA" /> < code codeSystem="local" code="65238-3" displayName="Blood hematocrit (volume fraction)" /> <statusCode code="completed" /> <effectiveTime value="768322557076" /> <value unit="%" xsi:type="PQ" value="31" / > <interpretationCode codeSystem="local" code="" /> < referenceRange> <observationRange> <text>35-52</text> </observationRange> </referenceRange> </observation> </component> <component> <observation moodCode="EVN" classCode= "OBS"> <templateId root="06.27.840.1.501026.02.28.22.4.2" /> < id nullFlavor="NA" /> <code codeSystem="local" code="787-2" displayName ="Automated erythrocyte mean corpuscular volume" /> <statusCode code= "completed" /> <effectiveTime value="942735756259" /> <value unit="[foz_us]" xsi:type="PQ" value="74" /> <interpretationCode codeSystem="local" code="" /> <referenceRange> < observationRange> <text>80-99</text> </observationRange > </referenceRange> </observation> </component> < component> <observation moodCode="EVN" classCode="OBS"> < templateId root="06.27.840.1.991558.10.20.22.4.2" /> <id nullFlavor="NA " /> <code codeSystem="local" code="785-6" displayName="Automated erythrocyte mean corpuscular hemoglobin (mass per erythrocyte)" /> < statusCode code="completed" /> <effectiveTime value="474884806856" /> <value unit="pg" xsi:type="PQ" value="23" /> < interpretationCode codeSystem="local" code="" /> <referenceRange> <observationRange> <text>25-34</text> </ observationRange> </referenceRange> </observation> </ component> <component> <observation moodCode="EVN" classCode="OBS"> <templateId root="216.840.1.424728.10.20.22.4.2" /> <id nullFlavor="NA" /> <code codeSystem="local" code="786-4" displayName= "Automated erythrocyte mean corpuscular hemoglobin concentration measurement ( mass/volume)" /> <statusCode code="completed" /> < effectiveTime value="593325027132" /> <value unit="g/dL" xsi:type="PQ" value="31" /> <interpretationCode codeSystem="local" code="" /> <referenceRange> <observationRange> <text>32-36</ text> </observationRange> </referenceRange> </ observation> </component> <component> <observation moodCode= "EVN" classCode="OBS"> <templateId root="216.840.1.787364.10.20.22.4.2 " /> <id nullFlavor="NA" /> <code codeSystem="local" code="788 -0" displayName="Automated erythrocyte distribution width ratio" /> < statusCode code="completed" /> <effectiveTime value="860808458089" /> <value unit="%" xsi:type="PQ" value="21.6" /> < interpretationCode codeSystem="local" code="" /> <referenceRange> <observationRange> <text>10.0-14.5</text> </ observationRange> </referenceRange> </observation> </ component> <component> <observation moodCode="EVN" classCode="OBS"> <templateId root="216.840.1.857185.10.20.22.4.2" /> <id nullFlavor="NA" /> <code codeSystem="local" code="777-3" displayName= "Automated blood platelet count (count/volume)" /> <statusCode code= "completed" /> <effectiveTime value="702063623076" /> <value unit="10*3/uL" xsi:type="PQ" value="181" /> <referenceRange> <observationRange> <text>130-400</text> </ observationRange> </referenceRange> </observation> </ component> <component> <observation moodCode="EVN" classCode="OBS"> <templateId root="216.840.1.160056.10.22.4.2" /> <id nullFlavor="NA" /> <code codeSystem="local" code="90856-0" displayName= "Automated blood platelet mean volume measurement" /> <statusCode code= "completed" /> <effectiveTime value="346823327052" /> <value unit="[foz_us]" xsi:type="PQ" value="11.2" /> <interpretationCode codeSystem="local" code="" /> <referenceRange> < observationRange> <text>7.4-10.4</text> </ observationRange> </referenceRange> </observation> </ component> <component> <observation moodCode="EVN" classCode="OBS"> <templateId root="2.16.840.1.178989.10.20.22.4.2" /> <id nullFlavor="NA" /> <code codeSystem="local" code="770-8" displayName= "Automated blood neutrophils/100 leukocytes" /> <statusCode code= "completed" /> <effectiveTime value="849397895521" /> <value unit="%" xsi:type="PQ" value="51" /> <referenceRange> < observationRange> <text>42-75</text> </observationRange > </referenceRange> </observation> </component> < component> <observation moodCode="EVN" classCode="OBS"> < templateId root="2.16.840.1.817617.10..22.4.2" /> <id nullFlavor="NA " /> <code codeSystem="local" code="736-9" displayName="Automated blood lymphocytes/100 leukocytes" /> <statusCode code="completed" /> <effectiveTime value="386736137449" /> <value unit="%" xsi: type="PQ" value="31" /> <referenceRange> <observationRange> <text>12-44</text> </observationRange> </ referenceRange> </observation> </component> <component> <observation moodCode="EVN" classCode="OBS"> <templateId root= "216.840.1.999269.10...4.2" /> <id nullFlavor="NA" /> < code codeSystem="local" code="59704-2" displayName="Blood monocytes/100 leukocytes" /> <statusCode code="completed" /> <effectiveTime value="800623869199" /> <value unit="%" xsi:type="PQ" value="11" / > <referenceRange> <observationRange> <text>0- 12</text> </observationRange> </referenceRange> </ observation> </component> <component> <observation moodCode= "EVN" classCode="OBS"> <templateId root="2.16.840.1.860650.10.4.2 " /> <id nullFlavor="NA" /> <code codeSystem="local" code="713 -8" displayName="Automated blood eosinophils/100 leukocytes" /> < statusCode code="completed" /> <effectiveTime value="851058279679" /> <value unit="%" xsi:type="PQ" value="6" /> <referenceRange > <observationRange> <text>0-10</text> </ observationRange> </referenceRange> </observation> </ component> <component> <observation moodCode="EVN" classCode="OBS"> <templateId root="2.16.840.1.633447.02.28.22.4.2" /> <id nullFlavor="NA" /> <code codeSystem="local" code="706-2" displayName= "Automated blood basophils/100 leukocytes" /> <statusCode code= "completed" /> <effectiveTime value="254402034664" /> <value unit="%" xsi:type="PQ" value="1" /> <referenceRange> < observationRange> <text>0-10</text> </observationRange> </referenceRange> </observation> </component> < component> <observation moodCode="EVN" classCode="OBS"> < templateId root="2.16.840.1.999968.02.28.22.4.2" /> <id nullFlavor="NA " /> <code codeSystem="local" code="751-8" displayName="Blood neutrophils automated count (number/volume)" /> <statusCode code= "completed" /> <effectiveTime value="837466955937" /> <value unit="10*3" xsi:type="PQ" value="2.8" /> <referenceRange> < observationRange> <text>1.8-7.8</text> </ observationRange> </referenceRange> </observation> </ component> <component> <observation moodCode="EVN" classCode="OBS"> <templateId root="2.16.840.1.070131.10.20.22.4.2" /> <id nullFlavor="NA" /> <code codeSystem="local" code="731-0" displayName= "Blood lymphocytes automated count (number/volume)" /> <statusCode code ="completed" /> <effectiveTime value="839891528402" /> <value unit="10*3" xsi:type="PQ" value="1.7" /> <referenceRange> < observationRange> <text>1.0-4.0</text> </ observationRange> </referenceRange> </observation> </ component> <component> <observation moodCode="EVN" classCode="OBS"> <templateId root="216.840.1.744485.22.4.2" /> <id nullFlavor="NA" /> <code codeSystem="local" code="742-7" displayName= "Blood monocytes automated count (number/volume)" /> <statusCode code= "completed" /> <effectiveTime value="468093966830" /> <value unit="10*3" xsi:type="PQ" value="0.6" /> <referenceRange> < observationRange> <text>0.0-1.0</text> </ observationRange> </referenceRange> </observation> </ component> <component> <observation moodCode="EVN" classCode="OBS"> <templateId root="216.840.1.000895.10.2022.4.2" /> <id nullFlavor="NA" /> <code codeSystem="local" code="711-2" displayName= "Automated eosinophil count" /> <statusCode code="completed" /> <effectiveTime value="552422273433" /> <value unit="10*3/uL" xsi: type="PQ" value="0.3" /> <referenceRange> <observationRange > <text>0.0-0.3</text> </observationRange> </ referenceRange> </observation> </component> <component> <observation moodCode="EVN" classCode="OBS"> <templateId root= "216.840.1.779241.10..22.4.2" /> <id nullFlavor="NA" /> < code codeSystem="local" code="704-7" displayName="Automated blood basophil count (count/volume)" /> <statusCode code="completed" /> < effectiveTime value="623754166219" /> <value unit="10*3/uL" xsi:type= "PQ" value="0.0" /> <referenceRange> <observationRange> <text>0.0-0.1</text> </observationRange> </ referenceRange> </observation> </component> </organizer> </entry > <entry> <organizer moodCode="EVN" classCode="BATTERY"> <templateId root="216.840.1.791699.10..22.4.1" /> <id nullFlavor="NA" /> <code codeSystem="local" code="2117-12" displayName="Serum or plasma choriogonadotropin ( test) detection" /> <statusCode code= "completed" /> <component> <observation moodCode="EVN" classCode= "OBS"> <templateId root="216.840.1.067296.10..22.4.2" /> < id nullFlavor="NA" /> <code codeSystem="local" code="2117-12" displayName="Serum or plasma choriogonadotropin ( test) detection" /> <statusCode code="completed" /> <effectiveTime value= "210308106236" /> <value unit="" xsi:type="PQ" value="NEGATIVE" /> <referenceRange> <observationRange> <text>NEGATIVE </text> </observationRange> </referenceRange> </ observation> </component> </organizer> </entry> <entry> <organizer moodCode="EVN" classCode="BATTERY"> <templateId root= "216.840.1.657255.10..22.4.1" /> <id nullFlavor="NA" /> <code codeSystem="local" code="80413-2" displayName="Comprehensive metabolic panel" / > <statusCode code="completed" /> <component> <observation moodCode="EVN" classCode="OBS"> <templateId root= "2.16.840.1.410496.10..22.4.2" /> <id nullFlavor="NA" /> < code codeSystem="local" code="2951-2" displayName="Serum or plasma sodium measurement (moles/volume)" /> <statusCode code="completed" /> <effectiveTime value="754022963064" /> <value unit="mmol/L" xsi:type= "PQ" value="139" /> <referenceRange> <observationRange> <text>135-145</text> </observationRange> </ referenceRange> </observation> </component> <component> <observation moodCode="EVN" classCode="OBS"> <templateId root= "2.16.840.1.541567.10..22.4.2" /> <id nullFlavor="NA" /> < code codeSystem="local" code="2823-3" displayName="Serum or plasma potassium measurement (moles/volume)" /> <statusCode code="completed" /> <effectiveTime value="340350547377" /> <value unit="mmol/L" xsi:type= "PQ" value="3.5" /> <interpretationCode codeSystem="local" code="" / > <referenceRange> <observationRange> <text>3.6 -5.0</text> </observationRange> </referenceRange> </ observation> </component> <component> <observation moodCode= "EVN" classCode="OBS"> <templateId root="16.840.1.982222.10..4.2 " /> <id nullFlavor="NA" /> <code codeSystem="local" code= "" displayName="Serum or plasma chloride measurement (moles/volume)" /> <statusCode code="completed" /> <effectiveTime value= "692825344324" /> <value unit="mmol/L" xsi:type="PQ" value="106" /> <referenceRange> <observationRange> <text>98-107< /text> </observationRange> </referenceRange> </ observation> </component> <component> <observation moodCode= "EVN" classCode="OBS"> <templateId root="06.27.840.1.567012.10..4.2 " /> <id nullFlavor="NA" /> <code codeSystem="local" code= "2028-01" displayName="Carbon dioxide" /> <statusCode code="completed" / > <effectiveTime value="168707418706" /> <value unit="mmol/L" xsi:type="PQ" value="23" /> <referenceRange> < observationRange> <text>21-32</text> </observationRange > </referenceRange> </observation> </component> < component> <observation moodCode="EVN" classCode="OBS"> < templateId root="16.840.1.335609.10...4.2" /> <id nullFlavor="NA " /> <code codeSystem="local" code="22167-2" displayName="Serum or plasma anion gap determination (moles/volume)" /> <statusCode code= "completed" /> <effectiveTime value="761524872824" /> <value unit="mmol/L" xsi:type="PQ" value="10" /> <referenceRange> < observationRange> <text>5-14</text> </observationRange> </referenceRange> </observation> </component> < component> <observation moodCode="EVN" classCode="OBS"> < templateId root="2.16.840.1.835722.10..22.4.2" /> <id nullFlavor="NA " /> <code codeSystem="local" code="3094-0" displayName="Serum or plasma urea nitrogen measurement (mass/volume)" /> <statusCode code= "completed" /> <effectiveTime value="969723905637" /> <value unit="mg/dL" xsi:type="PQ" value="18" /> <referenceRange> < observationRange> <text>7-18</text> </observationRange> </referenceRange> </observation> </component> < component> <observation moodCode="EVN" classCode="OBS"> < templateId root="2.16.840.1.712808.10..22.4.2" /> <id nullFlavor="NA " /> <code codeSystem="local" code="2160-0" displayName="Serum or plasma creatinine measurement (mass/volume)" /> <statusCode code= "completed" /> <effectiveTime value="171646837360" /> <value unit="mg/dL" xsi:type="PQ" value="0.75" /> <referenceRange> <observationRange> <text>0.60-1.30</text> </ observationRange> </referenceRange> </observation> </ component> <component> <observation moodCode="EVN" classCode="OBS"> <templateId root="2.16.840.1.706659.10..22.4.2" /> <id nullFlavor="NA" /> <code codeSystem="local" code="3097-3" displayName= "Serum or plasma urea nitrogen/creatinine mass ratio" /> <statusCode code="completed" /> <effectiveTime value="085430549202" /> < value unit="" xsi:type="PQ" value="24" /> <referenceRange> < observationRange> <text>NRG</text> </observationRange> </referenceRange> </observation> </component> < component> <observation moodCode="EVN" classCode="OBS"> < templateId root="216.840.1.082111.10..4.2" /> <id nullFlavor="NA " /> <code codeSystem="local" code="61502-7" displayName="Serum or plasma creatinine measurement with calculation of estimated glomerular filtration rate" /> <statusCode code="completed" /> < effectiveTime value="206185472885" /> <value unit="" xsi:type="PQ" value=">" /> <referenceRange> <observationRange> <text>NRG</text> </observationRange> </referenceRange > </observation> </component> <component> <observation moodCode="EVN" classCode="OBS"> <templateId root= "2.16.840.1.747077.10..22.4.2" /> <id nullFlavor="NA" /> < code codeSystem="local" code="2345-7" displayName="Serum or plasma glucose measurement (mass/volume)" /> <statusCode code="completed" /> <effectiveTime value="380909244304" /> <value unit="mg/dL" xsi:type="PQ " value="90" /> <referenceRange> <observationRange> <text>70-105</text> </observationRange> </ referenceRange> </observation> </component> <component> <observation moodCode="EVN" classCode="OBS"> <templateId root= "2.16.840.1.439291.10..22.4.2" /> <id nullFlavor="NA" /> < code codeSystem="local" code="92717-0" displayName="Serum or plasma calcium measurement (mass/volume)" /> <statusCode code="completed" /> <effectiveTime value="517574216794" /> <value unit="mg/dL" xsi:type="PQ " value="9.0" /> <referenceRange> <observationRange> <text>8.5-10.1</text> </observationRange> </ referenceRange> </observation> </component> <component> <observation moodCode="EVN" classCode="OBS"> <templateId root= "2.16.840.1.962983.10..22.4.2" /> <id nullFlavor="NA" /> < code codeSystem="local" code="1974-06" displayName="Serum or plasma total bilirubin measurement (mass/volume)" /> <statusCode code="completed" / > <effectiveTime value="666757159533" /> <value unit="mg/dL" xsi:type="PQ" value="0.3" /> <referenceRange> < observationRange> <text>0.1-1.0</text> </ observationRange> </referenceRange> </observation> </ component> <component> <observation moodCode="EVN" classCode="OBS"> <templateId root="2.16.840.1.952311.10.20.22.4.2" /> <id nullFlavor="NA" /> <code codeSystem="local" code="6768-" displayName= "Serum or plasma alkaline phosphatase measurement (enzymatic activity/volume)" / > <statusCode code="completed" /> <effectiveTime value= "270974116450" /> <value unit="U/L" xsi:type="PQ" value="67" /> <referenceRange> <observationRange> <text>40-136</ text> </observationRange> </referenceRange> </ observation> </component> <component> <observation moodCode= "EVN" classCode="OBS"> <templateId root="2.16.840.1.813434.10..22.4.2 " /> <id nullFlavor="NA" /> <code codeSystem="local" code= "1919-12" displayName="Serum or plasma aspartate aminotransferase measurement ( enzymatic activity/volume)" /> <statusCode code="completed" /> <effectiveTime value="020980664714" /> <value unit="U/L" xsi:type="PQ " value="22" /> <referenceRange> <observationRange> <text>5-34</text> </observationRange> </referenceRange > </observation> </component> <component> <observation moodCode="EVN" classCode="OBS"> <templateId root= "2.16.840.1.088718.10..22.4.2" /> <id nullFlavor="NA" /> < code codeSystem="local" code="1741-10" displayName="Serum or plasma alanine aminotransferase measurement (enzymatic activity/volume)" /> < statusCode code="completed" /> <effectiveTime value="961105499557" /> <value unit="U/L" xsi:type="PQ" value="22" /> <referenceRange > <observationRange> <text>0-55</text> </ observationRange> </referenceRange> </observation> </ component> <component> <observation moodCode="EVN" classCode="OBS"> <templateId root="2.16.840.1.659020.10..22.4.2" /> <id nullFlavor="NA" /> <code codeSystem="local" code="2885-2" displayName= "Serum or plasma protein measurement (mass/volume)" /> <statusCode code ="completed" /> <effectiveTime value="961850145115" /> <value unit="g/dL" xsi:type="PQ" value="7.2" /> <referenceRange> < observationRange> <text>6.4-8.2</text> </ observationRange> </referenceRange> </observation> </ component> <component> <observation moodCode="EVN" classCode="OBS"> <templateId root="216.840.1.020831.10..4.2" /> <id nullFlavor="NA" /> <code codeSystem="local" code="1751-7" displayName= "Serum or plasma albumin measurement (mass/volume)" /> <statusCode code ="completed" /> <effectiveTime value="531711103530" /> <value unit="g/dL" xsi:type="PQ" value="4.2" /> <referenceRange> < observationRange> <text>3.2-4.5</text> </ observationRange> </referenceRange> </observation> </ component> </organizer> </entry> <entry> <organizer moodCode="EVN" classCode="BATTERY"> <templateId root="2.16.840.1.229774.10..22.4.1" /> <id nullFlavor="NA" /> <code codeSystem="local" code="3040-3" displayName="Lipase" /> <statusCode code="completed" /> <component> <observation moodCode="EVN" classCode="OBS"> <templateId root= "2.16.840.1.463224.10.20.22.4.2" /> <id nullFlavor="NA" /> < code codeSystem="local" code="3040-3" displayName="Lipase" /> < statusCode code="completed" /> <effectiveTime value="127090353390" /> <value unit="U/L" xsi:type="PQ" value="42" /> <referenceRange > <observationRange> <text>8-78</text> </ observationRange> </referenceRange> </observation> </ component> </organizer> </entry> <entry> <organizer moodCode="EVN" classCode="BATTERY"> <templateId root="2.16.840.1.158438.10.20.22.4.1" /> <id nullFlavor="NA" /> <code codeSystem="local" code="5643-2" displayName="Serum or plasma ethanol measurement (mass/volume)" /> < statusCode code="completed" /> <component> <observation moodCode= "EVN" classCode="OBS"> <templateId root="2.16.840.1.970261.10.20.22.4.2 " /> <id nullFlavor="NA" /> <code codeSystem="local" code= "5643-2" displayName="Serum or plasma ethanol measurement (mass/volume)" /> <statusCode code="completed" /> <effectiveTime value= "431931360620" /> <value unit="mg/dL" xsi:type="PQ" value="<" /> <referenceRange> <observationRange> <text><10< /text> </observationRange> </referenceRange> </ observation> </component> </organizer> </entry> <entry> <organizer moodCode="EVN" classCode="BATTERY"> <templateId root= "216.840.1.594238.10..4.1" /> <id nullFlavor="NA" /> <code codeSystem="local" code="ORD3" displayName="Comprehensive Metabolic Panel" /> <statusCode code="completed" /> <component> <observation moodCode="EVN" classCode="OBS"> <templateId root= "06.27.840.1.429336...4.2" /> <id nullFlavor="NA" /> < code codeSystem="local" code="Res44" displayName="Albumin" /> < statusCode code="completed" /> <effectiveTime value="374172316541" /> <value unit="g/dL" xsi:type="PQ" value="3.7" /> < referenceRange> <observationRange> <text>3.6-5.1</text> </observationRange> </referenceRange> </observation > </component> <component> <observation moodCode="EVN" classCode="OBS"> <templateId root="06.27.840.1.775594.02.28.22.4.2" /> <id nullFlavor="NA" /> <code codeSystem="local" code="Res45" displayName="ALP" /> <statusCode code="completed" /> < effectiveTime value="363887498815" /> <value unit="U/L" xsi:type="PQ" value="60" /> <referenceRange> <observationRange> <text>35-130</text> </observationRange> </referenceRange > </observation> </component> <component> <observation moodCode="EVN" classCode="OBS"> <templateId root= "06.27.840.1.053373.02.28.22.4.2" /> <id nullFlavor="NA" /> < code codeSystem="local" code="Res46" displayName="ALT" /> <statusCode code="completed" /> <effectiveTime value="730154145690" /> < value unit="U/L" xsi:type="PQ" value="11" /> <referenceRange> <observationRange> <text>6-45</text> </ observationRange> </referenceRange> </observation> </ component> <component> <observation moodCode="EVN" classCode="OBS"> <templateId root="2.16.840.1.473639.02.28.22.4.2" /> <id nullFlavor="NA" /> <code codeSystem="local" code="Res61" displayName= "Anion Gap" /> <statusCode code="completed" /> <effectiveTime value="" /> <value unit="" xsi:type="PQ" value="15" /> <interpretationCode codeSystem="local" code="H" /> < referenceRange> <observationRange> <text>6-14</text> </observationRange> </referenceRange> </observation> </component> <component> <observation moodCode="EVN" classCode= "OBS"> <templateId root="2.16.840.1.653007.02.28.22.4.2" /> < id nullFlavor="NA" /> <code codeSystem="local" code="Res48" displayName ="AST" /> <statusCode code="completed" /> <effectiveTime value ="252321814142" /> <value unit="U/L" xsi:type="PQ" value="15" /> <referenceRange> <observationRange> <text>2-40</text > </observationRange> </referenceRange> </observation > </component> <component> <observation moodCode="EVN" classCode="OBS"> <templateId root="216.840.1.323731.10.20.22.4.2" /> <id nullFlavor="NA" /> <code codeSystem="local" code="Res26" displayName="BUN" /> <statusCode code="completed" /> < effectiveTime value="297841849877" /> <value unit="mg/dL" xsi:type="PQ " value="22" /> <referenceRange> <observationRange> <text>5-25</text> </observationRange> </referenceRange > </observation> </component> <component> <observation moodCode="EVN" classCode="OBS"> <templateId root= "16.840.1.702594.10.2022.4.2" /> <id nullFlavor="NA" /> < code codeSystem="local" code="Res5" displayName="Calcium" /> < statusCode code="completed" /> <effectiveTime value="401421680400" /> <value unit="mg/dL" xsi:type="PQ" value="8.8" /> < referenceRange> <observationRange> <text>8.3-10.4</text > </observationRange> </referenceRange> </observation > </component> <component> <observation moodCode="EVN" classCode="OBS"> <templateId root="06.27.840.1.139252.10.20.22.4.2" /> <id nullFlavor="NA" /> <code codeSystem="local" code="Res21" displayName="Chloride" /> <statusCode code="completed" /> < effectiveTime value="546539852336" /> <value unit="mmol/L" xsi:type="PQ " value="109" /> <referenceRange> <observationRange> <text>95-114</text> </observationRange> </ referenceRange> </observation> </component> <component> <observation moodCode="EVN" classCode="OBS"> <templateId root= "216.840.1.767783.10.22.4.2" /> <id nullFlavor="NA" /> < code codeSystem="local" code="Res49" displayName="CO2" /> <statusCode code="completed" /> <effectiveTime value="479251806788" /> < value unit="mEq/L" xsi:type="PQ" value="20" /> <interpretationCode codeSystem="local" code="L" /> <referenceRange> < observationRange> <text>22-33</text> </observationRange > </referenceRange> </observation> </component> < component> <observation moodCode="EVN" classCode="OBS"> < templateId root="06.27.840.1.400586.02.28.22.4.2" /> <id nullFlavor="NA " /> <code codeSystem="local" code="Cwg965" displayName="Creat" /> <statusCode code="completed" /> <effectiveTime value= "972798625135" /> <value unit="mg/dL" xsi:type="PQ" value="0.74" /> <referenceRange> <observationRange> <text>0.50- 1.50</text> </observationRange> </referenceRange> </ observation> </component> <component> <observation moodCode= "EVN" classCode="OBS"> <templateId root="216.840.1.772055.10.22.4.2 " /> <id nullFlavor="NA" /> <code codeSystem="local" code= "Beg564" displayName="eGFR" /> <statusCode code="completed" /> <effectiveTime value="364375781712" /> <value unit="mL/min/1.73m2" xsi:type="PQ" value="90" /> <referenceRange> < observationRange> <text>>59</text> </observationRange > </referenceRange> </observation> </component> < component> <observation moodCode="EVN" classCode="OBS"> < templateId root="06.27.840.1.549944.10.4.2" /> <id nullFlavor="NA " /> <code codeSystem="local" code="Res7" displayName="Globulin" /> <statusCode code="completed" /> <effectiveTime value= "305734487330" /> <value unit="g/dL" xsi:type="PQ" value="2.1" /> <interpretationCode codeSystem="local" code="L" /> <referenceRange > <observationRange> <text>2.3-3.5</text> </ observationRange> </referenceRange> </observation> </ component> <component> <observation moodCode="EVN" classCode="OBS"> <templateId root="06.27.840.1.820478.02.28.22.4.2" /> <id nullFlavor="NA" /> <code codeSystem="local" code="Res60" displayName= "Glucose" /> <statusCode code="completed" /> <effectiveTime value="945693926155" /> <value unit="mg/dL" xsi:type="PQ" value="101" / > <referenceRange> <observationRange> <text>70- 110</text> </observationRange> </referenceRange> </ observation> </component> <component> <observation moodCode= "EVN" classCode="OBS"> <templateId root="216.840.1.872812.10.22.4.2 " /> <id nullFlavor="NA" /> <code codeSystem="local" code= "Res52" displayName="Osmo" /> <statusCode code="completed" /> <effectiveTime value="372656892590" /> <value unit="" xsi:type="PQ" value="294" /> <referenceRange> <observationRange> <text>280-295</text> </observationRange> </ referenceRange> </observation> </component> <component> <observation moodCode="EVN" classCode="OBS"> <templateId root= "2.16.840.1.619849.10.20.22.4.2" /> <id nullFlavor="NA" /> < code codeSystem="local" code="Res20" displayName="Potassium" /> < statusCode code="completed" /> <effectiveTime value="" /> <value unit="mmol/L" xsi:type="PQ" value="3.4" /> < interpretationCode codeSystem="local" code="L" /> <referenceRange> <observationRange> <text>3.5-5.3</text> </ observationRange> </referenceRange> </observation> </ component> <component> <observation moodCode="EVN" classCode="OBS"> <templateId root="2.16.840.1.124654.10.20.22.4.2" /> <id nullFlavor="NA" /> <code codeSystem="local" code="Res19" displayName= "Sodium" /> <statusCode code="completed" /> <effectiveTime value="855930854669" /> <value unit="mmol/L" xsi:type="PQ" value="141" /> <referenceRange> <observationRange> <text> 134-148</text> </observationRange> </referenceRange> </observation> </component> <component> <observation moodCode= "EVN" classCode="OBS"> <templateId root="06.27.840.1.829647.10.22.4.2 " /> <id nullFlavor="NA" /> <code codeSystem="local" code= "Res51" displayName="TBil" /> <statusCode code="completed" /> <effectiveTime value="919475177150" /> <value unit="mg/dL" xsi:type="PQ " value="< 0.2" /> <referenceRange> <observationRange> <text /> </observationRange> </referenceRange> </observation> </component> <component> <observation moodCode="EVN" classCode="OBS"> <templateId root= "06.27.840.1.612146.22.4.2" /> <id nullFlavor="NA" /> < code codeSystem="local" code="Res24" displayName="TP" /> <statusCode code="completed" /> <effectiveTime value="705582292412" /> < value unit="g/dL" xsi:type="PQ" value="5.8" /> <interpretationCode codeSystem="local" code="L" /> <referenceRange> < observationRange> <text>6.0-8.3</text> </ observationRange> </referenceRange> </observation> </ component> </organizer> </entry> <entry> <organizer moodCode="EVN" classCode="BATTERY"> <templateId root="06.27.840.1.779167.10.2022.4.1" /> <id nullFlavor="NA" /> <code codeSystem="local" code="GIU093" displayName="Folate" /> <statusCode code="completed" /> <component> <observation moodCode="EVN" classCode="OBS"> <templateId root= "06.27.840.1.483908.22.4.2" /> <id nullFlavor="NA" /> < code codeSystem="local" code="Aux386" displayName="Folate" /> < statusCode code="completed" /> <effectiveTime value="" /> <value unit="ng/mL" xsi:type="PQ" value="9.20" /> < referenceRange> <observationRange> <text>7.00-31.40</ text> </observationRange> </referenceRange> </ observation> </component> </organizer> </entry> <entry> <organizer moodCode="EVN" classCode="BATTERY"> <templateId root= "840.1.893121.22.4.1" /> <id nullFlavor="NA" /> <code codeSystem="local" code="VGH448" displayName="XM (2) LRPC" /> <statusCode code="completed" /> <component> <observation moodCode="EVN" classCode="OBS"> <templateId root="06.27.840.1.464256...4.2" /> <id nullFlavor="NA" /> <code codeSystem="local" code="Tmu494" displayName="CROSSMATCH" /> <statusCode code="completed" /> < effectiveTime value="455044554361" /> <value unit="" xsi:type="PQ" value="COMPATIBLE X 2" /> <referenceRange> <observationRange > <text /> </observationRange> </referenceRange > </observation> </component> <component> <observation moodCode="EVN" classCode="OBS"> <templateId root= "06.27.840.1.669145.10.22.4.2" /> <id nullFlavor="NA" /> < code codeSystem="local" code="Res87" displayName="Hct" /> <statusCode code="completed" /> <effectiveTime value="" /> < value unit="%" xsi:type="PQ" value="25.8" /> <interpretationCode codeSystem="local" code="L" /> <referenceRange> < observationRange> <text>36.0-46.0</text> </ observationRange> </referenceRange> </observation> </ component> <component> <observation moodCode="EVN" classCode="OBS"> <templateId root="06.27.840.1.803100.22.4.2" /> <id nullFlavor="NA" /> <code codeSystem="local" code="Tie524" displayName= "Hgb" /> <statusCode code="completed" /> <effectiveTime value= "796109395117" /> <value unit="g/dL" xsi:type="PQ" value="7.9" /> <interpretationCode codeSystem="local" code="L" /> <referenceRange > <observationRange> <text>13.0-15.0</text> < /observationRange> </referenceRange> </observation> </ component> </organizer> </entry> <entry> <organizer moodCode="EVN" classCode="BATTERY"> <templateId root="840.1.398724.22.4.1" /> <id nullFlavor="NA" /> <code codeSystem="local" code="ORD80" displayName=" Test-Serum" /> <statusCode code="completed" /> <component> <observation moodCode="EVN" classCode="OBS"> < templateId root="840.1.542969.102022.4.2" /> <id nullFlavor="NA " /> <code codeSystem="local" code="Res82" displayName="Preg Test-S" / > <statusCode code="completed" /> <effectiveTime value= "580374414233" /> <value unit="" xsi:type="PQ" value="Negative" /> <referenceRange> <observationRange> <text>Negative </text> </observationRange> </referenceRange> </ observation> </component> </organizer> </entry> <entry> <organizer moodCode="EVN" classCode="BATTERY"> <templateId root= "216.840.1.208310.10..22.4.1" /> <id nullFlavor="NA" /> <code codeSystem="local" code="XOA1580" displayName="Leukoreduced Packed RBC Unit Checkout" /> <statusCode code="completed" /> <component> < observation moodCode="EVN" classCode="OBS"> <templateId root= "2.16.840.1.492035.10..22.4.2" /> <id nullFlavor="NA" /> < code codeSystem="local" code="Djh845" displayName="LRPRBC Checkout" /> <statusCode code="completed" /> <effectiveTime value="250776402565" /> <value unit="" xsi:type="PQ" value="Checked Out." /> < referenceRange> <observationRange> <text /> < /observationRange> </referenceRange> </observation> </ component> </organizer> </entry> <entry> <organizer moodCode="EVN" classCode="BATTERY"> <templateId root="216.840.1.223438.10..22.4.1" /> <id nullFlavor="NA" /> <code codeSystem="local" code="MEG4532" displayName="Leukoreduced Packed RBC Unit Checkout" /> <statusCode code= "completed" /> <component> <observation moodCode="EVN" classCode= "OBS"> <templateId root="2.16.840.1.913251.10..22.4.2" /> < id nullFlavor="NA" /> <code codeSystem="local" code="Ael103" displayName="[facility] Checkout" /> <statusCode code="completed" /> <effectiveTime value="082234490567" /> <value unit="" xsi:type="PQ " value="Checked Out." /> <referenceRange> <observationRange > <text /> </observationRange> </referenceRange > </observation> </component> </organizer> </entry> <entry> <organizer moodCode="EVN" classCode="BATTERY"> <templateId root= "2.16.840.1.777125.10..22.4.1" /> <id nullFlavor="NA" /> <code codeSystem="local" code="ORD4" displayName="BMP" /> <statusCode code= "completed" /> <component> <observation moodCode="EVN" classCode= "OBS"> <templateId root="2.16.840.1.501380.10..22.4.2" /> < id nullFlavor="NA" /> <code codeSystem="local" code="Res61" displayName ="Anion Gap" /> <statusCode code="completed" /> < effectiveTime value="645791480537" /> <value unit="" xsi:type="PQ" value="15" /> <interpretationCode codeSystem="local" code="H" /> <referenceRange> <observationRange> <text>6-14</text > </observationRange> </referenceRange> </observation > </component> <component> <observation moodCode="EVN" classCode="OBS"> <templateId root="216.840.1.365729.10..22.4.2" /> <id nullFlavor="NA" /> <code codeSystem="local" code="Res26" displayName="BUN" /> <statusCode code="completed" /> < effectiveTime value="" /> <value unit="mg/dL" xsi:type="PQ " value="18" /> <referenceRange> <observationRange> <text>5-25</text> </observationRange> </referenceRange > </observation> </component> <component> <observation moodCode="EVN" classCode="OBS"> <templateId root= "16.840.1.834196.02.28.22.4.2" /> <id nullFlavor="NA" /> < code codeSystem="local" code="Res5" displayName="Calcium" /> < statusCode code="completed" /> <effectiveTime value="" /> <value unit="mg/dL" xsi:type="PQ" value="8.8" /> < referenceRange> <observationRange> <text>8.3-10.4</text > </observationRange> </referenceRange> </observation > </component> <component> <observation moodCode="EVN" classCode="OBS"> <templateId root="16.840.1.125415.10.2022.4.2" /> <id nullFlavor="NA" /> <code codeSystem="local" code="Res21" displayName="Chloride" /> <statusCode code="completed" /> < effectiveTime value="776865093837" /> <value unit="mmol/L" xsi:type="PQ " value="110" /> <referenceRange> <observationRange> <text>95-114</text> </observationRange> </ referenceRange> </observation> </component> <component> <observation moodCode="EVN" classCode="OBS"> <templateId root= "216.840.1.480098.10.22.4.2" /> <id nullFlavor="NA" /> < code codeSystem="local" code="Res49" displayName="CO2" /> <statusCode code="completed" /> <effectiveTime value="" /> < value unit="mEq/L" xsi:type="PQ" value="22" /> <referenceRange> <observationRange> <text>22-33</text> </ observationRange> </referenceRange> </observation> </ component> <component> <observation moodCode="EVN" classCode="OBS"> <templateId root="216.840.1.822727.02.28.224.2" /> <id nullFlavor="NA" /> <code codeSystem="local" code="Nay474" displayName= "Creat" /> <statusCode code="completed" /> <effectiveTime value="" /> <value unit="mg/dL" xsi:type="PQ" value="0.74" /> <referenceRange> <observationRange> <text> 0.50-1.50</text> </observationRange> </referenceRange> </observation> </component> <component> <observation moodCode="EVN" classCode="OBS"> <templateId root= "16.840.1.308116.10.2022.4.2" /> <id nullFlavor="NA" /> < code codeSystem="local" code="Euj674" displayName="eGFR" /> < statusCode code="completed" /> <effectiveTime value="" /> <value unit="mL/min/1.73m2" xsi:type="PQ" value="90" /> < referenceRange> <observationRange> <text>>59</text> </observationRange> </referenceRange> </observation> </component> <component> <observation moodCode="EVN" classCode ="OBS"> <templateId root="06.27.840.1.783113.10..4.2" /> < id nullFlavor="NA" /> <code codeSystem="local" code="Res60" displayName ="Glucose" /> <statusCode code="completed" /> <effectiveTime value="568471856944" /> <value unit="mg/dL" xsi:type="PQ" value="70" / > <referenceRange> <observationRange> <text>70- 110</text> </observationRange> </referenceRange> </ observation> </component> <component> <observation moodCode= "EVN" classCode="OBS"> <templateId root="840.1.927827.10.4.2 " /> <id nullFlavor="NA" /> <code codeSystem="local" code= "Res52" displayName="Osmo" /> <statusCode code="completed" /> <effectiveTime value="993007060004" /> <value unit="" xsi:type="PQ" value="296" /> <interpretationCode codeSystem="local" code="H" /> <referenceRange> <observationRange> <text>280-295</ text> </observationRange> </referenceRange> </ observation> </component> <component> <observation moodCode= "EVN" classCode="OBS"> <templateId root="06.27.840.1.051519.10..4.2 " /> <id nullFlavor="NA" /> <code codeSystem="local" code= "Res20" displayName="Potassium" /> <statusCode code="completed" /> <effectiveTime value="275218078293" /> <value unit="mmol/L" xsi: type="PQ" value="3.6" /> <referenceRange> <observationRange > <text>3.5-5.3</text> </observationRange> </ referenceRange> </observation> </component> <component> <observation moodCode="EVN" classCode="OBS"> <templateId root= "216.840.1.799926.10..22.4.2" /> <id nullFlavor="NA" /> < code codeSystem="local" code="Res19" displayName="Sodium" /> < statusCode code="completed" /> <effectiveTime value="489004605928" /> <value unit="mmol/L" xsi:type="PQ" value="143" /> < referenceRange> <observationRange> <text>134-148</text> </observationRange> </referenceRange> </observation > </component> </organizer> </entry> <entry> <organizer moodCode= "EVN" classCode="BATTERY"> <templateId root="216.840.1.018166.10..22.4.1 " /> <id nullFlavor="NA" /> <code codeSystem="local" code="60801-3" displayName="Complete blood count (CBC) with automated white blood cell (WBC) differential" /> <statusCode code="completed" /> <component> < observation moodCode="EVN" classCode="OBS"> <templateId root= "216.840.1.126990.10.20.22.4.2" /> <id nullFlavor="NA" /> < code codeSystem="local" code="6690-2" displayName="Blood leukocytes automated count (number/volume)" /> <statusCode code="completed" /> < effectiveTime value="020885380392" /> <value unit="10*3/uL" xsi:type= "PQ" value="10.1" /> <referenceRange> <observationRange> <text>4.3-11.0</text> </observationRange> </ referenceRange> </observation> </component> <component> <observation moodCode="EVN" classCode="OBS"> <templateId root= "2.16.840.1.604096.10.20.22.4.2" /> <id nullFlavor="NA" /> < code codeSystem="local" code="789-8" displayName="Blood erythrocytes automated count (number/volume)" /> <statusCode code="completed" /> < effectiveTime value="734520209106" /> <value unit="10*6/uL" xsi:type= "PQ" value="3.96" /> <interpretationCode codeSystem="local" code="" / > <referenceRange> <observationRange> <text> 4.35-5.85</text> </observationRange> </referenceRange> </observation> </component> <component> <observation moodCode="EVN" classCode="OBS"> <templateId root= "2.16.840.1.828770.10.20.22.4.2" /> <id nullFlavor="NA" /> < code codeSystem="local" code="73857-8" displayName="Venous blood hemoglobin measurement (mass/volume)" /> <statusCode code="completed" /> <effectiveTime value="943060398931" /> <value unit="g/dL" xsi:type="PQ " value="10.6" /> <interpretationCode codeSystem="local" code="" /> <referenceRange> <observationRange> <text>11.5- 16.0</text> </observationRange> </referenceRange> </ observation> </component> <component> <observation moodCode= "EVN" classCode="OBS"> <templateId root="2.16.840.1.880388.10..22.4.2 " /> <id nullFlavor="NA" /> <code codeSystem="local" code= "68392-7" displayName="Blood hematocrit (volume fraction)" /> < statusCode code="completed" /> <effectiveTime value="" /> <value unit="%" xsi:type="PQ" value="32" /> < interpretationCode codeSystem="local" code="" /> <referenceRange> <observationRange> <text>35-52</text> </ observationRange> </referenceRange> </observation> </ component> <component> <observation moodCode="EVN" classCode="OBS"> <templateId root="2.16.840.1.598625.10..4.2" /> <id nullFlavor="NA" /> <code codeSystem="local" code="787-2" displayName= "Automated erythrocyte mean corpuscular volume" /> <statusCode code= "completed" /> <effectiveTime value="" /> <value unit="[foz_us]" xsi:type="PQ" value="80" /> <referenceRange> <observationRange> <text>80-99</text> </ observationRange> </referenceRange> </observation> </ component> <component> <observation moodCode="EVN" classCode="OBS"> <templateId root="2.16.840.1.833118.10..22.4.2" /> <id nullFlavor="NA" /> <code codeSystem="local" code="785-6" displayName= "Automated erythrocyte mean corpuscular hemoglobin (mass per erythrocyte)" /> <statusCode code="completed" /> <effectiveTime value= "494888707359" /> <value unit="pg" xsi:type="PQ" value="27" /> <referenceRange> <observationRange> <text>25-34</text > </observationRange> </referenceRange> </observation > </component> <component> <observation moodCode="EVN" classCode="OBS"> <templateId root="2.16.840.1.975069.10..22.4.2" /> <id nullFlavor="NA" /> <code codeSystem="local" code="786-4" displayName="Automated erythrocyte mean corpuscular hemoglobin concentration measurement (mass/volume)" /> <statusCode code="completed" /> <effectiveTime value="065147026900" /> <value unit="g/dL" xsi:type="PQ " value="33" /> <referenceRange> <observationRange> <text>32-36</text> </observationRange> </ referenceRange> </observation> </component> <component> <observation moodCode="EVN" classCode="OBS"> <templateId root= "2.16.840.1.562219.10..22.4.2" /> <id nullFlavor="NA" /> < code codeSystem="local" code="788-0" displayName="Automated erythrocyte distribution width ratio" /> <statusCode code="completed" /> < effectiveTime value="715695281127" /> <value unit="%" xsi:type="PQ " value="22.0" /> <interpretationCode codeSystem="local" code="" /> <referenceRange> <observationRange> <text>10.0- 14.5</text> </observationRange> </referenceRange> </ observation> </component> <component> <observation moodCode= "EVN" classCode="OBS"> <templateId root="2.16.840.1.518807.10.20.22.4.2 " /> <id nullFlavor="NA" /> <code codeSystem="local" code="777 -3" displayName="Automated blood platelet count (count/volume)" /> < statusCode code="completed" /> <effectiveTime value="" /> <value unit="10*3/uL" xsi:type="PQ" value="313" /> < referenceRange> <observationRange> <text>130-400</text> </observationRange> </referenceRange> </observation > </component> <component> <observation moodCode="EVN" classCode="OBS"> <templateId root="16.840.1.577409.10.2022.4.2" /> <id nullFlavor="NA" /> <code codeSystem="local" code="31171-3 " displayName="Automated blood platelet mean volume measurement" /> < statusCode code="completed" /> <effectiveTime value="029491586028" /> <value unit="[foz_us]" xsi:type="PQ" value="10.7" /> < interpretationCode codeSystem="local" code="" /> <referenceRange> <observationRange> <text>7.4-10.4</text> </ observationRange> </referenceRange> </observation> </ component> <component> <observation moodCode="EVN" classCode="OBS"> <templateId root="16.840.1.651471.10.20.22.4.2" /> <id nullFlavor="NA" /> <code codeSystem="local" code="770-8" displayName= "Automated blood neutrophils/100 leukocytes" /> <statusCode code= "completed" /> <effectiveTime value="" /> <value unit="%" xsi:type="PQ" value="76" /> <interpretationCode codeSystem ="local" code="" /> <referenceRange> <observationRange> <text>42-75</text> </observationRange> </ referenceRange> </observation> </component> <component> <observation moodCode="EVN" classCode="OBS"> <templateId root= "2.16.840.1.590948.10..22.4.2" /> <id nullFlavor="NA" /> < code codeSystem="local" code="736-9" displayName="Automated blood lymphocytes/ 100 leukocytes" /> <statusCode code="completed" /> < effectiveTime value="510399943320" /> <value unit="%" xsi:type="PQ " value="16" /> <referenceRange> <observationRange> <text>12-44</text> </observationRange> </ referenceRange> </observation> </component> <component> <observation moodCode="EVN" classCode="OBS"> <templateId root= "2.16.840.1.490880.10...4.2" /> <id nullFlavor="NA" /> < code codeSystem="local" code="79839-1" displayName="Blood monocytes/100 leukocytes" /> <statusCode code="completed" /> <effectiveTime value="009548343688" /> <value unit="%" xsi:type="PQ" value="6" /> <referenceRange> <observationRange> <text>0-12 </text> </observationRange> </referenceRange> </ observation> </component> <component> <observation moodCode= "EVN" classCode="OBS"> <templateId root="2.16.840.1.514913.10.20.22.4.2 " /> <id nullFlavor="NA" /> <code codeSystem="local" code="713 -8" displayName="Automated blood eosinophils/100 leukocytes" /> < statusCode code="completed" /> <effectiveTime value="126201454093" /> <value unit="%" xsi:type="PQ" value="1" /> <referenceRange > <observationRange> <text>0-10</text> </ observationRange> </referenceRange> </observation> </ component> <component> <observation moodCode="EVN" classCode="OBS"> <templateId root="2.16.840.1.924726.10.20.22.4.2" /> <id nullFlavor="NA" /> <code codeSystem="local" code="706-2" displayName= "Automated blood basophils/100 leukocytes" /> <statusCode code= "completed" /> <effectiveTime value="957369485022" /> <value unit="%" xsi:type="PQ" value="0" /> <referenceRange> < observationRange> <text>0-10</text> </observationRange> </referenceRange> </observation> </component> < component> <observation moodCode="EVN" classCode="OBS"> < templateId root="2.16.840.1.930712.10.20.22.4.2" /> <id nullFlavor="NA " /> <code codeSystem="local" code="751-8" displayName="Blood neutrophils automated count (number/volume)" /> <statusCode code= "completed" /> <effectiveTime value="502774197582" /> <value unit="10*3" xsi:type="PQ" value="7.7" /> <referenceRange> < observationRange> <text>1.8-7.8</text> </ observationRange> </referenceRange> </observation> </ component> <component> <observation moodCode="EVN" classCode="OBS"> <templateId root="216.840.1.407630.10.20.22.4.2" /> <id nullFlavor="NA" /> <code codeSystem="local" code="731-0" displayName= "Blood lymphocytes automated count (number/volume)" /> <statusCode code ="completed" /> <effectiveTime value="" /> <value unit="10*3" xsi:type="PQ" value="1.6" /> <referenceRange> < observationRange> <text>1.0-4.0</text> </ observationRange> </referenceRange> </observation> </ component> <component> <observation moodCode="EVN" classCode="OBS"> <templateId root="16.840.1.901280.10.22.4.2" /> <id nullFlavor="NA" /> <code codeSystem="local" code="742-7" displayName= "Blood monocytes automated count (number/volume)" /> <statusCode code= "completed" /> <effectiveTime value="" /> <value unit="10*3" xsi:type="PQ" value="0.6" /> <referenceRange> < observationRange> <text>0.0-1.0</text> </ observationRange> </referenceRange> </observation> </ component> <component> <observation moodCode="EVN" classCode="OBS"> <templateId root="16.840.1.308971.10.20.22.4.2" /> <id nullFlavor="NA" /> <code codeSystem="local" code="711-2" displayName= "Automated eosinophil count" /> <statusCode code="completed" /> <effectiveTime value="" /> <value unit="10*3/uL" xsi: type="PQ" value="0.1" /> <referenceRange> <observationRange > <text>0.0-0.3</text> </observationRange> </ referenceRange> </observation> </component> <component> <observation moodCode="EVN" classCode="OBS"> <templateId root= "216.840.1.009174.10.2022.4.2" /> <id nullFlavor="NA" /> < code codeSystem="local" code="704-7" displayName="Automated blood basophil count (count/volume)" /> <statusCode code="completed" /> < effectiveTime value="" /> <value unit="10*3/uL" xsi:type= "PQ" value="0.0" /> <referenceRange> <observationRange> <text>0.0-0.1</text> </observationRange> </ referenceRange> </observation> </component> </organizer> </entry > <entry> <organizer moodCode="EVN" classCode="BATTERY"> <templateId root="06.27.840.1.222455.1022.4.1" /> <id nullFlavor="NA" /> <code codeSystem="local" code="35879-1" displayName="Whole blood basic metabolic panel " /> <statusCode code="completed" /> <component> <observation moodCode="EVN" classCode="OBS"> <templateId root= "16.840.1.181486.102022.4.2" /> <id nullFlavor="NA" /> < code codeSystem="local" code="2951-2" displayName="Serum or plasma sodium measurement (moles/volume)" /> <statusCode code="completed" /> <effectiveTime value="981786765237" /> <value unit="mmol/L" xsi:type= "PQ" value="140" /> <referenceRange> <observationRange> <text>135-145</text> </observationRange> </ referenceRange> </observation> </component> <component> <observation moodCode="EVN" classCode="OBS"> <templateId root= "2.16.840.1.787886.10.20.22.4.2" /> <id nullFlavor="NA" /> < code codeSystem="local" code="2823-3" displayName="Serum or plasma potassium measurement (moles/volume)" /> <statusCode code="completed" /> <effectiveTime value="278424582980" /> <value unit="mmol/L" xsi:type= "PQ" value="3.8" /> <referenceRange> <observationRange> <text>3.6-5.0</text> </observationRange> </ referenceRange> </observation> </component> <component> <observation moodCode="EVN" classCode="OBS"> <templateId root= "16.840.1.750173.10..22.4.2" /> <id nullFlavor="NA" /> < code codeSystem="local" code="2070" displayName="Serum or plasma chloride measurement (moles/volume)" /> <statusCode code="completed" /> <effectiveTime value="110187775485" /> <value unit="mmol/L" xsi:type= "PQ" value="107" /> <referenceRange> <observationRange> <text>98-107</text> </observationRange> </ referenceRange> </observation> </component> <component> <observation moodCode="EVN" classCode="OBS"> <templateId root= "216.840.1.080164.10.20.22.4.2" /> <id nullFlavor="NA" /> < code codeSystem="local" code="2028-01" displayName="Carbon dioxide" /> < statusCode code="completed" /> <effectiveTime value="285056767121" /> <value unit="mmol/L" xsi:type="PQ" value="25" /> < referenceRange> <observationRange> <text>21-32</text> </observationRange> </referenceRange> </observation> </component> <component> <observation moodCode="EVN" classCode= "OBS"> <templateId root="2.16.840.1.644719.10.20.22.4.2" /> < id nullFlavor="NA" /> <code codeSystem="local" code="65754-1" displayName="Serum or plasma anion gap determination (moles/volume)" /> <statusCode code="completed" /> <effectiveTime value="377334225706" / > <value unit="mmol/L" xsi:type="PQ" value="8" /> < referenceRange> <observationRange> <text>5-14</text> </observationRange> </referenceRange> </observation> </component> <component> <observation moodCode="EVN" classCode= "OBS"> <templateId root="2.16.840.1.420313.10.20.22.4.2" /> < id nullFlavor="NA" /> <code codeSystem="local" code="3094-0" displayName="Serum or plasma urea nitrogen measurement (mass/volume)" /> <statusCode code="completed" /> <effectiveTime value="790714525755" /> <value unit="mg/dL" xsi:type="PQ" value="15" /> < referenceRange> <observationRange> <text>7-18</text> </observationRange> </referenceRange> </observation> </component> <component> <observation moodCode="EVN" classCode= "OBS"> <templateId root="2.16.840.1.129178.10.20.22.4.2" /> < id nullFlavor="NA" /> <code codeSystem="local" code="2160-0" displayName="Serum or plasma creatinine measurement (mass/volume)" /> < statusCode code="completed" /> <effectiveTime value="283253057356" /> <value unit="mg/dL" xsi:type="PQ" value="0.72" /> < referenceRange> <observationRange> <text>0.60-1.30</text > </observationRange> </referenceRange> </observation > </component> <component> <observation moodCode="EVN" classCode="OBS"> <templateId root="216.840.1.088676.10...4.2" /> <id nullFlavor="NA" /> <code codeSystem="local" code="3097-3" displayName="Serum or plasma urea nitrogen/creatinine mass ratio" /> < statusCode code="completed" /> <effectiveTime value="549291893309" /> <value unit="" xsi:type="PQ" value="21" /> <referenceRange> <observationRange> <text>NRG</text> </ observationRange> </referenceRange> </observation> </ component> <component> <observation moodCode="EVN" classCode="OBS"> <templateId root="2.16.840.1.608784.10.20.22.4.2" /> <id nullFlavor="NA" /> <code codeSystem="local" code="62848-8" displayName= "Serum or plasma creatinine measurement with calculation of estimated glomerular filtration rate" /> <statusCode code="completed" /> <effectiveTime value="301451851320" /> <value unit="" xsi:type="PQ" value=">" /> <referenceRange> <observationRange> <text>NRG</text> </observationRange> </referenceRange > </observation> </component> <component> <observation moodCode="EVN" classCode="OBS"> <templateId root= "2.16.840.1.438185.10.20.22.4.2" /> <id nullFlavor="NA" /> < code codeSystem="local" code="2345-7" displayName="Serum or plasma glucose measurement (mass/volume)" /> <statusCode code="completed" /> <effectiveTime value="412701701731" /> <value unit="mg/dL" xsi:type="PQ " value="82" /> <referenceRange> <observationRange> <text>70-105</text> </observationRange> </ referenceRange> </observation> </component> <component> <observation moodCode="EVN" classCode="OBS"> <templateId root= "216.840.1.600549.10.20.22.4.2" /> <id nullFlavor="NA" /> < code codeSystem="local" code="52871-2" displayName="Serum or plasma calcium measurement (mass/volume)" /> <statusCode code="completed" /> <effectiveTime value="275873256921" /> <value unit="mg/dL" xsi:type="PQ " value="9.6" /> <referenceRange> <observationRange> <text>8.5-10.1</text> </observationRange> </ referenceRange> </observation> </component> </organizer> </entry > <entry> <organizer moodCode="EVN" classCode="BATTERY"> <templateId root="2.16.840.1.902046.10.20.22.4.1" /> <id nullFlavor="NA" /> <code codeSystem="local" code="2117-12" displayName="Serum or plasma choriogonadotropin ( test) detection" /> <statusCode code= "completed" /> <component> <observation moodCode="EVN" classCode= "OBS"> <templateId root="216.840.1.975294.10.20.22.4.2" /> < id nullFlavor="NA" /> <code codeSystem="local" code="2117-12" displayName="Serum or plasma choriogonadotropin ( test) detection" /> <statusCode code="completed" /> <effectiveTime value= "506435999108" /> <value unit="" xsi:type="PQ" value="NEGATIVE" /> <referenceRange> <observationRange> <text>NEGATIVE </text> </observationRange> </referenceRange> </ observation> </component> </organizer> </entry> <entry> <organizer moodCode="EVN" classCode="BATTERY"> <templateId root= "216.840.1.828662.10.20.22.4.1" /> <id nullFlavor="NA" /> <code codeSystem="local" code="600-7" displayName="Bacterial blood culture" /> < statusCode code="completed" /> <component> <observation moodCode= "EVN" classCode="OBS"> <templateId root="216.840.1.186349.10.20.22.4.2 " /> <id nullFlavor="NA" /> <code codeSystem="local" code="600 -7" displayName="Bacterial blood culture" /> <statusCode code= "completed" /> <effectiveTime value="121620541042" /> <value unit="" xsi:type="PQ" value="NG" /> <referenceRange> < observationRange> <text>NRG</text> </observationRange> </referenceRange> </observation> </component> </ organizer> </entry> <entry> <organizer moodCode="EVN" classCode="BATTERY"> <templateId root="06.27.840.1.038966.10...4.1" /> <id nullFlavor= "NA" /> <code codeSystem="local" code="17633-9" displayName="Methicillin resistant Staphylococcus aureus (MRSA) screening culture" /> <statusCode code="completed" /> <component> <observation moodCode="EVN" classCode="OBS"> <templateId root="06.27.840.1.559046.10..4.2" /> <id nullFlavor="NA" /> <code codeSystem="local" code="MRSARES " displayName="MRSA SCREEN RESULT" /> <statusCode code="completed" /> <effectiveTime value="540838035554" /> <value unit="" xsi:type ="PQ" value="MRSA ISOLATED" /> <interpretationCode codeSystem="local" code="*" /> <referenceRange> <observationRange> <text>NRG</text> </observationRange> </referenceRange> </observation> </component> </organizer> </entry> <entry> < organizer moodCode="EVN" classCode="BATTERY"> <templateId root= "06.27.840.1.795415.02.28.22.4.1" /> <id nullFlavor="NA" /> <code codeSystem="local" code="600-7" displayName="Bacterial blood culture" /> < statusCode code="completed" /> <component> <observation moodCode= "EVN" classCode="OBS"> <templateId root="16.840.1.818819.10..22.4.2 " /> <id nullFlavor="NA" /> <code codeSystem="local" code="600 -7" displayName="Bacterial blood culture" /> <statusCode code= "completed" /> <effectiveTime value="823723472167" /> <value unit="" xsi:type="PQ" value="NG" /> <referenceRange> < observationRange> <text>NRG</text> </observationRange> </referenceRange> </observation> </component> </ organizer> </entry> <entry> <organizer moodCode="EVN" classCode="BATTERY"> <templateId root="2.16.840.1.876258.10..22.4.1" /> <id nullFlavor= "NA" /> <code codeSystem="local" code="70307-3" displayName="Urine drug screening test" /> <statusCode code="completed" /> <component> <observation moodCode="EVN" classCode="OBS"> <templateId root= "2.16.840.1.553430.10..22.4.2" /> <id nullFlavor="NA" /> < code codeSystem="local" code="56188-7" displayName="Urine phencyclidine detection by screening method" /> <statusCode code="completed" /> <effectiveTime value="" /> <value unit="" xsi:type="PQ " value="NEGATIVE" /> <referenceRange> <observationRange> <text>NEGATIVE</text> </observationRange> </ referenceRange> </observation> </component> <component> <observation moodCode="EVN" classCode="OBS"> <templateId root= "2.16.840.1.890839.10..22.4.2" /> <id nullFlavor="NA" /> < code codeSystem="local" code="01696-4" displayName="Urine benzodiazepines detection by screening method" /> <statusCode code="completed" /> <effectiveTime value="" /> <value unit="" xsi:type="PQ " value="NEGATIVE" /> <referenceRange> <observationRange> <text>NEGATIVE</text> </observationRange> </ referenceRange> </observation> </component> <component> <observation moodCode="EVN" classCode="OBS"> <templateId root= "2.16.840.1.938505.10..22.4.2" /> <id nullFlavor="NA" /> < code codeSystem="local" code="3397-7" displayName="Urine cocaine detection" /> <statusCode code="completed" /> <effectiveTime value= "" /> <value unit="" xsi:type="PQ" value="NEGATIVE" /> <referenceRange> <observationRange> <text>NEGATIVE </text> </observationRange> </referenceRange> </ observation> </component> <component> <observation moodCode= "EVN" classCode="OBS"> <templateId root="216.840.1.730832.10..22.4.2 " /> <id nullFlavor="NA" /> <code codeSystem="local" code= "49685-6" displayName="Urine amphetamines detection by screening method" /> <statusCode code="completed" /> <effectiveTime value= "" /> <value unit="" xsi:type="PQ" value="POSITIVE" /> <interpretationCode codeSystem="local" code="*" /> < referenceRange> <observationRange> <text>NEGATIVE</text > </observationRange> </referenceRange> </observation > </component> <component> <observation moodCode="EVN" classCode="OBS"> <templateId root="216.840.1.409729.10.20.22.4.2" /> <id nullFlavor="NA" /> <code codeSystem="local" code="81654-0 " displayName="Urine methamphetamine detection by screening method" /> <statusCode code="completed" /> <effectiveTime value="" /> <value unit="" xsi:type="PQ" value="NEGATIVE" /> < referenceRange> <observationRange> <text>NEGATIVE</text > </observationRange> </referenceRange> </observation > </component> <component> <observation moodCode="EVN" classCode="OBS"> <templateId root="2.16.840.1.786710.10.20.22.4.2" /> <id nullFlavor="NA" /> <code codeSystem="local" code="78148-5 " displayName="Urine cannabinoids detection by screening method" /> < statusCode code="completed" /> <effectiveTime value="" /> <value unit="" xsi:type="PQ" value="POSITIVE" /> < interpretationCode codeSystem="local" code="*" /> <referenceRange> <observationRange> <text>NEGATIVE</text> </ observationRange> </referenceRange> </observation> </ component> <component> <observation moodCode="EVN" classCode="OBS"> <templateId root="2.16.840.1.003758.10.20.22.4.2" /> <id nullFlavor="NA" /> <code codeSystem="local" code="71585-6" displayName= "Urine opiates detection by screening method" /> <statusCode code= "completed" /> <effectiveTime value="" /> <value unit="" xsi:type="PQ" value="NEGATIVE" /> <referenceRange> < observationRange> <text>NEGATIVE</text> </ observationRange> </referenceRange> </observation> </ component> <component> <observation moodCode="EVN" classCode="OBS"> <templateId root="2.16.840.1.905218.10..22.4.2" /> <id nullFlavor="NA" /> <code codeSystem="local" code="3377-9" displayName= "Urine barbiturates detection" /> <statusCode code="completed" /> <effectiveTime value="" /> <value unit="" xsi:type="PQ " value="NEGATIVE" /> <referenceRange> <observationRange> <text>NEGATIVE</text> </observationRange> </ referenceRange> </observation> </component> <component> <observation moodCode="EVN" classCode="OBS"> <templateId root= "216.840.1.586839.10...4.2" /> <id nullFlavor="NA" /> < code codeSystem="local" code="04955-7" displayName="Screening urine tricyclic antidepressants detection" /> <statusCode code="completed" /> <effectiveTime value="" /> <value unit="" xsi:type="PQ" value="NEGATIVE" /> <referenceRange> <observationRange> <text>NEGATIVE</text> </observationRange> </ referenceRange> </observation> </component> <component> <observation moodCode="EVN" classCode="OBS"> <templateId root= "16.840.1.473967.10.22.4.2" /> <id nullFlavor="NA" /> < code codeSystem="local" code="41018-0" displayName="Urine methadone detection by screening method" /> <statusCode code="completed" /> < effectiveTime value="" /> <value unit="" xsi:type="PQ" value="NEGATIVE" /> <referenceRange> <observationRange> <text>NEGATIVE</text> </observationRange> </ referenceRange> </observation> </component> <component> <observation moodCode="EVN" classCode="OBS"> <templateId root= "2.16.840.1.879171.10..22.4.2" /> <id nullFlavor="NA" /> < code codeSystem="local" code="85600-8" displayName="Urine oxycodone detection" / > <statusCode code="completed" /> <effectiveTime value= "" /> <value unit="" xsi:type="PQ" value="NEGATIVE" /> <referenceRange> <observationRange> <text>NEGATIVE </text> </observationRange> </referenceRange> </ observation> </component> <component> <observation moodCode= "EVN" classCode="OBS"> <templateId root="2.16.840.1.907867.10...4.2 " /> <id nullFlavor="NA" /> <code codeSystem="local" code= "06472-1" displayName="Urine propoxyphene detection" /> <statusCode code="completed" /> <effectiveTime value="" /> < value unit="" xsi:type="PQ" value="NEGATIVE" /> <referenceRange> <observationRange> <text>NEGATIVE</text> </ observationRange> </referenceRange> </observation> </ component> </organizer> </entry> <entry> <organizer moodCode="EVN" classCode="BATTERY"> <templateId root="2.16.840.1.965164.10..22.4.1" /> <id nullFlavor="NA" /> <code codeSystem="local" code="42179-4" displayName="Bacteria identification in isolate by anaerobe culture" /> < statusCode code="completed" /> <component> <observation moodCode= "EVN" classCode="OBS"> <templateId root="216.840.1.494581.10..22.4.2 " /> <id nullFlavor="NA" /> <code codeSystem="local" code= "17292-7" displayName="Bacteria identification in isolate by anaerobe culture" / > <statusCode code="completed" /> <effectiveTime value= "784558343701" /> <value unit="" xsi:type="PQ" value="NOANA" /> <referenceRange> <observationRange> <text>NRG</text> </observationRange> </referenceRange> </observation > </component> </organizer> </entry> <entry> <organizer moodCode= "EVN" classCode="BATTERY"> <templateId root="2.16.840.1.458417.10.20.22.4.1 " /> <id nullFlavor="NA" /> <code codeSystem="local" code="664-3" displayName="Gram stain microscopy" /> <statusCode code="completed" /> <component> <observation moodCode="EVN" classCode="OBS"> < templateId root="2.16.840.1.124634.10.20.22.4.2" /> <id nullFlavor="NA " /> <code codeSystem="local" code="664-3" displayName="Gram stain microscopy" /> <statusCode code="completed" /> <effectiveTime value="408497285677" /> <value unit="" xsi:type="PQ" value="REPORTED ,0605." /> <referenceRange> <observationRange> <text>NRG</text> </observationRange> </ referenceRange> </observation> </component> </organizer> </entry > <entry> <organizer moodCode="EVN" classCode="BATTERY"> <templateId root="216.840.1.086021.10..22.4.1" /> <id nullFlavor="NA" /> <code codeSystem="local" code="6462-6" displayName="Bacteria identification in wound by culture" /> <statusCode code="completed" /> <component> < observation moodCode="EVN" classCode="OBS"> <templateId root= "06.27.840.1.104154.02.28.22.4.2" /> <id nullFlavor="NA" /> < code codeSystem="local" code="6462-6" displayName="Bacteria identification in wound by culture" /> <statusCode code="completed" /> < effectiveTime value="785118971822" /> <value unit="" xsi:type="PQ" value="SEE REPORT" /> <referenceRange> <observationRange> <text>NRG</text> </observationRange> </ referenceRange> </observation> </component> <component> <observation moodCode="EVN" classCode="OBS"> <templateId root= "06.27.840.1.867394.02.28.22.4.2" /> <id nullFlavor="NA" /> < code codeSystem="local" code="FTEXTERNAL" displayName="FREE TEXT EXTERNAL" /> <statusCode code="completed" /> <effectiveTime value= "630198203891" /> <value unit="" xsi:type="PQ" value="METHICILLIN- RESISTANT STAPH AUREUS" /> <referenceRange> < observationRange> <text>NRG</text> </observationRange> </referenceRange> </observation> </component> < component> <observation moodCode="EVN" classCode="OBS"> < templateId root="16.840.1.554671.10..4.2" /> <id nullFlavor="NA " /> <code codeSystem="local" code="G" displayName="QUANTITY OF GROWTH " /> <statusCode code="completed" /> <effectiveTime value= "" /> <value unit="" xsi:type="PQ" value="." /> < referenceRange> <observationRange> <text>NRG</text> </observationRange> </referenceRange> </observation> </component> </organizer> </entry> <entry> <organizer moodCode="EVN" classCode="BATTERY"> <templateId root="06.27.840.1.311029.10..22.4.1" /> <id nullFlavor="NA" /> <code codeSystem="local" code="RML-SENS" displayName="RML Sensitivity Panel" /> <statusCode code="completed" /> <component> <observation moodCode="EVN" classCode="OBS"> < templateId root="06.27.840.1.867973.10..22.4.2" /> <id nullFlavor="NA " /> <code codeSystem="local" code="383-0" displayName="Oxacillin susceptibility test by minimum inhibitory concentration" /> < statusCode code="completed" /> <effectiveTime value="022140258048" /> <value unit="" xsi:type="PQ" value="R" /> <interpretationCode codeSystem="local" code="*" /> <referenceRange> < observationRange> <text>NRG</text> </observationRange> </referenceRange> </observation> </component> < component> <observation moodCode="EVN" classCode="OBS"> < templateId root="06.27.840.1.373791...22.4.2" /> <id nullFlavor="NA " /> <code codeSystem="local" code="193-3" displayName="Clindamycin susceptibility test by minimum inhibitory concentration" /> < statusCode code="completed" /> <effectiveTime value="572262949098" /> <value unit="" xsi:type="PQ" value="<=" /> < interpretationCode codeSystem="local" code="*" /> <referenceRange> <observationRange> <text>NRG</text> </ observationRange> </referenceRange> </observation> </ component> <component> <observation moodCode="EVN" classCode="OBS"> <templateId root="2.16.840.1.553037.10.20.22.4.2" /> <id nullFlavor="NA" /> <code codeSystem="local" code="233-7" displayName= "Erythromycin susceptibility test by minimum inhibitory concentration" /> <statusCode code="completed" /> <effectiveTime value="688158978173 " /> <value unit="" xsi:type="PQ" value=">" /> < interpretationCode codeSystem="local" code="*" /> <referenceRange> <observationRange> <text>NRG</text> </ observationRange> </referenceRange> </observation> </ component> <component> <observation moodCode="EVN" classCode="OBS"> <templateId root="2.16.840.1.098707.10.20.22.4.2" /> <id nullFlavor="NA" /> <code codeSystem="local" code="516-5" displayName= "Trimethoprim/sulfamethoxazole susceptibility test by minimum inhibitoryconcentration" /> <statusCode code="completed" /> < effectiveTime value="667237239909" /> <value unit="" xsi:type="PQ" value="S" /> <interpretationCode codeSystem="local" code="*" /> <referenceRange> <observationRange> <text>NRG</text> </observationRange> </referenceRange> </observation > </component> <component> <observation moodCode="EVN" classCode="OBS"> <templateId root="216.840.1.283151.10..22.4.2" /> <id nullFlavor="NA" /> <code codeSystem="local" code="524-9" displayName="Vancomycin susceptibility test by minimum inhibitory concentration " /> <statusCode code="completed" /> <effectiveTime value= "751501910900" /> <value unit="" xsi:type="PQ" value="1" /> < interpretationCode codeSystem="local" code="*" /> <referenceRange> <observationRange> <text>NRG</text> </ observationRange> </referenceRange> </observation> </ component> <component> <observation moodCode="EVN" classCode="OBS"> <templateId root="2.840.1.474586.10..4.2" /> <id nullFlavor="NA" /> <code codeSystem="local" code="04033-6" displayName= "Levofloxacin susceptibility test by minimum inhibitory concentration" /> <statusCode code="completed" /> <effectiveTime value="296969262315 " /> <value unit="" xsi:type="PQ" value="4" /> < interpretationCode codeSystem="local" code="*" /> <referenceRange> <observationRange> <text>NRG</text> </ observationRange> </referenceRange> </observation> </ component> <component> <observation moodCode="EVN" classCode="OBS"> <templateId root="216.840.1.699314.10..22.4.2" /> <id nullFlavor="NA" /> <code codeSystem="local" code="428-3" displayName= "Rifampin susceptibility test by minimum inhibitory concentration" /> < statusCode code="completed" /> <effectiveTime value="750046475167" /> <value unit="" xsi:type="PQ" value="<=" /> < interpretationCode codeSystem="local" code="*" /> <referenceRange> <observationRange> <text>NRG</text> </ observationRange> </referenceRange> </observation> </ component> <component> <observation moodCode="EVN" classCode="OBS"> <templateId root="16.840.1.249251.10..22.4.2" /> <id nullFlavor="NA" /> <code codeSystem="local" code="76-0" displayName= "Cefazolin susceptibility test by minimum inhibitory concentration" /> <statusCode code="completed" /> <effectiveTime value="761508265392" /> <value unit="" xsi:type="PQ" value=">" /> < interpretationCode codeSystem="local" code="*" /> <referenceRange> <observationRange> <text>NRG</text> </ observationRange> </referenceRange> </observation> </ component> <component> <observation moodCode="EVN" classCode="OBS"> <templateId root="16.840.1.576991.10.20.22.4.2" /> <id nullFlavor="NA" /> <code codeSystem="local" code="09999-8" displayName= "Linezolid susceptibility test by minimum inhibitory concentration" /> <statusCode code="completed" /> <effectiveTime value="513962526512" /> <value unit="" xsi:type="PQ" value="2" /> < interpretationCode codeSystem="local" code="*" /> <referenceRange> <observationRange> <text>NRG</text> </ observationRange> </referenceRange> </observation> </ component> <component> <observation moodCode="EVN" classCode="OBS"> <templateId root="16.840.1.254013.10..22.4.2" /> <id nullFlavor="NA" /> <code codeSystem="local" code="392-1" displayName= "Penicillin G susceptibility test by minimum inhibitory concentration" /> <statusCode code="completed" /> <effectiveTime value=" " /> <value unit="" xsi:type="PQ" value=">" /> < interpretationCode codeSystem="local" code="*" /> <referenceRange> <observationRange> <text>NRG</text> </ observationRange> </referenceRange> </observation> </ component> <component> <observation moodCode="EVN" classCode="OBS"> <templateId root="16.840.1.978376.10..4.2" /> <id nullFlavor="NA" /> <code codeSystem="local" code="72750-6" displayName= "Moxifloxacin susceptibility test by minimum inhibitory concentration" /> <statusCode code="completed" /> <effectiveTime value=" " /> <value unit="" xsi:type="PQ" value="S" /> < interpretationCode codeSystem="local" code="*" /> <referenceRange> <observationRange> <text>NRG</text> </ observationRange> </referenceRange> </observation> </ component> <component> <observation moodCode="EVN" classCode="OBS"> <templateId root="216.840.1.717457.10..22.4.2" /> <id nullFlavor="NA" /> <code codeSystem="local" code="335-0" displayName= "Minocycline sus SHAYNA" /> <statusCode code="completed" /> < effectiveTime value="" /> <value unit="" xsi:type="PQ" value="<=" /> <interpretationCode codeSystem="local" code="*" /> <referenceRange> <observationRange> <text>NRG</ text> </observationRange> </referenceRange> </ observation> </component> </organizer> </entry> <entry> <organizer moodCode="EVN" classCode="BATTERY"> <templateId root= "216.840.1.596775.1022.4.1" /> <id nullFlavor="NA" /> <code codeSystem="local" code="71696-2" displayName="Complete urinalysis with reflex to culture" /> <statusCode code="completed" /> <component> < observation moodCode="EVN" classCode="OBS"> <templateId root= "216.840.1.219229...4.2" /> <id nullFlavor="NA" /> < code codeSystem="local" code="5778-6" displayName="Urine color determination" / > <statusCode code="completed" /> <effectiveTime value= "105246862631" /> <value unit="" xsi:type="PQ" value="YELLOW" /> <referenceRange> <observationRange> <text>NRG</text > </observationRange> </referenceRange> </observation > </component> <component> <observation moodCode="EVN" classCode="OBS"> <templateId root="06.27.840.1.678791.10.22.4.2" /> <id nullFlavor="NA" /> <code codeSystem="local" code="14423-3 " displayName="Urine clarity determination" /> <statusCode code= "completed" /> <effectiveTime value="110203899169" /> <value unit="" xsi:type="PQ" value="VERY CLOUDY" /> <interpretationCode codeSystem="local" code="*" /> <referenceRange> < observationRange> <text>NRG</text> </observationRange> </referenceRange> </observation> </component> < component> <observation moodCode="EVN" classCode="OBS"> < templateId root="216.840.1.286326.10.20.22.4.2" /> <id nullFlavor="NA " /> <code codeSystem="local" code="5803-2" displayName="Urine pH measurement by test strip" /> <statusCode code="completed" /> <effectiveTime value="472432638112" /> <value unit="" xsi:type="PQ" value="6.5" /> <referenceRange> <observationRange> <text>5-9</text> </observationRange> </referenceRange> </observation> </component> <component> <observation moodCode="EVN" classCode="OBS"> <templateId root= "06.27.840.1.003466.10.22.4.2" /> <id nullFlavor="NA" /> < code codeSystem="local" code="5811-5" displayName="Specific gravity of urine by test strip" /> <statusCode code="completed" /> <effectiveTime value="058586821941" /> <value unit="" xsi:type="PQ" value="1.010" /> <interpretationCode codeSystem="local" code="" /> < referenceRange> <observationRange> <text>1.016-1.022</ text> </observationRange> </referenceRange> </ observation> </component> <component> <observation moodCode= "EVN" classCode="OBS"> <templateId root="06.27.840.1.850549.10.20.22.4.2 " /> <id nullFlavor="NA" /> <code codeSystem="local" code= "46977-1" displayName="Urine protein assay by test strip, semi-quantitative" /> <statusCode code="completed" /> <effectiveTime value= "992688773072" /> <value unit="" xsi:type="PQ" value="4+" /> < referenceRange> <observationRange> <text>NEGATIVE</text > </observationRange> </referenceRange> </observation > </component> <component> <observation moodCode="EVN" classCode="OBS"> <templateId root="2.16.840.1.484943.10..22.4.2" /> <id nullFlavor="NA" /> <code codeSystem="local" code="79469-0 " displayName="Urine glucose detection by automated test strip" /> < statusCode code="completed" /> <effectiveTime value="322976492254" /> <value unit="" xsi:type="PQ" value="NEGATIVE" /> < referenceRange> <observationRange> <text>NEGATIVE</text > </observationRange> </referenceRange> </observation > </component> <component> <observation moodCode="EVN" classCode="OBS"> <templateId root="2.16.840.1.065149.10.20.22.4.2" /> <id nullFlavor="NA" /> <code codeSystem="local" code="68758-3 " displayName="Erythrocytes detection in urine sediment by light microscopy" /> <statusCode code="completed" /> <effectiveTime value= "318866213614" /> <value unit="" xsi:type="PQ" value="4+" /> < interpretationCode codeSystem="local" code="*" /> <referenceRange> <observationRange> <text>NEGATIVE</text> </ observationRange> </referenceRange> </observation> </ component> <component> <observation moodCode="EVN" classCode="OBS"> <templateId root="216.840.1.248590.10..22.4.2" /> <id nullFlavor="NA" /> <code codeSystem="local" code="88947-3" displayName= "Urine ketones detection by automated test strip" /> <statusCode code= "completed" /> <effectiveTime value="801099887515" /> <value unit="" xsi:type="PQ" value="1+" /> <interpretationCode codeSystem= "local" code="*" /> <referenceRange> <observationRange> <text>NEGATIVE</text> </observationRange> </ referenceRange> </observation> </component> <component> <observation moodCode="EVN" classCode="OBS"> <templateId root= "216.840.1.292360...4.2" /> <id nullFlavor="NA" /> < code codeSystem="local" code="5802-4" displayName="Urine nitrite detection by test strip" /> <statusCode code="completed" /> <effectiveTime value="557863501365" /> <value unit="" xsi:type="PQ" value="POSITIVE" / > <interpretationCode codeSystem="local" code="*" /> < referenceRange> <observationRange> <text>NEGATIVE</text > </observationRange> </referenceRange> </observation > </component> <component> <observation moodCode="EVN" classCode="OBS"> <templateId root="2.16.840.1.683370.10..22.4.2" /> <id nullFlavor="NA" /> <code codeSystem="local" code="5770-3" displayName="Urine total bilirubin detection by test strip" /> < statusCode code="completed" /> <effectiveTime value="518080046741" /> <value unit="" xsi:type="PQ" value="NEGATIVE" /> < referenceRange> <observationRange> <text>NEGATIVE</text > </observationRange> </referenceRange> </observation > </component> <component> <observation moodCode="EVN" classCode="OBS"> <templateId root="216.840.1.270917.10..4.2" /> <id nullFlavor="NA" /> <code codeSystem="local" code="89796-4 " displayName="Urine urobilinogen measurement by automated test strip (mass/ volume)" /> <statusCode code="completed" /> <effectiveTime value="893670201136" /> <value unit="mg/dL" xsi:type="PQ" value="4" /> <interpretationCode codeSystem="local" code="*" /> < referenceRange> <observationRange> <text>NORMAL</text> </observationRange> </referenceRange> </observation> </component> <component> <observation moodCode="EVN" classCode ="OBS"> <templateId root="16.840.1.826941.02.28.22.4.2" /> < id nullFlavor="NA" /> <code codeSystem="local" code="5799-2" displayName="Urine leukocyte esterase detection by dipstick" /> < statusCode code="completed" /> <effectiveTime value="011762268988" /> <value unit="" xsi:type="PQ" value="3+" /> < interpretationCode codeSystem="local" code="*" /> <referenceRange> <observationRange> <text>NEGATIVE</text> </ observationRange> </referenceRange> </observation> </ component> <component> <observation moodCode="EVN" classCode="OBS"> <templateId root="16.840.1.091268.10..22.4.2" /> <id nullFlavor="NA" /> <code codeSystem="local" code="14681-6" displayName= "Automated urine sediment erythrocyte count by microscopy (number/high power field)" /> <statusCode code="completed" /> <effectiveTime value="299098740420" /> <value unit="[HPF]" xsi:type="PQ" value="" /> <interpretationCode codeSystem="local" code="*" /> < referenceRange> <observationRange> <text>NRG</text> </observationRange> </referenceRange> </observation> </component> <component> <observation moodCode="EVN" classCode= "OBS"> <templateId root="06.27.840.1.434689.1022.4.2" /> < id nullFlavor="NA" /> <code codeSystem="local" code="5821-4" displayName="Automated urine sediment leukocyte count by microscopy (number/ high power field)" /> <statusCode code="completed" /> < effectiveTime value="995254140632" /> <value unit="" xsi:type="PQ" value="TNTC" /> <interpretationCode codeSystem="local" code="*" /> <referenceRange> <observationRange> <text>NRG</ text> </observationRange> </referenceRange> </ observation> </component> <component> <observation moodCode= "EVN" classCode="OBS"> <templateId root="06.27.840.1.086799.10.20.22.4.2 " /> <id nullFlavor="NA" /> <code codeSystem="local" code= "98171-0" displayName="Bacteria detection in urine sediment by light microscopy " /> <statusCode code="completed" /> <effectiveTime value= "321536939342" /> <value unit="" xsi:type="PQ" value="LARGE" /> <interpretationCode codeSystem="local" code="*" /> <referenceRange> <observationRange> <text>NRG</text> </ observationRange> </referenceRange> </observation> </ component> <component> <observation moodCode="EVN" classCode="OBS"> <templateId root="216.840.1.636881.10.22.4.2" /> <id nullFlavor="NA" /> <code codeSystem="local" code="61017-9" displayName= "Squamous epithelial cells detection in urine sediment by light microscopy" /> <statusCode code="completed" /> <effectiveTime value= "584786097700" /> <value unit="" xsi:type="PQ" value="10-25" /> <interpretationCode codeSystem="local" code="*" /> <referenceRange> <observationRange> <text>NRG</text> </ observationRange> </referenceRange> </observation> </ component> <component> <observation moodCode="EVN" classCode="OBS"> <templateId root="06.27.840.1.316941.10.4.2" /> <id nullFlavor="NA" /> <code codeSystem="local" code="89956-8" displayName= "Crystals detection in urine sediment by light microscopy" /> < statusCode code="completed" /> <effectiveTime value="061131533823" /> <value unit="" xsi:type="PQ" value="NONE" /> <referenceRange> <observationRange> <text>NRG</text> </ observationRange> </referenceRange> </observation> </ component> <component> <observation moodCode="EVN" classCode="OBS"> <templateId root="16.840.1.017418.10.2022.4.2" /> <id nullFlavor="NA" /> <code codeSystem="local" code="07964-4" displayName= "Casts detection in urine sediment by light microscopy" /> <statusCode code="completed" /> <effectiveTime value="004324220965" /> < value unit="" xsi:type="PQ" value="NONE" /> <referenceRange> <observationRange> <text>NRG</text> </observationRange > </referenceRange> </observation> </component> < component> <observation moodCode="EVN" classCode="OBS"> < templateId root="2.16.840.1.962020.10.20.22.4.2" /> <id nullFlavor="NA " /> <code codeSystem="local" code="8247-9" displayName="Mucus detection in urine sediment by light microscopy" /> <statusCode code= "completed" /> <effectiveTime value="805149077383" /> <value unit="" xsi:type="PQ" value="NEGATIVE" /> <referenceRange> < observationRange> <text>NRG</text> </observationRange> </referenceRange> </observation> </component> < component> <observation moodCode="EVN" classCode="OBS"> < templateId root="2.16.840.1.977720.10.20.22.4.2" /> <id nullFlavor="NA " /> <code codeSystem="local" code="17549-5" displayName="Complete urinalysis with reflex to culture" /> <statusCode code="completed" /> <effectiveTime value="100462043218" /> <value unit="" xsi:type ="PQ" value="YES" /> <referenceRange> <observationRange> <text>NRG</text> </observationRange> </ referenceRange> </observation> </component> </organizer> </entry > <entry> <organizer moodCode="EVN" classCode="BATTERY"> <templateId root="16.840.1.036481.10...4.1" /> <id nullFlavor="NA" /> <code codeSystem="local" code="630-4" displayName="Bacterial urine culture" /> < statusCode code="completed" /> <component> <observation moodCode= "EVN" classCode="OBS"> <templateId root="06.27.840.1.976221.02.28.22.4.2 " /> <id nullFlavor="NA" /> <code codeSystem="local" code="630 -4" displayName="Bacterial urine culture" /> <statusCode code= "completed" /> <effectiveTime value="933045895095" /> <value unit="" xsi:type="PQ" value="314732525" /> <referenceRange> <observationRange> <text>NRG</text> </observationRange> </referenceRange> </observation> </component> < component> <observation moodCode="EVN" classCode="OBS"> < templateId root="840.1.932179.02.28.22.4.2" /> <id nullFlavor="NA " /> <code codeSystem="local" code="CC" displayName="COLONY COUNT" /> <statusCode code="completed" /> <effectiveTime value= "153592924610" /> <value unit="" xsi:type="PQ" value=">100,000/ML" / > <referenceRange> <observationRange> <text>NRG </text> </observationRange> </referenceRange> </ observation> </component> <component> <observation moodCode= "EVN" classCode="OBS"> <templateId root="06.27.840.1.979495.02.28.22.4.2 " /> <id nullFlavor="NA" /> <code codeSystem="local" code= "FTXENTRY" displayName="FTX;REPORTABLE" /> <statusCode code="completed " /> <effectiveTime value="223836562095" /> <value unit="" xsi :type="PQ" value="SUSCEPTIBILITY REPORTED 03-21-2018,1005" /> < referenceRange> <observationRange> <text>NRG</text> </observationRange> </referenceRange> </observation> </component> </organizer> </entry> <entry> <organizer moodCode="EVN" classCode="BATTERY"> <templateId root="216.840.1.538503.10..22.4.1" /> <id nullFlavor="NA" /> <code codeSystem="local" code="RML-SENS" displayName="RML Sensitivity Panel" /> <statusCode code="completed" /> <component> <observation moodCode="EVN" classCode="OBS"> < templateId root="216.840.1.197886.10..22.4.2" /> <id nullFlavor="NA " /> <code codeSystem="local" code="267-5" displayName="Gentamicin susceptibility test by minimum inhibitory concentration" /> < statusCode code="completed" /> <effectiveTime value="265912009576" /> <value unit="" xsi:type="PQ" value="<=" /> < interpretationCode codeSystem="local" code="*" /> <referenceRange> <observationRange> <text>NRG</text> </ observationRange> </referenceRange> </observation> </ component> <component> <observation moodCode="EVN" classCode="OBS"> <templateId root="216.840.1.025784.10..22.4.2" /> <id nullFlavor="NA" /> <code codeSystem="local" code="516-5" displayName= "Trimethoprim/sulfamethoxazole susceptibility test by minimum inhibitoryconcentration" /> <statusCode code="completed" /> < effectiveTime value="114318588790" /> <value unit="" xsi:type="PQ" value=">" /> <interpretationCode codeSystem="local" code="*" /> <referenceRange> <observationRange> <text>NRG</ text> </observationRange> </referenceRange> </ observation> </component> <component> <observation moodCode= "EVN" classCode="OBS"> <templateId root="2.16.840.1.453558.10..4.2 " /> <id nullFlavor="NA" /> <code codeSystem="local" code= "56994-1" displayName="Levofloxacin susceptibility test by minimum inhibitory concentration" /> <statusCode code="completed" /> < effectiveTime value="797567057574" /> <value unit="" xsi:type="PQ" value="<=" /> <interpretationCode codeSystem="local" code="*" /> <referenceRange> <observationRange> <text>NRG</ text> </observationRange> </referenceRange> </ observation> </component> <component> <observation moodCode= "EVN" classCode="OBS"> <templateId root="216.840.1.184362.10.22.4.2 " /> <id nullFlavor="NA" /> <code codeSystem="local" code="28- 1" displayName="Ampicillin susceptibility test by minimum inhibitory concentration" /> <statusCode code="completed" /> < effectiveTime value="146689575605" /> <value unit="" xsi:type="PQ" value=">" /> <interpretationCode codeSystem="local" code="*" /> <referenceRange> <observationRange> <text>NRG</ text> </observationRange> </referenceRange> </ observation> </component> <component> <observation moodCode= "EVN" classCode="OBS"> <templateId root="06.27.840.1.951029.10.20.22.4.2 " /> <id nullFlavor="NA" /> <code codeSystem="local" code="76- 0" displayName="Cefazolin susceptibility test by minimum inhibitory concentration" /> <statusCode code="completed" /> < effectiveTime value="370463206128" /> <value unit="" xsi:type="PQ" value="2" /> <interpretationCode codeSystem="local" code="*" /> <referenceRange> <observationRange> <text>NRG</text> </observationRange> </referenceRange> </observation > </component> <component> <observation moodCode="EVN" classCode="OBS"> <templateId root="840.1.384983.10..22.4.2" /> <id nullFlavor="NA" /> <code codeSystem="local" code="141-2" displayName="Ceftriaxone susceptibility test by minimum inhibitory concentration " /> <statusCode code="completed" /> <effectiveTime value= "124593637921" /> <value unit="" xsi:type="PQ" value="<=" /> <interpretationCode codeSystem="local" code="*" /> <referenceRange> <observationRange> <text>NRG</text> </ observationRange> </referenceRange> </observation> </ component> <component> <observation moodCode="EVN" classCode="OBS"> <templateId root="06.27.840.1.851590.10.20.22.4.2" /> <id nullFlavor="NA" /> <code codeSystem="local" code="185-9" displayName= "Ciprofloxacin susceptibility test by minimum inhibitory concentration" /> <statusCode code="completed" /> <effectiveTime value="065117976029 " /> <value unit="" xsi:type="PQ" value="<=" /> < interpretationCode codeSystem="local" code="*" /> <referenceRange> <observationRange> <text>NRG</text> </ observationRange> </referenceRange> </observation> </ component> <component> <observation moodCode="EVN" classCode="OBS"> <templateId root="2.16.840.1.219176.10..22.4.2" /> <id nullFlavor="NA" /> <code codeSystem="local" code="6652-2" displayName= "Meropenem susceptibility test by minimum inhibitory concentration" /> <statusCode code="completed" /> <effectiveTime value="089530901814" /> <value unit="" xsi:type="PQ" value="<=" /> < interpretationCode codeSystem="local" code="*" /> <referenceRange> <observationRange> <text>NRG</text> </ observationRange> </referenceRange> </observation> </ component> <component> <observation moodCode="EVN" classCode="OBS"> <templateId root="2.16.840.1.831023.10.20.22.4.2" /> <id nullFlavor="NA" /> <code codeSystem="local" code="363-2" displayName= "Nitrofurantoin susceptibility test by minimum inhibitory concentration" /> <statusCode code="completed" /> <effectiveTime value= "598580924777" /> <value unit="" xsi:type="PQ" value="<=" /> <interpretationCode codeSystem="local" code="*" /> <referenceRange> <observationRange> <text>NRG</text> </ observationRange> </referenceRange> </observation> </ component> <component> <observation moodCode="EVN" classCode="OBS"> <templateId root="216.840.1.977908.10.20.22.4.2" /> <id nullFlavor="NA" /> <code codeSystem="local" code="20" displayName= "Amoxicillin and clavulanate potassium susc SHAYNA" /> <statusCode code= "completed" /> <effectiveTime value="073055445976" /> <value unit="" xsi:type="PQ" value="=" /> <interpretationCode codeSystem= "local" code="*" /> <referenceRange> <observationRange> <text>NRG</text> </observationRange> </ referenceRange> </observation> </component> </organizer> </entry > <entry> <organizer moodCode="EVN" classCode="BATTERY"> <templateId root="216.840.1.781358.10.20.22.4.1" /> <id nullFlavor="NA" /> <code codeSystem="local" code="23291-9" displayName="Complete blood count (CBC) with automated white blood cell (WBC) differential" /> <statusCode code= "completed" /> <component> <observation moodCode="EVN" classCode= "OBS"> <templateId root="216.840.1.240039.10.20.22.4.2" /> < id nullFlavor="NA" /> <code codeSystem="local" code="6690-2" displayName="Blood leukocytes automated count (number/volume)" /> < statusCode code="completed" /> <effectiveTime value="896797323482" /> <value unit="10*3/uL" xsi:type="PQ" value="18.7" /> < interpretationCode codeSystem="local" code="" /> <referenceRange> <observationRange> <text>4.3-11.0</text> </ observationRange> </referenceRange> </observation> </ component> <component> <observation moodCode="EVN" classCode="OBS"> <templateId root="2.16.840.1.544563.10..22.4.2" /> <id nullFlavor="NA" /> <code codeSystem="local" code="789-8" displayName= "Blood erythrocytes automated count (number/volume)" /> <statusCode code="completed" /> <effectiveTime value="124374086315" /> < value unit="10*6/uL" xsi:type="PQ" value="4.35" /> <referenceRange> <observationRange> <text>4.35-5.85</text> </ observationRange> </referenceRange> </observation> </ component> <component> <observation moodCode="EVN" classCode="OBS"> <templateId root="2.16.840.1.063947.10...4.2" /> <id nullFlavor="NA" /> <code codeSystem="local" code="49715-1" displayName= "Venous blood hemoglobin measurement (mass/volume)" /> <statusCode code ="completed" /> <effectiveTime value="191794116720" /> <value unit="g/dL" xsi:type="PQ" value="10.7" /> <interpretationCode codeSystem="local" code="" /> <referenceRange> < observationRange> <text>11.5-16.0</text> </ observationRange> </referenceRange> </observation> </ component> <component> <observation moodCode="EVN" classCode="OBS"> <templateId root="2.16.840.1.522199.10.20.22.4.2" /> <id nullFlavor="NA" /> <code codeSystem="local" code="97456-1" displayName= "Blood hematocrit (volume fraction)" /> <statusCode code="completed" / > <effectiveTime value="639638898888" /> <value unit="%" xsi:type="PQ" value="33" /> <interpretationCode codeSystem="local" code ="" /> <referenceRange> <observationRange> < text>35-52</text> </observationRange> </referenceRange> </observation> </component> <component> <observation moodCode="EVN" classCode="OBS"> <templateId root= "216.840.1.228298.10.22.4.2" /> <id nullFlavor="NA" /> < code codeSystem="local" code="787-2" displayName="Automated erythrocyte mean corpuscular volume" /> <statusCode code="completed" /> < effectiveTime value="026482798332" /> <value unit="[foz_us]" xsi:type= "PQ" value="75" /> <interpretationCode codeSystem="local" code="" /> <referenceRange> <observationRange> <text>80- 99</text> </observationRange> </referenceRange> </ observation> </component> <component> <observation moodCode= "EVN" classCode="OBS"> <templateId root="16.840.1.068436.10.20.22.4.2 " /> <id nullFlavor="NA" /> <code codeSystem="local" code="785 -6" displayName="Automated erythrocyte mean corpuscular hemoglobin (mass per erythrocyte)" /> <statusCode code="completed" /> < effectiveTime value="616311043037" /> <value unit="pg" xsi:type="PQ" value="25" /> <referenceRange> <observationRange> <text>25-34</text> </observationRange> </referenceRange > </observation> </component> <component> <observation moodCode="EVN" classCode="OBS"> <templateId root= "2.16.840.1.233497.10.20.22.4.2" /> <id nullFlavor="NA" /> < code codeSystem="local" code="786-4" displayName="Automated erythrocyte mean corpuscular hemoglobin concentration measurement (mass/volume)" /> < statusCode code="completed" /> <effectiveTime value="766620946331" /> <value unit="g/dL" xsi:type="PQ" value="33" /> <referenceRange > <observationRange> <text>32-36</text> </ observationRange> </referenceRange> </observation> </ component> <component> <observation moodCode="EVN" classCode="OBS"> <templateId root="2.16.840.1.616692.10..22.4.2" /> <id nullFlavor="NA" /> <code codeSystem="local" code="788-0" displayName= "Automated erythrocyte distribution width ratio" /> <statusCode code= "completed" /> <effectiveTime value="506620259708" /> <value unit="%" xsi:type="PQ" value="21.0" /> <interpretationCode codeSystem="local" code="" /> <referenceRange> < observationRange> <text>10.0-14.5</text> </ observationRange> </referenceRange> </observation> </ component> <component> <observation moodCode="EVN" classCode="OBS"> <templateId root="2.16.840.1.301790.10.20.4.2" /> <id nullFlavor="NA" /> <code codeSystem="local" code="777-3" displayName= "Automated blood platelet count (count/volume)" /> <statusCode code= "completed" /> <effectiveTime value="729823806706" /> <value unit="10*3/uL" xsi:type="PQ" value="348" /> <referenceRange> <observationRange> <text>130-400</text> </ observationRange> </referenceRange> </observation> </ component> <component> <observation moodCode="EVN" classCode="OBS"> <templateId root="216.840.1.624668.1022.4.2" /> <id nullFlavor="NA" /> <code codeSystem="local" code="30587-1" displayName= "Automated blood platelet mean volume measurement" /> <statusCode code= "completed" /> <effectiveTime value="998178488088" /> <value unit="[foz_us]" xsi:type="PQ" value="11.0" /> <interpretationCode codeSystem="local" code="" /> <referenceRange> < observationRange> <text>7.4-10.4</text> </ observationRange> </referenceRange> </observation> </ component> <component> <observation moodCode="EVN" classCode="OBS"> <templateId root="216.840.1.743097.10.22.4.2" /> <id nullFlavor="NA" /> <code codeSystem="local" code="770-8" displayName= "Automated blood neutrophils/100 leukocytes" /> <statusCode code= "completed" /> <effectiveTime value="893656479297" /> <value unit="%" xsi:type="PQ" value="86" /> <interpretationCode codeSystem ="local" code="" /> <referenceRange> <observationRange> <text>42-75</text> </observationRange> </ referenceRange> </observation> </component> <component> <observation moodCode="EVN" classCode="OBS"> <templateId root= "2.16.840.1.353499.10.20.22.4.2" /> <id nullFlavor="NA" /> < code codeSystem="local" code="736-9" displayName="Automated blood lymphocytes/ 100 leukocytes" /> <statusCode code="completed" /> < effectiveTime value="228872144129" /> <value unit="%" xsi:type="PQ " value="6" /> <interpretationCode codeSystem="local" code="" /> <referenceRange> <observationRange> <text>12-44</ text> </observationRange> </referenceRange> </ observation> </component> <component> <observation moodCode= "EVN" classCode="OBS"> <templateId root="216.840.1.094603.10..4.2 " /> <id nullFlavor="NA" /> <code codeSystem="local" code= "54278-7" displayName="Blood monocytes/100 leukocytes" /> <statusCode code="completed" /> <effectiveTime value="224431416139" /> < value unit="%" xsi:type="PQ" value="8" /> <referenceRange> <observationRange> <text>0-12</text> </ observationRange> </referenceRange> </observation> </ component> <component> <observation moodCode="EVN" classCode="OBS"> <templateId root="2.16.840.1.671515.10.20.22.4.2" /> <id nullFlavor="NA" /> <code codeSystem="local" code="713-8" displayName= "Automated blood eosinophils/100 leukocytes" /> <statusCode code= "completed" /> <effectiveTime value="896114895969" /> <value unit="%" xsi:type="PQ" value="0" /> <referenceRange> < observationRange> <text>0-10</text> </observationRange> </referenceRange> </observation> </component> < component> <observation moodCode="EVN" classCode="OBS"> < templateId root="2.16.840.1.685278.10.20.22.4.2" /> <id nullFlavor="NA " /> <code codeSystem="local" code="706-2" displayName="Automated blood basophils/100 leukocytes" /> <statusCode code="completed" /> <effectiveTime value="442228013678" /> <value unit="%" xsi: type="PQ" value="0" /> <referenceRange> <observationRange> <text>0-10</text> </observationRange> </ referenceRange> </observation> </component> <component> <observation moodCode="EVN" classCode="OBS"> <templateId root= "2.16.840.1.985956.10.20.22.4.2" /> <id nullFlavor="NA" /> < code codeSystem="local" code="751-8" displayName="Blood neutrophils automated count (number/volume)" /> <statusCode code="completed" /> < effectiveTime value="825750114368" /> <value unit="10*3" xsi:type="PQ" value="16.0" /> <interpretationCode codeSystem="local" code="" /> <referenceRange> <observationRange> <text>1.8-7.8 </text> </observationRange> </referenceRange> </ observation> </component> <component> <observation moodCode= "EVN" classCode="OBS"> <templateId root="2.16.840.1.193736.10..22.4.2 " /> <id nullFlavor="NA" /> <code codeSystem="local" code="731 -0" displayName="Blood lymphocytes automated count (number/volume)" /> <statusCode code="completed" /> <effectiveTime value="856347885084" /> <value unit="10*3" xsi:type="PQ" value="1.2" /> < referenceRange> <observationRange> <text>1.0-4.0</text> </observationRange> </referenceRange> </observation > </component> <component> <observation moodCode="EVN" classCode="OBS"> <templateId root="216.840.1.680526.02.28.22.4.2" /> <id nullFlavor="NA" /> <code codeSystem="local" code="742-7" displayName="Blood monocytes automated count (number/volume)" /> < statusCode code="completed" /> <effectiveTime value="474891015372" /> <value unit="10*3" xsi:type="PQ" value="1.5" /> < interpretationCode codeSystem="local" code="" /> <referenceRange> <observationRange> <text>0.0-1.0</text> </ observationRange> </referenceRange> </observation> </ component> <component> <observation moodCode="EVN" classCode="OBS"> <templateId root="2.16.840.1.160460.10.20.22.4.2" /> <id nullFlavor="NA" /> <code codeSystem="local" code="711-2" displayName= "Automated eosinophil count" /> <statusCode code="completed" /> <effectiveTime value="553588768818" /> <value unit="10*3/uL" xsi: type="PQ" value="0.0" /> <referenceRange> <observationRange > <text>0.0-0.3</text> </observationRange> </ referenceRange> </observation> </component> <component> <observation moodCode="EVN" classCode="OBS"> <templateId root= "06.27.840.1.988156.10..4.2" /> <id nullFlavor="NA" /> < code codeSystem="local" code="704-7" displayName="Automated blood basophil count (count/volume)" /> <statusCode code="completed" /> < effectiveTime value="921887147326" /> <value unit="10*3/uL" xsi:type= "PQ" value="0.0" /> <referenceRange> <observationRange> <text>0.0-0.1</text> </observationRange> </ referenceRange> </observation> </component> </organizer> </entry > <entry> <organizer moodCode="EVN" classCode="BATTERY"> <templateId root="06.27.840.1.023059.10...4.1" /> <id nullFlavor="NA" /> <code codeSystem="local" code="74051-3" displayName="Blood lactic acid measurement ( moles/volume)" /> <statusCode code="completed" /> <component> < observation moodCode="EVN" classCode="OBS"> <templateId root= "06.27.840.1.867581.10.22.4.2" /> <id nullFlavor="NA" /> < code codeSystem="local" code="47670-7" displayName="Blood lactic acid measurement (moles/volume)" /> <statusCode code="completed" /> <effectiveTime value="887773469114" /> <value unit="mmol/L" xsi:type= "PQ" value="2.13" /> <interpretationCode codeSystem="local" code="" / > <referenceRange> <observationRange> <text> 0.50-2.00</text> </observationRange> </referenceRange> </observation> </component> </organizer> </entry> <entry> < organizer moodCode="EVN" classCode="BATTERY"> <templateId root= "2.16.840.1.490591.10.20.22.4.1" /> <id nullFlavor="NA" /> <code codeSystem="local" code="600-7" displayName="Bacterial blood culture" /> < statusCode code="completed" /> <component> <observation moodCode= "EVN" classCode="OBS"> <templateId root="2.16.840.1.632858.10.20.22.4.2 " /> <id nullFlavor="NA" /> <code codeSystem="local" code="600 -7" displayName="Bacterial blood culture" /> <statusCode code= "completed" /> <effectiveTime value="321150650567" /> <value unit="" xsi:type="PQ" value="NG" /> <referenceRange> < observationRange> <text>NRG</text> </observationRange> </referenceRange> </observation> </component> </ organizer> </entry> <entry> <organizer moodCode="EVN" classCode="BATTERY"> <templateId root="2.16.840.1.872279.10.20.22.4.1" /> <id nullFlavor= "NA" /> <code codeSystem="local" code="600-7" displayName="Bacterial blood culture" /> <statusCode code="completed" /> <component> < observation moodCode="EVN" classCode="OBS"> <templateId root= "2.16.840.1.458254.10.20.22.4.2" /> <id nullFlavor="NA" /> < code codeSystem="local" code="600-7" displayName="Bacterial blood culture" /> <statusCode code="completed" /> <effectiveTime value= "032819042905" /> <value unit="" xsi:type="PQ" value="NG" /> < referenceRange> <observationRange> <text>NRG</text> </observationRange> </referenceRange> </observation> </component> </organizer> </entry> <entry> <organizer moodCode="EVN" classCode="BATTERY"> <templateId root="2.16.840.1.550815.10.20.22.4.1" /> <id nullFlavor="NA" /> <code codeSystem="local" code="73781-3" displayName="Influenza virus A and B antigen detection" /> <statusCode code ="completed" /> <component> <observation moodCode="EVN" classCode= "OBS"> <templateId root="2.16.840.1.366284.10.20.22.4.2" /> < id nullFlavor="NA" /> <code codeSystem="local" code="FLURESULT" displayName="FLU RESULT" /> <statusCode code="completed" /> < effectiveTime value="804615487334" /> <value unit="" xsi:type="PQ" value="NEGATIVE FOR INFLUENZA A AND B ANTIGENS BY IA" /> < referenceRange> <observationRange> <text>NRG</text> </observationRange> </referenceRange> </observation> </component> </organizer> </entry> <entry> <organizer moodCode="EVN" classCode="BATTERY"> <templateId root="06.27.840.1.610600.10..22.4.1" /> <id nullFlavor="NA" /> <code codeSystem="local" code="2524" displayName="Serum or plasma lactate measurement (moles/volume)" /> < statusCode code="completed" /> <component> <observation moodCode= "EVN" classCode="OBS"> <templateId root="06.27.840.1.453842.10.22.4.2 " /> <id nullFlavor="NA" /> <code codeSystem="local" code= "2524" displayName="Serum or plasma lactate measurement (moles/volume)" /> <statusCode code="completed" /> <effectiveTime value= "857307187680" /> <value unit="mmol/L" xsi:type="PQ" value="0.83" /> <referenceRange> <observationRange> <text>0.50- 2.00</text> </observationRange> </referenceRange> </ observation> </component> </organizer> </entry> <entry> <organizer moodCode="EVN" classCode="BATTERY"> <templateId root= "06.27.840.1.385983.10..22.4.1" /> <id nullFlavor="NA" /> <code codeSystem="local" code="77039-9" displayName="Complete blood count (CBC) with automated white blood cell (WBC) differential" /> <statusCode code= "completed" /> <component> <observation moodCode="EVN" classCode= "OBS"> <templateId root="06.27.840.1.235994.10.20.22.4.2" /> < id nullFlavor="NA" /> <code codeSystem="local" code="6690-2" displayName="Blood leukocytes automated count (number/volume)" /> < statusCode code="completed" /> <effectiveTime value="629671742321" /> <value unit="10*3/uL" xsi:type="PQ" value="12.7" /> < interpretationCode codeSystem="local" code="" /> <referenceRange> <observationRange> <text>4.3-11.0</text> </ observationRange> </referenceRange> </observation> </ component> <component> <observation moodCode="EVN" classCode="OBS"> <templateId root="2.16.840.1.236577.10..22.4.2" /> <id nullFlavor="NA" /> <code codeSystem="local" code="789-8" displayName= "Blood erythrocytes automated count (number/volume)" /> <statusCode code="completed" /> <effectiveTime value="575661770673" /> < value unit="10*6/uL" xsi:type="PQ" value="3.41" /> <interpretationCode codeSystem="local" code="" /> <referenceRange> < observationRange> <text>4.35-5.85</text> </ observationRange> </referenceRange> </observation> </ component> <component> <observation moodCode="EVN" classCode="OBS"> <templateId root="2.16.840.1.182913.10.22.4.2" /> <id nullFlavor="NA" /> <code codeSystem="local" code="42923-7" displayName= "Venous blood hemoglobin measurement (mass/volume)" /> <statusCode code ="completed" /> <effectiveTime value="486053005890" /> <value unit="g/dL" xsi:type="PQ" value="8.3" /> <interpretationCode codeSystem ="local" code="" /> <referenceRange> <observationRange> <text>11.5-16.0</text> </observationRange> </ referenceRange> </observation> </component> <component> <observation moodCode="EVN" classCode="OBS"> <templateId root= "216.840.1.680794.10.20.22.4.2" /> <id nullFlavor="NA" /> < code codeSystem="local" code="02775-1" displayName="Blood hematocrit (volume fraction)" /> <statusCode code="completed" /> <effectiveTime value="708574458106" /> <value unit="%" xsi:type="PQ" value="26" / > <interpretationCode codeSystem="local" code="" /> < referenceRange> <observationRange> <text>35-52</text> </observationRange> </referenceRange> </observation> </component> <component> <observation moodCode="EVN" classCode= "OBS"> <templateId root="16.840.1.267100.10..4.2" /> < id nullFlavor="NA" /> <code codeSystem="local" code="787-2" displayName ="Automated erythrocyte mean corpuscular volume" /> <statusCode code= "completed" /> <effectiveTime value="673985558518" /> <value unit="[foz_us]" xsi:type="PQ" value="77" /> <interpretationCode codeSystem="local" code="" /> <referenceRange> < observationRange> <text>80-99</text> </observationRange > </referenceRange> </observation> </component> < component> <observation moodCode="EVN" classCode="OBS"> < templateId root="216.840.1.638440.10.20.22.4.2" /> <id nullFlavor="NA " /> <code codeSystem="local" code="785-6" displayName="Automated erythrocyte mean corpuscular hemoglobin (mass per erythrocyte)" /> < statusCode code="completed" /> <effectiveTime value="913960905556" /> <value unit="pg" xsi:type="PQ" value="24" /> < interpretationCode codeSystem="local" code="" /> <referenceRange> <observationRange> <text>25-34</text> </ observationRange> </referenceRange> </observation> </ component> <component> <observation moodCode="EVN" classCode="OBS"> <templateId root="2.16.840.1.230418.10.20.22.4.2" /> <id nullFlavor="NA" /> <code codeSystem="local" code="786-4" displayName= "Automated erythrocyte mean corpuscular hemoglobin concentration measurement ( mass/volume)" /> <statusCode code="completed" /> < effectiveTime value="837360798312" /> <value unit="g/dL" xsi:type="PQ" value="31" /> <interpretationCode codeSystem="local" code="" /> <referenceRange> <observationRange> <text>32-36</ text> </observationRange> </referenceRange> </ observation> </component> <component> <observation moodCode= "EVN" classCode="OBS"> <templateId root="2.16.840.1.599627.10.20.22.4.2 " /> <id nullFlavor="NA" /> <code codeSystem="local" code="788 -0" displayName="Automated erythrocyte distribution width ratio" /> < statusCode code="completed" /> <effectiveTime value="007801527423" /> <value unit="%" xsi:type="PQ" value="19.9" /> < interpretationCode codeSystem="local" code="" /> <referenceRange> <observationRange> <text>10.0-14.5</text> </ observationRange> </referenceRange> </observation> </ component> <component> <observation moodCode="EVN" classCode="OBS"> <templateId root="2.16.840.1.589167.10..22.4.2" /> <id nullFlavor="NA" /> <code codeSystem="local" code="777-3" displayName= "Automated blood platelet count (count/volume)" /> <statusCode code= "completed" /> <effectiveTime value="765227572980" /> <value unit="10*3/uL" xsi:type="PQ" value="222" /> <referenceRange> <observationRange> <text>130-400</text> </ observationRange> </referenceRange> </observation> </ component> <component> <observation moodCode="EVN" classCode="OBS"> <templateId root="2.16.840.1.952689.10...4.2" /> <id nullFlavor="NA" /> <code codeSystem="local" code="02930-1" displayName= "Automated blood platelet mean volume measurement" /> <statusCode code= "completed" /> <effectiveTime value="685553962864" /> <value unit="[foz_us]" xsi:type="PQ" value="11.0" /> <interpretationCode codeSystem="local" code="" /> <referenceRange> < observationRange> <text>7.4-10.4</text> </ observationRange> </referenceRange> </observation> </ component> <component> <observation moodCode="EVN" classCode="OBS"> <templateId root="2.16.840.1.109468.10.20.22.4.2" /> <id nullFlavor="NA" /> <code codeSystem="local" code="770-8" displayName= "Automated blood neutrophils/100 leukocytes" /> <statusCode code= "completed" /> <effectiveTime value="365705267188" /> <value unit="%" xsi:type="PQ" value="87" /> <interpretationCode codeSystem ="local" code="" /> <referenceRange> <observationRange> <text>42-75</text> </observationRange> </ referenceRange> </observation> </component> <component> <observation moodCode="EVN" classCode="OBS"> <templateId root= "16.840.1.370868.10.2022.4.2" /> <id nullFlavor="NA" /> < code codeSystem="local" code="736-9" displayName="Automated blood lymphocytes/ 100 leukocytes" /> <statusCode code="completed" /> < effectiveTime value="983023491670" /> <value unit="%" xsi:type="PQ " value="5" /> <interpretationCode codeSystem="local" code="" /> <referenceRange> <observationRange> <text>12-44</ text> </observationRange> </referenceRange> </ observation> </component> <component> <observation moodCode= "EVN" classCode="OBS"> <templateId root="06.27.840.1.031722.10.20.22.4.2 " /> <id nullFlavor="NA" /> <code codeSystem="local" code= "68564-1" displayName="Blood monocytes/100 leukocytes" /> <statusCode code="completed" /> <effectiveTime value="642045635290" /> < value unit="%" xsi:type="PQ" value="7" /> <referenceRange> <observationRange> <text>0-12</text> </ observationRange> </referenceRange> </observation> </ component> <component> <observation moodCode="EVN" classCode="OBS"> <templateId root="216.840.1.308866.10.20.22.4.2" /> <id nullFlavor="NA" /> <code codeSystem="local" code="713-8" displayName= "Automated blood eosinophils/100 leukocytes" /> <statusCode code= "completed" /> <effectiveTime value="985637669309" /> <value unit="%" xsi:type="PQ" value="0" /> <referenceRange> < observationRange> <text>0-10</text> </observationRange> </referenceRange> </observation> </component> < component> <observation moodCode="EVN" classCode="OBS"> < templateId root="06.27.840.1.048435.10.20.22.4.2" /> <id nullFlavor="NA " /> <code codeSystem="local" code="706-2" displayName="Automated blood basophils/100 leukocytes" /> <statusCode code="completed" /> <effectiveTime value="877214092411" /> <value unit="%" xsi: type="PQ" value="0" /> <referenceRange> <observationRange> <text>0-10</text> </observationRange> </ referenceRange> </observation> </component> <component> <observation moodCode="EVN" classCode="OBS"> <templateId root= "16.840.1.671393.10.20.22.4.2" /> <id nullFlavor="NA" /> < code codeSystem="local" code="751-8" displayName="Blood neutrophils automated count (number/volume)" /> <statusCode code="completed" /> < effectiveTime value="646092008179" /> <value unit="10*3" xsi:type="PQ" value="11.1" /> <interpretationCode codeSystem="local" code="" /> <referenceRange> <observationRange> <text>1.8-7.8 </text> </observationRange> </referenceRange> </ observation> </component> <component> <observation moodCode= "EVN" classCode="OBS"> <templateId root="2.16.840.1.900941.10..22.4.2 " /> <id nullFlavor="NA" /> <code codeSystem="local" code="731 -0" displayName="Blood lymphocytes automated count (number/volume)" /> <statusCode code="completed" /> <effectiveTime value="" /> <value unit="10*3" xsi:type="PQ" value="0.7" /> < interpretationCode codeSystem="local" code="" /> <referenceRange> <observationRange> <text>1.0-4.0</text> </ observationRange> </referenceRange> </observation> </ component> <component> <observation moodCode="EVN" classCode="OBS"> <templateId root="2.16.840.1.832373.10.2022.4.2" /> <id nullFlavor="NA" /> <code codeSystem="local" code="742-7" displayName= "Blood monocytes automated count (number/volume)" /> <statusCode code= "completed" /> <effectiveTime value="848985543347" /> <value unit="10*3" xsi:type="PQ" value="0.9" /> <referenceRange> < observationRange> <text>0.0-1.0</text> </ observationRange> </referenceRange> </observation> </ component> <component> <observation moodCode="EVN" classCode="OBS"> <templateId root="216.840.1.032486.10..22.4.2" /> <id nullFlavor="NA" /> <code codeSystem="local" code="711-2" displayName= "Automated eosinophil count" /> <statusCode code="completed" /> <effectiveTime value="" /> <value unit="10*3/uL" xsi: type="PQ" value="0.0" /> <referenceRange> <observationRange > <text>0.0-0.3</text> </observationRange> </ referenceRange> </observation> </component> <component> <observation moodCode="EVN" classCode="OBS"> <templateId root= "06.27.840.1.354906.02.28.22.4.2" /> <id nullFlavor="NA" /> < code codeSystem="local" code="704-7" displayName="Automated blood basophil count (count/volume)" /> <statusCode code="completed" /> < effectiveTime value="" /> <value unit="10*3/uL" xsi:type= "PQ" value="0.0" /> <referenceRange> <observationRange> <text>0.0-0.1</text> </observationRange> </ referenceRange> </observation> </component> </organizer> </entry > <entry> <organizer moodCode="EVN" classCode="BATTERY"> <templateId root="216.840.1.724183.10..22.4.1" /> <id nullFlavor="NA" /> <code codeSystem="local" code="12180-0" displayName="Comprehensive metabolic panel" / > <statusCode code="completed" /> <component> <observation moodCode="EVN" classCode="OBS"> <templateId root= "216.840.1.837141.10.20.22.4.2" /> <id nullFlavor="NA" /> < code codeSystem="local" code="2951-2" displayName="Serum or plasma sodium measurement (moles/volume)" /> <statusCode code="completed" /> <effectiveTime value="902236243054" /> <value unit="mmol/L" xsi:type= "PQ" value="137" /> <referenceRange> <observationRange> <text>135-145</text> </observationRange> </ referenceRange> </observation> </component> <component> <observation moodCode="EVN" classCode="OBS"> <templateId root= "06.27.840.1.282670.10.22.4.2" /> <id nullFlavor="NA" /> < code codeSystem="local" code="2823-3" displayName="Serum or plasma potassium measurement (moles/volume)" /> <statusCode code="completed" /> <effectiveTime value="430881115056" /> <value unit="mmol/L" xsi:type= "PQ" value="2.9" /> <interpretationCode codeSystem="local" code="" / > <referenceRange> <observationRange> <text>3.6 -5.0</text> </observationRange> </referenceRange> </ observation> </component> <component> <observation moodCode= "EVN" classCode="OBS"> <templateId root="216.840.1.542979.10.20.22.4.2 " /> <id nullFlavor="NA" /> <code codeSystem="local" code= "2075-0" displayName="Serum or plasma chloride measurement (moles/volume)" /> <statusCode code="completed" /> <effectiveTime value= "771231417214" /> <value unit="mmol/L" xsi:type="PQ" value="113" /> <interpretationCode codeSystem="local" code="" /> < referenceRange> <observationRange> <text>98-107</text> </observationRange> </referenceRange> </observation> </component> <component> <observation moodCode="EVN" classCode ="OBS"> <templateId root="2.16.840.1.713811.10.20.22.4.2" /> < id nullFlavor="NA" /> <code codeSystem="local" code="2028-01" displayName="Carbon dioxide" /> <statusCode code="completed" /> <effectiveTime value="727329617196" /> <value unit="mmol/L" xsi:type ="PQ" value="18" /> <interpretationCode codeSystem="local" code="" / > <referenceRange> <observationRange> <text>21- 32</text> </observationRange> </referenceRange> </ observation> </component> <component> <observation moodCode= "EVN" classCode="OBS"> <templateId root="2.16.840.1.898148.10.20.22.4.2 " /> <id nullFlavor="NA" /> <code codeSystem="local" code= "77679-4" displayName="Serum or plasma anion gap determination (moles/volume)" / > <statusCode code="completed" /> <effectiveTime value= "078106322641" /> <value unit="mmol/L" xsi:type="PQ" value="6" /> <referenceRange> <observationRange> <text>5-14</ text> </observationRange> </referenceRange> </ observation> </component> <component> <observation moodCode= "EVN" classCode="OBS"> <templateId root="2.16.840.1.128012.10..22.4.2 " /> <id nullFlavor="NA" /> <code codeSystem="local" code= "3094-0" displayName="Serum or plasma urea nitrogen measurement (mass/volume)" / > <statusCode code="completed" /> <effectiveTime value= "164764384565" /> <value unit="mg/dL" xsi:type="PQ" value="12" /> <referenceRange> <observationRange> <text>7-18</ text> </observationRange> </referenceRange> </ observation> </component> <component> <observation moodCode= "EVN" classCode="OBS"> <templateId root="2.16.840.1.073880.10..22.4.2 " /> <id nullFlavor="NA" /> <code codeSystem="local" code= "2160-0" displayName="Serum or plasma creatinine measurement (mass/volume)" /> <statusCode code="completed" /> <effectiveTime value= "575518359982" /> <value unit="mg/dL" xsi:type="PQ" value="0.68" /> <referenceRange> <observationRange> <text>0.60- 1.30</text> </observationRange> </referenceRange> </ observation> </component> <component> <observation moodCode= "EVN" classCode="OBS"> <templateId root="2.16.840.1.844984.10..22.4.2 " /> <id nullFlavor="NA" /> <code codeSystem="local" code= "3097-3" displayName="Serum or plasma urea nitrogen/creatinine mass ratio" /> <statusCode code="completed" /> <effectiveTime value= "977384309874" /> <value unit="" xsi:type="PQ" value="18" /> < referenceRange> <observationRange> <text>NRG</text> </observationRange> </referenceRange> </observation> </component> <component> <observation moodCode="EVN" classCode= "OBS"> <templateId root="2.16.840.1.992322.10.20.22.4.2" /> < id nullFlavor="NA" /> <code codeSystem="local" code="94829-9" displayName="Serum or plasma creatinine measurement with calculation of estimated glomerular filtration rate" /> <statusCode code="completed" / > <effectiveTime value="443541197257" /> <value unit="" xsi: type="PQ" value=">" /> <referenceRange> <observationRange > <text>NRG</text> </observationRange> </ referenceRange> </observation> </component> <component> <observation moodCode="EVN" classCode="OBS"> <templateId root= "2.16.840.1.921841.10..22.4.2" /> <id nullFlavor="NA" /> < code codeSystem="local" code="2345-7" displayName="Serum or plasma glucose measurement (mass/volume)" /> <statusCode code="completed" /> <effectiveTime value="019331049377" /> <value unit="mg/dL" xsi:type="PQ " value="108" /> <interpretationCode codeSystem="local" code="" /> <referenceRange> <observationRange> <text>70-105 </text> </observationRange> </referenceRange> </ observation> </component> <component> <observation moodCode= "EVN" classCode="OBS"> <templateId root="2.16.840.1.034129.10.20.22.4.2 " /> <id nullFlavor="NA" /> <code codeSystem="local" code= "42565-0" displayName="Serum or plasma calcium measurement (mass/volume)" /> <statusCode code="completed" /> <effectiveTime value= "111324014790" /> <value unit="mg/dL" xsi:type="PQ" value="7.8" /> <interpretationCode codeSystem="local" code="" /> < referenceRange> <observationRange> <text>8.5-10.1</text > </observationRange> </referenceRange> </observation > </component> <component> <observation moodCode="EVN" classCode="OBS"> <templateId root="2.16.840.1.773845.10..22.4.2" /> <id nullFlavor="NA" /> <code codeSystem="local" code="1974-06" displayName="Serum or plasma total bilirubin measurement (mass/volume)" /> <statusCode code="completed" /> <effectiveTime value="169012837615 " /> <value unit="mg/dL" xsi:type="PQ" value="0.5" /> < referenceRange> <observationRange> <text>0.1-1.0</text> </observationRange> </referenceRange> </observation > </component> <component> <observation moodCode="EVN" classCode="OBS"> <templateId root="2.16.840.1.493990.10..22.4.2" /> <id nullFlavor="NA" /> <code codeSystem="local" code="6768-6" displayName="Serum or plasma alkaline phosphatase measurement (enzymatic activity/volume)" /> <statusCode code="completed" /> < effectiveTime value="695931767692" /> <value unit="U/L" xsi:type="PQ" value="62" /> <referenceRange> <observationRange> <text>40-136</text> </observationRange> </referenceRange > </observation> </component> <component> <observation moodCode="EVN" classCode="OBS"> <templateId root= "2.16.840.1.400560.10.20.22.4.2" /> <id nullFlavor="NA" /> < code codeSystem="local" code="192" displayName="Serum or plasma aspartate aminotransferase measurement (enzymatic activity/volume)" /> < statusCode code="completed" /> <effectiveTime value="471084193908" /> <value unit="U/L" xsi:type="PQ" value="15" /> <referenceRange > <observationRange> <text>5-34</text> </ observationRange> </referenceRange> </observation> </ component> <component> <observation moodCode="EVN" classCode="OBS"> <templateId root="06.27.840.1.573809.10..22.4.2" /> <id nullFlavor="NA" /> <code codeSystem="local" code="1742-6" displayName= "Serum or plasma alanine aminotransferase measurement (enzymatic activity/volume )" /> <statusCode code="completed" /> <effectiveTime value= "136585118076" /> <value unit="U/L" xsi:type="PQ" value="12" /> <referenceRange> <observationRange> <text>0-55</text > </observationRange> </referenceRange> </observation > </component> <component> <observation moodCode="EVN" classCode="OBS"> <templateId root="216.840.1.313344.10.20.22.4.2" /> <id nullFlavor="NA" /> <code codeSystem="local" code="2885-2" displayName="Serum or plasma protein measurement (mass/volume)" /> < statusCode code="completed" /> <effectiveTime value="159309245419" /> <value unit="g/dL" xsi:type="PQ" value="4.7" /> < interpretationCode codeSystem="local" code="" /> <referenceRange> <observationRange> <text>6.4-8.2</text> </ observationRange> </referenceRange> </observation> </ component> <component> <observation moodCode="EVN" classCode="OBS"> <templateId root="2.16.840.1.363626.10..22.4.2" /> <id nullFlavor="NA" /> <code codeSystem="local" code="1751" displayName= "Serum or plasma albumin measurement (mass/volume)" /> <statusCode code ="completed" /> <effectiveTime value="377137114609" /> <value unit="g/dL" xsi:type="PQ" value="2.8" /> <interpretationCode codeSystem ="local" code="" /> <referenceRange> <observationRange> <text>3.2-4.5</text> </observationRange> </ referenceRange> </observation> </component> <component> <observation moodCode="EVN" classCode="OBS"> <templateId root= "16.840.1.422304.10..22.4.2" /> <id nullFlavor="NA" /> < code codeSystem="local" code="CALCIUMCORR" displayName="CALCIUM CORRECTED" /> <statusCode code="completed" /> <effectiveTime value= "319718313257" /> <value unit="mg/dL" xsi:type="PQ" value="8.8" /> <referenceRange> <observationRange> <text>8.5-10.1 </text> </observationRange> </referenceRange> </ observation> </component> </organizer> </entry> <entry> <organizer moodCode="EVN" classCode="BATTERY"> <templateId root= "06.27.840.1.869201.10.22.4.1" /> <id nullFlavor="NA" /> <code codeSystem="local" code="" displayName="Magnesium" /> <statusCode code="completed" /> <component> <observation moodCode="EVN" classCode="OBS"> <templateId root="840.1.023412.02.28.22.4.2" /> <id nullFlavor="NA" /> <code codeSystem="local" code="88880-6 " displayName="Magnesium" /> <statusCode code="completed" /> < effectiveTime value="427935562624" /> <value unit="mg/dL" xsi:type="PQ " value="1.5" /> <interpretationCode codeSystem="local" code="" /> <referenceRange> <observationRange> <text>1.8- 2.4</text> </observationRange> </referenceRange> </ observation> </component> </organizer> </entry> <entry> <organizer moodCode="EVN" classCode="BATTERY"> <templateId root= "840.1.704213.02.28.22.4.1" /> <id nullFlavor="NA" /> <code codeSystem="local" code="12794-0" displayName="Complete urinalysis with reflex to culture" /> <statusCode code="completed" /> <component> < observation moodCode="EVN" classCode="OBS"> <templateId root= "06.27.840.1.304670.02.28.22.4.2" /> <id nullFlavor="NA" /> < code codeSystem="local" code="5778-6" displayName="Urine color determination" / > <statusCode code="completed" /> <effectiveTime value= "175481317541" /> <value unit="" xsi:type="PQ" value="YELLOW" /> <referenceRange> <observationRange> <text>NRG</text > </observationRange> </referenceRange> </observation > </component> <component> <observation moodCode="EVN" classCode="OBS"> <templateId root="216.840.1.557010.10.20.22.4.2" /> <id nullFlavor="NA" /> <code codeSystem="local" code="98035-5 " displayName="Urine clarity determination" /> <statusCode code= "completed" /> <effectiveTime value="" /> <value unit="" xsi:type="PQ" value="SLIGHTLY CLOUDY" /> <referenceRange> <observationRange> <text>NRG</text> </ observationRange> </referenceRange> </observation> </ component> <component> <observation moodCode="EVN" classCode="OBS"> <templateId root="16.840.1.306285.10.20.22.4.2" /> <id nullFlavor="NA" /> <code codeSystem="local" code="5803-2" displayName= "Urine pH measurement by test strip" /> <statusCode code="completed" / > <effectiveTime value="192971448625" /> <value unit="" xsi: type="PQ" value="6" /> <referenceRange> <observationRange> <text>5-9</text> </observationRange> </ referenceRange> </observation> </component> <component> <observation moodCode="EVN" classCode="OBS"> <templateId root= "840.1.147824.10..22.4.2" /> <id nullFlavor="NA" /> < code codeSystem="local" code="5811-5" displayName="Specific gravity of urine by test strip" /> <statusCode code="completed" /> <effectiveTime value="268989775588" /> <value unit="" xsi:type="PQ" value="1.010" /> <interpretationCode codeSystem="local" code="" /> < referenceRange> <observationRange> <text>1.016-1.022</ text> </observationRange> </referenceRange> </ observation> </component> <component> <observation moodCode= "EVN" classCode="OBS"> <templateId root="06.27.840.1.871550.10.22.4.2 " /> <id nullFlavor="NA" /> <code codeSystem="local" code= "10990-9" displayName="Urine protein assay by test strip, semi-quantitative" /> <statusCode code="completed" /> <effectiveTime value= "461436197103" /> <value unit="" xsi:type="PQ" value="3+" /> < interpretationCode codeSystem="local" code="*" /> <referenceRange> <observationRange> <text>NEGATIVE</text> </ observationRange> </referenceRange> </observation> </ component> <component> <observation moodCode="EVN" classCode="OBS"> <templateId root="16.840.1.371169.10.20.22.4.2" /> <id nullFlavor="NA" /> <code codeSystem="local" code="16323-2" displayName= "Urine glucose detection by automated test strip" /> <statusCode code= "completed" /> <effectiveTime value="182958584600" /> <value unit="" xsi:type="PQ" value="NEGATIVE" /> <referenceRange> < observationRange> <text>NEGATIVE</text> </ observationRange> </referenceRange> </observation> </ component> <component> <observation moodCode="EVN" classCode="OBS"> <templateId root="840.1.747994.10.20.22.4.2" /> <id nullFlavor="NA" /> <code codeSystem="local" code="51966-3" displayName= "Erythrocytes detection in urine sediment by light microscopy" /> < statusCode code="completed" /> <effectiveTime value="009240889016" /> <value unit="" xsi:type="PQ" value="5+" /> < interpretationCode codeSystem="local" code="*" /> <referenceRange> <observationRange> <text>NEGATIVE</text> </ observationRange> </referenceRange> </observation> </ component> <component> <observation moodCode="EVN" classCode="OBS"> <templateId root="840.1.871417.1022.4.2" /> <id nullFlavor="NA" /> <code codeSystem="local" code="88977-9" displayName= "Urine ketones detection by automated test strip" /> <statusCode code= "completed" /> <effectiveTime value="229947957279" /> <value unit="" xsi:type="PQ" value="NEGATIVE" /> <referenceRange> < observationRange> <text>NEGATIVE</text> </ observationRange> </referenceRange> </observation> </ component> <component> <observation moodCode="EVN" classCode="OBS"> <templateId root="06.27.840.1.404247.10.2022.4.2" /> <id nullFlavor="NA" /> <code codeSystem="local" code="5802-4" displayName= "Urine nitrite detection by test strip" /> <statusCode code="completed " /> <effectiveTime value="314442604323" /> <value unit="" xsi :type="PQ" value="NEGATIVE" /> <referenceRange> < observationRange> <text>NEGATIVE</text> </ observationRange> </referenceRange> </observation> </ component> <component> <observation moodCode="EVN" classCode="OBS"> <templateId root="216.840.1.428191.10..22.4.2" /> <id nullFlavor="NA" /> <code codeSystem="local" code="5770-3" displayName= "Urine total bilirubin detection by test strip" /> <statusCode code= "completed" /> <effectiveTime value="335972950760" /> <value unit="" xsi:type="PQ" value="NEGATIVE" /> <referenceRange> < observationRange> <text>NEGATIVE</text> </ observationRange> </referenceRange> </observation> </ component> <component> <observation moodCode="EVN" classCode="OBS"> <templateId root="216.840.1.142809.10..22.4.2" /> <id nullFlavor="NA" /> <code codeSystem="local" code="35484-6" displayName= "Urine urobilinogen measurement by automated test strip (mass/volume)" /> <statusCode code="completed" /> <effectiveTime value="989861856012 " /> <value unit="" xsi:type="PQ" value="NORMAL" /> < referenceRange> <observationRange> <text>NORMAL</text> </observationRange> </referenceRange> </observation> </component> <component> <observation moodCode="EVN" classCode ="OBS"> <templateId root="216.840.1.807225.10.4.2" /> < id nullFlavor="NA" /> <code codeSystem="local" code="5799-2" displayName="Urine leukocyte esterase detection by dipstick" /> < statusCode code="completed" /> <effectiveTime value="063764954995" /> <value unit="" xsi:type="PQ" value="3+" /> < interpretationCode codeSystem="local" code="*" /> <referenceRange> <observationRange> <text>NEGATIVE</text> </ observationRange> </referenceRange> </observation> </ component> <component> <observation moodCode="EVN" classCode="OBS"> <templateId root="06.27.840.1.027685.22.4.2" /> <id nullFlavor="NA" /> <code codeSystem="local" code="52282-3" displayName= "Automated urine sediment erythrocyte count by microscopy (number/high power field)" /> <statusCode code="completed" /> <effectiveTime value="755479157548" /> <value unit="[HPF]" xsi:type="PQ" value="" /> <interpretationCode codeSystem="local" code="*" /> < referenceRange> <observationRange> <text>NRG</text> </observationRange> </referenceRange> </observation> </component> <component> <observation moodCode="EVN" classCode= "OBS"> <templateId root="06.27.840.1.606053.10.2022.4.2" /> < id nullFlavor="NA" /> <code codeSystem="local" code="5821-4" displayName="Automated urine sediment leukocyte count by microscopy (number/ high power field)" /> <statusCode code="completed" /> < effectiveTime value="790946840280" /> <value unit="[HPF]" xsi:type="PQ " value="" /> <interpretationCode codeSystem="local" code="*" /> <referenceRange> <observationRange> <text>NRG</text > </observationRange> </referenceRange> </observation > </component> <component> <observation moodCode="EVN" classCode="OBS"> <templateId root="16.840.1.621831.10.20.22.4.2" /> <id nullFlavor="NA" /> <code codeSystem="local" code="41965-4 " displayName="Bacteria detection in urine sediment by light microscopy" /> <statusCode code="completed" /> <effectiveTime value= "231282343499" /> <value unit="" xsi:type="PQ" value="NEGATIVE" /> <referenceRange> <observationRange> <text>NRG</ text> </observationRange> </referenceRange> </ observation> </component> <component> <observation moodCode= "EVN" classCode="OBS"> <templateId root="840.1.400913.10.22.4.2 " /> <id nullFlavor="NA" /> <code codeSystem="local" code= "84265-4" displayName="Squamous epithelial cells detection in urine sediment by light microscopy" /> <statusCode code="completed" /> < effectiveTime value="173736417018" /> <value unit="" xsi:type="PQ" value="5-10" /> <referenceRange> <observationRange> <text>NRG</text> </observationRange> </referenceRange > </observation> </component> <component> <observation moodCode="EVN" classCode="OBS"> <templateId root= "06.27.840.1.943453.10.20.22.4.2" /> <id nullFlavor="NA" /> < code codeSystem="local" code="75197-5" displayName="Crystals detection in urine sediment by light microscopy" /> <statusCode code="completed" /> <effectiveTime value="" /> <value unit="" xsi:type="PQ " value="NONE" /> <referenceRange> <observationRange> <text>NRG</text> </observationRange> </ referenceRange> </observation> </component> <component> <observation moodCode="EVN" classCode="OBS"> <templateId root= "16.840.1.385256.10.20.22.4.2" /> <id nullFlavor="NA" /> < code codeSystem="local" code="65967-1" displayName="Casts detection in urine sediment by light microscopy" /> <statusCode code="completed" /> <effectiveTime value="" /> <value unit="" xsi:type="PQ " value="NONE" /> <referenceRange> <observationRange> <text>NRG</text> </observationRange> </ referenceRange> </observation> </component> <component> <observation moodCode="EVN" classCode="OBS"> <templateId root= "16.840.1.915735.10.20.22.4.2" /> <id nullFlavor="NA" /> < code codeSystem="local" code="8247-9" displayName="Mucus detection in urine sediment by light microscopy" /> <statusCode code="completed" /> <effectiveTime value="411690640334" /> <value unit="" xsi:type="PQ " value="NEGATIVE" /> <referenceRange> <observationRange> <text>NRG</text> </observationRange> </ referenceRange> </observation> </component> <component> <observation moodCode="EVN" classCode="OBS"> <templateId root= "06.27.840.1.370391.10..22.4.2" /> <id nullFlavor="NA" /> < code codeSystem="local" code="13720-1" displayName="Complete urinalysis with reflex to culture" /> <statusCode code="completed" /> < effectiveTime value="735354144901" /> <value unit="" xsi:type="PQ" value="YES" /> <referenceRange> <observationRange> <text>NRG</text> </observationRange> </referenceRange> </observation> </component> </organizer> </entry> <entry> < organizer moodCode="EVN" classCode="BATTERY"> <templateId root= "16.840.1.015424.10.22.4.1" /> <id nullFlavor="NA" /> <code codeSystem="local" code="630-4" displayName="Bacterial urine culture" /> < statusCode code="completed" /> <component> <observation moodCode= "EVN" classCode="OBS"> <templateId root="216.840.1.212625.10..22.4.2 " /> <id nullFlavor="NA" /> <code codeSystem="local" code="630 -4" displayName="Bacterial urine culture" /> <statusCode code= "completed" /> <effectiveTime value="402326912270" /> <value unit="" xsi:type="PQ" value="808957876" /> <referenceRange> <observationRange> <text>NRG</text> </observationRange> </referenceRange> </observation> </component> < component> <observation moodCode="EVN" classCode="OBS"> < templateId root="16.840.1.280515.10..22.4.2" /> <id nullFlavor="NA " /> <code codeSystem="local" code="CC" displayName="COLONY COUNT" /> <statusCode code="completed" /> <effectiveTime value= "623792797976" /> <value unit="" xsi:type="PQ" value=">100,000/ML" / > <referenceRange> <observationRange> <text>NRG </text> </observationRange> </referenceRange> </ observation> </component> <component> <observation moodCode= "EVN" classCode="OBS"> <templateId root="2.16.840.1.748325.10..22.4.2 " /> <id nullFlavor="NA" /> <code codeSystem="local" code= "FTX2" displayName="FREE TEXT ENTRY 2" /> <statusCode code="completed" /> <effectiveTime value="631014347286" /> <value unit="" xsi: type="PQ" value="RML SENT SENSITIVITY 05/26 08:05" /> <referenceRange> <observationRange> <text>NRG</text> </ observationRange> </referenceRange> </observation> </ component> <component> <observation moodCode="EVN" classCode="OBS"> <templateId root="2.16.840.1.112115.10..22.4.2" /> <id nullFlavor="NA" /> <code codeSystem="local" code="FTX3" displayName= "FREE TEXT ENTRY 3" /> <statusCode code="completed" /> < effectiveTime value="187920005127" /> <value unit="" xsi:type="PQ" value="RML SENT ID REPORT 05/25 16:05" /> <referenceRange> < observationRange> <text>NRG</text> </observationRange> </referenceRange> </observation> </component> </ organizer> </entry> <entry> <organizer moodCode="EVN" classCode="BATTERY"> <templateId root="216.840.1.092399.10..22.4.1" /> <id nullFlavor= "NA" /> <code codeSystem="local" code="RML-SENS" displayName="RML Sensitivity Panel" /> <statusCode code="completed" /> <component> <observation moodCode="EVN" classCode="OBS"> <templateId root= "16.840.1.529057.10..22.4.2" /> <id nullFlavor="NA" /> < code codeSystem="local" code="267-5" displayName="Gentamicin susceptibility test by minimum inhibitory concentration" /> <statusCode code= "completed" /> <effectiveTime value="883119176788" /> <value unit="" xsi:type="PQ" value="<" /> <interpretationCode codeSystem= "local" code="*" /> <referenceRange> <observationRange> <text>NRG</text> </observationRange> </ referenceRange> </observation> </component> <component> <observation moodCode="EVN" classCode="OBS"> <templateId root= "16.840.1.725032.10..22.4.2" /> <id nullFlavor="NA" /> < code codeSystem="local" code="516-5" displayName="Trimethoprim/sulfamethoxazole susceptibility test by minimum inhibitoryconcentration" /> <statusCode code="completed" /> <effectiveTime value="031269051654" /> < value unit="" xsi:type="PQ" value=">" /> <interpretationCode codeSystem="local" code="*" /> <referenceRange> < observationRange> <text>NRG</text> </observationRange> </referenceRange> </observation> </component> < component> <observation moodCode="EVN" classCode="OBS"> < templateId root="216.840.1.329092.10..22.4.2" /> <id nullFlavor="NA " /> <code codeSystem="local" code="46986-7" displayName="Levofloxacin susceptibility test by minimum inhibitory concentration" /> < statusCode code="completed" /> <effectiveTime value="402191161795" /> <value unit="" xsi:type="PQ" value="<=" /> < interpretationCode codeSystem="local" code="*" /> <referenceRange> <observationRange> <text>NRG</text> </ observationRange> </referenceRange> </observation> </ component> <component> <observation moodCode="EVN" classCode="OBS"> <templateId root="216.840.1.726893.10...4.2" /> <id nullFlavor="NA" /> <code codeSystem="local" code="28-1" displayName= "Ampicillin susceptibility test by minimum inhibitory concentration" /> <statusCode code="completed" /> <effectiveTime value="253293610318" / > <value unit="" xsi:type="PQ" value=">" /> < interpretationCode codeSystem="local" code="*" /> <referenceRange> <observationRange> <text>NRG</text> </ observationRange> </referenceRange> </observation> </ component> <component> <observation moodCode="EVN" classCode="OBS"> <templateId root="216.840.1.652663.10..22.4.2" /> <id nullFlavor="NA" /> <code codeSystem="local" code="76-0" displayName= "Cefazolin susceptibility test by minimum inhibitory concentration" /> <statusCode code="completed" /> <effectiveTime value="212137774337" /> <value unit="" xsi:type="PQ" value="2" /> < interpretationCode codeSystem="local" code="*" /> <referenceRange> <observationRange> <text>NRG</text> </ observationRange> </referenceRange> </observation> </ component> <component> <observation moodCode="EVN" classCode="OBS"> <templateId root="06.27.840.1.990793.10.20.22.4.2" /> <id nullFlavor="NA" /> <code codeSystem="local" code="141-2" displayName= "Ceftriaxone susceptibility test by minimum inhibitory concentration" /> <statusCode code="completed" /> <effectiveTime value="883209348994" /> <value unit="" xsi:type="PQ" value="<=" /> < interpretationCode codeSystem="local" code="*" /> <referenceRange> <observationRange> <text>NRG</text> </ observationRange> </referenceRange> </observation> </ component> <component> <observation moodCode="EVN" classCode="OBS"> <templateId root="06.27.840.1.201841.10..22.4.2" /> <id nullFlavor="NA" /> <code codeSystem="local" code="185-9" displayName= "Ciprofloxacin susceptibility test by minimum inhibitory concentration" /> <statusCode code="completed" /> <effectiveTime value="443480910727 " /> <value unit="" xsi:type="PQ" value="<=" /> < interpretationCode codeSystem="local" code="*" /> <referenceRange> <observationRange> <text>NRG</text> </ observationRange> </referenceRange> </observation> </ component> <component> <observation moodCode="EVN" classCode="OBS"> <templateId root="06.27.830.1.898223.10.20.22.4.2" /> <id nullFlavor="NA" /> <code codeSystem="local" code="6652-2" displayName= "Meropenem susceptibility test by minimum inhibitory concentration" /> <statusCode code="completed" /> <effectiveTime value="234577928914" /> <value unit="" xsi:type="PQ" value="<=" /> < interpretationCode codeSystem="local" code="*" /> <referenceRange> <observationRange> <text>NRG</text> </ observationRange> </referenceRange> </observation> </ component> <component> <observation moodCode="EVN" classCode="OBS"> <templateId root="16.840.1.396315.10..22.4.2" /> <id nullFlavor="NA" /> <code codeSystem="local" code="363-2" displayName= "Nitrofurantoin susceptibility test by minimum inhibitory concentration" /> <statusCode code="completed" /> <effectiveTime value= "910362179515" /> <value unit="" xsi:type="PQ" value="<=" /> <interpretationCode codeSystem="local" code="*" /> <referenceRange> <observationRange> <text>NRG</text> </ observationRange> </referenceRange> </observation> </ component> <component> <observation moodCode="EVN" classCode="OBS"> <templateId root="16.840.1.665499.10.20.22.4.2" /> <id nullFlavor="NA" /> <code codeSystem="local" code="20-8" displayName= "Amoxicillin and clavulanate potassium susc SHAYNA" /> <statusCode code= "completed" /> <effectiveTime value="826078125757" /> <value unit="" xsi:type="PQ" value="=" /> <interpretationCode codeSystem= "local" code="*" /> <referenceRange> <observationRange> <text>NRG</text> </observationRange> </ referenceRange> </observation> </component> </organizer> </entry > <entry> <organizer moodCode="EVN" classCode="BATTERY"> <templateId root="216.840.1.953376.10..22.4.1" /> <id nullFlavor="NA" /> <code codeSystem="local" code="28030-0" displayName="Complete blood count (CBC) with automated white blood cell (WBC) differential" /> <statusCode code= "completed" /> <component> <observation moodCode="EVN" classCode= "OBS"> <templateId root="216.840.1.447682.10..22.4.2" /> < id nullFlavor="NA" /> <code codeSystem="local" code="6690-2" displayName="Blood leukocytes automated count (number/volume)" /> < statusCode code="completed" /> <effectiveTime value="622473598559" /> <value unit="10*3/uL" xsi:type="PQ" value="15.1" /> < interpretationCode codeSystem="local" code="" /> <referenceRange> <observationRange> <text>4.3-11.0</text> </ observationRange> </referenceRange> </observation> </ component> <component> <observation moodCode="EVN" classCode="OBS"> <templateId root="216.840.1.855754.10..22.4.2" /> <id nullFlavor="NA" /> <code codeSystem="local" code="789-8" displayName= "Blood erythrocytes automated count (number/volume)" /> <statusCode code="completed" /> <effectiveTime value="157295256482" /> < value unit="10*6/uL" xsi:type="PQ" value="3.78" /> <interpretationCode codeSystem="local" code="" /> <referenceRange> < observationRange> <text>4.35-5.85</text> </ observationRange> </referenceRange> </observation> </ component> <component> <observation moodCode="EVN" classCode="OBS"> <templateId root="2.16.840.1.524931.10.20.22.4.2" /> <id nullFlavor="NA" /> <code codeSystem="local" code="00863-1" displayName= "Venous blood hemoglobin measurement (mass/volume)" /> <statusCode code ="completed" /> <effectiveTime value="933677428916" /> <value unit="g/dL" xsi:type="PQ" value="8.2" /> <interpretationCode codeSystem ="local" code="" /> <referenceRange> <observationRange> <text>11.5-16.0</text> </observationRange> </ referenceRange> </observation> </component> <component> <observation moodCode="EVN" classCode="OBS"> <templateId root= "2.16.840.1.264700.10.20.22.4.2" /> <id nullFlavor="NA" /> < code codeSystem="local" code="67197-3" displayName="Blood hematocrit (volume fraction)" /> <statusCode code="completed" /> <effectiveTime value="019607238285" /> <value unit="%" xsi:type="PQ" value="27" / > <interpretationCode codeSystem="local" code="" /> < referenceRange> <observationRange> <text>35-52</text> </observationRange> </referenceRange> </observation> </component> <component> <observation moodCode="EVN" classCode= "OBS"> <templateId root="16.840.1.788099.10.2022.4.2" /> < id nullFlavor="NA" /> <code codeSystem="local" code="787-2" displayName ="Automated erythrocyte mean corpuscular volume" /> <statusCode code= "completed" /> <effectiveTime value="317469935084" /> <value unit="[foz_us]" xsi:type="PQ" value="71" /> <interpretationCode codeSystem="local" code="" /> <referenceRange> < observationRange> <text>80-99</text> </observationRange > </referenceRange> </observation> </component> < component> <observation moodCode="EVN" classCode="OBS"> < templateId root="06.27.840.1.957766.10.2022.4.2" /> <id nullFlavor="NA " /> <code codeSystem="local" code="785-6" displayName="Automated erythrocyte mean corpuscular hemoglobin (mass per erythrocyte)" /> < statusCode code="completed" /> <effectiveTime value="687671874253" /> <value unit="pg" xsi:type="PQ" value="22" /> < interpretationCode codeSystem="local" code="" /> <referenceRange> <observationRange> <text>25-34</text> </ observationRange> </referenceRange> </observation> </ component> <component> <observation moodCode="EVN" classCode="OBS"> <templateId root="06.27.840.1.237530.10.20.22.4.2" /> <id nullFlavor="NA" /> <code codeSystem="local" code="786-4" displayName= "Automated erythrocyte mean corpuscular hemoglobin concentration measurement ( mass/volume)" /> <statusCode code="completed" /> < effectiveTime value="158401625973" /> <value unit="g/dL" xsi:type="PQ" value="31" /> <interpretationCode codeSystem="local" code="" /> <referenceRange> <observationRange> <text>32-36</ text> </observationRange> </referenceRange> </ observation> </component> <component> <observation moodCode= "EVN" classCode="OBS"> <templateId root="2.16.840.1.156885.10.20.22.4.2 " /> <id nullFlavor="NA" /> <code codeSystem="local" code="788 -0" displayName="Automated erythrocyte distribution width ratio" /> < statusCode code="completed" /> <effectiveTime value="141856644498" /> <value unit="%" xsi:type="PQ" value="20.3" /> < interpretationCode codeSystem="local" code="" /> <referenceRange> <observationRange> <text>10.0-14.5</text> </ observationRange> </referenceRange> </observation> </ component> <component> <observation moodCode="EVN" classCode="OBS"> <templateId root="2.16.840.1.616393.10.20.22.4.2" /> <id nullFlavor="NA" /> <code codeSystem="local" code="777-3" displayName= "Automated blood platelet count (count/volume)" /> <statusCode code= "completed" /> <effectiveTime value="527872607430" /> <value unit="10*3/uL" xsi:type="PQ" value="219" /> <referenceRange> <observationRange> <text>130-400</text> </ observationRange> </referenceRange> </observation> </ component> <component> <observation moodCode="EVN" classCode="OBS"> <templateId root="06.27.840.1.744754.10.20.22.4.2" /> <id nullFlavor="NA" /> <code codeSystem="local" code="63974-2" displayName= "Automated blood platelet mean volume measurement" /> <statusCode code= "completed" /> <effectiveTime value="192875204859" /> <value unit="[foz_us]" xsi:type="PQ" value="10.6" /> <interpretationCode codeSystem="local" code="" /> <referenceRange> < observationRange> <text>7.4-10.4</text> </ observationRange> </referenceRange> </observation> </ component> <component> <observation moodCode="EVN" classCode="OBS"> <templateId root="06.27.840.1.072533.10.2022.4.2" /> <id nullFlavor="NA" /> <code codeSystem="local" code="770-8" displayName= "Automated blood neutrophils/100 leukocytes" /> <statusCode code= "completed" /> <effectiveTime value="059037335443" /> <value unit="%" xsi:type="PQ" value="80" /> <interpretationCode codeSystem ="local" code="" /> <referenceRange> <observationRange> <text>42-75</text> </observationRange> </ referenceRange> </observation> </component> <component> <observation moodCode="EVN" classCode="OBS"> <templateId root= "06.27.840.1.993768.10.20.22.4.2" /> <id nullFlavor="NA" /> < code codeSystem="local" code="736-9" displayName="Automated blood lymphocytes/ 100 leukocytes" /> <statusCode code="completed" /> < effectiveTime value="880690668994" /> <value unit="%" xsi:type="PQ " value="8" /> <interpretationCode codeSystem="local" code="" /> <referenceRange> <observationRange> <text>12-44</ text> </observationRange> </referenceRange> </ observation> </component> <component> <observation moodCode= "EVN" classCode="OBS"> <templateId root="2.16.840.1.291342.10..22.4.2 " /> <id nullFlavor="NA" /> <code codeSystem="local" code= "69734-0" displayName="Blood monocytes/100 leukocytes" /> <statusCode code="completed" /> <effectiveTime value="325746386159" /> < value unit="%" xsi:type="PQ" value="12" /> <referenceRange> <observationRange> <text>0-12</text> </ observationRange> </referenceRange> </observation> </ component> <component> <observation moodCode="EVN" classCode="OBS"> <templateId root="2.16.840.1.904299.10..22.4.2" /> <id nullFlavor="NA" /> <code codeSystem="local" code="713-8" displayName= "Automated blood eosinophils/100 leukocytes" /> <statusCode code= "completed" /> <effectiveTime value="340693408341" /> <value unit="%" xsi:type="PQ" value="0" /> <referenceRange> < observationRange> <text>0-10</text> </observationRange> </referenceRange> </observation> </component> < component> <observation moodCode="EVN" classCode="OBS"> < templateId root="216.840.1.377777.10.20.22.4.2" /> <id nullFlavor="NA " /> <code codeSystem="local" code="706-2" displayName="Automated blood basophils/100 leukocytes" /> <statusCode code="completed" /> <effectiveTime value="" /> <value unit="%" xsi: type="PQ" value="0" /> <referenceRange> <observationRange> <text>0-10</text> </observationRange> </ referenceRange> </observation> </component> <component> <observation moodCode="EVN" classCode="OBS"> <templateId root= "16.840.1.524119.10.22.4.2" /> <id nullFlavor="NA" /> < code codeSystem="local" code="751-8" displayName="Blood neutrophils automated count (number/volume)" /> <statusCode code="completed" /> < effectiveTime value="" /> <value unit="10*3" xsi:type="PQ" value="12.2" /> <interpretationCode codeSystem="local" code="" /> <referenceRange> <observationRange> <text>1.8-7.8 </text> </observationRange> </referenceRange> </ observation> </component> <component> <observation moodCode= "EVN" classCode="OBS"> <templateId root="216.840.1.005003.10.20.22.4.2 " /> <id nullFlavor="NA" /> <code codeSystem="local" code="731 -0" displayName="Blood lymphocytes automated count (number/volume)" /> <statusCode code="completed" /> <effectiveTime value="702352321536" /> <value unit="10*3" xsi:type="PQ" value="1.2" /> < referenceRange> <observationRange> <text>1.0-4.0</text> </observationRange> </referenceRange> </observation > </component> <component> <observation moodCode="EVN" classCode="OBS"> <templateId root="06.27.840.1.227975.102022.4.2" /> <id nullFlavor="NA" /> <code codeSystem="local" code="742-7" displayName="Blood monocytes automated count (number/volume)" /> < statusCode code="completed" /> <effectiveTime value="292562544438" /> <value unit="10*3" xsi:type="PQ" value="1.7" /> < interpretationCode codeSystem="local" code="" /> <referenceRange> <observationRange> <text>0.0-1.0</text> </ observationRange> </referenceRange> </observation> </ component> <component> <observation moodCode="EVN" classCode="OBS"> <templateId root="16.840.1.773162.102022.4.2" /> <id nullFlavor="NA" /> <code codeSystem="local" code="711-2" displayName= "Automated eosinophil count" /> <statusCode code="completed" /> <effectiveTime value="146810880462" /> <value unit="10*3/uL" xsi: type="PQ" value="0.0" /> <referenceRange> <observationRange > <text>0.0-0.3</text> </observationRange> </ referenceRange> </observation> </component> <component> <observation moodCode="EVN" classCode="OBS"> <templateId root= "06.27.840.1.298466.10..22.4.2" /> <id nullFlavor="NA" /> < code codeSystem="local" code="704-7" displayName="Automated blood basophil count (count/volume)" /> <statusCode code="completed" /> < effectiveTime value="189639548976" /> <value unit="10*3/uL" xsi:type= "PQ" value="0.0" /> <referenceRange> <observationRange> <text>0.0-0.1</text> </observationRange> </ referenceRange> </observation> </component> </organizer> </entry > <entry> <organizer moodCode="EVN" classCode="BATTERY"> <templateId root="216.840.1.457177.10..22.4.1" /> <id nullFlavor="NA" /> <code codeSystem="local" code="19443-6" displayName="Comprehensive metabolic panel" / > <statusCode code="completed" /> <component> <observation moodCode="EVN" classCode="OBS"> <templateId root= "2.16.840.1.289261.10..22.4.2" /> <id nullFlavor="NA" /> < code codeSystem="local" code="2951-2" displayName="Serum or plasma sodium measurement (moles/volume)" /> <statusCode code="completed" /> <effectiveTime value="804423136323" /> <value unit="mmol/L" xsi:type= "PQ" value="136" /> <referenceRange> <observationRange> <text>135-145</text> </observationRange> </ referenceRange> </observation> </component> <component> <observation moodCode="EVN" classCode="OBS"> <templateId root= "216.840.1.417673.10..4.2" /> <id nullFlavor="NA" /> < code codeSystem="local" code="2823-3" displayName="Serum or plasma potassium measurement (moles/volume)" /> <statusCode code="completed" /> <effectiveTime value="063833938128" /> <value unit="mmol/L" xsi:type= "PQ" value="3.5" /> <interpretationCode codeSystem="local" code="" / > <referenceRange> <observationRange> <text>3.6 -5.0</text> </observationRange> </referenceRange> </ observation> </component> <component> <observation moodCode= "EVN" classCode="OBS"> <templateId root="2.16.840.1.862779.10..22.4.2 " /> <id nullFlavor="NA" /> <code codeSystem="local" code= "" displayName="Serum or plasma chloride measurement (moles/volume)" /> <statusCode code="completed" /> <effectiveTime value= "947681748933" /> <value unit="mmol/L" xsi:type="PQ" value="104" /> <referenceRange> <observationRange> <text>98-107< /text> </observationRange> </referenceRange> </ observation> </component> <component> <observation moodCode= "EVN" classCode="OBS"> <templateId root="16.840.1.486366.10.20.22.4.2 " /> <id nullFlavor="NA" /> <code codeSystem="local" code= "2028-01" displayName="Carbon dioxide" /> <statusCode code="completed" / > <effectiveTime value="189254492624" /> <value unit="mmol/L" xsi:type="PQ" value="18" /> <interpretationCode codeSystem="local" code ="" /> <referenceRange> <observationRange> < text>21-32</text> </observationRange> </referenceRange> </observation> </component> <component> <observation moodCode="EVN" classCode="OBS"> <templateId root= "216.840.1.348485.10.20.22.4.2" /> <id nullFlavor="NA" /> < code codeSystem="local" code="31609-1" displayName="Serum or plasma anion gap determination (moles/volume)" /> <statusCode code="completed" /> <effectiveTime value="293005139120" /> <value unit="mmol/L" xsi: type="PQ" value="14" /> <referenceRange> <observationRange> <text>5-14</text> </observationRange> </ referenceRange> </observation> </component> <component> <observation moodCode="EVN" classCode="OBS"> <templateId root= "16.840.1.185637.10..22.4.2" /> <id nullFlavor="NA" /> < code codeSystem="local" code="3094-0" displayName="Serum or plasma urea nitrogen measurement (mass/volume)" /> <statusCode code="completed" /> <effectiveTime value="694179756986" /> <value unit="mg/dL" xsi:type="PQ" value="20" /> <interpretationCode codeSystem="local" code ="" /> <referenceRange> <observationRange> < text>7-18</text> </observationRange> </referenceRange> </observation> </component> <component> <observation moodCode="EVN" classCode="OBS"> <templateId root= "216.840.1.657919.10.20.22.4.2" /> <id nullFlavor="NA" /> < code codeSystem="local" code="2160-0" displayName="Serum or plasma creatinine measurement (mass/volume)" /> <statusCode code="completed" /> <effectiveTime value="047441204363" /> <value unit="mg/dL" xsi:type="PQ " value="0.85" /> <referenceRange> <observationRange> <text>0.60-1.30</text> </observationRange> </ referenceRange> </observation> </component> <component> <observation moodCode="EVN" classCode="OBS"> <templateId root= "2.16.840.1.453245.10.20.22.4.2" /> <id nullFlavor="NA" /> < code codeSystem="local" code="3097-3" displayName="Serum or plasma urea nitrogen /creatinine mass ratio" /> <statusCode code="completed" /> < effectiveTime value="042891320775" /> <value unit="" xsi:type="PQ" value="24" /> <referenceRange> <observationRange> <text>NRG</text> </observationRange> </referenceRange> </observation> </component> <component> <observation moodCode="EVN" classCode="OBS"> <templateId root= "2.16.840.1.596133.10..22.4.2" /> <id nullFlavor="NA" /> < code codeSystem="local" code="14242-5" displayName="Serum or plasma creatinine measurement with calculation of estimated glomerular filtration rate" /> <statusCode code="completed" /> <effectiveTime value="287859146853" /> <value unit="" xsi:type="PQ" value=">" /> < referenceRange> <observationRange> <text>NRG</text> </observationRange> </referenceRange> </observation> </component> <component> <observation moodCode="EVN" classCode= "OBS"> <templateId root="2.16.840.1.451914.10.20.22.4.2" /> < id nullFlavor="NA" /> <code codeSystem="local" code="2345-7" displayName="Serum or plasma glucose measurement (mass/volume)" /> < statusCode code="completed" /> <effectiveTime value="997165686631" /> <value unit="mg/dL" xsi:type="PQ" value="93" /> < referenceRange> <observationRange> <text>70-105</text> </observationRange> </referenceRange> </observation> </component> <component> <observation moodCode="EVN" classCode ="OBS"> <templateId root="2.16.840.1.612463.10..22.4.2" /> < id nullFlavor="NA" /> <code codeSystem="local" code="92159-7" displayName="Serum or plasma calcium measurement (mass/volume)" /> < statusCode code="completed" /> <effectiveTime value="164954948589" /> <value unit="mg/dL" xsi:type="PQ" value="9.1" /> < referenceRange> <observationRange> <text>8.5-10.1</text > </observationRange> </referenceRange> </observation > </component> <component> <observation moodCode="EVN" classCode="OBS"> <templateId root="2.16.840.1.338383.10.20.22.4.2" /> <id nullFlavor="NA" /> <code codeSystem="local" code="1974-06" displayName="Serum or plasma total bilirubin measurement (mass/volume)" /> <statusCode code="completed" /> <effectiveTime value="670841534553 " /> <value unit="mg/dL" xsi:type="PQ" value="0.6" /> < referenceRange> <observationRange> <text>0.1-1.0</text> </observationRange> </referenceRange> </observation > </component> <component> <observation moodCode="EVN" classCode="OBS"> <templateId root="2.16.840.1.600228.10.20.22.4.2" /> <id nullFlavor="NA" /> <code codeSystem="local" code="6768-6" displayName="Serum or plasma alkaline phosphatase measurement (enzymatic activity/volume)" /> <statusCode code="completed" /> < effectiveTime value="643417146675" /> <value unit="U/L" xsi:type="PQ" value="69" /> <referenceRange> <observationRange> <text>40-136</text> </observationRange> </referenceRange > </observation> </component> <component> <observation moodCode="EVN" classCode="OBS"> <templateId root= "216.840.1.048265.10..22.4.2" /> <id nullFlavor="NA" /> < code codeSystem="local" code="19208" displayName="Serum or plasma aspartate aminotransferase measurement (enzymatic activity/volume)" /> < statusCode code="completed" /> <effectiveTime value="951910932813" /> <value unit="U/L" xsi:type="PQ" value="21" /> <referenceRange > <observationRange> <text>5-34</text> </ observationRange> </referenceRange> </observation> </ component> <component> <observation moodCode="EVN" classCode="OBS"> <templateId root="216.840.1.049025.10.20.22.4.2" /> <id nullFlavor="NA" /> <code codeSystem="local" code="1742-6" displayName= "Serum or plasma alanine aminotransferase measurement (enzymatic activity/volume )" /> <statusCode code="completed" /> <effectiveTime value= "331641043265" /> <value unit="U/L" xsi:type="PQ" value="24" /> <referenceRange> <observationRange> <text>0-55</text > </observationRange> </referenceRange> </observation > </component> <component> <observation moodCode="EVN" classCode="OBS"> <templateId root="2.16.840.1.307710.10.20.22.4.2" /> <id nullFlavor="NA" /> <code codeSystem="local" code="2885-2" displayName="Serum or plasma protein measurement (mass/volume)" /> < statusCode code="completed" /> <effectiveTime value="219468935063" /> <value unit="g/dL" xsi:type="PQ" value="7.2" /> < referenceRange> <observationRange> <text>6.4-8.2</text> </observationRange> </referenceRange> </observation > </component> <component> <observation moodCode="EVN" classCode="OBS"> <templateId root="2.16.840.1.969853.10.20.22.4.2" /> <id nullFlavor="NA" /> <code codeSystem="local" code="1751-7" displayName="Serum or plasma albumin measurement (mass/volume)" /> < statusCode code="completed" /> <effectiveTime value="895510127107" /> <value unit="g/dL" xsi:type="PQ" value="4.2" /> < referenceRange> <observationRange> <text>3.2-4.5</text> </observationRange> </referenceRange> </observation > </component> <component> <observation moodCode="EVN" classCode="OBS"> <templateId root="2.16.840.1.286610.10..22.4.2" /> <id nullFlavor="NA" /> <code codeSystem="local" code= "CALCIUMCORR" displayName="CALCIUM CORRECTED" /> <statusCode code= "completed" /> <effectiveTime value="560772042198" /> <value unit="mg/dL" xsi:type="PQ" value="8.9" /> <referenceRange> < observationRange> <text>8.5-10.1</text> </ observationRange> </referenceRange> </observation> </ component> </organizer> </entry> <entry> <organizer moodCode="EVN" classCode="BATTERY"> <templateId root="2.16.840.1.731558.10..22.4.1" /> <id nullFlavor="NA" /> <code codeSystem="local" code="80386-2" displayName="Blood manual differential performed detection" /> <statusCode code="completed" /> <component> <observation moodCode="EVN" classCode="OBS"> <templateId root="2.16.840.1.819680.10.20.22.4.2" /> <id nullFlavor="NA" /> <code codeSystem="local" code="97865-2 " displayName="Blood monocytes/100 leukocytes" /> <statusCode code= "completed" /> <effectiveTime value="543529271498" /> <value unit="%" xsi:type="PQ" value="6" /> <referenceRange> < observationRange> <text>NRG</text> </observationRange> </referenceRange> </observation> </component> < component> <observation moodCode="EVN" classCode="OBS"> < templateId root="216.840.1.696542.10.20.22.4.2" /> <id nullFlavor="NA " /> <code codeSystem="local" code="769-0" displayName="Manual blood segmented neutrophils/100 leukocytes" /> <statusCode code="completed" / > <effectiveTime value="211302366049" /> <value unit="%" xsi:type="PQ" value="85" /> <referenceRange> < observationRange> <text>NRG</text> </observationRange> </referenceRange> </observation> </component> < component> <observation moodCode="EVN" classCode="OBS"> < templateId root="16.840.1.556285.10.20.22.4.2" /> <id nullFlavor="NA " /> <code codeSystem="local" code="63081-6" displayName="Blood band neutrophils/100 leukocytes" /> <statusCode code="completed" /> <effectiveTime value="830358192814" /> <value unit="%" xsi:type= "PQ" value="0" /> <referenceRange> <observationRange> <text>NRG</text> </observationRange> </ referenceRange> </observation> </component> <component> <observation moodCode="EVN" classCode="OBS"> <templateId root= "16.840.1.735177.10.20.22.4.2" /> <id nullFlavor="NA" /> < code codeSystem="local" code="737-7" displayName="Manual blood lymphocytes/100 leukocytes" /> <statusCode code="completed" /> <effectiveTime value="222357996857" /> <value unit="%" xsi:type="PQ" value="9" /> <referenceRange> <observationRange> <text>NRG< /text> </observationRange> </referenceRange> </ observation> </component> <component> <observation moodCode= "EVN" classCode="OBS"> <templateId root="216.840.1.655825.10..4.2 " /> <id nullFlavor="NA" /> <code codeSystem="local" code= "9727-9" displayName="Manual eosinophils/100 leukocytes in nose" /> < statusCode code="completed" /> <effectiveTime value="372531169863" /> <value unit="%" xsi:type="PQ" value="0" /> <referenceRange > <observationRange> <text>NRG</text> </ observationRange> </referenceRange> </observation> </ component> <component> <observation moodCode="EVN" classCode="OBS"> <templateId root="216.840.1.581625.02.28.22.4.2" /> <id nullFlavor="NA" /> <code codeSystem="local" code="707-0" displayName= "Manual blood basophils/100 leukocytes" /> <statusCode code="completed " /> <effectiveTime value="484880666200" /> <value unit="% " xsi:type="PQ" value="0" /> <referenceRange> < observationRange> <text>NRG</text> </observationRange> </referenceRange> </observation> </component> < component> <observation moodCode="EVN" classCode="OBS"> < templateId root="216.840.1.117869.10..22.4.2" /> <id nullFlavor="NA " /> <code codeSystem="local" code="702-1" displayName="Blood anisocytosis detection by light microscopy" /> <statusCode code= "completed" /> <effectiveTime value="547041915749" /> <value unit="" xsi:type="PQ" value="MODERATE" /> <referenceRange> < observationRange> <text>NRG</text> </observationRange> </referenceRange> </observation> </component> < component> <observation moodCode="EVN" classCode="OBS"> < templateId root="216.840.1.544990.10..22.4.2" /> <id nullFlavor="NA " /> <code codeSystem="local" code="728-6" displayName="Blood hypochromia detection by light microscopy" /> <statusCode code= "completed" /> <effectiveTime value="077806965836" /> <value unit="" xsi:type="PQ" value="MARKED" /> <referenceRange> < observationRange> <text>NRG</text> </observationRange> </referenceRange> </observation> </component> < component> <observation moodCode="EVN" classCode="OBS"> < templateId root="16.840.1.019500.10...4.2" /> <id nullFlavor="NA " /> <code codeSystem="local" code="741-9" displayName="Blood microcytes detection by light microscopy" /> <statusCode code= "completed" /> <effectiveTime value="377165383484" /> <value unit="" xsi:type="PQ" value="MODERATE" /> <referenceRange> < observationRange> <text>NRG</text> </observationRange> </referenceRange> </observation> </component> </ organizer> </entry> <entry> <organizer moodCode="EVN" classCode="BATTERY"> <templateId root="16.840.1.811236.10..22.4.1" /> <id nullFlavor= "NA" /> <code codeSystem="local" code="2117-12" displayName="Serum or plasma choriogonadotropin ( test) detection" /> <statusCode code= "completed" /> <component> <observation moodCode="EVN" classCode= "OBS"> <templateId root="216.840.1.792556.10.20.22.4.2" /> < id nullFlavor="NA" /> <code codeSystem="local" code="2117-12" displayName="Serum or plasma choriogonadotropin ( test) detection" /> <statusCode code="completed" /> <effectiveTime value= "260350327195" /> <value unit="" xsi:type="PQ" value="NEGATIVE" /> <referenceRange> <observationRange> <text>NEGATIVE </text> </observationRange> </referenceRange> </ observation> </component> </organizer> </entry> <entry> <organizer moodCode="EVN" classCode="BATTERY"> <templateId root= "216.840.1.569009.10.20.22.4.1" /> <id nullFlavor="NA" /> <code codeSystem="local" code="47981-0" displayName="Blood lactic acid measurement ( moles/volume)" /> <statusCode code="completed" /> <component> < observation moodCode="EVN" classCode="OBS"> <templateId root= "216.840.1.282409.10.20.22.4.2" /> <id nullFlavor="NA" /> < code codeSystem="local" code="78066-1" displayName="Blood lactic acid measurement (moles/volume)" /> <statusCode code="completed" /> <effectiveTime value="902384880712" /> <value unit="mmol/L" xsi:type= "PQ" value="1.03" /> <referenceRange> <observationRange> <text>0.50-2.00</text> </observationRange> </ referenceRange> </observation> </component> </organizer> </entry > <entry> <organizer moodCode="EVN" classCode="BATTERY"> <templateId root="16.840.1.250977.10..22.4.1" /> <id nullFlavor="NA" /> <code codeSystem="local" code="600-7" displayName="Bacterial blood culture" /> < statusCode code="completed" /> <component> <observation moodCode= "EVN" classCode="OBS"> <templateId root="840.1.159569...4.2 " /> <id nullFlavor="NA" /> <code codeSystem="local" code="600 -7" displayName="Bacterial blood culture" /> <statusCode code= "completed" /> <effectiveTime value="183016897346" /> <value unit="" xsi:type="PQ" value="NG" /> <referenceRange> < observationRange> <text>NRG</text> </observationRange> </referenceRange> </observation> </component> </ organizer> </entry> <entry> <organizer moodCode="EVN" classCode="BATTERY"> <templateId root="06.27.840.1.872727...4.1" /> <id nullFlavor= "NA" /> <code codeSystem="local" code="600-7" displayName="Bacterial blood culture" /> <statusCode code="completed" /> <component> < observation moodCode="EVN" classCode="OBS"> <templateId root= "06.27.840.1.470629.10..22.4.2" /> <id nullFlavor="NA" /> < code codeSystem="local" code="600-7" displayName="Bacterial blood culture" /> <statusCode code="completed" /> <effectiveTime value= "910019159322" /> <value unit="" xsi:type="PQ" value="NG" /> < referenceRange> <observationRange> <text>NRG</text> </observationRange> </referenceRange> </observation> </component> </organizer> </entry> <entry> <organizer moodCode="EVN" classCode="BATTERY"> <templateId root="216.840.1.493812.10.20.22.4.1" /> <id nullFlavor="NA" /> <code codeSystem="local" code="680-9" displayName="Microscopic examination by wet preparation" /> <statusCode code="completed" /> <component> <observation moodCode="EVN" classCode="OBS"> <templateId root="216.840.1.036502.10.20.22.4.2" /> <id nullFlavor="NA" /> <code codeSystem="local" code= "WETRESULT" displayName="WET PREP RESULTS" /> <statusCode code= "completed" /> <effectiveTime value="844574530308" /> <value unit="" xsi:type="PQ" value="05/24 20:14 BY P ADAMA" /> <referenceRange > <observationRange> <text>NRG</text> </ observationRange> </referenceRange> </observation> </ component> </organizer> </entry> <entry> <organizer moodCode="EVN" classCode="BATTERY"> <templateId root="16.840.1.835759.10.20.22.4.1" /> <id nullFlavor="NA" /> <code codeSystem="local" code="57361-7" displayName="Neisseria gonorrhoeae DNA detection by probe and signal amplification method" /> <statusCode code="completed" /> <component> <observation moodCode="EVN" classCode="OBS"> <templateId root= "2.16.840.1.423187.10..22.4.2" /> <id nullFlavor="NA" /> < code codeSystem="local" code="86718-8" displayName="Gonorrhea amp DNA-urine" /> <statusCode code="completed" /> <effectiveTime value= "355270661243" /> <value unit="" xsi:type="PQ" value="Not Detected" /> <referenceRange> <observationRange> <text>Not Detected</text> </observationRange> </referenceRange> </observation> </component> </organizer> </entry> <entry> < organizer moodCode="EVN" classCode="BATTERY"> <templateId root= "2.16.840.1.770351.10..22.4.1" /> <id nullFlavor="NA" /> <code codeSystem="local" code="72872-6" displayName="Chlamydia trachomatis DNA detection by probe and signal amplification method" /> <statusCode code= "completed" /> <component> <observation moodCode="EVN" classCode= "OBS"> <templateId root="2.16.840.1.176404.10.20.22.4.2" /> < id nullFlavor="NA" /> <code codeSystem="local" code="80322-7" displayName="Chlamydia trachomatis DNA detection by probe and target amplification method" /> <statusCode code="completed" /> < effectiveTime value="828748432686" /> <value unit="" xsi:type="PQ" value="Not Detected" /> <referenceRange> <observationRange> <text>Not Detected</text> </observationRange> </referenceRange> </observation> </component> </organizer> </ entry> <entry> <organizer moodCode="EVN" classCode="BATTERY"> < templateId root="2.16.840.1.032679.10.20.22.4.1" /> <id nullFlavor="NA" /> <code codeSystem="local" code="72479-4" displayName="Complete blood count (CBC) with automated white blood cell (WBC) differential" /> <statusCode code="completed" /> <component> <observation moodCode="EVN" classCode="OBS"> <templateId root="2.16.840.1.012802.10.20.22.4.2" /> <id nullFlavor="NA" /> <code codeSystem="local" code="6690-2" displayName="Blood leukocytes automated count (number/volume)" /> < statusCode code="completed" /> <effectiveTime value="" /> <value unit="10*3/uL" xsi:type="PQ" value="9.0" /> < referenceRange> <observationRange> <text>4.3-11.0</text > </observationRange> </referenceRange> </observation > </component> <component> <observation moodCode="EVN" classCode="OBS"> <templateId root="2.16.840.1.128615.10..22.4.2" /> <id nullFlavor="NA" /> <code codeSystem="local" code="789-8" displayName="Blood erythrocytes automated count (number/volume)" /> < statusCode code="completed" /> <effectiveTime value="195469442505" /> <value unit="10*6/uL" xsi:type="PQ" value="3.20" /> < interpretationCode codeSystem="local" code="" /> <referenceRange> <observationRange> <text>4.35-5.85</text> </ observationRange> </referenceRange> </observation> </ component> <component> <observation moodCode="EVN" classCode="OBS"> <templateId root="16.840.1.650713.10.2022.4.2" /> <id nullFlavor="NA" /> <code codeSystem="local" code="89505-2" displayName= "Venous blood hemoglobin measurement (mass/volume)" /> <statusCode code ="completed" /> <effectiveTime value="156383386500" /> <value unit="g/dL" xsi:type="PQ" value="7.0" /> <interpretationCode codeSystem ="local" code="" /> <referenceRange> <observationRange> <text>11.5-16.0</text> </observationRange> </ referenceRange> </observation> </component> <component> <observation moodCode="EVN" classCode="OBS"> <templateId root= "06.27.840.1.359748.10.22.4.2" /> <id nullFlavor="NA" /> < code codeSystem="local" code="78158-1" displayName="Blood hematocrit (volume fraction)" /> <statusCode code="completed" /> <effectiveTime value="891917590432" /> <value unit="%" xsi:type="PQ" value="23" / > <interpretationCode codeSystem="local" code="" /> < referenceRange> <observationRange> <text>35-52</text> </observationRange> </referenceRange> </observation> </component> <component> <observation moodCode="EVN" classCode= "OBS"> <templateId root="16.840.1.019079.10.20.22.4.2" /> < id nullFlavor="NA" /> <code codeSystem="local" code="787-2" displayName ="Automated erythrocyte mean corpuscular volume" /> <statusCode code= "completed" /> <effectiveTime value="209578476454" /> <value unit="[foz_us]" xsi:type="PQ" value="73" /> <interpretationCode codeSystem="local" code="" /> <referenceRange> < observationRange> <text>80-99</text> </observationRange > </referenceRange> </observation> </component> < component> <observation moodCode="EVN" classCode="OBS"> < templateId root="2.16.840.1.275388.10..22.4.2" /> <id nullFlavor="NA " /> <code codeSystem="local" code="785-6" displayName="Automated erythrocyte mean corpuscular hemoglobin (mass per erythrocyte)" /> < statusCode code="completed" /> <effectiveTime value="006714107721" /> <value unit="pg" xsi:type="PQ" value="22" /> < interpretationCode codeSystem="local" code="" /> <referenceRange> <observationRange> <text>25-34</text> </ observationRange> </referenceRange> </observation> </ component> <component> <observation moodCode="EVN" classCode="OBS"> <templateId root="2.16.840.1.450401.10..22.4.2" /> <id nullFlavor="NA" /> <code codeSystem="local" code="786-4" displayName= "Automated erythrocyte mean corpuscular hemoglobin concentration measurement ( mass/volume)" /> <statusCode code="completed" /> < effectiveTime value="310736206314" /> <value unit="g/dL" xsi:type="PQ" value="30" /> <interpretationCode codeSystem="local" code="" /> <referenceRange> <observationRange> <text>32-36</ text> </observationRange> </referenceRange> </ observation> </component> <component> <observation moodCode= "EVN" classCode="OBS"> <templateId root="2.16.840.1.889557.10.20.22.4.2 " /> <id nullFlavor="NA" /> <code codeSystem="local" code="788 -0" displayName="Automated erythrocyte distribution width ratio" /> < statusCode code="completed" /> <effectiveTime value="125689136093" /> <value unit="%" xsi:type="PQ" value="20.6" /> < interpretationCode codeSystem="local" code="" /> <referenceRange> <observationRange> <text>10.0-14.5</text> </ observationRange> </referenceRange> </observation> </ component> <component> <observation moodCode="EVN" classCode="OBS"> <templateId root="216.840.1.514284.10..4.2" /> <id nullFlavor="NA" /> <code codeSystem="local" code="777-3" displayName= "Automated blood platelet count (count/volume)" /> <statusCode code= "completed" /> <effectiveTime value="" /> <value unit="10*3/uL" xsi:type="PQ" value="215" /> <referenceRange> <observationRange> <text>130-400</text> </ observationRange> </referenceRange> </observation> </ component> <component> <observation moodCode="EVN" classCode="OBS"> <templateId root="216.840.1.964951.10.20.22.4.2" /> <id nullFlavor="NA" /> <code codeSystem="local" code="14250-0" displayName= "Automated blood platelet mean volume measurement" /> <statusCode code= "completed" /> <effectiveTime value="644528823290" /> <value unit="[foz_us]" xsi:type="PQ" value="11.1" /> <interpretationCode codeSystem="local" code="" /> <referenceRange> < observationRange> <text>7.4-10.4</text> </ observationRange> </referenceRange> </observation> </ component> <component> <observation moodCode="EVN" classCode="OBS"> <templateId root="2.16.840.1.571947.10.2022.4.2" /> <id nullFlavor="NA" /> <code codeSystem="local" code="770-8" displayName= "Automated blood neutrophils/100 leukocytes" /> <statusCode code= "completed" /> <effectiveTime value="248490047344" /> <value unit="%" xsi:type="PQ" value="78" /> <interpretationCode codeSystem ="local" code="" /> <referenceRange> <observationRange> <text>42-75</text> </observationRange> </ referenceRange> </observation> </component> <component> <observation moodCode="EVN" classCode="OBS"> <templateId root= "2.16.840.1.587752.10.2022.4.2" /> <id nullFlavor="NA" /> < code codeSystem="local" code="736-9" displayName="Automated blood lymphocytes/ 100 leukocytes" /> <statusCode code="completed" /> < effectiveTime value="558622911595" /> <value unit="%" xsi:type="PQ " value="11" /> <interpretationCode codeSystem="local" code="" /> <referenceRange> <observationRange> <text>12-44</ text> </observationRange> </referenceRange> </ observation> </component> <component> <observation moodCode= "EVN" classCode="OBS"> <templateId root="2.16.840.1.192325.10.20.22.4.2 " /> <id nullFlavor="NA" /> <code codeSystem="local" code= "90007-5" displayName="Blood monocytes/100 leukocytes" /> <statusCode code="completed" /> <effectiveTime value="060334594125" /> < value unit="%" xsi:type="PQ" value="11" /> <referenceRange> <observationRange> <text>0-12</text> </ observationRange> </referenceRange> </observation> </ component> <component> <observation moodCode="EVN" classCode="OBS"> <templateId root="216.840.1.666676.10..22.4.2" /> <id nullFlavor="NA" /> <code codeSystem="local" code="713-8" displayName= "Automated blood eosinophils/100 leukocytes" /> <statusCode code= "completed" /> <effectiveTime value="252663588630" /> <value unit="%" xsi:type="PQ" value="1" /> <referenceRange> < observationRange> <text>0-10</text> </observationRange> </referenceRange> </observation> </component> < component> <observation moodCode="EVN" classCode="OBS"> < templateId root="216.840.1.767427.10.20.22.4.2" /> <id nullFlavor="NA " /> <code codeSystem="local" code="706-2" displayName="Automated blood basophils/100 leukocytes" /> <statusCode code="completed" /> <effectiveTime value="355640938322" /> <value unit="%" xsi: type="PQ" value="0" /> <referenceRange> <observationRange> <text>0-10</text> </observationRange> </ referenceRange> </observation> </component> <component> <observation moodCode="EVN" classCode="OBS"> <templateId root= "2.16.840.1.684389.10.2022.4.2" /> <id nullFlavor="NA" /> < code codeSystem="local" code="751-8" displayName="Blood neutrophils automated count (number/volume)" /> <statusCode code="completed" /> < effectiveTime value="291741988464" /> <value unit="10*3" xsi:type="PQ" value="7.0" /> <referenceRange> <observationRange> <text>1.8-7.8</text> </observationRange> </ referenceRange> </observation> </component> <component> <observation moodCode="EVN" classCode="OBS"> <templateId root= "2.16.840.1.324612.10.2022.4.2" /> <id nullFlavor="NA" /> < code codeSystem="local" code="731-0" displayName="Blood lymphocytes automated count (number/volume)" /> <statusCode code="completed" /> < effectiveTime value="841241177720" /> <value unit="10*3" xsi:type="PQ" value="1.0" /> <referenceRange> <observationRange> <text>1.0-4.0</text> </observationRange> </ referenceRange> </observation> </component> <component> <observation moodCode="EVN" classCode="OBS"> <templateId root= "216.840.1.722215.22.4.2" /> <id nullFlavor="NA" /> < code codeSystem="local" code="742-7" displayName="Blood monocytes automated count (number/volume)" /> <statusCode code="completed" /> < effectiveTime value="924356249231" /> <value unit="10*3" xsi:type="PQ" value="1.0" /> <referenceRange> <observationRange> <text>0.0-1.0</text> </observationRange> </ referenceRange> </observation> </component> <component> <observation moodCode="EVN" classCode="OBS"> <templateId root= "06.27.840.1.716605.02.28.22.4.2" /> <id nullFlavor="NA" /> < code codeSystem="local" code="711-2" displayName="Automated eosinophil count" / > <statusCode code="completed" /> <effectiveTime value= "569998325966" /> <value unit="10*3/uL" xsi:type="PQ" value="0.1" /> <referenceRange> <observationRange> <text>0.0- 0.3</text> </observationRange> </referenceRange> </ observation> </component> <component> <observation moodCode= "EVN" classCode="OBS"> <templateId root="06.27.840.1.216553.22.4.2 " /> <id nullFlavor="NA" /> <code codeSystem="local" code="704 -7" displayName="Automated blood basophil count (count/volume)" /> < statusCode code="completed" /> <effectiveTime value="707130544759" /> <value unit="10*3/uL" xsi:type="PQ" value="0.0" /> < referenceRange> <observationRange> <text>0.0-0.1</text> </observationRange> </referenceRange> </observation > </component> </organizer> </entry> <entry> <organizer moodCode= "EVN" classCode="BATTERY"> <templateId root="2.16.840.1.653130.10.20.22.4.1 " /> <id nullFlavor="NA" /> <code codeSystem="local" code="97631-3" displayName="Serum iron and total iron binding capacity panel" /> < statusCode code="completed" /> <component> <observation moodCode= "EVN" classCode="OBS"> <templateId root="2.16.840.1.626052.10.20.22.4.2 " /> <id nullFlavor="NA" /> <code codeSystem="local" code= "2498-4" displayName="Serum or plasma iron measurement (mass/volume)" /> <statusCode code="completed" /> <effectiveTime value="244000871673" /> <value unit="%" xsi:type="PQ" value="<" /> < interpretationCode codeSystem="local" code="" /> <referenceRange> <observationRange> <text>35-180</text> </ observationRange> </referenceRange> </observation> </ component> <component> <observation moodCode="EVN" classCode="OBS"> <templateId root="216.840.1.087379.10.20.22.4.2" /> <id nullFlavor="NA" /> <code codeSystem="local" code="94121-3" displayName= "Total iron binding capacity and transferrin saturation measurement" /> <statusCode code="completed" /> <effectiveTime value="276933622792" / > <value unit="%" xsi:type="PQ" value="<" /> < referenceRange> <observationRange> <text>15-50</text> </observationRange> </referenceRange> </observation> </component> <component> <observation moodCode="EVN" classCode= "OBS"> <templateId root="216.840.1.092647.10.20.22.4.2" /> < id nullFlavor="NA" /> <code codeSystem="local" code="2500" displayName="Iron binding capacity [mass/volume] in serum or plasma" /> <statusCode code="completed" /> <effectiveTime value="598083235456" / > <value unit="%" xsi:type="PQ" value="<" /> < referenceRange> <observationRange> <text>280-380</text> </observationRange> </referenceRange> </observation > </component> <component> <observation moodCode="EVN" classCode="OBS"> <templateId root="06.27.840.1.215198.10.20.22.4.2" /> <id nullFlavor="NA" /> <code codeSystem="local" code="25005-16" displayName="UIBC (unsaturated iron binding capacity)" /> <statusCode code="completed" /> <effectiveTime value="403196987985" /> < value unit="%" xsi:type="PQ" value="370" /> <referenceRange> <observationRange> <text>55-450</text> </ observationRange> </referenceRange> </observation> </ component> <component> <observation moodCode="EVN" classCode="OBS"> <templateId root="06.27.840.1.949491.10.20.22.4.2" /> <id nullFlavor="NA" /> <code codeSystem="local" code="2276-4" displayName= "Serum or plasma ferritin measurement (mass/volume)" /> <statusCode code="completed" /> <effectiveTime value="747645475216" /> < value unit="%" xsi:type="PQ" value="63.2" /> <referenceRange> <observationRange> <text>20.0-177.0</text> </ observationRange> </referenceRange> </observation> </ component> </organizer> </entry> <entry> <organizer moodCode="EVN" classCode="BATTERY"> <templateId root="216.840.1.322483.10.20.22.4.1" /> <id nullFlavor="NA" /> <code codeSystem="local" code="26542-6" displayName="Whole blood basic metabolic panel" /> <statusCode code= "completed" /> <component> <observation moodCode="EVN" classCode= "OBS"> <templateId root="216.840.1.817669.10.20.22.4.2" /> < id nullFlavor="NA" /> <code codeSystem="local" code="2951-2" displayName="Serum or plasma sodium measurement (moles/volume)" /> < statusCode code="completed" /> <effectiveTime value="787791454469" /> <value unit="mmol/L" xsi:type="PQ" value="139" /> < referenceRange> <observationRange> <text>135-145</text> </observationRange> </referenceRange> </observation > </component> <component> <observation moodCode="EVN" classCode="OBS"> <templateId root="216.840.1.207832.10.20.22.4.2" /> <id nullFlavor="NA" /> <code codeSystem="local" code="2823-3" displayName="Serum or plasma potassium measurement (moles/volume)" /> < statusCode code="completed" /> <effectiveTime value="309974040003" /> <value unit="mmol/L" xsi:type="PQ" value="3.6" /> < referenceRange> <observationRange> <text>3.6-5.0</text> </observationRange> </referenceRange> </observation > </component> <component> <observation moodCode="EVN" classCode="OBS"> <templateId root="2.16.840.1.636097.10.20.22.4.2" /> <id nullFlavor="NA" /> <code codeSystem="local" code="" displayName="Serum or plasma chloride measurement (moles/volume)" /> < statusCode code="completed" /> <effectiveTime value="968746213295" /> <value unit="mmol/L" xsi:type="PQ" value="109" /> < interpretationCode codeSystem="local" code="" /> <referenceRange> <observationRange> <text>98-107</text> </ observationRange> </referenceRange> </observation> </ component> <component> <observation moodCode="EVN" classCode="OBS"> <templateId root="2.16.840.1.372936.10.20.22.4.2" /> <id nullFlavor="NA" /> <code codeSystem="local" code="2028-01" displayName= "Carbon dioxide" /> <statusCode code="completed" /> < effectiveTime value="238384558447" /> <value unit="mmol/L" xsi:type="PQ " value="21" /> <referenceRange> <observationRange> <text>21-32</text> </observationRange> </ referenceRange> </observation> </component> <component> <observation moodCode="EVN" classCode="OBS"> <templateId root= "2.16.840.1.138551.10.20.22.4.2" /> <id nullFlavor="NA" /> < code codeSystem="local" code="48881-0" displayName="Serum or plasma anion gap determination (moles/volume)" /> <statusCode code="completed" /> <effectiveTime value="" /> <value unit="mmol/L" xsi: type="PQ" value="9" /> <referenceRange> <observationRange> <text>5-14</text> </observationRange> </ referenceRange> </observation> </component> <component> <observation moodCode="EVN" classCode="OBS"> <templateId root= "216.840.1.766754.10..22.4.2" /> <id nullFlavor="NA" /> < code codeSystem="local" code="3094-0" displayName="Serum or plasma urea nitrogen measurement (mass/volume)" /> <statusCode code="completed" /> <effectiveTime value="" /> <value unit="mg/dL" xsi:type="PQ" value="18" /> <referenceRange> < observationRange> <text>7-18</text> </observationRange> </referenceRange> </observation> </component> < component> <observation moodCode="EVN" classCode="OBS"> < templateId root="16.840.1.302380.10..22.4.2" /> <id nullFlavor="NA " /> <code codeSystem="local" code="2160-0" displayName="Serum or plasma creatinine measurement (mass/volume)" /> <statusCode code= "completed" /> <effectiveTime value="789217421780" /> <value unit="mg/dL" xsi:type="PQ" value="0.75" /> <referenceRange> <observationRange> <text>0.60-1.30</text> </ observationRange> </referenceRange> </observation> </ component> <component> <observation moodCode="EVN" classCode="OBS"> <templateId root="216.840.1.422952.10.20.22.4.2" /> <id nullFlavor="NA" /> <code codeSystem="local" code="3097-3" displayName= "Serum or plasma urea nitrogen/creatinine mass ratio" /> <statusCode code="completed" /> <effectiveTime value="278798678509" /> < value unit="" xsi:type="PQ" value="24" /> <referenceRange> < observationRange> <text>NRG</text> </observationRange> </referenceRange> </observation> </component> < component> <observation moodCode="EVN" classCode="OBS"> < templateId root="06.27.840.1.990636.10..22.4.2" /> <id nullFlavor="NA " /> <code codeSystem="local" code="62850-9" displayName="Serum or plasma creatinine measurement with calculation of estimated glomerular filtration rate" /> <statusCode code="completed" /> < effectiveTime value="931288118060" /> <value unit="" xsi:type="PQ" value=">" /> <referenceRange> <observationRange> <text>NRG</text> </observationRange> </referenceRange > </observation> </component> <component> <observation moodCode="EVN" classCode="OBS"> <templateId root= "16.840.1.360457.10.20.22.4.2" /> <id nullFlavor="NA" /> < code codeSystem="local" code="2345-7" displayName="Serum or plasma glucose measurement (mass/volume)" /> <statusCode code="completed" /> <effectiveTime value="186408636097" /> <value unit="mg/dL" xsi:type="PQ " value="92" /> <referenceRange> <observationRange> <text>70-105</text> </observationRange> </ referenceRange> </observation> </component> <component> <observation moodCode="EVN" classCode="OBS"> <templateId root= "2.16.840.1.844369.10.20.22.4.2" /> <id nullFlavor="NA" /> < code codeSystem="local" code="19143-7" displayName="Serum or plasma calcium measurement (mass/volume)" /> <statusCode code="completed" /> <effectiveTime value="694379924316" /> <value unit="mg/dL" xsi:type="PQ " value="8.3" /> <interpretationCode codeSystem="local" code="" /> <referenceRange> <observationRange> <text>8.5- 10.1</text> </observationRange> </referenceRange> </ observation> </component> </organizer> </entry></section> Encounters ACCT No. Visit Date/Time Discharge Status Pt. Type Provider Facility Loc./Unit Complaint [id number] 11/09/2016 16:32:00 11/09/2016 16:58:00 DIS Emergency Secrist [facility] W.ED [id number] 09/06/2016 12:52:00 09/06/2016 16:30:00 DIS Emergency Secrist [facility] W.ED [id number] 07/31/2016 16:36:00 07/31/2016 16:56:00 DIS Emergency Kirt DOStiven [facility] W.ED [id number] 01/11/2016 08:16:00 01/11/2016 08:47:00 DIS Emergency Marc TA, [facility] W.EDW [id number] 12/28/2015 19:32:00 12/28/2015 20:25:00 DIS Emergency Marc TA, [facility].EDW [id number] 11/28/2015 08:04:00 11/28/2015 08:30:00 DIS Emergency Jesica TA, Leon Shelley [facility] W.EDW [id number] 01/04/2015 09:52:00 01/04/2015 13:04:00 DIS Emergency Santoyo , [facility] W.HANNAH [id number] 01/01/2015 09:22:00 01/01/2015 12:40:00 DIS Emergency Markus SANTACRUZ, Colt Lal [facility] W.EDW [id number] 12/27/2014 21:37:00 12/27/2014 23:13:00 DIS Emergency Marc TA, [facility].EDW [id number] 09/17/2014 10:42:00 09/17/2014 11:10:00 [id number] 11/26/2017 08:00:00 11/26/2017 23:59:59 CLS Outpatient FAWN VIEIRA LAC [facility] DENTAL [id number] 11/19/2017 20:04:00 11/20/2017 13:40:00 DIS Outpatient Leon Naik [facility] MED-SURG [id number] 03/31/2017 12:56:00 03/31/2017 23:59:00 DIS Outpatient Roxy Moon [id number] 03/27/2017 21:26:00 03/28/2017 18:20:00 DIS Outpatient Daniel Joseph [facility] MED-SURG [id number] 03/27/2017 23:46:04 Document Registration [id number] 06/12/2018 17:05:00 06/12/2018 17:16:00 DIS Emergency IRISH ECKERT [facility] ER L LEG POSS STAPH INFECTION /WOUND [id number] 05/24/2018 20:00:00 05/26/2018 14:55:00 DIS Inpatient BLAYNE TA, CHET Whipple [facility] 4TH PYELONEPHRITIS, HYDROSALPYRX [id number] 03/19/2018 17:23:00 03/21/2018 11:50:00 DIS Inpatient JOSEPH TA, JOSE Whipple [facility] 4TH SEPSIS, UTI [id number] 01/29/2018 12:54:00 01/29/2018 19:55:00 DIS Outpatient JAYY POPE DO [facility] SDC LEFT BREAST ABSCESS [id number] 12/01/2017 17:13:00 12/01/2017 18:01:00 DIS Emergency IRISH ECKERT [facility] ER L HAND INJ [id number] 05/29/2017 02:30:00 05/29/2017 06:20:00 DIS Emergency KENDRA TA, SHIRLENE Jackson [facility] ER LEFT SIDE ABD PAIN [id number] 06/12/2018 20:39:00 ACT Emergency QUIN GONZALEZ DO [facility] ER L LEG POSS STAPH INFECTION/WOUND [id number] 11/19/2017 20:04:00 Document Registration
--- NOTE | 2018-06-12 21:21 | NUR ---
pt left without being seen. Went to get patient to take back to [facility] and patient was not in waiting room.
== END 2018-06-12 21:21 | disposition left against medical advice (07) ==
LOC: EDUNIT# 20:38 → ER 20:39
DX: S81.802A Unspecified open wound, left lower leg, initial encounter (principal); W22.09XA Striking against other stationary object, initial encounter

== ENCOUNTER → 2018-06-13 | Emergency (ER) | payer SELFPAY ==
--- OUTSIDE RECORDS SUMMARY | 2018-06-13 12:14 | XMS REPORT | Continuity of Care Document ---
Author Author [facility] Organization [facility] Address Unknown Phone Unavailable Allergies Active Description Code Type Severity Reaction Onset Reported/Identified Relationship to Patient Clinical Status Yes CIPRO MODERATE DERMATOLOGICAL - HIV Yes No Known Drug Allergies [id number] Drug Allergy Unknown N/A 09/22/2007 Yes ciprofloxacin ciprofloxacin Drug Allergy Unknown unknown 07/31/2016 Yes ciprofloxacin [id number] Drug Allergy Unknown N/A 05/29/2017 Medications Medication [...] Z90.89 ACQUIRED ABSENCE OF OTHER ORGANS 01/29/2018 [facility] SATNACRUZ Ot F17.210 NICOTINE DEPENDENCE, CIGARETTES, UNCOMPL 01/29/2018 [facility], JAYY D Ot N61.1 ABSCESS OF THE BREAST AND NIPPLE [facility].210 NICOTINE DEPENDENCE, CIGARETTES, UNCOMPL 02[facility]02[facility] N61.1 ABSCESS OF THE [...] data. <section xmlns="urn:hl7-org:v3" xmlns:xsi="http:// www.3.org/2001/XMLSchema-instance"> <templateId root= "2.16.840.1.638040.10.20.22.2.3" /> <templateId root= "2.16.840.1.324154.10.20.22.2.3.1" /> <code codeSystemName="LOINC" codeSystem= "2.16.840.1.524261.6.1" code="97409-4" displayName="Results" /> <title>Results< /title> <text> <table> <thead> [...] </td> < td> </td> </tr> <tr> <td>Urine-Specific Seibert</td> <td>1.020 </td> <td>1.000-1.030</td> </tr> <tr> <td>Urine-WBC</td> <td>2-5/HPF </td> <td> </td> </tr> <tr> <td>Urobilinogen</td> <td>0.2 </td> <td>0.2-1.0</td> </tr> <tr> < colspan="10">XM (2) [facility] - 03/27/17 22:55</th> </tr> <tr> [...] </tr> <tr> <td> Surg Path</td> <td>Sent to [facility] </td> <td /> </tr> <tr> < [...] > <td>MCV</td> <td>73.4 fL</td> <td>80.0-97.0</td> </tr> <tr> <td>Kittson%</td> <td>7.6 %</td> <td>0.0-12.0</td> </tr> <tr> <td>MPV</td> <td>11.1 fL</td> <td>7.4-10.0</td> </tr> <tr> <td>Julianne%</td> <td>60.2 %</td> <td>37.0-80.0</td> </tr> <tr> <td>Plt</td> <td>222 K/uL</td> <td>150-400</td> </tr> <tr> <td>RBC</td> <td >4.67 M/uL</td> <td>3.60-5.00</td> </tr> <tr> < td>RDW</td> <td>22.7 %</td> <td>11.6-14.8</td> </tr > <tr> <td>WBC</td> <td>7.36 K/uL</td> <td> 5.00-10.00</td> </tr> <tr> <td>Julianne</td> <td> 4.43 K/uL</td> <td>2.00-6.90</td> </tr> <tr> <td >Kittson</td> <td>0.6 K/uL</td> <td>0.0-0.9</td> </tr> <tr> <td>Baso</td> <td>0.1 [...] GROWTH</td> <td>. </td> <td>NRG</td> </tr> <tr> < colspan="10">[facility] Sensitivity Panel - 01/29/18 16:37</th> [...] 15:50</th> </tr> <tr> <td>Bacterial urine culture</td> <td> [id number] </td> <td>NRG</td> </tr> <tr> <td> COLONY COUNT</td> <td>>100,000/ML </td> <td>NRG</td> </tr> <tr> <td>FTX;REPORTABLE</td> <td> SUSCEPTIBILITY REPORTED 03-21-2018,1005 </td> <td>NRG</td> </tr > <tr> <th colspan="10">[facility] Sensitivity Panel - 03/19/18 15:50</ th> </tr> [...] 05/24/18 15:18</th> </tr> <tr> <td>Bacterial urine culture</td> <td>[id number] </td> <td>NRG</td> </ tr> <tr> <td>COLONY COUNT</td> [...] </text> <entry> <organizer moodCode="EVN" classCode="BATTERY"> < templateId root="2.16.840.1.412719.10.20.22.4.1" /> <id nullFlavor="NA" /> <code codeSystem="local" code="UA" displayName="URINALYSIS, ROUTINE" /> <statusCode code="completed" /> <component> <observation moodCode="EVN" classCode="OBS"> <templateId root= "06.27.840.1.575386.10.20.22.4.2" /> <id nullFlavor="NA" /> < code codeSystem="local" code="LEUESU" displayName="UA LEUKOCYTE ESTERASE DIPSTICK" /> <statusCode code="completed" /> <effectiveTime value="906719647554" /> <value unit="" xsi:type="PQ" value="2+" /> <interpretationCode codeSystem="local" code="*" /> < referenceRange> <observationRange> <text>NEGATIVE</text > </observationRange> </referenceRange> </observation > </component> <component> <observation moodCode="EVN" classCode="OBS"> <templateId root="840.1.064496.10..4.2" /> <id nullFlavor="NA" /> <code codeSystem="local" code="NITRIU" displayName="UA NITRITE DIPSTICK" /> <statusCode code="completed" /> <effectiveTime value="757734216796" /> <value unit="" xsi:type= "PQ" value="POSITIVE" /> <interpretationCode codeSystem="local" code="* " /> <referenceRange> <observationRange> <text> NEGATIVE</text> </observationRange> </referenceRange> </observation> </component> <component> <observation moodCode ="EVN" classCode="OBS"> <templateId root= "06.27.840.1.369216.10.20.22.4.2" /> <id nullFlavor="NA" /> < code codeSystem="local" code="PROTEIU" displayName="UA PROTEIN DIPSTICK" /> <statusCode code="completed" /> <effectiveTime value= "" /> <value unit="" xsi:type="PQ" value="1+" /> < interpretationCode codeSystem="local" code="*" /> <referenceRange> <observationRange> <text>NEGATIVE</text> </ observationRange> </referenceRange> </observation> </ component> <component> <observation moodCode="EVN" classCode="OBS"> <templateId root="06.27.840.1.753117.10...4.2" /> <id nullFlavor="NA" /> <code codeSystem="local" code="DGLUU" displayName= "UA GLUCOSE DIPSTICK" /> <statusCode code="completed" /> < effectiveTime value="" /> <value unit="" xsi:type="PQ" value="NEGATIVE" /> <referenceRange> <observationRange> <text>NEGATIVE</text> </observationRange> </ referenceRange> </observation> </component> <component> <observation moodCode="EVN" classCode="OBS"> <templateId root= "16.840.1.151676.10.20.22.4.2" /> <id nullFlavor="NA" /> < code codeSystem="local" code="KETONU" displayName="UA KETONE DIPSTICK" /> <statusCode code="completed" /> <effectiveTime value="050404546061 " /> <value unit="" xsi:type="PQ" value="NEGATIVE" /> < referenceRange> <observationRange> <text>NEGATIVE</text > </observationRange> </referenceRange> </observation > </component> <component> <observation moodCode="EVN" classCode="OBS"> <templateId root="06.27.840.1.391413.02.28.22.4.2" /> <id nullFlavor="NA" /> <code codeSystem="local" code="UROBILU " displayName="UA UROBILINOGEN DIPSTICK" /> <statusCode code="completed " /> <effectiveTime value="" /> <value unit="" xsi :type="PQ" value="NORMAL" /> <referenceRange> < observationRange> <text>NORMAL</text> </observationRange > </referenceRange> </observation> </component> < component> <observation moodCode="EVN" classCode="OBS"> < templateId root="216.840.1.330198.02.28.22.4.2" /> <id nullFlavor="NA " /> <code codeSystem="local" code="BILU" displayName="UA BILIRUBIN DIPSTICK" /> <statusCode code="completed" /> <effectiveTime value="" /> <value unit="" xsi:type="PQ" value="NEGATIVE" / > <referenceRange> <observationRange> <text> NEGATIVE</text> </observationRange> </referenceRange> </observation> </component> <component> <observation moodCode ="EVN" classCode="OBS"> <templateId root= "216.840.1.216920.02.28.22.4.2" /> <id nullFlavor="NA" /> < code codeSystem="local" code="NOLVIA" displayName="UA BLOOD DIPSTICK" /> < statusCode code="completed" /> <effectiveTime value="" /> <value unit="" xsi:type="PQ" value="TRACE" /> < interpretationCode codeSystem="local" code="*" /> <referenceRange> <observationRange> <text>NEGATIVE</text> </ observationRange> </referenceRange> </observation> </ component> <component> <observation moodCode="EVN" classCode="OBS"> <templateId root="216.840.1.487326.10.22.4.2" /> <id nullFlavor="NA" /> <code codeSystem="local" code="SPGRU" displayName= "UA SPECIFIC GRAVITY" /> <statusCode code="completed" /> < effectiveTime value="791675778600" /> <value unit="" xsi:type="PQ" value="1.015" /> <referenceRange> <observationRange> <text>1.015-1.025</text> </observationRange> </ referenceRange> </observation> </component> <component> <observation moodCode="EVN" classCode="OBS"> <templateId root= "16.840.1.920215...4.2" /> <id nullFlavor="NA" /> < code codeSystem="local" code="DIETER" displayName="UR PH" /> <statusCode code="completed" /> <effectiveTime value="332120339948" /> < value unit="" xsi:type="PQ" value="6.0" /> <referenceRange> <observationRange> <text>5.0-7.0</text> </ observationRange> </referenceRange> </observation> </ component> <component> <observation moodCode="EVN" classCode="OBS"> <templateId root="16.840.1.858972.10..22.4.2" /> <id nullFlavor="NA" /> <code codeSystem="local" code="MB" displayName= "Microbiology" /> <statusCode code="completed" /> < effectiveTime value="760741947097" /> <value unit="" xsi:type="PQ" value="" /> <referenceRange> <observationRange> <text /> </observationRange> </referenceRange> </ observation> </component> </organizer> </entry> <entry> <organizer moodCode="EVN" classCode="BATTERY"> <templateId root= "216.840.1.584263.10..22.4.1" /> <id nullFlavor="NA" /> <code codeSystem="local" code="UAMICRO" displayName="UA MICROSCOPIC" /> < statusCode code="completed" /> <component> <observation moodCode= "EVN" classCode="OBS"> <templateId root="216.840.1.455877.10...4.2 " /> <id nullFlavor="NA" /> <code codeSystem="local" code= "EPIU" displayName="UA EPITHELIAL CELLS" /> <statusCode code="completed " /> <effectiveTime value="243308216453" /> <value unit="epi/ hpf" xsi:type="PQ" value="2+" /> <interpretationCode codeSystem="local " code="*" /> <referenceRange> <observationRange> <text>0 - 1+</text> </observationRange> </referenceRange > </observation> </component> <component> <observation moodCode="EVN" classCode="OBS"> <templateId root= "216.840.1.965257...4.2" /> <id nullFlavor="NA" /> < code codeSystem="local" code="RBCU" displayName="UA RBC" /> < statusCode code="completed" /> <effectiveTime value="055946288715" /> <value unit="rbc/hpf" xsi:type="PQ" value="0" /> < referenceRange> <observationRange> <text>0 - 3</text> </observationRange> </referenceRange> </observation> </component> <component> <observation moodCode="EVN" classCode= "OBS"> <templateId root="216.840.1.608441.10..22.4.2" /> < id nullFlavor="NA" /> <code codeSystem="local" code="UAVOL" displayName ="UA VOLUME FOR EXAM" /> <statusCode code="completed" /> < effectiveTime value="" /> <value unit="mL" xsi:type="PQ" value="12.0" /> <referenceRange> <observationRange> <text>(12mL STD)</text> </observationRange> </ referenceRange> </observation> </component> <component> <observation moodCode="EVN" classCode="OBS"> <templateId root= "216.840.1.232284.10..4.2" /> <id nullFlavor="NA" /> < code codeSystem="local" code="WBCU" displayName="UA WBC" /> < statusCode code="completed" /> <effectiveTime value="" /> <value unit="wbc/hpf" xsi:type="PQ" value="20-50" /> < interpretationCode codeSystem="local" code="*" /> <referenceRange> <observationRange> <text>0 - 5</text> </ observationRange> </referenceRange> </observation> </ component> <component> <observation moodCode="EVN" classCode="OBS"> <templateId root="16.840.1.243425.10..22.4.2" /> <id nullFlavor="NA" /> <code codeSystem="local" code="WBCCLUMPS" displayName="WBC CLUMPS" /> <statusCode code="completed" /> < effectiveTime value="" /> <value unit="" xsi:type="PQ" value="PRESENT" /> <interpretationCode codeSystem="local" code="*" /> <referenceRange> <observationRange> <text> NEGATIVE</text> </observationRange> </referenceRange> </observation> </component> </organizer> </entry> <entry> < organizer moodCode="EVN" classCode="BATTERY"> <templateId root= "16.840.1.036398.10..22.4.1" /> <id nullFlavor="NA" /> <code codeSystem="local" code="PREGU" displayName="UR TEST" /> < statusCode code="completed" /> <component> <observation moodCode= "EVN" classCode="OBS"> <templateId root="16.840.1.858919.10...4.2 " /> <id nullFlavor="NA" /> <code codeSystem="local" code= "PREGU" displayName="UR TEST" /> <statusCode code="completed " /> <effectiveTime value="121843319154" /> <value unit="" xsi :type="PQ" value="NEGATIVE" /> <referenceRange> < observationRange> <text>NEGATIVE</text> </ observationRange> </referenceRange> </observation> </ component> <component> <observation moodCode="EVN" classCode="OBS"> <templateId root="06.27.840.1.505322.10..22.4.2" /> <id nullFlavor="NA" /> <code codeSystem="local" code="MB" displayName= "Microbiology" /> <statusCode code="completed" /> < effectiveTime value="292822801240" /> <value unit="" xsi:type="PQ" value="" /> <referenceRange> <observationRange> <text /> </observationRange> </referenceRange> </ observation> </component> </organizer> </entry> <entry> <organizer moodCode="EVN" classCode="BATTERY"> <templateId root= "2.16.840.1.329194.10.20.22.4.1" /> <id nullFlavor="NA" /> <code codeSystem="local" code="PREGU" displayName="UR TEST" /> < statusCode code="completed" /> <component> <observation moodCode= "EVN" classCode="OBS"> <templateId root="2.16.840.1.870660.10.20.22.4.2 " /> <id nullFlavor="NA" /> <code codeSystem="local" code= "PREGU" displayName="UR TEST" /> <statusCode code="completed " /> <effectiveTime value="637846444334" /> <value xsi:type= "ST" value="<pre><b>UR TEST</b> NEGATIVE</pre>" /> < referenceRange> <observationRange> <text>NEGATIVE</text > </observationRange> </referenceRange> </observation > </component> <component> <observation moodCode="EVN" classCode="OBS"> <templateId root="2.16.840.1.917397.10..22.4.2" /> <id nullFlavor="NA" /> <code codeSystem="local" code="MB" displayName="Microbiology" /> <statusCode code="completed" /> <effectiveTime value="758593643214" /> <value xsi:type="ST" value="<pre ><b>UR TEST</b> NEGATIVE</pre>" /> <referenceRange> <observationRange> <text /> </observationRange> </referenceRange> </observation> </component> </organizer> </entry> <entry> <organizer moodCode="EVN" classCode="BATTERY"> < templateId root="06.27.840.1.680555.10..4.1" /> <id nullFlavor="NA" /> <code codeSystem="local" code="UA" displayName="URINALYSIS, ROUTINE" /> <statusCode code="completed" /> <component> <observation moodCode="EVN" classCode="OBS"> <templateId root= "06.27.840.1.819491.02.28.22.4.2" /> <id nullFlavor="NA" /> < code codeSystem="local" code="LEUESU" displayName="UA LEUKOCYTE ESTERASE DIPSTICK" /> <statusCode code="completed" /> <effectiveTime value="761110512626" /> <value unit="" xsi:type="PQ" value="TRACE" /> <referenceRange> <observationRange> <text> NEGATIVE</text> </observationRange> </referenceRange> </observation> </component> <component> <observation moodCode ="EVN" classCode="OBS"> <templateId root= "06.27.840.1.446364.02.28.224.2" /> <id nullFlavor="NA" /> < code codeSystem="local" code="NITRIU" displayName="UA NITRITE DIPSTICK" /> <statusCode code="completed" /> <effectiveTime value="304694803664 " /> <value unit="" xsi:type="PQ" value="NEGATIVE" /> < referenceRange> <observationRange> <text>NEGATIVE</text > </observationRange> </referenceRange> </observation > </component> <component> <observation moodCode="EVN" classCode="OBS"> <templateId root="06.27.840.1.733982.02.28.22.4.2" /> <id nullFlavor="NA" /> <code codeSystem="local" code="PROTEIU " displayName="UA PROTEIN DIPSTICK" /> <statusCode code="completed" /> <effectiveTime value="746835333541" /> <value unit="" xsi: type="PQ" value="2+" /> <interpretationCode codeSystem="local" code="* " /> <referenceRange> <observationRange> <text> NEGATIVE</text> </observationRange> </referenceRange> </observation> </component> <component> <observation moodCode ="EVN" classCode="OBS"> <templateId root= "216.840.1.778356.10...4.2" /> <id nullFlavor="NA" /> < code codeSystem="local" code="DGLUU" displayName="UA GLUCOSE DIPSTICK" /> <statusCode code="completed" /> <effectiveTime value="115109331943 " /> <value unit="" xsi:type="PQ" value="NEGATIVE" /> < referenceRange> <observationRange> <text>NEGATIVE</text > </observationRange> </referenceRange> </observation > </component> <component> <observation moodCode="EVN" classCode="OBS"> <templateId root="2.16.840.1.583436.10...4.2" /> <id nullFlavor="NA" /> <code codeSystem="local" code="KETONU" displayName="UA KETONE DIPSTICK" /> <statusCode code="completed" /> <effectiveTime value="607809965087" /> <value unit="" xsi:type= "PQ" value="2+" /> <interpretationCode codeSystem="local" code="*" /> <referenceRange> <observationRange> <text> NEGATIVE</text> </observationRange> </referenceRange> </observation> </component> <component> <observation moodCode ="EVN" classCode="OBS"> <templateId root= "216.840.1.452972.10..4.2" /> <id nullFlavor="NA" /> < code codeSystem="local" code="UROBILU" displayName="UA UROBILINOGEN DIPSTICK" / > <statusCode code="completed" /> <effectiveTime value= "060830025335" /> <value unit="" xsi:type="PQ" value="2+" /> < referenceRange> <observationRange> <text>NORMAL</text> </observationRange> </referenceRange> </observation> </component> <component> <observation moodCode="EVN" classCode ="OBS"> <templateId root="16.840.1.162897...4.2" /> < id nullFlavor="NA" /> <code codeSystem="local" code="BILU" displayName= "UA BILIRUBIN DIPSTICK" /> <statusCode code="completed" /> < effectiveTime value="165965096217" /> <value unit="" xsi:type="PQ" value="1+" /> <interpretationCode codeSystem="local" code="*" /> <referenceRange> <observationRange> <text>NEGATIVE</ text> </observationRange> </referenceRange> </ observation> </component> <component> <observation moodCode= "EVN" classCode="OBS"> <templateId root="16.840.1.885761.10..22.4.2 " /> <id nullFlavor="NA" /> <code codeSystem="local" code="NOLVIA " displayName="UA BLOOD DIPSTICK" /> <statusCode code="completed" /> <effectiveTime value="529577834782" /> <value unit="" xsi:type= "PQ" value="TRACE" /> <interpretationCode codeSystem="local" code="*" / > <referenceRange> <observationRange> <text> NEGATIVE</text> </observationRange> </referenceRange> </observation> </component> <component> <observation moodCode ="EVN" classCode="OBS"> <templateId root= "16.840.1.476375.10.4.2" /> <id nullFlavor="NA" /> < code codeSystem="local" code="SPGRU" displayName="UA SPECIFIC GRAVITY" /> <statusCode code="completed" /> <effectiveTime value="856974964507 " /> <value unit="" xsi:type="PQ" value="1.015" /> < referenceRange> <observationRange> <text>1.015-1.025</ text> </observationRange> </referenceRange> </ observation> </component> <component> <observation moodCode= "EVN" classCode="OBS"> <templateId root="06.27.840.1.421614.02.28.22.4.2 " /> <id nullFlavor="NA" /> <code codeSystem="local" code="DIETER " displayName="UR PH" /> <statusCode code="completed" /> < effectiveTime value="670533915399" /> <value unit="" xsi:type="PQ" value="6.0" /> <referenceRange> <observationRange> <text>5.0-7.0</text> </observationRange> </ referenceRange> </observation> </component> <component> <observation moodCode="EVN" classCode="OBS"> <templateId root= "06.27.840.1.944013.1022.4.2" /> <id nullFlavor="NA" /> < code codeSystem="local" code="MB" displayName="Microbiology" /> < statusCode code="completed" /> <effectiveTime value="163409340581" /> <value unit="" xsi:type="PQ" value="" /> <referenceRange> <observationRange> <text /> </observationRange> </referenceRange> </observation> </component> </ organizer> </entry> <entry> <organizer moodCode="EVN" classCode="BATTERY"> <templateId root="216.840.1.840091.10..22.4.1" /> <id nullFlavor= "NA" /> <code codeSystem="local" code="UAMICRO" displayName="UA MICROSCOPIC " /> <statusCode code="completed" /> <component> <observation moodCode="EVN" classCode="OBS"> <templateId root= "216.840.1.950563...4.2" /> <id nullFlavor="NA" /> < code codeSystem="local" code="BACU" displayName="UA BACTERIA" /> < statusCode code="completed" /> <effectiveTime value="583992031105" /> <value unit="" xsi:type="PQ" value="2+" /> < interpretationCode codeSystem="local" code="*" /> <referenceRange> <observationRange> <text>NEGATIVE</text> </ observationRange> </referenceRange> </observation> </ component> <component> <observation moodCode="EVN" classCode="OBS"> <templateId root="216.840.1.005651.10..4.2" /> <id nullFlavor="NA" /> <code codeSystem="local" code="EPIU" displayName=" UA EPITHELIAL CELLS" /> <statusCode code="completed" /> < effectiveTime value="646999972621" /> <value unit="epi/hpf" xsi:type= "PQ" value="1+" /> <referenceRange> <observationRange> <text>0 - 1+</text> </observationRange> </ referenceRange> </observation> </component> <component> <observation moodCode="EVN" classCode="OBS"> <templateId root= "216.840.1.045004.10..4.2" /> <id nullFlavor="NA" /> < code codeSystem="local" code="MUCUSU" displayName="UA MUCUS" /> < statusCode code="completed" /> <effectiveTime value="056739492611" /> <value unit="" xsi:type="PQ" value="1+" /> <referenceRange> <observationRange> <text>NEG TO 1+</text> </ observationRange> </referenceRange> </observation> </ component> <component> <observation moodCode="EVN" classCode="OBS"> <templateId root="06.27.840.1.673271...4.2" /> <id nullFlavor="NA" /> <code codeSystem="local" code="RBCU" displayName=" UA RBC" /> <statusCode code="completed" /> <effectiveTime value="281575258018" /> <value unit="rbc/hpf" xsi:type="PQ" value="0-3 " /> <referenceRange> <observationRange> <text> 0 - 3</text> </observationRange> </referenceRange> </ observation> </component> <component> <observation moodCode= "EVN" classCode="OBS"> <templateId root="06.27.840.1.032728.10..4.2 " /> <id nullFlavor="NA" /> <code codeSystem="local" code= "UAVOL" displayName="UA VOLUME FOR EXAM" /> <statusCode code="completed " /> <effectiveTime value="865382889258" /> <value unit="mL" xsi:type="PQ" value="12.0" /> <referenceRange> < observationRange> <text>(12mL STD)</text> </ observationRange> </referenceRange> </observation> </ component> <component> <observation moodCode="EVN" classCode="OBS"> <templateId root="06.27.840.1.401924.02.28.22.4.2" /> <id nullFlavor="NA" /> <code codeSystem="local" code="WBCU" displayName=" UA WBC" /> <statusCode code="completed" /> <effectiveTime value="464365264431" /> <value unit="wbc/hpf" xsi:type="PQ" value="10- 20" /> <interpretationCode codeSystem="local" code="*" /> < referenceRange> <observationRange> <text>0 - 5</text> </observationRange> </referenceRange> </observation> </component> </organizer> </entry> <entry> <organizer moodCode="EVN " classCode="BATTERY"> <templateId root="06.27.840.1.724864.02.28.22.4.1" / > <id nullFlavor="NA" /> <code codeSystem="local" code="CBCD" displayName="CBC W/DIFF" /> <statusCode code="completed" /> <component > <observation moodCode="EVN" classCode="OBS"> <templateId root= "06.27.840.1.213667.02.28.22.4.2" /> <id nullFlavor="NA" /> < code codeSystem="local" code="CBCCOM" displayName="COMMENT" /> < statusCode code="completed" /> <effectiveTime value="891365379772" /> <value xsi:type="ST" value="<pre><b>CBC W/DIFF</b> 6.64.729.93[id number]..4NOTEDREVIEWED</pre>" /> <referenceRange> <observationRange> <text /> </observationRange> </referenceRange> </observation> </ component> <component> <observation moodCode="EVN" classCode="OBS"> <templateId root="2.16.840.1.487668.10.20.22.4.2" /> <id nullFlavor="NA" /> <code codeSystem="local" code="GR#" displayName= "GRANULOCYTE #" /> <statusCode code="completed" /> < effectiveTime value="070346925730" /> <value xsi:type="ST" value="<pre> <b>CBC W/DIFF</b> 6729.93[id number]..4NOTEDREVIEWED</ pre>" /> <referenceRange> <observationRange> < text>2.0-9.0</text> </observationRange> </referenceRange> </observation> </component> <component> <observation moodCode="EVN" classCode="OBS"> <templateId root= "16.840.1.802280.10..22.4.2" /> <id nullFlavor="NA" /> < code codeSystem="local" code="GR%" displayName="GRANULOCYTE %" /> <statusCode code="completed" /> <effectiveTime value="[id number] " /> <value xsi:type="ST" value="<pre><b>CBC W/DIFF</b> [id number]</pre>" /> <interpretationCode codeSystem="local" code="*" /> <referenceRange> <observationRange> <text>50-75</text> </ observationRange> </referenceRange> </observation> </ component> <component> <observation moodCode="EVN" classCode="OBS"> <templateId root="2.16.840.1.301087.10...4.2" /> <id nullFlavor="NA" /> <code codeSystem="local" code="LY#" displayName= "LYMPHOCYTE #" /> <statusCode code="completed" /> < effectiveTime value="[id number]" /> <value xsi:type="ST" value="<pre> <b>CBC W/DIFF</b> [id number]</ pre>" /> <interpretationCode codeSystem="local" code="*" /> < referenceRange> <observationRange> <text>1.0-4.0</text> </observationRange> </referenceRange> </observation > </component> <component> <observation moodCode="EVN" classCode="OBS"> <templateId root="2.16.840.1.447715.10...4.2" /> <id nullFlavor="NA" /> <code codeSystem="local" code="LY% " displayName="LYMPHOCYTE %" /> <statusCode code="completed" /> <effectiveTime value="138938055852" /> <value xsi:type="ST" value="<pre><b>CBC W/DIFF</b> 6.729.932.067.821.030.922.4867725473.4NOTEDREVIEWED</pre>" /> <interpretationCode codeSystem="local" code="*" /> <referenceRange> <observationRange> <text>20-30</text> </ observationRange> </referenceRange> </observation> </ component> <component> <observation moodCode="EVN" classCode="OBS"> <templateId root="2.16.840.1.414257.10..4.2" /> <id nullFlavor="NA" /> <code codeSystem="local" code="MCH" displayName= "MEAN CELL HGB" /> <statusCode code="completed" /> < effectiveTime value="811938393914" /> <value xsi:type="ST" value="<pre> <b>CBC W/DIFF</b> 6.729.932.067.821.030.922.9720980272.4NOTEDREVIEWED</ pre>" /> <interpretationCode codeSystem="local" code="*" /> < referenceRange> <observationRange> <text>27.0-33.0</text > </observationRange> </referenceRange> </observation > </component> <component> <observation moodCode="EVN" classCode="OBS"> <templateId root="2.16.840.1.942615.10..4.2" /> <id nullFlavor="NA" /> <code codeSystem="local" code="MCHC" displayName="MEAN CELL HGB CONCENTRATION" /> <statusCode code= "completed" /> <effectiveTime value="835943646482" /> <value xsi:type="ST" value="<pre><b>CBC W/DIFF</b> 6..729.932.067.821.030.922.1265442799.4NOTEDREVIEWED</pre>" /> <interpretationCode codeSystem="local" code="*" /> <referenceRange> <observationRange> <text>32.0-37.0</text> </ observationRange> </referenceRange> </observation> </ component> <component> <observation moodCode="EVN" classCode="OBS"> <templateId root="2.16.840.1.652751.10..4.2" /> <id nullFlavor="NA" /> <code codeSystem="local" code="MCV" displayName= "MEAN CELL VOLUME" /> <statusCode code="completed" /> < effectiveTime value="280701023447" /> <value xsi:type="ST" value="<pre> <b>CBC W/DIFF</b> 6.729.932.067.821.030.922.6032779130.30.90.4NOTEDREVIEWED</ pre>" /> <interpretationCode codeSystem="local" code="*" /> < referenceRange> <observationRange> <text>80.0-100.0</ text> </observationRange> </referenceRange> </ observation> </component> <component> <observation moodCode= "EVN" classCode="OBS"> <templateId root="2.16.840.1.668474.10..4.2 " /> <id nullFlavor="NA" /> <code codeSystem="local" code="MO# " displayName="MONOCYTE #" /> <statusCode code="completed" /> <effectiveTime value="808519385722" /> <value xsi:type="ST" value="<pre ><b>CBC W/DIFF</b> 6.64729.932.067.821.030.922.1227285742.4NOTEDREVIEWED< /pre>" /> <referenceRange> <observationRange> < text>0.1-1.0</text> </observationRange> </referenceRange> </observation> </component> <component> <observation moodCode="EVN" classCode="OBS"> <templateId root= "2.16.840.1.404659.10..22.4.2" /> <id nullFlavor="NA" /> < code codeSystem="local" code="MO%" displayName="MONOCYTE %" /> <statusCode code="completed" /> <effectiveTime value="746058194854" /> <value xsi:type="ST" value="<pre><b>CBC W/DIFF</b> 6.64.729.932.067.821.030.922.5526850902..4NOTEDREVIEWED</pre>" /> <referenceRange> <observationRange> <text>4-6</text> </observationRange> </referenceRange> </observation> </component> <component> <observation moodCode="EVN" classCode= "OBS"> <templateId root="2.16.840.1.921027.10.20.22.4.2" /> < id nullFlavor="NA" /> <code codeSystem="local" code="OVAL" displayName= "OVALOCYTES" /> <statusCode code="completed" /> < effectiveTime value="928760203132" /> <value xsi:type="ST" value="<pre> <b>CBC W/DIFF</b> 6.64.729.932.067.821.030.922.9807977303.90.4NOTEDREVIEWED</ pre>" /> <referenceRange> <observationRange> < text /> </observationRange> </referenceRange> </ observation> </component> <component> <observation moodCode= "EVN" classCode="OBS"> <templateId root="2.16.840.1.169444.10..22.4.2 " /> <id nullFlavor="NA" /> <code codeSystem="local" code="RBC " displayName="RED BLOOD CELL" /> <statusCode code="completed" /> <effectiveTime value="249607069417" /> <value xsi:type="ST" value= "<pre><b>CBC W/DIFF</b> 6.64.729.932.067.821.030.922.8305171360..4NOTEDREVIEWED</pre>" /> <referenceRange> <observationRange> <text>4.00-6.00</ text> </observationRange> </referenceRange> </ observation> </component> <component> <observation moodCode= "EVN" classCode="OBS"> <templateId root="216.840.1.670704.10..22.4.2 " /> <id nullFlavor="NA" /> <code codeSystem="local" code="RDW " displayName="RED CELL DISTRIBUTION WIDTH" /> <statusCode code= "completed" /> <effectiveTime value="064752587849" /> <value xsi:type="ST" value="<pre><b>CBC W/DIFF</b> 6.64.729.932.067.821.030.922.9384484644..4NOTEDREVIEWED</pre>" /> <interpretationCode codeSystem="local" code="*" /> <referenceRange> <observationRange> <text>11.0-15.6</text> </ observationRange> </referenceRange> </observation> </ component> <component> <observation moodCode="EVN" classCode="OBS"> <templateId root="216.840.1.839151.10..22.4.2" /> <id nullFlavor="NA" /> <code codeSystem="local" code="WBC" displayName= "WHITE BLOOD CELL" /> <statusCode code="completed" /> < effectiveTime value="781681894331" /> <value xsi:type="ST" value="<pre> <b>CBC W/DIFF</b> 6.64.729.932.067.821.030.922.6659620035.4NOTEDREVIEWED</ pre>" /> <referenceRange> <observationRange> < text>5.0-10.0</text> </observationRange> </referenceRange> </observation> </component> <component> <observation moodCode="EVN" classCode="OBS"> <templateId root= "216.840.1.900880.10...4.2" /> <id nullFlavor="NA" /> < code codeSystem="local" code="HGBT" displayName="HEMOGLOBIN" /> < statusCode code="completed" /> <effectiveTime value="909326623953" /> <value xsi:type="ST" value="<pre><b>CBC W/DIFF</b> 6.64.729.932.067.821.030.922.6780431353.4NOTEDREVIEWED</pre>" /> <interpretationCode codeSystem="local" code="*" /> <referenceRange> <observationRange> <text>12.0-16.0</text> </ observationRange> </referenceRange> </observation> </ component> <component> <observation moodCode="EVN" classCode="OBS"> <templateId root="216.840.1.249573.10..22.4.2" /> <id nullFlavor="NA" /> <code codeSystem="local" code="HCTT" displayName= "HEMATOCRIT" /> <statusCode code="completed" /> < effectiveTime value="850080730975" /> <value xsi:type="ST" value="<pre> <b>CBC W/DIFF</b> 6.64.729.932.067.821.030.922.2801480863..4NOTEDREVIEWED</ pre>" /> <interpretationCode codeSystem="local" code="*" /> < referenceRange> <observationRange> <text>37.0-47.0</text > </observationRange> </referenceRange> </observation > </component> <component> <observation moodCode="EVN" classCode="OBS"> <templateId root="2.16.840.1.657816.10..22.4.2" /> <id nullFlavor="NA" /> <code codeSystem="local" code="PLT" displayName="PLATELET COUNT" /> <statusCode code="completed" /> <effectiveTime value="331869195506" /> <value xsi:type="ST" value="< pre><b>CBC W/DIFF</b> 6.64.729.932.067.821.030.922.5245672417..4NOTEDREVIEWED</pre>" /> <referenceRange> <observationRange> <text>150-450</text > </observationRange> </referenceRange> </observation > </component> <component> <observation moodCode="EVN" classCode="OBS"> <templateId root="216.840.1.570160.10..22.4.2" /> <id nullFlavor="NA" /> <code codeSystem="local" code="MB" displayName="Microbiology" /> <statusCode code="completed" /> <effectiveTime value="570118223953" /> <value xsi:type="ST" value="<pre ><b>CBC W/DIFF</b> 6.64.729.932.067.821.030.922.4184563826.30.90.4NOTEDREVIEWED< /pre>" /> <referenceRange> <observationRange> < text /> </observationRange> </referenceRange> </ observation> </component> </organizer> </entry> <entry> <organizer moodCode="EVN" classCode="BATTERY"> <templateId root= "216.840.1.115445.10.20.22.4.1" /> <id nullFlavor="NA" /> <code codeSystem="local" code="METAB" displayName="METABOLIC PANEL, BASIC" /> < statusCode code="completed" /> <component> <observation moodCode= "EVN" classCode="OBS"> <templateId root="16.840.1.248727.10.20.22.4.2 " /> <id nullFlavor="NA" /> <code codeSystem="local" code="K" displayName="POTASSIUM" /> <statusCode code="completed" /> < effectiveTime value="481413970995" /> <value xsi:type="ST" value="<pre> <b>METABOLIC PANEL, BASIC</b> 1362.519409711960.8> 60> 609.5</pre>" /> <interpretationCode codeSystem="local" code="*" /> <referenceRange> <observationRange> <text>3.5-5.3</text> </ observationRange> </referenceRange> </observation> </ component> <component> <observation moodCode="EVN" classCode="OBS"> <templateId root="16.840.1.730447.10.20.22.4.2" /> <id nullFlavor="NA" /> <code codeSystem="local" code="eGFR" displayName= "EST GFR (MDRD)" /> <statusCode code="completed" /> < effectiveTime value="333920956401" /> <value xsi:type="ST" value="<pre> <b>METABOLIC PANEL, BASIC</b> 1362.103529660473.8> 60> 609.5</pre>" /> <referenceRange> <observationRange> <text>> 59</text > </observationRange> </referenceRange> </observation > </component> <component> <observation moodCode="EVN" classCode="OBS"> <templateId root="2.16.840.1.856519.10..22.4.2" /> <id nullFlavor="NA" /> <code codeSystem="local" code="GAP" displayName="ANION GAP" /> <statusCode code="completed" /> < effectiveTime value="207819963452" /> <value xsi:type="ST" value="<pre> <b>METABOLIC PANEL, BASIC</b> 1362.406822233458.8> 60> 609.5</pre>" /> <referenceRange> <observationRange> <text>5-15</text> </observationRange> </referenceRange> </observation> </component> <component> <observation moodCode="EVN" classCode= "OBS"> <templateId root="2.16.840.1.343563.10..22.4.2" /> < id nullFlavor="NA" /> <code codeSystem="local" code="eCrCl" displayName ="EST CrCl (CG)" /> <statusCode code="completed" /> < effectiveTime value="734277149850" /> <value xsi:type="ST" value="<pre> <b>METABOLIC PANEL, BASIC</b> 1362.715342003943.8> 60> 609.5</pre>" /> <referenceRange> <observationRange> <text>> 59</text > </observationRange> </referenceRange> </observation > </component> <component> <observation moodCode="EVN" classCode="OBS"> <templateId root="2.16.840.1.522836.10..22.4.2" /> <id nullFlavor="NA" /> <code codeSystem="local" code="GLU" displayName="GLUCOSE" /> <statusCode code="completed" /> < effectiveTime value="865245098504" /> <value xsi:type="ST" value="<pre> <b>METABOLIC PANEL, BASIC</b> 1362.712724105620.8> 60> 609.5</pre>" /> <referenceRange> <observationRange> <text>70-99</text> </observationRange> </referenceRange> </observation> </component> <component> <observation moodCode="EVN" classCode ="OBS"> <templateId root="216.840.1.344139.10...4.2" /> < id nullFlavor="NA" /> <code codeSystem="local" code="CA" displayName= "CALCIUM" /> <statusCode code="completed" /> <effectiveTime value="294215312531" /> <value xsi:type="ST" value="<pre><b>METABOLIC PANEL, BASIC</b> 1362.904082771504.8> 60> 609.5</pre>" /> < referenceRange> <observationRange> <text>8.5-10.1</text > </observationRange> </referenceRange> </observation > </component> <component> <observation moodCode="EVN" classCode="OBS"> <templateId root="2.16.840.1.959285.10..22.4.2" /> <id nullFlavor="NA" /> <code codeSystem="local" code="BUN" displayName="BLOOD UREA NITROGEN" /> <statusCode code="completed" /> <effectiveTime value="878399030498" /> <value xsi:type="ST" value="<pre><b>METABOLIC PANEL, BASIC</b> 1362.504973857158.8> 60> 609.5</pre>" /> <referenceRange> <observationRange> <text>7- 20</text> </observationRange> </referenceRange> </ observation> </component> <component> <observation moodCode= "EVN" classCode="OBS"> <templateId root="16.840.1.627699...4.2 " /> <id nullFlavor="NA" /> <code codeSystem="local" code= "CREAT" displayName="CREATININE" /> <statusCode code="completed" /> <effectiveTime value="077221955837" /> <value xsi:type="ST" value="<pre><b>METABOLIC PANEL, BASIC</b> 1362.761841068044.8> 60> 609.5</pre>" /> <referenceRange> <observationRange> <text> 0.6-1.0</text> </observationRange> </referenceRange> </observation> </component> <component> <observation moodCode= "EVN" classCode="OBS"> <templateId root="16.840.1.857880.10..22.4.2 " /> <id nullFlavor="NA" /> <code codeSystem="local" code="NA " displayName="SODIUM" /> <statusCode code="completed" /> < effectiveTime value="944570716452" /> <value xsi:type="ST" value="<pre> <b>METABOLIC PANEL, BASIC</b> 1362.326320377180.8> 60> 609.5</pre>" /> <referenceRange> <observationRange> <text>135-148</text > </observationRange> </referenceRange> </observation > </component> <component> <observation moodCode="EVN" classCode="OBS"> <templateId root="2.16.840.1.884974.10.20.22.4.2" /> <id nullFlavor="NA" /> <code codeSystem="local" code="CL" displayName="CHLORIDE" /> <statusCode code="completed" /> < effectiveTime value="583869309447" /> <value xsi:type="ST" value="<pre> <b>METABOLIC PANEL, BASIC</b> 1362.011692107316.8> 60> 609.5</pre>" /> <interpretationCode codeSystem="local" code="*" /> <referenceRange> <observationRange> <text>98-110</text> </ observationRange> </referenceRange> </observation> </ component> <component> <observation moodCode="EVN" classCode="OBS"> <templateId root="2.16.840.1.388596.10.20.22.4.2" /> <id nullFlavor="NA" /> <code codeSystem="local" code="CO2" displayName= "CARBON DIOXIDE" /> <statusCode code="completed" /> < effectiveTime value="488262877183" /> <value xsi:type="ST" value="<pre> <b>METABOLIC PANEL, BASIC</b> 1362.365166288220.8> 60> 609.5</pre>" /> <referenceRange> <observationRange> <text>21-32</text> </observationRange> </referenceRange> </observation> </component> <component> <observation moodCode="EVN" classCode ="OBS"> <templateId root="216.840.1.578673.10..22.4.2" /> < id nullFlavor="NA" /> <code codeSystem="local" code="MB" displayName= "Microbiology" /> <statusCode code="completed" /> < effectiveTime value="773503956756" /> <value xsi:type="ST" value="<pre> <b>METABOLIC PANEL, BASIC</b> 1362.369930870448.8> 60> 609.5</pre>" /> <referenceRange> <observationRange> <text /> </observationRange> </referenceRange> </observation> </ component> </organizer> </entry> <entry> <organizer moodCode="EVN" classCode="BATTERY"> <templateId root="216.840.1.467151.10..22.4.1" /> <id nullFlavor="NA" /> <code codeSystem="local" code="UA" displayName= "URINALYSIS, ROUTINE" /> <statusCode code="completed" /> <component> <observation moodCode="EVN" classCode="OBS"> <templateId root= "2.16.840.1.790874.10.20.22.4.2" /> <id nullFlavor="NA" /> < code codeSystem="local" code="LEUESU" displayName="UA LEUKOCYTE ESTERASE DIPSTICK" /> <statusCode code="completed" /> <effectiveTime value="478798713404" /> <value unit="" xsi:type="PQ" value="NEGATIVE" / > <referenceRange> <observationRange> <text> NEGATIVE</text> </observationRange> </referenceRange> </observation> </component> <component> <observation moodCode ="EVN" classCode="OBS"> <templateId root= "216.840.1.585211.10.22.4.2" /> <id nullFlavor="NA" /> < code codeSystem="local" code="NITRIU" displayName="UA NITRITE DIPSTICK" /> <statusCode code="completed" /> <effectiveTime value="941840505675 " /> <value unit="" xsi:type="PQ" value="NEGATIVE" /> < referenceRange> <observationRange> <text>NEGATIVE</text > </observationRange> </referenceRange> </observation > </component> <component> <observation moodCode="EVN" classCode="OBS"> <templateId root="216.840.1.190243.10..4.2" /> <id nullFlavor="NA" /> <code codeSystem="local" code="PROTEIU " displayName="UA PROTEIN DIPSTICK" /> <statusCode code="completed" /> <effectiveTime value="480406816710" /> <value unit="" xsi: type="PQ" value="NEGATIVE" /> <referenceRange> < observationRange> <text>NEGATIVE</text> </ observationRange> </referenceRange> </observation> </ component> <component> <observation moodCode="EVN" classCode="OBS"> <templateId root="16.840.1.396114...4.2" /> <id nullFlavor="NA" /> <code codeSystem="local" code="DGLUU" displayName= "UA GLUCOSE DIPSTICK" /> <statusCode code="completed" /> < effectiveTime value="605461260762" /> <value unit="" xsi:type="PQ" value="NEGATIVE" /> <referenceRange> <observationRange> <text>NEGATIVE</text> </observationRange> </ referenceRange> </observation> </component> <component> <observation moodCode="EVN" classCode="OBS"> <templateId root= "216.840.1.219896.10.22.4.2" /> <id nullFlavor="NA" /> < code codeSystem="local" code="KETONU" displayName="UA KETONE DIPSTICK" /> <statusCode code="completed" /> <effectiveTime value="819821302772 " /> <value unit="" xsi:type="PQ" value="2+" /> < interpretationCode codeSystem="local" code="*" /> <referenceRange> <observationRange> <text>NEGATIVE</text> </ observationRange> </referenceRange> </observation> </ component> <component> <observation moodCode="EVN" classCode="OBS"> <templateId root="06.27.840.1.513635.02.28.22.4.2" /> <id nullFlavor="NA" /> <code codeSystem="local" code="UROBILU" displayName= "UA UROBILINOGEN DIPSTICK" /> <statusCode code="completed" /> <effectiveTime value="453026922564" /> <value unit="" xsi:type="PQ" value="NORMAL" /> <referenceRange> <observationRange> <text>NORMAL</text> </observationRange> </ referenceRange> </observation> </component> <component> <observation moodCode="EVN" classCode="OBS"> <templateId root= "216.840.1.467297.10..22.4.2" /> <id nullFlavor="NA" /> < code codeSystem="local" code="BILU" displayName="UA BILIRUBIN DIPSTICK" /> <statusCode code="completed" /> <effectiveTime value="581860859161 " /> <value unit="" xsi:type="PQ" value="1+" /> < interpretationCode codeSystem="local" code="*" /> <referenceRange> <observationRange> <text>NEGATIVE</text> </ observationRange> </referenceRange> </observation> </ component> <component> <observation moodCode="EVN" classCode="OBS"> <templateId root="216.840.1.369847.1022.4.2" /> <id nullFlavor="NA" /> <code codeSystem="local" code="NOLVIA" displayName="UA BLOOD DIPSTICK" /> <statusCode code="completed" /> < effectiveTime value="144411625036" /> <value unit="" xsi:type="PQ" value="TRACE" /> <interpretationCode codeSystem="local" code="*" /> <referenceRange> <observationRange> <text> NEGATIVE</text> </observationRange> </referenceRange> </observation> </component> <component> <observation moodCode ="EVN" classCode="OBS"> <templateId root= "06.27.840.1.581169.02.28.22.4.2" /> <id nullFlavor="NA" /> < code codeSystem="local" code="SPGRU" displayName="UA SPECIFIC GRAVITY" /> <statusCode code="completed" /> <effectiveTime value="472669155056 " /> <value unit="" xsi:type="PQ" value="1.015" /> < referenceRange> <observationRange> <text>1.015-1.025</ text> </observationRange> </referenceRange> </ observation> </component> <component> <observation moodCode= "EVN" classCode="OBS"> <templateId root="16.840.1.122081..2022.4.2 " /> <id nullFlavor="NA" /> <code codeSystem="local" code="DIETER " displayName="UR PH" /> <statusCode code="completed" /> < effectiveTime value="693077722725" /> <value unit="" xsi:type="PQ" value="6.0" /> <referenceRange> <observationRange> <text>5.0-7.0</text> </observationRange> </ referenceRange> </observation> </component> <component> <observation moodCode="EVN" classCode="OBS"> <templateId root= "840.1.807132.10..4.2" /> <id nullFlavor="NA" /> < code codeSystem="local" code="MB" displayName="Microbiology" /> < statusCode code="completed" /> <effectiveTime value="719899981716" /> <value unit="" xsi:type="PQ" value="" /> <referenceRange> <observationRange> <text /> </observationRange> </referenceRange> </observation> </component> </ organizer> </entry> <entry> <organizer moodCode="EVN" classCode="BATTERY"> <templateId root="06.27.840.1.524157.02.28.22.4.1" /> <id nullFlavor= "NA" /> <code codeSystem="local" code="UAMICRO" displayName="UA MICROSCOPIC " /> <statusCode code="completed" /> <component> <observation moodCode="EVN" classCode="OBS"> <templateId root= "06.27.840.1.823250.02.28.22.4.2" /> <id nullFlavor="NA" /> < code codeSystem="local" code="BACU" displayName="UA BACTERIA" /> < statusCode code="completed" /> <effectiveTime value="531623930501" /> <value unit="" xsi:type="PQ" value="2+" /> < interpretationCode codeSystem="local" code="*" /> <referenceRange> <observationRange> <text>NEGATIVE</text> </ observationRange> </referenceRange> </observation> </ component> <component> <observation moodCode="EVN" classCode="OBS"> <templateId root="16.840.1.933318.02.28.22.4.2" /> <id nullFlavor="NA" /> <code codeSystem="local" code="EPIU" displayName=" UA EPITHELIAL CELLS" /> <statusCode code="completed" /> < effectiveTime value="151173364387" /> <value unit="epi/hpf" xsi:type= "PQ" value="2+" /> <interpretationCode codeSystem="local" code="*" /> <referenceRange> <observationRange> <text>0 - 1 +</text> </observationRange> </referenceRange> </ observation> </component> <component> <observation moodCode= "EVN" classCode="OBS"> <templateId root="16.840.1.659193.02.28.22.4.2 " /> <id nullFlavor="NA" /> <code codeSystem="local" code= "MUCUSU" displayName="UA MUCUS" /> <statusCode code="completed" /> <effectiveTime value="540329813502" /> <value unit="" xsi:type= "PQ" value="3+" /> <interpretationCode codeSystem="local" code="*" /> <referenceRange> <observationRange> <text>NEG TO 1+</text> </observationRange> </referenceRange> </ observation> </component> <component> <observation moodCode= "EVN" classCode="OBS"> <templateId root="16.840.1.458231.22.4.2 " /> <id nullFlavor="NA" /> <code codeSystem="local" code= "RBCU" displayName="UA RBC" /> <statusCode code="completed" /> <effectiveTime value="073986651173" /> <value unit="rbc/hpf" xsi:type ="PQ" value="0-3" /> <referenceRange> <observationRange> <text>0 - 3</text> </observationRange> </ referenceRange> </observation> </component> <component> <observation moodCode="EVN" classCode="OBS"> <templateId root= "2.16.840.1.804141.02.28.22.4.2" /> <id nullFlavor="NA" /> < code codeSystem="local" code="UAVOL" displayName="UA VOLUME FOR EXAM" /> <statusCode code="completed" /> <effectiveTime value="277366781065" /> <value unit="mL" xsi:type="PQ" value="12.0" /> < referenceRange> <observationRange> <text>(12mL STD)</ text> </observationRange> </referenceRange> </ observation> </component> <component> <observation moodCode= "EVN" classCode="OBS"> <templateId root="2.16.840.1.083234.02.28.22.4.2 " /> <id nullFlavor="NA" /> <code codeSystem="local" code= "WBCU" displayName="UA WBC" /> <statusCode code="completed" /> <effectiveTime value="032601106875" /> <value unit="wbc/hpf" xsi:type ="PQ" value="0-1" /> <referenceRange> <observationRange> <text>0 - 5</text> </observationRange> </ referenceRange> </observation> </component> </organizer> </entry > <entry> <organizer moodCode="EVN" classCode="BATTERY"> <templateId root="2.16.840.1.651175.10.20.22.4.1" /> <id nullFlavor="NA" /> <code codeSystem="local" code="PREGU" displayName="UR TEST" /> < statusCode code="completed" /> <component> <observation moodCode= "EVN" classCode="OBS"> <templateId root="2.16.840.1.599732.10.20.22.4.2 " /> <id nullFlavor="NA" /> <code codeSystem="local" code= "PREGU" displayName="UR TEST" /> <statusCode code="completed " /> <effectiveTime value="761886348482" /> <value xsi:type= "ST" value="<pre><b>UR TEST</b> NEGATIVE</pre>" /> < referenceRange> <observationRange> <text>NEGATIVE</text > </observationRange> </referenceRange> </observation > </component> <component> <observation moodCode="EVN" classCode="OBS"> <templateId root="[id number]" /> <id nullFlavor="NA" /> <code codeSystem="local" code="MB" displayName="Microbiology" /> <statusCode code="completed" /> <effectiveTime value="[id number]" /> <value xsi:type="ST" value="<pre ><b>UR TEST</b> NEGATIVE</pre>" /> <referenceRange> <observationRange> <text /> </observationRange> </referenceRange> </observation> </component> </organizer> </entry> <entry> <organizer moodCode="EVN" classCode="BATTERY"> < templateId root="[id number]..[id number]" /> <id nullFlavor="NA" /> <code codeSystem="local" code="CBCD" displayName="CBC W/DIFF" /> < statusCode code="completed" /> <component> <observation moodCode= "EVN" classCode="OBS"> <templateId root="[id number] " /> <id nullFlavor="NA" /> <code codeSystem="local" code="BA# " displayName="BASOPHIL #" /> <statusCode code="completed" /> <effectiveTime value="556612935912" /> <value unit="k/cumm" xsi:type= "PQ" value="0.0" /> <referenceRange> <observationRange> <text>0.0-0.2</text> </observationRange> </ referenceRange> </observation> </component> <component> <observation moodCode="EVN" classCode="OBS"> <templateId root= "06.27.840.1.529443.02.28.22.4.2" /> <id nullFlavor="NA" /> < code codeSystem="local" code="BA%" displayName="BASOPHIL %" /> <statusCode code="completed" /> <effectiveTime value="009723671381" /> <value unit="%" xsi:type="PQ" value="1" /> < referenceRange> <observationRange> <text>0-1</text> </observationRange> </referenceRange> </observation> </component> <component> <observation moodCode="EVN" classCode= "OBS"> <templateId root="06.27.840.1.145989.02.28.22.4.2" /> < id nullFlavor="NA" /> <code codeSystem="local" code="EO#" displayName= "EOSINOPHIL #" /> <statusCode code="completed" /> < effectiveTime value="910871238716" /> <value unit="k/cumm" xsi:type="PQ " value="0.1" /> <referenceRange> <observationRange> <text>0.1-0.5</text> </observationRange> </ referenceRange> </observation> </component> <component> <observation moodCode="EVN" classCode="OBS"> <templateId root= "2.16.840.1.594070.02.28.224.2" /> <id nullFlavor="NA" /> < code codeSystem="local" code="EO%" displayName="EOSINOPHIL %" /> <statusCode code="completed" /> <effectiveTime value="097455942597" /> <value unit="%" xsi:type="PQ" value="1" /> < interpretationCode codeSystem="local" code="*" /> <referenceRange> <observationRange> <text>2-4</text> </ observationRange> </referenceRange> </observation> </ component> <component> <observation moodCode="EVN" classCode="OBS"> <templateId root="216.840.1.071558.104.2" /> <id nullFlavor="NA" /> <code codeSystem="local" code="GR#" displayName= "GRANULOCYTE #" /> <statusCode code="completed" /> < effectiveTime value="996439405294" /> <value unit="k/cumm" xsi:type="PQ " value="3.0" /> <referenceRange> <observationRange> <text>2.0-9.0</text> </observationRange> </ referenceRange> </observation> </component> <component> <observation moodCode="EVN" classCode="OBS"> <templateId root= "216.840.1.845997.1022.4.2" /> <id nullFlavor="NA" /> < code codeSystem="local" code="GR%" displayName="GRANULOCYTE %" /> <statusCode code="completed" /> <effectiveTime value="205332476628 " /> <value unit="%" xsi:type="PQ" value="57" /> < referenceRange> <observationRange> <text>50-75</text> </observationRange> </referenceRange> </observation> </component> <component> <observation moodCode="EVN" classCode= "OBS"> <templateId root="2.840.1.165702.02.28.22.4.2" /> < id nullFlavor="NA" /> <code codeSystem="local" code="LY#" displayName= "LYMPHOCYTE #" /> <statusCode code="completed" /> < effectiveTime value="236286756081" /> <value unit="k/cumm" xsi:type="PQ " value="1.8" /> <referenceRange> <observationRange> <text>1.0-4.0</text> </observationRange> </ referenceRange> </observation> </component> <component> <observation moodCode="EVN" classCode="OBS"> <templateId root= "216.840.1.055048.10.4.2" /> <id nullFlavor="NA" /> < code codeSystem="local" code="LY%" displayName="LYMPHOCYTE %" /> <statusCode code="completed" /> <effectiveTime value="281457300836" /> <value unit="%" xsi:type="PQ" value="34" /> < interpretationCode codeSystem="local" code="*" /> <referenceRange> <observationRange> <text>20-30</text> </ observationRange> </referenceRange> </observation> </ component> <component> <observation moodCode="EVN" classCode="OBS"> <templateId root="2.16.840.1.878276.10.22.4.2" /> <id nullFlavor="NA" /> <code codeSystem="local" code="MCH" displayName= "MEAN CELL HGB" /> <statusCode code="completed" /> < effectiveTime value="580947326774" /> <value unit="pg" xsi:type="PQ" value="20.4" /> <interpretationCode codeSystem="local" code="*" /> <referenceRange> <observationRange> <text>27.0- 33.0</text> </observationRange> </referenceRange> </ observation> </component> <component> <observation moodCode= "EVN" classCode="OBS"> <templateId root="2.16.840.1.254074.10..22.4.2 " /> <id nullFlavor="NA" /> <code codeSystem="local" code= "MCHC" displayName="MEAN CELL HGB CONCENTRATION" /> <statusCode code= "completed" /> <effectiveTime value="250413118518" /> <value unit="g/dL" xsi:type="PQ" value="30.3" /> <interpretationCode codeSystem="local" code="*" /> <referenceRange> < observationRange> <text>32.0-37.0</text> </ observationRange> </referenceRange> </observation> </ component> <component> <observation moodCode="EVN" classCode="OBS"> <templateId root="06.27.840.1.257529.10.2022.4.2" /> <id nullFlavor="NA" /> <code codeSystem="local" code="MCV" displayName= "MEAN CELL VOLUME" /> <statusCode code="completed" /> < effectiveTime value="555609734535" /> <value unit="fl" xsi:type="PQ" value="67.4" /> <interpretationCode codeSystem="local" code="*" /> <referenceRange> <observationRange> <text>80.0- 100.0</text> </observationRange> </referenceRange> </ observation> </component> <component> <observation moodCode= "EVN" classCode="OBS"> <templateId root="840.1.390282.10.4.2 " /> <id nullFlavor="NA" /> <code codeSystem="local" code="MO# " displayName="MONOCYTE #" /> <statusCode code="completed" /> <effectiveTime value="" /> <value unit="k/cumm" xsi:type= "PQ" value="0.4" /> <referenceRange> <observationRange> <text>0.1-1.0</text> </observationRange> </ referenceRange> </observation> </component> <component> <observation moodCode="EVN" classCode="OBS"> <templateId root= "06.27.840.1.402317.10.2022.4.2" /> <id nullFlavor="NA" /> < code codeSystem="local" code="MO%" displayName="MONOCYTE %" /> <statusCode code="completed" /> <effectiveTime value="" /> <value unit="%" xsi:type="PQ" value="7" /> < interpretationCode codeSystem="local" code="*" /> <referenceRange> <observationRange> <text>4-6</text> </ observationRange> </referenceRange> </observation> </ component> <component> <observation moodCode="EVN" classCode="OBS"> <templateId root="16.840.1.567453.10..22.4.2" /> <id nullFlavor="NA" /> <code codeSystem="local" code="OVAL" displayName= "OVALOCYTES" /> <statusCode code="completed" /> < effectiveTime value="014019881676" /> <value unit="" xsi:type="PQ" value="NOTED" /> <referenceRange> <observationRange> <text /> </observationRange> </referenceRange> </observation> </component> <component> <observation moodCode ="EVN" classCode="OBS"> <templateId root= "840.1.632638.10..22.4.2" /> <id nullFlavor="NA" /> < code codeSystem="local" code="RBC" displayName="RED BLOOD CELL" /> < statusCode code="completed" /> <effectiveTime value="277214565473" /> <value unit="m/cumm" xsi:type="PQ" value="3.77" /> < interpretationCode codeSystem="local" code="*" /> <referenceRange> <observationRange> <text>4.00-6.00</text> </ observationRange> </referenceRange> </observation> </ component> <component> <observation moodCode="EVN" classCode="OBS"> <templateId root="06.27.840.1.472158.10.20.22.4.2" /> <id nullFlavor="NA" /> <code codeSystem="local" code="RDW" displayName=" RED CELL DISTRIBUTION WIDTH" /> <statusCode code="completed" /> <effectiveTime value="699338684844" /> <value unit="%" xsi:type= "PQ" value="22.0" /> <interpretationCode codeSystem="local" code="*" / > <referenceRange> <observationRange> <text> 11.0-15.6</text> </observationRange> </referenceRange> </observation> </component> <component> <observation moodCode="EVN" classCode="OBS"> <templateId root= "216.840.1.144651.02.28.22.4.2" /> <id nullFlavor="NA" /> < code codeSystem="local" code="WBC" displayName="WHITE BLOOD CELL" /> < statusCode code="completed" /> <effectiveTime value="813209243445" /> <value unit="k/cumm" xsi:type="PQ" value="5.3" /> < referenceRange> <observationRange> <text>5.0-10.0</text > </observationRange> </referenceRange> </observation > </component> <component> <observation moodCode="EVN" classCode="OBS"> <templateId root="216.840.1.140563....4.2" /> <id nullFlavor="NA" /> <code codeSystem="local" code="HGBT" displayName="HEMOGLOBIN" /> <statusCode code="completed" /> < effectiveTime value="259241505156" /> <value unit="gm/dL" xsi:type="PQ " value="7.7" /> <interpretationCode codeSystem="local" code="*" /> <referenceRange> <observationRange> <text>12.0- 16.0</text> </observationRange> </referenceRange> </ observation> </component> <component> <observation moodCode= "EVN" classCode="OBS"> <templateId root="216.840.1.258159.10...4.2 " /> <id nullFlavor="NA" /> <code codeSystem="local" code= "HCTT" displayName="HEMATOCRIT" /> <statusCode code="completed" /> <effectiveTime value="816001461341" /> <value unit="%" xsi: type="PQ" value="25.4" /> <interpretationCode codeSystem="local" code= "*" /> <referenceRange> <observationRange> < text>37.0-47.0</text> </observationRange> </referenceRange> </observation> </component> <component> <observation moodCode="EVN" classCode="OBS"> <templateId root= "16.840.1.590051.02.28.22.4.2" /> <id nullFlavor="NA" /> < code codeSystem="local" code="PLT" displayName="PLATELET COUNT" /> < statusCode code="completed" /> <effectiveTime value="898436384552" /> <value unit="k/cumm" xsi:type="PQ" value="284" /> < referenceRange> <observationRange> <text>150-400</text> </observationRange> </referenceRange> </observation > </component> <component> <observation moodCode="EVN" classCode="OBS"> <templateId root="216.840.1.289103.10..4.2" /> <id nullFlavor="NA" /> <code codeSystem="local" code="MB" displayName="Microbiology" /> <statusCode code="completed" /> <effectiveTime value="160869423531" /> <value unit="" xsi:type="PQ" value="" /> <referenceRange> <observationRange> <text /> </observationRange> </referenceRange> </ observation> </component> </organizer> </entry> <entry> <organizer moodCode="EVN" classCode="BATTERY"> <templateId root= "216.840.1.498951.10..22.4.1" /> <id nullFlavor="NA" /> <code codeSystem="local" code="PREG" displayName=" TEST, SERUM" /> < statusCode code="completed" /> <component> <observation moodCode= "EVN" classCode="OBS"> <templateId root="216.840.1.626122.10...4.2 " /> <id nullFlavor="NA" /> <code codeSystem="local" code= "PREG" displayName=" TEST, SERUM" /> <statusCode code= "completed" /> <effectiveTime value="131435742386" /> <value xsi:type="ST" value="<pre><b> TEST, SERUM</b> NEGATIVE</pre>" /> <referenceRange> <observationRange> <text>NEGATIVE</ text> </observationRange> </referenceRange> </ observation> </component> <component> <observation moodCode= "EVN" classCode="OBS"> <templateId root="06.27.840.1.596041.10..22.4.2 " /> <id nullFlavor="NA" /> <code codeSystem="local" code="MB " displayName="Microbiology" /> <statusCode code="completed" /> <effectiveTime value="320742177188" /> <value xsi:type="ST" value="< pre><b> TEST, SERUM</b> NEGATIVE</pre>" /> <referenceRange> <observationRange> <text /> </observationRange > </referenceRange> </observation> </component> </ organizer> </entry> <entry> <organizer moodCode="EVN" classCode="BATTERY"> <templateId root="216.840.1.539236.10..22.4.1" /> <id nullFlavor= "NA" /> <code codeSystem="local" code="METABC" displayName="METABOLIC PANEL , COMPREHN" /> <statusCode code="completed" /> <component> < observation moodCode="EVN" classCode="OBS"> <templateId root= "2.840.1.148107...4.2" /> <id nullFlavor="NA" /> < code codeSystem="local" code="K" displayName="POTASSIUM" /> < statusCode code="completed" /> <effectiveTime value="921205794429" /> <value unit="mmol/L" xsi:type="PQ" value="3.5" /> < referenceRange> <observationRange> <text>3.5-5.3</text> </observationRange> </referenceRange> </observation > </component> <component> <observation moodCode="EVN" classCode="OBS"> <templateId root="16.840.1.599609....4.2" /> <id nullFlavor="NA" /> <code codeSystem="local" code="eGFR" displayName="EST GFR (MDRD)" /> <statusCode code="completed" /> <effectiveTime value="871620339627" /> <value unit="mL/min" xsi:type ="PQ" value="> 60" /> <referenceRange> <observationRange > <text>> 59</text> </observationRange> </ referenceRange> </observation> </component> <component> <observation moodCode="EVN" classCode="OBS"> <templateId root= "216.840.1.209175.10..22.4.2" /> <id nullFlavor="NA" /> < code codeSystem="local" code="GAP" displayName="ANION GAP" /> < statusCode code="completed" /> <effectiveTime value="934650548873" /> <value unit="mmol/L" xsi:type="PQ" value="8" /> < referenceRange> <observationRange> <text>5-15</text> </observationRange> </referenceRange> </observation> </component> <component> <observation moodCode="EVN" classCode= "OBS"> <templateId root="06.27.840.1.425684.10...4.2" /> < id nullFlavor="NA" /> <code codeSystem="local" code="eCrCl" displayName ="EST CrCl (CG)" /> <statusCode code="completed" /> < effectiveTime value="545585440792" /> <value unit="mL/min" xsi:type="PQ " value="> 60" /> <referenceRange> <observationRange> <text>> 59</text> </observationRange> </ referenceRange> </observation> </component> <component> <observation moodCode="EVN" classCode="OBS"> <templateId root= "06.27.840.1.798265.10...4.2" /> <id nullFlavor="NA" /> < code codeSystem="local" code="GLU" displayName="GLUCOSE" /> < statusCode code="completed" /> <effectiveTime value="457371474504" /> <value unit="mg/dL" xsi:type="PQ" value="79" /> < referenceRange> <observationRange> <text>70-99</text> </observationRange> </referenceRange> </observation> </component> <component> <observation moodCode="EVN" classCode= "OBS"> <templateId root="216.840.1.523579.10..22.4.2" /> < id nullFlavor="NA" /> <code codeSystem="local" code="CA" displayName= "CALCIUM" /> <statusCode code="completed" /> <effectiveTime value="858554785662" /> <value unit="mg/dL" xsi:type="PQ" value="8.6" / > <referenceRange> <observationRange> <text>8.5 -10.1</text> </observationRange> </referenceRange> </ observation> </component> <component> <observation moodCode= "EVN" classCode="OBS"> <templateId root="06.27.840.1.835665.02.28.22.4.2 " /> <id nullFlavor="NA" /> <code codeSystem="local" code="BUN " displayName="BLOOD UREA NITROGEN" /> <statusCode code="completed" /> <effectiveTime value="806516208542" /> <value unit="mg/dL" xsi:type="PQ" value="9" /> <referenceRange> < observationRange> <text>7-20</text> </observationRange> </referenceRange> </observation> </component> < component> <observation moodCode="EVN" classCode="OBS"> < templateId root="06.27.840.1.610818.10..22.4.2" /> <id nullFlavor="NA " /> <code codeSystem="local" code="CREAT" displayName="CREATININE" /> <statusCode code="completed" /> <effectiveTime value= "527923929982" /> <value unit="mg/dL" xsi:type="PQ" value="0.6" /> <referenceRange> <observationRange> <text>0.6-1.0< /text> </observationRange> </referenceRange> </ observation> </component> <component> <observation moodCode= "EVN" classCode="OBS"> <templateId root="216.840.1.601361.10..22.4.2 " /> <id nullFlavor="NA" /> <code codeSystem="local" code="NA " displayName="SODIUM" /> <statusCode code="completed" /> < effectiveTime value="955859904735" /> <value unit="mmol/L" xsi:type="PQ " value="139" /> <referenceRange> <observationRange> <text>135-148</text> </observationRange> </ referenceRange> </observation> </component> <component> <observation moodCode="EVN" classCode="OBS"> <templateId root= "06.27.840.1.117439.10..4.2" /> <id nullFlavor="NA" /> < code codeSystem="local" code="CL" displayName="CHLORIDE" /> < statusCode code="completed" /> <effectiveTime value="204712158417" /> <value unit="mmol/L" xsi:type="PQ" value="101" /> < referenceRange> <observationRange> <text>98-110</text> </observationRange> </referenceRange> </observation> </component> <component> <observation moodCode="EVN" classCode ="OBS"> <templateId root="06.27.840.1.113118.10.20.22.4.2" /> < id nullFlavor="NA" /> <code codeSystem="local" code="AST" displayName= "AST/SGOT" /> <statusCode code="completed" /> <effectiveTime value="923188016000" /> <value unit="Units/L" xsi:type="PQ" value="38" /> <interpretationCode codeSystem="local" code="*" /> < referenceRange> <observationRange> <text>10-37</text> </observationRange> </referenceRange> </observation> </component> <component> <observation moodCode="EVN" classCode= "OBS"> <templateId root="216.840.1.420436.10.20.22.4.2" /> < id nullFlavor="NA" /> <code codeSystem="local" code="ALT" displayName= "ALT/SGPT" /> <statusCode code="completed" /> <effectiveTime value="276303781852" /> <value unit="Units/L" xsi:type="PQ" value="67" /> <interpretationCode codeSystem="local" code="*" /> < referenceRange> <observationRange> <text>< 66</text> </observationRange> </referenceRange> </observation > </component> <component> <observation moodCode="EVN" classCode="OBS"> <templateId root="216.840.1.534072.10.20.22.4.2" /> <id nullFlavor="NA" /> <code codeSystem="local" code="CO2" displayName="CARBON DIOXIDE" /> <statusCode code="completed" /> <effectiveTime value="418505938088" /> <value unit="mmol/L" xsi:type ="PQ" value="30" /> <referenceRange> <observationRange> <text>21-32</text> </observationRange> </ referenceRange> </observation> </component> <component> <observation moodCode="EVN" classCode="OBS"> <templateId root= "06.27.840.1.221402.10.2022.4.2" /> <id nullFlavor="NA" /> < code codeSystem="local" code="TP" displayName="TOTAL PROTEIN" /> < statusCode code="completed" /> <effectiveTime value="412292147983" /> <value unit="gm/dL" xsi:type="PQ" value="6.7" /> < referenceRange> <observationRange> <text>6.4-8.2</text> </observationRange> </referenceRange> </observation > </component> <component> <observation moodCode="EVN" classCode="OBS"> <templateId root="06.27.840.1.072079.1022.4.2" /> <id nullFlavor="NA" /> <code codeSystem="local" code="ALB" displayName="ALBUMIN" /> <statusCode code="completed" /> < effectiveTime value="063182819526" /> <value unit="gm/dL" xsi:type="PQ " value="2.9" /> <interpretationCode codeSystem="local" code="*" /> <referenceRange> <observationRange> <text>3.4-5.0 </text> </observationRange> </referenceRange> </ observation> </component> <component> <observation moodCode= "EVN" classCode="OBS"> <templateId root="06.27.840.1.634383.10.2022.4.2 " /> <id nullFlavor="NA" /> <code codeSystem="local" code= "BILTOT" displayName="BILI TOTAL" /> <statusCode code="completed" /> <effectiveTime value="929921702346" /> <value unit="mg/dL" xsi: type="PQ" value="0.3" /> <referenceRange> <observationRange > <text>0.0-1.0</text> </observationRange> </ referenceRange> </observation> </component> <component> <observation moodCode="EVN" classCode="OBS"> <templateId root= "16.840.1.990768.10..22.4.2" /> <id nullFlavor="NA" /> < code codeSystem="local" code="ALKP" displayName="ALKALINE PHOSPHATASE TOTAL" /> <statusCode code="completed" /> <effectiveTime value= "052275412809" /> <value unit="IU/L" xsi:type="PQ" value="149" /> <interpretationCode codeSystem="local" code="*" /> <referenceRange > <observationRange> <text>45-117</text> </ observationRange> </referenceRange> </observation> </ component> <component> <observation moodCode="EVN" classCode="OBS"> <templateId root="06.27.840.1.504837.10..4.2" /> <id nullFlavor="NA" /> <code codeSystem="local" code="MB" displayName= "Microbiology" /> <statusCode code="completed" /> < effectiveTime value="320819504684" /> <value unit="" xsi:type="PQ" value="" /> <referenceRange> <observationRange> <text /> </observationRange> </referenceRange> </ observation> </component> </organizer> </entry> <entry> <organizer moodCode="EVN" classCode="BATTERY"> <templateId root= "06.27.840.1.587228.10..22.4.1" /> <id nullFlavor="NA" /> <code codeSystem="local" code="MAG" displayName="MAGNESIUM" /> <statusCode code= "completed" /> <component> <observation moodCode="EVN" classCode= "OBS"> <templateId root="2.16.840.1.510873.10..22.4.2" /> < id nullFlavor="NA" /> <code codeSystem="local" code="MAG" displayName= "MAGNESIUM" /> <statusCode code="completed" /> <effectiveTime value="763917114988" /> <value unit="mg/dL" xsi:type="PQ" value="1.8" / > <referenceRange> <observationRange> <text>1.8 -2.4</text> </observationRange> </referenceRange> </ observation> </component> </organizer> </entry> <entry> <organizer moodCode="EVN" classCode="BATTERY"> <templateId root= "2.16.840.1.086728.10..22.4.1" /> <id nullFlavor="NA" /> <code codeSystem="local" code="LIP" displayName="LIPASE" /> <statusCode code= "completed" /> <component> <observation moodCode="EVN" classCode= "OBS"> <templateId root="2.16.840.1.080844.10.20.22.4.2" /> < id nullFlavor="NA" /> <code codeSystem="local" code="LIP" displayName= "LIPASE" /> <statusCode code="completed" /> <effectiveTime value="218110508089" /> <value unit="Units/L" xsi:type="PQ" value="123 " /> <referenceRange> <observationRange> <text> 73-393</text> </observationRange> </referenceRange> < /observation> </component> </organizer> </entry> <entry> < organizer moodCode="EVN" classCode="BATTERY"> <templateId root= "2.16.840.1.417043.10.22.4.1" /> <id nullFlavor="NA" /> <code codeSystem="local" code="iCHEM8" displayName="CHEM/HEM PROFILE-BEDSIDE" /> <statusCode code="completed" /> <component> <observation moodCode= "EVN" classCode="OBS"> <templateId root="840.1.629046.22.4.2 " /> <id nullFlavor="NA" /> <code codeSystem="local" code="K" displayName="POTASSIUM" /> <statusCode code="completed" /> < effectiveTime value="967160213494" /> <value unit="mmol/L" xsi:type="PQ " value="3.4" /> <interpretationCode codeSystem="local" code="*" /> <referenceRange> <observationRange> <text>3.5-5.3 </text> </observationRange> </referenceRange> </ observation> </component> <component> <observation moodCode= "EVN" classCode="OBS"> <templateId root="06.27.840.1.616516.02.28.22.4.2 " /> <id nullFlavor="NA" /> <code codeSystem="local" code= "CMETHOD" displayName="METHOD" /> <statusCode code="completed" /> <effectiveTime value="532715481395" /> <value unit="" xsi:type="PQ " value="Bedside" /> <referenceRange> <observationRange> <text /> </observationRange> </referenceRange> </observation> </component> <component> <observation moodCode="EVN" classCode="OBS"> <templateId root= "06.27.840.1.614814.22.4.2" /> <id nullFlavor="NA" /> < code codeSystem="local" code="GAP" displayName="ANION GAP" /> < statusCode code="completed" /> <effectiveTime value="704997414951" /> <value unit="mmol/L" xsi:type="PQ" value="17" /> < referenceRange> <observationRange> <text>10-20</text> </observationRange> </referenceRange> </observation> </component> <component> <observation moodCode="EVN" classCode= "OBS"> <templateId root="06.27.840.1.333155.10.2022.4.2" /> < id nullFlavor="NA" /> <code codeSystem="local" code="HMETHOD" displayName="METHOD" /> <statusCode code="completed" /> < effectiveTime value="891248154468" /> <value unit="" xsi:type="PQ" value="Bedside" /> <referenceRange> <observationRange> <text /> </observationRange> </referenceRange> </observation> </component> <component> <observation moodCode="EVN" classCode="OBS"> <templateId root= "06.27.840.1.828720..22.4.2" /> <id nullFlavor="NA" /> < code codeSystem="local" code="GLU" displayName="GLUCOSE" /> < statusCode code="completed" /> <effectiveTime value="044106806034" /> <value unit="mg/dL" xsi:type="PQ" value="77" /> < referenceRange> <observationRange> <text>70-99</text> </observationRange> </referenceRange> </observation> </component> <component> <observation moodCode="EVN" classCode= "OBS"> <templateId root="06.27.840.1.862563.02.28.224.2" /> < id nullFlavor="NA" /> <code codeSystem="local" code="BUN" displayName= "BLOOD UREA NITROGEN" /> <statusCode code="completed" /> < effectiveTime value="329192496140" /> <value unit="mg/dL" xsi:type="PQ " value="5" /> <interpretationCode codeSystem="local" code="*" /> <referenceRange> <observationRange> <text>7-20</ text> </observationRange> </referenceRange> </ observation> </component> <component> <observation moodCode= "EVN" classCode="OBS"> <templateId root="2.16.840.1.425313.02.28.224.2 " /> <id nullFlavor="NA" /> <code codeSystem="local" code= "CREAT" displayName="CREATININE" /> <statusCode code="completed" /> <effectiveTime value="156390691060" /> <value unit="mg/dL" xsi: type="PQ" value="0.6" /> <referenceRange> <observationRange > <text>0.6-1.0</text> </observationRange> </ referenceRange> </observation> </component> <component> <observation moodCode="EVN" classCode="OBS"> <templateId root= "2.16.840.1.819473.02.28.22.4.2" /> <id nullFlavor="NA" /> < code codeSystem="local" code="HGBT" displayName="HEMOGLOBIN" /> < statusCode code="completed" /> <effectiveTime value="628562770800" /> <value unit="gm/dL" xsi:type="PQ" value="8.5" /> < interpretationCode codeSystem="local" code="*" /> <referenceRange> <observationRange> <text>12.0-16.0</text> </ observationRange> </referenceRange> </observation> </ component> <component> <observation moodCode="EVN" classCode="OBS"> <templateId root="2.16.840.1.284422.10.2022.4.2" /> <id nullFlavor="NA" /> <code codeSystem="local" code="HCTT" displayName= "HEMATOCRIT" /> <statusCode code="completed" /> < effectiveTime value="901673128443" /> <value unit="%" xsi:type="PQ " value="25.0" /> <interpretationCode codeSystem="local" code="*" /> <referenceRange> <observationRange> <text>37.0- 47.0</text> </observationRange> </referenceRange> </ observation> </component> <component> <observation moodCode= "EVN" classCode="OBS"> <templateId root="216.840.1.281902.10..4.2 " /> <id nullFlavor="NA" /> <code codeSystem="local" code="NA " displayName="SODIUM" /> <statusCode code="completed" /> < effectiveTime value="822826666028" /> <value unit="mmol/L" xsi:type="PQ " value="138" /> <referenceRange> <observationRange> <text>135-148</text> </observationRange> </ referenceRange> </observation> </component> <component> <observation moodCode="EVN" classCode="OBS"> <templateId root= "216.840.1.944609.10.2022.4.2" /> <id nullFlavor="NA" /> < code codeSystem="local" code="CL" displayName="CHLORIDE" /> < statusCode code="completed" /> <effectiveTime value="185723817108" /> <value unit="mmol/L" xsi:type="PQ" value="100" /> < referenceRange> <observationRange> <text>98-110</text> </observationRange> </referenceRange> </observation> </component> <component> <observation moodCode="EVN" classCode ="OBS"> <templateId root="16.840.1.673561.10..22.4.2" /> < id nullFlavor="NA" /> <code codeSystem="local" code="CO2" displayName= "CARBON DIOXIDE" /> <statusCode code="completed" /> < effectiveTime value="703866723615" /> <value unit="mmol/L" xsi:type="PQ " value="25" /> <referenceRange> <observationRange> <text>21-32</text> </observationRange> </ referenceRange> </observation> </component> <component> <observation moodCode="EVN" classCode="OBS"> <templateId root= "840.1.160147.10.22.4.2" /> <id nullFlavor="NA" /> < code codeSystem="local" code="CAION" displayName="CALCIUM IONIZED" /> < statusCode code="completed" /> <effectiveTime value="742724345374" /> <value unit="mg/dL" xsi:type="PQ" value="4.7" /> < referenceRange> <observationRange> <text>4.5-5.3</text> </observationRange> </referenceRange> </observation > </component> <component> <observation moodCode="EVN" classCode="OBS"> <templateId root="16.840.1.236200.10.20.22.4.2" /> <id nullFlavor="NA" /> <code codeSystem="local" code="MB" displayName="Microbiology" /> <statusCode code="completed" /> <effectiveTime value="675340341187" /> <value unit="" xsi:type="PQ" value="" /> <referenceRange> <observationRange> <text /> </observationRange> </referenceRange> </ observation> </component> </organizer> </entry> <entry> <organizer moodCode="EVN" classCode="BATTERY"> <templateId root= "216.840.1.368513.10..22.4.1" /> <id nullFlavor="NA" /> <code codeSystem="local" code="UANRC" displayName="URINALYSIS, NO REFLEX CULTURE" /> <statusCode code="completed" /> <component> <observation moodCode="EVN" classCode="OBS"> <templateId root= "216.840.1.018465.10...4.2" /> <id nullFlavor="NA" /> < code codeSystem="local" code="LEUESU" displayName="UA LEUKOCYTE ESTERASE DIPSTICK" /> <statusCode code="completed" /> <effectiveTime value="735307398227" /> <value unit="" xsi:type="PQ" value="2+" /> <interpretationCode codeSystem="local" code="*" /> < referenceRange> <observationRange> <text>NEGATIVE</text > </observationRange> </referenceRange> </observation > </component> <component> <observation moodCode="EVN" classCode="OBS"> <templateId root="216.840.1.180420.10..4.2" /> <id nullFlavor="NA" /> <code codeSystem="local" code="NITRIU" displayName="UA NITRITE DIPSTICK" /> <statusCode code="completed" /> <effectiveTime value="806405586358" /> <value unit="" xsi:type= "PQ" value="NEGATIVE" /> <referenceRange> <observationRange > <text>NEGATIVE</text> </observationRange> </ referenceRange> </observation> </component> <component> <observation moodCode="EVN" classCode="OBS"> <templateId root= "216.840.1.758955.02.28.22.4.2" /> <id nullFlavor="NA" /> < code codeSystem="local" code="PROTEIU" displayName="UA PROTEIN DIPSTICK" /> <statusCode code="completed" /> <effectiveTime value= "287548420120" /> <value unit="" xsi:type="PQ" value="1+" /> < interpretationCode codeSystem="local" code="*" /> <referenceRange> <observationRange> <text>NEGATIVE</text> </ observationRange> </referenceRange> </observation> </ component> <component> <observation moodCode="EVN" classCode="OBS"> <templateId root="06.27.840.1.219493.02.28.22.4.2" /> <id nullFlavor="NA" /> <code codeSystem="local" code="DGLUU" displayName= "UA GLUCOSE DIPSTICK" /> <statusCode code="completed" /> < effectiveTime value="266426116103" /> <value unit="" xsi:type="PQ" value="NEGATIVE" /> <referenceRange> <observationRange> <text>NEGATIVE</text> </observationRange> </ referenceRange> </observation> </component> <component> <observation moodCode="EVN" classCode="OBS"> <templateId root= "06.27.840.1.838946.02.28.22.4.2" /> <id nullFlavor="NA" /> < code codeSystem="local" code="KETONU" displayName="UA KETONE DIPSTICK" /> <statusCode code="completed" /> <effectiveTime value="872848972410 " /> <value unit="" xsi:type="PQ" value="NEGATIVE" /> < referenceRange> <observationRange> <text>NEGATIVE</text > </observationRange> </referenceRange> </observation > </component> <component> <observation moodCode="EVN" classCode="OBS"> <templateId root="16.840.1.966082.10...4.2" /> <id nullFlavor="NA" /> <code codeSystem="local" code="UROBILU " displayName="UA UROBILINOGEN DIPSTICK" /> <statusCode code="completed " /> <effectiveTime value="623150610787" /> <value unit="" xsi :type="PQ" value="NORMAL" /> <referenceRange> < observationRange> <text>NORMAL</text> </observationRange > </referenceRange> </observation> </component> < component> <observation moodCode="EVN" classCode="OBS"> < templateId root="16.840.1.946160.10...4.2" /> <id nullFlavor="NA " /> <code codeSystem="local" code="BILU" displayName="UA BILIRUBIN DIPSTICK" /> <statusCode code="completed" /> <effectiveTime value="984154401668" /> <value unit="" xsi:type="PQ" value="NEGATIVE" / > <referenceRange> <observationRange> <text> NEGATIVE</text> </observationRange> </referenceRange> </observation> </component> <component> <observation moodCode ="EVN" classCode="OBS"> <templateId root= "16.840.1.326053.02.28.22.4.2" /> <id nullFlavor="NA" /> < code codeSystem="local" code="NOLVIA" displayName="UA BLOOD DIPSTICK" /> < statusCode code="completed" /> <effectiveTime value="" /> <value unit="" xsi:type="PQ" value="1+" /> < interpretationCode codeSystem="local" code="*" /> <referenceRange> <observationRange> <text>NEGATIVE</text> </ observationRange> </referenceRange> </observation> </ component> <component> <observation moodCode="EVN" classCode="OBS"> <templateId root="06.27.840.1.608073.02.28.224.2" /> <id nullFlavor="NA" /> <code codeSystem="local" code="SPGRU" displayName= "UA SPECIFIC GRAVITY" /> <statusCode code="completed" /> < effectiveTime value="" /> <value unit="" xsi:type="PQ" value="1.010" /> <interpretationCode codeSystem="local" code="*" /> <referenceRange> <observationRange> <text>1.015- 1.025</text> </observationRange> </referenceRange> </ observation> </component> <component> <observation moodCode= "EVN" classCode="OBS"> <templateId root="06.27.840.1.030964.10.4.2 " /> <id nullFlavor="NA" /> <code codeSystem="local" code="DIETER " displayName="UR PH" /> <statusCode code="completed" /> < effectiveTime value="" /> <value unit="" xsi:type="PQ" value="8.0" /> <interpretationCode codeSystem="local" code="*" /> <referenceRange> <observationRange> <text>5.0-7.0</ text> </observationRange> </referenceRange> </ observation> </component> </organizer> </entry> <entry> <organizer moodCode="EVN" classCode="BATTERY"> <templateId root= "216.840.1.112888.10..22.4.1" /> <id nullFlavor="NA" /> <code codeSystem="local" code="UAMICRO" displayName="UA MICROSCOPIC" /> < statusCode code="completed" /> <component> <observation moodCode= "EVN" classCode="OBS"> <templateId root="216.840.1.759687.10...4.2 " /> <id nullFlavor="NA" /> <code codeSystem="local" code= "BACU" displayName="UA BACTERIA" /> <statusCode code="completed" /> <effectiveTime value="" /> <value unit="" xsi:type= "PQ" value="2+" /> <interpretationCode codeSystem="local" code="*" /> <referenceRange> <observationRange> <text> NEGATIVE</text> </observationRange> </referenceRange> </observation> </component> <component> <observation moodCode ="EVN" classCode="OBS"> <templateId root= "16.840.1.530503.10..4.2" /> <id nullFlavor="NA" /> < code codeSystem="local" code="EPIU" displayName="UA EPITHELIAL CELLS" /> <statusCode code="completed" /> <effectiveTime value="461824408322" /> <value unit="epi/hpf" xsi:type="PQ" value="1+" /> < referenceRange> <observationRange> <text>0 - 1+</text> </observationRange> </referenceRange> </observation> </component> <component> <observation moodCode="EVN" classCode ="OBS"> <templateId root="216.840.1.986325.02.28.22.4.2" /> < id nullFlavor="NA" /> <code codeSystem="local" code="MUCUSU" displayName="UA MUCUS" /> <statusCode code="completed" /> < effectiveTime value="073112033406" /> <value unit="" xsi:type="PQ" value="2+" /> <interpretationCode codeSystem="local" code="*" /> <referenceRange> <observationRange> <text>NEG TO 1+< /text> </observationRange> </referenceRange> </ observation> </component> <component> <observation moodCode= "EVN" classCode="OBS"> <templateId root="06.27.840.1.359318.02.28.22.4.2 " /> <id nullFlavor="NA" /> <code codeSystem="local" code= "RBCU" displayName="UA RBC" /> <statusCode code="completed" /> <effectiveTime value="224979800454" /> <value unit="rbc/hpf" xsi:type ="PQ" value="0-3" /> <referenceRange> <observationRange> <text>0 - 3</text> </observationRange> </ referenceRange> </observation> </component> <component> <observation moodCode="EVN" classCode="OBS"> <templateId root= "16.840.1.385222.02.28.22.4.2" /> <id nullFlavor="NA" /> < code codeSystem="local" code="UAVOL" displayName="UA VOLUME FOR EXAM" /> <statusCode code="completed" /> <effectiveTime value="270167853139" /> <value unit="mL" xsi:type="PQ" value="12.0" /> < referenceRange> <observationRange> <text>(12mL STD)</ text> </observationRange> </referenceRange> </ observation> </component> <component> <observation moodCode= "EVN" classCode="OBS"> <templateId root="840.1.512401.02.28.22.4.2 " /> <id nullFlavor="NA" /> <code codeSystem="local" code= "WBCU" displayName="UA WBC" /> <statusCode code="completed" /> <effectiveTime value="980592791445" /> <value unit="wbc/hpf" xsi:type ="PQ" value="5-10" /> <interpretationCode codeSystem="local" code="*" / > <referenceRange> <observationRange> <text>0 - 5</text> </observationRange> </referenceRange> </ observation> </component> </organizer> </entry> <entry> <organizer moodCode="EVN" classCode="BATTERY"> <templateId root= "06.27.840.1.481915.02.28.22.4.1" /> <id nullFlavor="NA" /> <code codeSystem="local" code="CBCD" displayName="CBC W/DIFF" /> <statusCode code ="completed" /> <component> <observation moodCode="EVN" classCode= "OBS"> <templateId root="06.27.840.1.977642.02.28.22.4.2" /> < id nullFlavor="NA" /> <code codeSystem="local" code="BA#" displayName= "BASOPHIL #" /> <statusCode code="completed" /> < effectiveTime value="121039510113" /> <value unit="k/cumm" xsi:type="PQ " value="0.0" /> <referenceRange> <observationRange> <text>0.0-0.2</text> </observationRange> </ referenceRange> </observation> </component> <component> <observation moodCode="EVN" classCode="OBS"> <templateId root= "216.840.1.060828.10..4.2" /> <id nullFlavor="NA" /> < code codeSystem="local" code="BA%" displayName="BASOPHIL %" /> <statusCode code="completed" /> <effectiveTime value="662459790836" /> <value unit="%" xsi:type="PQ" value="1" /> < referenceRange> <observationRange> <text>0-1</text> </observationRange> </referenceRange> </observation> </component> <component> <observation moodCode="EVN" classCode= "OBS"> <templateId root="16.840.1.228476.10.4.2" /> < id nullFlavor="NA" /> <code codeSystem="local" code="EO#" displayName= "EOSINOPHIL #" /> <statusCode code="completed" /> < effectiveTime value="085226002211" /> <value unit="k/cumm" xsi:type="PQ " value="0.2" /> <referenceRange> <observationRange> <text>0.1-0.5</text> </observationRange> </ referenceRange> </observation> </component> <component> <observation moodCode="EVN" classCode="OBS"> <templateId root= "16.840.1.497497.10...4.2" /> <id nullFlavor="NA" /> < code codeSystem="local" code="EO%" displayName="EOSINOPHIL %" /> <statusCode code="completed" /> <effectiveTime value="776703134250" /> <value unit="%" xsi:type="PQ" value="4" /> < referenceRange> <observationRange> <text>2-4</text> </observationRange> </referenceRange> </observation> </component> <component> <observation moodCode="EVN" classCode= "OBS"> <templateId root="2.16.840.1.742538.10..22.4.2" /> < id nullFlavor="NA" /> <code codeSystem="local" code="GR#" displayName= "GRANULOCYTE #" /> <statusCode code="completed" /> < effectiveTime value="846637583761" /> <value unit="k/cumm" xsi:type="PQ " value="4.1" /> <referenceRange> <observationRange> <text>2.0-9.0</text> </observationRange> </ referenceRange> </observation> </component> <component> <observation moodCode="EVN" classCode="OBS"> <templateId root= "2.16.840.1.989438.10.20.22.4.2" /> <id nullFlavor="NA" /> < code codeSystem="local" code="GR%" displayName="GRANULOCYTE %" /> <statusCode code="completed" /> <effectiveTime value="452800262505 " /> <value unit="%" xsi:type="PQ" value="60" /> < referenceRange> <observationRange> <text>50-75</text> </observationRange> </referenceRange> </observation> </component> <component> <observation moodCode="EVN" classCode= "OBS"> <templateId root="06.27.840.1.587272.10..4.2" /> < id nullFlavor="NA" /> <code codeSystem="local" code="LY#" displayName= "LYMPHOCYTE #" /> <statusCode code="completed" /> < effectiveTime value="213061414118" /> <value unit="k/cumm" xsi:type="PQ " value="1.9" /> <referenceRange> <observationRange> <text>1.0-4.0</text> </observationRange> </ referenceRange> </observation> </component> <component> <observation moodCode="EVN" classCode="OBS"> <templateId root= "06.27.840.1.105787.10.4.2" /> <id nullFlavor="NA" /> < code codeSystem="local" code="LY%" displayName="LYMPHOCYTE %" /> <statusCode code="completed" /> <effectiveTime value="154988935911" /> <value unit="%" xsi:type="PQ" value="27" /> < referenceRange> <observationRange> <text>20-30</text> </observationRange> </referenceRange> </observation> </component> <component> <observation moodCode="EVN" classCode= "OBS"> <templateId root="06.27.840.1.451451.10.22.4.2" /> < id nullFlavor="NA" /> <code codeSystem="local" code="MCH" displayName= "MEAN CELL HGB" /> <statusCode code="completed" /> < effectiveTime value="467328030502" /> <value unit="pg" xsi:type="PQ" value="30.0" /> <referenceRange> <observationRange> <text>27.0-33.0</text> </observationRange> </ referenceRange> </observation> </component> <component> <observation moodCode="EVN" classCode="OBS"> <templateId root= "06.27.840.1.565643.10.4.2" /> <id nullFlavor="NA" /> < code codeSystem="local" code="MCHC" displayName="MEAN CELL HGB CONCENTRATION" / > <statusCode code="completed" /> <effectiveTime value= "962636012245" /> <value unit="g/dL" xsi:type="PQ" value="33.8" /> <referenceRange> <observationRange> <text>32.0- 37.0</text> </observationRange> </referenceRange> </ observation> </component> <component> <observation moodCode= "EVN" classCode="OBS"> <templateId root="06.27.840.1.796552.02.28.22.4.2 " /> <id nullFlavor="NA" /> <code codeSystem="local" code="MCV " displayName="MEAN CELL VOLUME" /> <statusCode code="completed" /> <effectiveTime value="736069944107" /> <value unit="fl" xsi:type ="PQ" value="88.8" /> <referenceRange> <observationRange> <text>80.0-100.0</text> </observationRange> </ referenceRange> </observation> </component> <component> <observation moodCode="EVN" classCode="OBS"> <templateId root= "06.27.840.1.918343.02.28.22.4.2" /> <id nullFlavor="NA" /> < code codeSystem="local" code="MO#" displayName="MONOCYTE #" /> < statusCode code="completed" /> <effectiveTime value="821283444401" /> <value unit="k/cumm" xsi:type="PQ" value="0.6" /> < referenceRange> <observationRange> <text>0.1-1.0</text> </observationRange> </referenceRange> </observation > </component> <component> <observation moodCode="EVN" classCode="OBS"> <templateId root="216.840.1.975480.02.28.22.4.2" /> <id nullFlavor="NA" /> <code codeSystem="local" code="MO% " displayName="MONOCYTE %" /> <statusCode code="completed" /> <effectiveTime value="666253805249" /> <value unit="%" xsi: type="PQ" value="9" /> <interpretationCode codeSystem="local" code="*" /> <referenceRange> <observationRange> <text>4- 6</text> </observationRange> </referenceRange> </ observation> </component> <component> <observation moodCode= "EVN" classCode="OBS"> <templateId root="216.840.1.169624.10...4.2 " /> <id nullFlavor="NA" /> <code codeSystem="local" code="RBC " displayName="RED BLOOD CELL" /> <statusCode code="completed" /> <effectiveTime value="639044547971" /> <value unit="m/cumm" xsi: type="PQ" value="3.57" /> <interpretationCode codeSystem="local" code= "*" /> <referenceRange> <observationRange> < text>4.00-6.00</text> </observationRange> </referenceRange> </observation> </component> <component> <observation moodCode="EVN" classCode="OBS"> <templateId root= "2.16.840.1.639999.102022.4.2" /> <id nullFlavor="NA" /> < code codeSystem="local" code="RDW" displayName="RED CELL DISTRIBUTION WIDTH" /> <statusCode code="completed" /> <effectiveTime value= "106947471892" /> <value unit="%" xsi:type="PQ" value="13.5" /> <referenceRange> <observationRange> <text>11.0- 15.6</text> </observationRange> </referenceRange> </ observation> </component> <component> <observation moodCode= "EVN" classCode="OBS"> <templateId root="06.27.840.1.752251.02.28.22.4.2 " /> <id nullFlavor="NA" /> <code codeSystem="local" code="WBC " displayName="WHITE BLOOD CELL" /> <statusCode code="completed" /> <effectiveTime value="506889201595" /> <value unit="k/cumm" xsi: type="PQ" value="6.9" /> <referenceRange> <observationRange > <text>5.0-10.0</text> </observationRange> </ referenceRange> </observation> </component> <component> <observation moodCode="EVN" classCode="OBS"> <templateId root= "06.27.840.1.229274.22.4.2" /> <id nullFlavor="NA" /> < code codeSystem="local" code="HGBT" displayName="HEMOGLOBIN" /> < statusCode code="completed" /> <effectiveTime value="996597706745" /> <value unit="gm/dL" xsi:type="PQ" value="10.7" /> < interpretationCode codeSystem="local" code="*" /> <referenceRange> <observationRange> <text>12.0-16.0</text> </ observationRange> </referenceRange> </observation> </ component> <component> <observation moodCode="EVN" classCode="OBS"> <templateId root="216.840.1.568026.10.20.22.4.2" /> <id nullFlavor="NA" /> <code codeSystem="local" code="HCTT" displayName= "HEMATOCRIT" /> <statusCode code="completed" /> < effectiveTime value="903692291086" /> <value unit="%" xsi:type="PQ " value="31.7" /> <interpretationCode codeSystem="local" code="*" /> <referenceRange> <observationRange> <text>37.0- 47.0</text> </observationRange> </referenceRange> </ observation> </component> <component> <observation moodCode= "EVN" classCode="OBS"> <templateId root="06.27.840.1.512229.10..4.2 " /> <id nullFlavor="NA" /> <code codeSystem="local" code="PLT " displayName="PLATELET COUNT" /> <statusCode code="completed" /> <effectiveTime value="600262290800" /> <value unit="k/cumm" xsi: type="PQ" value="275" /> <referenceRange> <observationRange > <text>150-450</text> </observationRange> </ referenceRange> </observation> </component> </organizer> </entry > <entry> <organizer moodCode="EVN" classCode="BATTERY"> <templateId root="16.840.1.325133.10..22.4.1" /> <id nullFlavor="NA" /> <code codeSystem="local" code="PREG" displayName=" TEST, SERUM" /> < statusCode code="completed" /> <component> <observation moodCode= "EVN" classCode="OBS"> <templateId root="216.840.1.165159.1022.4.2 " /> <id nullFlavor="NA" /> <code codeSystem="local" code= "PREG" displayName=" TEST, SERUM" /> <statusCode code= "completed" /> <effectiveTime value="656656036267" /> <value unit="" xsi:type="PQ" value="NEGATIVE" /> <referenceRange> < observationRange> <text>NEGATIVE</text> </ observationRange> </referenceRange> </observation> </ component> </organizer> </entry> <entry> <organizer moodCode="EVN" classCode="BATTERY"> <templateId root="216.840.1.314152.22.4.1" /> <id nullFlavor="NA" /> <code codeSystem="local" code="PT" displayName= "PROTHROMBIN TIME WITH INR" /> <statusCode code="completed" /> < component> <observation moodCode="EVN" classCode="OBS"> < templateId root="216.840.1.484863.10..22.4.2" /> <id nullFlavor="NA " /> <code codeSystem="local" code="INRX" displayName="INTERNATIONAL NORMAL RATIO" /> <statusCode code="completed" /> < effectiveTime value="078078195344" /> <value unit="" xsi:type="PQ" value="1.1" /> <referenceRange> <observationRange> <text>0.9-1.1</text> </observationRange> </ referenceRange> </observation> </component> <component> <observation moodCode="EVN" classCode="OBS"> <templateId root= "16.840.1.288047.10..22.4.2" /> <id nullFlavor="NA" /> < code codeSystem="local" code="PTPAT" displayName="PROTHROMBIN TIME" /> <statusCode code="completed" /> <effectiveTime value="825580387452" /> <value unit="sec" xsi:type="PQ" value="12.3" /> < referenceRange> <observationRange> <text>10.0-12.9</text > </observationRange> </referenceRange> </observation > </component> </organizer> </entry> <entry> <organizer moodCode= "EVN" classCode="BATTERY"> <templateId root="216.840.1.384357.10..22.4.1 " /> <id nullFlavor="NA" /> <code codeSystem="local" code="PTT" displayName="PARTIAL THROMBOPLASTIN TIME" /> <statusCode code="completed" / > <component> <observation moodCode="EVN" classCode="OBS"> <templateId root="216.840.1.806518.10.20.22.4.2" /> <id nullFlavor="NA " /> <code codeSystem="local" code="PTT" displayName="PARTIAL THROMBOPLASTIN TIME" /> <statusCode code="completed" /> < effectiveTime value="561235096783" /> <value unit="sec" xsi:type="PQ" value="33" /> <referenceRange> <observationRange> <text>25-37</text> </observationRange> </referenceRange > </observation> </component> </organizer> </entry> <entry> <organizer moodCode="EVN" classCode="BATTERY"> <templateId root= "216.840.1.042859.22.4.1" /> <id nullFlavor="NA" /> <code codeSystem="local" code="METABC" displayName="METABOLIC PANEL, COMPREHN" /> <statusCode code="completed" /> <component> <observation moodCode= "EVN" classCode="OBS"> <templateId root="16.840.1.494722.02.28.22.4.2 " /> <id nullFlavor="NA" /> <code codeSystem="local" code="K" displayName="POTASSIUM" /> <statusCode code="completed" /> < effectiveTime value="471644899457" /> <value unit="mmol/L" xsi:type="PQ " value="3.1" /> <interpretationCode codeSystem="local" code="*" /> <referenceRange> <observationRange> <text>3.5-5.3 </text> </observationRange> </referenceRange> </ observation> </component> <component> <observation moodCode= "EVN" classCode="OBS"> <templateId root="840.1.234052.02.28.22.4.2 " /> <id nullFlavor="NA" /> <code codeSystem="local" code= "eGFR" displayName="EST GFR (MDRD)" /> <statusCode code="completed" /> <effectiveTime value="396952113801" /> <value unit="mL/min" xsi:type="PQ" value="> 60" /> <referenceRange> < observationRange> <text>> 59</text> </ observationRange> </referenceRange> </observation> </ component> <component> <observation moodCode="EVN" classCode="OBS"> <templateId root="06.27.840.1.087944.02.28.22.4.2" /> <id nullFlavor="NA" /> <code codeSystem="local" code="GAP" displayName= "ANION GAP" /> <statusCode code="completed" /> <effectiveTime value="134877775819" /> <value unit="mmol/L" xsi:type="PQ" value="11" / > <referenceRange> <observationRange> <text>5- 15</text> </observationRange> </referenceRange> </ observation> </component> <component> <observation moodCode= "EVN" classCode="OBS"> <templateId root="2.16.840.1.764697.10.20.22.4.2 " /> <id nullFlavor="NA" /> <code codeSystem="local" code= "eCrCl" displayName="EST CrCl (CG)" /> <statusCode code="completed" /> <effectiveTime value="" /> <value unit="mL/min" xsi:type="PQ" value="> 60" /> <referenceRange> < observationRange> <text>> 59</text> </ observationRange> </referenceRange> </observation> </ component> <component> <observation moodCode="EVN" classCode="OBS"> <templateId root="2.16.840.1.670553.10.20.22.4.2" /> <id nullFlavor="NA" /> <code codeSystem="local" code="GLU" displayName= "GLUCOSE" /> <statusCode code="completed" /> <effectiveTime value="830740011347" /> <value unit="mg/dL" xsi:type="PQ" value="82" / > <referenceRange> <observationRange> <text>70- 99</text> </observationRange> </referenceRange> </ observation> </component> <component> <observation moodCode= "EVN" classCode="OBS"> <templateId root="216.840.1.603772.10..22.4.2 " /> <id nullFlavor="NA" /> <code codeSystem="local" code="CA " displayName="CALCIUM" /> <statusCode code="completed" /> < effectiveTime value="705404480013" /> <value unit="mg/dL" xsi:type="PQ " value="9.0" /> <referenceRange> <observationRange> <text>8.5-10.1</text> </observationRange> </ referenceRange> </observation> </component> <component> <observation moodCode="EVN" classCode="OBS"> <templateId root= "216.840.1.363576.10..4.2" /> <id nullFlavor="NA" /> < code codeSystem="local" code="BUN" displayName="BLOOD UREA NITROGEN" /> <statusCode code="completed" /> <effectiveTime value="760758120226" / > <value unit="mg/dL" xsi:type="PQ" value="16" /> < referenceRange> <observationRange> <text>7-20</text> </observationRange> </referenceRange> </observation> </component> <component> <observation moodCode="EVN" classCode= "OBS"> <templateId root="216.840.1.373325.10..4.2" /> < id nullFlavor="NA" /> <code codeSystem="local" code="CREAT" displayName ="CREATININE" /> <statusCode code="completed" /> < effectiveTime value="749366298471" /> <value unit="mg/dL" xsi:type="PQ " value="0.9" /> <referenceRange> <observationRange> <text>0.6-1.0</text> </observationRange> </ referenceRange> </observation> </component> <component> <observation moodCode="EVN" classCode="OBS"> <templateId root= "216.840.1.842517.10..22.4.2" /> <id nullFlavor="NA" /> < code codeSystem="local" code="NA" displayName="SODIUM" /> <statusCode code="completed" /> <effectiveTime value="129850312571" /> < value unit="mmol/L" xsi:type="PQ" value="144" /> <referenceRange> <observationRange> <text>135-148</text> </ observationRange> </referenceRange> </observation> </ component> <component> <observation moodCode="EVN" classCode="OBS"> <templateId root="216.840.1.586723...4.2" /> <id nullFlavor="NA" /> <code codeSystem="local" code="CL" displayName= "CHLORIDE" /> <statusCode code="completed" /> <effectiveTime value="553843069121" /> <value unit="mmol/L" xsi:type="PQ" value="103" /> <referenceRange> <observationRange> <text>98 -110</text> </observationRange> </referenceRange> </ observation> </component> <component> <observation moodCode= "EVN" classCode="OBS"> <templateId root="16.840.1.364313.10..22.4.2 " /> <id nullFlavor="NA" /> <code codeSystem="local" code="AST " displayName="AST/SGOT" /> <statusCode code="completed" /> < effectiveTime value="705198284916" /> <value unit="Units/L" xsi:type= "PQ" value="14" /> <referenceRange> <observationRange> <text>10-37</text> </observationRange> </ referenceRange> </observation> </component> <component> <observation moodCode="EVN" classCode="OBS"> <templateId root= "216.840.1.131604.10..22.4.2" /> <id nullFlavor="NA" /> < code codeSystem="local" code="ALT" displayName="ALT/SGPT" /> < statusCode code="completed" /> <effectiveTime value="504136297680" /> <value unit="Units/L" xsi:type="PQ" value="9" /> < referenceRange> <observationRange> <text>< 66</text> </observationRange> </referenceRange> </observation > </component> <component> <observation moodCode="EVN" classCode="OBS"> <templateId root="06.27.840.1.989030.10.4.2" /> <id nullFlavor="NA" /> <code codeSystem="local" code="CO2" displayName="CARBON DIOXIDE" /> <statusCode code="completed" /> <effectiveTime value="964767925353" /> <value unit="mmol/L" xsi:type ="PQ" value="30" /> <referenceRange> <observationRange> <text>21-32</text> </observationRange> </ referenceRange> </observation> </component> <component> <observation moodCode="EVN" classCode="OBS"> <templateId root= "06.27.840.1.130348.10..4.2" /> <id nullFlavor="NA" /> < code codeSystem="local" code="TP" displayName="TOTAL PROTEIN" /> < statusCode code="completed" /> <effectiveTime value="866450679483" /> <value unit="gm/dL" xsi:type="PQ" value="6.8" /> < referenceRange> <observationRange> <text>6.4-8.2</text> </observationRange> </referenceRange> </observation > </component> <component> <observation moodCode="EVN" classCode="OBS"> <templateId root="216.840.1.445287.10..22.4.2" /> <id nullFlavor="NA" /> <code codeSystem="local" code="ALB" displayName="ALBUMIN" /> <statusCode code="completed" /> < effectiveTime value="314751305186" /> <value unit="gm/dL" xsi:type="PQ " value="3.6" /> <referenceRange> <observationRange> <text>3.4-5.0</text> </observationRange> </ referenceRange> </observation> </component> <component> <observation moodCode="EVN" classCode="OBS"> <templateId root= "16.840.1.920612.10...4.2" /> <id nullFlavor="NA" /> < code codeSystem="local" code="BILTOT" displayName="BILI TOTAL" /> < statusCode code="completed" /> <effectiveTime value="606332809436" /> <value unit="mg/dL" xsi:type="PQ" value="0.3" /> < referenceRange> <observationRange> <text>0.0-1.0</text> </observationRange> </referenceRange> </observation > </component> <component> <observation moodCode="EVN" classCode="OBS"> <templateId root="216.840.1.348121.10..22.4.2" /> <id nullFlavor="NA" /> <code codeSystem="local" code="ALKP" displayName="ALKALINE PHOSPHATASE TOTAL" /> <statusCode code="completed " /> <effectiveTime value="636280228840" /> <value unit="IU/L " xsi:type="PQ" value="66" /> <referenceRange> < observationRange> <text>45-117</text> </observationRange > </referenceRange> </observation> </component> </ organizer> </entry> <entry> <organizer moodCode="EVN" classCode="BATTERY"> <templateId root="216.840.1.514147.10.20.22.4.1" /> <id nullFlavor= "NA" /> <code codeSystem="local" code="TSH" displayName="THYROID STIM HORMONE (TSH)" /> <statusCode code="completed" /> <component> < observation moodCode="EVN" classCode="OBS"> <templateId root= "216.840.1.936927.10.20.22.4.2" /> <id nullFlavor="NA" /> < code codeSystem="local" code="TSH" displayName="THYROID STIM HORMONE (TSH)" /> <statusCode code="completed" /> <effectiveTime value= "265911982900" /> <value unit="uIU/mL" xsi:type="PQ" value="2.48" /> <referenceRange> <observationRange> <text>0.34- 4.82</text> </observationRange> </referenceRange> </ observation> </component> </organizer> </entry> <entry> <organizer moodCode="EVN" classCode="BATTERY"> <templateId root= "216.840.1.738007.10.20.22.4.1" /> <id nullFlavor="NA" /> <code codeSystem="local" code="ORD68" displayName="Urinalysis" /> <statusCode code="completed" /> <component> <observation moodCode="EVN" classCode="OBS"> <templateId root="216.840.1.922934.02.28.22.4.2" /> <id nullFlavor="NA" /> <code codeSystem="local" code="Lah7196 " displayName="Icotest" /> <statusCode code="completed" /> < effectiveTime value="353934160356" /> <value unit="" xsi:type="PQ" value="N/A" /> <interpretationCode codeSystem="local" code="A" /> <referenceRange> <observationRange> <text>Negative< /text> </observationRange> </referenceRange> </ observation> </component> <component> <observation moodCode= "EVN" classCode="OBS"> <templateId root="06.27.840.1.983202.02.28.224.2 " /> <id nullFlavor="NA" /> <code codeSystem="local" code= "Kdx755" displayName="Urine Crystals" /> <statusCode code="completed" / > <effectiveTime value="949213727395" /> <value unit="" xsi: type="PQ" value="Amorphous material: abundant/HPF" /> <referenceRange> <observationRange> <text /> </ observationRange> </referenceRange> </observation> </ component> <component> <observation moodCode="EVN" classCode="OBS"> <templateId root="216.840.1.902326.02.28.22.4.2" /> <id nullFlavor="NA" /> <code codeSystem="local" code="Tpw719" displayName= "Urine Volume" /> <statusCode code="completed" /> < effectiveTime value="850842397728" /> <value unit="" xsi:type="PQ" value="Urine Volume Sufficient (10mL)" /> <referenceRange> < observationRange> <text /> </observationRange> </referenceRange> </observation> </component> <component> <observation moodCode="EVN" classCode="OBS"> <templateId root= "16.840.1.608725.10..22.4.2" /> <id nullFlavor="NA" /> < code codeSystem="local" code="Mrw285" displayName="Urine-Appearance" /> <statusCode code="completed" /> <effectiveTime value="403233870523" / > <value unit="" xsi:type="PQ" value="Cloudy" /> < interpretationCode codeSystem="local" code="A" /> <referenceRange> <observationRange> <text>Clear</text> </ observationRange> </referenceRange> </observation> </ component> <component> <observation moodCode="EVN" classCode="OBS"> <templateId root="06.27.840.1.653906.10..4.2" /> <id nullFlavor="NA" /> <code codeSystem="local" code="Hba771" displayName= "Urine-Bacteria" /> <statusCode code="completed" /> < effectiveTime value="209294709466" /> <value unit="" xsi:type="PQ" value="Trace" /> <interpretationCode codeSystem="local" code="A" /> <referenceRange> <observationRange> <text> </text > </observationRange> </referenceRange> </observation > </component> <component> <observation moodCode="EVN" classCode="OBS"> <templateId root="16.840.1.135024.10..22.4.2" /> <id nullFlavor="NA" /> <code codeSystem="local" code="Job496" displayName="Urine-Bilirubin" /> <statusCode code="completed" /> <effectiveTime value="432763179905" /> <value unit="" xsi:type="PQ " value="Negative" /> <referenceRange> <observationRange> <text>Negative</text> </observationRange> </ referenceRange> </observation> </component> <component> <observation moodCode="EVN" classCode="OBS"> <templateId root= "216.840.1.807395.10.22.4.2" /> <id nullFlavor="NA" /> < code codeSystem="local" code="Vlh263" displayName="Urine-Blood" /> < statusCode code="completed" /> <effectiveTime value="169183044146" /> <value unit="" xsi:type="PQ" value="Negative" /> < referenceRange> <observationRange> <text>Negative</text > </observationRange> </referenceRange> </observation > </component> <component> <observation moodCode="EVN" classCode="OBS"> <templateId root="06.27.840.1.649023.22.4.2" /> <id nullFlavor="NA" /> <code codeSystem="local" code="Xbn313" displayName="Urine-Color" /> <statusCode code="completed" /> < effectiveTime value="999554808231" /> <value unit="" xsi:type="PQ" value="Yellow" /> <referenceRange> <observationRange> <text>Colorless-Lt. Yellow</text> </observationRange> </referenceRange> </observation> </component> <component> <observation moodCode="EVN" classCode="OBS"> <templateId root= "06.27.840.1.265814.02.28.224.2" /> <id nullFlavor="NA" /> < code codeSystem="local" code="Arx642" displayName="Urine-Epithelial Cells" /> <statusCode code="completed" /> <effectiveTime value= "814566169136" /> <value unit="" xsi:type="PQ" value="5-10/HPF" /> <interpretationCode codeSystem="local" code="A" /> < referenceRange> <observationRange> <text> </text> </observationRange> </referenceRange> </observation> </component> <component> <observation moodCode="EVN" classCode="OBS "> <templateId root="2.16.840.1.956441.02.28.224.2" /> <id nullFlavor="NA" /> <code codeSystem="local" code="Czk183" displayName= "Urine-Glucose" /> <statusCode code="completed" /> < effectiveTime value="995212048487" /> <value unit="" xsi:type="PQ" value="Negative" /> <referenceRange> <observationRange> <text>Negative</text> </observationRange> </ referenceRange> </observation> </component> <component> <observation moodCode="EVN" classCode="OBS"> <templateId root= "2.16.840.1.483755.02.28.22.4.2" /> <id nullFlavor="NA" /> < code codeSystem="local" code="Chc109" displayName="Urine-Ketones" /> < statusCode code="completed" /> <effectiveTime value="193070761661" /> <value unit="" xsi:type="PQ" value="Negative" /> < referenceRange> <observationRange> <text>Negative</text > </observationRange> </referenceRange> </observation > </component> <component> <observation moodCode="EVN" classCode="OBS"> <templateId root="216.840.1.753383.10..22.4.2" /> <id nullFlavor="NA" /> <code codeSystem="local" code="Csr010" displayName="Urine-Leukocytes" /> <statusCode code="completed" /> <effectiveTime value="231125851654" /> <value unit="" xsi:type="PQ " value="1+" /> <interpretationCode codeSystem="local" code="A" /> <referenceRange> <observationRange> <text>Negative </text> </observationRange> </referenceRange> </ observation> </component> <component> <observation moodCode= "EVN" classCode="OBS"> <templateId root="216.840.1.336943...4.2 " /> <id nullFlavor="NA" /> <code codeSystem="local" code= "Huj943" displayName="Urine-Nitrite" /> <statusCode code="completed" / > <effectiveTime value="025619379855" /> <value unit="" xsi: type="PQ" value="Negative" /> <referenceRange> < observationRange> <text>Negative</text> </ observationRange> </referenceRange> </observation> </ component> <component> <observation moodCode="EVN" classCode="OBS"> <templateId root="216.840.1.734753.10..22.4.2" /> <id nullFlavor="NA" /> <code codeSystem="local" code="Upg432" displayName= "Urine-Other" /> <statusCode code="completed" /> < effectiveTime value="808303418362" /> <value unit="" xsi:type="PQ" value=" Urine Saved if Culture Needed (48hrs from time of collection)" /> <interpretationCode codeSystem="local" code="A" /> <referenceRange > <observationRange> <text> </text> </ observationRange> </referenceRange> </observation> </ component> <component> <observation moodCode="EVN" classCode="OBS"> <templateId root="16.840.1.370542.10.22.4.2" /> <id nullFlavor="NA" /> <code codeSystem="local" code="Nqj118" displayName= "Urine-pH" /> <statusCode code="completed" /> <effectiveTime value="055119178945" /> <value unit="" xsi:type="PQ" value="7.5" /> <referenceRange> <observationRange> <text>5-8.5</ text> </observationRange> </referenceRange> </ observation> </component> <component> <observation moodCode= "EVN" classCode="OBS"> <templateId root="06.27.840.1.965142.02.28.22.4.2 " /> <id nullFlavor="NA" /> <code codeSystem="local" code= "Khp933" displayName="Urine-Protein" /> <statusCode code="completed" / > <effectiveTime value="365625488731" /> <value unit="" xsi: type="PQ" value="Negative" /> <referenceRange> < observationRange> <text>Negative</text> </ observationRange> </referenceRange> </observation> </ component> <component> <observation moodCode="EVN" classCode="OBS"> <templateId root="06.27.840.1.495571.1022.4.2" /> <id nullFlavor="NA" /> <code codeSystem="local" code="Kjw970" displayName= "Urine-RBC" /> <statusCode code="completed" /> <effectiveTime value="297714187244" /> <value unit="" xsi:type="PQ" value="0-2/HPF" / > <interpretationCode codeSystem="local" code="A" /> < referenceRange> <observationRange> <text> </text> </observationRange> </referenceRange> </observation> </component> <component> <observation moodCode="EVN" classCode="OBS "> <templateId root="06.27.840.1.167640.10..22.4.2" /> <id nullFlavor="NA" /> <code codeSystem="local" code="Gyt409" displayName= "Urine-Specific Seibert" /> <statusCode code="completed" /> < effectiveTime value="000556349124" /> <value unit="" xsi:type="PQ" value="1.020" /> <referenceRange> <observationRange> <text>1.000-1.030</text> </observationRange> </ referenceRange> </observation> </component> <component> <observation moodCode="EVN" classCode="OBS"> <templateId root= "06.27.840.1.509409.10..22.4.2" /> <id nullFlavor="NA" /> < code codeSystem="local" code="Dgf254" displayName="Urine-WBC" /> < statusCode code="completed" /> <effectiveTime value="369245932889" /> <value unit="" xsi:type="PQ" value="2-5/HPF" /> < interpretationCode codeSystem="local" code="A" /> <referenceRange> <observationRange> <text> </text> </ observationRange> </referenceRange> </observation> </ component> <component> <observation moodCode="EVN" classCode="OBS"> <templateId root="06.27.840.1.197900.02.28.22.4.2" /> <id nullFlavor="NA" /> <code codeSystem="local" code="Rtv034" displayName= "Urobilinogen" /> <statusCode code="completed" /> < effectiveTime value="585936311913" /> <value unit="" xsi:type="PQ" value="0.2" /> <referenceRange> <observationRange> <text>0.2-1.0</text> </observationRange> </ referenceRange> </observation> </component> </organizer> </entry > <entry> <organizer moodCode="EVN" classCode="BATTERY"> <templateId root="840.1.516351.02.28.22.4.1" /> <id nullFlavor="NA" /> <code codeSystem="local" code="VGO005" displayName="XM (2) LRPC" /> <statusCode code="completed" /> <component> <observation moodCode="EVN" classCode="OBS"> <templateId root="06.27.840.1.116510.02.28.22.4.2" /> <id nullFlavor="NA" /> <code codeSystem="local" code="Uqw433" displayName="CROSSMATCH" /> <statusCode code="completed" /> < effectiveTime value="725874070565" /> <value unit="" xsi:type="PQ" value="COMPATIBLE X 2" /> <referenceRange> <observationRange > <text /> </observationRange> </referenceRange > </observation> </component> <component> <observation moodCode="EVN" classCode="OBS"> <templateId root= "06.27.840.1.356849.02.28.22.4.2" /> <id nullFlavor="NA" /> < code codeSystem="local" code="Res87" displayName="Hct" /> <statusCode code="completed" /> <effectiveTime value="399181145781" /> < value unit="%" xsi:type="PQ" value="26.9" /> <interpretationCode codeSystem="local" code="L" /> <referenceRange> < observationRange> <text>36.0-46.0</text> </ observationRange> </referenceRange> </observation> </ component> <component> <observation moodCode="EVN" classCode="OBS"> <templateId root="2.840.1.930056.10...4.2" /> <id nullFlavor="NA" /> <code codeSystem="local" code="Xep304" displayName= "Hgb" /> <statusCode code="completed" /> <effectiveTime value= "568777057660" /> <value unit="g/dL" xsi:type="PQ" value="7.6" /> <interpretationCode codeSystem="local" code="L" /> <referenceRange > <observationRange> <text>13.0-15.0</text> < /observationRange> </referenceRange> </observation> </ component> </organizer> </entry> <entry> <organizer moodCode="EVN" classCode="BATTERY"> <templateId root="06.27.840.1.506381.10..22.4.1" /> <id nullFlavor="NA" /> <code codeSystem="local" code="PEZ4011" displayName="Leukoreduced Packed RBC Unit Checkout" /> <statusCode code= "completed" /> <component> <observation moodCode="EVN" classCode= "OBS"> <templateId root="06.27.840.1.757410.10.20.22.4.2" /> < id nullFlavor="NA" /> <code codeSystem="local" code="Vws111" displayName="LRPRBC Checkout" /> <statusCode code="completed" /> <effectiveTime value="876223754763" /> <value unit="" xsi:type="PQ " value="Checked Out." /> <referenceRange> <observationRange > <text /> </observationRange> </referenceRange > </observation> </component> </organizer> </entry> <entry> <organizer moodCode="EVN" classCode="BATTERY"> <templateId root= "216.840.1.358075.10..22.4.1" /> <id nullFlavor="NA" /> <code codeSystem="local" code="MOP748" displayName="Ferritin" /> <statusCode code ="completed" /> <component> <observation moodCode="EVN" classCode= "OBS"> <templateId root="216.840.1.204829.10..22.4.2" /> < id nullFlavor="NA" /> <code codeSystem="local" code="Cdl849" displayName="Ferritin" /> <statusCode code="completed" /> < effectiveTime value="117866791722" /> <value unit="ng/mL" xsi:type="PQ " value="3.90" /> <interpretationCode codeSystem="local" code="L" /> <referenceRange> <observationRange> <text>4.63- 204.00</text> </observationRange> </referenceRange> < /observation> </component> </organizer> </entry> <entry> < organizer moodCode="EVN" classCode="BATTERY"> <templateId root= "16.840.1.925310.10..22.4.1" /> <id nullFlavor="NA" /> <code codeSystem="local" code="HAK193" displayName="VIT B-12" /> <statusCode code ="completed" /> <component> <observation moodCode="EVN" classCode= "OBS"> <templateId root="216.840.1.862591.10..22.4.2" /> < id nullFlavor="NA" /> <code codeSystem="local" code="Kow321" displayName="Vitamin B12" /> <statusCode code="completed" /> < effectiveTime value="412144728482" /> <value unit="pg/mL" xsi:type="PQ " value="221.00" /> <referenceRange> <observationRange> <text>213.00-816.00</text> </observationRange> </ referenceRange> </observation> </component> </organizer> </entry > <entry> <organizer moodCode="EVN" classCode="BATTERY"> <templateId root="216.840.1.603797.10..22.4.1" /> <id nullFlavor="NA" /> <code codeSystem="local" code="ETI729" displayName="Folate" /> <statusCode code= "completed" /> <component> <observation moodCode="EVN" classCode= "OBS"> <templateId root="216.840.1.196036.10..22.4.2" /> < id nullFlavor="NA" /> <code codeSystem="local" code="Aaa574" displayName="Folate" /> <statusCode code="completed" /> < effectiveTime value="662630919468" /> <value unit="ng/mL" xsi:type="PQ " value="15.40" /> <referenceRange> <observationRange> <text>7.00-31.40</text> </observationRange> </ referenceRange> </observation> </component> </organizer> </entry > <entry> <organizer moodCode="EVN" classCode="BATTERY"> <templateId root="216.840.1.449000.10..4.1" /> <id nullFlavor="NA" /> <code codeSystem="local" code="NCB4606" displayName="Leukoreduced Packed RBC Unit Checkout" /> <statusCode code="completed" /> <component> < observation moodCode="EVN" classCode="OBS"> <templateId root= "216.840.1.299523...4.2" /> <id nullFlavor="NA" /> < code codeSystem="local" code="Bfn460" displayName="LRPRBC Checkout" /> <statusCode code="completed" /> <effectiveTime value="478586620939" /> <value unit="" xsi:type="PQ" value="Checked Out." /> < referenceRange> <observationRange> <text /> < /observationRange> </referenceRange> </observation> </ component> </organizer> </entry> <entry> <organizer moodCode="EVN" classCode="BATTERY"> <templateId root="216.840.1.782056.10..4.1" /> <id nullFlavor="NA" /> <code codeSystem="local" code="HVZ754" displayName="Rapid Drug Screen,Medical" /> <statusCode code="completed" /> <component> <observation moodCode="EVN" classCode="OBS"> < templateId root="216.840.1.199567.10..4.2" /> <id nullFlavor="NA " /> <code codeSystem="local" code="Qle217" displayName="Amphetamine" / > <statusCode code="completed" /> <effectiveTime value= "263498654943" /> <value unit="" xsi:type="PQ" value="NEGATIVE" /> <referenceRange> <observationRange> <text>NEGATIVE </text> </observationRange> </referenceRange> </ observation> </component> <component> <observation moodCode= "EVN" classCode="OBS"> <templateId root="16.840.1.773059.02.28.22.4.2 " /> <id nullFlavor="NA" /> <code codeSystem="local" code= "Ssr398" displayName="Barbiturates" /> <statusCode code="completed" /> <effectiveTime value="012059827508" /> <value unit="" xsi: type="PQ" value="NEGATIVE" /> <referenceRange> < observationRange> <text>NEGATIVE</text> </ observationRange> </referenceRange> </observation> </ component> <component> <observation moodCode="EVN" classCode="OBS"> <templateId root="06.27.840.1.115947.02.28.22.4.2" /> <id nullFlavor="NA" /> <code codeSystem="local" code="Dvo853" displayName= "Benzodiazepines" /> <statusCode code="completed" /> < effectiveTime value="530917747457" /> <value unit="" xsi:type="PQ" value="NEGATIVE" /> <referenceRange> <observationRange> <text>NEGATIVE</text> </observationRange> </ referenceRange> </observation> </component> <component> <observation moodCode="EVN" classCode="OBS"> <templateId root= "16.840.1.691047.22.4.2" /> <id nullFlavor="NA" /> < code codeSystem="local" code="Nys894" displayName="Cocaine" /> < statusCode code="completed" /> <effectiveTime value="151863260551" /> <value unit="" xsi:type="PQ" value="NEGATIVE" /> < referenceRange> <observationRange> <text>NEGATIVE</text > </observationRange> </referenceRange> </observation > </component> <component> <observation moodCode="EVN" classCode="OBS"> <templateId root="16.840.1.343270.02.28.22.4.2" /> <id nullFlavor="NA" /> <code codeSystem="local" code="Kxj045" displayName="Marijuana" /> <statusCode code="completed" /> < effectiveTime value="739847936827" /> <value unit="" xsi:type="PQ" value="NEGATIVE" /> <referenceRange> <observationRange> <text>NEGATIVE</text> </observationRange> </ referenceRange> </observation> </component> <component> <observation moodCode="EVN" classCode="OBS"> <templateId root= "06.27.840.1.075031.02.28.22.4.2" /> <id nullFlavor="NA" /> < code codeSystem="local" code="Kxg984" displayName="Methylenedioxymethamphetamine " /> <statusCode code="completed" /> <effectiveTime value= "389719200598" /> <value unit="" xsi:type="PQ" value="NEGATIVE" /> <referenceRange> <observationRange> <text>NEGATIVE </text> </observationRange> </referenceRange> </ observation> </component> <component> <observation moodCode= "EVN" classCode="OBS"> <templateId root="16.840.1.703740.02.28.22.4.2 " /> <id nullFlavor="NA" /> <code codeSystem="local" code= "Vbk001" displayName="Opiates" /> <statusCode code="completed" /> <effectiveTime value="691050824852" /> <value unit="" xsi:type="PQ " value="NEGATIVE" /> <referenceRange> <observationRange> <text>NEGATIVE</text> </observationRange> </ referenceRange> </observation> </component> <component> <observation moodCode="EVN" classCode="OBS"> <templateId root= "06.27.840.1.602729.10.22.4.2" /> <id nullFlavor="NA" /> < code codeSystem="local" code="Czp360" displayName="Oxycodone" /> < statusCode code="completed" /> <effectiveTime value="626536688386" /> <value unit="" xsi:type="PQ" value="NEGATIVE" /> < referenceRange> <observationRange> <text>NEGATIVE</text > </observationRange> </referenceRange> </observation > </component> <component> <observation moodCode="EVN" classCode="OBS"> <templateId root="06.27.840.1.829269.10..4.2" /> <id nullFlavor="NA" /> <code codeSystem="local" code="Vob168" displayName="Phencyclidine" /> <statusCode code="completed" /> <effectiveTime value="779543517654" /> <value unit="" xsi:type="PQ" value="NEGATIVE" /> <referenceRange> <observationRange> <text>NEGATIVE</text> </observationRange> </ referenceRange> </observation> </component> <component> <observation moodCode="EVN" classCode="OBS"> <templateId root= "06.27.840.1.917183.4.2" /> <id nullFlavor="NA" /> < code codeSystem="local" code="Caw648" displayName="Propoxyphene" /> < statusCode code="completed" /> <effectiveTime value="233560944959" /> <value unit="" xsi:type="PQ" value="NEGATIVE" /> < referenceRange> <observationRange> <text>NEGATIVE</text > </observationRange> </referenceRange> </observation > </component> <component> <observation moodCode="EVN" classCode="OBS"> <templateId root="16.840.1.705142.02.28.224.2" /> <id nullFlavor="NA" /> <code codeSystem="local" code="Bss457" displayName="Tricyclic Antidepressant" /> <statusCode code="completed" /> <effectiveTime value="218954059066" /> <value unit="" xsi: type="PQ" value="NEGATIVE" /> <referenceRange> < observationRange> <text>NEGATIVE</text> </ observationRange> </referenceRange> </observation> </ component> </organizer> </entry> <entry> <organizer moodCode="EVN" classCode="BATTERY"> <templateId root="16.840.1.041629.02.28.22.4.1" /> <id nullFlavor="NA" /> <code codeSystem="local" code="ORD92" displayName="Surgical Pathology" /> <statusCode code="completed" /> < component> <observation moodCode="EVN" classCode="OBS"> < templateId root="16.840.1.045486.02.28.22.4.2" /> <id nullFlavor="NA " /> <code codeSystem="local" code="Elq7841" displayName="Surg Path" / > <statusCode code="completed" /> <effectiveTime value= "294955883342" /> <value unit="" xsi:type="PQ" value="Sent to [facility]" /> <referenceRange> <observationRange> <text /> </observationRange> </referenceRange> </ observation> </component> </organizer> </entry> <entry> <organizer moodCode="EVN" classCode="BATTERY"> <templateId root= "06.27.840.1.260869.10.22.4.1" /> <id nullFlavor="NA" /> <code codeSystem="local" code="GTV802" displayName="IFOBT Occult Blood" /> < statusCode code="completed" /> <component> <observation moodCode= "EVN" classCode="OBS"> <templateId root="06.27.840.1.585101.10..4.2 " /> <id nullFlavor="NA" /> <code codeSystem="local" code= "Gly598" displayName="IFOBT Occult Blood" /> <statusCode code= "completed" /> <effectiveTime value="463972908267" /> <value unit="" xsi:type="PQ" value="NEGATIVE" /> <referenceRange> < observationRange> <text>Negative</text> </ observationRange> </referenceRange> </observation> </ component> </organizer> </entry> <entry> <organizer moodCode="EVN" classCode="BATTERY"> <templateId root="06.27.840.1.499129.10...4.1" /> <id nullFlavor="NA" /> <code codeSystem="local" code="APP692" displayName="HH" /> <statusCode code="completed" /> <component> <observation moodCode="EVN" classCode="OBS"> <templateId root= "06.27.830.1.635812.10..22.4.2" /> <id nullFlavor="NA" /> < code codeSystem="local" code="Res87" displayName="Hct" /> <statusCode code="completed" /> <effectiveTime value="317388611219" /> < value unit="%" xsi:type="PQ" value="31.7" /> <interpretationCode codeSystem="local" code="L" /> <referenceRange> < observationRange> <text>36.0-46.0</text> </ observationRange> </referenceRange> </observation> </ component> <component> <observation moodCode="EVN" classCode="OBS"> <templateId root="06.27.840.1.407605.02.28.22.4.2" /> <id nullFlavor="NA" /> <code codeSystem="local" code="Tlu447" displayName= "Hgb" /> <statusCode code="completed" /> <effectiveTime value= "667604738865" /> <value unit="g/dL" xsi:type="PQ" value="9.4" /> <interpretationCode codeSystem="local" code="L" /> <referenceRange > <observationRange> <text>13.0-15.0</text> < /observationRange> </referenceRange> </observation> </ component> </organizer> </entry> <entry> <organizer moodCode="EVN" classCode="BATTERY"> <templateId root="216.840.1.392972.10.20.22.4.1" /> <id nullFlavor="NA" /> <code codeSystem="local" code="SAI554" displayName="IFOBT Occult Blood" /> <statusCode code="completed" /> < component> <observation moodCode="EVN" classCode="OBS"> < templateId root="216.840.1.262566.10..4.2" /> <id nullFlavor="NA " /> <code codeSystem="local" code="Qtu344" displayName="IFOBT Occult Blood" /> <statusCode code="completed" /> <effectiveTime value ="011221662542" /> <value unit="" xsi:type="PQ" value="NEGATIVE" /> <referenceRange> <observationRange> <text> Negative</text> </observationRange> </referenceRange> </observation> </component> </organizer> </entry> <entry> < organizer moodCode="EVN" classCode="BATTERY"> <templateId root= "16.840.1.147354.02.28.22.4.1" /> <id nullFlavor="NA" /> <code codeSystem="local" code="ORD2" displayName="CBC with Auto Diff" /> < statusCode code="completed" /> <component> <observation moodCode= "EVN" classCode="OBS"> <templateId root="216.840.1.494290.10..4.2 " /> <id nullFlavor="NA" /> <code codeSystem="local" code= "Sgi733" displayName="Baso%" /> <statusCode code="completed" /> <effectiveTime value="610209507147" /> <value unit="%" xsi: type="PQ" value="1.10" /> <referenceRange> <observationRange > <text>0.00-2.50</text> </observationRange> </ referenceRange> </observation> </component> <component> <observation moodCode="EVN" classCode="OBS"> <templateId root= "216.840.1.519034.10.4.2" /> <id nullFlavor="NA" /> < code codeSystem="local" code="Tgu969" displayName="Eos" /> <statusCode code="completed" /> <effectiveTime value="132677560687" /> < value unit="K/uL" xsi:type="PQ" value="0.3" /> <referenceRange> <observationRange> <text>0.0-0.7</text> </ observationRange> </referenceRange> </observation> </ component> <component> <observation moodCode="EVN" classCode="OBS"> <templateId root="2.16.840.1.285771.02.28.22.4.2" /> <id nullFlavor="NA" /> <code codeSystem="local" code="Yud332" displayName= "Eos%" /> <statusCode code="completed" /> <effectiveTime value="" /> <value unit="%" xsi:type="PQ" value="4.2" / > <referenceRange> <observationRange> <text>0.0 -7.0</text> </observationRange> </referenceRange> </ observation> </component> <component> <observation moodCode= "EVN" classCode="OBS"> <templateId root="2.16.840.1.403108.02.28.22.4.2 " /> <id nullFlavor="NA" /> <code codeSystem="local" code= "Res87" displayName="Hct" /> <statusCode code="completed" /> < effectiveTime value="603750779179" /> <value unit="%" xsi:type="PQ " value="34.3" /> <interpretationCode codeSystem="local" code="L" /> <referenceRange> <observationRange> <text>36.0- 46.0</text> </observationRange> </referenceRange> </ observation> </component> <component> <observation moodCode= "EVN" classCode="OBS"> <templateId root="216.840.1.435639.10.22.4.2 " /> <id nullFlavor="NA" /> <code codeSystem="local" code= "Uqp554" displayName="Hgb" /> <statusCode code="completed" /> <effectiveTime value="" /> <value unit="g/dL" xsi:type="PQ " value="10.5" /> <interpretationCode codeSystem="local" code="L" /> <referenceRange> <observationRange> <text>13.0- 15.0</text> </observationRange> </referenceRange> </ observation> </component> <component> <observation moodCode= "EVN" classCode="OBS"> <templateId root="216.840.1.473665.02.28.22.4.2 " /> <id nullFlavor="NA" /> <code codeSystem="local" code= "Zye216" displayName="Lym" /> <statusCode code="completed" /> <effectiveTime value="437365741186" /> <value unit="K/uL" xsi:type="PQ " value="1.98" /> <referenceRange> <observationRange> <text>0.60-3.40</text> </observationRange> </ referenceRange> </observation> </component> <component> <observation moodCode="EVN" classCode="OBS"> <templateId root= "216.840.1.440247.10.2022.4.2" /> <id nullFlavor="NA" /> < code codeSystem="local" code="Oll347" displayName="Lym%" /> < statusCode code="completed" /> <effectiveTime value="439136075270" /> <value unit="%" xsi:type="PQ" value="26.9" /> < referenceRange> <observationRange> <text>10.0-50.0</text > </observationRange> </referenceRange> </observation > </component> <component> <observation moodCode="EVN" classCode="OBS"> <templateId root="2.16.840.1.009593.10..22.4.2" /> <id nullFlavor="NA" /> <code codeSystem="local" code="Res89" displayName="MCH" /> <statusCode code="completed" /> < effectiveTime value="464297257319" /> <value unit="pg" xsi:type="PQ" value="22.5" /> <interpretationCode codeSystem="local" code="L" /> <referenceRange> <observationRange> <text>27.0- 31.0</text> </observationRange> </referenceRange> </ observation> </component> <component> <observation moodCode= "EVN" classCode="OBS"> <templateId root="216.840.1.055869.10.20.22.4.2 " /> <id nullFlavor="NA" /> <code codeSystem="local" code= "Res90" displayName="MCHC" /> <statusCode code="completed" /> <effectiveTime value="459940080897" /> <value unit="g/dL" xsi:type="PQ " value="30.6" /> <interpretationCode codeSystem="local" code="L" /> <referenceRange> <observationRange> <text>32.0- 36.0</text> </observationRange> </referenceRange> </ observation> </component> <component> <observation moodCode= "EVN" classCode="OBS"> <templateId root="16.840.1.219256.10.20.22.4.2 " /> <id nullFlavor="NA" /> <code codeSystem="local" code= "Res88" displayName="MCV" /> <statusCode code="completed" /> < effectiveTime value="" /> <value unit="fL" xsi:type="PQ" value="73.4" /> <interpretationCode codeSystem="local" code="L" /> <referenceRange> <observationRange> <text>80.0- 97.0</text> </observationRange> </referenceRange> </ observation> </component> <component> <observation moodCode= "EVN" classCode="OBS"> <templateId root="06.27.840.1.257972.10.22.4.2 " /> <id nullFlavor="NA" /> <code codeSystem="local" code= "Vcm732" displayName="Kittson%" /> <statusCode code="completed" /> <effectiveTime value="" /> <value unit="%" xsi: type="PQ" value="7.6" /> <referenceRange> <observationRange > <text>0.0-12.0</text> </observationRange> </ referenceRange> </observation> </component> <component> <observation moodCode="EVN" classCode="OBS"> <templateId root= "06.27.840.1.003243.10..22.4.2" /> <id nullFlavor="NA" /> < code codeSystem="local" code="Asd788" displayName="MPV" /> <statusCode code="completed" /> <effectiveTime value="" /> < value unit="fL" xsi:type="PQ" value="11.1" /> <interpretationCode codeSystem="local" code="H" /> <referenceRange> < observationRange> <text>7.4-10.0</text> </ observationRange> </referenceRange> </observation> </ component> <component> <observation moodCode="EVN" classCode="OBS"> <templateId root="216.840.1.025539.10.20.22.4.2" /> <id nullFlavor="NA" /> <code codeSystem="local" code="Jvu042" displayName= "Julianne%" /> <statusCode code="completed" /> <effectiveTime value="952187655408" /> <value unit="%" xsi:type="PQ" value="60.2" /> <referenceRange> <observationRange> <text> 37.0-80.0</text> </observationRange> </referenceRange> </observation> </component> <component> <observation moodCode="EVN" classCode="OBS"> <templateId root= "06.27.840.1.504861.1022.4.2" /> <id nullFlavor="NA" /> < code codeSystem="local" code="Res97" displayName="Plt" /> <statusCode code="completed" /> <effectiveTime value="175034218619" /> < value unit="K/uL" xsi:type="PQ" value="222" /> <referenceRange> <observationRange> <text>150-400</text> </ observationRange> </referenceRange> </observation> </ component> <component> <observation moodCode="EVN" classCode="OBS"> <templateId root="16.840.1.873602.10.20.22.4.2" /> <id nullFlavor="NA" /> <code codeSystem="local" code="Ctk362" displayName= "RBC" /> <statusCode code="completed" /> <effectiveTime value= "301164831229" /> <value unit="M/uL" xsi:type="PQ" value="4.67" /> <referenceRange> <observationRange> <text>3.60- 5.00</text> </observationRange> </referenceRange> </ observation> </component> <component> <observation moodCode= "EVN" classCode="OBS"> <templateId root="2.16.840.1.720442.10.20.22.4.2 " /> <id nullFlavor="NA" /> <code codeSystem="local" code= "Res91" displayName="RDW" /> <statusCode code="completed" /> < effectiveTime value="002618469869" /> <value unit="%" xsi:type="PQ " value="22.7" /> <interpretationCode codeSystem="local" code="H" /> <referenceRange> <observationRange> <text>11.6- 14.8</text> </observationRange> </referenceRange> </ observation> </component> <component> <observation moodCode= "EVN" classCode="OBS"> <templateId root="2.16.840.1.875298.10.20.22.4.2 " /> <id nullFlavor="NA" /> <code codeSystem="local" code= "Res98" displayName="WBC" /> <statusCode code="completed" /> < effectiveTime value="334820033631" /> <value unit="K/uL" xsi:type="PQ" value="7.36" /> <referenceRange> <observationRange> <text>5.00-10.00</text> </observationRange> </ referenceRange> </observation> </component> <component> <observation moodCode="EVN" classCode="OBS"> <templateId root= "16.840.1.192032.10.2022.4.2" /> <id nullFlavor="NA" /> < code codeSystem="local" code="Res99" displayName="Julianne" /> <statusCode code="completed" /> <effectiveTime value="" /> < value unit="K/uL" xsi:type="PQ" value="4.43" /> <referenceRange> <observationRange> <text>2.00-6.90</text> </ observationRange> </referenceRange> </observation> </ component> <component> <observation moodCode="EVN" classCode="OBS"> <templateId root="06.27.840.1.038291.22.4.2" /> <id nullFlavor="NA" /> <code codeSystem="local" code="Bib565" displayName= "Kittson" /> <statusCode code="completed" /> <effectiveTime value ="" /> <value unit="K/uL" xsi:type="PQ" value="0.6" /> <referenceRange> <observationRange> <text>0.0-0.9< /text> </observationRange> </referenceRange> </ observation> </component> <component> <observation moodCode= "EVN" classCode="OBS"> <templateId root="06.27.840.1.760608.102022.4.2 " /> <id nullFlavor="NA" /> <code codeSystem="local" code= "Ivy244" displayName="Baso" /> <statusCode code="completed" /> <effectiveTime value="" /> <value unit="K/uL" xsi:type= "PQ" value="0.1" /> <referenceRange> <observationRange> <text>0.0-0.2</text> </observationRange> </ referenceRange> </observation> </component> </organizer> </entry > <entry> <organizer moodCode="EVN" classCode="BATTERY"> <templateId root="216.840.1.950835.10..22.4.1" /> <id nullFlavor="NA" /> <code codeSystem="local" code="37241-4" displayName="Complete urinalysis with reflex to culture" /> <statusCode code="completed" /> <component> < observation moodCode="EVN" classCode="OBS"> <templateId root= "216.840.1.585058.10...4.2" /> <id nullFlavor="NA" /> < code codeSystem="local" code="5778-6" displayName="Urine color determination" / > <statusCode code="completed" /> <effectiveTime value= "281749785041" /> <value unit="" xsi:type="PQ" value="YELLOW" /> <referenceRange> <observationRange> <text>NRG</text > </observationRange> </referenceRange> </observation > </component> <component> <observation moodCode="EVN" classCode="OBS"> <templateId root="216.840.1.955513.10..22.4.2" /> <id nullFlavor="NA" /> <code codeSystem="local" code="68829-8 " displayName="Urine clarity determination" /> <statusCode code= "completed" /> <effectiveTime value="029567756140" /> <value unit="" xsi:type="PQ" value="SLIGHTLY CLOUDY" /> <referenceRange> <observationRange> <text>NRG</text> </ observationRange> </referenceRange> </observation> </ component> <component> <observation moodCode="EVN" classCode="OBS"> <templateId root="216.840.1.716661.10.20.22.4.2" /> <id nullFlavor="NA" /> <code codeSystem="local" code="5803-2" displayName= "Urine pH measurement by test strip" /> <statusCode code="completed" / > <effectiveTime value="277676901008" /> <value unit="" xsi: type="PQ" value="6.5" /> <referenceRange> <observationRange > <text>5-9</text> </observationRange> </ referenceRange> </observation> </component> <component> <observation moodCode="EVN" classCode="OBS"> <templateId root= "216.840.1.068303.10..22.4.2" /> <id nullFlavor="NA" /> < code codeSystem="local" code="5811-5" displayName="Specific gravity of urine by test strip" /> <statusCode code="completed" /> <effectiveTime value="465639524797" /> <value unit="" xsi:type="PQ" value="1.020" /> <referenceRange> <observationRange> <text>1.016 -1.022</text> </observationRange> </referenceRange> < /observation> </component> <component> <observation moodCode= "EVN" classCode="OBS"> <templateId root="16.840.1.386693.10.20.22.4.2 " /> <id nullFlavor="NA" /> <code codeSystem="local" code= "49559-9" displayName="Urine protein assay by test strip, semi-quantitative" /> <statusCode code="completed" /> <effectiveTime value= "475078566055" /> <value unit="" xsi:type="PQ" value="NEGATIVE" /> <referenceRange> <observationRange> <text>NEGATIVE </text> </observationRange> </referenceRange> </ observation> </component> <component> <observation moodCode= "EVN" classCode="OBS"> <templateId root="06.27.840.1.043885.10.20.22.4.2 " /> <id nullFlavor="NA" /> <code codeSystem="local" code= "08760-3" displayName="Urine glucose detection by automated test strip" /> <statusCode code="completed" /> <effectiveTime value="738096985825 " /> <value unit="" xsi:type="PQ" value="NEGATIVE" /> < referenceRange> <observationRange> <text>NEGATIVE</text > </observationRange> </referenceRange> </observation > </component> <component> <observation moodCode="EVN" classCode="OBS"> <templateId root="06.27.840.1.706440.10.22.4.2" /> <id nullFlavor="NA" /> <code codeSystem="local" code="01446-9 " displayName="Erythrocytes detection in urine sediment by light microscopy" /> <statusCode code="completed" /> <effectiveTime value= "620583252740" /> <value unit="" xsi:type="PQ" value="1+" /> < interpretationCode codeSystem="local" code="*" /> <referenceRange> <observationRange> <text>NEGATIVE</text> </ observationRange> </referenceRange> </observation> </ component> <component> <observation moodCode="EVN" classCode="OBS"> <templateId root="06.27.840.1.461457.10.20.22.4.2" /> <id nullFlavor="NA" /> <code codeSystem="local" code="71624-0" displayName= "Urine ketones detection by automated test strip" /> <statusCode code= "completed" /> <effectiveTime value="420936205276" /> <value unit="" xsi:type="PQ" value="NEGATIVE" /> <referenceRange> < observationRange> <text>NEGATIVE</text> </ observationRange> </referenceRange> </observation> </ component> <component> <observation moodCode="EVN" classCode="OBS"> <templateId root="216.840.1.378132.10..22.4.2" /> <id nullFlavor="NA" /> <code codeSystem="local" code="5802-4" displayName= "Urine nitrite detection by test strip" /> <statusCode code="completed " /> <effectiveTime value="342884061490" /> <value unit="" xsi :type="PQ" value="NEGATIVE" /> <referenceRange> < observationRange> <text>NEGATIVE</text> </ observationRange> </referenceRange> </observation> </ component> <component> <observation moodCode="EVN" classCode="OBS"> <templateId root="16.840.1.314172.10..22.4.2" /> <id nullFlavor="NA" /> <code codeSystem="local" code="5770-3" displayName= "Urine total bilirubin detection by test strip" /> <statusCode code= "completed" /> <effectiveTime value="109244479023" /> <value unit="" xsi:type="PQ" value="NEGATIVE" /> <referenceRange> < observationRange> <text>NEGATIVE</text> </ observationRange> </referenceRange> </observation> </ component> <component> <observation moodCode="EVN" classCode="OBS"> <templateId root="216.840.1.707256.10..4.2" /> <id nullFlavor="NA" /> <code codeSystem="local" code="55988-5" displayName= "Urine urobilinogen measurement by automated test strip (mass/volume)" /> <statusCode code="completed" /> <effectiveTime value="083051072257 " /> <value unit="" xsi:type="PQ" value="NORMAL" /> < referenceRange> <observationRange> <text>NORMAL</text> </observationRange> </referenceRange> </observation> </component> <component> <observation moodCode="EVN" classCode ="OBS"> <templateId root="2.16.840.1.666644.10.4.2" /> < id nullFlavor="NA" /> <code codeSystem="local" code="5799-2" displayName="Urine leukocyte esterase detection by dipstick" /> < statusCode code="completed" /> <effectiveTime value="374670337105" /> <value unit="" xsi:type="PQ" value="NEGATIVE" /> < referenceRange> <observationRange> <text>NEGATIVE</text > </observationRange> </referenceRange> </observation > </component> <component> <observation moodCode="EVN" classCode="OBS"> <templateId root="2.16.840.1.809808.10.4.2" /> <id nullFlavor="NA" /> <code codeSystem="local" code="81832-0 " displayName="Automated urine sediment erythrocyte count by microscopy (number/ high power field)" /> <statusCode code="completed" /> < effectiveTime value="596876498354" /> <value unit="[HPF]" xsi:type="PQ " value="" /> <referenceRange> <observationRange> <text>NRG</text> </observationRange> </referenceRange> </observation> </component> <component> <observation moodCode="EVN" classCode="OBS"> <templateId root= "216.840.1.652320.10..22.4.2" /> <id nullFlavor="NA" /> < code codeSystem="local" code="5821-4" displayName="Automated urine sediment leukocyte count by microscopy (number/high power field)" /> < statusCode code="completed" /> <effectiveTime value="828365121777" /> <value unit="" xsi:type="PQ" value="NONE" /> <referenceRange> <observationRange> <text>NRG</text> </ observationRange> </referenceRange> </observation> </ component> <component> <observation moodCode="EVN" classCode="OBS"> <templateId root="216.840.1.810668.10..4.2" /> <id nullFlavor="NA" /> <code codeSystem="local" code="08428-9" displayName= "Bacteria detection in urine sediment by light microscopy" /> < statusCode code="completed" /> <effectiveTime value="299605884820" /> <value unit="" xsi:type="PQ" value="TRACE" /> <referenceRange > <observationRange> <text>NRG</text> </ observationRange> </referenceRange> </observation> </ component> <component> <observation moodCode="EVN" classCode="OBS"> <templateId root="216.840.1.043353.10..22.4.2" /> <id nullFlavor="NA" /> <code codeSystem="local" code="68701-7" displayName= "Squamous epithelial cells detection in urine sediment by light microscopy" /> <statusCode code="completed" /> <effectiveTime value= "522229888717" /> <value unit="" xsi:type="PQ" value="5-10" /> <referenceRange> <observationRange> <text>NRG</text> </observationRange> </referenceRange> </observation> </component> <component> <observation moodCode="EVN" classCode ="OBS"> <templateId root="216.840.1.777698.10.20.22.4.2" /> < id nullFlavor="NA" /> <code codeSystem="local" code="14296-3" displayName="Crystals detection in urine sediment by light microscopy" /> <statusCode code="completed" /> <effectiveTime value="201744133397 " /> <value unit="" xsi:type="PQ" value="PRESENT" /> < interpretationCode codeSystem="local" code="*" /> <referenceRange> <observationRange> <text>NRG</text> </ observationRange> </referenceRange> </observation> </ component> <component> <observation moodCode="EVN" classCode="OBS"> <templateId root="06.27.840.1.282256.02.28.22.4.2" /> <id nullFlavor="NA" /> <code codeSystem="local" code="27344-4" displayName= "Casts detection in urine sediment by light microscopy" /> <statusCode code="completed" /> <effectiveTime value="252201663747" /> < value unit="" xsi:type="PQ" value="NONE" /> <referenceRange> <observationRange> <text>NRG</text> </observationRange > </referenceRange> </observation> </component> < component> <observation moodCode="EVN" classCode="OBS"> < templateId root="16.840.1.939356.10.20.22.4.2" /> <id nullFlavor="NA " /> <code codeSystem="local" code="8247-9" displayName="Mucus detection in urine sediment by light microscopy" /> <statusCode code= "completed" /> <effectiveTime value="943536761012" /> <value unit="" xsi:type="PQ" value="SMALL" /> <interpretationCode codeSystem= "local" code="*" /> <referenceRange> <observationRange> <text>NRG</text> </observationRange> </ referenceRange> </observation> </component> <component> <observation moodCode="EVN" classCode="OBS"> <templateId root= "2.16.840.1.939205.10..22.4.2" /> <id nullFlavor="NA" /> < code codeSystem="local" code="51725-9" displayName="Complete urinalysis with reflex to culture" /> <statusCode code="completed" /> < effectiveTime value="777849641651" /> <value unit="" xsi:type="PQ" value="NO" /> <referenceRange> <observationRange> <text>NRG</text> </observationRange> </referenceRange> </observation> </component> <component> <observation moodCode="EVN" classCode="OBS"> <templateId root= "2.16.840.1.081915.10..22.4.2" /> <id nullFlavor="NA" /> < code codeSystem="local" code="8246-1" displayName="Amorphous sediment detection in urine sediment by light microscopy" /> <statusCode code="completed" /> <effectiveTime value="714255408850" /> <value unit="" xsi: type="PQ" value="FEW RAMIRO URATES" /> <interpretationCode codeSystem= "local" code="*" /> <referenceRange> <observationRange> <text>NRG</text> </observationRange> </ referenceRange> </observation> </component> </organizer> </entry > <entry> <organizer moodCode="EVN" classCode="BATTERY"> <templateId root="2.16.840.1.352979.10..22.4.1" /> <id nullFlavor="NA" /> <code codeSystem="local" code="87449-7" displayName="Urine drug screening test" /> <statusCode code="completed" /> <component> <observation moodCode ="EVN" classCode="OBS"> <templateId root= "2.16.840.1.131071.10..22.4.2" /> <id nullFlavor="NA" /> < code codeSystem="local" code="54502-1" displayName="Urine phencyclidine detection by screening method" /> <statusCode code="completed" /> <effectiveTime value="459136615210" /> <value unit="" xsi:type="PQ " value="NEGATIVE" /> <referenceRange> <observationRange> <text>NEGATIVE</text> </observationRange> </ referenceRange> </observation> </component> <component> <observation moodCode="EVN" classCode="OBS"> <templateId root= "2.16.840.1.904922.10..22.4.2" /> <id nullFlavor="NA" /> < code codeSystem="local" code="11550-7" displayName="Urine benzodiazepines detection by screening method" /> <statusCode code="completed" /> <effectiveTime value="035889961221" /> <value unit="" xsi:type="PQ " value="NEGATIVE" /> <referenceRange> <observationRange> <text>NEGATIVE</text> </observationRange> </ referenceRange> </observation> </component> <component> <observation moodCode="EVN" classCode="OBS"> <templateId root= "2.16.840.1.478926.10..22.4.2" /> <id nullFlavor="NA" /> < code codeSystem="local" code="3397-7" displayName="Urine cocaine detection" /> <statusCode code="completed" /> <effectiveTime value= "628837782828" /> <value unit="" xsi:type="PQ" value="NEGATIVE" /> <referenceRange> <observationRange> <text>NEGATIVE </text> </observationRange> </referenceRange> </ observation> </component> <component> <observation moodCode= "EVN" classCode="OBS"> <templateId root="2.16.840.1.758640.10..4.2 " /> <id nullFlavor="NA" /> <code codeSystem="local" code= "33769-6" displayName="Urine amphetamines detection by screening method" /> <statusCode code="completed" /> <effectiveTime value= "325584565242" /> <value unit="" xsi:type="PQ" value="NEGATIVE" /> <referenceRange> <observationRange> <text>NEGATIVE </text> </observationRange> </referenceRange> </ observation> </component> <component> <observation moodCode= "EVN" classCode="OBS"> <templateId root="216.840.1.528596.10.22.4.2 " /> <id nullFlavor="NA" /> <code codeSystem="local" code= "14547-1" displayName="Urine methamphetamine detection by screening method" /> <statusCode code="completed" /> <effectiveTime value= "739109950466" /> <value unit="" xsi:type="PQ" value="NEGATIVE" /> <referenceRange> <observationRange> <text>NEGATIVE </text> </observationRange> </referenceRange> </ observation> </component> <component> <observation moodCode= "EVN" classCode="OBS"> <templateId root="2.16.840.1.073074.10..22.4.2 " /> <id nullFlavor="NA" /> <code codeSystem="local" code= "15241-2" displayName="Urine cannabinoids detection by screening method" /> <statusCode code="completed" /> <effectiveTime value= "675018037459" /> <value unit="" xsi:type="PQ" value="NEGATIVE" /> <referenceRange> <observationRange> <text>NEGATIVE </text> </observationRange> </referenceRange> </ observation> </component> <component> <observation moodCode= "EVN" classCode="OBS"> <templateId root="216.840.1.869386.10..4.2 " /> <id nullFlavor="NA" /> <code codeSystem="local" code= "87882-8" displayName="Urine opiates detection by screening method" /> <statusCode code="completed" /> <effectiveTime value="608713575102" /> <value unit="" xsi:type="PQ" value="NEGATIVE" /> < referenceRange> <observationRange> <text>NEGATIVE</text > </observationRange> </referenceRange> </observation > </component> <component> <observation moodCode="EVN" classCode="OBS"> <templateId root="216.840.1.256260.10..22.4.2" /> <id nullFlavor="NA" /> <code codeSystem="local" code="3377-9" displayName="Urine barbiturates detection" /> <statusCode code= "completed" /> <effectiveTime value="756025909002" /> <value unit="" xsi:type="PQ" value="NEGATIVE" /> <referenceRange> < observationRange> <text>NEGATIVE</text> </ observationRange> </referenceRange> </observation> </ component> <component> <observation moodCode="EVN" classCode="OBS"> <templateId root="216.840.1.129600.10.20.22.4.2" /> <id nullFlavor="NA" /> <code codeSystem="local" code="94387-9" displayName= "Screening urine tricyclic antidepressants detection" /> <statusCode code="completed" /> <effectiveTime value="018988907330" /> < value unit="" xsi:type="PQ" value="NEGATIVE" /> <referenceRange> <observationRange> <text>NEGATIVE</text> </ observationRange> </referenceRange> </observation> </ component> <component> <observation moodCode="EVN" classCode="OBS"> <templateId root="06.27.840.1.028987.10.22.4.2" /> <id nullFlavor="NA" /> <code codeSystem="local" code="50983-2" displayName= "Urine methadone detection by screening method" /> <statusCode code= "completed" /> <effectiveTime value="454255469663" /> <value unit="" xsi:type="PQ" value="NEGATIVE" /> <referenceRange> < observationRange> <text>NEGATIVE</text> </ observationRange> </referenceRange> </observation> </ component> <component> <observation moodCode="EVN" classCode="OBS"> <templateId root="06.27.840.1.613129.10.2022.4.2" /> <id nullFlavor="NA" /> <code codeSystem="local" code="78639-1" displayName= "Urine oxycodone detection" /> <statusCode code="completed" /> <effectiveTime value="350125222801" /> <value unit="" xsi:type="PQ" value="NEGATIVE" /> <referenceRange> <observationRange> <text>NEGATIVE</text> </observationRange> </ referenceRange> </observation> </component> <component> <observation moodCode="EVN" classCode="OBS"> <templateId root= "216.840.1.092386.10..4.2" /> <id nullFlavor="NA" /> < code codeSystem="local" code="40170-7" displayName="Urine propoxyphene detection " /> <statusCode code="completed" /> <effectiveTime value= "025547847986" /> <value unit="" xsi:type="PQ" value="NEGATIVE" /> <referenceRange> <observationRange> <text>NEGATIVE </text> </observationRange> </referenceRange> </ observation> </component> </organizer> </entry> <entry> <organizer moodCode="EVN" classCode="BATTERY"> <templateId root= "216.840.1.998799.10..4.1" /> <id nullFlavor="NA" /> <code codeSystem="local" code="32960-1" displayName="Complete blood count (CBC) with automated white blood cell (WBC) differential" /> <statusCode code= "completed" /> <component> <observation moodCode="EVN" classCode= "OBS"> <templateId root="2.16.840.1.134612.10..22.4.2" /> < id nullFlavor="NA" /> <code codeSystem="local" code="6690-2" displayName="Blood leukocytes automated count (number/volume)" /> < statusCode code="completed" /> <effectiveTime value="397831426353" /> <value unit="10*3/uL" xsi:type="PQ" value="5.5" /> < referenceRange> <observationRange> <text>4.3-11.0</text > </observationRange> </referenceRange> </observation > </component> <component> <observation moodCode="EVN" classCode="OBS"> <templateId root="2.16.840.1.969250.10..22.4.2" /> <id nullFlavor="NA" /> <code codeSystem="local" code="789-8" displayName="Blood erythrocytes automated count (number/volume)" /> < statusCode code="completed" /> <effectiveTime value="191403142464" /> <value unit="10*6/uL" xsi:type="PQ" value="4.20" /> < interpretationCode codeSystem="local" code="" /> <referenceRange> <observationRange> <text>4.35-5.85</text> </ observationRange> </referenceRange> </observation> </ component> <component> <observation moodCode="EVN" classCode="OBS"> <templateId root="2.16.840.1.456332.10..22.4.2" /> <id nullFlavor="NA" /> <code codeSystem="local" code="76927-7" displayName= "Venous blood hemoglobin measurement (mass/volume)" /> <statusCode code ="completed" /> <effectiveTime value="979999641717" /> <value unit="g/dL" xsi:type="PQ" value="9.7" /> <interpretationCode codeSystem ="local" code="" /> <referenceRange> <observationRange> <text>11.5-16.0</text> </observationRange> </ referenceRange> </observation> </component> <component> <observation moodCode="EVN" classCode="OBS"> <templateId root= "216.840.1.377134.10..22.4.2" /> <id nullFlavor="NA" /> < code codeSystem="local" code="75136-5" displayName="Blood hematocrit (volume fraction)" /> <statusCode code="completed" /> <effectiveTime value="132909888992" /> <value unit="%" xsi:type="PQ" value="31" / > <interpretationCode codeSystem="local" code="" /> < referenceRange> <observationRange> <text>35-52</text> </observationRange> </referenceRange> </observation> </component> <component> <observation moodCode="EVN" classCode= "OBS"> <templateId root="06.27.840.1.024617.02.28.22.4.2" /> < id nullFlavor="NA" /> <code codeSystem="local" code="787-2" displayName ="Automated erythrocyte mean corpuscular volume" /> <statusCode code= "completed" /> <effectiveTime value="056467953659" /> <value unit="[foz_us]" xsi:type="PQ" value="74" /> <interpretationCode codeSystem="local" code="" /> <referenceRange> < observationRange> <text>80-99</text> </observationRange > </referenceRange> </observation> </component> < component> <observation moodCode="EVN" classCode="OBS"> < templateId root="06.27.840.1.292663.10.20.22.4.2" /> <id nullFlavor="NA " /> <code codeSystem="local" code="785-6" displayName="Automated erythrocyte mean corpuscular hemoglobin (mass per erythrocyte)" /> < statusCode code="completed" /> <effectiveTime value="467061005125" /> <value unit="pg" xsi:type="PQ" value="23" /> < interpretationCode codeSystem="local" code="" /> <referenceRange> <observationRange> <text>25-34</text> </ observationRange> </referenceRange> </observation> </ component> <component> <observation moodCode="EVN" classCode="OBS"> <templateId root="216.840.1.766544.10.20.22.4.2" /> <id nullFlavor="NA" /> <code codeSystem="local" code="786-4" displayName= "Automated erythrocyte mean corpuscular hemoglobin concentration measurement ( mass/volume)" /> <statusCode code="completed" /> < effectiveTime value="506717993290" /> <value unit="g/dL" xsi:type="PQ" value="31" /> <interpretationCode codeSystem="local" code="" /> <referenceRange> <observationRange> <text>32-36</ text> </observationRange> </referenceRange> </ observation> </component> <component> <observation moodCode= "EVN" classCode="OBS"> <templateId root="216.840.1.157926.10.20.22.4.2 " /> <id nullFlavor="NA" /> <code codeSystem="local" code="788 -0" displayName="Automated erythrocyte distribution width ratio" /> < statusCode code="completed" /> <effectiveTime value="536820112517" /> <value unit="%" xsi:type="PQ" value="21.6" /> < interpretationCode codeSystem="local" code="" /> <referenceRange> <observationRange> <text>10.0-14.5</text> </ observationRange> </referenceRange> </observation> </ component> <component> <observation moodCode="EVN" classCode="OBS"> <templateId root="216.840.1.912892.10.20.22.4.2" /> <id nullFlavor="NA" /> <code codeSystem="local" code="777-3" displayName= "Automated blood platelet count (count/volume)" /> <statusCode code= "completed" /> <effectiveTime value="151725739281" /> <value unit="10*3/uL" xsi:type="PQ" value="181" /> <referenceRange> <observationRange> <text>130-400</text> </ observationRange> </referenceRange> </observation> </ component> <component> <observation moodCode="EVN" classCode="OBS"> <templateId root="216.840.1.239193.10.22.4.2" /> <id nullFlavor="NA" /> <code codeSystem="local" code="96669-9" displayName= "Automated blood platelet mean volume measurement" /> <statusCode code= "completed" /> <effectiveTime value="365096766847" /> <value unit="[foz_us]" xsi:type="PQ" value="11.2" /> <interpretationCode codeSystem="local" code="" /> <referenceRange> < observationRange> <text>7.4-10.4</text> </ observationRange> </referenceRange> </observation> </ component> <component> <observation moodCode="EVN" classCode="OBS"> <templateId root="2.16.840.1.011250.10.20.22.4.2" /> <id nullFlavor="NA" /> <code codeSystem="local" code="770-8" displayName= "Automated blood neutrophils/100 leukocytes" /> <statusCode code= "completed" /> <effectiveTime value="786631081643" /> <value unit="%" xsi:type="PQ" value="51" /> <referenceRange> < observationRange> <text>42-75</text> </observationRange > </referenceRange> </observation> </component> < component> <observation moodCode="EVN" classCode="OBS"> < templateId root="2.16.840.1.026054.10..22.4.2" /> <id nullFlavor="NA " /> <code codeSystem="local" code="736-9" displayName="Automated blood lymphocytes/100 leukocytes" /> <statusCode code="completed" /> <effectiveTime value="764657633130" /> <value unit="%" xsi: type="PQ" value="31" /> <referenceRange> <observationRange> <text>12-44</text> </observationRange> </ referenceRange> </observation> </component> <component> <observation moodCode="EVN" classCode="OBS"> <templateId root= "216.840.1.063694.10...4.2" /> <id nullFlavor="NA" /> < code codeSystem="local" code="31500-7" displayName="Blood monocytes/100 leukocytes" /> <statusCode code="completed" /> <effectiveTime value="602545891667" /> <value unit="%" xsi:type="PQ" value="11" / > <referenceRange> <observationRange> <text>0- 12</text> </observationRange> </referenceRange> </ observation> </component> <component> <observation moodCode= "EVN" classCode="OBS"> <templateId root="2.16.840.1.449193.10.4.2 " /> <id nullFlavor="NA" /> <code codeSystem="local" code="713 -8" displayName="Automated blood eosinophils/100 leukocytes" /> < statusCode code="completed" /> <effectiveTime value="409233684309" /> <value unit="%" xsi:type="PQ" value="6" /> <referenceRange > <observationRange> <text>0-10</text> </ observationRange> </referenceRange> </observation> </ component> <component> <observation moodCode="EVN" classCode="OBS"> <templateId root="2.16.840.1.328935.02.28.22.4.2" /> <id nullFlavor="NA" /> <code codeSystem="local" code="706-2" displayName= "Automated blood basophils/100 leukocytes" /> <statusCode code= "completed" /> <effectiveTime value="515701838074" /> <value unit="%" xsi:type="PQ" value="1" /> <referenceRange> < observationRange> <text>0-10</text> </observationRange> </referenceRange> </observation> </component> < component> <observation moodCode="EVN" classCode="OBS"> < templateId root="2.16.840.1.213024.02.28.22.4.2" /> <id nullFlavor="NA " /> <code codeSystem="local" code="751-8" displayName="Blood neutrophils automated count (number/volume)" /> <statusCode code= "completed" /> <effectiveTime value="362649270576" /> <value unit="10*3" xsi:type="PQ" value="2.8" /> <referenceRange> < observationRange> <text>1.8-7.8</text> </ observationRange> </referenceRange> </observation> </ component> <component> <observation moodCode="EVN" classCode="OBS"> <templateId root="2.16.840.1.271501.10.20.22.4.2" /> <id nullFlavor="NA" /> <code codeSystem="local" code="731-0" displayName= "Blood lymphocytes automated count (number/volume)" /> <statusCode code ="completed" /> <effectiveTime value="591157721628" /> <value unit="10*3" xsi:type="PQ" value="1.7" /> <referenceRange> < observationRange> <text>1.0-4.0</text> </ observationRange> </referenceRange> </observation> </ component> <component> <observation moodCode="EVN" classCode="OBS"> <templateId root="216.840.1.641679.22.4.2" /> <id nullFlavor="NA" /> <code codeSystem="local" code="742-7" displayName= "Blood monocytes automated count (number/volume)" /> <statusCode code= "completed" /> <effectiveTime value="019147184376" /> <value unit="10*3" xsi:type="PQ" value="0.6" /> <referenceRange> < observationRange> <text>0.0-1.0</text> </ observationRange> </referenceRange> </observation> </ component> <component> <observation moodCode="EVN" classCode="OBS"> <templateId root="216.840.1.747471.10.2022.4.2" /> <id nullFlavor="NA" /> <code codeSystem="local" code="711-2" displayName= "Automated eosinophil count" /> <statusCode code="completed" /> <effectiveTime value="206537453003" /> <value unit="10*3/uL" xsi: type="PQ" value="0.3" /> <referenceRange> <observationRange > <text>0.0-0.3</text> </observationRange> </ referenceRange> </observation> </component> <component> <observation moodCode="EVN" classCode="OBS"> <templateId root= "216.840.1.881028.10..22.4.2" /> <id nullFlavor="NA" /> < code codeSystem="local" code="704-7" displayName="Automated blood basophil count (count/volume)" /> <statusCode code="completed" /> < effectiveTime value="186793284477" /> <value unit="10*3/uL" xsi:type= "PQ" value="0.0" /> <referenceRange> <observationRange> <text>0.0-0.1</text> </observationRange> </ referenceRange> </observation> </component> </organizer> </entry > <entry> <organizer moodCode="EVN" classCode="BATTERY"> <templateId root="216.840.1.953894.10..22.4.1" /> <id nullFlavor="NA" /> <code codeSystem="local" code="2117-12" displayName="Serum or plasma choriogonadotropin ( test) detection" /> <statusCode code= "completed" /> <component> <observation moodCode="EVN" classCode= "OBS"> <templateId root="216.840.1.476664.10..22.4.2" /> < id nullFlavor="NA" /> <code codeSystem="local" code="2117-12" displayName="Serum or plasma choriogonadotropin ( test) detection" /> <statusCode code="completed" /> <effectiveTime value= "243471952634" /> <value unit="" xsi:type="PQ" value="NEGATIVE" /> <referenceRange> <observationRange> <text>NEGATIVE </text> </observationRange> </referenceRange> </ observation> </component> </organizer> </entry> <entry> <organizer moodCode="EVN" classCode="BATTERY"> <templateId root= "216.840.1.241013.10..22.4.1" /> <id nullFlavor="NA" /> <code codeSystem="local" code="32244-2" displayName="Comprehensive metabolic panel" / > <statusCode code="completed" /> <component> <observation moodCode="EVN" classCode="OBS"> <templateId root= "2.16.840.1.639431.10..22.4.2" /> <id nullFlavor="NA" /> < code codeSystem="local" code="2951-2" displayName="Serum or plasma sodium measurement (moles/volume)" /> <statusCode code="completed" /> <effectiveTime value="561609948201" /> <value unit="mmol/L" xsi:type= "PQ" value="139" /> <referenceRange> <observationRange> <text>135-145</text> </observationRange> </ referenceRange> </observation> </component> <component> <observation moodCode="EVN" classCode="OBS"> <templateId root= "2.16.840.1.646778.10..22.4.2" /> <id nullFlavor="NA" /> < code codeSystem="local" code="2823-3" displayName="Serum or plasma potassium measurement (moles/volume)" /> <statusCode code="completed" /> <effectiveTime value="893734483378" /> <value unit="mmol/L" xsi:type= "PQ" value="3.5" /> <interpretationCode codeSystem="local" code="" / > <referenceRange> <observationRange> <text>3.6 -5.0</text> </observationRange> </referenceRange> </ observation> </component> <component> <observation moodCode= "EVN" classCode="OBS"> <templateId root="16.840.1.311776.10..4.2 " /> <id nullFlavor="NA" /> <code codeSystem="local" code= "" displayName="Serum or plasma chloride measurement (moles/volume)" /> <statusCode code="completed" /> <effectiveTime value= "194805119848" /> <value unit="mmol/L" xsi:type="PQ" value="106" /> <referenceRange> <observationRange> <text>98-107< /text> </observationRange> </referenceRange> </ observation> </component> <component> <observation moodCode= "EVN" classCode="OBS"> <templateId root="06.27.840.1.231150.10..4.2 " /> <id nullFlavor="NA" /> <code codeSystem="local" code= "2028-01" displayName="Carbon dioxide" /> <statusCode code="completed" / > <effectiveTime value="713309977138" /> <value unit="mmol/L" xsi:type="PQ" value="23" /> <referenceRange> < observationRange> <text>21-32</text> </observationRange > </referenceRange> </observation> </component> < component> <observation moodCode="EVN" classCode="OBS"> < templateId root="16.840.1.841257.10...4.2" /> <id nullFlavor="NA " /> <code codeSystem="local" code="42836-0" displayName="Serum or plasma anion gap determination (moles/volume)" /> <statusCode code= "completed" /> <effectiveTime value="022681184536" /> <value unit="mmol/L" xsi:type="PQ" value="10" /> <referenceRange> < observationRange> <text>5-14</text> </observationRange> </referenceRange> </observation> </component> < component> <observation moodCode="EVN" classCode="OBS"> < templateId root="2.16.840.1.318244.10..22.4.2" /> <id nullFlavor="NA " /> <code codeSystem="local" code="3094-0" displayName="Serum or plasma urea nitrogen measurement (mass/volume)" /> <statusCode code= "completed" /> <effectiveTime value="698700293174" /> <value unit="mg/dL" xsi:type="PQ" value="18" /> <referenceRange> < observationRange> <text>7-18</text> </observationRange> </referenceRange> </observation> </component> < component> <observation moodCode="EVN" classCode="OBS"> < templateId root="2.16.840.1.376652.10..22.4.2" /> <id nullFlavor="NA " /> <code codeSystem="local" code="2160-0" displayName="Serum or plasma creatinine measurement (mass/volume)" /> <statusCode code= "completed" /> <effectiveTime value="917494437767" /> <value unit="mg/dL" xsi:type="PQ" value="0.75" /> <referenceRange> <observationRange> <text>0.60-1.30</text> </ observationRange> </referenceRange> </observation> </ component> <component> <observation moodCode="EVN" classCode="OBS"> <templateId root="2.16.840.1.957051.10..22.4.2" /> <id nullFlavor="NA" /> <code codeSystem="local" code="3097-3" displayName= "Serum or plasma urea nitrogen/creatinine mass ratio" /> <statusCode code="completed" /> <effectiveTime value="310951210789" /> < value unit="" xsi:type="PQ" value="24" /> <referenceRange> < observationRange> <text>NRG</text> </observationRange> </referenceRange> </observation> </component> < component> <observation moodCode="EVN" classCode="OBS"> < templateId root="216.840.1.481090.10..4.2" /> <id nullFlavor="NA " /> <code codeSystem="local" code="92981-0" displayName="Serum or plasma creatinine measurement with calculation of estimated glomerular filtration rate" /> <statusCode code="completed" /> < effectiveTime value="583036570314" /> <value unit="" xsi:type="PQ" value=">" /> <referenceRange> <observationRange> <text>NRG</text> </observationRange> </referenceRange > </observation> </component> <component> <observation moodCode="EVN" classCode="OBS"> <templateId root= "2.16.840.1.156044.10..22.4.2" /> <id nullFlavor="NA" /> < code codeSystem="local" code="2345-7" displayName="Serum or plasma glucose measurement (mass/volume)" /> <statusCode code="completed" /> <effectiveTime value="813637340236" /> <value unit="mg/dL" xsi:type="PQ " value="90" /> <referenceRange> <observationRange> <text>70-105</text> </observationRange> </ referenceRange> </observation> </component> <component> <observation moodCode="EVN" classCode="OBS"> <templateId root= "2.16.840.1.388174.10..22.4.2" /> <id nullFlavor="NA" /> < code codeSystem="local" code="51413-7" displayName="Serum or plasma calcium measurement (mass/volume)" /> <statusCode code="completed" /> <effectiveTime value="975452653891" /> <value unit="mg/dL" xsi:type="PQ " value="9.0" /> <referenceRange> <observationRange> <text>8.5-10.1</text> </observationRange> </ referenceRange> </observation> </component> <component> <observation moodCode="EVN" classCode="OBS"> <templateId root= "2.16.840.1.441619.10..22.4.2" /> <id nullFlavor="NA" /> < code codeSystem="local" code="1974-06" displayName="Serum or plasma total bilirubin measurement (mass/volume)" /> <statusCode code="completed" / > <effectiveTime value="894372530568" /> <value unit="mg/dL" xsi:type="PQ" value="0.3" /> <referenceRange> < observationRange> <text>0.1-1.0</text> </ observationRange> </referenceRange> </observation> </ component> <component> <observation moodCode="EVN" classCode="OBS"> <templateId root="2.16.840.1.839034.10.20.22.4.2" /> <id nullFlavor="NA" /> <code codeSystem="local" code="6768-" displayName= "Serum or plasma alkaline phosphatase measurement (enzymatic activity/volume)" / > <statusCode code="completed" /> <effectiveTime value= "039101915750" /> <value unit="U/L" xsi:type="PQ" value="67" /> <referenceRange> <observationRange> <text>40-136</ text> </observationRange> </referenceRange> </ observation> </component> <component> <observation moodCode= "EVN" classCode="OBS"> <templateId root="2.16.840.1.791279.10..22.4.2 " /> <id nullFlavor="NA" /> <code codeSystem="local" code= "1919-12" displayName="Serum or plasma aspartate aminotransferase measurement ( enzymatic activity/volume)" /> <statusCode code="completed" /> <effectiveTime value="072174212377" /> <value unit="U/L" xsi:type="PQ " value="22" /> <referenceRange> <observationRange> <text>5-34</text> </observationRange> </referenceRange > </observation> </component> <component> <observation moodCode="EVN" classCode="OBS"> <templateId root= "2.16.840.1.178931.10..22.4.2" /> <id nullFlavor="NA" /> < code codeSystem="local" code="1741-10" displayName="Serum or plasma alanine aminotransferase measurement (enzymatic activity/volume)" /> < statusCode code="completed" /> <effectiveTime value="765076020016" /> <value unit="U/L" xsi:type="PQ" value="22" /> <referenceRange > <observationRange> <text>0-55</text> </ observationRange> </referenceRange> </observation> </ component> <component> <observation moodCode="EVN" classCode="OBS"> <templateId root="2.16.840.1.423379.10..22.4.2" /> <id nullFlavor="NA" /> <code codeSystem="local" code="2885-2" displayName= "Serum or plasma protein measurement (mass/volume)" /> <statusCode code ="completed" /> <effectiveTime value="832236160401" /> <value unit="g/dL" xsi:type="PQ" value="7.2" /> <referenceRange> < observationRange> <text>6.4-8.2</text> </ observationRange> </referenceRange> </observation> </ component> <component> <observation moodCode="EVN" classCode="OBS"> <templateId root="216.840.1.572083.10..4.2" /> <id nullFlavor="NA" /> <code codeSystem="local" code="1751-7" displayName= "Serum or plasma albumin measurement (mass/volume)" /> <statusCode code ="completed" /> <effectiveTime value="598859919668" /> <value unit="g/dL" xsi:type="PQ" value="4.2" /> <referenceRange> < observationRange> <text>3.2-4.5</text> </ observationRange> </referenceRange> </observation> </ component> </organizer> </entry> <entry> <organizer moodCode="EVN" classCode="BATTERY"> <templateId root="2.16.840.1.571544.10..22.4.1" /> <id nullFlavor="NA" /> <code codeSystem="local" code="3040-3" displayName="Lipase" /> <statusCode code="completed" /> <component> <observation moodCode="EVN" classCode="OBS"> <templateId root= "2.16.840.1.917393.10.20.22.4.2" /> <id nullFlavor="NA" /> < code codeSystem="local" code="3040-3" displayName="Lipase" /> < statusCode code="completed" /> <effectiveTime value="195660635082" /> <value unit="U/L" xsi:type="PQ" value="42" /> <referenceRange > <observationRange> <text>8-78</text> </ observationRange> </referenceRange> </observation> </ component> </organizer> </entry> <entry> <organizer moodCode="EVN" classCode="BATTERY"> <templateId root="2.16.840.1.859533.10.20.22.4.1" /> <id nullFlavor="NA" /> <code codeSystem="local" code="5643-2" displayName="Serum or plasma ethanol measurement (mass/volume)" /> < statusCode code="completed" /> <component> <observation moodCode= "EVN" classCode="OBS"> <templateId root="2.16.840.1.419772.10.20.22.4.2 " /> <id nullFlavor="NA" /> <code codeSystem="local" code= "5643-2" displayName="Serum or plasma ethanol measurement (mass/volume)" /> <statusCode code="completed" /> <effectiveTime value= "201381990608" /> <value unit="mg/dL" xsi:type="PQ" value="<" /> <referenceRange> <observationRange> <text><10< /text> </observationRange> </referenceRange> </ observation> </component> </organizer> </entry> <entry> <organizer moodCode="EVN" classCode="BATTERY"> <templateId root= "216.840.1.671272.10..4.1" /> <id nullFlavor="NA" /> <code codeSystem="local" code="ORD3" displayName="Comprehensive Metabolic Panel" /> <statusCode code="completed" /> <component> <observation moodCode="EVN" classCode="OBS"> <templateId root= "06.27.840.1.270151...4.2" /> <id nullFlavor="NA" /> < code codeSystem="local" code="Res44" displayName="Albumin" /> < statusCode code="completed" /> <effectiveTime value="574454672436" /> <value unit="g/dL" xsi:type="PQ" value="3.7" /> < referenceRange> <observationRange> <text>3.6-5.1</text> </observationRange> </referenceRange> </observation > </component> <component> <observation moodCode="EVN" classCode="OBS"> <templateId root="06.27.840.1.161823.02.28.22.4.2" /> <id nullFlavor="NA" /> <code codeSystem="local" code="Res45" displayName="ALP" /> <statusCode code="completed" /> < effectiveTime value="170751392613" /> <value unit="U/L" xsi:type="PQ" value="60" /> <referenceRange> <observationRange> <text>35-130</text> </observationRange> </referenceRange > </observation> </component> <component> <observation moodCode="EVN" classCode="OBS"> <templateId root= "06.27.840.1.307945.02.28.22.4.2" /> <id nullFlavor="NA" /> < code codeSystem="local" code="Res46" displayName="ALT" /> <statusCode code="completed" /> <effectiveTime value="106527402375" /> < value unit="U/L" xsi:type="PQ" value="11" /> <referenceRange> <observationRange> <text>6-45</text> </ observationRange> </referenceRange> </observation> </ component> <component> <observation moodCode="EVN" classCode="OBS"> <templateId root="2.16.840.1.834795.02.28.22.4.2" /> <id nullFlavor="NA" /> <code codeSystem="local" code="Res61" displayName= "Anion Gap" /> <statusCode code="completed" /> <effectiveTime value="" /> <value unit="" xsi:type="PQ" value="15" /> <interpretationCode codeSystem="local" code="H" /> < referenceRange> <observationRange> <text>6-14</text> </observationRange> </referenceRange> </observation> </component> <component> <observation moodCode="EVN" classCode= "OBS"> <templateId root="2.16.840.1.654506.02.28.22.4.2" /> < id nullFlavor="NA" /> <code codeSystem="local" code="Res48" displayName ="AST" /> <statusCode code="completed" /> <effectiveTime value ="212128111487" /> <value unit="U/L" xsi:type="PQ" value="15" /> <referenceRange> <observationRange> <text>2-40</text > </observationRange> </referenceRange> </observation > </component> <component> <observation moodCode="EVN" classCode="OBS"> <templateId root="216.840.1.183463.10.20.22.4.2" /> <id nullFlavor="NA" /> <code codeSystem="local" code="Res26" displayName="BUN" /> <statusCode code="completed" /> < effectiveTime value="456672082163" /> <value unit="mg/dL" xsi:type="PQ " value="22" /> <referenceRange> <observationRange> <text>5-25</text> </observationRange> </referenceRange > </observation> </component> <component> <observation moodCode="EVN" classCode="OBS"> <templateId root= "16.840.1.332110.10.2022.4.2" /> <id nullFlavor="NA" /> < code codeSystem="local" code="Res5" displayName="Calcium" /> < statusCode code="completed" /> <effectiveTime value="461667609261" /> <value unit="mg/dL" xsi:type="PQ" value="8.8" /> < referenceRange> <observationRange> <text>8.3-10.4</text > </observationRange> </referenceRange> </observation > </component> <component> <observation moodCode="EVN" classCode="OBS"> <templateId root="06.27.840.1.470185.10.20.22.4.2" /> <id nullFlavor="NA" /> <code codeSystem="local" code="Res21" displayName="Chloride" /> <statusCode code="completed" /> < effectiveTime value="226906873085" /> <value unit="mmol/L" xsi:type="PQ " value="109" /> <referenceRange> <observationRange> <text>95-114</text> </observationRange> </ referenceRange> </observation> </component> <component> <observation moodCode="EVN" classCode="OBS"> <templateId root= "216.840.1.815463.10.22.4.2" /> <id nullFlavor="NA" /> < code codeSystem="local" code="Res49" displayName="CO2" /> <statusCode code="completed" /> <effectiveTime value="011562995138" /> < value unit="mEq/L" xsi:type="PQ" value="20" /> <interpretationCode codeSystem="local" code="L" /> <referenceRange> < observationRange> <text>22-33</text> </observationRange > </referenceRange> </observation> </component> < component> <observation moodCode="EVN" classCode="OBS"> < templateId root="06.27.840.1.176174.02.28.22.4.2" /> <id nullFlavor="NA " /> <code codeSystem="local" code="Zeo029" displayName="Creat" /> <statusCode code="completed" /> <effectiveTime value= "964307008776" /> <value unit="mg/dL" xsi:type="PQ" value="0.74" /> <referenceRange> <observationRange> <text>0.50- 1.50</text> </observationRange> </referenceRange> </ observation> </component> <component> <observation moodCode= "EVN" classCode="OBS"> <templateId root="216.840.1.986449.10.22.4.2 " /> <id nullFlavor="NA" /> <code codeSystem="local" code= "Jxu079" displayName="eGFR" /> <statusCode code="completed" /> <effectiveTime value="936328639862" /> <value unit="mL/min/1.73m2" xsi:type="PQ" value="90" /> <referenceRange> < observationRange> <text>>59</text> </observationRange > </referenceRange> </observation> </component> < component> <observation moodCode="EVN" classCode="OBS"> < templateId root="06.27.840.1.762795.10.4.2" /> <id nullFlavor="NA " /> <code codeSystem="local" code="Res7" displayName="Globulin" /> <statusCode code="completed" /> <effectiveTime value= "211671111718" /> <value unit="g/dL" xsi:type="PQ" value="2.1" /> <interpretationCode codeSystem="local" code="L" /> <referenceRange > <observationRange> <text>2.3-3.5</text> </ observationRange> </referenceRange> </observation> </ component> <component> <observation moodCode="EVN" classCode="OBS"> <templateId root="06.27.840.1.879000.02.28.22.4.2" /> <id nullFlavor="NA" /> <code codeSystem="local" code="Res60" displayName= "Glucose" /> <statusCode code="completed" /> <effectiveTime value="154784075590" /> <value unit="mg/dL" xsi:type="PQ" value="101" / > <referenceRange> <observationRange> <text>70- 110</text> </observationRange> </referenceRange> </ observation> </component> <component> <observation moodCode= "EVN" classCode="OBS"> <templateId root="216.840.1.004846.10.22.4.2 " /> <id nullFlavor="NA" /> <code codeSystem="local" code= "Res52" displayName="Osmo" /> <statusCode code="completed" /> <effectiveTime value="627368640007" /> <value unit="" xsi:type="PQ" value="294" /> <referenceRange> <observationRange> <text>280-295</text> </observationRange> </ referenceRange> </observation> </component> <component> <observation moodCode="EVN" classCode="OBS"> <templateId root= "2.16.840.1.308497.10.20.22.4.2" /> <id nullFlavor="NA" /> < code codeSystem="local" code="Res20" displayName="Potassium" /> < statusCode code="completed" /> <effectiveTime value="" /> <value unit="mmol/L" xsi:type="PQ" value="3.4" /> < interpretationCode codeSystem="local" code="L" /> <referenceRange> <observationRange> <text>3.5-5.3</text> </ observationRange> </referenceRange> </observation> </ component> <component> <observation moodCode="EVN" classCode="OBS"> <templateId root="2.16.840.1.065288.10.20.22.4.2" /> <id nullFlavor="NA" /> <code codeSystem="local" code="Res19" displayName= "Sodium" /> <statusCode code="completed" /> <effectiveTime value="265343558239" /> <value unit="mmol/L" xsi:type="PQ" value="141" /> <referenceRange> <observationRange> <text> 134-148</text> </observationRange> </referenceRange> </observation> </component> <component> <observation moodCode= "EVN" classCode="OBS"> <templateId root="06.27.840.1.479137.10.22.4.2 " /> <id nullFlavor="NA" /> <code codeSystem="local" code= "Res51" displayName="TBil" /> <statusCode code="completed" /> <effectiveTime value="100316132818" /> <value unit="mg/dL" xsi:type="PQ " value="< 0.2" /> <referenceRange> <observationRange> <text /> </observationRange> </referenceRange> </observation> </component> <component> <observation moodCode="EVN" classCode="OBS"> <templateId root= "06.27.840.1.922662.22.4.2" /> <id nullFlavor="NA" /> < code codeSystem="local" code="Res24" displayName="TP" /> <statusCode code="completed" /> <effectiveTime value="253713560223" /> < value unit="g/dL" xsi:type="PQ" value="5.8" /> <interpretationCode codeSystem="local" code="L" /> <referenceRange> < observationRange> <text>6.0-8.3</text> </ observationRange> </referenceRange> </observation> </ component> </organizer> </entry> <entry> <organizer moodCode="EVN" classCode="BATTERY"> <templateId root="06.27.840.1.997812.10.2022.4.1" /> <id nullFlavor="NA" /> <code codeSystem="local" code="TOM580" displayName="Folate" /> <statusCode code="completed" /> <component> <observation moodCode="EVN" classCode="OBS"> <templateId root= "06.27.840.1.487562.22.4.2" /> <id nullFlavor="NA" /> < code codeSystem="local" code="Gdt100" displayName="Folate" /> < statusCode code="completed" /> <effectiveTime value="" /> <value unit="ng/mL" xsi:type="PQ" value="9.20" /> < referenceRange> <observationRange> <text>7.00-31.40</ text> </observationRange> </referenceRange> </ observation> </component> </organizer> </entry> <entry> <organizer moodCode="EVN" classCode="BATTERY"> <templateId root= "840.1.965326.22.4.1" /> <id nullFlavor="NA" /> <code codeSystem="local" code="IJY470" displayName="XM (2) LRPC" /> <statusCode code="completed" /> <component> <observation moodCode="EVN" classCode="OBS"> <templateId root="06.27.840.1.007752...4.2" /> <id nullFlavor="NA" /> <code codeSystem="local" code="Dcf681" displayName="CROSSMATCH" /> <statusCode code="completed" /> < effectiveTime value="075970193642" /> <value unit="" xsi:type="PQ" value="COMPATIBLE X 2" /> <referenceRange> <observationRange > <text /> </observationRange> </referenceRange > </observation> </component> <component> <observation moodCode="EVN" classCode="OBS"> <templateId root= "06.27.840.1.689454.10.22.4.2" /> <id nullFlavor="NA" /> < code codeSystem="local" code="Res87" displayName="Hct" /> <statusCode code="completed" /> <effectiveTime value="" /> < value unit="%" xsi:type="PQ" value="25.8" /> <interpretationCode codeSystem="local" code="L" /> <referenceRange> < observationRange> <text>36.0-46.0</text> </ observationRange> </referenceRange> </observation> </ component> <component> <observation moodCode="EVN" classCode="OBS"> <templateId root="06.27.840.1.371580.22.4.2" /> <id nullFlavor="NA" /> <code codeSystem="local" code="Xzi143" displayName= "Hgb" /> <statusCode code="completed" /> <effectiveTime value= "437031558088" /> <value unit="g/dL" xsi:type="PQ" value="7.9" /> <interpretationCode codeSystem="local" code="L" /> <referenceRange > <observationRange> <text>13.0-15.0</text> < /observationRange> </referenceRange> </observation> </ component> </organizer> </entry> <entry> <organizer moodCode="EVN" classCode="BATTERY"> <templateId root="840.1.061888.22.4.1" /> <id nullFlavor="NA" /> <code codeSystem="local" code="ORD80" displayName=" Test-Serum" /> <statusCode code="completed" /> <component> <observation moodCode="EVN" classCode="OBS"> < templateId root="840.1.093844.102022.4.2" /> <id nullFlavor="NA " /> <code codeSystem="local" code="Res82" displayName="Preg Test-S" / > <statusCode code="completed" /> <effectiveTime value= "954372526125" /> <value unit="" xsi:type="PQ" value="Negative" /> <referenceRange> <observationRange> <text>Negative </text> </observationRange> </referenceRange> </ observation> </component> </organizer> </entry> <entry> <organizer moodCode="EVN" classCode="BATTERY"> <templateId root= "216.840.1.397215.10..22.4.1" /> <id nullFlavor="NA" /> <code codeSystem="local" code="HPR7863" displayName="Leukoreduced Packed RBC Unit Checkout" /> <statusCode code="completed" /> <component> < observation moodCode="EVN" classCode="OBS"> <templateId root= "2.16.840.1.079251.10..22.4.2" /> <id nullFlavor="NA" /> < code codeSystem="local" code="Fvs073" displayName="LRPRBC Checkout" /> <statusCode code="completed" /> <effectiveTime value="871234380492" /> <value unit="" xsi:type="PQ" value="Checked Out." /> < referenceRange> <observationRange> <text /> < /observationRange> </referenceRange> </observation> </ component> </organizer> </entry> <entry> <organizer moodCode="EVN" classCode="BATTERY"> <templateId root="216.840.1.648988.10..22.4.1" /> <id nullFlavor="NA" /> <code codeSystem="local" code="CGQ0287" displayName="Leukoreduced Packed RBC Unit Checkout" /> <statusCode code= "completed" /> <component> <observation moodCode="EVN" classCode= "OBS"> <templateId root="2.16.840.1.189750.10..22.4.2" /> < id nullFlavor="NA" /> <code codeSystem="local" code="Xty754" displayName="[facility] Checkout" /> <statusCode code="completed" /> <effectiveTime value="680587374137" /> <value unit="" xsi:type="PQ " value="Checked Out." /> <referenceRange> <observationRange > <text /> </observationRange> </referenceRange > </observation> </component> </organizer> </entry> <entry> <organizer moodCode="EVN" classCode="BATTERY"> <templateId root= "2.16.840.1.613777.10..22.4.1" /> <id nullFlavor="NA" /> <code codeSystem="local" code="ORD4" displayName="BMP" /> <statusCode code= "completed" /> <component> <observation moodCode="EVN" classCode= "OBS"> <templateId root="2.16.840.1.533168.10..22.4.2" /> < id nullFlavor="NA" /> <code codeSystem="local" code="Res61" displayName ="Anion Gap" /> <statusCode code="completed" /> < effectiveTime value="378982516941" /> <value unit="" xsi:type="PQ" value="15" /> <interpretationCode codeSystem="local" code="H" /> <referenceRange> <observationRange> <text>6-14</text > </observationRange> </referenceRange> </observation > </component> <component> <observation moodCode="EVN" classCode="OBS"> <templateId root="216.840.1.372871.10..22.4.2" /> <id nullFlavor="NA" /> <code codeSystem="local" code="Res26" displayName="BUN" /> <statusCode code="completed" /> < effectiveTime value="" /> <value unit="mg/dL" xsi:type="PQ " value="18" /> <referenceRange> <observationRange> <text>5-25</text> </observationRange> </referenceRange > </observation> </component> <component> <observation moodCode="EVN" classCode="OBS"> <templateId root= "16.840.1.492544.02.28.22.4.2" /> <id nullFlavor="NA" /> < code codeSystem="local" code="Res5" displayName="Calcium" /> < statusCode code="completed" /> <effectiveTime value="" /> <value unit="mg/dL" xsi:type="PQ" value="8.8" /> < referenceRange> <observationRange> <text>8.3-10.4</text > </observationRange> </referenceRange> </observation > </component> <component> <observation moodCode="EVN" classCode="OBS"> <templateId root="16.840.1.948389.10.2022.4.2" /> <id nullFlavor="NA" /> <code codeSystem="local" code="Res21" displayName="Chloride" /> <statusCode code="completed" /> < effectiveTime value="279386527688" /> <value unit="mmol/L" xsi:type="PQ " value="110" /> <referenceRange> <observationRange> <text>95-114</text> </observationRange> </ referenceRange> </observation> </component> <component> <observation moodCode="EVN" classCode="OBS"> <templateId root= "216.840.1.847533.10.22.4.2" /> <id nullFlavor="NA" /> < code codeSystem="local" code="Res49" displayName="CO2" /> <statusCode code="completed" /> <effectiveTime value="" /> < value unit="mEq/L" xsi:type="PQ" value="22" /> <referenceRange> <observationRange> <text>22-33</text> </ observationRange> </referenceRange> </observation> </ component> <component> <observation moodCode="EVN" classCode="OBS"> <templateId root="216.840.1.310975.02.28.224.2" /> <id nullFlavor="NA" /> <code codeSystem="local" code="Vgb257" displayName= "Creat" /> <statusCode code="completed" /> <effectiveTime value="" /> <value unit="mg/dL" xsi:type="PQ" value="0.74" /> <referenceRange> <observationRange> <text> 0.50-1.50</text> </observationRange> </referenceRange> </observation> </component> <component> <observation moodCode="EVN" classCode="OBS"> <templateId root= "16.840.1.272013.10.2022.4.2" /> <id nullFlavor="NA" /> < code codeSystem="local" code="Wbl998" displayName="eGFR" /> < statusCode code="completed" /> <effectiveTime value="" /> <value unit="mL/min/1.73m2" xsi:type="PQ" value="90" /> < referenceRange> <observationRange> <text>>59</text> </observationRange> </referenceRange> </observation> </component> <component> <observation moodCode="EVN" classCode ="OBS"> <templateId root="06.27.840.1.613661.10..4.2" /> < id nullFlavor="NA" /> <code codeSystem="local" code="Res60" displayName ="Glucose" /> <statusCode code="completed" /> <effectiveTime value="693870377084" /> <value unit="mg/dL" xsi:type="PQ" value="70" / > <referenceRange> <observationRange> <text>70- 110</text> </observationRange> </referenceRange> </ observation> </component> <component> <observation moodCode= "EVN" classCode="OBS"> <templateId root="840.1.386046.10.4.2 " /> <id nullFlavor="NA" /> <code codeSystem="local" code= "Res52" displayName="Osmo" /> <statusCode code="completed" /> <effectiveTime value="290041429421" /> <value unit="" xsi:type="PQ" value="296" /> <interpretationCode codeSystem="local" code="H" /> <referenceRange> <observationRange> <text>280-295</ text> </observationRange> </referenceRange> </ observation> </component> <component> <observation moodCode= "EVN" classCode="OBS"> <templateId root="06.27.840.1.398491.10..4.2 " /> <id nullFlavor="NA" /> <code codeSystem="local" code= "Res20" displayName="Potassium" /> <statusCode code="completed" /> <effectiveTime value="009195006107" /> <value unit="mmol/L" xsi: type="PQ" value="3.6" /> <referenceRange> <observationRange > <text>3.5-5.3</text> </observationRange> </ referenceRange> </observation> </component> <component> <observation moodCode="EVN" classCode="OBS"> <templateId root= "216.840.1.933094.10..22.4.2" /> <id nullFlavor="NA" /> < code codeSystem="local" code="Res19" displayName="Sodium" /> < statusCode code="completed" /> <effectiveTime value="137842441864" /> <value unit="mmol/L" xsi:type="PQ" value="143" /> < referenceRange> <observationRange> <text>134-148</text> </observationRange> </referenceRange> </observation > </component> </organizer> </entry> <entry> <organizer moodCode= "EVN" classCode="BATTERY"> <templateId root="216.840.1.156229.10..22.4.1 " /> <id nullFlavor="NA" /> <code codeSystem="local" code="70131-6" displayName="Complete blood count (CBC) with automated white blood cell (WBC) differential" /> <statusCode code="completed" /> <component> < observation moodCode="EVN" classCode="OBS"> <templateId root= "216.840.1.902164.10.20.22.4.2" /> <id nullFlavor="NA" /> < code codeSystem="local" code="6690-2" displayName="Blood leukocytes automated count (number/volume)" /> <statusCode code="completed" /> < effectiveTime value="508382354410" /> <value unit="10*3/uL" xsi:type= "PQ" value="10.1" /> <referenceRange> <observationRange> <text>4.3-11.0</text> </observationRange> </ referenceRange> </observation> </component> <component> <observation moodCode="EVN" classCode="OBS"> <templateId root= "2.16.840.1.982724.10.20.22.4.2" /> <id nullFlavor="NA" /> < code codeSystem="local" code="789-8" displayName="Blood erythrocytes automated count (number/volume)" /> <statusCode code="completed" /> < effectiveTime value="279350077294" /> <value unit="10*6/uL" xsi:type= "PQ" value="3.96" /> <interpretationCode codeSystem="local" code="" / > <referenceRange> <observationRange> <text> 4.35-5.85</text> </observationRange> </referenceRange> </observation> </component> <component> <observation moodCode="EVN" classCode="OBS"> <templateId root= "2.16.840.1.940196.10.20.22.4.2" /> <id nullFlavor="NA" /> < code codeSystem="local" code="52972-3" displayName="Venous blood hemoglobin measurement (mass/volume)" /> <statusCode code="completed" /> <effectiveTime value="946672789354" /> <value unit="g/dL" xsi:type="PQ " value="10.6" /> <interpretationCode codeSystem="local" code="" /> <referenceRange> <observationRange> <text>11.5- 16.0</text> </observationRange> </referenceRange> </ observation> </component> <component> <observation moodCode= "EVN" classCode="OBS"> <templateId root="2.16.840.1.146124.10..22.4.2 " /> <id nullFlavor="NA" /> <code codeSystem="local" code= "38988-7" displayName="Blood hematocrit (volume fraction)" /> < statusCode code="completed" /> <effectiveTime value="" /> <value unit="%" xsi:type="PQ" value="32" /> < interpretationCode codeSystem="local" code="" /> <referenceRange> <observationRange> <text>35-52</text> </ observationRange> </referenceRange> </observation> </ component> <component> <observation moodCode="EVN" classCode="OBS"> <templateId root="2.16.840.1.035458.10..4.2" /> <id nullFlavor="NA" /> <code codeSystem="local" code="787-2" displayName= "Automated erythrocyte mean corpuscular volume" /> <statusCode code= "completed" /> <effectiveTime value="" /> <value unit="[foz_us]" xsi:type="PQ" value="80" /> <referenceRange> <observationRange> <text>80-99</text> </ observationRange> </referenceRange> </observation> </ component> <component> <observation moodCode="EVN" classCode="OBS"> <templateId root="2.16.840.1.015261.10..22.4.2" /> <id nullFlavor="NA" /> <code codeSystem="local" code="785-6" displayName= "Automated erythrocyte mean corpuscular hemoglobin (mass per erythrocyte)" /> <statusCode code="completed" /> <effectiveTime value= "436610260455" /> <value unit="pg" xsi:type="PQ" value="27" /> <referenceRange> <observationRange> <text>25-34</text > </observationRange> </referenceRange> </observation > </component> <component> <observation moodCode="EVN" classCode="OBS"> <templateId root="2.16.840.1.504378.10..22.4.2" /> <id nullFlavor="NA" /> <code codeSystem="local" code="786-4" displayName="Automated erythrocyte mean corpuscular hemoglobin concentration measurement (mass/volume)" /> <statusCode code="completed" /> <effectiveTime value="932255932905" /> <value unit="g/dL" xsi:type="PQ " value="33" /> <referenceRange> <observationRange> <text>32-36</text> </observationRange> </ referenceRange> </observation> </component> <component> <observation moodCode="EVN" classCode="OBS"> <templateId root= "2.16.840.1.268924.10..22.4.2" /> <id nullFlavor="NA" /> < code codeSystem="local" code="788-0" displayName="Automated erythrocyte distribution width ratio" /> <statusCode code="completed" /> < effectiveTime value="338471886892" /> <value unit="%" xsi:type="PQ " value="22.0" /> <interpretationCode codeSystem="local" code="" /> <referenceRange> <observationRange> <text>10.0- 14.5</text> </observationRange> </referenceRange> </ observation> </component> <component> <observation moodCode= "EVN" classCode="OBS"> <templateId root="2.16.840.1.915004.10.20.22.4.2 " /> <id nullFlavor="NA" /> <code codeSystem="local" code="777 -3" displayName="Automated blood platelet count (count/volume)" /> < statusCode code="completed" /> <effectiveTime value="" /> <value unit="10*3/uL" xsi:type="PQ" value="313" /> < referenceRange> <observationRange> <text>130-400</text> </observationRange> </referenceRange> </observation > </component> <component> <observation moodCode="EVN" classCode="OBS"> <templateId root="16.840.1.883327.10.2022.4.2" /> <id nullFlavor="NA" /> <code codeSystem="local" code="91789-0 " displayName="Automated blood platelet mean volume measurement" /> < statusCode code="completed" /> <effectiveTime value="190317913497" /> <value unit="[foz_us]" xsi:type="PQ" value="10.7" /> < interpretationCode codeSystem="local" code="" /> <referenceRange> <observationRange> <text>7.4-10.4</text> </ observationRange> </referenceRange> </observation> </ component> <component> <observation moodCode="EVN" classCode="OBS"> <templateId root="16.840.1.560016.10.20.22.4.2" /> <id nullFlavor="NA" /> <code codeSystem="local" code="770-8" displayName= "Automated blood neutrophils/100 leukocytes" /> <statusCode code= "completed" /> <effectiveTime value="" /> <value unit="%" xsi:type="PQ" value="76" /> <interpretationCode codeSystem ="local" code="" /> <referenceRange> <observationRange> <text>42-75</text> </observationRange> </ referenceRange> </observation> </component> <component> <observation moodCode="EVN" classCode="OBS"> <templateId root= "2.16.840.1.099764.10..22.4.2" /> <id nullFlavor="NA" /> < code codeSystem="local" code="736-9" displayName="Automated blood lymphocytes/ 100 leukocytes" /> <statusCode code="completed" /> < effectiveTime value="013914106809" /> <value unit="%" xsi:type="PQ " value="16" /> <referenceRange> <observationRange> <text>12-44</text> </observationRange> </ referenceRange> </observation> </component> <component> <observation moodCode="EVN" classCode="OBS"> <templateId root= "2.16.840.1.290554.10...4.2" /> <id nullFlavor="NA" /> < code codeSystem="local" code="74461-2" displayName="Blood monocytes/100 leukocytes" /> <statusCode code="completed" /> <effectiveTime value="356370672895" /> <value unit="%" xsi:type="PQ" value="6" /> <referenceRange> <observationRange> <text>0-12 </text> </observationRange> </referenceRange> </ observation> </component> <component> <observation moodCode= "EVN" classCode="OBS"> <templateId root="2.16.840.1.417087.10.20.22.4.2 " /> <id nullFlavor="NA" /> <code codeSystem="local" code="713 -8" displayName="Automated blood eosinophils/100 leukocytes" /> < statusCode code="completed" /> <effectiveTime value="408424110409" /> <value unit="%" xsi:type="PQ" value="1" /> <referenceRange > <observationRange> <text>0-10</text> </ observationRange> </referenceRange> </observation> </ component> <component> <observation moodCode="EVN" classCode="OBS"> <templateId root="2.16.840.1.921123.10.20.22.4.2" /> <id nullFlavor="NA" /> <code codeSystem="local" code="706-2" displayName= "Automated blood basophils/100 leukocytes" /> <statusCode code= "completed" /> <effectiveTime value="036782525507" /> <value unit="%" xsi:type="PQ" value="0" /> <referenceRange> < observationRange> <text>0-10</text> </observationRange> </referenceRange> </observation> </component> < component> <observation moodCode="EVN" classCode="OBS"> < templateId root="2.16.840.1.093183.10.20.22.4.2" /> <id nullFlavor="NA " /> <code codeSystem="local" code="751-8" displayName="Blood neutrophils automated count (number/volume)" /> <statusCode code= "completed" /> <effectiveTime value="499178102600" /> <value unit="10*3" xsi:type="PQ" value="7.7" /> <referenceRange> < observationRange> <text>1.8-7.8</text> </ observationRange> </referenceRange> </observation> </ component> <component> <observation moodCode="EVN" classCode="OBS"> <templateId root="216.840.1.364999.10.20.22.4.2" /> <id nullFlavor="NA" /> <code codeSystem="local" code="731-0" displayName= "Blood lymphocytes automated count (number/volume)" /> <statusCode code ="completed" /> <effectiveTime value="" /> <value unit="10*3" xsi:type="PQ" value="1.6" /> <referenceRange> < observationRange> <text>1.0-4.0</text> </ observationRange> </referenceRange> </observation> </ component> <component> <observation moodCode="EVN" classCode="OBS"> <templateId root="16.840.1.137007.10.22.4.2" /> <id nullFlavor="NA" /> <code codeSystem="local" code="742-7" displayName= "Blood monocytes automated count (number/volume)" /> <statusCode code= "completed" /> <effectiveTime value="" /> <value unit="10*3" xsi:type="PQ" value="0.6" /> <referenceRange> < observationRange> <text>0.0-1.0</text> </ observationRange> </referenceRange> </observation> </ component> <component> <observation moodCode="EVN" classCode="OBS"> <templateId root="16.840.1.403437.10.20.22.4.2" /> <id nullFlavor="NA" /> <code codeSystem="local" code="711-2" displayName= "Automated eosinophil count" /> <statusCode code="completed" /> <effectiveTime value="" /> <value unit="10*3/uL" xsi: type="PQ" value="0.1" /> <referenceRange> <observationRange > <text>0.0-0.3</text> </observationRange> </ referenceRange> </observation> </component> <component> <observation moodCode="EVN" classCode="OBS"> <templateId root= "216.840.1.990002.10.2022.4.2" /> <id nullFlavor="NA" /> < code codeSystem="local" code="704-7" displayName="Automated blood basophil count (count/volume)" /> <statusCode code="completed" /> < effectiveTime value="" /> <value unit="10*3/uL" xsi:type= "PQ" value="0.0" /> <referenceRange> <observationRange> <text>0.0-0.1</text> </observationRange> </ referenceRange> </observation> </component> </organizer> </entry > <entry> <organizer moodCode="EVN" classCode="BATTERY"> <templateId root="06.27.840.1.382764.1022.4.1" /> <id nullFlavor="NA" /> <code codeSystem="local" code="09494-0" displayName="Whole blood basic metabolic panel " /> <statusCode code="completed" /> <component> <observation moodCode="EVN" classCode="OBS"> <templateId root= "16.840.1.180960.102022.4.2" /> <id nullFlavor="NA" /> < code codeSystem="local" code="2951-2" displayName="Serum or plasma sodium measurement (moles/volume)" /> <statusCode code="completed" /> <effectiveTime value="453257809923" /> <value unit="mmol/L" xsi:type= "PQ" value="140" /> <referenceRange> <observationRange> <text>135-145</text> </observationRange> </ referenceRange> </observation> </component> <component> <observation moodCode="EVN" classCode="OBS"> <templateId root= "2.16.840.1.006497.10.20.22.4.2" /> <id nullFlavor="NA" /> < code codeSystem="local" code="2823-3" displayName="Serum or plasma potassium measurement (moles/volume)" /> <statusCode code="completed" /> <effectiveTime value="535260603554" /> <value unit="mmol/L" xsi:type= "PQ" value="3.8" /> <referenceRange> <observationRange> <text>3.6-5.0</text> </observationRange> </ referenceRange> </observation> </component> <component> <observation moodCode="EVN" classCode="OBS"> <templateId root= "16.840.1.408832.10..22.4.2" /> <id nullFlavor="NA" /> < code codeSystem="local" code="2070" displayName="Serum or plasma chloride measurement (moles/volume)" /> <statusCode code="completed" /> <effectiveTime value="644823067032" /> <value unit="mmol/L" xsi:type= "PQ" value="107" /> <referenceRange> <observationRange> <text>98-107</text> </observationRange> </ referenceRange> </observation> </component> <component> <observation moodCode="EVN" classCode="OBS"> <templateId root= "216.840.1.924832.10.20.22.4.2" /> <id nullFlavor="NA" /> < code codeSystem="local" code="2028-01" displayName="Carbon dioxide" /> < statusCode code="completed" /> <effectiveTime value="937902112935" /> <value unit="mmol/L" xsi:type="PQ" value="25" /> < referenceRange> <observationRange> <text>21-32</text> </observationRange> </referenceRange> </observation> </component> <component> <observation moodCode="EVN" classCode= "OBS"> <templateId root="2.16.840.1.975423.10.20.22.4.2" /> < id nullFlavor="NA" /> <code codeSystem="local" code="05253-9" displayName="Serum or plasma anion gap determination (moles/volume)" /> <statusCode code="completed" /> <effectiveTime value="886673069666" / > <value unit="mmol/L" xsi:type="PQ" value="8" /> < referenceRange> <observationRange> <text>5-14</text> </observationRange> </referenceRange> </observation> </component> <component> <observation moodCode="EVN" classCode= "OBS"> <templateId root="2.16.840.1.985410.10.20.22.4.2" /> < id nullFlavor="NA" /> <code codeSystem="local" code="3094-0" displayName="Serum or plasma urea nitrogen measurement (mass/volume)" /> <statusCode code="completed" /> <effectiveTime value="989309695817" /> <value unit="mg/dL" xsi:type="PQ" value="15" /> < referenceRange> <observationRange> <text>7-18</text> </observationRange> </referenceRange> </observation> </component> <component> <observation moodCode="EVN" classCode= "OBS"> <templateId root="2.16.840.1.274341.10.20.22.4.2" /> < id nullFlavor="NA" /> <code codeSystem="local" code="2160-0" displayName="Serum or plasma creatinine measurement (mass/volume)" /> < statusCode code="completed" /> <effectiveTime value="345915670905" /> <value unit="mg/dL" xsi:type="PQ" value="0.72" /> < referenceRange> <observationRange> <text>0.60-1.30</text > </observationRange> </referenceRange> </observation > </component> <component> <observation moodCode="EVN" classCode="OBS"> <templateId root="216.840.1.655532.10...4.2" /> <id nullFlavor="NA" /> <code codeSystem="local" code="3097-3" displayName="Serum or plasma urea nitrogen/creatinine mass ratio" /> < statusCode code="completed" /> <effectiveTime value="256941864735" /> <value unit="" xsi:type="PQ" value="21" /> <referenceRange> <observationRange> <text>NRG</text> </ observationRange> </referenceRange> </observation> </ component> <component> <observation moodCode="EVN" classCode="OBS"> <templateId root="2.16.840.1.652787.10.20.22.4.2" /> <id nullFlavor="NA" /> <code codeSystem="local" code="19078-1" displayName= "Serum or plasma creatinine measurement with calculation of estimated glomerular filtration rate" /> <statusCode code="completed" /> <effectiveTime value="414813449693" /> <value unit="" xsi:type="PQ" value=">" /> <referenceRange> <observationRange> <text>NRG</text> </observationRange> </referenceRange > </observation> </component> <component> <observation moodCode="EVN" classCode="OBS"> <templateId root= "2.16.840.1.824213.10.20.22.4.2" /> <id nullFlavor="NA" /> < code codeSystem="local" code="2345-7" displayName="Serum or plasma glucose measurement (mass/volume)" /> <statusCode code="completed" /> <effectiveTime value="100050064615" /> <value unit="mg/dL" xsi:type="PQ " value="82" /> <referenceRange> <observationRange> <text>70-105</text> </observationRange> </ referenceRange> </observation> </component> <component> <observation moodCode="EVN" classCode="OBS"> <templateId root= "216.840.1.020057.10.20.22.4.2" /> <id nullFlavor="NA" /> < code codeSystem="local" code="63218-8" displayName="Serum or plasma calcium measurement (mass/volume)" /> <statusCode code="completed" /> <effectiveTime value="145460311309" /> <value unit="mg/dL" xsi:type="PQ " value="9.6" /> <referenceRange> <observationRange> <text>8.5-10.1</text> </observationRange> </ referenceRange> </observation> </component> </organizer> </entry > <entry> <organizer moodCode="EVN" classCode="BATTERY"> <templateId root="2.16.840.1.546370.10.20.22.4.1" /> <id nullFlavor="NA" /> <code codeSystem="local" code="2117-12" displayName="Serum or plasma choriogonadotropin ( test) detection" /> <statusCode code= "completed" /> <component> <observation moodCode="EVN" classCode= "OBS"> <templateId root="216.840.1.269516.10.20.22.4.2" /> < id nullFlavor="NA" /> <code codeSystem="local" code="2117-12" displayName="Serum or plasma choriogonadotropin ( test) detection" /> <statusCode code="completed" /> <effectiveTime value= "215271735168" /> <value unit="" xsi:type="PQ" value="NEGATIVE" /> <referenceRange> <observationRange> <text>NEGATIVE </text> </observationRange> </referenceRange> </ observation> </component> </organizer> </entry> <entry> <organizer moodCode="EVN" classCode="BATTERY"> <templateId root= "216.840.1.340798.10.20.22.4.1" /> <id nullFlavor="NA" /> <code codeSystem="local" code="600-7" displayName="Bacterial blood culture" /> < statusCode code="completed" /> <component> <observation moodCode= "EVN" classCode="OBS"> <templateId root="216.840.1.582869.10.20.22.4.2 " /> <id nullFlavor="NA" /> <code codeSystem="local" code="600 -7" displayName="Bacterial blood culture" /> <statusCode code= "completed" /> <effectiveTime value="787917122588" /> <value unit="" xsi:type="PQ" value="NG" /> <referenceRange> < observationRange> <text>NRG</text> </observationRange> </referenceRange> </observation> </component> </ organizer> </entry> <entry> <organizer moodCode="EVN" classCode="BATTERY"> <templateId root="06.27.840.1.534100.10...4.1" /> <id nullFlavor= "NA" /> <code codeSystem="local" code="19399-2" displayName="Methicillin resistant Staphylococcus aureus (MRSA) screening culture" /> <statusCode code="completed" /> <component> <observation moodCode="EVN" classCode="OBS"> <templateId root="06.27.840.1.365893.10..4.2" /> <id nullFlavor="NA" /> <code codeSystem="local" code="MRSARES " displayName="MRSA SCREEN RESULT" /> <statusCode code="completed" /> <effectiveTime value="440118604021" /> <value unit="" xsi:type ="PQ" value="MRSA ISOLATED" /> <interpretationCode codeSystem="local" code="*" /> <referenceRange> <observationRange> <text>NRG</text> </observationRange> </referenceRange> </observation> </component> </organizer> </entry> <entry> < organizer moodCode="EVN" classCode="BATTERY"> <templateId root= "06.27.840.1.017686.02.28.22.4.1" /> <id nullFlavor="NA" /> <code codeSystem="local" code="600-7" displayName="Bacterial blood culture" /> < statusCode code="completed" /> <component> <observation moodCode= "EVN" classCode="OBS"> <templateId root="16.840.1.002518.10..22.4.2 " /> <id nullFlavor="NA" /> <code codeSystem="local" code="600 -7" displayName="Bacterial blood culture" /> <statusCode code= "completed" /> <effectiveTime value="888731699865" /> <value unit="" xsi:type="PQ" value="NG" /> <referenceRange> < observationRange> <text>NRG</text> </observationRange> </referenceRange> </observation> </component> </ organizer> </entry> <entry> <organizer moodCode="EVN" classCode="BATTERY"> <templateId root="2.16.840.1.456101.10..22.4.1" /> <id nullFlavor= "NA" /> <code codeSystem="local" code="19123-8" displayName="Urine drug screening test" /> <statusCode code="completed" /> <component> <observation moodCode="EVN" classCode="OBS"> <templateId root= "2.16.840.1.764611.10..22.4.2" /> <id nullFlavor="NA" /> < code codeSystem="local" code="49924-3" displayName="Urine phencyclidine detection by screening method" /> <statusCode code="completed" /> <effectiveTime value="" /> <value unit="" xsi:type="PQ " value="NEGATIVE" /> <referenceRange> <observationRange> <text>NEGATIVE</text> </observationRange> </ referenceRange> </observation> </component> <component> <observation moodCode="EVN" classCode="OBS"> <templateId root= "2.16.840.1.353561.10..22.4.2" /> <id nullFlavor="NA" /> < code codeSystem="local" code="12523-1" displayName="Urine benzodiazepines detection by screening method" /> <statusCode code="completed" /> <effectiveTime value="" /> <value unit="" xsi:type="PQ " value="NEGATIVE" /> <referenceRange> <observationRange> <text>NEGATIVE</text> </observationRange> </ referenceRange> </observation> </component> <component> <observation moodCode="EVN" classCode="OBS"> <templateId root= "2.16.840.1.088419.10..22.4.2" /> <id nullFlavor="NA" /> < code codeSystem="local" code="3397-7" displayName="Urine cocaine detection" /> <statusCode code="completed" /> <effectiveTime value= "" /> <value unit="" xsi:type="PQ" value="NEGATIVE" /> <referenceRange> <observationRange> <text>NEGATIVE </text> </observationRange> </referenceRange> </ observation> </component> <component> <observation moodCode= "EVN" classCode="OBS"> <templateId root="216.840.1.948086.10..22.4.2 " /> <id nullFlavor="NA" /> <code codeSystem="local" code= "69345-1" displayName="Urine amphetamines detection by screening method" /> <statusCode code="completed" /> <effectiveTime value= "" /> <value unit="" xsi:type="PQ" value="POSITIVE" /> <interpretationCode codeSystem="local" code="*" /> < referenceRange> <observationRange> <text>NEGATIVE</text > </observationRange> </referenceRange> </observation > </component> <component> <observation moodCode="EVN" classCode="OBS"> <templateId root="216.840.1.920368.10.20.22.4.2" /> <id nullFlavor="NA" /> <code codeSystem="local" code="84222-6 " displayName="Urine methamphetamine detection by screening method" /> <statusCode code="completed" /> <effectiveTime value="" /> <value unit="" xsi:type="PQ" value="NEGATIVE" /> < referenceRange> <observationRange> <text>NEGATIVE</text > </observationRange> </referenceRange> </observation > </component> <component> <observation moodCode="EVN" classCode="OBS"> <templateId root="2.16.840.1.583826.10.20.22.4.2" /> <id nullFlavor="NA" /> <code codeSystem="local" code="12791-3 " displayName="Urine cannabinoids detection by screening method" /> < statusCode code="completed" /> <effectiveTime value="" /> <value unit="" xsi:type="PQ" value="POSITIVE" /> < interpretationCode codeSystem="local" code="*" /> <referenceRange> <observationRange> <text>NEGATIVE</text> </ observationRange> </referenceRange> </observation> </ component> <component> <observation moodCode="EVN" classCode="OBS"> <templateId root="2.16.840.1.082692.10.20.22.4.2" /> <id nullFlavor="NA" /> <code codeSystem="local" code="51400-9" displayName= "Urine opiates detection by screening method" /> <statusCode code= "completed" /> <effectiveTime value="" /> <value unit="" xsi:type="PQ" value="NEGATIVE" /> <referenceRange> < observationRange> <text>NEGATIVE</text> </ observationRange> </referenceRange> </observation> </ component> <component> <observation moodCode="EVN" classCode="OBS"> <templateId root="2.16.840.1.917694.10..22.4.2" /> <id nullFlavor="NA" /> <code codeSystem="local" code="3377-9" displayName= "Urine barbiturates detection" /> <statusCode code="completed" /> <effectiveTime value="" /> <value unit="" xsi:type="PQ " value="NEGATIVE" /> <referenceRange> <observationRange> <text>NEGATIVE</text> </observationRange> </ referenceRange> </observation> </component> <component> <observation moodCode="EVN" classCode="OBS"> <templateId root= "216.840.1.652536.10...4.2" /> <id nullFlavor="NA" /> < code codeSystem="local" code="20298-9" displayName="Screening urine tricyclic antidepressants detection" /> <statusCode code="completed" /> <effectiveTime value="" /> <value unit="" xsi:type="PQ" value="NEGATIVE" /> <referenceRange> <observationRange> <text>NEGATIVE</text> </observationRange> </ referenceRange> </observation> </component> <component> <observation moodCode="EVN" classCode="OBS"> <templateId root= "16.840.1.891365.10.22.4.2" /> <id nullFlavor="NA" /> < code codeSystem="local" code="54828-0" displayName="Urine methadone detection by screening method" /> <statusCode code="completed" /> < effectiveTime value="" /> <value unit="" xsi:type="PQ" value="NEGATIVE" /> <referenceRange> <observationRange> <text>NEGATIVE</text> </observationRange> </ referenceRange> </observation> </component> <component> <observation moodCode="EVN" classCode="OBS"> <templateId root= "2.16.840.1.557586.10..22.4.2" /> <id nullFlavor="NA" /> < code codeSystem="local" code="29332-4" displayName="Urine oxycodone detection" / > <statusCode code="completed" /> <effectiveTime value= "" /> <value unit="" xsi:type="PQ" value="NEGATIVE" /> <referenceRange> <observationRange> <text>NEGATIVE </text> </observationRange> </referenceRange> </ observation> </component> <component> <observation moodCode= "EVN" classCode="OBS"> <templateId root="2.16.840.1.565705.10...4.2 " /> <id nullFlavor="NA" /> <code codeSystem="local" code= "13415-9" displayName="Urine propoxyphene detection" /> <statusCode code="completed" /> <effectiveTime value="" /> < value unit="" xsi:type="PQ" value="NEGATIVE" /> <referenceRange> <observationRange> <text>NEGATIVE</text> </ observationRange> </referenceRange> </observation> </ component> </organizer> </entry> <entry> <organizer moodCode="EVN" classCode="BATTERY"> <templateId root="2.16.840.1.839953.10..22.4.1" /> <id nullFlavor="NA" /> <code codeSystem="local" code="35585-4" displayName="Bacteria identification in isolate by anaerobe culture" /> < statusCode code="completed" /> <component> <observation moodCode= "EVN" classCode="OBS"> <templateId root="216.840.1.991127.10..22.4.2 " /> <id nullFlavor="NA" /> <code codeSystem="local" code= "69396-6" displayName="Bacteria identification in isolate by anaerobe culture" / > <statusCode code="completed" /> <effectiveTime value= "393282608414" /> <value unit="" xsi:type="PQ" value="NOANA" /> <referenceRange> <observationRange> <text>NRG</text> </observationRange> </referenceRange> </observation > </component> </organizer> </entry> <entry> <organizer moodCode= "EVN" classCode="BATTERY"> <templateId root="2.16.840.1.105633.10.20.22.4.1 " /> <id nullFlavor="NA" /> <code codeSystem="local" code="664-3" displayName="Gram stain microscopy" /> <statusCode code="completed" /> <component> <observation moodCode="EVN" classCode="OBS"> < templateId root="2.16.840.1.610522.10.20.22.4.2" /> <id nullFlavor="NA " /> <code codeSystem="local" code="664-3" displayName="Gram stain microscopy" /> <statusCode code="completed" /> <effectiveTime value="536637325533" /> <value unit="" xsi:type="PQ" value="REPORTED ,0605." /> <referenceRange> <observationRange> <text>NRG</text> </observationRange> </ referenceRange> </observation> </component> </organizer> </entry > <entry> <organizer moodCode="EVN" classCode="BATTERY"> <templateId root="216.840.1.825887.10..22.4.1" /> <id nullFlavor="NA" /> <code codeSystem="local" code="6462-6" displayName="Bacteria identification in wound by culture" /> <statusCode code="completed" /> <component> < observation moodCode="EVN" classCode="OBS"> <templateId root= "06.27.840.1.377009.02.28.22.4.2" /> <id nullFlavor="NA" /> < code codeSystem="local" code="6462-6" displayName="Bacteria identification in wound by culture" /> <statusCode code="completed" /> < effectiveTime value="348555878763" /> <value unit="" xsi:type="PQ" value="SEE REPORT" /> <referenceRange> <observationRange> <text>NRG</text> </observationRange> </ referenceRange> </observation> </component> <component> <observation moodCode="EVN" classCode="OBS"> <templateId root= "06.27.840.1.127246.02.28.22.4.2" /> <id nullFlavor="NA" /> < code codeSystem="local" code="FTEXTERNAL" displayName="FREE TEXT EXTERNAL" /> <statusCode code="completed" /> <effectiveTime value= "071254392257" /> <value unit="" xsi:type="PQ" value="METHICILLIN- RESISTANT STAPH AUREUS" /> <referenceRange> < observationRange> <text>NRG</text> </observationRange> </referenceRange> </observation> </component> < component> <observation moodCode="EVN" classCode="OBS"> < templateId root="16.840.1.573515.10..4.2" /> <id nullFlavor="NA " /> <code codeSystem="local" code="G" displayName="QUANTITY OF GROWTH " /> <statusCode code="completed" /> <effectiveTime value= "" /> <value unit="" xsi:type="PQ" value="." /> < referenceRange> <observationRange> <text>NRG</text> </observationRange> </referenceRange> </observation> </component> </organizer> </entry> <entry> <organizer moodCode="EVN" classCode="BATTERY"> <templateId root="06.27.840.1.848223.10..22.4.1" /> <id nullFlavor="NA" /> <code codeSystem="local" code="RML-SENS" displayName="RML Sensitivity Panel" /> <statusCode code="completed" /> <component> <observation moodCode="EVN" classCode="OBS"> < templateId root="06.27.840.1.762755.10..22.4.2" /> <id nullFlavor="NA " /> <code codeSystem="local" code="383-0" displayName="Oxacillin susceptibility test by minimum inhibitory concentration" /> < statusCode code="completed" /> <effectiveTime value="685678248631" /> <value unit="" xsi:type="PQ" value="R" /> <interpretationCode codeSystem="local" code="*" /> <referenceRange> < observationRange> <text>NRG</text> </observationRange> </referenceRange> </observation> </component> < component> <observation moodCode="EVN" classCode="OBS"> < templateId root="06.27.840.1.487601...22.4.2" /> <id nullFlavor="NA " /> <code codeSystem="local" code="193-3" displayName="Clindamycin susceptibility test by minimum inhibitory concentration" /> < statusCode code="completed" /> <effectiveTime value="812062456961" /> <value unit="" xsi:type="PQ" value="<=" /> < interpretationCode codeSystem="local" code="*" /> <referenceRange> <observationRange> <text>NRG</text> </ observationRange> </referenceRange> </observation> </ component> <component> <observation moodCode="EVN" classCode="OBS"> <templateId root="2.16.840.1.051726.10.20.22.4.2" /> <id nullFlavor="NA" /> <code codeSystem="local" code="233-7" displayName= "Erythromycin susceptibility test by minimum inhibitory concentration" /> <statusCode code="completed" /> <effectiveTime value="820851401441 " /> <value unit="" xsi:type="PQ" value=">" /> < interpretationCode codeSystem="local" code="*" /> <referenceRange> <observationRange> <text>NRG</text> </ observationRange> </referenceRange> </observation> </ component> <component> <observation moodCode="EVN" classCode="OBS"> <templateId root="2.16.840.1.432983.10.20.22.4.2" /> <id nullFlavor="NA" /> <code codeSystem="local" code="516-5" displayName= "Trimethoprim/sulfamethoxazole susceptibility test by minimum inhibitoryconcentration" /> <statusCode code="completed" /> < effectiveTime value="048199116796" /> <value unit="" xsi:type="PQ" value="S" /> <interpretationCode codeSystem="local" code="*" /> <referenceRange> <observationRange> <text>NRG</text> </observationRange> </referenceRange> </observation > </component> <component> <observation moodCode="EVN" classCode="OBS"> <templateId root="216.840.1.464249.10..22.4.2" /> <id nullFlavor="NA" /> <code codeSystem="local" code="524-9" displayName="Vancomycin susceptibility test by minimum inhibitory concentration " /> <statusCode code="completed" /> <effectiveTime value= "687189751374" /> <value unit="" xsi:type="PQ" value="1" /> < interpretationCode codeSystem="local" code="*" /> <referenceRange> <observationRange> <text>NRG</text> </ observationRange> </referenceRange> </observation> </ component> <component> <observation moodCode="EVN" classCode="OBS"> <templateId root="2.840.1.960050.10..4.2" /> <id nullFlavor="NA" /> <code codeSystem="local" code="93615-4" displayName= "Levofloxacin susceptibility test by minimum inhibitory concentration" /> <statusCode code="completed" /> <effectiveTime value="694269738947 " /> <value unit="" xsi:type="PQ" value="4" /> < interpretationCode codeSystem="local" code="*" /> <referenceRange> <observationRange> <text>NRG</text> </ observationRange> </referenceRange> </observation> </ component> <component> <observation moodCode="EVN" classCode="OBS"> <templateId root="216.840.1.639193.10..22.4.2" /> <id nullFlavor="NA" /> <code codeSystem="local" code="428-3" displayName= "Rifampin susceptibility test by minimum inhibitory concentration" /> < statusCode code="completed" /> <effectiveTime value="994698188069" /> <value unit="" xsi:type="PQ" value="<=" /> < interpretationCode codeSystem="local" code="*" /> <referenceRange> <observationRange> <text>NRG</text> </ observationRange> </referenceRange> </observation> </ component> <component> <observation moodCode="EVN" classCode="OBS"> <templateId root="16.840.1.507687.10..22.4.2" /> <id nullFlavor="NA" /> <code codeSystem="local" code="76-0" displayName= "Cefazolin susceptibility test by minimum inhibitory concentration" /> <statusCode code="completed" /> <effectiveTime value="922465151148" /> <value unit="" xsi:type="PQ" value=">" /> < interpretationCode codeSystem="local" code="*" /> <referenceRange> <observationRange> <text>NRG</text> </ observationRange> </referenceRange> </observation> </ component> <component> <observation moodCode="EVN" classCode="OBS"> <templateId root="16.840.1.597867.10.20.22.4.2" /> <id nullFlavor="NA" /> <code codeSystem="local" code="97336-0" displayName= "Linezolid susceptibility test by minimum inhibitory concentration" /> <statusCode code="completed" /> <effectiveTime value="014400899320" /> <value unit="" xsi:type="PQ" value="2" /> < interpretationCode codeSystem="local" code="*" /> <referenceRange> <observationRange> <text>NRG</text> </ observationRange> </referenceRange> </observation> </ component> <component> <observation moodCode="EVN" classCode="OBS"> <templateId root="16.840.1.821575.10..22.4.2" /> <id nullFlavor="NA" /> <code codeSystem="local" code="392-1" displayName= "Penicillin G susceptibility test by minimum inhibitory concentration" /> <statusCode code="completed" /> <effectiveTime value=" " /> <value unit="" xsi:type="PQ" value=">" /> < interpretationCode codeSystem="local" code="*" /> <referenceRange> <observationRange> <text>NRG</text> </ observationRange> </referenceRange> </observation> </ component> <component> <observation moodCode="EVN" classCode="OBS"> <templateId root="16.840.1.135438.10..4.2" /> <id nullFlavor="NA" /> <code codeSystem="local" code="43658-9" displayName= "Moxifloxacin susceptibility test by minimum inhibitory concentration" /> <statusCode code="completed" /> <effectiveTime value=" " /> <value unit="" xsi:type="PQ" value="S" /> < interpretationCode codeSystem="local" code="*" /> <referenceRange> <observationRange> <text>NRG</text> </ observationRange> </referenceRange> </observation> </ component> <component> <observation moodCode="EVN" classCode="OBS"> <templateId root="216.840.1.060698.10..22.4.2" /> <id nullFlavor="NA" /> <code codeSystem="local" code="335-0" displayName= "Minocycline sus SHAYNA" /> <statusCode code="completed" /> < effectiveTime value="" /> <value unit="" xsi:type="PQ" value="<=" /> <interpretationCode codeSystem="local" code="*" /> <referenceRange> <observationRange> <text>NRG</ text> </observationRange> </referenceRange> </ observation> </component> </organizer> </entry> <entry> <organizer moodCode="EVN" classCode="BATTERY"> <templateId root= "216.840.1.087354.1022.4.1" /> <id nullFlavor="NA" /> <code codeSystem="local" code="75325-1" displayName="Complete urinalysis with reflex to culture" /> <statusCode code="completed" /> <component> < observation moodCode="EVN" classCode="OBS"> <templateId root= "216.840.1.609482...4.2" /> <id nullFlavor="NA" /> < code codeSystem="local" code="5778-6" displayName="Urine color determination" / > <statusCode code="completed" /> <effectiveTime value= "756057596077" /> <value unit="" xsi:type="PQ" value="YELLOW" /> <referenceRange> <observationRange> <text>NRG</text > </observationRange> </referenceRange> </observation > </component> <component> <observation moodCode="EVN" classCode="OBS"> <templateId root="06.27.840.1.472292.10.22.4.2" /> <id nullFlavor="NA" /> <code codeSystem="local" code="21027-0 " displayName="Urine clarity determination" /> <statusCode code= "completed" /> <effectiveTime value="295564722913" /> <value unit="" xsi:type="PQ" value="VERY CLOUDY" /> <interpretationCode codeSystem="local" code="*" /> <referenceRange> < observationRange> <text>NRG</text> </observationRange> </referenceRange> </observation> </component> < component> <observation moodCode="EVN" classCode="OBS"> < templateId root="216.840.1.462192.10.20.22.4.2" /> <id nullFlavor="NA " /> <code codeSystem="local" code="5803-2" displayName="Urine pH measurement by test strip" /> <statusCode code="completed" /> <effectiveTime value="034955543836" /> <value unit="" xsi:type="PQ" value="6.5" /> <referenceRange> <observationRange> <text>5-9</text> </observationRange> </referenceRange> </observation> </component> <component> <observation moodCode="EVN" classCode="OBS"> <templateId root= "06.27.840.1.697773.10.22.4.2" /> <id nullFlavor="NA" /> < code codeSystem="local" code="5811-5" displayName="Specific gravity of urine by test strip" /> <statusCode code="completed" /> <effectiveTime value="723776094001" /> <value unit="" xsi:type="PQ" value="1.010" /> <interpretationCode codeSystem="local" code="" /> < referenceRange> <observationRange> <text>1.016-1.022</ text> </observationRange> </referenceRange> </ observation> </component> <component> <observation moodCode= "EVN" classCode="OBS"> <templateId root="06.27.840.1.097939.10.20.22.4.2 " /> <id nullFlavor="NA" /> <code codeSystem="local" code= "00017-4" displayName="Urine protein assay by test strip, semi-quantitative" /> <statusCode code="completed" /> <effectiveTime value= "855652715827" /> <value unit="" xsi:type="PQ" value="4+" /> < referenceRange> <observationRange> <text>NEGATIVE</text > </observationRange> </referenceRange> </observation > </component> <component> <observation moodCode="EVN" classCode="OBS"> <templateId root="2.16.840.1.636338.10..22.4.2" /> <id nullFlavor="NA" /> <code codeSystem="local" code="61403-8 " displayName="Urine glucose detection by automated test strip" /> < statusCode code="completed" /> <effectiveTime value="441623411274" /> <value unit="" xsi:type="PQ" value="NEGATIVE" /> < referenceRange> <observationRange> <text>NEGATIVE</text > </observationRange> </referenceRange> </observation > </component> <component> <observation moodCode="EVN" classCode="OBS"> <templateId root="2.16.840.1.857925.10.20.22.4.2" /> <id nullFlavor="NA" /> <code codeSystem="local" code="12028-4 " displayName="Erythrocytes detection in urine sediment by light microscopy" /> <statusCode code="completed" /> <effectiveTime value= "096893977347" /> <value unit="" xsi:type="PQ" value="4+" /> < interpretationCode codeSystem="local" code="*" /> <referenceRange> <observationRange> <text>NEGATIVE</text> </ observationRange> </referenceRange> </observation> </ component> <component> <observation moodCode="EVN" classCode="OBS"> <templateId root="216.840.1.960806.10..22.4.2" /> <id nullFlavor="NA" /> <code codeSystem="local" code="36233-9" displayName= "Urine ketones detection by automated test strip" /> <statusCode code= "completed" /> <effectiveTime value="039561495810" /> <value unit="" xsi:type="PQ" value="1+" /> <interpretationCode codeSystem= "local" code="*" /> <referenceRange> <observationRange> <text>NEGATIVE</text> </observationRange> </ referenceRange> </observation> </component> <component> <observation moodCode="EVN" classCode="OBS"> <templateId root= "216.840.1.382516...4.2" /> <id nullFlavor="NA" /> < code codeSystem="local" code="5802-4" displayName="Urine nitrite detection by test strip" /> <statusCode code="completed" /> <effectiveTime value="894632526288" /> <value unit="" xsi:type="PQ" value="POSITIVE" / > <interpretationCode codeSystem="local" code="*" /> < referenceRange> <observationRange> <text>NEGATIVE</text > </observationRange> </referenceRange> </observation > </component> <component> <observation moodCode="EVN" classCode="OBS"> <templateId root="2.16.840.1.300677.10..22.4.2" /> <id nullFlavor="NA" /> <code codeSystem="local" code="5770-3" displayName="Urine total bilirubin detection by test strip" /> < statusCode code="completed" /> <effectiveTime value="970128782477" /> <value unit="" xsi:type="PQ" value="NEGATIVE" /> < referenceRange> <observationRange> <text>NEGATIVE</text > </observationRange> </referenceRange> </observation > </component> <component> <observation moodCode="EVN" classCode="OBS"> <templateId root="216.840.1.111857.10..4.2" /> <id nullFlavor="NA" /> <code codeSystem="local" code="59073-8 " displayName="Urine urobilinogen measurement by automated test strip (mass/ volume)" /> <statusCode code="completed" /> <effectiveTime value="950798207647" /> <value unit="mg/dL" xsi:type="PQ" value="4" /> <interpretationCode codeSystem="local" code="*" /> < referenceRange> <observationRange> <text>NORMAL</text> </observationRange> </referenceRange> </observation> </component> <component> <observation moodCode="EVN" classCode ="OBS"> <templateId root="16.840.1.474079.02.28.22.4.2" /> < id nullFlavor="NA" /> <code codeSystem="local" code="5799-2" displayName="Urine leukocyte esterase detection by dipstick" /> < statusCode code="completed" /> <effectiveTime value="061601932666" /> <value unit="" xsi:type="PQ" value="3+" /> < interpretationCode codeSystem="local" code="*" /> <referenceRange> <observationRange> <text>NEGATIVE</text> </ observationRange> </referenceRange> </observation> </ component> <component> <observation moodCode="EVN" classCode="OBS"> <templateId root="16.840.1.945118.10..22.4.2" /> <id nullFlavor="NA" /> <code codeSystem="local" code="72902-1" displayName= "Automated urine sediment erythrocyte count by microscopy (number/high power field)" /> <statusCode code="completed" /> <effectiveTime value="913619059640" /> <value unit="[HPF]" xsi:type="PQ" value="" /> <interpretationCode codeSystem="local" code="*" /> < referenceRange> <observationRange> <text>NRG</text> </observationRange> </referenceRange> </observation> </component> <component> <observation moodCode="EVN" classCode= "OBS"> <templateId root="06.27.840.1.790780.1022.4.2" /> < id nullFlavor="NA" /> <code codeSystem="local" code="5821-4" displayName="Automated urine sediment leukocyte count by microscopy (number/ high power field)" /> <statusCode code="completed" /> < effectiveTime value="958047255974" /> <value unit="" xsi:type="PQ" value="TNTC" /> <interpretationCode codeSystem="local" code="*" /> <referenceRange> <observationRange> <text>NRG</ text> </observationRange> </referenceRange> </ observation> </component> <component> <observation moodCode= "EVN" classCode="OBS"> <templateId root="06.27.840.1.366304.10.20.22.4.2 " /> <id nullFlavor="NA" /> <code codeSystem="local" code= "05064-3" displayName="Bacteria detection in urine sediment by light microscopy " /> <statusCode code="completed" /> <effectiveTime value= "168788391325" /> <value unit="" xsi:type="PQ" value="LARGE" /> <interpretationCode codeSystem="local" code="*" /> <referenceRange> <observationRange> <text>NRG</text> </ observationRange> </referenceRange> </observation> </ component> <component> <observation moodCode="EVN" classCode="OBS"> <templateId root="216.840.1.103873.10.22.4.2" /> <id nullFlavor="NA" /> <code codeSystem="local" code="48067-6" displayName= "Squamous epithelial cells detection in urine sediment by light microscopy" /> <statusCode code="completed" /> <effectiveTime value= "002052307362" /> <value unit="" xsi:type="PQ" value="10-25" /> <interpretationCode codeSystem="local" code="*" /> <referenceRange> <observationRange> <text>NRG</text> </ observationRange> </referenceRange> </observation> </ component> <component> <observation moodCode="EVN" classCode="OBS"> <templateId root="06.27.840.1.587387.10.4.2" /> <id nullFlavor="NA" /> <code codeSystem="local" code="71926-4" displayName= "Crystals detection in urine sediment by light microscopy" /> < statusCode code="completed" /> <effectiveTime value="991081583084" /> <value unit="" xsi:type="PQ" value="NONE" /> <referenceRange> <observationRange> <text>NRG</text> </ observationRange> </referenceRange> </observation> </ component> <component> <observation moodCode="EVN" classCode="OBS"> <templateId root="16.840.1.413279.10.2022.4.2" /> <id nullFlavor="NA" /> <code codeSystem="local" code="96355-7" displayName= "Casts detection in urine sediment by light microscopy" /> <statusCode code="completed" /> <effectiveTime value="648313747006" /> < value unit="" xsi:type="PQ" value="NONE" /> <referenceRange> <observationRange> <text>NRG</text> </observationRange > </referenceRange> </observation> </component> < component> <observation moodCode="EVN" classCode="OBS"> < templateId root="2.16.840.1.684312.10.20.22.4.2" /> <id nullFlavor="NA " /> <code codeSystem="local" code="8247-9" displayName="Mucus detection in urine sediment by light microscopy" /> <statusCode code= "completed" /> <effectiveTime value="064334586899" /> <value unit="" xsi:type="PQ" value="NEGATIVE" /> <referenceRange> < observationRange> <text>NRG</text> </observationRange> </referenceRange> </observation> </component> < component> <observation moodCode="EVN" classCode="OBS"> < templateId root="2.16.840.1.254846.10.20.22.4.2" /> <id nullFlavor="NA " /> <code codeSystem="local" code="73236-0" displayName="Complete urinalysis with reflex to culture" /> <statusCode code="completed" /> <effectiveTime value="759103182153" /> <value unit="" xsi:type ="PQ" value="YES" /> <referenceRange> <observationRange> <text>NRG</text> </observationRange> </ referenceRange> </observation> </component> </organizer> </entry > <entry> <organizer moodCode="EVN" classCode="BATTERY"> <templateId root="16.840.1.183036.10...4.1" /> <id nullFlavor="NA" /> <code codeSystem="local" code="630-4" displayName="Bacterial urine culture" /> < statusCode code="completed" /> <component> <observation moodCode= "EVN" classCode="OBS"> <templateId root="06.27.840.1.964901.02.28.22.4.2 " /> <id nullFlavor="NA" /> <code codeSystem="local" code="630 -4" displayName="Bacterial urine culture" /> <statusCode code= "completed" /> <effectiveTime value="174494069200" /> <value unit="" xsi:type="PQ" value="284041615" /> <referenceRange> <observationRange> <text>NRG</text> </observationRange> </referenceRange> </observation> </component> < component> <observation moodCode="EVN" classCode="OBS"> < templateId root="840.1.608757.02.28.22.4.2" /> <id nullFlavor="NA " /> <code codeSystem="local" code="CC" displayName="COLONY COUNT" /> <statusCode code="completed" /> <effectiveTime value= "553093002678" /> <value unit="" xsi:type="PQ" value=">100,000/ML" / > <referenceRange> <observationRange> <text>NRG </text> </observationRange> </referenceRange> </ observation> </component> <component> <observation moodCode= "EVN" classCode="OBS"> <templateId root="06.27.840.1.160666.02.28.22.4.2 " /> <id nullFlavor="NA" /> <code codeSystem="local" code= "FTXENTRY" displayName="FTX;REPORTABLE" /> <statusCode code="completed " /> <effectiveTime value="834773669602" /> <value unit="" xsi :type="PQ" value="SUSCEPTIBILITY REPORTED 03-21-2018,1005" /> < referenceRange> <observationRange> <text>NRG</text> </observationRange> </referenceRange> </observation> </component> </organizer> </entry> <entry> <organizer moodCode="EVN" classCode="BATTERY"> <templateId root="216.840.1.555331.10..22.4.1" /> <id nullFlavor="NA" /> <code codeSystem="local" code="RML-SENS" displayName="RML Sensitivity Panel" /> <statusCode code="completed" /> <component> <observation moodCode="EVN" classCode="OBS"> < templateId root="216.840.1.463330.10..22.4.2" /> <id nullFlavor="NA " /> <code codeSystem="local" code="267-5" displayName="Gentamicin susceptibility test by minimum inhibitory concentration" /> < statusCode code="completed" /> <effectiveTime value="557714730947" /> <value unit="" xsi:type="PQ" value="<=" /> < interpretationCode codeSystem="local" code="*" /> <referenceRange> <observationRange> <text>NRG</text> </ observationRange> </referenceRange> </observation> </ component> <component> <observation moodCode="EVN" classCode="OBS"> <templateId root="216.840.1.739354.10..22.4.2" /> <id nullFlavor="NA" /> <code codeSystem="local" code="516-5" displayName= "Trimethoprim/sulfamethoxazole susceptibility test by minimum inhibitoryconcentration" /> <statusCode code="completed" /> < effectiveTime value="268748086429" /> <value unit="" xsi:type="PQ" value=">" /> <interpretationCode codeSystem="local" code="*" /> <referenceRange> <observationRange> <text>NRG</ text> </observationRange> </referenceRange> </ observation> </component> <component> <observation moodCode= "EVN" classCode="OBS"> <templateId root="2.16.840.1.734332.10..4.2 " /> <id nullFlavor="NA" /> <code codeSystem="local" code= "00623-4" displayName="Levofloxacin susceptibility test by minimum inhibitory concentration" /> <statusCode code="completed" /> < effectiveTime value="967584043121" /> <value unit="" xsi:type="PQ" value="<=" /> <interpretationCode codeSystem="local" code="*" /> <referenceRange> <observationRange> <text>NRG</ text> </observationRange> </referenceRange> </ observation> </component> <component> <observation moodCode= "EVN" classCode="OBS"> <templateId root="216.840.1.150328.10.22.4.2 " /> <id nullFlavor="NA" /> <code codeSystem="local" code="28- 1" displayName="Ampicillin susceptibility test by minimum inhibitory concentration" /> <statusCode code="completed" /> < effectiveTime value="205511940683" /> <value unit="" xsi:type="PQ" value=">" /> <interpretationCode codeSystem="local" code="*" /> <referenceRange> <observationRange> <text>NRG</ text> </observationRange> </referenceRange> </ observation> </component> <component> <observation moodCode= "EVN" classCode="OBS"> <templateId root="06.27.840.1.644736.10.20.22.4.2 " /> <id nullFlavor="NA" /> <code codeSystem="local" code="76- 0" displayName="Cefazolin susceptibility test by minimum inhibitory concentration" /> <statusCode code="completed" /> < effectiveTime value="159689122979" /> <value unit="" xsi:type="PQ" value="2" /> <interpretationCode codeSystem="local" code="*" /> <referenceRange> <observationRange> <text>NRG</text> </observationRange> </referenceRange> </observation > </component> <component> <observation moodCode="EVN" classCode="OBS"> <templateId root="840.1.465124.10..22.4.2" /> <id nullFlavor="NA" /> <code codeSystem="local" code="141-2" displayName="Ceftriaxone susceptibility test by minimum inhibitory concentration " /> <statusCode code="completed" /> <effectiveTime value= "349413624313" /> <value unit="" xsi:type="PQ" value="<=" /> <interpretationCode codeSystem="local" code="*" /> <referenceRange> <observationRange> <text>NRG</text> </ observationRange> </referenceRange> </observation> </ component> <component> <observation moodCode="EVN" classCode="OBS"> <templateId root="06.27.840.1.926787.10.20.22.4.2" /> <id nullFlavor="NA" /> <code codeSystem="local" code="185-9" displayName= "Ciprofloxacin susceptibility test by minimum inhibitory concentration" /> <statusCode code="completed" /> <effectiveTime value="090155019313 " /> <value unit="" xsi:type="PQ" value="<=" /> < interpretationCode codeSystem="local" code="*" /> <referenceRange> <observationRange> <text>NRG</text> </ observationRange> </referenceRange> </observation> </ component> <component> <observation moodCode="EVN" classCode="OBS"> <templateId root="2.16.840.1.059287.10..22.4.2" /> <id nullFlavor="NA" /> <code codeSystem="local" code="6652-2" displayName= "Meropenem susceptibility test by minimum inhibitory concentration" /> <statusCode code="completed" /> <effectiveTime value="439308974043" /> <value unit="" xsi:type="PQ" value="<=" /> < interpretationCode codeSystem="local" code="*" /> <referenceRange> <observationRange> <text>NRG</text> </ observationRange> </referenceRange> </observation> </ component> <component> <observation moodCode="EVN" classCode="OBS"> <templateId root="2.16.840.1.044592.10.20.22.4.2" /> <id nullFlavor="NA" /> <code codeSystem="local" code="363-2" displayName= "Nitrofurantoin susceptibility test by minimum inhibitory concentration" /> <statusCode code="completed" /> <effectiveTime value= "156886218389" /> <value unit="" xsi:type="PQ" value="<=" /> <interpretationCode codeSystem="local" code="*" /> <referenceRange> <observationRange> <text>NRG</text> </ observationRange> </referenceRange> </observation> </ component> <component> <observation moodCode="EVN" classCode="OBS"> <templateId root="216.840.1.145473.10.20.22.4.2" /> <id nullFlavor="NA" /> <code codeSystem="local" code="20" displayName= "Amoxicillin and clavulanate potassium susc SHAYNA" /> <statusCode code= "completed" /> <effectiveTime value="554985622563" /> <value unit="" xsi:type="PQ" value="=" /> <interpretationCode codeSystem= "local" code="*" /> <referenceRange> <observationRange> <text>NRG</text> </observationRange> </ referenceRange> </observation> </component> </organizer> </entry > <entry> <organizer moodCode="EVN" classCode="BATTERY"> <templateId root="216.840.1.720691.10.20.22.4.1" /> <id nullFlavor="NA" /> <code codeSystem="local" code="10721-8" displayName="Complete blood count (CBC) with automated white blood cell (WBC) differential" /> <statusCode code= "completed" /> <component> <observation moodCode="EVN" classCode= "OBS"> <templateId root="216.840.1.729881.10.20.22.4.2" /> < id nullFlavor="NA" /> <code codeSystem="local" code="6690-2" displayName="Blood leukocytes automated count (number/volume)" /> < statusCode code="completed" /> <effectiveTime value="120224561001" /> <value unit="10*3/uL" xsi:type="PQ" value="18.7" /> < interpretationCode codeSystem="local" code="" /> <referenceRange> <observationRange> <text>4.3-11.0</text> </ observationRange> </referenceRange> </observation> </ component> <component> <observation moodCode="EVN" classCode="OBS"> <templateId root="2.16.840.1.206664.10..22.4.2" /> <id nullFlavor="NA" /> <code codeSystem="local" code="789-8" displayName= "Blood erythrocytes automated count (number/volume)" /> <statusCode code="completed" /> <effectiveTime value="070068295542" /> < value unit="10*6/uL" xsi:type="PQ" value="4.35" /> <referenceRange> <observationRange> <text>4.35-5.85</text> </ observationRange> </referenceRange> </observation> </ component> <component> <observation moodCode="EVN" classCode="OBS"> <templateId root="2.16.840.1.438337.10...4.2" /> <id nullFlavor="NA" /> <code codeSystem="local" code="86167-0" displayName= "Venous blood hemoglobin measurement (mass/volume)" /> <statusCode code ="completed" /> <effectiveTime value="409395100958" /> <value unit="g/dL" xsi:type="PQ" value="10.7" /> <interpretationCode codeSystem="local" code="" /> <referenceRange> < observationRange> <text>11.5-16.0</text> </ observationRange> </referenceRange> </observation> </ component> <component> <observation moodCode="EVN" classCode="OBS"> <templateId root="2.16.840.1.100266.10.20.22.4.2" /> <id nullFlavor="NA" /> <code codeSystem="local" code="25221-5" displayName= "Blood hematocrit (volume fraction)" /> <statusCode code="completed" / > <effectiveTime value="609453931372" /> <value unit="%" xsi:type="PQ" value="33" /> <interpretationCode codeSystem="local" code ="" /> <referenceRange> <observationRange> < text>35-52</text> </observationRange> </referenceRange> </observation> </component> <component> <observation moodCode="EVN" classCode="OBS"> <templateId root= "216.840.1.367697.10.22.4.2" /> <id nullFlavor="NA" /> < code codeSystem="local" code="787-2" displayName="Automated erythrocyte mean corpuscular volume" /> <statusCode code="completed" /> < effectiveTime value="725191952114" /> <value unit="[foz_us]" xsi:type= "PQ" value="75" /> <interpretationCode codeSystem="local" code="" /> <referenceRange> <observationRange> <text>80- 99</text> </observationRange> </referenceRange> </ observation> </component> <component> <observation moodCode= "EVN" classCode="OBS"> <templateId root="16.840.1.518886.10.20.22.4.2 " /> <id nullFlavor="NA" /> <code codeSystem="local" code="785 -6" displayName="Automated erythrocyte mean corpuscular hemoglobin (mass per erythrocyte)" /> <statusCode code="completed" /> < effectiveTime value="127631537120" /> <value unit="pg" xsi:type="PQ" value="25" /> <referenceRange> <observationRange> <text>25-34</text> </observationRange> </referenceRange > </observation> </component> <component> <observation moodCode="EVN" classCode="OBS"> <templateId root= "2.16.840.1.965062.10.20.22.4.2" /> <id nullFlavor="NA" /> < code codeSystem="local" code="786-4" displayName="Automated erythrocyte mean corpuscular hemoglobin concentration measurement (mass/volume)" /> < statusCode code="completed" /> <effectiveTime value="895903991424" /> <value unit="g/dL" xsi:type="PQ" value="33" /> <referenceRange > <observationRange> <text>32-36</text> </ observationRange> </referenceRange> </observation> </ component> <component> <observation moodCode="EVN" classCode="OBS"> <templateId root="2.16.840.1.472785.10..22.4.2" /> <id nullFlavor="NA" /> <code codeSystem="local" code="788-0" displayName= "Automated erythrocyte distribution width ratio" /> <statusCode code= "completed" /> <effectiveTime value="743211068731" /> <value unit="%" xsi:type="PQ" value="21.0" /> <interpretationCode codeSystem="local" code="" /> <referenceRange> < observationRange> <text>10.0-14.5</text> </ observationRange> </referenceRange> </observation> </ component> <component> <observation moodCode="EVN" classCode="OBS"> <templateId root="2.16.840.1.037023.10.20.4.2" /> <id nullFlavor="NA" /> <code codeSystem="local" code="777-3" displayName= "Automated blood platelet count (count/volume)" /> <statusCode code= "completed" /> <effectiveTime value="825692659204" /> <value unit="10*3/uL" xsi:type="PQ" value="348" /> <referenceRange> <observationRange> <text>130-400</text> </ observationRange> </referenceRange> </observation> </ component> <component> <observation moodCode="EVN" classCode="OBS"> <templateId root="216.840.1.635879.1022.4.2" /> <id nullFlavor="NA" /> <code codeSystem="local" code="51615-4" displayName= "Automated blood platelet mean volume measurement" /> <statusCode code= "completed" /> <effectiveTime value="836471671797" /> <value unit="[foz_us]" xsi:type="PQ" value="11.0" /> <interpretationCode codeSystem="local" code="" /> <referenceRange> < observationRange> <text>7.4-10.4</text> </ observationRange> </referenceRange> </observation> </ component> <component> <observation moodCode="EVN" classCode="OBS"> <templateId root="216.840.1.377432.10.22.4.2" /> <id nullFlavor="NA" /> <code codeSystem="local" code="770-8" displayName= "Automated blood neutrophils/100 leukocytes" /> <statusCode code= "completed" /> <effectiveTime value="886229606638" /> <value unit="%" xsi:type="PQ" value="86" /> <interpretationCode codeSystem ="local" code="" /> <referenceRange> <observationRange> <text>42-75</text> </observationRange> </ referenceRange> </observation> </component> <component> <observation moodCode="EVN" classCode="OBS"> <templateId root= "2.16.840.1.589603.10.20.22.4.2" /> <id nullFlavor="NA" /> < code codeSystem="local" code="736-9" displayName="Automated blood lymphocytes/ 100 leukocytes" /> <statusCode code="completed" /> < effectiveTime value="884852690285" /> <value unit="%" xsi:type="PQ " value="6" /> <interpretationCode codeSystem="local" code="" /> <referenceRange> <observationRange> <text>12-44</ text> </observationRange> </referenceRange> </ observation> </component> <component> <observation moodCode= "EVN" classCode="OBS"> <templateId root="216.840.1.142624.10..4.2 " /> <id nullFlavor="NA" /> <code codeSystem="local" code= "89967-5" displayName="Blood monocytes/100 leukocytes" /> <statusCode code="completed" /> <effectiveTime value="960623927831" /> < value unit="%" xsi:type="PQ" value="8" /> <referenceRange> <observationRange> <text>0-12</text> </ observationRange> </referenceRange> </observation> </ component> <component> <observation moodCode="EVN" classCode="OBS"> <templateId root="2.16.840.1.723986.10.20.22.4.2" /> <id nullFlavor="NA" /> <code codeSystem="local" code="713-8" displayName= "Automated blood eosinophils/100 leukocytes" /> <statusCode code= "completed" /> <effectiveTime value="899549141196" /> <value unit="%" xsi:type="PQ" value="0" /> <referenceRange> < observationRange> <text>0-10</text> </observationRange> </referenceRange> </observation> </component> < component> <observation moodCode="EVN" classCode="OBS"> < templateId root="2.16.840.1.637660.10.20.22.4.2" /> <id nullFlavor="NA " /> <code codeSystem="local" code="706-2" displayName="Automated blood basophils/100 leukocytes" /> <statusCode code="completed" /> <effectiveTime value="884910939226" /> <value unit="%" xsi: type="PQ" value="0" /> <referenceRange> <observationRange> <text>0-10</text> </observationRange> </ referenceRange> </observation> </component> <component> <observation moodCode="EVN" classCode="OBS"> <templateId root= "2.16.840.1.424705.10.20.22.4.2" /> <id nullFlavor="NA" /> < code codeSystem="local" code="751-8" displayName="Blood neutrophils automated count (number/volume)" /> <statusCode code="completed" /> < effectiveTime value="415913905264" /> <value unit="10*3" xsi:type="PQ" value="16.0" /> <interpretationCode codeSystem="local" code="" /> <referenceRange> <observationRange> <text>1.8-7.8 </text> </observationRange> </referenceRange> </ observation> </component> <component> <observation moodCode= "EVN" classCode="OBS"> <templateId root="2.16.840.1.746138.10..22.4.2 " /> <id nullFlavor="NA" /> <code codeSystem="local" code="731 -0" displayName="Blood lymphocytes automated count (number/volume)" /> <statusCode code="completed" /> <effectiveTime value="198790723722" /> <value unit="10*3" xsi:type="PQ" value="1.2" /> < referenceRange> <observationRange> <text>1.0-4.0</text> </observationRange> </referenceRange> </observation > </component> <component> <observation moodCode="EVN" classCode="OBS"> <templateId root="216.840.1.238675.02.28.22.4.2" /> <id nullFlavor="NA" /> <code codeSystem="local" code="742-7" displayName="Blood monocytes automated count (number/volume)" /> < statusCode code="completed" /> <effectiveTime value="212829332634" /> <value unit="10*3" xsi:type="PQ" value="1.5" /> < interpretationCode codeSystem="local" code="" /> <referenceRange> <observationRange> <text>0.0-1.0</text> </ observationRange> </referenceRange> </observation> </ component> <component> <observation moodCode="EVN" classCode="OBS"> <templateId root="2.16.840.1.809256.10.20.22.4.2" /> <id nullFlavor="NA" /> <code codeSystem="local" code="711-2" displayName= "Automated eosinophil count" /> <statusCode code="completed" /> <effectiveTime value="897145165236" /> <value unit="10*3/uL" xsi: type="PQ" value="0.0" /> <referenceRange> <observationRange > <text>0.0-0.3</text> </observationRange> </ referenceRange> </observation> </component> <component> <observation moodCode="EVN" classCode="OBS"> <templateId root= "06.27.840.1.059680.10..4.2" /> <id nullFlavor="NA" /> < code codeSystem="local" code="704-7" displayName="Automated blood basophil count (count/volume)" /> <statusCode code="completed" /> < effectiveTime value="480955055074" /> <value unit="10*3/uL" xsi:type= "PQ" value="0.0" /> <referenceRange> <observationRange> <text>0.0-0.1</text> </observationRange> </ referenceRange> </observation> </component> </organizer> </entry > <entry> <organizer moodCode="EVN" classCode="BATTERY"> <templateId root="06.27.840.1.291044.10...4.1" /> <id nullFlavor="NA" /> <code codeSystem="local" code="93063-7" displayName="Blood lactic acid measurement ( moles/volume)" /> <statusCode code="completed" /> <component> < observation moodCode="EVN" classCode="OBS"> <templateId root= "06.27.840.1.824268.10.22.4.2" /> <id nullFlavor="NA" /> < code codeSystem="local" code="58426-3" displayName="Blood lactic acid measurement (moles/volume)" /> <statusCode code="completed" /> <effectiveTime value="339595417526" /> <value unit="mmol/L" xsi:type= "PQ" value="2.13" /> <interpretationCode codeSystem="local" code="" / > <referenceRange> <observationRange> <text> 0.50-2.00</text> </observationRange> </referenceRange> </observation> </component> </organizer> </entry> <entry> < organizer moodCode="EVN" classCode="BATTERY"> <templateId root= "2.16.840.1.418278.10.20.22.4.1" /> <id nullFlavor="NA" /> <code codeSystem="local" code="600-7" displayName="Bacterial blood culture" /> < statusCode code="completed" /> <component> <observation moodCode= "EVN" classCode="OBS"> <templateId root="2.16.840.1.775667.10.20.22.4.2 " /> <id nullFlavor="NA" /> <code codeSystem="local" code="600 -7" displayName="Bacterial blood culture" /> <statusCode code= "completed" /> <effectiveTime value="807594214816" /> <value unit="" xsi:type="PQ" value="NG" /> <referenceRange> < observationRange> <text>NRG</text> </observationRange> </referenceRange> </observation> </component> </ organizer> </entry> <entry> <organizer moodCode="EVN" classCode="BATTERY"> <templateId root="2.16.840.1.166994.10.20.22.4.1" /> <id nullFlavor= "NA" /> <code codeSystem="local" code="600-7" displayName="Bacterial blood culture" /> <statusCode code="completed" /> <component> < observation moodCode="EVN" classCode="OBS"> <templateId root= "2.16.840.1.384770.10.20.22.4.2" /> <id nullFlavor="NA" /> < code codeSystem="local" code="600-7" displayName="Bacterial blood culture" /> <statusCode code="completed" /> <effectiveTime value= "325545282487" /> <value unit="" xsi:type="PQ" value="NG" /> < referenceRange> <observationRange> <text>NRG</text> </observationRange> </referenceRange> </observation> </component> </organizer> </entry> <entry> <organizer moodCode="EVN" classCode="BATTERY"> <templateId root="2.16.840.1.648777.10.20.22.4.1" /> <id nullFlavor="NA" /> <code codeSystem="local" code="40376-2" displayName="Influenza virus A and B antigen detection" /> <statusCode code ="completed" /> <component> <observation moodCode="EVN" classCode= "OBS"> <templateId root="2.16.840.1.831045.10.20.22.4.2" /> < id nullFlavor="NA" /> <code codeSystem="local" code="FLURESULT" displayName="FLU RESULT" /> <statusCode code="completed" /> < effectiveTime value="145096518952" /> <value unit="" xsi:type="PQ" value="NEGATIVE FOR INFLUENZA A AND B ANTIGENS BY IA" /> < referenceRange> <observationRange> <text>NRG</text> </observationRange> </referenceRange> </observation> </component> </organizer> </entry> <entry> <organizer moodCode="EVN" classCode="BATTERY"> <templateId root="06.27.840.1.540972.10..22.4.1" /> <id nullFlavor="NA" /> <code codeSystem="local" code="2524" displayName="Serum or plasma lactate measurement (moles/volume)" /> < statusCode code="completed" /> <component> <observation moodCode= "EVN" classCode="OBS"> <templateId root="06.27.840.1.676896.10.22.4.2 " /> <id nullFlavor="NA" /> <code codeSystem="local" code= "2524" displayName="Serum or plasma lactate measurement (moles/volume)" /> <statusCode code="completed" /> <effectiveTime value= "587648681222" /> <value unit="mmol/L" xsi:type="PQ" value="0.83" /> <referenceRange> <observationRange> <text>0.50- 2.00</text> </observationRange> </referenceRange> </ observation> </component> </organizer> </entry> <entry> <organizer moodCode="EVN" classCode="BATTERY"> <templateId root= "06.27.840.1.451299.10..22.4.1" /> <id nullFlavor="NA" /> <code codeSystem="local" code="02919-5" displayName="Complete blood count (CBC) with automated white blood cell (WBC) differential" /> <statusCode code= "completed" /> <component> <observation moodCode="EVN" classCode= "OBS"> <templateId root="06.27.840.1.511483.10.20.22.4.2" /> < id nullFlavor="NA" /> <code codeSystem="local" code="6690-2" displayName="Blood leukocytes automated count (number/volume)" /> < statusCode code="completed" /> <effectiveTime value="011380724644" /> <value unit="10*3/uL" xsi:type="PQ" value="12.7" /> < interpretationCode codeSystem="local" code="" /> <referenceRange> <observationRange> <text>4.3-11.0</text> </ observationRange> </referenceRange> </observation> </ component> <component> <observation moodCode="EVN" classCode="OBS"> <templateId root="2.16.840.1.007145.10..22.4.2" /> <id nullFlavor="NA" /> <code codeSystem="local" code="789-8" displayName= "Blood erythrocytes automated count (number/volume)" /> <statusCode code="completed" /> <effectiveTime value="977406977695" /> < value unit="10*6/uL" xsi:type="PQ" value="3.41" /> <interpretationCode codeSystem="local" code="" /> <referenceRange> < observationRange> <text>4.35-5.85</text> </ observationRange> </referenceRange> </observation> </ component> <component> <observation moodCode="EVN" classCode="OBS"> <templateId root="2.16.840.1.747581.10.22.4.2" /> <id nullFlavor="NA" /> <code codeSystem="local" code="85699-4" displayName= "Venous blood hemoglobin measurement (mass/volume)" /> <statusCode code ="completed" /> <effectiveTime value="457389412601" /> <value unit="g/dL" xsi:type="PQ" value="8.3" /> <interpretationCode codeSystem ="local" code="" /> <referenceRange> <observationRange> <text>11.5-16.0</text> </observationRange> </ referenceRange> </observation> </component> <component> <observation moodCode="EVN" classCode="OBS"> <templateId root= "216.840.1.543160.10.20.22.4.2" /> <id nullFlavor="NA" /> < code codeSystem="local" code="26315-4" displayName="Blood hematocrit (volume fraction)" /> <statusCode code="completed" /> <effectiveTime value="740134412491" /> <value unit="%" xsi:type="PQ" value="26" / > <interpretationCode codeSystem="local" code="" /> < referenceRange> <observationRange> <text>35-52</text> </observationRange> </referenceRange> </observation> </component> <component> <observation moodCode="EVN" classCode= "OBS"> <templateId root="16.840.1.232082.10..4.2" /> < id nullFlavor="NA" /> <code codeSystem="local" code="787-2" displayName ="Automated erythrocyte mean corpuscular volume" /> <statusCode code= "completed" /> <effectiveTime value="782542797054" /> <value unit="[foz_us]" xsi:type="PQ" value="77" /> <interpretationCode codeSystem="local" code="" /> <referenceRange> < observationRange> <text>80-99</text> </observationRange > </referenceRange> </observation> </component> < component> <observation moodCode="EVN" classCode="OBS"> < templateId root="216.840.1.457711.10.20.22.4.2" /> <id nullFlavor="NA " /> <code codeSystem="local" code="785-6" displayName="Automated erythrocyte mean corpuscular hemoglobin (mass per erythrocyte)" /> < statusCode code="completed" /> <effectiveTime value="163356673696" /> <value unit="pg" xsi:type="PQ" value="24" /> < interpretationCode codeSystem="local" code="" /> <referenceRange> <observationRange> <text>25-34</text> </ observationRange> </referenceRange> </observation> </ component> <component> <observation moodCode="EVN" classCode="OBS"> <templateId root="2.16.840.1.471292.10.20.22.4.2" /> <id nullFlavor="NA" /> <code codeSystem="local" code="786-4" displayName= "Automated erythrocyte mean corpuscular hemoglobin concentration measurement ( mass/volume)" /> <statusCode code="completed" /> < effectiveTime value="636309734911" /> <value unit="g/dL" xsi:type="PQ" value="31" /> <interpretationCode codeSystem="local" code="" /> <referenceRange> <observationRange> <text>32-36</ text> </observationRange> </referenceRange> </ observation> </component> <component> <observation moodCode= "EVN" classCode="OBS"> <templateId root="2.16.840.1.865860.10.20.22.4.2 " /> <id nullFlavor="NA" /> <code codeSystem="local" code="788 -0" displayName="Automated erythrocyte distribution width ratio" /> < statusCode code="completed" /> <effectiveTime value="102745562719" /> <value unit="%" xsi:type="PQ" value="19.9" /> < interpretationCode codeSystem="local" code="" /> <referenceRange> <observationRange> <text>10.0-14.5</text> </ observationRange> </referenceRange> </observation> </ component> <component> <observation moodCode="EVN" classCode="OBS"> <templateId root="2.16.840.1.299198.10..22.4.2" /> <id nullFlavor="NA" /> <code codeSystem="local" code="777-3" displayName= "Automated blood platelet count (count/volume)" /> <statusCode code= "completed" /> <effectiveTime value="082383975559" /> <value unit="10*3/uL" xsi:type="PQ" value="222" /> <referenceRange> <observationRange> <text>130-400</text> </ observationRange> </referenceRange> </observation> </ component> <component> <observation moodCode="EVN" classCode="OBS"> <templateId root="2.16.840.1.250368.10...4.2" /> <id nullFlavor="NA" /> <code codeSystem="local" code="57627-8" displayName= "Automated blood platelet mean volume measurement" /> <statusCode code= "completed" /> <effectiveTime value="162747929203" /> <value unit="[foz_us]" xsi:type="PQ" value="11.0" /> <interpretationCode codeSystem="local" code="" /> <referenceRange> < observationRange> <text>7.4-10.4</text> </ observationRange> </referenceRange> </observation> </ component> <component> <observation moodCode="EVN" classCode="OBS"> <templateId root="2.16.840.1.742185.10.20.22.4.2" /> <id nullFlavor="NA" /> <code codeSystem="local" code="770-8" displayName= "Automated blood neutrophils/100 leukocytes" /> <statusCode code= "completed" /> <effectiveTime value="255004270238" /> <value unit="%" xsi:type="PQ" value="87" /> <interpretationCode codeSystem ="local" code="" /> <referenceRange> <observationRange> <text>42-75</text> </observationRange> </ referenceRange> </observation> </component> <component> <observation moodCode="EVN" classCode="OBS"> <templateId root= "16.840.1.125424.10.2022.4.2" /> <id nullFlavor="NA" /> < code codeSystem="local" code="736-9" displayName="Automated blood lymphocytes/ 100 leukocytes" /> <statusCode code="completed" /> < effectiveTime value="775185133656" /> <value unit="%" xsi:type="PQ " value="5" /> <interpretationCode codeSystem="local" code="" /> <referenceRange> <observationRange> <text>12-44</ text> </observationRange> </referenceRange> </ observation> </component> <component> <observation moodCode= "EVN" classCode="OBS"> <templateId root="06.27.840.1.687345.10.20.22.4.2 " /> <id nullFlavor="NA" /> <code codeSystem="local" code= "57609-2" displayName="Blood monocytes/100 leukocytes" /> <statusCode code="completed" /> <effectiveTime value="622406722236" /> < value unit="%" xsi:type="PQ" value="7" /> <referenceRange> <observationRange> <text>0-12</text> </ observationRange> </referenceRange> </observation> </ component> <component> <observation moodCode="EVN" classCode="OBS"> <templateId root="216.840.1.471206.10.20.22.4.2" /> <id nullFlavor="NA" /> <code codeSystem="local" code="713-8" displayName= "Automated blood eosinophils/100 leukocytes" /> <statusCode code= "completed" /> <effectiveTime value="288416715114" /> <value unit="%" xsi:type="PQ" value="0" /> <referenceRange> < observationRange> <text>0-10</text> </observationRange> </referenceRange> </observation> </component> < component> <observation moodCode="EVN" classCode="OBS"> < templateId root="06.27.840.1.181000.10.20.22.4.2" /> <id nullFlavor="NA " /> <code codeSystem="local" code="706-2" displayName="Automated blood basophils/100 leukocytes" /> <statusCode code="completed" /> <effectiveTime value="410883690736" /> <value unit="%" xsi: type="PQ" value="0" /> <referenceRange> <observationRange> <text>0-10</text> </observationRange> </ referenceRange> </observation> </component> <component> <observation moodCode="EVN" classCode="OBS"> <templateId root= "16.840.1.476416.10.20.22.4.2" /> <id nullFlavor="NA" /> < code codeSystem="local" code="751-8" displayName="Blood neutrophils automated count (number/volume)" /> <statusCode code="completed" /> < effectiveTime value="578127049611" /> <value unit="10*3" xsi:type="PQ" value="11.1" /> <interpretationCode codeSystem="local" code="" /> <referenceRange> <observationRange> <text>1.8-7.8 </text> </observationRange> </referenceRange> </ observation> </component> <component> <observation moodCode= "EVN" classCode="OBS"> <templateId root="2.16.840.1.789318.10..22.4.2 " /> <id nullFlavor="NA" /> <code codeSystem="local" code="731 -0" displayName="Blood lymphocytes automated count (number/volume)" /> <statusCode code="completed" /> <effectiveTime value="" /> <value unit="10*3" xsi:type="PQ" value="0.7" /> < interpretationCode codeSystem="local" code="" /> <referenceRange> <observationRange> <text>1.0-4.0</text> </ observationRange> </referenceRange> </observation> </ component> <component> <observation moodCode="EVN" classCode="OBS"> <templateId root="2.16.840.1.274689.10.2022.4.2" /> <id nullFlavor="NA" /> <code codeSystem="local" code="742-7" displayName= "Blood monocytes automated count (number/volume)" /> <statusCode code= "completed" /> <effectiveTime value="456157210334" /> <value unit="10*3" xsi:type="PQ" value="0.9" /> <referenceRange> < observationRange> <text>0.0-1.0</text> </ observationRange> </referenceRange> </observation> </ component> <component> <observation moodCode="EVN" classCode="OBS"> <templateId root="216.840.1.941831.10..22.4.2" /> <id nullFlavor="NA" /> <code codeSystem="local" code="711-2" displayName= "Automated eosinophil count" /> <statusCode code="completed" /> <effectiveTime value="" /> <value unit="10*3/uL" xsi: type="PQ" value="0.0" /> <referenceRange> <observationRange > <text>0.0-0.3</text> </observationRange> </ referenceRange> </observation> </component> <component> <observation moodCode="EVN" classCode="OBS"> <templateId root= "06.27.840.1.031270.02.28.22.4.2" /> <id nullFlavor="NA" /> < code codeSystem="local" code="704-7" displayName="Automated blood basophil count (count/volume)" /> <statusCode code="completed" /> < effectiveTime value="" /> <value unit="10*3/uL" xsi:type= "PQ" value="0.0" /> <referenceRange> <observationRange> <text>0.0-0.1</text> </observationRange> </ referenceRange> </observation> </component> </organizer> </entry > <entry> <organizer moodCode="EVN" classCode="BATTERY"> <templateId root="216.840.1.457863.10..22.4.1" /> <id nullFlavor="NA" /> <code codeSystem="local" code="10250-4" displayName="Comprehensive metabolic panel" / > <statusCode code="completed" /> <component> <observation moodCode="EVN" classCode="OBS"> <templateId root= "216.840.1.542532.10.20.22.4.2" /> <id nullFlavor="NA" /> < code codeSystem="local" code="2951-2" displayName="Serum or plasma sodium measurement (moles/volume)" /> <statusCode code="completed" /> <effectiveTime value="913946346579" /> <value unit="mmol/L" xsi:type= "PQ" value="137" /> <referenceRange> <observationRange> <text>135-145</text> </observationRange> </ referenceRange> </observation> </component> <component> <observation moodCode="EVN" classCode="OBS"> <templateId root= "06.27.840.1.762480.10.22.4.2" /> <id nullFlavor="NA" /> < code codeSystem="local" code="2823-3" displayName="Serum or plasma potassium measurement (moles/volume)" /> <statusCode code="completed" /> <effectiveTime value="006881527429" /> <value unit="mmol/L" xsi:type= "PQ" value="2.9" /> <interpretationCode codeSystem="local" code="" / > <referenceRange> <observationRange> <text>3.6 -5.0</text> </observationRange> </referenceRange> </ observation> </component> <component> <observation moodCode= "EVN" classCode="OBS"> <templateId root="216.840.1.942714.10.20.22.4.2 " /> <id nullFlavor="NA" /> <code codeSystem="local" code= "2075-0" displayName="Serum or plasma chloride measurement (moles/volume)" /> <statusCode code="completed" /> <effectiveTime value= "169247166322" /> <value unit="mmol/L" xsi:type="PQ" value="113" /> <interpretationCode codeSystem="local" code="" /> < referenceRange> <observationRange> <text>98-107</text> </observationRange> </referenceRange> </observation> </component> <component> <observation moodCode="EVN" classCode ="OBS"> <templateId root="2.16.840.1.789475.10.20.22.4.2" /> < id nullFlavor="NA" /> <code codeSystem="local" code="2028-01" displayName="Carbon dioxide" /> <statusCode code="completed" /> <effectiveTime value="021739557999" /> <value unit="mmol/L" xsi:type ="PQ" value="18" /> <interpretationCode codeSystem="local" code="" / > <referenceRange> <observationRange> <text>21- 32</text> </observationRange> </referenceRange> </ observation> </component> <component> <observation moodCode= "EVN" classCode="OBS"> <templateId root="2.16.840.1.065627.10.20.22.4.2 " /> <id nullFlavor="NA" /> <code codeSystem="local" code= "72023-2" displayName="Serum or plasma anion gap determination (moles/volume)" / > <statusCode code="completed" /> <effectiveTime value= "882674324875" /> <value unit="mmol/L" xsi:type="PQ" value="6" /> <referenceRange> <observationRange> <text>5-14</ text> </observationRange> </referenceRange> </ observation> </component> <component> <observation moodCode= "EVN" classCode="OBS"> <templateId root="2.16.840.1.778721.10..22.4.2 " /> <id nullFlavor="NA" /> <code codeSystem="local" code= "3094-0" displayName="Serum or plasma urea nitrogen measurement (mass/volume)" / > <statusCode code="completed" /> <effectiveTime value= "481104169334" /> <value unit="mg/dL" xsi:type="PQ" value="12" /> <referenceRange> <observationRange> <text>7-18</ text> </observationRange> </referenceRange> </ observation> </component> <component> <observation moodCode= "EVN" classCode="OBS"> <templateId root="2.16.840.1.990956.10..22.4.2 " /> <id nullFlavor="NA" /> <code codeSystem="local" code= "2160-0" displayName="Serum or plasma creatinine measurement (mass/volume)" /> <statusCode code="completed" /> <effectiveTime value= "147095707037" /> <value unit="mg/dL" xsi:type="PQ" value="0.68" /> <referenceRange> <observationRange> <text>0.60- 1.30</text> </observationRange> </referenceRange> </ observation> </component> <component> <observation moodCode= "EVN" classCode="OBS"> <templateId root="2.16.840.1.547461.10..22.4.2 " /> <id nullFlavor="NA" /> <code codeSystem="local" code= "3097-3" displayName="Serum or plasma urea nitrogen/creatinine mass ratio" /> <statusCode code="completed" /> <effectiveTime value= "417001619321" /> <value unit="" xsi:type="PQ" value="18" /> < referenceRange> <observationRange> <text>NRG</text> </observationRange> </referenceRange> </observation> </component> <component> <observation moodCode="EVN" classCode= "OBS"> <templateId root="2.16.840.1.084238.10.20.22.4.2" /> < id nullFlavor="NA" /> <code codeSystem="local" code="35508-1" displayName="Serum or plasma creatinine measurement with calculation of estimated glomerular filtration rate" /> <statusCode code="completed" / > <effectiveTime value="815732354628" /> <value unit="" xsi: type="PQ" value=">" /> <referenceRange> <observationRange > <text>NRG</text> </observationRange> </ referenceRange> </observation> </component> <component> <observation moodCode="EVN" classCode="OBS"> <templateId root= "2.16.840.1.697151.10..22.4.2" /> <id nullFlavor="NA" /> < code codeSystem="local" code="2345-7" displayName="Serum or plasma glucose measurement (mass/volume)" /> <statusCode code="completed" /> <effectiveTime value="273357607806" /> <value unit="mg/dL" xsi:type="PQ " value="108" /> <interpretationCode codeSystem="local" code="" /> <referenceRange> <observationRange> <text>70-105 </text> </observationRange> </referenceRange> </ observation> </component> <component> <observation moodCode= "EVN" classCode="OBS"> <templateId root="2.16.840.1.179989.10.20.22.4.2 " /> <id nullFlavor="NA" /> <code codeSystem="local" code= "11989-4" displayName="Serum or plasma calcium measurement (mass/volume)" /> <statusCode code="completed" /> <effectiveTime value= "665751278913" /> <value unit="mg/dL" xsi:type="PQ" value="7.8" /> <interpretationCode codeSystem="local" code="" /> < referenceRange> <observationRange> <text>8.5-10.1</text > </observationRange> </referenceRange> </observation > </component> <component> <observation moodCode="EVN" classCode="OBS"> <templateId root="2.16.840.1.691583.10..22.4.2" /> <id nullFlavor="NA" /> <code codeSystem="local" code="1974-06" displayName="Serum or plasma total bilirubin measurement (mass/volume)" /> <statusCode code="completed" /> <effectiveTime value="650462560936 " /> <value unit="mg/dL" xsi:type="PQ" value="0.5" /> < referenceRange> <observationRange> <text>0.1-1.0</text> </observationRange> </referenceRange> </observation > </component> <component> <observation moodCode="EVN" classCode="OBS"> <templateId root="2.16.840.1.437328.10..22.4.2" /> <id nullFlavor="NA" /> <code codeSystem="local" code="6768-6" displayName="Serum or plasma alkaline phosphatase measurement (enzymatic activity/volume)" /> <statusCode code="completed" /> < effectiveTime value="657153319024" /> <value unit="U/L" xsi:type="PQ" value="62" /> <referenceRange> <observationRange> <text>40-136</text> </observationRange> </referenceRange > </observation> </component> <component> <observation moodCode="EVN" classCode="OBS"> <templateId root= "2.16.840.1.750180.10.20.22.4.2" /> <id nullFlavor="NA" /> < code codeSystem="local" code="192" displayName="Serum or plasma aspartate aminotransferase measurement (enzymatic activity/volume)" /> < statusCode code="completed" /> <effectiveTime value="384784722288" /> <value unit="U/L" xsi:type="PQ" value="15" /> <referenceRange > <observationRange> <text>5-34</text> </ observationRange> </referenceRange> </observation> </ component> <component> <observation moodCode="EVN" classCode="OBS"> <templateId root="06.27.840.1.270727.10..22.4.2" /> <id nullFlavor="NA" /> <code codeSystem="local" code="1742-6" displayName= "Serum or plasma alanine aminotransferase measurement (enzymatic activity/volume )" /> <statusCode code="completed" /> <effectiveTime value= "517752643780" /> <value unit="U/L" xsi:type="PQ" value="12" /> <referenceRange> <observationRange> <text>0-55</text > </observationRange> </referenceRange> </observation > </component> <component> <observation moodCode="EVN" classCode="OBS"> <templateId root="216.840.1.783970.10.20.22.4.2" /> <id nullFlavor="NA" /> <code codeSystem="local" code="2885-2" displayName="Serum or plasma protein measurement (mass/volume)" /> < statusCode code="completed" /> <effectiveTime value="720457250664" /> <value unit="g/dL" xsi:type="PQ" value="4.7" /> < interpretationCode codeSystem="local" code="" /> <referenceRange> <observationRange> <text>6.4-8.2</text> </ observationRange> </referenceRange> </observation> </ component> <component> <observation moodCode="EVN" classCode="OBS"> <templateId root="2.16.840.1.962173.10..22.4.2" /> <id nullFlavor="NA" /> <code codeSystem="local" code="1751" displayName= "Serum or plasma albumin measurement (mass/volume)" /> <statusCode code ="completed" /> <effectiveTime value="243221355330" /> <value unit="g/dL" xsi:type="PQ" value="2.8" /> <interpretationCode codeSystem ="local" code="" /> <referenceRange> <observationRange> <text>3.2-4.5</text> </observationRange> </ referenceRange> </observation> </component> <component> <observation moodCode="EVN" classCode="OBS"> <templateId root= "16.840.1.373590.10..22.4.2" /> <id nullFlavor="NA" /> < code codeSystem="local" code="CALCIUMCORR" displayName="CALCIUM CORRECTED" /> <statusCode code="completed" /> <effectiveTime value= "134906953299" /> <value unit="mg/dL" xsi:type="PQ" value="8.8" /> <referenceRange> <observationRange> <text>8.5-10.1 </text> </observationRange> </referenceRange> </ observation> </component> </organizer> </entry> <entry> <organizer moodCode="EVN" classCode="BATTERY"> <templateId root= "06.27.840.1.839505.10.22.4.1" /> <id nullFlavor="NA" /> <code codeSystem="local" code="" displayName="Magnesium" /> <statusCode code="completed" /> <component> <observation moodCode="EVN" classCode="OBS"> <templateId root="840.1.195674.02.28.22.4.2" /> <id nullFlavor="NA" /> <code codeSystem="local" code="85400-6 " displayName="Magnesium" /> <statusCode code="completed" /> < effectiveTime value="844773448619" /> <value unit="mg/dL" xsi:type="PQ " value="1.5" /> <interpretationCode codeSystem="local" code="" /> <referenceRange> <observationRange> <text>1.8- 2.4</text> </observationRange> </referenceRange> </ observation> </component> </organizer> </entry> <entry> <organizer moodCode="EVN" classCode="BATTERY"> <templateId root= "840.1.482701.02.28.22.4.1" /> <id nullFlavor="NA" /> <code codeSystem="local" code="25920-9" displayName="Complete urinalysis with reflex to culture" /> <statusCode code="completed" /> <component> < observation moodCode="EVN" classCode="OBS"> <templateId root= "06.27.840.1.569458.02.28.22.4.2" /> <id nullFlavor="NA" /> < code codeSystem="local" code="5778-6" displayName="Urine color determination" / > <statusCode code="completed" /> <effectiveTime value= "687863124630" /> <value unit="" xsi:type="PQ" value="YELLOW" /> <referenceRange> <observationRange> <text>NRG</text > </observationRange> </referenceRange> </observation > </component> <component> <observation moodCode="EVN" classCode="OBS"> <templateId root="216.840.1.229465.10.20.22.4.2" /> <id nullFlavor="NA" /> <code codeSystem="local" code="83470-7 " displayName="Urine clarity determination" /> <statusCode code= "completed" /> <effectiveTime value="" /> <value unit="" xsi:type="PQ" value="SLIGHTLY CLOUDY" /> <referenceRange> <observationRange> <text>NRG</text> </ observationRange> </referenceRange> </observation> </ component> <component> <observation moodCode="EVN" classCode="OBS"> <templateId root="16.840.1.513445.10.20.22.4.2" /> <id nullFlavor="NA" /> <code codeSystem="local" code="5803-2" displayName= "Urine pH measurement by test strip" /> <statusCode code="completed" / > <effectiveTime value="862778873843" /> <value unit="" xsi: type="PQ" value="6" /> <referenceRange> <observationRange> <text>5-9</text> </observationRange> </ referenceRange> </observation> </component> <component> <observation moodCode="EVN" classCode="OBS"> <templateId root= "840.1.837230.10..22.4.2" /> <id nullFlavor="NA" /> < code codeSystem="local" code="5811-5" displayName="Specific gravity of urine by test strip" /> <statusCode code="completed" /> <effectiveTime value="091522377686" /> <value unit="" xsi:type="PQ" value="1.010" /> <interpretationCode codeSystem="local" code="" /> < referenceRange> <observationRange> <text>1.016-1.022</ text> </observationRange> </referenceRange> </ observation> </component> <component> <observation moodCode= "EVN" classCode="OBS"> <templateId root="06.27.840.1.445681.10.22.4.2 " /> <id nullFlavor="NA" /> <code codeSystem="local" code= "96376-5" displayName="Urine protein assay by test strip, semi-quantitative" /> <statusCode code="completed" /> <effectiveTime value= "578488858857" /> <value unit="" xsi:type="PQ" value="3+" /> < interpretationCode codeSystem="local" code="*" /> <referenceRange> <observationRange> <text>NEGATIVE</text> </ observationRange> </referenceRange> </observation> </ component> <component> <observation moodCode="EVN" classCode="OBS"> <templateId root="16.840.1.363220.10.20.22.4.2" /> <id nullFlavor="NA" /> <code codeSystem="local" code="46607-0" displayName= "Urine glucose detection by automated test strip" /> <statusCode code= "completed" /> <effectiveTime value="469045517085" /> <value unit="" xsi:type="PQ" value="NEGATIVE" /> <referenceRange> < observationRange> <text>NEGATIVE</text> </ observationRange> </referenceRange> </observation> </ component> <component> <observation moodCode="EVN" classCode="OBS"> <templateId root="840.1.894227.10.20.22.4.2" /> <id nullFlavor="NA" /> <code codeSystem="local" code="56114-5" displayName= "Erythrocytes detection in urine sediment by light microscopy" /> < statusCode code="completed" /> <effectiveTime value="322124768980" /> <value unit="" xsi:type="PQ" value="5+" /> < interpretationCode codeSystem="local" code="*" /> <referenceRange> <observationRange> <text>NEGATIVE</text> </ observationRange> </referenceRange> </observation> </ component> <component> <observation moodCode="EVN" classCode="OBS"> <templateId root="840.1.432274.1022.4.2" /> <id nullFlavor="NA" /> <code codeSystem="local" code="23730-9" displayName= "Urine ketones detection by automated test strip" /> <statusCode code= "completed" /> <effectiveTime value="602230832293" /> <value unit="" xsi:type="PQ" value="NEGATIVE" /> <referenceRange> < observationRange> <text>NEGATIVE</text> </ observationRange> </referenceRange> </observation> </ component> <component> <observation moodCode="EVN" classCode="OBS"> <templateId root="06.27.840.1.338304.10.2022.4.2" /> <id nullFlavor="NA" /> <code codeSystem="local" code="5802-4" displayName= "Urine nitrite detection by test strip" /> <statusCode code="completed " /> <effectiveTime value="623327063258" /> <value unit="" xsi :type="PQ" value="NEGATIVE" /> <referenceRange> < observationRange> <text>NEGATIVE</text> </ observationRange> </referenceRange> </observation> </ component> <component> <observation moodCode="EVN" classCode="OBS"> <templateId root="216.840.1.208850.10..22.4.2" /> <id nullFlavor="NA" /> <code codeSystem="local" code="5770-3" displayName= "Urine total bilirubin detection by test strip" /> <statusCode code= "completed" /> <effectiveTime value="733718371436" /> <value unit="" xsi:type="PQ" value="NEGATIVE" /> <referenceRange> < observationRange> <text>NEGATIVE</text> </ observationRange> </referenceRange> </observation> </ component> <component> <observation moodCode="EVN" classCode="OBS"> <templateId root="216.840.1.465094.10..22.4.2" /> <id nullFlavor="NA" /> <code codeSystem="local" code="78089-2" displayName= "Urine urobilinogen measurement by automated test strip (mass/volume)" /> <statusCode code="completed" /> <effectiveTime value="320634756541 " /> <value unit="" xsi:type="PQ" value="NORMAL" /> < referenceRange> <observationRange> <text>NORMAL</text> </observationRange> </referenceRange> </observation> </component> <component> <observation moodCode="EVN" classCode ="OBS"> <templateId root="216.840.1.456361.10.4.2" /> < id nullFlavor="NA" /> <code codeSystem="local" code="5799-2" displayName="Urine leukocyte esterase detection by dipstick" /> < statusCode code="completed" /> <effectiveTime value="944658941235" /> <value unit="" xsi:type="PQ" value="3+" /> < interpretationCode codeSystem="local" code="*" /> <referenceRange> <observationRange> <text>NEGATIVE</text> </ observationRange> </referenceRange> </observation> </ component> <component> <observation moodCode="EVN" classCode="OBS"> <templateId root="06.27.840.1.310874.22.4.2" /> <id nullFlavor="NA" /> <code codeSystem="local" code="99992-3" displayName= "Automated urine sediment erythrocyte count by microscopy (number/high power field)" /> <statusCode code="completed" /> <effectiveTime value="504970029295" /> <value unit="[HPF]" xsi:type="PQ" value="" /> <interpretationCode codeSystem="local" code="*" /> < referenceRange> <observationRange> <text>NRG</text> </observationRange> </referenceRange> </observation> </component> <component> <observation moodCode="EVN" classCode= "OBS"> <templateId root="06.27.840.1.509006.10.2022.4.2" /> < id nullFlavor="NA" /> <code codeSystem="local" code="5821-4" displayName="Automated urine sediment leukocyte count by microscopy (number/ high power field)" /> <statusCode code="completed" /> < effectiveTime value="709313824261" /> <value unit="[HPF]" xsi:type="PQ " value="" /> <interpretationCode codeSystem="local" code="*" /> <referenceRange> <observationRange> <text>NRG</text > </observationRange> </referenceRange> </observation > </component> <component> <observation moodCode="EVN" classCode="OBS"> <templateId root="16.840.1.846520.10.20.22.4.2" /> <id nullFlavor="NA" /> <code codeSystem="local" code="78361-9 " displayName="Bacteria detection in urine sediment by light microscopy" /> <statusCode code="completed" /> <effectiveTime value= "380173798720" /> <value unit="" xsi:type="PQ" value="NEGATIVE" /> <referenceRange> <observationRange> <text>NRG</ text> </observationRange> </referenceRange> </ observation> </component> <component> <observation moodCode= "EVN" classCode="OBS"> <templateId root="840.1.255256.10.22.4.2 " /> <id nullFlavor="NA" /> <code codeSystem="local" code= "53233-0" displayName="Squamous epithelial cells detection in urine sediment by light microscopy" /> <statusCode code="completed" /> < effectiveTime value="610011918497" /> <value unit="" xsi:type="PQ" value="5-10" /> <referenceRange> <observationRange> <text>NRG</text> </observationRange> </referenceRange > </observation> </component> <component> <observation moodCode="EVN" classCode="OBS"> <templateId root= "06.27.840.1.190280.10.20.22.4.2" /> <id nullFlavor="NA" /> < code codeSystem="local" code="48661-8" displayName="Crystals detection in urine sediment by light microscopy" /> <statusCode code="completed" /> <effectiveTime value="" /> <value unit="" xsi:type="PQ " value="NONE" /> <referenceRange> <observationRange> <text>NRG</text> </observationRange> </ referenceRange> </observation> </component> <component> <observation moodCode="EVN" classCode="OBS"> <templateId root= "16.840.1.192321.10.20.22.4.2" /> <id nullFlavor="NA" /> < code codeSystem="local" code="76834-9" displayName="Casts detection in urine sediment by light microscopy" /> <statusCode code="completed" /> <effectiveTime value="" /> <value unit="" xsi:type="PQ " value="NONE" /> <referenceRange> <observationRange> <text>NRG</text> </observationRange> </ referenceRange> </observation> </component> <component> <observation moodCode="EVN" classCode="OBS"> <templateId root= "16.840.1.166968.10.20.22.4.2" /> <id nullFlavor="NA" /> < code codeSystem="local" code="8247-9" displayName="Mucus detection in urine sediment by light microscopy" /> <statusCode code="completed" /> <effectiveTime value="556226362585" /> <value unit="" xsi:type="PQ " value="NEGATIVE" /> <referenceRange> <observationRange> <text>NRG</text> </observationRange> </ referenceRange> </observation> </component> <component> <observation moodCode="EVN" classCode="OBS"> <templateId root= "06.27.840.1.719715.10..22.4.2" /> <id nullFlavor="NA" /> < code codeSystem="local" code="77350-5" displayName="Complete urinalysis with reflex to culture" /> <statusCode code="completed" /> < effectiveTime value="017396236546" /> <value unit="" xsi:type="PQ" value="YES" /> <referenceRange> <observationRange> <text>NRG</text> </observationRange> </referenceRange> </observation> </component> </organizer> </entry> <entry> < organizer moodCode="EVN" classCode="BATTERY"> <templateId root= "16.840.1.590951.10.22.4.1" /> <id nullFlavor="NA" /> <code codeSystem="local" code="630-4" displayName="Bacterial urine culture" /> < statusCode code="completed" /> <component> <observation moodCode= "EVN" classCode="OBS"> <templateId root="216.840.1.003406.10..22.4.2 " /> <id nullFlavor="NA" /> <code codeSystem="local" code="630 -4" displayName="Bacterial urine culture" /> <statusCode code= "completed" /> <effectiveTime value="195347815030" /> <value unit="" xsi:type="PQ" value="530457903" /> <referenceRange> <observationRange> <text>NRG</text> </observationRange> </referenceRange> </observation> </component> < component> <observation moodCode="EVN" classCode="OBS"> < templateId root="16.840.1.394628.10..22.4.2" /> <id nullFlavor="NA " /> <code codeSystem="local" code="CC" displayName="COLONY COUNT" /> <statusCode code="completed" /> <effectiveTime value= "007457690324" /> <value unit="" xsi:type="PQ" value=">100,000/ML" / > <referenceRange> <observationRange> <text>NRG </text> </observationRange> </referenceRange> </ observation> </component> <component> <observation moodCode= "EVN" classCode="OBS"> <templateId root="2.16.840.1.259722.10..22.4.2 " /> <id nullFlavor="NA" /> <code codeSystem="local" code= "FTX2" displayName="FREE TEXT ENTRY 2" /> <statusCode code="completed" /> <effectiveTime value="881207159507" /> <value unit="" xsi: type="PQ" value="RML SENT SENSITIVITY 05/26 08:05" /> <referenceRange> <observationRange> <text>NRG</text> </ observationRange> </referenceRange> </observation> </ component> <component> <observation moodCode="EVN" classCode="OBS"> <templateId root="2.16.840.1.465514.10..22.4.2" /> <id nullFlavor="NA" /> <code codeSystem="local" code="FTX3" displayName= "FREE TEXT ENTRY 3" /> <statusCode code="completed" /> < effectiveTime value="917630263564" /> <value unit="" xsi:type="PQ" value="RML SENT ID REPORT 05/25 16:05" /> <referenceRange> < observationRange> <text>NRG</text> </observationRange> </referenceRange> </observation> </component> </ organizer> </entry> <entry> <organizer moodCode="EVN" classCode="BATTERY"> <templateId root="216.840.1.538224.10..22.4.1" /> <id nullFlavor= "NA" /> <code codeSystem="local" code="RML-SENS" displayName="RML Sensitivity Panel" /> <statusCode code="completed" /> <component> <observation moodCode="EVN" classCode="OBS"> <templateId root= "16.840.1.444168.10..22.4.2" /> <id nullFlavor="NA" /> < code codeSystem="local" code="267-5" displayName="Gentamicin susceptibility test by minimum inhibitory concentration" /> <statusCode code= "completed" /> <effectiveTime value="685449547475" /> <value unit="" xsi:type="PQ" value="<" /> <interpretationCode codeSystem= "local" code="*" /> <referenceRange> <observationRange> <text>NRG</text> </observationRange> </ referenceRange> </observation> </component> <component> <observation moodCode="EVN" classCode="OBS"> <templateId root= "16.840.1.027568.10..22.4.2" /> <id nullFlavor="NA" /> < code codeSystem="local" code="516-5" displayName="Trimethoprim/sulfamethoxazole susceptibility test by minimum inhibitoryconcentration" /> <statusCode code="completed" /> <effectiveTime value="464934107367" /> < value unit="" xsi:type="PQ" value=">" /> <interpretationCode codeSystem="local" code="*" /> <referenceRange> < observationRange> <text>NRG</text> </observationRange> </referenceRange> </observation> </component> < component> <observation moodCode="EVN" classCode="OBS"> < templateId root="216.840.1.063873.10..22.4.2" /> <id nullFlavor="NA " /> <code codeSystem="local" code="26113-6" displayName="Levofloxacin susceptibility test by minimum inhibitory concentration" /> < statusCode code="completed" /> <effectiveTime value="068388483226" /> <value unit="" xsi:type="PQ" value="<=" /> < interpretationCode codeSystem="local" code="*" /> <referenceRange> <observationRange> <text>NRG</text> </ observationRange> </referenceRange> </observation> </ component> <component> <observation moodCode="EVN" classCode="OBS"> <templateId root="216.840.1.114916.10...4.2" /> <id nullFlavor="NA" /> <code codeSystem="local" code="28-1" displayName= "Ampicillin susceptibility test by minimum inhibitory concentration" /> <statusCode code="completed" /> <effectiveTime value="731989157385" / > <value unit="" xsi:type="PQ" value=">" /> < interpretationCode codeSystem="local" code="*" /> <referenceRange> <observationRange> <text>NRG</text> </ observationRange> </referenceRange> </observation> </ component> <component> <observation moodCode="EVN" classCode="OBS"> <templateId root="216.840.1.599807.10..22.4.2" /> <id nullFlavor="NA" /> <code codeSystem="local" code="76-0" displayName= "Cefazolin susceptibility test by minimum inhibitory concentration" /> <statusCode code="completed" /> <effectiveTime value="602167301794" /> <value unit="" xsi:type="PQ" value="2" /> < interpretationCode codeSystem="local" code="*" /> <referenceRange> <observationRange> <text>NRG</text> </ observationRange> </referenceRange> </observation> </ component> <component> <observation moodCode="EVN" classCode="OBS"> <templateId root="06.27.840.1.609317.10.20.22.4.2" /> <id nullFlavor="NA" /> <code codeSystem="local" code="141-2" displayName= "Ceftriaxone susceptibility test by minimum inhibitory concentration" /> <statusCode code="completed" /> <effectiveTime value="214603923919" /> <value unit="" xsi:type="PQ" value="<=" /> < interpretationCode codeSystem="local" code="*" /> <referenceRange> <observationRange> <text>NRG</text> </ observationRange> </referenceRange> </observation> </ component> <component> <observation moodCode="EVN" classCode="OBS"> <templateId root="06.27.840.1.390721.10..22.4.2" /> <id nullFlavor="NA" /> <code codeSystem="local" code="185-9" displayName= "Ciprofloxacin susceptibility test by minimum inhibitory concentration" /> <statusCode code="completed" /> <effectiveTime value="462707290458 " /> <value unit="" xsi:type="PQ" value="<=" /> < interpretationCode codeSystem="local" code="*" /> <referenceRange> <observationRange> <text>NRG</text> </ observationRange> </referenceRange> </observation> </ component> <component> <observation moodCode="EVN" classCode="OBS"> <templateId root="06.27.830.1.538834.10.20.22.4.2" /> <id nullFlavor="NA" /> <code codeSystem="local" code="6652-2" displayName= "Meropenem susceptibility test by minimum inhibitory concentration" /> <statusCode code="completed" /> <effectiveTime value="564509005037" /> <value unit="" xsi:type="PQ" value="<=" /> < interpretationCode codeSystem="local" code="*" /> <referenceRange> <observationRange> <text>NRG</text> </ observationRange> </referenceRange> </observation> </ component> <component> <observation moodCode="EVN" classCode="OBS"> <templateId root="16.840.1.654378.10..22.4.2" /> <id nullFlavor="NA" /> <code codeSystem="local" code="363-2" displayName= "Nitrofurantoin susceptibility test by minimum inhibitory concentration" /> <statusCode code="completed" /> <effectiveTime value= "968422326567" /> <value unit="" xsi:type="PQ" value="<=" /> <interpretationCode codeSystem="local" code="*" /> <referenceRange> <observationRange> <text>NRG</text> </ observationRange> </referenceRange> </observation> </ component> <component> <observation moodCode="EVN" classCode="OBS"> <templateId root="16.840.1.116096.10.20.22.4.2" /> <id nullFlavor="NA" /> <code codeSystem="local" code="20-8" displayName= "Amoxicillin and clavulanate potassium susc SHAYNA" /> <statusCode code= "completed" /> <effectiveTime value="576535471828" /> <value unit="" xsi:type="PQ" value="=" /> <interpretationCode codeSystem= "local" code="*" /> <referenceRange> <observationRange> <text>NRG</text> </observationRange> </ referenceRange> </observation> </component> </organizer> </entry > <entry> <organizer moodCode="EVN" classCode="BATTERY"> <templateId root="216.840.1.297185.10..22.4.1" /> <id nullFlavor="NA" /> <code codeSystem="local" code="25216-8" displayName="Complete blood count (CBC) with automated white blood cell (WBC) differential" /> <statusCode code= "completed" /> <component> <observation moodCode="EVN" classCode= "OBS"> <templateId root="216.840.1.853177.10..22.4.2" /> < id nullFlavor="NA" /> <code codeSystem="local" code="6690-2" displayName="Blood leukocytes automated count (number/volume)" /> < statusCode code="completed" /> <effectiveTime value="536612972639" /> <value unit="10*3/uL" xsi:type="PQ" value="15.1" /> < interpretationCode codeSystem="local" code="" /> <referenceRange> <observationRange> <text>4.3-11.0</text> </ observationRange> </referenceRange> </observation> </ component> <component> <observation moodCode="EVN" classCode="OBS"> <templateId root="216.840.1.753117.10..22.4.2" /> <id nullFlavor="NA" /> <code codeSystem="local" code="789-8" displayName= "Blood erythrocytes automated count (number/volume)" /> <statusCode code="completed" /> <effectiveTime value="408065780189" /> < value unit="10*6/uL" xsi:type="PQ" value="3.78" /> <interpretationCode codeSystem="local" code="" /> <referenceRange> < observationRange> <text>4.35-5.85</text> </ observationRange> </referenceRange> </observation> </ component> <component> <observation moodCode="EVN" classCode="OBS"> <templateId root="2.16.840.1.601397.10.20.22.4.2" /> <id nullFlavor="NA" /> <code codeSystem="local" code="08933-9" displayName= "Venous blood hemoglobin measurement (mass/volume)" /> <statusCode code ="completed" /> <effectiveTime value="112258174657" /> <value unit="g/dL" xsi:type="PQ" value="8.2" /> <interpretationCode codeSystem ="local" code="" /> <referenceRange> <observationRange> <text>11.5-16.0</text> </observationRange> </ referenceRange> </observation> </component> <component> <observation moodCode="EVN" classCode="OBS"> <templateId root= "2.16.840.1.359320.10.20.22.4.2" /> <id nullFlavor="NA" /> < code codeSystem="local" code="29593-7" displayName="Blood hematocrit (volume fraction)" /> <statusCode code="completed" /> <effectiveTime value="689940460433" /> <value unit="%" xsi:type="PQ" value="27" / > <interpretationCode codeSystem="local" code="" /> < referenceRange> <observationRange> <text>35-52</text> </observationRange> </referenceRange> </observation> </component> <component> <observation moodCode="EVN" classCode= "OBS"> <templateId root="16.840.1.552621.10.2022.4.2" /> < id nullFlavor="NA" /> <code codeSystem="local" code="787-2" displayName ="Automated erythrocyte mean corpuscular volume" /> <statusCode code= "completed" /> <effectiveTime value="997485268321" /> <value unit="[foz_us]" xsi:type="PQ" value="71" /> <interpretationCode codeSystem="local" code="" /> <referenceRange> < observationRange> <text>80-99</text> </observationRange > </referenceRange> </observation> </component> < component> <observation moodCode="EVN" classCode="OBS"> < templateId root="06.27.840.1.204386.10.2022.4.2" /> <id nullFlavor="NA " /> <code codeSystem="local" code="785-6" displayName="Automated erythrocyte mean corpuscular hemoglobin (mass per erythrocyte)" /> < statusCode code="completed" /> <effectiveTime value="278506391833" /> <value unit="pg" xsi:type="PQ" value="22" /> < interpretationCode codeSystem="local" code="" /> <referenceRange> <observationRange> <text>25-34</text> </ observationRange> </referenceRange> </observation> </ component> <component> <observation moodCode="EVN" classCode="OBS"> <templateId root="06.27.840.1.321723.10.20.22.4.2" /> <id nullFlavor="NA" /> <code codeSystem="local" code="786-4" displayName= "Automated erythrocyte mean corpuscular hemoglobin concentration measurement ( mass/volume)" /> <statusCode code="completed" /> < effectiveTime value="913681549956" /> <value unit="g/dL" xsi:type="PQ" value="31" /> <interpretationCode codeSystem="local" code="" /> <referenceRange> <observationRange> <text>32-36</ text> </observationRange> </referenceRange> </ observation> </component> <component> <observation moodCode= "EVN" classCode="OBS"> <templateId root="2.16.840.1.037366.10.20.22.4.2 " /> <id nullFlavor="NA" /> <code codeSystem="local" code="788 -0" displayName="Automated erythrocyte distribution width ratio" /> < statusCode code="completed" /> <effectiveTime value="592157003765" /> <value unit="%" xsi:type="PQ" value="20.3" /> < interpretationCode codeSystem="local" code="" /> <referenceRange> <observationRange> <text>10.0-14.5</text> </ observationRange> </referenceRange> </observation> </ component> <component> <observation moodCode="EVN" classCode="OBS"> <templateId root="2.16.840.1.346202.10.20.22.4.2" /> <id nullFlavor="NA" /> <code codeSystem="local" code="777-3" displayName= "Automated blood platelet count (count/volume)" /> <statusCode code= "completed" /> <effectiveTime value="973464626106" /> <value unit="10*3/uL" xsi:type="PQ" value="219" /> <referenceRange> <observationRange> <text>130-400</text> </ observationRange> </referenceRange> </observation> </ component> <component> <observation moodCode="EVN" classCode="OBS"> <templateId root="06.27.840.1.611519.10.20.22.4.2" /> <id nullFlavor="NA" /> <code codeSystem="local" code="87365-4" displayName= "Automated blood platelet mean volume measurement" /> <statusCode code= "completed" /> <effectiveTime value="286180803938" /> <value unit="[foz_us]" xsi:type="PQ" value="10.6" /> <interpretationCode codeSystem="local" code="" /> <referenceRange> < observationRange> <text>7.4-10.4</text> </ observationRange> </referenceRange> </observation> </ component> <component> <observation moodCode="EVN" classCode="OBS"> <templateId root="06.27.840.1.047142.10.2022.4.2" /> <id nullFlavor="NA" /> <code codeSystem="local" code="770-8" displayName= "Automated blood neutrophils/100 leukocytes" /> <statusCode code= "completed" /> <effectiveTime value="748436923702" /> <value unit="%" xsi:type="PQ" value="80" /> <interpretationCode codeSystem ="local" code="" /> <referenceRange> <observationRange> <text>42-75</text> </observationRange> </ referenceRange> </observation> </component> <component> <observation moodCode="EVN" classCode="OBS"> <templateId root= "06.27.840.1.459604.10.20.22.4.2" /> <id nullFlavor="NA" /> < code codeSystem="local" code="736-9" displayName="Automated blood lymphocytes/ 100 leukocytes" /> <statusCode code="completed" /> < effectiveTime value="966305225606" /> <value unit="%" xsi:type="PQ " value="8" /> <interpretationCode codeSystem="local" code="" /> <referenceRange> <observationRange> <text>12-44</ text> </observationRange> </referenceRange> </ observation> </component> <component> <observation moodCode= "EVN" classCode="OBS"> <templateId root="2.16.840.1.076969.10..22.4.2 " /> <id nullFlavor="NA" /> <code codeSystem="local" code= "57846-9" displayName="Blood monocytes/100 leukocytes" /> <statusCode code="completed" /> <effectiveTime value="848161878147" /> < value unit="%" xsi:type="PQ" value="12" /> <referenceRange> <observationRange> <text>0-12</text> </ observationRange> </referenceRange> </observation> </ component> <component> <observation moodCode="EVN" classCode="OBS"> <templateId root="2.16.840.1.861724.10..22.4.2" /> <id nullFlavor="NA" /> <code codeSystem="local" code="713-8" displayName= "Automated blood eosinophils/100 leukocytes" /> <statusCode code= "completed" /> <effectiveTime value="927307343145" /> <value unit="%" xsi:type="PQ" value="0" /> <referenceRange> < observationRange> <text>0-10</text> </observationRange> </referenceRange> </observation> </component> < component> <observation moodCode="EVN" classCode="OBS"> < templateId root="216.840.1.412793.10.20.22.4.2" /> <id nullFlavor="NA " /> <code codeSystem="local" code="706-2" displayName="Automated blood basophils/100 leukocytes" /> <statusCode code="completed" /> <effectiveTime value="" /> <value unit="%" xsi: type="PQ" value="0" /> <referenceRange> <observationRange> <text>0-10</text> </observationRange> </ referenceRange> </observation> </component> <component> <observation moodCode="EVN" classCode="OBS"> <templateId root= "16.840.1.213605.10.22.4.2" /> <id nullFlavor="NA" /> < code codeSystem="local" code="751-8" displayName="Blood neutrophils automated count (number/volume)" /> <statusCode code="completed" /> < effectiveTime value="" /> <value unit="10*3" xsi:type="PQ" value="12.2" /> <interpretationCode codeSystem="local" code="" /> <referenceRange> <observationRange> <text>1.8-7.8 </text> </observationRange> </referenceRange> </ observation> </component> <component> <observation moodCode= "EVN" classCode="OBS"> <templateId root="216.840.1.728572.10.20.22.4.2 " /> <id nullFlavor="NA" /> <code codeSystem="local" code="731 -0" displayName="Blood lymphocytes automated count (number/volume)" /> <statusCode code="completed" /> <effectiveTime value="177676192079" /> <value unit="10*3" xsi:type="PQ" value="1.2" /> < referenceRange> <observationRange> <text>1.0-4.0</text> </observationRange> </referenceRange> </observation > </component> <component> <observation moodCode="EVN" classCode="OBS"> <templateId root="06.27.840.1.106597.102022.4.2" /> <id nullFlavor="NA" /> <code codeSystem="local" code="742-7" displayName="Blood monocytes automated count (number/volume)" /> < statusCode code="completed" /> <effectiveTime value="362743135459" /> <value unit="10*3" xsi:type="PQ" value="1.7" /> < interpretationCode codeSystem="local" code="" /> <referenceRange> <observationRange> <text>0.0-1.0</text> </ observationRange> </referenceRange> </observation> </ component> <component> <observation moodCode="EVN" classCode="OBS"> <templateId root="16.840.1.133305.102022.4.2" /> <id nullFlavor="NA" /> <code codeSystem="local" code="711-2" displayName= "Automated eosinophil count" /> <statusCode code="completed" /> <effectiveTime value="883291209656" /> <value unit="10*3/uL" xsi: type="PQ" value="0.0" /> <referenceRange> <observationRange > <text>0.0-0.3</text> </observationRange> </ referenceRange> </observation> </component> <component> <observation moodCode="EVN" classCode="OBS"> <templateId root= "06.27.840.1.524202.10..22.4.2" /> <id nullFlavor="NA" /> < code codeSystem="local" code="704-7" displayName="Automated blood basophil count (count/volume)" /> <statusCode code="completed" /> < effectiveTime value="450332076992" /> <value unit="10*3/uL" xsi:type= "PQ" value="0.0" /> <referenceRange> <observationRange> <text>0.0-0.1</text> </observationRange> </ referenceRange> </observation> </component> </organizer> </entry > <entry> <organizer moodCode="EVN" classCode="BATTERY"> <templateId root="216.840.1.043529.10..22.4.1" /> <id nullFlavor="NA" /> <code codeSystem="local" code="15947-0" displayName="Comprehensive metabolic panel" / > <statusCode code="completed" /> <component> <observation moodCode="EVN" classCode="OBS"> <templateId root= "2.16.840.1.192356.10..22.4.2" /> <id nullFlavor="NA" /> < code codeSystem="local" code="2951-2" displayName="Serum or plasma sodium measurement (moles/volume)" /> <statusCode code="completed" /> <effectiveTime value="760861619731" /> <value unit="mmol/L" xsi:type= "PQ" value="136" /> <referenceRange> <observationRange> <text>135-145</text> </observationRange> </ referenceRange> </observation> </component> <component> <observation moodCode="EVN" classCode="OBS"> <templateId root= "216.840.1.892967.10..4.2" /> <id nullFlavor="NA" /> < code codeSystem="local" code="2823-3" displayName="Serum or plasma potassium measurement (moles/volume)" /> <statusCode code="completed" /> <effectiveTime value="587582120039" /> <value unit="mmol/L" xsi:type= "PQ" value="3.5" /> <interpretationCode codeSystem="local" code="" / > <referenceRange> <observationRange> <text>3.6 -5.0</text> </observationRange> </referenceRange> </ observation> </component> <component> <observation moodCode= "EVN" classCode="OBS"> <templateId root="2.16.840.1.448914.10..22.4.2 " /> <id nullFlavor="NA" /> <code codeSystem="local" code= "" displayName="Serum or plasma chloride measurement (moles/volume)" /> <statusCode code="completed" /> <effectiveTime value= "420316805811" /> <value unit="mmol/L" xsi:type="PQ" value="104" /> <referenceRange> <observationRange> <text>98-107< /text> </observationRange> </referenceRange> </ observation> </component> <component> <observation moodCode= "EVN" classCode="OBS"> <templateId root="16.840.1.398473.10.20.22.4.2 " /> <id nullFlavor="NA" /> <code codeSystem="local" code= "2028-01" displayName="Carbon dioxide" /> <statusCode code="completed" / > <effectiveTime value="172282857094" /> <value unit="mmol/L" xsi:type="PQ" value="18" /> <interpretationCode codeSystem="local" code ="" /> <referenceRange> <observationRange> < text>21-32</text> </observationRange> </referenceRange> </observation> </component> <component> <observation moodCode="EVN" classCode="OBS"> <templateId root= "216.840.1.142611.10.20.22.4.2" /> <id nullFlavor="NA" /> < code codeSystem="local" code="76550-1" displayName="Serum or plasma anion gap determination (moles/volume)" /> <statusCode code="completed" /> <effectiveTime value="358946047106" /> <value unit="mmol/L" xsi: type="PQ" value="14" /> <referenceRange> <observationRange> <text>5-14</text> </observationRange> </ referenceRange> </observation> </component> <component> <observation moodCode="EVN" classCode="OBS"> <templateId root= "16.840.1.767844.10..22.4.2" /> <id nullFlavor="NA" /> < code codeSystem="local" code="3094-0" displayName="Serum or plasma urea nitrogen measurement (mass/volume)" /> <statusCode code="completed" /> <effectiveTime value="957609493275" /> <value unit="mg/dL" xsi:type="PQ" value="20" /> <interpretationCode codeSystem="local" code ="" /> <referenceRange> <observationRange> < text>7-18</text> </observationRange> </referenceRange> </observation> </component> <component> <observation moodCode="EVN" classCode="OBS"> <templateId root= "216.840.1.925975.10.20.22.4.2" /> <id nullFlavor="NA" /> < code codeSystem="local" code="2160-0" displayName="Serum or plasma creatinine measurement (mass/volume)" /> <statusCode code="completed" /> <effectiveTime value="316228005518" /> <value unit="mg/dL" xsi:type="PQ " value="0.85" /> <referenceRange> <observationRange> <text>0.60-1.30</text> </observationRange> </ referenceRange> </observation> </component> <component> <observation moodCode="EVN" classCode="OBS"> <templateId root= "2.16.840.1.695818.10.20.22.4.2" /> <id nullFlavor="NA" /> < code codeSystem="local" code="3097-3" displayName="Serum or plasma urea nitrogen /creatinine mass ratio" /> <statusCode code="completed" /> < effectiveTime value="817313473147" /> <value unit="" xsi:type="PQ" value="24" /> <referenceRange> <observationRange> <text>NRG</text> </observationRange> </referenceRange> </observation> </component> <component> <observation moodCode="EVN" classCode="OBS"> <templateId root= "2.16.840.1.333885.10..22.4.2" /> <id nullFlavor="NA" /> < code codeSystem="local" code="58161-9" displayName="Serum or plasma creatinine measurement with calculation of estimated glomerular filtration rate" /> <statusCode code="completed" /> <effectiveTime value="303386097243" /> <value unit="" xsi:type="PQ" value=">" /> < referenceRange> <observationRange> <text>NRG</text> </observationRange> </referenceRange> </observation> </component> <component> <observation moodCode="EVN" classCode= "OBS"> <templateId root="2.16.840.1.750475.10.20.22.4.2" /> < id nullFlavor="NA" /> <code codeSystem="local" code="2345-7" displayName="Serum or plasma glucose measurement (mass/volume)" /> < statusCode code="completed" /> <effectiveTime value="583753904126" /> <value unit="mg/dL" xsi:type="PQ" value="93" /> < referenceRange> <observationRange> <text>70-105</text> </observationRange> </referenceRange> </observation> </component> <component> <observation moodCode="EVN" classCode ="OBS"> <templateId root="2.16.840.1.760565.10..22.4.2" /> < id nullFlavor="NA" /> <code codeSystem="local" code="83691-5" displayName="Serum or plasma calcium measurement (mass/volume)" /> < statusCode code="completed" /> <effectiveTime value="467903262179" /> <value unit="mg/dL" xsi:type="PQ" value="9.1" /> < referenceRange> <observationRange> <text>8.5-10.1</text > </observationRange> </referenceRange> </observation > </component> <component> <observation moodCode="EVN" classCode="OBS"> <templateId root="2.16.840.1.537900.10.20.22.4.2" /> <id nullFlavor="NA" /> <code codeSystem="local" code="1974-06" displayName="Serum or plasma total bilirubin measurement (mass/volume)" /> <statusCode code="completed" /> <effectiveTime value="179991305921 " /> <value unit="mg/dL" xsi:type="PQ" value="0.6" /> < referenceRange> <observationRange> <text>0.1-1.0</text> </observationRange> </referenceRange> </observation > </component> <component> <observation moodCode="EVN" classCode="OBS"> <templateId root="2.16.840.1.006812.10.20.22.4.2" /> <id nullFlavor="NA" /> <code codeSystem="local" code="6768-6" displayName="Serum or plasma alkaline phosphatase measurement (enzymatic activity/volume)" /> <statusCode code="completed" /> < effectiveTime value="138495188607" /> <value unit="U/L" xsi:type="PQ" value="69" /> <referenceRange> <observationRange> <text>40-136</text> </observationRange> </referenceRange > </observation> </component> <component> <observation moodCode="EVN" classCode="OBS"> <templateId root= "216.840.1.095890.10..22.4.2" /> <id nullFlavor="NA" /> < code codeSystem="local" code="19208" displayName="Serum or plasma aspartate aminotransferase measurement (enzymatic activity/volume)" /> < statusCode code="completed" /> <effectiveTime value="649114301944" /> <value unit="U/L" xsi:type="PQ" value="21" /> <referenceRange > <observationRange> <text>5-34</text> </ observationRange> </referenceRange> </observation> </ component> <component> <observation moodCode="EVN" classCode="OBS"> <templateId root="216.840.1.026327.10.20.22.4.2" /> <id nullFlavor="NA" /> <code codeSystem="local" code="1742-6" displayName= "Serum or plasma alanine aminotransferase measurement (enzymatic activity/volume )" /> <statusCode code="completed" /> <effectiveTime value= "297629825310" /> <value unit="U/L" xsi:type="PQ" value="24" /> <referenceRange> <observationRange> <text>0-55</text > </observationRange> </referenceRange> </observation > </component> <component> <observation moodCode="EVN" classCode="OBS"> <templateId root="2.16.840.1.161616.10.20.22.4.2" /> <id nullFlavor="NA" /> <code codeSystem="local" code="2885-2" displayName="Serum or plasma protein measurement (mass/volume)" /> < statusCode code="completed" /> <effectiveTime value="312341692024" /> <value unit="g/dL" xsi:type="PQ" value="7.2" /> < referenceRange> <observationRange> <text>6.4-8.2</text> </observationRange> </referenceRange> </observation > </component> <component> <observation moodCode="EVN" classCode="OBS"> <templateId root="2.16.840.1.152733.10.20.22.4.2" /> <id nullFlavor="NA" /> <code codeSystem="local" code="1751-7" displayName="Serum or plasma albumin measurement (mass/volume)" /> < statusCode code="completed" /> <effectiveTime value="236917543620" /> <value unit="g/dL" xsi:type="PQ" value="4.2" /> < referenceRange> <observationRange> <text>3.2-4.5</text> </observationRange> </referenceRange> </observation > </component> <component> <observation moodCode="EVN" classCode="OBS"> <templateId root="2.16.840.1.192134.10..22.4.2" /> <id nullFlavor="NA" /> <code codeSystem="local" code= "CALCIUMCORR" displayName="CALCIUM CORRECTED" /> <statusCode code= "completed" /> <effectiveTime value="563143435403" /> <value unit="mg/dL" xsi:type="PQ" value="8.9" /> <referenceRange> < observationRange> <text>8.5-10.1</text> </ observationRange> </referenceRange> </observation> </ component> </organizer> </entry> <entry> <organizer moodCode="EVN" classCode="BATTERY"> <templateId root="2.16.840.1.697534.10..22.4.1" /> <id nullFlavor="NA" /> <code codeSystem="local" code="56147-6" displayName="Blood manual differential performed detection" /> <statusCode code="completed" /> <component> <observation moodCode="EVN" classCode="OBS"> <templateId root="2.16.840.1.494056.10.20.22.4.2" /> <id nullFlavor="NA" /> <code codeSystem="local" code="49897-9 " displayName="Blood monocytes/100 leukocytes" /> <statusCode code= "completed" /> <effectiveTime value="649802958729" /> <value unit="%" xsi:type="PQ" value="6" /> <referenceRange> < observationRange> <text>NRG</text> </observationRange> </referenceRange> </observation> </component> < component> <observation moodCode="EVN" classCode="OBS"> < templateId root="216.840.1.660477.10.20.22.4.2" /> <id nullFlavor="NA " /> <code codeSystem="local" code="769-0" displayName="Manual blood segmented neutrophils/100 leukocytes" /> <statusCode code="completed" / > <effectiveTime value="233938179777" /> <value unit="%" xsi:type="PQ" value="85" /> <referenceRange> < observationRange> <text>NRG</text> </observationRange> </referenceRange> </observation> </component> < component> <observation moodCode="EVN" classCode="OBS"> < templateId root="16.840.1.299970.10.20.22.4.2" /> <id nullFlavor="NA " /> <code codeSystem="local" code="34787-5" displayName="Blood band neutrophils/100 leukocytes" /> <statusCode code="completed" /> <effectiveTime value="189008525371" /> <value unit="%" xsi:type= "PQ" value="0" /> <referenceRange> <observationRange> <text>NRG</text> </observationRange> </ referenceRange> </observation> </component> <component> <observation moodCode="EVN" classCode="OBS"> <templateId root= "16.840.1.348927.10.20.22.4.2" /> <id nullFlavor="NA" /> < code codeSystem="local" code="737-7" displayName="Manual blood lymphocytes/100 leukocytes" /> <statusCode code="completed" /> <effectiveTime value="076373452710" /> <value unit="%" xsi:type="PQ" value="9" /> <referenceRange> <observationRange> <text>NRG< /text> </observationRange> </referenceRange> </ observation> </component> <component> <observation moodCode= "EVN" classCode="OBS"> <templateId root="216.840.1.142663.10..4.2 " /> <id nullFlavor="NA" /> <code codeSystem="local" code= "9727-9" displayName="Manual eosinophils/100 leukocytes in nose" /> < statusCode code="completed" /> <effectiveTime value="083143465732" /> <value unit="%" xsi:type="PQ" value="0" /> <referenceRange > <observationRange> <text>NRG</text> </ observationRange> </referenceRange> </observation> </ component> <component> <observation moodCode="EVN" classCode="OBS"> <templateId root="216.840.1.406789.02.28.22.4.2" /> <id nullFlavor="NA" /> <code codeSystem="local" code="707-0" displayName= "Manual blood basophils/100 leukocytes" /> <statusCode code="completed " /> <effectiveTime value="043215656469" /> <value unit="% " xsi:type="PQ" value="0" /> <referenceRange> < observationRange> <text>NRG</text> </observationRange> </referenceRange> </observation> </component> < component> <observation moodCode="EVN" classCode="OBS"> < templateId root="216.840.1.470402.10..22.4.2" /> <id nullFlavor="NA " /> <code codeSystem="local" code="702-1" displayName="Blood anisocytosis detection by light microscopy" /> <statusCode code= "completed" /> <effectiveTime value="115220580141" /> <value unit="" xsi:type="PQ" value="MODERATE" /> <referenceRange> < observationRange> <text>NRG</text> </observationRange> </referenceRange> </observation> </component> < component> <observation moodCode="EVN" classCode="OBS"> < templateId root="216.840.1.155622.10..22.4.2" /> <id nullFlavor="NA " /> <code codeSystem="local" code="728-6" displayName="Blood hypochromia detection by light microscopy" /> <statusCode code= "completed" /> <effectiveTime value="452022740396" /> <value unit="" xsi:type="PQ" value="MARKED" /> <referenceRange> < observationRange> <text>NRG</text> </observationRange> </referenceRange> </observation> </component> < component> <observation moodCode="EVN" classCode="OBS"> < templateId root="16.840.1.913289.10...4.2" /> <id nullFlavor="NA " /> <code codeSystem="local" code="741-9" displayName="Blood microcytes detection by light microscopy" /> <statusCode code= "completed" /> <effectiveTime value="499853045689" /> <value unit="" xsi:type="PQ" value="MODERATE" /> <referenceRange> < observationRange> <text>NRG</text> </observationRange> </referenceRange> </observation> </component> </ organizer> </entry> <entry> <organizer moodCode="EVN" classCode="BATTERY"> <templateId root="16.840.1.499069.10..22.4.1" /> <id nullFlavor= "NA" /> <code codeSystem="local" code="2117-12" displayName="Serum or plasma choriogonadotropin ( test) detection" /> <statusCode code= "completed" /> <component> <observation moodCode="EVN" classCode= "OBS"> <templateId root="216.840.1.973371.10.20.22.4.2" /> < id nullFlavor="NA" /> <code codeSystem="local" code="2117-12" displayName="Serum or plasma choriogonadotropin ( test) detection" /> <statusCode code="completed" /> <effectiveTime value= "668668721922" /> <value unit="" xsi:type="PQ" value="NEGATIVE" /> <referenceRange> <observationRange> <text>NEGATIVE </text> </observationRange> </referenceRange> </ observation> </component> </organizer> </entry> <entry> <organizer moodCode="EVN" classCode="BATTERY"> <templateId root= "216.840.1.914424.10.20.22.4.1" /> <id nullFlavor="NA" /> <code codeSystem="local" code="65813-1" displayName="Blood lactic acid measurement ( moles/volume)" /> <statusCode code="completed" /> <component> < observation moodCode="EVN" classCode="OBS"> <templateId root= "216.840.1.483947.10.20.22.4.2" /> <id nullFlavor="NA" /> < code codeSystem="local" code="74075-2" displayName="Blood lactic acid measurement (moles/volume)" /> <statusCode code="completed" /> <effectiveTime value="321833813579" /> <value unit="mmol/L" xsi:type= "PQ" value="1.03" /> <referenceRange> <observationRange> <text>0.50-2.00</text> </observationRange> </ referenceRange> </observation> </component> </organizer> </entry > <entry> <organizer moodCode="EVN" classCode="BATTERY"> <templateId root="16.840.1.528455.10..22.4.1" /> <id nullFlavor="NA" /> <code codeSystem="local" code="600-7" displayName="Bacterial blood culture" /> < statusCode code="completed" /> <component> <observation moodCode= "EVN" classCode="OBS"> <templateId root="840.1.487893...4.2 " /> <id nullFlavor="NA" /> <code codeSystem="local" code="600 -7" displayName="Bacterial blood culture" /> <statusCode code= "completed" /> <effectiveTime value="106405850022" /> <value unit="" xsi:type="PQ" value="NG" /> <referenceRange> < observationRange> <text>NRG</text> </observationRange> </referenceRange> </observation> </component> </ organizer> </entry> <entry> <organizer moodCode="EVN" classCode="BATTERY"> <templateId root="06.27.840.1.304531...4.1" /> <id nullFlavor= "NA" /> <code codeSystem="local" code="600-7" displayName="Bacterial blood culture" /> <statusCode code="completed" /> <component> < observation moodCode="EVN" classCode="OBS"> <templateId root= "06.27.840.1.548653.10..22.4.2" /> <id nullFlavor="NA" /> < code codeSystem="local" code="600-7" displayName="Bacterial blood culture" /> <statusCode code="completed" /> <effectiveTime value= "662424643985" /> <value unit="" xsi:type="PQ" value="NG" /> < referenceRange> <observationRange> <text>NRG</text> </observationRange> </referenceRange> </observation> </component> </organizer> </entry> <entry> <organizer moodCode="EVN" classCode="BATTERY"> <templateId root="216.840.1.287956.10.20.22.4.1" /> <id nullFlavor="NA" /> <code codeSystem="local" code="680-9" displayName="Microscopic examination by wet preparation" /> <statusCode code="completed" /> <component> <observation moodCode="EVN" classCode="OBS"> <templateId root="216.840.1.900986.10.20.22.4.2" /> <id nullFlavor="NA" /> <code codeSystem="local" code= "WETRESULT" displayName="WET PREP RESULTS" /> <statusCode code= "completed" /> <effectiveTime value="518361362303" /> <value unit="" xsi:type="PQ" value="05/24 20:14 BY P ADAMA" /> <referenceRange > <observationRange> <text>NRG</text> </ observationRange> </referenceRange> </observation> </ component> </organizer> </entry> <entry> <organizer moodCode="EVN" classCode="BATTERY"> <templateId root="16.840.1.728782.10.20.22.4.1" /> <id nullFlavor="NA" /> <code codeSystem="local" code="76282-0" displayName="Neisseria gonorrhoeae DNA detection by probe and signal amplification method" /> <statusCode code="completed" /> <component> <observation moodCode="EVN" classCode="OBS"> <templateId root= "2.16.840.1.492736.10..22.4.2" /> <id nullFlavor="NA" /> < code codeSystem="local" code="23685-3" displayName="Gonorrhea amp DNA-urine" /> <statusCode code="completed" /> <effectiveTime value= "834580268867" /> <value unit="" xsi:type="PQ" value="Not Detected" /> <referenceRange> <observationRange> <text>Not Detected</text> </observationRange> </referenceRange> </observation> </component> </organizer> </entry> <entry> < organizer moodCode="EVN" classCode="BATTERY"> <templateId root= "2.16.840.1.532791.10..22.4.1" /> <id nullFlavor="NA" /> <code codeSystem="local" code="10318-0" displayName="Chlamydia trachomatis DNA detection by probe and signal amplification method" /> <statusCode code= "completed" /> <component> <observation moodCode="EVN" classCode= "OBS"> <templateId root="2.16.840.1.702315.10.20.22.4.2" /> < id nullFlavor="NA" /> <code codeSystem="local" code="22731-4" displayName="Chlamydia trachomatis DNA detection by probe and target amplification method" /> <statusCode code="completed" /> < effectiveTime value="021676347722" /> <value unit="" xsi:type="PQ" value="Not Detected" /> <referenceRange> <observationRange> <text>Not Detected</text> </observationRange> </referenceRange> </observation> </component> </organizer> </ entry> <entry> <organizer moodCode="EVN" classCode="BATTERY"> < templateId root="2.16.840.1.052778.10.20.22.4.1" /> <id nullFlavor="NA" /> <code codeSystem="local" code="09085-7" displayName="Complete blood count (CBC) with automated white blood cell (WBC) differential" /> <statusCode code="completed" /> <component> <observation moodCode="EVN" classCode="OBS"> <templateId root="2.16.840.1.544791.10.20.22.4.2" /> <id nullFlavor="NA" /> <code codeSystem="local" code="6690-2" displayName="Blood leukocytes automated count (number/volume)" /> < statusCode code="completed" /> <effectiveTime value="" /> <value unit="10*3/uL" xsi:type="PQ" value="9.0" /> < referenceRange> <observationRange> <text>4.3-11.0</text > </observationRange> </referenceRange> </observation > </component> <component> <observation moodCode="EVN" classCode="OBS"> <templateId root="2.16.840.1.093954.10..22.4.2" /> <id nullFlavor="NA" /> <code codeSystem="local" code="789-8" displayName="Blood erythrocytes automated count (number/volume)" /> < statusCode code="completed" /> <effectiveTime value="492018571279" /> <value unit="10*6/uL" xsi:type="PQ" value="3.20" /> < interpretationCode codeSystem="local" code="" /> <referenceRange> <observationRange> <text>4.35-5.85</text> </ observationRange> </referenceRange> </observation> </ component> <component> <observation moodCode="EVN" classCode="OBS"> <templateId root="16.840.1.354285.10.2022.4.2" /> <id nullFlavor="NA" /> <code codeSystem="local" code="08436-1" displayName= "Venous blood hemoglobin measurement (mass/volume)" /> <statusCode code ="completed" /> <effectiveTime value="108079668531" /> <value unit="g/dL" xsi:type="PQ" value="7.0" /> <interpretationCode codeSystem ="local" code="" /> <referenceRange> <observationRange> <text>11.5-16.0</text> </observationRange> </ referenceRange> </observation> </component> <component> <observation moodCode="EVN" classCode="OBS"> <templateId root= "06.27.840.1.090745.10.22.4.2" /> <id nullFlavor="NA" /> < code codeSystem="local" code="19035-6" displayName="Blood hematocrit (volume fraction)" /> <statusCode code="completed" /> <effectiveTime value="856771495008" /> <value unit="%" xsi:type="PQ" value="23" / > <interpretationCode codeSystem="local" code="" /> < referenceRange> <observationRange> <text>35-52</text> </observationRange> </referenceRange> </observation> </component> <component> <observation moodCode="EVN" classCode= "OBS"> <templateId root="16.840.1.282371.10.20.22.4.2" /> < id nullFlavor="NA" /> <code codeSystem="local" code="787-2" displayName ="Automated erythrocyte mean corpuscular volume" /> <statusCode code= "completed" /> <effectiveTime value="070634931583" /> <value unit="[foz_us]" xsi:type="PQ" value="73" /> <interpretationCode codeSystem="local" code="" /> <referenceRange> < observationRange> <text>80-99</text> </observationRange > </referenceRange> </observation> </component> < component> <observation moodCode="EVN" classCode="OBS"> < templateId root="2.16.840.1.411350.10..22.4.2" /> <id nullFlavor="NA " /> <code codeSystem="local" code="785-6" displayName="Automated erythrocyte mean corpuscular hemoglobin (mass per erythrocyte)" /> < statusCode code="completed" /> <effectiveTime value="266079816320" /> <value unit="pg" xsi:type="PQ" value="22" /> < interpretationCode codeSystem="local" code="" /> <referenceRange> <observationRange> <text>25-34</text> </ observationRange> </referenceRange> </observation> </ component> <component> <observation moodCode="EVN" classCode="OBS"> <templateId root="2.16.840.1.451402.10..22.4.2" /> <id nullFlavor="NA" /> <code codeSystem="local" code="786-4" displayName= "Automated erythrocyte mean corpuscular hemoglobin concentration measurement ( mass/volume)" /> <statusCode code="completed" /> < effectiveTime value="002705574068" /> <value unit="g/dL" xsi:type="PQ" value="30" /> <interpretationCode codeSystem="local" code="" /> <referenceRange> <observationRange> <text>32-36</ text> </observationRange> </referenceRange> </ observation> </component> <component> <observation moodCode= "EVN" classCode="OBS"> <templateId root="2.16.840.1.613203.10.20.22.4.2 " /> <id nullFlavor="NA" /> <code codeSystem="local" code="788 -0" displayName="Automated erythrocyte distribution width ratio" /> < statusCode code="completed" /> <effectiveTime value="203303562441" /> <value unit="%" xsi:type="PQ" value="20.6" /> < interpretationCode codeSystem="local" code="" /> <referenceRange> <observationRange> <text>10.0-14.5</text> </ observationRange> </referenceRange> </observation> </ component> <component> <observation moodCode="EVN" classCode="OBS"> <templateId root="216.840.1.507613.10..4.2" /> <id nullFlavor="NA" /> <code codeSystem="local" code="777-3" displayName= "Automated blood platelet count (count/volume)" /> <statusCode code= "completed" /> <effectiveTime value="" /> <value unit="10*3/uL" xsi:type="PQ" value="215" /> <referenceRange> <observationRange> <text>130-400</text> </ observationRange> </referenceRange> </observation> </ component> <component> <observation moodCode="EVN" classCode="OBS"> <templateId root="216.840.1.684636.10.20.22.4.2" /> <id nullFlavor="NA" /> <code codeSystem="local" code="36382-3" displayName= "Automated blood platelet mean volume measurement" /> <statusCode code= "completed" /> <effectiveTime value="473546101560" /> <value unit="[foz_us]" xsi:type="PQ" value="11.1" /> <interpretationCode codeSystem="local" code="" /> <referenceRange> < observationRange> <text>7.4-10.4</text> </ observationRange> </referenceRange> </observation> </ component> <component> <observation moodCode="EVN" classCode="OBS"> <templateId root="2.16.840.1.769724.10.2022.4.2" /> <id nullFlavor="NA" /> <code codeSystem="local" code="770-8" displayName= "Automated blood neutrophils/100 leukocytes" /> <statusCode code= "completed" /> <effectiveTime value="322627836831" /> <value unit="%" xsi:type="PQ" value="78" /> <interpretationCode codeSystem ="local" code="" /> <referenceRange> <observationRange> <text>42-75</text> </observationRange> </ referenceRange> </observation> </component> <component> <observation moodCode="EVN" classCode="OBS"> <templateId root= "2.16.840.1.732942.10.2022.4.2" /> <id nullFlavor="NA" /> < code codeSystem="local" code="736-9" displayName="Automated blood lymphocytes/ 100 leukocytes" /> <statusCode code="completed" /> < effectiveTime value="648018564108" /> <value unit="%" xsi:type="PQ " value="11" /> <interpretationCode codeSystem="local" code="" /> <referenceRange> <observationRange> <text>12-44</ text> </observationRange> </referenceRange> </ observation> </component> <component> <observation moodCode= "EVN" classCode="OBS"> <templateId root="2.16.840.1.159674.10.20.22.4.2 " /> <id nullFlavor="NA" /> <code codeSystem="local" code= "53238-4" displayName="Blood monocytes/100 leukocytes" /> <statusCode code="completed" /> <effectiveTime value="632646213746" /> < value unit="%" xsi:type="PQ" value="11" /> <referenceRange> <observationRange> <text>0-12</text> </ observationRange> </referenceRange> </observation> </ component> <component> <observation moodCode="EVN" classCode="OBS"> <templateId root="216.840.1.458887.10..22.4.2" /> <id nullFlavor="NA" /> <code codeSystem="local" code="713-8" displayName= "Automated blood eosinophils/100 leukocytes" /> <statusCode code= "completed" /> <effectiveTime value="253611579576" /> <value unit="%" xsi:type="PQ" value="1" /> <referenceRange> < observationRange> <text>0-10</text> </observationRange> </referenceRange> </observation> </component> < component> <observation moodCode="EVN" classCode="OBS"> < templateId root="216.840.1.207434.10.20.22.4.2" /> <id nullFlavor="NA " /> <code codeSystem="local" code="706-2" displayName="Automated blood basophils/100 leukocytes" /> <statusCode code="completed" /> <effectiveTime value="601429295857" /> <value unit="%" xsi: type="PQ" value="0" /> <referenceRange> <observationRange> <text>0-10</text> </observationRange> </ referenceRange> </observation> </component> <component> <observation moodCode="EVN" classCode="OBS"> <templateId root= "2.16.840.1.345080.10.2022.4.2" /> <id nullFlavor="NA" /> < code codeSystem="local" code="751-8" displayName="Blood neutrophils automated count (number/volume)" /> <statusCode code="completed" /> < effectiveTime value="141979983857" /> <value unit="10*3" xsi:type="PQ" value="7.0" /> <referenceRange> <observationRange> <text>1.8-7.8</text> </observationRange> </ referenceRange> </observation> </component> <component> <observation moodCode="EVN" classCode="OBS"> <templateId root= "2.16.840.1.905873.10.2022.4.2" /> <id nullFlavor="NA" /> < code codeSystem="local" code="731-0" displayName="Blood lymphocytes automated count (number/volume)" /> <statusCode code="completed" /> < effectiveTime value="911203462242" /> <value unit="10*3" xsi:type="PQ" value="1.0" /> <referenceRange> <observationRange> <text>1.0-4.0</text> </observationRange> </ referenceRange> </observation> </component> <component> <observation moodCode="EVN" classCode="OBS"> <templateId root= "216.840.1.749766.22.4.2" /> <id nullFlavor="NA" /> < code codeSystem="local" code="742-7" displayName="Blood monocytes automated count (number/volume)" /> <statusCode code="completed" /> < effectiveTime value="388793913236" /> <value unit="10*3" xsi:type="PQ" value="1.0" /> <referenceRange> <observationRange> <text>0.0-1.0</text> </observationRange> </ referenceRange> </observation> </component> <component> <observation moodCode="EVN" classCode="OBS"> <templateId root= "06.27.840.1.554023.02.28.22.4.2" /> <id nullFlavor="NA" /> < code codeSystem="local" code="711-2" displayName="Automated eosinophil count" / > <statusCode code="completed" /> <effectiveTime value= "447680954538" /> <value unit="10*3/uL" xsi:type="PQ" value="0.1" /> <referenceRange> <observationRange> <text>0.0- 0.3</text> </observationRange> </referenceRange> </ observation> </component> <component> <observation moodCode= "EVN" classCode="OBS"> <templateId root="06.27.840.1.229164.22.4.2 " /> <id nullFlavor="NA" /> <code codeSystem="local" code="704 -7" displayName="Automated blood basophil count (count/volume)" /> < statusCode code="completed" /> <effectiveTime value="119559642240" /> <value unit="10*3/uL" xsi:type="PQ" value="0.0" /> < referenceRange> <observationRange> <text>0.0-0.1</text> </observationRange> </referenceRange> </observation > </component> </organizer> </entry> <entry> <organizer moodCode= "EVN" classCode="BATTERY"> <templateId root="2.16.840.1.584646.10.20.22.4.1 " /> <id nullFlavor="NA" /> <code codeSystem="local" code="72183-1" displayName="Serum iron and total iron binding capacity panel" /> < statusCode code="completed" /> <component> <observation moodCode= "EVN" classCode="OBS"> <templateId root="2.16.840.1.016349.10.20.22.4.2 " /> <id nullFlavor="NA" /> <code codeSystem="local" code= "2498-4" displayName="Serum or plasma iron measurement (mass/volume)" /> <statusCode code="completed" /> <effectiveTime value="276226397900" /> <value unit="%" xsi:type="PQ" value="<" /> < interpretationCode codeSystem="local" code="" /> <referenceRange> <observationRange> <text>35-180</text> </ observationRange> </referenceRange> </observation> </ component> <component> <observation moodCode="EVN" classCode="OBS"> <templateId root="216.840.1.090044.10.20.22.4.2" /> <id nullFlavor="NA" /> <code codeSystem="local" code="60714-2" displayName= "Total iron binding capacity and transferrin saturation measurement" /> <statusCode code="completed" /> <effectiveTime value="787614474735" / > <value unit="%" xsi:type="PQ" value="<" /> < referenceRange> <observationRange> <text>15-50</text> </observationRange> </referenceRange> </observation> </component> <component> <observation moodCode="EVN" classCode= "OBS"> <templateId root="216.840.1.211963.10.20.22.4.2" /> < id nullFlavor="NA" /> <code codeSystem="local" code="2500" displayName="Iron binding capacity [mass/volume] in serum or plasma" /> <statusCode code="completed" /> <effectiveTime value="353628101923" / > <value unit="%" xsi:type="PQ" value="<" /> < referenceRange> <observationRange> <text>280-380</text> </observationRange> </referenceRange> </observation > </component> <component> <observation moodCode="EVN" classCode="OBS"> <templateId root="06.27.840.1.335198.10.20.22.4.2" /> <id nullFlavor="NA" /> <code codeSystem="local" code="25005-16" displayName="UIBC (unsaturated iron binding capacity)" /> <statusCode code="completed" /> <effectiveTime value="700175297494" /> < value unit="%" xsi:type="PQ" value="370" /> <referenceRange> <observationRange> <text>55-450</text> </ observationRange> </referenceRange> </observation> </ component> <component> <observation moodCode="EVN" classCode="OBS"> <templateId root="06.27.840.1.365873.10.20.22.4.2" /> <id nullFlavor="NA" /> <code codeSystem="local" code="2276-4" displayName= "Serum or plasma ferritin measurement (mass/volume)" /> <statusCode code="completed" /> <effectiveTime value="009137303987" /> < value unit="%" xsi:type="PQ" value="63.2" /> <referenceRange> <observationRange> <text>20.0-177.0</text> </ observationRange> </referenceRange> </observation> </ component> </organizer> </entry> <entry> <organizer moodCode="EVN" classCode="BATTERY"> <templateId root="216.840.1.519691.10.20.22.4.1" /> <id nullFlavor="NA" /> <code codeSystem="local" code="26077-9" displayName="Whole blood basic metabolic panel" /> <statusCode code= "completed" /> <component> <observation moodCode="EVN" classCode= "OBS"> <templateId root="216.840.1.936135.10.20.22.4.2" /> < id nullFlavor="NA" /> <code codeSystem="local" code="2951-2" displayName="Serum or plasma sodium measurement (moles/volume)" /> < statusCode code="completed" /> <effectiveTime value="637721782754" /> <value unit="mmol/L" xsi:type="PQ" value="139" /> < referenceRange> <observationRange> <text>135-145</text> </observationRange> </referenceRange> </observation > </component> <component> <observation moodCode="EVN" classCode="OBS"> <templateId root="216.840.1.825837.10.20.22.4.2" /> <id nullFlavor="NA" /> <code codeSystem="local" code="2823-3" displayName="Serum or plasma potassium measurement (moles/volume)" /> < statusCode code="completed" /> <effectiveTime value="496050607053" /> <value unit="mmol/L" xsi:type="PQ" value="3.6" /> < referenceRange> <observationRange> <text>3.6-5.0</text> </observationRange> </referenceRange> </observation > </component> <component> <observation moodCode="EVN" classCode="OBS"> <templateId root="2.16.840.1.723363.10.20.22.4.2" /> <id nullFlavor="NA" /> <code codeSystem="local" code="" displayName="Serum or plasma chloride measurement (moles/volume)" /> < statusCode code="completed" /> <effectiveTime value="889093155644" /> <value unit="mmol/L" xsi:type="PQ" value="109" /> < interpretationCode codeSystem="local" code="" /> <referenceRange> <observationRange> <text>98-107</text> </ observationRange> </referenceRange> </observation> </ component> <component> <observation moodCode="EVN" classCode="OBS"> <templateId root="2.16.840.1.901672.10.20.22.4.2" /> <id nullFlavor="NA" /> <code codeSystem="local" code="2028-01" displayName= "Carbon dioxide" /> <statusCode code="completed" /> < effectiveTime value="483853584380" /> <value unit="mmol/L" xsi:type="PQ " value="21" /> <referenceRange> <observationRange> <text>21-32</text> </observationRange> </ referenceRange> </observation> </component> <component> <observation moodCode="EVN" classCode="OBS"> <templateId root= "2.16.840.1.931269.10.20.22.4.2" /> <id nullFlavor="NA" /> < code codeSystem="local" code="42517-3" displayName="Serum or plasma anion gap determination (moles/volume)" /> <statusCode code="completed" /> <effectiveTime value="" /> <value unit="mmol/L" xsi: type="PQ" value="9" /> <referenceRange> <observationRange> <text>5-14</text> </observationRange> </ referenceRange> </observation> </component> <component> <observation moodCode="EVN" classCode="OBS"> <templateId root= "216.840.1.717259.10..22.4.2" /> <id nullFlavor="NA" /> < code codeSystem="local" code="3094-0" displayName="Serum or plasma urea nitrogen measurement (mass/volume)" /> <statusCode code="completed" /> <effectiveTime value="" /> <value unit="mg/dL" xsi:type="PQ" value="18" /> <referenceRange> < observationRange> <text>7-18</text> </observationRange> </referenceRange> </observation> </component> < component> <observation moodCode="EVN" classCode="OBS"> < templateId root="16.840.1.938562.10..22.4.2" /> <id nullFlavor="NA " /> <code codeSystem="local" code="2160-0" displayName="Serum or plasma creatinine measurement (mass/volume)" /> <statusCode code= "completed" /> <effectiveTime value="690702122414" /> <value unit="mg/dL" xsi:type="PQ" value="0.75" /> <referenceRange> <observationRange> <text>0.60-1.30</text> </ observationRange> </referenceRange> </observation> </ component> <component> <observation moodCode="EVN" classCode="OBS"> <templateId root="216.840.1.600503.10.20.22.4.2" /> <id nullFlavor="NA" /> <code codeSystem="local" code="3097-3" displayName= "Serum or plasma urea nitrogen/creatinine mass ratio" /> <statusCode code="completed" /> <effectiveTime value="693857609294" /> < value unit="" xsi:type="PQ" value="24" /> <referenceRange> < observationRange> <text>NRG</text> </observationRange> </referenceRange> </observation> </component> < component> <observation moodCode="EVN" classCode="OBS"> < templateId root="06.27.840.1.509963.10..22.4.2" /> <id nullFlavor="NA " /> <code codeSystem="local" code="57527-0" displayName="Serum or plasma creatinine measurement with calculation of estimated glomerular filtration rate" /> <statusCode code="completed" /> < effectiveTime value="678317475908" /> <value unit="" xsi:type="PQ" value=">" /> <referenceRange> <observationRange> <text>NRG</text> </observationRange> </referenceRange > </observation> </component> <component> <observation moodCode="EVN" classCode="OBS"> <templateId root= "16.840.1.029050.10.20.22.4.2" /> <id nullFlavor="NA" /> < code codeSystem="local" code="2345-7" displayName="Serum or plasma glucose measurement (mass/volume)" /> <statusCode code="completed" /> <effectiveTime value="638853661853" /> <value unit="mg/dL" xsi:type="PQ " value="92" /> <referenceRange> <observationRange> <text>70-105</text> </observationRange> </ referenceRange> </observation> </component> <component> <observation moodCode="EVN" classCode="OBS"> <templateId root= "2.16.840.1.891127.10.20.22.4.2" /> <id nullFlavor="NA" /> < code codeSystem="local" code="98821-2" displayName="Serum or plasma calcium measurement (mass/volume)" /> <statusCode code="completed" /> <effectiveTime value="519500179209" /> <value unit="mg/dL" xsi:type="PQ " value="8.3" /> <interpretationCode codeSystem="local" code="" /> <referenceRange> <observationRange> <text>8.5- 10.1</text> </observationRange> </referenceRange> </ observation> </component> </organizer> </entry></section> Encounters ACCT No. Visit Date/Time Discharge Status Pt. Type Provider Facility Loc./Unit Complaint [id number] 11/09/2016 16:32:00 11/09/2016 16:58:00 DIS Emergency Secrist [facility] W.ED [id number] 09/06/2016 12:52:00 09/06/2016 16:30:00 DIS Emergency Secrist [facility] W.ED [id number] 07/31/2016 16:36:00 07/31/2016 16:56:00 DIS Emergency [facility] W.ED [id number] 01/11/2016 08:16:00 01/11/2016 08:47:00 DIS Emergency Marc TA, [facility] W.EDW [id number] 12/28/2015 19:32:00 12/28/2015 20:25:00 DIS Emergency Marc TA, [facility].EDW [id number] 11/28/2015 08:04:00 11/28/2015 08:30:00 DIS Emergency Jesica TA, Leon [facility].EDW [id number] 01/04/2015 09:52:00 01/04/2015 13:04:00 DIS Emergency Santoyo , [facility] W.HANNAH [id number] 01/01/2015 09:22:00 01/01/2015 12:40:00 DIS Emergency Markus SANTACRUZ, Colt Lal [facility] W.EDW [id number] 12/27/2014 21:37:00 12/27/2014 23:13:00 DIS Emergency Marc TA, [facility].EDW [id number] 09/17/2014 10:42:00 09/17/2014 11:10:00 [id number]/2017 08:00:00 11/26/2017 23:59:59 CLS Outpatient FAWN VIEIRA [facility] [id number] 11/19/2017 20:04:00 11/20/2017 13:40:00 DIS Outpatient Leon Naik [facility] MED-SURG [id number] 03/31/2017 12:56:00 03/31/2017 23:59:00 DIS Outpatient Roxy Moon [id number] 03/27/2017 21:26:00 03/28/2017 18:20:00 DIS Outpatient Daniel Joseph [facility] MED-SURG [id number] 03/27/2017 23:46:04 Document Registration [id number] 06/12/2018 20:39:00 06/12/2018 21:21:00 DIS Emergency IRISH ECKERT [facility] ER L LEG POSS STAPH INFECTION /WOUND [id number] 06/12/2018 17:05:00 06/12/2018 17:16:00 DIS Emergency IRISH ECKERT [facility] ER L LEG POSS STAPH INFECTION /WOUND [id number] 05/24/2018 20:00:00 05/26/2018 14:55:00 DIS Inpatient BLAYNE TA, CHET Whipple [facility] 4TH PYELONEPHRITIS, HYDROSALPYRX [id number] 03/19/2018 17:23:00 03/21/2018 11:50:00 DIS Inpatient JOSEPH TA, JOSE Whipple [facility] 4TH SEPSIS, UTI [id number] 01/29/2018 12:54:00 01/29/2018 19:55:00 DIS [facility] [id number] 12/01/2017 17:13:00 12/01/2017 18:01:00 DIS Emergency IRISH ECKERT [facility] ER L HAND INJ [id number] 05/29/2017 02:30:00 05/29/2017 06:20:00 DIS Emergency KENDRA TA, SHIRLENE Jackson [facility] ER LEFT SIDE ABD PAIN [id number] 11/19/2017 20:04:00 Document Registration
--- NOTE | 2018-06-13 12:40 | NUR ---
Pt called and pt not in waiting room.
== END | disposition left against medical advice (07) ==
LOC: EDUNIT# 12:07 → ER 12:08
DX: M79.9 Soft tissue disorder, unspecified (principal)

== ENCOUNTER 2018-10-07 18:52 | Emergency (ER) | payer SELFPAY ==
[~2018-10-07] VITALS: Ht 160 cm; Wt 56.7 kg
[2018-10-07 19:24] LABS: BILIRUBIN,URINE NEGATIVE (NEGATIVE); CLARITY,URINE CLEAR; COLOR,URINE YELLOW; GLUCOSE, URINE (UA) NEGATIVE (NEGATIVE); KETONES,URINE NEGATIVE (NEGATIVE); LEUKOCYTE ESTERASE ,URINE NEGATIVE (NEGATIVE); NITRITE,URINE NEGATIVE (NEGATIVE); PH,URINE 6.5 (5-9); PROTEIN,URINE NEGATIVE (NEGATIVE); UROBILINOGEN,URINE NORMAL (NORMAL)
[2018-10-07] MEDS ORDERED: NS IV 1000 ML 1,000 ML IV SCH (19:30)
[2018-10-07] MEDS ORDERED: fentaNYL INJECTION 100 MCG/2 ML AMP IVP ONE (19:30)
[2018-10-07 19:34] LABS: BASOPHILS # (AUTO) 0.1 10^3/uL (0.0-0.1); BASOPHILS % (AUTO) 1 % (0-10); EOSINOPHILS # (AUTO) 0.3 10^3/uL (0.0-0.3); EOSINOPHILS % (AUTO) 3 % (0-10); HEMATOCRIT 32 % (35-52); LYMPHOCYTES # (AUTO) 2.4 X 10^3 (1.0-4.0); LYMPHOCYTES % (AUTO) 30 % (12-44); MEAN CORPUSCULAR HEMOGLOBIN 23 PG (25-34); MEAN CORPUSCULAR HGB CONC 31 G/DL (32-36); MEAN CORPUSCULAR VOLUME 74 FL (80-99); MONOCYTES # (AUTO) 0.6 X 10^3 (0.0-1.0); MONOCYTES % (AUTO) 8 % (0-12); NEUTROPHILS # (AUTO) 4.6 X 10^3 (1.8-7.8); NEUTROPHILS % (AUTO) 58 % (42-75); PLATELET COUNT 284 10^3/uL (130-400)
[2018-10-07 19:35] LABS: BACTERIA,URINE NEGATIVE /HPF; RBC,URINE 0-2 /HPF
[2018-10-07 20:11] LABS: ALANINE AMINOTRANSFERASE 14 U/L (0-55); ALBUMIN 4.2 GM/DL (3.2-4.5); ALKALINE PHOSPHATASE 70 U/L (40-136); BILIRUBIN,TOTAL 0.1 MG/DL (0.1-1.0); BUN/CREATININE RATIO 25; CALCIUM 9.8 MG/DL (8.5-10.1); CARBON DIOXIDE 26 MMOL/L (21-32); CHLORIDE 105 MMOL/L (98-107); CREATININE SERUM 0.73 MG/DL (0.60-1.30); GFR ESTIMATED > 60; GLUCOSE 68 MG/DL (70-105); LIPASE 56 U/L (8-78); POTASSIUM 3.8 MMOL/L (3.6-5.0); SODIUM 139 MMOL/L (135-145); TOTAL PROTEIN 6.7 GM/DL (6.4-8.2)
[2018-10-07] MEDS ORDERED: HOLD METFORMIN - RECEIVED CONTRAST 20 ML VIAL IV SCH (20:30)
[2018-10-07] MEDS ORDERED: NS 100 ML (IVPB) BAG IV ONE (20:30)
[2018-10-07] MEDS ORDERED: IOHEXOL 350 MG/ML 100 ML (OMNIPAQUE 350) VIAL IV ONE (20:30)
--- NOTE | 2018-10-07 20:44 | ED Abdominal Pain ---
General Chief Complaint: Abdominal/GI Problems Stated Complaint: ABD PAIN Nursing Triage Note: Pt ambulatory to [facility]. Pt c/o L lower side abdominal pain that began this morning. Pt denies nause or vomiting. Pt reports diarrhea for 1.5 days. Pt reports fallopian cyst in the past and reports this feels similar. Pt reports menstruation that began this morning, but is not normal. Pt describes as spotting. Sepsis Screen: No Definite Risk Source of Information: Patient History of Present Illness Date Seen by Provider: October 07, 2018 Time Seen by Provider: 19:31 Initial Comments 33-year-old female who presents to the emergency room with left lower quadrant abdominal pain that started this morning. She denies nausea, vomiting. She does report diarrhea for one day. She reports she has history of colitis. Timing/Duration: 1-2 Days Location: [facility] Radiation: No Radiation Associated Symptoms: Denies Symptoms Allergies and Home Medications Allergies Coded Allergies: ciprofloxacin (Unverified Allergy, Unknown, 05/29/17) Home Medications Cephalexin 500 Mg Capsule, 500 MG PO BID Prescribed by: JOSE RUIZ on 05/26/18 1327 Patient Home Medication List Home Medication List Reviewed: Yes Review of Systems Review of Systems Constitutional: see HPI; No chills, No fever Gastrointestinal: See HPI, Abdominal Pain, Diarrhea All Other Systems Reviewed Negative Unless Noted: Yes Past Yirdmbi-Wsijzb-Idbsvg Hx Past Med/Social Hx: Reviewed Nursing Past Med/Soc Hx Patient Social History Alcohol Use: Denies Use Recreational Drug Use: No 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 Smoking Status: Current Everyday Smoker Type Used: Cigarettes 2nd Hand Smoke Exposure: Yes Recent Foreign Travel: No Contact w/Someone Who Travel: No Recent Infectious Disease Expo: No Recent Hopitalizations: Yes (UTI 3 months ago) Immunizations Up To Date Tetanus Booster (TDap): Unknown PED Vaccines UTD: Yes Seasonal Allergies Seasonal Allergies: No Past Medical History Surgeries: Yes Adenoidectomy, Breast, Section, Tonsillectomy Respiratory: No Currently Using CPAP: No Currently Using BIPAP: No Cardiac: No Neurological: No Last Menstrual Period: October 07, 2018 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: No [employer] History: Tubal Ligation Genitourinary: Yes (recurrent urinary tract infection) Kidney Infection, UTI-Chronic Gastrointestinal: Yes (COLLAGENOUS COLITIS) Colitis Musculoskeletal: Yes Scoliosis Endocrine: No HEENT: No Cancer: No Psychosocial: No Integumentary: No Blood Disorders: Yes (anemia) Adverse Reaction/Blood Tranf: No (has received blood on mult occasions) Family Medical History Reviewed Nursing Family Hx Diabetes mellitus maternal grandfather paternal grandfather Gastroenteritis 19 FATHER paternal grandmother ( from sepsis at age 85) maternal grandfather Hypertension 19 MOTHER maternal grandmother maternal grandfather Neoplasm maternal aunt (breast cancer) Physical Exam Vital Signs Vital Signs - First Documented 10/07/18 18:55 Temp 96.5 Pulse 97 Resp 16 B/P (MAP) 131/86 (101) Pulse Ox 100 O2 Delivery Room Air Capillary Refill : Less Than 3 Seconds Height/Weight/BMI Height: 5'3.00" Weight: 125lbs. 3.0oz. 56.601413bq; 20.8 BMI Method:Stated General Appearance: WD/WN, no apparent distress Respiratory: chest non-tender, lungs clear, normal breath sounds, no respiratory distress, no accessory muscle use Cardiovascular: normal peripheral pulses, regular rate, rhythm, no edema, no gallop, no JVD, no murmur Gastrointestinal: normal bowel sounds, non tender, soft, no organomegaly, no pulsatile mass Extremities: normal capillary refill Neurologic/Psychiatric: alert, normal mood/affect, oriented x 3 Skin: normal color, warm/dry Progress/Results/Core Measures Results/Orders Lab Results Laboratory Tests Test 10/07/18 19:10 10/07/18 19:25 Range/Units Urine Color YELLOW Urine Clarity CLEAR Urine pH 6.5 5-9 Urine Specific [place] 1.020 1.016-1.022 Urine Protein NEGATIVE NEGATIVE Urine Glucose (UA) NEGATIVE NEGATIVE Urine Ketones NEGATIVE NEGATIVE Urine Nitrite NEGATIVE NEGATIVE Urine Bilirubin NEGATIVE NEGATIVE Urine Urobilinogen NORMAL NORMAL MG/DL Urine Leukocyte Esterase NEGATIVE NEGATIVE Urine RBC (Auto) 3+ H NEGATIVE Urine RBC 0-2 /HPF Urine WBC NONE /HPF Urine Squamous Epithelial Cells 5-10 /HPF Urine Crystals NONE /LPF Urine Bacteria NEGATIVE /HPF Urine Casts NONE /LPF Urine Mucus NEGATIVE /LPF Urine Culture Indicated NO White Blood Count 8.0 4.3-11.0 10^3/uL Red Blood Count 4.37 4.35-5.85 10^6/uL Hemoglobin 10.0 L 11.5-16.0 G/DL Hematocrit 32 L 35-52 % Mean Corpuscular Volume 74 L 80-99 FL Mean Corpuscular Hemoglobin 23 L 25-34 PG Mean Corpuscular Hemoglobin Concent 31 L 32-36 G/DL Red Cell Distribution Width 10.0-14.5 % Platelet Count 284 130-400 10^3/uL Mean Platelet Volume 10.0 7.4-10.4 FL Neutrophils (%) (Auto) 58 42-75 % Lymphocytes (%) (Auto) 30 12-44 % Monocytes (%) (Auto) 8 0-12 % Eosinophils (%) (Auto) 3 0-10 % Basophils (%) (Auto) 1 0-10 % Neutrophils # (Auto) 4.6 1.8-7.8 X 10^3 Lymphocytes # (Auto) 2.4 1.0-4.0 X 10^3 Monocytes # (Auto) 0.6 0.0-1.0 X 10^3 Eosinophils # (Auto) 0.3 0.0-0.3 10^3/uL Basophils # (Auto) 0.1 0.0-0.1 10^3/uL Sodium Level 139 135-145 MMOL/L Potassium Level 3.8 3.6-5.0 MMOL/L Chloride Level 105 98-107 MMOL/L Carbon Dioxide Level 26 21-32 MMOL/L Anion Gap 8 5-14 MMOL/L Blood Urea Nitrogen 18 7-18 MG/DL Creatinine 0.73 0.60-1.30 MG/DL Estimat Glomerular Filtration Rate > 60 BUN/Creatinine Ratio 25 Glucose Level 68 L 70-105 MG/DL Calcium Level 9.8 8.5-10.1 MG/DL Corrected Calcium 9.6 8.5-10.1 MG/DL Total Bilirubin 0.1 0.1-1.0 MG/DL Aspartate Amino Transf (AST/SGOT) 17 5-34 U/L Alanine Aminotransferase (ALT/SGPT) 14 0-55 U/L Alkaline Phosphatase 70 40-136 U/L Total Protein 6.7 6.4-8.2 GM/DL Albumin 4.2 3.2-4.5 GM/DL Lipase 56 8-78 U/L Serum Test, Qualitative NEGATIVE NEGATIVE My Orders Orders - IRISH ECKERT Ns Iv 1000 Ml (Sodium Chloride 0.9%) (10/07/18 19:30) Fentanyl Injection (Sublimaze Injection (10/07/18 19:30) Ct Abdomen/Pelvis W (10/07/18 20:04) Iohexol Injection (Omnipaque 350 Mg/Ml 1 (10/07/18 20:30) Received Contrast (Hold Metformin- Contr (10/07/18 20:30) Ns (Ivpb) (Sodium Chloride 0.9% Ivpb Bag (10/07/18 20:30) Iv Push Transistor Tester Ed (10/07/18 ) Medications Given in ED Vital Signs/I&O 10/07/18 10/07/18 18:55 21:34 Temp 96.5 96.5 Pulse 97 89 Resp 16 16 B/P (MAP) 131/86 (101) 137/91 (106) Pulse Ox 100 97 O2 Delivery Room Air Room Air Blood Pressure Mean: 101 Departure Impression Primary Impression: Constipation Disposition: 01 HOME, SELF-CARE Condition: Stable/Unchanged Departure-Patient Inst. Decision time for Depature: 21:12 Referrals: NO,LOCAL PHYSICIAN (PCP/Family) Primary Care Physician Patient Instructions: Constipation, Adult (DC) Add. Discharge Instructions: You may use ibuprofen and Tylenol as directed by the bottle for pain relief. You may use MiraLAX 1 capful twice a day until her symptoms have resolved. Follow-up with your primary care provider within 1 week for recheck. Return back to the emergency room for worsening symptoms or concerns as needed. All discharge instructions reviewed with patient and/or family. Voiced understanding. IRISH ECKERT October 07, 2018 20:44
--- NOTE | 2018-10-07 21:01 | Diagnostic Imaging Report ---
PROCEDURE: CT abdomen and pelvis with contrast. TECHNIQUE: Multiple contiguous axial images were obtained through the abdomen and pelvis after administration of intravenous contrast. Auto Exposure Controls were utilized during the CT exam to meet ALARA standards for radiation dose reduction. INDICATION: Abdominal pain. Comparison is made with prior examination from 05/24/2018. FINDINGS: The heart size is normal. The lung bases are clear. The liver is normal in size without focal lesions. Gallbladder is contracted. There is no biliary duct dilatation. Spleen is normal. The pancreas and adrenal glands are unremarkable. There are several bilateral renal cysts. Aorta is nonaneurysmal. The bowel gas pattern is nonspecific. There is a moderate amount of retained fecal material likely reflecting some degree of constipation. There is no free air. The uterus is somewhat prominent. There is some fluid in the endometrial cavity. Bladder is normal. There is no pelvic mass or adenopathy. The osseous structures are unremarkable. IMPRESSION: Large amount of retained fecal material likely reflecting some degree of constipation. Nonspecific prominence of the uterus which is distended with fluid. This may simply be reflective of patient's menstrual cycle. Recommend clinical correlation and if warranted this could be better evaluated with pelvic ultrasound. Numerous tiny bilateral renal cysts. Dictated by: Dictated on workstation # [id number]
[2018-10-07 21:34] VITALS: BP 137/91
== END 2018-10-07 21:34 | disposition home or self-care (01) ==
LOC: EDUNIT# 18:52 → ER 18:53
DX: K59.00 Constipation, unspecified (principal); F15.10 Other stimulant abuse, uncomplicated; F12.10 Cannabis abuse, uncomplicated; M41.9 Scoliosis, unspecified; D64.9 Anemia, unspecified; F17.210 Nicotine dependence, cigarettes, uncomplicated; Z88.1 Allergy status to other antibiotic agents; Z90.89 Acquired absence of other organs; Z80.3 Family history of malignant neoplasm of breast; Z98.890 Other specified postprocedural states; Z87.440 Personal history of urinary (tract) infections; Z87.448 Personal history of other diseases of urinary system; Z98.51 Tubal ligation status; Z87.19 Personal history of other diseases of the digestive system
CPT/HCPCS: 36415; 74177; 80053; 81000; 83690; 84703; 85025; 96361; 96374

== ENCOUNTER 2018-10-18 14:53 | Emergency (ER) | payer SELFPAY ==
[~2018-10-18] VITALS: Ht 160 cm; Wt 54.4 kg
[2018-10-18] MEDS ORDERED: DOXY100C2 PO (16:09)
--- NOTE | 2018-10-18 16:09 | ED Integumentary General ---
General Chief Complaint: Skin/Wound Problems Stated Complaint: RASH ALL OVER Nursing Triage Note: pt verbalized rash started yesterday. states generalized. pt verbalized tick bite on abdomen x4 days ago. Rash noted to be on neck and left arm. Source: patient Exam Limitations: no limitations History of Present Illness Date Seen by Provider: Oct 18, 2018 Time Seen by Provider: 15:37 Initial Comments 33 year old female who presents to ED for rash for 4 days after tick bite. Denies fevers or SOB. Associated Symptoms: rash Allergies and Home Medications Allergies Coded Allergies: ciprofloxacin (Unverified Allergy, Unknown, 05/29/17) Home Medications Cephalexin 500 Mg Capsule, 500 MG PO BID Prescribed by: JOSE RUIZ on 05/26/18 1327 Doxycycline Hyclate 100 Mg Capsule, 100 MG PO BID Prescribed by: IRISH ECKERT on 10/18/18 1609 Patient Home Medication List Home Medication List Reviewed: Yes Review of Systems Review of Systems Constitutional: see HPI; No chills, No fever Skin: see HPI, rash All Other Systems Reviewed Negative Unless Noted: Yes Past Katfuiy-Awptcs-Vrftrc Hx Past Med/Social Hx: Reviewed Nursing Past Med/Soc Hx Patient Social History Alcohol Use: Occasionally Uses Recreational Drug Use: No 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 Smoking Status: Current Everyday Smoker Type Used: Cigarettes 2nd Hand Smoke Exposure: Yes Recent Foreign Travel: No Contact w/Someone Who Travel: No Recent Infectious Disease Expo: No Recent Hopitalizations: Yes (UTI 3 months ago) Immunizations Up To Date Tetanus Booster (TDap): Unknown PED Vaccines UTD: Yes Seasonal Allergies Seasonal Allergies: No Past Medical History Surgeries: Yes Adenoidectomy, Breast, Section, Tonsillectomy Respiratory: No Currently Using CPAP: No Currently Using BIPAP: No Cardiac: No Neurological: No 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: No [employer] History: Tubal Ligation Genitourinary: Yes (recurrent urinary tract infection) Kidney Infection, UTI-Chronic Gastrointestinal: Yes (COLLAGENOUS COLITIS) Colitis Musculoskeletal: Yes Scoliosis Endocrine: No HEENT: No Cancer: No Psychosocial: No Integumentary: No Blood Disorders: Yes (anemia) Adverse Reaction/Blood Tranf: No (has received blood on mult occasions) Family Medical History Reviewed Nursing Family Hx Diabetes mellitus maternal grandfather paternal grandfather Gastroenteritis 19 FATHER paternal grandmother ( from sepsis at age 85) maternal grandfather Hypertension 19 MOTHER maternal grandmother maternal grandfather Neoplasm maternal aunt (breast cancer) Physical Exam Vital Signs Vital Signs - First Documented 10/18/18 15:03 Temp 98.2 Pulse 96 Resp 18 B/P (MAP) 121/95 (104) Pulse Ox 96 O2 Delivery Room Air Capillary Refill : Less Than 3 Seconds General Appearance: WD/WN, no apparent distress Cardiovascular: normal peripheral pulses, regular rate, rhythm, no edema, no gallop, no JVD, no murmur Respiratory: chest non-tender, lungs clear, normal breath sounds, no respiratory distress, no accessory muscle use Skin: normal color, warm/dry, rash Skin Problem Location: generalized Skin Problem Character: rash (flat red in color rash ) Progress/Results/Core Measures Results/Orders Lab Results Laboratory Tests Test 10/18/18 15:29 Range/Units My Orders Orders - IRISH ECKERT Tick Panel With Lyme Eia (10/18/18 15:06) Vital Signs/I&O 10/18/18 10/18/18 15:03 16:15 Temp 98.2 98.0 Pulse 96 80 Resp 18 18 B/P (MAP) 121/95 (104) 120/70 (87) Pulse Ox 96 98 O2 Delivery Room Air Room Air Blood Pressure Mean: 104 Departure Impression Primary Impression: possible tick borne illness Additional Impression: Tick bite Disposition: 01 HOME, SELF-CARE Condition: Stable/Unchanged Departure-Patient Inst. Decision time for Depature: 16:06 Referrals: NO,LOCAL PHYSICIAN (PCP/Family) Primary Care Physician Patient Instructions: Lyme Disease Test, Skin Rash (DC) Add. Discharge Instructions: You may use oral and topical Benadryl as directed per packaging. Take antibiotics as directed. Follow-up with your primary care provider within 1 week for recheck. Return back to the emergency room for worsening symptoms or concerns as needed. All discharge instructions reviewed with patient and/or family. Voiced understanding. Scripts Doxycycline Hyclate (Doxycycline Hyclate) 100 Mg Capsule 100 MG PO BID for 7 Days, #14 CAP Prov: IRISH ECKERT 10/18/18 IRISH ECKERT Oct 18, 2018 16:09
[2018-10-18 16:15] VITALS: BP 120/70
== END 2018-10-18 16:23 | disposition home or self-care (01) ==
LOC: EDUNIT# 14:53 → ER 14:54
DX: S10.96XA Insect bite of unspecified part of neck, initial encounter (principal); S40.862A Insect bite (nonvenomous) of left upper arm, initial encounter; M41.9 Scoliosis, unspecified; D64.9 Anemia, unspecified; F17.210 Nicotine dependence, cigarettes, uncomplicated; Z88.1 Allergy status to other antibiotic agents; Z90.89 Acquired absence of other organs; Z80.3 Family history of malignant neoplasm of breast; Z82.49 Family history of ischemic heart disease and other diseases of the circulatory system; Z98.890 Other specified postprocedural states; Z98.51 Tubal ligation status; Z87.440 Personal history of urinary (tract) infections; Z87.19 Personal history of other diseases of the digestive system; W57.XXXA Bitten or stung by nonvenomous insect and other nonvenomous arthropods, initial encounter
CPT/HCPCS: 36415; 86618; 86666; 86668; 86757; 99282

== ENCOUNTER 2018-12-08 18:49 | Emergency (ER) | payer SELFPAY ==
[~2018-12-08] VITALS: Ht 160 cm; Wt 54.5 kg
[~2018-12-08 18:49] MED LIST changes: +DOXY100C2 PO
--- OUTSIDE RECORDS SUMMARY | 2018-12-08 18:56 | XMS REPORT | Continuity of Care Document ---
Author Organization Unknown Address Unknown Phone Unavailable Allergies Active Description Code Type Severity Reaction Onset Reported/Identified Relationship to Patient Clinical Status Yes No Known Drug Allergies [id number] Drug Allergy Unknown N/A 09/22/2007 Yes ciprofloxacin ciprofloxacin Drug Allergy Unknown unknown 07/31/2016 Yes ciprofloxacin [id number] Drug Allergy Unknown N/A 05/29/2017 Medications There is no data. Problems Date Dx Coded Attending Type Code Diagnosis Diagnosed By 05/29/2017 KENDRA TA, SHIRLENE Jackson Ot R10.13 [...] OF PREG, CHLDBR 06/02/2017 SHIRLENE GARDNER MD Ot Z90.89 ACQUIRED ABSENCE OF OTHER ORGANS 12/01/2017 IRISH ECKERT Ot F12.10 CANNABIS ABUSE, [...] Z87.19 PERSONAL HISTORY OF OTHER DISEASES OF 12/03/2017 IRISH ECKERT Ot Z87.59 PERSONAL HISTORY OF COMP OF PREG, CHLDBR 12/03/2017 IRISH ECKERT Ot Z88.1 ALLERGY STATUS TO OTHER ANTIBIOTIC AGENT 12/03/2017 IRISH ECKERT Ot Z90.89 ACQUIRED ABSENCE OF OTHER ORGANS 01/29/2018 JAYY POPE DO Ot F17.210 NICOTINE DEPENDENCE, CIGARETTES, UNCOMPL 01/29/2018 JAYY POPE DO Ot N61.1 ABSCESS OF THE BREAST AND NIPPLE 02/02/2018 JAYY POPE DO D Ot F17.210 NICOTINE DEPENDENCE, CIGARETTES, UNCOMPL 02/02/2018 LUPIS POPE DOTT D Ot N61.1 ABSCESS OF THE BREAST AND NIPPLE 03/20/2018 JOSE RUIZ MD Ot A41.9 SEPSIS, UNSPECIFIED ORGANISM 03/20/2018 JOSE RUIZ MD Ot F17.210 NICOTINE DEPENDENCE, CIGARETTES, UNCOMPL 03/20/2018 JOSE RUIZ MD Ot H93.92 UNSPECIFIED DISORDER OF LEFT EAR 03/20/2018 JOSE RUIZ MD Ot M41.9 SCOLIOSIS, UNSPECIFIED 03/20/2018 JOSE URIZ MD Ot M54.9 DORSALGIA, UNSPECIFIED 03/20/2018 JOSE [...] Ot M54.9 DORSALGIA, UNSPECIFIED 03/21/2018 JOSE RUIZ MD, Ot M79.10 MYALGIA, UNSPECIFIED SITE 03/21/2018 JOSE [...] OTHER DISEASES OF TH 05/26/2018 CHET CISNEROS MD, Ot Z87.440 PERSONAL HISTORY OF URINARY (TRACT) INFE 05/26/2018 CHET CISNEROS MD, Ot Z88.1 ALLERGY STATUS TO OTHER ANTIBIOTIC AGENT 06/12/2018 BERNOT, IRISH Ot S81.802A UNSPECIFIED OPEN WOUND, LEFT LOWER LEG, 06/12/2018 BERNOT, IRISH Ot X58.XXXA EXPOSURE TO OTHER SPECIFIED FACTORS, INI 06/12/2018 BERNOT, IRISH Ot S81.802A UNSPECIFIED OPEN WOUND, LEFT LOWER LEG, 06/12/2018 BERNOT, IRISH Ot W22.09XA STRIKING AGAINST OTHER STATIONARY OBJECT 06/13/2018 GISSELL TA, KIAN Haq Ot M79.9 SOFT TISSUE DISORDER, UNSPECIFIED 06/15/2018 BERNOT, IRISH Ot S81.802A UNSPECIFIED OPEN WOUND, LEFT LOWER LEG, 06/15/2018 BERNOT, IRISH Ot X58.XXXA EXPOSURE TO OTHER SPECIFIED FACTORS, INI 06/16/2018 KIAN BORRERO MD, Ot M79.9 SOFT TISSUE DISORDER, UNSPECIFIED 06/16/2018 KIAN BORRERO MD, Ot M79.9 SOFT TISSUE DISORDER, UNSPECIFIED 10/12/2018 BERNOT, IRISH Ot D64.9 ANEMIA, UNSPECIFIED 10/12/2018 BERNOT, IRISH Ot F12.10 CANNABIS ABUSE, UNCOMPLICATED 10/12/2018 BERNOT, IRISH Ot 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 STIMULANT ABUSE, UNCOMPLICATED 10/12/2018 BERNOT, IRISH Ot F17.210 NICOTINE DEPENDENCE, CIGARETTES, UNCOMPL 10/12/2018 BERNOT, IRISH Ot K59.00 CONSTIPATION, UNSPECIFIED 10/12/2018 BERNOT, IRISH Ot M41.9 SCOLIOSIS, UNSPECIFIED 10/12/2018 BERNOT, IRISH Ot R10.32 LEFT LOWER QUADRANT PAIN 10/12/2018 BERNOT IRISH Ot Z80.3 FAMILY HISTORY OF MALIGNANT NEOPLASM OF 10/12/2018 BERNOT, IRISH Ot Z87.19 PERSONAL HISTORY OF OTHER DISEASES OF 10/12/2018 BERNSANDRA ARMENTAIS Ot Z87.440 PERSONAL HISTORY OF URINARY (TRACT) INFE 10/12/2018 BERNOT IRISH Ot Z87.448 PERSONAL HISTORY OF OTHER DISEASES OF UR 10/12/2018 IRISH ECKERT Ot Z88.1 ALLERGY STATUS TO OTHER ANTIBIOTIC AGENT 10/12/2018 IRISH ECKERT Ot 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 ACQUIRED ABSENCE OF OTHER ORGANS 10/12/2018 IRISH ECKERT Ot Z98.51 TUBAL LIGATION STATUS 10/12/2018 IRISH ECKERT Ot Z98.890 OTHER SPECIFIED POSTPROCEDURAL STATES 10/18/2018 IRISH ECKERT Ot D64.9 ANEMIA, UNSPECIFIED 10/18/2018 IRISH ECKERT Ot F17.210 NICOTINE DEPENDENCE, CIGARETTES, UNCOMPL 10/18/2018 IRISH ECKERT Ot M41.9 SCOLIOSIS, UNSPECIFIED 10/18/2018 IRISH ECKERT Ot R21 RASH AND OTHER NONSPECIFIC SKIN ERUPTION 10/18/2018 IRISH ECKERT Ot S10.96XA INSECT BITE OF UNSPECIFIED PART OF NECK, 10/18/2018 IRISH ECKERT Ot S40.862A INSECT BITE (NONVENOMOUS) OF LEFT UPPER 10/18/2018 IRISH ECKERT Ot W57.XXXA BIT/STUNG BY NONVENOM INSECT OTH NONVE 10/18/2018 IRISH ECKERT Ot Z80.3 FAMILY HISTORY OF MALIGNANT NEOPLASM OF 10/18/2018 IRISH ECKERT Ot Z82.49 FAMILY HX OF ISCHEM HEART DIS AND OTH DI 10/18/2018 IRISH ECKERT Ot Z87.19 PERSONAL HISTORY OF OTHER DISEASES OF TH 10/18/2018 IRISH ECKERT Ot Z87.440 PERSONAL HISTORY OF URINARY (TRACT) INFE 10/18/2018 IRISH ECKERT Ot Z88.1 ALLERGY STATUS TO OTHER ANTIBIOTIC AGENT 10/18/2018 IRISH ECKERT Ot Z90.89 ACQUIRED ABSENCE OF OTHER ORGANS 10/18/2018 IRISH ECKERT Ot Z98.51 TUBAL LIGATION STATUS 10/18/2018 IRISH ECKERT Ot Z98.890 OTHER SPECIFIED POSTPROCEDURAL STATES 10/22/2018 IRISH ECKERT Ot D64.9 ANEMIA, UNSPECIFIED 10/22/2018 IRISH ECKERT Ot F17.210 NICOTINE DEPENDENCE, CIGARETTES, UNCOMPL 10/22/2018 IRISH ECKERT Ot M41.9 SCOLIOSIS, UNSPECIFIED 10/22/2018 IRISH ECKERT Ot R21 RASH AND OTHER NONSPECIFIC SKIN ERUPTION 10/22/2018 IRISH ECKERT Ot S10.96XA INSECT BITE OF UNSPECIFIED PART OF NECK, 10/22/2018 IRISH ECKERT Ot S40.862A INSECT BITE (NONVENOMOUS) OF LEFT UPPER 10/22/2018 IRISH ECKERT Ot W57.XXXA BIT/STUNG BY NONVENOM INSECT OTH NONVE 10/22/2018 IRISH ECKERT Ot Z80.3 FAMILY HISTORY OF MALIGNANT NEOPLASM OF 10/22/2018 IRISH ECKERT Ot Z82.49 FAMILY HX OF ISCHEM HEART DIS AND OTH DI 10/22/2018 IRISH ECKERT Ot Z87.19 PERSONAL HISTORY OF OTHER DISEASES OF TH 10/22/2018 IRISH ECKERT Ot Z87.440 PERSONAL HISTORY OF URINARY (TRACT) INFE 10/22/2018 IRISH ECKERT Ot Z88.1 ALLERGY STATUS TO OTHER ANTIBIOTIC AGENT 10/22/2018 IRISH ECKERT Ot Z90.89 ACQUIRED ABSENCE OF OTHER ORGANS 10/22/2018 IRISH ECKERT Ot Z98.51 TUBAL LIGATION STATUS 10/22/2018 IRISH ECKERT Ot Z98.890 OTHER SPECIFIED POSTPROCEDURAL STATES Procedures There is no data. Results Test Result Range URINALYSIS, ROUTINE - 12/27/14 21:55 UA LEUKOCYTE ESTERASE DIPSTICK 2+ NEGATIVE UA NITRITE DIPSTICK POSITIVE NEGATIVE UA PROTEIN DIPSTICK 1+ NEGATIVE UA GLUCOSE DIPSTICK NEGATIVE NEGATIVE UA KETONE DIPSTICK NEGATIVE NEGATIVE UA UROBILINOGEN DIPSTICK NORMAL NORMAL UA BILIRUBIN DIPSTICK NEGATIVE NEGATIVE UA BLOOD DIPSTICK TRACE NEGATIVE UA SPECIFIC GRAVITY 1.015 1.015-1.025 UR PH 6.0 5.0-7.0 Microbiology UA MICROSCOPIC - 12/27/14 21:55 UA EPITHELIAL CELLS 2+ epi/hpf 0 - 1+ UA RBC 0 rbc/hpf 0 - 3 UA VOLUME FOR EXAM 12.0 mL (12mL STD) UA WBC 20-50 wbc/hpf 0 - 5 WBC CLUMPS PRESENT NEGATIVE UR TEST - 12/27/14 21:55 UR TEST NEGATIVE NEGATIVE Microbiology UR TEST - 01/01/15 09:40 UR TEST NEGATIVE NEGATIVE Microbiology URINALYSIS, ROUTINE - 01/01/15 09:40 UA LEUKOCYTE ESTERASE DIPSTICK TRACE NEGATIVE UA NITRITE DIPSTICK NEGATIVE NEGATIVE UA PROTEIN DIPSTICK 2+ NEGATIVE UA GLUCOSE DIPSTICK NEGATIVE NEGATIVE UA KETONE DIPSTICK 2+ NEGATIVE UA UROBILINOGEN DIPSTICK 2+ NORMAL UA BILIRUBIN DIPSTICK 1+ NEGATIVE UA BLOOD DIPSTICK TRACE NEGATIVE UA SPECIFIC GRAVITY 1.015 1.015-1.025 UR PH 6.0 5.0-7.0 Microbiology UA MICROSCOPIC - 01/01/15 09:40 UA BACTERIA 2+ NEGATIVE UA EPITHELIAL CELLS 1+ epi/hpf 0 - 1+ UA MUCUS 1+ NEG TO 1+ UA RBC 0-3 rbc/hpf 0 - 3 UA VOLUME FOR EXAM 12.0 mL (12mL STD) UA WBC 10-20 wbc/hpf 0 - 5 CBC W/DIFF - 01/01/15 10:50 COMMENT REVIEWED GRANULOCYTE # 5.3 k/cumm 2.0-9.0 GRANULOCYTE % 80 % 50-75 LYMPHOCYTE # 0.9 k/cumm 1.0-4.0 LYMPHOCYTE % 14 % 20-30 MEAN CELL HGB 21.0 pg 27.0-33.0 MEAN CELL HGB CONCENTRATION 30.9 g/dL 32.0-37.0 MEAN CELL VOLUME 67.8 fl 80.0-100.0 MONOCYTE # 0.4 k/cumm 0.1-1.0 MONOCYTE % 6 % 4-6 OVALOCYTES NOTED RED BLOOD CELL 4.72 m/cumm 4.00-6.00 RED CELL DISTRIBUTION WIDTH 22.4 % 11.0-15.6 WHITE BLOOD CELL 6.6 k/cumm 5.0-10.0 HEMOGLOBIN 9.9 gm/dL 12.0-16.0 HEMATOCRIT 32.0 % 37.0-47.0 PLATELET COUNT 183 k/cumm 150-450 Microbiology METABOLIC PANEL, BASIC - 01/01/15 10:50 POTASSIUM 2.7 mmol/L 3.5-5.3 EST GFR (MDRD) > 60 mL/min > 59 ANION GAP 12 mmol/L 5-15 EST CrCl (CG) > 60 mL/min > 59 GLUCOSE 78 mg/dL 70-99 CALCIUM 9.5 mg/dL 8.5-10.1 BLOOD UREA NITROGEN 14 mg/dL 7-20 CREATININE 0.8 mg/dL 0.6-1.0 SODIUM 136 mmol/L 135-148 CHLORIDE 97 mmol/L 98-110 CARBON DIOXIDE 27 mmol/L 21-32 Microbiology URINALYSIS, ROUTINE - 01/04/15 10:10 UA LEUKOCYTE ESTERASE DIPSTICK NEGATIVE NEGATIVE UA NITRITE DIPSTICK NEGATIVE NEGATIVE UA PROTEIN DIPSTICK NEGATIVE NEGATIVE UA GLUCOSE DIPSTICK NEGATIVE NEGATIVE UA KETONE DIPSTICK 2+ NEGATIVE UA UROBILINOGEN DIPSTICK NORMAL NORMAL UA BILIRUBIN DIPSTICK 1+ NEGATIVE UA BLOOD DIPSTICK TRACE NEGATIVE UA SPECIFIC GRAVITY 1.015 1.015-1.025 UR PH 6.0 5.0-7.0 Microbiology UA MICROSCOPIC - 01/04/15 10:10 UA BACTERIA 2+ NEGATIVE UA EPITHELIAL CELLS 2+ epi/hpf 0 - 1+ UA MUCUS 3+ NEG TO 1+ UA RBC 0-3 rbc/hpf 0 - 3 UA VOLUME FOR EXAM 12.0 mL (12mL STD) UA WBC 0-1 wbc/hpf 0 - 5 UR TEST - 01/04/15 10:11 UR TEST NEGATIVE NEGATIVE Microbiology CBC W/DIFF - 01/04/15 11:32 BASOPHIL # 0.0 k/cumm 0.0-0.2 BASOPHIL % 1 % 0-1 EOSINOPHIL # 0.1 k/cumm 0.1-0.5 EOSINOPHIL % 1 % 2-4 GRANULOCYTE # 3.0 k/cumm 2.0-9.0 GRANULOCYTE % 57 % 50-75 LYMPHOCYTE # 1.8 k/cumm 1.0-4.0 LYMPHOCYTE % 34 % 20-30 MEAN CELL HGB 20.4 pg 27.0-33.0 MEAN CELL HGB CONCENTRATION 30.3 g/dL 32.0-37.0 MEAN CELL VOLUME 67.4 fl 80.0-100.0 MONOCYTE # 0.4 k/cumm 0.1-1.0 MONOCYTE % 7 % 4-6 OVALOCYTES NOTED RED BLOOD CELL 3.77 m/cumm 4.00-6.00 RED CELL DISTRIBUTION WIDTH 22.0 % 11.0-15.6 WHITE BLOOD CELL 5.3 k/cumm 5.0-10.0 HEMOGLOBIN 7.7 gm/dL 12.0-16.0 HEMATOCRIT 25.4 % 37.0-47.0 PLATELET COUNT 284 k/cumm 150-400 Microbiology TEST, SERUM - 01/04/15 11:32 TEST, SERUM NEGATIVE NEGATIVE Microbiology METABOLIC PANEL, COMPREHN - 01/04/15 11:32 POTASSIUM 3.5 mmol/L 3.5-5.3 EST GFR (MDRD) > 60 mL/min > 59 ANION GAP 8 mmol/L 5-15 EST CrCl (CG) > 60 mL/min > 59 GLUCOSE 79 mg/dL 70-99 CALCIUM 8.6 mg/dL 8.5-10.1 BLOOD UREA NITROGEN 9 mg/dL 7-20 CREATININE 0.6 mg/dL 0.6-1.0 SODIUM 139 mmol/L 135-148 CHLORIDE 101 mmol/L 98-110 AST/SGOT 38 Units/L 10-37 ALT/SGPT 67 Units/L < 66 CARBON DIOXIDE 30 mmol/L 21-32 TOTAL PROTEIN 6.7 gm/dL 6.4-8.2 ALBUMIN 2.9 gm/dL 3.4-5.0 BILI TOTAL 0.3 mg/dL 0.0-1.0 ALKALINE PHOSPHATASE TOTAL 149 IU/L 45-117 Microbiology MAGNESIUM - 01/04/15 11:32 MAGNESIUM 1.8 mg/dL 1.8-2.4 LIPASE - 01/04/15 11:32 LIPASE 123 Units/L 73-393 CHEM/HEM PROFILE-BEDSIDE - 01/04/15 12:02 POTASSIUM 3.4 mmol/L 3.5-5.3 METHOD Bedside ANION GAP 17 mmol/L 10-20 METHOD Bedside GLUCOSE 77 mg/dL 70-99 BLOOD UREA NITROGEN 5 mg/dL 7-20 CREATININE 0.6 mg/dL 0.6-1.0 HEMOGLOBIN 8.5 gm/dL 12.0-16.0 HEMATOCRIT 25.0 % 37.0-47.0 SODIUM 138 mmol/L 135-148 CHLORIDE 100 mmol/L 98-110 CARBON DIOXIDE 25 mmol/L 21-32 CALCIUM IONIZED 4.7 mg/dL 4.5-5.3 Microbiology URINALYSIS, NO REFLEX CULTURE - 12/28/15 19:43 UA LEUKOCYTE ESTERASE DIPSTICK 2+ NEGATIVE UA NITRITE DIPSTICK NEGATIVE NEGATIVE UA PROTEIN DIPSTICK 1+ NEGATIVE UA GLUCOSE DIPSTICK NEGATIVE NEGATIVE UA KETONE DIPSTICK NEGATIVE NEGATIVE UA UROBILINOGEN DIPSTICK NORMAL NORMAL UA BILIRUBIN DIPSTICK NEGATIVE NEGATIVE UA BLOOD DIPSTICK 1+ NEGATIVE UA SPECIFIC GRAVITY 1.010 1.015-1.025 UR PH 8.0 5.0-7.0 UA MICROSCOPIC - 12/28/15 19:43 UA BACTERIA 2+ NEGATIVE UA EPITHELIAL CELLS 1+ epi/hpf 0 - 1+ UA MUCUS 2+ NEG TO 1+ UA RBC 0-3 rbc/hpf 0 - 3 UA VOLUME FOR EXAM 12.0 mL (12mL STD) UA WBC 5-10 wbc/hpf 0 - 5 CBC W/DIFF - 09/06/16 13:55 BASOPHIL # 0.0 k/cumm 0.0-0.2 BASOPHIL % 1 % 0-1 EOSINOPHIL # 0.2 k/cumm 0.1-0.5 EOSINOPHIL % 4 % 2-4 GRANULOCYTE # 4.1 k/cumm 2.0-9.0 GRANULOCYTE % 60 % 50-75 LYMPHOCYTE # 1.9 k/cumm 1.0-4.0 LYMPHOCYTE % 27 % 20-30 MEAN CELL HGB 30.0 pg 27.0-33.0 MEAN CELL HGB CONCENTRATION 33.8 g/dL 32.0-37.0 MEAN CELL VOLUME 88.8 fl 80.0-100.0 MONOCYTE # 0.6 k/cumm 0.1-1.0 MONOCYTE % 9 % 4-6 RED BLOOD CELL 3.57 m/cumm 4.00-6.00 RED CELL DISTRIBUTION WIDTH 13.5 % 11.0-15.6 WHITE BLOOD CELL 6.9 k/cumm 5.0-10.0 HEMOGLOBIN 10.7 gm/dL 12.0-16.0 HEMATOCRIT 31.7 % 37.0-47.0 PLATELET COUNT 275 k/cumm 150-450 TEST, SERUM - 09/06/16 13:55 TEST, SERUM NEGATIVE NEGATIVE PROTHROMBIN TIME WITH INR - 09/06/16 13:55 INTERNATIONAL NORMAL RATIO 1.1 0.9-1.1 PROTHROMBIN TIME 12.3 sec 10.0-12.9 PARTIAL THROMBOPLASTIN TIME - 09/06/16 13:55 PARTIAL THROMBOPLASTIN TIME 33 sec 25-37 METABOLIC PANEL, COMPREHN - 09/06/16 13:55 POTASSIUM 3.1 mmol/L 3.5-5.3 EST GFR (MDRD) > 60 mL/min > 59 ANION GAP 11 mmol/L 5-15 EST CrCl (CG) > 60 mL/min > 59 GLUCOSE 82 mg/dL 70-99 CALCIUM 9.0 mg/dL 8.5-10.1 BLOOD UREA NITROGEN 16 mg/dL 7-20 CREATININE 0.9 mg/dL 0.6-1.0 SODIUM 144 mmol/L 135-148 CHLORIDE 103 mmol/L 98-110 AST/SGOT 14 Units/L 10-37 ALT/SGPT 9 Units/L < 66 CARBON DIOXIDE 30 mmol/L 21-32 TOTAL PROTEIN 6.8 gm/dL 6.4-8.2 ALBUMIN 3.6 gm/dL 3.4-5.0 BILI TOTAL 0.3 mg/dL 0.0-1.0 ALKALINE PHOSPHATASE TOTAL 66 IU/L 45-117 THYROID STIM HORMONE (TSH) - 09/06/16 13:55 THYROID STIM HORMONE (TSH) 2.48 uIU/mL 0.34-4.82 Complete urinalysis with reflex to culture - 05/29/17 02:40 Urine color determination YELLOW NRG Urine clarity determination SLIGHTLY CLOUDY NRG Urine pH measurement by test strip 6.5 5-9 Specific gravity of urine by test strip 1.020 1.016-1.022 Urine protein assay by test strip, semi-quantitative NEGATIVE NEGATIVE Urine glucose detection by automated test strip NEGATIVE NEGATIVE Erythrocytes detection in urine sediment by light microscopy 1+ NEGATIVE Urine ketones detection by automated test strip NEGATIVE NEGATIVE Urine nitrite detection by test strip NEGATIVE NEGATIVE Urine total bilirubin detection by test strip NEGATIVE NEGATIVE Urine urobilinogen measurement by automated test strip (mass/volume) NORMAL NORMAL Urine leukocyte esterase detection by dipstick NEGATIVE NEGATIVE Automated urine sediment erythrocyte count by microscopy (number/high power field) [HPF] NRG Automated urine sediment leukocyte count by microscopy (number/high power field) NONE NRG Bacteria detection in urine sediment by light microscopy TRACE NRG Squamous epithelial cells detection in urine sediment by light microscopy 5-10 NRG Crystals detection in urine sediment by light microscopy PRESENT NRG Casts detection in urine sediment by light microscopy NONE NRG Mucus detection in urine sediment by light microscopy SMALL NRG Complete urinalysis with reflex to culture NO NRG Amorphous sediment detection in urine sediment by light microscopy FEW RAMIRO URATES NRG Urine drug screening test - 05/29/17 02:40 Urine phencyclidine detection by screening method NEGATIVE NEGATIVE Urine benzodiazepines detection by screening method NEGATIVE NEGATIVE Urine cocaine detection NEGATIVE NEGATIVE Urine amphetamines detection by screening method NEGATIVE NEGATIVE Urine methamphetamine detection by screening method NEGATIVE NEGATIVE Urine cannabinoids detection by screening method NEGATIVE NEGATIVE Urine opiates detection by screening method NEGATIVE NEGATIVE Urine barbiturates detection NEGATIVE NEGATIVE Screening urine tricyclic antidepressants detection NEGATIVE NEGATIVE Urine methadone detection by screening method NEGATIVE NEGATIVE Urine oxycodone detection NEGATIVE NEGATIVE Urine propoxyphene detection NEGATIVE NEGATIVE Complete blood count (CBC) with automated white blood cell (WBC) differential - 05/29/17 02:49 Blood leukocytes automated count (number/volume) 5.5 10*3/uL 4.3-11.0 Blood erythrocytes automated count (number/volume) 4.20 10*6/uL 4.35-5.85 Venous blood hemoglobin measurement (mass/volume) 9.7 g/dL 11.5-16.0 Blood hematocrit (volume fraction) 31 % 35-52 Automated erythrocyte mean corpuscular volume 74 [foz_us] 80-99 Automated erythrocyte mean corpuscular hemoglobin (mass per erythrocyte) 23 pg 25-34 Automated erythrocyte mean corpuscular hemoglobin concentration measurement (mass/volume) 31 g/dL 32-36 Automated erythrocyte distribution width ratio 21.6 % 10.0- 14.5 Automated blood platelet count (count/volume) 181 10*3/uL 130-400 Automated blood platelet mean volume measurement 11.2 [foz_us] 7.4-10.4 Automated blood neutrophils/100 leukocytes 51 % 42-75 Automated blood lymphocytes/100 leukocytes 31 % 12-44 Blood monocytes/100 leukocytes 11 % 0-12 Automated blood eosinophils/100 leukocytes 6 % 0-10 Automated blood basophils/100 leukocytes 1 % 0-10 Blood neutrophils automated count (number/volume) 2.8 10*3 1.8-7.8 Blood lymphocytes automated count (number/volume) 1.7 10*3 1.0-4.0 Blood monocytes automated count (number/volume) 0.6 10*3 0.0- 1.0 Automated eosinophil count 0.3 10*3/uL 0.0-0.3 Automated blood basophil count (count/volume) 0.0 10*3/uL 0.0-0.1 Serum or plasma choriogonadotropin ( test) detection - 05/29/17 02:49 Serum or plasma choriogonadotropin ( test) detection NEGATIVE NEGATIVE Comprehensive metabolic panel - 05/29/17 02:49 Serum or plasma sodium measurement (moles/volume) 139 mmol/L 135-145 Serum or plasma potassium measurement (moles/volume) 3.5 mmol/L 3.6-5.0 Serum or plasma chloride measurement (moles/volume) 106 mmol/L 98-107 Carbon dioxide 23 mmol/L 21-32 Serum or plasma anion gap determination (moles/volume) 10 mmol/L 5-14 Serum or plasma urea nitrogen measurement (mass/volume) 18 mg/dL 7-18 Serum or plasma creatinine measurement (mass/volume) 0.75 mg/dL 0.60-1.30 Serum or plasma urea nitrogen/creatinine mass ratio 24 NRG Serum or plasma creatinine measurement with calculation of estimated glomerular filtration rate > NRG Serum or plasma glucose measurement (mass/volume) 90 mg/dL 70-105 Serum or plasma calcium measurement (mass/volume) 9.0 mg/dL 8.5-10.1 Serum or plasma total bilirubin measurement (mass/volume) 0.3 mg/dL 0.1-1.0 Serum or plasma alkaline phosphatase measurement (enzymatic activity/volume) 67 U/L 40-136 Serum or plasma aspartate aminotransferase measurement (enzymatic activity/volume) 22 U/L 5-34 Serum or plasma alanine aminotransferase measurement (enzymatic activity/volume) 22 U/L 0-55 Serum or plasma protein measurement (mass/volume) 7.2 g/dL 6.4-8.2 Serum or plasma albumin measurement (mass/volume) 4.2 g/dL 3.2-4.5 Lipase - 05/29/17 02:49 Lipase 42 U/L 8-78 Serum or plasma ethanol measurement (mass/volume) - 05/29/17 02:49 Serum or plasma ethanol measurement (mass/volume) < mg/dL <10 Complete blood count (CBC) with automated white blood cell (WBC) differential - 01/29/18 12:49 Blood leukocytes automated count (number/volume) 10.1 10*3/uL 4.3-11.0 Blood erythrocytes automated count (number/volume) 3.96 10*6/uL 4.35-5.85 Venous blood hemoglobin measurement (mass/volume) 10.6 g/dL 11.5-16.0 Blood hematocrit (volume fraction) 32 % 35-52 Automated erythrocyte mean corpuscular volume 80 [foz_us] 80-99 Automated erythrocyte mean corpuscular hemoglobin (mass per erythrocyte) 27 pg 25-34 Automated erythrocyte mean corpuscular hemoglobin concentration measurement (mass/volume) 33 g/dL 32-36 Automated erythrocyte distribution width ratio 22.0 % 10.0- 14.5 Automated blood platelet count (count/volume) 313 10*3/uL 130-400 Automated blood platelet mean volume measurement 10.7 [foz_us] 7.4-10.4 Automated blood neutrophils/100 leukocytes 76 % 42-75 Automated blood lymphocytes/100 leukocytes 16 % 12-44 Blood monocytes/100 leukocytes 6 % 0-12 Automated blood eosinophils/100 leukocytes 1 % 0-10 Automated blood basophils/100 leukocytes 0 % 0-10 Blood neutrophils automated count (number/volume) 7.7 10*3 1.8-7.8 Blood lymphocytes automated count (number/volume) 1.6 10*3 1.0-4.0 Blood monocytes automated count (number/volume) 0.6 10*3 0.0- 1.0 Automated eosinophil count 0.1 10*3/uL 0.0-0.3 Automated blood basophil count (count/volume) 0.0 10*3/uL 0.0-0.1 Whole blood basic metabolic panel - 01/29/18 12:49 Serum or plasma sodium measurement (moles/volume) 140 mmol/L 135-145 Serum or plasma potassium measurement (moles/volume) 3.8 mmol/L 3.6-5.0 Serum or plasma chloride measurement (moles/volume) 107 mmol/L 98-107 Carbon dioxide 25 mmol/L 21-32 Serum or plasma anion gap determination (moles/volume) 8 mmol/L 5-14 Serum or plasma urea nitrogen measurement (mass/volume) 15 mg/dL 7-18 Serum or plasma creatinine measurement (mass/volume) 0.72 mg/dL 0.60-1.30 Serum or plasma urea nitrogen/creatinine mass ratio 21 NRG Serum or plasma creatinine measurement with calculation of estimated glomerular filtration rate > NRG Serum or plasma glucose measurement (mass/volume) 82 mg/dL 70-105 Serum or plasma calcium measurement (mass/volume) 9.6 mg/dL 8.5-10.1 Serum or plasma choriogonadotropin ( test) detection - 01/29/18 12:49 Serum or plasma choriogonadotropin ( test) detection NEGATIVE NEGATIVE Bacterial blood culture - 01/29/18 12:49 Bacterial blood culture NG NRG Methicillin resistant Staphylococcus aureus (MRSA) screening culture - 01/29/18 13:25 MRSA SCREEN RESULT MRSA ISOLATED NRG Bacterial blood culture - 01/29/18 13:48 Bacterial blood culture NG NRG Urine drug screening test - 01/29/18 14:20 Urine phencyclidine detection by screening method NEGATIVE NEGATIVE Urine benzodiazepines detection by screening method NEGATIVE NEGATIVE Urine cocaine detection NEGATIVE NEGATIVE Urine amphetamines detection by screening method POSITIVE NEGATIVE Urine methamphetamine detection by screening method NEGATIVE NEGATIVE Urine cannabinoids detection by screening method POSITIVE NEGATIVE Urine opiates detection by screening method NEGATIVE NEGATIVE Urine barbiturates detection NEGATIVE NEGATIVE Screening urine tricyclic antidepressants detection NEGATIVE NEGATIVE Urine methadone detection by screening method NEGATIVE NEGATIVE Urine oxycodone detection NEGATIVE NEGATIVE Urine propoxyphene detection NEGATIVE NEGATIVE Bacteria identification in isolate by anaerobe culture - 01/29/18 16:37 Bacteria identification in isolate by anaerobe culture NOANA NRG Gram stain microscopy - 01/29/18 16:37 Gram stain microscopy REPORTED 01-30-2018,06. NRG Bacteria identification in wound by culture - 01/29/18 16:37 Bacteria identification in wound by culture SEE REPORT NRG FREE TEXT EXTERNAL METHICILLIN-RESISTANT STAPH AUREUS NRG QUANTITY OF GROWTH . NRG RML Sensitivity Panel - 01/29/18 16:37 Oxacillin susceptibility test by minimum inhibitory concentration R NRG Clindamycin susceptibility test by minimum inhibitory concentration <= NRG Erythromycin susceptibility test by minimum inhibitory concentration > NRG Trimethoprim/sulfamethoxazole susceptibility test by minimum inhibitoryconcentration S NRG Vancomycin susceptibility test by minimum inhibitory concentration 1 NRG Levofloxacin susceptibility test by minimum inhibitory concentration 4 NRG Rifampin susceptibility test by minimum inhibitory concentration <= NRG Cefazolin susceptibility test by minimum inhibitory concentration > NRG Linezolid susceptibility test by minimum inhibitory concentration 2 NRG Penicillin G susceptibility test by minimum inhibitory concentration > NRG Moxifloxacin susceptibility test by minimum inhibitory concentration S NRG Minocycline susc SHAYNA <= NRG Complete urinalysis with reflex to culture - 03/19/18 15:50 Urine color determination YELLOW NRG Urine clarity determination VERY CLOUDY NRG Urine pH measurement by test strip 6.5 5-9 Specific gravity of urine by test strip 1.010 1.016-1.022 Urine protein assay by test strip, semi-quantitative 4+ NEGATIVE Urine glucose detection by automated test strip NEGATIVE NEGATIVE Erythrocytes detection in urine sediment by light microscopy 4+ NEGATIVE Urine ketones detection by automated test strip 1+ NEGATIVE Urine nitrite detection by test strip POSITIVE NEGATIVE Urine total bilirubin detection by test strip NEGATIVE NEGATIVE Urine urobilinogen measurement by automated test strip (mass/volume) 4 mg/dL NORMAL Urine leukocyte esterase detection by dipstick 3+ NEGATIVE Automated urine sediment erythrocyte count by microscopy (number/high power field) [HPF] NRG Automated urine sediment leukocyte count by microscopy (number/high power field) TNTC NRG Bacteria detection in urine sediment by light microscopy LARGE NRG Squamous epithelial cells detection in urine sediment by light microscopy 10-25 NRG Crystals detection in urine sediment by light microscopy NONE NRG Casts detection in urine sediment by light microscopy NONE NRG Mucus detection in urine sediment by light microscopy NEGATIVE NRG Complete urinalysis with reflex to culture YES NRG Bacterial urine culture - 03/19/18 15:50 Bacterial urine culture [id number] NRG COLONY COUNT >100,000/ML NRG FTX;REPORTABLE SUSCEPTIBILITY REPORTED 03-21-2018,1005 NRG RML Sensitivity Panel - 03/19/18 15:50 Gentamicin susceptibility test by minimum inhibitory concentration <= NRG Trimethoprim/sulfamethoxazole susceptibility test by minimum inhibitoryconcentration > NRG Levofloxacin susceptibility test by minimum inhibitory concentration <= NRG Ampicillin susceptibility test by minimum inhibitory concentration > NRG Cefazolin susceptibility test by minimum inhibitory concentration 2 NRG Ceftriaxone susceptibility test by minimum inhibitory concentration <= NRG Ciprofloxacin susceptibility test by minimum inhibitory concentration <= NRG Meropenem susceptibility test by minimum inhibitory concentration <= NRG Nitrofurantoin susceptibility test by minimum inhibitory concentration <= NRG Amoxicillin and clavulanate potassium susc SHAYNA = NRG Complete blood count (CBC) with automated white blood cell (WBC) differential - 03/19/18 16:10 Blood leukocytes automated count (number/volume) 18.7 10*3/uL 4.3-11.0 Blood erythrocytes automated count (number/volume) 4.35 10*6/uL 4.35-5.85 Venous blood hemoglobin measurement (mass/volume) 10.7 g/dL 11.5-16.0 Blood hematocrit (volume fraction) 33 % 35-52 Automated erythrocyte mean corpuscular volume 75 [foz_us] 80-99 Automated erythrocyte mean corpuscular hemoglobin (mass per erythrocyte) 25 pg 25-34 Automated erythrocyte mean corpuscular hemoglobin concentration measurement (mass/volume) 33 g/dL 32-36 Automated erythrocyte distribution width ratio 21.0 % 10.0- 14.5 Automated blood platelet count (count/volume) 348 10*3/uL 130-400 Automated blood platelet mean volume measurement 11.0 [foz_us] 7.4-10.4 Automated blood neutrophils/100 leukocytes 86 % 42-75 Automated blood lymphocytes/100 leukocytes 6 % 12-44 Blood monocytes/100 leukocytes 8 % 0-12 Automated blood eosinophils/100 leukocytes 0 % 0-10 Automated blood basophils/100 leukocytes 0 % 0-10 Blood neutrophils automated count (number/volume) 16.0 10*3 1.8-7.8 Blood lymphocytes automated count (number/volume) 1.2 10*3 1.0-4.0 Blood monocytes automated count (number/volume) 1.5 10*3 0.0- 1.0 Automated eosinophil count 0.0 10*3/uL 0.0-0.3 Automated blood basophil count (count/volume) 0.0 10*3/uL 0.0-0.1 Blood lactic acid measurement (moles/volume) - 03/19/18 16:10 Blood lactic acid measurement (moles/volume) 2.13 mmol/L 0.50- 2.00 Bacterial blood culture - 03/19/18 16:10 Bacterial blood culture NG [facility] Bacterial blood culture - 03/19/18 16:20 Bacterial blood culture [facility] Influenza virus A and B antigen detection - 03/19/18 16:30 FLU RESULT NEGATIVE FOR INFLUENZA A AND B ANTIGENS BY IA [facility] Serum or plasma lactate measurement (moles/volume) - 03/19/18 18:13 Serum or plasma lactate measurement (moles/volume) 0.83 mmol/L 0.50-2.00 Complete blood count (CBC) with automated white blood cell (WBC) differential - 03/20/18 06:10 Blood leukocytes automated count (number/volume) 12.7 10*3/uL 4.3-11.0 Blood erythrocytes automated count (number/volume) 3.41 10*6/uL 4.35-5.85 Venous blood hemoglobin measurement (mass/volume) 8.3 g/dL 11.5-16.0 Blood hematocrit (volume fraction) 26 % 35-52 Automated erythrocyte mean corpuscular volume 77 [foz_us] 80-99 Automated erythrocyte mean corpuscular hemoglobin (mass per erythrocyte) 24 pg 25-34 Automated erythrocyte mean corpuscular hemoglobin concentration measurement (mass/volume) 31 g/dL 32-36 Automated erythrocyte distribution width ratio 19.9 % 10.0- 14.5 Automated blood platelet count (count/volume) 222 10*3/uL 130-400 Automated blood platelet mean volume measurement 11.0 [foz_us] 7.4-10.4 Automated blood neutrophils/100 leukocytes 87 % 42-75 Automated blood lymphocytes/100 leukocytes 5 % 12-44 Blood monocytes/100 leukocytes 7 % 0-12 Automated blood eosinophils/100 leukocytes 0 % 0-10 Automated blood basophils/100 leukocytes 0 % 0-10 Blood neutrophils automated count (number/volume) 11.1 10*3 1.8-7.8 Blood lymphocytes automated count (number/volume) 0.7 10*3 1.0-4.0 Blood monocytes automated count (number/volume) 0.9 10*3 0.0- 1.0 Automated eosinophil count 0.0 10*3/uL 0.0-0.3 Automated blood basophil count (count/volume) 0.0 10*3/uL 0.0-0.1 Comprehensive metabolic panel - 03/20/18 06:10 Serum or plasma sodium measurement (moles/volume) 137 mmol/L 135-145 Serum or plasma potassium measurement (moles/volume) 2.9 mmol/L 3.6-5.0 Serum or plasma chloride measurement (moles/volume) 113 mmol/L 98-107 Carbon dioxide 18 mmol/L 21-32 Serum or plasma anion gap determination (moles/volume) 6 mmol/L 5-14 Serum or plasma urea nitrogen measurement (mass/volume) 12 mg/dL 7-18 Serum or plasma creatinine measurement (mass/volume) 0.68 mg/dL 0.60-1.30 Serum or plasma urea nitrogen/creatinine mass ratio 18 NRG Serum or plasma creatinine measurement with calculation of estimated glomerular filtration rate > NRG Serum or plasma glucose measurement (mass/volume) 108 mg/dL 70-105 Serum or plasma calcium measurement (mass/volume) 7.8 mg/dL 8.5-10.1 Serum or plasma total bilirubin measurement (mass/volume) 0.5 mg/dL 0.1-1.0 Serum or plasma alkaline phosphatase measurement (enzymatic activity/volume) 62 U/L 40-136 Serum or plasma aspartate aminotransferase measurement (enzymatic activity/volume) 15 U/L 5-34 Serum or plasma alanine aminotransferase measurement (enzymatic activity/volume) 12 U/L 0-55 Serum or plasma protein measurement (mass/volume) 4.7 g/dL 6.4-8.2 Serum or plasma albumin measurement (mass/volume) 2.8 g/dL 3.2-4.5 CALCIUM CORRECTED 8.8 mg/dL 8.5-10.1 Magnesium - 03/20/18 06:10 Magnesium 1.5 mg/dL 1.8-2.4 Complete urinalysis with reflex to culture - 05/24/18 15:18 Urine color determination YELLOW NRG Urine clarity determination SLIGHTLY CLOUDY NRG Urine pH measurement by test strip 6 5-9 Specific gravity of urine by test strip 1.010 1.016-1.022 Urine protein assay by test strip, semi-quantitative 3+ NEGATIVE Urine glucose detection by automated test strip NEGATIVE NEGATIVE Erythrocytes detection in urine sediment by light microscopy 5+ NEGATIVE Urine ketones detection by automated test strip NEGATIVE NEGATIVE Urine nitrite detection by test strip NEGATIVE NEGATIVE Urine total bilirubin detection by test strip NEGATIVE NEGATIVE Urine urobilinogen measurement by automated test strip (mass/volume) NORMAL NORMAL Urine leukocyte esterase detection by dipstick 3+ NEGATIVE Automated urine sediment erythrocyte count by microscopy (number/high power field) [HPF] NRG Automated urine sediment leukocyte count by microscopy (number/high power field) [HPF] NRG Bacteria detection in urine sediment by light microscopy NEGATIVE NRG Squamous epithelial cells detection in urine sediment by light microscopy 5-10 NRG Crystals detection in urine sediment by light microscopy NONE NRG Casts detection in urine sediment by light microscopy NONE NRG Mucus detection in urine sediment by light microscopy NEGATIVE NRG Complete urinalysis with reflex to culture YES NRG Bacterial urine culture - 05/24/18 15:18 Bacterial urine culture [id number] NRG COLONY COUNT >100,000/ML NR FREE TEXT ENTRY 2 RML SENT SENSITIVITY 05/26 08:05 NRG FREE TEXT ENTRY 3 RML SENT ID REPORT 05/25 16:05 NR RML Sensitivity Panel - 05/24/18 15:18 Gentamicin susceptibility test by minimum inhibitory concentration < NRG Trimethoprim/sulfamethoxazole susceptibility test by minimum inhibitoryconcentration > NRG Levofloxacin susceptibility test by minimum inhibitory concentration <= NRG Ampicillin susceptibility test by minimum inhibitory concentration > NRG Cefazolin susceptibility test by minimum inhibitory concentration 2 NRG Ceftriaxone susceptibility test by minimum inhibitory concentration <= NRG Ciprofloxacin susceptibility test by minimum inhibitory concentration <= NRG Meropenem susceptibility test by minimum inhibitory concentration <= NRG Nitrofurantoin susceptibility test by minimum inhibitory concentration <= NRG Amoxicillin and clavulanate potassium susc SHAYNA = NRG Complete blood count (CBC) with automated white blood cell (WBC) differential - 05/24/18 15:25 Blood leukocytes automated count (number/volume) 15.1 10*3/uL 4.3-11.0 Blood erythrocytes automated count (number/volume) 3.78 10*6/uL 4.35-5.85 Venous blood hemoglobin measurement (mass/volume) 8.2 g/dL 11.5-16.0 Blood hematocrit (volume fraction) 27 % 35-52 Automated erythrocyte mean corpuscular volume 71 [foz_us] 80-99 Automated erythrocyte mean corpuscular hemoglobin (mass per erythrocyte) 22 pg 25-34 Automated erythrocyte mean corpuscular hemoglobin concentration measurement (mass/volume) 31 g/dL 32-36 Automated erythrocyte distribution width ratio 20.3 % 10.0- 14.5 Automated blood platelet count (count/volume) 219 10*3/uL 130-400 Automated blood platelet mean volume measurement 10.6 [foz_us] 7.4-10.4 Automated blood neutrophils/100 leukocytes 80 % 42-75 Automated blood lymphocytes/100 leukocytes 8 % 12-44 Blood monocytes/100 leukocytes 12 % 0-12 Automated blood eosinophils/100 leukocytes 0 % 0-10 Automated blood basophils/100 leukocytes 0 % 0-10 Blood neutrophils automated count (number/volume) 12.2 10*3 1.8-7.8 Blood lymphocytes automated count (number/volume) 1.2 10*3 1.0-4.0 Blood monocytes automated count (number/volume) 1.7 10*3 0.0- 1.0 Automated eosinophil count 0.0 10*3/uL 0.0-0.3 Automated blood basophil count (count/volume) 0.0 10*3/uL 0.0-0.1 Comprehensive metabolic panel - 05/24/18 15:25 Serum or plasma sodium measurement (moles/volume) 136 mmol/L 135-145 Serum or plasma potassium measurement (moles/volume) 3.5 mmol/L 3.6-5.0 Serum or plasma chloride measurement (moles/volume) 104 mmol/L 98-107 Carbon dioxide 18 mmol/L 21-32 Serum or plasma anion gap determination (moles/volume) 14 mmol/L 5-14 Serum or plasma urea nitrogen measurement (mass/volume) 20 mg/dL 7-18 Serum or plasma creatinine measurement (mass/volume) 0.85 mg/dL 0.60-1.30 Serum or plasma urea nitrogen/creatinine mass ratio 24 NRG Serum or plasma creatinine measurement with calculation of estimated glomerular filtration rate > NRG Serum or plasma glucose measurement (mass/volume) 93 mg/dL 70-105 Serum or plasma calcium measurement (mass/volume) 9.1 mg/dL 8.5-10.1 Serum or plasma total bilirubin measurement (mass/volume) 0.6 mg/dL 0.1-1.0 Serum or plasma alkaline phosphatase measurement (enzymatic activity/volume) 69 U/L 40-136 Serum or plasma aspartate aminotransferase measurement (enzymatic activity/volume) 21 U/L 5-34 Serum or plasma alanine aminotransferase measurement (enzymatic activity/volume) 24 U/L 0-55 Serum or plasma protein measurement (mass/volume) 7.2 g/dL 6.4-8.2 Serum or plasma albumin measurement (mass/volume) 4.2 g/dL 3.2-4.5 CALCIUM CORRECTED 8.9 mg/dL 8.5-10.1 Blood manual differential performed detection - 05/24/18 15:25 Blood monocytes/100 leukocytes 6 % NRG Manual blood segmented neutrophils/100 leukocytes 85 % NRG Blood band neutrophils/100 leukocytes 0 % NRG Manual blood lymphocytes/100 leukocytes 9 % NRG Manual eosinophils/100 leukocytes in nose 0 % NRG Manual blood basophils/100 leukocytes 0 % NRG Blood anisocytosis detection by light microscopy MODERATE NRG Blood hypochromia detection by light microscopy MARKED NRG Blood microcytes detection by light microscopy MODERATE NRG Serum or plasma choriogonadotropin ( test) detection - 05/24/18 15:25 Serum or plasma choriogonadotropin ( test) detection NEGATIVE NEGATIVE Blood lactic acid measurement (moles/volume) - 05/24/18 18:08 Blood lactic acid measurement (moles/volume) 1.03 mmol/L 0.50- 2.00 Bacterial blood culture - 05/24/18 18:08 Bacterial blood culture NG NRG Bacterial blood culture - 05/24/18 19:00 Bacterial blood culture NG NRG Microscopic examination by wet preparation - 05/24/18 19:53 WET PREP RESULTS 05/24 20:14 BY Henrietta NEWTON Neisseria gonorrhoeae DNA detection by probe and signal amplification method - 05/24/18 19:53 Gonorrhea amp DNA-urine Not Detected Not Detected Chlamydia trachomatis DNA detection by probe and signal amplification method - 05/24/18 19:53 Chlamydia trachomatis DNA detection by probe and target amplification method Not Detected Not Detected Complete blood count (CBC) with automated white blood cell (WBC) differential - 05/25/18 05:33 Blood leukocytes automated count (number/volume) 9.0 10*3/uL 4.3-11.0 Blood erythrocytes automated count (number/volume) 3.20 10*6/uL 4.35-5.85 Venous blood hemoglobin measurement (mass/volume) 7.0 g/dL 11.5-16.0 Blood hematocrit (volume fraction) 23 % 35-52 Automated erythrocyte mean corpuscular volume 73 [foz_us] 80-99 Automated erythrocyte mean corpuscular hemoglobin (mass per erythrocyte) 22 pg 25-34 Automated erythrocyte mean corpuscular hemoglobin concentration measurement (mass/volume) 30 g/dL 32-36 Automated erythrocyte distribution width ratio 20.6 % 10.0- 14.5 Automated blood platelet count (count/volume) 215 10*3/uL 130-400 Automated blood platelet mean volume measurement 11.1 [foz_us] 7.4-10.4 Automated blood neutrophils/100 leukocytes 78 % 42-75 Automated blood lymphocytes/100 leukocytes 11 % 12-44 Blood monocytes/100 leukocytes 11 % 0-12 Automated blood eosinophils/100 leukocytes 1 % 0-10 Automated blood basophils/100 leukocytes 0 % 0-10 Blood neutrophils automated count (number/volume) 7.0 10*3 1.8-7.8 Blood lymphocytes automated count (number/volume) 1.0 10*3 1.0-4.0 Blood monocytes automated count (number/volume) 1.0 10*3 0.0- 1.0 Automated eosinophil count 0.1 10*3/uL 0.0-0.3 Automated blood basophil count (count/volume) 0.0 10*3/uL 0.0-0.1 Serum iron and total iron binding capacity panel - 05/25/18 05:33 Serum or plasma iron measurement (mass/volume) < % 35-180 Total iron binding capacity and transferrin saturation measurement < % 15-50 Iron binding capacity [mass/volume] in serum or plasma < % 280-380 UIBC (unsaturated iron binding capacity) 370 % 55-450 Serum or plasma ferritin measurement (mass/volume) 63.2 % 20.0-177.0 Whole blood basic metabolic panel - 05/25/18 05:53 Serum or plasma sodium measurement (moles/volume) 139 mmol/L 135-145 Serum or plasma potassium measurement (moles/volume) 3.6 mmol/L 3.6-5.0 Serum or plasma chloride measurement (moles/volume) 109 mmol/L 98-107 Carbon dioxide 21 mmol/L 21-32 Serum or plasma anion gap determination (moles/volume) 9 mmol/L 5-14 Serum or plasma urea nitrogen measurement (mass/volume) 18 mg/dL 7-18 Serum or plasma creatinine measurement (mass/volume) 0.75 mg/dL 0.60-1.30 Serum or plasma urea nitrogen/creatinine mass ratio 24 NRG Serum or plasma creatinine measurement with calculation of estimated glomerular filtration rate > NRG Serum or plasma glucose measurement (mass/volume) 92 mg/dL 70-105 Serum or plasma calcium measurement (mass/volume) 8.3 mg/dL 8.5-10.1 Complete urinalysis with reflex to culture - 10/07/18 19:10 Urine color determination YELLOW NRG Urine clarity determination CLEAR NRG Urine pH measurement by test strip 6.5 5-9 Specific gravity of urine by test strip 1.020 1.016-1.022 Urine protein assay by test strip, semi-quantitative NEGATIVE NEGATIVE Urine glucose detection by automated test strip NEGATIVE NEGATIVE Erythrocytes detection in urine sediment by light microscopy 3+ NEGATIVE Urine ketones detection by automated test strip NEGATIVE NEGATIVE Urine nitrite detection by test strip NEGATIVE NEGATIVE Urine total bilirubin detection by test strip NEGATIVE NEGATIVE Urine urobilinogen measurement by automated test strip (mass/volume) NORMAL NORMAL Urine leukocyte esterase detection by dipstick NEGATIVE NEGATIVE Automated urine sediment erythrocyte count by microscopy (number/high power field) [HPF] NRG Automated urine sediment leukocyte count by microscopy (number/high power field) NONE NRG Bacteria detection in urine sediment by light microscopy NEGATIVE NRG Squamous epithelial cells detection in urine sediment by light microscopy 5-10 NRG Crystals detection in urine sediment by light microscopy NONE NRG Casts detection in urine sediment by light microscopy NONE NRG Mucus detection in urine sediment by light microscopy NEGATIVE NRG Complete urinalysis with reflex to culture NO NRG Complete blood count (CBC) with automated white blood cell (WBC) differential - 10/07/18 19:25 Blood leukocytes automated count (number/volume) 8.0 10*3/uL 4.3-11.0 Blood erythrocytes automated count (number/volume) 4.37 10*6/uL 4.35-5.85 Venous blood hemoglobin measurement (mass/volume) 10.0 g/dL 11.5-16.0 Blood hematocrit (volume fraction) 32 % 35-52 Automated erythrocyte mean corpuscular volume 74 [foz_us] 80-99 Automated erythrocyte mean corpuscular hemoglobin (mass per erythrocyte) 23 pg 25-34 Automated erythrocyte mean corpuscular hemoglobin concentration measurement (mass/volume) 31 g/dL 32-36 Automated erythrocyte distribution width ratio TNP 10.0-14.5 Automated blood platelet count (count/volume) 284 10*3/uL 130-400 Automated blood platelet mean volume measurement 10.0 [foz_us] 7.4-10.4 Automated blood neutrophils/100 leukocytes 58 % 42-75 Automated blood lymphocytes/100 leukocytes 30 % 12-44 Blood monocytes/100 leukocytes 8 % 0-12 Automated blood eosinophils/100 leukocytes 3 % 0-10 Automated blood basophils/100 leukocytes 1 % 0-10 Blood neutrophils automated count (number/volume) 4.6 10*3 1.8-7.8 Blood lymphocytes automated count (number/volume) 2.4 10*3 1.0-4.0 Blood monocytes automated count (number/volume) 0.6 10*3 0.0- 1.0 Automated eosinophil count 0.3 10*3/uL 0.0-0.3 Automated blood basophil count (count/volume) 0.1 10*3/uL 0.0-0.1 Serum or plasma choriogonadotropin ( test) detection - 10/07/18 19:25 Serum or plasma choriogonadotropin ( test) detection NEGATIVE NEGATIVE Comprehensive metabolic panel - 10/07/18 19:25 Serum or plasma sodium measurement (moles/volume) 139 mmol/L 135-145 Serum or plasma potassium measurement (moles/volume) 3.8 mmol/L 3.6-5.0 Serum or plasma chloride measurement (moles/volume) 105 mmol/L 98-107 Carbon dioxide 26 mmol/L 21-32 Serum or plasma anion gap determination (moles/volume) 8 mmol/L 5-14 Serum or plasma urea nitrogen measurement (mass/volume) 18 mg/dL 7-18 Serum or plasma creatinine measurement (mass/volume) 0.73 mg/dL 0.60-1.30 Serum or plasma urea nitrogen/creatinine mass ratio 25 NRG Serum or plasma creatinine measurement with calculation of estimated glomerular filtration rate > NRG Serum or plasma glucose measurement (mass/volume) 68 mg/dL 70-105 Serum or plasma calcium measurement (mass/volume) 9.8 mg/dL 8.5-10.1 Serum or plasma total bilirubin measurement (mass/volume) 0.1 mg/dL 0.1-1.0 Serum or plasma alkaline phosphatase measurement (enzymatic activity/volume) 70 U/L 40-136 Serum or plasma aspartate aminotransferase measurement (enzymatic activity/volume) 17 U/L 5-34 Serum or plasma alanine aminotransferase measurement (enzymatic activity/volume) 14 U/L 0-55 Serum or plasma protein measurement (mass/volume) 6.7 g/dL 6.4-8.2 Serum or plasma albumin measurement (mass/volume) 4.2 g/dL 3.2-4.5 CALCIUM CORRECTED 9.6 mg/dL 8.5-10.1 Lipase - 10/07/18 19:25 Lipase 56 U/L 8-78 Tick identification panel - 10/18/18 15:29 Serum Ehrlichia chaffeensis IgG antibody detection 1:32 <1:16 Serum Ehrlichia chaffeensis IgM antibody detection <1:10 <1:10 Serum Rickettsia rickettsii IgG antibody assay (units/volume) < <1:16 [place] spotted fever panel < <1:10 Francisella tularensis antibody assay 1:40 NRG LYME AB G M 0.11 % 0.00-0.89 Interpretation of Lyme disease antibody assay Negative Negative Radiology Report from [facility] on 01/04/2015 11:38:00 DIAGNOSTIC IMAGING REPORT [facility] - [address] [address] PHONE #: [phone] FAX #: [phone] Name: PRAVEENA PARK Loc: [facility] Radiology No: : 1985 Age: 29 Sex: F Status: REG ER Unit No: [id number] Phys: Grey Prather DO Acct: [id number] Reason For Exam: abdominal pain Exam Date: 01/04/2015 EXAMS: CPT CODE: [id number] CT ABD/PELVIS WITH CONTRAST 93801 REASON FOR EXAM: Abdominal pain. TIME OF CURRENT STUDY: 01/04/2015 11:05 AM COMPARISON: None. TECHNIQUE: Helical post-contrast enhanced images were obtained through the abdomen and pelvis. FINDINGS: CT Abdomen: The included lung bases are clear. There is possible asymmetric circumferential thickening and hyperemia of the prepyloric antrum (image 26, series 2). The remainder of the stomach including the fundus is unremarkable in appearance. There is no free intraperitoneal air or free fluid. Multiple bilateral simple appearing cysts are visualized, the largest measuring 2.4 cm in the superior right renal pole (image 13, series 2). There is no surrounding inflammatory change present in either kidney. There is mild prominence of the bilateral ureters without obstructive calculus. The bilateral kidneys otherwise unremarkable in appearance. The gallbladder, liver, spleen, pancreas, adrenal glands and kidneys all have normal appearance. There is no mesenteric or retroperitoneal adenopathy. The bowel loops are nondilated. A normal appendix is visualized. CT Pelvis: The ureters and bladder are grossly normal. The bilateral ovaries are mildly prominent without dominant cyst. There is no free air, free fluid, loculated collection or adenopathy in the pelvis. The osseous and soft tissue structures of the abdomen and pelvis demonstrate no acute abnormalities. IMPRESSION: 1. Circumferential thickening and hyperemia of the prepyloric gastric antrum. Consider correlation with direct endoscopy to exclude the possibility of gastritis and peptic ulcer disease. The remainder of the stomach is unremarkable. 2. Normal appendix. 3. Mild prominence of the bilateral ureters without evidence of hydronephrosis or urolithiasis. Multiple simple appearing cysts are PAGE 1 Signed Report (CONTINUED) DIAGNOSTIC IMAGING REPORT [facility] - [address] [address] PHONE #: [phone] FAX #: [phone] Name: PRAVEENA PARK Loc: [facility]IL[facility] Radiology No: : 1985 Age: 29 Sex: F Status: REG Unit No: [id number] Phys: Grey Prather DO Acct: [id number] Reason For Exam: polina for Exam: abdominal pain Exam Date: 01/04/2015 EXAMS: CPT CODE: [id number] CT ABD/PELVIS WITH CONTRAST 43175 <Continued> noted bilaterally. No perinephric inflammatory changes present. 4. No small bowel obstruction. 5. Mild prominence of the bilateral ovaries without dominant cyst. Findings were discussed with Grey Santoyo DO 01/04/2015 11:19 AM approximately. I have personally reviewed these images and approved or corrected the resident physician's interpretation. at 1133 RESIDENT: SCOTTIE CHEUNG MD Reported and signed by: DACIA DON JR., MD CC: Grey Santoyo DO Technologist: BRANDON SANDHU; COLTEN CUELLAR Transcribed Date/Time: 01/04/2015 (0298)Hospice [facility] Therapy: MIRA Printed Date/Time: 01/04/2015 (5376) BATCH NO: N/A PAGE 2 Signed Report Radiology Report from [facility] on 09/06/2016 15:39:00 DIAGNOSTIC IMAGING REPORT [facility] - [address] [place] [address] PHONE #: [phone] FAX #: [phone] Name: PRAVEENA PARK [facility] : 1985 Age: 30 Sex: F Status: REG ER Unit No: [id number] Phys: Colt Mcclendon DO Acct: [id number] Reason For Exam: heavy VB Exam Date: 09/06/2016 EXAMS: CPT CODE: [id number] SONO PELVIS [id number] TRANSVAGINAL NON-OB 93101 HISTORY: Heavy vaginal bleeding COMPARISON: None. FINDINGS: Ultrasound examination of the pelvis was performed transabdominally and transvaginally. The uterus is homogeneous in echotexture without evidence of focal mass. The uterus measures 6.2 x 7.6 x 10.5 cm. The endometrial stripe appears normal and measures 10 mm in maximum thickness. The right ovary measures 4.6 x 2.2 x 3.6 cm. The left ovary measures 2.6 x 1.2 x 2.0 cm. There is no free fluid in the cul-de-sac. IMPRESSION: No sonographic abnormalities of the pelvis are identified. The endometrium is within normal range for thickness with no focal abnormalities. Marina ctronically Signed by JENNIFER CORNELIUS MD on 09/06/2016 at 1534 Reported and signed by: JENNIFER CORNELIUS MD CC: Colt Aparicio DO Technologist: PROBE: [id number]; ESEQUIEL JORDANMASOUD Transcribed Date/Time: 09/06/2016 (5874)Hospice Music Therapy: SANDI Printed Date/Time: 09/06/2016 (2934) BATCH NO: N/A PAGE 1 Signed Report Radiology Report from [facility] on 09/06/2016 15:39:00 DIAGNOSTIC IMAGING REPORT [facility] - [address] [place] [address] PHONE #: [phone] FAX #: [phone] Name: PRAVEENA PARK Loc: [facility] Radiology No: : 1985 Age: 30 Sex: F Status: REG ER Unit No: [id number] Phys: Colt Mcclendon DO Acct: [id number] Reason For Exam: heavy VB Exam Date: 09/06/2016 EXAMS: CPT CODE: [id number] SONO PELVIS [id number] TRANSVAGINAL NON-OB 01256 HISTORY: Heavy vaginal bleeding COMPARISON: None. FINDINGS: Ultrasound examination of the pelvis was performed transabdominally and transvaginally. The uterus is homogeneous in echotexture without evidence of focal mass. The uterus measures 6.2 x 7.6 x 10.5 cm. The endometrial stripe appears normal and measures 10 mm in maximum thickness. The right ovary measures 4.6 x 2.2 x 3.6 cm. The left ovary measures 2.6 x 1.2 x 2.0 cm. There is no free fluid in the cul-de-sac. IMPRESSION: No sonographic abnormalities of the pelvis are identified. The endometrium is within normal range for thickness with no focal abnormalities. Marina ctronically Signed by JENNIFER CORNELIUS MD on 09/06/2016 at 1534 Reported and signed by: JENNIFER CORNELIUS MD CC: Colt Aparicio DO Technologist: PROBE: [id number]; ESEQUIEL GUZMAN Transcribed Date/Time: 09/06/2016 (8098)Hospice Music Therapy: SANDI Printed Date/Time: 09/06/2016 (8887) BATCH NO: N/A PAGE 1 Signed Report Encounters ACCT No. Visit Date/Time Discharge Status Pt. Type Provider Facility Loc./Unit Complaint [id number] 10/18/2018 14:54:00 10/18/2018 16:23:00 DIS Emergency IRISH ECKERT [facility] ER RASH ALL OVER [id number] 10/07/2018 18:53:00 10/07/2018 21:34:00 DIS Outpatient IRISH ECKERT [facility] ER ABD PAIN [id number] 06/13/2018 12:08:00 06/13/2018 12:40:00 DIS Emergency KIAN BORRERO MD [facility] ER POSS STAPH ON L LEG [id number] 06/12/2018 20:39:00 06/12/2018 21:21:00 DIS Emergency IRISH ECKERT [facility] ER L LEG POSS STAPH INFECTION/WOUND [id number] 06/12/2018 17:05:00 06/12/2018 17:16:00 DIS Emergency IRISH ECKERT [facility] ER L LEG POSS STAPH INFECTION/WOUND [id number] 05/24/2018 20:00:00 05/26/2018 14:55:00 DIS Inpatient BLAYNE TA, CHET Whipple [facility] 4TH PYELONEPHRITIS,HYDROSALPYRX [id number] 03/19/2018 17:23:00 03/21/2018 11:50:00 DIS Inpatient JOSEPH TA, JOSE Whipple [facility] 4TH SEPSIS, UTI [id number] 01/29/2018 12:54:00 01/29/2018 19:55:00 DIS Outpatient [facility] AB[facility]ESS [id number] 12/01/2017 17:13:00 12/01/2017 18:01:00 DIS Emergency IRISH ECKERT [facility] ER L HAND INJ [id number] 05/29/2017 02:30:00 05/29/2017 06:20:00 DIS Emergency KENDRA TA, SHIRLENE Jackson [facility] ER LEFT SIDE ABD PAIN [id number] 11/09/2016 16:32:00 11/09/2016 16:58:00 DIS Emergency Secrist , [facility] W.EDW [id number] 09/06/2016 12:52:00 09/06/2016 16:30:00 DIS Emergency Secrisantoinette , [facility] W.EDW [id number] 07/31/2016 16:36:00 07/31/2016 16:56:00 DIS Emergency Stiven Moralez DO [facility] W.EDW [id number] 01/11/2016 08:16:00 01/11/2016 08:47:00 DIS Emergency Marc TA, [facility] W.EDW [id number] 12/28/2015 19:32:00 12/28/2015 20:25:00 DIS Emergency Marc TA, [facility] W.EDW [id number] 11/28/2015 08:04:00 11/28/2015 08:30:00 DIS Emergency Jesica TA, Leon Shelley [facility] W.EDW [id number] 01/04/2015 09:52:00 01/04/2015 13:04:00 DIS Emergency Grey Santoyo DO [facility] W.HANNAH [id number] 01/01/2015 09:22:00 01/01/2015 12:40:00 DIS Emergency Colt Aparicio DO [facility] W.EDW [id number] 12/27/2014 21:37:00 12/27/2014 23:13:00 DIS Emergency Marc [facility], [facility] [id number] 09/17/2014 10:42:00 09/17/2014 11:10:00 DIS [facility] W.EDS
[2018-12-08] MEDS ORDERED: RX-MUPIROCIN (BACTROBAN) 2% OINT 22 GM TUBE TOP STA (19:14)
[2018-12-08] MEDS ORDERED: CLIN300C11 PO (19:20)
--- NOTE | 2018-12-08 19:20 | ED Integumentary General ---
General Stated Complaint: WOUND ON FOREHEAD Source: patient Exam Limitations: no limitations History of Present Illness Date Seen by Provider: Dec 08, 2018 Time Seen by Provider: 19:16 Initial Comments To ER with reports of an abscess to the right side of her forehead present for 2-3 days. States it began as a scratch. No fevers or chills. States she has had a positive test at home a few days ago. Timing/Duration: constant Severity: moderate Location: face Associated Symptoms: denies symptoms Allergies and Home Medications Allergies Coded Allergies: ciprofloxacin (Unverified Allergy, Unknown, 05/29/17) Home Medications Cephalexin 500 Mg Capsule, 500 MG PO BID Prescribed by: JOSE RUIZ on 05/26/18 1327 Doxycycline Hyclate 100 Mg Capsule, 100 MG PO BID Prescribed by: IRISH ECKERT on 10/18/18 1609 Patient Home Medication List Home Medication List Reviewed: Yes Review of Systems Review of Systems Constitutional: see HPI EENTM: see HPI Respiratory: no symptoms reported Cardiovascular: no symptoms reported Genitourinary: no symptoms reported Musculoskeletal: no symptoms reported Skin: see HPI Psychiatric/Neurological: No Symptoms Reported Endocrine: No Symptoms Reported Past Ulmelxn-Hexiic-Jafbuj Hx Patient Social History 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 Type Used: Cigarettes 2nd Hand Smoke Exposure: Yes Recent Hopitalizations: Yes (UTI 3 months ago) Immunizations Up To Date Tetanus Booster (TDap): Unknown PED Vaccines UTD: Yes Seasonal Allergies Seasonal Allergies: No Past Medical History Surgeries: Yes Adenoidectomy, Breast, Section, Tonsillectomy Respiratory: No Currently Using CPAP: No Currently Using BIPAP: No Cardiac: No Neurological: No 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: No 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 Genitourinary: Yes (recurrent urinary tract infection) Kidney Infection, UTI-Chronic Gastrointestinal: Yes (COLLAGENOUS COLITIS) Colitis Musculoskeletal: Yes Scoliosis Endocrine: No HEENT: No Cancer: No Psychosocial: No Integumentary: No Blood Disorders: Yes (anemia) Adverse Reaction/Blood Tranf: No (has received blood on mult occasions) Family Medical History Diabetes mellitus maternal grandfather paternal grandfather Gastroenteritis 19 FATHER paternal grandmother ( from sepsis at age 85) maternal grandfather Hypertension 19 MOTHER maternal grandmother maternal grandfather Neoplasm maternal aunt (breast cancer) Physical Exam Vital Signs Capillary Refill : General Appearance: WD/WN, no apparent distress HEENT: PERRL/EOMI, normal ENT inspection, other (1 cm pustule that is open and draining to the right side of the forehead without surrounding cellulitis.) Neck: non-tender, full range of motion Respiratory: no respiratory distress, no accessory muscle use Neurologic/Psychiatric: alert, normal mood/affect, oriented x 3 Skin: normal color, warm/dry Skin Problem Character: abscess Progress/Results/Core Measures Results/Orders My Orders Orders - LILLIAN DEVI APRN Wound Culture (12/08/18 19:14) Rx-Mupirocin 2% Oint (Rx-Bactroban) (12/08/18 19:14) Departure Impression Primary Impression: Facial abscess Disposition: HOME, SELF-CARE Condition: Stable Departure-Patient Inst. Decision time for Depature: 19:18 Referrals: NO,LOCAL PHYSICIAN (PCP/Family) Primary Care Physician Patient Instructions: Skin Abscess Add. Discharge Instructions: 1. Go home and squeeze this trying to get the material out of within it. Keep covered with a Band-Aid to collect any drainage. Warm compresses are helpful too. Return to ER for any concerns. Use the topical antibiotics twice daily for 5 days, oral antibiotics as directed. Scripts Clindamycin HCl (Clindamycin HCl) 300 Mg Capsule 300 MG PO TID, #21 CAP Prov: LILLIAN DEVI APRN 12/08/18 LILLIAN DEVI APRN Dec 08, 2018 19:20
[2018-12-08 19:31] VITALS: BP 128/89
--- NOTE | 2018-12-10 14:42 | NUR ---
CULTURE REPORT REVIEWED BY Henrietta DEVI APRN NO FURTHER TX NEEDED.
== END 2018-12-08 19:32 | disposition home or self-care (01) ==
LOC: EDUNIT# 18:49 → ER 18:50
DX: L02.01 Cutaneous abscess of face (principal); Z88.1 Allergy status to other antibiotic agents; Z77.22 Contact with and (suspected) exposure to environmental tobacco smoke (acute) (chronic); Z90.89 Acquired absence of other organs; Z98.51 Tubal ligation status; Z82.49 Family history of ischemic heart disease and other diseases of the circulatory system; Z80.3 Family history of malignant neoplasm of breast
CPT/HCPCS: 87070; 87077; 87186; 87205; 99282

== ENCOUNTER 2019-04-02 16:03 | Emergency (ER) | payer MEDICAID, OTHER ==
[~2019-04-02] VITALS: Ht 157 cm; Wt 60.0 kg
[~2019-04-02 16:03] MED LIST changes: +CLIN300C11 PO
--- NOTE | 2019-04-02 16:24 | ED Cough/URI ---
General Chief Complaint: Cough/Cold/Flu Symptoms Stated Complaint: SOB,THROWING UP,5 MONTHS Nursing Triage Note: PT REPORTS SHE HAS A COUGH AND CONGESTION. sHE HAD SOME VOMITING AND DIARRHEA YESTERDAY. SHE IS 22 WEEKS THAT HAS AN OB DR [facility] IN [place]. Sepsis Screen: No Definite Risk Source: patient Exam Limitations: no limitations History of Present Illness Date Seen by Provider: Apr 02, 2019 Time Seen by Provider: 16:20 Initial Comments Onset of nasal congestion and a cough yesterday. No fever or SOA. 5 months . Has had one OB appt. No abdominal or pelvic pain. No vaginal bleeding. Allergies and Home Medications Allergies Coded Allergies: ciprofloxacin (Unverified Allergy, Unknown, 05/29/17) Home Medications Cephalexin 500 Mg Capsule, 500 MG PO BID Prescribed by: JOSE RUIZ on 05/26/18 1327 Clindamycin HCl 300 Mg Capsule, 300 MG PO TID Prescribed by: LILLIAN DEVI on 12/08/18 1920 Doxycycline Hyclate 100 Mg Capsule, 100 MG PO BID Prescribed by: IRISH ECKERT on 10/18/18 1609 Patient Home Medication List Home Medication List Reviewed: Yes Review of Systems Review of Systems Constitutional: see HPI; No fever, No malaise, No weakness EENTM: see HPI, nose congestion; No ear discharge, No hearing loss, No ear pain, No hoarseness, No epistaxis, No throat pain, No throat swelling Respiratory: cough; No dyspnea on exertion, No orthopnea, No short of breath, No stridor, No wheezing Cardiovascular: No chest pain, No edema, No palpitations Gastrointestinal: No abdominal pain, No loss of appetite, No nausea, No vomiting Skin: No pruritus, No rash Past Cytrunz-Cwxteq-Zmxlaw Hx Patient Social History Alcohol Use: Denies Use Recreational Drug Use: No 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 Smoking Status: Former Smoker Type Used: Cigarettes 2nd Hand Smoke Exposure: Yes Recent Foreign Travel: No Contact w/Someone Who Travel: No Recent Infectious Disease Expo: No Recent Hopitalizations: No Physical Abuse: No Sexual Abuse: No Mistreated: No Fear: No Immunizations Up To Date Tetanus Booster (TDap): Unknown PED Vaccines UTD: Yes Seasonal Allergies Seasonal Allergies: No Past Medical History Surgeries: Yes Adenoidectomy, Breast, Section, Tonsillectomy Respiratory: No Currently Using CPAP: No Currently Using BIPAP: No Cardiac: No Neurological: No 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: No 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 Genitourinary: Yes (recurrent urinary tract infection) Kidney Infection, UTI-Chronic Gastrointestinal: Yes (COLLAGENOUS COLITIS) Colitis Musculoskeletal: Yes Scoliosis Endocrine: No HEENT: No Cancer: No Psychosocial: No Integumentary: No Blood Disorders: Yes (anemia) Adverse Reaction/Blood Tranf: No (has received blood on mult occasions) Family Medical History Diabetes mellitus maternal grandfather paternal grandfather Gastroenteritis 19 FATHER paternal grandmother ( from sepsis at age 85) maternal grandfather Hypertension 19 MOTHER maternal grandmother maternal grandfather Neoplasm maternal aunt (breast cancer) Physical Exam Vital Signs - First Documented 04/02/19 16:15 Temp 36.2 Pulse 100 Resp 18 B/P (MAP) 115/72 (86) Pulse Ox 100 Capillary Refill : Less Than 3 Seconds Height: 5'3.00" Weight: 120lbs. 3.0oz. 54.500592qm; 24.00 BMI Method:Estimated General Appearance: WD/WN, no apparent distress HEENT: PERRL/EOMI, normal ENT inspection, TMs normal, pharynx normal; No pharyngeal erythema, No tonsillar exudate Neck: non-tender, full range of motion, normal inspection; No lymphadenopathy (R), No lymphadenopathy (L) Respiratory: chest non-tender, lungs clear, normal breath sounds, no respiratory distress, no accessory muscle use Extremities: normal inspection, no pedal edema Neurologic/Psychiatric: alert, normal mood/affect Skin: normal color, warm/dry Progress/Results/Core Measures Suspected Sepsis Recent Fever Within 48 Hours: No Infection Criteria Present: None New/Unexplained Altered Menta: No Sepsis Screen: No Definite Risk SIRS Temperature: Pulse: 100 Respiratory Rate: 18 Blood Pressure 115 /72 Mean: 86 Results/Orders Vital Signs/I&O 04/02/19 16:15 Temp 36.2 Pulse 100 Resp 18 B/P (MAP) 115/72 (86) Pulse Ox 100 Capillary Refill : Less Than 3 Seconds Blood Pressure Mean: 86 POS Departure Impression Primary Impression: Upper respiratory infection Qualified Codes: J06.9 - Acute upper respiratory infection, unspecified Disposition: 01 HOME, SELF-CARE Condition: Stable Departure-Patient Inst. Decision time for Depature: 16:23 Referrals: NO,LOCAL PHYSICIAN (PCP/Family) Primary Care Physician Patient Instructions: Cough, Runny Nose, and the Common Cold (DC), Taking Octp-dso-Bwmxwuw Medicines During NANI GIPSON DO Apr 02, 2019 16:24 POS
[2019-04-02 16:27] VITALS: BP 115/72
== END 2019-04-02 16:26 | disposition home or self-care (01) ==
LOC: EDUNIT# 16:03 → ER FS 16:04
DX: O99.512 Diseases of the respiratory system complicating pregnancy, second trimester (principal); J06.9 Acute upper respiratory infection, unspecified; O99.012 Anemia complicating pregnancy, second trimester; Z3A.22 22 weeks gestation of pregnancy; Z88.1 Allergy status to other antibiotic agents; Z87.891 Personal history of nicotine dependence; Z77.22 Contact with and (suspected) exposure to environmental tobacco smoke (acute) (chronic); Z90.89 Acquired absence of other organs; Z98.51 Tubal ligation status; Z82.49 Family history of ischemic heart disease and other diseases of the circulatory system; Z80.3 Family history of malignant neoplasm of breast
CPT/HCPCS: 99282

== ENCOUNTER 2019-05-08 20:11 | Emergency (ER) | payer OTHER ==
[~2019-05-08] VITALS: Ht 157 cm; Wt 65.7 kg
[2019-05-08] MEDS ORDERED: LACTATED RINGERS 1,000 ML IV ONE (20:29)
--- NOTE | 2019-05-08 20:47 | ED General ---
General Chief Complaint: Dizziness/Syncope Stated Complaint: SOA / LIGHT HEADED / WEAK - 27 WKS PREG Nursing Triage Note: dizzy x3 days Nursing Sepsis Screen: No Definite Risk Source of Information: Patient Exam Limitations: No Limitations History of Present Illness Date Seen by Provider: May 08, 2019 Time Seen by Provider: 20:23 Initial Comments This 33-year-old woman at approximately 27 weeks gestational age presents to the emergency room with complaints of feeling tired, lightheaded, dry, and short of breath with exertion. She presented to the clinic on Friday and reports a hemoglobin of 7.9 as tested there. She has problems with chronic anemia and has required periodic transfusions over the last several years. She does not know the cause of her anemia. She reports she does not tolerate iron supplementation or vitamins very well due to GI symptoms. She reports good movement. Vital signs are normal. She reports an abnormal ultrasound demonstrating abnormal fluid on the baby's abdomen. She saw a perinatologist in [place] for this last week. She reports conservative management with monitoring only at this time. movement is good today and her heart tones are 155. Allergies and Home Medications Allergies Coded Allergies: ciprofloxacin (Unverified Allergy, Unknown, 05/29/17) Home Medications No Active Prescriptions or Reported Meds Patient Home Medication List Home Medication List Reviewed: Yes Review of Systems Review of Systems Constitutional: see HPI EENTM: no symptoms reported Respiratory: see HPI Cardiovascular: see HPI Gastrointestinal: see HPI Genitourinary: no symptoms reported : Yes Expected Date of Delivery: Aug 08, 2019 Musculoskeletal: no symptoms reported Skin: no symptoms reported Psychiatric/Neurological: No Symptoms Reported Hematologic/Lymphatic: See HPI Immunological/Allergic: no symptoms reported Past Spaxspz-Cllkko-Sycsji Hx Past Med/Social Hx: Reviewed Nursing Past Med/Soc Hx Patient Social History Alcohol Use: Denies Use Recreational Drug Use: No Drug of Choice: denies Smoking Status: Current Everyday Smoker Type Used: Cigarettes 2nd Hand Smoke Exposure: Yes Recent Foreign Travel: No Contact w/Someone Who Travel: No Recent Infectious Disease Expo: No Recent Hopitalizations: No Physical Abuse: No Sexual Abuse: No Mistreated: No Fear: No Immunizations Up To Date Tetanus Booster (TDap): Unknown PED Vaccines UTD: Yes Seasonal Allergies Seasonal Allergies: No Past Medical History Surgeries: Yes Adenoidectomy, Breast, Section, Tonsillectomy Respiratory: No Currently Using CPAP: No Currently Using BIPAP: No Cardiac: No Neurological: No : Yes Expected Date of Delivery: Aug 08, 2019 Last Menstrual Period: Oct 24, 2018 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: No Genitourinary: Yes (recurrent urinary tract infection) Kidney Infection, UTI-Chronic Gastrointestinal: Yes Colitis Musculoskeletal: Yes Scoliosis Endocrine: No HEENT: No Cancer: No Psychosocial: No Integumentary: No Blood Disorders: Yes (anemia) Adverse Reaction/Blood Tranf: No Family Medical History Reviewed Nursing Family Hx Diabetes mellitus maternal grandfather paternal grandfather Gastroenteritis 19 FATHER paternal grandmother ( from sepsis at age 85) maternal grandfather Hypertension 19 MOTHER maternal grandmother maternal grandfather Neoplasm maternal aunt (breast cancer) Physical Exam Vital Signs Vital Signs - First Documented 05/08/19 20:16 Temp 36.7 Pulse 88 Resp 18 B/P (MAP) 129/81 (97) Pulse Ox 100 O2 Delivery Room Air Capillary Refill : Less Than 3 Seconds Height, Weight, BMI Height: 5'3.00" Weight: 120lbs. 3.0oz. 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 Norm as Tested Skin: Normal Color, Warm/Dry Progress/Results/Core Measures Suspected Sepsis Recent Fever Within 48 Hours: No Infection Criteria Present: None New/Unexplained Altered Menta: No Sepsis Screen: No Definite Risk SIRS Temperature: Pulse: 88 Respiratory Rate: 18 Laboratory Tests 05/08/19 20:35: White Blood Count 10.4 Blood Pressure 129 /81 Mean: 97 Laboratory Tests 05/08/19 20:35: Creatinine 0.66, Platelet Count 197, Total Bilirubin 0.2 Results/Orders Lab Results Laboratory Tests Test 05/08/19 20:30 05/08/19 20:35 Range/Units Urine Color YELLOW Urine Clarity SL CLOUDY Urine pH 7.0 5-9 Urine Specific Vona 1.025 H 1.016-1.022 Urine Protein NEGATIVE NEGATIVE Urine Glucose (UA) NEGATIVE NEGATIVE Urine Ketones NEGATIVE NEGATIVE Urine Nitrite NEGATIVE NEGATIVE Urine Bilirubin NEGATIVE NEGATIVE Urine Urobilinogen 0.2 < = 1.0 MG/DL Urine Leukocyte Esterase NEGATIVE NEGATIVE Urine RBC (Auto) NEGATIVE NEGATIVE Urine RBC NONE /HPF Urine WBC RARE /HPF Urine Squamous Epithelial Cells 10-25 H /HPF Urine Crystals PRESENT H /LPF Urine Amorphous Sediment MOD RAMIRO PHOSPHATE H /LPF Urine Bacteria TRACE /HPF Urine Casts NONE /LPF Urine Mucus NEGATIVE /LPF Urine Culture Indicated NO White Blood Count 10.4 4.3-11.0 10^3/uL Red Blood Count 3.59 L 4.35-5.85 10^6/uL Hemoglobin 7.8 L 11.5-16.0 G/DL Hematocrit 26 L 35-52 % Mean Corpuscular Volume 72 L 80-99 FL Mean Corpuscular Hemoglobin 22 L 25-34 PG Mean Corpuscular Hemoglobin Concent 30 L 32-36 G/DL Red Cell Distribution Width 18.6 H 10.0-14.5 % Platelet Count 197 130-400 10^3/uL Mean Platelet Volume 11.4 H 7.4-10.4 FL Neutrophils (%) (Auto) 70 42-75 % Lymphocytes (%) (Auto) 20 12-44 % Monocytes (%) (Auto) 8 0-12 % Eosinophils (%) (Auto) 1 0-10 % Basophils (%) (Auto) 0 0-10 % Neutrophils # (Auto) 7.3 1.8-7.8 X 10^3 Lymphocytes # (Auto) 2.1 1.0-4.0 X 10^3 Monocytes # (Auto) 0.8 0.0-1.0 X 10^3 Eosinophils # (Auto) 0.1 0.0-0.3 10^3/uL Basophils # (Auto) 0.0 0.0-0.1 10^3/uL Sodium Level 137 135-145 MMOL/L Potassium Level 3.2 L 3.6-5.0 MMOL/L Chloride Level 107 98-107 MMOL/L Carbon Dioxide Level 18 L 21-32 MMOL/L Anion Gap 12 5-14 MMOL/L Blood Urea Nitrogen 10 7-18 MG/DL Creatinine 0.66 0.60-1.30 MG/DL Estimat Glomerular Filtration Rate > 60 BUN/Creatinine Ratio 15 Glucose Level 77 70-105 MG/DL Calcium Level 9.2 8.5-10.1 MG/DL Corrected Calcium 9.5 8.5-10.1 MG/DL Magnesium Level 1.6 1.6-2.4 MG/DL Total Bilirubin 0.2 0.1-1.0 MG/DL Aspartate Amino Transf (AST/SGOT) 13 5-34 U/L Alanine Aminotransferase (ALT/SGPT) 10 0-55 U/L Alkaline Phosphatase 79 40-136 U/L Total Protein 6.7 6.4-8.2 GM/DL Albumin 3.6 3.2-4.5 GM/DL My Orders Orders - SHIRLENE GARDNER MD Cbc With Automated Diff (05/08/19 20:29) Comprehensive Metabolic Panel (05/08/19 20:29) Magnesium (05/08/19 20:29) Ua Culture If Indicated (05/08/19 20:29) Ed Iv/Invasive Line Start (05/08/19 20:29) Lactated Ringers (Lr 1000 Ml Iv Solution (05/08/19 20:29) Red Cells Leukocytes Reduced (05/08/19 20:58) Type And Screen (05/08/19 20:58) Potassium Chloride (Tablet) (Klor Con Ta (05/08/19 21:45) Medications Given in ED Current Medications Medications Dose Ordered Sig/Nicole Route Start Time Stop Time Status Last Admin Dose Admin Lactated Ringer's 1,000 ml @ 0 mls/hr Q0M ONCE IV 05/08/19 20:29 05/08/19 20:31 DC 05/08/19 20:42 0 MLS/HR Potassium Chloride 20 meq ONCE ONCE PO 05/08/19 21:45 05/08/19 21:46 DC 05/08/19 21:40 20 MEQ Vital Signs/I&O 05/08/19 05/08/19 20:16 22:00 Temp 36.7 36.5 Pulse 88 80 Resp 18 18 B/P (MAP) 129/81 (97) 115/77 (97) Pulse Ox 100 99 O2 Delivery Room Air Room Air 05/09/19 00:00 Intake Total 1000 ml Balance 1000 ml Capillary Refill : Less Than 3 Seconds Blood Pressure Mean: 97 Progress Note #1: Time: 21:39 Progress Note Case was discussed with Dr. Mcbride who requested transfusion of a unit of red blood cells. 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 She may need to return at a later date for a special order transfusion. I discussed other treatment options with the patient such as iron infusions and/or a hematology consult. I've advised her to discuss this with her obstetrical team. In the meantime she is receiving a liter of LR. Potassium is low and she will receive some oral replacement. Progress Note #2: Time: 21:52 Progress Note Blood bank reports we do not have testing kits for anti-[place] antibody to crossmatched units here. We will send blood off to the [facility] for matching. Also, blood bank states the anti-[place]ika screening was negative here. Patient says she tested positive at [facility] in [place], [place]. Dr. Mcbride stated the antibody screen was also positive through the clinic through [facility]. Departure Impression Primary Impression: Microcytic anemia Additional Impressions: Hypokalemia Qualified Codes: Z3A.27 - 27 weeks gestation of Disposition: 01 HOME, SELF-CARE Condition: Improved Departure-Patient Inst. Referrals: NO,LOCAL PHYSICIAN (PCP/Family) Primary Care Physician Patient Instructions: Anemia Caused by Low Iron Add. Discharge Instructions: Drink plenty of clear liquids. For nausea you may take vitamin B 6 and a Unisom tablet at bedtime to help with nausea the next day. Follow-up with your obstetrical team as soon as possible. Discuss ways to boost your iron and hemoglobin. This might include a referral to a ict help desk officer and/or iron transfusions. In the meantime, eat a diet high in iron which might include iron rich foods such as leafy green vegetables like spinach, red meats, etc. Return to care if you have any worsening symptoms. All discharge instructions reviewed with patient and/or family. Voiced understanding. Scripts No Active Prescriptions or Reported Meds Copy Copies To 1: ALETHA MCBRIDE MD Copies To 2: TESS BRENNAN JOSHUA T MD May 08, 2019 20:47
[2019-05-08 20:50] LABS: BASOPHILS % (AUTO) 0 % (0-10); EOSINOPHILS # (AUTO) 0.1 10^3/uL (0.0-0.3); EOSINOPHILS % (AUTO) 1 % (0-10); HEMATOCRIT 26 % (35-52); HEMOGLOBIN 7.8 G/DL (11.5-16.0); LYMPHOCYTES # (AUTO) 2.1 X 10^3 (1.0-4.0); LYMPHOCYTES % (AUTO) 20 % (12-44); MEAN CORPUSCULAR HEMOGLOBIN 22 PG (25-34); MEAN CORPUSCULAR HGB CONC 30 G/DL (32-36); MEAN CORPUSCULAR VOLUME 72 FL (80-99); MEAN PLATELET VOLUME 11.4 FL (7.4-10.4); MONOCYTES # (AUTO) 0.8 X 10^3 (0.0-1.0); MONOCYTES % (AUTO) 8 % (0-12); NEUTROPHILS # (AUTO) 7.3 X 10^3 (1.8-7.8); NEUTROPHILS % (AUTO) 70 % (42-75); PLATELET COUNT 197 10^3/uL (130-400); RED CELL DISTRIBUTION WIDTH 18.6 % (10.0-14.5); WHITE BLOOD COUNT 10.4 10^3/uL (4.3-11.0)
[2019-05-08 20:51] LABS: BILIRUBIN,URINE NEGATIVE (NEGATIVE); CLARITY,URINE SL CLOUDY; COLOR,URINE YELLOW; GLUCOSE, URINE (UA) NEGATIVE (NEGATIVE); KETONES,URINE NEGATIVE (NEGATIVE); LEUKOCYTE ESTERASE ,URINE NEGATIVE (NEGATIVE); NITRITE,URINE NEGATIVE (NEGATIVE); PROTEIN,URINE NEGATIVE (NEGATIVE)
[2019-05-08 20:57] LABS: AMORPHOUS SEDIMENT,UR MOD AMOR PHOSPHATE /LPF; BACTERIA,URINE TRACE /HPF; WBC,URINE RARE /HPF
[2019-05-08 21:11] LABS: ALANINE AMINOTRANSFERASE 10 U/L (0-55); ALBUMIN 3.6 GM/DL (3.2-4.5); ALKALINE PHOSPHATASE 79 U/L (40-136); BILIRUBIN,TOTAL 0.2 MG/DL (0.1-1.0); BUN/CREATININE RATIO 15; CALCIUM 9.2 MG/DL (8.5-10.1); CARBON DIOXIDE 18 MMOL/L (21-32); CHLORIDE 107 MMOL/L (98-107); CREATININE SERUM 0.66 MG/DL (0.60-1.30); GFR ESTIMATED > 60; GLUCOSE 77 MG/DL (70-105); MAGNESIUM 1.6 MG/DL (1.6-2.4); POTASSIUM 3.2 MMOL/L (3.6-5.0); SODIUM 137 MMOL/L (135-145); TOTAL PROTEIN 6.7 GM/DL (6.4-8.2)
[2019-05-08] MEDS ORDERED: KCL 10 MEQ TAB (MICRO K) PO ONE (21:45)
[2019-05-08 22:00] VITALS: BP 115/77
== END 2019-05-08 22:02 | disposition home or self-care (01) ==
LOC: EDUNIT# 20:11 → ER 20:13
DX: O99.012 Anemia complicating pregnancy, second trimester (principal); D50.9 Iron deficiency anemia, unspecified; O99.282 Endocrine, nutritional and metabolic diseases complicating pregnancy, second trimester; E87.6 Hypokalemia; O99.332 Smoking (tobacco) complicating pregnancy, second trimester; F17.210 Nicotine dependence, cigarettes, uncomplicated; Z3A.27 27 weeks gestation of pregnancy; Z88.1 Allergy status to other antibiotic agents; Z90.49 Acquired absence of other specified parts of digestive tract; Z90.89 Acquired absence of other organs; Z87.440 Personal history of urinary (tract) infections; Z82.49 Family history of ischemic heart disease and other diseases of the circulatory system
CPT/HCPCS: 36415; 80053; 81000; 83735; 85025; 86850; 86900; 86901; 86902; 86920; 86922; 96360

== ENCOUNTER 2019-05-11 13:17 | Outpatient (CLI) | payer OTHER ==
[~2019-05-11] VITALS: Ht 162.6 cm; Wt 65.7 kg
[2019-05-11] MEDS ORDERED: NS IV 500 ML 500 ML ONE (13:38)
[2019-05-11 13:45] VITALS: BP 109/69
[2019-05-11] MEDS ORDERED: NS IV 500 ML 500 ML IV ONE (14:00)
[2019-05-11 14:19] VITALS: BP 108/71
--- NOTE | 2019-05-11 15:07 | NUR ---
BLOOD TRANSFUSED WITHOUT DIFFICULTY. VSS. DENIES ANY DISCOMFORT. REPORTS POSITIVE MOVEMENT.
[2019-05-11 15:22] VITALS: BP 109/69
--- NOTE | 2019-05-11 15:30 | NUR ---
IV DC'D. PATIENT DISMISSED TO HOME.
== END 2019-05-11 15:30 | disposition home or self-care (01) ==
LOC: SDC 13:17
PROVIDERS: ATTEND Family Medicine
DX: D50.9 Iron deficiency anemia, unspecified (principal)
CPT/HCPCS: 36430

== ENCOUNTER 2019-05-26 12:09 | Outpatient (CLI) | payer OTHER ==
[~2019-05-26] VITALS: Ht 157.5 cm; Wt 68.2 kg
[2019-05-26] VITALS (13 sets, daily range): BP systolic 107–160; BP diastolic 58–77
--- NOTE | 2019-05-26 11:58 | NUR ---
WARDSPRAVEENA presented to unit via AMBULATORY from BRENNAN'S OFFICE, with c/o DEHYDRATION- NEEDING IV FLUIDS. WARDSPRAVEENA voided and to bed. WARDSPRAVEENA oriented to bed controls, call light, TV, heat, and A/C controls.
--- NOTE | 2019-05-26 12:03 | NUR ---
DR. BERNNAN CALLED UNIT, ORDERS RECEIVED.
[~2019-05-26 12:09] MED LIST changes: -DOCU-143 PO; -IRON-17 PO
--- NOTE | 2019-05-26 12:15 | NUR ---
IV STARTED; SEE INTERVENTION FOR FURTHER. IV FLUIDS INFUSING.
[2019-05-26] MEDS ORDERED: D5 LR IV SOLUTION 1,000 ML IV ONE (13:17)
[2019-05-26] MEDS ORDERED: NS IV 1000 ML 1,000 ML IV SCH (13:30)
[2019-05-26] MEDS ORDERED: D5 LR IV SOLUTION 1,000 ML IV SCH (13:30)
--- NOTE | 2019-05-26 13:30 | NUR ---
SANDWICH TRAY PROVIDED PER REQUEST.
[2019-05-26] MEDS ORDERED: IRON DEXTRAN 100 MG/2 ML IV SCH (16:00)
[2019-05-26] MEDS ORDERED: IRON DEXTRAN 100 MG/2 ML IV ONE (16:00)
--- NOTE | 2019-05-26 16:00 | NUR ---
DR. KUMAR STEWARD, PLANS TO DO AN IRON INFUSION IF POSSIBLE, WILL PUT IN THE ORDERS.
--- NOTE | 2019-05-26 16:12 | NUR ---
PHARMACY CALLED UNIT FOR UPDATED IRON INFUSION ORDER, ORDER THAT WAS PLACE IS AN OLD VERSION -WILL CLARIFY WITH DR. BRENNAN.
[2019-05-26] MEDS ORDERED: IRON DEXTRAN 25 MG/NS 6.25 ML TOTAL VOLUME IV NR ×3 (16:30)
[2019-05-26] MEDS ORDERED: NS IV 1000 ML 1,000 ML ONE (16:48)
--- NOTE | 2019-05-26 16:58 | NUR ---
DR. BRENNAN CALLED AND NOTIFIED OF PT'S REACTION AND BLOOD PRESSURES. WILL GIVE THE PT THE OPTION TO STAY OVERNIGHT FOR FLUIDS.
[2019-05-26] MEDS ORDERED: IRON DEXTRAN 1,000 MG/NS 250 ML IVPB IV ONE ×2 (17:00)
--- NOTE | 2019-05-26 17:00 | NUR ---
PHARMACY CALLED AND NOTIFIED OF PT'S REACTION. WILL DC IRON TRANSFUSION.
--- NOTE | 2019-05-26 17:06 | NUR ---
DR. BRENNAN NOTIFIED THAT PT WISHES TO STAY OVERNIGHT, NEW ORDERS RECEIVED.
[2019-05-26] MEDS ORDERED: ZOLPIDEM 5 MG (AMBIEN) TAB PO PRN (17:15)
[2019-05-26] MEDS: D5 LR IV SOLUTION 1,000 ML IV SCH (17:54)
[2019-05-27] MEDS: D5 LR IV SOLUTION 1,000 ML IV SCH (01:55)
--- NOTE | 2019-05-27 06:59 | Progress Note ---
Subjective Date Seen by a Provider: May 26, 2019 Time Seen by a Provider: 17:00 Subjective/Events-last exam Patient is 30 + weeks . She was seen in office and stated I feel dehydrated. She is also anemia and iron deficient. She had 1 unit of PRBCs about 1 week ago. Sent to labor and delivery for fluids. Labs from office today are pending. No specific complaints. No nausea, emesis or diarrhea. Received 2 units of blood and then started IV Iron. During the test dose, she felt flushed and bp increased dramatically. Infusion stopped. Will plan to consider a different medication at a later time. She has opted to stay overnight for additional fluids. Will dc home tomorrow. hearttones have been wnl. She will have NST tonight and in the am. Labs received from clinic. WBC 12.5 with normal differential. HGB 8.6. CMP is wnl. Appointment at [facility] next week and with me in 2 weeks. Maria C Duncan will evaluate her today for dc. Objective Exam Vital Signs Date Time Temp Pulse Resp B/P (MAP) Pulse Ox O2 Delivery O2 Flow Rate FiO2 05/26/19 17:33 84 18 125/75 (92) Room Air 05/26/19 17:28 85 100 Room Air 05/26/19 17:27 36.8 85 18 100 Room Air 05/26/19 17:18 36.8 85 18 111/58 (75) Room Air 05/26/19 17:03 85 18 125/61 (82) Room Air 05/26/19 17:01 96 18 112/62 (79) Room Air 05/26/19 16:59 87 18 115/59 (77) Room Air 05/26/19 16:57 89 18 121/58 (79) Room Air 05/26/19 16:55 99 18 130/73 (92) Room Air 05/26/19 16:54 36.9 106 20 146/77 (100) Room Air 05/26/19 16:49 107 20 160/72 (101) Room Air 05/26/19 16:47 98 18 118/69 (85) Room Air 05/26/19 16:45 37.4 88 18 109/63 (78) Room Air 05/26/19 16:43 85 18 107/64 (78) Room Air 05/26/19 16:38 37.4 I & O 05/27/19 07:00 Intake Total 2000 ml Balance 2000 ml Capillary Refill : Less Than 3 Seconds General Appearance: Moderate Distress Respiratory: Chest Non Tender, Lungs Clear Cardiovascular: Regular Rate, Rhythm Assessment/Plan Assessment/Plan Assess & Plan/Chief Complaint 1. 30 week gestation 2. dehydration TESS BRENNAN DO May 27, 2019 06:59
[2019-05-27 07:00] VITALS: BP 118/70
[2019-05-27] MEDS ORDERED: IRON POLYSAC 150 MG CAP (NIFEREX) PO SCH (07:00)
[2019-05-27] MEDS ORDERED: IRON-17 PO ×2 (07:02)
[2019-05-27] MEDS ORDERED: DOCU-143 PO ×2 (07:02)
--- NOTE | 2019-05-27 08:30 | NUR ---
PT IN BED, ICE CHIPS PROVIDED PER REQUEST.
--- NOTE | 2019-05-27 10:30 | NUR ---
CASSANDRA MACK TO PT'S BEDSIDE. PLAN FOR DISCHARGE. Addendum: 05/27/19 at 1539 by SABINE RICE RN TIME SHOULD BE 1038.
--- NOTE | 2019-05-27 10:30 | NUR ---
CLINIC CALLED PER THIS RN, SPOKE WITH CASSANDRA MACK, ABOUT POC OF PT. Karthikeyan SHEPPARD, PLANS TO BE ON THE FLOOR SHORTLY.
--- NOTE | 2019-05-27 10:33 | Discharge Inst-Women's Service ---
Discharge Inst-Women's Serv Depart Medication/Instructions New, Converted or Re-Newed RX: RX on Chart Problems Reviewed?: Yes Consults/Follow Up Additional Follow Up: Yes (Keep next scheduled OB follow-up) Activity Activity: Activity as Tolerated Driving Instructions: You May Drive Diet Discharge Diet: No Restrictions (Iron fortified foods) Symptoms to Report to : Questions/Concerns For Any Problems or Questions: Contact Your Physician KEMI SHEPPARD APRN May 27, 2019 10:33
[2019-05-27 10:53] VITALS: BP 103/59
--- NOTE | 2019-05-27 11:00 | NUR ---
DISCHARGE PAPERS PROVIDED AND REVIEWED WITH PT, PT VERBALIZES UNDERSTANDING AND DENIES ANY QUESTIONS AT THIS TIME. PAPER SIGNED.
--- NOTE | 2019-05-27 11:05 | NUR ---
PT DISCHARGED FROM -[facility] TO [facility]IA AMBULATORY IN STABLE CONDITION. BELONGINGS IN HAND.
--- NOTE | 2019-05-27 11:59 | Progress Note ---
Progress Note Assessment/Plan Date Seen by Provider: May 27, 2019 Time Seen by Provider: 10:30 Events since last exam Patient did not tolerate IV iron infusion. Assessment/Plan 1. 30 week gestation 2. dehydration D/C'd w/oral iron script. Patient states she has tolerated well in the past but will try taking again. Keep next scheduled appt w/Dr. [place] Call or return to clinic or 3rd floor if symptoms return or worsen Vitals Last set of Vitals Signs Vital Signs Date Time Temp Pulse Resp B/P (MAP) Pulse Ox O2 Delivery O2 Flow Rate FiO2 05/27/19 07:00 75 18 118/70 (86) Room Air 05/26/19 17:28 100 05/26/19 17:27 36.8 I&O I&O Intake and Output 05/27/19 00:00 Intake Total 1000 ml Balance 1000 ml Intake IV Total 1000 ml Diagnosis/Problems Diagnosis/Problems (1) Dehydration Status: Resolved Resolution Date/Time: 05/27/19 @ 11:59 KEMI SHEPPARD APRN May 27, 2019 11:59
== END 2019-05-27 11:05 | disposition home or self-care (01) ==
LOC: WSo 12:09 → LDRP 12:11 → WSo 05-27 11:05
PROVIDERS: ATTEND Obstetrics & Gynecology
DX: O99.283 Endocrine, nutritional and metabolic diseases complicating pregnancy, third trimester (principal); E86.0 Dehydration; Z3A.30 30 weeks gestation of pregnancy

== ENCOUNTER → 2019-05-26 | Outpatient (CLI) | payer OTHER ==
[~2019-05-26] MED LIST changes: +DOCU-143 PO; +IRON-17 PO
== END ==
LOC: LABNPT 14:36
PROVIDERS: ATTEND Obstetrics & Gynecology
DX: Z01.89 Encounter for other specified special examinations (principal)

== ENCOUNTER 2019-06-07 20:32 | Outpatient (CLI) | payer OTHER ==
[~2019-06-07] VITALS: Ht 62 cm; Wt 69.9 kg
--- NOTE | 2019-06-07 20:20 | NUR ---
XAVIERPRAVEENA Haq presented to unit via ambulatory from ED, accompanied by friend, with c/o TIRED,STATES SHE IS DEHYDRATED. WARDS,PRAVEENA Hqa weighed, gowned, voided, and to bed. EFHM and TOCO applied, VS taken. XAVIERPRAVEENA Haq oriented to bed controls, call light, TV, heat, and A/C controls.
[~2019-06-07 20:32] MED LIST changes: +DOCU-143 PO; +IRON-17 PO
--- NOTE | 2019-06-07 20:50 | NUR ---
2049 This RN arrived on unit and received report. 2053 EFM and TOCO applied. History and VS taken.
[2019-06-07 21:00] VITALS: BP 115/80
--- NOTE | 2019-06-07 21:15 | NUR ---
Pt states that she would like a blood transfusion. States feels tired and dehydrated. Pt states that she has only had one cup of water to drink all day. Also states that she is not taking her vitamins or prescribed iron. Denies headache, denies leaking or bleeding, denies pain, denies nausea and vomitting. States she is overdue for blood transfusion. This rn unable to find records. Only record is inpatient record of one blood transfusion two weeks ago. Pt states that she doesn't know why she gets the transfusions and has only received one at this hospital, but usually gets them at another hospital.
--- NOTE | 2019-06-07 21:30 | NUR ---
Called Dr. Brandon with pt report. Discussed strip, vs, pt history, and urine. Order given to dc pt with instructions to follow up with dr hyman in am.
--- NOTE | 2019-06-07 21:40 | NUR ---
Pt informed of order for discharge. dc'd efm and toco. pt left to dress.
--- NOTE | 2019-06-07 21:50 | NUR ---
Discharge papers given to pt. papers explained and signed. pt denies questions. Pt ambulated off unit accompanied by friend. no s/s distress noted.
--- NOTE | 2019-06-09 10:42 | Physician Query-Final Dx ---
Clinic Account Progress/Dx Physician Query: Please give diagnosis Please give # weeks gestation Date of Service Jun 07, 2019 at 20:32 SHARON BURNETT Jun 09, 2019 10:42
== END 2019-06-07 21:50 | disposition home or self-care (01) ==
LOC: LDRP 20:32 → WSo 20:32
PROVIDERS: ATTEND Obstetrics & Gynecology
DX: O99.89 Other specified diseases and conditions complicating pregnancy, childbirth and the puerperium (principal); R53.83 Other fatigue; Z3A.31 31 weeks gestation of pregnancy

== ENCOUNTER 2019-08-02 15:27 | Outpatient (CLI) | payer OTHER ==
[~2019-08-02] VITALS: Ht 160 cm; Wt 76.3 kg
[~2019-08-02 15:27] MED LIST changes: +[UNRECOGNIZED DRUG - CODE] PO
[2019-08-03] MEDS ORDERED: FERR325T18 PO (10:09)
[2019-08-03] MEDS ORDERED: IBUP-844 PO (10:09)
[2019-08-03] MEDS ORDERED: GABA-488 PO (10:09)
[2019-08-03] MEDS ORDERED: ACET-93 PO (10:09)
[2019-08-03] MEDS ORDERED: DCS100C PO (10:09)
== END 2019-08-02 15:56 | disposition home or self-care (01) ==
LOC: PREOP 15:27
PROVIDERS: ATTEND Obstetrics & Gynecology
DX: Z01.818 Encounter for other preprocedural examination (principal)

== ENCOUNTER 2019-08-03 07:00 | Inpatient (IN) | payer MEDICAID, OTHER ==
[~2019-08-03] VITALS: Ht 160 cm; Wt 76.3 kg
[2019-08-03] VITALS (10 sets, daily range): BP systolic 94–133; BP diastolic 60–86
--- NOTE | 2019-08-03 06:55 | NUR ---
PRAVEENA PARK presented to unit via ambulation from home, accompanied by SO, for REPEAT CSEC. PRAVEENA PARK weighed, gowned, voided, and to bed. EFHM and TOCO applied, VS taken. PRAVEENA PARK oriented to bed controls, call light, TV, heat, and A/C controls.
[~2019-08-03 07:00] MED LIST changes: +CITRIC ACID/SOB CIT (BICITRA) 30 ML UDC ONE; +FAMOTIDINE 20MG/2ML IV (PEPCID) ONE; +LACTATED RINGERS 1,000 ML IV ONE; +METOCLOPRAMIDE INJ 10 MG/2 ML (REGLAN) ONE; +WATER (STERILE) FOR INJECTION 10 ML ONE; +ceFAZolin INJECTION 0 MG ONE; +ceFAZolin INJECTION 1,000 MG ONE; +metroNIDAZOLE 500MG/100ML IVPB 100 ML ONE
--- OUTSIDE RECORDS SUMMARY | 2019-08-03 07:05 | XMS REPORT | Continuity of Care Document ---
Author Organization Unknown Address Unknown Phone Unavailable Allergies Active Description Code Type Severity Reaction Onset Reported/Identified Relationship to Patient Clinical Status Yes No Known Drug Allergies [id number] Drug Allergy Unknown N/A 09/22/2007 Yes ciprofloxacin ciprofloxacin Drug Allergy Unknown unknown 07/31/2016 Yes ciprofloxacin [id number] Josué g Allergy Unknown N/A 06/07/2019 Yes ciprofloxacin [id number] Josué g Allergy Mild RASH 08/02/2019 Medications There is no data. Problems Date Dx Coded Attending Type Code Diagnosis Diagnosed By 05/29/2017 SHIRLENE GARDNER MD Ot R10.13 EPIGASTRIC PAIN 05/29/2017 SHIRLENE GARDNER [...] CIGARETTES, UNCOMPL 01/29/2018 JAYY POPE DO Ot N61. 1 ABSCESS OF THE BREAST AND NIPPLE 02/02/2018 JAYY POPE DO Ot F17.210 NICOTINE DEPENDENCE, CIGARETTES, UNCOMPL 02/02/2018 JAYY POPE DO Ot N61. 1 ABSCESS OF THE BREAST AND NIPPLE 03/20/2018 JOSE RUIZ MD Ot A41. 9 SEPSIS, UNSPECIFIED ORGANISM 03/20/2018 JOSE RUIZ MD Ot F17.210 NICOTINE DEPENDENCE, CIGARETTES, UNCOMPL 03/20/2018 JOSE RUIZ MD Ot H93. 92 UNSPECIFIED DISORDER OF LEFT EAR 03/20/2018 JOSE RUIZ MD Ot M41. 9 SCOLIOSIS, UNSPECIFIED 03/20/2018 JOSE RUIZ MD Ot M54. 9 DORSALGIA, UNSPECIFIED 03/20/2018 JOSE RUIZ MD Ot M79. 10 MYALGIA, UNSPECIFIED SITE 03/20/2018 JOSE RUIZ MD Ot N30. 00 ACUTE CYSTITIS WITHOUT HEMATURIA 03/20/2018 JOSE RUIZ MD Ot R07. 89 OTHER CHEST PAIN 03/20/2018 JOSE RUIZ MD Ot R11. 0 NAUSEA 03/20/2018 JOSE RUIZ MD Ot Z87. 19 PERSONAL HISTORY OF OTHER DISEASES OF 03/20/2018 JOSE RUIZ MD Ot A41. 9 SEPSIS, UNSPECIFIED ORGANISM 03/20/2018 JOSE RUIZ MD Ot F17.210 NICOTINE DEPENDENCE, CIGARETTES, UNCOMPL 03/20/2018 JOSE RUIZ MD Ot H93. 92 UNSPECIFIED DISORDER OF LEFT EAR 03/20/2018 JOSE RUIZ MD Ot M41. 9 SCOLIOSIS, UNSPECIFIED 03/20/2018 JOSE RUIZ MD Ot M54. 9 DORSALGIA, UNSPECIFIED 03/20/2018 JOSE RUIZ MD Ot M79. 10 MYALGIA, UNSPECIFIED SITE 03/20/2018 JOSE RUIZ MD Ot N30. 00 ACUTE CYSTITIS WITHOUT HEMATURIA 03/20/2018 JOSE RUIZ MD Ot R07. 89 OTHER CHEST PAIN 03/20/2018 JOSE RUIZ MD Ot R11. 0 NAUSEA 03/20/2018 JOSE RUIZ MD Ot Z87. 19 PERSONAL HISTORY OF OTHER DISEASES OF TH 03/20/2018 JOSE RUIZ MD Ot A41. 9 SEPSIS, UNSPECIFIED ORGANISM 03/20/2018 JOSE RUIZ MD Ot F17.210 NICOTINE DEPENDENCE, CIGARETTES, UNCOMPL 03/20/2018 OJSE RUIZ MD Ot H93. 92 UNSPECIFIED DISORDER OF LEFT EAR 03/20/2018 JOSE RUIZ MD Ot M41. 9 SCOLIOSIS, UNSPECIFIED 03/20/2018 JOSE RUIZ MD Ot M54. 9 DORSALGIA, UNSPECIFIED 03/20/2018 JOSE RUIZ MD Ot M79. 10 MYALGIA, UNSPECIFIED SITE 03/20/2018 JOSE RUIZ MD Ot N30. 00 ACUTE CYSTITIS WITHOUT HEMATURIA 03/20/2018 JOSE RUIZ MD Ot R07. 89 OTHER CHEST PAIN 03/20/2018 JOSE RUIZ MD Ot R11. 0 NAUSEA 03/20/2018 JOSE RUIZ MD Ot Z87. 19 PERSONAL HISTORY OF OTHER DISEASES OF TH 03/21/2018 JOSE RUIZ MD Ot A41. 9 SEPSIS, UNSPECIFIED ORGANISM 03/21/2018 JOSE RUIZ MD Ot E87. 6 HYPOKALEMIA 03/21/2018 JOSE RUIZ MD Ot F17.210 NICOTINE DEPENDENCE, CIGARETTES, UNCOMPL 03/21/2018 JOSE RUIZ MD Ot H93. 92 UNSPECIFIED DISORDER OF LEFT EAR 03/21/2018 JOSE RUIZ MD Ot M41. 9 SCOLIOSIS, UNSPECIFIED 03/21/2018 JOSE RUIZ MD Ot M54. 9 DORSALGIA, UNSPECIFIED 03/21/2018 JOSE RUIZ MD Ot M79. 10 MYALGIA, UNSPECIFIED SITE 03/21/2018 JOSE RUIZ MD Ot N30. 00 ACUTE CYSTITIS WITHOUT HEMATURIA 03/21/2018 JOSE RUIZ MD Ot R07. 89 OTHER CHEST PAIN 03/21/2018 JOSE RUIZ MD Ot R11. 0 NAUSEA 03/21/2018 JOSE RUIZ MD Ot Z87. 19 PERSONAL HISTORY OF OTHER DISEASES OF 05/26/2018 CHET CISNEROS MD Ot A41.9 SEPSIS, UNSPECIFIED ORGANISM 05/26/2018 CHET CISNEROS MD Ot D50.9 IRON DEFICIENCY ANEMIA, UNSPECIFIED 05/26/2018 CHET CISNEROS MD Ot F17.210 NICOTINE DEPENDENCE, CIGARETTES, UNCOMPL 05/26/2018 CHET CISNEROS MD Ot M41.9 SCOLIOSIS, UNSPECIFIED 05/26/2018 CHET CISNEROS MD Ot N10 ACUTE PYELONEPHRITIS 05/26/2018 CHET CISNEROS MD, Ot N70.01 ACUTE SALPINGITIS 05/26/2018 CHET CISNEROS MD, Ot Z87.19 PERSONAL HISTORY OF OTHER DISEASES OF 05/26/2018 CHET CISNEROS MD, Ot Z87.440 PERSONAL HISTORY OF URINARY (TRACT) INFE 05/26/2018 CHET CISNEROS MD, Ot Z88.1 ALLERGY STATUS TO OTHER ANTIBIOTIC AGENT 06/12/2018 BERNOT IRISH Ot S81.802A UNSPECIFIED OPEN WOUND, LEFT LOWER LEG, 06/12/2018 BERNOT, IRISH Ot X58.XXXA EXPOSURE TO OTHER SPECIFIED FACTORS, INI 06/12/2018 BERNOT, IRISH Ot S81.802A UNSPECIFIED OPEN WOUND, LEFT LOWER LEG, 06/12/2018 SANDRA ECKERTIS Ot W22.09XA STRIKING AGAINST OTHER STATIONARY OBJECT 06/13/2018 GISSELL TA, KIAN Haq Ot M79.9 SOFT TISSUE DISORDER, UNSPECIFIED 06/15/2018 BERNOTSANDRAIS Ot S81.802A UNSPECIFIED OPEN WOUND, LEFT LOWER LEG, 06/15/2018 BERNOT IRISH Ot X58.XXXA EXPOSURE TO OTHER SPECIFIED FACTORS, INI 06/16/2018 KIAN BORRERO MD Ot M79.9 SOFT TISSUE DISORDER, UNSPECIFIED 06/16/2018 KIAN BORRERO MD Ot M79.9 SOFT TISSUE DISORDER, UNSPECIFIED 10/07/2018 TOMEKA IRISH Ot D64.9 ANEMIA, UNSPECIFIED 10/07/2018 TOMEKA IRISH Ot F12.10 CANNABIS ABUSE, UNCOMPLICATED 10/07/2018 TOMEKA IRISH Ot 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 STIMULANT ABUSE, UNCOMPLICATED 10/07/2018 TOMEKA IRISH Ot F17.210 NICOTINE DEPENDENCE, CIGARETTES, UNCOMPL 10/07/2018 BERNGEOVANY IRISH Ot K59.00 CONSTIPATION, UNSPECIFIED 10/07/2018 TOMEKA IRISH Ot M41.9 SCOLIOSIS, UNSPECIFIED 10/07/2018 TOMEKA IRISH Ot R10.32 LEFT LOWER QUADRANT PAIN 10/07/2018 TOMEKA IRISH Ot Z80.3 FAMILY HISTORY OF MALIGNANT NEOPLASM OF 10/07/2018 SANDRA ECKERTIS Ot Z87.19 PERSONAL HISTORY OF OTHER DISEASES OF 10/07/2018 IRISH ECKERT Ot Z87.440 PERSONAL HISTORY OF URINARY (TRACT) INFE 10/07/2018 SANDRA ECKERTIS Ot Z87.448 PERSONAL HISTORY OF OTHER DISEASES OF UR 10/07/2018 SANDRA ECKERTIS Ot Z88.1 ALLERGY STATUS TO OTHER ANTIBIOTIC AGENT 10/07/2018 SANDRA ECKERTIS Ot Z90.89 ACQUIRED ABSENCE OF OTHER ORGANS 10/07/2018 SANDRA ECKERTIS Ot Z98.51 TUBAL LIGATION STATUS 10/07/2018 SANDRA ECKERTIS Ot Z98.890 OTHER SPECIFIED POSTPROCEDURAL STATES 10/12/2018 SANDRA ECKERTIS Ot D64.9 ANEMIA, UNSPECIFIED 10/12/2018 SANDRA ECKERTIS Ot F12.10 CANNABIS ABUSE, UNCOMPLICATED 10/12/2018 SANDRA ECKERTIS Ot 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 STIMULANT ABUSE, UNCOMPLICATED 10/12/2018 SANDRA ECKERTIS Ot F17.210 NICOTINE DEPENDENCE, CIGARETTES, UNCOMPL 10/12/2018 IRISH ECKERT Ot K59.00 CONSTIPATION, UNSPECIFIED 10/12/2018 SANDRA ECKERTIS Ot M41.9 SCOLIOSIS, UNSPECIFIED 10/12/2018 SANDRA ECKERTIS Ot R10.32 LEFT LOWER QUADRANT PAIN 10/12/2018 IRISH ECKERT Ot Z80.3 FAMILY HISTORY OF MALIGNANT NEOPLASM OF 10/12/2018 IRISH ECKERT Ot Z87.19 PERSONAL HISTORY OF OTHER DISEASES OF TH 10/12/2018 IRISH ECKERT Ot Z87.440 PERSONAL HISTORY OF URINARY (TRACT) INFE 10/12/2018 IRISH ECKERT Ot Z87.448 PERSONAL HISTORY OF OTHER DISEASES OF UR 10/12/2018 IRISH ECKERT Ot Z88.1 ALLERGY STATUS TO OTHER ANTIBIOTIC AGENT 10/12/2018 SANDRA ECKERTIS Ot Z90.89 ACQUIRED ABSENCE OF OTHER ORGANS 10/12/2018 IRISH ECKERT Ot Z98.51 TUBAL LIGATION STATUS 10/12/2018 SANDRA ECKERTIS Ot Z98.890 OTHER SPECIFIED POSTPROCEDURAL STATES 10/18/2018 IRISH ECKERT Ot D64.9 ANEMIA, UNSPECIFIED 10/18/2018 SANDRA ECKERTIS Ot F17.210 NICOTINE DEPENDENCE, CIGARETTES, UNCOMPL 10/18/2018 SANDRA ECKERTIS Ot M41.9 SCOLIOSIS, UNSPECIFIED 10/18/2018 SANDRA ECKERTIS Ot R21 RASH AND OTHER NONSPECIFIC SKIN [...] Z90.89 ACQUIRED ABSENCE OF OTHER ORGANS 10/18/2018 RIISH ECKERT Ot Z98.51 TUBAL LIGATION STATUS 10/18/2018 [...] ALLERGY STATUS TO OTHER ANTIBIOTIC AGENT 10/22/2018 BERNIRISH ARMENTA Ot Z90.89 ACQUIRED ABSENCE OF OTHER ORGANS 10/22/2018 IRISH ECKERT Ot Z98.51 TUBAL LIGATION STATUS 10/22/2018 IRISH ECKERT Ot Z98.890 OTHER SPECIFIED POSTPROCEDURAL STATES 12/08/2018 LILLIAN DEVI APRN Ot D64 .9 ANEMIA, UNSPECIFIED 12/08/2018 LILLIAN DEVI SYSTEMS TESTER Ot L02.01 CUTANEOUS ABSCESS OF FACE 12/08/2018 LILLIAN DEVI APRN Ot Z77.22 CNTCT W AND EXPSR TO ENVIRON TOBACCO SMO 12/08/2018 LILLIAN DEVI APRN Ot Z80 .3 FAMILY HISTORY OF MALIGNANT NEOPLASM OF 12/08/2018 LILLIAN DEVI APRN Ot Z82.49 FAMILY HX OF ISCHEM HEART DIS AND OTH DI 12/08/2018 LILLIAN DEVI APRN Ot Z87.440 PERSONAL HISTORY OF URINARY (TRACT) INFE 12/08/2018 LILLIAN DEVI APRN Ot Z88 .1 ALLERGY STATUS TO OTHER ANTIBIOTIC AGENT 12/08/2018 LILLIAN DEVI APRN Ot Z90.89 ACQUIRED ABSENCE OF OTHER ORGANS 12/08/2018 LILLIAN DEVI APRN Ot Z98.51 TUBAL LIGATION STATUS 12/11/2018 LILLIAN DEVI APRN Ot L02.01 CUTANEOUS ABSCESS OF FACE 12/11/2018 LILLIAN DEVI APRN Ot Z77.22 CNTCT W AND EXPSR TO ENVIRON TOBACCO SMO 12/11/2018 LILLIAN DEVI APRN Ot Z80 .3 FAMILY HISTORY OF MALIGNANT NEOPLASM OF 12/11/2018 LILLIAN DEVI APRN Ot Z82.49 FAMILY HX OF ISCHEM HEART DIS AND OTH DI 12/11/2018 LILLIAN DEVI SYSTEMS TESTER Ot Z88 .1 ALLERGY STATUS TO OTHER ANTIBIOTIC AGENT 12/11/2018 LILLIAN DEVI SYSTEMS TESTER Ot Z90.89 ACQUIRED ABSENCE OF OTHER ORGANS 12/11/2018 LILLIAN DEVI APRN Ot Z98.51 TUBAL LIGATION STATUS 12/14/2018 LILLIAN DEVI APRN Ot D64 .9 ANEMIA, UNSPECIFIED 12/14/2018 LILLIAN DEVI SYSTEMS TESTER Ot L02.01 CUTANEOUS ABSCESS OF FACE 12/14/2018 LILLIAN DEVI SYSTEMS TESTER Ot Z77.22 CNTCT W AND EXPSR TO ENVIRON TOBACCO SMO 12/14/2018 LILLIAN DEVI SYSTEMS TESTER Ot Z80 .3 FAMILY HISTORY OF MALIGNANT NEOPLASM OF 12/14/2018 LILLIAN DEVI SYSTEMS TESTER Ot Z82.49 FAMILY HX OF ISCHEM HEART DIS AND OTH DI 12/14/2018 LILLIAN DEVI APRN Ot Z87.440 PERSONAL HISTORY OF URINARY (TRACT) INFE 12/14/2018 LILLIAN DEVI SYSTEMS TESTER Ot Z88 .1 ALLERGY STATUS TO OTHER ANTIBIOTIC AGENT 12/14/2018 LILLIAN DEVI SYSTEMS TESTER Ot Z90.89 ACQUIRED ABSENCE OF OTHER ORGANS 12/14/2018 LILLIAN DEVI APRN Ot Z98.51 TUBAL LIGATION STATUS 05/11/2019 NIKKY TA, RAYMON Shelley Ot D50.9 IRON DEFICIENCY ANEMIA, UNSPECIFIED 05/13/2019 RAYMON SHER MD Ot D50.9 IRON DEFICIENCY ANEMIA, UNSPECIFIED 05/27/2019 BRENNAN DO, TESS C Ot E86.0 DEHYDRATION 05/27/2019 BRENNAN DO, TESS C Ot O99.2 83 ENDO, NUTRITIONAL AND METAB DISEASES COM 05/27/2019 BRENNAN DO, TESS C Ot Z3A.3 0 30 WEEKS GESTATION OF 05/27/2019 BRENNAN DO, TESS C Ot E86.0 DEHYDRATION 05/27/2019 BRENNAN DO, TESS C Ot O99.2 83 ENDO, NUTRITIONAL AND METAB DISEASES COM 05/27/2019 BRENNAN DO, TESS C Ot Z3A.3 0 30 WEEKS GESTATION OF 05/27/2019 BRENNAN DO, TESS C Ot Z01.8 9 ENCOUNTER FOR OTHER SPECIFIED SPECIAL EX 05/28/2019 BRENNAN DO, TESS C Ot E86.0 DEHYDRATION 05/28/2019 BRENNAN DO, TESS C Ot O99.2 83 ENDO, NUTRITIONAL AND METAB DISEASES COM 05/28/2019 BRENNAN DO, TESS C Ot Z3A.3 0 30 WEEKS GESTATION OF 05/28/2019 BRENNAN DO, TESS C Ot Z01.8 9 ENCOUNTER FOR OTHER SPECIFIED SPECIAL EX 06/08/2019 SEALS DOGEOFF Ot O99.8 9 OTH DISEASES AND CONDITIONS COMPL PREG/C 06/08/2019 SEALS DO, GEOFF E Ot R53.8 3 OTHER FATIGUE 06/08/2019 SEALS DO, GEOFF E Ot Z3A.3 1 31 WEEKS GESTATION OF 06/08/2019 SEALS DO, GEOFF E Ot O99.8 9 OTH DISEASES AND CONDITIONS COMPL PREG/C 06/08/2019 SEALS DO, GEOFF E Ot R53.8 3 OTHER FATIGUE 06/08/2019 SEALS DO, GEOFF E Ot Z3A.3 1 31 WEEKS GESTATION OF 06/11/2019 BRENNAN DO, TESS C Ot D50.9 IRON DEFICIENCY ANEMIA, UNSPECIFIED 06/11/2019 BRENNAN DO, TESS C Ot O99.0 19 ANEMIA COMPLICATING , UNSPECIFI 06/11/2019 BRENNAN DO, TESS C Ot D50.9 IRON DEFICIENCY ANEMIA, UNSPECIFIED 06/11/2019 BRENNAN DO, TESS C Ot O99.0 19 ANEMIA COMPLICATING , UNSPECIFI 06/11/2019 BRENNAN DO, TESS C Ot D50.9 IRON DEFICIENCY ANEMIA, UNSPECIFIED 06/11/2019 BRENNAN DO, TESS C Ot O99.0 19 ANEMIA COMPLICATING , UNSPECIFI 06/13/2019 BRENNAN DO, TESS C Ot D50.9 IRON DEFICIENCY ANEMIA, UNSPECIFIED 06/13/2019 BRENNAN DO, TESS C Ot O99.0 19 ANEMIA COMPLICATING , UNSPECIFI Procedures There is no data. Results Test Result Range URINALYSIS, ROUTINE - 12/27/14 21:55 UA LEUKOCYTE ESTERASE DIPSTICK 2+ NEGATIVE UA NITRITE DIPSTICK POSITIVE NEGATIVE UA PROTEIN DIPSTICK 1+ NEGATIVE UA GLUCOSE DIPSTICK NEGATIVE NEGATIVE UA KETONE DIPSTICK NEGATIVE NEGATIVE UA UROBILINOGEN DIPSTICK NORMAL ZIGGY L UA BILIRUBIN DIPSTICK NEGATIVE NEGATIVE UA BLOOD DIPSTICK TRACE NEGATIVE UA SPECIFIC GRAVITY 1.015 1.015-1.02 5 UR PH 6.0 5.0-7.0 Microbiology UA MICROSCOPIC [...] DIPSTICK 2+ NEGATIVE UA UROBILINOGEN DIPSTICK 2+ ZIGGY L UA BILIRUBIN DIPSTICK 1+ NEGATIVE UA BLOOD DIPSTICK TRACE NEGATIVE UA SPECIFIC GRAVITY 1.015 1.015-1.02 5 UR PH 6.0 5.0-7.0 Microbiology UA MICROSCOPIC [...] 27.0-33.0 MEAN CELL HGB CONCENTRATION 30.9 g/dL 32 .0-37.0 MEAN CELL VOLUME 67.8 fl 80.0-100.0 MONOCYTE # 0.4 k/cumm 0.1-1.0 MONOCYTE % 6 % 4-6 OVALOCYTES NOTED RED BLOOD CELL 4.72 m/cumm 4.00-6.00 RED CELL DISTRIBUTION WIDTH 22.4 % 11 .0-15.6 WHITE BLOOD CELL 6.6 k/cumm 5.0-10.0 HEMOGLOBIN [...] DIPSTICK 2+ NEGATIVE UA UROBILINOGEN DIPSTICK NORMAL ZIGGY L UA BILIRUBIN DIPSTICK 1+ NEGATIVE UA BLOOD DIPSTICK TRACE NEGATIVE UA SPECIFIC GRAVITY 1.015 1.015-1.02 5 UR PH 6.0 5.0-7.0 Microbiology UA MICROSCOPIC [...] 27.0-33.0 MEAN CELL HGB CONCENTRATION 30.3 g/dL 32 .0-37.0 MEAN CELL VOLUME 67.4 fl 80.0-100.0 MONOCYTE # 0.4 k/cumm 0.1-1.0 MONOCYTE % 7 % 4-6 OVALOCYTES NOTED RED BLOOD CELL 3.77 m/cumm 4.00-6.00 RED CELL DISTRIBUTION WIDTH 22.0 % 11 .0-15.6 WHITE BLOOD CELL 5.3 k/cumm 5.0-10.0 HEMOGLOBIN 7.7 gm/dL 12.0-16.0 HEMATOCRIT 25.4 % 37.0-47.0 PLATELET COUNT 284 k/cumm 150-400 Microbiology TEST, SERUM - 01/04/15 11:32 TEST, SERUM NEGATIVE NEGATIVE Microbiology METABOLIC PANEL, COMPREHN - 01/04/15 11: 32 POTASSIUM 3.5 mmol/L 3.5-5.3 EST GFR (MDRD) [...] mg/dL 0.0-1.0 ALKALINE PHOSPHATASE TOTAL 149 IU/L 45- 117 Microbiology MAGNESIUM - 01/04/15 11:32 MAGNESIUM 1.8 mg/dL 1.8-2.4 LIPASE - 01/04/15 11:32 LIPASE 123 Units/L 73-393 CHEM/HEM PROFILE-BEDSIDE - 01/04/15 12:0 2 POTASSIUM 3.4 mmol/L 3.5-5.3 METHOD Bedside ANION [...] DIPSTICK NEGATIVE NEGATIVE UA UROBILINOGEN DIPSTICK NORMAL ZIGGY L UA BILIRUBIN DIPSTICK NEGATIVE NEGATIVE UA BLOOD DIPSTICK 1+ NEGATIVE UA SPECIFIC GRAVITY 1.010 1.015-1.02 5 UR PH 8.0 5.0-7.0 UA MICROSCOPIC - [...] 27.0-33.0 MEAN CELL HGB CONCENTRATION 33.8 g/dL 32 .0-37.0 MEAN CELL VOLUME 88.8 fl 80.0-100.0 MONOCYTE # 0.6 k/cumm 0.1-1.0 MONOCYTE % 9 % 4-6 RED BLOOD CELL 3.57 m/cumm 4.00-6.00 RED CELL DISTRIBUTION WIDTH 13.5 % 11 .0-15.6 WHITE BLOOD CELL 6.9 k/cumm 5.0-10.0 HEMOGLOBIN 10.7 gm/dL 12.0-16.0 HEMATOCRIT 31.7 % 37.0-47.0 PLATELET COUNT 275 k/cumm 150-450 TEST, SERUM - 09/06/16 13:55 TEST, SERUM NEGATIVE NEGATIVE PROTHROMBIN TIME WITH INR - 09/06/16 13: 55 INTERNATIONAL NORMAL RATIO 1.1 0.9 -1.1 PROTHROMBIN TIME 12.3 sec 10.0-12.9 PARTIAL THROMBOPLASTIN TIME - 09/06/16 1 3:55 PARTIAL THROMBOPLASTIN TIME 33 sec 25 -37 METABOLIC PANEL, COMPREHN - 09/06/16 13: 55 POTASSIUM 3.1 mmol/L 3.5-5.3 EST GFR (MDRD) [...] mg/dL 0.0-1.0 ALKALINE PHOSPHATASE TOTAL 66 IU/L 45- 117 THYROID STIM HORMONE (TSH) - 09/06/16 13 :55 THYROID STIM HORMONE (TSH) 2.48 uIU/mL 0 .34-4.82 Complete urinalysis with reflex to cultu re - 05/29/17 02:40 Urine color determination YELLOW NRG Urine clarity determination SLIGHTLY CLOUDY NRG Urine pH measurement by test strip 6.5 5-9 Specific gravity of urine by test strip 1.020 1.016-1.022 Urine protein assay by test strip, semi-quantitative NEGATIVE NEGATIVE Urine glucose detection by automated test strip NE GATIVE NEGATIVE Erythrocytes detection in urine sediment by light micr oscopy 1+ NEGATIVE Urine ketones detection by automated test strip NE GATIVE NEGATIVE Urine nitrite detection by test strip NEGATIVE NEGATIVE Urine total bilirubin detection by test strip NEGA TIVE NEGATIVE Urine urobilinogen measurement by automated test strip (mass/volume) NORMAL NORMAL Urine leukocyte esterase detection by dipstick NEG ATIVE NEGATIVE Automated urine sediment erythrocyte cou nt by microscopy (number/high power field) [HPF] NRG Automated urine sediment leukocyte count by microscopy (number/high power field) NONE NRG Bacteria detection in urine sediment by light microsco py TRACE NRG Squamous epithelial cells detection in u rine sediment by light microscopy 5-10 NRG Crystals detection in urine sediment by light microsco py PRESENT NRG Casts detection in urine sediment by light microscopy NONE NRG Mucus detection in urine sediment by light microscopy SMALL NRG Complete urinalysis with reflex to culture NO NRG Amorphous sediment detection in urine sediment by ligh t microscopy FEW RAMIRO URATES NRG Urine drug screening test - 05/29/17 02: 40 Urine phencyclidine detection by screening method NEGATIVE NEGATIVE Urine benzodiazepines detection by screening method NEGATIVE NEGATIVE Urine cocaine detection NEGATIVE NEGATI VE Urine amphetamines detection by screening method N EGATIVE NEGATIVE Urine methamphetamine detection by screening method NEGATIVE NEGATIVE Urine cannabinoids detection by screening method N EGATIVE NEGATIVE Urine opiates detection by screening method NEGATI VE NEGATIVE Urine barbiturates detection NEGATIVE N EGATIVE Screening urine tricyclic antidepressants detection NEGATIVE NEGATIVE Urine methadone detection by screening method NEGA TIVE NEGATIVE Urine oxycodone detection NEGATIVE NEGA TIVE Urine propoxyphene detection NEGATIVE N EGATIVE Complete blood count (CBC) with automate d white blood cell (WBC) differential - 05/29/17 02:49 Blood leukocytes automated count (number/volume) 5.5 10*3/uL 4.3-11.0 Blood erythrocytes automated count (number/volume) 4.20 10*6/uL 4.35-5.85 Venous blood hemoglobin measurement (mass/volume) 9.7 g/dL 11.5-16.0 Blood hematocrit (volume fraction) 31 % 35-52 Automated erythrocyte mean corpuscular volume 74 [ foz_us] 80-99 Automated erythrocyte mean corpuscular h emoglobin (mass per erythrocyte) 23 pg 25-34 Automated erythrocyte mean corpuscular h emoglobin concentration measurement (mass/volume) 31 g/dL 32-36 Automated erythrocyte distribution width ratio 21. 6 % 10.0- 14.5 Automated blood platelet count [...] 10*3 1.0-4.0 Blood monocytes automated count (number/volume) 0. 6 10*3 0.0-1.0 Automated eosinophil count 0.3 10*3/uL 0 .0-0.3 Automated blood basophil count (count/volume) 0.0 10*3/uL 0.0-0.1 Serum or plasma choriogonadotropin (preg rocael test) detection - 05/29/17 02:49 Serum or plasma choriogonadotropin ( test) de tection NEGATIVE NEGATIVE Comprehensive metabolic panel - 05/29/17 02:49 Serum or plasma sodium measurement (moles/volume) 139 mmol/L 135-145 Serum or plasma potassium measurement (moles/volume) 3.5 mmol/L 3.6-5.0 Serum or plasma chloride measurement (moles/volume) 106 mmol/L 98-107 Carbon dioxide 23 mmol/L 21-32 Serum or plasma anion gap determination (moles/volume) 10 mmol/L 5-14 Serum or plasma urea nitrogen measurement (mass/volume ) 18 mg/dL 7-18 Serum or plasma creatinine measurement (mass/volume) 0.75 mg/dL 0.60-1.30 Serum or plasma urea nitrogen/creatinine mass ratio 24 NRG Serum or plasma creatinine measurement w ith calculation of estimated glomerular filtration rate > NRG Serum or plasma glucose measurement (mass/volume) 90 mg/dL 70-105 Serum or plasma calcium measurement (mass/volume) 9.0 mg/dL 8.5-10.1 Serum or plasma total bilirubin measurement (mass/volu me) 0.3 mg/dL 0.1-1.0 Serum or plasma alkaline phosphatase gael surement (enzymatic activity/volume) 67 U/L 40-136 Serum or plasma aspartate aminotransfera se measurement (enzymatic activity/volume) 22 U/L 5-34 Serum or plasma alanine aminotransferase measurement (enzymatic activity/volume) 22 U/L 0-55 Serum or plasma protein measurement (mass/volume) 7.2 g/dL 6.4-8.2 Serum or plasma albumin measurement (mass/volume) 4.2 g/dL 3.2-4.5 Lipase - 05/29/17 02:49 Lipase 42 U/L 8-78 Serum or plasma ethanol measurement (mas s/volume) - 05/29/17 02:49 Serum or plasma ethanol measurement (mass/volume) < mg/dL <10 Complete blood count (CBC) with automate d white blood cell (WBC) differential - 01/29/18 12:49 Blood leukocytes automated count (number/volume) 10.1 10*3/uL 4.3-11.0 Blood erythrocytes automated count (number/volume) 3.96 10*6/uL 4.35-5.85 Venous blood hemoglobin measurement (mass/volume) 10.6 g/dL 11.5-16.0 Blood hematocrit (volume fraction) 32 % 35-52 Automated erythrocyte mean corpuscular volume 80 [ foz_us] 80-99 Automated erythrocyte mean corpuscular h emoglobin (mass per erythrocyte) 27 pg 25-34 Automated erythrocyte mean corpuscular h emoglobin concentration measurement (mass/volume) 33 g/dL 32-36 Automated erythrocyte distribution width ratio 22. 0 % 10.0- 14.5 Automated blood platelet count [...] 10*3 1.0-4.0 Blood monocytes automated count (number/volume) 0. 6 10*3 0.0-1.0 Automated eosinophil count 0.1 10*3/uL 0 .0-0.3 Automated blood basophil count (count/volume) 0.0 10*3/uL 0.0-0.1 Whole blood basic metabolic panel - 01/11 12:49 Serum or plasma sodium measurement (moles/volume) 140 mmol/L 135-145 Serum or plasma potassium measurement (moles/volume) 3.8 mmol/L 3.6-5.0 Serum or plasma chloride measurement (moles/volume) 107 mmol/L 98-107 Carbon dioxide 25 mmol/L 21-32 Serum or plasma anion gap determination (moles/volume) 8 mmol/L 5-14 Serum or plasma urea nitrogen measurement (mass/volume ) 15 mg/dL 7-18 Serum or plasma creatinine measurement (mass/volume) 0.72 mg/dL 0.60-1.30 Serum or plasma urea nitrogen/creatinine mass ratio 21 NRG Serum or plasma creatinine measurement w ith calculation of estimated glomerular filtration rate > NRG Serum or plasma glucose measurement (mass/volume) 82 mg/dL 70-105 Serum or plasma calcium measurement (mass/volume) 9.6 mg/dL 8.5-10.1 Serum or plasma choriogonadotropin (preg rocael test) detection - 01/29/18 12:49 Serum or plasma choriogonadotropin ( test) de tection NEGATIVE NEGATIVE Bacterial blood culture - 01/29/18 12:49 Bacterial blood culture NG NRG Methicillin resistant Staphylococcus aur eus (MRSA) screening culture - 01/29/18 13:25 MRSA SCREEN RESULT MRSA ISOLATED NRG Bacterial blood culture - 01/29/18 13:48 Bacterial blood culture NG NRG Urine drug screening test - 01/29/18 14: 20 Urine phencyclidine detection by screening method NEGATIVE NEGATIVE Urine benzodiazepines detection by screening method NEGATIVE NEGATIVE Urine cocaine detection NEGATIVE NEGATI VE Urine amphetamines detection by screening method P OSITIVE NEGATIVE Urine methamphetamine detection by screening method NEGATIVE NEGATIVE Urine cannabinoids detection by screening method P OSITIVE NEGATIVE Urine opiates detection by screening method NEGATI VE NEGATIVE Urine barbiturates detection NEGATIVE N EGATIVE Screening urine tricyclic antidepressants detection NEGATIVE NEGATIVE Urine methadone detection by screening method NEGA TIVE NEGATIVE Urine oxycodone detection NEGATIVE NEGA TIVE Urine propoxyphene detection NEGATIVE N EGATIVE Bacteria identification in isolate by an aerobe culture - 01/29/18 16:37 Bacteria identification in isolate by anaerobe culture NOMARGARETH NRG Gram stain microscopy - 01/29/18 16:37 Gram stain microscopy REPORTED 01-30-2018,[id number]. NRG Bacteria identification in wound by cult ure - 01/29/18 16:37 Bacteria identification in wound by culture SEE RE PORT NRG FREE TEXT EXTERNAL METHICILLIN-RESISTANT STAPH AUR EUS NRG QUANTITY OF GROWTH . NRG RML Sensitivity Panel - 01/29/18 16:37 Oxacillin susceptibility test by minimum inhibitory co ncentration R NRG Clindamycin susceptibility test by minimum inhibitory concentration <= NRG Erythromycin susceptibility test by minimum inhibitory concentration > NRG Trimethoprim/sulfamethoxazole susceptibi lity test by minimum inhibitoryconcentration S NRG Vancomycin susceptibility test by minimum inhibitory c oncentration 1 NRG Levofloxacin susceptibility test by minimum inhibitory concentration 4 NRG Rifampin susceptibility test by minimum inhibitory con centration <= NRG Cefazolin susceptibility test by minimum inhibitory co ncentration > NRG Linezolid susceptibility test by minimum inhibitory co ncentration 2 NRG Penicillin G susceptibility test by minimum inhibitory concentration > NRG Moxifloxacin susceptibility test by minimum inhibitory concentration S NRG Minocycline susc SHAYNA <= NRG Complete urinalysis with reflex to cultu re - 03/19/18 15:50 Urine color determination YELLOW NRG Urine clarity determination VERY CLOUDY NRG Urine pH measurement by test strip 6.5 5-9 Specific gravity of urine by test strip 1.010 1.016-1.022 Urine protein assay by test strip, semi-quantitative 4+ NEGATIVE Urine glucose detection by automated test strip NE GATIVE NEGATIVE Erythrocytes detection in urine sediment by light micr oscopy 4+ NEGATIVE Urine ketones detection by automated test strip 1+ NEGATIVE Urine nitrite detection by test strip POSITIVE NEGATIVE Urine total bilirubin detection by test strip NEGA TIVE NEGATIVE Urine urobilinogen measurement by automated test strip (mass/volume) 4 mg/dL NORMAL Urine leukocyte esterase detection by dipstick 3+ NEGATIVE Automated urine sediment erythrocyte cou nt by microscopy (number/high power field) [HPF] NRG Automated urine sediment leukocyte count by microscopy (number/high power field) TNTC NRG Bacteria detection in urine sediment by light microsco py LARGE NRG Squamous epithelial cells detection in u rine sediment by light microscopy 10-25 NRG Crystals detection in urine sediment by light microsco py NONE NRG Casts detection in urine sediment by light microscopy NONE NRG Mucus detection in urine sediment by light microscopy NEGATIVE NRG Complete urinalysis with reflex to culture YES NRG Bacterial urine culture - 03/19/18 15:50 Bacterial urine culture [id number] NRG COLONY COUNT >100,000/ML NRG FTX;REPORTABLE SUSCEPTIBILITY REPORTED 03-21-2018, 1005 NRG RML Sensitivity Panel - 03/19/18 15:50 Gentamicin susceptibility test by minimum inhibitory c oncentration <= NRG Trimethoprim/sulfamethoxazole susceptibi lity test by minimum inhibitoryconcentration > NRG Levofloxacin susceptibility test by minimum inhibitory concentration <= NRG Ampicillin susceptibility test by minimum inhibitory c oncentration > NRG Cefazolin susceptibility test by minimum inhibitory co ncentration 2 NRG Ceftriaxone susceptibility test by minimum inhibitory concentration <= NRG Ciprofloxacin susceptibility test by minimum inhibitor y concentration <= NRG Meropenem susceptibility test by minimum inhibitory co ncentration <= NRG Nitrofurantoin susceptibility test by mi nimum inhibitory concentration <= NRG Amoxicillin and clavulanate potassium susc SHAYNA = NRG Complete blood count (CBC) with automate d white blood cell (WBC) differential - 03/19/18 16:10 Blood leukocytes automated count (number/volume) 18.7 10*3/uL 4.3-11.0 Blood erythrocytes automated count (number/volume) 4.35 10*6/uL 4.35-5.85 Venous blood hemoglobin measurement (mass/volume) 10.7 g/dL 11.5-16.0 Blood hematocrit (volume fraction) 33 % 35-52 Automated erythrocyte mean corpuscular volume 75 [ foz_us] 80-99 Automated erythrocyte mean corpuscular h emoglobin (mass per erythrocyte) 25 pg 25-34 Automated erythrocyte mean corpuscular h emoglobin concentration measurement (mass/volume) 33 g/dL 32-36 Automated erythrocyte distribution width ratio 21. 0 % 10.0- 14.5 Automated blood platelet count [...] 10*3 1.0-4.0 Blood monocytes automated count (number/volume) 1. 5 10*3 0.0-1.0 Automated eosinophil count 0.0 10*3/uL 0 .0-0.3 Automated blood basophil count (count/volume) 0.0 10*3/uL 0.0-0.1 Blood lactic acid measurement (moles/vol ume) - 03/19/18 16:10 Blood lactic acid measurement (moles/volume) 2.13 mmol/L 0.50-2.00 Bacterial blood culture - 03/19/18 16:10 Bacterial blood culture NG NRG Bacterial blood culture - 03/19/18 16:20 Bacterial blood culture NG NRG Influenza virus A and B antigen detectio n - 03/19/18 16:30 FLU RESULT NEGATIVE FOR INFLUENZA A AND B ANTIGENS BY IA [facility] Serum or plasma lactate measurement (mol es/volume) - 03/19/18 18:13 Serum or plasma lactate measurement (moles/volume) 0.83 mmol/L 0.50-2.00 Complete blood count (CBC) with automate d white blood cell (WBC) differential - 03/20/18 06:10 Blood leukocytes automated count (number/volume) 12.7 10*3/uL 4.3-11.0 Blood erythrocytes automated count (number/volume) 3.41 10*6/uL 4.35-5.85 Venous blood hemoglobin measurement (mass/volume) 8.3 g/dL 11.5-16.0 Blood hematocrit (volume fraction) 26 % 35-52 Automated erythrocyte mean corpuscular volume 77 [ foz_us] 80-99 Automated erythrocyte mean corpuscular h emoglobin (mass per erythrocyte) 24 pg 25-34 Automated erythrocyte mean corpuscular h emoglobin concentration measurement (mass/volume) 31 g/dL 32-36 Automated erythrocyte distribution width ratio 19. 9 % 10.0- 14.5 Automated blood platelet count [...] 10*3 1.0-4.0 Blood monocytes automated count (number/volume) 0. 9 10*3 0.0-1.0 Automated eosinophil count 0.0 10*3/uL 0 .0-0.3 Automated blood basophil count (count/volume) 0.0 10*3/uL 0.0-0.1 Comprehensive metabolic panel - 03/20/18 06:10 Serum or plasma sodium measurement (moles/volume) 137 mmol/L 135-145 Serum or plasma potassium measurement (moles/volume) 2.9 mmol/L 3.6-5.0 Serum or plasma chloride measurement (moles/volume) 113 mmol/L 98-107 Carbon dioxide 18 mmol/L 21-32 Serum or plasma anion gap determination (moles/volume) 6 mmol/L 5-14 Serum or plasma urea nitrogen measurement (mass/volume ) 12 mg/dL 7-18 Serum or plasma creatinine measurement (mass/volume) 0.68 mg/dL 0.60-1.30 Serum or plasma urea nitrogen/creatinine mass ratio 18 NRG Serum or plasma creatinine measurement w ith calculation of estimated glomerular filtration rate > NRG Serum or plasma glucose measurement (mass/volume) 108 mg/dL 70-105 Serum or plasma calcium measurement (mass/volume) 7.8 mg/dL 8.5-10.1 Serum or plasma total bilirubin measurement (mass/volu me) 0.5 mg/dL 0.1-1.0 Serum or plasma alkaline phosphatase gael surement (enzymatic activity/volume) 62 U/L 40-136 Serum or plasma aspartate aminotransfera se measurement (enzymatic activity/volume) 15 U/L 5-34 Serum or plasma alanine aminotransferase measurement (enzymatic activity/volume) 12 U/L 0-55 Serum or plasma protein measurement (mass/volume) 4.7 g/dL 6.4-8.2 Serum or plasma albumin measurement (mass/volume) 2.8 g/dL 3.2-4.5 CALCIUM CORRECTED 8.8 mg/dL 8.5-10.1 Magnesium - 03/20/18 06:10 Magnesium 1.5 mg/dL 1.8-2.4 Complete urinalysis with reflex to cultu re - 05/24/18 15:18 Urine color determination YELLOW NRG Urine clarity determination SLIGHTLY CLOUDY NRG Urine pH measurement by test strip 6 5-9 Specific gravity of urine by test strip 1.010 1.016-1.022 Urine protein assay by test strip, semi-quantitative 3+ NEGATIVE Urine glucose detection by automated test strip NE GATIVE NEGATIVE Erythrocytes detection in urine sediment by light micr oscopy 5+ NEGATIVE Urine ketones detection by automated test strip NE GATIVE NEGATIVE Urine nitrite detection by test strip NEGATIVE NEGATIVE Urine total bilirubin detection by test strip NEGA TIVE NEGATIVE Urine urobilinogen measurement by automated test strip (mass/volume) NORMAL NORMAL Urine leukocyte esterase detection by dipstick 3+ NEGATIVE Automated urine sediment erythrocyte cou nt by microscopy (number/high power field) [HPF] NRG Automated urine sediment leukocyte count by microscopy (number/high power field) [HPF] NRG Bacteria detection in urine sediment by light microsco py NEGATIVE NRG Squamous epithelial cells detection in u rine sediment by light microscopy 5-10 NRG Crystals detection in urine sediment by light microsco py NONE NRG Casts detection in urine sediment by light microscopy NONE NRG Mucus detection in urine sediment by light microscopy NEGATIVE NRG Complete urinalysis with reflex to culture YES NRG Bacterial urine culture - 05/24/18 15:18 Bacterial urine culture [id number] NRG COLONY COUNT >100,000/ML NRG FREE TEXT ENTRY 2 RML SENT SENSITIVITY 05/26 08:05 NRG FREE TEXT ENTRY 3 RML SENT ID REPORT 05/25 16:05 NRG RML Sensitivity Panel - 05/24/18 15:18 Gentamicin susceptibility test by minimum inhibitory c oncentration < NRG Trimethoprim/sulfamethoxazole susceptibi lity test by minimum inhibitoryconcentration > NRG Levofloxacin susceptibility test by minimum inhibitory concentration <= NRG Ampicillin susceptibility test by minimum inhibitory c oncentration > NRG Cefazolin susceptibility test by minimum inhibitory co ncentration 2 NRG Ceftriaxone susceptibility test by minimum inhibitory concentration <= NRG Ciprofloxacin susceptibility test by minimum inhibitor y concentration <= NRG Meropenem susceptibility test by minimum inhibitory co ncentration <= NRG Nitrofurantoin susceptibility test by mi nimum inhibitory concentration <= NRG Amoxicillin and clavulanate potassium susc SHAYNA = NRG Complete blood count (CBC) with automate d white blood cell (WBC) differential - 05/24/18 15:25 Blood leukocytes automated count (number/volume) 15.1 10*3/uL 4.3-11.0 Blood erythrocytes automated count (number/volume) 3.78 10*6/uL 4.35-5.85 Venous blood hemoglobin measurement (mass/volume) 8.2 g/dL 11.5-16.0 Blood hematocrit (volume fraction) 27 % 35-52 Automated erythrocyte mean corpuscular volume 71 [ foz_us] 80-99 Automated erythrocyte mean corpuscular h emoglobin (mass per erythrocyte) 22 pg 25-34 Automated erythrocyte mean corpuscular h emoglobin concentration measurement (mass/volume) 31 g/dL 32-36 Automated erythrocyte distribution width ratio 20. 3 % 10.0- 14.5 Automated blood platelet count [...] 10*3 1.0-4.0 Blood monocytes automated count (number/volume) 1. 7 10*3 0.0-1.0 Automated eosinophil count 0.0 10*3/uL 0 .0-0.3 Automated blood basophil count (count/volume) 0.0 10*3/uL 0.0-0.1 Comprehensive metabolic panel - 05/24/18 15:25 Serum or plasma sodium measurement (moles/volume) 136 mmol/L 135-145 Serum or plasma potassium measurement (moles/volume) 3.5 mmol/L 3.6-5.0 Serum or plasma chloride measurement (moles/volume) 104 mmol/L 98-107 Carbon dioxide 18 mmol/L 21-32 Serum or plasma anion gap determination (moles/volume) 14 mmol/L 5-14 Serum or plasma urea nitrogen measurement (mass/volume ) 20 mg/dL 7-18 Serum or plasma creatinine measurement (mass/volume) 0.85 mg/dL 0.60-1.30 Serum or plasma urea nitrogen/creatinine mass ratio 24 NRG Serum or plasma creatinine measurement w ith calculation of estimated glomerular filtration rate > NRG Serum or plasma glucose measurement (mass/volume) 93 mg/dL 70-105 Serum or plasma calcium measurement (mass/volume) 9.1 mg/dL 8.5-10.1 Serum or plasma total bilirubin measurement (mass/volu me) 0.6 mg/dL 0.1-1.0 Serum or plasma alkaline phosphatase gael surement (enzymatic activity/volume) 69 U/L 40-136 Serum or plasma aspartate aminotransfera se measurement (enzymatic activity/volume) 21 U/L 5-34 Serum or plasma alanine aminotransferase measurement (enzymatic activity/volume) 24 U/L 0-55 Serum or plasma protein measurement (mass/volume) 7.2 g/dL 6.4-8.2 Serum or plasma albumin measurement (mass/volume) 4.2 g/dL 3.2-4.5 CALCIUM CORRECTED 8.9 mg/dL 8.5-10.1 Blood manual differential performed dete ction - 05/24/18 15:25 Blood monocytes/100 leukocytes 6 % NRG Manual blood segmented neutrophils/100 leukocytes 85 % NRG Blood band neutrophils/100 leukocytes 0 % NRG Manual blood lymphocytes/100 leukocytes 9 % NRG Manual eosinophils/100 leukocytes in nose 0 % NRG Manual blood basophils/100 leukocytes 0 % NRG Blood anisocytosis detection by light microscopy M ODERATE NRG Blood hypochromia detection by light microscopy MA RKED NRG Blood microcytes detection by light microscopy MOD ERATE NRG Serum or plasma choriogonadotropin (preg rocael test) detection - 05/24/18 15:25 Serum or plasma choriogonadotropin ( test) de tection NEGATIVE NEGATIVE Blood lactic acid measurement (moles/vol ume) - 05/24/18 18:08 Blood lactic acid measurement (moles/volume) 1.03 mmol/L 0.50-2.00 Bacterial blood culture - 05/24/18 18:08 Bacterial blood culture NG NRG Bacterial blood culture - 05/24/18 19:00 Bacterial blood culture NG NRG Microscopic examination by wet preparati on - 05/24/18 19:53 WET PREP RESULTS 05/24 20:14 BY Henrietta GALAN NRG Neisseria gonorrhoeae DNA detection by p robe and signal amplification method - 05/24/18 19:53 Gonorrhea amp DNA-urine Not Detected No t Detected Chlamydia trachomatis DNA detection by p robe and signal amplification method - 05/24/18 19:53 Chlamydia trachomatis DNA detection by p robe and target amplification method Not Detected Not Detected Complete blood count (CBC) with automate d white blood cell (WBC) differential - 05/25/18 05:33 Blood leukocytes automated count (number/volume) 9.0 10*3/uL 4.3-11.0 Blood erythrocytes automated count (number/volume) 3.20 10*6/uL 4.35-5.85 Venous blood hemoglobin measurement (mass/volume) 7.0 g/dL 11.5-16.0 Blood hematocrit (volume fraction) 23 % 35-52 Automated erythrocyte mean corpuscular volume 73 [ foz_us] 80-99 Automated erythrocyte mean corpuscular h emoglobin (mass per erythrocyte) 22 pg 25-34 Automated erythrocyte mean corpuscular h emoglobin concentration measurement (mass/volume) 30 g/dL 32-36 Automated erythrocyte distribution width ratio 20. 6 % 10.0- 14.5 Automated blood platelet count [...] 10*3 1.0-4.0 Blood monocytes automated count (number/volume) 1. 0 10*3 0.0-1.0 Automated eosinophil count 0.1 10*3/uL 0 .0-0.3 Automated blood basophil count (count/volume) 0.0 10*3/uL 0.0-0.1 Serum iron and total iron binding capaci ty panel - 05/25/18 05:33 Serum or plasma iron measurement (mass/volume) < % 35-180 Total iron binding capacity and transferrin saturation measurement < % 15-50 Iron binding capacity [mass/volume] in serum or plasma < % 280-380 UIBC (unsaturated iron binding capacity) 370 % 55-450 Serum or plasma ferritin measurement (mass/volume) 63.2 % 20.0-177.0 Whole blood basic metabolic panel - 05/12 08/28 05:53 Serum or plasma sodium measurement (moles/volume) 139 mmol/L 135-145 Serum or plasma potassium measurement (moles/volume) 3.6 mmol/L 3.6-5.0 Serum or plasma chloride measurement (moles/volume) 109 mmol/L 98-107 Carbon dioxide 21 mmol/L 21-32 Serum or plasma anion gap determination (moles/volume) 9 mmol/L 5-14 Serum or plasma urea nitrogen measurement (mass/volume ) 18 mg/dL 7-18 Serum or plasma creatinine measurement (mass/volume) 0.75 mg/dL 0.60-1.30 Serum or plasma urea nitrogen/creatinine mass ratio 24 NRG Serum or plasma creatinine measurement w ith calculation of estimated glomerular filtration rate > NRG Serum or plasma glucose measurement (mass/volume) 92 mg/dL 70-105 Serum or plasma calcium measurement (mass/volume) 8.3 mg/dL 8.5-10.1 Complete urinalysis with reflex to cultu re - 10/07/18 19:10 Urine color determination YELLOW NRG Urine clarity determination CLEAR NR G Urine pH measurement by test strip 6.5 5-9 Specific gravity of urine by test strip 1.020 1.016-1.022 Urine protein assay by test strip, semi-quantitative NEGATIVE NEGATIVE Urine glucose detection by automated test strip NE GATIVE NEGATIVE Erythrocytes detection in urine sediment by light micr oscopy 3+ NEGATIVE Urine ketones detection by automated test strip NE GATIVE NEGATIVE Urine nitrite detection by test strip NEGATIVE NEGATIVE Urine total bilirubin detection by test strip NEGA TIVE NEGATIVE Urine urobilinogen measurement by automated test strip (mass/volume) NORMAL NORMAL Urine leukocyte esterase detection by dipstick NEG ATIVE NEGATIVE Automated urine sediment erythrocyte cou nt by microscopy (number/high power field) [HPF] NRG Automated urine sediment leukocyte count by microscopy (number/high power field) NONE NRG Bacteria detection in urine sediment by light microsco py NEGATIVE NRG Squamous epithelial cells detection in u rine sediment by light microscopy 5-10 NRG Crystals detection in urine sediment by light microsco py NONE NRG Casts detection in urine sediment by light microscopy NONE NRG Mucus detection in urine sediment by light microscopy NEGATIVE NRG Complete urinalysis with reflex to culture NO NRG Complete blood count (CBC) with automate d white blood cell (WBC) differential - 10/07/18 19:25 Blood leukocytes automated count (number/volume) 8.0 10*3/uL 4.3-11.0 Blood erythrocytes automated count (number/volume) 4.37 10*6/uL 4.35-5.85 Venous blood hemoglobin measurement (mass/volume) 10.0 g/dL 11.5-16.0 Blood hematocrit (volume fraction) 32 % 35-52 Automated erythrocyte mean corpuscular volume 74 [ foz_us] 80-99 Automated erythrocyte mean corpuscular h emoglobin (mass per erythrocyte) 23 pg 25-34 Automated erythrocyte mean corpuscular h emoglobin concentration measurement (mass/volume) 31 g/dL 32-36 Automated erythrocyte distribution width ratio TNP 10.0- 14.5 Automated blood platelet count (count/volume) 284 10*3/uL [...] 10*3 1.0-4.0 Blood monocytes automated count (number/volume) 0. 6 10*3 0.0-1.0 Automated eosinophil count 0.3 10*3/uL 0 .0-0.3 Automated blood basophil count (count/volume) 0.1 10*3/uL 0.0-0.1 Serum or plasma choriogonadotropin (preg rocael test) detection - 10/07/18 19:25 Serum or plasma choriogonadotropin ( test) de tection NEGATIVE NEGATIVE Comprehensive metabolic panel - 10/07/18 19:25 Serum or plasma sodium measurement (moles/volume) 139 mmol/L 135-145 Serum or plasma potassium measurement (moles/volume) 3.8 mmol/L 3.6-5.0 Serum or plasma chloride measurement (moles/volume) 105 mmol/L 98-107 Carbon dioxide 26 mmol/L 21-32 Serum or plasma anion gap determination (moles/volume) 8 mmol/L 5-14 Serum or plasma urea nitrogen measurement (mass/volume ) 18 mg/dL 7-18 Serum or plasma creatinine measurement (mass/volume) 0.73 mg/dL 0.60-1.30 Serum or plasma urea nitrogen/creatinine mass ratio 25 NRG Serum or plasma creatinine measurement w ith calculation of estimated glomerular filtration rate > NRG Serum or plasma glucose measurement (mass/volume) 68 mg/dL 70-105 Serum or plasma calcium measurement (mass/volume) 9.8 mg/dL 8.5-10.1 Serum or plasma total bilirubin measurement (mass/volu me) 0.1 mg/dL 0.1-1.0 Serum or plasma alkaline phosphatase gael surement (enzymatic activity/volume) 70 U/L 40-136 Serum or plasma aspartate aminotransfera se measurement (enzymatic activity/volume) 17 U/L 5-34 Serum or plasma alanine aminotransferase measurement (enzymatic activity/volume) 14 U/L 0-55 Serum or plasma protein measurement (mass/volume) 6.7 g/dL 6.4-8.2 Serum or plasma albumin measurement (mass/volume) 4.2 g/dL 3.2-4.5 CALCIUM CORRECTED 9.6 mg/dL 8.5-10.1 Lipase - 10/07/18 19:25 Lipase 56 U/L 8-78 Tick identification panel - 10/18/18 15: 29 Serum Ehrlichia chaffeensis IgG antibody detection 1:32 <1:16 Serum Ehrlichia chaffeensis IgM antibody detection <1:10 <1:10 Serum Rickettsia rickettsii IgG antibody assay (units/ volume) < <1:16 [place] spotted fever panel < <1:10 Francisella tularensis antibody assay 1:40 NRG LYME AB G M 0.11 % 0.00-0.89 Interpretation of Lyme disease antibody assay Nega tive Negative Gram stain microscopy - 12/08/18 19:13 Gram stain microscopy No bacteria seen NRG Bacteria identification in wound by cult ure - 12/08/18 19:13 Bacteria identification in wound by culture [id number] NRG FREE TEXT EXTERNAL METHICILLIN-RESISTANT STAPH AUR EUS NRG QUANTITY OF GROWTH SMALL AMOUNT NRG FREE TEXT ENTRY 2 NO INDUCIBLE CLINDAMYCIN RESISTA NCE NRG FREE TEXT ENTRY 3 SUSCEPTIBILITY REPORTED 12/10/18 1 2:25 NRG Dirithromycin susceptibility test by dis k diffusion - 12/08/18 19:13 Oxacillin susceptibility test by minimum inhibitory co ncentration > NRG Clindamycin susceptibility test by minimum inhibitory concentration <= NRG Erythromycin susceptibility test by minimum inhibitory concentration > NRG Trimethoprim/sulfamethoxazole susceptibi lity test by minimum inhibitoryconcentration <= NRG Vancomycin susceptibility test by minimum inhibitory c oncentration 1 NRG Levofloxacin susceptibility test by minimum inhibitory concentration 4 NRG Rifampin susceptibility test by minimum inhibitory con centration <= NRG Cefazolin susceptibility test by minimum inhibitory co ncentration > NRG Linezolid susceptibility test by minimum inhibitory co ncentration 2 NRG Penicillin G susceptibility test by minimum inhibitory concentration > NRG Moxifloxacin susceptibility test by minimum inhibitory concentration 2 NRG Minocycline susc SHAYNA <= NRG HCG, QUANTITATIVE - 12/09/18 10:23 HCG, TOTAL, QN 4742 mIU/mL NRG HCG, QUANTITATIVE - 12/11/18 08:46 [place], [place] [address] mIU/mL NRG ANTIBODY SCREEN - 02/24/19 14:36 ANTIBODY SCREEN, RBC W/REFL ID, TITER AND AG POSIT CHANG NRG ANTIBODY ID, TITER, AND TYPING, RBC - 10:26 ANTIBODY IDENTIFICATION: ANTI-BIG K NEG ATIVE COMMENT NRG TITER SEE BELOW NRG MATERNAL SERUM AFP - 03/24/19 10:26 Maternal Weight 138 lbs NRG Est'd Date of Delivery 08/06/2019 NRG GISELA Determined by ULTRASOUND NRG Mother's Ethnic Origin NRG Number of Fetuses 1 NRG Insulin Depend Diabetic NO NRG Repeat Specimen NO NRG Hx Of Neural Tube Defects NO NRG Prev Down Synd NO NRG Donor Egg NO NRG Donor Age: Egg Retrieval NOT GIVEN NRG INTERPRETATION: NRG Risk for ONTD 1 IN 1294 NRG AFP, Serum 93.5 ng/mL NRG AFP MoM 1.43 NRG COMMENTS: NRG COMMENT NRG Calc'd Gestational Age 20.7 weeks NRG ANTIBODY ID, TITER, AND TYPING, RBC - 14:44 ANTIBODY IDENTIFICATION: ANTI-BIG K NEG ATIVE COMMENT NRG TITER SEE BELOW NRG ANTIBODY SCREEN - 04/28/19 14:44 ANTIBODY SCREEN, RBC W/REFL ID, TITER AND AG POSIT CHANG NRG Complete urinalysis with reflex to cultu re - 05/08/19 20:30 Urine color determination YELLOW NRG Urine clarity determination SL CLOUDY N RG Urine pH measurement by test strip 7.0 5-9 Specific gravity of urine by test strip 1.025 1.016-1.022 Urine protein assay by test strip, semi-quantitative NEGATIVE NEGATIVE Urine glucose detection by automated test strip NE GATIVE NEGATIVE Erythrocytes detection in urine sediment by light micr oscopy NEGATIVE NEGATIVE Urine ketones detection by automated test strip NE GATIVE NEGATIVE Urine nitrite detection by test strip NEGATIVE NEGATIVE Urine total bilirubin detection by test strip NEGA TIVE NEGATIVE Urine urobilinogen measurement by automated test strip (mass/volume) 0.2 mg/dL < = 1.0 Urine leukocyte esterase detection by dipstick NEG ATIVE NEGATIVE Automated urine sediment erythrocyte cou nt by microscopy (number/high power field) NONE NRG Automated urine sediment leukocyte count by microscopy (number/high power field) RARE NRG Bacteria detection in urine sediment by light microsco py TRACE NRG Squamous epithelial cells detection in u rine sediment by light microscopy 10-25 NRG Crystals detection in urine sediment by light microsco py PRESENT NRG Casts detection in urine sediment by light microscopy NONE NRG Mucus detection in urine sediment by light microscopy NEGATIVE NRG Complete urinalysis with reflex to culture NO NRG Amorphous sediment detection in urine sediment by ligh t microscopy MOD RAMIRO PHOSPHATE NRG Complete blood count (CBC) with automate d white blood cell (WBC) differential - 05/08/19 20:35 Blood leukocytes automated count (number/volume) 10.4 10*3/uL 4.3-11.0 Blood erythrocytes automated count (number/volume) 3.59 10*6/uL 4.35-5.85 Venous blood hemoglobin measurement (mass/volume) 7.8 g/dL 11.5-16.0 Blood hematocrit (volume fraction) 26 % 35-52 Automated erythrocyte mean corpuscular volume 72 [ foz_us] 80-99 Automated erythrocyte mean corpuscular h emoglobin (mass per erythrocyte) 22 pg 25-34 Automated erythrocyte mean corpuscular h emoglobin concentration measurement (mass/volume) 30 g/dL 32-36 Automated erythrocyte distribution width ratio 18. 6 % 10.0- 14.5 Automated blood platelet count (count/volume) 197 10*3/uL 130-400 Automated blood platelet mean volume measurement 11.4 [foz_us] 7.4-10.4 Automated blood neutrophils/100 leukocytes 70 % 42-75 Automated blood lymphocytes/100 leukocytes 20 % 12-44 Blood monocytes/100 leukocytes 8 % 0-12 Automated blood eosinophils/100 leukocytes 1 % 0-10 Automated blood basophils/100 leukocytes 0 % 0-10 Blood neutrophils automated count (number/volume) 7.3 10*3 1.8-7.8 Blood lymphocytes automated count (number/volume) 2.1 10*3 1.0-4.0 Blood monocytes automated count (number/volume) 0. 8 10*3 0.0-1.0 Automated eosinophil count 0.1 10*3/uL 0 .0-0.3 Automated blood basophil count (count/volume) 0.0 10*3/uL 0.0-0.1 Comprehensive metabolic panel - 05/08/19 20:35 Serum or plasma sodium measurement (moles/volume) 137 mmol/L 135-145 Serum or plasma potassium measurement (moles/volume) 3.2 mmol/L 3.6-5.0 Serum or plasma chloride measurement (moles/volume) 107 mmol/L 98-107 Carbon dioxide 18 mmol/L 21-32 Serum or plasma anion gap determination (moles/volume) 12 mmol/L 5-14 Serum or plasma urea nitrogen measurement (mass/volume ) 10 mg/dL 7-18 Serum or plasma creatinine measurement (mass/volume) 0.66 mg/dL 0.60-1.30 Serum or plasma urea nitrogen/creatinine mass ratio 15 NRG Serum or plasma creatinine measurement w ith calculation of estimated glomerular filtration rate > NRG Serum or plasma glucose measurement (mass/volume) 77 mg/dL 70-105 Serum or plasma calcium measurement (mass/volume) 9.2 mg/dL 8.5-10.1 Serum or plasma total bilirubin measurement (mass/volu me) 0.2 mg/dL 0.1-1.0 Serum or plasma alkaline phosphatase gael surement (enzymatic activity/volume) 79 U/L 40-136 Serum or plasma aspartate aminotransfera se measurement (enzymatic activity/volume) 13 U/L 5-34 Serum or plasma alanine aminotransferase measurement (enzymatic activity/volume) 10 U/L 0-55 Serum or plasma protein measurement (mass/volume) 6.7 g/dL 6.4-8.2 Serum or plasma albumin measurement (mass/volume) 3.6 g/dL 3.2-4.5 CALCIUM CORRECTED 9.5 mg/dL 8.5-10.1 Magnesium - 05/08/19 20:35 Magnesium 1.6 mg/dL 1.6-2.4 RED CELLS LEUKO REDUCED AS1 - 05/08/19 2 0:35 RED CELLS LEUKO REDUCED AS1 P RSMD TRFSD 05/11/19 1340 NRG Blood type T Indirect antibody screen [facility] - 05/08/19 20:35 WRISTBAND NUMBER [id number] NRG ABO+Rh group OP NRG Blood group antibody screen NEGATIVE NR G Complete blood count (CBC) with automate d white blood cell (WBC) differential - 06/10/19 09:04 Blood leukocytes automated count (number/volume) 11.0 10*3/uL 4.3-11.0 Blood erythrocytes automated count (number/volume) 3.57 10*6/uL 4.35-5.85 Venous blood hemoglobin measurement (mass/volume) 8.0 g/dL 11.5-16.0 Blood hematocrit (volume fraction) 26 % 35-52 Automated erythrocyte mean corpuscular volume 73 [ foz_us] 80-99 Automated erythrocyte mean corpuscular h emoglobin (mass per erythrocyte) 22 pg 25-34 Automated erythrocyte mean corpuscular h emoglobin concentration measurement (mass/volume) 31 g/dL 32-36 Automated erythrocyte distribution width ratio 21. 7 % 10.0- 14.5 Automated blood platelet count (count/volume) 201 10*3/uL 130-400 Automated blood platelet mean volume measurement 10.9 [foz_us] 7.4-10.4 Automated blood neutrophils/100 leukocytes 74 % 42-75 Automated blood lymphocytes/100 leukocytes 16 % 12-44 Blood monocytes/100 leukocytes 8 % 0-12 Automated blood eosinophils/100 leukocytes 2 % 0-10 Automated blood basophils/100 leukocytes 0 % 0-10 Blood neutrophils automated count (number/volume) 8.1 10*3 1.8-7.8 Blood lymphocytes automated count (number/volume) 1.8 10*3 1.0-4.0 Blood monocytes automated count (number/volume) 0. 9 10*3 0.0-1.0 Automated eosinophil count 0.2 10*3/uL 0 .0-0.3 Automated blood basophil count (count/volume) 0.0 10*3/uL 0.0-0.1 RED CELLS LEUKO REDUCED AS1 - 06/10/19 0 9:04 RED CELLS LEUKO REDUCED AS1 T RANSFUSED 06/10/19 1941 NRG Blood type T Indirect antibody screen [facility] - 06/10/19 09:04 WRISTBAND NUMBER [id number] NRG ABO+Rh group OP NRG Blood group antibody screen NEGATIVE NR G K Ag - 06/10/19 09:04 K Ag K NRG RED CELLS LEUKO REDUCED AS1 - 06/10/19 1 4:19 RED CELLS LEUKO REDUCED AS1 T RANSFUSED 06/11/19 0018 NRG ABO+Rh group - 06/10/19 14:19 ABO+Rh group OP NRG TRANSFUSION REACTION BB TESTS - 06/10/19 14:19 ABO+Rh group O POS RED CELL NRG ABO+Rh group [id number] NRG ABO+Rh group OK NRG ABO+Rh group NORMAL NRG Blood leukocytes automated count (number/volume) N O CHANGE NRG Bacterial blood culture NOT INDICATED N RG Patient symptomsSpost transfusion reaction PAIN @ IV SITE NRG AppearanceSpost transfusion reaction NEGATIVE NRG Appearance NEGATIVE NRG Direct antiglobulin test.poly specific reagentSpos NEGATIVE NRG Direct antiglobulin test.poly specific reagent NOT INDICATED NRG Direct antiglobulin test.IgG specific reagent NOT INDICATED NRG Direct antiglobulin test.complement C3 specific re NOT INDICATED NRG Complete urinalysis with reflex to cultu re - 06/10/19 14:50 Urine color determination YELLOW NRG Urine clarity determination CLEAR NR G Urine pH measurement by test strip 7.0 5-9 Specific gravity of urine by test strip 1.020 1.016-1.022 Urine protein assay by test strip, semi-quantitative NEGATIVE NEGATIVE Urine glucose detection by automated test strip NE GATIVE NEGATIVE Erythrocytes detection in urine sediment by light micr oscopy NEGATIVE NEGATIVE Urine ketones detection by automated test strip NE GATIVE NEGATIVE Urine nitrite detection by test strip NEGATIVE NEGATIVE Urine total bilirubin detection by test strip NEGA TIVE NEGATIVE Urine urobilinogen measurement by automated test strip (mass/volume) 0.2 mg/dL < = 1.0 Urine leukocyte esterase detection by dipstick NEG ATIVE NEGATIVE Automated urine sediment erythrocyte cou nt by microscopy (number/high power field) NONE NRG Automated urine sediment leukocyte count by microscopy (number/high power field) NONE NRG Bacteria detection in urine sediment by light microsco py TRACE NRG Squamous epithelial cells detection in u rine sediment by light microscopy 2-5 NRG Crystals detection in urine sediment by light microsco py NONE NRG Casts detection in urine sediment by light microscopy NONE NRG Mucus detection in urine sediment by light microscopy NEGATIVE NRG Complete urinalysis with reflex to culture NO NRG Radiology Report from CARLITO on 01/05/20 11:38:00 DIAGNOSTIC TERRANCE GING REPORT [facility] - [address] [address] PHONE #: [phone] FAX #: [phone] Name: YESSY RODRIGUEZ Loc: [facility] Radiology No: : 1985 Age: 29 Sex: F Status: REG ER Unit No: [id number] Phys: AMYAngie SantoyoGrey Acct: [id number] Reason For Exam: abdominal pain Exam Date: 01/04/2015 EXAMS: CPT CODE: [id number] CT ABD/PELVIS WITH CONTRAST 49129 REASON FOR EXAM: Abdominal pain. TIME OF [...] 1 Signed Report (CONTINUED) DIAGNOSTIC IMAGING REPORT [facility] - [address] [place] [address] PHONE #: [phone] FAX #: [phone] Name: YESSY RODRIGUEZ Loc: [facility] Radiology No: : 1985 Age: 29 Sex: F Status: REG ER Unit No: [id number] Phys: Grey Prather DO Acct: [id number] Reason For Exam: polina for Exam: abdominal pain Exam Date: 01/04/2015 EXAMS: CPT CODE: [id number] CT ABD/PELVIS WITH CONTRAST 61769 <Continued> noted bilaterally. No perinephric inflammatory changes [...] BRANDON SANDHU; COLTEN CUELLAR Transcribed Date/Time: 01/04/2015 (3070)Bait Maker: MIRA Printed Date/Time: 01/04/2015 (4092) BATCH NO: N/A PAGE 2 Signed Report Radiology Report from SHARLA on 2016 15:39:00 DIAGNOSTIC TERRANCE GING REPORT [facility] - [address] [place] [address] PHONE #: [phone] FAX #: [phone] Name: YESS[facility]IGUEZ [facility]: : 1985 Age: 30 Sex: F Status: REG ER Unit No: [id number] Phys: Colt Mcclendon DO Acct: [id number] Reason For Exam: heavy VB Exam Date: 09/06/2016 EXAMS: CPT CODE: [id number] SONO PELVIS 54426 [id number] TRANSVAGINAL NON-OB 22595 HISTORY: Heavy vaginal bleeding COMPARISON: None. FINDINGS: [...] MD CC: Colt Aparicio DO Technologist: PROBE: [id number]; ESEQUIEL JORDANTIEVeronica Transcribed Date/Time: 09/06/2016 (8756)Bait Maker: SANDI Printed Date/Time: 09/06/2016 (0244) BATCH NO: N/A PAGE 1 Signed Report Radiology Report from SHARLA on 2016 15:39:00 DIAGNOSTIC TERRANCE GING REPORT [facility] - [address] [place] [address] PHONE #: [phone] FAX #: [phone] Name: YESSY RODRIGUEZ Loc: [facility] Radiology No: : 1985 Age: 30 Sex: F Status: REG ER Unit No: [id number] Phys: Colt Mcclendon DO Acct: [id number] Reason For Exam: heavy VB Exam Date: 09/06/2016 EXAMS: CPT CODE: [id number] SONO PELVIS [address] [id number] TRANSVAGINAL NON-OB 14283 HISTORY: Heavy vaginal bleeding COMPARISON: None. FINDINGS: [...] MD CC: Colt Aparicio DO Technologist: PROBE: [id number]; ESEQUIEL GUZMAN Transcribed Date/Time: 09/06/2016 (1533)Bait Maker: SANDI Printed Date/Time: 09/06/2016 (9832) BATCH NO: N/A PAGE 1 Signed Report Encounters ACCT No. Visit Date/Time Discharge Status Pt. Type Provider Facility Loc./Unit Complaint [id number] 05/07/2019 07:40:00 05/07/2019 23:59: 59 [facility] [id number] 04/28/2019 13:20:00 Document Registration [id number] 03/24/2019 09:20:00 Document Registration [id number] 02/24/2019 13:40:00 Document Registration [id number] 12/11/2018 09:20:00 Document Registration [id number] 12/09/2018 10:00:00 Document Registration [id number] 08/02/2019 15:27:00 15:56:00 DIS Outpatient TESS BRENNAN DO Via [facility] PREOP PREVIOUS [id number] 06/10/2019 08:00:00 11:45:00 DIS Outpatient TESS BRENNAN DO Via [facility] BLOOD TRANSFUSION [id number] 06/07/2019 20:32:00 21:50:00 DIS Outpatient GEOFF DE LEON DO [facility] TIRED,STATES SHE IS DEH YDRATED [id number] 05/26/2019 11:58:00 11:05:00 DIS Inpatient TESS BRENNAN DO [facility] LDRP IV FLUIDS [id number] 05/26/2019 14:36:00 23:59:59 CLS Outpatient TESS BRENNAN DO [facility] LABNPT [id number] 05/11/2019 13:17:00 15:30:00 DIS Outpatient NIKKY TA, RAYMON Shelley [facility] D50.9 [id number] 05/08/2019 20:13:00 22:02:00 DIS Emergency KENDRA TA, SHIRLENE Jackson [facility] ER SOA / LIGHT HEA DED / WEAK - 27 WKS PREG [id number] 04/02/2019 16:04:00 16:26:00 DIS Emergency CONGVENSTNANI BURGER DO [facility] ER FS SOB,THROWING UP ,5 MONTHS [id number] 12/08/2018 18:50:00 19:32:00 DIS Emergency LILLIAN DEVI APRN [facility] ER WOUND ON FOREHEAD [id number] 10/18/2018 14:54:00 16:23:00 DIS Emergency IRISH ECKERT [facility] ER RASH ALL OVER [id number] 10/07/2018 18:53:00 05/29/2 019 21:34:00 DIS Emergency IRISH ECKERT [facility] ER ABD PAIN [id number] 06/13/2018 12:08:00 019 12:40:00 DIS Emergency GISSELL TA, KIAN Haq [facility] ER POSS STAPH ON L LEG [id number] 06/12/2018 20:39:00 019 21:21:00 DIS Emergency IRISH ECKERT [facility] ER L LEG POSS STAPH INFECT ION/WOUND [id number] 06/12/2018 17:05:00 019 17:16:00 DIS Emergency IRISH ECKERT [facility] ER L LEG POSS STAPH INFECT ION/WOUND [id number] 05/24/2018 20:00:00 019 14:55:00 DIS Inpatient BLAYNE TA, CHET Whipple [facility] 4TH PYELONEPHRITIS, HYDROSALPYRX [id number] 03/19/2018 17:23:00 018 11:50:00 DIS Inpatient JOSEPH TA, JOSE Whipple [facility] 4TH SEPSIS, UTI [id number] 01/29/2018 12:54:00 018 19:55:00 DIS [facility] [id number] 12/01/2017 17:13:00 018 18:01:00 DIS Emergency IRISH ECKERT [facility] ER L HAND INJ [id number] 05/29/2017 02:30:00 018 06:20:00 DIS Emergency KENDRA TA, SHIRLENE Jackson [facility] ER LEFT SIDE ABD P AIN [id number] 08/03/2019 07:00:00 P EN Preadmit TESS BRENNAN DO REVIOUS [id number] 11/09/2016 16:32:00 017 16:58:00 DIS Emergency Colt Aparicio DO [facility] WRolandoEDW [id number] 09/06/2016 12:52:00 017 16:30:00 DIS Emergency Secrist DO, [facility] W.EDW [id number] 07/31/2016 16:36:00 017 16:56:00 DIS Emergency Stiven Moralez DO [facility] W.EDW [id number] 01/11/2016 08:16:00 016 08:47:00 DIS Emergency Marc TA, [facility] W.EDW [id number] 12/28/2015 19:32:00 016 20:25:00 DIS Emergency Marc TA, [facility] W.EDW [id number] 11/28/2015 08:04:00 016 08:30:00 DIS Emergency [facility] [id number] 01/04/2015 09:52:00 015 13:04:00 DIS Emergency Santoyo DO, [facility] W.HANNAH [id number] 01/01/2015 09:22:00 015 12:40:00 DIS Emergency Secrist DO, [facility] W.EDW [id number] 12/27/2014 21:37:00 015 23:13:00 DIS Emergency Marc TA, [facility] W.EDW [id number] 09/17/2014 10:42:00 015 11:10:00 DIS Emergency Stiven Moralez DO [facility] WEDS
[2019-08-03] MEDS ORDERED: NS IV 500 ML 500 ML IV SCH (07:16)
[2019-08-03] MEDS ORDERED: ceFAZolin INJECTION 1,000 MG in WATER (STERILE) FOR INJECTION 10 ML IV ONE (07:30)
[2019-08-03] MEDS ORDERED: metroNIDAZOLE 500MG/100ML IVPB 100 ML IV ONE (07:30)
[2019-08-03 07:40] LABS: BASOPHILS % (AUTO) 0 % (0-10); EOSINOPHILS # (AUTO) 0.3 10^3/uL (0.0-0.3); EOSINOPHILS % (AUTO) 2 % (0-10); HEMATOCRIT 31 % (35-52); HEMOGLOBIN 10.4 G/DL (11.5-16.0); LYMPHOCYTES # (AUTO) 1.7 X 10^3 (1.0-4.0); LYMPHOCYTES % (AUTO) 16 % (12-44); MEAN CORPUSCULAR HEMOGLOBIN 28 PG (25-34); MEAN CORPUSCULAR HGB CONC 34 G/DL (32-36); MEAN CORPUSCULAR VOLUME 82 FL (80-99); MEAN PLATELET VOLUME 11.2 FL (7.4-10.4); MONOCYTES # (AUTO) 0.9 X 10^3 (0.0-1.0); MONOCYTES % (AUTO) 8 % (0-12); NEUTROPHILS # (AUTO) 7.7 X 10^3 (1.8-7.8); NEUTROPHILS % (AUTO) 73 % (42-75); PLATELET COUNT 184 10^3/uL (130-400); RED CELL DISTRIBUTION WIDTH 24.5 % (10.0-14.5); WHITE BLOOD COUNT 10.6 10^3/uL (4.3-11.0)
[2019-08-03] MEDS ORDERED: OXYTOCIN PRE-MIX DRIP 500 ML IV SCH (08:30)
[2019-08-03] MEDS ORDERED: MEASLES,MUMPS,RUBELLA 1 EA INJ SC SCH (08:30)
[2019-08-03] MEDS ORDERED: TETANUS,DIPTH,PERTUSS P/F (BOOSTRIX) 0.5 ML VIAL IM SCH (08:30)
[2019-08-03] MEDS ORDERED: ONDANSETRON 4 MG/2 ML (SDV) Z0FRAN IVP PRN (08:30)
[2019-08-03] MEDS ORDERED: GABAPENTIN 600 MG (NEURONTIN) TAB PO NR (08:30)
[2019-08-03] MEDS ORDERED: OXYTOCIN PRE-MIX DRIP 1,000 ML IV ONE (08:42)
--- NOTE | 2019-08-03 08:42 | Progress Note-Pre Operative ---
Pre-Operative Progress Note H&P Reviewed The H&P was reviewed, patient examined and no changes noted. Date Seen by Provider: Aug 03, 2019 Time Seen by Provider: 07:40 Date H&P Reviewed: Aug 03, 2019 Time H&P Reviewed: 07:15 Pre-Operative Diagnosis: previous section, 39 2/7 weeks, history of abnormal antibody TESS BRENNAN DO Aug 03, 2019 08:42
[2019-08-03] MEDS ORDERED: fentaNYL INJECTION 100 MCG/2 ML AMP ONE (08:43)
[2019-08-03] MEDS ORDERED: BUPIVACAINE 0.5% 30 ML (SENSORCAINE) VIAL ONE (09:18)
--- NOTE | 2019-08-03 10:02 | Cesarean Section Operative ---
Procedure Procedure Note Pre-operative Diagnosis: Yessy Rodriguez is a 33 /Para 9 / 4,Gestational Age 39 2/7 weeks with history of previous section. unfavorable cervix, abnormal antibodies (anti-K), low ferritin with iron def anemia, requiring transfusion during Post-operative Diagnosis: same, malpresentation at time of delivery (vertex with forehead presentation) Procedure: Repeat low transverse section Physician: TESS BRENNAN Estimated blood loss: 600 mL Disposition: stable Findings: Viable male infant, Apgars 8/9, weight pending, intact placenta, 3vc, normal appearing uterus, tubes, and ovaries. nuchal/body cord delivered through Indications:Yessy Rodriguez is a 33 /Para 9 / 4,Gestational Age 39 2/7 weeks with history of previous section. unfavorable cervix, abnormal antibodies (anti-K), low ferritin with iron def anemia, requiring transfusion du ring . She had opted for TOLAC, but her cervix was not favorable and the fetus was ballotable so TOLAC not allowed by our protocol. Presented today for repeat CS. Hgb 10.4 today. Due to history of substance abuse, patient is concerned about post operative narcotics. given Gabapentin 600 mg x 1 and will continue 300 mg bid x 3 days post operative. Procedure Details: The patient was seen in pre-op and the procedure was discussed with the patient in full, including the risks, benefits, and alternatives. All questions were answered. The patient was taken to the operating room and a time out was performed, verifying patient and procedure. After spinal anesthesia was placed by our anesthesia colleagues, the patient was placed in the dorsal supine with leftward tilt for uterine displacement.~ Her abdomen was then prepped and draped in the typical sterile fashion. A Pfannenstiel skin incision was made using a scalpel and carried down through the underlying fascia. The fascia was incised in the midline and tented up using Bronson clamps. On both the inferior and superior fascia side the rectus muscle was dissected off bluntly and sharply using Rothman scissors. The peritoneum was identified and entered bluntly in the midline. This was then stretched laterally using manual strength. After entering the abdominal cavity and confirming lack of intraperitoneal adhesions, a large Ruddy retractor was placed and the lower uterine segment was visualized. The vesicouterine peritoneum was advanced over the lower uterine segment. A bladder flap was created with the use of Metzenbaum scissors.~ A scalpel was utilized to make a low transverse uterine incision. Amniotomy was performed with an Allis clamp with return of clear fluid. The infant's head was grasped and brought to the level of the incision. Fundal pressure was applied and infant was delivered without difficulty. However, due to the malpresentation, the silastic suction was used to help facilitate the deliver of the head. There was a nuchal/body cord delivered through. Mouth and nares were suctioned with bulb suction. After the umbilical cord was clamped and cut, the was handed off to the pediatric staff. A sample of cord blood was then obtained. The placenta was delivered intact via uterine massage. The uterus was cleared of all clots and debris. The uterine incision was closed using 0 Vicryl in a running locked fashion. A second imbricated layer was placed using 0 Vicryl in a running fashion as well. The bilateral tubes and ovaries appeared normal. The abdominal gutters were cleared of all clots and debris. A final check of the uterine incision showed it to be hemostatic. The peritoneum was closed using 3-0 Vicryl in a running fashion. The fascia was closed with 0 Vicryl in a running fashion. The subcutaneous space was hemostatic, and irrigated. The subcutaneous space was closed with 3-0 Vicryl in several single interrupted stitches. The skin was then closed using 4-0 Monocryl in a running subcuticular fashion. The skin edges were reapproximated together and were hemostatic. surgical glue was placed. A dressing was applied. All sponge, lap and needle counts were correct at the end of the procedure per nursing. Vitals - Labs Labs Laboratory Tests 08/03/19 07:25: White Blood Count 10.6, Red Blood Count 3.75L, Hemoglobin 10.4L, Hematocrit 31L, Mean Corpuscular Volume 82, Mean Corpuscular Hemoglobin 28, Mean Corpuscular Hemoglobin Concent 34, Red Cell Distribution Width 24.5H, Platelet Count 184, Mean Platelet Volume 11.2H, Neutrophils (%) (Auto) 73, Lymphocytes (%) (Auto) 16, Monocytes (%) (Auto) 8, Eosinophils (%) (Auto) 2, Basophils (%) (Auto) 0, Neutrophils # (Auto) 7.7, Lymphocytes # (Auto) 1.7, Monocytes # (Auto) 0.9, Eosinophils # (Auto) 0.3, Basophils # (Auto) 0.0 TESS BRENNAN DO Aug 03, 2019 10:02
[2019-08-03] MEDS ORDERED: DCS100C PO (10:09)
[2019-08-03] MEDS ORDERED: IBUP-844 PO (10:09)
[2019-08-03] MEDS ORDERED: ACET-93 PO (10:09)
[2019-08-03] MEDS ORDERED: FERR325T18 PO (10:09)
[2019-08-03] MEDS ORDERED: GABA-488 PO (10:09)
--- NOTE | 2019-08-03 10:11 | Discharge Inst-Women's Service ---
Discharge Inst-Women's Serv Depart Medication/Instructions New, Converted or Re-Newed RX: Transmitted to Pharmacy Instructions continue gabapentin until gone (2 more days) iron daily colace once or twice daily increase fluids and fiber intake nothing in the vagina for 4-6 weeks no lifting over 25 lbs no driving for 1 week Final Diagnosis previous section malpresentation iron def anemia acute blood loss anemia abnormal blood antibody (anti-K ) Problems Reviewed?: Yes Consults/Follow Up Additional Follow Up: Yes (1-2 weeks with Cyn; can do a phone follow up if having no issues. 6 week post exam) Activity Activity: Activity as Tolerated Driving Instructions: No Driving for 1 Week NO SMOKING: NO SMOKING Nothing Inside Vagina: No Douching, No [place], No Tampons Diet Discharge Diet: No Restrictions Symptoms to Report to : Swelling Increased, Bleeding Excessive, Pain Increased, Fever Over 101 Degrees F, Vaginal Bleeding Increase, Cramps in Feet or Legs, Vaginal Discharge Foul For Any Problems or Questions: Contact Your Physician Skin/Wound Care Infection Signs and Symptoms: Increased Redness, Foul Odor of Wound, Increased Drainage, Skin Itchy or Has a Rash, Increased Swelling, Temperature Above 101 F Operative Area Clean and Dry: Keep Incision Clean/Dry Stitches/Crescent/Dermabond: Dermabond Bathing Instructions: TESS Henson DO Aug 03, 2019 10:11
--- NOTE | 2019-08-03 10:13 | Short Stay Summary ---
Discharge Summary Hospital Course Was the Problem List Reviewed?: Yes Hospital Course Date of Admission: Aug 03, 2019 at 07:00 Admission Diagnosis : [facility] Date of [facility]: 08/03/19 Discharge Diagnosis: [ ] Hospital Course: [ ] Labs and Pending Lab Test: Laboratory Tests 08/03/19 07:25: White Blood Count 10.6, Red Blood Count 3.75L, Hemoglobin 10.4L, Hematocrit 31L, Mean Corpuscular Volume 82, Mean Corpuscular Hemoglobin 28, Mean Corpuscular Hemoglobin Concent 34, Red Cell Distribution Width 24.5H, Platelet Count 184, Mean Platelet Volume 11.2H, Neutrophils (%) (Auto) 73, Lymphocytes (%) (Auto) 16, Monocytes (%) (Auto) 8, Eosinophils (%) (Auto) 2, Basophils (%) (Auto) 0, Neutrophils # (Auto) 7.7, Lymphocytes # (Auto) 1.7, Monocytes # (Auto) 0.9, Eosinophils # (Auto) 0.3, Basophils # (Auto) 0.0 Home Meds Active Dok (Docusate Sodium) 100 Mg Capsule 100 Mg PO BID Gabapentin 300 Mg Capsule 300 Mg PO BID 2 Days Acetaminophen 500 Mg Tablet 1,000 Mg PO Q8HR Ibu (Ibuprofen) 600 Mg Tablet 600 Mg PO Q6HR Ferrous Sulfate 325 Mg Tablet 325 Mg PO DAILY@0700 Discharge Instructions Discharge Diet: No Restrictions Activity as Tolerated: Yes Discharge Physical Examination Allergies: Coded Allergies: ciprofloxacin (Unverified Allergy, Mild, RASH, 08/02/19) Discharge Summary Date of Admission Aug 03, 2019 at 07:00 Date of Discharge Clinical Quality Measures DVT/VTE Risk/Contraindication: Risk Factor Score Per Nursin RFS Level Per Nursing on Admit: 2=Moderate TESS BRENNAN DO Aug 03, 2019 10:13
[2019-08-03] MEDS ORDERED: MISOPROSTOL 200 MCG (CYTOTEC) TABLET ONE (10:17)
[2019-08-03] MEDS ORDERED: MISOPROSTOL 200 MCG (CYTOTEC) TABLET PR ONE (10:45)
[2019-08-03 11:12] LABS: BILIRUBIN,URINE NEGATIVE (NEGATIVE); CLARITY,URINE CLEAR; COLOR,URINE YELLOW; GLUCOSE, URINE (UA) NEGATIVE (NEGATIVE); KETONES,URINE NEGATIVE (NEGATIVE); LEUKOCYTE ESTERASE ,URINE NEGATIVE (NEGATIVE); NITRITE,URINE NEGATIVE (NEGATIVE); PROTEIN,URINE NEGATIVE (NEGATIVE)
[2019-08-03 11:25] LABS: BACTERIA,URINE MODERATE /HPF; WBC,URINE RARE /HPF
[2019-08-03] MEDS: KETOROLAC 30 MG/ML VIAL IV SCH ×2 (12:08→18:51)
[2019-08-03] MEDS: ACETAMINOPHEN 500 MG TAB (TYLENOL) PO SCH ×2 (14:29→22:32)
--- NOTE | 2019-08-03 14:45 | NUR ---
Pt assisted up to bathroom without incident, +void noted. Pericare performed, fresh gown applied. Pt wants to go see infant at this time. Pt ambulates to nsy accompanied by RN to see . No s/s of distress noted.
[2019-08-03] MEDS: GABAPENTIN 300 MG (NEURONTIN) CAP PO SCH ×2 (14:54→22:32)
--- NOTE | 2019-08-03 16:27 | NUR ---
Dr. Clemente called and notified of pt c/o pain 12/19 despite all available meds given. Order rec'd for 2mg IV morphine now and may repeat in 4hrs if needed
[2019-08-03] MEDS ORDERED: morphine INJ 10 MG/ML 1ML (SYR OR VIAL) IVP STA (16:29)
[2019-08-03] MEDS ORDERED: morphine INJ 4 MG/ML 1 ML (VIAL/SYRINGE) ONE (16:29)
[2019-08-03] MEDS: DOCUSATE SODIUM 100 MG (COLACE) CAP PO SCH ×2 (20:39→21:19)
[2019-08-03] MEDS: CATHETER FLUSH 10 ML SYR IV SCH (20:40)
[2019-08-03] MEDS ORDERED: GABAPENTIN 300 MG (NEURONTIN) CAP PO SCH ×2 (21:00)
[2019-08-04 00:56] VITALS: BP 126/77
[2019-08-04] MEDS: CATHETER FLUSH 10 ML SYR IV SCH ×2 (00:56→06:07)
[2019-08-04] MEDS: KETOROLAC 30 MG/ML VIAL IV SCH ×2 (00:56→06:07)
[2019-08-04 03:15] VITALS: BP 124/82
[2019-08-04] MEDS ORDERED: MILK OF MAGNESIA 400 MG/5 ML 30 ML UDC PO PRN (05:00)
[2019-08-04 06:00] LABS: BASOPHILS % (AUTO) 0 % (0-10); EOSINOPHILS # (AUTO) 0.3 10^3/uL (0.0-0.3); EOSINOPHILS % (AUTO) 3 % (0-10); HEMATOCRIT 24 % (35-52); HEMOGLOBIN 7.9 G/DL (11.5-16.0); LYMPHOCYTES # (AUTO) 1.6 X 10^3 (1.0-4.0); LYMPHOCYTES % (AUTO) 14 % (12-44); MEAN CORPUSCULAR HEMOGLOBIN 27 PG (25-34); MEAN CORPUSCULAR HGB CONC 33 G/DL (32-36); MEAN CORPUSCULAR VOLUME 82 FL (80-99); MEAN PLATELET VOLUME 11.1 FL (7.4-10.4); MONOCYTES # (AUTO) 0.8 X 10^3 (0.0-1.0); MONOCYTES % (AUTO) 7 % (0-12); NEUTROPHILS # (AUTO) 8.6 X 10^3 (1.8-7.8); NEUTROPHILS % (AUTO) 76 % (42-75); PLATELET COUNT 154 10^3/uL (130-400); RED CELL DISTRIBUTION WIDTH 24.5 % (10.0-14.5); WHITE BLOOD COUNT 11.4 10^3/uL (4.3-11.0)
[2019-08-04] MEDS ORDERED: SIMETHICONE 80 MG (MYLICON) CHEW ONE (06:04)
[2019-08-04] MEDS: ACETAMINOPHEN 500 MG TAB (TYLENOL) PO SCH ×2 (06:07→17:04)
[2019-08-04] MEDS ORDERED: SIMETHICONE 80 MG (MYLICON) CHEW PO PRN (06:15)
--- NOTE | 2019-08-04 07:28 | Postpartum Progress Note ---
Post Op Post-operative Day #1 s/p RLTCS, chronic iron def anemia, history of substance abuse. Subjective: Patient is without complaints. Ambulating, voiding after ray removed. Tolerating a regular diet without nausea or vomiting. Normal lochia. Pain is well controlled with oral pain medications. Passing flatus. [] feeding. [] Objective: 08/03/19 08/04/19 08/04/19 20:25 00:56 03:15 Temp 37.0 36.2 36.4 Pulse 78 77 80 Resp 18 18 18 B/P (MAP) 128/79 (95) 126/77 (93) 124/82 (96) Pulse Ox 98 97 97 O2 Delivery Room Air Room Air Room Air Laboratory Tests Test 08/03/19 08:00 08/04/19 05:41 Range/Units Urine Color YELLOW Urine Clarity CLEAR Urine pH 7.0 5-9 Urine Specific Carmen 1.020 1.016-1.022 Urine Protein NEGATIVE NEGATIVE Urine Glucose (UA) NEGATIVE NEGATIVE Urine Ketones NEGATIVE NEGATIVE Urine Nitrite NEGATIVE NEGATIVE Urine Bilirubin NEGATIVE NEGATIVE Urine Urobilinogen 0.2 < = 1.0 MG/DL Urine Leukocyte Esterase NEGATIVE NEGATIVE Urine RBC (Auto) NEGATIVE NEGATIVE Urine RBC NONE /HPF Urine WBC RARE /HPF Urine Squamous Epithelial Cells 10-25 H /HPF Urine Crystals NONE /LPF Urine Bacteria MODERATE H /HPF Urine Casts NONE /LPF Urine Mucus SMALL H /LPF Urine Culture Indicated YES White Blood Count 11.4 H 4.3-11.0 10^3/uL Red Blood Count 2.90 L 4.35-5.85 10^6/uL Hemoglobin 7.9 #L 11.5-16.0 G/DL Hematocrit 24 L 35-52 % Mean Corpuscular Volume 82 80-99 FL Mean Corpuscular Hemoglobin 27 25-34 PG Mean Corpuscular Hemoglobin Concent 33 32-36 G/DL Red Cell Distribution Width 24.5 H 10.0-14.5 % Platelet Count 154 130-400 10^3/uL Mean Platelet Volume 11.1 H 7.4-10.4 FL Neutrophils (%) (Auto) 76 H 42-75 % Lymphocytes (%) (Auto) 14 12-44 % Monocytes (%) (Auto) 7 0-12 % Eosinophils (%) (Auto) 3 0-10 % Basophils (%) (Auto) 0 0-10 % Neutrophils # (Auto) 8.6 H 1.8-7.8 X 10^3 Lymphocytes # (Auto) 1.6 1.0-4.0 X 10^3 Monocytes # (Auto) 0.8 0.0-1.0 X 10^3 Eosinophils # (Auto) 0.3 0.0-0.3 10^3/uL Basophils # (Auto) 0.0 0.0-0.1 10^3/uL Physical Exam: General - Alert and oriented, no apparent distress Abdomen - Soft, appropriately tender to palpation, non-distended, fundus firm at umbilicus Incision - clean, dry and intact; no erythema or induration, no drainage Extremities - no edema, negative Darrius's bilaterally [] Assessment: [] post-operative day # [], status post []. Recovering well, hemodynamically stable Acute blood loss anemia [] Plan: Routine post-operative care. Encourage breast feeding. Encourage ambulation. VTE prophylaxis: SCDs. Ferrous sulfate supplementation. Plan for discharge [] Vitals - Labs Vital Signs - I&O Vital Signs Date Time Temp Pulse Resp B/P (MAP) Pulse Ox O2 Delivery O2 Flow Rate FiO2 08/04/19 03:15 36.4 80 18 124/82 (96) 97 Room Air 08/04/19 00:56 36.2 77 18 126/77 (93) 97 Room Air 08/03/19 20:25 37.0 78 18 128/79 (95) 98 Room Air 08/03/19 18:08 Room Air 08/03/19 16:15 36.7 99 18 133/86 (102) 98 Room Air 08/03/19 12:00 36.8 94 18 131/82 (98) 99 Room Air 08/03/19 10:48 36.3 20 106/74 (85) 100 Room Air 08/03/19 10:48 Room Air 08/03/19 10:33 36.1 12 114/78 (90) 99 Room Air 08/03/19 10:33 Room Air 08/03/19 10:18 36.3 18 97/72 (80) 99 Room Air 08/03/19 10:18 Room Air 08/03/19 10:03 36.1 12 99/60 (73) 97 Room Air 08/03/19 10:03 Room Air 08/03/19 09:48 Room Air 08/03/19 09:48 36.7 18 94/66 (75) 100 Room Air 08/03/19 08:00 79 18 124/81 (95) I & O 08/04/19 07:00 Intake Total 1000 ml Output Total 2050 ml Balance -1050 ml Labs Laboratory Tests 08/03/19 08:00: Urine Color YELLOW, Urine Clarity CLEAR, Urine pH 7.0, Urine Specific Carmen 1.020, Urine Protein NEGATIVE, Urine Glucose (UA) NEGATIVE, Urine Ketones NEGATIVE, Urine Nitrite NEGATIVE, Urine Bilirubin NEGATIVE, Urine Urobilinogen 0.2, Urine Leukocyte Esterase NEGATIVE, Urine RBC (Auto) NEGATIVE, Urine RBC NONE, Urine WBC RARE, Urine Squamous Epithelial Cells 10-25H, Urine Crystals NONE, Urine Bacteria MODERATEH, Urine Casts NONE, Urine Mucus SMALLH, Urine Culture Indicated YES 08/04/19 05:41: White Blood Count 11.4H, Red Blood Count 2.90L, Hemoglobin 7.9#L, Hematocrit 24L , Mean Corpuscular Volume 82, Mean Corpuscular Hemoglobin 27, Mean Corpuscular Hemoglobin Concent 33, Red Cell Distribution Width 24.5H, Platelet Count 154, M jenise Platelet Volume 11.1H, Neutrophils (%) (Auto) 76H, Lymphocytes (%) (Auto) 14, Monocytes (%) (Auto) 7, Eosinophils (%) (Auto) 3, Basophils (%) (Auto) 0, Neutrophils # (Auto) 8.6H, Lymphocytes # (Auto) 1.6, Monocytes # (Auto) 0.8, Eosinophils # (Auto) 0.3, Basophils # (Auto) 0.0 TESS BRENNAN DO Aug 04, 2019 07:28
[2019-08-04] MEDS: FERROUS SULF 325 MG (IRON) TAB PO SCH (09:04)
[2019-08-04] MEDS: GABAPENTIN 300 MG (NEURONTIN) CAP PO SCH ×2 (09:04→19:47)
[2019-08-04] MEDS: DOCUSATE SODIUM 100 MG (COLACE) CAP PO SCH ×2 (09:04→19:47)
[2019-08-04 09:07] VITALS: BP 117/71
--- NOTE | 2019-08-04 09:10 | NUR ---
PT AWAKE, IN BED, HOLDING . VS OBTAINED. MEDS GIVEN PO; SEE EMAR FOR FURTHER. INITIAL SHIFT ASSESSMENT COMPLETED; SEE INTERVENTION FOR FURTHER. NO NEEDS VOICED. CALL LIGHT WITHIN REACH. S/O SLEEPING @ THE BEDSIDE.
--- NOTE | 2019-08-04 12:27 | NUR ---
PT SITTING UP IN CHAIR, EATING STORK MEAL. ICE PROVIDED PER REQUEST.
--- NOTE | 2019-08-04 13:45 | NUR ---
DR. BRENNAN HERE TO SEE PT.
[2019-08-04 13:50] VITALS: BP 118/61
[2019-08-04] MEDS: IBUPROFEN 600 MG (MOTRIN) TAB PO SCH ×2 (13:54→19:47)
--- NOTE | 2019-08-04 13:55 | NUR ---
PT IN BED. VS OBTAINED. ROUTINE MOTRIN GIVEN PO; SEE EMAR FOR FURTHER. TOWELS AND WASH CLOTHS PROVIDED FOR SHOWER. NO FURTHER NEEDS VOICED. CALL LIGHT WITHIN REACH.
--- NOTE | 2019-08-04 14:20 | NUR ---
CM/SS visited with the patient for a social service consult. Plan: The patient and her significant other plan to return to their home in [place]. They do not live with her mother and her other 3 children. The patient and her significant other were present in the room. The fOB was holding the baby (Woodrow Romero).CM/SS asked if they had everything they needed at home for baby. The patient stated that they have a crib, Pack-N-Play with a bassinet, car seat, clothes, and diapers. The patient stated that she currently receives food stamps but is not enrolled in [facility]. The patient gave verbal permission for this SS to call and make referral for her. CM/SS contacted the [facility] Department and spoke with Addis for referral. They will contact the patient to finish the enrollment. The patient verbalized that she wanted to look over healthy families pamphlet before a referral was made. A [id number] pamphlet was also provided. CM/SS will talk to the family tomorrow and give more information on diaper pantry. The FOB stated that he was just recently released from [facility] over the weekend. He reports that he is now currently on probation and his charge was not drug related. The patient also verbalized that she was incarcerated approximately 2 years ago; also not drug related. At this time she granted her mother temporary guardianship. The patient still has custody of all of her children. She reports that she does not have her children living with her because her mother is not cooperating with them. She is only seeing her children approximately 2x per week then additional phone calls. The patient reports that DCF has not been involved with any of her children. She denies drug use at this time. Will continue to follow.
[2019-08-04] MEDS ORDERED: BISACODYL 5 MG (DULCOLAX) TABLET PO PRN (17:45)
[2019-08-04 19:45] VITALS: BP 115/64
--- NOTE | 2019-08-04 19:45 | NUR ---
Pt in bed, s.o. at side. in open crib at bedside. Introduced self, discussed POC. Pt verbalized understanding. Assessment performed, VS taken. See interventions for details. Pt c/o pain. Scheduled Motrin and medications given. S.O. asking this RN if nursery was open. Explained to parents that we may not be able to take throughout night depending on staff availability. Pt and s.o. requesting to ambulate off unit to vending machines "to get something to eat and drink." Informed parents this RN can watch infant for five to ten minutes if they run down to the vending machine. Parents verbalized understanding. 1954: Pt and s.o. ambulating off unit. No distress noted.
--- NOTE | 2019-08-04 20:05 | NUR ---
Pt and s.o. back on unit, snacks in hand. Infant back to room at time. Pt denies any concerns.
[2019-08-05 02:05] VITALS: BP 138/89
[2019-08-05] MEDS: IBUPROFEN 600 MG (MOTRIN) TAB PO SCH ×2 (02:10→07:31)
[2019-08-05] MEDS: ACETAMINOPHEN 500 MG TAB (TYLENOL) PO SCH (02:10)
[2019-08-05] MEDS: CATHETER FLUSH 10 ML SYR IV SCH ×2 (07:26→08:05)
--- NOTE | 2019-08-05 07:30 | NUR ---
Patient awake and ambulatory in room. VS checked. Initial assessment done. Patient states pain level at 4, but does not want any meds other than scheduled meds.
[2019-08-05] MEDS: FERROUS SULF 325 MG (IRON) TAB PO SCH (07:31)
[2019-08-05] MEDS: DOCUSATE SODIUM 100 MG (COLACE) CAP PO SCH (07:32)
[2019-08-05 07:59] VITALS: BP 139/84
--- NOTE | 2019-08-05 09:23 | NUR ---
CM/SS follow up with the patient. The patient states that she is doing well today. CM/SS brought an additional resource pamphlet to the patient for the [facility] Diaper Stock. The pamphlet list out different resources in the community to allow mothers to access the diaper stock. CM/SS informed the patient of this. CM/SS asked if she wanted this SS to refer for any of them. The patient declined and stated she did not need to access the diaper stock. If the need arises she will contact one of the resources. The patient stated that she does not have any formula at the house but is getting some with her food stamps. The patient verbalized that she does not have any other questions or needs at this time.
[2019-08-05] MEDS: GABAPENTIN 300 MG (NEURONTIN) CAP PO SCH (09:42)
--- NOTE | 2019-08-05 09:45 | NUR ---
Dismissal instructions reviewed with mother. States understanding. Prescriptions called to [facility] per Dr. Clemente. Mother informed. Follow up appointments scheduled.
--- NOTE | 2019-08-05 10:10 | NUR ---
WARDS,PRAVEENA Haq demonstrates understanding of discharge instructions and accurately returns instructions upon questioning. Copy of Post-Discharge Instructions given to patient. WARDSPRAVEENA is able to manage continuing needs after discharge. Patients belongings returned to patient. Patient discharged from 3308-1 on 08-05-19 at 1010 . WARDSPRAVEENA left floor ambulatory, carrying , accompanied by OB staff.
== END 2019-08-05 10:10 | disposition home or self-care (01) | DRG 787 ==
LOC: LDRP 07:00
PROVIDERS: ADMIT Obstetrics & Gynecology; ATTEND Obstetrics & Gynecology
PROC: 10D00Z1 Extraction of Products of Conception, Low, Open Approach (ICD-10-PCS; principal; 2019-08-03 08:56)
DX: O34.211 Maternal care for low transverse scar from previous cesarean delivery (principal); O99.013 Anemia complicating pregnancy, third trimester; D50.9 Iron deficiency anemia, unspecified; O90.81 Anemia of the puerperium; D62 Acute posthemorrhagic anemia; O32.3XX0 Maternal care for face, brow and chin presentation, not applicable or unspecified; Z37.0 Single live birth; Z3A.39 39 weeks gestation of pregnancy; Z23 Encounter for immunization
CPT/HCPCS: 36415; 81000; 85025; 86850; 86900; 86901; 86902; 86922; 87088; 90715; 94664

== ENCOUNTER 2020-03-13 08:56 | Outpatient (RCR) | payer MEDICAID ==
[~2020-03-13] VITALS: Ht 162 cm; Wt 52.6 kg
[~2020-03-13 08:56] MED LIST changes: +ACET-93 PO; -CITRIC ACID/SOB CIT (BICITRA) 30 ML UDC ONE; +DCS100C PO; -FAMOTIDINE 20MG/2ML IV (PEPCID) ONE; +FERR325T18 PO; +GABA-488 PO; +IBUP-844 PO; -LACTATED RINGERS 1,000 ML IV ONE; -METOCLOPRAMIDE INJ 10 MG/2 ML (REGLAN) ONE; -WATER (STERILE) FOR INJECTION 10 ML ONE; -ceFAZolin INJECTION 0 MG ONE; -ceFAZolin INJECTION 1,000 MG ONE; -metroNIDAZOLE 500MG/100ML IVPB 100 ML ONE
[2020-03-13] MEDS ORDERED: NS IV 500 ML 500 ML IV SCH ×2 (09:03→09:15)
[2020-03-13 09:39] VITALS: BP 119/92
[2020-03-13 13:05] VITALS: BP 112/84
[2020-03-13 13:24] VITALS: BP 125/85
[2020-03-13 15:15] VITALS: BP 122/92
--- NOTE | 2020-03-13 15:30 | NUR ---
BLOOD TRANSFUSION COMPLETED AT 1515. SL FLUSHED WITH 6 ML NS, WAITED 5 MIN, THEN 5 ML BLOOD DRAWN AND DISCARDED. 4 ML BLOOD THEN DRAWN AND TRANFERRED TO PURPLE TOP TUBE FOR H&H PER PROTOCOL ORDER.
--- NOTE | 2020-03-13 15:45 | NUR ---
HAS BEEN UP TO BR, VOIDED WITHOUT PROBLEM, GAIT STEADY. STATES SHE IS FEELING "A LOT BETTER". DISMISSED.
[2020-03-13 15:53] LABS: HEMOGLOBIN 7.8 g/dL (11.5-16.0)
== END 2020-03-13 15:45 | disposition home or self-care (01) ==
LOC: SDC 08:56
PROVIDERS: ATTEND Family Medicine
DX: D50.9 Iron deficiency anemia, unspecified (principal)
CPT/HCPCS: 36430; 85014; 85018; 86850; 86870; 86900; 86901; 86902; 86922; P9016; 36415

== ENCOUNTER 2020-04-05 10:59 | Outpatient (RCR) | payer MEDICAID ==
[~2020-04-05 10:59] MED LIST changes: -CLIN300C11 PO; +CLIN300C12 PO
[2020-04-05] MEDS ORDERED: NS IV 500 ML 500 ML ONE (20:09)
[2020-04-05 20:22] VITALS: BP 148/73
[2020-04-05 20:49] VITALS: BP 121/75
[2020-04-05 23:47] VITALS: BP 116/85
== END 2020-07-04 | disposition home or self-care (01) ==
LOC: SDC 10:59
PROVIDERS: ATTEND Family Medicine
DX: D50.9 Iron deficiency anemia, unspecified (principal)
CPT/HCPCS: 86850; 86870; 86900; 86901; 86902; 86922; P9016

== ENCOUNTER 2020-09-19 02:31 | Emergency (ER) | payer MEDICAID ==
[2020-09-19] MEDS ORDERED: FAMOTIDINE 20MG/2ML IV (PEPCID) IVP ONE (02:45)
[2020-09-19] MEDS ORDERED: ONDANSETRON 4 MG/2 ML (SDV) Z0FRAN IVP ONE (02:45)
[2020-09-19] MEDS ORDERED: NS IV 1000 ML 1,000 ML IV SCH ×2 (02:45→03:15)
[2020-09-19] MEDS ORDERED: PROCHLORPERAZINE 10 MG/2ML INJ (COMPAZINE) IV ONE (03:00)
--- NOTE | 2020-09-19 03:01 | ED Abdominal Pain ---
General Chief Complaint: Abdominal/GI Problems Stated Complaint: VOMITING Nursing Triage Note: Pt complaining of vomiting and diarrhea since yesterday evening Sepsis Screen: No Definite Risk Source of Information: Patient Exam Limitations: No Limitations History of Present Illness Date Seen by Provider: September 19, 2020 Time Seen by Provider: 02:45 Initial Comments Patient is a 35-year-old female with history of anemia. Who presents with nausea vomiting and diarrhea starting approximately 8 hours prior to ED arrival. Patient reports multiple episodes of emesis with persistent nausea. She states she has been vomiting 2-3 times an hour and since symptoms began. She also reports watery diarrhea. She reports occasional abdominal cramping but cramps are mild and she is currently pain-free. She reports dizziness and generalized weakness. She has not had recent travel, no GI illness exposure, or antibiotics. No medications or therapies available to patient prior to ED arrival. Last menstrual period 5 weeks ago. No fever chills, sweats. No chest pain palpitations, shortness of breath. No flank pain, urinary frequency urgency or dysuria. No other acute symptoms or complaints. No prior abdominal surgeries. Timing/Duration: 4-6 Hours Severity/Quality: Other Location: Other Radiation: Other Activities at Onset: Other Modifying Factors: Improves With Other Associated Symptoms: Other Allergies and Home Medications Allergies Coded Allergies: ciprofloxacin (Unverified Allergy, Mild, RASH, 08/02/19) Home Medications Acetaminophen 500 Mg Tablet, 1,000 MG PO Q8HR Prescribed by: TESS BRENNAN on 08/03/19 1009 Docusate Sodium 100 Mg Capsule, 100 MG PO BID Prescribed by: TESS BRENNAN on 08/03/19 100 Ferrous Sulfate 325 Mg Tablet, 325 MG PO DAILY@0700 Prescribed by: TESS BRENNAN on 08/03/19 100 Gabapentin 300 Mg Capsule, 300 MG PO BID Prescribed by: TESS BRENNAN on 08/03/19 1009 Ibuprofen 600 Mg Tablet, 600 MG PO Q6HR Prescribed by: TESS BRENNAN on 08/03/19 1009 Patient Home Medication List Home Medication List Reviewed: Yes Review of Systems Review of Systems Constitutional: see HPI EENTM: See HPI Respiratory: See HPI Cardiovascular: See HPI Gastrointestinal: See HPI Genitourinary: See HPI Musculoskeletal: see HPI Skin: see HPI Psychiatric/Neurological: See HPI Endocrine: See HPI Hematologic/Lymphatic: See HPI All Other Systems Reviewed Negative Unless Noted: Yes Past Axyeijt-Jfmmos-Khlbtn Hx Past Med/Social Hx: Reviewed Nursing Past Med/Soc Hx Patient Social History Alcohol Use: Denies Use Drug of Choice: METH Type Used: Cigarettes 2nd Hand Smoke Exposure: Yes Recent Infectious Disease Expo: No Recent Hopitalizations: No Immunizations Up To Date Tetanus Booster (TDap): Unknown PED Vaccines UTD: Yes Seasonal Allergies Seasonal Allergies: No Past Medical History Surgeries: Yes Adenoidectomy, Breast, Section, Tonsillectomy Respiratory: No Currently Using CPAP: No Currently Using BIPAP: No Cardiac: No Neurological: No 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: No [employer] History: Tubal Ligation Sexually Transmitted Disease: No HIV/AIDS: No Genitourinary: Yes (HX UTI'S) Kidney Infection, UTI-Chronic Gastrointestinal: Yes Colitis Musculoskeletal: Yes Scoliosis, Chronic Back Pain Endocrine: No HEENT: Yes (GLASSES) Loss of Vision: Denies Hearing Impairment: Denies Cancer: No Psychosocial: No Integumentary: No Blood Disorders: Yes (anemia) Adverse Reaction/Blood Tranf: No (HAS HAD BLOOD WITH NO REACTION) Family Medical History Diabetes mellitus maternal grandfather paternal grandfather Gastroenteritis 19 FATHER paternal grandmother ( from sepsis at age 85) maternal grandfather Hypertension 19 MOTHER maternal grandmother maternal grandfather Neoplasm maternal aunt (breast cancer) Physical Exam Vital Signs Vital Signs - First Documented 09/19/20 02:33 Temp 36.3 Pulse 109 Resp 18 B/P (MAP) 146/90 (108) Pulse Ox 100 O2 Delivery Room Air Capillary Refill : Less Than 3 Seconds Height/Weight/BMI Height: 5'3.00" Weight: 120lbs. 3.0oz. 54.034935de; 29.80 BMI Method:Estimated General Appearance: WD/WN, no apparent distress, mild distress HEENT: PERRL/EOMI, normal ENT inspection, pharynx normal Respiratory: chest non-tender, lungs clear Cardiovascular: normal peripheral pulses, regular rate, rhythm Gastrointestinal: non tender, soft Extremities: normal range of motion, non-tender Back: normal inspection Neurologic/Psychiatric: manager order II-XII nml as tested, no motor/sensory deficits, oriented x 3 Skin: normal color Focused Exam Sepsis Stage: Ruled Out Lactate Level 09/19/20 03:15: Lactic Acid Level 0.74 Lactic Acid Level Laboratory Tests Test 09/19/20 03:15 Lactic Acid Level 0.74 MMOL/L (0.50-2.00) Progress/Results/Core Measures Results/Orders Lab Results Laboratory Tests Test 09/19/20 02:40 09/19/20 03:15 Range/Units White Blood Count 12.5 H 4.3-11.0 10^3/uL Red Blood Count 4.50 4.35-5.85 10^6/uL Hemoglobin 8.4 L 11.5-16.0 G/DL Hematocrit 30 L 35-52 % Mean Corpuscular Volume 66 L 80-99 FL Mean Corpuscular Hemoglobin 19 L 25-34 PG Mean Corpuscular Hemoglobin Concent 28 L 32-36 G/DL Red Cell Distribution Width 19.5 H 10.0-14.5 % Platelet Count 284 130-400 10^3/uL Mean Platelet Volume 11.3 H 7.4-10.4 FL Immature Granulocyte % (Auto) 0 % Neutrophils (%) (Auto) 82 H 42-75 % Lymphocytes (%) (Auto) 10 L 12-44 % Monocytes (%) (Auto) 4 0-12 % Eosinophils (%) (Auto) 4 0-10 % Basophils (%) (Auto) 1 0-10 % Neutrophils # (Auto) 10.3 H 1.8-7.8 X 10^3 Lymphocytes # (Auto) 1.2 1.0-4.0 X 10^3 Monocytes # (Auto) 0.5 0.0-1.0 X 10^3 Eosinophils # (Auto) 0.4 H 0.0-0.3 10^3/uL Basophils # (Auto) 0.1 0.0-0.1 10^3/uL Immature Granulocyte # (Auto) 0.0 0.0-0.1 10^3/uL Sodium Level 135 135-145 MMOL/L Potassium Level 3.5 L 3.6-5.0 MMOL/L Chloride Level 103 98-107 MMOL/L Carbon Dioxide Level 19 L 21-32 MMOL/L Anion Gap 13 5-14 MMOL/L Blood Urea Nitrogen 22 H 7-18 MG/DL Creatinine 0.73 0.60-1.30 MG/DL Estimat Glomerular Filtration Rate > 60 BUN/Creatinine Ratio 30 Glucose Level 104 70-105 MG/DL Calcium Level 9.7 8.5-10.1 MG/DL Corrected Calcium 8.5-10.1 MG/DL Total Bilirubin 0.3 0.1-1.0 MG/DL Aspartate Amino Transf (AST/SGOT) 16 5-34 U/L Alanine Aminotransferase (ALT/SGPT) 12 0-55 U/L Alkaline Phosphatase 79 40-136 U/L Total Protein 8.0 6.4-8.2 GM/DL Albumin 5.0 H 3.2-4.5 GM/DL Lipase 28 8-78 U/L Serum Test, Qualitative NEGATIVE NEGATIVE Lactic Acid Level 0.74 0.50-2.00 MMOL/L My Orders Orders - SUNG ZARATE DO Cbc With Automated Diff (09/19/20 02:39) Comprehensive Metabolic Panel (09/19/20 02:39) Lipase (09/19/20 02:39) Hcg,Qualitative Serum (09/19/20 02:39) Ns Iv 1000 Ml (Sodium Chloride 0.9%) (09/19/20 02:45) Ondansetron Injection (Zofran Injectio (09/19/20 02:45) Famotidine Injection (Pepcid Injection) (09/19/20 02:45) Ed Iv/Invasive Line Start (09/19/20 02:44) Prochlorperazine Injection (Compazine In (09/19/20 03:00) Lactic Acid Analyzer (09/19/20 03:02) Ns Iv 1000 Ml (Sodium Chloride 0.9%) (09/19/20 03:15) Acetaminophen Tablet (Tylenol Tablet) (09/19/20 03:30) Medications Given in ED Current Medications Medications Dose Ordered Sig/Nicole Route Start Time Stop Time Status Last Admin Dose Admin Acetaminophen 1,000 mg ONCE ONCE PO 09/19/20 03:30 09/19/20 03:31 DC 09/19/20 03:23 1,000 MG Famotidine 20 mg ONCE ONCE IVP 09/19/20 02:45 09/19/20 02:46 DC 09/19/20 02:47 20 MG Ondansetron HCl 4 mg ONCE ONCE IVP 09/19/20 02:45 09/19/20 02:46 DC 09/19/20 02:47 4 MG Prochlorperazine Edisylate 10 mg ONCE ONCE IV 09/19/20 03:00 09/19/20 03:01 DC 09/19/20 03:03 10 MG Vital Signs/I&O 09/19/20 09/19/20 02:33 04:06 Temp 36.3 Pulse 109 80 Resp 18 16 B/P (MAP) 146/90 (108) 124/82 Pulse Ox 100 100 O2 Delivery Room Air Room Air Blood Pressure Mean: 108 Departure Communication (Admissions) Soft, nonsurgical. Vomiting and diarrhea consistent with GI illness prevalent in the community. Iv fuids, repeat antiemetics and medicines given the ED with significant improvement. No vomiting. Patient able to tolerate oral intake. Recommend supportive care watchful waiting and PCP follow-up. Return precautions reviewed. Patient verbalizes understanding agreement discharge instructions prior to departure. Impression Primary Impression: Vomiting and diarrhea Additional Impressions: Abdominal pain Chronic anemia Disposition: HOME, SELF-CARE Condition: Stable Departure-Patient Inst. Decision time for Depature: 04:23 Referrals: [facility] (PCP/Family) Primary Care Physician Patient Instructions: Nausea and Vomiting, Adult ED Add. Discharge Instructions: Please go home and rest. Drink clear liquids only for the next 6 to 12 hours then gradually increase to bland diet as tolerated. Take newly prescribed medications. Follow-up with your PCP in 1 to 2 days if symptoms persist. Return to the ED if new or worsening symptoms All discharge instructions reviewed with patient and/or family. Voiced understanding. Scripts Ondansetron (Ondansetron Odt) 4 Mg Tab.rapdis 4 MG PO Q4H PRN for NAUSEA/VOMITING, #10 TAB Prov: SUNG ZARATE DO 09/19/20 Work/School Note: School/Childcare Release Date Seen in the Emergency Department: September 19, 2020 Time Dismissed from Emergency Department: 04:25 Return to School: September 21, 2020 Restrictions: No Restrictions SUNG ZARATE DO September 19, 2020 03:01
[2020-09-19 03:10] LABS: BASOPHILS % (AUTO) 1 % (0-10); EOSINOPHILS % (AUTO) 4 % (0-10); HEMATOCRIT 30 % (35-52); HEMOGLOBIN 8.4 G/DL (11.5-16.0); LYMPHOCYTES # (AUTO) 1.2 X 10^3 (1.0-4.0); LYMPHOCYTES % (AUTO) 10 % (12-44); MEAN CORPUSCULAR HEMOGLOBIN 19 PG (25-34); MEAN CORPUSCULAR HGB CONC 28 G/DL (32-36); MEAN CORPUSCULAR VOLUME 66 FL (80-99); MEAN PLATELET VOLUME 11.3 FL (7.4-10.4); MONOCYTES # (AUTO) 0.5 X 10^3 (0.0-1.0); MONOCYTES % (AUTO) 4 % (0-12); NEUTROPHILS # (AUTO) 10.3 X 10^3 (1.8-7.8); NEUTROPHILS % (AUTO) 82 % (42-75); PLATELET COUNT 284 10^3/uL (130-400); WHITE BLOOD COUNT 12.5 10^3/uL (4.3-11.0)
[2020-09-19 03:11] LABS: BASOPHILS # (AUTO) 0.1 10^3/uL (0.0-0.1); EOSINOPHILS # (AUTO) 0.4 10^3/uL (0.0-0.3)
[2020-09-19 03:29] LABS: BILIRUBIN,TOTAL 0.3 MG/DL (0.1-1.0); BUN/CREATININE RATIO 30; CALCIUM 9.7 MG/DL (8.5-10.1); CARBON DIOXIDE 19 MMOL/L (21-32); CHLORIDE 103 MMOL/L (98-107); CREATININE SERUM 0.73 MG/DL (0.60-1.30); GFR ESTIMATED > 60; GLUCOSE 104 MG/DL (70-105); POTASSIUM 3.5 MMOL/L (3.6-5.0); SODIUM 135 MMOL/L (135-145)
[2020-09-19 03:30] LABS: ALANINE AMINOTRANSFERASE 12 U/L (0-55); ALKALINE PHOSPHATASE 79 U/L (40-136); LIPASE 28 U/L (8-78)
[2020-09-19] MEDS ORDERED: ACETAMINOPHEN 500 MG TAB (TYLENOL) PO ONE (03:30)
[2020-09-19 04:06] VITALS: BP 124/82
[2020-09-19] MEDS ORDERED: ONDA4TAB11 PO (04:25)
== END 2020-09-19 07:29 | disposition home or self-care (01) ==
LOC: EDUNIT# 02:31 → ER FS 02:33
DX: R11.2 Nausea with vomiting, unspecified (principal); R19.7 Diarrhea, unspecified; R10.9 Unspecified abdominal pain; D64.9 Anemia, unspecified; Z77.22 Contact with and (suspected) exposure to environmental tobacco smoke (acute) (chronic); Z88.1 Allergy status to other antibiotic agents
CPT/HCPCS: 36415; 80053; 83605; 83690; 84703; 85025

== ENCOUNTER 2020-09-28 08:02 | Outpatient (RCR) | payer MEDICAID ==
[~2020-09-28 08:02] MED LIST changes: +ONDA4TAB11 PO; -SULF1TAB35 PO; +SULF1TAB38 PO
[2020-09-28 08:15] VITALS: BP 126/90
[2020-09-28] MEDS ORDERED: ACETAMINOPHEN 500 MG TAB (TYLENOL) PO ONE (08:30)
[2020-09-28] MEDS ORDERED: diphenhydrAMINE 25 MG TAB (BENADRYL) PO ONE (08:30)
[2020-09-28] MEDS ORDERED: NS IV 500 ML 500 ML IV SCH (08:30)
[2020-12-11] MEDS ORDERED: IBUP-2473 PO (08:58)
[2020-12-11] MEDS ORDERED: FERR-74 PO (13:49)
== END 2020-12-27 | disposition home or self-care (01) ==
LOC: SDC 08:02 → EDSTATUS 10:23
PROVIDERS: ATTEND Nurse Practitioner Family
DX: D64.9 Anemia, unspecified (principal)
CPT/HCPCS: 36415; 36430; 86850; 86870; 86900; 86901; 86922

== ENCOUNTER 2020-12-20 15:31 | Outpatient (CLI) | payer MEDICAID ==
[~2020-12-20] VITALS: Ht 157 cm; Wt 54.5 kg
[~2020-12-20 15:31] MED LIST changes: +FERR-74 PO; +IBUP-2473 PO
[2020-12-20 17:10] VITALS: BP 107/71
[2020-12-20] MEDS ORDERED: IRON SUCROSE 200 MG/10 ML (VENOFER) VIAL IV NR (17:15)
== END 2020-12-20 18:10 ==
LOC: SDC 15:31
PROVIDERS: ATTEND Family Medicine
DX: D50.9 Iron deficiency anemia, unspecified (principal)
CPT/HCPCS: 96365

== ENCOUNTER 2021-01-17 05:28 | Outpatient (RCR) | payer MEDICAID ==
[~2021-01-17] VITALS: Ht 157.5 cm; Wt 54.5 kg
== END 2021-01-17 09:18 | disposition home or self-care (01) ==
LOC: PREOP 05:28
PROVIDERS: ATTEND Surgery
DX: Z01.818 Encounter for other preprocedural examination (principal); D64.9 Anemia, unspecified; K52.9 Noninfective gastroenteritis and colitis, unspecified; Z20.822 Contact with and (suspected) exposure to COVID-19
CPT/HCPCS: 87635

== ENCOUNTER 2021-01-19 09:05 | Day surgery (SDC) | payer MEDICAID ==
[~2021-01-19] VITALS: Ht 157.5 cm; Wt 54.5 kg
[2021-01-19] MEDS ORDERED: LACTATED RINGERS 1,000 ML IV STA (09:06)
[2021-01-19] MEDS ORDERED: LACTATED RINGERS 1,000 ML IV ONE (09:17)
[2021-01-19 09:25] VITALS: BP 120/83
[2021-01-19] MEDS: HURRICAINE EXT TUBE (BENZOCAINE) XX PRN ×2 (11:19→11:41)
[2021-01-19] MEDS ORDERED: PROPOFOL INJECTION 50 ML IV ONE (11:21)
--- NOTE | 2021-01-19 11:22 | Progress Note-Pre Operative ---
Pre-Operative Progress Note H&P Reviewed The H&P was reviewed, patient examined and no changes noted. Time Seen by Provider: 11:19 Date H&P Reviewed: Jan 19, 2021 Time H&P Reviewed: 11:19 Pre-Operative Diagnosis: Gastritis, Anemia DALILA QUEZADA DO Jan 19, 2021 11:22
[2021-01-19 11:55] VITALS: BP 108/60
[2021-01-19 12:00] VITALS: BP 113/70
[2021-01-19 12:05] VITALS: BP 114/71
[2021-01-19 12:10] VITALS: BP 114/71
--- NOTE | 2021-01-19 12:24 | Progress Note-Post Operative ---
Post-Operative Progess Note Surgeon (s)/Social Service Liaison (s) Surgeon DALILA QUEZADA DO Social Service Liaison: Emmanuel Briggs, MSIII Pre-Operative Diagnosis Gastritis, Anemia Post-Operative Diagnosis Gastritis Esophagitis hiatal hernia Polyp Int hemorrhoids Procedure & Operative Findings Date of Procedure 01/19/21 Procedure Performed/Findings EGD with Bx Colon with snare PROCEDURE NOTE: After informed consent was obtained, the patient was brought to the endoscopy suite, placed in bed in left lateral decubitus position. She was administered IV sedation by the AMBULATORY CARE COORDINATOR who then monitored vitals the entire time, heart rate, blood pressure and pulse ox and the scope was inserted down the mouth through the esophagus into the stomach. On the way down, noted some mild esophagitis, took a picture, pushed into the stomach, pushed past the antrum into the duodenum. Duodenum looked good. Pulled back and did a biopsy of antrum, then retroflexed the scope, saw small hiatal hernia, took a picture of this and then did a biopsy of the body of the stomach, pulled into the GE junction saw esophagitis and then did a biopsy of the GE junction. Pushed the scope back into the stomach, suctioned all the air out of the stomach. At this point pulled the scope up the esophagus and out the mouth. Switched camera, switched gloves, went down below, started the colonoscopy. Pushed all the way into about 140 cm to get all the way to cecum, took a picture of the appendiceal orifice, noted the ileocecal valve and then slowly withdrew the scope, insufflating to look circumferentiallly at the hewitt starting in the cecum, up the ascending colon to the hepatic flexure, then down the transverse colon, splenic flexure, into the descending colon. In the descending colon saw a polyp and did a snare polypectomy; then continued down into the sigmoid and finally into the rectum. Retroflexed in the rectal vault, saw some minimal internal hemorrhoids and took a picture of this. The patient tolerated the procedure and she recovered in the endoscopy suite. Anesthesia Type IV sedation by AMBULATORY CARE COORDINATOR Estimated Blood Loss Estimated blood loss (mL): scant Specimens/Packing Specimens Removed antrum bx body of stomach bx GE jxn bx Desc colon polyp DALILA QUEZADA DO Jan 19, 2021 12:24
--- NOTE | 2021-01-19 12:25 | Endoscopy Discharge Instruct ---
Endo Procedure/Findings Findings 1.: Gastritis, Other Findings (Esophagitis) 2.: Hiatal Hernia 3.: Polyp 4.: Internal Hemorrhoids Discharge Instructions - Activity: You might feel a little sleepy until tomorrow. This is due to the medicine you received to relax you. Until tomorrow, you should: NOT drive a car, operate machinery or power tools. NOT drink any alcoholic beverages. NOT make any important decisions or sign importortant papers. Do not return to work until tomorrow, unless otherwise instructed. Resume previous activities tomorrow. Diet: Start by taking liquids. If you tolerate liquids, advance to solid food. 1.: EGD in 1 year 2.: Colonscopy in 5 years Notify Physician - If you experience excessive bleeding, unusual abdominal pain, fever, or chest pain, contact your doctor immediately. DALILA QUEZADA DO Jan 19, 2021 12:25
[2021-01-19 12:38] VITALS: BP 112/70
--- NOTE | 2021-01-19 12:44 | Anesthesia-General Post-Op ---
MAC Patient Condition Mental Status/LOC: Same as Preop Cardiovascular: Satisfactory Nausea/Vomiting: Absent Respiratory: Satisfactory Pain: Controlled Complications: Absent Post Op Complications Complications None Follow Up Care/Instructions Patient Instructions None needed. Anesthesiology Discharge Order Discharge Order Patient is doing well, no complaints, stable vital signs, no apparent adverse anesthesia problems. No complications reported per nursing. ANKIT KENNY CRNA Jan 19, 2021 12:44
== END 2021-01-19 12:45 | disposition home or self-care (01) ==
LOC: ENDO 09:05
PROVIDERS: ATTEND Surgery
DX: K29.50 Unspecified chronic gastritis without bleeding (principal); K63.5 Polyp of colon; K44.9 Diaphragmatic hernia without obstruction or gangrene; K20.90 Esophagitis, unspecified without bleeding; K64.8 Other hemorrhoids; D50.9 Iron deficiency anemia, unspecified; N92.1 Excessive and frequent menstruation with irregular cycle; F17.200 Nicotine dependence, unspecified, uncomplicated
CPT/HCPCS: 84703

== ENCOUNTER 2021-02-15 10:28 | Emergency (ER) | payer MEDICAID ==
[~2021-02-15] VITALS: Ht 157.5 cm; Wt 55.3 kg
[~2021-02-15 10:28] MED LIST changes: -DCS100C PO; +DOCU-239 PO; -DOXY100C2 PO; +DOXY100C5 PO
--- NOTE | 2021-02-15 10:47 | ED General ---
General Stated Complaint: DIZZINESS,GUILLEN Source of Information: Patient Exam Limitations: No Limitations History of Present Illness Date Seen by Provider: Feb 15, 2021 Time Seen by Provider: 10:45 Initial Comments To ER by private vehicle with reports of dizziness headache shortness of breath and fatigue. History of anemia and this feels similar. History of heavy periods. Has had EGD colonoscopy within the past month showing mild esophagitis. She is unable to take oral iron supplementation because of GI upset. She is scheduled for an outpatient iron infusion tomorrow. Timing/Duration: 1-2 Days Severity: Moderate Associated Systoms: Headaches, Malaise Allergies and Home Medications Allergies Coded Allergies: ciprofloxacin (Unverified Allergy, Mild, RASH, 08/02/19) Patient Home Medication List Home Medication List Reviewed: Yes No Active Prescriptions or Reported Meds Review of Systems Review of Systems Constitutional: see HPI EENTM: see HPI Respiratory: no symptoms reported Cardiovascular: no symptoms reported Genitourinary: no symptoms reported Musculoskeletal: no symptoms reported Skin: no symptoms reported Psychiatric/Neurological: No Symptoms Reported Hematologic/Lymphatic: No Symptoms Reported Immunological/Allergic: no symptoms reported Past Uknzwtn-Sfuqlq-Tkfkyx Hx Immunizations Up To Date Tetanus Booster (TDap): Unknown PED Vaccines UTD: Yes Seasonal Allergies Seasonal Allergies: No Past Medical History Surgery/Hospitalization HX: X 2 TONSILLECTOMY WISDOM TEETH EGD/COLONOSCOPY > 10 YEARS AGO Surgeries: Yes Adenoidectomy, Breast, Section, Tonsillectomy Respiratory: No Currently Using CPAP: No Currently Using BIPAP: No Cardiac: No Neurological: No 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: No SU[employer]OR [employer] History: Tubal Ligation Sexually Transmitted Disease: No HIV/AIDS: No Genitourinary: Yes (HX UTI'S) Kidney Infection, UTI-Chronic Gastrointestinal: Yes Colitis Musculoskeletal: Yes Scoliosis, Chronic Back Pain Endocrine: No HEENT: Yes (GLASSES) Loss of Vision: Denies Hearing Impairment: Denies Cancer: No Psychosocial: No Integumentary: No Blood Disorders: Yes (ANEMIA) Adverse Reaction/Blood Tranf: No (HAS HAD BLOOD WITH NO REACTION) Family Medical History Diabetes mellitus maternal grandfather paternal grandfather Gastroenteritis 19 FATHER paternal grandmother ( from sepsis at age 85) maternal grandfather Hypertension 19 MOTHER maternal grandmother maternal grandfather Neoplasm maternal aunt (breast cancer) Cancer, Hypertension Physical Exam Vital Signs Vital Signs - First Documented 02/15/21 10:42 Temp 36.6 Pulse 101 Resp 20 B/P (MAP) 121/73 (89) Pulse Ox 100 O2 Delivery Room Air Capillary Refill : Height, Weight, BMI Height: 5'3.00" Weight: 120lbs. 3.0oz. 54.307144sw; 21.97 BMI Method:Estimated General Appearance: No Apparent Distress, WD/WN, Thin Eyes: Bilateral Eye Normal Inspection, Bilateral Eye PERRL, Bilateral Eye EOMI Neck: Full Range of Motion, Normal Inspection Respiratory: Normal Breath Sounds, No Accessory Muscle Use, No Respiratory Distress Cardiovascular: Regular Rate, Rhythm, Normal Peripheral Pulses Gastrointestinal: Normal Bowel Sounds, Non Tender, Soft Extremity: Normal Capillary Refill, Normal Inspection Neurologic/Psychiatric: Alert, Oriented x3 Skin: Normal Color, Warm/Dry Progress/Results/Core Measures Suspected Sepsis SIRS Temperature: Pulse: Respiratory Rate: Laboratory Tests 02/15/21 10:48: White Blood Count 9.7 Blood Pressure / Mean: Laboratory Tests 02/15/21 10:48: Creatinine 0.70, Platelet Count 258, Total Bilirubin 0.2 Results/Orders Lab Results Laboratory Tests Test 02/15/21 10:48 Range/Units White Blood Count 9.7 4.3-11.0 10^3/uL Red Blood Count 3.79 L 3.80-5.11 10^6/uL Hemoglobin 8.5 L 11.5-16.0 g/dL Hematocrit 29 L 35-52 % Mean Corpuscular Volume 77 L 80-99 fL Mean Corpuscular Hemoglobin 22 L 25-34 pg Mean Corpuscular Hemoglobin Concent 29 L 32-36 g/dL Red Cell Distribution Width 22.5 H 10.0-14.5 % Platelet Count 258 130-400 10^3/uL Mean Platelet Volume 10.3 9.0-12.2 fL Immature Granulocyte % (Auto) 0 % Neutrophils (%) (Auto) 78 H 42-75 % Lymphocytes (%) (Auto) 16 12-44 % Monocytes (%) (Auto) 4 0-12 % Eosinophils (%) (Auto) 2 0-10 % Basophils (%) (Auto) 1 0-10 % Neutrophils # (Auto) 7.5 1.8-7.8 10^3/uL Lymphocytes # (Auto) 1.5 1.0-4.0 10^3/uL Monocytes # (Auto) 0.4 0.0-1.0 10^3/uL Eosinophils # (Auto) 0.2 0.0-0.3 10^3/uL Basophils # (Auto) 0.1 0.0-0.1 10^3/uL Immature Granulocyte # (Auto) 0.0 0.0-0.1 10^3/uL Sodium Level 138 135-145 MMOL/L Potassium Level 4.0 3.6-5.0 MMOL/L Chloride Level 105 98-107 MMOL/L Carbon Dioxide Level 23 21-32 MMOL/L Anion Gap 10 5-14 MMOL/L Blood Urea Nitrogen 16 7-18 MG/DL Creatinine 0.70 0.60-1.30 MG/DL Estimat Glomerular Filtration Rate 94 BUN/Creatinine Ratio 23 Glucose Level 101 70-105 MG/DL Calcium Level 9.1 8.5-10.1 MG/DL Corrected Calcium 9.2 8.5-10.1 MG/DL Total Bilirubin 0.2 0.1-1.0 MG/DL Aspartate Amino Transf (AST/SGOT) 15 5-34 U/L Alanine Aminotransferase (ALT/SGPT) 13 0-55 U/L Alkaline Phosphatase 69 40-136 U/L Total Protein 6.6 6.4-8.2 GM/DL Albumin 3.9 3.2-4.5 GM/DL Serum Test, Qualitative NEGATIVE NEGATIVE My Orders Orders - LILLIAN DEVI APRN Cbc With Automated Diff (02/15/21 10:35) Red Cells Leukocytes Reduced (02/15/21 10:35) Comprehensive Metabolic Panel (02/15/21 10:35) Ed Iv/Invasive Line Start (02/15/21 10:35) Hcg,Qualitative Serum (02/15/21 10:35) Type And Screen (02/15/21 10:35) Vital Signs/I&O 02/15/21 10:42 Temp 36.6 Pulse 101 Resp 20 B/P (MAP) 121/73 (89) Pulse Ox 100 O2 Delivery Room Air Capillary Refill : Departure Impression Primary Impression: Anemia Disposition: 01 HOME, SELF-CARE Condition: Stable Departure-Patient Inst. Decision time for Depature: 11:51 Referrals: [facility] (PCP/Family) Primary Care Physician Patient Instructions: Anemia Caused by Low Iron Add. Discharge Instructions: keep Your appointment for the iron infusion tomorrow. Scripts No Active Prescriptions or Reported Meds LILLIAN DEVI APRN Feb 15, 2021 10:46
[2021-02-15 10:56] LABS: BASOPHILS # (AUTO) 0.1 10^3/uL (0.0-0.1); BASOPHILS % (AUTO) 1 % (0-10); EOSINOPHILS # (AUTO) 0.2 10^3/uL (0.0-0.3); EOSINOPHILS % (AUTO) 2 % (0-10); HEMATOCRIT 29 % (35-52); HEMOGLOBIN 8.5 g/dL (11.5-16.0); LYMPHOCYTES # (AUTO) 1.5 10^3/uL (1.0-4.0); LYMPHOCYTES % (AUTO) 16 % (12-44); MEAN CORPUSCULAR HEMOGLOBIN 22 pg (25-34); MEAN CORPUSCULAR HGB CONC 29 g/dL (32-36); MEAN CORPUSCULAR VOLUME 77 fL (80-99); MEAN PLATELET VOLUME 10.3 fL (9.0-12.2); MONOCYTES # (AUTO) 0.4 10^3/uL (0.0-1.0); MONOCYTES % (AUTO) 4 % (0-12); NEUTROPHILS # (AUTO) 7.5 10^3/uL (1.8-7.8); NEUTROPHILS % (AUTO) 78 % (42-75); PLATELET COUNT 258 10^3/uL (130-400); WHITE BLOOD COUNT 9.7 10^3/uL (4.3-11.0)
[2021-02-15 11:06] LABS: ALBUMIN 3.9 GM/DL (3.2-4.5)
[2021-02-15 11:07] LABS: CALCIUM 9.1 MG/DL (8.5-10.1)
[2021-02-15 11:09] LABS: TOTAL PROTEIN 6.6 GM/DL (6.4-8.2)
[2021-02-15 11:10] LABS: BILIRUBIN,TOTAL 0.2 MG/DL (0.1-1.0)
[2021-02-15 11:12] LABS: CREATININE SERUM 0.7 MG/DL (0.60-1.30)
[2021-02-15 12:05] VITALS: BP 120/78
== END 2021-02-15 12:05 | disposition home or self-care (01) ==
LOC: EDUNIT# 10:28 → ER 10:30
DX: D64.9 Anemia, unspecified (principal)
CPT/HCPCS: 36415; 80053; 84703; 85025; 86850; 86870; 86900; 86901

== ENCOUNTER 2021-02-16 10:36 | Outpatient (RCR) | payer MEDICAID ==
[~2021-02-16] VITALS: Ht 157.5 cm; Wt 55.3 kg
[2021-02-16] MEDS ORDERED: IRON SUCROSE 200 MG/10 ML (VENOFER) VIAL IV ONE (11:00)
[2021-02-16 11:08] VITALS: BP 126/93
== END 2021-02-16 11:42 | disposition home or self-care (01) ==
LOC: SDC 10:36
PROVIDERS: ATTEND Family Medicine
DX: D50.9 Iron deficiency anemia, unspecified (principal)
CPT/HCPCS: 96365

== ENCOUNTER 2021-07-05 01:29 | Emergency (ER) | payer MEDICAID ==
[~2021-07-05] VITALS: Ht 157.4 cm; Wt 52.0 kg
[~2021-07-05 01:29] MED LIST changes: +CLIN-144 PO; -CLIN300C12 PO
[2021-07-05] MEDS ORDERED: AUGMENTIN 875 MG TAB (AMOXICILLIN/CLAVULANATE) ONE (01:54)
[2021-07-05] MEDS ORDERED: TRM50T PO (01:57)
[2021-07-05] MEDS ORDERED: PENI500T PO (01:57)
--- NOTE | 2021-07-05 01:58 | ED EENT ---
History of Present Illness General Chief Complaint: Dental Problems/Pain Stated Complaint: DENTAL PAIN Nursing Triage Note: Pt c/o right upper dental pain that woke her up. Pt took 600mg Ibuporfen at 11pm. Denies fever. Source: patient Exam Limitations: no limitations History of Present Illness Date Seen by Provider: Jul 05, 2021 Time Seen by Provider: 01:45 Initial Comments Patient is a 35-year-old female presents with right upper maxillary dental pain starting 2 hours prior to to arrival. Ibuprofen 3 hours ago. No relief. No dysphonia dysphagia or drooling. Timing/Duration: gradual Location: facial, dental Prearrival Treatment: other Allergies and Home Medications Allergies Coded Allergies: ciprofloxacin (Unverified Allergy, Mild, RASH, 08/02/19) Patient Home Medication List Home Medication List Reviewed: Yes No Active Prescriptions or Reported Meds Review of Systems Review of Systems Constitutional: no symptoms reported, see HPI Mouth: see HPI Past Ajfruwy-Fdhxhb-Tynvjn Hx Patient Social History Tobacco Use?: Yes Tobacco type used: Cigarettes Smoking Status: Current Everyday Smoker Substance use?: No Alcohol Use?: No Pt feels they are or have been: No Immunizations Up To Date Tetanus Booster (TDap): Unknown PED Vaccines UTD: Yes Influenza Vaccine Up-to-Date: No; Not Current First/Initial COVID19 Vaccinat: denies Seasonal Allergies Seasonal Allergies: No Past Medical History Surgery/Hospitalization HX: X 2TONSILLECTOMYWISDOM TEETHEGD/COLONOSCOPY > 10 YEARS AGO CHRONIC BLOOD LOSS, BLOOD TRANSFUSION Surgeries: Yes Adenoidectomy, Breast, Section, Tonsillectomy Respiratory: No Currently Using CPAP: No Currently Using BIPAP: No Cardiac: No Neurological: No Last Menstrual Period: Jun 23, 2021 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 Sexually Transmitted Disease: No HIV/AIDS: No Genitourinary: Yes (HX UTI'S) Kidney Infection, UTI-Chronic Gastrointestinal: Yes Colitis Musculoskeletal: Yes Scoliosis, Chronic Back Pain Endocrine: No HEENT: Yes (GLASSES) Loss of Vision: Denies Hearing Impairment: Denies Cancer: No Psychosocial: No Integumentary: No Blood Disorders: Yes (ANEMIA) Adverse Reaction/Blood Tranf: No (HAS HAD BLOOD WITH NO REACTION) Family Medical History Diabetes mellitus maternal grandfather paternal grandfather Gastroenteritis 19 FATHER paternal grandmother ( from sepsis at age 85) maternal grandfather Hypertension 19 MOTHER maternal grandmother maternal grandfather Neoplasm maternal aunt (breast cancer) Cancer, Hypertension Physical Exam Vital Signs Vital Signs - First Documented 07/05/21 01:34 Temp 36.4 Pulse 98 Resp 15 B/P (MAP) 168/86 (113) Pulse Ox 100 O2 Delivery Room Air Height, Weight, BMI Height: 5'3.00" Weight: 120lbs. 3.0oz. 54.652742mt; 20.00 BMI Method:Estimated General Appearance: mild distress Eyes: bilateral eye normal inspection, bilateral eye PERRL Ears: bilateral ear auricle normal Nose: normal inspection Mouth/Throat: dental tenderness (Right upper maxillary tenderness pain gingival swelling with tooth erosion) Neck: supple Progress/Results/Core Measures Results/Orders My Orders Orders - SUNG ZARATE DO Hydrocodone/Apap 5/325 Tablet (Lortab 5 (07/05/21 02:00) Amoxicillin/Clavulanate Tablet (Augmenti (07/05/21 08:00) Vital Signs/I&O 07/05/21 01:34 Temp 36.4 Pulse 98 Resp 15 B/P (MAP) 168/86 (113) Pulse Ox 100 O2 Delivery Room Air Blood Pressure Mean: 113 Departure Communication (Admissions) Pain addressed Impression Primary Impression: Dental caries Disposition: HOME, SELF-CARE Condition: Stable Departure-Patient Inst. Decision time for Depature: 01:55 Referrals: [facility] (PCP/Family) Primary Care Physician Patient Instructions: Dental Pain, Tooth Decay ED Add. Discharge Instructions: Take 600 mg of ibuprofen 3 times daily fill antibiotics and pain medication in the morning and take as directed. Follow-up at that with dentist of choice PRAVEENA. All discharge instructions reviewed with patient and/or family. Voiced understanding. Scripts Tramadol HCl (Tramadol HCl) 50 Mg Tablet 100 MG PO Q6H PRN for PAIN for 3 Days, #12 TAB 0 Refills Prov: SUNG ZARATE DO 07/05/21 Penicillin V Potassium (Penicillin V Potassium) 500 Mg Tablet 500 MG PO QID, #40 TAB Prov: SUNG ZARATE DO 07/05/21 SUNG ZARATE DO Jul 05, 2021 01:57
[2021-07-05] MEDS ORDERED: HYDROcodone/APAP 5 MG/325 MG (LORTAB) TAB PO ONE (02:00)
[2021-07-05 02:02] VITALS: BP 168/86
[2021-07-05] MEDS ORDERED: AUGMENTIN 875 MG TAB (AMOXICILLIN/CLAVULANATE) PO SCH (08:00)
== END 2021-07-05 02:02 | disposition home or self-care (01) ==
LOC: EDUNIT# 01:29 → ER FS 01:32
DX: K02.9 Dental caries, unspecified (principal); F17.210 Nicotine dependence, cigarettes, uncomplicated
CPT/HCPCS: 99283

== ENCOUNTER 2021-08-22 17:25 | Emergency (ER) | payer MEDICAID ==
[~2021-08-22] VITALS: Ht 157.5 cm; Wt 58.1 kg
[~2021-08-22 17:25] MED LIST changes: +PENI500T PO; +TRM50T PO
[2021-08-22 17:55] LABS: BASOPHILS # (AUTO) 0.1 10^3/uL (0.0-0.1); BASOPHILS % (AUTO) 1 % (0-10); EOSINOPHILS # (AUTO) 0.3 10^3/uL (0.0-0.3); EOSINOPHILS % (AUTO) 3 % (0-10); HEMATOCRIT 26 % (35-52); HEMOGLOBIN 7.3 g/dL (11.5-16.0); LYMPHOCYTES # (AUTO) 1.9 10^3/uL (1.0-4.0); LYMPHOCYTES % (AUTO) 25 % (12-44); MEAN CORPUSCULAR HEMOGLOBIN 18 pg (25-34); MEAN CORPUSCULAR HGB CONC 28 g/dL (32-36); MEAN CORPUSCULAR VOLUME 65 fL (80-99); MEAN PLATELET VOLUME 10.6 fL (9.0-12.2); MONOCYTES # (AUTO) 0.6 10^3/uL (0.0-1.0); MONOCYTES % (AUTO) 8 % (0-12); NEUTROPHILS # (AUTO) 4.7 10^3/uL (1.8-7.8); NEUTROPHILS % (AUTO) 62 % (42-75); PLATELET COUNT 409 10^3/uL (130-400); WHITE BLOOD COUNT 7.5 10^3/uL (4.3-11.0)
--- NOTE | 2021-08-22 18:12 | ED General ---
General Chief Complaint: General Problems/Pain Stated Complaint: DIZZY,FATIGUE Nursing Triage Note: PT AMBULATE TO ROOM FS02 FROM [facility] TO GET HER HGB CHECKED. PT REPORTS HX OF ANEMIA AND [facility] IS UNABLE TO PERFORM LAB TESTING. PT REPORTS SHE IS DIZZY WHEN SHE STANDS UP. PT REPORTS HGB OF 7.9 IN MARCH. Source of Information: Patient Exam Limitations: No Limitations History of Present Illness Date Seen by Provider: Aug 22, 2021 Time Seen by Provider: 17:30 Initial Comments Patient is a 35-year-old female who presents with generalized fatigue and diffi culty getting out of bed. Patient states she has worked 312-hour shifts in a row reports feeling dizzy and fatigued upon standing. Patient last had her hemoglobin checked in March it was 7.9. She does not take iron tablets because she states they make her feel nauseated. She denies fevers chills, sweats, cough, sore throat, nausea or vomiting. No urinary frequency urgency or dysuria. Last menstrual period was 3 days ago. Patient took a urine test yesterday which was negative. No other symptoms or complaints. History of heavy menstrual periods. Timing/Duration: 2-3 Days Severity: Moderate Modifying Factors: improves with Other Associated Systoms: Other Allergies and Home Medications Allergies Coded Allergies: ciprofloxacin (Unverified Allergy, Mild, RASH, 08/02/19) Patient Home Medication List Home Medication List Reviewed: Yes Penicillin V Potassium (Penicillin V Potassium) 500 Mg Tablet, 500 MG PO QID Prescribed by: SUNG ZARATE on 07/05/21 0157 Tramadol HCl (Tramadol HCl) 50 Mg Tablet, 100 MG PO Q6H PRN for PAIN Prescribed by: SUNG ZARATE on 07/05/21 0158 Review of Systems Review of Systems Constitutional: see HPI EENTM: see HPI Respiratory: see HPI Cardiovascular: see HPI Gastrointestinal: see HPI Genitourinary: see HPI Musculoskeletal: see HPI Skin: see HPI Psychiatric/Neurological: See HPI Hematologic/Lymphatic: See HPI Immunological/Allergic: see HPI All Other Systems Reviewed Negative Unless Noted: Yes Past Dvfnswj-Aijgpg-Uyimts Hx Patient Social History Tobacco Use?: Yes Smoking Status: Current Everyday Smoker Smokeless Tobacco Frequency: Never a User Use of E-Cig and/or Vaping dev: No Use of E-Cig and/or Vaping Ez: Never a User Substance use?: No Alcohol Use?: No Pt feels they are or have been: No Immunizations Up To Date Tetanus Booster (TDap): Unknown PED Vaccines UTD: Yes First/Initial COVID19 Vaccinat: denies Seasonal Allergies Seasonal Allergies: No Past Medical History Surgery/Hospitalization HX: X 2TONSILLECTOMYWISDOM TEETHEGD/COLONOSCOPY > 10 YEARS AGO CHRONIC BLOOD LOSS, BLOOD TRANSFUSION Surgeries: Yes Adenoidectomy, Breast, Section, Tonsillectomy Respiratory: No Currently Using CPAP: No Currently Using BIPAP: No Cardiac: No Neurological: No 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 Sexually Transmitted Disease: No HIV/AIDS: No Genitourinary: Yes (HX UTI'S) Kidney Infection, UTI-Chronic Gastrointestinal: Yes Colitis Musculoskeletal: Yes Scoliosis, Chronic Back Pain Endocrine: No HEENT: Yes (GLASSES) Loss of Vision: Denies Hearing Impairment: Denies Cancer: No Psychosocial: No Integumentary: No Blood Disorders: Yes (ANEMIA) Adverse Reaction/Blood Tranf: No (HAS HAD BLOOD WITH NO REACTION) Family Medical History Diabetes mellitus maternal grandfather paternal grandfather Gastroenteritis 19 FATHER paternal grandmother ( from sepsis at age 85) maternal grandfather Hypertension 19 MOTHER maternal grandmother maternal grandfather Neoplasm maternal aunt (breast cancer) Cancer, Hypertension Physical Exam Vital Signs Vital Signs - First Documented Capillary Refill : Less Than 3 Seconds Height, Weight, BMI Height: 5'3.00" Weight: 120lbs. 3.0oz. 54.169923fk; 23.00 BMI Method:Estimated General Appearance: No Apparent Distress, WD/WN, Anxious Eyes: Bilateral Eye Normal Inspection, Bilateral Eye PERRL, Bilateral Eye Abnormal EOM HEENT: TMs Normal, Normal ENT Inspection, Pharynx Normal Respiratory: Lungs Clear Cardiovascular: Regular Rate, Rhythm, No Edema Gastrointestinal: Non Tender, Soft Back: No CVA Tenderness Neurologic/Psychiatric: Alert, Oriented x3, No Motor/Sensory Deficits Skin: Normal Color, Warm/Dry Focused Exam Sepsis Stage: Ruled Out Progress/Results/Core Measures Suspected Sepsis SIRS Temperature: Pulse: 91 Respiratory Rate: 16 Laboratory Tests 08/22/21 17:50: White Blood Count 7.5 Blood Pressure 141 /93 Mean: 109 Laboratory Tests 08/22/21 17:50: Creatinine 0.68, Platelet Count 409H, Total Bilirubin 0.2 Results/Orders Lab Results Laboratory Tests Test 08/22/21 17:50 Range/Units White Blood Count 7.5 4.3-11.0 10^3/uL Red Blood Count 3.96 3.80-5.11 10^6/uL Hemoglobin 7.3 L 11.5-16.0 g/dL Hematocrit 26 L 35-52 % Mean Corpuscular Volume 65 L 80-99 fL Mean Corpuscular Hemoglobin 18 L 25-34 pg Mean Corpuscular Hemoglobin Concent 28 L 32-36 g/dL Red Cell Distribution Width 21.4 H 10.0-14.5 % Platelet Count 409 H 130-400 10^3/uL Mean Platelet Volume 10.6 9.0-12.2 fL Immature Granulocyte % (Auto) 0 % Neutrophils (%) (Auto) 62 42-75 % Lymphocytes (%) (Auto) 25 12-44 % Monocytes (%) (Auto) 8 0-12 % Eosinophils (%) (Auto) 3 0-10 % Basophils (%) (Auto) 1 0-10 % Neutrophils # (Auto) 4.7 1.8-7.8 10^3/uL Lymphocytes # (Auto) 1.9 1.0-4.0 10^3/uL Monocytes # (Auto) 0.6 0.0-1.0 10^3/uL Eosinophils # (Auto) 0.3 0.0-0.3 10^3/uL Basophils # (Auto) 0.1 0.0-0.1 10^3/uL Immature Granulocyte # (Auto) 0.0 0.0-0.1 10^3/uL Sodium Level 139 135-145 MMOL/L Potassium Level 3.7 3.6-5.0 MMOL/L Chloride Level 103 98-107 MMOL/L Carbon Dioxide Level 26 21-32 MMOL/L Anion Gap 10 5-14 MMOL/L Blood Urea Nitrogen 13 7-18 MG/DL Creatinine 0.68 0.60-1.30 MG/DL Estimat Glomerular Filtration Rate 115 BUN/Creatinine Ratio 19 Glucose Level 100 70-105 MG/DL Calcium Level 9.2 8.5-10.1 MG/DL Corrected Calcium 8.8 8.5-10.1 MG/DL Total Bilirubin 0.2 0.1-1.0 MG/DL Aspartate Amino Transf (AST/SGOT) 14 5-34 U/L Alanine Aminotransferase (ALT/SGPT) 12 0-55 U/L Alkaline Phosphatase 83 40-136 U/L Total Protein 7.1 6.4-8.2 GM/DL Albumin 4.5 3.2-4.5 GM/DL My Orders Orders - SUNG ZARATE DO Cbc With Automated Diff (08/22/21 17:41) Comprehensive Metabolic Panel (08/22/21 17:41) Ua Culture If Indicated (08/22/21 17:41) Vital Signs/I&O 08/22/21 08/22/21 17:28 17:28 Temp 36.4 Pulse 91 Resp 16 B/P (MAP) 141/93 (109) O2 Delivery Room Air Room Air Capillary Refill : Less Than 3 Seconds Blood Pressure Mean: 109 Departure Communication (Admissions) Patient with hemoglobin 7.3. This represents a delta 0.6 from 6 months ago. Patient's vital signs are stable. Lab work otherwise nondiagnostic. Courtesy work note provided. Patient is instructed to follow-up with her PCP for further management. Impression Primary Impression: Fatigue Additional Impression: Chronic anemia Disposition: HOME, SELF-CARE Condition: Stable Departure-Patient Inst. Decision time for Depature: 18:22 Referrals: [facility] [place] (PCP/Family) Primary Care Physician Patient Instructions: Fatigue ED, Anemia, Possibly From Low Iron, Adult ED Add. Discharge Instructions: You were evaluated in the emergency department for fatigue. Basic lab was obtained. Your hemoglobin level is 7.3. Please follow-up with your PCP for further evaluation and recommendations regarding blood transfusion and iron replacement. Return to the ED if new or worsening symptoms. All discharge instructions reviewed with patient and/or family. Voiced understanding. Work/School Note: Work Release Form Date Seen in the Emergency Department: Aug 22, 2021 Return to Work: Aug 24, 2021 Restrictions: No Restrictions SUNG ZARATE DO Aug 22, 2021 18:11
[2021-08-22 18:16] LABS: CREATININE SERUM 0.68 MG/DL (0.60-1.30); POTASSIUM 3.7 MMOL/L (3.6-5.0)
[2021-08-22 18:17] LABS: ALBUMIN 4.5 GM/DL (3.2-4.5); BILIRUBIN,TOTAL 0.2 MG/DL (0.1-1.0); CALCIUM 9.2 MG/DL (8.5-10.1); TOTAL PROTEIN 7.1 GM/DL (6.4-8.2)
[2021-08-22 18:31] VITALS: BP 136/81
== END 2021-08-22 18:31 | disposition home or self-care (01) ==
LOC: EDUNIT# 17:25 → ER FS 17:26
DX: R53.83 Other fatigue (principal); D64.9 Anemia, unspecified; F17.290 Nicotine dependence, other tobacco product, uncomplicated
CPT/HCPCS: 36415; 80053; 85025

== ENCOUNTER 2021-09-12 16:09 | Emergency (ER) | payer MEDICAID ==
[~2021-09-12] VITALS: Ht 157 cm; Wt 57.0 kg
--- NOTE | 2021-09-12 16:16 | ED General ---
General Stated Complaint: FATIGUE,CONFUSION,HEADACHE Source of Information: Patient History of Present Illness Date Seen by Provider: September 12, 2021 Time Seen by Provider: 16:14 Initial Comments 36 yo female presenting with complaint of feeling fatigued, dizzy, light headed and weak. She reports having a history of anemia and had to have transfusions in the past. She was seen August 22 in the ED for similar complaints and had Hgb previously of 7.9 that was 7.3 that day. She states she has had continued heavy menstrual flow since being seen August 22 so she came to be seen in the ED as she was too weak to go to work today. She has been getting headaches as well and reports those are another symptoms she has had with anemia in past. She has concerns that she may need another transfusion so she came to the ED when she was feeling so bad today. Associated Systoms: No Chest Pain, No Cough, No Diaphoresis, No Fever/Chills; Headaches; No Loss of Appetite; Malaise; No Nausea/Vomiting, No Rash, No Seizure, No Shortness of Air, No Syncope; Weakness Allergies and Home Medications Allergies Coded Allergies: ciprofloxacin (Unverified Allergy, Mild, RASH, 08/02/19) Patient Home Medication List Home Medication List Reviewed: Yes Cephalexin (Cephalexin) 500 Mg Capsule, 500 MG PO QID Prescribed by: CATARINO ALCALA on 09/12/211755 Penicillin V Potassium (Penicillin V Potassium) 500 Mg Tablet, 500 MG PO QID Prescribed by: SUNG ZARATE on 07/05/21 015 Tramadol HCl (Tramadol HCl) 50 Mg Tablet, 100 MG PO Q6H PRN for PAIN Prescribed by: SUNG ZARATE on 07/05/21 0158 Review of Systems Review of Systems Constitutional: No chills; dizziness; No fever; malaise, weakness EENTM: no symptoms reported Respiratory: no symptoms reported Cardiovascular: no symptoms reported Gastrointestinal: no symptoms reported Genitourinary: see HPI Musculoskeletal: no symptoms reported Skin: No rash Psychiatric/Neurological: Headache Past Uvvpwbe-Fidbiq-Wmzqyc Hx Immunizations Up To Date Tetanus Booster (TDap): Unknown PED Vaccines UTD: Yes First/Initial COVID19 Vaccinat: denies Seasonal Allergies Seasonal Allergies: No Past Medical History Surgery/Hospitalization HX: X 2TONSILLECTOMYWISDOM TEETHEGD/COLONOSCOPY > 10 YEARS AGO CHRONIC BLOOD LOSS, BLOOD TRANSFUSION Surgeries: Yes Adenoidectomy, Breast, Section, Tonsillectomy Respiratory: No Currently Using CPAP: No Currently Using BIPAP: No Cardiac: No Neurological: No 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: No 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 Sexually Transmitted Disease: No HIV/AIDS: No Genitourinary: Yes (HX UTI'S) Kidney Infection, UTI-Chronic Gastrointestinal: Yes Colitis Musculoskeletal: Yes Scoliosis, Chronic Back Pain Endocrine: No HEENT: Yes (GLASSES) Loss of Vision: Denies Hearing Impairment: Denies Cancer: No Psychosocial: No Integumentary: No Blood Disorders: Yes (ANEMIA) Adverse Reaction/Blood Tranf: No (HAS HAD BLOOD WITH NO REACTION) Family Medical History Diabetes mellitus maternal grandfather paternal grandfather Gastroenteritis 19 FATHER paternal grandmother ( from sepsis at age 85) maternal grandfather Hypertension 19 MOTHER maternal grandmother maternal grandfather Neoplasm maternal aunt (breast cancer) Cancer, Hypertension Physical Exam Vital Signs Vital Signs - First Documented 09/12/21 16:29 Temp 36.4 Pulse 98 Resp 16 B/P (MAP) 124/82 (96) Pulse Ox 100 O2 Delivery Room Air Capillary Refill : Height, Weight, BMI Height: 5'3.00" Weight: 120lbs. 3.0oz. [id number]; 23.00 BMI Method:Estimated General Appearance: Anxious, Thin Eyes: Bilateral Eye Conjunctivae Pale HEENT: PERRL/EOMI, Pharynx Normal Neck: Full Range of Motion, Normal Inspection, Non Tender, Supple Respiratory: Chest Non Tender, Lungs Clear, Normal Breath Sounds, No Accessory Muscle Use, No Respiratory Distress Cardiovascular: Regular Rate, Rhythm, Normal Peripheral Pulses Gastrointestinal: Normal Bowel Sounds, No Pulsatile Mass, Non Tender, Soft Rectal: Deferred Extremity: Normal Capillary Refill, Normal Inspection, No Pedal Edema Neurologic/Psychiatric: Alert, Oriented x3, No Motor/Sensory Deficits, 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 Norm as Tested Skin: Warm/Dry, Pallor Progress/Results/Core Measures Suspected Sepsis SIRS Temperature: Pulse: Respiratory Rate: Laboratory Tests 09/12/21 16:35: White Blood Count 7.9 Blood Pressure / Mean: Laboratory Tests 09/12/21 16:35: Creatinine 0.63, Platelet Count 348, Total Bilirubin 0.2 Results/Orders Lab Results Laboratory Tests Test 09/12/21 16:35 Range/Units White Blood Count 7.9 4.3-11.0 10^3/uL Red Blood Count 4.27 3.80-5.11 10^6/uL Hemoglobin 7.7 L 11.5-16.0 g/dL Hematocrit 28 L 35-52 % Mean Corpuscular Volume 65 L 80-99 fL Mean Corpuscular Hemoglobin 18 L 25-34 pg Mean Corpuscular Hemoglobin Concent 28 L 32-36 g/dL Red Cell Distribution Width 22.1 H 10.0-14.5 % Platelet Count 348 130-400 10^3/uL Mean Platelet Volume 11.5 9.0-12.2 fL Immature Granulocyte % (Auto) 0 % Neutrophils (%) (Auto) 67 42-75 % Lymphocytes (%) (Auto) 22 12-44 % Monocytes (%) (Auto) 6 0-12 % Eosinophils (%) (Auto) 3 0-10 % Basophils (%) (Auto) 2 0-10 % Neutrophils # (Auto) 5.3 1.8-7.8 X 10^3 Lymphocytes # (Auto) 1.7 1.0-4.0 X 10^3 Monocytes # (Auto) 0.5 0.0-1.0 X 10^3 Eosinophils # (Auto) 0.2 0.0-0.3 10^3/uL Basophils # (Auto) 0.1 0.0-0.1 10^3/uL Immature Granulocyte # (Auto) 0.0 0.0-0.1 10^3/uL Urine Color YELLOW Urine Clarity TURBID H Urine pH 7.0 5-9 Urine Specific [place] 1.020 1.016-1.022 Urine Protein NEGATIVE NEGATIVE Urine Glucose (UA) NEGATIVE NEGATIVE Urine Ketones NEGATIVE NEGATIVE Urine Nitrite NEGATIVE NEGATIVE Urine Bilirubin NEGATIVE NEGATIVE Urine Urobilinogen 0.2 < = 1.0 MG/DL Urine Leukocyte Esterase 1+ H NEGATIVE Urine RBC (Auto) NEGATIVE NEGATIVE Urine RBC NONE /HPF Urine WBC 25-50 H /HPF Urine Squamous Epithelial Cells 0-2 /HPF Urine Renal Epithelial Cells RARE /HPF Urine Crystals PRESENT H /LPF Urine Amorphous Sediment LARGE RAMIRO PHOSPHATE H /LPF Urine Bacteria MANY /HPF Urine Casts NONE /LPF Urine Mucus LARGE H /LPF Urine Culture Indicated YES Sodium Level 145 135-145 MMOL/L Potassium Level 3.8 3.6-5.0 MMOL/L Chloride Level 110 H 98-107 MMOL/L Carbon Dioxide Level 24 21-32 MMOL/L Anion Gap 11 5-14 MMOL/L Blood Urea Nitrogen 15 7-18 MG/DL Creatinine 0.63 0.60-1.30 MG/DL Estimat Glomerular Filtration Rate 116 BUN/Creatinine Ratio 24 Glucose Level 76 70-105 MG/DL Calcium Level 9.2 8.5-10.1 MG/DL Corrected Calcium 8.5-10.1 MG/DL Total Bilirubin 0.2 0.1-1.0 MG/DL Aspartate Amino Transf (AST/SGOT) 13 5-34 U/L Alanine Aminotransferase (ALT/SGPT) 11 0-55 U/L Alkaline Phosphatase 88 40-136 U/L Total Protein 7.6 6.4-8.2 GM/DL Albumin 4.7 H 3.2-4.5 GM/DL Urine Opiates Screen NEGATIVE NEGATIVE Urine Oxycodone Screen NEGATIVE NEGATIVE Urine Methadone Screen NEGATIVE NEGATIVE Urine Propoxyphene Screen NEGATIVE NEGATIVE Urine Barbiturates Screen NEGATIVE NEGATIVE Ur Tricyclic Antidepressants Screen NEGATIVE NEGATIVE Urine Phencyclidine Screen NEGATIVE NEGATIVE Urine Amphetamines Screen POSITIVE H NEGATIVE Urine Methamphetamines Screen NEGATIVE NEGATIVE Urine Benzodiazepines Screen NEGATIVE NEGATIVE Urine Cocaine Screen NEGATIVE NEGATIVE Urine Cannabinoids Screen POSITIVE H NEGATIVE Smear Scan PLATELETS OK My Orders Orders - CATARINO ALCALA MD Comprehensive Metabolic Panel (09/12/21 16:21) Ua Culture If Indicated (09/12/21 16:21) Ed Iv/Invasive Line Start (09/12/21 16:21) Cbc With Automated Diff (09/12/21 16:21) Drug Screen Stat (Urine) (09/12/21 16:21) Urine Bedside (09/12/21 16:21) Orthostatic Vital Signs (Adult (09/12/21 16:21) Ns Iv 1000 Ml (Sodium Chloride 0.9%) (09/12/21 16:49) Urine Culture (09/12/21 16:35) Ceftriaxone 1 Gm Pre-Mix (Rocephin 1 Gm (09/12/21 17:42) Vital Signs/I&O 09/12/21 09/12/21 16:29 16:48 Temp 36.4 Pulse 98 86 96 84 Resp 16 B/P (MAP) 124/82 (96) 110/68 (82) 132/81 (98) 125/78 (94) Pulse Ox 100 O2 Delivery Room Air Capillary Refill : Progress Note #1: Progress Note Check basic labs and urine. Check orthostatics and may need to give IVF for hydration while waiting on labs. Progress Note #2: Progress Note Labs appear stable without acute significant abnormality. She has chronic anemia and her hemoglobin is 7.7 today which is up from 2 weeks ago. She has signs for a urinary tract infection. This could be contributing to her feeling more fatigued and rundown. We will start her on Rocephin here in the ED and discharged on cephalexin. Counseled to check with the clinic about possible iron infusions or outpatient transfusion for chronic anemia symptoms Departure Impression Primary Impression: Malaise and fatigue Additional Impressions: Anemia due to chronic blood loss Cystitis without hematuria Disposition: HOME, SELF-CARE Condition: Stable Departure-Patient Inst. Decision time for Depature: 17:49 Referrals: [facility] [place] (PCP/Family) Primary Care Physician Patient Instructions: Fatigue ED, Weakness ED, Anemia, Possibly From Low Iron, Adult ED, Urinary Tract Infection, Adult ED Add. Discharge Instructions: Take full course of antibiotics to treat for urine infection. Check with Gynecology about your heavy periods and possible ablation. Check with clinic as they may want to set you up for Iron infusion or transfusion as outpatient for your continued symptoms. Your Hemoglobin is 7.7 today so it is actually up from August 22. Scripts Cephalexin (Cephalexin) 500 Mg Capsule 500 MG PO QID for UTI for 7 Days, #28 CAP 0 Refills Prov: CATARINO ALCALA MD 09/12/21 Work/School Note: Work Release Form Date Seen in the Emergency Department: September 12, 2021 Return to Work: September 14, 2021 Restrictions: No Restrictions CATARINO ALCALA MD September 12, 2021 16:15
[2021-09-12 16:48] VITALS: BP_SYST 110; BP_SYST 125; BP_SYST 132; BP_DIAS 68; BP_DIAS 78; BP_DIAS 81
[2021-09-12] MEDS ORDERED: NS IV 1000 ML 1,000 ML IV STA (16:49)
[2021-09-12 17:22] LABS: BUN/CREATININE RATIO 24; CALCIUM 9.2 MG/DL (8.5-10.1); CARBON DIOXIDE 24 MMOL/L (21-32); CHLORIDE 110 MMOL/L (98-107); CREATININE SERUM 0.63 MG/DL (0.60-1.30); GFR ESTIMATED 116; GLUCOSE 76 MG/DL (70-105); POTASSIUM 3.8 MMOL/L (3.6-5.0); SODIUM 145 MMOL/L (135-145)
[2021-09-12 17:23] LABS: ALANINE AMINOTRANSFERASE 11 U/L (0-55); ALBUMIN 4.7 GM/DL (3.2-4.5); ALKALINE PHOSPHATASE 88 U/L (40-136); BILIRUBIN,TOTAL 0.2 MG/DL (0.1-1.0); TOTAL PROTEIN 7.6 GM/DL (6.4-8.2)
[2021-09-12 17:25] LABS: HEMATOCRIT 28 % (35-52); HEMOGLOBIN 7.7 g/dL (11.5-16.0); MEAN CORPUSCULAR HEMOGLOBIN 18 pg (25-34); MEAN CORPUSCULAR VOLUME 65 fL (80-99); WHITE BLOOD COUNT 7.9 10^3/uL (4.3-11.0)
[2021-09-12 17:26] LABS: BASOPHILS # (AUTO) 0.1 10^3/uL (0.0-0.1); BASOPHILS % (AUTO) 2 % (0-10); EOSINOPHILS # (AUTO) 0.2 10^3/uL (0.0-0.3); EOSINOPHILS % (AUTO) 3 % (0-10); LYMPHOCYTES # (AUTO) 1.7 X 10^3 (1.0-4.0); LYMPHOCYTES % (AUTO) 22 % (12-44); MEAN PLATELET VOLUME 11.5 fL (9.0-12.2); MONOCYTES # (AUTO) 0.5 X 10^3 (0.0-1.0); MONOCYTES % (AUTO) 6 % (0-12); NEUTROPHILS # (AUTO) 5.3 X 10^3 (1.8-7.8); NEUTROPHILS % (AUTO) 67 % (42-75); PLATELET COUNT 348 10^3/uL (130-400)
[2021-09-12 17:27] LABS: MEAN CORPUSCULAR HGB CONC 28 g/dL (32-36); SMEAR SCAN COMMENT PLATELETS OK
[2021-09-12 17:29] LABS: CLARITY,URINE TURBID; COLOR,URINE YELLOW; GLUCOSE, URINE (UA) NEGATIVE (NEGATIVE); PROTEIN,URINE NEGATIVE (NEGATIVE)
[2021-09-12 17:30] LABS: AMORPHOUS SEDIMENT,UR LARGE AMOR PHOSPHATE /LPF; BACTERIA,URINE MANY /HPF; BILIRUBIN,URINE NEGATIVE (NEGATIVE); KETONES,URINE NEGATIVE (NEGATIVE); LEUKOCYTE ESTERASE ,URINE 1+ (NEGATIVE); NITRITE,URINE NEGATIVE (NEGATIVE); RENAL EPITHELIAL CELLS,URINE RARE /HPF; SQUAMOUS EPITHELIAL CELL,UR 0-2 /HPF; WBC,URINE 25-50 /HPF
[2021-09-12 17:32] LABS: AMPHETAMINE SCREEN, URINE POSITIVE (NEGATIVE); BARBITURATE SCREEN URINE NEGATIVE (NEGATIVE); BENZODIAZEPINES SCREEN URINE NEGATIVE (NEGATIVE); CANNABINOID SCREEN, URINE POSITIVE (NEGATIVE); COCAINE SCREEN URINE NEGATIVE (NEGATIVE); METHADONE STAT NEGATIVE (NEGATIVE); OPIATE SCREEN URINE NEGATIVE (NEGATIVE); OXYCODONE STAT NEGATIVE (NEGATIVE); PROPOXYPHENE STAT NEGATIVE (NEGATIVE); TRICYCLIC ANTIDEPRESSANTS SCRE NEGATIVE (NEGATIVE)
[2021-09-12] MEDS ORDERED: cefTRIAXone 1 GM PRE-MIX 50 ML IV STA (17:42)
[2021-09-12] MEDS ORDERED: CEPH500C PO (17:56)
== END 2021-09-12 18:00 | disposition home or self-care (01) ==
LOC: EDUNIT# 16:09 → ER FS 16:10
DX: R53.83 Other fatigue (principal); R53.81 Other malaise; D50.0 Iron deficiency anemia secondary to blood loss (chronic); N30.00 Acute cystitis without hematuria
CPT/HCPCS: 36415; 80053; 80306; 81000; 84703; 85025; 87088

== ENCOUNTER 2021-09-17 02:40 | Emergency (ER) | payer MEDICAID ==
[~2021-09-17] VITALS: Ht 157.4 cm; Wt 54.1 kg
[~2021-09-17 02:40] MED LIST changes: +CEPH500C PO
--- NOTE | 2021-09-17 02:58 | ED General ---
General Chief Complaint: General Problems/Pain Stated Complaint: TROUBLE BREATHING History of Present Illness Date Seen by Provider: September 17, 2021 Time Seen by Provider: 02:50 Initial Comments 36-year-old female presents because she feels like she "cannot get her breath" patient reports going on for about 2 days. Patient also complains of generalized fatigue. Patient has a history of anemia due to chronic heavy menstrual period. Patient was just seen here about 5 days ago with similar symptoms. No reports of fever, chills, cough. She denies any chest pain, nausea or vomiting. She describes generalized fatigue. Allergies and Home Medications Allergies Coded Allergies: ciprofloxacin (Unverified Allergy, Mild, RASH, 08/02/19) Patient Home Medication List Home Medication List Reviewed: Yes Cephalexin (Cephalexin) 500 Mg Capsule, 500 MG PO QID Prescribed by: CATARINO ALCALA on 09/12/211755 Discontinued Medications Penicillin V Potassium (Penicillin V Potassium) 500 Mg Tablet, 500 MG PO QID Discontinued Reason: Referral/FU Appt-Addtl Prescribed by: SUNG ZARATE on 07/05/21156 Last Action: Discontinued Tramadol HCl (Tramadol HCl) 50 Mg Tablet, 100 MG PO Q6H PRN for PAIN Discontinued Reason: Referral/FU Appt-Addtl Prescribed by: SUNG ZARATE on 07/05/21157 Last Action: Discontinued Review of Systems Review of Systems Constitutional: No chills, No fever; malaise Respiratory: see HPI; No cough, No orthopnea; short of breath Cardiovascular: No chest pain, No palpitations Gastrointestinal: No abdominal pain, No nausea Genitourinary: see HPI Musculoskeletal: no symptoms reported Skin: no symptoms reported Psychiatric/Neurological: No Symptoms Reported Hematologic/Lymphatic: No Symptoms Reported Past Nmugzvb-Dhcjac-Mjxksx Hx Patient Social History Smoking Status: Unknown if Ever Smoked Substance use?: Yes Substance type: Marijuana Additional substance use comme: Hx of Methamphetamine usage and rehab Alcohol Use?: Unable to obtain Immunizations Up To Date Tetanus Booster (TDap): Unknown PED Vaccines UTD: Yes First/Initial COVID19 Vaccinat: denies Second COVID19 Vaccination Vineet: denies Third COVID19 Vaccination Date: denies Seasonal Allergies Seasonal Allergies: No Past Medical History Surgery/Hospitalization HX: X 2,TONSILLECTOMY, WISDOM TEETH, EGD/COLONOSCOPY > 10 YEARS AGO CHRONIC BLOOD LOSS, BLOOD TRANSFUSION, HX SUBSTANCE ABUSE Surgeries: Yes Adenoidectomy, Breast, Section, Tonsillectomy Respiratory: No Currently Using CPAP: No Currently Using BIPAP: No Cardiac: No Neurological: No 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: 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 Sexually Transmitted Disease: No HIV/AIDS: No Genitourinary: Yes (HX UTI'S) Kidney Infection, UTI-Chronic Gastrointestinal: Yes Colitis Musculoskeletal: Yes Scoliosis, Chronic Back Pain Endocrine: No HEENT: Yes (GLASSES) Loss of Vision: Denies Hearing Impairment: Denies Cancer: No Psychosocial: No Integumentary: No Blood Disorders: Yes (ANEMIA) Adverse Reaction/Blood Tranf: No (HAS HAD BLOOD WITH NO REACTION) Family Medical History Diabetes mellitus maternal grandfather paternal grandfather Gastroenteritis 19 FATHER paternal grandmother ( from sepsis at age 85) maternal grandfather Hypertension 19 MOTHER maternal grandmother maternal grandfather Neoplasm maternal aunt (breast cancer) Cancer, Hypertension Physical Exam Vital Signs Vital Signs - First Documented 09/17/21 02:45 Temp 36.8 Pulse 125 Resp 20 B/P (MAP) 151/103 (119) Pulse Ox 100 O2 Delivery Room Air Capillary Refill : Height, Weight, BMI Height: 5'3.00" Weight: 120lbs. 3.0oz. 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 Norm as Tested Skin: Normal Color, Warm/Dry Progress/Results/Core Measures Suspected Sepsis SIRS Temperature: Pulse: Respiratory Rate: Laboratory Tests 09/17/21 03:06: White Blood Count 7.3 Blood Pressure / Mean: Laboratory Tests 09/17/21 03:06: Creatinine 0.91, Platelet Count 437H, Total Bilirubin 0.4 Results/Orders Lab Results Laboratory Tests Test 09/17/21 03:06 Range/Units White Blood Count 7.3 4.3-11.0 10^3/uL Red Blood Count 4.12 3.80-5.11 10^6/uL Hemoglobin 7.4 L 11.5-16.0 g/dL Hematocrit 26 L 35-52 % Mean Corpuscular Volume 63 L 80-99 fL Mean Corpuscular Hemoglobin 18 L 25-34 pg Mean Corpuscular Hemoglobin Concent 29 L 32-36 g/dL Red Cell Distribution Width 20.9 H 10.0-14.5 % Platelet Count 437 H 130-400 10^3/uL Mean Platelet Volume 10.3 9.0-12.2 fL Immature Granulocyte % (Auto) 0 % Neutrophils (%) (Auto) 56 42-75 % Lymphocytes (%) (Auto) 30 12-44 % Monocytes (%) (Auto) 11 0-12 % Eosinophils (%) (Auto) 1 0-10 % Basophils (%) (Auto) 2 0-10 % Neutrophils # (Auto) 4.1 1.8-7.8 10^3/uL Lymphocytes # (Auto) 2.2 1.0-4.0 10^3/uL Monocytes # (Auto) 0.8 0.0-1.0 10^3/uL Eosinophils # (Auto) 0.1 0.0-0.3 10^3/uL Basophils # (Auto) 0.1 0.0-0.1 10^3/uL Immature Granulocyte # (Auto) 0.0 0.0-0.1 10^3/uL Sodium Level 137 135-145 MMOL/L Potassium Level 3.3 L 3.6-5.0 MMOL/L Chloride Level 104 98-107 MMOL/L Carbon Dioxide Level 21 21-32 MMOL/L Anion Gap 12 5-14 MMOL/L Blood Urea Nitrogen 21 H 7-18 MG/DL Creatinine 0.91 0.60-1.30 MG/DL Estimat Glomerular Filtration Rate 83 BUN/Creatinine Ratio 23 Glucose Level 98 70-105 MG/DL Calcium Level 9.7 8.5-10.1 MG/DL Corrected Calcium 8.5-10.1 MG/DL Total Bilirubin 0.4 0.1-1.0 MG/DL Aspartate Amino Transf (AST/SGOT) 17 5-34 U/L Alanine Aminotransferase (ALT/SGPT) 14 0-55 U/L Alkaline Phosphatase 78 40-136 U/L Troponin I < 0.30 <0.30 NG/ML Total Protein 7.8 6.4-8.2 GM/DL Albumin 4.8 H 3.2-4.5 GM/DL My Orders Orders - SARAH ARIZMENDI DO Cbc With Automated Diff (09/17/21 02:53) Comprehensive Metabolic Panel (09/17/21 02:53) Ua Culture If Indicated (09/17/21 02:53) Troponin I Fs (09/17/21 02:53) Chest 1 View Ap/Pa Only (09/17/21 02:53) Ekg Tracing (09/17/21 02:53) Monitor-Rhythm Ecg Trace Only (09/17/21 02:53) Drug Screen Stat (Urine) (09/17/21 02:58) Vital Signs/I&O 09/17/21 09/17/21 02:45 04:10 Temp 36.8 36.8 Pulse 125 88 Resp 20 20 B/P (MAP) 151/103 (119) 150/88 Pulse Ox 100 98 O2 Delivery Room Air Room Air Capillary Refill : Progress Note : Progress Note Patient's x-ray shows no acute infiltrates or changes. Patient with a negative EKG for ST elevation or's findings. Patient's hemoglobin is stable. Patient was extremely anxious throughout her stay and restless. I suspect this is likely due to an underlying methamphetamine use which is likely causing her symptoms. Patient refused to provide us a urine but she did have a positive urine drug screen a few days ago. Patient shows no signs of dyspnea throughout her stay with her O2 saturations being 99 to 100% while she was here in the ER. Patient with chronic anemia which is also likely contributing to her symptoms but patient is does not follow-up frequently and does not take her iron as prescribed. As recommended she start back on her iron and follow-up with her primary care provider for further outpatient evaluation ECG Initial ECG Impression Date: September 17, 2021 Initial ECG Impression Time: 03:08 Initial ECG Rhythm: Normal Sinus Initial ECG Impression: Nonspecific Changes Comment No acute findings Departure Impression Primary Impression: Iron deficiency anemia Qualified Codes: D50.0 - Iron deficiency anemia secondary to blood loss (chronic) Additional Impression: Anxiety Disposition: 01 HOME, SELF-CARE Condition: Stable Departure-Patient Inst. Referrals: [facility] (PCP/Family) Primary Care Physician Patient Instructions: Anemia Caused by Low Iron, Adult (DC) Add. Discharge Instructions: Follow-up with your primary care provider for further evaluation if symptoms continue. All discharge instructions reviewed with patient and/or family. Voiced understanding. SARAH ARIZMENDI DO September 17, 2021 02:58
[2021-09-17 03:07] LABS: BASOPHILS # (AUTO) 0.1 10^3/uL (0.0-0.1); BASOPHILS % (AUTO) 2 % (0-10); EOSINOPHILS # (AUTO) 0.1 10^3/uL (0.0-0.3); EOSINOPHILS % (AUTO) 1 % (0-10); HEMATOCRIT 26 % (35-52); HEMOGLOBIN 7.4 g/dL (11.5-16.0); LYMPHOCYTES # (AUTO) 2.2 10^3/uL (1.0-4.0); LYMPHOCYTES % (AUTO) 30 % (12-44); MEAN CORPUSCULAR HEMOGLOBIN 18 pg (25-34); MEAN CORPUSCULAR HGB CONC 29 g/dL (32-36); MEAN CORPUSCULAR VOLUME 63 fL (80-99); MEAN PLATELET VOLUME 10.3 fL (9.0-12.2); MONOCYTES # (AUTO) 0.8 10^3/uL (0.0-1.0); MONOCYTES % (AUTO) 11 % (0-12); NEUTROPHILS # (AUTO) 4.1 10^3/uL (1.8-7.8); NEUTROPHILS % (AUTO) 56 % (42-75); PLATELET COUNT 437 10^3/uL (130-400); WHITE BLOOD COUNT 7.3 10^3/uL (4.3-11.0)
[2021-09-17 03:29] LABS: ALANINE AMINOTRANSFERASE 14 U/L (0-55); ALBUMIN 4.8 GM/DL (3.2-4.5); ALKALINE PHOSPHATASE 78 U/L (40-136); BILIRUBIN,TOTAL 0.4 MG/DL (0.1-1.0); BUN/CREATININE RATIO 23; CALCIUM 9.7 MG/DL (8.5-10.1); CARBON DIOXIDE 21 MMOL/L (21-32); CHLORIDE 104 MMOL/L (98-107); CREATININE SERUM 0.91 MG/DL (0.60-1.30); GFR ESTIMATED 83; GLUCOSE 98 MG/DL (70-105); POTASSIUM 3.3 MMOL/L (3.6-5.0); SODIUM 137 MMOL/L (135-145); TOTAL PROTEIN 7.8 GM/DL (6.4-8.2)
[2021-09-17 04:10] VITALS: BP 150/88
--- NOTE | 2021-09-17 07:07 | Diagnostic Imaging Report ---
INDICATION: Shortness of breath. COMPARISON: 03/19/2018. FINDINGS: Single view of the chest demonstrates clear lungs bilaterally. The heart is normal. There is no pneumothorax but osseous structures normal. IMPRESSION: Negative chest. Dictated by: Dictated on workstation # [id number]
== END 2021-09-17 04:10 | disposition home or self-care (01) ==
LOC: EDUNIT# 02:40 → ER FS 02:42
DX: D50.0 Iron deficiency anemia secondary to blood loss (chronic) (principal); F41.9 Anxiety disorder, unspecified
CPT/HCPCS: 36415; 71045; 80053; 84484; 85025; 93005; 93041

== ENCOUNTER 2021-10-23 21:08 | Emergency (ER) | payer MEDICAID ==
[~2021-10-23] VITALS: Ht 157.5 cm; Wt 56.7 kg
--- NOTE | 2021-10-23 22:24 | ED Integumentary General ---
General Chief Complaint: Skin/Wound Problems Stated Complaint: POSS STAPH WOUND BUTTOCK Source: patient Exam Limitations: no limitations History of Present Illness Date Seen by Provider: Oct 23, 2021 Time Seen by Provider: 22:19 Initial Comments This is a well-appearing 36-year-old female who presented to the ER with complaints of an abscess on her left buttock. States that this developed a few days ago. She has a history of of abscesses and MRSA, States that she would like some antibiotics to help treat her infection. She refuses to have incision and drainage of the site, states that it is draining at this time. No fever, chills, cough, shortness of breath, nausea, vomiting, diarrhea, abdominal pain. Allergies and Home Medications Allergies Coded Allergies: ciprofloxacin (Unverified Allergy, Mild, RASH, 08/02/19) Patient Home Medication List Home Medication List Reviewed: Yes Cephalexin (Cephalexin) 500 Mg Capsule, 500 MG PO QID Prescribed by: CATARINO ALCALA on 09/12/21 1756 Sulfamethoxazole/Trimethoprim (Bactrim Ds Tablet) 1 Each Tablet, 1 EACH PO BID Prescribed by: REGGIE CAMPBELL on 10/23/21 2230 Review of Systems Review of Systems Constitutional: no symptoms reported Past Oveezed-Udmmqb-Odcmib Hx Patient Social History Tobacco Use?: Yes Tobacco type used: Cigarettes Use of E-Cig and/or Vaping dev: No Substance use?: No Alcohol Use?: No Pt feels they are or have been: No Immunizations Up To Date Tetanus Booster (TDap): Unknown PED Vaccines UTD: Yes Influenza Vaccine Up-to-Date: No; Not Current First/Initial COVID19 Vaccinat: denies Second COVID19 Vaccination Vineet: denies Third COVID19 Vaccination Date: denies Seasonal Allergies Seasonal Allergies: No Past Medical History Surgery/Hospitalization HX: X 2,TONSILLECTOMY, WISDOM TEETH, EGD/COLONOSCOPY > 10 YEARS AGO CHRONIC BLOOD LOSS, BLOOD TRANSFUSION, HX SUBSTANCE ABUSE Surgeries: Yes Adenoidectomy, Breast, Section, Tonsillectomy Respiratory: No Currently Using CPAP: No Currently Using BIPAP: No Cardiac: No Neurological: No 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: No 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 Sexually Transmitted Disease: No HIV/AIDS: No Genitourinary: Yes (HX UTI'S) Kidney Infection, UTI-Chronic Gastrointestinal: Yes Colitis Musculoskeletal: Yes Scoliosis, Chronic Back Pain Endocrine: No HEENT: Yes (GLASSES) Loss of Vision: Denies Hearing Impairment: Denies Cancer: No Psychosocial: No Integumentary: No Blood Disorders: Yes (ANEMIA) Adverse Reaction/Blood Tranf: No (HAS HAD BLOOD WITH NO REACTION) Family Medical History Diabetes mellitus maternal grandfather paternal grandfather Gastroenteritis 19 FATHER paternal grandmother ( from sepsis at age 85) maternal grandfather Hypertension 19 MOTHER maternal grandmother maternal grandfather Neoplasm maternal aunt (breast cancer) Cancer, Hypertension Physical Exam Vital Signs Vital Signs - First Documented 10/23/21 22:07 Temp 36.2 Pulse 86 Resp 16 B/P (MAP) 132/85 (101) Pulse Ox 100 O2 Delivery Room Air Capillary Refill : General Appearance: WD/WN, no apparent distress HEENT: PERRL/EOMI, normal ENT inspection Neck: full range of motion, normal inspection Cardiovascular: regular rate, rhythm, no murmur Respiratory: lungs clear, normal breath sounds Neurologic/Psychiatric: no motor/sensory deficits, alert, normal mood/affect, oriented x 3 Skin: normal color, warm/dry Skin Problem Location: other (Left buttock ) Skin Problem Character: abscess (4cm circular area of erythema with central induration and small open area draining nash/white discharge. ) Lymphatic: no adenopathy Progress/Results/Core Measures Results/Orders My Orders Orders - REGGIE CAMPBELL APRN Wound Culture (10/23/21 22:16) Sulfamethoxazole/Trimet Ds Tab (Bactrim (10/23/21 22:30) Hydrocodone/Apap 5/325 Tablet (Lortab 5 (10/23/21 22:30) Rx-Hydrocodone/Apap 5-325 Mg (Rx-Vicodin (10/23/21 22:45) Medications Given in ED Current Medications Medications Dose Ordered Sig/Nicole Route Start Time Stop Time Status Last Admin Dose Admin Acetaminophen/ Hydrocodone Bitart 1 ea ONCE ONCE PO 10/23/21 22:30 10/23/21 22:31 DC 10/23/21 22:49 1 EA Acetaminophen/ Hydrocodone Bitart 1 ea Q6H PRN PO 10/23/21 22:45 10/23/21 22:55 DC 10/23/21 22:49 1 EA Trimethoprim/ Sulfamethoxazole 1 ea ONCE ONCE PO 10/23/21 22:30 10/23/21 22:31 DC 10/23/21 22:48 1 EA Vital Signs/I&O 10/23/21 10/23/21 22:07 22:52 Temp 36.2 Pulse 86 86 Resp 16 16 B/P (MAP) 132/85 (101) 128/87 Pulse Ox 100 99 O2 Delivery Room Air Room Air Progress Progress Note : Progress Note Obtained wound culture of the area. Went ahead and given first dose of Bactrim in the emergency department. Additionally give her something for comfort. We will just give her a take-home pack of hydrocodone. Instructed that if her symptoms persist or worsen despite taking antibiotics as directed she will probably need to have the area opened and drained. Verbalized understanding. Discharge plan of care reviewed and she is agreeable with plan. Departure Impression Primary Impression: Skin abscess Disposition: HOME, SELF-CARE Condition: Stable Departure-Patient Inst. Decision time for Depature: 22:24 [facility]errals: [facility] [place] (PCP/Family) Primary Care Physician Patient Instructions: Skin Abscess Add. Discharge Instructions: Plan: 1. Take Bactrim twice a day as directed and complete full course. 2. May take Hydrocodone 5/325mg by mouth every 6 hours as needed for severe pain. 3. Follow up with your doctor or return if symptoms persist or worsen despite antibiotics. 4. Return to ER for any new, concerning, or worsening symptoms. All discharge instructions reviewed with patient and/or family. Voiced understanding. Scripts Sulfamethoxazole/Trimethoprim (Bactrim Ds Tablet) 1 Each Tablet 1 EACH PO BID for 7 Days, #14 TAB 0 Refills Prov: REGGIE CAMPBELL COMPUTER SERVICE TECHNICIAN 10/23/21 REGGIE CAMPBELL COMPUTER SERVICE TECHNICIAN Oct 23, 2021 22:24
[2021-10-23] MEDS ORDERED: HYDROcodone/APAP 5 MG/325 MG (LORTAB) TAB PO ONE (22:30)
[2021-10-23] MEDS ORDERED: TRIM/SULFAMETH 160/800 (SEPTRA DS) TAB PO ONE (22:30)
[2021-10-23] MEDS ORDERED: SULF1TAB38 PO (22:30)
[2021-10-23 22:52] VITALS: BP 128/87
== END 2021-10-23 22:52 | disposition home or self-care (01) ==
LOC: EDUNIT# 21:08 → ER 21:09
DX: L02.31 Cutaneous abscess of buttock (principal); F17.210 Nicotine dependence, cigarettes, uncomplicated; Z86.14 Personal history of Methicillin resistant Staphylococcus aureus infection
CPT/HCPCS: 87070; 87077; 87186; 87205

== ENCOUNTER 2021-11-08 08:11 | Emergency (ER) | payer MEDICAID ==
[~2021-11-08] VITALS: Ht 157.4 cm; Wt 56.7 kg
[2021-11-08 08:44] VITALS: BP_SYST 122; BP_SYST 125; BP_SYST 130; BP_DIAS 83; BP_DIAS 86; BP_DIAS 90
[2021-11-08 08:51] LABS: BASOPHILS # (AUTO) 0.1 10^3/uL (0.0-0.1); BASOPHILS % (AUTO) 2 % (0-10); EOSINOPHILS # (AUTO) 0.2 10^3/uL (0.0-0.3); EOSINOPHILS % (AUTO) 4 % (0-10); HEMATOCRIT 30 % (35-52); LYMPHOCYTES # (AUTO) 1.8 10^3/uL (1.0-4.0); LYMPHOCYTES % (AUTO) 30 % (12-44); MEAN CORPUSCULAR HEMOGLOBIN 18 pg (25-34); MEAN CORPUSCULAR HGB CONC 27 g/dL (32-36); MEAN CORPUSCULAR VOLUME 66 fL (80-99); MONOCYTES # (AUTO) 0.4 10^3/uL (0.0-1.0); MONOCYTES % (AUTO) 7 % (0-12); NEUTROPHILS # (AUTO) 3.4 10^3/uL (1.8-7.8); NEUTROPHILS % (AUTO) 57 % (42-75); PLATELET COUNT 349 10^3/uL (130-400)
[2021-11-08 09:14] LABS: POTASSIUM 3.6 MMOL/L (3.6-5.0)
[2021-11-08 09:15] LABS: CALCIUM 9.4 MG/DL (8.5-10.1)
[2021-11-08 09:19] LABS: CREATININE SERUM 0.75 MG/DL (0.60-1.30)
--- NOTE | 2021-11-08 10:03 | ED General ---
General Chief Complaint: Dizziness/Syncope Stated Complaint: DIZZINESS Nursing Triage Note: PT AMB TO RM 5. PT STATED THAT SHE FAINTED THIS MORNING. SHE THINKS HER HGB IS LOW. SHE STATED THAT SHE OFTEN GETS BLOOD TRANSFUSIONS AND THAT HER LAST ONE WAS APPROX 9 MONTHS AGO. SHE ALSO STATED THAT SHE IS CURRENTLY ON HER PERIOD AND THAT SHE LOSES A LOT OF BLOOD WHEN SHE IS MENASTRATING. Source of Information: Patient Exam Limitations: No Limitations History of Present Illness Date Seen by Provider: Nov 08, 2021 Time Seen by Provider: 09:29 Initial Comments This 36-year-old woman presents to the emergency room with complaints of lightheadedness, fatigue, and hot flashes. She has a long history of iron deficiency anemia requiring iron infusions and transfusion. She has history of collagenous colitis but reports no recent blood or melena in her stools. She is presently on her menstrual cycle. She reports hysterectomy has been considered but was delayed last winter due to work schedule. 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 This morning she was getting ready for work when symptoms worsened. She wonders if her anemia has worsened to the extent that she needs transfusion again. Allergies and Home Medications Allergies Coded Allergies: ciprofloxacin (Unverified Allergy, Mild, RASH, 08/02/19) Patient Home Medication List Home Medication List Reviewed: Yes Cephalexin (Cephalexin) 500 Mg Capsule, 500 MG PO QID Prescribed by: CATARINO ALCALA on 09/12/21 175 Sulfamethoxazole/Trimethoprim (Bactrim Ds Tablet) 1 Each Tablet, 1 EACH PO BID Prescribed by: REGGIE CAMPBELL on 10/23/210 Review of Systems Review of Systems Constitutional: see HPI EENTM: no symptoms reported Respiratory: no symptoms reported Cardiovascular: see HPI Gastrointestinal: see HPI Genitourinary: see HPI : No LMP: Nov 08, 2021 Musculoskeletal: no symptoms reported Skin: no symptoms reported Psychiatric/Neurological: No Symptoms Reported Hematologic/Lymphatic: No Symptoms Reported Immunological/Allergic: no symptoms reported Past Xakqahc-Ettgnc-Chfleu Hx Patient Social History Tobacco Use?: Yes Tobacco type used: Cigarettes Smoking Status: Current Everyday Smoker Substance use?: No Alcohol Use?: No Immunizations Up To Date Tetanus Booster (TDap): Unknown PED Vaccines UTD: Yes First/Initial COVID19 Vaccinat: denies Second COVID19 Vaccination Vineet: denies Third COVID19 Vaccination Date: denies Seasonal Allergies Seasonal Allergies: No Past Medical History Surgery/Hospitalization HX: X 2,TONSILLECTOMY, WISDOM TEETH, EGD/COLONOSCOPY > 10 YEARS AGO CHRONIC BLOOD LOSS, BLOOD TRANSFUSION, HX SUBSTANCE ABUSE Surgeries: Yes Abdominal (EGD and colonoscopy), Adenoidectomy, Breast, Section, Tonsillectomy Respiratory: No Currently Using CPAP: No Currently Using BIPAP: No Cardiac: No Neurological: No Last Menstrual Period: Nov 08, 2021 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: No 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 Sexually Transmitted Disease: No HIV/AIDS: No Genitourinary: Yes (HX UTI'S) Kidney Infection, UTI-Chronic Gastrointestinal: Yes Colitis (Collagenous colitis) Musculoskeletal: Yes Scoliosis, Chronic Back Pain Endocrine: No HEENT: Yes (GLASSES) Loss of Vision: Denies Hearing Impairment: Denies Cancer: No Psychosocial: No Integumentary: No Blood Disorders: Yes (ANEMIA) Adverse Reaction/Blood Tranf: No (HAS HAD BLOOD WITH NO REACTION) Family Medical History Diabetes mellitus maternal grandfather paternal grandfather Gastroenteritis 19 FATHER paternal grandmother ( from sepsis at age 85) maternal grandfather Hypertension 19 MOTHER maternal grandmother maternal grandfather Neoplasm maternal aunt (breast cancer) Cancer, Hypertension Physical Exam Vital Signs Vital Signs - First Documented 11/08/21 11/08/21 08:25 10:15 Temp 35.5 Pulse 82 Resp 16 B/P (MAP) 120/83 (95) Pulse Ox 100 O2 Delivery Room Air Capillary Refill : Height, Weight, BMI Height: 5'3.00" Weight: 120lbs. 3.0oz. [id number]; 22.00 BMI Method:Estimated General Appearance: No Apparent Distress, WD/WN, Thin HEENT: PERRL/EOMI, Normal ENT Inspection Neck: Normal Inspection Respiratory: Lungs Clear, Normal Breath Sounds, No Accessory Muscle Use Cardiovascular: Regular Rate, Rhythm, No Edema, No Murmur Gastrointestinal: Non Tender, Soft Extremity: Normal Inspection, No Pedal Edema Neurologic/Psychiatric: Alert, Oriented x3, No Motor/Sensory Deficits, Normal Mood/Affect Skin: Normal Color, Warm/Dry Progress/Results/Core Measures Suspected Sepsis SIRS Temperature: Pulse: 82 Respiratory Rate: 16 Laboratory Tests 11/08/21 08:40: White Blood Count 6.0 Blood Pressure 125 /83 Mean: 97 Laboratory Tests 11/08/21 08:40: Creatinine 0.75, Platelet Count 349 Results/Orders Lab Results Laboratory Tests Test 11/08/21 08:40 Range/Units White Blood Count 6.0 4.3-11.0 10^3/uL Red Blood Count 4.53 3.80-5.11 10^6/uL Hemoglobin 8.0 L 11.5-16.0 g/dL Hematocrit 30 L 35-52 % Mean Corpuscular Volume 66 L 80-99 fL Mean Corpuscular Hemoglobin 18 L 25-34 pg Mean Corpuscular Hemoglobin Concent 27 L 32-36 g/dL Red Cell Distribution Width 23.7 H 10.0-14.5 % Platelet Count 349 130-400 10^3/uL Mean Platelet Volume 9.0-12.2 fL Immature Granulocyte % (Auto) 0 % Neutrophils (%) (Auto) 57 42-75 % Lymphocytes (%) (Auto) 30 12-44 % Monocytes (%) (Auto) 7 0-12 % Eosinophils (%) (Auto) 4 0-10 % Basophils (%) (Auto) 2 0-10 % Neutrophils # (Auto) 3.4 1.8-7.8 10^3/uL Lymphocytes # (Auto) 1.8 1.0-4.0 10^3/uL Monocytes # (Auto) 0.4 0.0-1.0 10^3/uL Eosinophils # (Auto) 0.2 0.0-0.3 10^3/uL Basophils # (Auto) 0.1 0.0-0.1 10^3/uL Immature Granulocyte # (Auto) 0.0 0.0-0.1 10^3/uL Percent Immature Platelet Fraction 10.5 H 0.0-7.6 % Sodium Level 141 135-145 MMOL/L Potassium Level 3.6 3.6-5.0 MMOL/L Chloride Level 106 98-107 MMOL/L Carbon Dioxide Level 23 21-32 MMOL/L Anion Gap 12 5-14 MMOL/L Blood Urea Nitrogen 15 7-18 MG/DL Creatinine 0.75 0.60-1.30 MG/DL Estimat Glomerular Filtration Rate 104 BUN/Creatinine Ratio 20 Glucose Level 91 70-105 MG/DL Calcium Level 9.4 8.5-10.1 MG/DL Iron Level 14 L 33-167 ug/dL Total Iron Binding Capacity 468 H 237-330 ug/dL Unsaturated Iron Binding Capacity 454 25-500 ug/dL Transferrin % Saturation 3 L 17-57 % Ferritin 4.4 L 20.0-177.0 ng/mL My Orders Orders - SHIRLENE GARDNER MD Basic Metabolic Panel (11/08/21 08:36) Cbc With Automated Diff (11/08/21 08:36) Ed Iv/Invasive Line Start (11/08/21 08:36) Orthostatic Vital Signs (Adult (11/08/21 08:36) Iron Tibc %Sat & Ferritin (11/08/21 09:56) Vital Signs/I&O 11/08/21 11/08/21 11/08/21 08:25 08:44 10:15 Temp 35.5 35.5 Pulse 82 82 76 85 87 Resp 16 18 B/P (MAP) 120/83 (95) 125/83 (97) 119/86 130/90 (103) 122/86 (98) Pulse Ox 100 100 O2 Delivery Room Air Capillary Refill : Blood Pressure Mean: 97 Progress Note : Progress Note Patient was found to have microcytic anemia with a hemoglobin of 8.0. Orthostatic blood pressures were unremarkable. She did not meet criteria for transfusion at this time. We talked about iron replacement and potential need for iron transfusions again. Iron studies were ordered which she is to follow- up on with her primary care provider. I also advised her to pursue discussion with gynecology regarding ways to eliminate menstrual bleeding. See discharge instructions for further discussion. Departure Impression Primary Impression: Iron deficiency anemia Qualified Codes: D50.9 - Iron deficiency anemia, unspecified Additional Impression: Lightheaded Disposition: 01 HOME, SELF-CARE Condition: Stable Departure-Patient Inst. Decision time for Depature: 09:59 Referrals: RAYMON SHER MD (PCP/Family) Primary Care Physician Patient Instructions: Anemia Caused by Low Iron Add. Discharge Instructions: Take a children's vitamin that contains iron. Eat a diet high in red meats and leafy green vegetables to improve your iron intake. Some breads and cereals are also highly fortified in iron and may be beneficial. Seek referral to a junior account manager to discuss methods to stop menstrual bleeding. Follow-up with your primary care provider as soon as possible. Discuss means of iron replacement. Iron studies were added to the blood work from your ER visit. Please review these with your doctor. Iron infusions may be possible after review of those labs. During your follow-up appointment you may also have your hemoglobin checked again and discuss other possible contributing factors to your fatigue which might include vitamin D deficiency, thyroid problems, etc. Drink plenty of clear liquids to stay well-hydrated. Return to the ER if you have worsening symptoms despite following these instructions. All discharge instructions reviewed with patient and/or family. Voiced understanding. Work/School Note: Work Release Form Date Seen in the Emergency Department: Nov 08, 2021 Return to Work: Nov 09, 2021 Restrictions: No Restrictions Copy Copies To 1: RAYMON SHER MD, JOSHUA T MD Nov 08, 2021 10:03
[2021-11-08 10:15] VITALS: BP 119/86
== END 2021-11-08 10:15 | disposition home or self-care (01) ==
LOC: EDUNIT# 08:11 → ER 08:13
DX: D50.9 Iron deficiency anemia, unspecified (principal); F17.210 Nicotine dependence, cigarettes, uncomplicated; Z28.310 Unvaccinated for COVID-19
CPT/HCPCS: 36415; 80048; 82728; 83540; 83550; 85025

== ENCOUNTER 2022-01-01 21:03 | Emergency (ER) | payer MEDICAID ==
[~2022-01-01] VITALS: Ht 157.4 cm; Wt 55.0 kg
[2022-01-01 22:23] LABS: BILIRUBIN,URINE NEGATIVE (NEGATIVE); CLARITY,URINE SL CLOUDY; COLOR,URINE YELLOW; GLUCOSE, URINE (UA) NEGATIVE (NEGATIVE); KETONES,URINE NEGATIVE (NEGATIVE); LEUKOCYTE ESTERASE ,URINE 2+ (NEGATIVE); NITRITE,URINE POSITIVE (NEGATIVE); PROTEIN,URINE NEGATIVE (NEGATIVE)
[2022-01-01 22:30] LABS: BACTERIA,URINE LARGE /HPF; WBC,URINE 25-50 /HPF
[2022-01-01] MEDS ORDERED: ONDANSETRON 4 MG/2 ML (SDV) Z0FRAN IVP ONE (22:30)
[2022-01-01] MEDS ORDERED: LACTATED RINGERS 1,000 ML IV ONE (22:30)
[2022-01-01 22:53] LABS: EOSINOPHILS # (AUTO) 0.3 10^3/uL (0.0-0.3); EOSINOPHILS % (AUTO) 3 % (0-10); LYMPHOCYTES # (AUTO) 1.6 10^3/uL (1.0-4.0); MEAN CORPUSCULAR VOLUME 64 fL (80-99); MONOCYTES # (AUTO) 0.6 10^3/uL (0.0-1.0)
[2022-01-01 22:55] LABS: BASOPHILS % (AUTO) 0 % (0-10); HEMATOCRIT 25 % (35-52); HEMOGLOBIN 6.8 g/dL (11.5-16.0); LYMPHOCYTES % (AUTO) 17 % (12-44); MEAN CORPUSCULAR HEMOGLOBIN 18 pg (25-34); MEAN CORPUSCULAR HGB CONC 27 g/dL (32-36); MONOCYTES % (AUTO) 7 % (0-12); NEUTROPHILS # (AUTO) 6.9 10^3/uL (1.8-7.8); NEUTROPHILS % (AUTO) 73 % (42-75); PLATELET COUNT 307 10^3/uL (130-400); WHITE BLOOD COUNT 9.5 10^3/uL (4.3-11.0)
[2022-01-01 23:13] LABS: ALBUMIN 3.8 GM/DL (3.2-4.5); POTASSIUM 3.6 MMOL/L (3.6-5.0)
[2022-01-01 23:14] LABS: CALCIUM 8.6 MG/DL (8.5-10.1)
[2022-01-01 23:16] LABS: TOTAL PROTEIN 6.7 GM/DL (6.4-8.2)
[2022-01-01] MEDS ORDERED: cefTRIAXone 1 GM PRE-MIX 50 ML IV STA (23:16)
[2022-01-01 23:17] LABS: BILIRUBIN,TOTAL 0.2 MG/DL (0.1-1.0)
[2022-01-01 23:19] LABS: CREATININE SERUM 0.69 MG/DL (0.60-1.30)
[2022-01-02] MEDS ORDERED: NS (IVPB) 250 ML IV ONE (02:45)
[2022-01-02 02:50] VITALS: BP 119/83
[2022-01-02 03:05] VITALS: BP 102/74
[2022-01-02 03:08] VITALS: BP 102/74
--- NOTE | 2022-01-02 03:45 | ED General ---
General Chief Complaint: Abdominal/GI Problems Stated Complaint: STOMACH PAIN Nursing Triage Note: PT ARRIVAL TO ER WITH COMPLAINT OF ABDOMINAL PAIN SINCE LATE LAST NIGHT. PT STATES THAT SHE HAS HX OF COLLITIS. Source of Information: Patient Exam Limitations: No Limitations History of Present Illness Date Seen by Provider: Jan 02, 2022 Time Seen by Provider: 21:08 Initial Comments This 36-year-old woman with collagenous colitis presents to the emergency room with complaints of upper abdominal discomfort and "burping sulfur". She also feels extremely fatigued. She has chronic anemia related to chronic disease and has required transfusions in the past. She is afebrile. She feels constipated and has not had a bowel movement in a few days. She has not been passing flatus today. She is nauseated without vomiting. Allergies and Home Medications Allergies Coded Allergies: ciprofloxacin (Unverified Allergy, Mild, RASH, 08/02/19) Patient Home Medication List Home Medication List Reviewed: Yes Cefdinir (Cefdinir) 300 Mg Capsule, 300 MG PO BID Prescribed by: SHIRLENE JUAN on 01/02/22 0348 Cephalexin (Cephalexin) 500 Mg Capsule, 500 MG PO QID Prescribed by: CATARINO ALCALA on 09/12/21 1756 Ondansetron (Ondansetron Odt) 4 Mg Tab.rapdis, 4 MG SL Q4H PRN for NAUSEA/VOMITING Prescribed by: SHIRLENE JUAN on 01/02/22 0348 Sulfamethoxazole/Trimethoprim (Bactrim Ds Tablet) 1 Each Tablet, 1 EACH PO BID Prescribed by: REGGIE CAMPBELL on 10/23/212229 Review of Systems Review of Systems Constitutional: no symptoms reported EENTM: no symptoms reported Respiratory: no symptoms reported Cardiovascular: no symptoms reported Gastrointestinal: see HPI Genitourinary: no symptoms reported Musculoskeletal: no symptoms reported Skin: no symptoms reported Psychiatric/Neurological: No Symptoms Reported Hematologic/Lymphatic: No Symptoms Reported Past Pefgxtg-Jlzmjl-Bhiknx Hx Patient Social History Smoking Status: Former Smoker Use of E-Cig and/or Vaping dev: Yes E-Cig or Vaping type used: Nicotine Use of E-Cig and/or Vaping Ez: Current Everyday User Substance use?: No Alcohol Use?: No Pt feels they are or have been: No Immunizations Up To Date Tetanus Booster (TDap): Unknown PED Vaccines UTD: Yes Influenza Vaccine Up-to-Date: No; Not Current First/Initial COVID19 Vaccinat: denies Second COVID19 Vaccination Vineet: denies Third COVID19 Vaccination Date: denies Seasonal Allergies Seasonal Allergies: No Past Medical History Surgery/Hospitalization HX: X 2,TONSILLECTOMY, WISDOM TEETH, EGD/COLONOSCOPY > 10 YEARS AGO CHRONIC BLOOD LOSS, BLOOD TRANSFUSION, HX SUBSTANCE ABUSE Surgeries: Yes Abdominal, Adenoidectomy, Breast, Section, Tonsillectomy Respiratory: No Currently Using CPAP: No Currently Using BIPAP: No Cardiac: No Neurological: No : No 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 Sexually Transmitted Disease: No HIV/AIDS: No Genitourinary: Yes (HX UTI'S) Kidney Infection, UTI-Chronic Gastrointestinal: Yes Colitis (Collagenous) Musculoskeletal: Yes Scoliosis, Chronic Back Pain Endocrine: No HEENT: Yes (GLASSES) Loss of Vision: Denies Hearing Impairment: Denies Cancer: No Psychosocial: No Integumentary: No Blood Disorders: Yes (ANEMIA) Adverse Reaction/Blood Tranf: No (HAS HAD BLOOD WITH NO REACTION) Family Medical History Diabetes mellitus maternal grandfather paternal grandfather Gastroenteritis 19 FATHER paternal grandmother ( from sepsis at age 85) maternal grandfather Hypertension 19 MOTHER maternal grandmother maternal grandfather Neoplasm maternal aunt (breast cancer) Cancer, Hypertension Physical Exam Vital Signs Vital Signs - First Documented 01/01/22 22:10 Temp 36.6 Pulse 87 Resp 14 B/P (MAP) 102/76 (85) Pulse Ox 97 O2 Delivery Room Air Capillary Refill : Less Than 3 Seconds Height, Weight, BMI Height: 5'3.00" Weight: 120lbs. 3.0oz. [id number]; 22.00 BMI Method:Estimated General Appearance: No Apparent Distress, WD/WN HEENT: PERRL/EOMI, Normal ENT Inspection Neck: Normal Inspection Respiratory: Lungs Clear, Normal Breath Sounds, No Accessory Muscle Use Cardiovascular: Regular Rate, Rhythm, No Edema, No Murmur Gastrointestinal: Normal Bowel Sounds, Soft, Tenderness (Mild in the upper abdomen) Extremity: Normal Inspection, No Pedal Edema Neurologic/Psychiatric: Alert, Oriented x3, No Motor/Sensory Deficits, Normal Mood/Affect Skin: Warm/Dry, Pallor Progress/Results/Core Measures Suspected Sepsis SIRS Temperature: Pulse: 73 Respiratory Rate: 16 Laboratory Tests 01/01/22 22:45: White Blood Count 9.5 Blood Pressure 102 /74 Mean: 83 Laboratory Tests 01/01/22 22:45: Creatinine 0.69, Platelet Count 307, Total Bilirubin 0.2 Results/Orders Lab Results Laboratory Tests Test 01/01/22 22:15 01/01/22 22:45 Range/Units Urine Color YELLOW Urine Clarity SL CLOUDY Urine pH 6.0 5-9 Urine Specific [place] 1.025 H 1.016-1.022 Urine Protein NEGATIVE NEGATIVE Urine Glucose (UA) NEGATIVE NEGATIVE Urine Ketones NEGATIVE NEGATIVE Urine Nitrite POSITIVE H NEGATIVE Urine Bilirubin NEGATIVE NEGATIVE Urine Urobilinogen 0.2 < = 1.0 MG/DL Urine Leukocyte Esterase 2+ H NEGATIVE Urine RBC (Auto) 3+ H NEGATIVE Urine RBC 5-10 H /HPF Urine WBC 25-50 H /HPF Urine Squamous Epithelial Cells 2-5 /HPF Urine Renal Epithelial Cells NONE /HPF Urine Crystals NONE /LPF Urine Bacteria LARGE H /HPF Urine Casts NONE /LPF Urine Mucus SMALL H /LPF Urine Culture Indicated YES White Blood Count 9.5 4.3-11.0 10^3/uL Red Blood Count 3.88 3.80-5.11 10^6/uL Hemoglobin 6.8 *L 11.5-16.0 g/dL Hematocrit 25 L 35-52 % Mean Corpuscular Volume 64 L 80-99 fL Mean Corpuscular Hemoglobin 18 L 25-34 pg Mean Corpuscular Hemoglobin Concent 27 L 32-36 g/dL Red Cell Distribution Width 20.6 H 10.0-14.5 % Platelet Count 307 130-400 10^3/uL Mean Platelet Volume 9.0-12.2 fL Immature Granulocyte % (Auto) 0 % Neutrophils (%) (Auto) 73 42-75 % Lymphocytes (%) (Auto) 17 12-44 % Monocytes (%) (Auto) 7 0-12 % Eosinophils (%) (Auto) 3 0-10 % Basophils (%) (Auto) 0 0-10 % Neutrophils # (Auto) 6.9 1.8-7.8 10^3/uL Lymphocytes # (Auto) 1.6 1.0-4.0 10^3/uL Monocytes # (Auto) 0.6 0.0-1.0 10^3/uL Eosinophils # (Auto) 0.3 0.0-0.3 10^3/uL Basophils # (Auto) 0.0 0.0-0.1 10^3/uL Immature Granulocyte # (Auto) 0.0 0.0-0.1 10^3/uL Percent Immature Platelet Fraction 8.6 H 0.0-7.6 % Sodium Level 140 135-145 MMOL/L Potassium Level 3.6 3.6-5.0 MMOL/L Chloride Level 107 98-107 MMOL/L Carbon Dioxide Level 21 21-32 MMOL/L Anion Gap 12 5-14 MMOL/L Blood Urea Nitrogen 19 H 7-18 MG/DL Creatinine 0.69 0.60-1.30 MG/DL Estimat Glomerular Filtration Rate 114 BUN/Creatinine Ratio 28 Glucose Level 100 70-105 MG/DL Calcium Level 8.6 8.5-10.1 MG/DL Corrected Calcium 8.8 8.5-10.1 MG/DL Total Bilirubin 0.2 0.1-1.0 MG/DL Aspartate Amino Transf (AST/SGOT) 14 5-34 U/L Alanine Aminotransferase (ALT/SGPT) 12 0-55 U/L Alkaline Phosphatase 69 40-136 U/L Total Protein 6.7 6.4-8.2 GM/DL Albumin 3.8 3.2-4.5 GM/DL Lipase 44 8-78 U/L My Orders Orders - SHIRLENE GARDNER MD Ua Culture If Indicated (01/01/22 21:08) Cbc With Automated Diff (01/01/22 22:25) Comprehensive Metabolic Panel (01/01/22 22:25) Lipase (01/01/22 22:25) Ed Iv/Invasive Line Start (01/01/22 22:25) Lactated Ringers (Lr 1000 Ml Iv Solution (01/01/22 22:30) Abdomen, Flat & Upright/Decub (01/01/22 22:25) Ondansetron Injection (Zofran Injectio (01/01/22 22:30) Urine Culture (01/01/22 22:15) Red Cells Leukocytes Reduced (01/01/22 23:16) Ceftriaxone 1 Gm Pre-Mix (Rocephin 1 Gm (01/01/22 23:16) Type And Screen (01/01/22 23:16) Ns (Ivpb) (Sodium Chloride 0.9%) (01/02/22 02:45) Medications Given in ED Current Medications Medications Dose Ordered Sig/Nicole Route Start Time Stop Time Status Last Admin Dose Admin Lactated Ringer's 1,000 ml @ 0 mls/hr Q0M ONCE IV 01/01/22 22:30 01/01/22 22:31 DC 01/01/22 22:47 999 MLS/HR Ondansetron HCl 8 mg ONCE ONCE IVP 01/01/22 22:30 01/01/22 22:31 DC 01/01/22 22:47 8 MG Sodium Chloride 250 ml @ 0 mls/hr Q0M ONCE IV 01/02/22 02:45 01/02/22 02:46 DC 01/02/22 02:49 250 MLS/HR Vital Signs/I&O 01/01/22 01/02/22 01/02/22 01/02/22 22:10 02:50 03:05 03:08 Temp 36.6 37.2 37.1 37.1 Pulse 87 68 65 73 Resp 14 16 16 16 B/P (MAP) 102/76 (85) 119/83 102/74 102/74 Pulse Ox 97 96 97 97 O2 Delivery Room Air Room Air 01/02/22 01/02/22 04:23 04:29 Temp 36.9 Pulse 76 74 Resp 16 16 B/P (MAP) 102/74 102/74 Pulse Ox 99 99 O2 Delivery Room Air Room Air 01/02/22 00:00 Intake Total 1000 ml Balance 1000 ml Capillary Refill : Less Than 3 Seconds Blood Pressure Mean: 83 Progress Note : Progress Note Patient was hydrated with IV fluids and Zofran was given for nausea. Urinary tract infection was found on work-up and was treated with Rocephin. Hemoglobin was 6.8 which qualified her for transfusion. 1 unit of packed red blood cells was administered. Diagnostic Imaging Diagonstic Imaging: Xray Plain Films/CT/US/NM/MRI: abdomen, pelvis Comments KUB and upright x-rays revealed gaseous distention of the large and small bowel without evidence of obstruction. Departure Impression Primary Impression: Iron deficiency anemia Qualified Codes: D50.9 - Iron deficiency anemia, unspecified Additional Impressions: Urinary tract infection Qualified Codes: N39.0 - Urinary tract infection, site not specified Collagenous colitis Disposition: 01 HOME, SELF-CARE Condition: Improved Departure-Patient Inst. Decision time for Depature: 23:16 Referrals: RAYMON SHER MD (PCP/Family) Primary Care Physician Patient Instructions: Blood Transfusion, Urinary Tract Infection, Adult ED Add. Discharge Instructions: Drink plenty of clear liquids to stay well-hydrated. Start with a clear liquid diet and gradually advance your diet with small quantities of bland food as tolerated. Use Zofran as prescribed for nausea and vomiting. Complete your antibiotics as prescribed. Please follow-up with your primary care provider within the next week. Review urine cultures at that time. Return to care if you have worsening symptoms despite following these instructions. All discharge instructions reviewed with patient and/or family. Voiced understanding. Scripts Cefdinir (Cefdinir) 300 Mg Capsule 300 MG PO BID, #14 CAP 0 Refills Prov: SHIRLENE GARDNER MD 01/02/22 Ondansetron (Ondansetron Odt) 4 Mg Tab.rapdis 4 MG SL Q4H PRN for NAUSEA/VOMITING, #10 TAB Prov: SHIRLENE GARDNER MD 01/02/22 Copy Copies To 1: RAYMON SHER MD, JOSHUA T MD Jan 02, 2022 03:45
[2022-01-02] MEDS ORDERED: CEFD300C3 PO (03:48)
[2022-01-02] MEDS ORDERED: ONDA4TAB11 SL (03:48)
[2022-01-02 04:23] VITALS: BP 102/74
[2022-01-02 04:29] VITALS: BP 102/74
--- NOTE | 2022-01-02 06:07 | Diagnostic Imaging Report ---
Clinical indication: Patient with abdominal pain. EXAM: X-ray of the abdomen with multiple supine and upright views. COMPARISON: X-ray of the abdomen dated 05/29/2017. CT scan of the abdomen and pelvis with contrast dated 10/07/2018. FINDINGS: There is a nonobstructed bowel gas pattern. There is no evidence of abdominal free air. Air fluid levels involving the right colon noted with stool. Right colon is now significantly dilated. There is a small to moderate amount of stool throughout the colon most in the right colon region. The amount of stool load has decreased compared to the prior CT scan. There are no focal calcifications overlying the expected regions/ pathways of both kidneys, ureters, and bladder regions. The visualized bones and extra abdominal soft tissues are unremarkable. IMPRESSION: 1: There is no radiographic evidence for acute abdominal/ pelvic process or urinary tract stones. 2: There is a small to moderate amount of stool throughout colon which has decreased in interim compared to the recent CT scan. Dictated by: Dictated on workstation # [id number]
== END 2022-01-02 05:12 | disposition home or self-care (01) ==
LOC: EDUNIT# 21:03 → ER 21:05
DX: K52.831 Collagenous colitis (principal); N39.0 Urinary tract infection, site not specified; D50.9 Iron deficiency anemia, unspecified; F17.290 Nicotine dependence, other tobacco product, uncomplicated; Z88.1 Allergy status to other antibiotic agents; Z28.310 Unvaccinated for COVID-19
CPT/HCPCS: 74019; 80053; 81000; 83690; 85025; 86850; 86870; 86900; 86901; 86922; 87088; 96365; 96375; 99284; P9016; 36415; 86920

== ENCOUNTER 2022-01-24 13:01 | Emergency (ER) | payer MEDICAID ==
[~2022-01-24] VITALS: Ht 157.5 cm; Wt 54.9 kg
[~2022-01-24 13:01] MED LIST changes: +ONDA4TAB11 SL
[2022-01-24 13:20] VITALS: BP 118/87
--- NOTE | 2022-01-24 13:23 | ED EENT ---
History of Present Illness General Stated Complaint: ABCESS TOOTH History of Present Illness Date Seen by Provider: Jan 24, 2022 Time Seen by Provider: 13:17 Initial Comments Patient reports that she has been seen by the dentist twice this week for dental infection. Initially she was on PCN every 4 hours. Today she went back to the dentist and they put her on Augmentin. Reports that she has been taking over the counter medications for pain with mild improvement. Requesting something for pain because the over the counter medications are not helping. Denies fever or drainage from the area. Has been having increasing swelling to left side of face in addition. Timing/Duration: gradual Location: mouth, facial, dental Prearrival Treatment: over the counter meds, prescription meds Modifying Factors: Improves With Antibiotics Associated Symptoms: No drooling; facial pain/swelling (left sided facial swelling); No fever; tooth pain Allergies and Home Medications Allergies Coded Allergies: ciprofloxacin (Unverified Allergy, Mild, RASH, 08/02/19) Patient Home Medication List Home Medication List Reviewed: Yes Cefdinir (Cefdinir) 300 Mg Capsule, 300 MG PO BID Prescribed by: SHIRLENE JUAN on 01/02/22 0348 Cephalexin (Cephalexin) 500 Mg Capsule, 500 MG PO QID Prescribed by: CATARINO ALCALA on 09/12/21 1756 Hydrocodone Bit/Acetaminophen (HYDROcodone/APAP 5 MG/325 MG TAB) 1 Tab Tab, 1 TAB PO Q6H Prescribed by: Daphney Downs on 01/24/22 1326 Ondansetron (Ondansetron Odt) 4 Mg Tab.rapdis, 4 MG SL Q4H PRN for NAUSEA/VOMITING Prescribed by: SHIRLENE JUAN on 01/02/22 0348 Sulfamethoxazole/Trimethoprim (Bactrim Ds Tablet) 1 Each Tablet, 1 EACH PO BID Prescribed by: REGGIE CAMPBELL on 10/23/21 2230 Review of Systems Review of Systems Constitutional: No chills, No dizziness, No fever Ears: Denies Dizziness, Denies Pain, Denies Tinnitus Nose: no symptoms reported Mouth: pain, swelling, other (left sided facial swelling) Throat: denies pain, denies swelling, denies discharge, denies hoarse, denies painful swallowing, denies difficulty with fluids Respiratory: No cough, No short of breath, No wheezing Cardiovascular: No chest pain, No palpitations Gastrointestinal: No abdominal pain, No nausea, No vomiting Musculoskeletal: no symptoms reported Skin: No pruritus, No rash Neurological: Denies Headache, Denies Numbness All Other Systems Reviewed Negative Unless Noted: Yes Past Igoznqr-Xfaulq-Dxcfcn Hx Immunizations Up To Date Tetanus Booster (TDap): Unknown PED Vaccines UTD: Yes First/Initial COVID19 Vaccinat: denies Second COVID19 Vaccination Vineet: denies Third COVID19 Vaccination Date: denies Seasonal Allergies Seasonal Allergies: No Past Medical History Surgery/Hospitalization HX: X 2,TONSILLECTOMY, WISDOM TEETH, EGD/COLONOSCOPY > 10 YEARS AGO CHRONIC BLOOD LOSS, BLOOD TRANSFUSION, HX SUBSTANCE ABUSE Surgeries: Yes Abdominal, Adenoidectomy, Breast, Section, Tonsillectomy Respiratory: No Currently Using CPAP: No Currently Using BIPAP: No Cardiac: No Neurological: No 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 Sexually Transmitted Disease: No HIV/AIDS: No Genitourinary: Yes (HX UTI'S) Kidney Infection, UTI-Chronic Gastrointestinal: Yes Colitis Musculoskeletal: Yes Scoliosis, Chronic Back Pain Endocrine: No HEENT: Yes (GLASSES) Loss of Vision: Denies Hearing Impairment: Denies Cancer: No Psychosocial: No Integumentary: No Blood Disorders: Yes (ANEMIA) Adverse Reaction/Blood Tranf: No (HAS HAD BLOOD WITH NO REACTION) Family Medical History Reviewed Nursing Family Hx Diabetes mellitus maternal grandfather paternal grandfather Gastroenteritis 19 FATHER paternal grandmother ( from sepsis at age 85) maternal grandfather Hypertension 19 MOTHER maternal grandmother maternal grandfather Neoplasm maternal aunt (breast cancer) Cancer, Hypertension Physical Exam Vital Signs Vital Signs - First Documented 01/24/22 13:20 Temp 36.8 Pulse 91 Resp 18 B/P (MAP) 118/87 (97) Pulse Ox 99 Height, Weight, BMI Height: 5'3.00" Weight: 120lbs. 3.0oz. 54.847204uy; 22.00 BMI Method:Estimated General Appearance: WD/WN, no apparent distress Mouth/Throat: pharynx normal, dental tenderness (several broken left upper molars, gum swelling and erythema, no definitive abscess appreciated); No excessive drooling, No mandibular swelling; maxillary swelling (left sided); No tongue swollen, No trismus, No uvula swelling, No voice changes Neck: non-tender, full range of motion, supple, normal inspection Cardiovascular: regular rate, rhythm, no edema Respiratory: chest non-tender, lungs clear, normal breath sounds, no resp iratory distress, no accessory muscle use Neurologic/Psychiatric: alert, normal mood/affect, oriented x 3 Skin: normal color, warm/dry Progress/Results/Core Measures Results/Orders My Orders Orders - DAPHNEY DOWNS APRN Hydrocodone/Apap 5/325 Tablet (Lortab 5 (01/24/22 13:30) Medications Given in ED Current Medications Medications Dose Ordered Sig/Nicole Route Start Time Stop Time Status Last Admin Dose Admin Acetaminophen/ Hydrocodone Bitart 1 ea ONCE ONCE PO 01/24/22 13:30 01/24/22 13:31 DC 01/24/22 13:32 1 EA Vital Signs/I&O 01/24/22 13:20 Temp 36.8 Pulse 91 Resp 18 B/P (MAP) 118/87 (97) Pulse Ox 99 Progress Progress Note : Progress Note Patient has known dental infection. Was switched from PCN to Augmentin today. Reports that she is unable to get the pain under control at home. Will give dose of Hydrocodone while she is here along with few at home. Instructed to keep appointments with dentist and follow up. Reasons to return to the ER were discussed with patient. Departure Impression Primary Impression: Dental caries Additional Impression: Dental abscess Disposition: 01 HOME, SELF-CARE Condition: Stable Departure-Patient Inst. Decision time for Depature: 13:24 Referrals: RAYMON SHER MD (PCP/Family) Primary Care Physician Patient Instructions: Dental Pain (DC), Tooth Abscess ED Add. Discharge Instructions: 1. Home and rest. 2. Push fluids. 3. Alternate Tylenol/Ibuprofen as needed for pain or fever. 4. Continue to follow up with dentist as scheduled. 5. Continue antibiotics as directed. 6. Hydrocodone as needed for severe pain. No driving while taking this medication. This medication can cause constipation so consider taking a stool softner while on this medication. 7. Return here if worse or concerns. Scripts Hydrocodone Bit/Acetaminophen (HYDROcodone/APAP 5 MG/325 MG TAB) 1 Tab Tab 1 TAB PO Q6H for Pain, #8 TAB 0 Refills Prov: DAPHNEY DOWNS APRN 01/24/22 DAPHNEY DOWNS APRN Jan 24, 2022 13:23
[2022-01-24] MEDS ORDERED: ACHD5005 PO (13:26)
[2022-01-24] MEDS ORDERED: HYDROcodone/APAP 5 MG/325 MG (LORTAB) TAB PO ONE (13:30)
== END 2022-01-24 13:34 | disposition home or self-care (01) ==
LOC: EDUNIT# 13:01 → ER 13:02
DX: K02.9 Dental caries, unspecified (principal); K04.7 Periapical abscess without sinus
CPT/HCPCS: 99283

== ENCOUNTER 2022-02-10 16:33 | Emergency (ER) | payer MEDICAID ==
[~2022-02-10] VITALS: Ht 157.4 cm; Wt 54.9 kg
--- NOTE | 2022-02-10 17:18 | ED Upper Extremity ---
General Chief Complaint: Upper Extremity Stated Complaint: LT WRIST PAIN Nursing Triage Note: Patient presents to the ED with c/o swelling in left wrist. Small area of swelling to dorsal side of wrist. Reports area appeard 3 weeks ago. States, "I woke up and had a bubble on top of my left wrist and hit hurts to rotate it." Denies any known injury. Source: patient Exam Limitations: no limitations History of Present Illness Date Seen by Provider: Feb 10, 2022 Time Seen by Provider: 16:50 Initial Comments Patient is a 36-year-old female presents with cyst to posterior left wrist. Patient reports repetitive hand use while at work. Patient is currently taking ibuprofen for treatment of dental pain. No other symptoms or complaints Onset: just prior to arrival Pain/Injury Location: left wrist Method of Injury: other Modifying Factors: Improves With Other Allergies and Home Medications Allergies Coded Allergies: ciprofloxacin (Unverified Allergy, Mild, RASH, 08/02/19) Patient Home Medication List Home Medication List Reviewed: Yes Cefdinir (Cefdinir) 300 Mg Capsule, 300 MG PO BID Prescribed by: SHIRLENE JUAN on 01/02/22 0348 Cephalexin (Cephalexin) 500 Mg Capsule, 500 MG PO QID Prescribed by: CATARINO ALCALA on 09/12/21 1756 Hydrocodone Bit/Acetaminophen (HYDROcodone/APAP 5 MG/325 MG TAB) 1 Tab Tab, 1 TAB PO Q6H Prescribed by: Daphney Dodge on 01/24/22 1326 Ondansetron (Ondansetron Odt) 4 Mg Tab.rapdis, 4 MG SL Q4H PRN for NAUSEA/VOMITING Prescribed by: SHIRLENE JUAN on 01/02/22 0348 Sulfamethoxazole/Trimethoprim (Bactrim Ds Tablet) 1 Each Tablet, 1 EACH PO BID Prescribed by: REGGIE CAMPBELL on 10/23/21 2230 Review of Systems Constitutional: see HPI Musculoskeletal: joint swelling (Left wrist cyst, compressible, no erythema or warmth) Past Wnclhpp-Pdnuzy-Symols Hx Patient Social History Tobacco Use?: No Use of E-Cig and/or Vaping dev: Yes E-Cig or Vaping type used: Nicotine Substance use?: No Alcohol Use?: No Pt feels they are or have been: No Immunizations Up To Date Tetanus Booster (TDap): Unknown PED Vaccines UTD: Yes First/Initial COVID19 Vaccinat: denies Second COVID19 Vaccination Vineet: denies Third COVID19 Vaccination Date: denies Seasonal Allergies Seasonal Allergies: No Past Medical History Surgery/Hospitalization HX: X 2,TONSILLECTOMY, WISDOM TEETH, EGD/COLONOSCOPY > 10 YEARS AGO CHRONIC BLOOD LOSS, BLOOD TRANSFUSION, HX SUBSTANCE ABUSE Surgeries: Yes Abdominal, Adenoidectomy, Breast, Section, Tonsillectomy Respiratory: No Currently Using CPAP: No Currently Using BIPAP: No Cardiac: No Neurological: No Last Menstrual Period: Jan 14, 2022 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 Sexually Transmitted Disease: No HIV/AIDS: No Genitourinary: Yes (HX UTI'S) Kidney Infection, UTI-Chronic Gastrointestinal: Yes Colitis Musculoskeletal: Yes Scoliosis, Chronic Back Pain Endocrine: No HEENT: Yes (GLASSES) Loss of Vision: Denies Hearing Impairment: Denies Cancer: No Psychosocial: No Integumentary: No Blood Disorders: Yes (ANEMIA) Adverse Reaction/Blood Tranf: No (HAS HAD BLOOD WITH NO REACTION) Family Medical History Diabetes mellitus maternal grandfather paternal grandfather Gastroenteritis 19 FATHER paternal grandmother ( from sepsis at age 85) maternal grandfather Hypertension 19 MOTHER maternal grandmother maternal grandfather Neoplasm maternal aunt (breast cancer) Cancer, Hypertension Physical Exam Vital Signs Vital Signs - First Documented 02/10/22 16:41 Temp 36.3 Pulse 70 Resp 14 B/P (MAP) 131/88 (102) Pulse Ox 99 O2 Delivery Room Air Capillary Refill : Less Than 3 Seconds Height, Weight, BMI Height: 5'3.00" Weight: 120lbs. 3.0oz. 54.072745nm; 22.00 BMI Method:Estimated General Appearance: WD/WN, no apparent distress Wrist: Yes pain (Synovial cyst, dorsum of left wrist, no erythema swelling) Neurologic/Psychiatric: alert Progress/Results/Core Measures Results/Orders Vital Signs/I&O 02/10/22 16:41 Temp 36.3 Pulse 70 Resp 14 B/P (MAP) 131/88 (102) Pulse Ox 99 O2 Delivery Room Air Blood Pressure Mean: 102 Departure Communication (Admissions) Patient with synovial cyst for left wrist. Recommendations are supportive care and PCP/orthopedic referral. Impression Primary Impression: Ganglion cyst of dorsum of left wrist Disposition: HOME, SELF-CARE Condition: Stable Departure-Patient Inst. Decision time for Depature: 17:23 Referrals: RAYMON SHER MD (PCP) Primary Care Physician CHRIS SHIELDS MD Patient Instructions: Ganglion Cyst (DC) Add. Discharge Instructions: Please take 600 mg of ibuprofen 3 times daily for pain and inflammation wear splint for support. Follow-up with local PCP and/or orthopedic physician. Return to the ED if new or worsening symptoms. All discharge instructions reviewed with patient and/or family. Voiced understanding. SUNG ZARATE DO Feb 10, 2022 17:18
[2022-02-10 17:27] VITALS: BP 131/88
== END 2022-02-10 17:27 | disposition home or self-care (01) ==
LOC: EDUNIT# 16:33 → ER FS 16:35
DX: M67.432 Ganglion, left wrist (principal); K08.89 Other specified disorders of teeth and supporting structures; F17.290 Nicotine dependence, other tobacco product, uncomplicated; Z28.310 Unvaccinated for COVID-19; Z79.1 Long term (current) use of non-steroidal anti-inflammatories (NSAID)
CPT/HCPCS: 99283

== ENCOUNTER 2022-02-20 17:28 | Emergency (ER) | payer MEDICAID ==
[~2022-02-20] VITALS: Ht 157.4 cm; Wt 52.5 kg
--- NOTE | 2022-02-20 17:37 | ED Cough/URI ---
General Chief Complaint: COVID19 Suspect/Confirmed Stated Complaint: BODY ACHES,CONGESTION,HEADACHE History of Present Illness Date Seen by Provider: Feb 20, 2022 Time Seen by Provider: 17:35 Initial Comments 36-year-old female is here with complaints of cough, congestion, body aches. Patient came to get COVID tested since her is COVID-positive. No other symptoms. Denies SOB or GI symptoms. Allergies and Home Medications Allergies Coded Allergies: ciprofloxacin (Unverified Allergy, Mild, RASH, 08/02/19) Patient Home Medication List Home Medication List Reviewed: Yes Cefdinir (Cefdinir) 300 Mg Capsule, 300 MG PO BID Prescribed by: SHIRLENE JUAN on 01/02/22 0348 Cephalexin (Cephalexin) 500 Mg Capsule, 500 MG PO QID Prescribed by: CATARINO ALCALA on 09/12/21 1756 Hydrocodone Bit/Acetaminophen (HYDROcodone/APAP 5 MG/325 MG TAB) 1 Tab Tab, 1 TAB PO Q6H Prescribed by: Daphney Dodge on 01/24/22 1326 Ondansetron (Ondansetron Odt) 4 Mg Tab.rapdis, 4 MG SL Q4H PRN for NAUSEA/VOMITING Prescribed by: SHIRLENE JUAN on 01/02/22 0348 Sulfamethoxazole/Trimethoprim (Bactrim Ds Tablet) 1 Each Tablet, 1 EACH PO BID Prescribed by: REGGIE CAMPBELL on 10/23/212229 Review of Systems Review of Systems Constitutional: chills, fever, malaise EENTM: nose congestion Respiratory: cough Cardiovascular: no symptoms reported Gastrointestinal: no symptoms reported Genitourinary: no symptoms reported Musculoskeletal: no symptoms reported Skin: no symptoms reported Psychiatric/Neurological: No Symptoms Reported Hematologic/Lymphatic: No Symptoms Reported Immunological/Allergic: no symptoms reported Past Flvoflq-Bxbxmj-Eeqzbs Hx Immunizations Up To Date Tetanus Booster (TDap): Unknown PED Vaccines UTD: Yes First/Initial COVID19 Vaccinat: denies Second COVID19 Vaccination Vineet: denies Third COVID19 Vaccination Date: denies Seasonal Allergies Seasonal Allergies: No Past Medical History Surgery/Hospitalization HX: X 2,TONSILLECTOMY, WISDOM TEETH, EGD/COLONOSCOPY > 10 YEARS AGO CHRONIC BLOOD LOSS, BLOOD TRANSFUSION, HX SUBSTANCE ABUSE Surgeries: Yes Abdominal, Adenoidectomy, Breast, Section, Tonsillectomy Respiratory: No Currently Using CPAP: No Currently Using BIPAP: No Cardiac: No Neurological: No 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 Sexually Transmitted Disease: No HIV/AIDS: No Genitourinary: Yes (HX UTI'S) Kidney Infection, UTI-Chronic Gastrointestinal: Yes Colitis Musculoskeletal: Yes Scoliosis, Chronic Back Pain Endocrine: No HEENT: Yes (GLASSES) Loss of Vision: Denies Hearing Impairment: Denies Cancer: No Psychosocial: No Integumentary: No Blood Disorders: Yes (ANEMIA) Adverse Reaction/Blood Tranf: No (HAS HAD BLOOD WITH NO REACTION) Family Medical History Diabetes mellitus maternal grandfather paternal grandfather Gastroenteritis 19 FATHER paternal grandmother ( from sepsis at age 85) maternal grandfather Hypertension 19 MOTHER maternal grandmother maternal grandfather Neoplasm maternal aunt (breast cancer) Cancer, Hypertension Physical Exam Vital Signs - First Documented 02/20/22 17:40 Temp 37.1 Pulse 128 Resp 16 B/P (MAP) 106/72 (83) Pulse Ox 100 O2 Delivery Room Air Capillary Refill : Height: 5'3.00" Weight: 120lbs. 3.0oz. 54.432472go; 22.00 BMI Method:Estimated General Appearance: WD/WN, no apparent distress HEENT: PERRL/EOMI, normal ENT inspection Neck: non-tender, full range of motion, supple, normal inspection Respiratory: chest non-tender, lungs clear, normal breath sounds, no respiratory distress Cardiovascular: regular rate, rhythm Gastrointestinal: non tender, soft Extremities: normal range of motion Neurologic/Psychiatric: alert, oriented x 3 Skin: normal color, warm/dry Lymphatic: no adenopathy Progress/Results/Core Measures Suspected Sepsis SIRS Temperature: Pulse: Respiratory Rate: Blood Pressure / Mean: Results/Orders Lab Results Laboratory Tests Test 02/20/22 17:40 02/20/22 17:51 Range/Units Influenza Type A (RT-PCR) Not Detected Not Detecte Influenza Type B (RT-PCR) Not Detected Not Detecte SARS-CoV-2 RNA (RT-PCR) Detected H Not Detecte Group A Streptococcus Screen NEGATIVE NEGATIVE My Orders Orders - MARILU MABRY MD Covid 19 Inhouse Test (02/20/22 17:35) Influenza A And B By Pcr (02/20/22 17:35) Rapid Strep A Screen (02/20/22 17:35) Vital Signs/I&O 02/20/22 17:40 Temp 37.1 Pulse 128 Resp 16 B/P (MAP) 106/72 (83) Pulse Ox 100 O2 Delivery Room Air Capillary Refill : Progress Note : Progress Note 1. COVID POSITIVE: - COVID test positive - Rapid strep/ Rapid flu test: negative - Reassurance: Tylenol, Vit C and ZInc - Quarantine measures - Adequate hydration advised - FOllow up with PCP in 7 days as needed -The patient was seen in the ED, and treated appropriately to presentation at a specific point in time. Patient is informed that there is a possibility that disease and illness can evolve and change in acuity rapidly or slowly after patient is discharged from the ER. Precautionary advice given to the patient for immediate return to ER if symptoms worsen or do not resolve, and to seek emergency care sooner rather than later. Pt also advised on the importance of PCP follow up and compliance with management and follow up plan with PCP and/or specialist, as this is part of the management plan. Pt verbally expressed understanding. Departure Impression Primary Impression: COVID-19 Disposition: 01 HOME, SELF-CARE Condition: Stable Departure-Patient Inst. Referrals: RAYMON SHER MD (PCP/Family) Primary Care Physician Patient Instructions: COVID-19 Home Care/Discharge, Recovery After COVID-19, Prone Position Add. Discharge Instructions: - Reassurance: Tylenol, Vit C and ZInc - Quarantine measures - Adequate hydration advised - FOllow up with PCP in 7 days as needed All discharge instructions reviewed with patient and/or family. Voiced understanding. Work/School Note: Work Release Form Date Seen in the Emergency Department: Feb 20, 2022 Return to Work: Feb 25, 2022 Restrictions: Return-No Fever (24hrs) Other Restrictions Listed Below: Quarantine 5 days & on 6th day, return to work ONLY if fever free for 24 hr MARILU MABRY MD Feb 20, 2022 17:37
[2022-02-20 18:59] VITALS: BP 106/72
== END 2022-02-20 18:59 | disposition home or self-care (01) ==
LOC: EDUNIT# 17:28 → ER FS 17:30
DX: U07.1 COVID-19 (principal); R05.9 Cough, unspecified; R52 Pain, unspecified; Z28.310 Unvaccinated for COVID-19
CPT/HCPCS: 87430; 87636

== ENCOUNTER 2022-03-02 00:20 | Emergency (ER) | payer MEDICAID ==
[2022-03-02 00:40] VITALS: BP 166/115
--- NOTE | 2022-03-02 00:41 | ED Lower Extremity ---
General Chief Complaint: Lower Extremity Stated Complaint: BILAT KNEE PAIN Source: patient Exam Limitations: no limitations History of Present Illness Date Seen by Provider: Mar 02, 2022 Time Seen by Provider: 00:30 Initial Comments 36-year-old female presents emergency department for sudden onset of bilateral knee pain. Symptoms started evening and have been persistent. Its dull throbbing bilateral anterior knees without radiation. 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 She has not tried anything for her symptoms yet. No redness fevers or chills. Allergies and Home Medications Allergies Coded Allergies: ciprofloxacin (Unverified Allergy, Mild, RASH, 08/02/19) Patient Home Medication List Home Medication List Reviewed: Yes Cefdinir (Cefdinir) 300 Mg Capsule, 300 MG PO BID Prescribed by: SHIRLENE JUAN on 01/02/22 0348 Cephalexin (Cephalexin) 500 Mg Capsule, 500 MG PO QID Prescribed by: CATARINO ALCALA on 09/12/21 1756 Hydrocodone Bit/Acetaminophen (HYDROcodone/APAP 5 MG/325 MG TAB) 1 Tab Tab, 1 TAB PO Q6H Prescribed by: Daphney Dodge on 01/24/22 1326 Ondansetron (Ondansetron Odt) 4 Mg Tab.rapdis, 4 MG SL Q4H PRN for NAUSEA/VOM ITING Prescribed by: SHIRLENE JUAN on 01/02/22 0348 Sulfamethoxazole/Trimethoprim (Bactrim Ds Tablet) 1 Each Tablet, 1 EACH PO BID Prescribed by: REGGIE CAMPBELL on 10/23/21 2230 Review of Systems Constitutional: no symptoms reported EENTM: no symptoms reported Respiratory: no symptoms reported Cardiovascular: no symptoms reported Gastrointestinal: no symptoms reported Genitourinary: no symptoms reported Musculoskeletal: joint pain Skin: no symptoms reported Psychiatric/Neurological: No Symptoms Reported Past Efqnbls-Giflrb-Utbxqk Hx Patient Social History Tobacco Use?: Yes Tobacco type used: Cigarettes Smoking Status: Former Smoker Use of E-Cig and/or Vaping dev: Yes E-Cig or Vaping type used: Nicotine Use of E-Cig and/or Vaping Ez: Current Everyday User Substance use?: No Alcohol Use?: No Pt feels they are or have been: No Immunizations Up To Date Tetanus Booster (TDap): Unknown PED Vaccines UTD: Yes Influenza Vaccine Up-to-Date: No; Not Current First/Initial COVID19 Vaccinat: denies Second COVID19 Vaccination Vineet: denies Third COVID19 Vaccination Date: denies Seasonal Allergies Seasonal Allergies: No Past Medical History Surgery/Hospitalization HX: X 2,TONSILLECTOMY, WISDOM TEETH, EGD/COLONOSCOPY > 10 YEARS AGO CHRONIC BLOOD LOSS, BLOOD TRANSFUSION, HX SUBSTANCE ABUSE Surgeries: Yes Abdominal, Adenoidectomy, Breast, Section, Tonsillectomy Respiratory: No Currently Using CPAP: No Currently Using BIPAP: No Cardiac: No Neurological: No 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: No 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 Sexually Transmitted Disease: No HIV/AIDS: No Genitourinary: Yes (HX UTI'S) Kidney Infection, UTI-Chronic Gastrointestinal: Yes Colitis Musculoskeletal: Yes Scoliosis, Chronic Back Pain Endocrine: No HEENT: Yes (GLASSES) Loss of Vision: Denies Hearing Impairment: Denies Cancer: No Psychosocial: No Integumentary: No Blood Disorders: Yes (ANEMIA) Adverse Reaction/Blood Tranf: No (HAS HAD BLOOD WITH NO REACTION) Family Medical History Reviewed Nursing Family Hx Diabetes mellitus maternal grandfather paternal grandfather Gastroenteritis 19 FATHER paternal grandmother ( from sepsis at age 85) maternal grandfather Hypertension 19 MOTHER maternal grandmother maternal grandfather Neoplasm maternal aunt (breast cancer) Cancer, Hypertension Physical Exam Vital Signs Vital Signs - First Documented 03/02/22 00:34 Temp 36.8 Pulse 115 Resp 24 B/P (MAP) 166/115 (132) Pulse Ox 98 O2 Delivery Room Air Capillary Refill : Height, Weight, BMI Height: 5'3.00" Weight: 120lbs. 3.0oz. 54.082266op; 21.00 BMI Method:Estimated General Appearance: WD/WN, no apparent distress HEENT: PERRL/EOMI, normal ENT inspection, pharynx normal Neck: non-tender, full range of motion, supple, normal inspection Cardiovascular: regular rate, rhythm, no edema, no gallop, no JVD, no murmur Respiratory: chest non-tender, lungs clear, normal breath sounds, no respiratory distress, no accessory muscle use Gastrointestinal: normal bowel sounds, non tender, soft, no organomegaly, no pulsatile mass Back: normal inspection, no CVA tenderness, no vertebral tenderness Hips: bilateral hip non-tender, bilateral hip normal inspection, bilateral hip normal range of motion Legs: bilateral leg non-tender, bilateral leg normal inspection, bilateral leg normal range of motion Knees: bilateral knee normal inspection, bilateral knee normal range of motion, bilateral knee no evidence of injury, bilateral knee bone tenderness (Tenderness palpation bilateral anterior knees. Knees are normal inspection. Negative anterior posterior drawer varus valgus stress testing Roberth Dar testing. No swelling or redness.) Ankles: bilateral ankle non-tender, bilateral ankle normal inspection, bilateral ankle normal range of motion Feet: bilateral foot non-tender, bilateral foot normal inspection, bilateral fo ot normal range of motion Neurologic/Tendon: normal sensation, normal motor functions, normal tendon functions Skin: normal color, warm/dry Progress/Results/Core Measures Results/Orders My Orders Orders - MOMO SAMUEL DO Ketorolac Injection (Toradol Injection) (03/02/22 00:45) Vital Signs/I&O 03/02/22 03/02/22 00:34 00:40 Temp 36.8 36.8 Pulse 115 115 Resp 24 24 B/P (MAP) 166/115 (132) 166/115 Pulse Ox 98 98 O2 Delivery Room Air Room Air Departure Communication (Admissions) No evidence for infection, rheumatologic type disease. No injury. Treated conservatively with Toradol and discharged in stable condition with supportive care. Impression Primary Impression: Bilateral knee pain Qualified Codes: M25.561 - Pain in right knee; M25.562 - Pain in left knee Disposition: 01 HOME, SELF-CARE Condition: Stable Departure-Patient Inst. Referrals: RAYMON SHER MD (PCP/Family) Primary Care Physician Patient Instructions: Knee Pain Add. Discharge Instructions: Use ibuprofen and Tylenol. Ice as needed. Return to the emergency department for any severe concerns. Follow-up with your primary doctor in the next 48 hours should your symptoms persist. All discharge instructions reviewed with patient and/or family. Voiced understanding. MOMO SAMUEL DO Mar 02, 2022 00:41
[2022-03-02] MEDS ORDERED: KETOROLAC 60 MG/2 ML VIAL IM ONE (00:45)
== END 2022-03-02 00:52 | disposition home or self-care (01) ==
LOC: EDUNIT# 00:20 → ER 00:21
DX: M25.562 Pain in left knee (principal); M25.561 Pain in right knee; F17.210 Nicotine dependence, cigarettes, uncomplicated; Z28.310 Unvaccinated for COVID-19
CPT/HCPCS: 99284

== ENCOUNTER 2022-03-15 16:51 | Emergency (ER) | payer MEDICAID ==
[~2022-03-15] VITALS: Ht 157 cm; Wt 58.0 kg
[2022-03-15 18:19] LABS: BASOPHILS # (AUTO) 0.1 10^3/uL (0.0-0.1); BASOPHILS % (AUTO) 1 % (0-10); EOSINOPHILS # (AUTO) 0.3 10^3/uL (0.0-0.3); EOSINOPHILS % (AUTO) 3 % (0-10); HEMATOCRIT 24 % (35-52); LYMPHOCYTES % (AUTO) 20 % (12-44); MEAN CORPUSCULAR HEMOGLOBIN 20 pg (25-34); MEAN CORPUSCULAR HGB CONC 29 g/dL (32-36); MEAN CORPUSCULAR VOLUME 68 fL (80-99); MONOCYTES # (AUTO) 0.6 10^3/uL (0.0-1.0); MONOCYTES % (AUTO) 6 % (0-12); NEUTROPHILS # (AUTO) 7.1 10^3/uL (1.8-7.8); NEUTROPHILS % (AUTO) 70 % (42-75); PLATELET COUNT 263 10^3/uL (130-400); WHITE BLOOD COUNT 10.1 10^3/uL (4.3-11.0)
[2022-03-15 18:22] LABS: HEMOGLOBIN 6.9 g/dL (11.5-16.0); POTASSIUM 3.4 MMOL/L (3.6-5.0)
[2022-03-15 18:23] VITALS: BP_SYST 129; BP_SYST 134; BP_SYST 143; BP_DIAS 80; BP_DIAS 86; BP_DIAS 89
[2022-03-15 18:24] LABS: CALCIUM 9.4 MG/DL (8.5-10.1)
[2022-03-15 18:25] LABS: PROTHROMBIN TIME PATIENT 13.1 SEC (12.2-14.7)
[2022-03-15 18:27] LABS: BILIRUBIN,TOTAL 0.2 MG/DL (0.1-1.0)
[2022-03-15 18:28] LABS: CREATININE SERUM 0.81 MG/DL (0.60-1.30)
[2022-03-15] MEDS ORDERED: NS IV 1000 ML 1,000 ML IV SCH (18:30)
[2022-03-15 18:31] LABS: MAGNESIUM 1.8 MG/DL (1.6-2.4)
[2022-03-15 18:34] LABS: BILIRUBIN,URINE NEGATIVE (NEGATIVE); CLARITY,URINE SL CLOUDY; COLOR,URINE YELLOW; GLUCOSE, URINE (UA) NEGATIVE (NEGATIVE); KETONES,URINE NEGATIVE (NEGATIVE); LEUKOCYTE ESTERASE ,URINE TRACE (NEGATIVE); NITRITE,URINE NEGATIVE (NEGATIVE); PROTEIN,URINE NEGATIVE (NEGATIVE)
--- NOTE | 2022-03-15 18:38 | ED General ---
General Chief Complaint: General Problems/Pain Stated Complaint: LOW HEMOGLOBIN,CONFUSION,WEAKNESS,SOA Nursing Triage Note: SENT OVER FROM [facility] WITH LOW HMG OF 6.8, SOA, AND CONFUSION. PT STATES SHE HAS A HX OF LOW HMG AND BLOOD TRANSFUSIONS. Source of Information: Patient (SOMEWHAT DIFFICULT HISTORIAN, GIVES VERY MINIMAL INFORMATION AND FALLS ASLEEP MID SENTENCE. ) History of Present Illness Date Seen by Provider: Mar 15, 2022 Time Seen by Provider: 18:05 Initial Comments PT ARRIVES VIA POV--SENT HERE FROM [facility] WALK IN [facility] C/O BEING TIRED FOR THE LAST FEW DAYS C/O SHORTNESS OF BREATH STATES SHE IS "REALLY CONFUSED" NO PAIN ANYWHERE NO DIZZINESS NO GI SYMPTOMS NO HEADACHE NO VISION CHANGES NO PARESTHESIAS OR MOTOR DEFICITS NO CHEST PAIN NO PALPITATIONS NO SYNCOPE NO URINARY SYMPTOMS NO COUGH OR URI SYMPTOMS NO FEVER/SWEATS/CHILLS HAS NOT SOUGHT CARE UNTIL TODAY WENT TO [facility]ALK IN [facility] TODAY FOR THIS PROBLEM, HGB WAS 6,8, SO SENT TO ER. PT HAS HISTORY OF ANEMIA, AND HAS HAD TRANSFUSIONS IN THE PAST PT STATES SHE HAS BEEN ADVISED OF NEED FOR HYSTERECTOMY DUE THIS PROBLEM, HER PERIODS ARE VERY HEAVY, BUT HAS NEVER FOLLOWED UP ADVISED LMP 3 WEEKS AGO, NORMAL FOR HER. NO CONTROL. PT DOES NOT TAKE A MULTIVITAMIN OR ANY IRON SUPPLEMENTS PCP: DR. SHER AT [facility] Allergies and Home Medications Allergies Coded Allergies: ciprofloxacin (Unverified Allergy, Mild, RASH, 08/02/19) Patient Home Medication List Cefdinir (Cefdinir) 300 Mg Capsule, 300 MG PO BID Prescribed by: SHIRLENE JUAN on 01/02/22 0348 Cephalexin (Cephalexin) 500 Mg Capsule, 500 MG PO QID Prescribed by: CATARINO ALCALA on 09/12/21 1756 Hydrocodone Bit/Acetaminophen (HYDROcodone/APAP 5 MG/325 MG TAB) 1 Tab Tab, 1 TAB PO Q6H Prescribed by: Daphney Dodge on 01/24/22 1326 Ondansetron (Ondansetron Odt) 4 Mg Tab.rapdis, 4 MG SL Q4H PRN for NAUSEA/VOMITING Prescribed by: SHIRLENE JUAN on 01/02/22 0348 Sulfamethoxazole/Trimethoprim (Bactrim Ds Tablet) 1 Each Tablet, 1 EACH PO BID Prescribed by: REGGIE CAMPBELL on 10/23/212229 Review of Systems Review of Systems Constitutional: see HPI, malaise, weakness EENTM: no symptoms reported Respiratory: see HPI, dyspnea on exertion, short of breath Cardiovascular: no symptoms reported Gastrointestinal: no symptoms reported Genitourinary: see HPI; No dysuria : No LMP: Mar 01, 2022 Musculoskeletal: no symptoms reported Skin: no symptoms reported Psychiatric/Neurological: No Symptoms Reported Hematologic/Lymphatic: See HPI, Anemia Immunological/Allergic: no symptoms reported Past Rvkqyrg-Bsbftk-Anfgzn Hx Patient Social History Tobacco Use?: Yes Tobacco type used: Cigarettes Smoking Status: Current Everyday Smoker Smokeless Tobacco Frequency: Current Everyday User Use of E-Cig and/or Vaping dev: Yes E-Cig or Vaping type used: Nicotine Substance use?: Yes Alcohol Use?: Yes Immunizations Up To Date Tetanus Booster (TDap): Unknown PED Vaccines UTD: Yes First/Initial COVID19 Vaccinat: denies Second COVID19 Vaccination Vineet: denies Third COVID19 Vaccination Date: denies Seasonal Allergies Seasonal Allergies: No Past Medical History Surgery/Hospitalization HX: X 2,TONSILLECTOMY, WISDOM TEETH, EGD/COLONOSCOPY > 10 YEARS AGO CHRONIC BLOOD LOSS, BLOOD TRANSFUSION, HX SUBSTANCE ABUSE Surgeries: Yes Section, Tonsillectomy Respiratory: No Currently Using CPAP: No Currently Using BIPAP: No Cardiac: No Neurological: No Last Menstrual Period: Feb 22, 2022 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: Yes Female 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: Menstrual Problems Sexually Transmitted Disease: No HIV/AIDS: No Genitourinary: Yes (HX UTI'S) Kidney Infection, UTI-Chronic Gastrointestinal: Yes Colitis Musculoskeletal: Yes Scoliosis, Chronic Back Pain Endocrine: No HEENT: Yes (GLASSES; S/P TONSILLECTOMY) Tonsilitis Loss of Vision: Denies Hearing Impairment: Denies Cancer: No Psychosocial: Yes (POLYSUBSTANCE ABUSE) Integumentary: No Blood Disorders: Yes (ANEMIA) Adverse Reaction/Blood Tranf: No (HAS HAD BLOOD WITH NO REACTION) Family Medical History Diabetes mellitus maternal grandfather paternal grandfather Gastroenteritis 19 FATHER paternal grandmother ( from sepsis at age 85) maternal grandfather Hypertension 19 MOTHER maternal grandmother maternal grandfather Neoplasm maternal aunt (breast cancer) Cancer, Hypertension SOCIAL HISTORY: -SMOKES 1 PPD, ALSO VAPES -ETOH--STATES SHE USED TO DRINK A 30 PACK / DAY, CLAIMS NO ETOH X 1 1/2 YEARS, PER PT ON 03/15/22 -DRUGS--STATES SHE HAS USED "EVERYTHING" ( WILL NOT ELABORATE ON THIS FURTHER), BUT DENIES IV DRUG USE, AND CLAIMS NO USE X 1 YEAR ON 03/15/22 UDS + FOR THC 03/15/22 TESTED + FOR COVID ON 03/15/22 PAST SURGICAL HISTORY: -TONSILLECTOMY -WISDOM TEETH - X 2 -EGD/COLONOSCOPY > 10 Y EARS AGO MULTITUDE OF VISITS FOR VARIOUS COMPLAINTS Physical Exam Vital Signs Vital Signs - First Documented 03/15/22 16:55 Temp 36.8 Pulse 94 Resp 16 B/P (MAP) 145/97 (113) Pulse Ox 100 O2 Delivery Room Air Capillary Refill : Less Than 3 Seconds Height, Weight, BMI Height: 5'3.00" Weight: 120lbs. 3.0oz. 54.036664ky; 23.00 BMI Method:Estimated General Appearance: No Apparent Distress, WD/WN, Other (SLEEPING SOUNDLY, WAKES EASILY BUT FALLS ASLEEP MID-SENTENCE. KEEPS EYES CLOSED AT ALL TIMES. 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 Skin: Warm/Dry, Pallor; No Rash Progress/Results/Core Measures Suspected Sepsis SIRS Temperature: Pulse: 92 Respiratory Rate: 16 Laboratory Tests 03/15/22 17:20: White Blood Count 10.1 03/16/22 02:01: White Blood Count 8.1 Blood Pressure 143 /89 Mean: 107 Laboratory Tests 03/15/22 17:20: Creatinine 0.81, INR Comment 1.0, Platelet Count 263, Total Bilirubin 0.2 03/16/22 02:01: Platelet Count 190 Results/Orders Lab Results Laboratory Tests Test 03/15/22 17:20 03/15/22 18:26 03/16/22 02:01 Range/Units White Blood Count 10.1 8.1 4.3-11.0 10^3/uL Red Blood Count 3.49 L 3.88 3.80-5.11 10^6/uL Hemoglobin 6.9 *L 8.5 #L 11.5-16.0 g/dL Hematocrit 24 L 28 L 35-52 % Mean Corpuscular Volume 68 L 72 L 80-99 fL Mean Corpuscular Hemoglobin 20 L 22 L 25-34 pg Mean Corpuscular Hemoglobin Concent 29 L 30 L 32-36 g/dL Red Cell Distribution Width 21.4 H 23.9 H 10.0-14.5 % Platelet Count 263 190 130-400 10^3/uL Mean Platelet Volume 10.6 9.0-12.2 fL Immature Granulocyte % (Auto) 0 % Neutrophils (%) (Auto) 70 42-75 % Lymphocytes (%) (Auto) 20 12-44 % Monocytes (%) (Auto) 6 0-12 % Eosinophils (%) (Auto) 3 0-10 % Basophils (%) (Auto) 1 0-10 % Neutrophils # (Auto) 7.1 1.8-7.8 10^3/uL Lymphocytes # (Auto) 2.0 1.0-4.0 10^3/uL Monocytes # (Auto) 0.6 0.0-1.0 10^3/uL Eosinophils # (Auto) 0.3 0.0-0.3 10^3/uL Basophils # (Auto) 0.1 0.0-0.1 10^3/uL Immature Granulocyte # (Auto) 0.0 0.0-0.1 10^3/uL Prothrombin Time 13.1 12.2-14.7 SEC INR Comment 1.0 0.8-1.4 Activated Partial Thromboplast Time 30 24-35 SEC Sodium Level 140 135-145 MMOL/L Potassium Level 3.4 L 3.6-5.0 MMOL/L Chloride Level 107 98-107 MMOL/L Carbon Dioxide Level 20 L 21-32 MMOL/L Anion Gap 13 5-14 MMOL/L Blood Urea Nitrogen 22 H 7-18 MG/DL Creatinine 0.81 0.60-1.30 MG/DL Estimat Glomerular Filtration Rate 95 BUN/Creatinine Ratio 27 Glucose Level 78 70-105 MG/DL Calcium Level 9.4 8.5-10.1 MG/DL Corrected Calcium 9.4 8.5-10.1 MG/DL Magnesium Level 1.8 1.6-2.4 MG/DL Total Bilirubin 0.2 0.1-1.0 MG/DL Aspartate Amino Transf (AST/SGOT) 14 5-34 U/L Alanine Aminotransferase (ALT/SGPT) 13 0-55 U/L Alkaline Phosphatase 78 40-136 U/L Total Protein 7.0 6.4-8.2 GM/DL Albumin 4.0 3.2-4.5 GM/DL Serum Test, Qualitative NEGATIVE NEGATIVE Serum Alcohol < 10 <10 MG/DL Urine Color YELLOW Urine Clarity SL CLOUDY Urine pH 6.0 5-9 Urine Specific [place] >=1.030 1.016-1.022 Urine Protein NEGATIVE NEGATIVE Urine Glucose (UA) NEGATIVE NEGATIVE Urine Ketones NEGATIVE NEGATIVE Urine Nitrite NEGATIVE NEGATIVE Urine Bilirubin NEGATIVE NEGATIVE Urine Urobilinogen 0.2 < = 1.0 MG/DL Urine Leukocyte Esterase TRACE H NEGATIVE Urine RBC (Auto) NEGATIVE NEGATIVE Urine RBC NONE /HPF Urine WBC RARE /HPF Urine Squamous Epithelial Cells 2-5 /HPF Urine Crystals NONE /LPF Urine Bacteria TRACE /HPF Urine Casts NONE /LPF Urine Mucus NEGATIVE /LPF Urine Culture Indicated NO Urine Opiates Screen NEGATIVE NEGATIVE Urine Oxycodone Screen NEGATIVE NEGATIVE Urine Methadone Screen NEGATIVE NEGATIVE Urine Propoxyphene Screen NEGATIVE NEGATIVE Urine Barbiturates Screen NEGATIVE NEGATIVE Ur Tricyclic Antidepressants Screen NEGATIVE NEGATIVE Urine Phencyclidine Screen NEGATIVE NEGATIVE Urine Amphetamines Screen NEGATIVE NEGATIVE Urine Methamphetamines Screen NEGATIVE NEGATIVE Urine Benzodiazepines Screen NEGATIVE NEGATIVE Urine Cocaine Screen NEGATIVE NEGATIVE Urine Cannabinoids Screen POSITIVE H NEGATIVE Influenza Type A (RT-PCR) Not Detected Not Detecte Influenza Type B (RT-PCR) Not Detected Not Detecte SARS-CoV-2 RNA (RT-PCR) Detected H Not Detecte Percent Immature Platelet Fraction 7.0 0.0-7.6 % My Orders Orders - QUIN GONZALEZ DO Ed Iv/Invasive Line Start (03/15/22 18:09) Urine Bedside (03/15/22 18:09) Ekg Tracing (03/15/22 18:09) O2 (03/15/22 18:09) Monitor-Rhythm Ecg Trace Only (03/15/22 18:09) Orthostatic Vital Signs (Adult (03/15/22 18:09) Cbc With Automated Diff (03/15/22 18:09) Comprehensive Metabolic Panel (03/15/22 18:09) Magnesium (03/15/22 18:09) Protime With Inr (03/15/22 18:09) Partial Thromboplastin Time (03/15/22 18:09) Ua Culture If Indicated (03/15/22 18:09) Chest 1 View, Ap/Pa Only (03/15/22 18:09) Covid 19 Inhouse Test (03/15/22 18:09) Influenza A And B By Pcr (03/15/22 18:09) Isolation Central Supply Req (03/15/22 18:09) Alcohol (03/15/22 18:16) Drug Screen Stat (Urine) (03/15/22 18:16) Hcg,Qualitative Serum (03/15/22 18:16) Red Cells Leukocytes Reduced (03/15/22 18:16) Type And Screen (03/15/22 18:16) Ed Iv/Invasive Line Start (03/15/22 18:16) Ns Iv 1000 Ml (Sodium Chloride 0.9%) (03/15/22 18:30) Ns Iv 500 Ml (Sodium Chloride 0.9%) (03/15/22 19:35) Cbc No Diff (03/16/22 00:21) Medications Given in ED Current Medications Medications Dose Ordered Sig/Nicole Route Start Time Stop Time Status Last Admin Dose Admin Sodium Chloride 500 ml @ STK-MED ONCE .ROUTE 03/15/22 19:35 03/15/22 19:37 DC 03/15/22 21:15 25 MLS/HR Vital Signs/I&O 03/15/22 03/15/22 03/15/22 03/15/22 16:55 18:23 21:15 21:30 Temp 36.8 37.0 37.0 Pulse 94 83 79 79 94 92 Resp 16 16 14 B/P (MAP) 145/97 (113) 129/80 (96) 132/77 127/84 134/86 (102) 143/89 (107) Pulse Ox 100 97 98 O2 Delivery Room Air Room Air Room Air 03/15/22 03/15/22 03/15/22 03/16/22 22:53 23:00 23:15 00:20 Temp 36.8 36.8 36.6 36.8 Pulse 69 90 84 79 Resp 14 18 14 B/P (MAP) 116/72 122/79 141/90 141/87 Pulse Ox 95 99 98 O2 Delivery Room Air Room Air Room Air Room Air 03/16/22 00:00 Intake Total 1270 ml Balance 1270 ml Capillary Refill : Less Than 3 Seconds Blood Pressure Mean: 107 Progress Note : Progress Note ORTHOSTATICS--NO SIGNIFICANT DROP IN BP OR INCREASE IN HEART RATE, AND PT HAD NO SYMPTOMS WITH ORTHOSTATICS. PT IS ABLE TO WALK WITHOUT DIFFICULTY GIVEN IV FLUIDS BLOOD TRANSFUSION ORDERED. MARKED DELAY IN OBTAINING BLOOD FROM LAB CALLED LAB AT 2011 REGARDING THIS--THEY REPORT "THEY'RE STILL WORKING ON IT" PT TRANSFUSED 2 UNITS OF PRBC'S NO ADVERSE REACTION MARKED DELAY IN OBTAINING REPEAT CBC RESULTS POST-TRANSFUSION. ON REVIEWING TEST RESULTS, AND + COVID TEST, PT NOW INFORMS ME THAT SHE WAS DX WITH COVID 3 WEEKS AGO PT WAS SEEN HERE IN ER 02/20/22 FOR COVID SYMPTOMS AND TESTED +, NO TREATMENT AND THOSE SYMPTOMS RESOLVED. ECG Initial ECG Impression Date: Mar 15, 2022 Initial ECG Impression Time: 18:19 Initial ECG Rate: 85 Initial ECG Rhythm: Normal Sinus Diagnostic Imaging Comments CXR--PER RADIOLOGIST REPORT AT 1916 FINDINGS: Heart size and pulmonary vascularity are within normal limits, and the lungs are clear, bilaterally. IMPRESSION: Unremarkable chest. Reviewed: Reviewed by Me Departure Impression Primary Impression: Acute on chronic anemia Additional Impression: RECENT COVID INFECTION Disposition: 01 HOME, SELF-CARE Condition: Improved Departure-Patient Inst. Decision time for Depature: 02:28 Referrals: RAYMON SHER MD (PCP/Family) Primary Care Physician Patient Instructions: Anemia Caused by Low Iron, Adult (DC) Add. Discharge Instructions: HOME REST INCREASE IRON IN YOUR DIET TAKE MULTIVITAMIN WITH IRON DAILY FOLLOW UP WITH [facility] NEXT WEEK FOR FURTHER CARE All discharge instructions reviewed with patient and/or family. Voiced understanding. QUIN GONZALEZ DO Mar 15, 2022 18:38
[2022-03-15 18:41] LABS: BACTERIA,URINE TRACE /HPF; WBC,URINE RARE /HPF
[2022-03-15 19:06] LABS: AMPHETAMINE SCREEN, URINE NEGATIVE (NEGATIVE); BARBITURATE SCREEN URINE NEGATIVE (NEGATIVE); BENZODIAZEPINES SCREEN URINE NEGATIVE (NEGATIVE); CANNABINOID SCREEN, URINE POSITIVE (NEGATIVE); COCAINE SCREEN URINE NEGATIVE (NEGATIVE); METHADONE STAT NEGATIVE (NEGATIVE); OPIATE SCREEN URINE NEGATIVE (NEGATIVE); OXYCODONE STAT NEGATIVE (NEGATIVE); PROPOXYPHENE STAT NEGATIVE (NEGATIVE); TRICYCLIC ANTIDEPRESSANTS SCRE NEGATIVE (NEGATIVE)
--- NOTE | 2022-03-15 19:09 | Diagnostic Imaging Report ---
INDICATION: Dyspnea. EXAMINATION: AP view of the chest was obtained. COMPARISON: Study of 09/17/2021. FINDINGS: Heart size and pulmonary vascularity are within normal limits, and the lungs are clear, bilaterally. IMPRESSION: Unremarkable chest. Dictated by: Dictated on workstation # [id number]
[2022-03-15] MEDS ORDERED: NS IV 500 ML 500 ML ONE (19:35)
[2022-03-15 21:15] VITALS: BP 132/77
[2022-03-15 21:30] VITALS: BP 127/84
[2022-03-15 22:53] VITALS: BP 116/72
[2022-03-15 23:00] VITALS: BP 122/79
[2022-03-15 23:15] VITALS: BP 141/90
[2022-03-16 00:20] VITALS: BP 141/87
[2022-03-16 02:15] LABS: HEMOGLOBIN 8.5 g/dL (11.5-16.0); MEAN PLATELET VOLUME 10.6 fL (9.0-12.2); WHITE BLOOD COUNT 8.1 10^3/uL (4.3-11.0)
== END 2022-03-16 02:35 | disposition home or self-care (01) ==
LOC: EDUNIT# 16:51 → ER 16:53
DX: U07.1 COVID-19 (principal); D64.9 Anemia, unspecified; F17.210 Nicotine dependence, cigarettes, uncomplicated; F17.290 Nicotine dependence, other tobacco product, uncomplicated; Z28.310 Unvaccinated for COVID-19
CPT/HCPCS: 36430; 71045; 80053; 80306; 81000; 83735; 84703 ×2; 85025; 85027; 85610; 85730; 86850; 86870; 86900; 86901; 86902; 86920; 87636; 93005; 93041; 99285; G0480; P9016; 36415; 80320

== ENCOUNTER 2022-06-14 05:06 | Emergency (ER) | payer MEDICAID ==
[2022-06-14] MEDS ORDERED: ONDANSETRON 4 MG (ZOFRAN) ORAL DISSOLVE TAB PO STA (05:33)
--- NOTE | 2022-06-14 05:39 | ED Head Injury ---
General Chief Complaint: Head/Cervical Problems Stated Complaint: HIT HEAD,DIZZY,NAUSEA Nursing Triage Note: Pt presents to ED per POV reporting hitting her head hard on a door while playing with her 2 y/o old. Pt pulling her child around on a blanket 1 hr ago and turned quickly hitting head on door behind her. Pt reports dizzy and nausea without LOC. Hematoma to forehead noted. Pt recently tested herself positive on home preg test and thinks she is 11 wks possibly. Source: patient Exam Limitations: no limitations History of Present Illness Date Seen by Provider: Jun 14, 2022 Time Seen by Provider: 05:10 Initial Comments 36-year-old female with no pertinent past medical history coming in after she hit her forehead on a door corner about an hour and a half prior to this interview when she was pulling her child around on a blanket. Did not pass out, remembers all events, no vomiting, no seizure, does not take any blood thinners. No weakness, numbness, or any other concerns. Also believes she is around 11 weeks and does have someone she can follow-up with. Allergies and Home Medications Allergies Coded Allergies: ciprofloxacin (Unverified Allergy, Mild, RASH, 08/02/19) Patient Home Medication List Home Medication List Reviewed: Yes No Active Prescriptions or Reported Meds Review of Systems Review of Systems Constitutional: No fever Eyes: No Symptoms Reported Ears, Nose, Mouth, Throat: no symptoms reported Respiratory: no symptoms reported Cardiovascular: no symptoms reported Gastrointestinal: nausea; No vomiting Genitourinary: no symptoms reported Musculoskeletal: no symptoms reported Skin: no symptoms reported Psychiatric/Neurological: See HPI Endocrine: No Symptoms Reported Past Oyqfjct-Jqqlcm-Gybnhh Hx Patient Social History Tobacco Use?: Yes Smoking Status: Smoker Current Status UNK Use of E-Cig and/or Vaping dev: Yes E-Cig or Vaping type used: Nicotine Use of E-Cig and/or Vaping Ez: Current Everyday User Substance use?: No Additional substance use comme: prior history Alcohol Use?: No Pt feels they are or have been: No Immunizations Up To Date Tetanus Booster (TDap): Unknown PED Vaccines UTD: Yes Influenza Vaccine Up-to-Date: No; Not Current First/Initial COVID19 Vaccinat: denies Second COVID19 Vaccination Vineet: denies Third COVID19 Vaccination Date: denies Seasonal Allergies Seasonal Allergies: No Past Medical History Surgery/Hospitalization HX: X 2, TONSILLECTOMY, WISDOM TEETH, EGD/COLONOSCOPY > 10 YEARS AGO CHRONIC BLOOD LOSS, BLOOD TRANSFUSION, HX SUBSTANCE ABUSE Surgeries: Yes Section, Tonsillectomy Respiratory: No Currently Using CPAP: No Currently Using BIPAP: No Cardiac: No Neurological: No 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: Yes Female 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: Menstrual Problems Sexually Transmitted Disease: No HIV/AIDS: No Genitourinary: Yes (HX UTI'S) Kidney Infection, UTI-Chronic Gastrointestinal: Yes Colitis Musculoskeletal: Yes Scoliosis, Chronic Back Pain Endocrine: No HEENT: Yes (GLASSES; S/P TONSILLECTOMY) Tonsilitis Loss of Vision: Denies Hearing Impairment: Denies Cancer: No Psychosocial: Yes (POLYSUBSTANCE ABUSE) Integumentary: No Blood Disorders: Yes (ANEMIA) Adverse Reaction/Blood Tranf: No (HAS HAD BLOOD WITH NO REACTION) Family Medical History Diabetes mellitus maternal grandfather paternal grandfather Gastroenteritis 19 FATHER paternal grandmother ( from sepsis at age 85) maternal grandfather Hypertension 19 MOTHER maternal grandmother maternal grandfather Neoplasm maternal aunt (breast cancer) Cancer, Hypertension SOCIAL HISTORY: -SMOKES 1 PPD, ALSO VAPES -ETOH--STATES SHE USED TO DRINK A 30 PACK / DAY, CLAIMS NO ETOH X 1 1/2 YEARS, PER PT ON 03/15/22 -DRUGS--STATES SHE HAS USED "EVERYTHING" ( WILL NOT ELABORATE ON THIS FURTHER), BUT DENIES IV DRUG USE, AND CLAIMS NO USE X 1 YEAR ON 03/15/22 UDS + FOR THC 03/15/22 TESTED + FOR COVID ON 03/15/22 PAST SURGICAL HISTORY: -TONSILLECTOMY -WISDOM TEETH - X 2 -EGD/COLONOSCOPY > 10 Y EARS AGO MULTITUDE OF VISITS FOR VARIOUS COMPLAINTS Physical Exam Vital Signs Vital Signs - First Documented 06/14/22 05:10 Temp 36.5 Pulse 76 Resp 16 B/P (MAP) 118/80 (93) Pulse Ox 100 O2 Delivery Room Air Capillary Refill : Less Than 3 Seconds Height, Weight, BMI Height: 5'3.00" Weight: 120lbs. 3.0oz. 54.462176rm; 23.00 BMI Method:Estimated General Appearance: WD/WN, no apparent distress HEENT: PERRL/EOMI, TMs normal, pharynx normal, other (Small hematoma to the left front forehead with no palpable skull fracture) Neck: non-tender, full range of motion, supple, normal inspection Cardiovascular: regular rate, rhythm, no edema, no murmur Respiratory: chest non-tender, lungs clear, normal breath sounds, no respiratory distress, no accessory muscle use Gastrointestinal: normal bowel sounds, non tender, soft; No distended, No guarding, No rebound Back: normal inspection, no CVA tenderness, no vertebral tenderness Extremities: normal range of motion, non-tender, normal inspection, no pedal edema, no calf tenderness, normal capillary refill Psychiatric: alert, oriented x 3 Crainal Nerves: normal hearing, normal speech, PERRL Coordination/Gait: normal finger to nose, normal gait Motor/Sensory: no motor deficit, no sensory deficit, no pronator drift Skin: normal color, warm/dry Lymphatic: no adenopathy Teagan Coma Score Best Eye Response: (4) Open Spontaneously Best Verbal Response: (5) Oriented Best Motor Response: (6) Obeys Commands Progress/Results/Core Measures Results/Orders My Orders Orders - REINA SEWELL MD Ondansetron Oral Dissolve Tab (Zofran (06/14/22 05:33) Acetaminophen Tablet (Tylenol Tablet) (06/14/22 05:45) Vital Signs/I&O 06/14/22 05:10 Temp 36.5 Pulse 76 Resp 16 B/P (MAP) 118/80 (93) Pulse Ox 100 O2 Delivery Room Air Blood Pressure Mean: 93 Progress Progress Note : Progress Note 36-year-old female with above history coming in due to hitting the front of her head on a door. ABCs were intact, GCS 15, vital stable on presentation. She is [place] head injury rule and cervical spine rule negative, and I do not believe CT head or cervical spine are indicated at this time. I discussed the risk versus benefits of getting these images, especially while being . Patient is agreeable to not getting the images at this time. In regards to her possible , she does have Dr. Valles to follow-up with. She denies any vaginal bleeding, lower abdominal cramping or pain, or any other related concerns at this time. I will refer her to her outpatient physician. I discussed that she does have symptoms consistent with a concussion and how to manage the symptoms. She was then discharged home in stable condition with strict return precautions. Given nausea medicines in general for which she has had some. She can have Zofran if this medicines do not work. Departure Impression Primary Impression: Concussion without loss of consciousness Qualified Codes: S06.0X0A - Concussion without loss of consciousness, initial encounter Additional Impression: Possible Disposition: HOME, SELF-CARE Condition: Stable Departure-Patient Inst. Decision time for Depature: 05:38 Referrals: RAYMON VALLES MD (PCP/Family) Primary Care Physician Patient Instructions: Concussion, Adult ED Add. Discharge Instructions: You do have a concussion. Symptoms of this include headache, nausea, vomiting, dizziness, lightheadedness, some people have difficulty sleeping, some people sleep more, and other symptoms. Take Tylenol as needed for headache or pain since ibuprofen is not safe during . 2 prescriptions were sent for nausea. Doxylamine is good and safe during . Does typically make people sleepy. If this is not working for you, then I recommend trying the Zofran after that which was also sent. Please follow-up with Dr. Valles in regards to your . Scripts Ondansetron (Ondansetron Odt) 4 Mg Tab.rapdis 4 MG SL Q6H PRN for NAUSEA/VOMITING-2ND LINE for 5 Days, #20 TAB Prov: REINA SEWELL MD 06/14/22 Doxylamine Succinate (Unisom) 25 Mg Tablet 25 MG PO BID PRN for NAUSEA-1ST LINE for 14 Days, #28 TAB Prov: REINA SEWELL MD 06/14/22 Work/School Note: Work Release Form Date Seen in the Emergency Department: Jun 14, 2022 Return to Work: Jun 15, 2022 Restrictions: No Restrictions REINA SEWELL MD Jun 14, 2022 05:39
[2022-06-14] MEDS ORDERED: DOXY25TA56 PO (05:42)
[2022-06-14] MEDS ORDERED: ONDA4TAB11 SL (05:42)
[2022-06-14 05:44] VITALS: BP 118/80
[2022-06-14] MEDS ORDERED: ACETAMINOPHEN 500 MG TAB (TYLENOL) PO ONE (05:45)
== END 2022-06-14 05:44 | disposition home or self-care (01) ==
LOC: EDUNIT# 05:06 → ER FS 05:08
DX: S06.0X0A Concussion without loss of consciousness, initial encounter (principal); F17.210 Nicotine dependence, cigarettes, uncomplicated; F17.290 Nicotine dependence, other tobacco product, uncomplicated; Z28.310 Unvaccinated for COVID-19; W22.8XXA Striking against or struck by other objects, initial encounter
CPT/HCPCS: 99283

== ENCOUNTER 2022-09-19 11:47 | Outpatient (CLI) | payer MEDICAID ==
[~2022-09-19] VITALS: Ht 157.5 cm; Wt 60.5 kg
[~2022-09-19 11:47] MED LIST changes: +DOXY25TA56 PO
[2022-09-19 11:50] VITALS: BP 102/73
[2022-09-19 12:00] VITALS: BP 107/78
[2022-09-19] MEDS ORDERED: D5 LR IV SOLUTION 1,000 ML IV ONE (12:08)
[2022-09-19] MEDS ORDERED: D5 LR IV SOLUTION 1,000 ML IV SCH (12:15)
[2022-09-19 12:24] VITALS: BP 107/78
[2022-09-19 12:30] VITALS: BP 99/65
--- NOTE | 2022-09-19 12:33 | History & Physical-OB ---
OB - Chief Complaint & HPI Date/Time Date of Admission: Date of Admission: 09/19/22 Date seen by a Provider: September 19, 2022 Time Seen by a Provider: 12:25 Chief Complaint/History OB-Reason for Admission/Chief: Obstetrical Complication (vaginal bleeding ) Hx : 10 Hx Para: 5 Expected Date of Delivery: Dec 28, 2022 Gestational Age in Weeks: 25 Gestational Age in Days: 5 Other reason for admission: This 37yo presents to L&D @ 25w5d with c/o vaginal bleeding Pt has complete placenta previa and states that over the last week she started having heavy bleeding she had call the EMS and was send to [place] and was admitted there and discharged after two days. She states that she had stopped bleeding while in the hospital but as soon as she got home she started bleeding again. She called the office today with the bleeding and was instructed to come in. In the office her bleeding was moderate. US in the office showed complete previa w/o visible abruption and no collection of fluid. Fetus was breech presentation FHT 145bpm. Pt is being follwed by MFM at [facility] Nurse Assessment Rev: Yes History of Labs H/H 9.3/29.0 plts 216 Allergies and Home Medications Allergies Coded Allergies: ciprofloxacin (Unverified Allergy, Mild, RASH, 08/02/19) Patient Home Medication List Home Medication List Reviewed: Yes Doxylamine Succinate (Unisom) 25 Mg Tablet, 25 MG PO BID PRN for NAUSEA-1ST LINE Prescribed by: REINA SEWELL on 06/14/22541 Ondansetron (Ondansetron Odt) 4 Mg Tab.rapdis, 4 MG SL Q6H PRN for NAUSEA/VOMITING-2ND LINE Prescribed by: REINA SEWELL on 06/14/22 05 OB - History Hx of Present Care: Yes Ultrasounds: Abnormal US findings (complete previa) Obstetrical Complications: None Medical Complications: None Information Induced Hypertension: No Maternal Gestational Diabetes: No Hemorrhage: Yes Obstetrical History Hx : 10 Hx Para: 5 Hx # Term Pregnancies: 5 Number of Living Children: 5 Hx Total # of Abortions (Spona: 4 Hx Multiple Gestation: No Hx Ectopic : No Hx Complication: Yes Hx Hemorrhage: Yes (received PRBCs ) Delivery History Hx Section: Yes (x2) Hx Blood Disorders: No Adverse Rxn to Tranfusion: No (HAS HAD BLOOD WITH NO REACTION) Patient Past Medical History Colitis Substance Abuse Social History/Family History Alcohol Use: Denies Use Recreational Drug Use: Yes Smoking Cessation: Current every day smoker 2nd Hand Smoke Exposure: Yes Immunizations Influenza Vaccine Up-to-Date: No; Not Current First/Initial COVID19 Vaccine: denies Second COVID19 Vaccination: denies Third COVID19 Vaccination Date: denies Hepatitis A: Yes Hepatitis B: Yes Tetanus Booster (TDap): Unknown OB - Admission Exam Physical Exam Vitals: Vital Signs 09/19/22 12:24 Temp 36.4 Pulse 84 Resp 18 B/P (MAP) 107/78 Pulse Ox 98 O2 Delivery Room Air HEENT: NCAT Heart: Rhythm Normal Lungs: Clear Abdomen: Gravid Extremities: Normal Cervical Dilatation: other (Not done d/t previa) Membranes: Intact Heart Rate: 140's Accelerations: Accelerations Present Short Term Variability: Present Contractions on Admission: None OB - Assessment/Plan/Diagnosis Assessment Assessment: IUP - , observation, vaginal bleeding Admission Dx IUP @ 25w5d complete placenta previa Vaginal bleeding advanced maternal age grand multigravida History of drug use Admission Status: Other (Clinic) Plan Plan: Other (plan for transfer to [facility] care) Problems: (1) 25 weeks gestation of Onset Date: ~ 09/2022 Assessment & Plan: IUP@ 25w5d d/w OB [employer] and pt will transfer to [facility] BTMZ 12mg IM (2) Placenta previa antepartum Assessment & Plan: stable at this time but still bleeding decreased (3) Anemia affecting 10th Assessment & Plan: H/H 9.3/29.0 PLTS 216 (4) PREVIOUS (5) Advanced maternal age in multigravida Qualifiers: Qualified Codes: O09.522 - Supervision of elderly multigravida, second trimester Discharge Diagnosis Diagnosis: IUP@25w5d Complete placenta previa Vaginal bleeding Advanced maternal age Grand multigravida History of drug use Copy Copies To 1: CHRIS SULLIVAN VICTORIA A DO September 19, 2022 12:33
--- NOTE | 2022-09-19 12:56 | Short Stay Summary ---
Discharge Summary Hospital Course Was the Problem List Reviewed?: Yes Problems/Dx: (1) 25 weeks gestation of Assessment & Plan: IUP @ w5d Transfer to [facility] (2) Placenta previa antepartum (3) PREVIOUS Final Diagnosis: IUP@w5d Hospital Course Date of Admission: Admission Diagnosis : Family Physician/Provider: Cecy Valles MD Date of Discharge: 09/19/22 Discharge Diagnosis: [ ] Hospital Course: [ ] Labs and Pending Lab Test: Home Meds Active Ondansetron Odt (Ondansetron) 4 Mg Tab.rapdis 4 Mg SL Q6H PRN 5 Days Unisom (Doxylamine Succinate) 25 Mg Tablet 25 Mg PO BID PRN 14 Days Assessment/Pt Instructions IUP@w5d Complete placenta previa Vaginal bleeding Advanced maternal age Grand multigravida History of drug use Discharge Physical Examination General Appearance: Alert, Oriented X3 Respiratory: Clear to Auscultation Cardiovascular: Regular Rate Abdominal: Normal Bowel Sounds Extremities: No Clubbing, No Cyanosis, No Edema Skin: No Rashes Psych/Mental Status: Mental Status NL Allergies: Coded Allergies: ciprofloxacin (Unverified Allergy, Mild, RASH, 08/02/19) Discharge Summary Date of Admission 09/19/22 Date of Discharge Discharge Date: September 19, 2022 Admission Diagnosis IUP@25w5d Complete placenta previa Vaginal bleeding Advanced maternal age Grand multigravida History of drug use Discharge Diagnosis IUP@25w5d Complete placenta previa Vaginal bleeding Advanced maternal age Grand multigravida History of drug use (1) 25 weeks gestation of Onset Date: ~ 09/2022 Assessment & Plan: IUP @w5d d/w OB oncall Transfer to [facility] (2) Placenta previa antepartum (3) Anemia affecting 10th (4) Advanced maternal age in multigravida Qualifiers: Qualified Codes: O09.522 - Supervision of elderly multigravida, second trimester (5) PREVIOUS MAIA ROJAS DO September 19, 2022 12:52
[2022-09-19] MEDS ORDERED: BETAMETHASONE ACE/NA PHOS 6 MG/ML (CELESTONE SOLUSPAN) IM SCH (13:15)
[2022-09-19] MEDS ORDERED: BETAMETHASONE ACE/NA PHOS 6 MG/ML (CELESTONE SOLUSPAN) ONE (13:19)
[2022-09-19 13:45] LABS: AMPHETAMINE SCREEN, URINE NEGATIVE (NEGATIVE); BARBITURATE SCREEN URINE NEGATIVE (NEGATIVE); BENZODIAZEPINES SCREEN URINE NEGATIVE (NEGATIVE); CANNABINOID SCREEN, URINE POSITIVE (NEGATIVE); COCAINE SCREEN URINE NEGATIVE (NEGATIVE); METHADONE STAT NEGATIVE (NEGATIVE); OPIATE SCREEN URINE NEGATIVE (NEGATIVE); OXYCODONE STAT NEGATIVE (NEGATIVE); PROPOXYPHENE STAT NEGATIVE (NEGATIVE); TRICYCLIC ANTIDEPRESSANTS SCRE NEGATIVE (NEGATIVE)
[2022-09-20] MEDS ORDERED: BETAMETHASONE ACE/NA PHOS 6 MG/ML (CELESTONE SOLUSPAN) IM SCH (09:00)
== END 2022-09-19 14:17 | disposition home or self-care (01) ==
LOC: LDRP 11:47 → WSo 11:47
PROVIDERS: ATTEND Obstetrics & Gynecology
DX: O44.12 Complete placenta previa with hemorrhage, second trimester (principal); Z3A.25 25 weeks gestation of pregnancy
CPT/HCPCS: 80306; 96360; 96361; 96372; G0463; 99213